=== PATIENT | male | born 1965 | race Caucasian/White ===

== ENCOUNTER 2017-12-22 11:40 | Inpatient (IN) | payer OTHER ==
[~2017-12-22] VITALS: Ht 167.6 cm; Wt 103.3 kg
[~2017-12-22 11:40] MED LIST: ASPI81TA28 PO; CALC500C70 PO; GABA-112 PO; INSDGI SC; LISI-729 PO; METO25TA56 PO; METO50TA16 PO; NVLGI SC; SIMV40TA2 PO; TRAM-10 PO; VITAMIN D3 PO
[2017-12-22] MEDS ORDERED: ACETAMINOPHEN 500 MG TAB PO STA (11:47)
--- NOTE | 2017-12-22 11:55 | EMERGENCY ROOM VISIT NOTE ---
History Report prepared by Travis: Joan Pratt Under the Supervision of: Reji MajanoO. First contact with patient: 11:43 Chief Complaint: SHORTNESS OF BREATH Stated Complaint: RESPIRATORY History of Present Illness The patient is a 52 year old male who presents to the Emergency Room with complaints of persistent shortness of breath. The patient states that he was feeling fine yesterday but began having shortness of breath this morning acutely. He states his symptoms are very significant. His shortness of breath is worsened with any exertion but also has difficulty lying flat. The patient has been noticing lower extremity edema recently which appears to be worsened. He states that he was shoveling snow a few days ago and had some exertional chest pain which resolved spontaneously. The patient states that he has had lower extremity edema for quite some time but is never had congestive heart failure or pulmonary edema to his knowledge. The patient states his blood sugars have been normal for him recently. He denies having any recent falls or injuries. He denies having any fever but does complain of a dry cough which is nonproductive. The patient presented to the emergency department by EMS. His initial pulse ox was 88% on room air. He was given nitroglycerin prior to arrival and was found to have a very elevated blood pressure. Source of History: patient Onset: this morning Position: other (global) Quality: other (shortness of breath ) Timing: other (persistent ) Modifying Factors (Worsening): exertion Associated Symptoms: + cough (dry cough and nonproductive), No fevers Note: Associated symptoms include: lower extremity edema Review of Systems See HPI for pertinent positives & negatives. A total of 10 systems reviewed and were otherwise negative. Past Medical & Surgical Medical Problems: (1) Acute CHF (2) Bronchitis (3) Diabetes (4) Hyperglycemia (5) Hypertension Family History Cancer Diabetes mellitus Gallbladder disease Heart disease Hypertension Kidney disease Lung disease Social History Smoking Status: Former Smoker Alcohol Use: none Drug Use: none Marital Status: single, in relationship Occupation Status: employed Current/Historical Medications Scheduled Aspirin (Aspirin Ec), 81 MG PO QPM Calcium/Vitamin D (Os-Felipe 500 Plus D), 2 TAB PO QPM Gabapentin (Neurontin), 200 MG PO BID Insulin Aspart (Novolog Flexpen), 35 UNITS SC TIDM Insulin Glargine (Lantus Solostar), 80 UNITS SC QPM Lisinopril (Prinivil), 10 MG PO DAILY Metoprolol Tartrate (Lopressor) (Lopressor), 50 MG PO QPM Simvastatin (Zocor), 20 MG PO QPM Scheduled PRN Tramadol (Ultram), 1 TAB PO TID PRN for Pain Allergies Coded Allergies: No Known Allergies (Verified , 09/07/16) Physical Exam Vital Signs Date Time Temp Pulse Resp B/P (MAP) Pulse Ox O2 Delivery O2 Flow Rate FiO2 12/22/17 14:45 72 17 12/22/17 14:31 180/93 12/22/17 14:15 71 20 96 12/22/17 14:01 161/93 12/22/17 13:45 71 12 95 12/22/17 13:42 71 177/101 95 Room Air 12/22/17 13:00 71 176/83 97 Room Air 12/22/17 12:30 72 16 168/91 97 Nasal Cannula 2.0 12/22/17 12:18 72 12/22/17 12:01 94 Nasal Cannula 2.0 12/22/17 11:58 94 Nasal Cannula 2.0 12/22/17 11:58 94 Nasal Cannula 2.0 12/22/17 11:55 36.8 86 20 90 Room Air Physical Exam GENERAL: Patient is awake alert in no acute distress patient is resting comfortably and showing no signs of anxiety EYES: The conjunctivae are clear. The pupils are round and reactive. EARS, NOSE, MOUTH AND THROAT: The nose is without any evidence of any deformity. Mucous membranes are moist tongue is midline NECK: The neck is nontender and supple. RESPIRATORY: Shallow respirations are noted. There are diminished breath sounds noted throughout. Rales are noted throughout both lung thomas. CARDIOVASCULAR: Regular rate and rhythm noted there no murmurs rubs or gallops normal S1 normal S2 GASTROINTESTINAL: The abdomen is soft. Bowel sounds are present in all quadrants. Abdomen is nontender MUSCULOSKELETAL/EXTREMITIES: There is no evidence of gross deformity full range of motion is noted in the hips and shoulders SKIN: There is no obvious evidence of any rash. Significant lower extremity edema was noted bilaterally. NEUROLOGIC: Patient is awake alert and oriented x3. Medical Decision & Procedures ER Provider Diagnostic Interpretation: Radiology results as stated below per my review and radiologist interpretation: CHEST ONE VIEW PORTABLE CLINICAL HISTORY: Shortness of breath COMPARISON STUDY: 06/23/2014 FINDINGS: The heart is borderline enlarged. There is mild diffuse elevation of the interstitium. There is no lobar consolidation. There are no pleural effusions.[ IMPRESSION: Mild diffuse elevation of the interstitium. This is likely secondary to either a bilateral interstitial inflammatory process, or mild cardiogenic pulmonary edema. Clinical and radiographic follow-up is recommended. Electronically signed by: Kayode Soto M.D. 12/22/2017 12:27 PM Dictated Date/Time: 12/22/2017 12:26 PM Laboratory Results 12/22/17 12:05 Red Blood Count 4.80, Mean Corpuscular Volume 84.4, Mean Corpuscular Hemoglobin 28.8, Mean Corpuscular Hemoglobin Concent 34.1, Mean Platelet Volume 10.4, Neutrophils (%) (Auto) 49.9, Lymphocytes (%) (Auto) 37.0, Monocytes (%) (Auto) 7.5, Eosinophils (%) (Auto) 4.5, Basophils (%) (Auto) 0.8, Neutrophils # (Auto) 3.55, Lymphocytes # (Auto) 2.63, Monocytes # (Auto) 0.53, Eosinophils # (Auto) 0.32, Basophils # (Auto) 0.06 12/22/17 12:05 12/22/17 14:55 Test 12/22/17 11:47 12/22/17 12:05 12/22/17 12:55 12/22/17 14:55 Creatine Kinase MB Ratio (0-3.0) White Blood Count 7.11 K/uL (4.8-10.8) Red Blood Count 4.80 M/uL (4.7-6.1) Hemoglobin 13.8 g/dL (14.0-18.0) Hematocrit 40.5 % (42-52) Mean Corpuscular Volume 84.4 fL (80-100) Mean Corpuscular Hemoglobin 28.8 pg (25-34) Mean Corpuscular Hemoglobin Concent 34.1 g/dl (32-36) Platelet Count 198 K/uL (130-400) Mean Platelet Volume 10.4 fL (7.4-10.4) Neutrophils (%) (Auto) 49.9 % Lymphocytes (%) (Auto) 37.0 % Monocytes (%) (Auto) 7.5 % Eosinophils (%) (Auto) 4.5 % Basophils (%) (Auto) 0.8 % Neutrophils # (Auto) 3.55 K/uL (1.4-6.5) Lymphocytes # (Auto) 2.63 K/uL (1.2-3.4) Monocytes # (Auto) 0.53 K/uL (0.11-0.59) Eosinophils # (Auto) 0.32 K/uL (0-0.5) Basophils # (Auto) 0.06 K/uL (0-0.2) RDW Standard Deviation 38.8 fL (36.4-46.3) RDW Coefficient of Variation 12.8 % (11.5-14.5) Immature Granulocyte % (Auto) 0.3 % Immature Granulocyte # (Auto) 0.02 K/uL (0.00-0.02) Venous Blood pH 7.36 (7.36-7.41) Venous Blood Partial Pressure CO2 50 mmHg (38.0-50.0) Venous Blood Partial Pressure O2 50 mmHg Venous Blood HCO3 28 mmol/L Venous Blood Oxygen Saturation 82.6 % Venous Blood Base Excess 1.5 mEq/L Anion Gap 3.0 mmol/L (3-11) Est Creatinine Clear Calc Drug Dose 109.9 ml/min Estimated GFR () 109.8 Estimated GFR (Non- 94.7 BUN/Creatinine Ratio 12.5 (10-20) Calcium Level 8.2 mg/dl (8.5-10.1) Total Bilirubin 0.6 mg/dl (0.2-1) Alanine Aminotransferase (ALT/SGPT) 30 U/L (12-78) Alkaline Phosphatase 102 U/L (45-117) Creatine Kinase MB 2.5 ng/ml (0.5-3.6) Troponin I < 0.015 ng/ml (0-0.045) Pro-B-Type Natriuretic Peptide 154 pg/ml (0-900) Total Protein 7.0 gm/dl (6.4-8.2) Albumin 3.4 gm/dl (3.4-5.0) Globulin 3.6 gm/dl (2.5-4.0) Albumin/Globulin Ratio 0.9 (0.9-2) Influenza Type A Antigen Neg for Influ A (NEG) Influenza Type B Antigen Neg for Influ B (NEG) Aspartate Amino Transf (AST/SGOT) 14 U/L (15-37) Total Creatine Kinase 69 U/L (39-308) Beta-Hydroxybutyric Acid 0.63 mg/dL (0.2-2.81) Laboratory results per my review. Medications Administered Medications (Trade) Dose Ordered Sig/Sky Route Start Time Stop Time Status Last Admin Dose Admin Acetaminophen (Tylenol Tab) 1,000 mg NOW STAT PO 12/22/17 11:47 12/22/17 11:48 DC 12/22/17 12:41 1,000 MG Nitroglycerin (Nitroglycerin 2% Oint) 0.5 inch NOW ONCE EXT 12/22/17 12:30 12/22/17 12:31 DC 12/22/17 12:41 0.5 INCH Furosemide (Lasix Inj) 40 mg NOW STAT IV 12/22/17 12:30 12/22/17 12:31 DC 12/22/17 12:42 40 MG ECG Indication: SOB/dyspnea Rate (beats per minute): 70 Rhythm: normal sinus Findings: no ectopy, other (no acute ST segments) Change: no significant change (06/06/16) Change: The patient's electrocardiogram was interpreted by me. ED Course 1140: The patient was evaluated in room C8. A complete history and physical examination were performed. 1147: Ordered Tylenol Tab 1000mg PO. 1230: Ordered Lasix Inj 40mg IV and Nitroglycerin 0.5inch. 1352: I discussed the patient's case with STEVIE Orellana. The patient will be evaluated for further management. Medical Decision Prior records/ancillary studies reviewed. Triage Nursing notes reviewed. Additional history obtained from the prehospital personnel. The patient's history was concerning for respiratory difficulties. Differential diagnosis: Etiologies such as infections, reactive airway disease, pneumonia, pneumothorax , COPD, CHF, cardiac ischemia, pulmonary embolism, musculoskeletal, gastrointestinal, as well as others were entertained. The patient is a 52-year-old male who presented to the emergency department for evaluation of difficulty breathing. The patient has a history of diabetes. He has been noticing lower extremity edema as well as orthopnea. The patient's history and physical exam appear to be consistent with pulmonary edema. He was treated with nitroglycerin as well as Lasix in the emergency department. Initially he was noted to have hypoxia by the prehospital personnel but after treatment and supplemental oxygen the patient's oxygen saturation was acceptable. I discussed patient's laboratory and radiographic studies with him. I also discussed his case with the on-call [facility] hospitalist group. They have agreed to evaluate the patient in the emergency department for further management and disposition. Medication Reconcilliation Current Medication List: was personally reviewed by me Blood Pressure Screening Patient's blood pressure: Elevated blood pressure Blood pressure disposition: Elevated BP felt to be situational Consults Time Called: 1352 Consulting Physician: STEVIE Orellana Returned Call: 1352 I discussed the patient's case with STEVIE Oerllana. The patient will be evaluated for further management. Impression Primary Impression: Pulmonary edema Additional Impressions: Hypoxia Hypertension Scribe Attestation The scribe's documentation has been prepared under my direction and personally reviewed by me in its entirety. I confirm that the note above accurately reflects all work, treatment, procedures, and medical decision making performed by me. Departure Information Dispostion Being Evaluated By Hospitalist Referrals Pita Azul C.R.N.P. (PCP) Forms HOME CARE DOCUMENTATION FORM, IMPORTANT VISIT INFORMATION Patient Instructions My [facility] Health Problem Qualifiers Primary Impression: Pulmonary edema Chronicity: acute Qualified Codes: J81.0 - Acute pulmonary edema Additional Impressions: Hypertension Hypertension type: unspecified Qualified Codes: I10 - Essential (primary) hypertension
[2017-12-22 12:22] LABS: BASO % 0.8 %; BASO ABS # 0.06 K/uL (0-0.2); EOS % 4.5 %; EOS ABS # 0.32 K/uL (0-0.5); HEMATOCRIT 40.5 % (42-52); HEMOGLOBIN 13.8 g/dL (14.0-18.0); IG# 0.02 K/uL (0.00-0.02); LYMPH ABS # 2.63 K/uL (1.2-3.4); MEAN CELL VOLUME 84.4 fL (80-100); MEAN CORPUSCULAR HEMOGLOBIN 28.8 pg (25-34); MEAN CORPUSCULAR HGB CONC 34.1 g/dl (32-36); MEAN PLATELET VOLUME 10.4 fL (7.4-10.4); MONO % 7.5 %; MONO ABS # 0.53 K/uL (0.11-0.59); NEUT % 49.9 %; NEUT ABS # 3.55 K/uL (1.4-6.5); PLATELET COUNT 198 K/uL (130-400); RED CELL DISTRIBUTION WIDTH CV 12.8 % (11.5-14.5); RED CELL DISTRIBUTION WIDTH SD 38.8 fL (36.4-46.3); WHITE BLOOD COUNT 7.11 K/uL (4.8-10.8)
--- NOTE | 2017-12-22 12:29 | DIAGNOSTIC IMAGING REPORT ---
CHEST ONE VIEW PORTABLE CLINICAL HISTORY: Shortness of breath COMPARISON STUDY: 06/23/2014 FINDINGS: The heart is borderline enlarged. There is mild diffuse elevation of the interstitium. There is no lobar consolidation. There are no pleural effusions.[ IMPRESSION: Mild diffuse elevation of the interstitium. This is likely secondary to either a bilateral interstitial inflammatory process, or mild cardiogenic pulmonary edema. Clinical and radiographic follow-up is recommended. Electronically signed by: Kayode Soto M.D. 12/22/2017 12:27 PM Dictated Date/Time: 12/22/2017 12:26 PM
[2017-12-22] MEDS ORDERED: FUROSEMIDE 40 MG/4 ML VIAL IV STA (12:30)
[2017-12-22] MEDS ORDERED: NITROGLYCERIN 2% OINTMENT 30GM TUBE EXT ONE ×2 (12:30→20:00)
[2017-12-22] MEDS ORDERED: SIMV20TA2 PO (12:33)
[2017-12-22] MEDS ORDERED: INSDGIPEN SC (12:33)
[2017-12-22] MEDS ORDERED: NVLGI/PEN SC (12:33)
[2017-12-22] MEDS ORDERED: LISI10TA PO (12:33)
[2017-12-22 13:08] LABS: ALBUMIN 3.4 gm/dl (3.4-5.0); ALKALINE PHOSPHATASE 102 U/L (45-117); ALT/SGPT 30 U/L (12-78); BLOOD UREA NITROGEN 12 mg/dl (7-18); CALCIUM 8.2 mg/dl (8.5-10.1); CARBON DIOXIDE 29 mmol/L (21-32); CKMB 2.5 ng/ml (0.5-3.6); CREATININE 0.93 mg/dl (0.60-1.40); GLUCOSE 267 mg/dl (70-99); SODIUM 135 mmol/L (136-145)
[2017-12-22 13:49] LABS: INFLUENZA B ANTIGEN Neg for Influ B (NEG)
[2017-12-22] MEDS ORDERED: ALUMINUM/MAGNESIUM/SIMETH (MAALOX MAX) 30 ML UDC PO PRN (15:00)
[2017-12-22] MEDS ORDERED: MAGNESIUM HYDROXIDE SUSP 30 ML UDC PO PRN (15:00)
[2017-12-22] MEDS ORDERED: ONDANSETRON INJ 2 MG/ML 2 ML VIAL IV PRN (15:00)
[2017-12-22 15:19] LABS: POTASSIUM 4.3 mmol/L (3.5-5.1)
[2017-12-22] MEDS ORDERED: GLUCOSE 10 TABS/TUBE PO PRN (15:30)
[2017-12-22] MEDS ORDERED: GLUCOSE 40% GEL 15 GM TUBE PO PRN (15:30)
[2017-12-22] MEDS ORDERED: GLUCAGON FOR INJ 1 MG VIAL SQ PRN (15:30)
[2017-12-22] MEDS ORDERED: DEXTROSE 50% 50 ML SYR IV PRN (15:30)
--- NOTE | 2017-12-22 15:42 | History and Physical ---
History & Physical Date & Time of Service: Dec 22, 2017 at 15:19 Chief Complaint: Respiratory Primary Care Physician: No Doctor, Assigned History of Present Illness Source: patient 52 y/o M Hx HTN, HPL, DM II. Pt states that he developed CP when shoveling snow a few days ago. This AM he woke up and felt very SOB. He denies CP, N/V, palpitations or diaphoresis. He has not had a cough or fevers. The pt's oxygen saturation on arrival to the ER was 88%. His SBP was > 180. Both improved with administration of Lasix. Initial CXR may be consistent with CHF. He states that he has been taking Lasix intermittently, although not recently , for LE edema which has developed over the last 2 months. We cannot assess his volume status clinically due to his habitus. Past Medical/Surgical History 1) HTN 2) HPL 3) DM II 4) Obese Family History Cancer Diabetes mellitus Gallbladder disease Heart disease Hypertension Kidney disease Lung disease Both parents due to pneumonia and sepsis - father had lung CA Social History Smoking Status: Former Smoker Drug Use: none Marital Status: single, in relationship Housing status: lives with family Occupational Status: employed Immunizations History of Influenza Vaccine: No History of Tetanus Vaccine?: Yes History of Pneumococcal: No History of Hepatitis B Vaccine: No Multi-Drug Resistant Organisms History of MDRO: No Allergies Coded Allergies: No Known Allergies (Verified , 09/07/16) Home Medications Scheduled Aspirin (Aspirin Ec), 81 MG PO QPM Calcium/Vitamin D (Os-Felipe 500 Plus D), 2 TAB PO QPM Gabapentin (Neurontin), 200 MG PO BID Insulin Aspart (Novolog Flexpen), 35 UNITS SC TIDM Insulin Glargine (Lantus Solostar), 80 UNITS SC QPM Lisinopril (Prinivil), 10 MG PO DAILY Metoprolol Tartrate (Lopressor) (Lopressor), 50 MG PO QPM Simvastatin (Zocor), 20 MG PO QPM Scheduled PRN Tramadol (Ultram), 1 TAB PO TID PRN for Pain Review of Systems Constitutional: No fever, No chills, No sweats Eyes: No worsening of vision ENT: No hearing loss, No nasal symptoms Respiratory: + shortness of breath, + dyspnea on exertion, No cough, No sputum , No wheezing Cardiovascular: No chest pain, No orthopnea, No PND Abdomen: No pain, No nausea, No vomiting Musculoskeletal: + problem reported (LE edema), No joint pain Genitourinary - Male: No hematuria, No dysuria Neurologic: No memory loss, No paralysis, No weakness Psychiatric: No depression symptoms Endocrine: No fatigue Hematologic / Lymphatic: No abnormal bleeding/bruising Integumentary: No rash Allergic / Immunologic: No environmental allergies Physical Exam Vital Signs Date Time Temp Pulse Resp B/P (MAP) Pulse Ox O2 Delivery O2 Flow Rate FiO2 12/22/17 13:42 71 177/101 95 Room Air 12/22/17 13:00 71 176/83 97 Room Air 12/22/17 12:30 72 16 168/91 97 Nasal Cannula 2.0 12/22/17 12:18 72 12/22/17 12:01 94 Nasal Cannula 2.0 12/22/17 11:58 94 Nasal Cannula 2.0 12/22/17 11:58 94 Nasal Cannula 2.0 12/22/17 11:55 36.8 86 20 90 Room Air General Appearance: WD/WN Head: normocephalic Eyes: normal inspection ENT: normal ENT inspection, pharynx normal Neck: supple, + pertinent finding (cannot evaluate JVD due to habitus) Respiratory/Chest: chest non-tender, lungs clear, normal breath sounds Cardiovascular: regular rate, rhythm, no edema, no gallop Abdomen/GI: normal bowel sounds, non tender, soft Back: normal inspection, no CVA tenderness Extremities/Musculoskelatal: normal inspection, no calf tenderness, normal capillary refill, normal range of motion, + pedal edema Neurologic/Psych: hand clerical verifier II-XII nml as tested, no motor/sensory deficits, alert, oriented x 3 Skin: normal color Diagnostics Laboratory Results Results Past 24 Hours Test 12/22/17 11:47 12/22/17 12:05 12/22/17 12:55 12/22/17 13:10 Range/Units Creatine Kinase MB Ratio 0-3.0 White Blood Count 7.11 4.8-10.8 K/uL Red Blood Count 4.80 4.7-6.1 M/uL Hemoglobin 13.8 14.0-18.0 g/dL Hematocrit 40.5 42-52 % Mean Corpuscular Volume 84.4 80-100 fL Mean Corpuscular Hemoglobin 28.8 25-34 pg Mean Corpuscular Hemoglobin Concent 34.1 32-36 g/dl Platelet Count 198 130-400 K/uL Mean Platelet Volume 10.4 7.4-10.4 fL Neutrophils (%) (Auto) 49.9 % Lymphocytes (%) (Auto) 37.0 % Monocytes (%) (Auto) 7.5 % Eosinophils (%) (Auto) 4.5 % Basophils (%) (Auto) 0.8 % Neutrophils # (Auto) 3.55 1.4-6.5 K/uL Lymphocytes # (Auto) 2.63 1.2-3.4 K/uL Monocytes # (Auto) 0.53 0.11-0.59 K/uL Eosinophils # (Auto) 0.32 0-0.5 K/uL Basophils # (Auto) 0.06 0-0.2 K/uL RDW Standard Deviation 38.8 36.4-46.3 fL RDW Coefficient of Variation 12.8 11.5-14.5 % Immature Granulocyte % (Auto) 0.3 % Immature Granulocyte # (Auto) 0.02 0.00-0.02 K/uL Venous Blood pH 7.36 7.36-7.41 Venous Blood Partial Pressure CO2 50 38.0-50.0 mmHg Venous Blood Partial Pressure O2 50 mmHg Venous Blood HCO3 28 mmol/L Venous Blood Oxygen Saturation 82.6 % Venous Blood Base Excess 1.5 mEq/L Sodium Level 135 136-145 mmol/L Potassium Level 3.5-5.1 mmol/L Chloride Level 103 98-107 mmol/L Carbon Dioxide Level 29 21-32 mmol/L Anion Gap 3.0 3-11 mmol/L Blood Urea Nitrogen 12 7-18 mg/dl Creatinine 0.93 0.60-1.40 mg/dl Est Creatinine Clear Calc Drug Dose 109.9 ml/min Estimated GFR () 109.8 Estimated GFR (Non- 94.7 BUN/Creatinine Ratio 12.5 10-20 Random Glucose 267 70-99 mg/dl Calcium Level 8.2 8.5-10.1 mg/dl Total Bilirubin 0.6 0.2-1 mg/dl Aspartate Amino Transf (AST/SGOT) 15-37 U/L Alanine Aminotransferase (ALT/SGPT) 30 12-78 U/L Alkaline Phosphatase 102 45-117 U/L Total Creatine Kinase 39-308 U/L Creatine Kinase MB 2.5 0.5-3.6 ng/ml Troponin I < 0.015 0-0.045 ng/ml Pro-B-Type Natriuretic Peptide 154 0-900 pg/ml Total Protein 7.0 6.4-8.2 gm/dl Albumin 3.4 3.4-5.0 gm/dl Globulin 3.6 2.5-4.0 gm/dl Albumin/Globulin Ratio 0.9 0.9-2 Beta-Hydroxybutyric Acid 0.2-2.81 mg/dL Influenza Type A Antigen Neg for Influ A NEG Influenza Type B Antigen Neg for Influ B NEG Test 12/22/17 14:55 Range/Units Potassium Level 4.3 3.5-5.1 mmol/L Diagnostic Radiology CXR: possible pulmonary edema EKG NSR, L axis Impression Assessment and Plan 52 y/o M Hx HTN, HPL, DM II. Pt states that he developed CP when shoveling snow a few days ago. This AM he woke up and felt very SOB. He denies CP, N/V, palpitations or diaphoresis. He has not had a cough or fevers. The pt's oxygen saturation on arrival to the ER was 88%. His SBP was > 180. Both improved with administration of Lasix. Initial CXR may be consistent with CHF. He states that he has been taking Lasix intermittently, although not recently , for LE edema which has developed over the last 2 months. We cannot assess his volume status clinically due to his habitus. 1) SOB - suspect new onset CHF - pt provided with 40mg Lasix in ER - will monitor I/O and daily weights. Echo and cardiology evaluation are pending. A CT chest should be considered if he does not markedly improve with diuresis as he does have an extensive smoking history. 2) DM II - placed on a SS 3) HTN - cont Lisinopril, Metoprolol 4) HPL - cont Statin 5) Pt should be advised on weight loss prior to DC Full code - Lovenox prophylaxis Total time for this admit including review of labs, meds, imaging, EKG - discussion with pt and ER attending - 35 min Level of Care Telemetry Resuscitation Status FULL RESUSCITATION VTE Prophylaxis VTE Risk Assessment Done? Y/N: Yes Risk Level: Low Given or contraindicated: Enoxaparin (Lovenox)SQ
[2017-12-22] MEDS: INSULIN ASPART 100 UNITS/ML 3 ML PEN SC SCH ×2 (16:00→21:26)
[2017-12-22 16:33] LABS: INR 0.9 (0.9-1.1)
[2017-12-22 18:59] VITALS: BP 199/97; PULSE 72; TEMP 36.5; O2SAT 94
[2017-12-22 20:15] VITALS: BP 199/97; PULSE 72; TEMP 36.5; BMI 39.5
[2017-12-22] MEDS ORDERED: INSULIN GLARGINE SOLOSTAR 100 UNITS/ML 3 ML PEN SC SCH (21:00)
[2017-12-22] MEDS: GABAPENTIN 100 MG CAP PO SCH (21:14)
[2017-12-22] MEDS: ACETAMINOPHEN 325 MG TAB PO PRN (21:14)
[2017-12-22] MEDS: ASPIRIN 81 MG ECTAB PO SCH (21:14)
[2017-12-22] MEDS: METOPROLOL TARTRATE 50 MG TAB PO SCH (21:15)
[2017-12-22] MEDS: SIMVASTATIN 20 MG TAB PO SCH (21:15)
[2017-12-22] MEDS: ENOXAPARIN 40 MG/0.4 ML SYR SC SCH (22:20)
[2017-12-22 23:45] VITALS: BP 182/94; PULSE 67; TEMP 36.8; O2SAT 96
[2017-12-22] MEDS: TRAMADOL HCL 50 MG TAB PO PRN (23:45)
[2017-12-23] VITALS (12 sets, daily range): BP systolic 154–196; BP diastolic 76–96; PULSE 65–88; TEMP 36.4–36.7; O2SAT 94–96
[2017-12-23] MEDS: HydrALAZINE HCL 20 MG/ML VIAL IV. PRN ×3 (02:32→17:29)
[2017-12-23] MEDS: ACETAMINOPHEN 325 MG TAB PO PRN ×2 (05:31→18:24)
[2017-12-23] MEDS ORDERED: OPTIRAY 320 IV PRN (08:30)
[2017-12-23 08:38] LABS: HEMATOCRIT 42.9 % (42-52); HEMOGLOBIN 14.8 g/dL (14.0-18.0); MEAN CELL VOLUME 82.8 fL (80-100); MEAN CORPUSCULAR HEMOGLOBIN 28.6 pg (25-34); MEAN CORPUSCULAR HGB CONC 34.5 g/dl (32-36); MEAN PLATELET VOLUME 10.5 fL (7.4-10.4); PLATELET COUNT 236 K/uL (130-400); RED CELL DISTRIBUTION WIDTH CV 12.7 % (11.5-14.5); WHITE BLOOD COUNT 9.05 K/uL (4.8-10.8)
[2017-12-23] MEDS: GABAPENTIN 100 MG CAP PO SCH ×2 (08:40→21:13)
[2017-12-23] MEDS: INSULIN ASPART 100 UNITS/ML 3 ML PEN SC SCH ×4 (08:45→21:18)
[2017-12-23] MEDS ORDERED: LISINOPRIL 10 MG TAB PO SCH (09:00)
[2017-12-23 09:02] LABS: CALCIUM 8.8 mg/dl (8.5-10.1); CREATININE 0.84 mg/dl (0.60-1.40); POTASSIUM 3.8 mmol/L (3.5-5.1)
--- NOTE | 2017-12-23 09:45 | DIAGNOSTIC IMAGING REPORT ---
(CHEST FOR PE) ANGIO WITH CLINICAL HISTORY: 52 years-old Male presenting with ^acute SOB, hypoxia, r/o PE. TECHNIQUE: Multidetector CT angiography of the chest was performed after administration of intravenous contrast. 3-D volumetric and/or maximum intensity projection (MIP) images were subsequently reconstructed for review. IV contrast: Optiray 320. A dose lowering technique was used consistent with the principles of ALARA (as low as reasonably achievable). COMPARISON: Chest x-ray performed the previous day. CT DOSE (mGy.cm): The estimated cumulative dose is 481.40 mGy.cm. FINDINGS: Teller Head topogram: Unremarkable. Pulmonary vasculature: The study is adequate for assessment of the pulmonary vascular tree. No filling defect within the pulmonary arteries to suggest embolus. Main pulmonary artery is not enlarged. Gas noted within the main pulmonary artery related to injection. No flattening of the interventricular septum. No intracardiac filling defect. No reflux of contrast into the hepatic veins. Remaining chest: On soft tissue windows, normal thyroid. Mild bilateral gynecomastia. No axillary, supraclavicular, hilar, or mediastinal lymphadenopathy. Normal aorta. Normal heart size. No pericardial or pleural effusion. Borderline hepatic steatosis. On lung windows, minimal dependent changes likely atelectasis. Trace emphysematous changes at the apices. No other focal nodule or infiltrate. Airways patent. On bone windows, degenerative changes of the spine. IMPRESSION: 1. No evidence of pulmonary embolus. No acute intrathoracic pathology. 2. Trace emphysema. 3. Bibasilar atelectasis. 4. Hepatic steatosis. Electronically signed by: Mehdi Quesada M.D. 12/23/2017 9:43 AM Dictated Date/Time: 12/23/2017 9:39 AM
[2017-12-23] MEDS ORDERED: FUROSEMIDE INJ 40 MG in SYRINGE 0 ML IV ONE ×2 (11:40→18:30)
--- NOTE | 2017-12-23 11:41 | Hospitalist Progress Note ---
Hospitalist Progress Note Date of Service Dec 23, 2017. Subjective Pt evaluation today including: conversation w/ patient, conversation w/ family ( at the bedside), physical exam, chart review, lab review, review of inpatient medication list Patient reports he is feeling less short of breath since admission although he is still not able to lie flat without having shortness of breath. Denies chest pain but did have what sounds like angina with shoveling snow a few days ago that lasted 10 minutes and went away with rest. He has never had that before. He has never had any cardiac evaluation. He was a [id number] smoker and quit 3 years ago. He does not carry a diagnosis of COPD but does note himself to wheeze at times. He is also fairly certain that he has WHIT-he reports snoring and apnea with his confirming at the bedside. He has never had a sleep study. He also reports 5 days a week, for lunch at work he will eat 2 sandwiches that consist of Bologna, deep fried turkey, and other lunch meats. All Other Systems: Reviewed and Negative Objective Vital Signs Date Time Temp Pulse Resp B/P (MAP) Pulse Ox O2 Delivery O2 Flow Rate FiO2 12/23/17 08:08 36.5 65 20 184/83 (116) 96 Room Air 12/23/17 08:00 95 Room Air 12/23/17 04:05 95 Room Air 12/23/17 01:10 66 177/86 (116) 12/23/17 00:05 95 Room Air 12/22/17 23:45 36.8 67 20 182/94 (123) 96 Room Air 12/22/17 20:16 Room Air 94 12/22/17 20:15 36.5 72 18 199/97 12/22/17 18:59 36.5 72 18 199/97 (131) 94 Room Air 12/22/17 18:48 75 199/92 95 12/22/17 17:45 66 171/74 96 Room Air 12/22/17 15:45 73 26 12/22/17 15:15 71 18 12/22/17 14:45 72 17 12/22/17 14:31 180/93 12/22/17 14:15 71 20 96 12/22/17 14:01 161/93 12/22/17 13:45 71 12 95 12/22/17 13:42 71 177/101 95 Room Air 12/22/17 13:00 71 176/83 97 Room Air 12/22/17 12:30 72 16 168/91 97 Nasal Cannula 2.0 12/22/17 12:18 72 12/22/17 12:01 94 Nasal Cannula 2.0 12/22/17 11:58 94 Nasal Cannula 2.0 12/22/17 11:58 94 Nasal Cannula 2.0 12/22/17 11:55 36.8 86 20 90 Room Air Physical Exam General Appearance: WD/WN, no apparent distress, + obese Eyes: normal inspection, sclerae normal ENT: hearing grossly normal Neck: thyroid normal, no carotid bruits, trachea midline, + JVD (At 7-8 cm with positive hepatojugular reflex) Respiratory/Chest: lungs clear, normal breath sounds, no respiratory distress, no accessory muscle use Cardiovascular: regular rate, rhythm, no murmur, + pertinent finding (2-3+ pitting edema to the thighs of the lower extremities bilaterally) Abdomen: normal bowel sounds, non tender, soft (And obese) Extremities: non-tender, no calf tenderness, + swelling (As above) Neurologic/Psychiatric: alert, normal mood/affect, oriented x 3 Skin: + rash (Diffuse macular lesions that are mildly erythematous with white plaque and scale consistent with psoriasis on the extremities and face) Laboratory Results Last 24 Hours Test 12/22/17 11:47 12/22/17 12:05 12/22/17 12:55 12/22/17 13:10 Creatine Kinase MB Ratio White Blood Count 7.11 K/uL Red Blood Count 4.80 M/uL Hemoglobin 13.8 g/dL Hematocrit 40.5 % Mean Corpuscular Volume 84.4 fL Mean Corpuscular Hemoglobin 28.8 pg Mean Corpuscular Hemoglobin Concent 34.1 g/dl Platelet Count 198 K/uL Mean Platelet Volume 10.4 fL Neutrophils (%) (Auto) 49.9 % Lymphocytes (%) (Auto) 37.0 % Monocytes (%) (Auto) 7.5 % Eosinophils (%) (Auto) 4.5 % Basophils (%) (Auto) 0.8 % Neutrophils # (Auto) 3.55 K/uL Lymphocytes # (Auto) 2.63 K/uL Monocytes # (Auto) 0.53 K/uL Eosinophils # (Auto) 0.32 K/uL Basophils # (Auto) 0.06 K/uL RDW Standard Deviation 38.8 fL RDW Coefficient of Variation 12.8 % Immature Granulocyte % (Auto) 0.3 % Immature Granulocyte # (Auto) 0.02 K/uL Venous Blood pH 7.36 Venous Blood Partial Pressure CO2 50 mmHg Venous Blood Partial Pressure O2 50 mmHg Venous Blood HCO3 28 mmol/L Venous Blood Oxygen Saturation 82.6 % Venous Blood Base Excess 1.5 mEq/L Sodium Level 135 mmol/L Potassium Level mmol/L mmol/L Chloride Level 103 mmol/L Carbon Dioxide Level 29 mmol/L Anion Gap 3.0 mmol/L Blood Urea Nitrogen 12 mg/dl Creatinine 0.93 mg/dl Est Creatinine Clear Calc Drug Dose 109.9 ml/min Estimated GFR () 109.8 Estimated GFR (Non- 94.7 BUN/Creatinine Ratio 12.5 Random Glucose 267 mg/dl Calcium Level 8.2 mg/dl Total Bilirubin 0.6 mg/dl Aspartate Amino Transf (AST/SGOT) U/L U/L Alanine Aminotransferase (ALT/SGPT) 30 U/L Alkaline Phosphatase 102 U/L Total Creatine Kinase U/L U/L Creatine Kinase MB 2.5 ng/ml Troponin I < 0.015 ng/ml Pro-B-Type Natriuretic Peptide 154 pg/ml Total Protein 7.0 gm/dl Albumin 3.4 gm/dl Globulin 3.6 gm/dl Albumin/Globulin Ratio 0.9 Beta-Hydroxybutyric Acid mg/dL mg/dL Influenza Type A Antigen Neg for Influ A Influenza Type B Antigen Neg for Influ B Test 12/22/17 14:55 12/22/17 15:55 12/22/17 20:30 12/23/17 07:46 Potassium Level 4.3 mmol/L Aspartate Amino Transf (AST/SGOT) 14 U/L Total Creatine Kinase 69 U/L Beta-Hydroxybutyric Acid 0.63 mg/dL Prothrombin Time 9.9 SECONDS Prothromb Time International Ratio 0.9 Activated Partial Thromboplast Time 24.0 SECONDS Partial Thromboplastin Ratio 0.9 Bedside Glucose 236 mg/dl 193 mg/dl Test 12/23/17 08:02 12/23/17 08:15 12/23/17 11:24 White Blood Count 9.05 K/uL Red Blood Count 5.18 M/uL Hemoglobin 14.8 g/dL Hematocrit 42.9 % Mean Corpuscular Volume 82.8 fL Mean Corpuscular Hemoglobin 28.6 pg Mean Corpuscular Hemoglobin Concent 34.5 g/dl RDW Standard Deviation 38.0 fL RDW Coefficient of Variation 12.7 % Platelet Count 236 K/uL Mean Platelet Volume 10.5 fL Sodium Level 135 mmol/L Potassium Level 3.8 mmol/L Chloride Level 99 mmol/L Carbon Dioxide Level 28 mmol/L Anion Gap 8.0 mmol/L Blood Urea Nitrogen 12 mg/dl Creatinine 0.84 mg/dl Est Creatinine Clear Calc Drug Dose 119.5 ml/min Estimated GFR () 117.5 Estimated GFR (Non- 101.4 BUN/Creatinine Ratio 14.6 Random Glucose 187 mg/dl Calcium Level 8.8 mg/dl D-Dimer 420 ug/L FEU Assessment and Plan This patient is a 52 y/o M with a history of HTN, HPL, suspected WHIT, previous [id number] smoker, and uncontrolled DM II. Pt states that he developed CP when shoveling snow a few days ago that was substernal, nonradiating, not associated with shortness of breath, that was relieved with rest. On the morning of admission, he woke up and felt very SOB while lying flat that improved with sitting up. He denies CP, N/V, palpitations or diaphoresis. He has not had a cough or fevers. The pt's oxygen saturation on arrival to the ER was 88%. His SBP was > 180. Both improved with administration of Lasix 1. Initial CXR may be consistent with CHF. He states that he has been taking Lasix intermittently in the last few months for worsening lower extremity edema. 1) Orthopnea/worsening lower extremity edema/acute hypoxemic respiratory failure -suspect new onset CHF -he also had what sounds like possible unstable angina several days ago when shoveling snow. He has had some relief with 40mg Lasix in ER 1, and is now off supplemental oxygen. CTA of the chest performed today was negative for PE and pneumonia, did show mild emphysematous changes at the apices and mild bibasilar atelectasis. Troponin was negative 1, ECG within normal limits. No events other than normal sinus rhythm on telemetry so far -Will monitor I/O and daily weights, changed to low-sodium diet -Follow-up on echo results -Cardiology consultation requested and appreciated a CT chest should be considered if he does not markedly improve with diuresis as he does have an extensive smoking history. -We will give Lasix 40 mg IV 1 now -Given the anginal symptoms a few days ago, he will need an ischemic eval for risk stratification given his multiple risk factors-this should be delayed until acute suspected CHF is improved 2) DM II uncontrolled, on long-term insulin-with hyperglycemia here--he reports his most recent hemoglobin A1c as an outpatient was 13% about 2 months ago. He has been more compliant with his insulin regimen since then. -Increase Lantus to 84 units for tonight once daily-I will not split it to twice daily as he has had great difficulty with compliance in the past and I feel this would be a harder regimen for him -Add carb coverage and lower the correction factor with sliding scale insulin with meals -Check hemoglobin A1c 3) HTN -BP's are elevated here -cont Lisinopril, Metoprolol -Lasix should help -IV hydralazine as needed -After echocardiogram result is back, will optimally manage medications based on whether he has heart failure or not 4) HPL - cont Statin 5) obesity, BMI 38.2 -Pt should be advised on weight loss prior to DC 6) suspected WHIT-seems likely given witnessed apneas and snoring, along with body habitus-awaiting echocardiogram to see about pulmonary hypertension -We will check overnight oximetry prior to discharge -Will need formal sleep study as an outpatient Full code - Lovenox prophylaxis Disposition-remain on telemetry
[2017-12-23] MEDS ORDERED: POTASSIUM CHLORIDE 10 MEQ TABCR PO STA (11:46)
[2017-12-23] MEDS: TRAMADOL HCL 50 MG TAB PO PRN (12:07)
[2017-12-23 12:22] LABS: HEMOGLOBIN A1C 9.7 % (4.5-5.6)
--- NOTE | 2017-12-23 14:52 | CARDIOLOGY CONSULTATION ---
DATE OF CONSULTATION: 12/23/2017 PERTINENT HISTORY: Mr. Swartz is a 52-year-old male admitted yesterday with hypervolemia. This consultation was ordered to assist in his cardiac management. The patient claims he was in his usual state of health until 2 days prior to presentation. After shoveling some snow and ice, he noticed substernal chest discomfort which lasted for approximately 15 minutes. He did not have other associated symptoms such as shortness of breath, nausea, vomiting, or diaphoresis. There is no radiation of his discomfort. Of the day of presentation, the patient awoke at approximately 10:30 a.m. He was significantly short of breath; therefore, presented to the Emergency Room for further care. On arrival here, he received an injection of Lasix and had a significant diuresis and improvement in his complaints of dyspnea. The patient has never known of a cardiac event. He has never experienced exertional angina pectoris. He further denies syncope, presyncope, PND, orthopnea, palpitations, lower extremity edema, and claudication. He does admit to non compliance with a low salt diet. Medications reviewed in detail. REVIEW OF SYSTEMS: A 10 point review of systems was negative except for that described above. PAST MEDICAL HISTORY: 1. Hypertension. 2. Mild left ventricular hypertrophy. 3. Diastolic dysfunction. 4. Hypercholesterolemia. 5. Diabetes mellitus. 6. Obesity. MEDICATIONS: 1. Lasix 40 mg IV x1. 2. Metoprolol tartrate 50 mg q.p.m. 3. Lisinopril 10 mg daily. 4. Zocor 20 mg at bedtime. 5. Neurontin 200 mg b.i.d. 6. Aspirin 81 mg per day. 7. Os-Felipe 2 tablets q.p.m. ALLERGIES: None. SOCIAL HISTORY: The patient is single, lives with a significant other. Has a [id number] history of tobacco use, but quit 3 years ago. Does not use alcohol. FAMILY HISTORY: Father from lung carcinoma. Mother from complications of pneumonia. No early coronary artery disease. REVIEW OF SYSTEMS: Ten point review of systems is negative except for that described above. PHYSICAL EXAMINATION: GENERAL: This is an obese white male seated in bed without complaints. VITAL SIGNS: Blood pressure is 196/96 with a regular pulse of 70. Respiratory rate is 20. The patient is afebrile at 36.4 degrees Celsius. Saturations 96% on room air. HEENT: Negative. NECK: Supple with full carotid upstrokes. There are no carotid bruits. Jugular venous pressure is flat at 90 degrees. There is no thyromegaly. CARDIOVASCULAR: Reveals a regular rhythm with normal S1 and S2. Heart sounds are distant. No obvious murmurs. LUNGS: Clear without rales, rhonchi, or wheezes. ABDOMEN: Soft, nontender without bruits. EXTREMITIES: Reveal intact radial artery pulses bilaterally. There is trace pretibial edema is noted. DATA: CBC notes hemoglobin 14.8, hematocrit 42.9, white count 9.05; glucose 236. Electrolytes note a sodium of 135, potassium 3.8, chloride 99, bicarbonate 28, BUN 12, creatinine 0.84, glucose 184. Troponin I level is undetectable at less than 0.015. BNP is normal at 154. EKG notes sinus rhythm with a leftward axis. Echocardiogram notes normal left ventricular systolic function without wall motion abnormality. Ejection fraction is 55-60%. There is mild LVH with evidence of diastolic dysfunction. No valvular heart disease. CT scan of the chest fails to show pulmonary embolism or dissection. Chest x-ray is underpenetrated, but shows no acute disease. IMPRESSION: Mr. Swartz was admitted with hypervolemia and shortness of breath. I do not feel this truly represents congestive heart failure as his BNP is completely normal. He does admit to noncompliance with a low salt diet. It would be reasonable to consider an outpatient stress test to rule out ischemic coronary disease as he develops chest discomfort after physical exertion. Besides following a low salt diet, it may be important to include a diuretic in his outpatient medical regimen. PLAN: 1. Agree with intravenous diuresis. 2. May need a daily diuretic as an outpatient. 3. Can decrease lisinopril if needed for blood pressure control. 4. Could consider outpatient stress test. 5. Further recommendation depending his clinical course. DELVIS
--- NOTE | 2017-12-23 16:06 | ECHOCARDIOGRAM REPORT ---
*NOTICE TO RECEIVING DEMOCRAT AGENCY This information is strictly Confidential and protected under [place] law. [place] law prohibits you from making any further disclosure of this information unless further disclosure is expressly permitted by the written consent of the person to whom it pertains or is authorized by law. A general authorization for the release of medical or other information is not sufficient for this purpose. Hospital accepts no responsibility if the information is made available to any other person, INCLUDING THE PATIENT. Interpretation Summary * Name: BING REYNOLDS Study Date: 12/23/2017 06:55 AM BP: 177/86 mmHg * Patient Location: [facility]\S\N280\S\1 HR: 69 * : 1965 (M/d/yyyy) Gender: Male Height: 66 in * Age: 52 yrs Ethnicity: [place] Weight: 244 lb * Ordering Physician: Wing Loera * Referring Physician: Self, Referred * Performed By: Demarcus Hernández RDCS * * Reason For Study: CHF * BSA: 2.2 m2 * -- Conclusions -- * Left ventricular systolic function is normal. * No regional wall motion abnormalities noted. * Ejection Fraction = 55-60%. * There is mild concentric left ventricular hypertrophy. * Diastolic dysfunction, Grade II (pseudonormalization pattern). * No significant valvular pathology. Procedure Details * A complete two-dimensional transthoracic echocardiogram was performed (2D, M-mode, Doppler and color flow Doppler). * The study was technically adequate. Left Ventricle * The left ventricle is normal in size. * There is mild concentric left ventricular hypertrophy. * Ejection Fraction = 55-60%. * Left ventricular systolic function is normal. * No regional wall motion abnormalities noted. Right Ventricle * The right ventricle is grossly normal size. * The right ventricular systolic function is normal. Atria * The left atrium is mildly dilated. * Right atrial size is normal. * No ASD detected; PFO is not assessed. Mitral Valve * The mitral valve anatomy is normal. * There is no mitral valve stenosis. * Significant mitral regurgitation is absent. Tricuspid Valve * The tricuspid valve anatomy is normal. * There is no tricuspid stenosis. * Significant tricuspid regurgitation is absent. Aortic Valve * The aortic valve is normal in structure and function. * No hemodynamically significant valvular aortic stenosis. * No aortic regurgitation is present. Pulmonic Valve * The pulmonary valve is not well seen, but the Doppler examination is normal without significant regurgitation or stenosis. Great Vessels * The aortic root is normal size. * The pulmonary is not well visualized. Pericardium/Pleural * There is no pericardial effusion. Great Vessels * Inferior vena cava not well visualized. Left Ventricular Diastolic Function * Diastolic dysfunction, Grade II (pseudonormalization pattern). MMode 2D Measurements and Calculations IVSd 1.3 cm IVSs 1.7 cm LVIDd 5.0 cm LVIDs 3.2 cm LVPWd 1.2 cm LVPWs 1.9 cm IVS/LVPW 1.1 FS 34.9 % EDV(Teich) 116.6 ml ESV(Teich) 42.1 ml EF(Teich) 63.9 % EDV(cubed) 122.8 ml ESV(cubed) 33.9 ml EF(cubed) 72.4 % % IVS thick 33.8 % % LVPW thick 65.1 % LV mass(C)d 235.8 grams LV mass(C)dI 108.4 grams/m\S\2 LV mass(C)s 240.3 grams LV mass(C)sI 110.4 grams/m\S\2 SV(Teich) 74.5 ml SI(Teich) 34.2 ml/m\S\2 SV(cubed) 88.9 ml SI(cubed) 40.8 ml/m\S\2 EPSS 0.81 cm Ao root diam 3.4 cm Ao root area 9.2 cm\S\2 ACS 2.0 cm LA dimension 4.1 cm asc Aorta Diam 3.3 cm LA/Ao 1.2 LVOT diam 2.0 cm LVOT area 3.2 cm\S\2 LVAd ap4 27.8 cm\S\2 LVLd ap4 9.7 cm EDV(MOD-sp4) 68.5 ml EDV(sp4-el) 68.1 ml LVAs ap4 15.0 cm\S\2 LVLs ap4 7.4 cm ESV(MOD-sp4) 26.6 ml ESV(sp4-el) 25.5 ml EF(MOD-sp4) 61.2 % EF(sp4-el) 62.5 % LVAd ap2 25.7 cm\S\2 LVLd ap2 9.3 cm EDV(MOD-sp2) 60.7 ml EDV(sp2-el) 60.4 ml LVAs ap2 14.3 cm\S\2 LVLs ap2 7.8 cm ESV(MOD-sp2) 23.7 ml ESV(sp2-el) 22.4 ml EF(MOD-sp2) 61.0 % EF(sp2-el) 62.9 % LVLd %diff -3.90 % EDV(MOD-bp) 65.1 ml LVLs %diff 4.5 % ESV(MOD-bp) 25.5 ml EF(MOD-bp) 60.9 % SV(MOD-sp4) 41.9 ml SI(MOD-sp4) 19.3 ml/m\S\2 SV(MOD-sp2) 37.0 ml SI(MOD-sp2) 17.0 ml/m\S\2 SV(MOD-bp) 39.6 ml SI(MOD-bp) 18.2 ml/m\S\2 SV(sp4-el) 42.6 ml SI(sp4-el) 19.6 ml/m\S\2 SV(sp2-el) 38.0 ml SI(sp2-el) 17.5 ml/m\S\2 Doppler Measurements and Calculations MV E max mau 91.3 cm/sec MV A max mau 81.0 cm/sec MV E/A 1.1 MV dec time 0.19 sec Ao V2 max 104.9 cm/sec Ao max PG 4.4 mmHg Ao max PG (full) 0.83 mmHg MARK(V,A) 2.8 cm\S\2 MARK(V,D) 2.8 cm\S\2 LV V1 max PG 3.6 mmHg LV V1 max 94.5 cm/sec PA V2 max 91.5 cm/sec PA max PG 3.3 mmHg PA acc slope 481.4 cm/sec\S\2 PA acc time 0.14 sec PA pr(Accel) 16.5 mmHg
[2017-12-23] MEDS: ENOXAPARIN 40 MG/0.4 ML SYR SC SCH (21:11)
[2017-12-23] MEDS: ASPIRIN 81 MG ECTAB PO SCH (21:12)
[2017-12-23] MEDS: SIMVASTATIN 20 MG TAB PO SCH (21:13)
[2017-12-23] MEDS: METOPROLOL TARTRATE 50 MG TAB PO SCH (21:13)
[2017-12-23] MEDS: INSULIN GLARGINE SOLOSTAR 100 UNITS/ML 3 ML PEN SC SCH (21:18)
[2017-12-24] VITALS (10 sets, daily range): BP systolic 111–152; BP diastolic 69–89; PULSE 52–90; TEMP 36.7–37; O2SAT 95–97
[2017-12-24] MEDS: LISINOPRIL 20 MG TAB PO SCH (08:49)
[2017-12-24] MEDS: GABAPENTIN 100 MG CAP PO SCH ×2 (08:49→20:43)
[2017-12-24] MEDS: INSULIN ASPART 100 UNITS/ML 3 ML PEN SC SCH ×4 (08:52→20:40)
[2017-12-24 09:02] LABS: BASO % 0.9 %; BASO ABS # 0.07 K/uL (0-0.2); EOS % 5.4 %; EOS ABS # 0.44 K/uL (0-0.5); HEMATOCRIT 40.8 % (42-52); IG# 0.02 K/uL (0.00-0.02); LYMPH % 41.6 %; LYMPH ABS # 3.38 K/uL (1.2-3.4); MEAN CELL VOLUME 83.6 fL (80-100); MEAN CORPUSCULAR HEMOGLOBIN 28.7 pg (25-34); MEAN CORPUSCULAR HGB CONC 34.3 g/dl (32-36); MEAN PLATELET VOLUME 10.2 fL (7.4-10.4); MONO % 7.4 %; NEUT % 44.5 %; NEUT ABS # 3.61 K/uL (1.4-6.5); PLATELET COUNT 226 K/uL (130-400); RED CELL DISTRIBUTION WIDTH CV 12.8 % (11.5-14.5); RED CELL DISTRIBUTION WIDTH SD 38.7 fL (36.4-46.3); WHITE BLOOD COUNT 8.12 K/uL (4.8-10.8)
[2017-12-24 09:46] LABS: CALCIUM 8.6 mg/dl (8.5-10.1); CREATININE 0.95 mg/dl (0.60-1.40); POTASSIUM 3.5 mmol/L (3.5-5.1)
--- NOTE | 2017-12-24 12:26 | CARDIOLOGY PROGRESS NOTE ---
DATE: 12/24/2017 SUBJECTIVE: Mr. Swartz is resting comfortably in bed without complaints of chest pain or dyspnea. He was able to sleep nearly supine last evening. He is anxious for hospital discharge. OBJECTIVE: VITAL SIGNS: Blood pressure 150/80 with a regular pulse of 70. Respiratory is 18 and the patient is afebrile at 36.7 degrees Celsius. Saturations 96% on room air. NECK: Supple with full carotid upstrokes. No carotid bruits. Jugular venous pressure is flat at 90 degrees. There is no thyromegaly. CARDIOVASCULAR: Reveals a regular rhythm with normal S1 and S2. Heart sounds are distant. No obvious murmurs. No S3 or S4. LUNGS: Clear without rales, rhonchi, or wheezes. ABDOMEN: Soft and nontender without bruits. EXTREMITIES: Reveal intact radial artery pulses bilaterally. There is no peripheral edema. DATA: CBC notes hemoglobin 14.0, hematocrit 40.8, white count 8.1, and platelet count 226,000. Electrolytes note a sodium of 137, potassium 3.5, chloride 99, bicarb 29, BUN 18, creatinine 0.95, and glucose 152. IMPRESSION AND PLAN: 1. Hypervolemia -- likely secondary to dietary indiscretion with salt. I do not feel that this truly represents congestive failure, especially realizing normal BNP. He may need a low dose diuretic as an outpatient to control his volume. 2. Hypertension -- controlled. 3. Mild left ventricular hypertrophy -- with diastolic dysfunction. 4. Chest pain syndrome -- could consider outpatient stress test to rule out myocardial ischemia. 5. Hypercholesterolemia -- continue statin. 6. Diabetes mellitus. 7. Disposition -- stable for hospital discharge.
[2017-12-24] MEDS ORDERED: POTASSIUM CHLORIDE 10 MEQ TABCR PO STA (13:22)
[2017-12-24] MEDS ORDERED: FUROSEMIDE INJ 40 MG in SYRINGE 0 ML IV STA (13:22)
[2017-12-24] MEDS: ENOXAPARIN 40 MG/0.4 ML SYR SC SCH (20:21)
[2017-12-24] MEDS: INSULIN GLARGINE SOLOSTAR 100 UNITS/ML 3 ML PEN SC SCH (20:41)
[2017-12-24] MEDS: SIMVASTATIN 20 MG TAB PO SCH (20:42)
[2017-12-24] MEDS: ASPIRIN 81 MG ECTAB PO SCH (20:42)
[2017-12-24] MEDS: MAGNESIUM OXIDE 400 MG TAB PO SCH (20:43)
[2017-12-24] MEDS: METOPROLOL TARTRATE 50 MG TAB PO SCH (20:43)
[2017-12-25 03:53] VITALS: BP 113/69; PULSE 68; TEMP 36.9; O2SAT 96
[2017-12-25] MEDS: ACETAMINOPHEN 325 MG TAB PO PRN ×2 (05:04→12:06)
[2017-12-25 05:52] LABS: HEMATOCRIT 43.1 % (42-52); HEMOGLOBIN 15.1 g/dL (14.0-18.0); MEAN CELL VOLUME 84.2 fL (80-100); MEAN CORPUSCULAR HEMOGLOBIN 29.5 pg (25-34); MEAN PLATELET VOLUME 10.5 fL (7.4-10.4); PLATELET COUNT 232 K/uL (130-400); RED CELL DISTRIBUTION WIDTH CV 12.8 % (11.5-14.5); RED CELL DISTRIBUTION WIDTH SD 38.8 fL (36.4-46.3); WHITE BLOOD COUNT 8.88 K/uL (4.8-10.8)
[2017-12-25 06:30] LABS: CREATININE 1.14 mg/dl (0.60-1.40)
[2017-12-25] MEDS: INSULIN ASPART 100 UNITS/ML 3 ML PEN SC SCH ×2 (08:07→12:19)
[2017-12-25] MEDS: GABAPENTIN 100 MG CAP PO SCH (08:07)
[2017-12-25] MEDS: MAGNESIUM OXIDE 400 MG TAB PO SCH (08:07)
[2017-12-25] MEDS: LISINOPRIL 20 MG TAB PO SCH (08:07)
[2017-12-25 08:09] VITALS: BP 132/84; PULSE 88; TEMP 37.2; O2SAT 93
[2017-12-25 08:23] LABS: CALCIUM 8.6 mg/dl (8.5-10.1); CREATININE 1.08 mg/dl (0.60-1.40)
--- NOTE | 2017-12-25 08:36 | Progress Note ---
Subjective Date of Service: Dec 24, 2017. Subjective Pt evaluation today including: conversation w/ patient, conversation w/ family ( at bedside), physical exam, chart review, lab review, review of inpatient medication list Pain: none PO Intake: normal Voiding: no voiding problems patient feels much better less orthopnea, less LYMAN, and less edema no chest pain or tightness confirms he snores loudly and has audible apneas Problem List Medical Problems: (1) Hypoxia Status: Acute (2) Pulmonary edema Status: Acute Review of Systems Constitutional: No fever Respiratory: No cough Cardiac: No chest pain Abdomen: No pain Objective Vital Signs Date Time Temp Pulse Resp B/P (MAP) Pulse Ox O2 Delivery O2 Flow Rate FiO2 12/24/17 20:17 36.9 83 18 152/89 (110) 97 Room Air 12/24/17 16:00 Room Air 12/24/17 15:24 36.7 52 18 116/79 (91) 97 12/24/17 12:00 95 Room Air 12/24/17 11:10 36.7 70 18 151/84 (106) 96 12/24/17 08:00 95 Room Air 12/24/17 07:50 36.8 63 18 111/71 (84) 95 Room Air 12/24/17 04:18 36.8 67 18 120/76 (91) 95 Room Air 12/24/17 04:05 Room Air 12/24/17 00:31 37.0 83 18 142/69 (93) 95 Room Air 12/24/17 00:09 36.7 90 18 135/77 (96) 96 Room Air 12/24/17 00:02 Room Air Physical Exam General Appearance: no apparent distress, + obese ENT: pharynx normal Neck: no JVD Respiratory/Chest: no respiratory distress, no accessory muscle use, + rales ( scant - bases) Cardiovascular: regular rate, rhythm, no gallop, no murmur Abdomen: normal bowel sounds, non tender, soft, no organomegaly Extremities: + pedal edema (1+ b/l ) Neurologic/Psychiatric: alert, oriented x 3 Laboratory Results Last 24 Hours Test 12/24/17 07:26 12/24/17 08:05 12/24/17 11:29 12/24/17 16:49 Bedside Glucose 164 mg/dl 316 mg/dl 96 mg/dl White Blood Count 8.12 K/uL Red Blood Count 4.88 M/uL Hemoglobin 14.0 g/dL Hematocrit 40.8 % Mean Corpuscular Volume 83.6 fL Mean Corpuscular Hemoglobin 28.7 pg Mean Corpuscular Hemoglobin Concent 34.3 g/dl Platelet Count 226 K/uL Mean Platelet Volume 10.2 fL Neutrophils (%) (Auto) 44.5 % Lymphocytes (%) (Auto) 41.6 % Monocytes (%) (Auto) 7.4 % Eosinophils (%) (Auto) 5.4 % Basophils (%) (Auto) 0.9 % Neutrophils # (Auto) 3.61 K/uL Lymphocytes # (Auto) 3.38 K/uL Monocytes # (Auto) 0.60 K/uL Eosinophils # (Auto) 0.44 K/uL Basophils # (Auto) 0.07 K/uL RDW Standard Deviation 38.7 fL RDW Coefficient of Variation 12.8 % Immature Granulocyte % (Auto) 0.2 % Immature Granulocyte # (Auto) 0.02 K/uL Sodium Level 137 mmol/L Potassium Level 3.5 mmol/L Chloride Level 99 mmol/L Carbon Dioxide Level 29 mmol/L Anion Gap 9.0 mmol/L Blood Urea Nitrogen 18 mg/dl Creatinine 0.95 mg/dl Est Creatinine Clear Calc Drug Dose 103.8 ml/min Estimated GFR () 107.0 Estimated GFR (Non- 92.3 BUN/Creatinine Ratio 18.8 Random Glucose 152 mg/dl Calcium Level 8.6 mg/dl Magnesium Level 1.9 mg/dl Assessment and Plan 52yo male with: 1. acute/chronic diastolic CHF - improving nicely. Still w/ edema - will give additional dose of lasix today and repeat labs/exam/ weight in AM. Appreciate cardiology consult. I counseled pt/ on diastolic dysfunction and importance of BP control, dx/ Rx of WHIT if he has such, etc. 2. acute hypoxic resp failure 2nd to #1 above - resolved. 3. chest tightness/pain prior to admission - outpatient stress test recommended by cardiology. 4. T2DM - uncontrolled - increase novolog correction & carb ratio. Leave lantus as is. 5. HTN - BPs slowly improving. Cont ROSCOE, BB. 6. hyperlipidemia - continue statin. 7. morbid obesity with BMI 38 8. suspected WHIT - sleep study referral after discharge. 9. DVT proph - lovenox. d/c home tomorrow hopefully Continued [facility] stay due to: multiple IV medications needed Discharge planning: home
[2017-12-25] MEDS ORDERED: FUROSEMIDE 40 MG TAB PO ONE (10:45)
[2017-12-25] MEDS ORDERED: POTASSIUM CHLORIDE 20 MEQ TABCR PO ONE (10:45)
--- NOTE | 2017-12-25 11:53 | DIAGNOSTIC IMAGING REPORT ---
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 COMPARISON STUDY: Bilateral lower extremity venous Doppler October 14, 2011. TECHNIQUE: Sonography of the deep venous system of the bilateral lower extremities was performed. Compression and augmentation were evaluated. FINDINGS: The bilateral common femoral, superficial femoral and popliteal veins were compressible. Augmentation was normal. Flow was shown within the deep calf vessels. IMPRESSION: No evidence of deep venous thrombus within the bilateral lower extremities. Electronically signed by: Rafat Powell M.D. 12/25/2017 11:52 AM Dictated Date/Time: 12/25/2017 11:51 AM
[2017-12-25] MEDS ORDERED: FURO-85 PO (12:00)
[2017-12-25] MEDS ORDERED: MCRK20 PO (12:00)
[2017-12-25] MEDS ORDERED: LISI20TA3 PO (12:00)
[2017-12-25] MEDS ORDERED: MGNO400 PO (12:00)
[2017-12-25] MEDS ORDERED: METO-452 PO (12:00)
[2017-12-25 12:09] VITALS: BP 145/83; PULSE 74; TEMP 36.8; O2SAT 95
--- NOTE | 2017-12-25 12:10 | Discharge Instructions ---
Discharge Instructions Date of Service Dec 25, 2017. Admission Reason for Admission: Congestive Heart Failure Discharge Discharge Diagnosis / Problem: Diastolic Congestive Heart Failure - much improved Discharge Goals Goal(s): Learn about illness, Diagnostic testing, Therapeutic intervention Activity Recommendations Activity Limitations: per Instructions/Follow-up section Until you see the trade show coordinator please avoid the following - 1. lifting objects over 25 pounds 2. heavy exertional activity including indoor or outdoor chores 3. going to the gym (exercise bike, treadmill, etc) Light walks are fine Light activities are fine . Instructions / Follow-Up Instructions / Follow-Up From Dr. Bliss - 1. Congestive Heart Failure instructions - Call your Primary Care doctor if any of the following symptoms or problems start or get worse: * Shortness of breath or difficulty breathing * Wake up at night short of breath * Chest pain * Cough * Swelling of your hands, feet, or legs * More fatigued or tired with your normal activity * Palpitations - sudden fast heart beats WEIGHT * Weigh yourself every morning after using the bathroom. * Use the same scale. * Wear the same amount of clothing. * Write your weight down on a chart. * Call your Primary Care doctor or trade show coordinator if you gain more than 2-3 pounds in 1-2 days. This is a sign you may be taking on fluid weight from your heart. MEDICATIONS * Use this discharge instruction sheet for medication instructions. * Take your medications at the time your doctor ordered. * Do not skip a dose of your medicines. * If you miss a dose of medicine, take it as soon as possible, but DO NOT DOUBLE A DOSE. * Read your medicine information when you get home. * Know all of the side effects of your medicine. If in doubt, ask your pharmacist * Call your Primary Care doctor's office if you have any side effects. * Be sure all of your doctors know what medicine and herbs you take (including cold, flu, and herbal medicine). Take the following with you to your follow-up doctor appointments: * Weight Chart * Medication List * List of questions Do not drink excessive alcohol, beer or wine. 2. Medications - * lasix (furosemide) - this is a diuretic (AKA "water pill") to prevent and treat fluid retention. * take as follows - * on 12/26/17 take 40mg total in the morning * on 12/27/17 and thereafter take 20mg every morning * your doctors will adjust this medication as necessary over time * metoprolol - * please note that your metoprolol has been changed to metoprolol XL * the dose is the same at 50mg once a day * lisinopril - * the dose has been INCREASED to 20mg once a day * take a potassium and magnesium supplement daily due to the lasix use * start the potassium/magnesium on 12/26/2017 The lasix, potassium, magnesium, metoprolol xl, and lisinopril have [facility]. 3. Due to your snoring we highly recommend you speak to your family doctor about getting a sleep study to diagnose sleep apnea which can contribute to congestive heart failure and blood pressure problems. 4. Your CAT scan showed that the liver looks fatty. The treatment of this is weight loss. Speak to your family doctor about this at your convenience. 5. Your ultrasounds of the legs were NEGATIVE for blood clots. 6. Speak to the cardiology team about an outpatient stress test in the near future. Return to [facility] if - * you are experiencing worsening shortness of breath, chest pain, or fluid retention not responding to lasix * fever over 100.5 degrees * any other concerns Follow-up appointments - * see separate section for details Current Hospital Diet Patient's current hospital diet: Diabetes Type 2 Diet, Low Sodium Diet (2gm Na) Discharge Diet Recommended Diet: Low Sodium Diet (2gm Na), Diabetes Type 2 Diet Fluid Restriction: 1800 ml (7 cups) Procedures Procedures Performed: 1. CAT scan of the lungs - fatty liver seen; no blood clots. 2. Echocardiogram showing "diastolic dysfunction" (a form of congestive heart failure). 3. Dopplers of both legs showing NO blood clots. Pending Studies Studies pending at discharge: no Laboratory Results Hemoglobin A1c Test 12/23/17 08:02 Range/Units Estimated Average Glucose 232 mg/dl Hemoglobin A1c 9.7 H 4.5-5.6 % Medical Emergencies . Who to Call and When: Call 911 or go to the Emergency Room if: * If at any time you feel your situation is an emergency * You have tightness or pain in your chest that does not go away with rest or Nitroglycerin * You are very short of breath even with rest . Non-Emergent Contact Non-Emergency issues call your: Primary Care Provider, Bean Dumper Call Non-Emergent contact if: temperature is above 100.5, you have any medication questions . . "Provider Documentation" section prepared by Tej Bliss. . VTE Core Measure Inpt VTE Proph given/why not?: Enoxaparin (Lovenox)SQ
[2017-12-25 12:49] VITALS: BP 145/83; PULSE 74; TEMP 36.8; O2SAT 95
[2017-12-25 14:40] VITALS: Ht 167.6 cm; Wt 103.3 kg
--- NOTE | 2017-12-25 18:17 | Discharge Summary ---
Discharge Summary Date of Service Dec 25, 2017. Discharge Summary Admission Date: Dec 22, 2017 at 14:58 Discharge Date: Dec 25, 2017 Discharge Disposition: Home Principal Diagnosis: acute/chronic diastolic CHF Problems/Secondary Diagnoses: 1. obesity with BMI 36 2. HTN 3. T2DM 4. suspected WHIT 5. acute hypoxic respiratory failure 2nd to CHF - resolved 6. hyperlipidemia 7. chest pain/tightness - negative work-up - will need outpatient stress test Immunizations: Have You Had Influenza Vaccine: No History of Tetanus Vaccine?: Yes History of Pneumococcal: No History of Hepatitis B Vaccine: No Procedures: 1. echocardiogram: * -- Conclusions -- * Left ventricular systolic function is normal. * No regional wall motion abnormalities noted. * Ejection Fraction = 55-60%. * There is mild concentric left ventricular hypertrophy. * Diastolic dysfunction, Grade II (pseudonormalization pattern). * No significant valvular pathology. 2. CTA chest - negative for PE. Fatty liver. 3. b/l LE venous dopplers - negative for DVT. Consultations: cardiology - Bernardino Paulino MD Medication Reconciliation New Medications: Furosemide (Lasix) 20 Mg Tab 20 MG PO DIRECTED, #30 TAB 5 Refills Potassium Chloride (Klor-Con M20) 20 Meq Tabcr 20 MEQ PO DAILY, #30 TAB 5 Refills Magnesium Oxide (Magnesium-Oxide) 400 Mg Tab 400 MG PO DAILY, #30 TAB 5 Refills Changed Medications: Lisinopril (Prinivil) 20 Mg Tab 1 TAB PO DAILY for 30 Days, #30 TAB 5 Refills (Changed from: Lisinopril ( Prinivil) 10 Mg Tab 10 Mg PO DAILY) Metoprolol Succinate (Toprol Xl) 50 Mg Tab 1 TAB PO DAILY for 30 Days, #30 TAB 5 Refills (Changed from: Metoprolol Tartrate (Lopressor) (Lopressor) 50 Mg Tab 50 Mg PO QPM) Continued Medications: Aspirin (Aspirin Ec) 81 Mg Tab 81 MG PO QPM Calcium/Vitamin D (Os-Felipe 500 Plus D) Tab 2 TAB PO QPM, TAB Gabapentin (Neurontin) 100 Mg Cap 200 MG PO BID, CAP Insulin Aspart (Novolog Flexpen) 100 Units/Ml Inj 35 UNITS SC TIDM Insulin Glargine (Lantus Solostar) 100 Unit/Ml Inj 80 UNITS SC QPM, PEN Simvastatin (Zocor) 20 Mg Tab 20 MG PO QPM, TAB Tramadol (Ultram) 50 Mg Tab 1 TAB PO TID PRN for Pain for 30 Days, #90 TAB Discharge Exam Physical Exam: General Appearance: no apparent distress, + obese ENT: pharynx normal Neck: no JVD Respiratory/Chest: lungs clear, no respiratory distress, no accessory muscle use Cardiovascular: regular rate, rhythm, no gallop, no murmur, normal peripheral pulses Abdomen / GI: normal bowel sounds, non tender, soft, no organomegaly Extremities: + pedal edema (1+ b/l) Neurologic/Psychiatric: alert, oriented x 3 Skin: + rash (erythematous patches, macules, and papules on legs - some have scale - uncertain etiology; seborrhea of face) Hospital Course HISTORY OF PRESENT ILLNESS: 52 y/o male with history of HTN, Hyperlipidemia, DM II, and obesity who presented with a complaint of chest pain while shoveling snow a few days prior to admission. Then, on the am of admission, he woke up and felt very SOB. He denied CP, N/V, palpitations or diaphoresis at the time of the shortness of breath. He had not had a cough or fevers. The pt's oxygen saturation on arrival to the ER was 88%. His SBP was > 180. Both improved with administration of Lasix. Initial CXR was consistent with CHF. He stated that he had been taking Lasix intermittently, although not recently, for LE edema which had developed over the previous 2 months. HOSPITAL COURSE: 1. acute/chronic diastolic CHF - The patient's echocardiogram showed grade 2 diastolic dysfunction with preserved ejection fraction. Valves were normal. He diuresed approximately 8kg of weight while hospitalized with resolution of presenting symptoms. Dr. Bernardino Paulino from cardiology consulted and provided recommendations for his cardiac care. His metoprolol was changed to metoprolol xl, lisinopril was titrated for improved BP control, and he will discharge home on 20mg of lasix daily along with K/mag supplementation. He was instructed on the importance of good blood pressure control, salt/fluid restriction, daily weights, and diagnosis/treatment of WHIT if in fact he has such condition. He will follow-up in the cardiology clinic after discharge with ALLI Rodriguez. 2. acute hypoxic respiratory failure 2nd to #1 above - felt to be due to diastolic CHF and resolved with diuresis. No PE, pneumonia, or other etiology was found on imaging. 3. chest tightness/pain prior to admission - despite such troponins were negative, echo showed normal LV wall motion, and he had no further episodes while here. Outpatient stress test will be arranged by cardiology after discharge given his multiple CAD risk factors. 4. T2DM - he was seen by the art educator and given counseling on his DM. He will continue on his basal-bolus regimen at home. Glycemic control was generally satisfactory while hospitalized. 5. HTN - improved with titration of lisinopril. He will continue on his metoprolol. 6. suspected WHIT - outpatient sleep study was highly recommended. Total Time Spent: Greater than 30 minutes This includes examination of the patient, discharge planning, medication reconciliation, and communication with other providers. Discharge Instructions Please refer to the electronic Patient Visit Report (Discharge Instructions) for additional information. Follow-Up 1. Rozina Singletary PA-C at the [facility] on Friday, December 292017 at 1:45pm. 2. Wagner Contreras PA-C - [facility] - Tuesday, January 09, 2018 at 2: 00pm. Additional Copies To Wagner Contreras,P.A.; Macho Johnson D.O.
== END 2017-12-25 13:03 | disposition home or self-care (01) | DRG 291 ==
LOC: EDBD 11:40 → C.EDC 11:41 → C.MED 14:58 → ENRESERV 16:50
PROVIDERS: ADMIT Internal Medicine; ATTEND Internal Medicine
DX: I50.33 Acute on chronic diastolic (congestive) heart failure (principal); J96.01 Acute respiratory failure with hypoxia; Z83.3 Family history of diabetes mellitus; Z82.49 Family history of ischemic heart disease and other diseases of the circulatory system; Z87.891 Personal history of nicotine dependence; Z79.82 Long term (current) use of aspirin; Z79.4 Long term (current) use of insulin; I10 Essential (primary) hypertension; E78.5 Hyperlipidemia, unspecified; R06.01 Orthopnea; R60.9 Edema, unspecified; E11.65 Type 2 diabetes mellitus with hyperglycemia; I11.0 Hypertensive heart disease with heart failure; E66.9 Obesity, unspecified; Z68.38 Body mass index [BMI] 38.0-38.9, adult

== ENCOUNTER 2018-01-16 23:04 | Emergency (ER) | payer OTHER ==
[~2018-01-16] VITALS: Ht 167.6 cm; Wt 109.4 kg
[~2018-01-16 23:04] MED LIST changes: +FURO-85 PO; -INSDGI SC; +INSDGIPEN SC; -LISI-729 PO; +LISI20TA3 PO; +MCRK20 PO; +METO-452 PO; -METO25TA56 PO; -METO50TA16 PO; +MGNO400 PO; -NVLGI SC; +NVLGI/PEN SC; +SIMV20TA2 PO; -SIMV40TA2 PO; -VITAMIN D3 PO
[2018-01-16 23:07] VITALS: TEMP 37; Ht 167.6 cm; Wt 109.4 kg
[2018-01-16 23:24] VITALS: O2SAT 100
[2018-01-16] MEDS ORDERED: ALBUT/IPRATROP 3MG/0.5MG NEB 3 ML VIAL INH STA (23:34)
[2018-01-16 23:43] LABS: BASO % 0.4 %; BASO ABS # 0.04 K/uL (0-0.2); EOS % 4.8 %; EOS ABS # 0.43 K/uL (0-0.5); HEMATOCRIT 36.8 % (42-52); HEMOGLOBIN 12.8 g/dL (14.0-18.0); IG# 0.02 K/uL (0.00-0.02); LYMPH % 39.2 %; LYMPH ABS # 3.54 K/uL (1.2-3.4); MEAN CELL VOLUME 82.7 fL (80-100); MEAN CORPUSCULAR HEMOGLOBIN 28.8 pg (25-34); MEAN CORPUSCULAR HGB CONC 34.8 g/dl (32-36); MEAN PLATELET VOLUME 10.5 fL (7.4-10.4); MONO % 6.2 %; MONO ABS # 0.56 K/uL (0.11-0.59); NEUT % 49.2 %; NEUT ABS # 4.43 K/uL (1.4-6.5); PLATELET COUNT 259 K/uL (130-400); RED CELL DISTRIBUTION WIDTH CV 12.5 % (11.5-14.5); RED CELL DISTRIBUTION WIDTH SD 37.6 fL (36.4-46.3); WHITE BLOOD COUNT 9.02 K/uL (4.8-10.8)
[2018-01-17 00:04] LABS: ALBUMIN 3.4 gm/dl (3.4-5.0); ALT/SGPT 21 U/L (12-78); AST/SGOT 17 U/L (15-37); BLOOD UREA NITROGEN 14 mg/dl (7-18); CALCIUM 8.4 mg/dl (8.5-10.1); CARBON DIOXIDE 27 mmol/L (21-32); CREATININE 1.14 mg/dl (0.60-1.40); GLUCOSE 375 mg/dl (70-99); LIPASE 60 U/L (73-393); SODIUM 135 mmol/L (136-145)
[2018-01-17] MEDS ORDERED: SODIUM CHLORIDE 0.9% 500ML 500 ML IV STA (00:04)
[2018-01-17 00:10] LABS: ALKALINE PHOSPHATASE 129 U/L (45-117); TOTAL PROTEIN 6.9 gm/dl (6.4-8.2)
[2018-01-17] MEDS ORDERED: OPTIRAY 320 IV PRN (00:15)
[2018-01-17] MEDS ORDERED: NovoLIN-R INSULIN PER UNIT CHARGE IV STA (01:26)
[2018-01-17 03:00] VITALS: BP 183/79; O2SAT 97
--- NOTE | 2018-01-17 03:04 | EMERGENCY ROOM VISIT NOTE ---
History First contact with patient: 23:09 Chief Complaint: RESPIRATORY PROBLEMS Stated Complaint: COUGHING,TROUBLE BREATHING Nursing Triage Summary: Pt complains of cough for 2 -3 days. Denies any chest pain. SOB at times. Pt denies any fevers or body aches. History of Present Illness The patient is a 52 year old male who presents to the Emergency Room with complaints of cough, shortness of breath for the past few days that is steadily getting worse. Patient drives a lot. No history of DVT or PE. No chest pain. Patient denies productive cough, flulike illness, fever, chills, abdominal pain, back pain, increasing leg pain or swelling. Patient states his weight feels about the same. He does not feel fluid overloaded. He has an appointment this week with cardiology for outpatient stress test. Review of Systems An 10 system review of systems was completed with positives and pertinent negatives listed in the HPI. Past Medical/Surgical History Medical Problems: (1) Acute CHF (2) Bronchitis (3) Diabetes (4) Hyperglycemia (5) Hypertension Family History Cancer Diabetes mellitus Gallbladder disease Heart disease Hypertension Kidney disease Lung disease Social History Smoking Status: Former Smoker Alcohol Use: none Drug Use: none Marital Status: in relationship Occupation Status: employed Current/Historical Medications Scheduled Aspirin (Aspirin Ec), 81 MG PO QPM Calcium/Vitamin D (Os-Felipe 500 Plus D), 2 TAB PO QPM Furosemide (Lasix), 20 MG PO DIRECTED Gabapentin (Neurontin), 200 MG PO BID Insulin Aspart (Novolog Flexpen), 35 UNITS SC TIDM Insulin Glargine (Lantus Solostar), 80 UNITS SC QPM Lisinopril (Prinivil), 1 TAB PO DAILY Magnesium Oxide (Magnesium-Oxide), 400 MG PO DAILY Metoprolol Succinate (Toprol Xl), 1 TAB PO DAILY Potassium Chloride (Klor-Con M20), 20 MEQ PO DAILY Simvastatin (Zocor), 20 MG PO QPM Scheduled PRN Tramadol (Ultram), 1 TAB PO TID PRN for Pain Physical Exam Vital Signs Date Time Temp Pulse Resp B/P (MAP) Pulse Ox O2 Delivery O2 Flow Rate FiO2 01/17/18 03:00 79 16 183/79 97 Room Air 01/17/18 00:39 86 20 181/90 96 Room Air 01/16/18 23:26 Room Air 100 01/16/18 23:24 100 Room Air 01/16/18 23:24 100 Room Air 01/16/18 23:23 80 01/16/18 23:07 37.0 84 18 186/92 97 Room Air Physical Exam VITALS: Vitals are noted on the nurse's note and reviewed by myself. Vital signs hypertensive. GENERAL: Pleasant male speaking in full sentences, in no acute distress, nondiaphoretic, well-developed well-nourished. SKIN: The skin was without rashes, erythema, edema, or bruising. There is no tenting of the skin. Capillary reflex less than 2 seconds. HEAD: Normocephalic atraumatic. EARS: External auditory canals clear, tympanic membranes pearly waller without erythema or effusion bilaterally. EYES: Pupils equal round and reactive to light and accommodation. Conjunctivae without injection, sclerae without icterus. Extraocular movements intact. NOSE: Patent, turbinates without inflammation or discharge. No sinus tenderness. MOUTH: Mucous membranes moist. Pharynx without erythema or exudate. Uvula midline. Airway patent. Tongue does not deviate. NECK: Supple without nuchal rigidity. No lymphadenopathy. No thyromegaly. Cervical spine is nontender. No JVD. HEART: Regular rate and rhythm LUNGS: Clear to auscultation bilaterally without wheezes, rales or rhonchi. No retractions or accessory muscle use. ABDOMEN: Positive bowel sounds x 4. Normal tympanic percussion. Soft, nontender, without masses or organomegaly. Rowell sign negative. No guarding or rebound tenderness. No CVA tenderness MUSCULOSKELETAL: No muscle atrophy, erythema, noted. +1 pitting edema up to the mid tib-fib bilaterally. NEURO: Patient was alert and oriented to person place and time. Normal sensation to light and sharp touch. No focal neurological deficits. Medical Decision & Procedures Laboratory Results 01/16/18 23:28 Red Blood Count 4.45, Mean Corpuscular Volume 82.7, Mean Corpuscular Hemoglobin 28.8, Mean Corpuscular Hemoglobin Concent 34.8, Mean Platelet Volume 10.5, Neutrophils (%) (Auto) 49.2, Lymphocytes (%) (Auto) 39.2, Monocytes (%) (Auto) 6.2, Eosinophils (%) (Auto) 4.8, Basophils (%) (Auto) 0.4, Neutrophils # (Auto) 4.43, Lymphocytes # (Auto) 3.54, Monocytes # (Auto) 0.56, Eosinophils # (Auto) 0.43, Basophils # (Auto) 0.04 01/16/18 23:28 Test 01/16/18 23:28 01/16/18 23:37 01/17/18 02:22 01/17/18 02:36 White Blood Count 9.02 K/uL (4.8-10.8) Red Blood Count 4.45 M/uL (4.7-6.1) Hemoglobin 12.8 g/dL (14.0-18.0) Hematocrit 36.8 % (42-52) Mean Corpuscular Volume 82.7 fL (80-100) Mean Corpuscular Hemoglobin 28.8 pg (25-34) Mean Corpuscular Hemoglobin Concent 34.8 g/dl (32-36) Platelet Count 259 K/uL (130-400) Mean Platelet Volume 10.5 fL (7.4-10.4) Neutrophils (%) (Auto) 49.2 % Lymphocytes (%) (Auto) 39.2 % Monocytes (%) (Auto) 6.2 % Eosinophils (%) (Auto) 4.8 % Basophils (%) (Auto) 0.4 % Neutrophils # (Auto) 4.43 K/uL (1.4-6.5) Lymphocytes # (Auto) 3.54 K/uL (1.2-3.4) Monocytes # (Auto) 0.56 K/uL (0.11-0.59) Eosinophils # (Auto) 0.43 K/uL (0-0.5) Basophils # (Auto) 0.04 K/uL (0-0.2) RDW Standard Deviation 37.6 fL (36.4-46.3) RDW Coefficient of Variation 12.5 % (11.5-14.5) Immature Granulocyte % (Auto) 0.2 % Immature Granulocyte # (Auto) 0.02 K/uL (0.00-0.02) Anion Gap 8.0 mmol/L (3-11) Est Creatinine Clear Calc Drug Dose 88.9 ml/min Estimated GFR () 85.8 Estimated GFR (Non- 74.1 BUN/Creatinine Ratio 12.6 (10-20) Calcium Level 8.4 mg/dl (8.5-10.1) Magnesium Level 1.9 mg/dl (1.8-2.4) Total Bilirubin 0.4 mg/dl (0.2-1) Direct Bilirubin 0.1 mg/dl (0-0.2) Aspartate Amino Transf (AST/SGOT) 17 U/L (15-37) Alanine Aminotransferase (ALT/SGPT) 21 U/L (12-78) Alkaline Phosphatase 129 U/L (45-117) Troponin I < 0.015 ng/ml (0-0.045) Total Protein 6.9 gm/dl (6.4-8.2) Albumin 3.4 gm/dl (3.4-5.0) Lipase 60 U/L (73-393) Beta-Hydroxybutyric Acid 0.59 mg/dL (0.2-2.81) Bedside D-Dimer > 450 ng/mlFEU (0-450) Bedside Glucose 132 mg/dl (70-99) Bedside Troponin I < 0.030 ng/ml (0-0.045) Medications Administered Medications (Trade) Dose Ordered Sig/Sky Route Start Time Stop Time Status Last Admin Dose Admin Albuterol/ Ipratropium (Duoneb) 3 ml NOW STAT INH 01/16/18 23:34 01/16/18 23:35 DC 01/16/18 23:40 3 ML Sodium Chloride 500 ml @ 999 mls/hr Q31M STAT IV 01/17/18 00:04 01/17/18 00:34 DC 01/17/18 00:38 999 MLS/HR Insulin Human Regular (novoLIN-R U-100 PER UNIT) 10 units NOW STAT IV 01/17/18 01:26 01/17/18 01:27 DC 01/17/18 01:36 10 UNITS ED Course Prior records/ancillary studies reviewed. Triage Nursing notes reviewed. Additional history obtained from the family. The patient's history was concerning for respiratory difficulties. Differential diagnosis: Etiologies such as infections, reactive airway disease, pneumonia, pneumothorax , COPD, CHF, cardiac ischemia, pulmonary embolism, musculoskeletal, gastrointestinal, as well as others were entertained. Physical examination: As above. ER treatment provided: Nebulizer, insulin, normal saline On reassessment the patient felt better. Diagnostic interpretation by me: The electrocardiogram was negative for acute ischemic or pathologic change. Normal sinus, left axis deviation, no acute ST-T wave changes, rate of 79. EKG compared to prior EKG from last month with no acute changes noted. Impression normal sinus rhythm with a left axis deviation interpreted by myself The labs revealed hyperglycemia without DKA. Repeat blood sugar is improved after insulin. Patient did not take his insulin today Negative troponin 2 . Elevated d-dimer Imaging studies: Chest x-ray with no acute consolidation, pneumothorax or free air per my interpretation CTA negative for PE per radiology This appears to be consistent with shortness of breath and chest pain most likely related to bronchitis. Patient had no PE or pneumonia on imaging. He felt better after the nebulizer. He was not taking his insulin today. He has an appointment this week with cardiology for follow-up. He was advised to keep this. Patient was neurovascularly and neurologically intact. Stable vital signs. He was not hypoxic. I do not believe this is cardiac in etiology. Patient was advised to use the inhaler for cough and follow-up as scheduled with cardiology and family care this week or here in the ER sooner for chest pain, difficulty breathing, fevers, worsening signs or symptoms or as needed. By the evaluation outlined above emergent etiologies such as CHF, cardiac ischemia, pulmonary embolism, reactive airway disease, pneumonia, pneumothorax, musculoskeletal, serious bacterial infections, as well as others were deemed relatively unlikely. The pt informed about the findings as listed above. All questions were answered and pleased with the treatment. Return instructions were outlined and the patient was discharged in stable condition. Referral: The patient was referred back to their primary care physician for follow-up in 2 to 3 days for a recheck of the current condition. Case reviewed with my attending The chart was completed utilizing [employer] Speech voice recognition software. Grammatical errors, random word insertions, pronoun errors, and incomplete sentences are an occassional consequence of this system due to software limitations, ambient noise, and hardware issues. Any formal questions or concerns about the content, text, or information contained within the body of this dictation should be directly addressed to the physician social research assistant for clarification. Medical Decision as above Medication Reconcilliation Current Medication List: was personally reviewed by me Blood Pressure Screening Patient's blood pressure: Elevated blood pressure Blood pressure disposition: Elevated BP felt to be situational Impression Primary Impression: Bronchitis Additional Impressions: Chest pain Dyspnea Hyperglycemia due to type 2 diabetes mellitus Departure Information Dispostion Home / Self-Care Condition GOOD Referrals No Doctor, Assigned (PCP) Patient Instructions [facility] Additional Instructions Albuterol Inhaler: Take 2 puffs four times daily for five days, then as needed. Monitor your blood sugars. It was high today. Follow-up this week as scheduled with cardiology. Rest and drink plenty of fluids. Avoid smoke/smoking, fumes, dust, or any triggers in the past that may have affected your breathing. Continue current medications. Return to the ER for chest pain, difficulty breathing, fevers, vomiting, worsening of your condition, or as needed. Follow up with your primary physician this week for a recheck of your current condition. Problem Qualifiers
[2018-01-17] MEDS ORDERED: ALBUTEROL HFA 8 GM INHALER INH STA (03:05)
[2018-01-17 03:13] VITALS: PULSE 76
--- NOTE | 2018-01-17 06:32 | DIAGNOSTIC IMAGING REPORT ---
CHEST ONE VIEW PORTABLE CLINICAL HISTORY: Atypical chest pain. Cough. COMPARISON STUDY: December 22, 2017 FINDINGS: The cardiac and mediastinal contours are normal. There is no evidence of focal pulmonary consolidation. There is no evidence of failure. No pleural effusions are visualized.[Slight interstitial prominence is likely accentuated due to the patient's body habitus. IMPRESSION: No active disease in the chest. Electronically signed by: Kayode Soto M.D. 01/17/2018 6:30 AM Dictated Date/Time: 01/17/2018 6:30 AM
--- NOTE | 2018-01-17 06:42 | DIAGNOSTIC IMAGING REPORT ---
(CHEST FOR PE) ANGIO WITH CT DOSE: 659.50 mGy.cm HISTORY: 52 years-old Male presents with acute atypical chest pain and shortness of breath. TECHNIQUE: Multiple CTA images of the chest were obtained after the intravenous administration of 93 ml Optiray 320. Coronal and sagittal MIPS were obtained from the axial data set and were submitted for review. A dose lowering technique was utilized adhering to the principles of ALARA. COMPARISON: Chest radiograph 01/16/2018, CTA chest 12/23/2017. FINDINGS: CTA: There is mild multichamber cardiac enlargement. No pericardial effusion. The thoracic aorta demonstrates a bovine morphology of the arch. Imaged great vessels are patent. No dissection or aneurysm. There is suboptimal evaluation of the pulmonary arterial tree secondary to contrast bolus timing and cardiac pulsation artifact. No central pulmonary embolus identified. No evidence of right heart strain. CT CHEST: No dominant thyroid nodule or pathologic appearing adenopathy of the chest. Mild centrilobular and paraseptal emphysematous changes within an upper lung zone predominant distribution. There is no pneumothorax or pleural effusion. There is mild dependent subsegmental bibasilar atelectasis. There are no suspicious pulmonary nodules or masses identified. Subcentimeter calcified granuloma of the left lower lobe. There is mild bilateral bronchial wall thickening suggesting bronchitis. No acute abnormality of the imaged upper abdomen. Mild bilateral symmetric gynecomastia. Soft tissues are unremarkable. The bones appear to be intact. IMPRESSION: 1. No acute aortic pathology or evidence of pulmonary thromboembolic disease. Evaluation of the pulmonary arterial tree however is limited secondary to contrast bolus timing. No central pulmonary embolus identified. 2. Mild emphysema with bronchitis. 3. No lobar airspace consolidation or adenopathy identified. The above report was generated using voice recognition software. It may contain grammatical, syntax or spelling errors. Electronically signed by: Wyatt Bautista M.D. 01/17/2018 6:40 AM Dictated Date/Time: 01/17/2018 6:28 AM
== END 2018-01-17 03:15 | disposition home or self-care (01) ==
LOC: C.EDB 23:05 → C.EDA 01-17 03:15
DX: J40 Bronchitis, not specified as acute or chronic (principal); R07.89 Other chest pain; R06.00 Dyspnea, unspecified; E11.65 Type 2 diabetes mellitus with hyperglycemia; I10 Essential (primary) hypertension; Z87.891 Personal history of nicotine dependence; Z79.82 Long term (current) use of aspirin; Z79.4 Long term (current) use of insulin; Z83.3 Family history of diabetes mellitus; Z83.79 Family history of other diseases of the digestive system; Z82.49 Family history of ischemic heart disease and other diseases of the circulatory system; Z84.1 Family history of disorders of kidney and ureter; Z83.6 Family history of other diseases of the respiratory system

== ENCOUNTER → 2018-03-12 | Outpatient (CLI) | payer OTHER ==
[2018-03-12 10:04] LABS: BLOOD UREA NITROGEN 19 mg/dl (7-18); CALCIUM 9.2 mg/dl (8.5-10.1); CARBON DIOXIDE 30 mmol/L (21-32); CREATININE 1.31 mg/dl (0.60-1.40); GLUCOSE 643 mg/dl (70-99); POTASSIUM 4.8 mmol/L (3.5-5.1); SODIUM 130 mmol/L (136-145)
== END | disposition home or self-care (01) ==
LOC: C.LAB1850 08:07
PROVIDERS: ATTEND Physician Assistant Medical
DX: E87.70 Fluid overload, unspecified (principal)

== ENCOUNTER → 2018-06-20 | Outpatient (CLI) | payer OTHER ==
--- NOTE | 2018-06-21 06:05 | PAP/PSG TECHNICIAN REPORT ---
[facility] Security Police Polysomnogram Report Study name: None Report date: 06/21/2018 Study date: 06/20/2018 Referring Physician: DR. LILLIAN DANIELS Name: BING REYNOLDS Interpreting Physician: Demarcus Conn D.O. Date of : 1965 Security Police: REDDY Whalen. Sex: Male Age: 53 StudyType: PSG Weight: 235 lbs Height: 53 years, Height 5' 6" Neck Circum:19in. BMI: 37.93 Medications: Accu-Chek Savita Plus, ASA 81mg, Atorvastatin Calcium 80mg, Bumetanide 2mg, Fish Oil, Gabapentin 300mg, Insulin Aspart 1000unit/ml, Insulin glargine 100unit/ml, Lisinopril 20mg, Metoprolol Succinate 50mg, Potassium Chloride 20MEQ Patient History Study started on room air with no ETCO2 monitoring in room #8. 53 yr old male here tonight for a diagnostic psg. He complains of EDS and snoring. He gets very fatigued after walking or doing any physical activity. He was diagnosed with diastolic CHF in December when he was admitted to the hospital ([facility]). He sometimes has restless legs. His ESS=13/24. Neck circ=19inches. Parameters Monitored NPSG: E1-M2, E2-M1, Fp1-M2, Fp2-M1, F3-M2, F4-M2, F4-M1, C3-M2, C4-M2, C4-M1, O1-M2, O2-M2, O2-M1, T3-M2, T4-M1, P3-M2, P4-M1, CHIN1, CHIN2, HR, EKG, Legs, PFLOW, SNOR, FLOW, CFLOW, Tidal Volume, THOR, ABDO, SpO2, PLTH, CPRESS, ETCO2 Wave, ETCO2, pH Sleep Architecture Sleep Stages Time at Lights Off 10:00:27 PM STAGES Time (min.) TST (%) Time at Lights On 5:21:27 AM Wake 19.0 -- Total Recording Time (TRT) 441.00 min. N1 9.5 2 Total Sleep Period (TSP) 432.5 min. N2 270.5 64 Total Sleep Time (TST) 422.0min. N3 60.5 14 Awake Time 19.0 min. REM 81.5 19 Wake after Sleep Onset 10.5 min. Sleep Efficiency (SE) 96 % Sleep Onset Latency (JESÚS) 8.5 min. Number of Stage 1 Shifts None Awakenings 11 Stage Changes 57 Number of REM periods 3 REM 81.5 19 REM Latency 80.0 min. NREM 340.5 81 Body Position Analysis Supine Right Left Side Prone Vertical Total Sleep Time (min.) 30.1 130.5 267.5 398.03 0.0 0.0 Total Sleep Time (%) 6% 31% 63% 94 0% N/A% Total Sleep Time REM (min.) 0.0 0.0 81.5 None 0.0 0.0 Total Sleep Time NREM (min.) 24.0 130.5 186.0 None 0.0 0.0 Intermittent Wake (min.) 6.1 9.7 3.1 None 0.0 0.0 Total Sleep Period (%) 6% None None None None None Arousals Myoclonus (PLM) * Events Count Index Events Count Index Spontaneous 5 1 Events Awake (PLMW) 27 85.3 Respiratory 13 2.0 Events Asleep w/ Arousal (PLMA) 14 2.0 PLM 14 2 Events Asleep w/o Arousal (PLMS) 371 52.7 Snoring 8 1 Total Asleep 385 54.7 Total 40 6 Total 412 56 Respiratory Analysis * CA OA MA CH H RERA Total Count 0 3 0 0 76 0 79 Index 0.0 0.4 0.0 0 10.8 0 11.2 Mean Duration 0.0 21.2 0.0 0.00 21.1 0.0 21.1 Longest Duration 0.0 30.1 0.0 0.00 0.0 0.0 47.3 Respiratory Event Summary Total Supine ~Supine Right Left Prone REM NREM Apneas Count 3 1 2 1 1 N/A 1 2 Index 0.4 3 0 0.5 0.2 N/A 1 0 Hypopneas (4% Desat) Count 76 34 42 16 26 N/A 10 66 Index 10.8 85.1 6 7.4 5.8 N/A 7.4 11.6 Apneas & All Hypopneas Count 79 35 44 17 27 N/A 11 68 Index 11.2 88 7 8 6 N/A 8.1 12.0 Respiratory Events (Ekg Manager+All Hyp+RERA) Count 79 35 44 17 27 N/A 11 68 Index 11.2 88 7 7.8 6.1 N/A 8.1 12.0 Respiratory Related Arousal Count 13 35 4 3 1 N/A 1 13 Index 2.0 25 1 1 0 N/A 1 2 Snoring Analysis Supine Right Left Prone REM NREM Total Snore duration 65.4 min Snores count 161 576 1,607 N/A 526 1,818 2,344 Snore mean duration 1.7 Sec Snores index 403 265 360 N/A 387.2 320.4 333.3 TST with snoring (%) 15.5% Desaturation Event Summary: Minimum %SpO2 Event Count Mean/Min/Max Duration(sec.) Desaturation Index % Time In Bed > 90 125 23.7 / 7.0 / 60.0 20.5 83.7 86 - 90 26 18.2 / 6.8 / 58.0 23.1 15.4 81 - 85 0 N/A 0.0 0.8 76 - 80 0 N/A 0.0 0.1 71 - 75 0 N/A 0.0 0.0 66 - 70 0 N/A 0.0 0.0 61 - 65 0 N/A 0.0 0.0 56 - 60 0 N/A 0.0 0.0 51 - 55 0 N/A 0.0 0.0 < 50 0 N/A 0.0 0.0 Total REM NREM Awake <50% 0.0 min. 0.0 min. 0.0 min. 0.0 min. 51 - 60% 0.0 min. 0.0 min. 0.0 min. 0.0 min. 61 - 70% 0.0 min. 0.0 min. 0.0 min. 0.0 min. 71 - 80% 0.6 min. 0.0 min. 0.5 min. 0.0 min. 81 - 90% 71.0 min. 19.0 min. 47.7 min. 4.3 min. 91 - 100% 366.7 min. 62.5 min. 290.3 min. 14.0 min. Average 92 92 93 92 Minimum SpO2 76 84 76 79 Desaturation Event Index 17.7 14.7 17.4 37.9 # Desat. Events below 89% 75 11 59 5 Time(%) with Saturation below 89% 4.8 1.0 3.5 0.3 Time(min.) with Saturation below 89% 21.2 4.4 15.3 1.5 Heart Rate Analysis Min (bpm) Max (bpm) Average (bpm) Awake 59 127 70 NREM 58 78 64 REM 57 67 62 Overall 57 78 63 Supplemental O2 Values Minimum O2 level: None Value Start Time End Time Security Police Comments Mr. Reynolds slept in the right, left and supine positions. No cardiac arrhythmia noted. PLM's were noted. No bruxism noted. Snoring was noted and scored as a 5 on a scale of 1 through 5. (0=no snoring, 5=snoring loud enough to be heard through a closed door or down the crystal way). He did not use the restroom during the night. He stated that he slept well. The final report will be interpreted and signed by a sleep physician. The completed physician report will then be placed in the patient medical record. Therapy (cm H2O) 0 TIB (min.) 441.0 TST (min.) 422.0 Sleep Onset (min.) 8.5 REM Onset From Sleep (min.) 80.0 Sleep Efficiency % 96 Wakefulness (%) 4 Wakefulness (min.) 19.0 NREM 1 (%) 2 NREM 1 (min.) 9.5 NREM 2 (%) 64 NREM 2 (min.) 270.5 NREM 3 (%) 14 NREM 3 (min.) 60.5 REM (%) 19 REM (min.) 81.5 # Arousals 40 Arousal Index 6 # Snore 2,344 Snore Index 333.3 AHI 11.2 AHI Supine 88 AHI Non-Supine 7 NREM AHI 12.0 REM AHI 8.1 RDI 11.2 # Obstructive Apnea 3 # Central Apnea 0 # Mixed Apnea 0 # Hypopneas 76 RERAs 0 Total Respiratory Events 81 Time Below SpO2 89% (min.) 19.7 Mean NREM SpO2 (%) 93 Mean REM SpO2 (%) 92 Mean Sleep SpO2 (%) 92 Min NREM SpO2 (%) 76 Min REM SpO2 (%) 84 Position Supine (min.) 30.1 Position Non-supine (min.) 398.0 LM Index Sleep 54.7 LM Index NREM 65.6 LM Index REM 9.6 Mean Heart Rate (bpm) 63 Min Heart Rate (bpm) 57
--- NOTE | 2018-06-24 14:53 | POLYSOMNOGRAPH REPORT ---
CLINICAL DATA: The patient is a 53-year-old male with a history of snoring, excessive daytime somnolence, and restless legs. He had a diagnosis of diastolic CHF made in December 2017. His BMI is elevated at 37.93. His [place] sleepiness scale score is 13. This was an in-lab overnight polysomnography. SLEEP ARCHITECTURE: The total sleep period was 432.5 minutes. The total sleep time was 422 minutes. Sleep efficiency was normal at 96%. Sleep latency was normal at 8.5 minutes. Wake after sleep onset was normal at 10.5 minutes. The REM latency was normal at 80 minutes. There were 3 REM periods during the night. Sleep consisted of stage N1 2%, stage N2 64%, stage N3 14%, stage REM 19%. AROUSAL DATA: The patient had a total of 40 arousals including 5 spontaneous, 13 respiratory, 14 PLM, and 8 snoring arousals. The arousal index was 6. PLM DATA: The patient had a total of 385 periodic limb movements of sleep for a PLM index severely elevated at 54.7. However, there were only 14 arousals associated with limb movements for a PLM arousal index of only 2.0. EKG: The underlying cardiac rhythm was normal sinus. The cardiac rates ranged from 57-78 beats per minute with an average of 63 beats per minute. No arrhythmia noted. RESPIRATORY DATA: The patient had a total of 79 respiratory events including 3 obstructive apneas and 76 hypopneas. The longest apnea was 30.1 seconds. The mean duration of hypopneas was 21.1 seconds. The apnea hypopnea index was 11.2. This reflects mild sleep apnea. OXIMETRY DATA: The average saturation for the night was 92%. The minimum saturation was 76%. There was a total of 21.2 minutes with saturations less than 89%. COVERAGE SPECIALIST COMMENTS: Mr. Swartz slept in the right, left, and supine positions. No cardiac arrhythmia noted. PLMs were noted. No bruxism noted. Snoring was noted and scored as a 5 on a scale of 1 through 5. He did not use the restroom during the night. He stated that he slept well. IMPRESSION: 1. Obstructive sleep apnea. 2. Periodic limb movement disorder. COMMENTS: The patient has mild sleep apnea. However, he has significant symptoms and he has a comorbidity in the form of congestive heart failure. Thus, treatment would be advised. He did have frequent periodic limb movements, but with few arousals. It is suggested that the sleep apnea be treated first and then evaluation of the leg movement disorder afterwards. RECOMMENDATIONS: 1. It is advised that the patient be treated with nasal CPAP. This could be done either by referral to the sleep lab for a CPAP titration or alternatively, treatment with auto CPAP. If auto CPAP is chosen, it would be advised that the pressures be set at minimum 6 and maximum 18. 2. Weight loss is advised in light of the significant elevation of body mass index at 37.93. 3. The patient should be advised to avoid sleeping in the supine position. Although he did not turn supine for very much of this night, his apnea hypopnea index while supine was severely elevated at 88. 4. Consideration is given to checking a serum ferritin level to determine if he has some iron deficiency which might contribute to the limb movement disorder. Generally, treatment is advised with iron supplementation if the ferritin is less than 50.
== END | disposition home or self-care (01) ==
LOC: C.NEUR 20:00
PROVIDERS: ATTEND Family Medicine
DX: G47.33 Obstructive sleep apnea (adult) (pediatric) (principal); G47.61 Periodic limb movement disorder

== ENCOUNTER 2019-02-20 12:17 | Inpatient (IN) ==
[2019-02-20] MEDS ORDERED: ASPIRIN CHEW 324 MG PO STA (12:36)
[2019-02-20] MEDS ORDERED: ASPIRIN 81 MG CHEW ONE (12:56)
[2019-02-20 13:05] LABS: Basophils # (auto) 0.05 K/uL (0-0.2); Basophils % (auto) 0.6 %; Eosinophils # (auto) 0.18 K/uL (0-0.5); Eosinophils % (auto) 2.3 %; Hemoglobin 12.1 g/dL (14.0-18.0); Immature Granulocytes # (auto) 0.04 K/uL (0.00-0.02); Immature Granulocytes % (auto) 0.5 %; Lymphocytes # (auto) 2.87 K/uL (1.2-3.4); Mean Corpuscular Hgb Conc 34.6 g/dL (32-36); Mean Corpuscular Volume 83.5 fL (80-100); Mean Platelet Volume 10.8 fL (7.4-10.4); Monocytes # (auto) 0.49 K/uL (0.11-0.59); Monocytes % (auto) 6.1 %; Neutrophils # (auto) 4.35 K/uL (1.4-6.5); Neutrophils % (auto) 54.5 %; Platelet Count 209 K/uL (130-400); RDW Coefficient of Variation 12.9 % (11.5-14.5); Red Blood Count 4.19 M/uL (4.7-6.1); White Blood Count 7.98 K/uL (4.8-10.8)
[2019-02-20 13:24] LABS: Blood Urea Nitrogen 49 mg/dl (7-18); Calcium 8.6 mg/dl (8.5-10.1); Carbon Dioxide 21 mmol/L (21-32); Chloride 97 mmol/L (98-107); Creatinine Clr Calc Pharmacy 38.6 ml/min; Est GFR (African American) 31.6; Est GFR (Non-African American) 27.3; Glucose 400 mg/dl (70-99); Magnesium 1.8 mg/dl (1.8-2.4); NT Pro B Type Natriuretic Pept 65 pg/ml (0-900); Potassium 5.7 mmol/L (3.5-5.1); Sodium 129 mmol/L (136-145); Troponin I < 0.015 ng/ml (0-0.045)
--- NOTE | 2019-02-20 13:37 | XRay Report ---
TWO VIEW CHEST CLINICAL HISTORY: Dyspnea. Rales on physical examination. FINDINGS: PA and lateral chest radiographs are compared to study dated 08/02/2018. The cardiomediastin al silhouette is unremarkable. The lungs and pleural spaces are clear. There is no pneumothorax. The bony thorax appears intact. IMPRESSION: No active disease in the chest. Electronically signed by: Fernando Carver M.D. 02/20/2019 1:35 PM
--- NOTE | 2019-02-20 14:14 | History & Physical Report ---
Date of Service February 20, 2019 Assessment & Plan (1) Diastolic CHF, acute on chronic: - Admit to tele - Initial troponin negative, will trend - EKG reviewed and is bradycardic, no ST wave changes or signs of ischemia. - Check 2 D echo - last showed grade 2 diastolic dysfunction in Dec 2017 - If negative enzymes can consider a stress test tomorrow morning. - PT/OT consulted - Pt follows with [facility] as an outpatient, was recently seen for routine followup within the last month. - Continue current dose of Bumex 4 mg po daily, will give extra 2 mg IV now and assess I/Os, daily weight, HH/low sodium diet/DM diet, fluid restriction - Dry weight 217, currently pt reports weight of 240 lbs. - Low sodium diet will need to be discussed - it technician consult ordered - pt eats processed meats (hot dogs), fried chicken, chicken noodle soup, etc at baseline. - Exercise regimen should be encouraged along with weight loss - Supported pt on not smoking for 4 years. - Check A1C and lipid panel with am labs (2) Dyspnea: - Secondary to acute on chronic diastolic heart failure exacerbation - Check d-dimer, coags and dopplers of BLE now to lower suspicion for PE. 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 Otherwise works a standing job at [employer]. - CTA was considered but not obtained due to elevated Cr. level. Can further consider pending am PRP (3) Hypertension: - Bp has been well controlled - Hold lisinopril 20 mg daily with elevated Cr. Resume once able or if BP trends upward - Cont metoprolol succinate 100 mg daily (4) Diabetes: - Glucose elevated at 400 upon admission - Will continue on Lantus 120 U QPM and 35 U TID with and ISS with accuchecks achs - Glycemic pharmacy consult - Last A1C = 9.7 but this was from years ago in our system. Pt reports his last A1C was around 13 and was drawn between 1-2 months ago. - [facility] [place], clinical pharmacist is Radha Castro and can be reached at [phone]. (5) Hyponatremia: - Na = 129, follow with PRP - Additional bumex being given now so will watch closely. Hold off on fluids due to diastolic HF and volume overload (6) Hyperkalemia: - K = 5.9, follow am labs - Pt is taking supplementation - will cut this in half now to help reduce level but pt will be receiving extra bumex. (7) HLD (hyperlipidemia): - Cont statin therapy (8) WHIT (obstructive sleep apnea): - continue Cpap HS (9) Obesity (BMI 30-39.9): - BMI =38.8, diet and exercise will need to be encouraged prior to discharge (10) COSMO (acute kidney injury): - Cr. elevated at 2.59, pt baseline seems to be around 1.1 - Hold nephrotoxins and renally dose medications - Hold lisinopril since BP is acceptable - Will continue to diuresis with Bumex at this time as appears edematous in BLE - follow prp with am labs - CTA was considered however not done due to elevated Cr. Will order dopplers of BLE due to edema to r/o dvt. May discuss with radiology, also may be able to do the study tomorrow pending am labs. (11) DVT prophylaxis: - heparin subq History of Present Illness Chief Complaint: Shortness of breath Primary Care Provider: Marbella Gomez This is 53 yo M with PMHx of diastolic CHF, HTN, HLD, DM II with significant insulin resistance, obesity with BMI of 38.8, GERD, and WHIT on cpap HS, who presents with worsening shortness of breath while at rest. 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 He stopped at a [employer] due to worsening leg cramping, which commonly occurs for him since he's been taking magnesium and when his potassium is low, and drank a gatorade. He took his morning medications while at home prior to coming to the ER. Of note, his glucose was around 300 after drinking the gatorade. Pt notes his weight currently is around 240, where his dry weight is ~217 lbs. He has been taking his prescribed bumex 4 mg daily and metolazone 5 mg daily as directed, despite not feeling like swelling in legs has improved. He denies any chest pain, palpitations, flutter, lightheadedness, or dizziness. 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 Then as another job he works behind the [employer] at [employer]. He denies routinely exercising. Pt quite smoking about 4 yrs ago, previously had smoked 2 ppd x 30 years. Allergies Allergy/AdvReac Type Severity Reaction Status Date / Time amitriptyline AdvReac Unknown Verified 02/20/19 13:44 Home Medications Home Medications Medication Instructions Recorded Confirmed Type aspirin [Aspir-81] 81 mg PO DAILY 08/02/18 02/20/19 History atorvastatin 80 mg PO DAILY 08/02/18 02/20/19 History bumetanide 4 mg PO DAILY 08/02/18 02/20/19 History insulin aspart U-100 [Novolog 35 unit SUBCUT TIDM 08/02/18 02/20/19 History U-100 Insulin aspart] insulin glargine [Lantus U-100 120 units SUBCUT QPM 08/02/18 02/20/19 History Insulin] lisinopril 20 mg PO DAILY 08/02/18 02/20/19 History magnesium oxide 400 mg PO DAILY 08/02/18 02/20/19 History metolazone 5 mg PO DAILY 08/02/18 02/20/19 History metoprolol succinate 100 mg PO DAILY 08/02/18 02/20/19 History omeprazole 20 mg PO QAM 08/02/18 02/20/19 History potassium chloride 20 meq PO BID 08/02/18 02/20/19 History tramadol 50 mg PO TID PRN 08/02/18 02/20/19 History diltiazem HCl 180 mg PO DAILY 02/20/19 02/20/19 History omega 6-[id number]-gxu-fish oil [Fish Oil] 1 cap PO DAILY 02/20/19 02/20/19 History Past Med/Surg History Medical History Diastolic CHF, acute on chronic COSMO (acute kidney injury) Obesity (BMI 30-39.9) HLD (hyperlipidemia) Hyperkalemia Hyponatremia Dyspnea Diabetes Hypertension Acute CHF Hyperglycemia Rib pain on left side (Acute) Family History Other Coronary heart disease Diabetes Hypertension Social History marital status: Current Living Situation: Spouse current occupational status: employed Feels Safe at Home: Yes Smoking Status: Former smoker Review of Systems Constitutional: No fever, sweats or chills Eyes: No diplopia, no worsening or blurred vision ENT: normal hearing, no trouble swallowing Respiratory: No cough, sputum. + dyspnea at rest and on exertion Cardiovascular: No chest pain, tightness or palpitations Abdomen: No pain, nausea, vomiting, diarrhea or constipation Musculoskeletal: + bilateral hip joint pain after a long work day, no calf pain, + lower extremity swelling Neurologic: No weakness, numbness/tingling, or balance problems Psychiatric: No anxiety or depression Skin: No rash or itch Physical Exam Vital Signs (Past 24 Hours): Last Vital Signs Temp 36.9 C 02/20/19 12:20 Pulse 59 L 02/20/19 14:11 Resp 16 02/20/19 14:11 BP 102/58 L 02/20/19 14:11 Pulse Ox 97 02/20/19 14:11 Physical Exam: Exam as done by Modesta Duval DO: Constitutional: WD/WN, vitals as above Eyes: normal visual thomas by confrontation and + anicteric sclerae Neck: normal visual inspection and trachea midline Respiratory: normal respiratory effort, lungs clear to auscultation Cardiovascular: Rate/Rhythm: regular rate and regular rhythm Gastrointestinal (Abdomen): Inspection/Auscultation: + abdomen distended Percussion/Palpation: abdomen soft; abdomen nontender Musculoskeletal: Head/Neck/Chest: normocephalic and head atraumatic 2+ pitting LE edema, + pedal pulses Skin: no rashes, warm and dry Neurologic: awake; not confused Speech / Cognition: normal speech Psychiatric: A+Ox3, euthymic affect Lymphatic: Exam as done by Modesta Duval DO Results & Data Diagnostic Findings TWO VIEW CHEST CLINICAL HISTORY: Dyspnea. Rales on physical examination. FINDINGS: PA and lateral chest radiographs are compared to study dated 08/02/2018. The cardiomediastinal silhouette is unremarkable. The lungs and pleural spaces are clear. There is no pneumothorax. The bony thorax appears intact. IMPRESSION: No active disease in the chest. ECG Additional Comments: 20-FEB-2019 12:30:02 [facility] Sinus bradycardia Otherwise normal ECG When compared with ECG of 02-AUG-2018 03:27, Vent. rate has decreased BY 32 BPM 25mm/s 10mm/mV 150Hz 8.0 SP2 12SL 241 [place]: 15 Referred by: REFERRED SELF Unconfirmed Vent. rate 58 BPM [place] interval 198 ms QRS duration 90 ms QT/QTc 388/380 ms P-R-T axes 26 -17 35 Code Status & VTE Plan Code Status Full - discussed at bedside, pt would not want heroic measures. Supervising Physician Co-Signing Physician Notes Pt seen and examined by me. States he is no longer SOB at rest. Has not been OOB to assess this. Still with some chest pressure but better and no javier pain. States he weighs himself 2-3 x day and has noted increase of 22 lbs in the last month or so. He states he feels like his UOP is less than usual. He weighs himself pre and post urination if he as at home and notes there is not much difference in his weight after urination. He feels like all of the weight gain is in his LE. He does note that he has had to loosen his belt. Tolerating PO without issue. 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 He eats 2 [employer] hotdogs for lunch on those days. 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. He states he might eat a piece of deli meat on occasion, but he tries to avoid it due to sodium content. When he works there he generally eats a BLT sandwich with chips or fried chicken. He often eats chicken noodle soup as well, but not much in the last 1.5 months. He checks his BS daily and it runs 160-180 generally. This AM it was 300. He had a gatorade just prior to coming to the ED. He does not drink much water in general. Pt states he is compliant with his bumex dosing and insulin. Does not miss. 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
--- NOTE | 2019-02-20 17:11 | Emergency Department Note ---
Entered by Viky Pierre acting as a scribe for History of Present Illness General Chief complaint: Cardiac Assessment Stated complaint: TROUBLE BREATHING-DYSTOLIC CONGESTIVE HEART FAILUR Time Seen by Provider: 02/20/19 12:27 Source: patient History of Present Illness Onset (ago): week(s) 1 Location: chest Pain Consistency: + intermittent Maximum Pain Intensity: 0 Quality: + other (shortness of breath) Relieved By: + other (Gatorade); not by medication (Bumex) Associated symptoms: + denies other symptoms (hemoptysis) and + other (weight gain, leg cramping, twinges in chest); no chest pain and no cough The patient is a 53 year old male who presents to the Emergency Room with complaints of intermittent shortness of breath starting a week ago. The patient states that he believes he is retaining fluid and that is why he is having a hard time breathing. He states that he has noticed a 15lb gain over the past week in his weight. He notes that he has been taking his 50 mg of a Bumex a day and maybe missed one dose in the last week. The patient complains of his legs cramping and intermittent twinges in his chest. He states that it got better somewhat after drinking Gatorade. The patient denies wearing oxygen at home, chest pain, cough, hemoptysis, recent travel, and use of hormone pills or creams. Home Medications Home Medications Medication Instructions Recorded Confirmed Type aspirin [Aspir-81] 81 mg PO DAILY 08/02/18 02/20/19 History atorvastatin 80 mg PO DAILY 08/02/18 02/20/19 History bumetanide 4 mg PO DAILY 08/02/18 02/20/19 History insulin aspart U-100 [Novolog 35 unit SUBCUT TIDM 08/02/18 02/20/19 History U-100 Insulin aspart] insulin glargine [Lantus U-100 120 units SUBCUT QPM 08/02/18 02/20/19 History Insulin] lisinopril 20 mg PO DAILY 08/02/18 02/20/19 History magnesium oxide 400 mg PO DAILY 08/02/18 02/20/19 History metolazone 5 mg PO DAILY 08/02/18 02/20/19 History metoprolol succinate 100 mg PO DAILY 08/02/18 02/20/19 History omeprazole 20 mg PO QAM 08/02/18 02/20/19 History potassium chloride 20 meq PO BID 08/02/18 02/20/19 History tramadol 50 mg PO TID PRN 08/02/18 02/20/19 History diltiazem HCl 180 mg PO DAILY 02/20/19 02/20/19 History omega 9-eyf-qtv-fish oil [Fish Oil] 1 cap PO DAILY 02/20/19 02/20/19 History Allergies Allergy/AdvReac Type Severity Reaction Status Date / Time amitriptyline AdvReac Unknown Verified 02/20/19 13:44 Past Med/Surg History Medical History Diastolic CHF, acute on chronic COSMO (acute kidney injury) Obesity (BMI 30-39.9) HLD (hyperlipidemia) Hyperkalemia Hyponatremia Dyspnea Diabetes Hypertension Acute CHF Hyperglycemia Rib pain on left side (Acute) Family History Other Coronary heart disease Diabetes Hypertension Social History marital status: Current Living Situation: Spouse current occupational status: employed Feels Safe at Home: Yes Smoking Status: Former smoker Review of Systems See HPI for pertinent positives & negatives. and A total of 10 systems reviewed and were otherwise negative Physical Exam Vital Signs Vital Signs - 24 hr 02/20/19 12:20 02/20/19 13:00 02/20/19 13:01 Temperature 36.9 C Temperature Source Oral Sepsis Recent Fever Within 48 Hours No Sepsis Action Taken by Nursing No Action Required Pulse Rate 57 L Pulse Rate [Apical] 60 Pulse Rate from SpO2 Sensor Pulse Rhythm Regular Pulse Strength Normal Respiratory Rate 24 16 Respiratory Effort / Characteristics Non-Labored Spontaneous Respiratory Depth Normal Blood Pressure 108/54 L Blood Pressure [Right Arm] 126/58 L Blood Pressure Mean 72 Blood Pressure Mean [Right Arm] 80 Blood Pressure Position Sitting Pulse Oximetry 99 98 Oxygen Delivery Method Room Air Room Air 02/20/19 13:55 02/20/19 14:11 02/20/19 15:17 Temperature Temperature Source Sepsis Recent Fever Within 48 Hours Sepsis Action Taken by Nursing Pulse Rate Pulse Rate [Apical] 58 L 59 L 57 L Pulse Rate from SpO2 Sensor Pulse Rhythm Pulse Strength Respiratory Rate 16 16 15 Respiratory Effort / Characteristics Respiratory Depth Blood Pressure Blood Pressure [Right Arm] 83/47 L 102/58 L 118/62 Blood Pressure Mean Blood Pressure Mean [Right Arm] 59 72 80 Blood Pressure Position Pulse Oximetry 96 97 97 Oxygen Delivery Method Room Air Room Air Room Air 02/20/19 15:30 02/20/19 16:00 02/20/19 16:30 Temperature Temperature Source Sepsis Recent Fever Within 48 Hours Sepsis Action Taken by Nursing Pulse Rate 56 L 55 L 57 L Pulse Rate [Apical] Pulse Rate from SpO2 Sensor 57 L 55 L 56 L Pulse Rhythm Pulse Strength Respiratory Rate 13 12 14 Respiratory Effort / Characteristics Respiratory Depth Blood Pressure 104/65 112/65 108/66 Blood Pressure [Right Arm] Blood Pressure Mean 78 80 80 Blood Pressure Mean [Right Arm] Blood Pressure Position Pulse Oximetry 95 96 97 Oxygen Delivery Method Room Air Room Air Room Air 02/20/19 17:00 Temperature Temperature Source Sepsis Recent Fever Within 48 Hours Sepsis Action Taken by Nursing Pulse Rate 55 L Pulse Rate [Apical] Pulse Rate from SpO2 Sensor 55 L Pulse Rhythm Pulse Strength Respiratory Rate 14 Respiratory Effort / Characteristics Respiratory Depth Blood Pressure 115/66 Blood Pressure [Right Arm] Blood Pressure Mean 82 Blood Pressure Mean [Right Arm] Blood Pressure Position Pulse Oximetry 96 Oxygen Delivery Method Room Air Physical Exam GENERAL: He is oriented to person, place, and time. He appears well-developed and well-nourished. He does not appear distressed. HENT: Exam performed. - Head: Normocephalic and atraumatic. - Right Ear: External ear normal. No mastoid tenderness. - Left Ear: External ear normal. No mastoid tenderness. - Mouth/Throat: The oropharynx is clear and moist. No trismus in the jaw. No dental abscesses or uvula swelling. No oropharyngeal exudate or tonsillar abscesses. EYES: Conjunctivae and EOM are normal. Pupils are equal, round, and reactive to light. Right eye exhibits no discharge. Left eye exhibits no discharge. No scleral icterus. NECK: Normal range of motion. Neck supple. No JVD present. No spinous process tenderness present. No carotid bruit present. No rigidity. No tracheal deviation and normal range of motion present. No Brudzinski's sign and no Kernig's sign noted. CV: Normal rate, regular rhythm, normal heart sounds and intact distal pulses. There is no peripheral edema. Palpable radial pulses bue. PULM/CHEST: Effort normal and breath sounds normal. No respiratory distress. No stridor. He has no wheezes. He has rales at bases on his lungs. - Chest Wall: He exhibits no tenderness. ABD: The abdomen is soft. Bowel sounds are normal. He has no distension. No mass is present. There is no tenderness. There is no rebound, no guarding, no Rowell's sign and no tenderness at McBurney's point. Rovsig negative. MUSC/SKEL: Normal range of motion. There is no peripheral edema, tenderness or deformity. LYMPH: No cervical adenopathy. NEURO: He is alert and oriented to person, place, and time. He has normal strength. No cranial nerve deficit or sensory deficit. Coordination and gait no rmal. GCS eye subscore is 4. GCS verbal subscore is 5. GCS motor subscore is 6. Cerebellar tests wnl. SKIN: Folliculitis over the anterior chest wall. Skin is warm and dry. He is not diaphoretic. PSYCH: He has a normal mood and affect. Behavior is normal. Judgment and thought content normal. Course 1231: The patient was evaluated in room A3, and a complete history and physical examination were performed. 1406: I reevaluated the patient and his vital signs are stable. His labs show a sodium of 129, which is at baseline. His potassium is at 5.7, which is at baseline. His creatinine is 2.59 which is up from his baseline of 1.5. His chest x-ray was negative for pulmonary edema and cardiomegaly. His Pro BNP is negative. His troponin is negative. The patient will be bought in for rule out ACS given his chest pain and dyspnea. This was discussed with Dr. Wagner Hospitalist who is in agreement. Consultations Consultation #1: I reviewed the patient's case with Dr. Rosy HUBBARD Hospitalist. She will evaluate the patient for further management. Time: 14:03 Administered Medications Discontinued Medications Aspirin (Aspirin) 324 mg PO NOW STA Stop: 02/20/19 12:37 Last Admin: 02/20/19 12:58 Dose: Not Given Documented by: [id number] Aspirin (Aspirin Chew) Confirm Administered Dose 324 mg .ROUTE .STK-MED ONE Stop: 02/20/19 12:57 Last Admin: 02/20/19 12:58 Dose: 324 mg Documented by: [id number] Medical Decision Making Medical Records Attestation: I reviewed the patient's medical records. Home Medications Current Medication List: was personally reviewed by me Laboratory Data Attestation: I reviewed the patient's lab results. Result diagrams: 02/20/19 12:44 02/20/19 12:44 Lab Results 02/20/19 02/20/19 Range/Units 12:44 12:44 WBC 7.98 (4.8-10.8) K/uL RBC 4.19 L (4.7-6.1) M/uL Hgb 12.1 L (14.0-18.0) g/dL Hct 35.0 L (42-52) % MCV 83.5 (80-100) fL MCH 28.9 (25-34) pg MCHC 34.6 (32-36) g/dL RDW Std Deviation 39.0 (36.4-46.3) fL RDW Coeff of Diane 12.9 (11.5-14.5) % Plt Count 209 (130-400) K/uL MPV 10.8 H (7.4-10.4) fL Immature Gran % (Auto) 0.5 % Neut % (Auto) 54.5 % Lymph % (Auto) 36.0 % [place] % (Auto) 6.1 % Eos % (Auto) 2.3 % Baso % (Auto) 0.6 % Immature Gran # (Auto) 0.04 H (0.00-0.02) K/uL Neut # (Auto) 4.35 (1.4-6.5) K/uL Lymph # (Auto) 2.87 (1.2-3.4) K/uL [place] # (Auto) 0.49 (0.11-0.59) K/uL Eos # (Auto) 0.18 (0-0.5) K/uL Baso # (Auto) 0.05 (0-0.2) K/uL Sodium 129 L (136-145) mmol/L Potassium 5.7 H (3.5-5.1) mmol/L Chloride 97 L (98-107) mmol/L Carbon Dioxide 21 (21-32) mmol/L Anion Gap 11.0 (3-11) BUN 49 H (7-18) mg/dl Creatinine 2.59 H (0.6-1.4) mg/dl Est Cr Clr Drug Dosing 38.6 ml/min Est GFR ( Amer) 31.6 Est GFR (Non-Af Amer) 27.3 BUN/Creatinine Ratio 19.0 (10-20) Glucose 400 H* (70-99) mg/dl Calcium 8.6 (8.5-10.1) mg/dl Magnesium 1.8 (1.8-2.4) mg/dl Troponin I < 0.015 (0-0.045) ng/ml NT-Pro-B Natriuret Pep 65 (0-900) pg/ml Beta-Hydroxybutyric Acd (0.2-2.81) mg/dl Imaging Data Radiologist's Impression: Radiology results as stated below per my review and the radiologist's interpretation: TWO VIEW CHEST CLINICAL HISTORY: Dyspnea. Rales on physical examination. FINDINGS: PA and lateral chest radiographs are compared to study dated 08/02/2018. The cardiomediastinal silhouette is unremarkable. The lungs and pleural spaces are clear. There is no pneumothorax. The bony thorax appears intact. IMPRESSION: No active disease in the chest. Electronically signed by: Fernando Carver M.D. 02/20/2019 1:35 PM ECG Data Attestation: I personally reviewed and interpreted this ECG as follows: Indication: SOB/dyspnea Rate (beats per minute): 58 Rhythm: sinus rhythm Findings: + other (CA, QRS and QT-c intervals are within normal limits); no ST depression and no ST elevation Blood Pressure Blood Pressure Findings: Low blood pressure Blood Pressure Disposition: further management by hospitalist MDM Narrative vital signs are stable. His labs show a sodium of 129, which is at baseline. His potassium is at 5.7, which is at baseline. His creatinine is 2.59 which is up from his baseline of 1.5. His chest x-ray was negative for pulmonary edema and cardiomegaly. His Pro BNP is negative. His troponin is negative. The patient will be bought in for rule out ACS given his chest pain and dyspnea. This was discussed with Dr. Wagner Hospitalist who is in agreement. Impression & Plan Dyspnea, Chest pain Discharge Plan Visit Data Chief Complaint: Cardiac Assessment Stated Complaint: TROUBLE BREATHING-DYSTOLIC CONGESTIVE HEART FAILUR ED Provider: Samy Rodriguez Discharge Problem: Dyspnea, Chest pain Patient Disposition: Being Evaluated by Hospitalist Forms Stand Alone Forms: My [facility] Prescriptions Prescriptions: No Action Lantus U-100 Insulin 100 unit/mL Solution 120 units subcut QPM RF: 0 Novolog U-100 Insulin aspart 100 unit/mL Solution 35 unit SUBCUT TIDM RF: 0 omeprazole 20 mg Capsule,Delayed Release(Dr/Ec) 20 mg PO QAM RF: 0 bumetanide 2 mg Tablet 4 mg PO DAILY RF: 0 magnesium oxide 400 mg Capsule 400 mg PO DAILY RF: 0 lisinopril 20 mg Tablet 20 mg PO DAILY RF: 0 aspirin [Aspir-81] 81 mg Tablet,Delayed Release (Dr/Ec) 81 mg PO DAILY RF: 0 atorvastatin 80 mg Tablet 80 mg PO DAILY RF: 0 metoprolol succinate 50 mg Tablet Extended Release 24 Hr 100 mg PO DAILY RF: 0 potassium chloride 20 mEq Tablet Extended Release 20 meq PO BID RF: 0 metolazone 5 mg Tablet 5 mg PO DAILY RF: 0 tramadol 50 mg Tablet 50 mg PO TID PRN (Reason: Pain) RF: 0 omega 7-rdg-ddf-fish oil [Fish Oil] 1,000 mg (120 mg-180 mg) Capsule 1 cap PO DAILY RF: 0 diltiazem HCl 180 mg Capsule,Extended Release 24 Hr 180 mg PO DAILY RF: 0 Referrals Referrals: Marbella Gomez PA-C [Primary Care Provider] - Discharge Problem: Dyspnea Qualifiers: Dyspnea type: unspecified Qualified Code(s): R06.00 - Dyspnea, unspecified Chest pain Qualifiers: Chest pain type: unspecified Qualified Code(s): R07.9 - Chest pain, unspecified The scribe's documentation has been prepared under my direction and personally reviewed by me in its entirety. I confirm that the note above accurately reflects all work, treatment, procedures, and medical decision making performed by me.
[2019-02-20] MEDS ORDERED: CARBOHYDRATES FOR HYPOGLYCEMIA PO PRN (18:03)
[2019-02-20] MEDS ORDERED: ONDANSETRON INJ 2 MG/ML 2 ML VIAL IV PRN (18:03)
[2019-02-20] MEDS ORDERED: GLUCOSE 10 TABS/TUBE PO PRN (18:03)
[2019-02-20] MEDS ORDERED: INSULIN ASPART SQ SCH (18:03)
[2019-02-20] MEDS ORDERED: GLUCOSE 40% GEL 15 GM TUBE PO PRN (18:03)
[2019-02-20] MEDS ORDERED: TRAMADOL HCL 50 MG TABLET PO PRN (18:03)
[2019-02-20] MEDS ORDERED: DEXTROSE 50% 50 ML SYRINGE IV PRN (18:03)
[2019-02-20] MEDS ORDERED: GLUCAGON FOR INJ 1 MG VIAL SQ PRN (18:03)
[2019-02-20] MEDS ORDERED: BUMETANIDE 2 MG in SYRINGE 0 ML IV STA (18:47)
[2019-02-20] MEDS ORDERED: PHARMACY GLYCEMIC MGMT CONSULT PRN (18:47)
[2019-02-20 18:49] LABS: D Dimer 220 ug/L FEU (0-500)
--- NOTE | 2019-02-20 19:19 | Ultrasound Report ---
US venous doppler LE BI CLINICAL HISTORY: Shortness of breath, leg edema. Possible DVT. COMPARISON STUDY: December 25, 2017 FINDINGS: Real-time and color flow Doppler imaging were performed. Flow was seen within the femoral, popliteal and calf veins with no intraluminal thrombus demonstrated. The saphenous vein is patent. IMPRESSION: No evidence of lower extremity DVT. Electronically signed by: Kayode Soto M.D. 02/20/2019 7:17 PM
[2019-02-20] MEDS: ATORVASTATIN 40 MG TAB PO SCH (19:39)
[2019-02-20] MEDS: metOLazone 5 MG TABLET PO SCH (19:40)
[2019-02-20] MEDS: INSULIN ASPART 100 UNITS/ML 3 ML PEN SC SCH ×2 (19:52→21:39)
[2019-02-20] MEDS ORDERED: POTASSIUM CHLORIDE 20 MEQ TABCR PO SCH (21:00)
[2019-02-20] MEDS ORDERED: INSULIN GLARGINE 100 UNIT/ML VIAL SQ ONE (21:30)
[2019-02-20] MEDS: HEPARIN SOD 5,000 UNIT/0.5 ML VIAL SQ SCH (21:34)
[2019-02-20] MEDS: POTASSIUM CHLORIDE 10 MEQ TABCR PO SCH (22:07)
[2019-02-21] MEDS: INSULIN ASPART 100 UNITS/ML 3 ML PEN SC SCH ×6 (00:03→21:08)
[2019-02-21 04:20] LABS: Hematocrit (blood only) 34.1 % (42-52); Hemoglobin 11.8 g/dL (14.0-18.0); Mean Corpuscular Hgb Conc 34.6 g/dL (32-36); Mean Corpuscular Volume 82.2 fL (80-100); Mean Platelet Volume 10.6 fL (7.4-10.4); Platelet Count 195 K/uL (130-400); RDW Coefficient of Variation 12.8 % (11.5-14.5); RDW Standard Deviation 38.3 fL (36.4-46.3); Red Blood Count 4.15 M/uL (4.7-6.1); White Blood Count 7.86 K/uL (4.8-10.8)
[2019-02-21 04:35] LABS: Alanine Aminotransferase 40 U/L (12-78); Albumin Level 3.2 gm/dl (3.4-5.0); Aspartate Aminotransferase 26 U/L (15-37); BUN Creatinine Ratio 26.1 (10-20); Blood Urea Nitrogen 50 mg/dl (7-18); Calcium 8.3 mg/dl (8.5-10.1); Carbon Dioxide 28 mmol/L (21-32); Chloride 99 mmol/L (98-107); Est GFR (African American) 45.4; Est GFR (Non-African American) 39.2; Glucose 181 mg/dl (70-99); Magnesium 1.8 mg/dl (1.8-2.4); Potassium 4.6 mmol/L (3.5-5.1); Sodium 134 mmol/L (136-145)
[2019-02-21 04:39] LABS: Albumin Globulin Ratio 0.9 (0.9-2); Alkaline Phosphatase 106 U/L (45-117); Bilirubin,Total 0.3 mg/dl (0.2-1); Chol HDL Ratio 6; Cholesterol 163 mg/dl (0-200); Globulin 3.7 gm/dl (2.5-4.0); HDL Cholesterol 27 mg/dl; Phosphorus 4.5 mg/dl (2.5-4.9); Total Protein 6.9 gm/dl (6.4-8.2); Triglycerides 770 mg/dl (0-150); Troponin I < 0.015 ng/ml (0-0.045)
[2019-02-21] MEDS: HEPARIN SOD 5,000 UNIT/0.5 ML VIAL SQ SCH ×3 (05:33→21:11)
[2019-02-21 06:52] LABS: Estimated Average Glucose 295 mg/dl; Hemoglobin A1C 11.9 % (4.5-5.6)
[2019-02-21] MEDS ORDERED: PERFLUTREN LIPID MICROSPHERE (DEFINITY) IV ONE (07:16)
[2019-02-21] MEDS ORDERED: PNEUMOCOCCAL POLYSACCHARIDES 25 MCG/0.5 ML VIAL/SYR IM ONE (08:00)
[2019-02-21] MEDS ORDERED: PNEUMOCOCCAL ADMINISTRATION CHARGE ONE (08:00)
[2019-02-21] MEDS: metOLazone 5 MG TABLET PO SCH (08:52)
[2019-02-21] MEDS: PANTOprazole 40 MG TAB PO SCH (08:52)
[2019-02-21] MEDS: ASPIRIN 81 MG ECTAB PO SCH (08:52)
[2019-02-21] MEDS: MAGNESIUM OXIDE 400 MG TAB PO SCH (08:52)
[2019-02-21] MEDS: dilTIAZem ER 180 MG CAPCR PO SCH (08:52)
[2019-02-21] MEDS: POTASSIUM CHLORIDE 10 MEQ TABCR PO SCH ×2 (08:53→16:50)
[2019-02-21] MEDS: OMEGA-3 (PURIFIED FISH OIL) 1 GM CAP PO SCH (08:53)
[2019-02-21] MEDS: ATORVASTATIN 40 MG TAB PO SCH (08:53)
[2019-02-21] MEDS: METOPROLOL SUCC 50MG EXT REL TAB PO SCH (08:53)
[2019-02-21] MEDS ORDERED: BUMETANIDE 2 MG in SYRINGE 0 ML IV ONE (10:00)
--- NOTE | 2019-02-21 10:59 | Cardiology Consultation ---
Date of Consultation February 21, 2019 Assessment & Plan (1) Diastolic CHF, acute on chronic: Patient is admitted with acute on chronic diastolic CHF. He presented with worsening shortness of breath, weight gain, and abdominal distension. His acute exacerbation of CHF is likely secondary to dietary indiscretion as he has been eating large quantities of salt in the outpatient setting. He has been given one dose IV Bumex 2 mg thus far, but he continues to appear hypervolemic with a significant amount of lower extremity edema on exam. His creatinine did improve overnight with some diuresis. Will continue to diurese with IV Bumex 2 mg BID. Metolazone will be placed on hold for the time being. Continue to monitor renal function closely. Daily weights recommended. Monitor I's&O's closely. Low sodium diet, <2,000 mg daily, recommended. (2) HLD (hyperlipidemia): Continue statin therapy. (3) Hypertension: BP has been well controlled. IV Bumex 2 mg BID initiated for further diuresis, as noted above. Otherwise, continue current antihypertensive therapy with diltiazem and metoprolol. History of Present Illness Reason for Consultation: Diastolic CHF Requesting Physician: Jaida Lazo PA-C History of Present Illness Mr. Swartz is a 53-year-old male with a past medical history significant for diastolic CHF, hypertension, type 2 diabetes mellitus, dyslipidemia, probable WHIT, and obesity who presented to the ED yesterday with complaints of worsening shortness of breath. The patient states that his breathing has been worsening over the last week or so. He initially noted increased shortness of breath with exertion, but yesterday, he progressed to the point where he was short of breath, even while sitting at rest. Although, patient denies shortness of breath when lying down. His usual weight at home appears to be around 225-230 lbs according to his home scales, and his weight gradually increased up to 242 lbs. He notes chronic lower extremity edema over the last several months, which he believes has been stable in nature. He has noted abdominal distension, and his pants are now much tighter around his waist. He chronically takes Bumex 4 mg daily, and he also takes metolazone 5 mg at the same time that he takes his Bumex dose. He admits to not following a low sodium diet. He states that he cannot afford low sodium food options, and it is cheaper for him to eat high sodium foods. He admits to eating Ramen noodles and lunch meat regularly. He reports occasional "flash" of chest pain about once a week, which lasts a second in duration. He denies any other form of chest pain or prolonged episodes of chest discomfort. He denies palpitations, lightheadedness, syncope, or presyncope. He denies abnormal bleeding such as melena, hematochezia, or hematuria. Review of Systems: As noted in HPI. All other 10 point ROS are reviewed and otherwise negative at this time. Family history: Father from lung cancer. Mother from complications of pneumonia. No early coronary artery disease. Social history: He lives with his and son. 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 He has a 30 pack year of tobacco use, bu the quit smoking 4 years ago. He notes rare alcohol use. Allergies Allergy/AdvReac Type Severity Reaction Status Date / Time amitriptyline AdvReac Unknown Verified 03/01/19 14:27 Home Medications Home Medications Medication Instructions Recorded Confirmed Type Lantus U-100 Insulin 120 units SUBCUT QPM 08/02/18 03/01/19 History Novolog U-100 Insulin aspart 35 unit SUBCUT TIDM 08/02/18 03/01/19 History aspirin [Aspir-81] 81 mg PO QPM 08/02/18 03/01/19 History atorvastatin 80 mg PO QPM 08/02/18 03/01/19 History lisinopril 20 mg PO QPM 08/02/18 03/01/19 History magnesium oxide 400 mg PO QPM 08/02/18 03/01/19 History metolazone 5 mg PO QPM 08/02/18 03/01/19 History metoprolol succinate 100 mg PO QPM 08/02/18 03/01/19 History omeprazole 20 mg PO QPM 08/02/18 03/01/19 History tramadol 50 mg PO TID PRN 08/02/18 03/01/19 History diltiazem HCl 180 mg PO QPM 02/20/19 03/01/19 History omega 2-jbm-suq-fish oil [Fish Oil] 1 cap PO QPM 02/20/19 03/01/19 History bumetanide 2 mg PO BID #60 tab 02/24/19 03/01/19 Rx gabapentin 600 mg PO BID 30 Days #60 tab 02/24/19 03/01/19 Rx potassium chloride [Klor-Con M10] 10 meq PO QPM 02/27/19 03/01/19 History Patient History Medical History Obesity (BMI 30-39.9) HLD (hyperlipidemia) Hyperkalemia Diabetes Hypertension Acute CHF Hyperglycemia Rib pain on left side (Acute) COSMO (acute kidney injury) Diastolic CHF, acute on chronic Dyspnea Hyponatremia Surgical History No pertinent past surgical history Family History Other Coronary heart disease Diabetes Hypertension Social History Preferred Language: Malagasy Communication Ability: Effective Beliefs That Will Affect Care: None marital status: Current Living Situation: Spouse current occupational status: employed Feels Safe at Home: Yes Smoking Status: Former smoker Hx Alcohol Use: Yes Hx Substance Use: No Physical Exam Vital Signs (Past 24 Hours): Last Vital Signs Temp 36.6 C 02/21/19 07:39 Pulse 65 02/21/19 08:00 Resp 24 02/21/19 07:39 BP 129/76 02/21/19 07:39 Pulse Ox 96 02/21/19 07:39 Constitutional: Alert, oriented, in no acute distress HEENT: Head is atraumatic and normocephalic. EOMs intact. Sclera anicteric. Face is symmetric. No perioral cyanosis. Mucous membranes moist. Neck: Supple, no appreciable JVD but difficult exam, no carotid bruits Pulmonary: Normal respiratory effort, clear to auscultation bilaterally Cardiac: Regular rate and rhythm, normal S1 and S2, no gallops, no rubs, no murmurs Extremities: 2+ lower extremity edema bilaterally. No clubbing or cyanosis. Pulses intact Abdomen: Obese. Normal bowel sounds, soft, non-tender, no abdominal mass palpated Skin: Normal skin color, turgor, and pigmentation, no rash, no skin lesions Neurological: Oriented to person, place, and time Results & Data Laboratory Results Laboratory Results WBC 7.86 K/uL (4.8-10.8) 02/21/19 04:08 RBC 4.15 M/uL (4.7-6.1) L 02/21/19 04:08 Hgb 11.8 g/dL (14.0-18.0) L 02/21/19 04:08 Hct 34.1 % (42-52) L 02/21/19 04:08 MCV 82.2 fL (80-100) 02/21/19 04:08 MCH 28.4 pg (25-34) 02/21/19 04:08 MCHC 34.6 g/dL (32-36) 02/21/19 04:08 RDW Std Deviation 38.3 fL (36.4-46.3) 02/21/19 04:08 RDW Coeff of Diane 12.8 % (11.5-14.5) 02/21/19 04:08 Plt Count 195 K/uL (130-400) 02/21/19 04:08 MPV 10.6 fL (7.4-10.4) H 02/21/19 04:08 Immature Gran % (Auto) 0.5 % 02/20/19 12:44 Neut % (Auto) 54.5 % 02/20/19 12:44 Lymph % (Auto) 36.0 % 02/20/19 12:44 [place] % (Auto) 6.1 % 02/20/19 12:44 Eos % (Auto) 2.3 % 02/20/19 12:44 Baso % (Auto) 0.6 % 02/20/19 12:44 Immature Gran # (Auto) 0.04 K/uL (0.00-0.02) H 02/20/19 12:44 Neut # (Auto) 4.35 K/uL (1.4-6.5) 02/20/19 12:44 Lymph # (Auto) 2.87 K/uL (1.2-3.4) 02/20/19 12:44 [place] # (Auto) 0.49 K/uL (0.11-0.59) 02/20/19 12:44 Eos # (Auto) 0.18 K/uL (0-0.5) 02/20/19 12:44 Baso # (Auto) 0.05 K/uL (0-0.2) 02/20/19 12:44 PT 10.0 Seconds (9.0-12.0) 02/21/19 04:08 INR 1.0 (0.9-1.1) 02/21/19 04:08 D-Dimer 220 ug/L FEU (0-500) 02/20/19 18:22 Sodium 134 mmol/L (136-145) L 02/21/19 04:08 Potassium 4.6 mmol/L (3.5-5.1) D 02/21/19 04:08 Chloride 99 mmol/L (98-107) 02/21/19 04:08 Carbon Dioxide 28 mmol/L (21-32) 02/21/19 04:08 Anion Gap 7.0 (3-11) 02/21/19 04:08 BUN 50 mg/dl (7-18) H 02/21/19 04:08 Creatinine 1.92 mg/dl (0.6-1.4) H D 02/21/19 04:08 Est Cr Clr Drug Dosing 49.0 ml/min 02/21/19 04:08 Est GFR ( Amer) 45.4 02/21/19 04:08 Est GFR (Non-Af Amer) 39.2 02/21/19 04:08 BUN/Creatinine Ratio 26.1 (10-20) H 02/21/19 04:08 Glucose 181 mg/dl (70-99) H 02/21/19 04:08 POC Glucose 192 (70-99) H 02/21/19 07:22 Estimat Average Glucose 295 mg/dl 02/21/19 04:08 Hemoglobin A1c 11.9 % (4.5-5.6) H 02/21/19 04:08 Calcium 8.3 mg/dl (8.5-10.1) L 02/21/19 04:08 Phosphorus 4.5 mg/dl (2.5-4.9) 02/21/19 04:08 Magnesium 1.8 mg/dl (1.8-2.4) 02/21/19 04:08 Total Bilirubin 0.3 mg/dl (0.2-1) 02/21/19 04:08 AST 26 U/L (15-37) 02/21/19 04:08 ALT 40 U/L (12-78) 02/21/19 04:08 Alkaline Phosphatase 106 U/L (45-117) 02/21/19 04:08 Troponin I < 0.015 ng/ml (0-0.045) 02/21/19 04:08 NT-Pro-B Natriuret Pep 65 pg/ml (0-900) 02/20/19 12:44 Total Protein 6.9 gm/dl (6.4-8.2) 02/21/19 04:08 Albumin 3.2 gm/dl (3.4-5.0) L 02/21/19 04:08 Globulin 3.7 gm/dl (2.5-4.0) 02/21/19 04:08 Albumin/Globulin Ratio 0.9 (0.9-2) 02/21/19 04:08 Triglycerides 770 mg/dl (0-150) H 02/21/19 04:08 Cholesterol 163 mg/dl (0-200) 02/21/19 04:08 LDL Cholesterol, Calc mg/dl 02/21/19 04:08 VLDL Cholesterol, Calc mg/dl 02/21/19 04:08 HDL Cholesterol 27 mg/dl 02/21/19 04:08 Cholesterol/HDL Ratio 6 02/21/19 04:08 Beta-Hydroxybutyric Acd mg/dl (0.2-2.81) 02/20/19 12:44 Diagnostic Findings CXR: No active disease in chest. Venous doppler: No evidence of lower extremity DVT. EKG: Sinus bradycardia at 58 bpm. Possible inferior infarct. Telemetry monitoring: Sinus rhythm in the 50-70s.
--- NOTE | 2019-02-21 12:40 | Pharmacy Report ---
Pharmacy Glycemic Short Note 2 - Date of Service February 21, 2019 - Glycemic Short BSG Results (Last 24 hours): 02/20/19 02/20/19 02/20/19 12:44 17:57 18:15 Glucose 400 H* POC Glucose 99 100 H 02/20/19 02/20/19 02/21/19 20:52 23:59 04:08 Glucose 181 H POC Glucose 230 H 218 H 02/21/19 02/21/19 02/21/19 04:16 07:22 11:39 Glucose POC Glucose 200 H 192 H 269 H OUTPATIENT ANTIDIABETIC REGIMEN: * Lantus 120 units qpm * Novolog 35 units TIDM ASSESSMENT: * Poorly controlled T2DM, A1C 11.9% and estimated average glucose 295 mg/dL admitted with worsening SOB (likely due to diastolic CHF) * BSGs improved, but still elevated. Will cautiously increase basal and bolus insulin,in order to slowly decrease BSG given patients estimated average glucose * If post prandials continue to be elevated, can tighten carb coverage more aggressively * Patient is ordered a diet and eating Currently receiving: * Basal insulin * Lantus 100 units SQ qpm * Bolus insulin * NovoLog per scale ACHS or Q6hrs while NPO * Goal Range: Low 120 mg/dL - High 160 mg/dL * Correction Factor: 15 mg/dL/unit * Nutritional / Prandial insulin per carb ratio of 1 unit per 5 grams CHO consumed PLAN FOR INPATIENT GLYCEMIC CONTROL: * Hold outpatient oral diabetes medications * Basal insulin * Lantus per scale * 100 units if BSG < 200 * 110 units if BSG 200 or greater * Bolus insulin * NovoLog per scale ACHS or Q6hrs while NPO * Goal Range: Low 120 mg/dL - High 150 mg/dL * Correction Factor: 12 mg/dL/unit * Nutritional / Prandial insulin per carb ratio of 1 unit per 4 grams CHO consumed PLAN FOR DISCHARGE: * N/A
[2019-02-21] MEDS: BUMETANIDE 2 MG in SYRINGE 0 ML IV SCH (16:50)
[2019-02-21] MEDS ORDERED: INSULIN GLARGINE 100 UNIT/ML VIAL SQ SCH (21:00)
[2019-02-21] MEDS ORDERED: GABAPENTIN 300 MG CAP PO ONE (22:32)
--- NOTE | 2019-02-21 22:32 | Hospitalist Progress Note ---
Date of Service February 21, 2019 Assessment & Plan (1) Diastolic CHF, acute on chronic: - Admit to tele - Initial troponin negative, will trend - EKG reviewed and is bradycardic, no ST wave changes or signs of ischemia. - Check 2 D echo - last showed grade 2 diastolic dysfunction in Dec 2017 - PT/OT consulted - Pt follows with [facility] as an outpatient, was recently seen for routine followup within the last month. - IV Bumex 2 mg BID. assess I/Os, daily weight, HH/low sodium diet/DM diet, fluid restriction - Dry weight 217, currently pt reports weight of 240 lbs. - Low sodium diet will need to be discussed - exploration driller consult ordered - pt eats processed meats (hot dogs), fried chicken, chicken noodle soup, etc at baseline. - Exercise regimen should be encouraged along with weight loss - Supported pt on not smoking for 4 years. - A1C is 11.9 (2) Dyspnea: - Secondary to acute on chronic diastolic heart failure exacerbation - Check d-dimer, coags and dopplers of BLE now to lower suspicion for PE. 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 Otherwise works a standing job at [employer]. - CTA was considered but not obtained due to elevated Cr. level. -ON 02/22, this diagnosis seems unlikely. (3) Hypertension: - Bp has been well controlled - Hold lisinopril 20 mg daily with elevated Cr. Resume once able or if BP trends upward - Cont metoprolol succinate 100 mg daily (4) Diabetes: - Glucose elevated at 400 upon admission - Will continue on Lantus 120 U QPM and 35 U TID with and ISS with accuchecks achs - Glycemic pharmacy consult - Last A1C = 9.7 but this was from years ago in our system. Pt reports his last A1C was around 13 and was drawn between 1-2 months ago. - [facility] [place], clinical [facility]ist is Radha Castro and can be reached at [phone]. (5) Hyponatremia: - Na = 129, follow with PRP - Additional bumex being given now so will watch closely. Hold off on fluids due to diastolic HF and volume overload (6) Hyperkalemia: - K = 5.9, Potassium improved today. - Pt is taking supplementation - will cut this in half now to help reduce level but pt will be receiving extra bumex. (7) HLD (hyperlipidemia): - Cont statin therapy (8) WHIT (obstructive sleep apnea): - continue Cpap HS (9) Obesity (BMI 30-39.9): - BMI =38.8, diet and exercise will need to be encouraged prior to discharge (10) COSMO (acute kidney injury): - Cr. elevated at 2.59, 0n 02/21: 1.9 pt baseline seems to be around 1.1 - Hold nephrotoxins and renally dose medications - Hold lisinopril since BP is acceptable - Will continue to diuresis with Bumex at this time as appears edematous in BLE - follow prp with am labs - CTA was considered however not done due to elevated Cr. (11) DVT prophylaxis: - heparin subq Spent 35 minutes in mangement of patient. This included chart review and discussion of with patient and also discussion with consultants. Subjective Patient reports breathing better, patient has no new complaints today. He still feels short of breath when he ambulates. He has not tried to lie flat. But he fels comfortable sitting up. Review of Systems Constitutional: No fever, sweats or chills Eyes: No diplopia, no worsening or blurred vision ENT: normal hearing, no trouble swallowing Respiratory: No cough, sputum. + dyspnea at rest and on exertion Cardiovascular: No chest pain, tightness or palpitations Abdomen: No pain, nausea, vomiting, diarrhea or constipation Musculoskeletal: + bilateral hip joint pain after a long work day, no calf pain, + lower extremity swelling Neurologic: No weakness, numbness/tingling, or balance problems Psychiatric: No anxiety or depression Skin: No rash or itch Physical Exam Vital Signs (Past 24 Hours): Last Vital Signs Temp 36.7 C 02/21/19 19:34 Pulse 65 02/21/19 22:01 Resp 19 02/21/19 19:34 BP 126/71 02/21/19 19:34 Pulse Ox 98 02/21/19 22:01 Physical Exam: Constitutional: WD/WN, vitals as above Eyes: normal visual thomas by confrontation and + anicteric sclerae Neck: normal visual inspection and trachea midline Respiratory: normal respiratory effort, lungs show bibasilar rales Cardiovascular: Rate/Rhythm: regular rate and regular rhythm Gastrointestinal (Abdomen): Inspection/Auscultation: + abdomen distended Percussion/Palpation: abdomen soft; abdomen nontender Musculoskeletal: Head/Neck/Chest: normocephalic and head atraumatic 2+ pitting LE edema, + pedal pulses Skin: no rashes, warm and dry Neurologic: awake; not confused Speech / Cognition: normal speech Psychiatric: A+Ox3, euthymic affect
[2019-02-21] MEDS: ACETAMINOPHEN 325 MG TAB PO PRN (23:51)
[2019-02-22] MEDS: HEPARIN SOD 5,000 UNIT/0.5 ML VIAL SQ SCH ×3 (05:57→21:20)
[2019-02-22 06:44] LABS: Hematocrit (blood only) 36.1 % (42-52); Hemoglobin 12.6 g/dL (14.0-18.0); Mean Corpuscular Hgb Conc 34.9 g/dL (32-36); Mean Corpuscular Volume 82.6 fL (80-100); Mean Platelet Volume 10.8 fL (7.4-10.4); Platelet Count 198 K/uL (130-400); RDW Coefficient of Variation 12.6 % (11.5-14.5); RDW Standard Deviation 38.1 fL (36.4-46.3); Red Blood Count 4.37 M/uL (4.7-6.1); White Blood Count 7.34 K/uL (4.8-10.8)
[2019-02-22 07:17] LABS: Albumin Level 3.5 gm/dl (3.4-5.0); BUN Creatinine Ratio 29.3 (10-20); Calcium 9.2 mg/dl (8.5-10.1); Creatinine Clr Calc Pharmacy 52.3 ml/min; Est GFR (African American) 49.1; Est GFR (Non-African American) 42.3; Potassium 4.8 mmol/L (3.5-5.1)
[2019-02-22 07:20] LABS: Albumin Globulin Ratio 0.9 (0.9-2); Bilirubin,Total 0.5 mg/dl (0.2-1); Globulin 3.7 gm/dl (2.5-4.0); Total Protein 7.2 gm/dl (6.4-8.2)
[2019-02-22] MEDS: METOPROLOL SUCC 50MG EXT REL TAB PO SCH (07:46)
[2019-02-22] MEDS: ATORVASTATIN 40 MG TAB PO SCH (07:46)
[2019-02-22] MEDS: BUMETANIDE 2 MG in SYRINGE 0 ML IV SCH ×2 (07:46→16:51)
[2019-02-22] MEDS: dilTIAZem ER 180 MG CAPCR PO SCH (07:46)
[2019-02-22] MEDS: ASPIRIN 81 MG ECTAB PO SCH (07:47)
[2019-02-22] MEDS: POTASSIUM CHLORIDE 10 MEQ TABCR PO SCH ×2 (07:47→16:52)
[2019-02-22] MEDS: MAGNESIUM OXIDE 400 MG TAB PO SCH (07:47)
[2019-02-22] MEDS: OMEGA-3 (PURIFIED FISH OIL) 1 GM CAP PO SCH (07:47)
[2019-02-22] MEDS: PANTOprazole 40 MG TAB PO SCH (07:47)
[2019-02-22] MEDS: INSULIN ASPART 100 UNITS/ML 3 ML PEN SC SCH ×4 (07:49→20:12)
--- NOTE | 2019-02-22 13:27 | Pharmacy Report ---
Pharmacy Glycemic Short Note 2 - Date of Service February 22, 2019 - Glycemic Short BSG Results (Last 24 hours): 02/21/19 02/21/19 02/22/19 16:21 20:42 06:10 Glucose 171 H POC Glucose 230 H 151 H 02/22/19 02/22/19 07:21 11:05 Glucose POC Glucose 199 H 285 H OUTPATIENT ANTIDIABETIC REGIMEN: * Lantus 120 units qpm * Novolog 35 units TIDM ASSESSMENT: 02/22 * BSG trended down yesterday, still elevated * Fasting this morning 199, will tighten scale for patient to receive higher lantus dose this evening * Patient received 174 units of insulin yesterday ~75% of patient's home total daily dose; will tighten carb ratio slightly, post-prandial continues to be elvated 02/21 * Poorly controlled T2DM, A1C 11.9% and estimated average glucose 295 mg/dL admitted with worsening SOB (likely due to diastolic CHF) * BSGs improved, but still elevated. Will cautiously increase basal and bolus insulin,in order to slowly decrease BSG given patients estimated average glucose * If post prandials continue to be elevated, can tighten carb coverage more aggressively * Patient is ordered a diet and eating Currently receiving: * Basal insulin * Lantus 100/110 units SQ qpm * Bolus insulin * NovoLog per scale ACHS or Q6hrs while NPO * Goal Range: Low 120 mg/dL - High 160 mg/dL * Correction Factor: 12 mg/dL/unit * Nutritional / Prandial insulin per carb ratio of 1 unit per 4 grams CHO consumed PLAN FOR INPATIENT GLYCEMIC CONTROL: * Hold outpatient oral diabetes medications * Basal insulin * Lantus per scale * 100 units if BSG < 140 * 110 units if BSG 140 or greater * Bolus insulin * NovoLog per scale ACHS or Q6hrs while NPO * Goal Range: Low 120 mg/dL - High 150 mg/dL * Correction Factor: 12 mg/dL/unit * Nutritional / Prandial insulin per carb ratio of 1 unit per 3.5 grams CHO consumed PLAN FOR DISCHARGE: * N/A
--- NOTE | 2019-02-22 14:42 | Cardiology Progress Note ---
Date of Service February 22, 2019 Assessment & Plan (1) Diastolic CHF, acute on chronic: Patient is admitted with acute on chronic diastolic CHF, NYHA class III. He presented with worsening shortness of breath, weight gain, and abdominal distension. His acute exacerbation of CHF is likely secondary to dietary indiscretion as he has been eating large quantities of salt in the outpatient setting. Although his volume status is improving, he remains hypervolemic. His creatinine continues to trend down. Would recommend continued diuresis with IV Bumex 2 mg BID. Metolazone will be placed on hold for the time being. Continue to monitor renal function closely. I would encourage him to ambulate in the halls to assess his shortness of breath. Daily standing weights recommended. Monitor I's&O's closely. Low sodium diet, <2,000 mg daily, recommended. Encourage fluid restriction of 1500 mL per day. He is historically non-compliant with BID diuretic dosing due to the nature of his job. He typically takes Bumex 4 mg and Metolazone 5 mg every morning at the same time. I would encourage him to make an effort to get the metolazone in 30 minutes prior to his Bumex for maximum effect. If he does well with his outpatient diet and fluid intake his current diuretic dose should be sufficient. I would definitely recommend close follow up with the heart failure program as he is high risk for readmission due to non-compliance. He has been scheduled for outpatient heart failure follow up on 03/01/19 at 12:00 pm. (2) HLD (hyperlipidemia): Continue statin therapy. (3) Hypertension: BP has been well controlled. IV Bumex 2 mg BID initiated for further diuresis, as noted above. Otherwise, continue current antihypertensive therapy with diltiazem and metoprolol. Subjective Mr. Swartz is a 53 year old obese male with a history of Hypertension, Insulin Requiring Type 2 DM, Probable WHIT, and dyslipidemia who presented acutely to [facility] on 02/20/2019 with acute hypoxic respiratory Failure secondary to Hypervolemia secondary to dietary indiscretion. Mr. Swartz is feeling better today. He was ambulating around the room and denied shortness of breath. He denies shortness of breath at rest. He was able to lay mostly flat last night to sleep. His is here in the room today. He is responding well to diuretics and is net negative 4.8 L. Echocardiogram performed yesterday was unremarkable. He has normal LV systolic function with EF of 55-60%. There was no noted diastolic dysfunction and no valvar abnormalities. 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 He often eats 2 [employer] hotdogs or a bag of chips for lunch on those days. His main job is at the [employer] at [employer]. When he works there he generally eats a BLT sandwich with soup. He checks his BS daily and it runs 160-180 generally. Physical Exam Vital Signs (Past 24 Hours): Last Vital Signs Temp 36.4 C L 02/22/19 11:05 Pulse 66 02/22/19 11:05 Resp 20 02/22/19 11:05 BP 132/79 02/22/19 11:05 Pulse Ox 96 02/22/19 11:05 Constitutional: Alert, oriented, in no acute distress HEENT: Head is atraumatic and normocephalic. EOMs intact. Sclera anicteric. Face is symmetric. No perioral cyanosis. Mucous membranes moist. Neck: Supple, no appreciable JVD but difficult exam, no carotid bruits Pulmonary: Normal respiratory effort, bibasilar crackles noted Cardiac: Regular rate and rhythm, normal S1 and S2, no gallops, no rubs, no murmurs Extremities: 1-2+ lower extremity edema bilaterally. No clubbing or cyanosis. Pulses intact Abdomen: Obese. Normal bowel sounds, soft, non-tender, no abdominal mass palpated Skin: Normal skin color, turgor, and pigmentation, no rash, no skin lesions Neurological: Oriented to person, place, and time
[2019-02-22] MEDS ORDERED: INSULIN GLARGINE 100 UNIT/ML VIAL SQ SCH (21:00)
--- NOTE | 2019-02-22 22:43 | Hospitalist Progress Note ---
Date of Service February 22, 2019 Assessment & Plan (1) Diastolic CHF, acute on chronic: - Admit to tele - trop x3 is negative. - EKG reviewed and is bradycardic, no ST wave changes or signs of ischemia. - Echo: last showed grade 2 diastolic dysfunction in Dec 2017 -Currentlly shows normal EF, mild LVH, no regional wall motion abnormalities. - PT/OT consulted - Pt follows with [facility] as an outpatient, was recently seen for routine followup within the last month. - IV Bumex 2 mg BID. assess I/Os, daily weight, HH/low sodium diet/DM diet, fluid restriction - Patient has lost about 5 liters of fluid - Dry weight 217, came in with 240 lbs. Not sure if patient will be able to return to 217. - Low sodium diet will need to be discussed - industrial real estate agent consult ordered - pt eats processed meats (hot dogs), fried chicken, chicken noodle soup, etc at baseline. - Exercise regimen should be encouraged along with weight loss - Supported pt on not smoking for 4 years. - A1C is 11.9 (2) Dyspnea: - Secondary to acute on chronic diastolic heart failure exacerbation - Check d-dimer, coags and dopplers of BLE now to lower suspicion for PE. 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 Otherwise works a standing job at [employer]. - CTA was considered but not obtained due to elevated Cr. level. -ON 02/22, this diagnosis seems unlikely. (3) Hypertension: - Bp has been well controlled - Hold lisinopril 20 mg daily with elevated Cr. Resume once able or if BP trends upward - Cont metoprolol succinate 100 mg daily (4) Diabetes: - Glucose elevated at 400 upon admission - Will continue on Lantus 120 U QPM and 35 U TID with and ISS with accuchecks achs - Glycemic pharmacy consult - Last A1C = 9.7 but this was from years ago in our system. Pt reports his last A1C was around 13 and was drawn between 1-2 months ago. - [facility] [place], clinical pharmacist is Radha Castro and can be reached at [phone]. (5) Hyponatremia: - Na = 129, follow with PRP; 132 - Additional bumex being given now so will watch closely. Hold off on fluids due to diastolic HF and volume overload (6) Hyperkalemia: - K = 5.9, Potassium improved today. - Pt is taking supplementation - will cut this in half now to help reduce level but pt will be receiving extra bumex. (7) HLD (hyperlipidemia): - Cont statin therapy (8) WHIT (obstructive sleep apnea): - continue Cpap HS (9) Obesity (BMI 30-39.9): - BMI =38.8, diet and exercise will need to be encouraged prior to discharge (10) COSMO (acute kidney injury): - Cr. elevated at 2.59, 0n 11: 1.9 On 4:12: 1.8 pt baseline seems to be around 1.1 - Hold nephrotoxins and renally dose medications - Hold lisinopril since BP is acceptable - Will continue to diuresis with Bumex at this time as appears edematous in BLE - follow prp with am labs - CTA was considered however not done due to elevated Cr. (11) DVT prophylaxis: - heparin subq Spent 35 minutes in mangement of patient. This included discussion of with patient and also discussion with consultants. Subjective , .. This is a pleasant 53-year-old male who is in the hospital for acute on chronic diastolic heart failure. Patient reports feeling significantly better today, he reports been able to ambulate around the halls without feeling short of breath. Patient understands though that he needs to return to his dry weight before being discharged. Patient reports having discussed the case with his kiln car repairer and is willing to stay in the hospital until his dry weight is reached. Patient denies any SOB at rest, nausea, vomiting. Review of Systems All systems reviewed & are unremarkable except as noted in HPI & below Physical Exam Vital Signs (Past 24 Hours): Last Vital Signs Temp 36.6 C 02/22/19 19:16 Pulse 63 02/22/19 19:16 Resp 18 02/22/19 19:16 BP 106/66 02/22/19 19:16 Pulse Ox 94 02/22/19 19:16 Physical Exam: Constitutional: WD/WN, vitals as above Eyes: normal visual thomas by confrontation and + anicteric sclerae Neck: normal visual inspection and trachea midline Respiratory: normal respiratory effort, lungs show bibasilar rales (decreased) Cardiovascular: Rate/Rhythm: regular rate and regular rhythm Gastrointestinal (Abdomen): Inspection/Auscultation: + abdomen distended Percussion/Palpation: abdomen soft; abdomen nontender Musculoskeletal: Head/Neck/Chest: normocephalic and head atraumatic 2+ pitting LE edema (decreased), + pedal pulses Skin: no rashes, warm and dry Neurologic: awake; not confused Speech / Cognition: normal speech Psychiatric: A+Ox3, euthymic affect
[2019-02-23] MEDS: HEPARIN SOD 5,000 UNIT/0.5 ML VIAL SQ SCH ×3 (06:35→20:56)
[2019-02-23] MEDS: BUMETANIDE 2 MG in SYRINGE 0 ML IV SCH ×2 (07:39→17:09)
[2019-02-23] MEDS: POTASSIUM CHLORIDE 10 MEQ TABCR PO SCH ×2 (07:39→17:09)
[2019-02-23] MEDS: PANTOprazole 40 MG TAB PO SCH (07:40)
[2019-02-23] MEDS: OMEGA-3 (PURIFIED FISH OIL) 1 GM CAP PO SCH (07:40)
[2019-02-23] MEDS: MAGNESIUM OXIDE 400 MG TAB PO SCH (07:40)
[2019-02-23] MEDS: dilTIAZem ER 180 MG CAPCR PO SCH (07:40)
[2019-02-23] MEDS: ATORVASTATIN 40 MG TAB PO SCH (07:40)
[2019-02-23] MEDS: METOPROLOL SUCC 50MG EXT REL TAB PO SCH (07:40)
[2019-02-23] MEDS: ASPIRIN 81 MG ECTAB PO SCH (07:40)
[2019-02-23] MEDS: INSULIN ASPART 100 UNITS/ML 3 ML PEN SC SCH ×4 (07:44→20:54)
[2019-02-23 07:50] LABS: Hematocrit (blood only) 37.7 % (42-52); Hemoglobin 13.2 g/dL (14.0-18.0); Mean Corpuscular Volume 82.1 fL (80-100); Platelet Count 223 K/uL (130-400); RDW Coefficient of Variation 12.7 % (11.5-14.5); RDW Standard Deviation 38.2 fL (36.4-46.3); Red Blood Count 4.59 M/uL (4.7-6.1); White Blood Count 7.99 K/uL (4.8-10.8)
[2019-02-23 08:07] LABS: Albumin Level 3.7 gm/dl (3.4-5.0); BUN Creatinine Ratio 26.9 (10-20); Calcium 9.7 mg/dl (8.5-10.1); Creatinine Clr Calc Pharmacy 46.6 ml/min; Est GFR (African American) 42.7; Est GFR (Non-African American) 36.8; Potassium 4.4 mmol/L (3.5-5.1)
[2019-02-23 08:10] LABS: Albumin Globulin Ratio 0.9 (0.9-2); Bilirubin,Total 0.7 mg/dl (0.2-1); Total Protein 7.7 gm/dl (6.4-8.2)
[2019-02-23] MEDS ORDERED: INSULIN GLARGINE SOLOSTAR 100 UNITS/ML 3 ML PEN SC ONE (08:30)
[2019-02-23] MEDS ORDERED: INSULIN GLARGINE 100 UNIT/ML VIAL SC STA (10:01)
[2019-02-23] MEDS: ACETAMINOPHEN 325 MG TAB PO PRN ×2 (10:16→23:00)
--- NOTE | 2019-02-23 10:52 | Hospitalist Progress Note ---
Date of Service February 23, 2019 Assessment & Plan (1) Diastolic CHF, acute on chronic: - Admit to tele - trop x3 is negative. - EKG reviewed and is bradycardic, no ST wave changes or signs of ischemia. - Echo: last showed grade 2 diastolic dysfunction in Dec 2017 -Currentlly shows normal EF, mild LVH, no regional wall motion abnormalities. - PT/OT consulted - Pt follows with [facility] as an outpatient, was recently seen for routine followup within the last month. - IV Bumex 2 mg BID. Creatinine bumped up to 2; will hold evening dose for tonight; assess I/Os, daily weight, HH/low sodium diet/DM diet, fluid restriction - Patient has lost about 5.8 liters of fluid - Dry weight 217, came in with 240 lbs. I weighted patient at 10:35 with nurse: weight is down to 227; Not sure if patient will be able to return to 217. - Low sodium diet will need to be discussed - director medical surgical consult ordered - pt eats processed meats (hot dogs), fried chicken, chicken noodle soup, etc at baseline. - Exercise regimen should be encouraged along with weight loss - Supported pt on not smoking for 4 years. - A1C is 11.9 (2) Dyspnea: - Secondary to acute on chronic diastolic heart failure exacerbation - Check d-dimer, coags and dopplers of BLE now to lower suspicion for PE. 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 Otherwise works a standing job at [employer]. - CTA was considered but not obtained due to elevated Cr. level. -ON 02/22, this diagnosis seems unlikely. (3) Hypertension: - Bp has been well controlled - Hold lisinopril 20 mg daily with elevated Cr. Resume once able or if BP trends upward - Cont metoprolol succinate 100 mg daily (4) Diabetes: - Glucose elevated at 400 upon admission - Will continue on Lantus 120 U QPM and 35 U TID with and ISS with accuchecks achs - Glycemic pharmacy consult - Last A1C = 9.7 but this was from years ago in our system. Pt reports his last A1C was around 13 and was drawn between 1-2 months ago. - [facility] [place], clinical pharmacist is Radha Castro and can be reached at [phone]. (5) Hyponatremia: - Na = 129, follow with PRP; 132 - Additional bumex being given now so will watch closely. Hold off on fluids due to diastolic HF and volume overload (6) Hyperkalemia: - K = 5.9, Potassium improved today. - Pt is taking supplementation - will cut this in half now to help reduce level but pt will be receiving extra bumex. (7) HLD (hyperlipidemia): - Cont statin therapy (8) WHIT (obstructive sleep apnea): - continue Cpap HS (9) Obesity (BMI 30-39.9): - BMI =38.8, diet and exercise will need to be encouraged prior to discharge (10) COSMO (acute kidney injury): - Cr. elevated at 2.59, 0n 02/21: 1.9 On 4:12: 1.8 413: 2 pt baseline seems to be around 1.1 - Hold nephrotoxins and renally dose medications - Hold lisinopril since BP is acceptable - Will continue to diuresis with Bumex at this time as appears edematous in BLE - follow prp with am labs - CTA was considered however not done due to elevated Cr. (11) DVT prophylaxis: - heparin subq Spent 25 minutes in mangement of patient. This included discussion of with patient. Subjective 53-year-old male is here for congestive heart failure. Patient reports feeling significantly better today, he states that his swelling has decreased. Patient denies any shortness of breath nausea vomiting. Patient reports that he he was not weighed. Review of Systems All systems reviewed & are unremarkable except as noted in HPI & below Physical Exam Vital Signs (Past 24 Hours): Last Vital Signs Temp 36.7 C 02/23/19 07:24 Pulse 61 02/23/19 08:00 Resp 17 02/23/19 07:24 BP 140/75 02/23/19 07:24 Pulse Ox 98 02/23/19 07:24 Physical Exam: Constitutional: WD/WN, vitals as above Eyes: normal visual thomas by confrontation and + anicteric sclerae Neck: normal visual inspection and trachea midline Respiratory: normal respiratory effort, lungs are clear (decreased) Cardiovascular: Rate/Rhythm: regular rate and regular rhythm Gastrointestinal (Abdomen): Inspection/Auscultation: + abdomen distended Percussion/Palpation: abdomen soft; abdomen nontender Musculoskeletal: Head/Neck/Chest: normocephalic and head atraumatic 2+ pitting LE edema (decreased), + pedal pulses Skin: no rashes, warm and dry Neurologic: awake; not confused Speech / Cognition: normal speech Psychiatric: A+Ox3, euthymic affect
--- NOTE | 2019-02-23 12:37 | Pharmacy Report ---
Pharmacy Glycemic Short Note 2 - Date of Service February 23, 2019 - Glycemic Short BSG Results (Last 24 hours): 02/22/19 02/22/19 02/23/19 16:21 20:09 07:22 Glucose POC Glucose 186 H 245 H 207 H 02/23/19 02/23/19 07:28 11:23 Glucose 205 H POC Glucose 234 H OUTPATIENT ANTIDIABETIC REGIMEN: * Lantus 120 units QPM * Novolog 35 units TIDM ASSESSMENT: * Pt has been mostly hyperglycemic this admission. Likely due to basal deficiency (I surmise he is ~40 units deficient) and high carb meals. In an effort to help make up for this basal deficiency I ordered 20 units of lantus this AM. I also tightened up his correctional insulin to help yield doses closer to his 35units at each meal. PLAN FOR INPATIENT GLYCEMIC CONTROL: * Hold outpatient oral diabetes medications * Basal insulin - increasing * Lantus per scale * 120 units if BSG < 120 * 130 units if BSG 120 or greater * Bolus insulin - tightening * NovoLog per scale ACHS or Q6hrs while NPO * Goal Range: Low 120 mg/dL - High 150 mg/dL * Correction Factor: 10 mg/dL/unit * Nutritional / Prandial insulin per carb ratio of 1 unit per 2 grams CHO consumed
[2019-02-23] MEDS: GABAPENTIN 600 MG TAB PO SCH (20:52)
[2019-02-23] MEDS ORDERED: INSULIN GLARGINE 100 UNIT/ML VIAL SQ SCH (21:00)
[2019-02-24] MEDS: HEPARIN SOD 5,000 UNIT/0.5 ML VIAL SQ SCH (06:19)
[2019-02-24] MEDS: BUMETANIDE 2 MG in SYRINGE 0 ML IV SCH (08:33)
[2019-02-24] MEDS: METOPROLOL SUCC 50MG EXT REL TAB PO SCH (08:35)
[2019-02-24] MEDS: POTASSIUM CHLORIDE 10 MEQ TABCR PO SCH (08:35)
[2019-02-24] MEDS: ATORVASTATIN 40 MG TAB PO SCH (08:35)
[2019-02-24] MEDS: OMEGA-3 (PURIFIED FISH OIL) 1 GM CAP PO SCH (08:35)
[2019-02-24] MEDS: ASPIRIN 81 MG ECTAB PO SCH (08:35)
[2019-02-24] MEDS: PANTOprazole 40 MG TAB PO SCH (08:35)
[2019-02-24] MEDS: MAGNESIUM OXIDE 400 MG TAB PO SCH (08:35)
[2019-02-24] MEDS: GABAPENTIN 600 MG TAB PO SCH (08:35)
[2019-02-24] MEDS: dilTIAZem ER 180 MG CAPCR PO SCH (08:35)
[2019-02-24] MEDS: INSULIN ASPART 100 UNITS/ML 3 ML PEN SC SCH ×2 (08:38→12:50)
[2019-02-24 09:12] LABS: BUN Creatinine Ratio 30.3 (10-20); Calcium 9.4 mg/dl (8.5-10.1); Creatinine Clr Calc Pharmacy 42.7 ml/min; Est GFR (African American) 39.4
[2019-02-24] MEDS: metOLazone 5 MG TABLET PO SCH (09:13)
--- NOTE | 2019-02-24 11:39 | Pharmacy Report ---
Pharmacy Glycemic Short Note 2 - Date of Service February 24, 2019 - Glycemic Short BSG Results (Last 24 hours): 02/23/19 02/23/19 02/23/19 11:23 16:09 20:03 Glucose POC Glucose 234 H 206 H 227 H 02/24/19 02/24/19 07:38 08:39 Glucose 260 H POC Glucose 175 H OUTPATIENT ANTIDIABETIC REGIMEN: * Lantus 120 units QPM * Novolog 35 units TIDM * A1c =11.9% on 02/21/19 ASSESSMENT: * Pt has been receiving ~ 262 units/day with sub-optimal control. Outpatient Rx is 225 units/day but A1c is high * Pt with CHF exacerbation and volume overload --> this can lead to erratic insulin absorption d/t significant edema. IV insulin infusions are typically preferred but patient with such significant insulin needs this may be problematic giving IV * Will continue to titrate SQ insulin as BSGs not severe hyperglycemia. * AM fasting BSG elevated at 175/260 mg/dl --> will increase basal insulin dosing * Post-prandial BSGs elevated but this is most likely d/t basal deficiency. Will tighten CF only PLAN FOR INPATIENT GLYCEMIC CONTROL: * Hold outpatient oral diabetes medications * Basal insulin - increasing * Lantus per scale * 150 units if BSG < 120 * 160 units if BSG 120 or greater * Bolus insulin - tightening CF * NovoLog per scale ACHS or Q6hrs while NPO * Goal Range: Low 120 mg/dL - High 150 mg/dL * Correction Factor: 5 mg/dL/unit * Nutritional / Prandial insulin per carb ratio of 1 unit per 2 grams CHO consumed
--- NOTE | 2019-02-24 15:24 | Discharge Summary ---
Date of Service February 24, 2019 Admission HPI Per Admitting Provider This is 53 yo M with PMHx of diastolic CHF, HTN, HLD, DM II with significant insulin resistance, obesity with BMI of 38.8, GERD, and WHIT on cpap HS, who presents with worsening shortness of breath while at rest. 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 He stopped at a [employer] due to worsening leg cramping, which commonly occurs for him since he's been taking magnesium and when his potassium is low, and drank a gatorade. He took his morning medications while at home prior to coming to the ER. Of note, his glucose was around 300 after drinking the gatorade. Pt notes his weight currently is around 240, where his dry weight is ~217 lbs. He has been taking his prescribed bumex 4 mg daily and metolazone 5 mg daily as directed, despite not feeling like swelling in legs has improved. He denies any chest pain, palpitations, flutter, lightheadedness, or dizziness. 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 Then as another job he works behind the [email or web address] at [employer]. He denies routinely exercising. Pt quite smoking about 4 yrs ago, previously had smoked 2 ppd x 30 years. Admission Exam Per Admitting Provider Physical Exam: Exam as done by Modesta Duval, DO: Constitutional: WD/WN, vitals as above Eyes: normal visual thomas by confrontation and + anicteric sclerae Neck: normal visual inspection and trachea midline Respiratory: normal respiratory effort, lungs clear to auscultation Cardiovascular: Rate/Rhythm: regular rate and regular rhythm Gastrointestinal (Abdomen): Inspection/Auscultation: + abdomen distended Percussion/Palpation: abdomen soft; abdomen nontender Musculoskeletal: Head/Neck/Chest: normocephalic and head atraumatic 2+ parminder ing LE edema, + pedal pulses Skin: no rashes, warm and dry Neurologic: awake; not confused Speech / Cognition: normal speech Psychiatric: A+Ox3, euthymic affect Principal Diagnosis Acute on chronic diastolic heart failure Discharge Exam Constitutional WD/WN, vitals as above + obese Eyes PERRL, conjunctivae normal, anicteric sclerae ENMT external ear and nose normal, oropharynx normal Neck trachea midline, no thyromegaly Respiratory normal respiratory effort, lungs clear to auscultation Cardiovascular RRR, no murmur, no edema Gastrointestinal (Abdomen) normal bowel sounds, soft, nontender, no hepatosplenomegaly Musculoskeletal no cyanosis or clubbing, extremities motor strength 5/5 Skin no rashes, warm and dry Neurologic patellar DTR's 2+ bilat, sensation intact and PERRL, EOMI, accommodation nl, no face palsy, no dysarthria Psychiatric A+Ox3, euthymic affect Lymphatic no cervical or axillary lymphadenopathy Discharge Data Allergies Allergy/AdvReac Type Severity Reaction Status Date / Time amitriptyline AdvReac Unknown Verified 02/20/19 13:44 Consultations 02/20/19 14:04 ED Decision to Admit Stat 02/20/19 18:03 Consult Cardiology Routine Consult Case Management - Discharge Planning Routine Ordered Studies 02/20/19 18:03 US venous doppler LE BI Stat Hospital Course (1) Diastolic CHF, acute on chronic: likely due to non-compliance with salt and fluid restriction long discussion regarding how he takes his medications, says he take the Bumex and Metalozone at night encouraged him to split up the Bumex 2mg AM and PM and to take the Metalozone 30 minutes prior to taking Bumex in the hospital he diuresed over 6 liters and weight down 13 lbs his Cr is holding, at his baseline CHF instructions provided stressed importance of follow up with heart failure clinic knows to follow 2 liter fluid restriction and 2gm salt restriction has a scale at home, knows to record his dry weight when he goes home and to call cardiology if weight up by 2-3 lbs (2) Dyspnea: - Secondary to acute on chronic diastolic heart failure exacerbation no dyspnea at time of discharge, resolved with diuresis (3) Hypertension: - Bp has been well controlled - continue Lisinopril 20mg - Cont metoprolol succinate 100 mg daily continue Bumex (4) Diabetes: - Glucose elevated at 400 upon admission - Will continue on Lantus 120 U QPM and 35 U TID with and ISS with accuchecks achs - Glycemic pharmacy consult - Last A1C = 9.7 but this was from years ago in our system. Pt reports his last A1C was around 13 and was drawn between 1-2 months ago. - [facility] [place], clinical pharmacist is Radha Castro and can be reached at [phone]. [facility] (5) Hyponatremia: resolved, likely due to hypervolemia (6) Hyperkalemia: K is stable in the 4-5 range for several days of note, his KCl supplement was reduced to 20mEq total daily (7) HLD (hyperlipidemia): - Cont statin therapy (8) WHIT (obstructive sleep apnea): - continue Cpap HS (9) Obesity (BMI 30-39.9): - BMI =38.8, diet and exercise will need to be encouraged prior to discharge (10) COSMO (acute kidney injury): - Cr. elevated at 2.59, 0n 4/11: 1.9 On 4:12: 1.8 4/13: 2 pt baseline seems to be around 1.8-2.0 making adequate urine with Bumex COSMO resolved (11) DVT prophylaxis: - heparin subq Total Time Total Time Spent Total Time Spent (In Minutes): 40 minutes Total Time Includes: Examination of the Patient, Discharge Planning and Medication Reconciliation Discharge Plan Discharge Items Patient Disposition: Home - Self-Care Reason For Visit: SHORTNESS OF BREATH,HYPONATREMIA Discharge Diagnosis: Acute on chronic diastolic heart failure Condition: Good Discharge Goals: Improve disease control and Improve function Activity: Resume your previous activity Driving/Machine Use: No limitations Non-emergency contact: Primary Care Provider and [facility] Consultant Call non-emergency contact if: you have any medication questions and your symptoms worsen Follow-up/Referrals: Radha Artis PA-C [Physician Client Insights Consultant] - 03/01/19 12:00 pm (Please bring a copy of your current medications and your home weight sheet. You will need lab work done 1-2 days prior to your appointment. ) Marbella Gomez PA-C [Primary Care Provider] - Diet: Carb Consistent or DM2 and Heart Healthy Fluids: 2000ml (8 cups) Addtl Provider Instructions: Medications: - BUMEX: recommend that you take twice a day instead of once a day in the evening, should take once in the morning and once in the evening - POTASSIUM: dose decreased to 10mEq twice a day, however, you can take 20mEq once a day if this is easier - GABAPENTIN: 600mg twice a day, listed as new because it was not on original list Acute on chronic diastolic heart failure weight is down 6kg which is 13.2 lbs, you are negative at least 6000mL since admission as we discussed, you need to follow a low salt diet, less than 2gm a day, you need to look at labels to see how much sodium food contains follow fluid restriction of no more than 40 oz a day which is 2000mL take medications as prescribed, EVERY day step on scale once a day, same time, typically suggest in the morning after you urinate and prior to eating breakfast recommend that you step on scale as soon as you get home today, write down weight, this is your "dry weight" use this as baseline, if weight is up by 2-3 lbs from this weight then call cardiology office for further instruction metalozone: this works best if you take it 30 minutes prior to Bumex, this is how you get it here in the hospital Call your Primary Care doctor if any of the following symptoms or problems start or get worse: * Shortness of breath or difficulty breathing * Wake up at night short of breath * Chest pain * Cough * Swelling of your hands, feet, or legs * More fatigued or tired with your normal activity * Palpitations - sudden fast heart beats WEIGHT * Weigh yourself every morning after using the bathroom. * Use the same scale. * Wear the same amount of clothing. * Write your weight down on a chart. * Call your Primary Care doctor if you gain more than 2-3 pounds in 1-2 days. MEDICATIONS * Use this discharge instruction sheet for medication instructions. * Take your medications at the time your doctor ordered. * Do not skip a dose of your medicines. * If you miss a dose of medicine, take it as soon as possible, but DO NOT DOUBLE A DOSE. * Read your medicine information when you get home. * Know all of the side effects of your medicine. If in doubt, ask your pharmacist * Call your Primary Care doctor's office if you have any side effects. * Be sure all of your doctors know what medicine and herbs you take (including cold, flu, and herbal medicine). Take the following with you to your follow-up doctor appointments: * Weight Chart * Medication List * List of questions Do not drink excessive alcohol, beer or wine. Prescriptions: New potassium chloride [Klor-Con M10] 10 mEq Tablet,Er Particles/Crystals 10 meq PO BID17 30 Days Qty: 30 RF: 0 gabapentin 600 mg Tablet 600 mg PO BID 30 Days Qty: 60 RF: 0 bumetanide 2 mg tablet 2 mg PO BID Qty: 60 RF: 2 Continued Lantus U-100 Insulin 100 unit/mL Solution 120 units subcut QPM RF: 0 Novolog U-100 Insulin aspart 100 unit/mL Solution 35 unit SUBCUT TIDM RF: 0 omeprazole 20 mg Capsule,Delayed Release(Dr/Ec) 20 mg PO QAM RF: 0 magnesium oxide 400 mg Capsule 400 mg PO DAILY RF: 0 lisinopril 20 mg Tablet 20 mg PO DAILY RF: 0 aspirin [Aspir-81] 81 mg Tablet,Delayed Release (Dr/Ec) 81 mg PO DAILY RF: 0 atorvastatin 80 mg Tablet 80 mg PO DAILY RF: 0 metoprolol succinate 50 mg Tablet Extended Release 24 Hr 100 mg PO DAILY RF: 0 metolazone 5 mg Tablet 5 mg PO DAILY RF: 0 tramadol 50 mg Tablet 50 mg PO TID PRN (Reason: Pain) RF: 0 omega [id number]-fish oil [Fish Oil] 1,000 mg (120 mg-180 mg) Capsule 1 cap PO DAILY RF: 0 diltiazem HCl 180 mg Capsule,Extended Release 24 Hr 180 mg PO DAILY RF: 0 Discontinued bumetanide 2 mg Tablet 4 mg PO DAILY RF: 0 potassium chloride 20 mEq Tablet Extended Release 20 meq PO BID RF: 0 Stand-Alone Forms: [facility]/Other Patient Handouts: Tips Using Less Salt, Choices Low Salt, Foods Heart Healthy Discharge Orders: Discharge Order (Routine); Ordered 02/24/19 Ordered By: Luis Eduardo Watson Admission Data Admit Date/Time: 02/20/19 15:17 Attending Provider: Luis Eduardo Watson Admit Provider: Modesta Duval Primary Care Provider: Marbella Gomez Other Providers: Modesta Duval ; Andre Almanzar Service: Telemetry Medical Other Interventions: Discharge Summary Assessment (RN) Last Done: 02/24/19 13:07 DC Date/Time DO NOT enter until pt leaves facility: 02/24/19 13:37
== END 2019-02-24 13:37 | disposition home or self-care (01) | DRG 292 ==
LOC: ED 12:17 → SUATTDRO 15:17 → 2E 15:17 → 2W 02-23 23:19
DX: E87.5 Hyperkalemia; Z79.899 Other long term (current) drug therapy; Z79.4 Long term (current) use of insulin; N17.9 Acute kidney failure, unspecified; E66.9 Obesity, unspecified; E78.5 Hyperlipidemia, unspecified; Z68.41 Body mass index [BMI] 40.0-44.9, adult; E11.9 Type 2 diabetes mellitus without complications; E87.1 Hypo-osmolality and hyponatremia; I50.33 Acute on chronic diastolic (congestive) heart failure; I11.0 Hypertensive heart disease with heart failure; Z79.82 Long term (current) use of aspirin; G47.33 Obstructive sleep apnea (adult) (pediatric)

== ENCOUNTER 2019-08-11 13:06 | Inpatient (IN) ==
[2019-08-11] MEDS ORDERED: ONDANSETRON 8MG OD TAB PO ONE (13:37)
[2019-08-11] MEDS ORDERED: MoRPHine SULFATE 2 MG/ML CARP IV STA (13:37)
[2019-08-11 13:39] LABS: Basophils # (auto) 0.07 K/uL (0-0.2); Basophils % (auto) 0.5 %; Eosinophils # (auto) 0.05 K/uL (0-0.5); Eosinophils % (auto) 0.4 %; Hematocrit (blood only) 34.2 % (42-52); Immature Granulocytes # (auto) 0.05 K/uL (0.00-0.02); Immature Granulocytes % (auto) 0.4 %; Lymphocytes # (auto) 2.79 K/uL (1.2-3.4); Lymphocytes % (auto) 21.3 %; Mean Corpuscular Hemoglobin 27.9 pg (25-34); Mean Corpuscular Hgb Conc 32.2 g/dL (32-36); Mean Corpuscular Volume 86.8 fL (80-100); Mean Platelet Volume 11.6 fL (7.4-10.4); Monocytes # (auto) 0.72 K/uL (0.11-0.59); Monocytes % (auto) 5.5 %; Neutrophils % (auto) 71.9 %; Platelet Count 217 K/uL (130-400); RDW Coefficient of Variation 12.7 % (11.5-14.5); RDW Standard Deviation 40.5 fL (36.4-46.3); Red Blood Count 3.94 M/uL (4.7-6.1); White Blood Count 13.08 K/uL (4.8-10.8)
[2019-08-11] MEDS ORDERED: ONDANSETRON INJ 2 MG/ML 2 ML VIAL IV STA (13:39)
[2019-08-11] MEDS ORDERED: ONDANSETRON INJ 2 MG/ML 2 ML VIAL ONE (13:40)
[2019-08-11] MEDS ORDERED: ATROPINE SULFATE 0.1 MG/ML 10ML SYR IV STA (13:50)
[2019-08-11] MEDS ORDERED: SODIUM CHLORIDE 0.9% 1000ML 250 ML IV ONE ×2 (13:50→14:43)
[2019-08-11] MEDS ORDERED: ATROPINE SO4 1 MG/ML 1ML VIAL ONE (13:51)
[2019-08-11] MEDS ORDERED: GLUCAGON 1 MG in SYRINGE 0 ML IV STA (13:51)
[2019-08-11 13:54] LABS: Partial Thromboplastin Ratio 0.9; Partial Thromboplastin Time 24.1 Seconds (21.0-31.0); Prothrombin Time 10.3 Seconds (9.0-12.0)
[2019-08-11] MEDS ORDERED: GLUCAGON FOR INJ 1 MG VIAL ONE (13:55)
[2019-08-11 13:59] LABS: Alanine Aminotransferase 127 U/L (12-78); Albumin Level 3.3 gm/dl (3.4-5.0); Aspartate Aminotransferase 122 U/L (15-37); BUN Creatinine Ratio 14.4 (10-20); Blood Urea Nitrogen 46 mg/dl (7-18); Carbon Dioxide 24 mmol/L (21-32); Chloride 94 mmol/L (98-107); Creatinine Clr Calc Pharmacy 31.2 ml/min; Est GFR (African American) 24.3; Glucose 452 mg/dl (70-99); Lipase 48 U/L (73-393); Potassium 7.3 mmol/L (3.5-5.1); Sodium 131 mmol/L (136-145)
[2019-08-11] MEDS ORDERED: NovoLIN-R INSULIN PER UNIT CHARGE IV STA (13:59)
[2019-08-11] MEDS ORDERED: CALCIUM GLUCONATE 10% 10 ML VIAL IV STA (14:01)
[2019-08-11] MEDS ORDERED: CALCIUM GLUCONATE 10% 10 ML VIAL IV ONE (14:01)
[2019-08-11 14:17] LABS: Albumin Globulin Ratio 0.9 (0.9-2); Alkaline Phosphatase 113 U/L (45-117); Beta-Hydroxybutyrate 2.47 mg/dl (0.2-2.81); Bilirubin,Total 0.6 mg/dl (0.2-1); Globulin 3.8 gm/dl (2.5-4.0); NT Pro B Type Natriuretic Pept 307 pg/ml (0-900); Total Protein 7.1 gm/dl (6.4-8.2); Troponin I < 0.015 ng/ml (0-0.045)
--- NOTE | 2019-08-11 14:27 | Emergency Department Note ---
ED Visit Note This patient was seen in concert with Dr. Presley. We discussed and agreed upon the history, physical, assessment and plan for this patient. . Resident Activity Tracking Resident Involvement: Resident Care Provided Care Provided: [facility]
[2019-08-11] MEDS ORDERED: DKA GOAL RANGE 150-250 mg/dl ONE (14:30)
[2019-08-11] MEDS ORDERED: INSULIN REGULAR 250 UNITS in SODIUM CHLORIDE 0.9% 247.5 ML IV SCH ×2 (14:30→14:45)
[2019-08-11] MEDS ORDERED: SODIUM POLYSTYRENE SULFONATE 30 GM/120 ML UDP PO STA (14:36)
[2019-08-11] MEDS ORDERED: FUROSEMIDE 160 MG in SYRINGE 0 ML IV ONE (14:37)
--- NOTE | 2019-08-11 14:42 | XRay Report ---
SINGLE VIEW CHEST CLINICAL HISTORY: Atypical chest pain. FINDINGS: An AP, portable, upright chest radiograph is compared to study dated 02/20/2019 and correlat ed with chest CT dated 01/17/2018. The examination is degraded by portable technique and patient rotati on. The heart is mildly enlarged. The pulmonary vasculature is noncongested. There is mild bibasilar atelectasis. The lungs and pleural spaces are otherwise clear. No pneumothorax is seen. The bony thor ax is grossly intact. IMPRESSION: Mild cardiac enlargement with no acute cardiopulmonary abnormality. Electronically signed by: Fernando Carver M.D. 08/11/2019 2:41 PM
[2019-08-11] MEDS ORDERED: INSULIN REGULAR IV ONE (14:45)
[2019-08-11] MEDS ORDERED: SODIUM BICARB 8.4% INJ 50 MEQ/50 ML SYR IV STA (15:01)
[2019-08-11] MEDS ORDERED: ALBUTEROL 0.083% NEBU SOLN 3 ML VIAL NEB STA (15:01)
[2019-08-11 15:12] LABS: iSTAT Creatinine 3.2 mg/dl (0.6-1.3); iSTAT Hemoglobin 10.2 g/dl (14.0-18.0); iSTAT Ionized Calcium 1.09 mmol/l (1.12-1.32); iSTAT Potassium 7.5 mEq/L (3.3-5.0)
[2019-08-11] MEDS ORDERED: CALCIUM GLUCONATE 10% 1,000 MG in SODIUM CHLORIDE 0.9% 50 ML IV STA (15:13)
[2019-08-11] MEDS ORDERED: SODIUM CHLORIDE 0.9% 1000ML 1,000 ML IV SCH (15:15)
[2019-08-11] MEDS: SODIUM CHLORIDE 0.9% 500 ML IV SCH ×2 (15:25→17:50)
[2019-08-11] MEDS ORDERED: ICU PROTOCOL FOR HYPERGLYCEMIA PRN (15:30)
--- NOTE | 2019-08-11 15:44 | Emergency Department Note ---
Entered by Zoey Vallejo acting as a scribe for Irma Presley MD History of Present Illness General Chief complaint: Chest Pain Stated complaint: chest tightness/sob Time Seen by Provider: 08/11/19 13:16 Source: patient and family () History of Present Illness Onset (ago): hour(s) (this morning) Location: chest Pain Consistency: + other (persistent) Quality: + other (difficulty breathing, chest tightness) Relieved By: not by medication (aspirin) Exacerbated By: + movement (exertion) Associated symptoms: + denies other symptoms (black or bloody stools) and + other (nausea, vomiting (x3), diarrhea, dizziness with standing, recent weight gain) The patient is a 54 year old male that is presenting to the Emergency Room with complaints of persistent difficulty breathing that started this morning around 0830. The patient reports that he has some associated chest tightness but denies any true chest pain. He notes that his symptoms worsen with exertion. He states that he has some nausea and has vomited 3 times since 1130 with the last episode occurring 10 minutes ago. He reports that he is dizzy with standing. He notes that he had diarrhea last night but denies any blood in his stool. The patient denies any black or tarry stools. He notes that he has gained 20-25 lbs in the past two weeks. He states that he has been taking metoprolol since 12/2018 when he was diagnosed with diastolic CHF. He reports that he has been taking diltiazem for the past 6 months. He notes that he was started on diltiazem by Wagner Contreras PA-C cardiology, to bring his heart rate down to 60 bpm. The patient denies using O2 at home. He notes that he uses a CPAP machine at night. He states that he takes a baby aspirin at night. He reports that he had 4 baby asp irin in the ambulance on route to the ED. He notes that he took gabapentin this morning but states that he takes all his other medications at night. His notes that his blood glucose level has been elevated intermittently. His reports that the patient eats ramen noodles regularly. Home Medications Home Medications Medication Instructions Recorded Confirmed Type aspirin [Aspir-81] 81 mg PO QPM 08/02/18 08/11/19 History atorvastatin 80 mg PO QPM 08/02/18 08/11/19 History magnesium oxide 400 mg PO QPM 08/02/18 08/11/19 History metoprolol succinate 100 mg PO QPM 08/02/18 08/11/19 History tramadol 50 mg PO TID PRN 08/02/18 08/11/19 History omega 5-[id number]-ewx-fish oil [Fish Oil] 1 cap PO QPM 02/20/19 08/11/19 History insulin glargine (U- 100) 100 60 units SUBCUT QPM ml 06/27/19 08/11/19 History unit/mL subcutaneous solution insulin regular hum U-500 conc See Rx Instructions .ROUTE 08/14/19 Rx .COMPLEX #3 ml omeprazole 20 mg PO QPM #0 cap 08/14/19 08/11/19 Rx torsemide 20 mg PO DAILY PRN #0 tab 08/14/19 08/11/19 Rx Allergies Allergy/AdvReac Type Severity Reaction Status Date / Time amitriptyline AdvReac Unknown Verified 07/22/19 10:21 Past Med/Surg History Medical History Diastolic CHF (Chronic) Proteinuria Chronic kidney disease (Chronic) Obesity (BMI 30-39.9) HLD (hyperlipidemia) Hyperkalemia Diabetes (Chronic) Hypertension (Chronic) Acute CHF Hyperglycemia Rib pain on left side (Acute) COSMO (acute kidney injury) Diastolic CHF, acute on chronic Dyspnea Hyponatremia Surgical History No pertinent past surgical history Cataract (Resolved) Family History Other Coronary heart disease Diabetes Hypertension Social History Preferred Language: German Communication Ability: Effective Collections Specialist Required: No Beliefs That Will Affect Care: None marital status: Current Living Situation: Spouse Current Living Situation Comment: Four children, grown & in good health current occupational status: employed 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 Former Feels Safe at Home: Yes Smoking Status: Former smoker Hx Alcohol Use: No Hx Substance Use: No Review of Systems See HPI for pertinent positives & negatives. and A total of 10 systems reviewed and were otherwise negative Physical Exam Vital Signs Vital Signs - 24 hr 08/11/19 13:05 08/11/19 13:06 08/11/19 13:24 Temperature 36.8 C Temperature Source Oral Sepsis Recent Fever Within 48 Hours No Sepsis New/Unexplained Change in Mental Status No Sepsis Action Taken by Nursing No Action Required Oxygen Flow Rate - Titration Pulse Rate 30 L 36 L Pulse Rate [Left Finger] Pulse Rate from SpO2 Sensor 33 L Pulse Rhythm Regular Respiratory Rate 24 26 H Respiratory Effort / Characteristics Short of Breath SOB on Exertion Blood Pressure 103/40 L Blood Pressure [Right Arm] 103/40 L Blood Pressure Mean 61 Blood Pressure Mean [Right Arm] 61 Blood Pressure Position Lying Blood Pressure Position [Right Arm] Sitting Pulse Oximetry 91 94 93 Oxygen Delivery Method Room Air Room Air Oxygen Flow Rate 08/11/19 13:29 08/11/19 13:31 08/11/19 13:32 Temperature Temperature Source Sepsis Recent Fever Within 48 Hours Sepsis New/Unexplained Change in Mental Status Sepsis Action Taken by Nursing Oxygen Flow Rate - Titration Pulse Rate 45 L Pulse Rate [Left Finger] Pulse Rate from SpO2 Sensor 33 L 33 L Pulse Rhythm Respiratory Rate Respiratory Effort / Characteristics Blood Pressure 93/49 L 101/50 L Blood Pressure [Right Arm] Blood Pressure Mean 63 67 Blood Pressure Mean [Right Arm] Blood Pressure Position Blood Pressure Position [Right Arm] Pulse Oximetry 90 87 L Oxygen Delivery Method Oxygen Flow Rate 08/11/19 13:45 08/11/19 13:49 08/11/19 13:51 Temperature Temperature Source Sepsis Recent Fever Within 48 Hours Sepsis New/Unexplained Change in Mental Status Sepsis Action Taken by Nursing Oxygen Flow Rate - Titration Pulse Rate 30 L 34 L 32 L Pulse Rate [Left Finger] Pulse Rate from SpO2 Sensor 35 L 33 L 32 L Pulse Rhythm Respiratory Rate 18 16 14 Respiratory Effort / Characteristics Blood Pressure 85/39 L 99/42 L Blood Pressure [Right Arm] Blood Pressure Mean 54 61 Blood Pressure Mean [Right Arm] Blood Pressure Position Blood Pressure Position [Right Arm] Pulse Oximetry 96 95 96 Oxygen Delivery Method Oxygen Flow Rate 08/11/19 13:58 08/11/19 14:00 08/11/19 14:14 Temperature Temperature Source Sepsis Recent Fever Within 48 Hours Sepsis New/Unexplained Change in Mental Status Sepsis Action Taken by Nursing Oxygen Flow Rate - Titration 3 Pulse Rate 37 L 33 L 37 L Pulse Rate [Left Finger] Pulse Rate from SpO2 Sensor 31 L 37 L Pulse Rhythm Regular Respiratory Rate 18 17 19 Respiratory Effort / Characteristics Blood Pressure 111/60 Blood Pressure [Right Arm] Blood Pressure Mean 77 Blood Pressure Mean [Right Arm] Blood Pressure Position Blood Pressure Position [Right Arm] Pulse Oximetry 91 89 L 92 Oxygen Delivery Method Room Air Oxygen Flow Rate 08/11/19 14:15 08/11/19 14:16 08/11/19 14:25 Temperature Temperature Source Sepsis Recent Fever Within 48 Hours Sepsis New/Unexplained Change in Mental Status Sepsis Action Taken by Nursing Oxygen Flow Rate - Titration Pulse Rate 38 L 37 L 44 L Pulse Rate [Left Finger] Pulse Rate from SpO2 Sensor 37 L 37 L 39 L Pulse Rhythm Respiratory Rate 16 18 Respiratory Effort / Characteristics Blood Pressure 98/60 L 98/47 L Blood Pressure [Right Arm] Blood Pressure Mean 72 64 Blood Pressure Mean [Right Arm] Blood Pressure Position Blood Pressure Position [Right Arm] Pulse Oximetry 89 L 91 90 Oxygen Delivery Method Oxygen Flow Rate 08/11/19 14:30 08/11/19 14:31 08/11/19 14:45 Temperature Temperature Source Sepsis Recent Fever Within 48 Hours Sepsis New/Unexplained Change in Mental Status Sepsis Action Taken by Nursing Oxygen Flow Rate - Titration Pulse Rate 38 L 38 L 38 L Pulse Rate [Left Finger] Pulse Rate from SpO2 Sensor 37 L 38 L 38 L Pulse Rhythm Respiratory Rate 13 13 14 Respiratory Effort / Characteristics Blood Pressure 93/50 L 98/45 L Blood Pressure [Right Arm] Blood Pressure Mean 64 62 Blood Pressure Mean [Right Arm] Blood Pressure Position Blood Pressure Position [Right Arm] Pulse Oximetry 86 L 88 L 91 Oxygen Delivery Method Oxygen Flow Rate 08/11/19 15:00 08/11/19 15:13 08/11/19 15:15 Temperature Temperature Source Sepsis Recent Fever Within 48 Hours Sepsis New/Unexplained Change in Mental Status Sepsis Action Taken by Nursing Oxygen Flow Rate - Titration Pulse Rate 37 L 37 L Pulse Rate [Left Finger] 37 L Pulse Rate from SpO2 Sensor 37 L 37 L Pulse Rhythm Respiratory Rate 17 12 14 Respiratory Effort / Characteristics Non-Labored Spontaneous Blood Pressure 109/54 L 101/47 L Blood Pressure [Right Arm] Blood Pressure Mean 72 65 Blood Pressure Mean [Right Arm] Blood Pressure Position Blood Pressure Position [Right Arm] Pulse Oximetry 94 97 98 Oxygen Delivery Method Nasal Cannula Nebulizer Oxygen Flow Rate 5 08/11/19 15:30 Temperature Temperature Source Sepsis Recent Fever Within 48 Hours Sepsis New/Unexplained Change in Mental Status Sepsis Action Taken by Nursing Oxygen Flow Rate - Titration Pulse Rate 63 Pulse Rate [Left Finger] Pulse Rate from SpO2 Sensor 63 Pulse Rhythm Respiratory Rate 23 Respiratory Effort / Characteristics Blood Pressure 134/55 L Blood Pressure [Right Arm] Blood Pressure Mean 81 Blood Pressure Mean [Right Arm] Blood Pressure Position Blood Pressure Position [Right Arm] Pulse Oximetry 97 Oxygen Delivery Method Oxygen Flow Rate Vital signs reviewed. General: Criticalyl ill-appearing, pale, slightly diaphoretic. HEENT: No scleral icterus, PERRLA, neck supple. Atraumatic. Cardiovascular: Bradycardic rate and regular rhythm, distant heart sounds Pulmonary: Coarse breath sounds at the bases bilaterally. Abdomen: Soft, nontender, nondistended, positive bowel sounds. Musculoskeletal: Atraumatic, minimal peripheral edema bilaterally. Neurologic: Patient awake alert and oriented x 3 Skin: Warm, dry, no rash Course 1318: The patient was seen and evaluated by the Resident Physician at this time. History and physical were discussed with me. 1345:The patient was evaluated in room B06. A complete history and physical examination was performed. The patient's heart rate was 36bpm and the patient was given Atropine. His heart rate started to improve. 1359: The patient's blood glucose level is 486mg/dL and his potassium level is 7.3. 1420: I discussed the patients case with Dr. Taveras, ICU, who will come to the ED to evaluate the patient. 1428: The [facility] has no beds and agreed that the patient can receive treatment at [facility]. 1429: I discussed the patient's case with Dr. Bliss, [facility] [facility], who will evaluate the patient for further management and care. 1435: 100ccs of urine were noted on a bladder scan. A Shell catheter has been p laced. The patient stated that he last urinated at 0900 this morning. 1436: I discussed the patients case with Dr. Rodriguez, Nephrology, who will evaluate the patient in the hospital. She states that if his potassium level does not decrease, she will place a Shell catheter and take the patient to d ialysis. 1445: Upon evaluation of the case, Dr. Bliss stated that Dr. Taveras is hesitant to take the patient to the ICU if he requires dialysis. Dr. Rodriguez is working to find a dialysis nurse at this time. 1500: Upon reevaluation, the patient is resting comfortably. I discussed laboratory and radiographic results with the patient. He verbalized agreement of the treatment plan. The patient will be evaluated for further management and care. Consultations Consultation #1: I discussed the patients case with Dr. Taveras, ICU, who will come to the ED to evaluate the patient. Time: 14:20 Consultation #2: I discussed the patient's case with Dr. Bliss, [facility] [place], who will evaluate the patient for further management and care. Time: 14:29 Consultation #3: I discussed the patients case with Dr. Rodriguez, Nephrology, who will evaluate the patient in the hospital. She states that if his potassium level does not decrease, she will place a Shell catheter and take the patient to dialysis. Time: 14:36 Administered Medications Discontinued Medications Acetaminophen (Tylenol) 650 mg PO Q4H PRN PRN Reason: Pain or Fever Stop: 09/11/19 12:03 Last Admin: 08/14/19 16:52 Dose: 650 mg Documented by: [id number] Admin: 08/14/19 06:14 Dose: 650 mg Documented by: [id number] Admin: 08/14/19 02:10 Dose: 650 mg Documented by: [id number] Admin: 08/13/19 10:12 Dose: 650 mg Documented by: [id number] Admin: 08/13/19 01:49 Dose: 650 mg Documented by: [id number] Admin: 08/12/19 18:02 Dose: 650 mg Documented by: [id number] Admin: 08/12/19 12:15 Dose: 650 mg Documented by: [id number] Albuterol (Ventolin 0.083% 2.5mg/3ml) 10 mg NEB NOW STA Stop: 08/11/19 15:02 Last Admin: 08/11/19 15:13 Dose: 10 mg Documented by: [id number] Atorvastatin Calcium (Lipitor) 80 mg PO QPM LELIA Stop: 09/10/19 20:59 Last Admin: 08/13/19 20:39 Dose: 80 mg Documented by: [id number] Admin: 08/12/19 21:32 Dose: 80 mg Documented by: [id number] Admin: 08/11/19 22:09 Dose: 80 mg Documented by: [id number] Atropine Sulfate (Atropine Sulfate) 0.5 mg IV NOW STA Stop: 08/11/19 13:51 Last Admin: 08/11/19 13:54 Dose: 0.5 mg Documented by: [id number] Atropine Sulfate (Atropine Sulfate 1mg/Ml) Confirm Administered Dose 1 mg .ROUTE .STK-MED ONE Stop: 08/11/19 13:52 Last Admin: 08/11/19 13:57 Dose: Not Given Documented by: [id number] Calcium Gluconate (Calcium Gluconate 10%) Confirm Administered Dose 1,000 mg IV .[facility] ONE Stop: 08/11/19 14:02 Last Admin: 08/11/19 14:11 Dose: Not Given Documented by: [id number] Calcium Gluconate (Calcium Gluconate 10%) 1,000 mg IV NOW STA Stop: 08/11/19 14:02 Last Admin: 08/11/19 14:10 Dose: 1,000 mg Documented by: [id number] Glucagon (Glucagen) Confirm Administered Dose 1 mg .ROUTE .[facility] ONE Stop: 08/11/19 13:56 Last Admin: 08/11/19 14:12 Dose: Not Given Documented by: [id number] Heparin Sodium (Porcine) (Heparin Sodium (Porcine)) 5,000 units SQ Q8 LELIA Stop: 09/10/19 21:59 Last Admin: 08/14/19 13:51 Dose: 5,000 units Documented by: [id number] Cosigned by: [id number] Admin: 08/14/19 06:05 Dose: 5,000 units Documented by: [id number] Cosigned by: [id number] Admin: 08/13/19 20:41 Dose: 5,000 units Documented by: [id number] Cosigned by: [id number] Admin: 08/13/19 13:47 Dose: 5,000 units Documented by: [id number] Cosigned by: [id number] Admin: 08/13/19 05:49 Dose: 5,000 units Documented by: [id number] Cosigned by: [id number] Admin: 08/12/19 21:32 Dose: 5,000 units Documented by: [id number] Cosigned by: [id number] Admin: 08/12/19 15:03 Dose: 5,000 units Documented by: [id number] Cosigned by: [id number] Admin: 08/12/19 05:39 Dose: 5,000 units Documented by: [id number] Cosigned by: [id number] Admin: 08/11/19 22:09 Dose: 5,000 units Documented by: [id number] Cosigned by: [id number] Sodium Chloride (Nss 1000ml) 250 mls @ 999 mls/hr IV .Q16M ONE Stop: 08/11/19 14:05 Last Infusion: 08/11/19 15:07 Dose: 0 mls/hr Documented by: [id number] Admin: 08/11/19 14:40 Dose: 999 mls/hr Documented by: [id number] Glucagon 1 mg/ Syringe 1 mls @ 1 mls/min IV NOW STA Stop: 08/11/19 13:52 Last Admin: 08/11/19 14:01 Dose: 1 mls/min Documented by: [id number] Sodium Chloride (Nss) 500 mls @ 100 mls/hr IV .Q5H LELIA Stop: 09/10/19 14:14 Last Admin: 08/11/19 17:50 Dose: Not Given Documented by: [id number] Admin: 08/11/19 15:25 Dose: Not Given Documented by: [id number] Insulin Human Regular 250 (units/ Sodium Chloride) 250 mls @ 0 mls/hr IV .Q0M LELIA; Protocol Stop: 08/12/19 11:00 Last Titration: 08/12/19 08:42 Dose: 0 units/hr, 0 mls/hr Documented by: [id number] Cosigned by: [id number] Titration: 08/12/19 07:30 Dose: 2.2 units/hr, 2.2 mls/hr Documented by: [id number] Cosigned by: [id number] Titration: 08/12/19 06:24 Dose: 1.8 units/hr, 1.8 mls/hr Documented by: [id number] Cosigned by: [id number] Titration: 08/12/19 05:22 Dose: 2.2 units/hr, 2.2 mls/hr Documented by: [id number] Cosigned by: [id number] Titration: 08/12/19 05:21 Dose: 3.3 units/hr, 3.3 mls/hr Documented by: [id number] Cosigned by: [id number] Titration: 08/12/19 00:15 Dose: 4.1 units/hr, 4.1 mls/hr Documented by: [id number] Cosigned by: [id number] Titration: 08/11/19 23:14 Dose: 5.1 units/hr, 5.1 mls/hr Documented by: [id number] Cosigned by: [id number] Titration: 08/11/19 21:02 Dose: 0 units/hr, 0 mls/hr Documented by: [id number] Cosigned by: [id number] Titration: 08/11/19 19:44 Dose: 8.5 units/hr, 8.5 mls/hr Documented by: [id number] Cosigned by: [id number] Titration: 08/11/19 17:36 Dose: 10.6 units/hr, 10.6 mls/hr Documented by: [id number] Cosigned by: [id number] Titration: 08/11/19 16:30 Dose: 13.2 units/hr, 13.2 mls/hr Documented by: [id number] Cosigned by: [id number] Admin: 08/11/19 14:57 Dose: 11 units/hr, 11 mls/hr Documented by: [id number] Cosigned by: [id number] Furosemide 160 mg/ Syringe 16 mls @ 4 mls/min IV ONE ONE Stop: 08/11/19 14:39 Last Admin: 08/11/19 15:07 Dose: 4 mls/min Documented by: [id number] Sodium Chloride (Nss 1000ml) 250 mls @ 999 mls/hr IV .Q16M ONE Stop: 08/11/19 14:58 Last Infusion: 08/11/19 15:41 Dose: 0 mls/hr Documented by: [id number] Admin: 08/11/19 15:07 Dose: 999 mls/hr Documented by: [id number] Insulin Human Regular (Novolin R Bolus From Bag) 11 mls @ 11 mls/min IV ONE ONE Stop: 08/11/19 14:46 Last Admin: 08/11/19 15:04 Dose: 11 mls/min Documented by: [id number] Cosigned by: [id number] Sodium Chloride (Nss 1000ml) 1,000 mls @ 150 mls/hr IV .Q6H40M LELIA Stop: 09/10/19 15:14 Last Infusion: 08/11/19 17:57 Dose: 0 mls/hr Documented by: [id number] Admin: 08/11/19 15:25 Dose: 150 mls/hr Documented by: [id number] Calcium Gluconate 1,000 mg/ (Sodium Chloride) 60 mls @ 240 mls/hr IV NOW STA Stop: 08/11/19 15:27 Last Infusion: 08/11/19 15:41 Dose: 0 mls/hr Documented by: [id number] Admin: 08/11/19 15:23 Dose: 240 mls/hr Documented by: [id number] Insulin Aspart (Novolog Flexpen) 0 units SC ACHS LELIA Stop: 09/10/19 16:29 Last Admin: 08/12/19 08:41 Dose: 5 units Documented by: [id number] Cosigned by: [id number] Admin: 08/11/19 22:10 Dose: Not Given Documented by: [id number] Cosigned by: [id number] Admin: 08/11/19 17:35 Dose: Not Given Documented by: [id number] Cosigned by: [id number] Insulin Aspart (Novolog Flexpen) 0 units SC ACHS LELIA Stop: 09/11/19 11:29 Last Admin: 08/14/19 16:54 Dose: 21 units Documented by: [id number] Cosigned by: [id number] Admin: 08/14/19 12:14 Dose: 25 units Documented by: [id number] Cosigned by: [id number] Admin: 08/14/19 07:45 Dose: 19 units Documented by: [id number] Cosigned by: [id number] Admin: 08/13/19 20:40 Dose: 8 units Documented by: [id number] Cosigned by: [id number] Admin: 08/13/19 16:53 Dose: 13 units Documented by: [id number] Cosigned by: [id number] Admin: 08/13/19 11:49 Dose: 42 units Documented by: [id number] Cosigned by: [id number] Admin: 08/13/19 08:22 Dose: 32 units Documented by: [id number] Cosigned by: [id number] Admin: 08/13/19 01:51 Dose: Not Given Documented by: [id number] Cosigned by: [id number] Admin: 08/12/19 21:31 Dose: Not Given Documented by: [id number] Admin: 08/12/19 17:58 Dose: 29 units Documented by: [id number] Cosigned by: [id number] Admin: 08/12/19 12:44 Dose: 46 units Documented by: [id number] Cosigned by: [id number] Insulin Aspart (Novolog Flexpen) 0 units SC 0200 LELIA Stop: 08/13/19 02:01 Last Admin: 08/13/19 02:16 Dose: Not Given Documented by: [id number] Cosigned by: [id number] Insulin Aspart (Novolog Flexpen) 0 units SC TODAY@0200 [facility]; Protocol Stop: 08/14/19 02:01 Last Admin: 08/14/19 02:10 Dose: 2 units Documented by: [id number] Cosigned by: [id number] Insulin Glargine (Lantus Solostar Pen) 60 units SC ONE ONE Stop: 08/12/19 05:16 Last Admin: 08/12/19 05:33 Dose: Not Given Documented by: [id number] Insulin Glargine (Lantus Solostar Pen) 50 units SC ONCE ONE Stop: 08/12/19 05:46 Last Admin: 08/12/19 05:47 Dose: 50 units Documented by: [id number] Cosigned by: [id number] Insulin Glargine (Lantus Solostar Pen) 25 units SC ONCE ONE Stop: 08/12/19 10:01 Last Admin: 08/12/19 10:07 Dose: 25 units Documented by: [id number] Cosigned by: [id number] Insulin Glargine (Lantus Solostar Pen) 0 units SC [facility]; Protocol Stop: 08/12/19 21:01 Last Admin: 08/12/19 21:30 Dose: Not Given Documented by: [id number] Cosigned by: [id number] Insulin Glargine (Lantus) 100 units SC ONE ONE; Protocol Stop: 08/13/19 08:31 Last Admin: 08/13/19 08:43 Dose: 100 units Documented by: [id number] Cosigned by: [id number] Insulin Glargine (Lantus Solostar Pen) 0 units SC HS ONE; Protocol Stop: 08/13/19 21:01 Last Admin: 08/13/19 20:38 Dose: 20 units Documented by: [id number] Cosigned by: [id number] Insulin Glargine (Lantus Solostar Pen) 90 units SC [facility] Stop: 09/13/19 08:59 Last Admin: 08/14/19 08:49 Dose: 90 units Documented by: [id number] Cosigned by: [id number] Insulin Human Regular (Novolin R U-100 Per Unit) 10 units IV NOW STA Stop: 08/11/19 14:00 Last Admin: 08/11/19 14:11 Dose: 10 units Documented by: [id number] Cosigned by: [id number] Metoprolol Succinate (Toprol Xl) 100 mg PO QPM LELIA Stop: 09/11/19 20:59 Last Admin: 08/13/19 20:39 Dose: 100 mg Documented by: [id number] Admin: 08/12/19 21:32 Dose: 100 mg Documented by: [id number] Miscellaneous (Insulin Protocol Dka Goal Range) 1 ea N/A ONE ONE Stop: 08/11/19 14:31 Last Admin: 08/11/19 15:04 Dose: 1 ea Documented by: [id number] Miscellaneous (Carbohydrates For Hypoglycemia) 15 - 30 gm PO UD PRN PRN Reason: Hypoglycemia Treatment Stop: 09/10/19 23:44 Last Admin: 08/13/19 15:42 Dose: 15 gm Documented by: [id number] Miscellaneous Information (Dc Iv Insulin Infusion) 1 ea N/A 1100 ONE Stop: 08/12/19 11:01 Last Admin: 08/12/19 11:17 Dose: 1 ea Documented by: [id number] Morphine Sulfate (Morphine Sulfate) 2 mg IV NOW STA Stop: 08/11/19 13:38 Last Admin: 08/11/19 13:43 Dose: 2 mg Documented by: [id number] Ondansetron HCl (Zofran Odt) 8 mg PO ONE ONE Stop: 08/11/19 13:38 Last Admin: 08/11/19 13:44 Dose: Not Given Documented by: [id number] Ondansetron HCl (Zofran) 4 mg IV NOW STA Stop: 08/11/19 13:40 Last Admin: 08/11/19 13:42 Dose: 4 mg Documented by: [id number] Ondansetron HCl (Zofran) Confirm Administered Dose 4 mg .ROUTE .STK-MED ONE Stop: 08/11/19 13:41 Last Admin: 08/11/19 13:44 Dose: Not Given Documented by: [id number] Pantoprazole Sodium (Protonix) 40 mg PO QAM LELIA Stop: 09/11/19 17:14 Last Admin: 08/14/19 08:48 Dose: 40 mg Documented by: [id number] Admin: 08/13/19 08:21 Dose: 40 mg Documented by: [id number] Admin: 08/12/19 18:08 Dose: 40 mg Documented by: [id number] Sodium Bicarbonate (Sodium Bicarbonate 8.4%) 100 meq IV NOW STA Stop: 08/11/19 15:02 Last Admin: 08/11/19 15:22 Dose: 100 meq Documented by: [id number] Sodium Polystyrene Sulfonate (Kayexalate) 30 gm PO NOW STA Stop: 08/11/19 14:37 Last Admin: 08/11/19 15:24 Dose: 30 gm Documented by: [id number] Medical Decision Making Differential Diagnosis Differential Diagnosis includes but is not limited to dehydration, stroke, anemia, hypoglycemia, hyponatremia, hypernatremia, urinary tract infection, pneumonia, bronchitis, sepsis, gastroenteritis, additional abdominal pathology, metabolic abnormalities and infections. Medical Records Attestation: I reviewed the patient's medical records. Home Medications Current Medication List: was personally reviewed by me Laboratory Data Attestation: I reviewed the patient's lab results. Result diagrams: 08/14/19 05:59 08/14/19 05:59 Lab Results 08/11/19 08/11/19 08/11/19 Range/Units 13:20 13:20 13:20 WBC 13.08 H (4.8-10.8) K/uL RBC 3.94 L (4.7-6.1) M/uL Hgb 11.0 L (14.0-18.0) g/dL POC Hgb (14.0-18.0) g/dl Hct 34.2 L (42-52) % POC Hct (42-52) % MCV 86.8 (80-100) fL MCH 27.9 (25-34) pg MCHC 32.2 (32-36) g/dL RDW Std Deviation 40.5 (36.4-46.3) fL RDW Coeff of Diane 12.7 (11.5-14.5) % Plt Count 217 (130-400) K/uL MPV 11.6 H (7.4-10.4) fL Immature Gran % (Auto) 0.4 % Neut % (Auto) 71.9 % Lymph % (Auto) 21.3 % [place] % (Auto) 5.5 % Eos % (Auto) 0.4 % Baso % (Auto) 0.5 % Immature Gran # (Auto) 0.05 H (0.00-0.02) K/uL Neut # (Auto) 9.40 H (1.4-6.5) K/uL Lymph # (Auto) 2.79 (1.2-3.4) K/uL [place] # (Auto) 0.72 H (0.11-0.59) K/uL Eos # (Auto) 0.05 (0-0.5) K/uL Baso # (Auto) 0.07 (0-0.2) K/uL PT 10.3 (9.0-12.0) Seconds INR 1.0 (0.9-1.1) APTT 24.1 (21.0-31.0) Seconds PTT Ratio 0.9 POC D-Dimer (0-450) ng/mlFEU VBG pH (7.36-7.41) POC Sodium (135-144) mEq/L Sodium 131 L (136-145) mmol/L POC Potassium (3.3-5.0) mEq/L Potassium 7.3 H* (3.5-5.1) mmol/L POC Chloride (101-112) mEq/L Chloride 94 L (98-107) mmol/L Carbon Dioxide 24 (21-32) mmol/L POC Total CO2 (24-31) mEq/l Anion Gap 11.0 (3-11) POC Anion Gap (16-25) mmol/L POC BUN (7-18) mg/dl BUN 46 H (7-18) mg/dl Creatinine 3.20 H (0.6-1.4) mg/dl POC Creatinine (0.6-1.3) mg/dl Est Cr Clr Drug Dosing 31.2 ml/min Est GFR ( Amer) 24.3 Est GFR (Non-Af Amer) 21.0 BUN/Creatinine Ratio 14.4 (10-20) Glucose 452 H* (70-99) mg/dl POC Glucose (70-99) POC Glucose (other) (70-99) mg/dl Calcium 8.0 L (8.5-10.1) mg/dl POC Ioniz Calcium Siri (1.12-1.32) mmol/l Phosphorus (2.5-4.9) mg/dl Magnesium (1.8-2.4) mg/dl Total Bilirubin 0.6 (0.2-1) mg/dl AST 122 H (15-37) U/L ALT 127 H (12-78) U/L Alkaline Phosphatase 113 (45-117) U/L POC Troponin I (0-0.045) ng/ml Troponin I < 0.015 (0-0.045) ng/ml NT-Pro-B Natriuret Pep 307 (0-900) pg/ml Total Protein 7.1 (6.4-8.2) gm/dl Albumin 3.3 L (3.4-5.0) gm/dl Globulin 3.8 (2.5-4.0) gm/dl Albumin/Globulin Ratio 0.9 (0.9-2) Lipase 48 L (73-393) U/L Beta-Hydroxybutyric Acd 2.47 (0.2-2.81) mg/dl 08/11/19 08/11/19 08/11/19 Range/Units 13:20 13:28 13:58 WBC (4.8-10.8) K/uL RBC (4.7-6.1) M/uL Hgb (14.0-18.0) g/dL POC Hgb (14.0-18.0) g/dl Hct (42-52) % POC Hct (42-52) % MCV (80-100) fL MCH (25-34) pg MCHC (32-36) g/dL RDW Std Deviation (36.4-46.3) fL RDW Coeff of Diane (11.5-14.5) % Plt Count (130-400) K/uL MPV (7.4-10.4) fL Immature Gran % (Auto) % Neut % (Auto) % Lymph % (Auto) % [place] % (Auto) % Eos % (Auto) % Baso % (Auto) % Immature Gran # (Auto) (0.00-0.02) K/uL Neut # (Auto) (1.4-6.5) K/uL Lymph # (Auto) (1.2-3.4) K/uL [place] # (Auto) (0.11-0.59) K/uL Eos # (Auto) (0-0.5) K/uL Baso # (Auto) (0-0.2) K/uL PT (9.0-12.0) Seconds INR (0.9-1.1) APTT (21.0-31.0) Seconds PTT Ratio POC D-Dimer 143 (0-450) ng/mlFEU VBG pH (7.36-7.41) POC Sodium (135-144) mEq/L Sodium (136-145) mmol/L POC Potassium (3.3-5.0) mEq/L Potassium (3.5-5.1) mmol/L POC Chloride (101-112) mEq/L Chloride (98-107) mmol/L Carbon Dioxide (21-32) mmol/L POC Total CO2 (24-31) mEq/l Anion Gap (3-11) POC Anion Gap (16-25) mmol/L POC BUN (7-18) mg/dl BUN (7-18) mg/dl Creatinine (0.6-1.4) mg/dl POC Creatinine (0.6-1.3) mg/dl Est Cr Clr Drug Dosing ml/min Est GFR ( Amer) Est GFR (Non-Af Amer) BUN/Creatinine Ratio (10-20) Glucose (70-99) mg/dl POC Glucose 486 H* (70-99) POC Glucose (other) (70-99) mg/dl Calcium (8.5-10.1) mg/dl POC Ioniz Calcium Siri (1.12-1.32) mmol/l Phosphorus (2.5-4.9) mg/dl Magnesium (1.8-2.4) mg/dl Total Bilirubin (0.2-1) mg/dl AST (15-37) U/L ALT (12-78) U/L Alkaline Phosphatase (45-117) U/L POC Troponin I < 0.03 (0-0.045) ng/ml Troponin I (0-0.045) ng/ml NT-Pro-B Natriuret Pep Cancelled (0-900) pg/ml Total Protein (6.4-8.2) gm/dl Albumin (3.4-5.0) gm/dl Globulin (2.5-4.0) gm/dl Albumin/Globulin Ratio (0.9-2) Lipase (73-393) U/L Beta-Hydroxybutyric Acd (0.2-2.81) mg/dl 08/11/19 08/11/19 08/11/19 Range/Units 14:48 14:50 14:52 WBC (4.8-10.8) K/uL RBC (4.7-6.1) M/uL Hgb (14.0-18.0) g/dL POC Hgb (14.0-18.0) g/dl Hct (42-52) % POC Hct (42-52) % MCV (80-100) fL MCH (25-34) pg MCHC (32-36) g/dL RDW Std Deviation (36.4-46.3) fL RDW Coeff of Diane (11.5-14.5) % Plt Count (130-400) K/uL MPV (7.4-10.4) fL Immature Gran % (Auto) % Neut % (Auto) % Lymph % (Auto) % [place] % (Auto) % Eos % (Auto) % Baso % (Auto) % Immature Gran # (Auto) (0.00-0.02) K/uL Neut # (Auto) (1.4-6.5) K/uL Lymph # (Auto) (1.2-3.4) K/uL [place] # (Auto) (0.11-0.59) K/uL Eos # (Auto) (0-0.5) K/uL Baso # (Auto) (0-0.2) K/uL PT (9.0-12.0) Seconds INR (0.9-1.1) APTT (21.0-31.0) Seconds PTT Ratio POC D-Dimer (0-450) ng/mlFEU VBG pH (7.36-7.41) POC Sodium (135-144) mEq/L Sodium 129 L (136-145) mmol/L POC Potassium (3.3-5.0) mEq/L Potassium 7.3 H* (3.5-5.1) mmol/L POC Chloride (101-112) mEq/L Chloride 96 L (98-107) mmol/L Carbon Dioxide 26 (21-32) mmol/L POC Total CO2 (24-31) mEq/l Anion Gap 8.0 (3-11) POC Anion Gap (16-25) mmol/L POC BUN (7-18) mg/dl BUN 49 H (7-18) mg/dl Creatinine 3.16 H (0.6-1.4) mg/dl POC Creatinine (0.6-1.3) mg/dl Est Cr Clr Drug Dosing 31.6 ml/min Est GFR ( Amer) 24.7 Est GFR (Non-Af Amer) 21.3 BUN/Creatinine Ratio 15.5 (10-20) Glucose 466 H* (70-99) mg/dl POC Glucose 500 H* 509 H* (70-99) POC Glucose (other) (70-99) mg/dl Calcium 8.2 L (8.5-10.1) mg/dl POC Ioniz Calcium Siri (1.12-1.32) mmol/l Phosphorus 4.3 (2.5-4.9) mg/dl Magnesium 2.1 (1.8-2.4) mg/dl Total Bilirubin (0.2-1) mg/dl AST (15-37) U/L ALT (12-78) U/L Alkaline Phosphatase (45-117) U/L POC Troponin I (0-0.045) ng/ml Troponin I (0-0.045) ng/ml NT-Pro-B Natriuret Pep (0-900) pg/ml Total Protein (6.4-8.2) gm/dl Albumin (3.4-5.0) gm/dl Globulin (2.5-4.0) gm/dl Albumin/Globulin Ratio (0.9-2) Lipase (73-393) U/L Beta-Hydroxybutyric Acd 2.22 (0.2-2.81) mg/dl 08/11/19 08/11/19 Range/Units 14:52 14:57 WBC (4.8-10.8) K/uL RBC (4.7-6.1) M/uL Hgb (14.0-18.0) g/dL POC Hgb 10.2 L (14.0-18.0) g/dl Hct (42-52) % POC Hct 30 L (42-52) % MCV (80-100) fL MCH (25-34) pg MCHC (32-36) g/dL RDW Std Deviation (36.4-46.3) fL RDW Coeff of Diane (11.5-14.5) % Plt Count (130-400) K/uL MPV (7.4-10.4) fL Immature Gran % (Auto) % Neut % (Auto) % Lymph % (Auto) % [place] % (Auto) % Eos % (Auto) % Baso % (Auto) % Immature Gran # (Auto) (0.00-0.02) K/uL Neut # (Auto) (1.4-6.5) K/uL Lymph # (Auto) (1.2-3.4) K/uL [place] # (Auto) (0.11-0.59) K/uL Eos # (Auto) (0-0.5) K/uL Baso # (Auto) (0-0.2) K/uL PT (9.0-12.0) Seconds INR (0.9-1.1) APTT (21.0-31.0) Seconds PTT Ratio POC D-Dimer (0-450) ng/mlFEU VBG pH 7.30 L (7.36-7.41) POC Sodium 129 L (135-144) mEq/L Sodium (136-145) mmol/L POC Potassium 7.5 H* (3.3-5.0) mEq/L Potassium (3.5-5.1) mmol/L POC Chloride 96 L (101-112) mEq/L Chloride (98-107) mmol/L Carbon Dioxide (21-32) mmol/L POC Total CO2 26 (24-31) mEq/l Anion Gap (3-11) POC Anion Gap 15.0 L (16-25) mmol/L POC BUN 45 H (7-18) mg/dl BUN (7-18) mg/dl Creatinine (0.6-1.4) mg/dl POC Creatinine 3.2 H (0.6-1.3) mg/dl Est Cr Clr Drug Dosing ml/min Est GFR ( Amer) Est GFR (Non-Af Amer) BUN/Creatinine Ratio (10-20) Glucose (70-99) mg/dl POC Glucose (70-99) POC Glucose (other) 475 H* (70-99) mg/dl Calcium (8.5-10.1) mg/dl POC Ioniz Calcium Siri 1.09 L (1.12-1.32) mmol/l Phosphorus (2.5-4.9) mg/dl Magnesium (1.8-2.4) mg/dl Total Bilirubin (0.2-1) mg/dl AST (15-37) U/L ALT (12-78) U/L Alkaline Phosphatase (45-117) U/L POC Troponin I (0-0.045) ng/ml Troponin I (0-0.045) ng/ml NT-Pro-B Natriuret Pep (0-900) pg/ml Total Protein (6.4-8.2) gm/dl Albumin (3.4-5.0) gm/dl Globulin (2.5-4.0) gm/dl Albumin/Globulin Ratio (0.9-2) Lipase (73-393) U/L Beta-Hydroxybutyric Acd (0.2-2.81) mg/dl Imaging Data Radiologist's Impression: Radiology results as stated below per my review and the radiologist's interpretation: SINGLE VIEW CHEST CLINICAL HISTORY: Atypical chest pain. FINDINGS: An AP, portable, upright chest radiograph is compared to study dated 02/20/2019 and correlated with chest CT dated 01/17/2018. The examination is degraded by portable technique and patient rotation. The heart is mildly enlarged. The pulmonary vasculature is noncongested. There is mild bibasilar atelectasis. The lungs and pleural spaces are otherwise clear. No pneumothorax is seen. The bony thorax is grossly intact. IMPRESSION: Mild cardiac enlargement with no acute cardiopulmonary abnormality. Electronically signed by: Fernando Carver M.D. 08/11/2019 2:41 PM ECG Data Attestation: I personally reviewed and interpreted this ECG as follows: Indication: chest pain Rate (beats per minute): 35 Rhythm: sinus bradycardia Findings: + other (peaked T-waves, QTC 425); no ST depression, no ST elevation and no acute ischemic change Additional Comments: REPEAT EKG: Sinus rhythm at a rate of 47 bpm with PACs and peaked T-waves present, no acute ischemic changes; rate has increase since previous EKG Blood Pressure Blood Pressure Findings: Low blood pressure MDM Narrative This patient was evaluated and appeared to be in no significant distress however he was noted to be bradycardic and ill appearing. IV access was obtained and laboratory work was drawn. Chest x-ray reveals cardiomegaly without any evidence of CHF. EKG reveals a profound bradycardia with peaked T waves. Laboratory work is concerning for a potassium of 7.3. Patient's glucose is noted to be in the 400s and creatinine of 3.2. Patient was immediately given IV calcium gluconate and 10 units of IV regular insulin. IV fluids were initiated. Patient was given 0.5 mg of IV atropine without significant improvement. He was given additional IV calcium gluconate, IV bicarb, a large dose of IV Lasix of 160 mg per nephrology. An albuterol nebulizer treatment over 1 hour was administered. I did speak with Dr. Rodriguez who will evaluate the patient TERESA to help arrange dialysis. Patient was then placed on an insulin drip. Repeat potassium is just below 7. Patient had significant improvement in his heart rate. He was then given p.o. Kayexalate. Case was discussed with the tire recapper as well as the hospitalist service. A Shell catheter was placed and the patient is making urine. Impression & Plan Hyperkalemia, Bradycardia, Hypotension, Acute on chronic renal failure Critical Care Time Critical Care Time: Yes Total Critical Care Time: 60 I have personally spent greater than 60 minutes of critical care time in the direct management of this patient. This includes bedside care, interpretation of diagnostic studies, and testing, discussion with consultants, patient, and family members, and other required patient management activities. This 60 minutes is in excess of all separately billable procedures. Discharge Plan Visit Data *Final* Discharge Date/Time: 08/11/19 16:32 Chief Complaint: Chest Pain Stated Complaint: chest tightness/sob ED Provider: Irma Presley ED Midlevel Provider: Parvin López Discharge Problem: Hyperkalemia, Bradycardia, Hypotension, Acute on chronic renal failure Patient Disposition: Admitted As Inpatient Condition: Good Discharge Instructions Interventions: ED Discharge Assessment Last Done: 08/11/19 16:32 Discharge Problem: Hypotension Qualifiers: Hypotension type: unspecified hypotension type Qualified Code(s): I95.9 - Hy potension, unspecified Acute on chronic renal failure Qualifiers: Acute renal failure type: unspecified Chronic kidney disease stage: unspecified stage Qualified Code(s): N17.9 - Acute kidney failure, unspecified The scribe's documentation has been prepared under my direction and personally reviewed by me in its entirety. I confirm that the note above accurately reflects all work, treatment, procedures, and medical decision making performed by me.
[2019-08-11 15:46] LABS: BUN Creatinine Ratio 15.5 (10-20); Calcium 8.2 mg/dl (8.5-10.1); Creatinine Clr Calc Pharmacy 31.6 ml/min; Est GFR (African American) 24.7; Est GFR (Non-African American) 21.3; Magnesium 2.1 mg/dl (1.8-2.4); Phosphorus 4.3 mg/dl (2.5-4.9); Potassium 7.3 mmol/L (3.5-5.1)
[2019-08-11 15:58] LABS: Beta-Hydroxybutyrate 2.22 mg/dl (0.2-2.81)
--- NOTE | 2019-08-11 16:06 | Critical Care Consultation ---
Date of Consultation August 11, 2019 Assessment & Plan (1) Hyperkalemia: Reason Critically Ill: Symptomatic hyperkalemia with bradycardia and hypotension PLAN: Resp: At risk for hypoventilation BMI 40, snoring and room CV: Bradycardia Hypotension: Resolved -Likely secondary to acute kidney injury and hyperkalemia Fluids/Renal: Acute kidney injury in the setting of chronic kidney disease ID: Urine culture pending GI/Nutrition: N.p.o. until through emergent dialysis Heme: DVT prophylaxis: Heparin 5000 3 times daily Endocrine: ICU hyperglycemia protocol Checking A1c -Insulin infusion Vascular access: Peripheral IVs, right internal jugular temporary HD catheter Code Status: Full (2) Acute kidney injury: (3) Stage 4 chronic kidney disease due to diabetes mellitus: (4) Bradycardia: (5) Acute on chronic renal failure: (6) Obesity (BMI 30-39.9): (7) WHIT (obstructive sleep apnea): (8) Poorly controlled diabetes mellitus: History of Present Illness Reason for Consultation: Hyperkalemia Requesting Physician: Fernandez Attending Physician: Malcolm History of Present Illness Patient is a 54-year-old male with a history of diastolic congestive heart failure who presented to [facility] in emergency department. He was found to have a serum potassium level greater than 7 and had significant symptomatology including bradycardia it is noted that he takes beta-blockers and calcium channel blockers as well. A Shell catheter was placed he was started on insulin, albuterol, Lasix, given calcium chloride as well as bicarb. It is felt that the patient would benefit from urgent hemodialysis given symptomatic hyperkalemia. I have been asked to admit the patient to the ICU and place a temporary hemodialysis catheter. Allergies Allergy/AdvReac Type Severity Reaction Status Date / Time amitriptyline AdvReac Unknown Verified 07/22/19 10:21 Home Medications Home Medications Medication Instructions Recorded Confirmed Type aspirin [Aspir-81] 81 mg PO QPM 08/02/18 08/11/19 History atorvastatin 80 mg PO QPM 08/02/18 08/11/19 History magnesium oxide 400 mg PO QPM 08/02/18 08/11/19 History metoprolol succinate 100 mg PO QPM 08/02/18 08/11/19 History omeprazole 20 mg PO QPM 08/02/18 08/11/19 History tramadol 50 mg PO TID PRN 08/02/18 08/11/19 History diltiazem HCl 180 mg PO QPM 02/20/19 08/11/19 History omega 3-aja-mxn-fish oil [Fish Oil] 1 cap PO QPM 02/20/19 08/11/19 History insulin glargine (U- 100) 100 60 units SUBCUT QPM ml 06/27/19 08/11/19 History unit/mL subcutaneous solution lisinopril 20 mg tablet 10 mg PO QPM tab 06/27/19 08/11/19 History torsemide 20 mg tablet 80 mg PO DAILY tab 06/27/19 08/11/19 History insulin regular hum U-500 conc 90 units SUBCUT QPM 07/22/19 08/11/19 History Patient History Medical History Diastolic CHF (Chronic) Proteinuria Chronic kidney disease (Chronic) Obesity (BMI 30-39.9) HLD (hyperlipidemia) Hyperkalemia Diabetes (Chronic) Hypertension (Chronic) Acute CHF Hyperglycemia Rib pain on left side (Acute) COSMO (acute kidney injury) Diastolic CHF, acute on chronic Dyspnea Hyponatremia Surgical History No pertinent past surgical history Cataract (Resolved) Family History Other Coronary heart disease Diabetes Hypertension Social History Preferred Language: Russian Communication Ability: Effective Division Head Required: No Beliefs That Will Affect Care: None marital status: Current Living Situation: Spouse Current Living Situation Comment: Four children, grown & in good health current occupational status: employed 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 Former Feels Safe at Home: Yes Smoking Status: Former smoker Hx Alcohol Use: No Hx Substance Use: No Review of Systems Review of Systems: During my evaluation no chest pain, no shortness of breath, nausea is improved. Physical Exam Physical Exam: General: Obese male appears stated age I have reviewed the recorded vital signs Neurological: RASS score: 0, Moves all 4 extremities, Psychological: GCS 15 following complex commands Eyes: Pupils are equal, round and reactive to light, anicteric sclera. Symmetrical lids. HENT: Oropharynx Clear, moist Mucous Membranes. Neck: Supple. Symmetric. trachea midline. No thyromegaly. Cardiovascular: Normal peripheral perfusion. Distal pulses and capillary refill intact. No JVD. Respiratory: Respirations are non-labored, no accessory muscle use. Breath sounds are equal. Gastrointestinal: Soft. Non-distended. Lymphatic: No cervical lymphadenopathy. Musculoskeletal: No deformity. No clubbing nor cyanosis. Results & Data Vital Signs (Past 12 Hours) Vital Signs Temp Pulse Pulse Resp BP BP Pulse Ox 08/11/19 15:30 63 23 134/55 L 97 08/11/19 15:15 37 L 14 101/47 L 98 08/11/19 15:13 37 L 12 97 08/11/19 15:00 37 L 17 109/54 L 94 08/11/19 14:45 38 L 14 98/45 L 91 08/11/19 14:31 38 L 13 93/50 L 88 L 08/11/19 14:30 38 L 13 86 L 08/11/19 14:25 44 L 98/47 L 90 08/11/19 14:16 37 L 18 91 08/11/19 14:15 38 L 16 98/60 L 89 L 08/11/19 14:14 37 L 19 111/60 92 08/11/19 14:00 33 L 17 89 L 08/11/19 13:58 37 L 18 91 08/11/19 13:51 32 L 14 99/42 L 96 08/11/19 13:49 34 L 16 85/39 L 95 08/11/19 13:45 30 L 18 96 08/11/19 13:32 87 L 08/11/19 13:31 45 L 101/50 L 90 08/11/19 13:29 93/49 L 08/11/19 13:24 93 08/11/19 13:06 36.8 C 36 L 26 H 103/40 L 103/40 L 94 08/11/19 13:05 30 L 24 91 Laboratory Results 08/11/19 08/11/19 08/11/19 Range/Units 17:31 16:55 16:17 WBC (4.8-10.8) K/uL RBC (4.7-6.1) M/uL Hgb (14.0-18.0) g/dL POC Hgb 10.5 L (14.0-18.0) g/dl Hct (42-52) % POC Hct 31 L (42-52) % MCV (80-100) fL MCH (25-34) pg MCHC (32-36) g/dL RDW Std Deviation (36.4-46.3) fL RDW Coeff of Diane (11.5-14.5) % Plt Count (130-400) K/uL MPV (7.4-10.4) fL Immature Gran % (Auto) % Neut % (Auto) % Lymph % (Auto) % Jewell % (Auto) % Eos % (Auto) % Baso % (Auto) % Immature Gran # (Auto) (0.00-0.02) K/uL Neut # (Auto) (1.4-6.5) K/uL Lymph # (Auto) (1.2-3.4) K/uL Jewell # (Auto) (0.11-0.59) K/uL Eos # (Auto) (0-0.5) K/uL Baso # (Auto) (0-0.2) K/uL PT (9.0-12.0) Seconds INR (0.9-1.1) APTT (21.0-31.0) Seconds PTT Ratio POC D-Dimer (0-450) ng/mlFEU VBG pH (7.36-7.41) POC Sodium 133 L (135-144) mEq/L Sodium (136-145) mmol/L POC Potassium 6.4 H* (3.3-5.0) mEq/L Potassium (3.5-5.1) mmol/L POC Chloride 97 L (101-112) mEq/L Chloride (98-107) mmol/L Carbon Dioxide (21-32) mmol/L POC Total CO2 29 (24-31) mEq/l Anion Gap (3-11) POC Anion Gap 15.0 L (16-25) mmol/L POC BUN 44 H (7-18) mg/dl BUN (7-18) mg/dl Creatinine (0.6-1.4) mg/dl POC Creatinine 3.1 H (0.6-1.3) mg/dl Est Cr Clr Drug Dosing ml/min Est GFR ( Amer) Est GFR (Non-Af Amer) BUN/Creatinine Ratio (10-20) Glucose (70-99) mg/dl POC Glucose 278 H (70-99) POC Glucose (other) 356 H* (70-99) mg/dl Calcium (8.5-10.1) mg/dl POC Ioniz Calcium Siri 1.10 L (1.12-1.32) mmol/l Phosphorus (2.5-4.9) mg/dl Magnesium (1.8-2.4) mg/dl Total Bilirubin (0.2-1) mg/dl AST (15-37) U/L ALT (12-78) U/L Alkaline Phosphatase (45-117) U/L POC Troponin I (0-0.045) ng/ml Troponin I (0-0.045) ng/ml NT-Pro-B Natriuret Pep (0-900) pg/ml Total Protein (6.4-8.2) gm/dl Albumin (3.4-5.0) gm/dl Globulin (2.5-4.0) gm/dl Albumin/Globulin Ratio (0.9-2) Lipase (73-393) U/L Beta-Hydroxybutyric Acd (0.2-2.81) mg/dl Nasal Screen MRSA (PCR) Pending 08/11/19 08/11/19 08/11/19 Range/Units 15:58 14:57 14:52 WBC (4.8-10.8) K/uL RBC (4.7-6.1) M/uL Hgb (14.0-18.0) g/dL POC Hgb 10.2 L (14.0-18.0) g/dl Hct (42-52) % POC Hct 30 L (42-52) % MCV (80-100) fL MCH (25-34) pg MCHC (32-36) g/dL RDW Std Deviation (36.4-46.3) fL RDW Coeff of Diane (11.5-14.5) % Plt Count (130-400) K/uL MPV (7.4-10.4) fL Immature Gran % (Auto) % Neut % (Auto) % Lymph % (Auto) % Jewell % (Auto) % Eos % (Auto) % Baso % (Auto) % Immature Gran # (Auto) (0.00-0.02) K/uL Neut # (Auto) (1.4-6.5) K/uL Lymph # (Auto) (1.2-3.4) K/uL Jewell # (Auto) (0.11-0.59) K/uL Eos # (Auto) (0-0.5) K/uL Baso # (Auto) (0-0.2) K/uL PT (9.0-12.0) Seconds INR (0.9-1.1) APTT (21.0-31.0) Seconds PTT Ratio POC D-Dimer (0-450) ng/mlFEU VBG pH 7.30 L (7.36-7.41) POC Sodium 129 L (135-144) mEq/L Sodium (136-145) mmol/L POC Potassium 7.5 H* (3.3-5.0) mEq/L Potassium (3.5-5.1) mmol/L POC Chloride 96 L (101-112) mEq/L Chloride (98-107) mmol/L Carbon Dioxide (21-32) mmol/L POC Total CO2 26 (24-31) mEq/l Anion Gap (3-11) POC Anion Gap 15.0 L (16-25) mmol/L POC BUN 45 H (7-18) mg/dl BUN (7-18) mg/dl Creatinine (0.6-1.4) mg/dl POC Creatinine 3.2 H (0.6-1.3) mg/dl Est Cr Clr Drug Dosing ml/min Est GFR ( Amer) Est GFR (Non-Af Amer) BUN/Creatinine Ratio (10-20) Glucose (70-99) mg/dl POC Glucose 386 H* (70-99) POC Glucose (other) 475 H* (70-99) mg/dl Calcium (8.5-10.1) mg/dl POC Ioniz Calcium Siri 1.09 L (1.12-1.32) mmol/l Phosphorus (2.5-4.9) mg/dl Magnesium (1.8-2.4) mg/dl Total Bilirubin (0.2-1) mg/dl AST (15-37) U/L ALT (12-78) U/L Alkaline Phosphatase (45-117) U/L POC Troponin I (0-0.045) ng/ml Troponin I (0-0.045) ng/ml NT-Pro-B Natriuret Pep (0-900) pg/ml Total Protein (6.4-8.2) gm/dl Albumin (3.4-5.0) gm/dl Globulin (2.5-4.0) gm/dl Albumin/Globulin Ratio (0.9-2) Lipase (73-393) U/L Beta-Hydroxybutyric Acd (0.2-2.81) mg/dl Nasal Screen MRSA (PCR) 08/11/19 08/11/19 08/11/19 Range/Units 14:52 14:50 14:48 WBC (4.8-10.8) K/uL RBC (4.7-6.1) M/uL Hgb (14.0-18.0) g/dL POC Hgb (14.0-18.0) g/dl Hct (42-52) % POC Hct (42-52) % MCV (80-100) fL MCH (25-34) pg MCHC (32-36) g/dL RDW Std Deviation (36.4-46.3) fL RDW Coeff of Diane (11.5-14.5) % Plt Count (130-400) K/uL MPV (7.4-10.4) fL Immature Gran % (Auto) % Neut % (Auto) % Lymph % (Auto) % Jewell % (Auto) % Eos % (Auto) % Baso % (Auto) % Immature Gran # (Auto) (0.00-0.02) K/uL Neut # (Auto) (1.4-6.5) K/uL Lymph # (Auto) (1.2-3.4) K/uL Jewell # (Auto) (0.11-0.59) K/uL Eos # (Auto) (0-0.5) K/uL Baso # (Auto) (0-0.2) K/uL PT (9.0-12.0) Seconds INR (0.9-1.1) APTT (21.0-31.0) Seconds PTT Ratio POC D-Dimer (0-450) ng/mlFEU VBG pH (7.36-7.41) POC Sodium (135-144) mEq/L Sodium 129 L (136-145) mmol/L POC Potassium (3.3-5.0) mEq/L Potassium 7.3 H* (3.5-5.1) mmol/L POC Chloride (101-112) mEq/L Chloride 96 L (98-107) mmol/L Carbon Dioxide 26 (21-32) mmol/L POC Total CO2 (24-31) mEq/l Anion Gap 8.0 (3-11) POC Anion Gap (16-25) mmol/L POC BUN (7-18) mg/dl BUN 49 H (7-18) mg/dl Creatinine 3.16 H (0.6-1.4) mg/dl POC Creatinine (0.6-1.3) mg/dl Est Cr Clr Drug Dosing 31.6 ml/min Est GFR ( Amer) 24.7 Est GFR (Non-Af Amer) 21.3 BUN/Creatinine Ratio 15.5 (10-20) Glucose 466 H* (70-99) mg/dl POC Glucose 509 H* 500 H* (70-99) POC Glucose (other) (70-99) mg/dl Calcium 8.2 L (8.5-10.1) mg/dl POC Ioniz Calcium Siri (1.12-1.32) mmol/l Phosphorus 4.3 (2.5-4.9) mg/dl Magnesium 2.1 (1.8-2.4) mg/dl Total Bilirubin (0.2-1) mg/dl AST (15-37) U/L ALT (12-78) U/L Alkaline Phosphatase (45-117) U/L POC Troponin I (0-0.045) ng/ml Troponin I (0-0.045) ng/ml NT-Pro-B Natriuret Pep (0-900) pg/ml Total Protein (6.4-8.2) gm/dl Albumin (3.4-5.0) gm/dl Globulin (2.5-4.0) gm/dl Albumin/Globulin Ratio (0.9-2) Lipase (73-393) U/L Beta-Hydroxybutyric Acd 2.22 (0.2-2.81) mg/dl Nasal Screen MRSA (PCR) 08/11/19 08/11/19 08/11/19 Range/Units 13:58 13:28 13:20 WBC (4.8-10.8) K/uL RBC (4.7-6.1) M/uL Hgb (14.0-18.0) g/dL POC Hgb (14.0-18.0) g/dl Hct (42-52) % POC Hct (42-52) % MCV (80-100) fL MCH (25-34) pg MCHC (32-36) g/dL RDW Std Deviation (36.4-46.3) fL RDW Coeff of Diane (11.5-14.5) % Plt Count (130-400) K/uL MPV (7.4-10.4) fL Immature Gran % (Auto) % Neut % (Auto) % Lymph % (Auto) % Jewell % (Auto) % Eos % (Auto) % Baso % (Auto) % Immature Gran # (Auto) (0.00-0.02) K/uL Neut # (Auto) (1.4-6.5) K/uL Lymph # (Auto) (1.2-3.4) K/uL Jewell # (Auto) (0.11-0.59) K/uL Eos # (Auto) (0-0.5) K/uL Baso # (Auto) (0-0.2) K/uL PT (9.0-12.0) Seconds INR (0.9-1.1) APTT (21.0-31.0) Seconds PTT Ratio POC D-Dimer 143 (0-450) ng/mlFEU VBG pH (7.36-7.41) POC Sodium (135-144) mEq/L Sodium (136-145) mmol/L POC Potassium (3.3-5.0) mEq/L Potassium (3.5-5.1) mmol/L POC Chloride (101-112) mEq/L Chloride (98-107) mmol/L Carbon Dioxide (21-32) mmol/L POC Total CO2 (24-31) mEq/l Anion Gap (3-11) POC Anion Gap (16-25) mmol/L POC BUN (7-18) mg/dl BUN (7-18) mg/dl Creatinine (0.6-1.4) mg/dl POC Creatinine (0.6-1.3) mg/dl Est Cr Clr Drug Dosing ml/min Est GFR ( Amer) Est GFR (Non-Af Amer) BUN/Creatinine Ratio (10-20) Glucose (70-99) mg/dl POC Glucose 486 H* (70-99) POC Glucose (other) (70-99) mg/dl Calcium (8.5-10.1) mg/dl POC Ioniz Calcium Siri (1.12-1.32) mmol/l Phosphorus (2.5-4.9) mg/dl Magnesium (1.8-2.4) mg/dl Total Bilirubin (0.2-1) mg/dl AST (15-37) U/L ALT (12-78) U/L Alkaline Phosphatase (45-117) U/L POC Troponin I < 0.03 (0-0.045) ng/ml Troponin I (0-0.045) ng/ml NT-Pro-B Natriuret Pep Cancelled (0-900) pg/ml Total Protein (6.4-8.2) gm/dl Albumin (3.4-5.0) gm/dl Globulin (2.5-4.0) gm/dl Albumin/Globulin Ratio (0.9-2) Lipase (73-393) U/L Beta-Hydroxybutyric Acd (0.2-2.81) mg/dl Nasal Screen MRSA (PCR) 08/11/19 08/11/19 08/11/19 Range/Units 13:20 13:20 13:20 WBC 13.08 H (4.8-10.8) K/uL RBC 3.94 L (4.7-6.1) M/uL Hgb 11.0 L (14.0-18.0) g/dL POC Hgb (14.0-18.0) g/dl Hct 34.2 L (42-52) % POC Hct (42-52) % MCV 86.8 (80-100) fL MCH 27.9 (25-34) pg MCHC 32.2 (32-36) g/dL RDW Std Deviation 40.5 (36.4-46.3) fL RDW Coeff of Diane 12.7 (11.5-14.5) % Plt Count 217 (130-400) K/uL MPV 11.6 H (7.4-10.4) fL Immature Gran % (Auto) 0.4 % Neut % (Auto) 71.9 % Lymph % (Auto) 21.3 % Jewell % (Auto) 5.5 % Eos % (Auto) 0.4 % Baso % (Auto) 0.5 % Immature Gran # (Auto) 0.05 H (0.00-0.02) K/uL Neut # (Auto) 9.40 H (1.4-6.5) K/uL Lymph # (Auto) 2.79 (1.2-3.4) K/uL Jewell # (Auto) 0.72 H (0.11-0.59) K/uL Eos # (Auto) 0.05 (0-0.5) K/uL Baso # (Auto) 0.07 (0-0.2) K/uL PT 10.3 (9.0-12.0) Seconds INR 1.0 (0.9-1.1) APTT 24.1 (21.0-31.0) Seconds PTT Ratio 0.9 POC D-Dimer (0-450) ng/mlFEU VBG pH (7.36-7.41) POC Sodium (135-144) mEq/L Sodium 131 L (136-145) mmol/L POC Potassium (3.3-5.0) mEq/L Potassium 7.3 H* (3.5-5.1) mmol/L POC Chloride (101-112) mEq/L Chloride 94 L (98-107) mmol/L Carbon Dioxide 24 (21-32) mmol/L POC Total CO2 (24-31) mEq/l Anion Gap 11.0 (3-11) POC Anion Gap (16-25) mmol/L POC BUN (7-18) mg/dl BUN 46 H (7-18) mg/dl Creatinine 3.20 H (0.6-1.4) mg/dl POC Creatinine (0.6-1.3) mg/dl Est Cr Clr Drug Dosing 31.2 ml/min Est GFR ( Amer) 24.3 Est GFR (Non-Af Amer) 21.0 BUN/Creatinine Ratio 14.4 (10-20) Glucose 452 H* (70-99) mg/dl POC Glucose (70-99) POC Glucose (other) (70-99) mg/dl Calcium 8.0 L (8.5-10.1) mg/dl POC Ioniz Calcium Siri (1.12-1.32) mmol/l Phosphorus (2.5-4.9) mg/dl Magnesium (1.8-2.4) mg/dl Total Bilirubin 0.6 (0.2-1) mg/dl AST 122 H (15-37) U/L ALT 127 H (12-78) U/L Alkaline Phosphatase 113 (45-117) U/L POC Troponin I (0-0.045) ng/ml Troponin I < 0.015 (0-0.045) ng/ml NT-Pro-B Natriuret Pep 307 (0-900) pg/ml Total Protein 7.1 (6.4-8.2) gm/dl Albumin 3.3 L (3.4-5.0) gm/dl Globulin 3.8 (2.5-4.0) gm/dl Albumin/Globulin Ratio 0.9 (0.9-2) Lipase 48 L (73-393) U/L Beta-Hydroxybutyric Acd 2.47 (0.2-2.81) mg/dl Nasal Screen MRSA (PCR) PG Care Time/CCT Total # of Minutes Spent Total Time Spent with Patient: Total time spent is greater than 50% in coordination of care (as documented) at patient's floor/unit and/or counseling patient: Critical Care Time: Yes Total Critical Care Time: 40 I have personally spent 40 minutes of critical care time in the direct management of this patient. This is a life/limb threatening event. This includes time spent evaluating patient, direct bedside care, chart review, placing orders, interpretation of diagnostic studies, discussion with consultants, patient, and/or family members regarding treatment decisions, as well as other required patient management activities. This time is exclusive of all separately billable procedures, and teaching time and separate from and in addition to any other critical care service time. (1) Acute on chronic renal failure Acute renal failure type: unspecified Chronic kidney disease stage: unspecified stage Qualified Code(s): N17.9 - Acute kidney failure, unspecified; N18.9 - Chronic kidney disease, unspecified
--- NOTE | 2019-08-11 16:07 | Procedure Note ---
Procedure Note Date of Service August 11, 2019 Procedure date: Noted above Procedure: Temporary hemodialysis catheter Pre-procedure indication: Symptomatic hyperkalemia, need for urgent dialysis Post-procedure Diagnosis: same as above Prior to Procedure: Informed Consent: The risks, benefits, indications, potential complications, and alternatives were explained to the patient and informed consent obtained. Attending Staff: Nader Taveras DO Resident/APC: Not applicable Skin Prep: Chlorhexidine Anesthesia: 4 mL 1% lidocaine without epinephrine The identity of the patient was confirmed and a bedside time out was performed. Description of Procedure: After sterile prep and sterile drape utilizing standard sterile technique the superficial skin of the right internal jugular area was anesthetized. The target vessel was identified and entered with an 18- gauge needle. Dark venous blood return was noted. A guidewire was inserted through the needle and into the vessel. The needle was withdrawn and a skin chavez was made. A tissue dilator was advanced via Seldinger technique and removed. A double lumen catheter was inserted via Seldinger technique and the guidewire removed. All ports quinton and flushed easily. A Biopatch was placed, and the catheter was secured via nylon suture. A sterile dressing was then applied. Complications: None Estimated blood loss: Trace Patient tolerated the procedure well. Procedure Date: Noted Above Procedure: Procedural Ultrasound Indication: Central venous access Attending: Nader Taveras DO Resident/Physician Mortgage Assistant: Not applicable Artery visualized: Yes Vein visualized: Yes Compressible Vein: Yes Vein patent: Yes Guidewire or Short Catheter seen in vein prior to dilation: Yes Line confirmed in Vein with ultrasound: Yes Lung Sliding on side of attempt (if applicable): NA If no lung sliding or not obtained has CXR been ordered: Yes Impression: Successful central venous access placement Images obtained are saved for permanent record Coding
--- NOTE | 2019-08-11 16:13 | History & Physical Report ---
Date of Service August 11, 2019 Assessment & Plan (1) Acute kidney injury: Patient is here for acute kidney failure likely secondary to acute heart failure and cardio renal syndrome; Patient will require emergent dialysis will admit to ICU. Creatinine is 3.2 will hold off IV fluids and place patient on diuretics. will hold quin inhibitor Patient received calcium gluconate, insulin, Kayexalate, Lasix 160 mg IV and potassium improved to 6.4.; consulted Sustainable Design Coordinator and anthropology and archeology instructor (2) Stage 4 chronic kidney disease due to diabetes mellitus: GFR has been mainly in the 20 range. will continue to monitor (3) Diastolic CHF: Patient has acute diastolic heart failure. Patient is currently volume overloaded. Will place patient on dialysis (4) Hyperkalemia: Initially at 7, Paient had peaked t WAVES AND bradycardia. Received calcium gluconate, insulin, Kayexalate, Lasix 160 mg IV and potassium improved to 6.4. (5) Diabetes: Patient is placed on insulin drip initially. will monitor blood sugar (6) Obesity (BMI 30-39.9): Recommend life style changes, will return to this once patient is no longer critically ill (7) Bradycardia: Caused by hyperkalemia Received and calcium gluconate, insulin, Kayexalate, Lasix 160 mg IV.. HR improved from 30s to 60s range. will monitor DVT proph: heparin code status: full code History of Present Illness Chief Complaint: I can not pee Primary Care Provider: Marbella Gomez 54 yo male with PMHx of diastolic CHF, HTN, HLD, DM II with significant insulin resistance, obesity with BMI of 38.8, GERD, and WHIT on cpap HS. Patient reports that he was his usal state of health up until today. Though his spouse states that he has been mroe fatigued over the past week. He noticed to be very sluggish this morning, and SOb on exertion. This was accompanine by abdominal cramps, nausea. Patient went to work, but was only able to handle 2 hours there. He reports being compliant with his medicine. He does not weight himself on a regular basis but prior to coming to the hospital, he had a weight of 240, which is 20 pounds over his dry weight of 220. Patient will be admitted to the ICU for emergent hemodialysis as he has an elevated potassium of 7. Allergies Allergy/AdvReac Type Severity Reaction Status Date / Time amitriptyline AdvReac Unknown Verified 07/22/19 10:21 Home Medications Home Medications Medication Instructions Recorded Confirmed Type aspirin [Aspir-81] 81 mg PO QPM 08/02/18 08/11/19 History atorvastatin 80 mg PO QPM 08/02/18 08/11/19 History magnesium oxide 400 mg PO QPM 08/02/18 08/11/19 History metoprolol succinate 100 mg PO QPM 08/02/18 08/11/19 History omeprazole 20 mg PO QPM 08/02/18 08/11/19 History tramadol 50 mg PO TID PRN 08/02/18 08/11/19 History diltiazem HCl 180 mg PO QPM 02/20/19 08/11/19 History omega 4-bsx-xmf-fish oil [Fish Oil] 1 cap PO QPM 02/20/19 08/11/19 History insulin glargine (U- 100) 100 60 units SUBCUT QPM ml 06/27/19 08/11/19 History unit/mL subcutaneous solution lisinopril 20 mg tablet 10 mg PO QPM tab 06/27/19 08/11/19 History torsemide 20 mg tablet 80 mg PO DAILY tab 06/27/19 08/11/19 History insulin regular hum U-500 conc 90 units SUBCUT QPM 07/22/19 08/11/19 History Past Med/Surg History Medical History Diastolic CHF (Chronic) Proteinuria Chronic kidney disease (Chronic) Obesity (BMI 30-39.9) HLD (hyperlipidemia) Hyperkalemia Diabetes (Chronic) Hypertension (Chronic) Acute CHF Hyperglycemia Rib pain on left side (Acute) COSMO (acute kidney injury) Diastolic CHF, acute on chronic Dyspnea Hyponatremia Surgical History No pertinent past surgical history Cataract (Resolved) Family History Other Coronary heart disease Diabetes Hypertension Social History Preferred Language: Indonesian Communication Ability: Effective Telephone Advice Nurse Required: No Beliefs That Will Affect Care: None marital status: Current Living Situation: Spouse Current Living Situation Comment: Four children, grown & in good health current occupational status: employed 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 Former Feels Safe at Home: Yes Smoking Status: Former smoker Hx Alcohol Use: No Hx Substance Use: No Review of Systems Constitutional: + fatigue, + malaise and + weakness; no fever, no chills and no sweats Eyes: no blind spots, no discharge and no eye pain Ear, Nose, Mouth, Throat: no ear pain, no ear trauma and no tinnitus Respiratory: + chest congestion, + dyspnea and + dyspnea on exertion Cardiovascular: no chest pain Gastrointestinal: + bloating, + nausea and + cramping; no hematemesis Musculoskeletal: + swelling; no deformity Integumentary: no acne and no rash Physical Exam Physical Exam: Constitutional: + acute distress, + ill appearing and + overweight Eyes: PERRL, conjunctivae normal, anicteric sclerae ENMT: external ear and nose normal, oropharynx normal Ears: no hearing impairment Neck: trachea midline Respiratory: Auscultation: + crackles and + rales; no wheezes Cardiovascular: Rate/Rhythm: regular rate and regular rhythm Heart Sounds: normal S1 and normal S2 Extremities: + edema (trace b/l LE edema) Gastrointestinal (Abdomen): normal bowel sounds, soft, nontender, no hepatosplenomegaly Percussion/Palpation: abdomen nontender, no guarding and abdomen not rigid Musculoskeletal: Extremities: extremities normal to inspection , lower extremity edema noted Skin: no rashes, warm and dry Neurologic: moves all extremities and awake Psychiatric: A+Ox3, euthymic affect Results & Data Vital Signs (Past 12 Hours) Vital Signs Temp Pulse Pulse Resp BP BP Pulse Ox 08/11/19 15:30 63 23 134/55 L 97 08/11/19 15:15 37 L 14 101/47 L 98 08/11/19 15:13 37 L 12 97 08/11/19 15:00 37 L 17 109/54 L 94 08/11/19 14:45 38 L 14 98/45 L 91 08/11/19 14:31 38 L 13 93/50 L 88 L 08/11/19 14:30 38 L 13 86 L 08/11/19 14:25 44 L 98/47 L 90 08/11/19 14:16 37 L 18 91 08/11/19 14:15 38 L 16 98/60 L 89 L 08/11/19 14:14 37 L 19 111/60 92 08/11/19 14:00 33 L 17 89 L 08/11/19 13:58 37 L 18 91 08/11/19 13:51 32 L 14 99/42 L 96 08/11/19 13:49 34 L 16 85/39 L 95 08/11/19 13:45 30 L 18 96 08/11/19 13:32 87 L 08/11/19 13:31 45 L 101/50 L 90 08/11/19 13:29 93/49 L 08/11/19 13:24 93 08/11/19 13:06 36.8 C 36 L 26 H 103/40 L 103/40 L 94 08/11/19 13:05 30 L 24 91 Critical Care Time Critical Care Time: Yes Total Critical Care Time: 35 65 PG Care Time/CCT Total # of Minutes Spent Total Time Spent with Patient: Total time spent is greater than 50% in coordination of care (as documented) at patient's floor/unit and/or counseling patient: Critical Care Time: Yes Total Critical Care Time: 35 (1) Diastolic CHF Heart failure chronicity: acute on chronic Qualified Code(s): I50.33 - Acute on chronic diastolic (congestive) heart failure
--- NOTE | 2019-08-11 16:22 | Nephrology Consultation ---
Date of Consultation August 11, 2019 Assessment & Plan (1) Hyperkalemia: 54-year-old gentlemen with stage IIIB/4 chronic kidney disease, baseline creatinine variable from 1.8-3.5., hypertension, diabetes, chronic congestive heart failure with diastolic dysfunction, has been on high dose of diuretics admitted with atypical chest pain. Initial troponin and EKG was unremarkable. Chest x-ray was unremarkable. Found to have acute kidney injury and hyperkalemia, initial potassium was 7.5, was bradycardic with heart rate in 30s. Received atropine and heart rate improved. Received and calcium gluconate, insulin, Kayexalate, Lasix 160 mg IV and potassium improved to 6.4. Heart rate currently improved 60s to 65. --as Potassium still staying well above 6, will schedule for emergency hemodialysis for 2 hours with 2 K bath with minimum UF. --urinalysis stat --hold ROSCOE-inhibitor/ARB, NSAIDs --continue on insulin drip --if renal function stays stable and Potassium stay within normal range, may not need any more dialysis however will monitor renal function and electrolytes closely and check tomorrow for any further need for dialysis Will follow Thank you for allowing me to participate in your patient's care. It was a pleasure to see Reid (2) Acute kidney injury: (3) Stage 4 chronic kidney disease due to diabetes mellitus: (4) Hypertension: (5) Diabetes: History of Present Illness Reason for Consultation: COSMO, Hyperkalemia, volume, overload History of Present Illness Reid Swartz is a 54 year and manage his history is for hypertension, diabetes diastolic CHF and stage 3/4 chronic kidney disease. Admitted to the hospital with atypical chest pain, acute kidney injury, hyperkalemia and bradycardia. Nephrology consult was requested for further management and evaluation for emergency need for dialysis for hyperkalemia. Electronic medical records and labs and imaging are reviewed in detail during patient's visit. Inder was otherwise well until this morning when he went to work and suddenly experienced burning sensation in his chest and upper admit abdomen, shortness of Breath and chest pain presented to the ER for further evaluation. When he presented to mom and due to adhesive for baby aspirin but continued to have chest pain and shortness of breath. He was started on O2 via NC. EKG showed sinus rhythm with bradycardia heart rate was 30-35, received atropine and heart rate improved. Initial troponin was negative, chest x-ray showed cardiomegaly with no pulmonary vascular congestion. Lab showed acute kidney injury creatinine 3.2, hyperkalemia, initial potassium was 7.5. Was found to have blood sugar above 400, started on insulin drip and received calcium gluconate, albumin, Kayexalate and Lasix 160 mg IV stat. Repeat stat potassium showed potassium slowly started to improve initially to 6.9 down to 6.4. Creatinine staying around 3.1, BUN 44. Heart rate improved to 60s. Has baseline stage IIIB/4 chronic kidney disease most likely secondary to diabetic nephropathy, creatinine has been widely variable over last 1 year from 1.8-3.5. No recent UA available prior urinalysis in early 2017 was unremarkable. Reports taking NSAIDs occasionally 2 to 3 times a week. Has been on torsemide 80 mg daily for diastolic CHF. Has not been on any potassium supplement over last 2-3 months. Was on lisinopril 20 mg daily at home. He has been making urine. Family history significant for hypertension diabetes and coronary artery disease. Ex-smoker, quit smoking 5 years ago. Chest pain resolved and shortness of breath improved in feeling much better currently. Allergies Allergy/AdvReac Type Severity Reaction Status Date / Time amitriptyline AdvReac Unknown Verified 07/22/19 10:21 Home Medications Home Medications Medication Instructions Recorded Confirmed Type aspirin [Aspir-81] 81 mg PO QPM 08/02/18 08/11/19 History atorvastatin 80 mg PO QPM 08/02/18 08/11/19 History magnesium oxide 400 mg PO QPM 08/02/18 08/11/19 History metoprolol succinate 100 mg PO QPM 08/02/18 08/11/19 History omeprazole 20 mg PO QPM 08/02/18 08/11/19 History tramadol 50 mg PO TID PRN 08/02/18 08/11/19 History diltiazem HCl 180 mg PO QPM 02/20/19 08/11/19 History omega 0-ept-fnc-fish oil [Fish Oil] 1 cap PO QPM 02/20/19 08/11/19 History insulin glargine (U- 100) 100 60 units SUBCUT QPM ml 06/27/19 08/11/19 History unit/mL subcutaneous solution lisinopril 20 mg tablet 10 mg PO QPM tab 06/27/19 08/11/19 History torsemide 20 mg tablet 80 mg PO DAILY tab 06/27/19 08/11/19 History insulin regular hum U-500 conc 90 units SUBCUT QPM 07/22/19 08/11/19 History Patient History Medical History Diastolic CHF (Chronic) Proteinuria Chronic kidney disease (Chronic) Obesity (BMI 30-39.9) HLD (hyperlipidemia) Hyperkalemia Diabetes (Chronic) Hypertension (Chronic) Acute CHF Hyperglycemia Rib pain on left side (Acute) COSMO (acute kidney injury) Diastolic CHF, acute on chronic Dyspnea Hyponatremia Surgical History No pertinent past surgical history Cataract (Resolved) Family History Other Coronary heart disease Diabetes Hypertension Social History Preferred Language: Slovenian Communication Ability: Effective Grades 1 Through 5 Teacher Required: Yes Beliefs That Will Affect Care: None marital status: Current Living Situation: Spouse Current Living Situation Comment: Four children, grown & in good health current occupational status: employed 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 Feels Safe at Home: Yes Smoking Status: Former smoker Hx Alcohol Use: Yes (social use) Hx Substance Use: No Review of Systems Review of Systems: All systems reviewed & are unremarkable except as noted in HPI & below Physical Exam Constitutional: + acute distress, + ill appearing and + overweight Eyes: PERRL, conjunctivae normal, anicteric sclerae ENMT: external ear and nose normal, oropharynx normal Ears: no hearing impairment Neck: trachea midline Respiratory: Auscultation: + crackles and + rales; no wheezes Cardiovascular: Rate/Rhythm: regular rate and regular rhythm Heart Sounds: normal S1 and normal S2 Extremities: + edema (trace b/l LE edema) Gastrointestinal (Abdomen): normal bowel sounds, soft, nontender, no hepatosplenomegaly Percussion/Palpation: abdomen nontender, no guarding and abdomen not rigid Musculoskeletal: Extremities: extremities normal to inspection Gait: normal gait Skin: no rashes, warm and dry Neurologic: moves all extremities and awake Psychiatric: A+Ox3, euthymic affect Results & Data Vital Signs (Past 12 Hours) Vital Signs Temp Pulse Pulse Resp BP BP Pulse Ox 08/11/19 15:30 63 23 134/55 L 97 08/11/19 15:15 37 L 14 101/47 L 98 08/11/19 15:13 37 L 12 97 08/11/19 15:00 37 L 17 109/54 L 94 08/11/19 14:45 38 L 14 98/45 L 91 08/11/19 14:31 38 L 13 93/50 L 88 L 08/11/19 14:30 38 L 13 86 L 08/11/19 14:25 44 L 98/47 L 90 08/11/19 14:16 37 L 18 91 08/11/19 14:15 38 L 16 98/60 L 89 L 08/11/19 14:14 37 L 19 111/60 92 08/11/19 14:00 33 L 17 89 L 08/11/19 13:58 37 L 18 91 08/11/19 13:51 32 L 14 99/42 L 96 08/11/19 13:49 34 L 16 85/39 L 95 08/11/19 13:45 30 L 18 96 08/11/19 13:32 87 L 08/11/19 13:31 45 L 101/50 L 90 08/11/19 13:29 93/49 L 08/11/19 13:24 93 08/11/19 13:06 36.8 C 36 L 26 H 103/40 L 103/40 L 94 08/11/19 13:05 30 L 24 91
[2019-08-11] MEDS ORDERED: SODIUM CHLORIDE 0.9% 1000ML 1,000 ML IV PRN (16:27)
[2019-08-11 16:32] LABS: iSTAT Creatinine 3.1 mg/dl (0.6-1.3); iSTAT Hemoglobin 10.5 g/dl (14.0-18.0); iSTAT Ionized Calcium 1.1 mmol/l (1.12-1.32); iSTAT Potassium 6.4 mEq/L (3.3-5.0)
[2019-08-11] MEDS: INSULIN ASPART 100 UNITS/ML 3 ML PEN SC SCH ×2 (17:35→22:10)
[2019-08-11 17:47] LABS: Appearance Urine Clear (Clear); Bacteria Urine Automated Negative (Negative); Bilirubin Urine Negative (Negative); Blood Urine 1+ (Negative); Color Urine Yellow; Epithelial Cell Urine Auto 0-5 /lpf (0-5); Glucose Urine UA 1+ (Negative); Ketones Urine Negative (Negative); Leukocyte Esterase Urine Negative (Negative); Nitrite Urine Negative (Negative); Protein Urine Negative (Negative); RBC Urine Automated 0-4 /hpf (0-4); Specific Gravity Urine 1.012 (1.000-1.030); Urobilinogen Urine Negative (Negative); WBC Urine Automated 0 /hpf (0-5); pH Urine 6.5 (4.5-7.5)
--- NOTE | 2019-08-11 18:41 | XRay Report ---
SINGLE VIEW CHEST CLINICAL HISTORY: Central venous catheter placement. FINDINGS: An AP, portable, upright chest radiograph is compared to study performed earlier the same d ay 08/11/2019 [address] correlated with chest CT dated 01/17/2018. The examination is degraded by portable reid hnique and patient rotation. A right internal jugular central venous catheter has been placed. The ti p projects over the SVC. The heart is mildly enlarged. The pulmonary vasculature is noncongested. The re is mild bibasilar atelectasis. The lungs and pleural spaces are otherwise clear. No pneumothorax i s seen. The bony thorax is grossly intact. IMPRESSION: 1. Mild cardiac enlargement with no acute cardiopulmonary abnormality. 2. A right internal jugular central venous catheter has been placed. No pneumothorax is seen post pro cedure. Electronically signed by: Fernando Carver M.D. 08/11/2019 6:40 PM
[2019-08-11 19:20] LABS: BUN Creatinine Ratio 17.1 (10-20); Calcium 8.8 mg/dl (8.5-10.1); Creatinine Clr Calc Pharmacy 35.4 ml/min; Est GFR (African American) 28.1; Est GFR (Non-African American) 24.2; Magnesium 2.2 mg/dl (1.8-2.4); Phosphorus 3.7 mg/dl (2.5-4.9); Potassium 5.3 mmol/L (3.5-5.1)
[2019-08-11 21:10] LABS: Hepatitis B Surface Ab Quant < 3.10 mIU/mL (>or=10mIU/mL Immune); Hepatitis B Surface Antibody Non-Immune
[2019-08-11 21:21] LABS: Hepatitis B Surface Antigen Neg (Neg)
[2019-08-11] MEDS: ATORVASTATIN 40 MG TAB PO SCH (22:09)
[2019-08-11] MEDS: HEPARIN SOD 5,000 UNIT/0.5 ML VIAL SQ SCH (22:09)
[2019-08-11 23:24] LABS: Hematocrit (blood only) 31.4 % (42-52); Hemoglobin 10.3 g/dL (14.0-18.0)
[2019-08-11 23:42] LABS: BUN Creatinine Ratio 15.2 (10-20); Calcium 8.1 mg/dl (8.5-10.1); Creatinine Clr Calc Pharmacy 45.4 ml/min; Est GFR (African American) 38.4; Est GFR (Non-African American) 33.2; Magnesium 1.9 mg/dl (1.8-2.4); Phosphorus 3.3 mg/dl (2.5-4.9); Potassium 4.2 mmol/L (3.5-5.1)
[2019-08-11] MEDS ORDERED: CARBOHYDRATES FOR HYPOGLYCEMIA PO PRN (23:45)
[2019-08-11] MEDS ORDERED: DEXTROSE 50% 50 ML SYRINGE IV PRN (23:45)
[2019-08-11] MEDS ORDERED: GLUCOSE 10 TABS/TUBE PO PRN (23:45)
[2019-08-11] MEDS ORDERED: GLUCOSE 40% GEL 15 GM TUBE PO PRN (23:45)
[2019-08-11] MEDS ORDERED: GLUCAGON FOR INJ 1 MG VIAL IM PRN (23:45)
[2019-08-12 02:12] LABS: Appearance Urine Cloudy (Clear); Bacteria Urine Automated Negative (Negative); Bilirubin Urine Negative (Negative); Blood Urine 3+ (Negative); Color Urine Yellow; Epithelial Cell Urine Auto 0-5 /lpf (0-5); Glucose Urine UA Negative (Negative); Ketones Urine Negative (Negative); Leukocyte Esterase Urine 1+ (Negative); Nitrite Urine Negative (Negative); Protein Urine Trace (Negative); RBC Urine Automated >30 /hpf (0-4); Specific Gravity Urine 1.019 (1.000-1.030); Urobilinogen Urine Negative (Negative)
[2019-08-12 02:57] LABS: Hematocrit (blood only) 29.8 % (42-52); Hemoglobin 9.8 g/dL (14.0-18.0); Mean Corpuscular Hgb Conc 32.9 g/dL (32-36); Mean Corpuscular Volume 85.1 fL (80-100); Mean Platelet Volume 10.7 fL (7.4-10.4); Platelet Count 160 K/uL (130-400); RDW Coefficient of Variation 12.7 % (11.5-14.5); RDW Standard Deviation 38.8 fL (36.4-46.3); White Blood Count 9.93 K/uL (4.8-10.8)
[2019-08-12 03:16] LABS: BUN Creatinine Ratio 14.7 (10-20); Calcium 7.7 mg/dl (8.5-10.1); Creatinine Clr Calc Pharmacy 45.4 ml/min; Est GFR (African American) 38.4; Est GFR (Non-African American) 33.2; Magnesium 1.8 mg/dl (1.8-2.4); Phosphorus 3.6 mg/dl (2.5-4.9); Potassium 3.9 mmol/L (3.5-5.1)
[2019-08-12] MEDS ORDERED: PHARMACY GLYCEMIC MGMT CONSULT PRN (05:08)
[2019-08-12] MEDS: INSULIN GLARGINE SOLOSTAR 100 UNITS/ML 3 ML PEN SC ONE ×2 (05:29→05:33)
[2019-08-12] MEDS: HEPARIN SOD 5,000 UNIT/0.5 ML VIAL SQ SCH ×3 (05:39→21:32)
[2019-08-12] MEDS ORDERED: INSULIN GLARGINE SOLOSTAR 100 UNITS/ML 3 ML PEN SC ONE ×2 (05:45→10:00)
[2019-08-12 06:31] LABS: Estimated Average Glucose 295 mg/dl; Hemoglobin A1C 11.9 % (4.5-5.6)
[2019-08-12] MEDS: INSULIN ASPART 100 UNITS/ML 3 ML PEN SC SCH ×4 (08:41→21:31)
--- NOTE | 2019-08-12 09:54 | Critical Care Progress Note ---
Date of Service August 12, 2019 Assessment & Plan (1) Hyperkalemia: Reason Critically Ill: Symptomatic hyperkalemia with bradycardia and hypotension PLAN: Resp: Will continue with CPAP which patient has at home with support of 11. Continue with BiPAP as needed shortness of breath CV: Bradycardia, Hypotension: Resolved -Likely secondary to acute kidney injury and hyperkalemia Fluids/Renal: Acute kidney injury in the setting of chronic kidney diseasStatus post hemodialysis 08/11/2019 ID: Urine Showed RBCs but no bacteria and no nitrates. GI/Nutrition: Low-sodium diabetic diet Heme: DVT prophylaxis: Heparin 5000 3 times daily Endocrine: ICU hyperglycemia protocol Checking A1c: 11.9 - s/p insulin infusion - c/w home dose Lantus Vascular access: Peripheral IVs, right internal jugular temporary HD catheter Code Status: Full Plan to DG to medical floor. Plan as per Nephrology regarding HD. MIGUEL conrad (2) Acute kidney injury: (3) Stage 4 chronic kidney disease due to diabetes mellitus: (4) Bradycardia: (5) Acute on chronic renal failure: (6) Obesity (BMI 30-39.9): (7) WHIT (obstructive sleep apnea): (8) Poorly controlled diabetes mellitus: Subjective Patient seen and examined at bedside. No acute distress, no adverse events overnight. Patient had hemodialysis session yesterday. Patient denies any shortness of breath, no headache, no nausea, no vomiting, no chest pain. Eating appropriately. Review of Systems Review of Systems: All systems reviewed & are unremarkable except as noted in HPI & below Physical Exam Physical Exam: Constitutional: No acute distress HEENT: EOMI, PERRLA Respiratory system: Good air entry bilaterally, no wheeze, no rhonchi, no crackles CVS: S1-S2 positive, no murmurs or gallops Abdomen: Soft, nontender, nondistended, positive bowel sounds x4 Extremities: +2 pulses bilaterally radialis/ dorsalis pedis, +2 edema, no cyanos is Neuro: Awake alert oriented x3 Psych: Normal mood and affect G/U: Yes Conrad catheter Positive right Shiley catheter IJ Results & Data Vital Signs (Past 12 Hours) Vital Signs Temp Pulse Resp BP Pulse Ox 08/12/19 06:15 79 10 L 128/65 98 08/12/19 06:00 37.3 C 77 10 L 111/67 97 08/12/19 05:45 77 9 L 110/61 98 08/12/19 05:30 77 10 L 116/63 98 08/12/19 05:15 78 8 L 114/63 98 08/12/19 05:00 77 0 L 125/63 98 08/12/19 04:45 78 10 L 116/61 92 08/12/19 04:30 76 10 L 123/65 98 08/12/19 04:15 76 8 L 109/67 98 08/12/19 04:00 37 C 75 8 L 103/71 98 08/12/19 03:45 76 9 L 123/71 97 08/12/19 03:30 75 7 L 111/66 97 08/12/19 03:15 77 8 L 110/65 97 08/12/19 03:00 79 8 L 116/61 98 08/12/19 02:45 79 15 121/68 98 08/12/19 02:30 76 7 L 127/70 98 08/12/19 02:15 77 8 L 125/66 97 08/12/19 02:00 78 7 L 116/69 98 08/12/19 01:45 78 9 L 116/63 97 08/12/19 01:15 78 9 L 124/62 97 08/12/19 01:00 80 7 L 120/67 96 08/12/19 00:45 80 11 L 111/65 97 08/12/19 00:30 80 11 L 120/66 97 08/12/19 00:15 83 13 127/70 97 08/12/19 00:00 36.8 C 80 10 L 108/75 98 08/11/19 23:45 83 23 88/70 L 99 08/11/19 23:31 85 23 123/74 98 08/11/19 23:15 85 17 131/73 98 08/11/19 23:00 77 10 L 119/68 98 08/11/19 22:45 79 14 132/83 98 08/11/19 22:30 76 13 125/79 98 08/11/19 22:15 80 17 134/82 98 08/11/19 21:45 75 27 H 110/77 99 Laboratory Results 08/12/19 02:47 08/12/19 02:47 Diagnostic Findings Chest x-ray from yesterday reviewed. PG Care Time/CCT Total # of Minutes Spent Total Time Spent with Patient: Total time spent is greater than 50% in coordination of care (as documented) at patient's floor/unit and/or counseling patient: Critical Care Time: Yes Total Critical Care Time: 35 (1) Acute on chronic renal failure Acute renal failure type: unspecified Chronic kidney disease stage: unspecified stage Qualified Code(s): N17.9 - Acute kidney failure, unspecified; N18.9 - Chronic kidney disease, unspecified
[2019-08-12] MEDS ORDERED: DC IV INSULIN INFUSION 1 EA DEVI ONE (11:00)
--- NOTE | 2019-08-12 11:06 | Nephrology Progress Note ---
Date of Service August 12, 2019 Assessment & Plan (1) Hyperkalemia: -- Corrected following emergency HD last evening -- Electrolyte balance is acceptable this morning -- Recommend keeping temporary dialysis catheter in place today, monitor UO and kidney function. If stable tomorrow then catheter can be removed -- Keep Shell catheter in today to monitor UO (2) Stage 4 chronic kidney disease due to diabetes mellitus: -- Baseline creatinine 1.8 - 2.1 depending upon volume status -- CKD due to diabetic nephropathy and impaired renal perfusion related to dCHF (3) Hypertension: -- Managed w/ Lisinopril as outpatient due to diabetic nephropathy (4) Diabetes: -- Poor glycemic control in the past. -- Managed by [facility] (5) Diastolic CHF: -- Managed in the [facility] -- "Dry weight" has been ~ 230 lbs -- Has been on Torsemide 20 mg + Metolazone 5 mg daily as outpatient diuretic regimen Subjective Mr. Swartz was seen & examined in the ICU this morning. Plan of care was discussed w/ ICU staff. Mr. Swartz underwent emergency HD yesterday for correction of severe hyperkalemia and metabolic acidosis. He has a R IJ temporary dialysis catheter in place. He currently denies fever, angina or dyspnea. Review of Systems Constitutional: no fever Eyes: no problem reported Ear, Nose, Mouth, Throat: no problem reported Respiratory: no cough and no dyspnea Cardiovascular: + edema; no chest pain and no palpitations Gastrointestinal: no abdominal pain, no nausea, no vomiting and no diarrhea/loose stools Genitourinary: no dysuria, no urinary hesitancy and no hematuria Musculoskeletal: no back pain Integumentary: no rash Neurologic: no falls, no dizziness and no confusion Physical Exam Constitutional: + overweight; not in distress Eyes: PERRL, conjunctivae normal, anicteric sclerae ENMT: external ear and nose normal, oropharynx normal Neck: trachea midline, no thyromegaly R IJ temporary dialysis catheter w/ clean, dry dressing in place Respiratory: normal respiratory effort, lungs clear to auscultation Cardiovascular: Rate/Rhythm: regular rate and regular rhythm trace LE edema Gastrointestinal (Abdomen): normal bowel sounds, soft, nontender, no hepatosplenomegaly Musculoskeletal: Extremities: no cyanosis Skin: no rashes, warm and dry Neurologic: awake; not confused Results & Data Vital Signs (Past 12 Hours) Vital Signs Temp Pulse Resp BP Pulse Ox 08/12/19 06:15 79 10 L 128/65 98 08/12/19 06:00 37.3 C 77 10 L 111/67 97 08/12/19 05:45 77 9 L 110/61 98 08/12/19 05:30 77 10 L 116/63 98 08/12/19 05:15 78 8 L 114/63 98 08/12/19 05:00 77 0 L 125/63 98 08/12/19 04:45 78 10 L 116/61 92 08/12/19 04:30 76 10 L 123/65 98 08/12/19 04:15 76 8 L 109/67 98 08/12/19 04:00 37 C 75 8 L 103/71 98 08/12/19 03:45 76 9 L 123/71 97 08/12/19 03:30 75 7 L 111/66 97 08/12/19 03:15 77 8 L 110/65 97 08/12/19 03:00 79 8 L 116/61 98 08/12/19 02:45 79 15 121/68 98 08/12/19 02:30 76 7 L 127/70 98 08/12/19 02:15 77 8 L 125/66 97 08/12/19 02:00 78 7 L 116/69 98 08/12/19 01:45 78 9 L 116/63 97 08/12/19 01:15 78 9 L 124/62 97 08/12/19 01:00 80 7 L 120/67 96 08/12/19 00:45 80 11 L 111/65 97 08/12/19 00:30 80 11 L 120/66 97 08/12/19 00:15 83 13 127/70 97 08/12/19 00:00 36.8 C 80 10 L 108/75 98 08/11/19 23:45 83 23 88/70 L 99 08/11/19 23:31 85 23 123/74 98 08/11/19 23:15 85 17 131/73 98 08/11/19 23:00 77 10 L 119/68 98 Laboratory Results Laboratory Tests 08/12/19 08/12/19 08/12/19 01:47 02:47 02:47 WBC 9.93 Hgb 9.8 L Hct 29.8 L Plt Count 160 Sodium 137 Potassium 3.9 Chloride 97 L Carbon Dioxide 32 BUN 32 H Creatinine 2.19 H Urine Color Yellow Urine Appearance Cloudy A Urine pH 5.0 Ur Specific [place] 1.019 Urine Protein Trace H Urine Glucose (UA) Negative Urine Blood 3+ H Urine WBC (Auto) 5-10 H Urine RBC (Auto) >30 H U Hyaline Cast (Auto) 5-10 H U Epithel Cells (Auto) 0-5 PG Care Time/CCT Total # of Minutes Spent Total Time Spent with Patient: Total time spent is greater than 50% in coordination of care (as documented) at patient's floor/unit and/or counseling patient: Critical Care Time: Yes Total Critical Care Time: 40 (1) Diastolic CHF Heart failure chronicity: acute on chronic Qualified Code(s): I50.33 - Acute on chronic diastolic (congestive) heart failure
[2019-08-12 11:39] LABS: Albumin Level 3.1 gm/dl (3.4-5.0); BUN Creatinine Ratio 16.7 (10-20); Calcium 8.4 mg/dl (8.5-10.1); Creatinine Clr Calc Pharmacy 52.2 ml/min; Est GFR (African American) 45.3; Est GFR (Non-African American) 39.1; Phosphorus 3.3 mg/dl (2.5-4.9); Potassium 4.7 mmol/L (3.5-5.1)
[2019-08-12] MEDS: ACETAMINOPHEN 325 MG TAB PO PRN ×2 (12:15→18:02)
[2019-08-12 13:38] LABS: iSTAT Potassium 6.9 mEq/L (3.3-5.0)
[2019-08-12 13:39] LABS: iSTAT Hemoglobin 10.2 g/dl (14.0-18.0); iSTAT Ionized Calcium 1.12 mmol/l (1.12-1.32)
--- NOTE | 2019-08-12 14:49 | Pharmacy Report ---
Glycemic Control Consultation - Date of Service August 12, 2019 - Scope Scope: Glycemic Pharmacist consulted by Tony PURVIS on 08/12/19 for glycemic control and to write orders per [facility] inpatient glycemic control protocol - Objective Weight: 110.4 kg Accuchecks BSG (last 24hrs): 08/11/19 08/11/19 08/11/19 14:48 14:50 14:52 Glucose 466 H* POC Glucose 500 H* 509 H* POC Glucose (other) 08/11/19 08/11/19 08/11/19 14:57 15:34 15:58 Glucose POC Glucose 386 H* POC Glucose (other) 475 H* 395 H* 08/11/19 08/11/19 08/11/19 16:17 17:31 18:26 Glucose POC Glucose 278 H 319 H* POC Glucose (other) 356 H* 08/11/19 08/11/19 08/11/19 18:28 18:46 19:42 Glucose 226 H POC Glucose 249 H 178 H POC Glucose (other) 08/11/19 08/11/19 08/11/19 20:47 21:03 21:20 Glucose POC Glucose 131 H 107 H 118 H POC Glucose (other) 08/11/19 08/11/19 08/11/19 21:38 21:57 22:15 Glucose POC Glucose 130 H 132 H 140 H POC Glucose (other) 08/11/19 08/11/19 08/11/19 22:34 22:53 23:10 Glucose 149 H POC Glucose 147 H 138 H POC Glucose (other) 08/11/19 08/12/19 08/12/19 23:13 00:16 01:23 Glucose POC Glucose 162 H 146 H 156 H POC Glucose (other) 08/12/19 08/12/19 08/12/19 02:20 02:47 03:22 Glucose 160 H POC Glucose 163 H 165 H POC Glucose (other) 08/12/19 08/12/19 08/12/19 05:18 06:22 07:19 Glucose POC Glucose 138 H 138 H 181 H POC Glucose (other) 08/12/19 08/12/19 08/12/19 08:39 09:07 10:10 Glucose POC Glucose 137 H 155 H 174 H POC Glucose (other) 08/12/19 08/12/19 08/12/19 10:45 10:48 11:39 Glucose 174 H POC Glucose 181 H 181 H POC Glucose (other) Laboratory Data (last 24hrs): 08/11/19 08/11/19 08/11/19 14:52 18:46 23:10 Potassium 7.3 H* 5.3 H D 4.2 D Carbon Dioxide 26 29 30 Anion Gap 8.0 8.0 8.0 Creatinine 3.16 H 2.84 H D 2.19 H D Est Cr Clr Drug Dosing 31.6 35.4 45.4 Beta-Hydroxybutyric Acd 2.22 08/12/19 08/12/19 02:47 10:48 Potassium 3.9 4.7 D Carbon Dioxide 32 31 Anion Gap 8.0 6.0 Creatinine 2.19 H 1.91 H Est Cr Clr Drug Dosing 45.4 52.2 Beta-Hydroxybutyric Acd HbA1c: Hemoglobin A1c 11.9 % (4.5-5.6) H 08/12/19 02:47 - Recent Pertinent Medications Outpatient Anti-diabetic Regimen: * U-500 (uses pen) 90 units QDL and 50 units QDD * Lantus 60 units HS * Questionable compliance with above regimen based on patient interview and A1c * A1c = 11.9 % 08/12/19 - Assessment & Plan Assessment & Plan: ASSESSMENT: * Patient presented to the [facility] ED on 08/11 with chest tightness and shortness of breath * He was found to have COSMO with corresponding hyperkalemia (potassium now normalized) * Some concern for changing insulin requirements with resolution of COSMO and emergent HD yesterday. Will utilize Lantus scale this evening to provide additional basal insulin if needed. * PMH includes CHF, type 2 DM, obesity, CKD, hypertension, and hyperlipidemia * Patient started on insulin drip yesterday starting around 1500 and titrated off this morning with 75 units of Lantus * Per previous admission data, patient required large doses of insulin (daily doses > 200 units) in order to achieve glycemic control * Per interview with patient, compliance is certainly questionable. He stated the above regimen was correct, but that he doesn't take his insulin to work, so his lunch-time dose is usually given when he gets home from work (between 3-6 pm based on shift). He then takes the 50 units of U-500 a couple hours aft er that and sometimes with his bedtime Lantus. Patient also admits to drinking several bottles of iced tea per day, which he is not willing to eliminate at this time. 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 Will utilize SC basal/bolus dosing strategy with Lantus and Novolog. * Basal insulin * Lantus 75 units given this AM * Will utilize Lantus scale this evening: (BSG less than 120 mg/dL - 0 units, 120 mg/dl-180 mg/dL - 25 units, and greater than 180 mg/dL - 50 units) * Dose of 50 units would yield a total daily basal dose of 125 units (comparable to previous admission data from February 2019) * Bolus insulin - utilize aggressive CF/CR parameters (based on previous admission data) * NovoLog per scale ACHS or Q6hrs while NPO + 0200 check tonight * Goal Range: Low 120 mg/dL - High 160 mg/dL * Correction Factor: 5 mg/dL/unit * Nutritional / Prandial insulin per carb ratio of 1 unit per 2 grams CHO consumed * Please note that the plan above was derived based on current level of insulin resistance and hospital stress. These recommendations are appropriate for inpatient admission only. Plan of care upon discharge will need to be reassessed to avoid potential outpatient hypo/hyperglycemia. Thank you.
--- NOTE | 2019-08-12 17:45 | Hospitalist Progress Note ---
Date of Service August 12, 2019 Assessment & Plan (1) Hyperkalemia: Initially 7. Secondary to COSMO on CKD exacerbated due to lisinopril, hyperglycemia and metoprolol. No potassium supplementation. EKG changes with peaked T waves and bradycardia in setting of metoprolol and diltiazem. Received calcium gluconate, insulin, Kayexalate, Lasix 160 mg IV and potassium improved to 6.4. Continued improvement s/p emergent HD - continue to trend to determine continued need for dialysis. (2) Acute kidney injury: Cr increased > 50% from baseline in April although it has been trending up with labs in June. Since admission UO appears to be good (although I am unclear to this accuracy as no HD output appears to have been recorded). Unclear cause of COSMO as lack of pulmonary edema, recent BNPs and cardio O/P note suggests against dCHF and underperfusion as primary cause (weight increase noted to the contrary but would also be present with worsening CKD). No imaging for post-obstructive cause but only 100ml on bladder scan in ER. Monitor I&Os, daily weights and Cr but suspect if only cause is progression of diabetic nephropathy he will be left with dialysis. Appreciate nephrology recommendations. (3) Bradycardia: Resolved secondary to hyperkalemia in setting of metoprolol and diltiazem. Given improvement in HR and potassium ok to restart metoprolol to avoid rebound tachycardia but will defer restarting diltiazem at this time. Continue on telemetry (4) Stage 4 chronic kidney disease due to diabetes mellitus: No ACEi now or on d/c given severity of hyperkalemia Will defer restarting torsemide to nephrology (5) Anemia: Low normal MCV. Acute on chronic, no melena, suspect secondary to CKD. Iron studies in AM. (6) Diabetes: Appreciate pharmacy management now off insulin drip with glucose much better controlled. HbA1C 11.9. Pt reports poor compliance with diet and occasionally misses insulin doses as problem with storing insulin at work. Follows with [facility] in [place]. Discussed continuous glucose monitoring but he is unsure whether it is [facility]. (7) Elevated LFTs: Suspect liver hypoperfusion due to bradycardia Continue to trend (8) WHIT (obstructive sleep apnea): Pt can use own CPAP. (9) Obesity (BMI 30-39.9): Recommend life style changes, will return to this once patient is no longer critically ill (10) Diastolic CHF: No pulmonary edema therefore suspect hypervolemic status due to renal rather than diastolic heart failure. Last heart failure clinic note in June appears to agree with this therefore will defer future diuretic use to nephrology management. (11) DVT prophylaxis: heparin 5000IU Q8H Code - full Dispo - back to baseline. continued inpatient stay as unclear etiology for cosmo and unknown whether he will continue to need dialysis. Subjective Patient seen in the afternoon in room 212. He reports feeling back to his baseline. He denies any current chest pain, shortness of breath, vomiting, nausea, change in bowels, abdominal pain. Re-discussed HPI with the patient who reports quite a rapid deterioration over the course of a day with chest tightness, nausea and vomiting. In hindsight he has had decreasing urine output despite torsemide for the past 2-3 days and weight gain over the 2 weeks. On admission his WBC 13.08, UA on admission 1+ blood, 1+ glucose but otherwise clean. No urine/blood cultures appear to pending at this time. No PNA or pulmonary edema on CXR. Physical Exam Constitutional: + obese and + disheveled; no acute distress and no altered mental status Eyes: PERRL, conjunctivae normal, anicteric sclerae ENMT: external ear and nose normal, oropharynx normal Neck: right IJ line in place Respiratory: normal respiratory effort, lungs clear to auscultation Auscultation: no crackles, no rales, no rhonchi and no wheezes Cardiovascular: Rate/Rhythm: regular rate and regular rhythm Heart Sounds: no murmur Extremities: + edema (3+ to knees b/l) Gastrointestinal (Abdomen): normal bowel sounds, soft, nontender, no hepatosplenomegaly Musculoskeletal: no cyanosis or clubbing, extremities motor strength 5/5 Skin: seborrheic dermatitis present on eyebrows and face Neurologic: moves all extremities and awake Speech / Cognition: normal speech Motor/Sensory: no pronator drift and no sensory deficit Psychiatric: A+Ox3, euthymic affect Results & Data Vital Signs (Past 12 Hours) Vital Signs Temp Pulse Pulse Resp BP BP Pulse Ox 08/12/19 16:08 98.4 F 89 19 133/67 91 08/12/19 14:55 93 H 08/12/19 11:26 93 H 08/12/19 11:00 92 H 13 131/68 97 08/12/19 10:45 90 17 133/70 97 08/12/19 10:30 92 H 14 123/56 L 97 08/12/19 10:15 92 H 8 L 126/60 95 08/12/19 10:00 92 H 32 H 154/75 H 96 08/12/19 09:45 92 H 11 L 133/51 L 95 08/12/19 09:30 94 H 16 138/66 97 08/12/19 09:15 96 H 23 139/63 95 08/12/19 09:00 94 H 38 H 125/64 96 08/12/19 08:45 90 19 124/69 97 08/12/19 08:30 91 H 116/80 97 08/12/19 08:16 23 113/53 L 96 08/12/19 08:00 90 130/66 95 08/12/19 07:45 95 H 119/73 96 08/12/19 07:30 91 H 17 117/74 96 08/12/19 07:15 84 15 125/61 98 08/12/19 07:00 84 13 129/67 98 08/12/19 06:45 85 22 134/65 96 08/12/19 06:30 81 18 126/68 97 08/12/19 06:15 79 10 L 128/65 98 08/12/19 06:00 99.1 F 77 10 L 111/67 97 08/12/19 05:45 77 9 L 110/61 98 PG Care Time/CCT Total # of Minutes Spent Total Time Spent with Patient: Total time spent is greater than 50% in coordination of care (as documented) at patient's floor/unit and/or counseling patient: (1) Diastolic CHF Heart failure chronicity: acute on chronic Qualified Code(s): I50.33 - Acute on chronic diastolic (congestive) heart failure (2) Diabetes Diabetes mellitus complication status: with hyperglycemia Diabetes mellitus prison insulin use: with long term care pharmacist use Diabetes mellitus type: type 2 Qualified Code(s): E11.65 - Type 2 diabetes mellitus with hyperglycemia; 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
[2019-08-12] MEDS: PANTOprazole 40 MG TAB PO SCH (18:08)
[2019-08-12] MEDS ORDERED: INSULIN GLARGINE SOLOSTAR 100 UNITS/ML 3 ML PEN SC SCH (21:00)
[2019-08-12] MEDS: METOPROLOL SUCC 50MG EXT REL TAB PO SCH (21:32)
[2019-08-12] MEDS: ATORVASTATIN 40 MG TAB PO SCH (21:32)
[2019-08-13] MEDS: ACETAMINOPHEN 325 MG TAB PO PRN ×2 (01:49→10:12)
[2019-08-13] MEDS: INSULIN ASPART 100 UNITS/ML 3 ML PEN SC SCH ×5 (01:51→20:40)
[2019-08-13] MEDS ORDERED: INSULIN ASPART 100 UNITS/ML 3 ML PEN SC SCH (02:00)
[2019-08-13] MEDS: HEPARIN SOD 5,000 UNIT/0.5 ML VIAL SQ SCH ×3 (05:49→20:41)
[2019-08-13 05:53] LABS: Hematocrit (blood only) 31.9 % (42-52); Hemoglobin 10.5 g/dL (14.0-18.0); Mean Corpuscular Hgb Conc 32.9 g/dL (32-36); Mean Corpuscular Volume 85.1 fL (80-100); Mean Platelet Volume 10.7 fL (7.4-10.4); Platelet Count 161 K/uL (130-400); RDW Coefficient of Variation 12.4 % (11.5-14.5); RDW Standard Deviation 38.3 fL (36.4-46.3); Red Blood Count 3.75 M/uL (4.7-6.1); White Blood Count 6.79 K/uL (4.8-10.8)
[2019-08-13 06:26] LABS: Albumin Level 2.9 gm/dl (3.4-5.0); BUN Creatinine Ratio 18.8 (10-20); Calcium 8.7 mg/dl (8.5-10.1); Creatinine Clr Calc Pharmacy 76.1 ml/min; Est GFR (African American) 71.5; Est GFR (Non-African American) 61.7; Potassium 4.1 mmol/L (3.5-5.1)
[2019-08-13 06:33] LABS: Albumin Globulin Ratio 0.9 (0.9-2); Bilirubin,Total 0.6 mg/dl (0.2-1); Ferritin 233.6 ng/ml (8-388); Globulin 3.3 gm/dl (2.5-4.0); Total Protein 6.2 gm/dl (6.4-8.2)
[2019-08-13] MEDS: PANTOprazole 40 MG TAB PO SCH (08:21)
[2019-08-13] MEDS ORDERED: INSULIN GLARGINE 100 UNIT/ML VIAL SC ONE (08:30)
[2019-08-13] MEDS ORDERED: INSULIN GLARGINE SOLOSTAR 100 UNITS/ML 3 ML PEN SC ONE ×2 (08:30→21:00)
--- NOTE | 2019-08-13 09:59 | Nephrology Progress Note ---
Date of Service August 13, 2019 Assessment & Plan (1) Hyperkalemia: -- Corrected following emergency HD (2) Stage 4 chronic kidney disease due to diabetes mellitus: -- Baseline creatinine 1.8 - 2.1 depending upon volume status. CKD due to diabetic nephropathy and impaired renal perfusion related to dCHF -- COSMO resolved. Kidney function is now back to baseline. Volume status and electrolyte balance are acceptable -- Will remove both dialysis and urinary catheters today and monitor PRP and UO (3) Hypertension: -- Managed w/ Lisinopril as outpatient due to diabetic nephropathy (4) Diabetes: -- Poor glycemic control in the past. -- Managed by [facility] (5) Diastolic CHF: -- Managed in the [facility] -- "Dry weight" has been ~ 230 lbs -- Has been on Torsemide 20 mg + Metolazone 5 mg daily as outpatient diuretic regimen -- Currently diuresing on his own. Hold diuretic and monitor UO Subjective Mr. Swartz was seen & examined in the PCU this morning. He is breathing comfortably flat in bed on RA. He reports brisk UO and would like to have his urinary and dialysis catheters removed. Review of Systems Constitutional: no fever, no chills and no weakness Eyes: no worsening vision and no problem reported Ear, Nose, Mouth, Throat: no problem reported Respiratory: no cough and no dyspnea Cardiovascular: + edema; no chest pain and no palpitations Gastrointestinal: no abdominal pain, no nausea, no vomiting and no diarrhea/loose stools Genitourinary: no dysuria, no urinary hesitancy and no hematuria Musculoskeletal: no back pain Integumentary: no rash Neurologic: no falls, no dizziness and no confusion Physical Exam Constitutional: + overweight; not in distress Eyes: PERRL, conjunctivae normal, anicteric sclerae ENMT: external ear and nose normal, oropharynx normal Neck: trachea midline, no thyromegaly Respiratory: normal respiratory effort, lungs clear to auscultation Cardiovascular: Rate/Rhythm: regular rate and regular rhythm Gastrointestinal (Abdomen): normal bowel sounds, soft, nontender, no hepatosplenomegaly Musculoskeletal: Extremities: no cyanosis Skin: no rashes, warm and dry Neurologic: awake; not confused Results & Data Vital Signs (Past 12 Hours) Vital Signs Temp Pulse Pulse Resp BP Pulse Ox 08/13/19 07:44 60 08/13/19 03:17 36.6 C 80 20 134/87 94 08/13/19 00:17 37.0 C 78 18 155/55 H 92 Laboratory Results Laboratory Tests 08/13/19 08/13/19 05:39 05:39 WBC 6.79 Hgb 10.5 L Hct 31.9 L Plt Count 161 Sodium 137 Potassium 4.1 Chloride 102 Carbon Dioxide 30 BUN 25 H Creatinine 1.31 D Glucose 191 H Calcium 8.7 PG Care Time/CCT Total # of Minutes Spent Total Time Spent with Patient: Total time spent is greater than 50% in coordination of care (as documented) at patient's floor/unit and/or counseling patient: (1) Diabetes Diabetes mellitus type: type 2 Diabetes mellitus halfway insulin use: with halfway use Diabetes mellitus complication status: with hyperglycemia Qualified Code(s): E11.65 - Type 2 diabetes mellitus with hyperglycemia; Z79.4 - alf (current) use of insulin (2) Diastolic CHF Heart failure chronicity: acute on chronic Qualified Code(s): I50.33 - Acute on chronic diastolic (congestive) heart failure
[2019-08-13 10:25] LABS: Appearance Urine Clear (Clear); Bacteria Urine Automated Negative (Negative); Bilirubin Urine Negative (Negative); Blood Urine 3+ (Negative); Color Urine Yellow; Epithelial Cell Urine Auto >30 /lpf (0-5); Glucose Urine UA 3+ (Negative); Ketones Urine Negative (Negative); Leukocyte Esterase Urine 1+ (Negative); Nitrite Urine Negative (Negative); Protein Urine Negative (Negative); RBC Urine Automated >30 /hpf (0-4); Specific Gravity Urine 1.016 (1.000-1.030); Urobilinogen Urine Negative (Negative); WBC Urine Automated >30 /hpf (0-5)
[2019-08-13 10:51] LABS: Creatinine Urine Random 57.9 mg/dl; Protein Creatinine Ratio Urine 0.3 (0-0.2)
--- NOTE | 2019-08-13 11:59 | Procedure Note ---
Procedure Note Date of Service August 13, 2019 Note Procedure: Removal of right IJ dialysis catheter Narrative: Temporary right IJ dialysis catheter placed by Dr. Taveras in the ICU 08/11/[address] Alvarez this morning stating that dialysis was n longer needed and requesting removal of the right IJ catheter. Coags and platelets reviewed and with in normal range. Using clean technique, dressing was taken down and catheter found to be secure. There was no significant erythema or drainage at the catheter insertion site. The dressing was easily removed and the surrounding skin was cleansed with a sterile saline pad. There were two sutures easily visualized and they were easily removed in their entirety. The catheter was easily removed and inspected and found to have no apparent defects. Pressure was then placed over the right IJ for a total of five minutes. At the completion of this time frame, the area was examined and was free of evidence of hematoma or active bleeding. A sterile 4X4 placed placed over the site and secured with Tegaderm. Patient tolerated the procedure well There were no apparent complications with removal. Coding
--- NOTE | 2019-08-13 14:00 | Pharmacy Report ---
Pharmacy Glycemic Short Note 2 - Date of Service August 13, 2019 - Glycemic Short BSG Results (Last 24 hours): 08/12/19 08/12/19 08/13/19 16:38 20:50 01:47 Glucose POC Glucose 97 108 H 134 H 08/13/19 08/13/19 08/13/19 05:39 07:31 11:23 Glucose 191 H POC Glucose 198 H 209 H Outpatient Anti-diabetic Regimen: * U-500 (uses pen) 90 units QDL and 50 units QDD * Lantus 60 units HS * Questionable compliance with above regimen based on patient interview and A1c * A1c = 11.9 % 08/12/19 ASSESSMENT: * Insulin drip transitioned to basal/bolus effectively yesterday with BSG's of 97 and 108 mg/dL immediately after transition * BSG's increased gradually overnight last night 108 - 134 - 198 mg/dL. Lantus needs to be increased for AM fasting >180 mg/dL. * Previous admission data suggests ~125 units basal is appropriate but will not increase to that today 2nd a few BSG's below goal range yesterday * Per previous admission data, patient required large doses of insulin (daily doses > 200 units) in order to achieve glycemic control * Per previous pharmacist's interview with patient on 08/12 , compliance is certainly questionable. He stated the above regimen was correct, but that he doesn't take his insulin to work, so his lunch-time dose is usually given when he gets home from work (between 3-6 pm based on shift). He then takes the 50 units of U-500 a couple hours after that and sometimes with his bedtime Lantus. Patient also admits to drinking several bottles of iced tea per day, which he is not willing to eliminate at this time. PLAN FOR INPATIENT GLYCEMIC CONTROL: * Holding outpatient U-500 due to lack of confidence in the correctness of home doses in the interest of safety. Will utilize SC basal/bolus dosing strategy with Lantus and Novolog. * Basal insulin * Lantus 100 units given this AM * Will utilize Lantus scale this evening: (BSG less than 140 mg/dL - 0 units, 140 mg/dl-180 mg/dL - 10 units, and greater than 180 mg/dL - 20 units) * Bolus insulin - utilize aggressive CF/CR parameters (based on previous admission data) * NovoLog per scale ACHS or Q6hrs while NPO + 0200 check tonight * Goal Range: Low 110 mg/dL - High 140 mg/dL * Correction Factor: 5 mg/dL/unit * Nutritional / Prandial insulin per carb ratio of 1 unit per 2 grams CHO consumed
[2019-08-13] MEDS: METOPROLOL SUCC 50MG EXT REL TAB PO SCH (20:39)
[2019-08-13] MEDS: ATORVASTATIN 40 MG TAB PO SCH (20:39)
--- NOTE | 2019-08-13 21:27 | Hospitalist Progress Note ---
Date of Service August 13, 2019 Assessment & Plan (1) Hyperkalemia: Initially 7. Secondary to COSMO on CKD exacerbated due to lisinopril, hyperglycemia and metoprolol. No potassium supplementation. EKG changes with peaked T waves and bradycardia in setting of metoprolol and diltiazem. Received calcium gluconate, insulin, Kayexalate, Lasix 160 mg IV and potassium improved to 6.4. S/P x1 emergent HD for hyperkalemia. Urine output yesterday 1.38 ml/kg/hr (2) Acute kidney injury: Cr increased > 50% from baseline in April although it has been trending up with labs in June. Concern for Unclear cause of COSMO as lack of pulmonary edema, recent BNPs and cardio O/P note suggests against dCHF and underperfusion as primary cause (weight increase noted and patient has a chronic issue with hypervolemia related to poor diet and diabetes control). Will continue to hold torsemide to assess for continued UO. Monitor I&Os, daily weights and Cr. Appreciate nephrology recommendations. (3) Bradycardia: Resolved secondary to hyperkalemia in setting of metoprolol and diltiazem. Given improvement in HR and potassium ok to restart metoprolol to avoid rebound tachycardia but will defer restarting diltiazem at this time. Continue on telemetry. Does not appear to need diltiazem and can likely be d/c as a home med (4) Stage 4 chronic kidney disease due to diabetes mellitus: No ACEi now or on d/c given severity of hyperkalemia Will defer restarting torsemide to nephrology (5) Anemia: Low normal MCV. Acute on chronic, no melena, suspect secondary to CKD. Iron sats 23.5% (6) Diabetes: Appreciate glycemic pharmacy management with basal bolus insulin. HbA1C 11.9. Pt reports poor compliance with diet and occasionally misses insulin doses as problem with storing insulin at work. Follows with [facility] in [place]. Discussed continuous glucose monitoring but he is unsure whether it is [facility]. (7) Elevated LFTs: Suspect liver hypoperfusion due to bradycardia trending down as expected (8) WHIT (obstructive sleep apnea): Pt can use own CPAP. (9) Obesity (BMI 30-39.9): Discussed diabetic dietary changes (10) Diastolic CHF: No pulmonary edema therefore suspect hypervolemic status due to renal rather than diastolic heart failure. Last heart failure clinic note in June appears to agree with this therefore will defer future diuretic use to nephrology management. (11) DVT prophylaxis: heparin 5000IU Q8H Code - full Dispo - back to baseline. continued inpatient stay to assess renal stability and fluid status off diuretics. Subjective Patient reports he continues to be back at his baseline. No chest pain, shortness of breath, Review of Systems Review of Systems: All systems reviewed & are unremarkable except as noted in HPI & below Physical Exam Constitutional: + obese and + disheveled; no acute distress and no altered mental status Eyes: PERRL, conjunctivae normal, anicteric sclerae ENMT: external ear and nose normal, oropharynx normal Neck: trachea midline Respiratory: normal respiratory effort, lungs clear to auscultation Auscultation: no crackles, no rales, no rhonchi and no wheezes Cardiovascular: Rate/Rhythm: regular rate and regular rhythm Heart Sounds: no murmur Extremities: + edema (3+ to knees b/l) Gastrointestinal (Abdomen): normal bowel sounds, soft, nontender, no hepatosplenomegaly Musculoskeletal: no cyanosis or clubbing, extremities motor strength 5/5 Neurologic: moves all extremities and awake Speech / Cognition: normal speech Motor/Sensory: no pronator drift and no sensory deficit Psychiatric: A+Ox3, euthymic affect Results & Data Vital Signs (Past 12 Hours) Vital Signs Temp Pulse Pulse Resp BP BP Pulse Ox 08/13/19 18:54 98.2 F 67 19 160/77 H 95 08/13/19 16:00 66 08/13/19 15:34 98.2 F 67 20 155/80 H 96 08/13/19 12:08 98.2 F 62 18 152/80 H 91 PG Care Time/CCT Total # of Minutes Spent Total Time Spent with Patient: Total time spent is greater than 50% in coordination of care (as documented) at patient's floor/unit and/or counseling patient: (1) Diabetes Diabetes mellitus type: type 2 Diabetes mellitus [place] insulin use: with [facility] use Diabetes mellitus complication status: with hyperglycemia Qualified Code(s): E11.65 - Type 2 diabetes mellitus with hyperglycemia; Z79.4 - snf (current) use of insulin (2) Diastolic CHF Heart failure chronicity: acute on chronic Qualified Code(s): I50.33 - Acute on chronic diastolic (congestive) heart failure
[2019-08-14] MEDS ORDERED: INSULIN ASPART 100 UNITS/ML 3 ML PEN SC SCH (02:00)
[2019-08-14] MEDS: ACETAMINOPHEN 325 MG TAB PO PRN ×3 (02:10→16:52)
[2019-08-14] MEDS: HEPARIN SOD 5,000 UNIT/0.5 ML VIAL SQ SCH ×2 (06:05→13:51)
[2019-08-14 06:14] LABS: Hematocrit (blood only) 31.3 % (42-52); Hemoglobin 10.6 g/dL (14.0-18.0); Mean Corpuscular Hemoglobin 28.4 pg (25-34); Mean Corpuscular Hgb Conc 33.9 g/dL (32-36); Mean Corpuscular Volume 83.9 fL (80-100); Mean Platelet Volume 9.8 fL (7.4-10.4); Platelet Count 168 K/uL (130-400); RDW Coefficient of Variation 12.4 % (11.5-14.5); RDW Standard Deviation 37.7 fL (36.4-46.3); Red Blood Count 3.73 M/uL (4.7-6.1); White Blood Count 7.25 K/uL (4.8-10.8)
[2019-08-14 06:49] LABS: BUN Creatinine Ratio 14.5 (10-20); Creatinine Clr Calc Pharmacy 84.3 ml/min; Est GFR (Non-African American) 70.8; Magnesium 2.1 mg/dl (1.8-2.4); Phosphorus 3.3 mg/dl (2.5-4.9); Potassium 3.7 mmol/L (3.5-5.1)
[2019-08-14] MEDS: INSULIN ASPART 100 UNITS/ML 3 ML PEN SC SCH ×3 (07:45→16:54)
[2019-08-14] MEDS: PANTOprazole 40 MG TAB PO SCH (08:48)
[2019-08-14] MEDS ORDERED: INSULIN GLARGINE SOLOSTAR 100 UNITS/ML 3 ML PEN SC SCH (09:00)
--- NOTE | 2019-08-14 10:22 | Nephrology Progress Note ---
Date of Service August 14, 2019 Assessment & Plan (1) Hyperkalemia: -- Corrected following emergency HD (2) Stage 4 chronic kidney disease due to diabetes mellitus: -- Baseline creatinine 1.8 - 2.1 depending upon volume status. CKD due to diabetic nephropathy and impaired renal perfusion related to dCHF -- COSMO resolved. Kidney function is now back to baseline. Volume status and electrolyte balance are acceptable -- If discharge is anticipated please have Mr. Swartz follow up in the Nephrology office. He has a scheduled appointment for 08/30/19. Nonfasting blood and urine studies have been entered into EMR and should be completed at least 48 hours prior to OV (3) Hypertension: -- BP is currently acceptable. Continue to hold Lisinopril (4) Diabetes: -- Poor glycemic control in the past. -- Managed by [facility] (5) Diastolic CHF: -- Managed in the [facility] CHF clinic -- Current hospital dry weight is 238 lbs -- Discussed 1500 mg/day NaCl limited diet today -- Patient advised to weigh himself each morning and resume Torsemide 20 mg daily if > 5 lb weight gain or progressive LE swelling Subjective Mr. Swartz was seen & examined in the PCU this morning. His temporary dialysis catheter and conrad catheter were removed yesterday. He reports brisk UO. He is anxious to return home. Review of Systems Constitutional: no fever, no chills and no weakness Eyes: no worsening vision and no problem reported Ear, Nose, Mouth, Throat: no problem reported Respiratory: no cough and no dyspnea Cardiovascular: no chest pain, no palpitations and no edema Gastrointestinal: no abdominal pain, no nausea, no vomiting and no diarrhea/loose stools Genitourinary: no dysuria, no urinary hesitancy and no hematuria Musculoskeletal: no back pain Integumentary: no rash Neurologic: no falls, no dizziness and no confusion Physical Exam Constitutional: + overweight; not in distress Eyes: PERRL, conjunctivae normal, anicteric sclerae ENMT: external ear and nose normal, oropharynx normal Neck: trachea midline, no thyromegaly Respiratory: normal respiratory effort, lungs clear to auscultation Cardiovascular: Rate/Rhythm: regular rate and regular rhythm Gastrointestinal (Abdomen): normal bowel sounds, soft, nontender, no hepatosplenomegaly Musculoskeletal: Extremities: no cyanosis Skin: no rashes, warm and dry Neurologic: awake; not confused Results & Data Vital Signs (Past 12 Hours) Vital Signs Temp Pulse Pulse Resp BP BP Pulse Ox 08/14/19 07:42 64 08/14/19 06:56 36.8 C 60 22 149/65 H 93 08/14/19 03:15 36.9 C 62 20 137/40 L 94 08/13/19 23:55 36.8 C 60 18 146/58 H 94 Laboratory Results Laboratory Tests 08/14/19 08/14/19 05:59 05:59 WBC 7.25 Hgb 10.6 L Hct 31.3 L Plt Count 168 Sodium 139 Potassium 3.7 Chloride 105 Carbon Dioxide 28 BUN 17 Creatinine 1.17 Glucose 140 H PG Care Time/CCT Total # of Minutes Spent Total Time Spent with Patient: Total time spent is greater than 50% in coordination of care (as documented) at patient's floor/unit and/or counseling patient: (1) Diabetes Diabetes mellitus type: type 2 Diabetes mellitus supervisor intermediates insulin use: with intermediate use Diabetes mellitus complication status: with hyperglycemia Qualified Code(s): E11.65 - Type 2 diabetes mellitus with hyperglycemia; 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
[2019-08-14 12:25] LABS: iSTAT Potassium 6.9 mEq/L (3.3-5.0)
[2019-08-14 12:26] LABS: iSTAT Hemoglobin 10.2 g/dl (14.0-18.0); iSTAT Ionized Calcium 1.12 mmol/l (1.12-1.32)
--- NOTE | 2019-08-14 14:10 | Pharmacy Report ---
Pharmacy Glycemic Short Note 2 - Date of Service August 14, 2019 - Glycemic Short BSG Results (Last 24 hours): 08/11/19 08/13/19 08/13/19 15:49 15:37 15:39 Glucose POC Glucose 66 L* 58 L* POC Glucose (other) 395 H* 08/13/19 08/13/19 08/14/19 15:56 20:34 02:04 Glucose POC Glucose 71 220 H 152 H POC Glucose (other) 08/14/19 08/14/19 08/14/19 05:59 07:20 11:30 Glucose 140 H POC Glucose 165 H 170 H POC Glucose (other) Outpatient Anti-diabetic Regimen: * U-500 (uses pen) 90 units QDL and 50 units QDD * Lantus 60 units HS * Questionable compliance with above regimen based on patient interview and A1c * A1c = 11.9 % 08/12/19 ASSESSMENT: 08/14 * Patient received 215 units of insulin yesterday (120 units basal + 95 units bolus) * Fasting this morning 165, attempted to balance doses as majority of lantus in AM, will slightly reduce AM dose and increase scale for PM * Patient with hypoglycemic event prior to dinner yesterday, carb ratio and correction factor loosened at that time, will continue with this current carb ratio and correction factor, lunch BSG 170 acceptable may need to tighten slightly if continues to be above goal but continue for now given hypoglycemic event yesterday 08/13 * Insulin drip transitioned to basal/bolus effectively yesterday with BSG's of 97 and 108 mg/dL immediately after transition * BSG's increased gradually overnight last night 108 - 134 - 198 mg/dL. Lantus needs to be increased for AM fasting >180 mg/dL. * Previous admission data suggests ~125 units basal is appropriate but will not increase to that today 2nd a few BSG's below goal range yesterday * Per previous admission data, patient required large doses of insulin (daily doses > 200 units) in order to achieve glycemic control * Per previous pharmacist's interview with patient on 08/12 , compliance is certainly questionable. He stated the above regimen was correct, but that he doesn't take his insulin to work, so his lunch-time dose is usually given when he gets home from work (between 3-6 pm based on shift). He then takes the 50 units of U-500 a couple hours after that and sometimes with his bedtime Lantus. Patient also admits to drinking several bottles of iced tea per day, which he is not willing to eliminate at this time. PLAN FOR INPATIENT GLYCEMIC CONTROL: * Holding outpatient U-500 due to lack of confidence in the correctness of home doses in the interest of safety. Will utilize SC basal/bolus dosing strategy with Lantus and Novolog. * Basal insulin * Lantus 90 units given this AM * Will utilize Lantus scale this evening: (BSG less than 140 mg/dL - 30 units, 140 mg/dl and greater- 40 units) * Bolus insulin - * NovoLog per scale ACHS or Q6hrs while NPO + 0200 check tonight * Goal Range: Low 110 mg/dL - High 140 mg/dL * Correction Factor: 10 mg/dL/unit * Nutritional / Prandial insulin per carb ratio of 1 unit per 3 grams CHO consumed
[2019-08-14] MEDS ORDERED: INSULIN GLARGINE SOLOSTAR 100 UNITS/ML 3 ML PEN SC ONE (21:00)
--- NOTE | 2019-08-20 13:47 | Discharge Summary ---
Date of Service August 14, 2019 Admission HPI Per Admitting Provider 54 yo male with PMHx of diastolic CHF, HTN, HLD, DM II with significant insulin resistance, obesity with BMI of 38.8, GERD, and WHIT on cpap HS. Patient reports that he was his usal state of health up until today. Though his spouse states that he has been mroe fatigued over the past week. He noticed to be very sluggish this morning, and SOb on exertion. This was accompanine by abdominal cramps, nausea. Patient went to work, but was only able to handle 2 hours there. He reports being compliant with his medicine. He does not weight himself on a regular basis but prior to coming to the hospital, he had a weight of 240, which is 20 pounds over his dry weight of 220. Patient will be admitted to the ICU for emergent hemodialysis as he has an elevated potassium of 7. Admission Exam Per Admitting Provider Constitutional: + acute distress, + ill appearing and + overweight Eyes: PERRL, conjunctivae normal, anicteric sclerae ENMT: external ear and nose normal, oropharynx normal Ears: no hearing impairment Neck: trachea midline Respiratory: Auscultation: + crackles and + rales; no wheezes Cardiovascular: Rate/Rhythm: regular rate and regular rhythm Heart Sounds: normal S1 and normal S2 Extremities: + edema (trace b/l LE edema) Gastrointestinal (Abdomen): normal bowel sounds, soft, nontender, no hepatosplenomegaly Percussion/Palpation: abdomen nontender, no guarding and abdomen not rigid Musculoskeletal: Extremities: extremities normal to inspection , lower extremity edema noted Skin: no rashes, warm and dry Neurologic: moves all extremities and awake Psychiatric: A+Ox3, euthymic affect Principal Diagnosis Hyperkalemia Acute kidney injury Hyperglycemia Sinus bradycardia Hypotension Discharge Exam Constitutional + obese and + disheveled; no acute distress and no altered mental status Eyes PERRL, conjunctivae normal, anicteric sclerae ENMT external ear and nose normal, oropharynx normal Neck trachea midline Respiratory normal respiratory effort, lungs clear to auscultation Auscultation: no crackles, no rales, no rhonchi and no wheezes Cardiovascular Rate/Rhythm: regular rate and regular rhythm Heart Sounds: no murmur Extremities: + edema (2+ to knees b/l) Gastrointestinal (Abdomen) normal bowel sounds, soft, nontender, no hepatosplenomegaly Musculoskeletal no cyanosis or clubbing, extremities motor strength 5/5 Neurologic moves all extremities and awake Speech / Cognition: normal speech Motor/Sensory: no pronator drift and no sensory deficit Psychiatric A+Ox3, euthymic affect Discharge Data Allergies Allergy/AdvReac Type Severity Reaction Status Date / Time amitriptyline AdvReac Unknown Verified 07/22/19 10:21 Consultations 08/11/19 14:44 Consult Cyberathlete Stat Consult Nephrology Stat ED Decision to Admit Stat 08/11/19 15:30 Consult Case Management - Discharge Planning Routine Consult Cyberathlete Routine Ordered Studies 08/12/19 16:03 US point of care ultrasound Routine 08/12/19 17:05 US point of care ultrasound Routine Hospital Course (1) Hyperkalemia: Initially 7. Secondary to COSMO on CKD exacerbated due to lisinopril, hyperglycemia and metoprolol. Not on potassium supplementation. EKG changes with peaked T waves and bradycardia in setting of metoprolol and diltiazem. Received calcium gluconate, insulin, Kayexalate, Lasix 160 mg IV and potassium improved to 6.4. S/P x1 emergent HD for hyperkalemia. No re-occurence since emergent hemodialysis (2) Acute kidney injury: Cr increased > 50% from baseline in April although it has been trending up with labs in June. Unclear cause of COSMO as lack of pulmonary edema, recent BNPs and cardio O/P note suggests against dCHF and underperfusion as primary cause (weight increase noted and patient has a chronic issue with hypervolemia related to poor diet and diabetes control). Concern for intravascular depletion as cause as creatinine current much better than baseline now off torsemide with no pulmonary edema on exam. Continue to hold torsemide but will discharge with advice to restart 20mg if weight increases 3lb. His leg edema appear much improved. Appreciate nephrology recommendations. (3) Bradycardia: Resolved secondary to hyperkalemia in setting of metoprolol and diltiazem. Metoprolol only was re-introduced and appears more than adequately rate controlled without diltiazem. (4) Stage 4 chronic kidney disease due to diabetes mellitus: Prior diagnosis of this but now off torsemide and lisinopril his creatinine if better than baseline and eGFR > 60. Recommend close outpatient follow up with nephrology. (5) Anemia: Low normal MCV. Acute on chronic, no melena, suspect secondary to CKD/anemia of chronic disease Iron sats 23.5% (6) Diabetes: [facility] as outpatient regimen now working for him. Discussed dietary changes however lack of dentures and finances are a large barrier to this. Follows with [facility] in [place]. Recommend continuous glucose monitoring if this is paid for by his insurance. (7) Elevated LFTs: secondary to hypoperfusion in the setting of shock and bradycardia (8) WHIT (obstructive sleep apnea): CPAP at night (9) Obesity (BMI 30-39.9): Discussed diabetic dietary changes (10) Diastolic CHF: No pulmonary edema therefore suspect hypervolemic status due to renal rather than diastolic heart failure. And leg edema due to venous insufficiency much more than F Last heart failure clinic note in June appears to agree with this therefore will defer future diuretic use to nephrology management. Total Time Total Time Spent Total Time Spent (In Minutes): 55 Total Time Includes: Examination of the Patient, Discharge Planning, Medication Reconciliation and Communication With Other Providers Discharge Plan Discharge Items Patient Disposition: Home - Self-Care Reason For Visit: CRITICALLY ILL, SEVERE ACUTE KIDNEY FAILURE Discharge Diagnosis: Hyperkalemia Acute kidney injury Hyperglycemia Sinus bradycardia Hypotension Condition on Discharge: Good Goals: Reduction in salt and carbohydrate intake D[facility] to improve [facility] choices Activity: Resume your previous activity Non-emergency contact: Primary Care Provider Call non-emergency contact if: you have any medication questions and your symptoms worsen Follow-up/Referrals: Marbella Gomez PA-C [Primary Care Provider] - 08/23/19 10:00 am (Please, follow up at [facility] with Marbella Gomez PA-C on MondayAugust 23 at 10:00 am. *If you need to change this appointment, call the office at [phone].) Diet: Carb Consistent or DM2 and Low Sodium (2gm) Addtl Attending Provider Instructions: You were diagnosed with acute kidney injury suspect from over diuresis due to high glucose values and torsemide use. This lead to high potassium levels (in setting of lisinopril use) causing a build up of your metoprolol and diltiazem which lead to low heart rate and hypotension. You were treated with emergent hemodialysis and stopping torsemide, lisinopril and diltiazem. No adjustments to your insulin regimen have been made but recommend following up with your primary care provider and university administrative assistant regarding ongoing control for this. Pending Studies at Discharge: No Stand-Alone Forms: Call Back Authorization, [facility] Medications and DC Order Prescriptions: New insulin regular hum U-500 conc 500 unit/mL (3 mL) insulin pen See Rx Instructions .ROUTE .COMPLEX Qty: 3 RF: 0 Continued magnesium oxide 400 mg Capsule 400 mg PO QPM RF: 0 aspirin [Aspir-81] 81 mg Tablet,Delayed Release (Dr/Ec) 81 mg PO QPM RF: 0 atorvastatin 80 mg Tablet 80 mg PO QPM RF: 0 metoprolol succinate 50 mg Tablet Extended Release 24 Hr 100 mg PO QPM RF: 0 tramadol 50 mg Tablet 50 mg PO TID PRN (Reason: Pain) RF: 0 Lantus U-100 Insulin 100 unit/mL solution 60 units subcut QPM RF: 0 omeprazole 20 mg Capsule,Delayed Release(Dr/Ec) 20 mg PO QPM Qty: 0 RF: 0 omega 8-atr-wbs-fish oil [Fish Oil] 1,000 mg (120 mg-180 mg) Capsule 1 cap PO QPM RF: 0 Changed torsemide 20 mg tablet 20 mg PO DAILY PRN (Reason: Weight gain 5lb) Qty: 0 RF: 0 Discontinued insulin regular hum U-500 conc 90 units subcut QPM RF: 0 lisinopril 20 mg tablet 10 mg PO QPM RF: 0 diltiazem HCl 180 mg Capsule,Extended Release 24 Hr 180 mg PO QPM RF: 0 Discharge Orders: Discharge Order (Routine); Ordered 08/14/19 Ordered By: Tej Maria/Other Patient Handouts: Diabetes Mcc Complications, Diabetes Resources, Diabetes Type 2 Coping, Diabetes Healthy Meals, Diabetes Carbs, Diabetes Exercise Benefits, Diabetes Exercise Get Started, Diabetes Activity Tips, Diabetes Living Life, Diabetes Manage A1C Test Admission Data Admit Date/Time: 08/11/19 15:30 Attending Provider: Tej White Admit Provider: Naveen Fowler Primary Care Provider: Marbella Gomez Other Providers: Macho Taveras ; Crystal Rodriguez ; Tej Bliss Other Interventions: Discharge Summary Assessment (RN) Last Done: 08/14/19 18:04 DC Date/Time DO NOT enter until pt leaves facility: 08/14/19 18:55
== END 2019-08-14 18:55 | disposition home or self-care (01) | DRG 682 ==
LOC: ED 13:06 → SUATTDRO 15:30 → 1E 15:30 → 2E 08-12 11:21

== ENCOUNTER 2019-12-13 05:35 | Inpatient (IN) ==
--- NOTE | 2019-12-06 09:09 | PAT Medication Instructions ---
Medication Instructions Date of Service December 06, 2019 Home Medications Medication Instructions Recorded omeprazole 20 mg PO QPM #0 cap 08/14/19 torsemide 20 mg PO DAILY PRN #0 tab 08/14/19 oxycodone 5 mg PO Q4H PRN #15 tab 11/16/19 aspirin [Aspir-81] 81 mg PO QPM atorvastatin 80 mg PO QPM magnesium oxide 400 mg PO QPM metoprolol succinate 100 mg PO QPM tramadol 50 mg PO TID PRN omega 2-qnb-fln-fish oil [Fish Oil] 1 cap PO QPM omeprazole 20 mg PO QPM torsemide 20 mg PO DAILY PRN insulin glargine 100 unit/mL subcutaneous solution 50 units SUBCUT QPM insulin regular hum U-500 conc 1 unit SUBCUT UD lisinopril 10 mg tablet 10 mg PO QAM oxycodone 5 mg PO Q4H PRN cholecalciferol (vitamin D3) 25 mcg (1,000 unit) chewable tablet 2,000 units PO DAILY cyanocobalamin (vitamin B-12) 1,000 mcg tablet 1,000 mcg PO DAILY ASK your surgeon for instructions aspirin [Aspir-81] 81 mg PO QPM STOP taking 2 weeks before surgery If surgery is within 2 weeks, stop taking as soon as possible. omega 1-lka-ott-fish oil [Fish Oil] 1 cap PO QPM Take morning of surgery With a small sip of water, OTHERWISE NOTHING TO EAT OR DRINK AFTER MIDNIGHT: gabapentin 600mg PO BID Take evening before surgery atorvastatin 80 mg PO QPM gabapentin 600mg PO BID magnesium oxide 400 mg PO QPM metoprolol succinate 100 mg PO QPM tramadol 50 mg PO TID PRN (if needed) omeprazole 20 mg PO QPM torsemide 20 mg PO DAILY PRN (if needed) insulin glargine 100 unit/mL subcutaneous solution 50 units SUBCUT QPM insulin regular hum U-500 conc 1 unit SUBCUT UD lisinopril 10 mg tablet 10 mg PO QPM oxycodone 5 mg PO Q4H PRN (if needed) cholecalciferol (vitamin D3) 25 mcg (1,000 unit) chewable tablet 2,000 units PO DAILY cyanocobalamin (vitamin B-12) 1,000 mcg tablet 1,000 mcg PO DAILY Other Notes If you have any questions please call us at [phone] or [phone] or [phone] or [phone]
--- NOTE | 2019-12-06 09:20 | Anesthesiology Consultation ---
Date of Service December 06, 2019 Assessment & Plan (1) Encounter for pre-operative examination: Cardiology clearance 11/19/2019 (Dr. Paulino): "Patient presents for preoperative cardiac evaluation prior to undergoing left ankle surgery on 11/22/19 for repair of a fracture. Prior to his injury was active without limiting cardiac symptoms. No history of coronary artery disease. On exam appears compensated from a heart failure standpoint. Patient is an acceptable risk to proceed with surgery without additional cardiac testing/intervention." Nephrology clearance 12/06/2019 (Dr. Rodriguez): Reviewed patient's chronic conditions as noted in HPI. Reviewed patient's social and surgical history. Reviewed most recent labs. Discussed the importance of reducing simple carbohydrate and sodium intake. For patient's diabetes type 2, uncontrolled- patient states that he has been monitoring his blood sugars better over the last few months, so will check an A1c today. [id number] 10.1 12/07/2019. Blood pressure is stable today of 109/64, pulse 67, O2 sats 97%. Discussed the importance of close follow up post surgery, with chronic condit ions. Patient is at acceptable risk to have left ankle repair. PCP Clearance 12/09/19: Overall chronic conditions better controlled more recently than about 4 to 6 months ago. The is moderate to high risk patient for low to moderate risk procedure. CHECK BSG AM DOS Chart Review Chart Review: Acceptable Risk for Surgery and Patient seen in Pre Admission Testing Teaching & Discussion Instructed NPO after midnight before surgery, except medications with 15 cc of water. Medication instructions provided according to the PAT guidelines. History Surgery Operation Date: 12/13/19 13:10 Proposed Procedures p Left Ankle Bimalleolar Fracture Open Reduction Intenal Fixation - Iván Bernardo DO Height/Weight Height: 5 ft 6 in Weight: 113 kg Allergies Allergy/AdvReac Type Severity Reaction Status Date / Time amitriptyline AdvReac Mild shakey Verified 12/06/19 10:25 Medications Home Medications Medication Instructions Recorded Confirmed Last Taken aspirin [Aspir-81] 81 mg PO QPM 08/02/18 12/06/19 02/28/19 atorvastatin 80 mg PO QPM 08/02/18 12/06/19 02/28/19 magnesium oxide 400 mg PO QPM 08/02/18 12/06/19 02/28/19 metoprolol succinate 100 mg PO QPM 08/02/18 12/06/19 02/28/19 tramadol 50 mg PO TID PRN 08/02/18 12/06/19 02/19/19 omega 2-zcz-gre-fish oil [Fish Oil] 1 cap PO QPM 02/20/19 12/06/19 02/28/19 omeprazole 20 mg PO QPM #0 cap 08/14/19 12/06/19 02/28/19 torsemide 20 mg PO DAILY PRN #0 tab 08/14/19 12/06/19 Unknown insulin glargine 100 unit/mL 50 units SUBCUT QPM ml 08/30/19 12/06/19 Unknown subcutaneous solution insulin regular hum U-500 conc 1 unit SUBCUT UD ml 08/30/19 12/06/19 Unknown lisinopril 10 mg tablet 10 mg PO QAM 11/01/19 12/06/19 Unknown oxycodone 5 mg PO Q4H PRN #15 tab 11/16/19 12/06/19 Unknown cholecalciferol (vitamin D3) 25 2,000 units PO DAILY tab 11/19/19 12/06/19 Unknown mcg (1,000 unit) chewable tablet cyanocobalamin (vitamin B-12) 1,000 mcg PO DAILY tab 11/19/19 12/06/19 Unknown 1,000 mcg tablet gabapentin 12/06/19 12/06/19 Unknown Past Medical History Medical History COSMO (acute kidney injury) (Resolved) Hospitalized 07/2019 at [facility] for this and hyperkalemia (K+ >7)with bradycardi a. Required emergent dialysis. Chronic kidney disease (Chronic) Stage IIIB/4 chronic kidney disease, baseline creatinine variable from 1.8- 3.5 Wide fluctuation based upon volume status and diuretic use. Following closely with nephrology. Diabetes (Chronic) Diastolic CHF (Resolved) Previously noted in history, but heart failure clinic note from 06/2019 states volume overload not cardiac related. Displaced bimalleolar fracture of left ankle Dyslipidemia (Chronic) Dyspnea GERD (gastroesophageal reflux disease) HLD (hyperlipidemia) Hyperkalemia Patient has been seen in ED twice last year for issues r/t this; some noncompliance issues with medications per record review; patient is following closely with nephrology. Hypertension (Chronic) Hypertension (Chronic) Osteoarthritis Sleep apnea cpap Exercise / Class Metabolic Activity III < 4 Walking/Shop/Light housework (Limited by sciatica and does not have stairs at home or work; ambulates on one level with no SOB or chest pain but gets "tired") Past Family History Family History Other Coronary heart disease Diabetes Hypertension Past Surgical History Surgical History History of tonsillectomy and adenoidectomy Hx of cataract surgery right and left Hx of colonoscopy [place] teeth extracted Past Anesthesia History No Hx of Anesthesia Complications and No Family Hx of Anesthesia Complications History of PONV No Hx of PONV and No Hx of Motion Sickness Social History Smoking Status: Former smoker Do You Dip or Chew Tobacco: No Smoking End Date: QUIT 5 YRS AGO Hx Alcohol Use: No (very very rare) Hx Substance Use: No substance use type: does not use Review of Systems Pt denies any recent chest pain, shortness of breath, palpitations, fever or URI. +dry cough currently Physical Exam Vital Signs BP: 115/51 P: 65bpm SPO2: 98% RA T: 98.2 F R: 16 ENMT Mouth: + edentulous Thyromental Distance: < 3.5 Finger Breadths (3) Mallampati Class: II Neck + short neck, + thick neck and + facial hair (patient amenable to shaving, will keep short mustache) Respiratory normal respiratory effort Auscultation: lungs clear to auscultation bilaterally Cardiovascular Rate/Rhythm: regular rate and regular rhythm Heart Sounds: no murmur Extremities: + edema (minimal R ankle, L ankle in boot) Testing Laboratory Results 12/06/19 09:42 12/06/19 09:42 Hemoglobin A1c 10.1 % (4.5-5.6) H 12/06/19 09:42 Urine Color Yellow 12/06/19 09:42 Urine Appearance Clear (Clear) 12/06/19 09:42 Urine pH 5.0 (4.5-7.5) 12/06/19 09:42 Ur Specific [place] 1.011 (1.000-1.030) 12/06/19 09:42 Urine Protein Negative (Negative) 12/06/19 09:42 Urine Glucose (UA) Negative (Negative) 12/06/19 09:42 Urine Ketones Negative (Negative) 12/06/19 09:42 Urine Nitrite Negative (Negative) 12/06/19 09:42 Ur Leukocyte Esterase Negative (Negative) 12/06/19 09:42 12/06/19 09:42 Urine Culture - Final Urine,Clean Catch No growth - less than 1,000 colonies/mL. Surgeons office flagged regarding very elevated A1c. Anemia is around baseline. Cr 1.88 -- nephrology reviewed at clearance. Electrocardiogram Date: 12/06/19 Findings: + NSR @ (64) Left axis deviation. Chest X-Ray Date: 12/06/19 Findings: + NAD Echocardiogram Date: 02/21/19 EF: 55-60% Normal left ventricular size and systolic function. No regional wall motion abnormalities. Mild concentric LVH. No significant diastolic dysfunction. No significant valvular abnormalities visualized. Technically difficult study, enhanced with IV Definity.
--- NOTE | 2019-12-06 10:10 | XRay Report ---
XR chest Pre-admission PA/Lat CLINICAL HISTORY: PAT preoperative evaluation COMPARISON STUDY: 08/11/2019 FINDINGS: The bones soft tissues and hemidiaphragms are normal. The cardiomediastinal silhouette is n ormal. The lungs are clear. The pulmonary vasculature is normal. IMPRESSION: Negative chest. ACT 112: Negative or not required by law. The above report was generated using voice recognition software. It may contain grammatical, syntax or spelling errors. Electronically signed by: Palomo Linares M.D. 12/06/2019 10:08 AM
[2019-12-06 11:12] LABS: Appearance Urine Clear (Clear); Basophils # (auto) 0.03 K/uL (0-0.2); Basophils % (auto) 0.5 %; Bilirubin Urine Negative (Negative); Blood Urine Negative (Negative); Color Urine Yellow; Eosinophils # (auto) 0.33 K/uL (0-0.5); Eosinophils % (auto) 5.7 %; Glucose Urine UA Negative (Negative); Hematocrit (blood only) 33.7 % (42-52); Hemoglobin 11.2 g/dL (14.0-18.0); Immature Granulocytes # (auto) 0.01 K/uL (0.00-0.02); Immature Granulocytes % (auto) 0.2 %; Ketones Urine Negative (Negative); Leukocyte Esterase Urine Negative (Negative); Lymphocytes # (auto) 2.85 K/uL (1.2-3.4); Lymphocytes % (auto) 49.2 %; Mean Corpuscular Hemoglobin 28.1 pg (25-34); Mean Corpuscular Hgb Conc 33.2 g/dL (32-36); Mean Corpuscular Volume 84.7 fL (80-100); Mean Platelet Volume 10.4 fL (7.4-10.4); Monocytes # (auto) 0.54 K/uL (0.11-0.59); Monocytes % (auto) 9.3 %; Neutrophils # (auto) 2.03 K/uL (1.4-6.5); Neutrophils % (auto) 35.1 %; Nitrite Urine Negative (Negative); Platelet Count 230 K/uL (130-400); Protein Urine Negative (Negative); RDW Coefficient of Variation 13.5 % (11.5-14.5); RDW Standard Deviation 41.5 fL (36.4-46.3); Red Blood Count 3.98 M/uL (4.7-6.1); Specific Gravity Urine 1.011 (1.000-1.030); Urobilinogen Urine Negative (Negative); White Blood Count 5.79 K/uL (4.8-10.8)
[2019-12-06 11:42] LABS: Calcium 8.4 mg/dl (8.5-10.1); Creatinine Clr Calc Pharmacy 53.7 ml/min; Est GFR (African American) 46.2; Est GFR (Non-African American) 39.9; Potassium 4.3 mmol/L (3.5-5.1)
--- NOTE | 2019-12-07 06:16 | Electrocardiogram Report ---
Test Reason : Blood Pressure : / mmHG Vent. Rate : 064 BPM Atrial Rate : 064 BPM P-R Int : 176 ms QRS Dur : 092 ms QT Int : 406 ms P-R-T Axes : 052 -41 048 degrees QTc Int : 418 ms Normal sinus rhythm Left axis deviation Abnormal ECG When compared with ECG of 11-AUG-2019 14:15, Premature supraventricular complexes are no longer Present ME interval has decreased QRS axis Shifted left Confirmed by Andre Almanzar ([id number]) on 12/07/2019 6:15:56 AM Referred By: Iván Bernardo Confirmed By:Andre Almanzar
[2019-12-07 14:14] LABS: Estimated Average Glucose 243 mg/dl; Hemoglobin A1C 10.1 % (4.5-5.6)
--- NOTE | 2019-12-11 14:29 | History & Physical Report ---
Date of Service December 11, 2019 Assessment & Plan (1) Displaced bimalleolar fracture of left ankle: Schedule Left Ankle Bimalleolar Fracture Open Reduction Internal Fixation for 12.13.2019. All potential risks, benefits, complications, alternatives, and rehab have been discussed with the patient and he wishes to proceed. Will restart ASA 81 mg daily for DVT prophylaxis post op. History of Present Illness Chief Complaint: left ankle pain Primary Care Provider: Marbella Gomez This is a patient who sustained a left ankle fracture ~3-4 weeks ago. He was initially treated conservatively for a bimalleolar ankle fx. However, after 2-3 weeks, it was noted that the medial malleolus had shifted and the lateral malleolus was mildly displaced. He is now being set up for surgical management. Allergies Allergy/AdvReac Type Severity Reaction Status Date / Time amitriptyline AdvReac Mild shakey Verified 12/06/19 10:25 Home Medications Home Medications Medication Instructions Recorded Confirmed Type aspirin [Aspir-81] 81 mg PO QPM 08/02/18 12/06/19 History atorvastatin 80 mg PO QPM 08/02/18 12/06/19 History magnesium oxide 400 mg PO QPM 08/02/18 12/06/19 History metoprolol succinate 100 mg PO QPM 08/02/18 12/06/19 History tramadol 50 mg PO TID PRN 08/02/18 12/06/19 History omega 9-jyp-eaw-fish oil [Fish Oil] 1 cap PO QPM 02/20/19 12/06/19 History omeprazole 20 mg PO QPM #0 cap 08/14/19 12/06/19 Rx torsemide 20 mg PO DAILY PRN #0 tab 08/14/19 12/06/19 Rx insulin glargine 100 unit/mL 50 units SUBCUT QPM ml 08/30/19 12/06/19 History subcutaneous solution insulin regular hum U-500 conc 1 unit SUBCUT UD ml 08/30/19 12/06/19 History lisinopril 10 mg tablet 10 mg PO QAM 11/01/19 12/06/19 History oxycodone 5 mg PO Q4H PRN #15 tab 11/16/19 12/06/19 Rx cholecalciferol (vitamin D3) 25 2,000 units PO DAILY tab 11/19/19 12/06/19 History mcg (1,000 unit) chewable tablet cyanocobalamin (vitamin B-12) 1,000 mcg PO DAILY tab 11/19/19 12/06/19 History 1,000 mcg tablet gabapentin 12/06/19 12/06/19 History Past Med/Surg History Medical History COSMO (acute kidney injury) (Resolved) Hospitalized 07/2019 at [facility] for this and hyperkalemia (K+ >7)with bradycardia. Required emergent dialysis. Chronic kidney disease (Chronic) Stage IIIB/4 chronic kidney disease, baseline creatinine variable from 1.8- 3.5 Wide fluctuation based upon volume status and diuretic use. Following closely with nephrology. Diabetes (Chronic) Diastolic CHF (Resolved) Previously noted in history, but heart failure clinic note from 06/2019 states volume overload not cardiac related. Displaced bimalleolar fracture of left ankle Dyslipidemia (Chronic) Dyspnea GERD (gastroesophageal reflux disease) HLD (hyperlipidemia) Hyperkalemia Patient has been seen in ED twice last year for issues r/t this; some noncompliance issues with medications per record review; patient is following closely with nephrology. 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 Former Feels Safe at Home: Yes Smoking Status: Former smoker Second Hand Exposure: No ; Hx Alcohol Use: No (very very rare) Hx Substance Use: No Physical Exam Constitutional: well developed and well nourished; no acute distress ENMT: external ear and nose normal, oropharynx normal Neck: trachea midline, no thyromegaly Respiratory: normal respiratory effort, lungs clear to auscultation Cardiovascular: Rate/Rhythm: regular rate and regular rhythm Gastrointestinal (Abdomen): normal bowel sounds, soft, nontender, no hepatosplenomegaly Musculoskeletal: Ankle: + limited ROM of ankle (left ankle secondary to fx and pain) and + joint line tenderness (ankle) (left medial and lateral malleoli); no deformity, no skin erythema and no ecchymosis Skin: no rashes, warm and dry Neurologic: normal touch/pain/proprioception Psychiatric: A+Ox3, euthymic affect Lymphatic: no cervical or axillary lymphadenopathy
[2019-12-13] MEDS ORDERED: CEFAZOLIN 2000MG 2,000 MG/15 ML SYR IV SCH (06:00)
[2019-12-13] MEDS ORDERED: LR 15ML/HR IV SCH (06:00)
[2019-12-13] MEDS ORDERED: ROPIVACAINE 0.5% 5 MG/ML 30 ML VIAL ONE (06:36)
[2019-12-13] MEDS ORDERED: ONDANSETRON INJ 2 MG/ML 2 ML VIAL IV PRN ×2 (06:52→11:04)
[2019-12-13] MEDS ORDERED: fentaNYL citrate 100 MCG/2 ML VIAL IV PRN (06:52)
[2019-12-13] MEDS ORDERED: ATROPINE SULFATE 0.1 MG/ML 10ML SYR IV PRN (06:52)
[2019-12-13] MEDS ORDERED: ePHEDrine sulfate 50 MG/ML AMP IV PRN (06:52)
[2019-12-13] MEDS ORDERED: MIDAZOLAM HCL 1 MG/ML 2ML VIAL ONE (07:00)
[2019-12-13] MEDS ORDERED: PROPOFOL IV EMULSION 10 MG/ML 20 ML VIAL IV ONE (07:00)
[2019-12-13] MEDS ORDERED: LIDOCAINE HCL 2% 2 ML VIAL/AMP(20MG/ML) INFIL ONE (07:00)
[2019-12-13] MEDS ORDERED: ONDANSETRON INJ 2 MG/ML 2 ML VIAL ONE (07:00)
[2019-12-13] MEDS ORDERED: fentaNYL citrate 100 MCG/2 ML VIAL ONE (07:01)
--- NOTE | 2019-12-13 07:29 | History & Physical Bridge Note ---
Date of Service December 13, 2019 History & Physical Bridge Note I have examined the patient, reviewed the History & Physical and in the interval since the performance of the History & Physical I have noted the following changes of clinical significance: no changes noted
[2019-12-13] MEDS ORDERED: BACITRACIN INJ 50,000 UNIT VIAL ONE (07:34)
--- NOTE | 2019-12-13 09:29 | Post Operative Brief Note ---
Immediate Post Op Note v1 Date of Surgery December 13, 2019 Pre & Post Diagnosis Operation Date: 12/13/19 07:30 Pre-Op Diagnosis: Displaced Bimalleolar Fracture Left Ankle Lower Leg Post-Op Diagnosis: Displaced Bimalleolar Fracture Left Ankle Lower Leg I identified the patient and participated in the time-out.: Yes Procedure Operation Date: 12/13/19 07:30 Actual Procedures p Left Ankle Displaced Bimalleolar Fracture Open Reduction Internal Fixation(Left) - Iván Bernardo DO Surgeon Iván Bernardo DO Jig Bore Operator Jaden Garcia PA-C Estimated Blood Loss 3 Findings Consistent with Post-Op Diagnosis Specimens None Anesthesia Type General Regional Complications none Disposition Accompanied Patient To Recovery: No Disposition: Recovery Room
--- NOTE | 2019-12-13 10:36 | Fluoroscopy Report ---
FL ankle LT min 3V RTN CLINICAL HISTORY: LEFT ANKLE BIMALLEOLAR ORIF COMPARISON STUDY: Left ankle 11/16/2019. FLUOROSCOPY TIME: 1 minute and 9 seconds. FINDINGS: 2 fluoroscopic spot images of the left ankle. Status post internal fixation of a bimalleola r fracture with a cortical plate and screws. The hardware appears intact. Alignment is near-anatomic. IMPRESSION: Fluoroscopy provided for internal fixation of a bimalleolar left ankle fracture. ACT 112: Negative or not required by law. Electronically signed by: Dhiraj Bui M.D. 12/13/2019 10:35 AM
[2019-12-13] MEDS ORDERED: NEOSTIGMINE METHYLSULFATE 5 MG/5 ML SYR ONE (10:41)
[2019-12-13] MEDS ORDERED: GLYCOPYRROLATE 0.2 MG/ML VIAL ONE (10:41)
--- NOTE | 2019-12-13 10:48 | Anesthesiology Progress Note ---
Date of Service December 13, 2019 Anesthesia Post Procedure Vital Signs Vital Signs: Temp Pulse Pulse Resp BP BP Pulse Ox 12/13/19 10:41 97.9 F 67 16 148/70 H 96 12/13/19 10:30 69 16 117/52 L 94 12/13/19 10:20 67 16 145/64 H 100 12/13/19 10:10 70 16 138/62 100 12/13/19 10:04 97.0 F L 72 17 126/52 L 99 12/13/19 06:09 98.4 F 67 16 143/69 H 98 Transfer of Care Handoff Completed per policy Notes Mental Status: alert / awake / arousable and participated in evaluation Patient Amnestic to Procedure: Yes Nausea / Vomiting: adequately controlled Pain: adequately controlled Airway Patency, RR, SpO2: stable & adequate BP & HR: stable & adequate Hydration State: stable & adequate Anesthetic Complications: no major complications apparent and Pt Satisfied with anesthetic care
[2019-12-13] MEDS ORDERED: MAGNESIUM HYDROXIDE SUSP 30 ML UDC PO PRN (11:04)
[2019-12-13] MEDS ORDERED: TORSEMIDE 20 MG TAB PO PRN (11:04)
[2019-12-13] MEDS ORDERED: bisacodyL 10 MG SUPP PR PRN (11:04)
[2019-12-13] MEDS ORDERED: METOCLOPRAMIDE HCL INJ 5 MG/ML 2 ML VIAL IV PRN (11:04)
[2019-12-13] MEDS ORDERED: HYDROmorphone INJ 0.5 MG/0.5 ML SYR IV PRN (11:04)
[2019-12-13] MEDS ORDERED: TRAMADOL HCL 50 MG TABLET PO PRN (11:04)
[2019-12-13] MEDS ORDERED: TAMSULOSIN HCL 0.4 MG CAP PO PRN (11:04)
[2019-12-13] MEDS ORDERED: INSULIN REGULAR subcut SCH (11:04)
[2019-12-13] MEDS ORDERED: ALUMINUM/MAGNESIUM SUSP 30 ML UDC PO PRN (11:04)
[2019-12-13] MEDS ORDERED: NALOXONE HCL 0.4 MG/1 ML VIAL/CARP IV PRN (11:04)
[2019-12-13] MEDS ORDERED: PHARMACY GLYCEMIC MGMT CONSULT PRN (11:07)
[2019-12-13] MEDS ORDERED: GLUCAGON FOR INJ 1 MG VIAL IM PRN (11:15)
[2019-12-13] MEDS ORDERED: GLUCOSE 10 TABS/TUBE PO PRN (11:15)
[2019-12-13] MEDS ORDERED: GLUCOSE 40% GEL 15 GM TUBE PO PRN (11:15)
[2019-12-13] MEDS ORDERED: DEXTROSE 50% 50 ML SYRINGE IV PRN (11:15)
[2019-12-13] MEDS ORDERED: CARBOHYDRATES FOR HYPOGLYCEMIA PO PRN (11:15)
--- NOTE | 2019-12-13 11:17 | Operative Report ---
DATE OF OPERATION: 12/13/2019 PREOPERATIVE DIAGNOSES: Left displaced bimalleolar ankle fracture. POSTOPERATIVE DIAGNOSES: Same. PROCEDURE: Open reduction and internal fixation of left displaced bimalleolar ankle fracture. SURGEON: Iván Bernardo DO COVERED BUCKLE ASSEMBLER: Jaden Garcia PA-C who was present for patient positioning, sterile prep and drape, management of retractors and instruments. He was present through the critical portions of the case including wound closure, application of sterile dressing and transport of the patient to recovery. ANESTHESIA: General regional. SPECIMENS: None. DRAINS: None. COMPLICATIONS: None. BLOOD LOSS: 3 mL PERTINENT HISTORY: This is a 54-year-old gentleman who sustained a twisting fall of the left ankle. He was noted to have a displaced ankle fracture, initially with minimal displacement and then with serial radiographs noted worsening displacement. Also patient is noted to have diabetes mellitus, poor control. Therefore, patient was then scheduled for surgery as indicated. All potential risks, benefits, complications, alternatives, rehab, potential for incomplete relief of symptoms, need for further surgery, DVT, PE, , persistent pain, swelling, scarring, weakness, neurovascular injury, wound complications, hardware failure, nonunion, malunion, and bone fracture were discussed with the patient. The patient decided to proceed with procedure as indicated. The patient was administered a popliteal block in the preop holding area, then taken to the operative suite, placed supine on the operating room table. I reviewed consent and identification of proper operative site, the patient was anesthetized, LMA was placed. Tourniquet was placed high on left thigh over cast padding. Left lower extremity was then sterilely prepped in usual fashion, elevated and exsanguinated with an Esmarch bandage, tourniquet inflated to 350 mmHg. Next, a 15 blade scalpel was used to make an incision on the lateral malleolus extending proximally. The incision was deepened through subcutaneous tissue. Meticulous hemostasis was achieved with electrocautery. Full thickness skin flaps were developed. The sensory cutaneous nerves and the branch of the deep peroneal nerve were then retracted and protected. Next, the periosteum overlying the fracture was then incised with 15 blade scalpel. The periosteum was carefully elevated at the site of the fracture and then slightly proximal and distal to get exposure. The rest of the periosteum was then left in place for an enhanced biology. Next, the incision was copiously irrigated with sterile normal saline. The fracture was then opened with a dental pick and immature clot and fibrous tissue was then removed from the fracture site. The fracture was then reduced using gentle traction and use of a Lions jaw forcep and a second bone reduction forcep. Live fluoroscopic assistance was required and then a single 3.5 mm lag screw was placed from anterior to posterior resulting in a near anatomic reduction and fixation. Next, an 8-hole one-third tubular locking Synthes plate was then contoured and then firmly affixed to the lateral aspect of the lateral malleolus maintaining and stabilizing the fracture in anatomic reduction and fixation. Next, the medial malleolar fragment was then closed using percutaneous technique through a small stab incision with 15 blade scalpel centered over the medial malleolus and a 1.25 mm threaded guide pin was placed into the fracture and stabilized in the medial malleolus. A second small stab incision was made just posterior to the first over the medial malleolus and a second threaded guide pin was placed through the medial malleolar fragment stabilizing the medial malleolus. This was performed under live fluoroscopic assistance. Two 44 mm long thread Synthes cannulated screws were placed in the medial malleolar fragment placed under live fluoroscopic assistance and confirmed in AP and lateral projections. The guide pins were removed from the medial malleolus. All incisions were copiously irrigated with sterile normal saline. Of note, the patient was noted to have significantly softened bone. The screws did gain purchase; however, the nature and consistency of the bone was noted to be soft compared to age-matched controls of 53 year olds. Next, the incisions were all once again irrigated with copious amounts of sterile normal saline until clear. Deep soft tissue was closed over the lateral malleolar plate and the dermis was closed using buried interrupted 3-0 Vicryl, skin was closed with 4-0 nylon. The medial incisions were closed with interrupted 4-0 nylon sutures. A sterile compressive dressing and bulky Ken Owens plaster splint was applied overwrapped with an Balaji wrap. The foot was held in neutral dorsiflexion until the splint hardened, the tourniquet was released. Toes noted to be pink and warm. The patient was awakened and taken to recovery in stable condition. I attest to the content of the Intraoperative Record and any orders documented therein. Any exception s are noted below.
[2019-12-13] MEDS: INSULIN ASPART 100 UNITS/ML 3 ML PEN SC SCH ×3 (12:53→21:24)
--- NOTE | 2019-12-13 12:59 | Pharmacy Report ---
Glycemic Control Consultation - Date of Service December 13, 2019 - Scope Scope: Glycemic Pharmacist consulted by Jaden CARSON on 12/13 for glycemic control and to write orders per formerly [facility] inpatient glycemic control protocol - Objective Weight: 114 kg Accuchecks BSG (last 24hrs): 12/13/19 12/13/19 12/13/19 06:04 10:07 11:53 POC Glucose 135 H 147 H 193 H HbA1c: Hemoglobin A1c 10.1 % (4.5-5.6) H 12/06/19 09:42 - Recent Pertinent Medications Outpatient Anti-diabetic Regimen: * U-500 - 105 units at lunch, 55 units at dinner; Lantus 50 units qpm * A1c = 10.1 % 12/06/19 Risk Factors for Insulin Resistance: * Recent Surgery: POD 0 * Diet: yes - Assessment & Plan Assessment & Plan: ASSESSMENT: * 54 year old s/p repair of left ankle fracture. PMHx significant for type 2 diabetes, CHF, htn, hld * Patient managed on U-500 insulin at home in addition to Lantus. Confirmed doses with patient during interview. [facility] [place] [facility] * Patient known to our glycemic service from prior admissions. Typically we utilize Lantus/novolog during admissions for easier adjustments in dosing. Patient generally requiring around ~120 units of basal each admission * Patient confirmed he received all doses of his insulin yesterday - will start novolog with lunch BSG check and put in Lantus scale for dinner (since basal insulin tug captain still on board) PLAN FOR INPATIENT GLYCEMIC CONTROL: * Basal insulin * Lantus with dinner per scale - for BSG less than 180 - give 100 units - for BSG 180 or greater - give 120 units * Bolus insulin - added overnight checks * NovoLog per scale ACHS or Q6hrs while NPO * Goal Range: Low 110 mg/dL - High 140 mg/dL * Correction Factor: 10 mg/dL/unit * Nutritional / Prandial insulin per carb ratio of 1 unit per 3 grams CHO consumed * Please note that the plan above was derived based on current level of insulin resistance and hospital stress. These recommendations are appropriate for inpatient admission only. Plan of care upon discharge will need to be reassessed to avoid potential outpatient hypo/hyperglycemia. Thank you.
[2019-12-13] MEDS: CEFAZOLIN 2000MG 2,000 MG/15 ML SYR IV SCH ×2 (16:00→23:28)
[2019-12-13] MEDS ORDERED: INSULIN GLARGINE 100 UNIT/ML VIAL SC SCH (16:30)
[2019-12-13] MEDS: SODIUM CHLORIDE 0.9% 1000ML 1,000 ML IV SCH ×2 (17:23→23:33)
--- NOTE | 2019-12-13 18:25 | Hospitalist Consultation ---
Date of Consultation December 13, 2019 Assessment & Plan (1) Displaced bimalleolar fracture of left ankle: - S/P ORIF on 12/13 - DVT prophylaxis - ASA BID - Surgical management per primary Recent removal of skin tag on L buttock region - patient reports that the remaining area was removed and that the skin was folded over and sutured in place. When he had the sutures removed they were [facility]? He states he was also using peroxide which did advise to avoid this -- Wound care recommending to clean with saline, cover with aquacel and optifoam and changed QOD - can F/U in wound care clinic at [phone] (2) Diastolic CHF: - Per CHF clinic it appears the diastolic dysfunction is resolved on recent echo - so likely fluid accumulation could be venous stasis issues or other causes - Edema seems to be limited to lower extremities - no respiratory compromise - Continue Torsemide PRN - monitor given renal function (3) Stage 4 chronic kidney disease due to diabetes mellitus: - Baseline around 1.4-2 - but has been higher - AM labs to monitor - did require ICU admission due to hyperkalemia in the past (4) Dyslipidemia: - Continue Atorvastatin 80 mg daily (5) Hypertension: - Continue Metoprolol 100 mg daily -- Was previously on Diltiazem as well but resulted in symptomatic bradycardia - no issues since D/C of this additional medication (6) WHIT (obstructive sleep apnea): - CPAP HS (7) Poorly controlled diabetes mellitus: - A1c 10 - On large insulin dosing - high level of insulin resistance - Appreciate glycemic management input on glucose control - recommend continuing home dosing on D/C as any changes would need to go through [facility] History of Present Illness Attending Physician: Iván Bernardo DO History of Present Illness Mr. Swartz is a 54 y/o male with PMHx of Diastolic CHF, T2DM with significant insulin resistance, HTN, HLD, Stage IV CKD, GERD, and WHIT on CPAP who is S/P ORIF L ankle. Patient sustained a L ankle fracture due to a mechanical fall that did not resolve with conservative measures. He is doing well post-operatively. No pain currently with nerve block in place. He is tolerated a diet during my visit. He reports that he also tore a skin tag on his back side and states the [facility] remaining additional skin then possibly folded the skin over and sutured it in place and on re-inspection was concerned for infection. He said since he has been using peroxide and neosporin on this area. Wound care has been consulted and instructions given. He reports he has noticed increasing lower extremity edema but breathing is stable. He does have advanced renal disease with Cr ranging from 1.4-2 on average. Last check was 1.88. Will monitor with AM labs. Glycemic management managing glucose. He takes extremely high doses of insulin and A1c still at 10. He denies H/O GA or DVT/PE. Allergies Allergy/AdvReac Type Severity Reaction Status Date / Time amitriptyline AdvReac Mild shakey Verified 12/13/19 06:04 Home Medications Home Medications Medication Instructions Recorded Confirmed Type aspirin [Aspir-81] 81 mg PO QPM 08/02/18 12/13/19 History atorvastatin 80 mg PO QPM 08/02/18 12/13/19 History magnesium oxide 400 mg PO QPM 08/02/18 12/13/19 History metoprolol succinate 100 mg PO QPM 08/02/18 12/13/19 History tramadol 50 mg PO TID PRN 08/02/18 12/13/19 History omega 8-htz-pml-fish oil [Fish Oil] 1 cap PO QPM 02/20/19 12/13/19 History omeprazole 20 mg PO QPM #0 cap 08/14/19 12/13/19 Rx torsemide 20 mg PO DAILY PRN #0 tab 08/14/19 12/13/19 Rx insulin glargine 100 unit/mL 50 units SUBCUT QPM ml 08/30/19 12/13/19 History subcutaneous solution insulin regular hum U-500 conc 1 unit SUBCUT UD ml 08/30/19 12/13/19 History lisinopril 10 mg tablet 10 mg PO QAM 11/01/19 12/13/19 History oxycodone 5 mg PO Q4H PRN #15 tab 11/16/19 12/13/19 Rx cholecalciferol (vitamin D3) 25 2,000 units PO DAILY tab 11/19/19 12/13/19 History mcg (1,000 unit) chewable tablet cyanocobalamin (vitamin B-12) 1,000 mcg PO DAILY tab 11/19/19 12/13/19 History 1,000 mcg tablet gabapentin 600 mg PO DAILY 12/06/19 12/13/19 History Patient History Medical History COSMO (acute kidney injury) (Resolved) Hospitalized 07/2019 at [facility] for this and hyperkalemia (K+ >7)with bradycardia. Required emergent dialysis. Chronic kidney disease (Chronic) Stage IIIB/4 chronic kidney disease, baseline creatinine variable from 1.8- 3.5 Wide fluctuation based upon volume status and diuretic use. Following closely with nephrology. Diabetes (Chronic) Diastolic CHF (Resolved) Previously noted in history, but heart failure clinic note from 06/2019 states volume overload not cardiac related. Displaced bimalleolar fracture of left ankle Dyslipidemia (Chronic) Dyspnea GERD (gastroesophageal reflux disease) HLD (hyperlipidemia) Hyperkalemia Patient has been seen in ED twice last year for issues r/t this; some noncompliance issues with medications per record review; patient is following closely with nephrology. 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 Other Information That Helps Us Care for You: No Feels Safe at Home: Yes Safety Concerns: Feels Safe At This Time Smoking Status: Never smoker Do You Dip or Chew Tobacco: No ; Smoking End Date: QUIT 5 YRS AGO ; Second Hand Exposure: No ; Tobacco Cessation Education Requested by Patient: No Hx Alcohol Use: Yes (social use) Hx Substance Use: No Review of Systems Constitutional: no fever and no chills Eyes: no worsening vision Ear, Nose, Mouth, Throat: no sore throat and no dysphagia Respiratory: no cough and no dyspnea Cardiovascular: + edema (b/l lower extremities); no chest pain and no lightheadedness Gastrointestinal: no abdominal pain, no nausea, no vomiting, no constipation and no diarrhea/loose stools Genitourinary: no dysuria Integumentary: L buttock lesion (skin tag that was removed) Physical Exam Constitutional: WD/WN, vitals as above Eyes: + anicteric sclerae ENMT: Ears: no hearing impairment Neck: trachea midline Respiratory: normal respiratory effort, lungs clear to auscultation Cardiovascular: RRR, no murmur, no edema LLE with HELDER hose so hard to appreciate much edema at this time; LLE wrapped post-operatively Gastrointestinal (Abdomen): Inspection/Auscultation: normal bowel sounds Percussion/Palpation: abdomen soft; abdomen nontender Musculoskeletal: Head/Neck/Chest: normocephalic and head atraumatic LLE with ROSCOE/surgical wrap in place Skin: reviewed image of wound on L backside (picture in chart) Neurologic: moves all extremities Psychiatric: A+Ox3, euthymic affect Results & Data ([facility]) Vital Signs (Past 12 Hours) Vital Signs Temp Pulse Pulse Resp BP Pulse Ox 12/13/19 15:46 18 98 12/13/19 14:05 67 16 148/73 H 99 12/13/19 13:05 72 16 134/76 98 12/13/19 12:03 65 18 146/73 H 99 12/13/19 11:38 67 16 133/73 98 12/13/19 11:15 36.9 C 66 16 147/76 H 98 12/13/19 10:41 36.6 C 67 16 148/70 H 96 12/13/19 10:30 69 16 117/52 L 94 12/13/19 10:20 67 16 145/64 H 100 12/13/19 10:10 70 16 138/62 100 12/13/19 10:04 36.1 C L 72 17 126/52 L 99 PG Care Time/CCT Total # of Minutes Spent Total Time Spent with Patient: Total time spent is greater than 50% in coordination of care (as documented) at patient's floor/unit and/or counseling patient: Coding Level of Care Code 84552 Inpt Consult Level 2 Diagnoses Displaced bimalleolar fracture of left ankle S82.842A Diastolic CHF I50.33 Heart failure chronicity: acute on chronic Stage 4 chronic kidney disease due to diabetes mellitus E11.22; N18.4 Dyslipidemia E78.5 Hypertension I10 WHIT (obstructive sleep apnea) G47.33 Poorly controlled diabetes mellitus E11.65 (1) Diastolic CHF Heart failure chronicity: acute on chronic Qualified Code(s): I50.33 - Acute on chronic diastolic (congestive) heart failure
[2019-12-13] MEDS: DOCUSATE SODIUM 100 MG CAP PO SCH (20:06)
[2019-12-13] MEDS: ASPIRIN 81 MG ECTAB PO SCH (20:06)
[2019-12-13] MEDS: ACETAMINOPHEN 325 MG TAB PO PRN (20:07)
[2019-12-13] MEDS ORDERED: SENNA 8.6 MG TAB PO SCH (21:00)
[2019-12-13] MEDS ORDERED: ATORVASTATIN 40 MG TAB PO SCH (21:00)
[2019-12-13] MEDS ORDERED: METOPROLOL SUCC 50MG EXT REL TAB PO SCH (21:00)
[2019-12-13] MEDS ORDERED: PANTOprazole 40 MG TAB PO SCH (21:00)
[2019-12-13] MEDS ORDERED: MAGNESIUM OXIDE 400 MG TAB PO SCH (21:00)
[2019-12-13] MEDS ORDERED: OMEGA-3 (PURIFIED FISH OIL) 1 GM CAP PO SCH (21:00)
[2019-12-13] MEDS ORDERED: LANTUS PER UNIT CHARGE SQ SCH (21:00)
[2019-12-13] MEDS: OXYCODONE HCL IR 5 MG TAB (IMMEDIATE RELEASE) PO PRN (21:37)
[2019-12-14] MEDS: INSULIN ASPART 100 UNITS/ML 3 ML PEN SC SCH ×4 (00:44→13:05)
[2019-12-14] MEDS: ACETAMINOPHEN 325 MG TAB PO PRN (00:54)
[2019-12-14] MEDS: OXYCODONE HCL IR 5 MG TAB (IMMEDIATE RELEASE) PO PRN (03:21)
[2019-12-14 05:40] LABS: Hematocrit (blood only) 30.7 % (42-52); Hemoglobin 10.1 g/dL (14.0-18.0); Mean Corpuscular Hemoglobin 28.1 pg (25-34); Mean Corpuscular Hgb Conc 32.9 g/dL (32-36); Mean Corpuscular Volume 85.3 fL (80-100); Mean Platelet Volume 9.5 fL (7.4-10.4); Platelet Count 202 K/uL (130-400); RDW Coefficient of Variation 13.4 % (11.5-14.5); RDW Standard Deviation 41.3 fL (36.4-46.3); White Blood Count 8.89 K/uL (4.8-10.8)
[2019-12-14 06:06] LABS: Calcium 8.3 mg/dl (8.5-10.1); Creatinine Clr Calc Pharmacy 69.9 ml/min; Est GFR (African American) 63.3; Est GFR (Non-African American) 54.6; Potassium 4.1 mmol/L (3.5-5.1)
[2019-12-14] MEDS: ASPIRIN 81 MG ECTAB PO SCH (08:49)
[2019-12-14] MEDS: DOCUSATE SODIUM 100 MG CAP PO SCH (08:49)
[2019-12-14] MEDS ORDERED: CYANOCOBALAMIN 500 MCG TABLET (VITAMIN B-12) PO SCH (09:00)
[2019-12-14] MEDS ORDERED: CHOLECALCIFEROL 1,000 UNITS 25 MCG TAB PO SCH (09:00)
[2019-12-14] MEDS ORDERED: lisinopriL 10 MG TAB PO SCH (09:00)
[2019-12-14] MEDS ORDERED: GABAPENTIN 600 MG TAB PO SCH (09:00)
[2019-12-14] MEDS ORDERED: MULTIVITAMIN TAB PO SCH (09:00)
--- NOTE | 2019-12-14 09:28 | Orthopedic Progress Note ---
Date of Service December 14, 2019 Assessment & Plan (1) Displaced bimalleolar fracture of left ankle: plan for discharge today to home Continue SCD and ASA Continue NWB Subjective post op day #1. he notes he is feeling good today and would like to go home. He notes pain is controlled. No CP, SOB, dizziness Physical Exam Physical Exam: splint intact. toes mobile. NVI. no calf pain Results & Data ([facility]) Vital Signs (Past 12 Hours) Vital Signs Temp Pulse Resp BP BP Pulse Ox 12/14/19 07:39 36.4 C L 66 16 110/62 95 12/14/19 03:26 37.4 C 78 16 109/68 94 12/13/19 23:35 37.6 C H 84 16 134/64 93
== END 2019-12-14 14:16 | disposition home or self-care (01) | DRG 493 ==
LOC: PAT 05:35 → 3E 10:17 → INTOOBSV 10:17 → OBSVTOIN 10:17

== ENCOUNTER 2020-03-01 23:56 | Observation (INO) ==
--- NOTE | 2020-03-02 00:26 | Emergency Department Note ---
Impression & Plan Acute CHF, SOB (shortness of breath), Acute hyperglycemia ED Provider Note Name: BING REYNOLDS Age: 54 Sex: M Arrives Via: Walk-In Informant: Patient ED Provider: Jus Kurtz MD Chief Complaint: Shortness of breath Impression: Acute CHF Shortness of breath Acute Hyperglycemia Medical Decision Makin yr old male with long history of CHF along with kidney disease, dmii, htn, dlp, amonst others arrives for progressively worsening shortness of breath and weight gain. Dyspnea on arrival and exam consistent with failure. CXR with some congestion though no pulmonary edema. No evidence ACS, dissection and symptoms not consistent with PE nor COVID. He is stable, non-septic and seems comfortable sitting in bed after resting for a bit. Given Insulin and IV lasix. We discussed home vs observation and he notes he is too shob to go home. Given severe dyspnea with just attempts at ambulation I consulted hospitalist for further evaluation and management. Prior Medical Record and Triage/Nursing Notes reviewed by Me Differentials:Reactive airway disease, pneumonia, pneumothorax, COPD, CHF, infections, cardiac ischemia, pulmonary embolism, musculoskeletal, gastrointestinal, as well as other pathologies. amongst other pathologies. Vital Signs: reviewed and remarkable for HTN Interventions: Saline lock, insulin 6U IV, Lasix 40mg IV Labs:Reviewed and remarkable for no significant abnormalities Imaging:X ray results are stated below per my interpretation: Chest: 1 view: Moderate congestive failure EKG:Per My Interpretation: Indication Shortness of breath: NSR 83 bpm, qtc 413, poor baseline, no ectop, no ischemia, no recent for comparison. Cardiac/Tele Monitoring: Cardiac Monitoring: An Order was placed for continuous cardiac monitoring. The monitor shows a rate of 65 with a normal sinus rhythm. Consults:Dr Ram Hospitalist Plan: Disposition:Hospitalization. Condition: Good Blood pressure:Elevated - Referred to Hospitalist Prescriptions:None History of Present Illness:54 / M arrives for evaluation of shortness of breath. Patient with chf, ckd, dmii, htn, amongst others. Notes worsening breathing over the last few days. Now to the point that any exertion or laying flat makes him severely dyspeic. He denies lower leg swelling but notes that his abdomen and thighs have been swelling. He furthermore believes he has been gaining weight. Sitting up and not talking makes symptoms better. He is chronically on torsemide though has not changed nor increased any medications. Denies cp, syncope, fevers, significant cough, rashes, nausea, vomiting, abdominal pain, back pain, headache, nor other symptoms. No covid contacts nor recent testing. ROS: See above HPI for pertinent positives & negatives. A total of 10 systems reviewed and were otherwise negative. Past Medical History:See Below Past Surgical History:See Below Family History:See Below Social History:See Below Home Medications:See Below Allergies:See Below Vitals:Blood Pressure: 162/79, Pulse 68, RR 26, T 36.8C, O2 98% on RA Physical Exam: GENERAL: Patient is uncomfortable appearing and in moderate distress. EYES: No scleral icterus, unremarkable pupils. ENT: Mucous membranes moist, no nasal congestion. NECK: No masses appreciated, nomeningismus, trachea is midline. RESPIRATORY: Moderate dyspnea with talking, crackles throughout, no wheezing CARDIOVASCULAR: Regular rate and rhythm.No murmurs, rubs, gallops appreciated. GASTROINTESTINAL: Abdomen soft, non-tender, no peritonitis.Bowel sounds positive.No masses appreciated. BACK: No midline tenderness, no CVA tenderness EXTREMITIES: Bilateral lower legs wrapped mild edema bilateral thighs. Normal motion all extremities, no cyanosis. NEUROLOGIC: Alert and oriented, no acute motor or sensory deficits, no focal weakness, cranial nerves grossly intact. SKIN: No rash, no jaundice, no diaphoresis. PSYCH: Appropriate GCS: 15 ED Course: Times/Reassessments: Multiple, stable, no hypoxia, requesting hospitalization Jus Kurtz MD Past Med/Surg History Family History (Updated 12/23/19 @ 09:27 by Maureen Pereira) Other Coronary heart disease Diabetes Hypertension Denies family history of Crohn's disease Kidney disease Colorectal cancer Ulcerative colitis Social History Preferred Language: Guatemalan Communication Ability: Effective Medical Records Coordinator Required: Yes Beliefs That Will Affect Care: None marital status: Current Living Situation: Spouse Current Living Situation Comment: Four children, grown & in good health current occupational status: employed 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 Other Information That Helps Us Care for You: No Feels Safe at Home: Yes Safety Concerns: Feels Safe At This Time Smoking Status: Former smoker Do You Dip or Chew Tobacco: No ; Second Hand Exposure: No ; Tobacco Cessation Education Requested by Patient: No Hx Alcohol Use: No Hx Substance Use: No Allergies Allergies Allergy/AdvReac Type Severity Reaction Status Date / Time amitriptyline AdvReac Mild shakey Verified 03/02/20 01:29 Home Meds Home Medications Medication Instructions Recorded Confirmed atorvastatin 80 mg PO QPM 08/02/18 03/02/20 magnesium oxide 400 mg PO QPM 08/02/18 03/02/20 metoprolol succinate 100 mg PO QPM 08/02/18 03/02/20 omega 5-olk-jqe-fish oil [Fish Oil] 1 cap PO QPM 02/20/19 03/02/20 insulin glargine 100 unit/mL 50 units SUBCUT QPM ml 08/30/19 03/02/20 subcutaneous solution insulin regular hum U-500 conc 0 unit SUBCUT UD ml 08/30/19 03/02/20 lisinopril 10 mg tablet 10 mg PO QAM 11/01/19 03/02/20 cholecalciferol (vitamin D3) 25 2,000 units PO DAILY tab 11/19/19 03/02/20 mcg (1,000 unit) chewable tablet cyanocobalamin (vitamin B-12) 1,000 mcg PO DAILY tab 11/19/19 03/02/20 1,000 mcg tablet gabapentin 600 mg PO DAILY 12/06/19 03/02/20 aspirin 81 mg tablet,delayed 81 mg PO BID tab 01/16/20 03/02/20 release tramadol 50 mg PO Q6H PRN 02/21/20 03/02/20 Previous Rx's Medication Instructions Recorded omeprazole 20 mg PO QPM #0 cap 08/14/19 torsemide 20 mg PO DAILY PRN #0 tab 08/14/19 polyethylene glycol 3350 17 17 gm PO BID PRN #510 gm 12/23/19 gram/dose oral powder Results & Data (ED) Vital Signs Vital Signs - 24 hr 03/02/20 00:01 03/02/20 02:05 Temperature 36.8 C Temperature Source Oral Pulse Rate 84 Pulse Rate [Right Finger] 71 Pulse Rhythm [Right Finger] Regular Pulse Strength [Right Finger] Normal Respiratory Rate 22 16 Respiratory Depth Normal Blood Pressure 168/68 H Blood Pressure [Right Arm] 163/73 H Blood Pressure Mean 101 Blood Pressure Mean [Right Arm] 103 Blood Pressure Position Sitting Blood Pressure Position [Right Arm] Lying Pulse Oximetry 96 100 Oxygen Delivery Method Room Air Room Air Sepsis Recent Fever Within 48 Hours No Sepsis Action Taken by Nursing No Action Required Laboratory Data Result diagrams: 03/02/20 00:19 03/02/20 00:19 Lab Results 03/02/20 03/02/20 03/02/20 Range/Units 00: 00:19 01:32 WBC 8.97 (4.8-10.8) K/uL RBC 3.65 L (4.7-6.1) M/uL Hgb 10.3 L (14.0-18.0) g/dL Hct 31.3 L (42-52) % MCV 85.8 (80-100) fL MCH 28.2 (25-34) pg MCHC 32.9 (32-36) g/dL RDW Std Deviation 40.4 (36.4-46.3) fL RDW Coeff of Diane 12.9 (11.5-14.5) % Plt Count 251 (130-400) K/uL MPV 10.0 (7.4-10.4) fL Immature Gran % (Auto) 0.6 % Neut % (Auto) 60.2 % Lymph % (Auto) 29.1 % [place] % (Auto) 6.9 % Eos % (Auto) 2.9 % Baso % (Auto) 0.3 % Immature Gran # (Auto) 0.05 H (0.00-0.02) K/uL Neut # (Auto) 5.40 (1.4-6.5) K/uL Lymph # (Auto) 2.61 (1.2-3.4) K/uL [place] # (Auto) 0.62 H (0.11-0.59) K/uL Eos # (Auto) 0.26 (0-0.5) K/uL Baso # (Auto) 0.03 (0-0.2) K/uL Sodium 136 (136-145) mmol/L Potassium 4.5 (3.5-5.1) mmol/L Chloride 105 (98-107) mmol/L Carbon Dioxide 25 (21-32) mmol/L Anion Gap 6.0 (3-11) BUN 29 H (7-18) mg/dl Creatinine 1.74 H (0.6-1.4) mg/dl Est Cr Clr Drug Dosing 58.5 ml/min Est GFR ( Amer) 50.8 Est GFR (Non-Af Amer) 43.8 BUN/Creatinine Ratio 16.7 (10-20) Glucose 351 H* (70-99) mg/dl POC Glucose 268 H (70-99) mg/dl Calcium 8.6 (8.5-10.1) mg/dl Magnesium 2.3 (1.8-2.4) mg/dl Total Bilirubin 0.3 (0.2-1) mg/dl Direct Bilirubin < 0.1 (0-0.2) mg/dl AST 31 (15-37) U/L ALT 30 (12-78) U/L Alkaline Phosphatase 122 H (45-117) U/L Troponin I < 0.015 (0-0.045) ng/ml NT-Pro-B Natriuret Pep 716 (0-900) pg/ml Total Protein 7.8 (6.4-8.2) gm/dl Albumin 3.2 L (3.4-5.0) gm/dl Lipase 115 (73-393) U/L Beta-Hydroxybutyric Acd 0.64 (0.2-2.81) mg/dl Administered Medications Heparin Sodium (Porcine) (Heparin Sodium (Porcine)) 5,000 units SQ Q8 LELIA Stop: 04/01/20 05:59 Last Admin: 03/02/20 06:25 Dose: 5,000 units Documented by: [id number] Cosigned by: [id number] Discontinued Medications Furosemide (Lasix) 40 mg IV NOW STA Stop: 03/02/20 01:05 Last Admin: 03/02/20 01:34 Dose: 40 mg Documented by: [id number] Insulin Human Regular 8 units/ (Syringe) 8 mls @ 4 mls/min IV ONE ONE Stop: 03/02/20 01:31 Last Admin: 03/02/20 02:06 Dose: Not Given Documented by: [id number] Discharge Plan Visit Data *Final* Discharge Date/Time: 03/02/20 03:26 Chief Complaint: Shortness of Breath/Dyspnea Stated Complaint: sob ED Provider: Jus Kurtz Discharge Problem: Acute CHF, SOB (shortness of breath), Acute hyperglycemia Patient Disposition: Admitted As Inpatient Discharge Instructions Interventions: ED Discharge Assessment Last Done: 03/02/20 03:26 Discharge Problem: Acute CHF Qualifiers: Heart failure type: systolic Qualified Code(s): I50.21 - Acute systolic (congestive) heart failure
[2020-03-02 00:30] LABS: Basophils # (auto) 0.03 K/uL (0-0.2); Basophils % (auto) 0.3 %; Eosinophils # (auto) 0.26 K/uL (0-0.5); Eosinophils % (auto) 2.9 %; Hematocrit (blood only) 31.3 % (42-52); Hemoglobin 10.3 g/dL (14.0-18.0); Immature Granulocytes # (auto) 0.05 K/uL (0.00-0.02); Immature Granulocytes % (auto) 0.6 %; Lymphocytes # (auto) 2.61 K/uL (1.2-3.4); Lymphocytes % (auto) 29.1 %; Mean Corpuscular Hemoglobin 28.2 pg (25-34); Mean Corpuscular Hgb Conc 32.9 g/dL (32-36); Mean Corpuscular Volume 85.8 fL (80-100); Monocytes # (auto) 0.62 K/uL (0.11-0.59); Monocytes % (auto) 6.9 %; Neutrophils % (auto) 60.2 %; Platelet Count 251 K/uL (130-400); RDW Coefficient of Variation 12.9 % (11.5-14.5); RDW Standard Deviation 40.4 fL (36.4-46.3); Red Blood Count 3.65 M/uL (4.7-6.1); White Blood Count 8.97 K/uL (4.8-10.8)
[2020-03-02 00:56] LABS: Alanine Aminotransferase 30 U/L (12-78); Albumin Level 3.2 gm/dl (3.4-5.0); Alkaline Phosphatase 122 U/L (45-117); Aspartate Aminotransferase 31 U/L (15-37); BUN Creatinine Ratio 16.7 (10-20); Bilirubin Direct < 0.1 mg/dl (0-0.2); Bilirubin,Total 0.3 mg/dl (0.2-1); Blood Urea Nitrogen 29 mg/dl (7-18); Calcium 8.6 mg/dl (8.5-10.1); Carbon Dioxide 25 mmol/L (21-32); Chloride 105 mmol/L (98-107); Creatinine Clr Calc Pharmacy 58.5 ml/min; Est GFR (African American) 50.8; Est GFR (Non-African American) 43.8; Glucose 351 mg/dl (70-99); Lipase 115 U/L (73-393); Magnesium 2.3 mg/dl (1.8-2.4); NT Pro B Type Natriuretic Pept 716 pg/ml (0-900); Potassium 4.5 mmol/L (3.5-5.1); Sodium 136 mmol/L (136-145); Total Protein 7.8 gm/dl (6.4-8.2); Troponin I < 0.015 ng/ml (0-0.045)
[2020-03-02] MEDS ORDERED: FUROSEMIDE 40 MG/4 ML VIAL IV STA (01:04)
[2020-03-02] MEDS ORDERED: INSULIN HUMAN REGULAR IV STA (01:04)
[2020-03-02 01:06] LABS: Beta-Hydroxybutyrate 0.64 mg/dl (0.2-2.81)
[2020-03-02] MEDS ORDERED: INSULIN HUMAN REGULAR PER UNIT 8 UNITS in SYRINGE 7.92 ML IV ONE (01:30)
[2020-03-02] MEDS ORDERED: POLYETHYLENE (MIRALAX) 17 GM PACK PO PRN (03:43)
[2020-03-02] MEDS ORDERED: CARBOHYDRATES FOR HYPOGLYCEMIA PO PRN (03:43)
[2020-03-02] MEDS ORDERED: TRAMADOL HCL 50 MG TABLET PO PRN (03:43)
[2020-03-02] MEDS ORDERED: ACETAMINOPHEN 325 MG TAB PO PRN (03:43)
[2020-03-02] MEDS ORDERED: DEXTROSE 50% 50 ML SYRINGE IV PRN (03:43)
[2020-03-02] MEDS ORDERED: GLUCOSE 10 TABS/TUBE PO PRN (03:43)
[2020-03-02] MEDS ORDERED: GLUCAGON FOR INJ 1 MG VIAL SQ PRN (03:43)
[2020-03-02] MEDS ORDERED: GLUCOSE 40% GEL 15 GM TUBE PO PRN (03:43)
--- NOTE | 2020-03-02 04:46 | History & Physical Report ---
Date of Service March 02, 2020 Assessment & Plan (1) Shortness of breath: Patient with progressive dyspnea over the last day. Adequate oxygenation on room air. Suspect volume overload in setting of medication non-adherence - he states that he did not take his torsemide for the last few days. Records report dry weight to be appx 231#. Patient does not weigh himself at home (weight in ER = 253#) -Admit to medical floor -Lasix 40mg IV BID -BMP BID to monitor renal function and electrolytes with diuresis -Daily weights -Strict intake/output monitoring -Low Na diet, fluid restriction 1500mL/day Present on Admission?: Yes (2) CHF (congestive heart failure): Patietn with chronic diastolic CHF, was previously being followed by CHF clinic. Most recent echocardiogram in February 2019 with EF of 55-60%, no valvular abnormalities, normal RV function. Diastolic CHF seemed to have resolved. -Diuresis as above -Check 2D echo -Continue Lisinopril, Metoprolol Present on Admission?: Yes (3) Dyslipidemia: Chronic. -Continue Atorvastatin Present on Admission?: Yes (4) Hypertension: Blood pressure mildly elevated, 162/79 -Continue Lisinopril -Continue Metoprolol -Continue to monitor Present on Admission?: Yes (5) Chronic anemia: Stable. No active bleeding -Continue to monitor Present on Admission?: Yes (6) Stage 4 chronic kidney disease due to diabetes mellitus: BUN=29, Cr=1.74 which is near baseline -Cautious diuresis as above -BID BMP to monitor electrolytes and renal function -Avoid nephrotoxic agents -Renal dosing to all meds Present on Admission?: Yes (7) Diabetes: Chronic. Poorly controlled. Last A1C on 12/06/19 = 10.1 -Continue Lantus 50u qHS -ISS -Continue Gabapentin for neuropathy Present on Admission?: Yes (8) WHIT (obstructive sleep apnea): Chronic. -CPAP qHS F/E/N - Lasix 40mg IV BID, BID BMP, electrolyte repletion as needed, CC/Low Na diet with fluid restriction 1500mL/day Ppx - Heparin Code - Full Dispo - Observation to medical floor Admission and Anticipated Discharge Date Admission Date: March 02, 2020 Anticipated date of discharge: 03/03/20 History of Present Illness Chief Complaint: SOB Primary Care Provider: Marbella Gomez Reid Swartz is a 54yo C male with history of HTN/HLP/poorly controlled DM, CKD presenting with progressive SOB since this AM. Patient typically takes torsemide daily up to 120mg/day. He states that he "took a few days off" and did not take his torsemide for the last two days. This AM around 08:00 he became short of breath while visiting some friends at work. He took torsemide 40mg with no improvement in symptoms. He reports shortness of breath at rest and with exertion and conversation. He denies CP/palpitations/abdominal pain/nausea/vomiting/diarrhea/constipation. He says that he feels his heart pounding and can hear it in his ears when he becomes severely short of breath. No additional complaints at this time. ER Course: Lasix 40 mg IV x 1, Regular insulin 8u Allergies Allergy/AdvReac Type Severity Reaction Status Date / Time amitriptyline AdvReac Mild shakey Verified 03/02/20 01:29 Home Medications Home Medications Medication Instructions Recorded Confirmed Type atorvastatin 80 mg PO QPM 08/02/18 03/02/20 History magnesium oxide 400 mg PO QPM 08/02/18 03/02/20 History metoprolol succinate 100 mg PO QPM 08/02/18 03/02/20 History omega 6-dng-xun-fish oil [Fish Oil] 1 cap PO QPM 02/20/19 03/02/20 History omeprazole 20 mg PO QPM #0 cap 08/14/19 03/02/20 Rx torsemide 20 mg PO DAILY PRN #0 tab 08/14/19 03/02/20 Rx insulin glargine 100 unit/mL 50 units SUBCUT QPM ml 08/30/19 03/02/20 History subcutaneous solution insulin regular hum U-500 conc 0 unit SUBCUT UD ml 08/30/19 03/02/20 History lisinopril 10 mg tablet 10 mg PO QAM 11/01/19 03/02/20 History cholecalciferol (vitamin D3) 25 2,000 units PO DAILY tab 11/19/19 03/02/20 History mcg (1,000 unit) chewable tablet cyanocobalamin (vitamin B-12) 1,000 mcg PO DAILY tab 11/19/19 03/02/20 History 1,000 mcg tablet gabapentin 600 mg PO DAILY 12/06/19 03/02/20 History polyethylene glycol 3350 17 17 gm PO BID PRN #510 gm 12/23/19 03/02/20 Rx gram/dose oral powder aspirin 81 mg tablet,delayed 81 mg PO BID tab 01/16/20 03/02/20 History release tramadol 50 mg PO Q6H PRN 02/21/20 03/02/20 History Past Med/Surg History Family History (Updated 12/23/19 @ 09:27 by Maureen Pereira) Other Coronary heart disease Diabetes Hypertension Denies family history of Crohn's disease Kidney disease Colorectal cancer Ulcerative colitis Social History Preferred Language: Malawian Communication Ability: Effective Business Unit Controller Required: Yes Beliefs That Will Affect Care: None marital status: Current Living Situation: Spouse Current Living Situation Comment: Four children, grown & in good health current occupational status: employed 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 Other Information That Helps Us Care for You: No Feels Safe at Home: Yes Safety Concerns: Feels Safe At This Time Smoking Status: Former smoker Do You Dip or Chew Tobacco: No ; Second Hand Exposure: No ; Tobacco Cessation Education Requested by Patient: No Hx Alcohol Use: No Hx Substance Use: No Review of Systems Review of Systems: All systems reviewed & are unremarkable except as noted in HPI & below +SOB, LYMAN +Decreased UOP +Orthopnea Physical Exam Physical Exam: General: patient resting in bed, mildly dyspneic with conversation and movement, NAD, non-toxic in appearance, AA&O x 4 Skin: warm, dry, intact, no rashes or lesions HEENT: NC/AT, PERRL, EOMI, anicteric sclera, conjunctiva without injection, external ear normal to inspection and nontender, nares patent, moist mucus membranes, dentition intact, no oropharyngeal lesions, neck supple, trachea midline, no LAD, no thyromegaly, no JVD Heart: +S1/S2, regular, no m/r/g Lungs: equal air entry bilaterally, +crackles in bilateral bases Abd: +BS, soft, NT/ND, no masses/organomegaly/ascites Ext: warm, 2+ pulses in UE/LE bilaterally, no clubbing/cyanosis, trace pitting edema bilateral LE Neuro: nonfocal, patient AA&O x 4, speech intact, no facial droop, moving all extremities on command with equal strength 5/5 Results & Data Results & Data ([facility]) Vital Signs (Past 12 Hours) Vital Signs Temp Pulse Pulse Resp BP BP BP 03/02/20 03:44 36.8 C 68 18 162/79 H 03/02/20 03:26 69 18 183/65 H 03/02/20 02:05 71 16 163/73 H 03/02/20 00:01 36.8 C 84 22 168/68 H Pulse Ox 03/02/20 03:44 98 03/02/20 03:26 97 03/02/20 02:05 100 03/02/20 00:01 96 Laboratory Results Lab Results 03/02/20 03/02/20 03/02/20 Range/Units 00:19 00:19 01:32 WBC 8.97 (4.8-10.8) K/uL RBC 3.65 L (4.7-6.1) M/uL Hgb 10.3 L (14.0-18.0) g/dL Hct 31.3 L (42-52) % MCV 85.8 (80-100) fL MCH 28.2 (25-34) pg MCHC 32.9 (32-36) g/dL RDW Std Deviation 40.4 (36.4-46.3) fL RDW Coeff of Diane 12.9 (11.5-14.5) % Plt Count 251 (130-400) K/uL MPV 10.0 (7.4-10.4) fL Immature Gran % (Auto) 0.6 % Neut % (Auto) 60.2 % Lymph % (Auto) 29.1 % [place] % (Auto) 6.9 % Eos % (Auto) 2.9 % Baso % (Auto) 0.3 % Immature Gran # (Auto) 0.05 H (0.00-0.02) K/uL Neut # (Auto) 5.40 (1.4-6.5) K/uL Lymph # (Auto) 2.61 (1.2-3.4) K/uL [place] # (Auto) 0.62 H (0.11-0.59) K/uL Eos # (Auto) 0.26 (0-0.5) K/uL Baso # (Auto) 0.03 (0-0.2) K/uL Sodium 136 (136-145) mmol/L Potassium 4.5 (3.5-5.1) mmol/L Chloride 105 (98-107) mmol/L Carbon Dioxide 25 (21-32) mmol/L Anion Gap 6.0 (3-11) BUN 29 H (7-18) mg/dl Creatinine 1.74 H (0.6-1.4) mg/dl Est Cr Clr Drug Dosing 58.5 ml/min Est GFR ( Amer) 50.8 Est GFR (Non-Af Amer) 43.8 BUN/Creatinine Ratio 16.7 (10-20) Glucose 351 H* (70-99) mg/dl POC Glucose 268 H (70-99) mg/dl Calcium 8.6 (8.5-10.1) mg/dl Magnesium 2.3 (1.8-2.4) mg/dl Total Bilirubin 0.3 (0.2-1) mg/dl Direct Bilirubin < 0.1 (0-0.2) mg/dl AST 31 (15-37) U/L ALT 30 (12-78) U/L Alkaline Phosphatase 122 H (45-117) U/L Troponin I < 0.015 (0-0.045) ng/ml NT-Pro-B Natriuret Pep 716 (0-900) pg/ml Total Protein 7.8 (6.4-8.2) gm/dl Albumin 3.2 L (3.4-5.0) gm/dl Lipase 115 (73-393) U/L Beta-Hydroxybutyric Acd 0.64 (0.2-2.81) mg/dl 03/02/20 Range/Units 03:43 WBC (4.8-10.8) K/uL RBC (4.7-6.1) M/uL Hgb (14.0-18.0) g/dL Hct (42-52) % MCV (80-100) fL MCH (25-34) pg MCHC (32-36) g/dL RDW Std Deviation (36.4-46.3) fL RDW Coeff of Diane (11.5-14.5) % Plt Count (130-400) K/uL MPV (7.4-10.4) fL Immature Gran % (Auto) % Neut % (Auto) % Lymph % (Auto) % [place] % (Auto) % Eos % (Auto) % Baso % (Auto) % Immature Gran # (Auto) (0.00-0.02) K/uL Neut # (Auto) (1.4-6.5) K/uL Lymph # (Auto) (1.2-3.4) K/uL [place] # (Auto) (0.11-0.59) K/uL Eos # (Auto) (0-0.5) K/uL Baso # (Auto) (0-0.2) K/uL Sodium (136-145) mmol/L Potassium (3.5-5.1) mmol/L Chloride (98-107) mmol/L Carbon Dioxide (21-32) mmol/L Anion Gap (3-11) BUN (7-18) mg/dl Creatinine (0.6-1.4) mg/dl Est Cr Clr Drug Dosing ml/min Est GFR ( Amer) Est GFR (Non-Af Amer) BUN/Creatinine Ratio (10-20) Glucose (70-99) mg/dl POC Glucose 159 H (70-99) mg/dl Calcium (8.5-10.1) mg/dl Magnesium (1.8-2.4) mg/dl Total Bilirubin (0.2-1) mg/dl Direct Bilirubin (0-0.2) mg/dl AST (15-37) U/L ALT (12-78) U/L Alkaline Phosphatase (45-117) U/L Troponin I (0-0.045) ng/ml NT-Pro-B Natriuret Pep (0-900) pg/ml Total Protein (6.4-8.2) gm/dl Albumin (3.4-5.0) gm/dl Lipase (73-393) U/L Beta-Hydroxybutyric Acd (0.2-2.81) mg/dl ECG Additional Comments: NSR at 83, PE=088, QRS=82, XXr=107, no acute ischemic changes Code Status & VTE Plan Code Status FULL VTE Prophylaxis Plan VTE Prophylaxis will be ordered: Yes PG Care Time/CCT Total # of Minutes Spent Total Time Spent with Patient: Total time spent is greater than 50% in coordination of care (as documented) at patient's floor/unit and/or counseling patient: Coding Level of Care Code 73333 OBS Care - Level 3 Diagnoses Shortness of breath R06.02 CHF (congestive heart failure) I50.33 Heart failure type: diastolic Heart failure chronicity: acute on chronic Dyslipidemia E78.5 Hypertension I10 Hypertension type: essential hypertension Chronic anemia D64.9 Stage 4 chronic kidney disease due to diabetes mellitus E11.22; N18.4 Diabetes E11.621; L97.509; Z79.4 Diabetes mellitus type: type 2 Diabetes mellitus care home insulin use: with care home use Diabetes mellitus complication status: with skin complications Diabetes mellitus complication detail: with foot ulcer WHIT (obstructive sleep apnea) G47.33 (1) Hypertension Hypertension type: essential hypertension Qualified Code(s): I10 - Essential (primary) hypertension (2) CHF (congestive heart failure) Heart failure type: diastolic Heart failure chronicity: acute on chronic Qualified Code(s): I50.33 - Acute on chronic diastolic (congestive) heart failure (3) Diabetes Diabetes mellitus type: type 2 Diabetes mellitus care home insulin use: with care home use Diabetes mellitus complication status: with skin complications Diabetes mellitus complication detail: with foot ulcer Qualified Code(s): E11.621 - Type 2 diabetes mellitus with foot ulcer; L97.509 - Non-pressure chronic ulcer of other part of unspecified foot with unspecified severity; Z79.4 - jail (current) use of insulin
--- NOTE | 2020-03-02 06:01 | XRay Report ---
XR chest 1V portable CLINICAL HISTORY: Shortness of breath dyspnea COMPARISON STUDY: 10/06/2020 FINDINGS: The bones soft tissues and hemidiaphragms are normal. The cardiomediastinal silhouette is n ormal. The lungs are clear. The pulmonary vasculature is normal. IMPRESSION: Negative chest. ACT 112: Negative or not required by law. The above report was generated using voice recognition software. It may contain grammatical, syntax or spelling errors. Electronically signed by: Palomo Linares M.D. 03/02/2020 5:59 AM
[2020-03-02] MEDS: HEPARIN SOD 5,000 UNIT/0.5 ML VIAL SQ SCH ×3 (06:25→21:12)
[2020-03-02 06:56] LABS: BUN Creatinine Ratio 18.3 (10-20); Est GFR (African American) 59.8; Est GFR (Non-African American) 51.6
[2020-03-02] MEDS: FUROSEMIDE 40 MG in SYRINGE 0 ML IV SCH ×2 (08:57→16:59)
--- NOTE | 2020-03-02 08:57 | XCELERA ---
[id number] \\[email or web address]\[id number]
[2020-03-02] MEDS: ASPIRIN 81 MG ECTAB PO SCH ×2 (08:58→21:03)
[2020-03-02] MEDS: CYANOCOBALAMIN 500 MCG TABLET (VITAMIN B-12) PO SCH (08:58)
[2020-03-02] MEDS: lisinopriL 10 MG TAB PO SCH (08:58)
[2020-03-02] MEDS: GABAPENTIN 600 MG TAB PO SCH (08:58)
[2020-03-02] MEDS: CHOLECALCIFEROL 1,000 UNITS 25 MCG TAB PO SCH (08:59)
[2020-03-02] MEDS: INSULIN ASPART 100 UNITS/ML 3 ML PEN SC SCH ×4 (09:04→21:00)
--- NOTE | 2020-03-02 09:07 | Hospitalist Progress Note ---
Date of Service March 02, 2020 Assessment & Plan (1) Shortness of breath: Patient with progressive dyspnea, Adequate oxygenation on room air. Suspect volume overload in setting of medication non-adherence - he states that he did not take his torsemide for the last few days. Records report dry weight to be appx 231#. Patient does not weigh himself at home (weight in ER = 253#) -Lasix 40mg IV BID continues -Daily weights -Strict intake/output monitoring -Low Na diet, fluid restriction 1500mL/day ordering Bipap and continue home settings (2) CHF (congestive heart failure): acute on Chronic HFpEF, was previously being followed by CHF clinic. Most recent echocardiogram in February 2019 with EF of 55-60%, no valvular abnormalities, normal RV function. . -Diuresis as above -Check 2D echo -Continue Lisinopril, Metoprolol (3) Dyslipidemia: remains on Atorvastatin (4) Hypertension: Blood pressure mildly elevated, 162/79 -Continue Lisinopril, Metoprolol (5) Chronic anemia: Stable. in 10 gm range No active bleeding (6) Stage 4 chronic kidney disease due to diabetes mellitus: BUN=29, Cr=1.74 which is near baseline -Cautious diuresis as above -BID BMP to monitor electrolytes and renal function -Avoid nephrotoxic agents -Renal dosing to all meds (7) Diabetes: Chronic. Poorly controlled. Last A1C on 12/06/19 = 10.1 -did have some lower gluicose in the AM of 03/02, typically takes Lantus 50u qHS -remains on ISS -Continue Gabapentin for neuropathy (8) WHIT (obstructive sleep apnea): Chronic. -CPAP qHs Code - Full Admission and Anticipated Discharge Date Admission Date: March 02, 2020 Subjective Patient states he feels much better he can breathe with much less effort, he does not know significant amount of urine output that he can ascribe to. He did not have his BiPAP machine last evening the hospital. He said no further back pain or back discomfort Review of Systems Review of Systems: Mild distress and fatigue no headache, blurry or double vision no speech or swallowing issues no chest pain, pressure or palpitations Much less shortness of breath, no cough or wheezes no abdominal pain, nausea or vomiting, diarrhea or constipation no dysuria, hematuria does have urine frequency blamed upon the diuretic use no focal joint pain has significant body wall extremity swelling no back pain, CVA tenderness or radicular pain no bruising, bleeding or rashes no focal signs of weakness or numbness or altered sensation no complaints or anxiety or depression Results & Data Results & Data ([facility]) Vital Signs (Past 12 Hours) Vital Signs Temp Pulse Pulse Resp BP BP BP 03/02/20 07:15 98.2 F 62 18 119/62 03/02/20 03:44 98.2 F 68 18 162/79 H 03/02/20 03:26 69 18 183/65 H 03/02/20 02:05 71 16 163/73 H 03/02/20 00:01 98.2 F 84 22 168/68 H Pulse Ox 03/02/20 07:15 96 03/02/20 03:44 98 03/02/20 03:26 97 03/02/20 02:05 100 03/02/20 00:01 96 PG Care Time/CCT Total # of Minutes Spent Total Time Spent with Patient: Total time spent is greater than 50% in coordination of care (as documented) at patient's floor/unit and/or counseling p atient: Coding Level of Care Code 14591 Subseq Hosp Care Lvl 3 Diagnoses Shortness of breath R06.02 CHF (congestive heart failure) I50.33 Heart failure chronicity: acute on chronic Heart failure type: diastolic Dyslipidemia E78.5 Hypertension I10 Hypertension type: essential hypertension Chronic anemia D64.9 Stage 4 chronic kidney disease due to diabetes mellitus E11.22; N18.4 Diabetes E11.621; L97.509; Z79.4 Diabetes mellitus complication detail: with foot ulcer Diabetes mellitus complication status: with skin complications Diabetes mellitus lobsterman insulin use: with lobsterman use Diabetes mellitus type: type 2 WHIT (obstructive sleep apnea) G47.33 (1) Diabetes Diabetes mellitus complication detail: with foot ulcer Diabetes mellitus complication status: with skin complications Diabetes mellitus lobsterman insulin use: with lobsterman use Diabetes mellitus type: type 2 Qualified Code(s): E11.621 - Type 2 diabetes mellitus with foot ulcer; L97.509 - Non- pressure chronic ulcer of other part of unspecified foot with unspecified severity; Z79.4 - salvage determiner (current) use of insulin (2) CHF (congestive heart failure) Heart failure chronicity: acute on chronic Heart failure type: diastolic Qualified Code(s): I50.33 - Acute on chronic diastolic (congestive) heart failure (3) Hypertension Hypertension type: essential hypertension Qualified Code(s): I10 - Essential (primary) hypertension
--- NOTE | 2020-03-02 11:19 | Electrocardiogram Report ---
Test Reason : Blood Pressure : / mmHG Vent. Rate : 083 BPM Atrial Rate : 083 BPM P-R Int : 184 ms QRS Dur : 082 ms QT Int : 352 ms P-R-T Axes : 048 -28 070 degrees QTc Int : 413 ms Normal sinus rhythm Nonspecific ST abnormality Abnormal ECG When compared with ECG of 06-DEC-2019 09:37, Non-specific change in ST segment in Lateral leads Confirmed by Gurjit Davila ([id number]) on 03/02/2020 11:19:21 AM Referred By: REFERRED SELF Confirmed By:Nikita Davila
[2020-03-02] MEDS ORDERED: METOPROLOL SUCC 50MG EXT REL TAB PO SCH (21:00)
[2020-03-02] MEDS ORDERED: INSULIN GLARGINE SOLOSTAR 100 UNITS/ML 3 ML PEN SC SCH (21:00)
[2020-03-02] MEDS ORDERED: ATORVASTATIN 40 MG TAB PO SCH (21:00)
[2020-03-02] MEDS ORDERED: PANTOprazole 40 MG TAB PO SCH (21:00)
[2020-03-02] MEDS ORDERED: MAGNESIUM OXIDE 400 MG TAB PO SCH (21:00)
[2020-03-03] MEDS: HEPARIN SOD 5,000 UNIT/0.5 ML VIAL SQ SCH ×2 (05:06→12:22)
[2020-03-03 05:53] LABS: BUN Creatinine Ratio 17.3 (10-20); Calcium 8.8 mg/dl (8.5-10.1); Creatinine Clr Calc Pharmacy 55.5 ml/min; Est GFR (African American) 48.4; Est GFR (Non-African American) 41.8; Potassium 4.8 mmol/L (3.5-5.1)
[2020-03-03] MEDS: lisinopriL 10 MG TAB PO SCH (08:16)
[2020-03-03] MEDS: ASPIRIN 81 MG ECTAB PO SCH (08:17)
[2020-03-03] MEDS: GABAPENTIN 600 MG TAB PO SCH (08:17)
[2020-03-03] MEDS: CYANOCOBALAMIN 500 MCG TABLET (VITAMIN B-12) PO SCH (08:17)
[2020-03-03] MEDS: CHOLECALCIFEROL 1,000 UNITS 25 MCG TAB PO SCH (08:17)
[2020-03-03] MEDS: INSULIN ASPART 100 UNITS/ML 3 ML PEN SC SCH ×2 (08:49→12:22)
[2020-03-03] MEDS ORDERED: TORSEMIDE 100 MG TAB PO SCH (09:00)
--- NOTE | 2020-03-03 12:58 | Discharge Summary ---
Date of Service March 03, 2020 Admission HPI Per Admitting Provider Reid Swartz is a 54yo C male with history of HTN/HLP/poorly controlled DM, CKD presenting with progressive SOB since this AM. Patient typically takes torsemide daily up to 120mg/day. He states that he "took a few days off" and did not take his torsemide for the last two days. This AM around 08:00 he became short of breath while visiting some friends at work. He took torsemide 40mg with no improvement in symptoms. He reports shortness of breath at rest and with exertion and conversation. He denies CP/palpitations/abdominal pain/nausea/vomiting/diarrhea/constipation. He says that he feels his heart pounding and can hear it in his ears when he becomes severely short of breath. No additional complaints at this time. ER Course: Lasix 40 mg IV x 1, Regular insulin 8u Principal Diagnosis Fluid overload perhaps from pulmonary hypertension secondary to obstructive sleep apnea Chronic kidney disease stage III Difficult to control diabetes Discharge Exam The patient appeared well nourished and normally developed. Vital signs as documented. Head exam is unremarkable. No scleral icterus Neck is without JVD, thyromegaly, or carotid bruits. Lungs are clear to auscultation and percussion. Cardiac exam, Rhythm is regular.. Systolic murmurs are heard Abdominal exam reveals normal bowel sounds, no masses, no organomegaly and no aortic enlargement Extremities are with mild bilateral edema, both pedal pulses are normal. Neurologic exam is alert and oriented, no focal loss of strength or sensation Skin is without bruises or rashes Psychologically is without concerns for anxiety or depression Discharge Data Allergies Allergy/AdvReac Type Severity Reaction Status Date / Time amitriptyline AdvReac Mild shakey Verified 03/02/20 01:29 Consultations 03/02/20 01:04 ED Decision to Admit Stat Hospital Course (1) Shortness of breath: Patient with progressive dyspnea, Adequate oxygenation on room air. Suspect volume overload in setting of medication non-adherence - he states that he did not take his torsemide for the last few days prior to admission. Records report dry weight to be appx 231#. Patient does not weigh himself at home patient had a weight reduction of 6 pounds while in the hospital and felt dramatically better I personally give the patient instructions on daily weights and the importance of taking these weights to his outpatient provider. We will have the patient on daily furosemide. He is to be on a salt and fluid restricted diet -Patient is continue his home BiPAP (2) CHF (congestive heart failure): acute on Chronic HFpEF, was previously being followed by CHF clinic. Most recent echocardiogram does not mention diastolic dysfunction however the patient has preserved systolic function. This may be transient from his possible pulmonary hypertension associate with sleep apnea. Patient will continue torsemide at 100 and also continue Lisinopril, Metoprolol (3) Dyslipidemia: remains on Atorvastatin (4) Hypertension: -Continue Lisinopril, Metoprolol (5) Chronic anemia: Stable. in 10 gm range No active bleeding this may be anemia of chronic disease associated with his renal dysfunction (6) Diabetes: Chronic. Poorly controlled. Last A1C on 12/06/19 = 10.1 -did have some lower gluicose in the AM of 03/02, typically takes Lantus 50u qHS Patient feels he does better job managing his insulin at home he will return to his home insulin regiment with outpatient follow-up through an grit blaster from [facility] and [facility] -Continue Gabapentin for neuropathy (7) WHIT (obstructive sleep apnea): Patient typically wears BiPAP with inspiration pressure of 11 expiration pressure of 4 no oxygen bleeding Code - Full (8) CKD stage 3 due to type 2 diabetes mellitus: Total Time Total Time Spent Total Time Spent (In Minutes): It required greater than 30 minutes to prepare this patient for discharge Discharge Plan Discharge Items Patient Disposition: Home - Self-Care Reason For Visit: SOB Discharge Diagnosis: Acute on chronic heart failure preserved ejection fraction exacerbation of pulmonary hypertension with fluid overload Chronic kidney disease stage III Activity: Resume your previous activity Non-emergency contact: Primary Care Provider Call non-emergency contact if: you have any medication questions Follow-up/Referrals: Marbella Gomez PA-C [Primary Care Provider] - 03/11/20 9:45 am (IF YOU NEED TO CHANGE APPT PLEASE CALL [phone].) Diet: Carb Consistent or DM2 and Low Sodium (2gm) Addtl Attending Provider Instructions: Call 911 and go to the Emergency Room if: * You have tightness or pain in your chest that does not go away with rest or Nitroglycerin * You are very short of breath even with rest Call your doctor if any of the following symptoms or problems start or get worse: * Shortness of breath or difficulty breathing * Wake up at night short of breath * Chest pain * Cough * Swelling of your hands, fee, or legs * More fatigued or tired with your normal activity * Palpitations - sudden fast heart beats WEIGHT * Weigh yourself every morning after using the bathroom. * Use the same scale. * Wear the same amount of clothing. * Write your weight down on your chart. * Call your doctor if you gain more than 2-3 pounds in 1-2 days. MEDICATIONS * Use this discharge instruction sheet for instructions. * Take your medications at the time your doctor ordered. * Do not skip a dose of your medicines. * If you miss a dose of medicine, take as soon as possible, but DO NOT DOUBLE A DOSE. * Read your medicine information when you get home. * Know all of the side effects of your medicine. * Call your doctor's office if you have any side effects. * Be sure all of your doctors know what medicine and herbs you take (including cold, flu, and herbal medicine). * Pain Medicine: If you do not get relief from your pain, please call your doctor for help. Take the following with you to your follow-up doctor appointments: * Weight Chart * Medication List * List of questions Do not drink excessive alcohol, beer or wine. Pending Studies at Discharge: Yes Stand-Alone Forms: My [facility] [employer], Smoking Cessation Medications and DC Order Prescriptions: Continued lisinopril 10 mg tablet 10 mg PO QAM RF: 0 aspirin 81 mg tablet,delayed release (DR/EC) 81 mg PO BID RF: 0 insulin regular hum U-500 conc 500 unit/mL (3 mL) insulin pen 0 unit subcut UD RF: 0 polyethylene glycol 3350 17 gram/dose powder 17 gm PO BID PRN (Reason: constipation) Qty: 510 RF: 5 magnesium oxide 400 mg Capsule 400 mg PO QPM RF: 0 atorvastatin 80 mg Tablet 80 mg PO QPM RF: 0 metoprolol succinate 50 mg Tablet Extended Release 24 Hr 100 mg PO QPM RF: 0 Lantus U-100 Insulin 100 unit/mL solution 50 units subcut QPM RF: 0 omeprazole 20 mg Capsule,Delayed Release(Dr/Ec) 20 mg PO QPM Qty: 0 RF: 0 gabapentin 600 mg tablet 600 mg PO DAILY RF: 0 omega [id number] oil [Fish Oil] 1,000 mg (120 mg-180 mg) Capsule 1 cap PO QPM RF: 0 cholecalciferol (vitamin D3) [Vitamin D3] 25 mcg (1,000 unit) tablet,chewable 2,000 units PO DAILY RF: 0 cyanocobalamin (vitamin B-12) [Vitamin B-12] 1,000 mcg tablet 1,000 mcg PO DAILY RF: 0 tramadol 50 mg Tablet 50 mg PO Q6H PRN (Reason: Pain) RF: 0 Changed torsemide 20 mg tablet 100 mg PO DAILY Qty: 150 RF: 2 Discharge Orders: Discharge Order (Routine); Ordered 03/03/20 Ordered By: Walter Maria/Other Patient Handouts: Tips Using Less Salt, Diabetes Long-Term Complications, Diabetes Healthy Meals, Diabetes Exercise Benefits, Heart Failure Making Changes to Your Diet, Watching Sodium When You Have Diabetes Admission Data Admit Date/Time: 03/02/20 02:23 Attending Provider: Walter Jimenez Admit Provider: Trinidad aRm Primary Care Provider: Marbella Gomez Other Providers: Trinidad Ram Coding Level of Care Code D/C Day Management >30 mins Diagnoses Shortness of breath R06.02 CHF (congestive heart failure) I50.33 Heart failure type: diastolic Heart failure chronicity: acute on chronic Dyslipidemia E78.5 Hypertension I10 Hypertension type: essential hypertension Chronic anemia D64.9 Diabetes E11.621; L97.509; Z79.4 Diabetes mellitus type: type 2 Diabetes mellitus director long term care insulin use: with fpc use Diabetes mellitus complication status: with skin complications Diabetes mellitus complication detail: with foot ulcer WHIT (obstructive sleep apnea) G47.33 CKD stage 3 due to type 2 diabetes mellitus E11.22; N18.3
== END 2020-03-03 13:39 | disposition home or self-care (01) ==
LOC: 3E 23:56 → ED 23:56 → SUATTDRO 03-02 02:23 → 3E 03-02 03:26

== ENCOUNTER 2020-08-04 22:12 | Inpatient (IN) ==
--- NOTE | 2020-08-04 23:20 | Emergency Department Note ---
History of Present Illness General Chief complaint: Shortness of Breath/Dyspnea Stated complaint: SOB Time Seen by Provider: 08/04/20 23:00 Source: patient Mode of arrival: EMS Limitations: no limitations History of Present Illness Provider complaint: shortness of breath Onset (ago): unknown Associated symptoms: + chest pain, + cough and + shortness of breath; no fever/chills, no headaches, no nausea/vomiting, no syncope and no weakness Treatments prior to arrival: none This is a 55-year-old male who presents the emergency department complaining of increased shortness of breath. Patient states for "a long time" he has been short of breath with exertion, however today he noticed that he was short of breath even at rest. Patient states he has a history of chronic lower extremity edema, and does take a diuretic daily. Patient states in recent weeks that he had increased his diuretic dosing to twice a day, and then to 20 mg in the morning and 80 mg in the evening. He then states that tonight he was supposed to start at a slightly lower dose of 60 mg in the evening. Patient states he has not noticed any change in his chronic leg swelling. Patient states he does have diabetic neuropathy as well as blistering and ulcerations of his feet also. Patient denies any fevers or chills, rhinorrhea, nasal congestion, but does admit to a mild dry cough. Patient denies any known sick contact or exposure to coronavirus. Patient states he does see Dr. Paulino for cardiology, and does have a prior diagnosis of diastolic congestive heart failure. Patient states he believes his last echo was several years ago. Patient denies any other change in medications. Patient states yesterday he did notice pain along the left lateral chest that was intermittent and otherwise nonradiating. Patient states that pain was improved today and is now just "uncomfortable". Patient denies any change in this discomfort with position or exertion. Patient denies noting any rash or sores. Patient denies any accompanying abdominal pain, dizziness, headache, or change in bowel or bladder function. Pt seen during a time of high acuity and national emergency pandemic while wearing PPE. Home Medications Home Medications Medication Instructions Recorded Confirmed Type atorvastatin 80 mg PO QPM 08/02/18 08/05/20 History magnesium oxide 400 mg PO QPM 08/02/18 08/05/20 History metoprolol succinate 150 mg PO QPM 08/02/18 08/05/20 History omega 8-nnc-dkf-fish oil [Fish Oil] 1 cap PO QPM 02/20/19 08/05/20 History omeprazole 20 mg PO QPM #0 cap 08/14/19 08/05/20 Rx insulin glargine 100 unit/mL 25 units SUBCUT QPM ml 08/30/19 08/05/20 History subcutaneous solution cholecalciferol (vitamin D3) 25 2,000 units PO QPM tab 11/19/19 08/05/20 History mcg (1,000 unit) chewable tablet cyanocobalamin (vitamin B-12) 1,000 mcg PO QPM tab 11/19/19 08/05/20 History 1,000 mcg tablet gabapentin 600 mg PO TID 12/06/19 08/05/20 History polyethylene glycol 3350 17 17 gm PO BID PRN #510 gm 12/23/19 08/05/20 Rx gram/dose oral powder aspirin 81 mg tablet,delayed 81 mg PO BID tab 01/16/20 08/05/20 History release tramadol 50 mg PO Q6H PRN 02/21/20 08/05/20 History Probiotic 3,000 mmu cells PO QAM 03/26/20 08/05/20 History Humulin R U-500 (Conc) Kwikpen 40 unit SUBCUT AMPM 05/05/20 08/05/20 History Humulin R U-500 (Conc) Kwikpen 55 unit SUBCUT QPM 05/05/20 08/05/20 History fluticasone propionate [Flonase 1 spray INTRANASAL BID 05/05/20 08/05/20 History Allergy Relief] furosemide 60 mg PO HS 06/12/20 08/05/20 History metolazone 2.5 mg PO 2XWK 06/12/20 08/05/20 History Allergies Allergy/AdvReac Type Severity Reaction Status Date / Time amitriptyline AdvReac Mild muscle Verified 08/05/20 00:32 twitching hydralazine AdvReac Mild Rash Verified 08/05/20 00:32 Past Med/Surg History Medical History COSMO (acute kidney injury) Hospitalized 07/2019 at [facility] for this and hyperkalemia (K+ >7)with bradycardia. Required emergent sojluekg-FEUXQLGC-AS DIALYSIS SINCE-F/U DR CASTRO Arthritis Chronic back pain Chronic kidney disease Stage IIIB/4 chronic kidney disease, baseline creatinine variable from 1.8- 3.5 Wide fluctuation based upon volume status and diuretic use. Following closely with nephrology. Diabetes Diastolic CHF Previously noted in history, but heart failure clinic note from 06/2019 states volume overload not cardiac related. Displaced bimalleolar fracture of left ankle Diverticular disease Dyslipidemia Dyspnea ANY EXERTION GERD (gastroesophageal reflux disease) HLD (hyperlipidemia) Hyperkalemia Patient has been seen in ED twice last year for issues r/t this; some noncompliance issues with medications per record review; patient is following closely with nephrology. Hypertension Osteoarthritis Sleep apnea cpap Temporomandibular joint disorder CLICKS ON OCC NO LOCKING Surgical History History of open reduction and internal fixation (ORIF) procedure Left ankle Bimalleolar Fracture (11/2019) History of tonsillectomy and adenoidectomy Hx of cataract surgery right and left Hx of colonoscopy Roxie teeth extracted Family History Father Diabetes Mother Diabetes Other Coronary heart disease Hypertension Denies family history of Crohn's disease Kidney disease Colorectal cancer Ulcerative colitis Social History Smoking Status: Former smoker Tobacco Type: Cigarettes Second Hand Exposure: No; Hx Alcohol Use: No Hx Substance Use: No Preferred Language: Kittitian Communication Ability: Effective 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 and A total of 10 systems reviewed and were otherwise negative Physical Exam Vital Signs Vital Signs - 24 hr 08/04/20 22:19 08/04/20 22:30 08/04/20 23:00 Temperature 37.3 C Temperature Source Oral Pulse Rate 85 Pulse Rate [Right Finger] Pulse Rhythm [Right Finger] Pulse Strength [Right Finger] Respiratory Rate 22 Respiratory Effort / Characteristics Non-Labored Spontaneous Short of Breath Non-Labored Respiratory Depth Normal Normal Respiratory Pattern Regular Regular Blood Pressure 170/77 H Blood Pressure [Right Arm] Blood Pressure Mean 108 Blood Pressure Mean [Right Arm] Blood Pressure Position [Right Arm] Pulse Oximetry 92 87 L Oxygen Delivery Method Room Air Room Air Nasal Cannula Oxygen Flow Rate 2 Sepsis Recent Fever Within 48 Hours No Sepsis New/Unexplained Change in Mental Status No Sepsis Action Taken by Nursing No Action Required Oxygen Flow Rate - Titration 2 Pulse Oximetry Post Tiitration 97 08/04/20 23:55 08/05/20 01:24 Temperature Temperature Source Pulse Rate Pulse Rate [Right Finger] 80 78 Pulse Rhythm [Right Finger] Regular Pulse Strength [Right Finger] Normal Respiratory Rate 18 20 Respiratory Effort / Characteristics Respiratory Depth Normal Normal Respiratory Pattern Blood Pressure Blood Pressure [Right Arm] 174/69 H 144/83 H Blood Pressure Mean Blood Pressure Mean [Right Arm] 104 103 Blood Pressure Position [Right Arm] Lying Lying Pulse Oximetry 98 96 Oxygen Delivery Method Nasal Cannula Nasal Cannula Oxygen Flow Rate 2 2 Sepsis Recent Fever Within 48 Hours Sepsis New/Unexplained Change in Mental Status Sepsis Action Taken by Nursing Oxygen Flow Rate - Titration Pulse Oximetry Post Tiitration GENERAL: alert, well appearing, well nourished, no distress, non-toxic, obese EYE EXAM: normal conjunctiva, PERRL and EOM's grossly intact OROPHARYNX: no exudate, no erythema, lips, buccal mucosa, and tongue normal and mucous membranes are moist NECK: supple, no nuchal rigidity, no adenopathy, non-tender LUNGS: Clear to auscultation. Normal chest wall mechanics, no w/r/r, patient was placed on 2 L/min via nasal cannula by nursing staff after he was found to be hypoxic in the upper 80s, currently well-appearing without any increased work of breathing or tachypnea HEART: no murmurs, S1 normal and S2 normal ABDOMEN: abdomen soft, non-tender, normo-active bowel sounds, no masses, no rebound or guarding. BACK: Back is symmetrical on inspection and there is no deformity, no midline tenderness, no CVA tenderness. SKIN: no rashes and no bruising UPPER EXTREMITIES: upper extremities are grossly normal. FROM, nml pulses b/l. LOWER EXTREMITIES: 3+ pitting edema bilaterally, chronic in appearance. Legs have dressings with overlying Balaji wrap's for compression bilaterally. FROM, nml pulses b/l. Wraps were taken down with the assistance of nursing staff, and patient was noted to have an ulcerated lesion along the lateral aspect of the plantar foot in the area of the fifth MTP on the right, as well as a larger area to the mid plantar aspect on the left which are intact. No acute surrounding erythema or significant drainage. Legs otherwise with chronic appearing changes related to ongoing edema. No evidence of acute cellulitis. Compartments soft. NEURO EXAM: Normal sensorium, cranial nerves II-XII grossly intact, normal speech, no gross weakness of arms, no gross weakness of legs. Gross sensation intact. Course Course 2314: On review of EMR, patient had an echo on March 022019. At that time the read from this showed a left ventricle normal in size, normal LV wall thic kness and ejection fraction 60 to 65%. Normal diastolic function. Normal right ventricle, normal aortic valve, normal mitral valve, no pericardial effusion. 0020: Patient updated on results. 0037: Case discussed with Dr. Ram. Administered Medications Discontinued Medications Furosemide (Furosemide 10 Mg/Ml 10 Ml Vial) Confirm Administered Dose 10 mg IV .[employer]-MED ONE Stop: 08/05/20 01:12 Last Admin: 08/05/20 01:23 Dose: Not Given Documented by: [id number] Furosemide 60 mg/ Syringe 6 mls @ 4 mls/min IV NOW STA Stop: 08/05/20 00:24 Last Admin: 08/05/20 01:23 Dose: 4 mls/min Documented by: [id number] Insulin Human Regular (Novolin-R Insulin Per Unit Charge) 6 units SC NOW STA Stop: 08/05/20 00:16 Last Admin: 08/05/20 00:55 Dose: 6 units Documented by: [id number] Cosigned by: [id number] Medical Decision Making Differential Diagnosis Differential diagnoses includes but is not limited to pneumonia, bronchitis, COPD/Asthma exacerbation, pneumothorax, pulmonary embolism, congestive heart failure, acute coronary syndrome Medical Records Attestation: I reviewed the patient's medical records. Home Medications Current Medication List: was personally reviewed by me Laboratory Data Attestation: I reviewed the patient's lab results. Result diagrams: 08/04/20 23:31 08/04/20 23:31 Lab Results 08/04/20 08/04/20 08/04/20 Range/Units 23:31 23:31 23:31 WBC 9.13 (4.8-10.8) K/uL RBC 3.25 L (4.7-6.1) M/uL Hgb 8.3 L (14.0-18.0) g/dL Hct 27.2 L (42-52) % MCV 83.7 (80-100) fL MCH 25.5 (25-34) pg MCHC 30.5 L (32-36) g/dL RDW Std Deviation 45.8 (36.4-46.3) fL RDW Coeff of Diane 15.0 H (11.5-14.5) % Plt Count 364 (130-400) K/uL MPV 9.4 (7.4-10.4) fL Immature Gran % (Auto) 0.3 % Neut % (Auto) 62.5 % Lymph % (Auto) 24.3 % Lander % (Auto) 7.2 % Eos % (Auto) 5.4 % Baso % (Auto) 0.3 % Neut # (Auto) 5.70 (1.4-6.5) K/uL Lymph # (Auto) 2.22 (1.2-3.4) K/uL Lander # (Auto) 0.66 H (0.11-0.59) K/uL Eos # (Auto) 0.49 (0-0.5) K/uL Baso # (Auto) 0.03 (0-0.2) K/uL Immature Gran # (Auto) 0.03 H (0.00-0.02) K/uL PT 10.9 (9.0-12.0) Seconds INR 1.0 (0.9-1.1) Sodium 135 L (136-145) mmol/L Potassium 4.9 (3.5-5.1) mmol/L Chloride 99 (98-107) mmol/L Carbon Dioxide 27 (21-32) mmol/L Anion Gap 8.0 (3-11) BUN 24 H (7-18) mg/dl Creatinine 1.82 H (0.6-1.4) mg/dl Est Cr Clr Drug Dosing 53.1 ml/min Est GFR ( Amer) 47.7 Est GFR (Non-Af Amer) 41.2 BUN/Creatinine Ratio 13.2 (10-20) Glucose 339 H* (70-99) mg/dl Calcium 7.9 L (8.5-10.1) mg/dl Magnesium 2.2 (1.8-2.4) mg/dl Total Bilirubin 0.5 (0.2-1) mg/dl AST 10 L (15-37) U/L ALT 13 (12-78) U/L Alkaline Phosphatase 84 (45-117) U/L Troponin I < 0.015 (0-0.045) ng/ml NT-Pro-B Natriuret Pep 1022 H (0-900) pg/ml Total Protein 7.3 (6.4-8.2) gm/dl Albumin 2.7 L (3.4-5.0) gm/dl Globulin 4.6 H (2.5-4.0) gm/dl Albumin/Globulin Ratio 0.6 L (0.9-2) Lipase 49 L (73-393) U/L Beta-Hydroxybutyric Acd 0.76 (0.2-2.81) mg/dl Imaging Data My Impression: X-ray: I interpreted the following studies. Chest: A single view study of the chest was reviewed and was negative for cardiomegaly, effusion, pulmonary edema, or wide mediastinum. Slightly increased interstitial markings noted along the right heart border and right base, does not appear to be consolidated, and upon additional review does appear similar to a prior chest x- ray. ECG Data Attestation: I personally reviewed and interpreted this ECG as follows: Indication: + SOB/dyspnea Rate (beats per minute): 89 Rhythm: + normal sinus ECG Intervals/blocks: + Normal QRS and + Normal QT ECG Mullins: + Left axis deviation ECG ST segments: + Normal ST segments Blood Pressure Blood Pressure Findings: Elevated blood pressure Blood Pressure Disposition: further management by hospitalist IRVIN Bowen Patient presenting here with concern for worsening shortness of breath. Patient with a history of shortness of breath with exertion, now experiencing it at rest. Patient with a history of lower extremity edema and does take diuretics daily. Patient also has history of chronic kidney disease as well as diastolic congestive heart failure. No recent URI symptoms or fevers. Labs are drawn and sent and chest x-ray performed. No obvious consolidation, pulmonary edema, or effusion noted on chest x-ray. No leukocytosis seen on labs. Patient's H&H does appear lower than prior, patient is on aspirin however no other anticoagulation. Patient denies any blood loss from any GI, , or other source. Patient's creatinine appears stable compared to prior given his history of chronic kidney disease. Patient was noted to be hypoxic on room air here and does not typically wear home oxygen. Patient was placed on 2 to 3 L via nasal cannula and was improved. Patient's troponin negative and EKG otherwise unremarkable. I do not suspect ACS. I do not suspect PE given his history. Case was discussed with hospitalist for additional evaluation and management. Patient was given his dose of Lasix IV 60 mg here. Patient was made aware of all results and we did discuss the plan and he was in agreement. Patient was hyperglycemic, no evidence of DKA, was given a dose of additional subcu insulin. An order was placed for continuous cardiac monitoring. The monitor shows a rate of _82_ with _normal sinus_ rhythm. Impression & Plan Dyspnea, Hyperglycemia, CKD (chronic kidney disease), Anemia, Hypoxia, Leg edema Discharge Plan Visit Data Chief Complaint: Shortness of Breath/Dyspnea Stated Complaint: SOB ED Provider: Lilibeth Gonzalez Discharge Problem: Dyspnea, Hyperglycemia, CKD (chronic kidney disease), Anemia, Hypoxia, Leg edema Forms Stand Alone Forms: My [facility] [employer] Prescriptions Prescriptions: No Action aspirin 81 mg tablet,delayed release (DR/EC) 81 mg PO BID RF: 0 polyethylene glycol 3350 17 gram/dose powder 17 gm PO BID PRN (Reason: constipation) Qty: 510 RF: 5 magnesium oxide 400 mg Capsule 400 mg PO QPM RF: 0 atorvastatin 80 mg Tablet 80 mg PO QPM RF: 0 metoprolol succinate 50 mg Tablet Extended Release 24 Hr 150 mg PO QPM RF: 0 Lantus U-100 Insulin 100 unit/mL solution 25 units subcut QPM RF: 0 omeprazole 20 mg Capsule,Delayed Release(Dr/Ec) 20 mg PO QPM Qty: 0 RF: 0 gabapentin 600 mg tablet 600 mg PO TID RF: 0 Probiotic 3 billion cell Capsule 3,000 mmu cells PO QAM RF: 0 omega 8-kbz-iav-fish oil [Fish Oil] 1,000 mg (120 mg-180 mg) Capsule 1 cap PO QPM RF: 0 cholecalciferol (vitamin D3) [Vitamin D3] 25 mcg (1,000 unit) tablet,chewable 2,000 units PO QPM RF: 0 cyanocobalamin (vitamin B-12) [Vitamin B-12] 1,000 mcg tablet 1,000 mcg PO QPM RF: 0 Humulin R U-500 (Conc) Kwikpen 500 unit/mL (3 mL) Insulin Pen 40 unit SUBCUT AMPM RF: 0 Humulin R U-500 (Conc) Kwikpen 500 unit/mL (3 mL) Insulin Pen 55 unit SUBCUT QPM RF: 0 fluticasone propionate [Flonase Allergy Relief] 50 mcg/actuation Rhame,Suspension 1 spray INTRANASAL BID RF: 0 furosemide 40 mg Tablet 60 mg PO HS RF: 0 metolazone 2.5 mg Tablet 2.5 mg PO 2XWK RF: 0 tramadol 50 mg Tablet 50 mg PO Q6H PRN (Reason: Pain) RF: 0 Discharge Problem: Dyspnea Qualifiers: Dyspnea type: shortness of breath Qualified Code(s): R06.02 - Shortness of breath CKD (chronic kidney disease) Qualifiers: Chronic kidney disease stage: unspecified stage Qualified Code(s): N18.9 - Chronic kidney disease, unspecified Anemia Qualifiers: Anemia type: unspecified type Qualified Code(s): D64.9 - Anemia, unspecified
[2020-08-04 23:42] LABS: Basophils # (auto) 0.03 K/uL (0-0.2); Basophils % (auto) 0.3 %; Eosinophils # (auto) 0.49 K/uL (0-0.5); Eosinophils % (auto) 5.4 %; Hematocrit (blood only) 27.2 % (42-52); Hemoglobin 8.3 g/dL (14.0-18.0); Immature Granulocytes # (auto) 0.03 K/uL (0.00-0.02); Immature Granulocytes % (auto) 0.3 %; Lymphocytes # (auto) 2.22 K/uL (1.2-3.4); Lymphocytes % (auto) 24.3 %; Mean Corpuscular Hemoglobin 25.5 pg (25-34); Mean Corpuscular Hgb Conc 30.5 g/dL (32-36); Mean Corpuscular Volume 83.7 fL (80-100); Mean Platelet Volume 9.4 fL (7.4-10.4); Monocytes # (auto) 0.66 K/uL (0.11-0.59); Monocytes % (auto) 7.2 %; Neutrophils % (auto) 62.5 %; Platelet Count 364 K/uL (130-400); RDW Standard Deviation 45.8 fL (36.4-46.3); Red Blood Count 3.25 M/uL (4.7-6.1); White Blood Count 9.13 K/uL (4.8-10.8)
[2020-08-04 23:51] LABS: Prothrombin Time 10.9 Seconds (9.0-12.0)
[2020-08-05 00:07] LABS: Alanine Aminotransferase 13 U/L (12-78); Albumin Level 2.7 gm/dl (3.4-5.0); Aspartate Aminotransferase 10 U/L (15-37); BUN Creatinine Ratio 13.2 (10-20); Blood Urea Nitrogen 24 mg/dl (7-18); Calcium 7.9 mg/dl (8.5-10.1); Carbon Dioxide 27 mmol/L (21-32); Chloride 99 mmol/L (98-107); Creatinine Clr Calc Pharmacy 53.1 ml/min; Est GFR (African American) 47.7; Est GFR (Non-African American) 41.2; Glucose 339 mg/dl (70-99); Lipase 49 U/L (73-393); Magnesium 2.2 mg/dl (1.8-2.4); Potassium 4.9 mmol/L (3.5-5.1); Sodium 135 mmol/L (136-145)
[2020-08-05 00:12] LABS: Albumin Globulin Ratio 0.6 (0.9-2); Alkaline Phosphatase 84 U/L (45-117); Bilirubin,Total 0.5 mg/dl (0.2-1); Globulin 4.6 gm/dl (2.5-4.0); NT Pro B Type Natriuretic Pept 1022 pg/ml (0-900); Total Protein 7.3 gm/dl (6.4-8.2); Troponin I < 0.015 ng/ml (0-0.045)
[2020-08-05] MEDS ORDERED: NovoLIN-R INSULIN PER UNIT CHARGE SC STA (00:15)
[2020-08-05 00:17] LABS: Beta-Hydroxybutyrate 0.76 mg/dl (0.2-2.81)
[2020-08-05] MEDS ORDERED: FUROSEMIDE 60 MG in SYRINGE 0 ML IV STA (00:23)
[2020-08-05] MEDS ORDERED: FUROSEMIDE 10 MG/ML 10 ML VIAL IV ONE (01:11)
--- NOTE | 2020-08-05 02:01 | History & Physical Report ---
Date of Service August 05, 2020 Assessment & Plan (1) Dyspnea: Patient with hypoxia, 87% on room air, improved with supplemental O2. Dyspnea ?secondary to volume overload - multifactorial, CHF, renal dysfunction, lymphedema. Patient reports his last known dry weight appx 6 months ago was 247# -Admit to medical floor -Lasix 60mg IV BID -Monitor BID BMP and daily Mag, electrolyte repletion as needed, careful attention to renal function -Daily weights, strict I/O monitoring Present on Admission?: Yes (2) Hyperglycemia: Elevated blood sugar, poorly controlled DM -Continue insulin - Lantus 25u qHS, ISS -Glycemic management consultation appreciated Present on Admission?: Yes (3) CKD (chronic kidney disease): Near baseline renal function. Electrolytes stable -Monitor BID BMP -Renal dosing -Avoid nephrotoxic agents Present on Admission?: Yes (4) Anemia: Slow decline in H/H. Normochromic/normocytic. No obvious source of bleed. ?if anemia is contributing to overall symptoms of dyspnea. ?utility of IV iron infusions in anemic patient with CHF -Continue to monitor Present on Admission?: Yes (5) Leg edema: Chronic. Stable -Diuresis as above -Encourage elevation Present on Admission?: Yes (6) WHIT (obstructive sleep apnea): Chronic -CPAP [id number] qHS Present on Admission?: Yes (7) Hypertension: Blood pressure elevated -Continue home medications, Metoprolol -Continue to monitor Present on Admission?: Yes (8) Dyslipidemia: Chronic -Continue Atorvastatin Present on Admission?: Yes (9) Diabetes: As above -Lantus, ISS -Goal blood sugar 100 - 140 -Glycemic management consultation appreciated F/E/N - diuresis as above, closely monitor electrolytes, CC/Low Na diet as tolerated Ppx - Heparin. Code - Full Dispo - Admit to medical with telemetry Present on Admission?: Yes History of Present Illness Chief Complaint: SOB Primary Care Provider: Marbella Gomez Reid Swartz is a 55yo male presenting with progressive SOB. He reports a 20# weight gain over the last few months due to fluid. He follows with Nephrology, Cardiology and Lymphedema clinic and has been on multiple diuretics in the past to include Lasix, Bumex, Torsemide and now Lasix and Metolazone with limited success in mobilizing the fluid. Also with some stabbing chest discomfort today, non-pleuritic, non-exertional. Reproducible with palpation. Reports poor urine output at baseline which has been stable. No fevers/chills/nausea/vomiting/diarrhea or constipation. No additional complaints Allergies Allergy/AdvReac Type Severity Reaction Status Date / Time amitriptyline AdvReac Mild muscle Verified 08/05/20 00:32 twitching hydralazine AdvReac Mild Rash Verified 08/05/20 00:32 Home Medications Home Medications Medication Instructions Recorded Confirmed Type atorvastatin 80 mg PO QPM 08/02/18 08/05/20 History magnesium oxide 400 mg PO QPM 08/02/18 08/05/20 History metoprolol succinate 150 mg PO QPM 08/02/18 08/05/20 History omega 7-iaf-muo-fish oil [Fish Oil] 1 cap PO QPM 02/20/19 08/05/20 History omeprazole 20 mg PO QPM #0 cap 08/14/19 08/05/20 Rx insulin glargine 100 unit/mL 25 units SUBCUT QPM ml 08/30/19 08/05/20 History subcutaneous solution cholecalciferol (vitamin D3) 25 2,000 units PO QPM tab 11/19/19 08/05/20 History mcg (1,000 unit) chewable tablet cyanocobalamin (vitamin B-12) 1,000 mcg PO QPM tab 11/19/19 08/05/20 History 1,000 mcg tablet gabapentin 600 mg PO TID 12/06/19 08/05/20 History polyethylene glycol 3350 17 17 gm PO BID PRN #510 gm 12/23/19 08/05/20 Rx gram/dose oral powder aspirin 81 mg tablet,delayed 81 mg PO BID tab 01/16/20 08/05/20 History release tramadol 50 mg PO Q6H PRN 02/21/20 08/05/20 History Probiotic 3,000 mmu cells PO QAM 03/26/20 08/05/20 History Humulin R U-500 (Conc) Kwikpen 40 unit SUBCUT AMPM 05/05/20 08/05/20 History Humulin R U-500 (Conc) Kwikpen 55 unit SUBCUT QPM 05/05/20 08/05/20 History fluticasone propionate [Flonase 1 spray INTRANASAL BID 05/05/20 08/05/20 History Allergy Relief] furosemide 60 mg PO HS 06/12/20 08/05/20 History metolazone 2.5 mg PO 2XWK 06/12/20 08/05/20 History Past Med/Surg History Medical History COSMO (acute kidney injury) Hospitalized 07/[address] [facility] for this and hyperkalemia (K+ >7)with bradycardia. Required emergent pzheqfiy-[id number]-YP DIALYSIS SINCE-F/U DR CASTRO Arthritis Chronic back pain Chronic kidney disease Stage IIIB/4 chronic kidney disease, baseline creatinine variable from 1.8- 3.5 Wide fluctuation based upon volume status and diuretic use. Following c losely with nephrology. Diabetes Diastolic CHF Previously noted in history, but heart failure clinic note from 06/2019 states volume overload not cardiac related. Displaced bimalleolar fracture of left ankle Diverticular disease Dyslipidemia Dyspnea ANY EXERTION GERD (gastroesophageal reflux disease) HLD (hyperlipidemia) Hyperkalemia Patient has been seen in ED twice last year for issues r/t this; some noncompliance issues with medications per record review; patient is following closely with nephrology. Hypertension Osteoarthritis Sleep apnea cpap Temporomandibular joint disorder CLICKS ON OCC NO LOCKING Surgical History History of open reduction and internal fixation (ORIF) procedure Left ankle Bimalleolar Fracture (11/2019) History of tonsillectomy and adenoidectomy Hx of cataract surgery right and left Hx of colonoscopy [place] teeth extracted Family History Father Diabetes Mother Diabetes Other Coronary heart disease Hypertension Denies family history of Crohn's disease Kidney disease Colorectal cancer Ulcerative colitis Social History Smoking Status: Former smoker Tobacco Type: Cigarettes Second Hand Exposure: No; Hx Alcohol Use: No Hx Substance Use: No Preferred Language: Lao Communication Ability: Effective 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 Former Feels Safe at Home: Yes Assistive Devices: Cane Review of Systems Review of Systems: All systems reviewed & are unremarkable except as noted in HPI & below Physical Exam Physical Exam: General: patient resting comfortably, NAD, non-toxic in appearance, AA&O x 4 Skin: warm, dry, intact, thickening of skin on bilateral LE HEENT: NC/AT, PERRL, EOMI, anicteric sclera, conjunctiva without injection, external ear normal to inspection and nontender, nares patent, moist mucus membranes, dentition intact, no oropharyngeal lesions, neck supple, trachea midline, no LAD, no thyromegaly, +JVD to earlobe noted on right Heart: +S1/S2, regular, no m/r/g Lungs: equal air entry bilaterally, +crackles in bilateral bases Abd: obese, +BS, soft, NT/ND, no masses/organomegaly/ascites Ext: warm, 2+ pulses in UE/LE bilaterally, no clubbing/cyanosis, 3+ edema bilaterally Neuro: nonfocal, patient AA&O x 4, speech intact, no facial droop, moving all extremities on command with equal strength 5/5 Results & Data Results & Data ([facility]) Vital Signs (Past 12 Hours) Vital Signs Temp Pulse Pulse Resp BP BP Pulse Ox 08/05/20 01:24 78 20 144/83 H 96 08/04/20 23:55 80 18 174/69 H 98 08/04/20 22:30 87 L 08/04/20 22:19 37.3 C 85 22 170/77 H 92 Laboratory Results Lab Results 08/04/20 08/04/20 08/04/20 Range/Units 23:31 23:31 23:31 WBC 9.13 (4.8-10.8) K/uL RBC 3.25 L (4.7-6.1) M/uL Hgb 8.3 L (14.0-18.0) g/dL Hct 27.2 L (42-52) % MCV 83.7 (80-100) fL MCH 25.5 (25-34) pg MCHC 30.5 L (32-36) g/dL RDW Std Deviation 45.8 (36.4-46.3) fL RDW Coeff of Diane 15.0 H (11.5-14.5) % Plt Count 364 (130-400) K/uL MPV 9.4 (7.4-10.4) fL Immature Gran % (Auto) 0.3 % Neut % (Auto) 62.5 % Lymph % (Auto) 24.3 % [place] % (Auto) 7.2 % Eos % (Auto) 5.4 % Baso % (Auto) 0.3 % Neut # (Auto) 5.70 (1.4-6.5) K/uL Lymph # (Auto) 2.22 (1.2-3.4) K/uL [place] # (Auto) 0.66 H (0.11-0.59) K/uL Eos # (Auto) 0.49 (0-0.5) K/uL Baso # (Auto) 0.03 (0-0.2) K/uL Immature Gran # (Auto) 0.03 H (0.00-0.02) K/uL PT 10.9 (9.0-12.0) Seconds INR 1.0 (0.9-1.1) Sodium 135 L (136-145) mmol/L Potassium 4.9 (3.5-5.1) mmol/L Chloride 99 (98-107) mmol/L Carbon Dioxide 27 (21-32) mmol/L Anion Gap 8.0 (3-11) BUN 24 H (7-18) mg/dl Creatinine 1.82 H (0.6-1.4) mg/dl Est Cr Clr Drug Dosing 53.1 ml/min Est GFR ( Amer) 47.7 Est GFR (Non-Af Amer) 41.2 BUN/Creatinine Ratio 13.2 (10-20) Glucose 339 H* (70-99) mg/dl POC Glucose (70-99) mg/dl Calcium 7.9 L (8.5-10.1) mg/dl Magnesium 2.2 (1.8-2.4) mg/dl Total Bilirubin 0.5 (0.2-1) mg/dl AST 10 L (15-37) U/L ALT 13 (12-78) U/L Alkaline Phosphatase 84 (45-117) U/L Troponin I < 0.015 (0-0.045) ng/ml NT-Pro-B Natriuret Pep 1022 H (0-900) pg/ml Total Protein 7.3 (6.4-8.2) gm/dl Albumin 2.7 L (3.4-5.0) gm/dl Globulin 4.6 H (2.5-4.0) gm/dl Albumin/Globulin Ratio 0.6 L (0.9-2) Lipase 49 L (73-393) U/L Beta-Hydroxybutyric Acd 0.76 (0.2-2.81) mg/dl 08/05/20 Range/Units 02:25 WBC (4.8-10.8) K/uL RBC (4.7-6.1) M/uL Hgb (14.0-18.0) g/dL Hct (42-52) % MCV (80-100) fL MCH (25-34) pg MCHC (32-36) g/dL RDW Std Deviation (36.4-46.3) fL RDW Coeff of Diane (11.5-14.5) % Plt Count (130-400) K/uL MPV (7.4-10.4) fL Immature Gran % (Auto) % Neut % (Auto) % Lymph % (Auto) % [place] % (Auto) % Eos % (Auto) % Baso % (Auto) % Neut # (Auto) (1.4-6.5) K/uL Lymph # (Auto) (1.2-3.4) K/uL [place] # (Auto) (0.11-0.59) K/uL Eos # (Auto) (0-0.5) K/uL Baso # (Auto) (0-0.2) K/uL Immature Gran # (Auto) (0.00-0.02) K/uL PT (9.0-12.0) Seconds INR (0.9-1.1) Sodium (136-145) mmol/L Potassium (3.5-5.1) mmol/L Chloride (98-107) mmol/L Carbon Dioxide (21-32) mmol/L Anion Gap (3-11) BUN (7-18) mg/dl Creatinine (0.6-1.4) mg/dl Est Cr Clr Drug Dosing ml/min Est GFR ( Amer) Est GFR (Non-Af Amer) BUN/Creatinine Ratio (10-20) Glucose (70-99) mg/dl POC Glucose 397 H* (70-99) mg/dl Calcium (8.5-10.1) mg/dl Magnesium (1.8-2.4) mg/dl Total Bilirubin (0.2-1) mg/dl AST (15-37) U/L ALT (12-78) U/L Alkaline Phosphatase (45-117) U/L Troponin I (0-0.045) ng/ml NT-Pro-B Natriuret Pep (0-900) pg/ml Total Protein (6.4-8.2) gm/dl Albumin (3.4-5.0) gm/dl Globulin (2.5-4.0) gm/dl Albumin/Globulin Ratio (0.9-2) Lipase (73-393) U/L Beta-Hydroxybutyric Acd (0.2-2.81) mg/dl PG Care Time/CCT Total # of Minutes Spent Total Time Spent with Patient: Total time spent is greater than 50% in coordination of care (as documented) at patient's floor/unit and/or counseling patient: Coding Level of Care Code 96629 Initial Inpt Care Lvl 3 Diagnoses Dyspnea R06.02 Dyspnea type: shortness of breath Hyperglycemia R73.9 CKD (chronic kidney disease) N18.9 Chronic kidney disease stage: unspecified stage Anemia D64.9 Anemia type: unspecified type Leg edema R60.0 WHIT (obstructive sleep apnea) G47.33 Hypertension I10 Hypertension type: essential hypertension Dyslipidemia E78.5 Diabetes E11.621; L97.509; Z79.4 Diabetes mellitus type: type 2 Diabetes mellitus half-way insulin use: with half-way use Diabetes mellitus complication status: with skin complications Diabetes mellitus complication detail: with foot ulcer (1) Dyspnea Dyspnea type: shortness of breath Qualified Code(s): R06.02 - Shortness of breath (2) CKD (chronic kidney disease) Chronic kidney disease stage: unspecified stage Qualified Code(s): N18.9 - Chronic kidney disease, unspecified (3) Anemia Anemia type: unspecified type Qualified Code(s): D64.9 - Anemia, unspecified (4) Hypertension Hypertension type: essential hypertension Qualified Code(s): I10 - Essential (primary) hypertension (5) Diabetes Diabetes mellitus type: type 2 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
[2020-08-05] MEDS ORDERED: GLUCOSE 40% GEL 15 GM TUBE PO PRN (03:04)
[2020-08-05] MEDS ORDERED: GLUCAGON FOR INJ 1 MG VIAL SQ PRN (03:04)
[2020-08-05] MEDS ORDERED: DEXTROSE 50% 50 ML SYRINGE IV PRN (03:04)
[2020-08-05] MEDS ORDERED: POLYETHYLENE (MIRALAX) 17 GM PACK PO PRN (03:04)
[2020-08-05] MEDS ORDERED: TRAMADOL HCL 50 MG TABLET PO PRN (03:04)
[2020-08-05] MEDS ORDERED: GLUCOSE 10 TABS/TUBE PO PRN (03:04)
[2020-08-05] MEDS ORDERED: ONDANSETRON INJ 2 MG/ML 2 ML VIAL IV PRN (03:04)
[2020-08-05] MEDS ORDERED: CARBOHYDRATES FOR HYPOGLYCEMIA PO PRN (03:04)
[2020-08-05] MEDS ORDERED: PHARMACY GLYCEMIC MGMT CONSULT PRN (03:21)
[2020-08-05] MEDS ORDERED: INSULIN HUMAN REGULAR PER UNIT 10 UNITS in SYRINGE 9.9 ML IV ONE (03:45)
[2020-08-05 03:46] LABS: Phosphorus 3.6 mg/dl (2.5-4.9)
[2020-08-05] MEDS: INSULIN ASPART 100 UNITS/ML 3 ML PEN SC SCH ×5 (04:54→20:59)
[2020-08-05] MEDS: HEPARIN SOD 5,000 UNIT/0.5 ML VIAL SQ SCH ×3 (06:26→21:01)
--- NOTE | 2020-08-05 06:43 | XRay Report ---
XR chest 1V portable HISTORY: 55 years-old Male sob, hypoxia acute shortness of breath with congestive heart failure and hypoxia COMPARISON: Chest radiograph 03/26/2020 TECHNIQUE: Portable AP view of the chest FINDINGS: Cardiac silhouette is enlarged. Pulmonary vascular congestion with interstitial coarsening. Mild biba silar densities suggestive of atelectasis. No pneumothorax, large pleural effusion or lobar airspace consolidation. Degenerative changes of the shoulders and spine. IMPRESSION: Cardiomegaly and pulmonary vascular congestion with interstitial coarsening suggestive of pulmonary edema. ACT 112: Negative or not required by law. The above report was generated using voice recognition software. It may contain grammatical, syntax o r spelling errors. Electronically signed by: Wyatt Bautista M.D. 08/05/2020 6:42 AM
[2020-08-05 07:06] LABS: BUN Creatinine Ratio 13.8 (10-20); Calcium 8.5 mg/dl (8.5-10.1); Creatinine Clr Calc Pharmacy 59.8 ml/min; Est GFR (African American) 51.8; Est GFR (Non-African American) 44.7; Magnesium 2.4 mg/dl (1.8-2.4); Potassium 4.2 mmol/L (3.5-5.1)
[2020-08-05 08:04] LABS: Estimated Average Glucose 177 mg/dl; Hemoglobin A1C 7.8 % (4.5-5.6)
[2020-08-05] MEDS: FLUTICASONE PROPIONATE NA SPR 16 GM BTL SCH ×2 (08:09→21:02)
[2020-08-05] MEDS: ASPIRIN 81 MG ECTAB PO SCH ×2 (08:09→21:00)
[2020-08-05] MEDS: FUROSEMIDE 60 MG in SYRINGE 0 ML IV SCH ×2 (08:09→21:00)
[2020-08-05] MEDS: GABAPENTIN 600 MG TAB PO SCH ×3 (08:09→21:00)
[2020-08-05] MEDS: ACETAMINOPHEN 325 MG TAB PO PRN (08:16)
--- NOTE | 2020-08-05 14:13 | Pharmacy Report ---
Pharmacy Glycemic Short Note 2 - Date of Service August 05, 2020 - Glycemic Short BSG Results (Last 24 hours): 08/04/20 08/05/20 08/05/20 23:31 02:25 04:49 Glucose 339 H* POC Glucose 397 H* 395 H* 08/05/20 08/05/20 08/05/20 04:51 06:21 07:37 Glucose 175 H POC Glucose 394 H* 149 H 08/05/20 11:52 Glucose POC Glucose 192 H OUTPATIENT ANTIDIABETIC REGIMEN: * Lantus 25 units QPM * U500 40 units with breakfast and lunch, 55 units with dinner * TDD: 160 units/day * A1c 7.8% 08/05/20 ASSESSMENT: * Mr. Swartz's A1c greatly improved from last visit, total daily insulin req uirement is less than previous as well. Patient maintained on U500 insulin + lantus outpatient. * Will use lantus/novolog basal bolus, as known to glycemic service. Will begin with stress of two novolog dosing based on current outpatient total daily dose and lantus dose that is slightly reduced from this PLAN FOR INPATIENT GLYCEMIC CONTROL: * Hold outpatient oral diabetes medications * Basal insulin * Lantus 25-75 units scale for PM * Bolus insulin * NovoLog per scale ACHS or Q6hrs while NPO * Goal Range: Low 110 mg/dL - High 140 mg/dL * Correction Factor: 10 mg/dL/unit * Nutritional / Prandial insulin per carb ratio of 1 unit per 3 grams CHO consumed
[2020-08-05 16:53] LABS: BUN Creatinine Ratio 14.6 (10-20); Calcium 9.1 mg/dl (8.5-10.1); Creatinine Clr Calc Pharmacy 63.2 ml/min; Est GFR (African American) 55.4; Est GFR (Non-African American) 47.8; Potassium 4.9 mmol/L (3.5-5.1)
[2020-08-05] MEDS: INSULIN GLARGINE SOLOSTAR 100 UNITS/ML 3 ML PEN SQ SCH ×2 (20:58→21:20)
[2020-08-05] MEDS ORDERED: INSULIN GLARGINE SOLOSTAR 100 UNITS/ML 3 ML PEN SQ SCH (21:00)
[2020-08-05] MEDS: ATORVASTATIN 40 MG TAB PO SCH (21:00)
[2020-08-05] MEDS: CYANOCOBALAMIN 500 MCG TABLET (VITAMIN B-12) PO SCH (21:00)
[2020-08-05] MEDS: PANTOprazole 40 MG TAB PO SCH (21:00)
[2020-08-05] MEDS: METOPROLOL SUCC 50MG EXT REL TAB PO SCH (21:00)
[2020-08-05] MEDS: MAGNESIUM OXIDE 400 MG TAB PO SCH (21:00)
[2020-08-06] MEDS: INSULIN ASPART 100 UNITS/ML 3 ML PEN SC SCH ×8 (00:02→23:40)
[2020-08-06] MEDS: HEPARIN SOD 5,000 UNIT/0.5 ML VIAL SQ SCH ×3 (05:57→20:51)
[2020-08-06 07:42] LABS: Basophils # (auto) 0.05 K/uL (0-0.2); Basophils % (auto) 0.6 %; Eosinophils # (auto) 0.58 K/uL (0-0.5); Eosinophils % (auto) 6.9 %; Hematocrit (blood only) 28.3 % (42-52); Hemoglobin 8.9 g/dL (14.0-18.0); Immature Granulocytes # (auto) 0.02 K/uL (0.00-0.02); Immature Granulocytes % (auto) 0.2 %; Lymphocytes # (auto) 2.61 K/uL (1.2-3.4); Lymphocytes % (auto) 30.9 %; Mean Corpuscular Hemoglobin 25.9 pg (25-34); Mean Corpuscular Hgb Conc 31.4 g/dL (32-36); Mean Corpuscular Volume 82.5 fL (80-100); Mean Platelet Volume 9.1 fL (7.4-10.4); Monocytes % (auto) 7.1 %; Neutrophils # (auto) 4.59 K/uL (1.4-6.5); Neutrophils % (auto) 54.3 %; Platelet Count 373 K/uL (130-400); RDW Coefficient of Variation 14.7 % (11.5-14.5); Red Blood Count 3.43 M/uL (4.7-6.1); White Blood Count 8.45 K/uL (4.8-10.8)
[2020-08-06] MEDS: GABAPENTIN 600 MG TAB PO SCH ×3 (07:46→20:54)
[2020-08-06] MEDS: ASPIRIN 81 MG ECTAB PO SCH ×2 (07:46→20:50)
[2020-08-06] MEDS: FLUTICASONE PROPIONATE NA SPR 16 GM BTL SCH ×2 (07:47→20:47)
[2020-08-06] MEDS: FUROSEMIDE 60 MG in SYRINGE 0 ML IV SCH ×2 (07:55→20:50)
[2020-08-06 08:59] LABS: BUN Creatinine Ratio 14.1 (10-20); Calcium 9.3 mg/dl (8.5-10.1); Creatinine Clr Calc Pharmacy 67.1 ml/min; Est GFR (African American) 59.3; Est GFR (Non-African American) 51.2; Magnesium 2.5 mg/dl (1.8-2.4); Potassium 4.3 mmol/L (3.5-5.1)
[2020-08-06] MEDS ORDERED: INSULIN GLARGINE SOLOSTAR 100 UNITS/ML 3 ML PEN SC ONE (09:00)
[2020-08-06 09:03] LABS: Ferritin 136.7 ng/ml (8-388)
[2020-08-06 10:42] LABS: Folate (Folic Acid) 8.49 ng/ml (>5.38)
--- NOTE | 2020-08-06 12:17 | Surgery Consultation ---
Date of Consultation August 06, 2020 Assessment & Plan (1) Foot ulcer: Will discuss bedside debridement with Dr. Patel. Supervising Physician Co-Signing Physician Notes -Patient seen and examined -He has long standing history of left foot ulcer, likely diabetic given his history -Has been following with [facility] in [place] for his wound care -Necrotic tissue was debrided at bedside -States he had vascular workup at [facility], but will repeat arterial studies here -Will order MRI of left foot to look for osteomyelitis -Will start Santyl daily to wound base, offload ulcer as much as possible -Would recommend Ortho consult as wound will likely need operative debridement at some point History of Present Illness Attending Physician: Modesta Duval DO History of Present Illness 55 y/o diabetic male admitted overnight for dyspnea. Has LLE edema, also left foot wound that has been present for several months. Has seen wound care at the [facility]. Wound care recommended surgical consult. Allergies Allergy/AdvReac Type Severity Reaction Status Date / Time amitriptyline AdvReac Mild muscle Verified 08/05/20 00:32 twitching hydralazine AdvReac Mild Rash Verified 08/05/20 00:32 Home Medications Home Medications Medication Instructions Recorded Confirmed Type atorvastatin 80 mg PO QPM 08/02/18 08/05/20 History magnesium oxide 400 mg PO QPM 08/02/18 08/05/20 History metoprolol succinate 150 mg PO QPM 08/02/18 08/05/20 History omega 8-cnu-vgp-fish oil [Fish Oil] 1 cap PO QPM 02/20/19 08/05/20 History omeprazole 20 mg PO QPM #0 cap 08/14/19 08/05/20 Rx insulin glargine 100 unit/mL 25 units SUBCUT QPM ml 08/30/19 08/05/20 History subcutaneous solution cholecalciferol (vitamin D3) 25 2,000 units PO QPM tab 11/19/19 08/05/20 History mcg (1,000 unit) chewable tablet cyanocobalamin (vitamin B-12) 1,000 mcg PO QPM tab 11/19/19 08/05/20 History 1,000 mcg tablet gabapentin 600 mg PO TID 12/06/19 08/05/20 History polyethylene glycol 3350 17 17 gm PO BID PRN #510 gm 12/23/19 08/05/20 Rx gram/dose oral powder aspirin 81 mg tablet,delayed 81 mg PO BID tab 01/16/20 08/05/20 History release tramadol 50 mg PO Q6H PRN 02/21/20 08/05/20 History Probiotic 3,000 mmu cells PO QAM 03/26/20 08/05/20 History Humulin R U-500 (Conc) Kwikpen 40 unit SUBCUT AMPM 05/05/20 08/05/20 History Humulin R U-500 (Conc) Kwikpen 55 unit SUBCUT QPM 05/05/20 08/05/20 History fluticasone propionate [Flonase 1 spray INTRANASAL BID 05/05/20 08/05/20 History Allergy Relief] furosemide 60 mg PO HS 06/12/20 08/05/20 History metolazone 2.5 mg PO 2XWK 06/12/20 08/05/20 History Patient History Medical History COSMO (acute kidney injury) Hospitalized 07/2019 at [facility] for this and hyperkalemia (K+ >7)with bradycardia. Required emergent acbzyumn-[id number] DIALYSIS SINCE-F/U DR CASTRO Arthritis Chronic back pain Chronic kidney disease Stage IIIB/4 chronic kidney disease, baseline creatinine variable from 1.8- 3.5 Wide fluctuation based upon volume status and diuretic use. Following c losely with nephrology. Diabetes Diastolic CHF Previously noted in history, but heart failure clinic note from 06/2019 states volume overload not cardiac related. Displaced bimalleolar fracture of left ankle Diverticular disease Dyslipidemia Dyspnea ANY EXERTION GERD (gastroesophageal reflux disease) HLD (hyperlipidemia) Hyperkalemia Patient has been seen in ED twice last year for issues r/t this; some noncompliance issues with medications per record review; patient is following closely with nephrology. Hypertension Osteoarthritis Sleep apnea cpap Temporomandibular joint disorder CLICKS ON OCC NO LOCKING Surgical History History of open reduction and internal fixation (ORIF) procedure Left ankle Bimalleolar Fracture (11/2019) History of tonsillectomy and adenoidectomy Hx of cataract surgery right and left Hx of colonoscopy [place] teeth extracted Family History Father Diabetes Mother Diabetes Other Coronary heart disease Hypertension Denies family history of Crohn's disease Kidney disease Colorectal cancer Ulcerative colitis Social History Smoking Status: Former smoker Tobacco Type: Cigarettes Second Hand Exposure: No; Do You Dip or Chew Tobacco: No; Hx Alcohol Use: No Hx Substance Use: No Preferred Language: Botswanan Communication Ability: Effective Blacksmith Assistant Required: No Beliefs That Will Affect Care: None marital status: Current Living Situation: Spouse Current Living Situation Comment: Four children, grown & in good health current occupational status: employed 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 Feels Safe at Home: Yes Assistive Devices: CPAP and Oxygen - Continuous Review of Systems Constitutional: no fever and no chills Physical Exam Constitutional: + obese Cardiovascular: Extremities: + edema (3+ LLE, quarter sized necrotic ulcer plantar surface) Results & Data ([facility]) Vital Signs (Past 12 Hours) Vital Signs Temp Pulse Resp BP BP Pulse Ox 08/06/20 11:40 36.7 C 61 16 155/74 H 98 08/06/20 07:49 36.6 C 65 18 145/66 H 93 08/06/20 03:00 36.6 C 64 18 152/75 H 94 PG Care Time/CCT Total # of Minutes Spent Total Time Spent with Patient: Total time spent is greater than 50% in coordination of care (as documented) at patient's floor/unit and/or counseling patient: Coding Level of Care Code 93060 Inpt Consult Level 2 Diagnoses Foot ulcer L97.509
--- NOTE | 2020-08-06 14:39 | Pharmacy Report ---
Pharmacy Glycemic Short Note 2 - Date of Service August 06, 2020 - Glycemic Short BSG Results (Last 24 hours): 08/05/20 08/05/20 08/05/20 16:14 16:48 20:29 Glucose 185 H POC Glucose 213 H 235 H 08/05/20 08/06/20 08/06/20 23:48 04:26 07:11 Glucose 196 H POC Glucose 213 H 270 H 08/06/20 08/06/20 07:24 11:38 Glucose POC Glucose 224 H 186 H OUTPATIENT ANTIDIABETIC REGIMEN: * Lantus 25 units QPM * U500 40 units with breakfast and lunch, 55 units with dinner * TDD: 160 units/day * A1c 7.8% 08/05/20 ASSESSMENT: 08/06: * Patient received ~116 units of insulin yesterday, hyperglycemic overnight with high fasting in AM. Patient not comfortable with taking more than 25 units of lantus at night d/t concern for hypoglycemia, therefore will split lantus into BID dosing. He received an additional 25 units this morning. * Will continue current novolog parameters as lunch BSG improved today. Will continue overnight checks. * After discussion with clinical document improvement educator patient reports he was taking U500 as one dose at bedtime (80 units) and not earlier in the day d/t concern with hypoglycemic at work. 08/05: * Mr. Swartz's A1c greatly improved from last visit, total daily insulin requirement is less than previous as well. Patient maintained on U500 insulin + lantus outpatient. * Will use lantus/novolog basal bolus, as known to glycemic service. Will begin with stress of two novolog dosing based on current outpatient total daily dose and lantus dose that is slightly reduced from this PLAN FOR INPATIENT GLYCEMIC CONTROL: * Hold outpatient oral diabetes medications * Basal insulin * Lantus 15-25 units BID * Bolus insulin * NovoLog per scale ACHS or Q6hrs while NPO * Goal Range: Low 110 mg/dL - High 140 mg/dL * Correction Factor: 10 mg/dL/unit * Nutritional / Prandial insulin per carb ratio of 1 unit per 3 grams CHO consumed
--- NOTE | 2020-08-06 15:27 | Ultrasound Report ---
BILATERAL LOWER EXTREMITY ARTERIAL DOPPLER ULTRASOUND CLINICAL HISTORY: Foot ulcers. COMPARISON STUDY: No previous studies for comparison. TECHNIQUE: Bilateral ankle to brachial indices were obtained. Grayscale, color and duplex Doppler son ography of the lower extremities was then performed. FINDINGS: The right ankle to brachial index measured 1.12 when using posterior tibial artery and 1.17 when using the dorsalis pedis. The left ankle to brachial index measured 1.05 when using posterior t ibial artery and 1.18 when using the dorsalis pedis. No elevated velocities were identified within th e lower extremities. The vessels were patent. There is mild atherosclerotic plaque within the lower e xtremities. Note was made of triphasic flow within the right common femoral, superficial femoral, pop liteal, anterior tibial, posterior tibial and dorsalis pedis vessels. There is triphasic flow within the left common femoral, superficial femoral, popliteal, anterior tibial and posterior tibial arterie s. There was biphasic flow within the left peroneal artery and monophasic flow within the left dorsal is pedis. IMPRESSION: 1. Normal bilateral ankle to brachial indices. 2. Mild atherosclerotic plaque within the lower extremities. 3. Triphasic flow throughout the right lower extremity. Biphasic flow within the left peroneal artery and monophasic flow within the left dorsalis pedis. Otherwise, triphasic flow within the left lower extremity. ACT 112: Negative or not required by law. Electronically signed by: Rafat Powell M.D. 08/06/2020 3:25 PM
[2020-08-06] MEDS: METOPROLOL SUCC 50MG EXT REL TAB PO SCH (16:18)
[2020-08-06 17:18] LABS: Calcium 9.5 mg/dl (8.5-10.1); Creatinine Clr Calc Pharmacy 65.8 ml/min; Potassium 4.3 mmol/L (3.5-5.1)
--- NOTE | 2020-08-06 17:58 | Hospitalist Progress Note ---
Date of Service August 06, 2020 Assessment & Plan (1) Dyspnea: Patient with hypoxia, 87% on room air, improved with supplemental O2. Dyspnea ?secondary to volume overload - multifactorial, CHF, renal dysfunction, lymphedema. Patient reports his last known dry weight appx 6 months ago was 247# -Admit to medical floor -Lasix 60mg IV BID -Monitor BID BMP and daily Mag, electrolyte repletion as needed, careful attention to renal function -Daily weights, strict I/O monitoring (2) Hyperglycemia: Elevated blood sugar, poorly controlled DM -Continue insulin - Lantus 25u qHS, ISS -Glycemic management consultation appreciated A1c 7.8 (3) CKD (chronic kidney disease): Near baseline renal function. Electrolytes stable -Monitor BID BMP -Renal dosing -Avoid nephrotoxic agents (4) Anemia: Slow decline in H/H. Normochromic/normocytic. No obvious source of bleed. ?if anemia is contributing to overall symptoms of dyspnea. ?utility of IV iron infusions in anemic patient with CHF -Continue to monitor Iron low normal despite low normal MCV B12 is low normal at 332 with folate WNL Listed on home meds Start B12 injections (5) Leg edema: Chronic. Stable -Diuresis as above -Encourage elevation (6) WHIT (obstructive sleep apnea): Chronic -CPAP [id number] qHS (7) Hypertension: Blood pressure elevated -Continue home medications, Metoprolol -Continue to monitor (8) Dyslipidemia: Chronic -Continue Atorvastatin (9) Diabetes: As above -Lantus, ISS -Goal blood sugar 100 - 140 -Glycemic management consultation appreciated Ppx - Heparin. Code - Full Dispo - Admit to medical with telemetry (10) Foot ulcer: Seen by wound care nursing and felt more advanced than wound care issues, recs for gen surg c/s Gen surg also feels more advanced than their scope LE US noted as triphasic in most regions other than biphasic in L peroneal and monophasic in L dorsalis pedis MRI pending Ortho c/s pending, pt has been seen by Dr. Bernardo in November for L ankle fx repair Admission and Anticipated Discharge Date Admission Date: August 05, 2020 Subjective Pt feels overall improved. He has SOB with ambulation, but no longer while at rest. His LE swelling around his knees is better, but feels ongoing around his feet. Pt denies fever, chest pain, abd pain, n/v/c/d, LE pain. Review of Systems Review of Systems: Pertinent positives and negatives reviewed in HPI--all others negative Physical Exam Constitutional: WD/WN, vitals as above Eyes: normal visual thomas by confrontation and + anicteric sclerae Neck: normal visual inspection and trachea midline Respiratory: normal respiratory effort, lungs clear to auscultation Cardiovascular: Rate/Rhythm: regular rate and regular rhythm Extremities: + edema (2+ in lower legs) Gastrointestinal (Abdomen): Inspection/Auscultation: abdomen not distended Percussion/Palpation: abdomen soft; abdomen nontender Musculoskeletal: Head/Neck/Chest: normocephalic and head atraumatic Skin: no rashes, warm and dry Neurologic: awake; not confused Speech / Cognition: normal speech Psychiatric: A+Ox3, euthymic affect Results & Data Results & Data ([facility]) Vital Signs (Past 12 Hours) Vital Signs Temp Pulse Resp BP Pulse Ox 08/06/20 16:16 64 08/06/20 16:09 181/82 H 08/06/20 15:38 36.7 C 64 20 183/89 H 99 08/06/20 11:40 36.7 C 61 16 155/74 H 98 08/06/20 07:49 36.6 C 65 18 145/66 H 93 PG Care Time/CCT Total # of Minutes Spent Total Time Spent with Patient: Total time spent is greater than 50% in coordination of care (as documented) at patient's floor/unit and/or counseling patient: Coding Level of Care Code 84702 Subseq Hosp Care Lvl 3 Diagnoses Dyspnea R06.02 Dyspnea type: shortness of breath Hyperglycemia R73.9 CKD (chronic kidney disease) N18.9 Chronic kidney disease stage: unspecified stage Anemia D64.9 Anemia type: unspecified type Leg edema R60.0 WHIT (obstructive sleep apnea) G47.33 Hypertension I10 Hypertension type: essential hypertension Dyslipidemia E78.5 Diabetes E11.621; L97.509; Z79.4 Diabetes mellitus type: type 2 Diabetes mellitus roasterman insulin use: with roasterman use Diabetes mellitus complication status: with skin complications Diabetes mellitus complication detail: with foot ulcer Foot ulcer L97.509 (1) Dyspnea Dyspnea type: shortness of breath Qualified Code(s): R06.02 - Shortness of breath (2) CKD (chronic kidney disease) Chronic kidney disease stage: unspecified stage Qualified Code(s): N18.9 - Chronic kidney disease, unspecified (3) Anemia Anemia type: unspecified type Qualified Code(s): D64.9 - Anemia, unspecified (4) Hypertension Hypertension type: essential hypertension Qualified Code(s): I10 - Essential (primary) hypertension (5) Diabetes Diabetes mellitus type: type 2 Diabetes mellitus roasterman insulin use: with roasterman use Diabetes mellitus complication status: with skin complications Diabetes mellitus complication detail: with foot ulcer Qualified Code(s): E11.621 - Type 2 diabetes mellitus with foot ulcer; L97.509 - Non-pressure chronic ulcer of other part of unspecified foot with unspecified severity; Z79.4 - residential (current) use of insulin
[2020-08-06] MEDS: CYANOCOBALAMIN 1000 MCG/ML VIAL IM SCH (19:01)
[2020-08-06] MEDS: INSULIN GLARGINE SOLOSTAR 100 UNITS/ML 3 ML PEN SQ SCH (20:48)
[2020-08-06] MEDS: ATORVASTATIN 40 MG TAB PO SCH (20:50)
[2020-08-06] MEDS: PANTOprazole 40 MG TAB PO SCH (20:51)
[2020-08-06] MEDS: CYANOCOBALAMIN 500 MCG TABLET (VITAMIN B-12) PO SCH (20:51)
[2020-08-06] MEDS: MAGNESIUM OXIDE 400 MG TAB PO SCH (20:51)
[2020-08-06] MEDS ORDERED: GADOBUTROL 65ML VIAL IV ONE (22:48)
[2020-08-07] MEDS: INSULIN ASPART 100 UNITS/ML 3 ML PEN SC SCH ×5 (04:27→22:18)
[2020-08-07] MEDS: HEPARIN SOD 5,000 UNIT/0.5 ML VIAL SQ SCH ×3 (04:28→22:19)
--- NOTE | 2020-08-07 08:03 | Magnetic Resonance Report ---
MR forefoot LT wo/w con CLINICAL HISTORY: Soft tissue ulcer. Possible osteomyelitis. COMPARISON STUDY: No previous studies for comparison. FINDINGS: Images were acquired in the axial, sagittal, and coronal planes, before and after the administration of 11 cc intravenous Gadavist There is pronounced dorsal soft tissue edema. There is susceptibility artifact secondary to hardware within the ankle. There is a prominent lateral soft tissue ulceration adjacent the base of the fifth metatarsal. There is very subtle T1 and T2 marrow edema subjacent to the soft tissue ulcer. The findings are sugg estive of very early osteomyelitis There is T2 marrow edema involving the lateral cuneiform, navicular, base of second metatarsal, base of the third metatarsal, and fourth metatarsal shaft. These areas are remote from the ulceration and likely are on a stress related/arthritic basis. Arthritic changes are present within the midfoot. IMPRESSION: 1. Large soft tissue ulceration adjacent to the base of the fifth metatarsal 2. Tiny focus of T1 and T2 marrow edema within the base the fifth metatarsal subjacent soft tissue ul ceration. The findings are suggestive of very early osteomyelitis 3. No evidence of abscess 4. Additional areas of marrow edema involving the lateral cuneiform, navicular, base the second metat arsal, base of the third metatarsal, and fourth metatarsal shaft are remote from the ulceration and a re likely stress related/arthritic basis. 5. Pronounced dorsal soft tissue edema ACT 112: Negative or not required by law. Electronically signed by: Kayode Soto M.D. 08/07/2020 8:01 AM
[2020-08-07] MEDS: GABAPENTIN 600 MG TAB PO SCH ×3 (08:39→22:27)
[2020-08-07] MEDS: CYANOCOBALAMIN 1000 MCG/ML VIAL IM SCH (08:39)
[2020-08-07] MEDS: ASPIRIN 81 MG ECTAB PO SCH ×2 (08:40→22:28)
[2020-08-07] MEDS: FUROSEMIDE 60 MG in SYRINGE 0 ML IV SCH ×2 (08:40→22:24)
[2020-08-07] MEDS: FLUTICASONE PROPIONATE NA SPR 16 GM BTL SCH ×2 (08:40→22:25)
[2020-08-07] MEDS: INSULIN GLARGINE SOLOSTAR 100 UNITS/ML 3 ML PEN SQ SCH ×2 (08:41→22:19)
[2020-08-07] MEDS: COLLAGENASE OINT 30 GM TUBE EXT SCH (08:41)
--- NOTE | 2020-08-07 11:57 | Electrocardiogram Report ---
Test Reason : Blood Pressure : / mmHG Vent. Rate : 089 BPM Atrial Rate : 089 BPM P-R Int : 176 ms QRS Dur : 088 ms QT Int : 350 ms P-R-T Axes : 062 -54 066 degrees QTc Int : 425 ms Normal sinus rhythm Left axis deviation Abnormal ECG When compared with ECG of 25-MAR-2020 23:18, Criteria for Inferior infarct are no longer Present Confirmed by Immanuel Atkins ([id number]) on 08/07/2020 11:57:01 AM Referred By: REFERRED SELF Confirmed By:Immanuel Atkins
--- NOTE | 2020-08-07 13:31 | Hospitalist Progress Note ---
Date of Service August 07, 2020 Assessment & Plan (1) Dyspnea: Patient with hypoxia, 87% on room air, improved with supplemental O2. Dyspnea ?secondary to volume overload - multifactorial, CHF, renal dysfunction, lymphedema. Patient reports his last known dry weight appx 6 months ago was 247# -Admit to medical floor -Lasix 60mg IV BID -Monitor BID BMP and daily Mag, electrolyte repletion as needed, careful attention to renal function -Daily weights, strict I/O monitoring (2) Hyperglycemia: Elevated blood sugar, poorly controlled DM -Continue insulin - Lantus 25u qHS, ISS -Glycemic management consultation appreciated A1c 7.8 (3) CKD (chronic kidney disease): Near baseline renal function. Electrolytes stable -Monitor BID BMP -Renal dosing -Avoid nephrotoxic agents (4) Anemia: Slow decline in H/H. Normochromic/normocytic. No obvious source of bleed. ?if anemia is contributing to overall symptoms of dyspnea. ?utility of IV iron infusions in anemic patient with CHF -Continue to monitor Iron low normal despite low normal MCV B12 is low normal at 332 with folate WNL Listed on home meds Start B12 injections 08/06 (5) Leg edema: Chronic. Stable -Diuresis as above -Encourage elevation (6) WHIT (obstructive sleep apnea): Chronic -CPAP [id number] qHS (7) Hypertension: Blood pressure elevated -Continue home medications, Metoprolol -Continue to monitor (8) Dyslipidemia: Chronic -Continue Atorvastatin (9) Diabetes: As above -Lantus, ISS -Goal blood sugar 100 - 140 -Glycemic management consultation appreciated Ppx - Heparin. Code - Full Dispo - Admit to medical with telemetry (10) Foot ulcer: Seen by wound care nursing and felt more advanced than wound care issues, recs for gen surg c/s Gen surg also feels more advanced than their scope LE US noted as triphasic in most regions other than biphasic in L peroneal and monophasic in L dorsalis pedis MRI noted for "very early" osteo in 5th metatarsal Ortho c/s pending, pt has been seen by Dr. Bernardo in November for L ankle fx repair Admission and Anticipated Discharge Date Admission Date: August 05, 2020 Subjective Pt still with SOB with ambulation, but no longer while at rest and his LYMAN is improving. His LE swelling around his knees is better, but feels ongoing around his feet. Ongoing foot pain when standing or walking. Pt denies fever, chest pain, abd pain, n/v/c/d. Review of Systems Review of Systems: Pertinent positives and negatives reviewed in HPI--all others negative Physical Exam Constitutional: WD/WN, vitals as above Eyes: normal visual thomas by confrontation and + anicteric sclerae Neck: normal visual inspection and trachea midline Respiratory: normal respiratory effort, lungs clear to auscultation Cardiovascular: Rate/Rhythm: regular rate and regular rhythm Extremities: + edema (2+ in lower legs) Gastrointestinal (Abdomen): Inspection/Auscultation: abdomen not distended Percussion/Palpation: abdomen soft; abdomen nontender Musculoskeletal: Head/Neck/Chest: normocephalic and head atraumatic Skin: no rashes, warm and dry Neurologic: awake; not confused Speech / Cognition: normal speech Psychiatric: A+Ox3, euthymic affect Results & Data Results & Data ([facility]) Vital Signs (Past 12 Hours) Vital Signs Temp Pulse Pulse Resp BP BP Pulse Ox 08/07/20 11:27 68 20 158/74 H 94 08/07/20 07:24 36.6 C 66 20 158/80 H 91 08/07/20 07:22 62 08/07/20 04:23 37.2 C 60 18 145/67 H 91 PG Care Time/CCT Total # of Minutes Spent Total Time Spent with Patient: Total time spent is greater than 50% in c oordination of care (as documented) at patient's floor/unit and/or counseling patient: Coding Level of Care Code 27238 Subseq Hosp Care Lvl 3 Diagnoses Dyspnea R06.02 Dyspnea type: shortness of breath Hyperglycemia R73.9 CKD (chronic kidney disease) N18.9 Chronic kidney disease stage: unspecified stage Anemia D64.9 Anemia type: unspecified type Leg edema R60.0 WHIT (obstructive sleep apnea) G47.33 Hypertension I10 Hypertension type: essential hypertension Dyslipidemia E78.5 Diabetes E11.621; L97.509; Z79.4 Diabetes mellitus type: type 2 Diabetes mellitus termination clerk insulin use: with termination clerk use Diabetes mellitus complication status: with skin complications Diabetes mellitus complication detail: with foot ulcer Foot ulcer L97.509 (1) Dyspnea Dyspnea type: shortness of breath Qualified Code(s): R06.02 - Shortness of breath (2) CKD (chronic kidney disease) Chronic kidney disease stage: unspecified stage Qualified Code(s): N18.9 - Chronic kidney disease, unspecified (3) Anemia Anemia type: unspecified type Qualified Code(s): D64.9 - Anemia, unspecified (4) Hypertension Hypertension type: essential hypertension Qualified Code(s): I10 - Essential (primary) hypertension (5) Diabetes Diabetes mellitus type: type 2 Diabetes mellitus half-way insulin use: with half-way use Diabetes mellitus complication status: with skin complications Diabetes mellitus complication detail: with foot ulcer Qualified Code(s): E11.621 - Type 2 diabetes mellitus with foot ulcer; L97.509 - Non-pressure chronic ulcer of other part of unspecified foot with unspecified severity; Z79.4 - 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
--- NOTE | 2020-08-07 14:12 | Pharmacy Report ---
Pharmacy Glycemic Short Note 2 - Date of Service August 07, 2020 - Glycemic Short BSG Results (Last 24 hours): 08/06/20 08/06/20 08/06/20 16:34 16:34 20:18 Glucose 137 H POC Glucose 171 H 134 H 08/06/20 08/06/20 08/07/20 23:36 23:58 04:20 Glucose POC Glucose 169 H 191 H 232 H 08/07/20 08/07/20 07:56 11:41 Glucose POC Glucose 212 H 218 H OUTPATIENT ANTIDIABETIC REGIMEN: * Lantus 25 units QPM * U500 40 units with breakfast and lunch, 55 units with dinner * TDD: 160 units/day * A1c 7.8% 08/05/20 ASSESSMENT: 08/07: * Pt received 125 units of insulin yesterday: * 40 of basal * 85 of correctional/prandial * BSGs [phone] mg/dl * Regimen more heavily weight to prandial/correctional- will continue to titrate lantus up- patient was only comfortable with taking 25 units at night, will set scale up to 30 units tonight if patient agreeable, otherwise continue to titrate up morning dose * Prandial BSGs acceptable yesterday, elevated at lunch today however, insulin administration later in morning (late breakfast). Will continue current parameters, overnight BSGS 08/06: * Patient received ~116 units of insulin yesterday, hyperglycemic overnight with high fasting in AM. Patient not comfortable with taking more than 25 units of lantus at night d/t concern for hypoglycemia, therefore will split lantus into BID dosing. He received an additional 25 units this morning. * Will continue current novolog parameters as lunch BSG improved today. Will continue overnight checks. * After discussion with clinical document improvement educator patient reports he was taking U500 as one dose at bedtime (80 units) and not earlier in the day d/t concern with hypoglycemic at work. 08/05: * Mr. Swartz's A1c greatly improved from last visit, total daily insulin requirement is less than previous as well. Patient maintained on U500 insulin + lantus outpatient. * Will use lantus/novolog basal bolus, as known to glycemic service. Will begin with stress of two novolog dosing based on current outpatient total daily dose and lantus dose that is slightly reduced from this PLAN FOR INPATIENT GLYCEMIC CONTROL: * Hold outpatient oral diabetes medications * Basal insulin * Lantus 35 units this morning, 25-30 units this evening * Bolus insulin * NovoLog per scale ACHS or Q6hrs while NPO * Goal Range: Low 110 mg/dL - High 140 mg/dL * Correction Factor: 10 mg/dL/unit * Nutritional / Prandial insulin per carb ratio of 1 unit per 3 grams CHO consumed
--- NOTE | 2020-08-07 20:05 | Anesthesiology Consultation ---
Date of Service August 07, 2020 Assessment & Plan Chart Review Chart Review: Acceptable Risk for Surgery Will need COVID-19 test preoperatively. Ordered. Consults Requested none History Surgery Operation Date: 08/08/20 07:30 Proposed Procedures p Incision and Drainage Left Foot(Left) - Iván Bernardo DO Height/Weight Height: 5 ft 6 in Weight: 111.6 kg Allergies Allergy/AdvReac Type Severity Reaction Status Date / Time amitriptyline AdvReac Mild muscle Verified 08/05/20 00:32 twitching hydralazine AdvReac Mild Rash Verified 08/05/20 00:32 Medications Home Medications Medication Instructions Recorded Confirmed Last Taken atorvastatin 80 mg PO QPM 08/02/18 08/05/20 07/22/20 20:00 magnesium oxide 400 mg PO QPM 08/02/18 08/05/20 07/22/20 20:00 metoprolol succinate 150 mg PO QPM 08/02/18 08/05/20 07/22/20 20:00 omega 2-rap-cfd-fish oil [Fish Oil] 1 cap PO QPM 02/20/19 08/05/20 07/22/20 20:00 omeprazole 20 mg PO QPM #0 cap 08/14/19 08/05/20 07/22/20 20:00 insulin glargine 100 unit/mL 25 units SUBCUT QPM ml 08/30/19 08/05/20 07/22/20 20:00 subcutaneous solution 40 units cholecalciferol (vitamin D3) 25 2,000 units PO QPM tab 11/19/19 08/05/20 07/22/20 20:00 mcg (1,000 unit) chewable tablet cyanocobalamin (vitamin B-12) 1,000 mcg PO QPM tab 11/19/19 08/05/20 07/22/20 20:00 1,000 mcg tablet gabapentin 600 mg PO TID 12/06/19 08/05/20 07/22/20 20:00 polyethylene glycol 3350 17 17 gm PO BID PRN #510 gm 12/23/19 08/05/20 Unknown gram/dose oral powder aspirin 81 mg tablet,delayed 81 mg PO BID tab 01/16/20 08/05/20 07/22/20 08:00 release tramadol 50 mg PO Q6H PRN 0408/05/20 07/20/20 Probiotic 3,000 mmu cells PO QAM 03/26/20 08/05/20 07/19/20 Humulin R U-500 (Conc) Kwikpen 40 unit SUBCUT AMPM 05/05/20 08/05/20 07/21/20 Humulin R U-500 (Conc) Kwikpen 55 unit SUBCUT QPM 05/05/20 08/05/20 07/21/20 fluticasone propionate [Flonase 1 spray INTRANASAL BID 05/05/20 08/05/20 07/22/20 20:00 Allergy Relief] furosemide 60 mg PO HS 06/12/20 08/05/20 07/22/20 20:00 metolazone 2.5 mg PO 2XWK 06/12/20 08/05/20 07/21/20 Active Medications Generic Name Dose Route Start Last Admin Trade Name Freq PRN Reason Stop Dose Admin Acetaminophen 650 mg 08/05/20 03:04 08/05/20 08:16 Acetaminophen 325 Mg Tab PO 09/04/20 03:03 650 mg Q4H PRN Administration pain/fever Aspirin 81 mg 08/05/20 09:00 08/07/20 08:40 Aspirin 81 Mg Ectab PO 09/04/20 08:59 81 mg BID LELIA Administration Atorvastatin Calcium 80 mg 08/05/20 21:00 08/06/20 20:50 Atorvastatin 40 Mg Tab PO 09/04/20 20:59 80 mg QPM LELIA Administration Collagenase 1 appln 08/07/20 09:00 08/07/20 08:41 Collagenase Oint 30 Gm Tube EXT 09/06/20 08:59 1 appln DAILY LELIA Administration Cyanocobalamin 1,000 mcg 08/05/20 21:00 08/06/20 20:51 Cyanocobalamin 500 Mcg Tablet (Vitamin B-12) PO 09/04/20 20:59 1,000 mcg QPM LELIA Administration Cyanocobalamin 1,000 mcg 08/06/20 18:15 08/07/20 08:39 Cyanocobalamin 1000 Mcg/Ml Vial IM 09/05/20 18:14 1,000 mcg DAILY LELIA Administration Fluticasone Propionate 1 sprays 08/05/20 09:00 08/07/20 08:40 Fluticasone Propionate Na Spr 16 Gm Btl NA 09/04/20 08:59 1 sprays BID LELIA Administration Gabapentin 600 mg 08/05/20 09:00 08/07/20 14:47 Gabapentin 600 Mg Tab PO 09/04/20 08:59 600 mg TID LELIA Administration Heparin Sodium (Porcine) 5,000 units 08/05/20 06:00 08/07/20 14:47 Heparin Sod 5,000 Unit/0.5 Ml Vial SQ 09/04/20 05:59 Not Given Q8 LELIA Furosemide 60 mg/ Syringe 6 mls @ 4 mls/min 08/05/20 09:00 08/07/20 08:40 IV 09/04/20 08:59 4 mls/min BID LELIA Administration Insulin Aspart 0 units 08/05/20 03:45 08/07/20 17:29 Insulin Aspart 100 Units/Ml 3 Ml Pen SC 09/04/20 03:44 23 units ACHS LELIA Administration Insulin Glargine 0 units 08/06/20 21:00 08/07/20 08:41 Insulin Glargine Solostar 100 Units/Ml 3 Ml Pen SQ 09/04/20 20:59 35 units BID LELIA Administration Protocol Magnesium Oxide 400 mg 08/05/20 21:00 08/06/20 20:51 Magnesium Oxide 400 Mg Tab PO 09/04/20 20:59 400 mg QPM LELIA Administration Metoprolol Succinate 150 mg 08/05/20 21:00 08/06/20 16:18 Metoprolol Succ 50mg Ext Rel Tab PO 09/04/20 20:59 150 mg QPM LELIA Administration Pantoprazole Sodium 40 mg 08/05/20 21:00 08/06/20 20:51 Pantoprazole 40 Mg Tab PO 09/04/20 20:59 40 mg QPM LELIA Administration Past Medical History Medical History COSMO (acute kidney injury) Hospitalized 07/2019 at [facility] for this and hyperkalemia (K+ >7)with bradycardia. Required emergent [id number] DIALYSIS SINCE-F/U DR CASTRO Arthritis Chronic back pain Chronic kidney disease Stage IIIB/4 chronic kidney disease, baseline creatinine variable from 1.8- 3.5 Wide fluctuation based upon volume status and diuretic use. Following closely with nephrology. Diabetes Diastolic CHF Previously noted in history, but heart failure clinic note from 06/2019 states volume overload not cardiac related. Displaced bimalleolar fracture of left ankle Diverticular disease Dyslipidemia Dyspnea ANY EXERTION GERD (gastroesophageal reflux disease) HLD (hyperlipidemia) Hyperkalemia Patient has been seen in ED twice last year for issues r/t this; some noncompliance issues with medications per record review; patient is following closely with nephrology. Hypertension Osteoarthritis Sleep apnea cpap Temporomandibular joint disorder CLICKS ON OCC NO LOCKING Past Family History Family History Father Diabetes Mother Diabetes Other Coronary heart disease Hypertension Denies family history of Crohn's disease Kidney disease Colorectal cancer Ulcerative colitis Past Surgical History Surgical History History of open reduction and internal fixation (ORIF) procedure Left ankle Bimalleolar Fracture (11/2019) History of tonsillectomy and adenoidectomy Hx of cataract surgery right and left Hx of colonoscopy [place] teeth extracted Social History Smoking Status: Former smoker tobacco type: cigarettes Do You Dip or Chew Tobacco: No Hx Alcohol Use: No Alcohol type: hard liquor alcohol intake frequency: holidays/special occasions only Hx Substance Use: No substance use type: does not use Physical Exam Vital Signs Last Vital Signs Temp 36.9 C 08/07/20 19:53 Pulse 77 08/07/20 19:53 Resp 18 08/07/20 19:53 BP 153/79 H 08/07/20 19:53 Pulse Ox 97 08/07/20 19:53 Testing Laboratory Results 08/06/20 07:11 08/06/20 16:34 PT 10.9 Seconds (9.0-12.0) 08/04/20 23:31 INR 1.0 (0.9-1.1) 08/04/20 23:31 Hemoglobin A1c 7.8 % (4.5-5.6) H 08/05/20 06:21 08/07/20 08/07/20 16:49 11:41 POC Glucose 148 H 218 H
--- NOTE | 2020-08-07 20:25 | Consultation Report ---
DATE OF CONSULTATION: 08/07/2020 HISTORY OF PRESENT ILLNESS: This is a 55-year-old gentleman seen at the request of Dr. Trinidad Ram regarding ulceration of his left plantar foot, which she has been treating for several months at the [facility]. Apparently, he has had multiple debridements by Dr. Green. The patient presented to [facility] on 08/05/2020 with dyspnea and hypoxia. He was admitted to the hospital with multiple other mitigating comorbidities. Orthopedics was requested to see regarding this ongoing chronic issue. The patient subsequently had an MRI while in the hospital during this stay noted osteomyelitis, early at the base of fifth metatarsal. PAST MEDICAL HISTORY: Acute kidney injury, arthritis, chronic back pain, chronic kidney disease, diabetes mellitus, diastolic CHF, diverticular disease, dyslipidemia, dyspnea on exertion, GERD, HLD, hyperkalemia, hypertension, osteoarthritis, sleep apnea -- using CPAP, temporomandibular joint disorder. PAST SURGICAL HISTORY: History of ORIF of left bimalleolar ankle fracture in 11/2019, T and A, cataracts bilaterally, colonoscopy, wisdom tooth extraction. ALLERGIES: AMITRIPTYLINE AND HYDRALAZINE. MEDICATIONS: Please note the significant list in the medical record. SOCIAL HISTORY: Former smoker. Denies alcohol or drug use. He is and lives with his spouse. 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 PHYSICAL EXAMINATION: This is a 55-year-old gentleman who is lying supine in his hospital room bed. He is known to me from prior care that I had given him. Focused exam of the left lower extremity demonstrates significant lymphedema in the left lower extremity with a large ulceration in the plantar base of the left fifth metatarsal with foul odor, obvious necrotic features. Slight serous discharge is noted. There is a bandage, which was removed. Pedal pulses are weak, but palpable. Feet are moderately warm. Scant hair growth in bilateral lower extremities. Laboratories and MRI are reviewed, noting an early osteomyelitis at the base of fifth metatarsal with large full thickness ulceration at the plantar base of the left foot, base of the fifth metatarsal. IMPRESSION: Left necrotic infected ulcer, plantar base of the left fifth metatarsal measuring 4.5 cm in diameter x 1.5 cm deep, osteomyelitis, left fifth metatarsal base, cellulitis and chronic lymphedema. RECOMMENDATIONS: The patient will be scheduled for irrigation and debridement of his necrotic ulceration with likely implantation of Stimulan antibiotic beads and debridement of osteomyelitic fifth metatarsal bone, which will occur tomorrow. Discussed this with the patient and we will schedule this for surgery tomorrow, n.p.o. after midnight. Continue IV antibiotics. Thank you for the opportunity to consult in the care of this patient. DELVIS
[2020-08-07] MEDS: ATORVASTATIN 40 MG TAB PO SCH (22:26)
[2020-08-07] MEDS: MAGNESIUM OXIDE 400 MG TAB PO SCH (22:26)
[2020-08-07] MEDS: METOPROLOL SUCC 50MG EXT REL TAB PO SCH (22:27)
[2020-08-07] MEDS: PANTOprazole 40 MG TAB PO SCH (22:28)
[2020-08-08] MEDS: INSULIN ASPART 100 UNITS/ML 3 ML PEN SC SCH ×6 (00:43→22:36)
[2020-08-08] MEDS: HEPARIN SOD 5,000 UNIT/0.5 ML VIAL SQ SCH ×3 (05:58→22:37)
[2020-08-08 07:35] LABS: Basophils # (auto) 0.07 K/uL (0-0.2); Basophils % (auto) 0.8 %; Eosinophils # (auto) 0.69 K/uL (0-0.5); Eosinophils % (auto) 8.3 %; Hemoglobin 10.6 g/dL (14.0-18.0); Immature Granulocytes # (auto) 0.03 K/uL (0.00-0.02); Immature Granulocytes % (auto) 0.4 %; Lymphocytes # (auto) 2.47 K/uL (1.2-3.4); Lymphocytes % (auto) 29.9 %; Mean Corpuscular Hemoglobin 25.7 pg (25-34); Mean Corpuscular Hgb Conc 31.2 g/dL (32-36); Mean Corpuscular Volume 82.3 fL (80-100); Mean Platelet Volume 9.1 fL (7.4-10.4); Monocytes # (auto) 0.55 K/uL (0.11-0.59); Monocytes % (auto) 6.7 %; Neutrophils # (auto) 4.46 K/uL (1.4-6.5); Neutrophils % (auto) 53.9 %; Platelet Count 407 K/uL (130-400); RDW Coefficient of Variation 14.9 % (11.5-14.5); RDW Standard Deviation 44.4 fL (36.4-46.3); Red Blood Count 4.13 M/uL (4.7-6.1); White Blood Count 8.27 K/uL (4.8-10.8)
[2020-08-08 08:14] LABS: BUN Creatinine Ratio 15.5 (10-20); Creatinine Clr Calc Pharmacy 50.2 ml/min; Est GFR (African American) 43.6; Est GFR (Non-African American) 37.7; Magnesium 2.4 mg/dl (1.8-2.4); Potassium 4.7 mmol/L (3.5-5.1)
[2020-08-08] MEDS: FUROSEMIDE 60 MG in SYRINGE 0 ML IV SCH (08:56)
[2020-08-08] MEDS: INSULIN GLARGINE SOLOSTAR 100 UNITS/ML 3 ML PEN SQ SCH ×2 (08:59→22:35)
[2020-08-08] MEDS ORDERED: ONDANSETRON INJ 2 MG/ML 2 ML VIAL IV PRN ×2 (09:27→12:02)
[2020-08-08] MEDS ORDERED: ATROPINE SULFATE 0.1 MG/ML 10ML SYR IV PRN (09:27)
[2020-08-08] MEDS ORDERED: ePHEDrine sulfate 50 MG/ML AMP IV PRN (09:27)
[2020-08-08] MEDS ORDERED: fentaNYL citrate 100 MCG/2 ML VIAL IV PRN (09:27)
[2020-08-08] MEDS ORDERED: ONDANSETRON INJ 2 MG/ML 2 ML VIAL ONE (09:43)
[2020-08-08] MEDS ORDERED: PROPOFOL IV EMULSION 10 MG/ML 20 ML VIAL IV ONE (09:43)
[2020-08-08] MEDS ORDERED: LIDOCAINE HCL 2% 2 ML VIAL/AMP(20MG/ML) INFIL ONE (09:43)
[2020-08-08] MEDS ORDERED: fentaNYL citrate 100 MCG/2 ML VIAL ONE (09:43)
[2020-08-08] MEDS ORDERED: DEXAMETHASONE SOD INJ 4 MG/ML VIAL ONE (09:43)
[2020-08-08] MEDS ORDERED: BUPIVACAINE 0.5 % 5 MG/1 ML MPF 30ML VIAL ONE (09:50)
[2020-08-08] MEDS ORDERED: VANCOMYCIN HCL 1000MG/20ML VIAL ONE (09:50)
[2020-08-08] MEDS ORDERED: GENTAMICIN SULFATE 40 MG/ML 2 ML VIAL ONE (09:50)
[2020-08-08] MEDS ORDERED: BACITRACIN INJ 50,000 UNIT VIAL ONE (09:50)
--- NOTE | 2020-08-08 09:54 | History & Physical Bridge Note ---
Date of Service August 08, 2020 History & Physical Bridge Note I have examined the patient, reviewed the History & Physical and in the interval since the performance of the History & Physical I have noted the following changes of clinical significance: no changes noted
[2020-08-08] MEDS ORDERED: CEFAZOLIN 250 MG/ML 1 GM VIAL ONE (10:21)
--- NOTE | 2020-08-08 11:21 | Post Operative Brief Note ---
Immediate Post Op Note v1 Date of Surgery August 08, 2020 Pre & Post Diagnosis Operation Date: 08/08/20 07:30 Pre-Op Diagnosis: Left necrotic infected diabetic neuropathic ulcer plantar base of the left fifth metatarsal measuring 4.5 cm in diameter x 1.5 cm deep, osteomyelitis, left fifth metatarsal base, cellulitis and chronic lymphedema. Post-Op Diagnosis: Left necrotic infected diabetic neuropathic ulcer, plantar base of the left fifth metatarsal measuring 4.0 cm in diameter x 1.4 cm deep, osteomyelitis, left fifth metatarsal base, cellulitis and chronic lymphedema. I identified the patient and participated in the time-out.: Yes Procedure Operation Date: 08/08/20 07:30 Actual Procedures p Irrigation and debridement left Foot plantar neuropathic ulcer including skin, subcutaneous fat, Fascia, tendon, periosteum and fifth metatarsal bone, Ulcer Measuring 4cm in diameter x 3.75 cm with a depth of 1.4 cm; application 5 cc Stimulan antibiotic beads (vancomycin and gentamicin) (Left) - Iván Bernardo DO Surgeon Iván Bernardo DO Sizer Hand None Estimated Blood Loss 4 Findings Consistent with Post-Op Diagnosis Specimens Aerobic anaerobic Gram stain deep left plantar lateral foot ulcer Anesthesia Type General Complications none Disposition Accompanied Patient To Recovery: No Disposition: Recovery Room
--- NOTE | 2020-08-08 11:40 | Anesthesiology Progress Note ---
Date of Service August 08, 2020 Anesthesia Post Procedure Vital Signs Vital Signs: Temp Pulse Pulse Pulse Resp BP BP 08/08/20 11:30 61 17 160/72 H 08/08/20 11:20 61 12 165/76 H 08/08/20 11:10 96.8 F L 62 12 158/76 H 08/08/20 07:00 98.4 F 64 20 131/80 08/08/20 04:00 97.9 F 60 18 158/72 H 08/08/20 00:00 98.4 F 72 18 135/69 08/07/20 19:53 98.4 F 77 18 153/79 H 08/07/20 15:27 73 08/07/20 15:11 98.2 F 70 18 149/72 H Pulse Ox 08/08/20 11:30 96 08/08/20 11:20 98 08/08/20 11:10 98 08/08/20 07:00 92 08/08/20 04:00 97 08/08/20 00:00 94 08/07/20 19:53 97 08/07/20 15:27 08/07/20 15:11 93 Pain Intensity Left Arm: Pain Intensity: 0 Head: Pain Intensity: 3 Transfer of Care Handoff Completed per policy Notes Mental Status: alert / awake / arousable and participated in evaluation Patient Amnestic to Procedure: Yes Nausea / Vomiting: adequately controlled Pain: adequately controlled Airway Patency, RR, SpO2: stable & adequate BP & HR: stable & adequate Hydration State: stable & adequate Anesthetic Complications: no major complications apparent and Pt Satisfied with anesthetic care
[2020-08-08] MEDS ORDERED: bisacodyL 10 MG SUPP PR PRN (12:02)
[2020-08-08] MEDS ORDERED: NALOXONE HCL 0.4 MG/1 ML VIAL/CARP IV PRN (12:02)
[2020-08-08] MEDS ORDERED: MAGNESIUM HYDROXIDE SUSP 30 ML UDC PO PRN (12:02)
[2020-08-08] MEDS ORDERED: METOCLOPRAMIDE HCL INJ 5 MG/ML 2 ML VIAL IV PRN (12:02)
[2020-08-08] MEDS: COLLAGENASE OINT 30 GM TUBE EXT SCH (12:09)
[2020-08-08] MEDS: GABAPENTIN 600 MG TAB PO SCH ×3 (12:09→19:48)
[2020-08-08] MEDS: FLUTICASONE PROPIONATE NA SPR 16 GM BTL SCH ×2 (12:11→19:50)
[2020-08-08] MEDS: ASPIRIN 81 MG ECTAB PO SCH ×2 (12:11→19:47)
[2020-08-08] MEDS: CYANOCOBALAMIN 1000 MCG/ML VIAL IM SCH (12:12)
--- NOTE | 2020-08-08 12:26 | Pharmacy Report ---
Glycemic Control Progress Note - Date of Service August 08, 2020 - Scope Glycemic Pharmacist consulted for glycemic control to write orders per [facility] inpatient glycemic control protocol. - Objective Accuchecks BSG(last 24 hours):: 08/07/20 08/07/20 08/08/20 16:49 20:35 00:08 Glucose POC Glucose 148 H 188 H 232 H 08/08/20 08/08/20 08/08/20 05:09 07:08 07:52 Glucose 173 H POC Glucose 163 H 217 H 08/08/20 11:14 Glucose POC Glucose 206 H HbA1c:: Hemoglobin A1c 7.8 % (4.5-5.6) H 08/05/20 06:21 - Recent Pertinent Medications The patient is currently receiving: * Basal insulin: Lantus 30-35 units every 12 hours * Correctional Insulin: Novolog Correction per scale ACHS Goal Range: Low 110 mg/dL - High 140 mg/dL Correction Factor: 10 mg/dL/unit * Prandial insulin: Per carb ratio of 1 unit per 3 grams CHO consumed - Outpatient Anti-Diabetic Meds U-500 40 units in the morning and 55 units in the PM Lantus 25 units HS - Assessment & Plan ASSESSMENT: * See progress note from 08/05/20 for more background info, in short: * Pt receiving SQ basal bolus insulin regimen for hyperglycemia secondary to baseline DM (outpatient regimen on hold). Patient had debridement surgery today. Received dexamethasone 4 mg IV intraoperatively. * Patient is currently receiving an average of 164 units of insulin per day * 65 units of basal insulin * 99 units of prandial/correctional insulin * BSGs ranging 148 - 232 mg/dl over the past 24hrs * Changes needed to insulin regimen: * AM Fasting BSG = 173 mg/dl. This is slightly goal range for patient based on inpatient targets and co-morbidities. Therefore Basal insulin will be increased by 15% to 75 units daily. Will give additional 20 units this afternoon due to steroids. * Post-prandial BSGs were elevated plus steroids were given today. Tighten both CF/CR. * Total daily dose = ~170-190 units. Increased insulin. PLAN FOR INPATIENT GLYCEMIC CONTROL: * Increasing Lantus to 35 units SQ BID plus give 20 units at lunch * Changing correction factor to 8 mg/dl/unit * Changing carb ratio to 1 unit per 2 grams CHO consumed * Continuing goal range of Low 110 mg/dL - High 140 mg/dL * Please note that the plan above was derived based on current level of insulin resistance and hospital stress. These recommendations are appropriate for inpatient admission only. Plan of care upon discharge will need to be reassessed to avoid potential outpatient hypo/hyperglycemia. Thank you.
[2020-08-08] MEDS ORDERED: INSULIN GLARGINE SOLOSTAR 100 UNITS/ML 3 ML PEN SC ONE ×3 (12:30→12:45)
[2020-08-08] MEDS: SODIUM CHLORIDE 0.9% 1000ML 1,000 ML IV SCH ×2 (12:32→23:31)
[2020-08-08] MEDS: ACETAMINOPHEN 325 MG TAB PO PRN (14:59)
--- NOTE | 2020-08-08 15:01 | Hospitalist Progress Note ---
Date of Service August 08, 2020 Assessment & Plan (1) Dyspnea: Patient with hypoxia, 87% on room air, improved with supplemental O2. Dyspnea ?secondary to volume overload - multifactorial, CHF, renal dysfunction, lymphedema. Patient reports his last known dry weight appx 6 months ago was 247# -Admit to medical floor -Lasix 60mg IV BID, will decrease to 40mg on 08/08 PM dose given increased cr overnight -Monitor BID BMP and daily Mag, electrolyte repletion as needed, careful attention to renal function -Daily weights, strict I/O monitoring (2) Hyperglycemia: Elevated blood sugar, poorly controlled DM -Continue insulin - Lantus 25u qHS, ISS -Glycemic management consultation appreciated A1c 7.8 (3) CKD (chronic kidney disease): Near baseline renal function. Electrolytes stable -Monitor BID BMP -Renal dosing -Avoid nephrotoxic agents (4) Anemia: Slow decline in H/H. Normochromic/normocytic. No obvious source of bleed. ?if anemia is contributing to overall symptoms of dyspnea. ?utility of IV iron infusions in anemic patient with CHF -Continue to monitor Iron low normal despite low normal MCV B12 is low normal at 332 with folate WNL Listed on home meds Start B12 injections 08/06 (5) Leg edema: Chronic. Stable -Diuresis as above -Encourage elevation (6) WHIT (obstructive sleep apnea): Chronic -CPAP [id number] qHS (7) Hypertension: Blood pressure elevated -Continue home medications, Metoprolol -Continue to monitor (8) Dyslipidemia: Chronic -Continue Atorvastatin (9) Diabetes: As above -Lantus, ISS -Goal blood sugar 100 - 140 -Glycemic management consultation appreciated Ppx - Heparin. Code - Full Dispo - Admit to medical with telemetry (10) Foot ulcer: Seen by wound care nursing and felt more advanced than wound care issues, recs for gen surg c/s Gen surg also feels more advanced than their scope LE US noted as triphasic in most regions other than biphasic in L peroneal and monophasic in L dorsalis pedis MRI noted for "very early" osteo in 5th metatarsal OR on 08/08 for debridement and abx bead placement COVID testing done routinely pre-op and is neg Admission and Anticipated Discharge Date Admission Date: August 05, 2020 Subjective Pt is doing well post-op. No L foot pain yet. Tolerating PO post-op. Has not been OOB much due to surgery, but no SOB at rest. R LE swelling is much improved today even into his lower leg and foot. L does have increased swelling since the OR. Pt denies fever, chest pain, abd pain, n/v/c/d. Review of Systems Review of Systems: Pertinent positives and negatives reviewed in HPI--all others negative Physical Exam Constitutional: WD/WN, vitals as above Eyes: normal visual thomas by confrontation and + anicteric sclerae Neck: normal visual inspection and trachea midline Respiratory: normal respiratory effort, lungs clear to auscultation Cardiovascular: Rate/Rhythm: regular rate and regular rhythm Extremities: + edema (2+ in L LE, 1+ in R LE) Gastrointestinal (Abdomen): Inspection/Auscultation: abdomen not distended Percussion/Palpation: abdomen soft; abdomen nontender Musculoskeletal: Head/Neck/Chest: normocephalic and head atraumatic Skin: no rashes, warm and dry Neurologic: awake; not confused Speech / Cognition: normal speech Psychiatric: A+Ox3, euthymic affect Results & Data Results & Data ([facility]) Vital Signs (Past 12 Hours) Vital Signs Temp Pulse Pulse Resp BP Pulse Ox 08/08/20 11:50 36.2 C L 60 12 163/78 H 97 08/08/20 11:40 62 19 160/79 H 97 08/08/20 11:30 61 17 160/72 H 96 08/08/20 11:20 61 12 165/76 H 98 08/08/20 11:10 36.0 C L 62 12 158/76 H 98 08/08/20 07:00 36.9 C 64 20 131/80 92 08/08/20 04:00 36.6 C 60 18 158/72 H 97 PG Care Time/CCT Total # of Minutes Spent Total Time Spent with Patient: Total time spent is greater than 50% in coordination of care (as documented) at patient's floor/unit and/or counseling patient: Coding Level of Care Code 05552 Subseq Hosp Care Lvl 3 Diagnoses Dyspnea R06.02 Dyspnea type: shortness of breath Hyperglycemia R73.9 CKD (chronic kidney disease) N18.9 Chronic kidney disease stage: unspecified stage Anemia D64.9 Anemia type: unspecified type Leg edema R60.0 WHIT (obstructive sleep apnea) G47.33 Hypertension I10 Hypertension type: essential hypertension Dyslipidemia E78.5 Diabetes E11.621; L97.509; Z79.4 Diabetes mellitus type: type 2 Diabetes mellitus alf insulin use: with news photographer use Diabetes mellitus complication status: with skin complications Diabetes mellitus complication detail: with foot ulcer Foot ulcer L97.509 (1) Dyspnea Dyspnea type: shortness of breath Qualified Code(s): R06.02 - Shortness of breath (2) CKD (chronic kidney disease) Chronic kidney disease stage: unspecified stage Qualified Code(s): N18.9 - Chronic kidney disease, unspecified (3) Anemia Anemia type: unspecified type Qualified Code(s): D64.9 - Anemia, unspecified (4) Hypertension Hypertension type: essential hypertension Qualified Code(s): I10 - Essential (primary) hypertension (5) Diabetes Diabetes mellitus type: type 2 Diabetes mellitus alf insulin use: with alf use Diabetes mellitus complication status: with skin complications Diabetes mellitus complication detail: with foot ulcer Qualified Code(s): E11.621 - Type 2 diabetes mellitus with foot ulcer; L97.509 - Non-pressure chronic ulcer of other part of unspecified foot with unspecified severity; Z79.4 - sole tacker (current) use of insulin
[2020-08-08] MEDS: PANTOprazole 40 MG TAB PO SCH (19:48)
[2020-08-08] MEDS: METOPROLOL SUCC 50MG EXT REL TAB PO SCH (19:48)
[2020-08-08] MEDS: DOCUSATE SODIUM 100 MG CAP PO SCH (19:50)
[2020-08-08] MEDS: MAGNESIUM OXIDE 400 MG TAB PO SCH (19:51)
[2020-08-08] MEDS: ATORVASTATIN 40 MG TAB PO SCH (19:51)
[2020-08-08] MEDS: SENNA 8.6 MG TAB PO SCH (19:51)
[2020-08-08] MEDS: CYANOCOBALAMIN 500 MCG TABLET (VITAMIN B-12) PO SCH (19:52)
[2020-08-08] MEDS: FUROSEMIDE 40 MG in SYRINGE 0 ML IV SCH (19:53)
--- NOTE | 2020-08-08 21:04 | Operative Report (OR) ---
DATE OF OPERATION: 08/08/2020 PREOPERATIVE DIAGNOSES: 1. Left foot necrotic infected diabetic neuropathic ulcer, plantar lateral foot measuring 4.0 cm in diameter x 1.4 cm deep. 2. Periostitis/osteomyelitis base of the fifth metatarsal, left foot. 3. Cellulitis, left lower extremity. 4. Chronic lymphedema. POSTOPERATIVE DIAGNOSES: 1. Left foot necrotic infected diabetic neuropathic ulcer, plantar lateral foot measuring 4.0 cm in diameter x 1.4 cm deep. 2. Periostitis/osteomyelitis base of the fifth metatarsal, left foot. 3. Cellulitis, left lower extremity. 4. Chronic lymphedema. PROCEDURES PERFORMED: 1. Left foot irrigation and debridement of a 4.0 cm x 3.75 cm x 1.4 cm diabetic neuropathic ulceration. 2. Irrigation and debridement, left foot including skin/fascia/subcutaneous tissue/tendon/periosteum and fifth metatarsal bone. 3. Application of Stimulan beads 5 mL containing gentamicin and vancomycin. SURGEON: Iván Bernardo DO. CHANNEL MANAGER: None. ANESTHESIA: General with local. SPECIMENS: Aerobic, anaerobic, Gram stain -- deep soft tissue left plantar lateral foot. DRAINS: None. COMPLICATIONS: None. BLOOD LOSS: 4 mL. PERTINENT HISTORY: This is a 55-year-old gentleman who has chronic diabetic neuropathy, who developed a plantar ulceration on his left foot several months ago. [facility] [place] with [facility] of the foot; however, worsened. He presented to [facility] with hypoxemia and shortness of breath. He was admitted to the hospitalist service and stabilized, and orthopedics was consulted regarding his foot and he was seen and examined and then scheduled for surgery as indicated as his MRI demonstrated early osteomyelitis of the plantar lateral aspect of the left foot with a large plantar lateral ulcer overlying the periostitis and osteomyelitis. The patient was then scheduled for surgery as indicated. All potential risks, benefits, complications, alternatives, rehab potential for incomplete relief of symptoms, DVT, PE, , persistent pain, swelling, scarring, weakness, neurovascular injury, wound complications, need for further surgery or amputation were discussed with the patient. The patient decided to proceed with the procedure as indicated. DESCRIPTION OF PROCEDURE: The patient was taken to the operative suite and placed supine on the operating table. After review of the consent and identification of proper operative site, the patient was anesthetized, LMA was placed. Left lower extremity was then sterilely prepped and draped in usual fashion, elevated and partially exsanguinated with an Esmarch bandage and Esmarch bandage was applied over a sterile surgical towel at the level of the ankle. The planned surgical site was then infiltrated with approximately 10 mL of 0.5% Marcaine plain after surgical timeout had been performed and then a sharp debridement of the 4 cm diameter x 1.4 cm deep ulceration was then performed sharply with a 15 blade scalpel. The necrotic foul-smelling tissue including skin, subcutaneous fat, fascia, tendon and periosteum were excised sharply. Next, cultures were obtained in the deep soft tissue adjacent to the periosteum for aerobic, anaerobic, Gram stain analysis, and further debridement was then performed with a rongeur. Any tissue that appeared to be friable or compromised was then excised. The remaining tissue appeared to be viable and then a pulsatile lavage with 3 liters saline with bacitracin was then used to lavage the foot until clear. Next, top gloves and top sheet were changed and further careful debridement was performed down to the level of the bone. The bone was then probed with a 15 blade scalpel, noted to be small features of softening. These areas were then rongeured clear and then irrigated with pulsatile lavage with bacitracin. Next, the Stimulan calcium sulfate beads were created with vancomycin and gentamicin solution. Once the beads cured, a small bead pouch was created with Acticoat Flex stapled in place with skin naina around the periphery of the lesion, filled the beads and the circular shaped ulcer was then revised with release cuts proximal and distal to transition the ulcer into an ellipsoid pattern and then the space was then closed using interrupted 2-0 nylon sutures, which reduced the size and exposure of the soft tissue immensely. Next, after the bead pouch was completed and sealed with skin naina, a sterile compressive dressing was applied overwrapped with a Xeroform gauze, sterile 4 x 4's, cast padding, ABD pads x2 and Balaji wrap. The tourniquet was released. The patient was awakened and then taken to recovery in stable condition. I attest to the content of the Intraoperative Record and any orders documented therein. Any exception s are noted below.
[2020-08-09] MEDS: HEPARIN SOD 5,000 UNIT/0.5 ML VIAL SQ SCH ×3 (06:20→21:54)
[2020-08-09] MEDS: MULTIVITAMIN TAB PO SCH (08:58)
[2020-08-09] MEDS: DOCUSATE SODIUM 100 MG CAP PO SCH ×2 (08:58→21:44)
[2020-08-09] MEDS: ASPIRIN 81 MG ECTAB PO SCH ×2 (08:59→21:48)
[2020-08-09] MEDS: FLUTICASONE PROPIONATE NA SPR 16 GM BTL SCH ×2 (09:00→21:48)
[2020-08-09] MEDS: FUROSEMIDE 40 MG in SYRINGE 0 ML IV SCH (09:00)
[2020-08-09] MEDS ORDERED: INSULIN GLARGINE SOLOSTAR 100 UNITS/ML 3 ML PEN SC SCH (09:00)
[2020-08-09] MEDS: INSULIN ASPART 100 UNITS/ML 3 ML PEN SC SCH ×4 (09:03→21:51)
[2020-08-09] MEDS: GABAPENTIN 600 MG TAB PO SCH ×3 (09:04→21:50)
[2020-08-09] MEDS: CYANOCOBALAMIN 1000 MCG/ML VIAL IM SCH (09:05)
[2020-08-09] MEDS: COLLAGENASE OINT 30 GM TUBE EXT SCH (09:05)
[2020-08-09] MEDS ORDERED: VANCOMYCIN CONSULT ACTIVE PRN (09:15)
--- NOTE | 2020-08-09 09:27 | Orthopedic Progress Note ---
Date of Service August 09, 2020 Assessment & Plan (1) Foot ulcer: POD #1, Left Foot ulcer I&D w placement of antibiotic beads. PT/ OT NWB Left LE Vanco ordered, Intra-op gram stain w gram pos cocci, cultures pending. Disposition per primary team. Dressing change Monday. Admission and Anticipated Discharge Date Admission Date: August 05, 2020 Subjective POD #1, Feeling well. Reports minimal pain. Denies SOB, CP, N/V. Physical Exam Physical Exam: Patient in bed comfortably. Left foot dressings c/d/i. Toes mobile. Sensation at toes diminished slightly. Good cap refill. Afebrile. A&Ox3. Results & Data ([facility]) Vital Signs (Past 12 Hours) Vital Signs Temp Pulse Pulse Resp BP Pulse Ox 08/09/20 07:33 58 L 08/09/20 07:00 36.7 C 56 L 18 145/74 H 96 08/09/20 03:25 36.5 C 56 L 20 151/57 H 97 08/08/20 22:00 37.0 C 64 20 164/84 H 96
[2020-08-09] MEDS ORDERED: VANCOMYCIN HCL 2,250 MG in SODIUM CHLORIDE 0.9% 500 ML IV ONE (09:45)
[2020-08-09 10:15] LABS: Basophils # (auto) 0.03 K/uL (0-0.2); Basophils % (auto) 0.3 %; Eosinophils # (auto) 0.07 K/uL (0-0.5); Eosinophils % (auto) 0.7 %; Hematocrit (blood only) 29.3 % (42-52); Hemoglobin 9.3 g/dL (14.0-18.0); Immature Granulocytes # (auto) 0.05 K/uL (0.00-0.02); Immature Granulocytes % (auto) 0.5 %; Lymphocytes # (auto) 2.25 K/uL (1.2-3.4); Lymphocytes % (auto) 22.3 %; Mean Corpuscular Hgb Conc 31.7 g/dL (32-36); Mean Corpuscular Volume 81.8 fL (80-100); Monocytes # (auto) 0.58 K/uL (0.11-0.59); Monocytes % (auto) 5.8 %; Neutrophils % (auto) 70.4 %; Platelet Count 334 K/uL (130-400); RDW Coefficient of Variation 14.7 % (11.5-14.5); RDW Standard Deviation 43.2 fL (36.4-46.3); Red Blood Count 3.58 M/uL (4.7-6.1); White Blood Count 10.08 K/uL (4.8-10.8)
[2020-08-09 10:52] LABS: BUN Creatinine Ratio 22.3 (10-20); Calcium 8.6 mg/dl (8.5-10.1); Creatinine Clr Calc Pharmacy 54.2 ml/min; Est GFR (African American) 47.7; Est GFR (Non-African American) 41.2; Potassium 4.4 mmol/L (3.5-5.1)
--- NOTE | 2020-08-09 11:01 | Pharmacy Report ---
Glycemic Control Progress Note - Date of Service August 09, 2020 - Scope Glycemic Pharmacist consulted for glycemic control to write orders per [facility] inpatient glycemic control protocol. - Objective Accuchecks BSG(last 24 hours):: 08/08/20 08/08/20 08/08/20 11:14 16:44 20:16 Glucose POC Glucose 206 H 199 H 205 H 08/09/20 08/09/20 07:35 10:04 Glucose 220 H POC Glucose 225 H HbA1c:: Hemoglobin A1c 7.8 % (4.5-5.6) H 08/05/20 06:21 - Recent Pertinent Medications The patient is currently receiving: * Basal insulin: Lantus 30-35 units every 12 hours (received an extra 20 units at lunchtime) * Correctional Insulin: Novolog Correction per scale ACHS Goal Range: Low 110 mg/dL - High 140 mg/dL Correction Factor: 8 mg/dL/unit * Prandial insulin: Per carb ratio of 1 unit per 2 grams CHO consumed - Outpatient Anti-Diabetic Meds U-500 40 units in the morning and 55 units in the evening Lantus 25 units HS - Assessment & Plan ASSESSMENT: * See progress note from 08/05/20 for more background info, in short: * Pt receiving SQ basal bolus insulin regimen for hyperglycemia secondary to baseline DM (outpatient regimen on hold). Patient on vancomycin for foot wound. He is POD 1 for debridement and received dexamethasone 4 mg IV intraoperatively. * Patient is currently receiving an average of 169 units of insulin per day * 85 units of basal insulin * 84 units of prandial/correctional insulin * BSGs ranging 173 - 206 mg/dl over the past 24hrs * Changes needed to insulin regimen: * AM Fasting BSG = 225 mg/dl. This is above goal range for patient based on inpatient targets and co-morbidities. This is due to dexamethasone from yesterday. Will give an extra 10 units this morning (total of 45 units) then resume 35 units BID. * Post-prandial BSGs were stable yesterday. Tightened CF/CR for breakfast. This will most likely require loosening later today. * Total daily dose = ~170 units. PLAN FOR INPATIENT GLYCEMIC CONTROL: * Continuing Lantus 35 units SQ BID * TIGHTENING correction factor to 7 mg/dl/unit * TIGHTENING carb ratio to 1 unit per 1.5 grams CHO consumed * Continuing goal range of Low 110 mg/dL - High 140 mg/dL * Please note that the plan above was derived based on current level of insulin resistance and hospital stress. These recommendations are appropriate for inpatient admission only. Plan of care upon discharge will need to be reassessed to avoid potential outpatient hypo/hyperglycemia. Thank you.
--- NOTE | 2020-08-09 11:08 | Pharmacy Report ---
Pharmacy Abx Initial Consult - Date of Service August 09, 2020 - Pharmacy Dosing Scope Date of Consult: 08/09/2020 Consultation requested by: Palomo Ferrell PA-C Pharmacy is consulted to initiate Vancomycin IV dosing therapy, order appropriate labs and adjust drug dose/frequency. - Subjective The patient is a 55 year old M admitted on 08/05/20 01:53. - Objective Height: 5 ft 6 in Weight: 110.6 kg Vital Signs (Past 12hrs): Vital Signs Temp Pulse Pulse Resp BP Pulse Ox 08/09/20 07:33 58 L 08/09/20 07:00 36.7 C 56 L 18 145/74 H 96 08/09/20 03:25 36.5 C 56 L 20 151/57 H 97 Lab Results (24hrs): Laboratory Tests (24 Hours) 08/09/20 08/09/20 10:04 10:04 WBC 10.08 Neut # (Auto) 7.10 H Creatinine 1.82 H Est Cr Clr Drug Dosing 54.2 Micro Results: 08/08/20 Unknown Gram Stain - Final Foot,Left - Risk Factors for Resistance * None - Assessment & Plan Assessment 55 year old M admitted on 08/04/2020 secondary to SOB * PMHx significant for IDDM and CKD Stage IIIb (baseline SCr ~ 1.7) * Long standing history of L foot ulcer which he follows with [place] [facility] for. * L foot MRI showed early signs of osteomyelitis of the fifth metatarsal. No abscess identified. * He is now POD #1 from I&D of L foot with Stimulan antibiotic bead placement (Vancomycin and Gentamicin). * Intra-operative foot gram stain shows moderate GPCs so he was placed on IV Vancomycin. * Today, he is afebrile and has a mild leukocytosis of 10.1k. Renal function improved slightly today (1.96 --> 1.82). UO has improved today as well (patient has been on IV Lasix BID since admission). Plan IV Vancomycin for treatment of L fifth metatarsal osteomyelitis Vancomycin IV * Estimated PK Parameters: Vd 0.6 L/kg, Luther 0.049 hr-1, t1/2 14.0 hrs * Loading dose: 2250 mg (20.3 mg/kg) * Maintenance dose: 1500 mg IV (13.6 mg/kg) every 16 hours * Goal trough level: 15 to 20 mcg/mL * Trough level ordered for 08/11/2020 at 0930 to reflect steady state levels * A less than traditional dose has been selected due to likelihood of drug accumulation in patient with elevated BMI. Pharmacy will continue to follow and will adjust dose/frequency as necessary. Thank you.
--- NOTE | 2020-08-09 11:36 | Hospitalist Progress Note ---
Date of Service August 09, 2020 Assessment & Plan (1) Dyspnea: Patient with hypoxia, 87% on room air, improved with supplemental O2. Dyspnea ?secondary to volume overload - multifactorial, CHF, renal dysfunction, lymphedema. 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 Electrolytes stable -Monitor BID BMP -Renal dosing -Avoid nephrotoxic agents (4) Anemia: Slow decline in H/H. Normochromic/normocytic. No obvious source of bleed. ?if anemia is contributing to overall symptoms of dyspnea. ?utility of IV iron infusions in anemic patient with CHF -Continue to monitor Iron low normal despite low normal MCV B12 is low normal at 332 with folate WNL Listed on home meds Start B12 injections 08/06, last 08/10 (5) Leg edema: Chronic. Stable -Diuresis as above -Encourage elevation (6) WHIT (obstructive sleep apnea): Chronic -CPAP [id number] qHS (7) Hypertension: Blood pressure elevated -Continue home medications, Metoprolol -Continue to monitor (8) Dyslipidemia: Chronic -Continue Atorvastatin (9) Diabetes: As above -Lantus, ISS -Goal blood sugar 100 - 140 -Glycemic management consultation appreciated Ppx - Heparin. Code - Full Dispo - Admit to medical with telemetry (10) Foot ulcer: Seen by wound care nursing and felt more advanced than wound care issues, recs for gen surg c/s Gen surg also feels more advanced than their scope LE US noted as triphasic in most regions other than biphasic in L peroneal and monophasic in L dorsalis pedis MRI noted for "very early" osteo in 5th metatarsal OR on 08/08 for debridement and abx bead placement Started on vanco 08/09 COVID testing done routinely pre-op and is neg Admission and Anticipated Discharge Date Admission Date: August 05, 2020 Subjective Pt feels his R LE swelling continues to improve. L is better than post-op yesterday, but still a bit more swelling on that side. He has not been OOB due to restrictions related to his recent surgical procedure. Tolerating PO without issue. Pt denies fever, SOB, chest pain, abd pain, n/v/c/d, LE pain. Review of Systems Review of Systems: Pertinent positives and negatives reviewed in HPI--all others negative Physical Exam Constitutional: WD/WN, vitals as above Eyes: normal visual thomas by confrontation and + anicteric sclerae Neck: normal visual inspection and trachea midline Respiratory: normal respiratory effort, lungs clear to auscultation Cardiovascular: Rate/Rhythm: regular rate and regular rhythm Extremities: + edema (1+ in L LE, trace in R LE with ankle clearly visible) Gastrointestinal (Abdomen): Inspection/Auscultation: abdomen not distended Percussion/Palpation: abdomen soft; abdomen nontender Musculoskeletal: Head/Neck/Chest: normocephalic and head atraumatic Skin: no rashes, warm and dry Neurologic: awake; not confused Speech / Cognition: normal speech Psychiatric: A+Ox3, euthymic affect Results & Data Results & Data ([facility]) Vital Signs (Past 12 Hours) Vital Signs Temp Pulse Pulse Resp BP Pulse Ox 08/09/20 11:00 36.8 C 55 L 18 122/65 94 08/09/20 07:33 58 L 08/09/20 07:00 36.7 C 56 L 18 145/74 H 96 08/09/20 03:25 36.5 C 56 L 20 151/57 H 97 PG Care Time/CCT Total # of Minutes Spent Total Time Spent with Patient: Total time spent is greater than 50% in coordination of care (as documented) at patient's floor/unit and/or counseling patient: Coding Level of Care Code 24344 Subseq Hosp Care Lvl 3 Diagnoses Dyspnea R06.02 Dyspnea type: shortness of breath Hyperglycemia R73.9 CKD (chronic kidney disease) N18.9 Chronic kidney disease stage: unspecified stage Anemia D64.9 Anemia type: unspecified type Leg edema R60.0 WHIT (obstructive sleep apnea) G47.33 Hypertension I10 Hypertension type: essential hypertension Dyslipidemia E78.5 Diabetes E11.621; L97.509; Z79.4 Diabetes mellitus type: type 2 Diabetes mellitus care home insulin use: with termite technician use Diabetes mellitus complication status: with skin complications Diabetes mellitus complication detail: with foot ulcer Foot ulcer L97.509 (1) Dyspnea Dyspnea type: shortness of breath Qualified Code(s): R06.02 - Shortness of breath (2) CKD (chronic kidney disease) Chronic kidney disease stage: unspecified stage Qualified Code(s): N18.9 - Chronic kidney disease, unspecified (3) Anemia Anemia type: unspecified type Qualified Code(s): D64.9 - Anemia, unspecified (4) Hypertension Hypertension type: essential hypertension Qualified Code(s): I10 - Essential (primary) hypertension (5) Diabetes Diabetes mellitus type: type 2 Diabetes mellitus termite technician insulin use: with termite technician use Diabetes mellitus complication status: with skin complications Diabetes mellitus complication detail: with foot ulcer Qualified Code(s): E11.621 - Type 2 diabetes mellitus with foot ulcer; L97.509 - Non-pressure chronic ulcer of other part of unspecified foot with unspecified severity; 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
[2020-08-09] MEDS: SENNA 8.6 MG TAB PO SCH (21:44)
[2020-08-09] MEDS: FUROSEMIDE 20 MG in SYRINGE 0 ML IV SCH (21:47)
[2020-08-09] MEDS: ATORVASTATIN 40 MG TAB PO SCH (21:49)
[2020-08-09] MEDS: MAGNESIUM OXIDE 400 MG TAB PO SCH (21:50)
[2020-08-09] MEDS: METOPROLOL SUCC 50MG EXT REL TAB PO SCH (21:51)
[2020-08-09] MEDS: CYANOCOBALAMIN 500 MCG TABLET (VITAMIN B-12) PO SCH (21:53)
[2020-08-09] MEDS: PANTOprazole 40 MG TAB PO SCH (21:54)
[2020-08-09] MEDS: INSULIN GLARGINE SOLOSTAR 100 UNITS/ML 3 ML PEN SQ SCH (21:56)
[2020-08-09] MEDS ORDERED: INSULIN GLARGINE SOLOSTAR 100 UNITS/ML 3 ML PEN SQ ONE (22:00)
[2020-08-10] MEDS: VANCOMYCIN HCL 1,500 MG in SODIUM CHLORIDE 0.9% 500 ML IV SCH ×2 (03:12→18:22)
[2020-08-10 06:19] LABS: Basophils # (auto) 0.05 K/uL (0-0.2); Basophils % (auto) 0.6 %; Eosinophils # (auto) 0.37 K/uL (0-0.5); Eosinophils % (auto) 4.3 %; Hematocrit (blood only) 29.2 % (42-52); Hemoglobin 8.8 g/dL (14.0-18.0); Immature Granulocytes # (auto) 0.03 K/uL (0.00-0.02); Immature Granulocytes % (auto) 0.3 %; Lymphocytes # (auto) 3.04 K/uL (1.2-3.4); Lymphocytes % (auto) 35.3 %; Mean Corpuscular Hemoglobin 25.3 pg (25-34); Mean Corpuscular Hgb Conc 30.1 g/dL (32-36); Mean Corpuscular Volume 83.9 fL (80-100); Mean Platelet Volume 9.2 fL (7.4-10.4); Monocytes # (auto) 0.59 K/uL (0.11-0.59); Monocytes % (auto) 6.9 %; Neutrophils # (auto) 4.53 K/uL (1.4-6.5); Neutrophils % (auto) 52.6 %; Platelet Count 332 K/uL (130-400); RDW Coefficient of Variation 15.2 % (11.5-14.5); Red Blood Count 3.48 M/uL (4.7-6.1); White Blood Count 8.61 K/uL (4.8-10.8)
[2020-08-10] MEDS: HEPARIN SOD 5,000 UNIT/0.5 ML VIAL SQ SCH ×3 (06:35→22:09)
[2020-08-10 06:45] LABS: BUN Creatinine Ratio 21.8 (10-20); Calcium 8.5 mg/dl (8.5-10.1); Creatinine Clr Calc Pharmacy 52.2 ml/min; Est GFR (African American) 45.6; Est GFR (Non-African American) 39.3; Potassium 4.9 mmol/L (3.5-5.1)
--- NOTE | 2020-08-10 09:30 | Pharmacy Report ---
Pharmacy Glycemic Short Note 2 - Date of Service August 10, 2020 - Glycemic Short BSG Results (Last 24 hours): 08/09/20 08/09/20 08/09/20 10:04 11:45 16:56 Glucose 220 H POC Glucose 172 H 69 L* 08/09/20 08/09/20 08/09/20 16:58 21:08 21:39 Glucose POC Glucose 77 68 L* 101 H 08/10/20 08/10/20 06:03 07:49 Glucose 217 H POC Glucose 244 H OUTPATIENT ANTIDIABETIC REGIMEN: * Lantus 25 units QPM * U500 40 units with breakfast and lunch, 55 units with dinner * TDD: 160 units/day * A1c 7.8% 08/05/20 ASSESSMENT: 08/10: * Effect of dexamethasone 4 mg IV intraop administered on 08/08 likely wearing off * Mild hypoglycemia noted with dinner and at HS yesterday, likely 2nd too tight of CHO ratio with steroid effects wearing off. Will loosen back to previous Novolog parameters prior to steroids * AM fasting hyperglycemia noted this AM - possibly the result of reduced Lantus dose last night (total of 65 units administered yesterday), but suspect that correction of hypoglycemic event at HS yesterday contributing. Will increase Lantus dose only slightly 08/07: * Pt received 125 units of insulin yesterday: * 40 of basal * 85 of correctional/prandial * BSGs [phone] mg/dl * Regimen more heavily weight to prandial/correctional- will continue to titrate lantus up- patient was only comfortable with taking 25 units at night, will set scale up to 30 units tonight if patient agreeable, otherwise continue to titrate up morning dose * Prandial BSGs acceptable yesterday, elevated at lunch today however, insulin administration later in morning (late breakfast). Will continue current parameters, overnight BSGS 08/06: * Patient received ~116 units of insulin yesterday, hyperglycemic overnight with high fasting in AM. Patient not comfortable with taking more than 25 units of lantus at night d/t concern for hypoglycemia, therefore will split lantus into BID dosing. He received an additional 25 units this morning. * Will continue current novolog parameters as lunch BSG improved today. Will continue overnight checks. * After discussion with visual educator patient reports he was taking U500 as one dose at bedtime (80 units) and not earlier in the day d/t concern with hypoglycemic at work. 08/05: * Mr. Swartz's A1c greatly improved from last visit, total daily insulin requir ement is less than previous as well. Patient maintained on U500 insulin + lantus outpatient. * Will use lantus/novolog basal bolus, as known to glycemic service. Will begin with stress of two novolog dosing based on current outpatient total daily dose and lantus dose that is slightly reduced from this PLAN FOR INPATIENT GLYCEMIC CONTROL: * Hold outpatient oral diabetes medications * Basal insulin * Lantus 35 units SC BID * Bolus insulin * NovoLog per scale ACHS or Q6hrs while NPO * Goal Range: Low 110 mg/dL - High 140 mg/dL * Correction Factor: 10 mg/dL/unit * Nutritional / Prandial insulin per carb ratio of 1 unit per 3 grams CHO consumed
[2020-08-10] MEDS: MULTIVITAMIN TAB PO SCH (09:44)
[2020-08-10] MEDS: DOCUSATE SODIUM 100 MG CAP PO SCH ×2 (09:44→20:37)
[2020-08-10] MEDS: GABAPENTIN 600 MG TAB PO SCH ×3 (09:44→20:40)
[2020-08-10] MEDS: INSULIN GLARGINE SOLOSTAR 100 UNITS/ML 3 ML PEN SQ SCH ×2 (09:45→20:38)
[2020-08-10] MEDS: FLUTICASONE PROPIONATE NA SPR 16 GM BTL SCH ×2 (09:45→20:38)
[2020-08-10] MEDS: COLLAGENASE OINT 30 GM TUBE EXT SCH (09:46)
[2020-08-10] MEDS: CYANOCOBALAMIN 1000 MCG/ML VIAL IM SCH (09:46)
[2020-08-10] MEDS: ASPIRIN 81 MG ECTAB PO SCH ×2 (09:46→20:37)
[2020-08-10] MEDS: FUROSEMIDE 20 MG in SYRINGE 0 ML IV SCH ×2 (09:47→20:39)
[2020-08-10] MEDS: INSULIN ASPART 100 UNITS/ML 3 ML PEN SC SCH ×4 (09:49→20:41)
--- NOTE | 2020-08-10 10:24 | Orthopedic Progress Note ---
Date of Service August 10, 2020 Assessment & Plan (1) Foot ulcer: POD #2, 1. Left foot irrigation and debridement of a 4.0 cm x 3.75 cm x 1.4 cm diabetic neuropathic ulceration. 2. Irrigation and debridement, left foot including skin/fascia/subcutaneous tissue/tendon/periosteum and fifth metatarsal bone. 3. Application of Stimulan beads 5 mL containing gentamicin and vancomycin PT/ OT--NWB Left LE Vanco ordered, Intra-op gram stain w gram pos cocci, cultures pending. Disposition per primary team. Dressing changed today. Discussed NWB status to encourage healing. If wound continues to improve, may be able to stay away from a repeat I & D. Will monitor throughout the week. Admission and Anticipated Discharge Date Admission Date: August 05, 2020 Subjective Left foot is doing well. No complaints of pain. States he mostly stays off of it unless he's going to the bathroom. Also states he was not told to be NWB on the LLE. Physical Exam Constitutional: WD/WN, vitals as above no acute distress Musculoskeletal: Left foot: Stable lateral midfoot ulceration with Acticoat flex stapled in place. No drainage noted during dressing change. Moderate amounts of blood on the ROSCOE bandage prior to changing. Minimal erythema. No streaking. BLE edema. Psychiatric: A+Ox3, euthymic affect Speech: normal rate/rhythm/volume of speech Results & Data ([facility]) Vital Signs (Past 12 Hours) Vital Signs Temp Pulse Pulse Resp BP Pulse Ox 08/10/20 09:45 73 158/77 H 08/10/20 08:02 36.8 C 59 L 16 94/56 L 95 08/10/20 07:00 59 L 08/10/20 03:30 36.9 C 67 20 131/77 93 08/09/20 23:00 36.5 C 67 20 167/81 H 100
[2020-08-10] MEDS ORDERED: INSULIN HUMAN REGULAR PER UNIT 10 UNITS in SYRINGE 9.9 ML IV ONE (13:45)
--- NOTE | 2020-08-10 15:35 | Hospitalist Progress Note ---
Date of Service August 10, 2020 Assessment & Plan (1) Dyspnea: Patient with hypoxia, 87% on room air, improved with supplemental O2. Dyspnea ?secondary to volume overload - multifactorial, CHF, renal dysfunction, lymphedema. 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 Electrolytes stable -Renal dosing -Avoid nephrotoxic agents Cr is 1.89 today, electrolytes stable (4) Anemia: Slow decline in H/H. Normochromic/normocytic. No obvious source of bleed. ?if anemia is contributing to overall symptoms of dyspnea. ?utility of IV iron infusions in anemic patient with CHF -Continue to monitor Iron low normal despite low normal MCV B12 is low normal at 332 with folate WNL Listed on home meds Start B12 injections 08/06, last 08/10 Hb is 8.8 today (5) Leg edema: Chronic. Stable -Diuresis as above -Encourage elevation (6) WHIT (obstructive sleep apnea): Chronic -CPAP [id number] qHS (7) Hypertension: Blood pressure elevated -Continue home medications, Metoprolol -Continue to monitor (8) Dyslipidemia: Chronic -Continue Atorvastatin (9) Diabetes: As above -Lantus, ISS -Goal blood sugar 100 - 140 -Glycemic management consultation appreciated Ppx - Heparin. Code - Full Dispo - Admit to medical with telemetry (10) Foot ulcer: Seen by wound care nursing and felt more advanced than wound care issues, recs for gen surg c/s Gen surg also feels more advanced than their scope LE US noted as triphasic in most regions other than biphasic in L peroneal and monophasic in L dorsalis pedis MRI noted for "very early" osteo in 5th metatarsal OR on 08/08 for debridement and abx bead placement Started on vanco 08/09 now with gram negative bacilli in culture, start Cefepime BID COVID testing done routinely pre-op and is neg Admission and Anticipated Discharge Date Admission Date: August 05, 2020 Subjective patient remains in bed all day, will use the restroom, per patient, he is not supposed to sit with his leg dangling cultures reviewed, gram positive cocci but also gram negative bacilli discussed with pharmacy, will continue Vancomycin and add Cefepime mild pain in foot, relieved with Ultram no fever/chills, no cough, no dyspnea, no chest pain eating well, had a loose BM today, making urine with Lasix, less than initially he feels he is back to baseline weight Review of Systems Review of Systems: All systems reviewed & are unremarkable except as noted in Subjective Physical Exam Constitutional: WD/WN, vitals as above Eyes: PERRL, conjunctivae normal, anicteric sclerae ENMT: external ear and nose normal, oropharynx normal Neck: trachea midline, no thyromegaly Respiratory: normal respiratory effort, lungs clear to auscultation Cardiovascular: Rate/Rhythm: regular rate and regular rhythm Heart Sounds: normal S1 and normal S2; no murmur Vessels: no JVD Extremities: normal capillary refill and + edema (mild, left leg more than right); no calf tenderness Gastrointestinal (Abdomen): normal bowel sounds, soft, nontender, no hepatosplenomegaly Musculoskeletal: no cyanosis or clubbing, extremities motor strength 5/5 Skin: no rashes, warm and dry + wound (left foot, dressed) Neurologic: patellar DTR's 2+ bilat, sensation intact and PERRL, EOMI, acc ommodation nl, no face palsy, no dysarthria Psychiatric: A+Ox3, euthymic affect Lymphatic: no cervical or axillary lymphadenopathy Results & Data Results & Data ([facility]) Vital Signs (Past 12 Hours) Vital Signs Temp Pulse Pulse Resp BP Pulse Ox 08/10/20 14:56 36.5 C 60 16 144/79 H 94 08/10/20 14:20 60 08/10/20 11:00 36.6 C 61 16 143/83 H 93 08/10/20 09:45 73 158/77 H 08/10/20 08:02 36.8 C 59 L 16 94/56 L 95 08/10/20 07:00 59 L Laboratory Results Laboratory Results - last 24 hr 08/09/20 08/09/20 08/09/20 16:56 16:58 21:08 WBC RBC Hgb Hct MCV MCH MCHC RDW Std Deviation RDW Coeff of Diane Plt Count MPV Immature Gran % (Auto) Neut % (Auto) Lymph % (Auto) Tucker % (Auto) Eos % (Auto) Baso % (Auto) Neut # (Auto) Lymph # (Auto) Tucker # (Auto) Eos # (Auto) Baso # (Auto) Immature Gran # (Auto) Sodium Potassium Chloride Carbon Dioxide Anion Gap BUN Creatinine Est Cr Clr Drug Dosing Est GFR ( Amer) Est GFR (Non-Af Amer) BUN/Creatinine Ratio Glucose POC Glucose 69 L* 77 68 L* Calcium 08/09/20 08/10/20 08/10/20 21:39 06:03 06:03 WBC 8.61 RBC 3.48 L Hgb 8.8 L Hct 29.2 L MCV 83.9 MCH 25.3 MCHC 30.1 L RDW Std Deviation 46.0 RDW Coeff of Diane 15.2 H Plt Count 332 MPV 9.2 Immature Gran % (Auto) 0.3 Neut % (Auto) 52.6 Lymph % (Auto) 35.3 Tucker % (Auto) 6.9 Eos % (Auto) 4.3 Baso % (Auto) 0.6 Neut # (Auto) 4.53 Lymph # (Auto) 3.04 Tucker # (Auto) 0.59 Eos # (Auto) 0.37 Baso # (Auto) 0.05 Immature Gran # (Auto) 0.03 H Sodium 136 Potassium 4.9 Chloride 101 Carbon Dioxide 29 Anion Gap 6.0 BUN 41 H Creatinine 1.89 H Est Cr Clr Drug Dosing 52.2 Est GFR ( Amer) 45.6 Est GFR (Non-Af Amer) 39.3 BUN/Creatinine Ratio 21.8 H Glucose 217 H POC Glucose 101 H Calcium 8.5 08/10/20 08/10/20 07:49 11:12 WBC RBC Hgb Hct MCV MCH MCHC RDW Std Deviation RDW Coeff of Diane Plt Count MPV Immature Gran % (Auto) Neut % (Auto) Lymph % (Auto) Tucker % (Auto) Eos % (Auto) Baso % (Auto) Neut # (Auto) Lymph # (Auto) Tucker # (Auto) Eos # (Auto) Baso # (Auto) Immature Gran # (Auto) Sodium Potassium Chloride Carbon Dioxide Anion Gap BUN Creatinine Est Cr Clr Drug Dosing Est GFR ( Amer) Est GFR (Non-Af Amer) BUN/Creatinine Ratio Glucose POC Glucose 244 H 286 H Calcium Medications Administered Current Inpatient Medications Acetaminophen (Acetaminophen 325 Mg Tab) 650 mg PO Q4H PRN PRN Reason: pain/fever Stop: 09/04/20 03:03 Last Admin: 08/08/20 14:59 Dose: 650 mg Documented by: Aspirin (Aspirin 81 Mg Ectab) 81 mg PO BID LELIA Stop: 09/04/20 08:59 Last Admin: 08/10/20 09:46 Dose: 81 mg Documented by: Atorvastatin Calcium (Atorvastatin 40 Mg Tab) 80 mg PO QPM LELIA Stop: 09/04/20 20:59 Last Admin: 08/09/20 21:49 Dose: 80 mg Documented by: Bisacodyl (Bisacodyl 10 Mg Supp) 10 mg AL DAILY PRN PRN Reason: Constipation Stop: 09/07/20 12:01 Collagenase (Collagenase Oint 30 Gm Tube) 1 appln EXT DAILY LELIA Stop: 09/06/20 08:59 Last Admin: 08/10/20 09:46 Dose: Not Given Documented by: Cyanocobalamin (Cyanocobalamin 500 Mcg Tablet (Vitamin B-12)) 1,000 mcg PO QPM LELIA Stop: 09/04/20 20:59 Last Admin: 08/09/20 21:53 Dose: 1,000 mcg Documented by: Cyanocobalamin (Cyanocobalamin 1000 Mcg/Ml Vial) 1,000 mcg IM DAILY LELIA Stop: 08/10/20 18:14 Last Admin: 08/10/20 09:46 Dose: 1,000 mcg Documented by: Dextrose (Dextrose 50% 50 Ml Syringe) 25 - 50 ml IV UD PRN; Protocol PRN Reason: Hypoglycemia Protocol Stop: 09/04/20 03:03 Docusate Sodium (Docusate Sodium 100 Mg Cap) 100 mg PO BID LELIA Stop: 09/07/20 20:59 Last Admin: 08/10/20 09:44 Dose: Not Given Documented by: Fluticasone Propionate (Fluticasone Propionate Na Spr 16 Gm Btl) 1 sprays NA BID [facility] Stop: 09/04/20 08:59 Last Admin: 08/10/20 09:45 Dose: 1 sprays Documented by: Gabapentin (Gabapentin 600 Mg Tab) 600 mg PO TID LELIA Stop: 09/04/20 08:59 Last Admin: 08/10/20 14:43 Dose: 600 mg Documented by: Glucagon (Glucagon For Inj 1 Mg Vial) 1 mg SQ UD PRN; Protocol PRN Reason: Hypoglycemia Protocol Stop: 09/04/20 03:03 Glucose (Glucose 10 Tabs/Tube) 4 - 8 tabs PO UD PRN; Protocol PRN Reason: Hypoglycemia Protocol Stop: 09/04/20 03:03 Glucose (Glucose 40% Gel 15 Gm Tube) 15 - 30 gm PO UD PRN; Protocol PRN Reason: Hypoglycemia Protocol Stop: 09/04/20 03:03 Heparin Sodium (Porcine) (Heparin Sod 5,000 Unit/0.5 Ml Vial) 5,000 units SQ Q8 LELIA Stop: 09/04/20 05:59 Last Admin: 08/10/20 14:18 Dose: 5,000 units Documented by: Furosemide 20 mg/ Syringe 2 mls @ 4 mls/min IV BID [facility] Stop: 09/08/20 20:59 Last Admin: 08/10/20 09:47 Dose: 4 mls/min Documented by: Vancomycin HCl 1,500 mg/ (Sodium Chloride) 530 mls @ 200 mls/hr IV Q16H [facility] Stop: 09/21/20 01:59 Last Infusion: 08/10/20 06:54 Dose: Infused Documented by: Cefepime HCl 2,000 mg/ Syringe 20 mls @ 5 mls/min IV Q12 [facility]; Protocol Stop: 08/17/20 20:59 Insulin Aspart (Insulin Aspart 100 Units/Ml 3 Ml Pen) 0 units SC ACHS [facility] Stop: 09/04/20 03:44 Last Admin: 08/10/20 12:18 Dose: 21 units Documented by: Insulin Glargine (Insulin Glargine Solostar 100 Units/Ml 3 Ml Pen) 35 units SQ BID [facility] Stop: 09/09/20 08:59 Last Admin: 08/10/20 09:45 Dose: 35 units Documented by: Magnesium Hydroxide (Magnesium Hydroxide Susp 30 Ml Udc) 30 ml PO Q6H PRN PRN Reason: Constipation Stop: 09/07/20 12:01 Magnesium Oxide (Magnesium Oxide 400 Mg Tab) 400 mg PO QPM LELIA Stop: 09/04/20 20:59 Last Admin: 08/09/20 21:50 Dose: 400 mg Documented by: Metoclopramide HCl (Metoclopramide Hcl Inj 5 Mg/Ml 2 Ml Vial) 10 mg IV Q6H PRN PRN Reason: Nausea And Vomiting Stop: 09/07/20 12:01 Metoprolol Succinate (Metoprolol Succ 50mg Ext Rel Tab) 150 mg PO QPM LELIA Stop: 09/04/20 20:59 Last Admin: 08/09/20 21:51 Dose: 150 mg Documented by: Miscellaneous (Carbohydrates For Hypoglycemia ) 15 - 30 gm PO UD PRN PRN Reason: Hypoglycemia Protocol Stop: 09/04/20 03:03 Miscellaneous Information (Pharmacy Glycemic Mgmt Consult) 1 ea N/A UD PRN; Protocol PRN Reason: Consult Stop: 09/04/20 03:20 Miscellaneous Information (Vancomycin Consult Active) 1 ea N/A UD PRN PRN Reason: Consult Stop: 09/08/20 09:14 Multivitamins (Multivitamin Tab) 1 tab PO QAM LELIA Stop: 09/08/20 08:59 Last Admin: 08/10/20 09:44 Dose: 1 tab Documented by: Naloxone HCl (Naloxone Hcl 0.4 Mg/1 Ml Vial/Carp) 0.1 mg IV Q5M PRN PRN Reason: Oversedation/Resp Depression Stop: 09/07/20 12:01 Ondansetron HCl (Ondansetron Inj 2 Mg/Ml 2 Ml Vial) 4 mg IV Q6H PRN PRN Reason: Nausea And Vomiting Stop: 09/07/20 12:01 Pantoprazole Sodium (Pantoprazole 40 Mg Tab) 40 mg PO QPM LELIA Stop: 09/04/20 20:59 Last Admin: 08/09/20 21:54 Dose: 40 mg Documented by: Polyethylene Glycol (Polyethylene (Miralax) 17 Gm Pack) 17 gm PO BID PRN PRN Reason: constipation Stop: 09/04/20 03:03 Sennosides (Senna 8.6 Mg Tab) 17.2 mg PO HS LELIA Stop: 09/07/20 20:59 Last Admin: 08/09/20 21:44 Dose: Not Given Documented by: Tramadol HCl (Tramadol Hcl 50 Mg Tablet) 50 mg PO Q6H PRN PRN Reason: Pain Stop: 09/04/20 03:03 Last Admin: 08/10/20 00:01 Dose: 50 mg Documented by: PG Care Time/CCT Total # of Minutes Spent Total Time Spent with Patient: Total time spent is greater than 50% in coordination of care (as documented) at patient's floor/unit and/or counseling patient: Coding Level of Care Code 01591 Subseq Hosp Care Lvl 3 Diagnoses Dyspnea R06.02 Dyspnea type: shortness of breath Hyperglycemia R73.9 CKD (chronic kidney disease) N18.9 Chronic kidney disease stage: unspecified stage Anemia D64.9 Anemia type: unspecified type Leg edema R60.0 WHIT (obstructive sleep apnea) G47.33 Hypertension I10 Hypertension type: essential hypertension Dyslipidemia E78.5 Diabetes E11.621; L97.509; Z79.4 Diabetes mellitus complication detail: with foot ulcer Diabetes mellitus complication status: with skin complications Diabetes mellitus longterm insulin use: with longterm use Diabetes mellitus type: type 2 Foot ulcer L97.509 (1) Diabetes Diabetes mellitus complication detail: with foot ulcer Diabetes mellitus complication status: with skin complications Diabetes mellitus 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 goods drier 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: with longterm use Diabetes mellitus type: type 2 Qualified Code(s): E11.621 - Type 2 diabetes mellitus with foot ulcer; L97.509 - Non- pressure chronic ulcer of other part of unspecified foot with unspecified severity; 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
[2020-08-10] MEDS: ATORVASTATIN 40 MG TAB PO SCH (20:39)
[2020-08-10] MEDS: MAGNESIUM OXIDE 400 MG TAB PO SCH (20:39)
[2020-08-10] MEDS: PANTOprazole 40 MG TAB PO SCH (20:41)
[2020-08-10] MEDS: METOPROLOL SUCC 50MG EXT REL TAB PO SCH (20:41)
[2020-08-10] MEDS: SENNA 8.6 MG TAB PO SCH (20:41)
[2020-08-10] MEDS: ACETAMINOPHEN 325 MG TAB PO PRN (20:42)
[2020-08-10] MEDS: CYANOCOBALAMIN 500 MCG TABLET (VITAMIN B-12) PO SCH (20:42)
[2020-08-10] MEDS ORDERED: CEFEPIME 2,000 MG in SYRINGE 0 ML IV SCH (21:00)
[2020-08-11] MEDS: HEPARIN SOD 5,000 UNIT/0.5 ML VIAL SQ SCH ×3 (06:29→22:11)
[2020-08-11] MEDS: DOCUSATE SODIUM 100 MG CAP PO SCH ×2 (08:10→20:58)
[2020-08-11] MEDS: FUROSEMIDE 20 MG in SYRINGE 0 ML IV SCH (08:10)
[2020-08-11] MEDS: FLUTICASONE PROPIONATE NA SPR 16 GM BTL SCH ×2 (08:10→21:03)
[2020-08-11] MEDS: MULTIVITAMIN TAB PO SCH (08:10)
[2020-08-11] MEDS: GABAPENTIN 600 MG TAB PO SCH ×3 (08:10→20:58)
[2020-08-11] MEDS: INSULIN GLARGINE SOLOSTAR 100 UNITS/ML 3 ML PEN SQ SCH ×2 (08:11→21:01)
[2020-08-11] MEDS: ASPIRIN 81 MG ECTAB PO SCH ×2 (08:11→20:58)
[2020-08-11] MEDS: INSULIN ASPART 100 UNITS/ML 3 ML PEN SC SCH ×4 (08:12→21:02)
[2020-08-11] MEDS ORDERED: VANCOMYCIN TROUGH ONE (09:30)
[2020-08-11 09:55] LABS: Basophils # (auto) 0.03 K/uL (0-0.2); Basophils % (auto) 0.4 %; Eosinophils % (auto) 7.7 %; Hematocrit (blood only) 30.8 % (42-52); Hemoglobin 9.4 g/dL (14.0-18.0); Immature Granulocytes # (auto) 0.04 K/uL (0.00-0.02); Immature Granulocytes % (auto) 0.5 %; Lymphocytes # (auto) 2.23 K/uL (1.2-3.4); Lymphocytes % (auto) 28.6 %; Mean Corpuscular Hemoglobin 25.4 pg (25-34); Mean Corpuscular Hgb Conc 30.5 g/dL (32-36); Mean Corpuscular Volume 83.2 fL (80-100); Monocytes # (auto) 0.67 K/uL (0.11-0.59); Monocytes % (auto) 8.6 %; Neutrophils # (auto) 4.22 K/uL (1.4-6.5); Neutrophils % (auto) 54.2 %; Platelet Count 305 K/uL (130-400); RDW Standard Deviation 45.3 fL (36.4-46.3); White Blood Count 7.79 K/uL (4.8-10.8)
[2020-08-11] MEDS: VANCOMYCIN HCL 1,500 MG in SODIUM CHLORIDE 0.9% 500 ML IV SCH (10:12)
[2020-08-11] MEDS: COLLAGENASE OINT 30 GM TUBE EXT SCH (10:12)
--- NOTE | 2020-08-11 10:14 | Hospitalist Progress Note ---
Date of Service August 11, 2020 Assessment & Plan (1) Dyspnea: Patient with hypoxia, 87% on room air, improved with supplemental O2. Dyspnea ?secondary to volume overload - multifactorial, CHF, renal dysfunction, lymphedema. 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) patient admits that increasing doses of Lasix PO do not work for him, he never noticed a change in output his Cr is 1.79 today will try Bumex 1mg PO daily tomorrow morning, see if it has more of an effect he appears slightly volume overloaded still today with left leg edema (2) Foot ulcer: Seen by wound care nursing and felt more advanced than wound care issues, recs for gen surg c/s Gen surg also feels more advanced than their scope LE US noted as triphasic in most regions other than biphasic in L peroneal and monophasic in L dorsalis pedis MRI noted for "very early" osteo in 5th metatarsal OR on 08/08 for debridement and abx bead placement wound culture with MSSA, Proteus, Pasteurella and anaerobe change antibiotics to Rocephin and Flagyl orthopedic surgery likely to take back to OR on Monday, but that will depend on how he is healing (3) Hyperglycemia: Elevated blood sugar, poorly controlled DM -Continue insulin - Lantus BID 35 units if < 180, 45 units if > 180 Novolog SS -Glycemic management consultation appreciated A1c 7.8 sugars labile, had hyperglycemia this afternoon (4) CKD (chronic kidney disease): Near baseline renal function. Electrolytes stable -Renal dosing -Avoid nephrotoxic agents Cr is 1.7 today, electrolytes stable start on Bumex 1mg PO daily (5) Anemia: Slow decline in H/H. Normochromic/normocytic. No obvious source of bleed. ?if anemia is contributing to overall symptoms of dyspnea. ?utility of IV iron infusions in anemic patient with CHF -Continue to monitor Iron low normal despite low normal MCV B12 is low normal at 332 with folate WNL Listed on home meds Start B12 injections 08/06, last 08/10 Hb is 9.4 today (6) Leg edema: Chronic. Stable -Diuresis as above -Encourage elevation (7) WHIT (obstructive sleep apnea): Chronic -CPAP [id number] qHS (8) Hypertension: Blood pressure elevated -Continue home medications, Metoprolol -Continue to monitor (9) Dyslipidemia: Chronic -Continue Atorvastatin (10) Diabetes: As above -Lantus, ISS -Goal blood sugar 100 - 140 -Glycemic management consultation appreciated Ppx - Heparin. Code - Full Dispo - Admit to medical with telemetry Admission and Anticipated Discharge Date Admission Date: August 05, 2020 Subjective patient feels the same as yesterday, no specific complaints still with swelling in left leg more than right leg, left foot wrapped I discussed with orthopedics, plan to watch wound, daily dressing changes, will decide later this week if he needs repeat debridement on Monday reviewed cultures, growing S aureus, Proteus, Pasteurella as well as anaerobe spoke with pharmacy, will use Rocephin and Flagyl, stop Vanco and Cefepime CBC with WBC 7.7 and Hb 9.4 Review of Systems Review of Systems: All systems reviewed & are unremarkable except as noted in Subjective Cardiovascular: + edema (left leg/foot) Musculoskeletal: + joint pain (left foot pain) Physical Exam Constitutional: WD/WN, vitals as above Eyes: PERRL, conjunctivae normal, anicteric sclerae ENMT: external ear and nose normal, oropharynx normal Neck: trachea midline, no thyromegaly Respiratory: normal respiratory effort, lungs clear to auscultation Cardiovascular: Rate/Rhythm: regular rate and regular rhythm Heart Sounds: normal S1 and normal S2; no murmur Vessels: no JVD Extremities: normal capillary refill and + edema (mild, left leg more than right); no calf tenderness Gastrointestinal (Abdomen): normal bowel sounds, soft, nontender, no hepatosplenomegaly Musculoskeletal: no cyanosis or clubbing, extremities motor strength 5/5 Skin: no rashes, warm and dry + wound (left foot, dressed) Neurologic: patellar DTR's 2+ bilat, sensation intact and PERRL, EOMI, accommodation nl, no face palsy, no dysarthria Psychiatric: A+Ox3, euthymic affect Lymphatic: no cervical or axillary lymphadenopathy Results & Data Results & Data ([facility]) Vital Signs (Past 12 Hours) Vital Signs Temp Pulse Pulse Resp BP Pulse Ox 08/11/20 09:52 52 L 08/11/20 07:00 36.5 C 54 L 20 157/79 H 97 08/11/20 03:00 36.6 C 51 L 18 148/67 H 97 08/11/20 00:08 60 08/10/20 23:34 36.6 C 55 L 20 129/71 95 Laboratory Results Laboratory Results - last 24 hr 08/10/20 08/11/20 08/11/20 20:06 07:27 09:40 WBC RBC Hgb Hct MCV MCH MCHC RDW Std Deviation RDW Coeff of Diane Plt Count MPV Immature Gran % (Auto) Neut % (Auto) Lymph % (Auto) [place] % (Auto) Eos % (Auto) Baso % (Auto) Neut # (Auto) Lymph # (Auto) [place] # (Auto) Eos # (Auto) Baso # (Auto) Immature Gran # (Auto) Sodium Potassium Chloride Carbon Dioxide Anion Gap BUN Creatinine Est Cr Clr Drug Dosing Est GFR ( Amer) Est GFR (Non-Af Amer) BUN/Creatinine Ratio Glucose POC Glucose 152 H 221 H Calcium Beta-Hydroxybutyric Acd Vancomycin Trough 23.2 08/11/20 08/11/20 08/11/20 09:40 09:40 11:33 WBC 7.79 RBC 3.70 L Hgb 9.4 L Hct 30.8 L MCV 83.2 MCH 25.4 MCHC 30.5 L RDW Std Deviation 45.3 RDW Coeff of Diane 15.0 H Plt Count 305 MPV 9.0 Immature Gran % (Auto) 0.5 Neut % (Auto) 54.2 Lymph % (Auto) 28.6 [place] % (Auto) 8.6 Eos % (Auto) 7.7 Baso % (Auto) 0.4 Neut # (Auto) 4.22 Lymph # (Auto) 2.23 [place] # (Auto) 0.67 H Eos # (Auto) 0.60 H Baso # (Auto) 0.03 Immature Gran # (Auto) 0.04 H Sodium 134 L Potassium 4.6 Chloride 101 Carbon Dioxide 28 Anion Gap 5.0 BUN 39 H Creatinine 1.79 H Est Cr Clr Drug Dosing 55.7 Est GFR ( Amer) 48.7 Est GFR (Non-Af Amer) 42.0 BUN/Creatinine Ratio 21.9 H Glucose 317 H* POC Glucose 306 H* Calcium 8.7 Beta-Hydroxybutyric Acd 0.73 Vancomycin Trough 08/11/20 08/11/20 11:35 16:31 WBC RBC Hgb Hct MCV MCH MCHC RDW Std Deviation RDW Coeff of Diane Plt Count MPV Immature Gran % (Auto) Neut % (Auto) Lymph % (Auto) [place] % (Auto) Eos % (Auto) Baso % (Auto) Neut # (Auto) Lymph # (Auto) [place] # (Auto) Eos # (Auto) Baso # (Auto) Immature Gran # (Auto) Sodium Potassium Chloride Carbon Dioxide Anion Gap BUN Creatinine Est Cr Clr Drug Dosing Est GFR ( Amer) Est GFR (Non-Af Amer) BUN/Creatinine Ratio Glucose POC Glucose 320 H* 147 H Calcium Beta-Hydroxybutyric Acd Vancomycin Trough Medications Administered Current Inpatient Medications Acetaminophen (Acetaminophen 325 Mg Tab) 650 mg PO Q4H PRN PRN Reason: pain/fever Stop: 09/04/20 03:03 Last Admin: 08/10/20 20:42 Dose: 650 mg Documented by: Aspirin (Aspirin 81 Mg Ectab) 81 mg PO BID LELIA Stop: 09/04/20 08:59 Last Admin: 08/11/20 08:11 Dose: 81 mg Documented by: Atorvastatin Calcium (Atorvastatin 40 Mg Tab) 80 mg PO QPM LELIA Stop: 09/04/20 20:59 Last Admin: 08/10/20 20:39 Dose: 80 mg Documented by: Bisacodyl (Bisacodyl 10 Mg Supp) 10 mg WA DAILY PRN PRN Reason: Constipation Stop: 09/07/20 12:01 Bumetanide (Bumetanide 1 Mg Tab) 1 mg PO QAM LELIA Stop: 09/11/20 08:59 Collagenase (Collagenase Oint 30 Gm Tube) 1 appln EXT DAILY LELIA Stop: 09/06/20 08:59 Last Admin: 08/11/20 10:12 Dose: 1 appln Documented by: Cyanocobalamin (Cyanocobalamin 500 Mcg Tablet (Vitamin B-12)) 1,000 mcg PO QPM LELIA Stop: 09/04/20 20:59 Last Admin: 08/10/20 20:42 Dose: 1,000 mcg Documented by: Dextrose (Dextrose 50% 50 Ml Syringe) 25 - 50 ml IV UD PRN; Protocol PRN Reason: Hypoglycemia Protocol Stop: 09/04/20 03:03 Docusate Sodium (Docusate Sodium 100 Mg Cap) 100 mg PO BID LELIA Stop: 09/07/20 20:59 Last Admin: 08/11/20 08:10 Dose: 100 mg Documented by: Fluticasone Propionate (Fluticasone Propionate Na Spr 16 Gm Btl) 1 sprays NA BID LELIA Stop: 09/04/20 08:59 Last Admin: 08/11/20 08:10 Dose: 1 sprays Documented by: Gabapentin (Gabapentin 600 Mg Tab) 600 mg PO TID LELIA Stop: 09/04/20 08:59 Last Admin: 08/11/20 08:10 Dose: 600 mg Documented by: Glucagon (Glucagon For Inj 1 Mg Vial) 1 mg SQ UD PRN; Protocol PRN Reason: Hypoglycemia Protocol Stop: 09/04/20 03:03 Glucose (Glucose 10 Tabs/Tube) 4 - 8 tabs PO UD PRN; Protocol PRN Reason: Hypoglycemia Protocol Stop: 09/04/20 03:03 Glucose (Glucose 40% Gel 15 Gm Tube) 15 - 30 gm PO UD PRN; Protocol PRN Reason: Hypoglycemia Protocol Stop: 09/04/20 03:03 Heparin Sodium (Porcine) (Heparin Sod 5,000 Unit/0.5 Ml Vial) 5,000 units SQ Q8 LELIA Stop: 09/04/20 05:59 Last Admin: 08/11/20 06:29 Dose: Not Given Documented by: Vancomycin HCl 1,500 mg/ (Sodium Chloride) 530 mls @ 200 mls/hr IV Q16H [facility] Stop: 09/21/20 01:59 Last Admin: 08/11/20 10:12 Dose: 200 mls/hr Documented by: Cefepime HCl 2,000 mg/ Syringe 20 mls @ 5 mls/min IV Q24H [facility]; Protocol Stop: 08/17/20 20:59 Last Admin: 08/10/20 20:39 Dose: 5 mls/min Documented by: Insulin Aspart (Insulin Aspart 100 Units/Ml 3 Ml Pen) 0 units SC ACHS [facility] Stop: 09/04/20 03:44 Last Admin: 08/11/20 08:12 Dose: 17 units Documented by: Insulin Glargine (Insulin Glargine Solostar 100 Units/Ml 3 Ml Pen) 0 units SQ BID LELIA; Protocol Stop: 09/10/20 20:59 Insulin Glargine (Insulin Glargine Solostar 100 Units/Ml 3 Ml Pen) 10 units SQ QDL ONE; Protocol Stop: 08/11/20 11:31 Magnesium Hydroxide (Magnesium Hydroxide Susp 30 Ml Udc) 30 ml PO Q6H PRN PRN Reason: Constipation Stop: 09/07/20 12:01 Magnesium Oxide (Magnesium Oxide 400 Mg Tab) 400 mg PO QPM LELIA Stop: 09/04/20 20:59 Last Admin: 08/10/20 20:39 Dose: 400 mg Documented by: Metoclopramide HCl (Metoclopramide Hcl Inj 5 Mg/Ml 2 Ml Vial) 10 mg IV Q6H PRN PRN Reason: Nausea And Vomiting Stop: 09/07/20 12:01 Metoprolol Succinate (Metoprolol Succ 50mg Ext Rel Tab) 150 mg PO QPM [facility] Stop: 09/04/20 20:59 Last Admin: 08/10/20 20:41 Dose: 150 mg Documented by: Miscellaneous (Carbohydrates For Hypoglycemia ) 15 - 30 gm PO UD PRN PRN Reason: Hypoglycemia Protocol Stop: 09/04/20 03:03 Miscellaneous Information (Pharmacy Glycemic Mgmt Consult) 1 ea N/A UD PRN; Protocol PRN Reason: Consult Stop: 09/04/20 03:20 Miscellaneous Information (Vancomycin Consult Active) 1 ea N/A UD PRN PRN Reason: Consult Stop: 09/08/20 09:14 Multivitamins (Multivitamin Tab) 1 tab PO QAM [facility] Stop: 09/08/20 08:59 Last Admin: 08/11/20 08:10 Dose: 1 tab Documented by: Naloxone HCl (Naloxone Hcl 0.4 Mg/1 Ml Vial/Carp) 0.1 mg IV Q5M PRN PRN Reason: Oversedation/Resp Depression Stop: 09/07/20 12:01 Ondansetron HCl (Ondansetron Inj 2 Mg/Ml 2 Ml Vial) 4 mg IV Q6H PRN PRN Reason: Nausea And Vomiting Stop: 09/07/20 12:01 Pantoprazole Sodium (Pantoprazole 40 Mg Tab) 40 mg PO QPM [facility] Stop: 09/04/20 20:59 Last Admin: 08/10/20 20:41 Dose: 40 mg Documented by: Polyethylene Glycol (Polyethylene (Miralax) 17 Gm Pack) 17 gm PO BID PRN PRN Reason: constipation Stop: 09/04/20 03:03 Sennosides (Senna 8.6 Mg Tab) 17.2 mg PO HS LELIA Stop: 09/07/20 20:59 Last Admin: 08/10/20 20:41 Dose: 17.2 mg Documented by: Tramadol HCl (Tramadol Hcl 50 Mg Tablet) 50 mg PO Q6H PRN PRN Reason: Pain Stop: 09/04/20 03:03 Last Admin: 08/10/20 00:01 Dose: 50 mg Documented by: PG Care Time/CCT Total # of Minutes Spent Total Time Spent with Patient: Total time spent is greater than 50% in coordination of care (as documented) at patient's floor/unit and/or counseling patient: Coding Level of Care Code 29412 Subseq Hosp Care Lvl 3 Diagnoses Dyspnea R06.02 Dyspnea type: shortness of breath Foot ulcer L97.509 Hyperglycemia R73.9 CKD (chronic kidney disease) N18.9 Chronic kidney disease stage: unspecified stage Anemia D64.9 Anemia type: unspecified type Leg edema R60.0 WHIT (obstructive sleep apnea) G47.33 Hypertension I10 Hypertension type: essential hypertension Dyslipidemia E78.5 Diabetes E11.621; L97.509; Z79.4 Diabetes mellitus complication detail: with foot ulcer Diabetes mellitus complication status: with skin complications 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 Diabetes mellitus type: type 2 (1) Diabetes Diabetes mellitus complication detail: with foot ulcer Diabetes mellitus complication status: with skin complications 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: with residential 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 Diabetes mellitus type: type 2 Qualified Code(s): E11.621 - Type 2 diabetes mellitus with foot ulcer; L97.509 - Non- pressure chronic ulcer of other part of unspecified foot with unspecified severity; 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
[2020-08-11 10:46] LABS: BUN Creatinine Ratio 21.9 (10-20); Calcium 8.7 mg/dl (8.5-10.1); Creatinine Clr Calc Pharmacy 55.7 ml/min; Est GFR (African American) 48.7; Potassium 4.6 mmol/L (3.5-5.1)
[2020-08-11 11:03] LABS: Beta-Hydroxybutyrate 0.73 mg/dl (0.2-2.81)
[2020-08-11] MEDS ORDERED: INSULIN GLARGINE SOLOSTAR 100 UNITS/ML 3 ML PEN SQ ONE (11:30)
--- NOTE | 2020-08-11 11:46 | Pharmacy Report ---
Pharmacy Glycemic Short Note 2 - Date of Service August 11, 2020 - Glycemic Short BSG Results (Last 24 hours): 08/10/20 08/10/20 08/11/20 16:46 20:06 07:27 Glucose POC Glucose 145 H 152 H 221 H 08/11/20 08/11/20 08/11/20 09:40 11:33 11:35 Glucose 317 H* POC Glucose 306 H* 320 H* OUTPATIENT ANTIDIABETIC REGIMEN: * Lantus 25 units QPM * U500 40 units with breakfast and lunch, 55 units with dinner * TDD: 160 units/day * A1c 7.8% 08/05/20 ASSESSMENT: 08/11: * AM fasting BSG again elevated today. Will increase Lantus * BSG >300 mg/dL at lunch today - will tighten CHO ratio, but not quite as tight as previous which precipitated hypoglycemia 08/10: * Effect of dexamethasone 4 mg IV intraop administered on 08/08 likely wearing off * Mild hypoglycemia noted with dinner and at HS yesterday, likely 2nd too tight of CHO ratio with steroid effects wearing off. Will loosen back to previous Novolog parameters prior to steroids * AM fasting hyperglycemia noted this AM - possibly the result of reduced Lantus dose last night (total of 65 units administered yesterday), but suspect that correction of hypoglycemic event at HS yesterday contributing. Will increase Lantus dose only slightly 08/07: * Pt received 125 units of insulin yesterday: * 40 of basal * 85 of correctional/prandial * BSGs [phone] mg/dl * Regimen more heavily weight to prandial/correctional- will continue to titrate lantus up- patient was only comfortable with taking 25 units at night, will set scale up to 30 units tonight if patient agreeable, otherwise continue to titrate up morning dose * Prandial BSGs acceptable yesterday, elevated at lunch today however, insulin administration later in morning (late breakfast). Will continue current p arameters, overnight BSGS 08/06: * Patient received ~116 units of insulin yesterday, hyperglycemic overnight with high fasting in AM. Patient not comfortable with taking more than 25 units of lantus at night d/t concern for hypoglycemia, therefore will split lantus into BID dosing. He received an additional 25 units this morning. * Will continue current novolog parameters as lunch BSG improved today. Will continue overnight checks. * After discussion with outreach educator patient reports he was taking U500 as one dose at bedtime (80 units) and not earlier in the day d/t concern with hypoglycemic at work. 08/05: * Mr. Swartz's A1c greatly improved from last visit, total daily insulin requirement is less than previous as well. Patient maintained on U500 insulin + lantus outpatient. * Will use lantus/novolog basal bolus, as known to glycemic service. Will begin with stress of two novolog dosing based on current outpatient total daily dose and lantus dose that is slightly reduced from this PLAN FOR INPATIENT GLYCEMIC CONTROL: * Hold outpatient oral diabetes medications * Basal insulin * Lantus 10 units SC x1 now, then 35-45 units BID based on BSG (see MAR for details) * Bolus insulin * NovoLog per scale ACHS or Q6hrs while NPO * Goal Range: Low 110 mg/dL - High 140 mg/dL * Correction Factor: 10 mg/dL/unit * Nutritional / Prandial insulin per carb ratio of 1 unit per 2.5 grams CHO consumed
[2020-08-11] MEDS: metroNIDAZOLE 500 MG/100 ML BAG IV SCH ×2 (17:12→23:54)
--- NOTE | 2020-08-11 17:16 | Orthopedic Progress Note ---
Date of Service August 11, 2020 Assessment & Plan (1) Foot ulcer: POD #3, 1. Left foot irrigation and debridement of a 4.0 cm x 3.75 cm x 1.4 cm diabetic neuropathic ulceration. 2. Irrigation and debridement, left foot including skin/fascia/subcutaneous tissue/tendon/periosteum and fifth metatarsal bone. 3. Application of Stimulan beads 5 mL containing gentamicin and vancomycin PT/ OT--NWB Left LE Currently on Vanco. Culture as noted below. Disposition per primary team. Dressing changed today. Discussed NWB status to encourage healing. Wound continues to look ok. Will discuss with Dr Bernardo. Admission and Anticipated Discharge Date Admission Date: August 05, 2020 Subjective Pt lying in bed awake, alert. No complaints currently. Physical Exam Physical Exam: Dressing removed on the left foot. Mild drainage noted on dressing. No foul odor. Surgical debridement site appears benign. No purulent drainage. Aiden intact. No minimal erythema at the lateral portion of the wound. Wound redressed. Results & Data ([facility]) Vital Signs (Past 12 Hours) Vital Signs Temp Pulse Pulse Resp BP Pulse Ox 08/11/20 15:37 70 08/11/20 15:11 36.6 C 55 L 18 145/74 H 94 08/11/20 11:00 36.6 C 54 L 20 157/77 H 96 08/11/20 09:52 52 L 08/11/20 07:00 36.5 C 54 L 20 157/79 H 97 Laboratory Results christel: BING REYNOLDS Shantanu Acct: [id number] Status: ADM IN : 1965 [facility] [place] Date: 08/05/20 Age: 55 Sex: M Dis Date: Loc: [address]/Bed: N277-1 Spec: [id number] Collected: 08/08/20-UNK Received: 08/08/20-[address]: Iván Bernardo D.O. Copy To: Trinidad Ram D.O. Source: Foot,Left OV Order: Ordered: Aer/Bhavna Cult/Sm Comments: Comment 1. Deep Plantar Lateral Foot Procedure Result Verified Site Gram Stain Final 08/08/20-1459 Gram Stain Result No Epithelial Cells No WBCs Seen Moderate Gram Positive Cocci Aero/Bhavna Cult Preliminary 08/11/20-1422 Organism 1 Proteus mirabilis Quantity Moderate Sens Sensitivities to Follow Organism 2 Staphylococcus aureus Quantity Few Sens Sensitivities to Follow Organism 3 Pasteurella multocida Quantity Moderate Sens No Sensitivities to Follow Organism 4 Parabacteroides (B) distasonis Quantity Rare Sens No Sensitivities to Follow P mirabili S aureus RX M.I.C. RX M.I.C. --- --------- --- --------- Amikacin S <=16 Ampicillin S <=8 Amp/Sul S <=8/4 Cefazolin S <=8 Cefepime S <=4 Cefotaxime S <=2 Cefoxitin S <=8 Ceftriaxone S <=1 Cefuroxime S <=4 Ciprofloxacin S <=1 Clindamycin S <=0.5 Daptomycin S <=0.5 Ertapenem S <=1 Erythromycin R >4 Gentamicin S <=4 Levofloxacin S <=2 Oxacillin S 1 Tetracycline S <=4 Tobramycin S <=4 Trimeth/Sulfa S <=2/38 S <=0.5/9.5 Pip/Tazo S <=16 Vancomycin S 2 S = SENSITIVE I = INTERMEDIATE R = RESISTANT
[2020-08-11] MEDS: PANTOprazole 40 MG TAB PO SCH (20:58)
[2020-08-11] MEDS: ATORVASTATIN 40 MG TAB PO SCH (20:59)
[2020-08-11] MEDS: MAGNESIUM OXIDE 400 MG TAB PO SCH (20:59)
[2020-08-11] MEDS: METOPROLOL SUCC 50MG EXT REL TAB PO SCH (21:00)
[2020-08-11] MEDS: CYANOCOBALAMIN 500 MCG TABLET (VITAMIN B-12) PO SCH (21:00)
[2020-08-11] MEDS: SENNA 8.6 MG TAB PO SCH (21:00)
[2020-08-11] MEDS: cefTRIAXone SODIUM 2,000 MG in DEXTROSE 5% 50 ML IV SCH (21:09)
[2020-08-12] MEDS: HEPARIN SOD 5,000 UNIT/0.5 ML VIAL SQ SCH ×3 (05:27→21:26)
[2020-08-12 06:16] LABS: Basophils # (auto) 0.02 K/uL (0-0.2); Basophils % (auto) 0.2 %; Eosinophils # (auto) 0.56 K/uL (0-0.5); Eosinophils % (auto) 6.1 %; Hematocrit (blood only) 28.9 % (42-52); Immature Granulocytes # (auto) 0.04 K/uL (0.00-0.02); Immature Granulocytes % (auto) 0.4 %; Lymphocytes # (auto) 3.21 K/uL (1.2-3.4); Lymphocytes % (auto) 34.7 %; Mean Corpuscular Hemoglobin 25.6 pg (25-34); Mean Corpuscular Hgb Conc 31.1 g/dL (32-36); Mean Corpuscular Volume 82.3 fL (80-100); Mean Platelet Volume 9.2 fL (7.4-10.4); Monocytes # (auto) 0.54 K/uL (0.11-0.59); Monocytes % (auto) 5.8 %; Neutrophils # (auto) 4.88 K/uL (1.4-6.5); Neutrophils % (auto) 52.8 %; Platelet Count 293 K/uL (130-400); RDW Coefficient of Variation 15.1 % (11.5-14.5); RDW Standard Deviation 44.4 fL (36.4-46.3); Red Blood Count 3.51 M/uL (4.7-6.1); White Blood Count 9.25 K/uL (4.8-10.8)
[2020-08-12 06:44] LABS: Calcium 9.3 mg/dl (8.5-10.1); Creatinine Clr Calc Pharmacy 61.3 ml/min; Est GFR (African American) 55.4; Est GFR (Non-African American) 47.8; Potassium 4.3 mmol/L (3.5-5.1)
[2020-08-12] MEDS ORDERED: FUROSEMIDE 20 MG TAB PO SCH (09:00)
[2020-08-12] MEDS ORDERED: BUMETANIDE 1 MG TAB PO SCH (09:00)
[2020-08-12] MEDS: DOCUSATE SODIUM 100 MG CAP PO SCH ×3 (09:14→21:29)
[2020-08-12] MEDS: MULTIVITAMIN TAB PO SCH (09:14)
[2020-08-12] MEDS: ASPIRIN 81 MG ECTAB PO SCH ×2 (09:14→21:26)
[2020-08-12] MEDS: GABAPENTIN 600 MG TAB PO SCH ×3 (09:14→21:25)
[2020-08-12] MEDS: FLUTICASONE PROPIONATE NA SPR 16 GM BTL SCH ×2 (09:15→21:25)
[2020-08-12] MEDS: COLLAGENASE OINT 30 GM TUBE EXT SCH (09:16)
[2020-08-12] MEDS: INSULIN ASPART 100 UNITS/ML 3 ML PEN SC SCH ×4 (09:17→21:24)
[2020-08-12] MEDS: INSULIN GLARGINE SOLOSTAR 100 UNITS/ML 3 ML PEN SQ SCH ×2 (09:17→21:25)
[2020-08-12] MEDS: metroNIDAZOLE 500 MG/100 ML BAG IV SCH ×3 (09:21→23:22)
--- NOTE | 2020-08-12 16:27 | Hospitalist Progress Note ---
Date of Service August 12, 2020 Assessment & Plan (1) Dyspnea: Patient with hypoxia, 87% on room air, improved with supplemental O2. Dyspnea ?secondary to volume overload - multifactorial, CHF, renal dysfunction, lymphedema. Patient reports his last known dry weight appx 6 months ago was 247# -Admit to medical floor -Lasix 60mg IV BID, decreased to 40mg BID on 08/08 PM dose given increased cr overnight, further decrease to 20mg IV BID on 08/09 PM dose Home dosing is 20mg PO BID (he had been working with PCP with a higher dose for swelling for a few days [employer]) patient admits that increasing doses of Lasix PO do not work for him, he never noticed a change in output his Cr is 1.6 today continue Bumex 1mg PO daily, responding well, might consider BID dosing he appears slightly volume overloaded still today with left leg edema but it is improved (2) Foot ulcer: LE US noted as triphasic in most regions other than biphasic in L peroneal and monophasic in L dorsalis pedis MRI noted for "very early" osteo in 5th metatarsal OR on 08/08 for debridement and abx bead placement wound culture with MSSA, Proteus, Pasteurella and anaerobe change antibiotics to Rocephin and Flagyl orthopedic surgery hoping to not need to take back to OR will need to determine if he needs IV antibiotics roasterman consult ID to see tomorrow (3) Hyperglycemia: Elevated blood sugar, poorly controlled DM -Continue insulin - Lantus BID 35 units if < 180, 45 units if > 180 Novolog SS -Glycemic management consultation appreciated A1c 7.8 sugars labile, better controlled today, no hypoglycemic episodes (4) CKD (chronic kidney disease): Near baseline renal function. Electrolytes stable -Renal dosing -Avoid nephrotoxic agents Cr is 1.6 today, electrolytes stable start on Bumex 1mg PO daily, tolerating well, will try BID dosing tomorrow (5) Anemia: Slow decline in H/H. Normochromic/normocytic. No obvious source of blee d. ?if anemia is contributing to overall symptoms of dyspnea. ?utility of IV iron infusions in anemic patient with CHF -Continue to monitor Iron low normal despite low normal MCV B12 is low normal at 332 with folate WNL Listed on home meds Start B12 injections 08/06, last 08/10 Hb is 9.0 today (6) Leg edema: Chronic. Stable -Diuresis as above -Encourage elevation (7) WHIT (obstructive sleep apnea): Chronic -CPAP [id number] qHS (8) Hypertension: Blood pressure stable -Continue home medications, Metoprolol -Continue to monitor (9) Dyslipidemia: Chronic -Continue Atorvastatin (10) Diabetes: As above -Lantus, ISS -Goal blood sugar 100 - 140 -Glycemic management consultation appreciated Ppx - Heparin. Code - Full Dispo - Admit to medical with telemetry Admission and Anticipated Discharge Date Admission Date: August 05, 2020 Subjective patient doing well, appetite is intact, no dyspnea he feels like he responded well to the Bumex 1mg PO this morning, making a little more urine Cr is 1.6 today, electrolytes stable discussed with orthopedics, he will likely be able to avoid repeat surgery, wound is healing well patient asking about timing of discharge, he has financial concerns, he cannot work if he is non-weight bearing Review of Systems Review of Systems: All systems reviewed & are unremarkable except as noted in Subjective Cardiovascular: + edema (left leg) Musculoskeletal: + joint pain (foot) Physical Exam Constitutional: WD/WN, vitals as above Eyes: PERRL, conjunctivae normal, anicteric sclerae ENMT: external ear and nose normal, oropharynx normal Neck: trachea midline, no thyromegaly Respiratory: normal respiratory effort, lungs clear to auscultation Cardiovascular: Rate/Rhythm: regular rate and regular rhythm Heart Sounds: normal S1 and normal S2; no murmur Vessels: no JVD Extremities: normal capillary refill and + edema (mild, left leg more than right); no calf tenderness Gastrointestinal (Abdomen): normal bowel sounds, soft, nontender, no hepatosplenomegaly Musculoskeletal: no cyanosis or clubbing, extremities motor strength 5/5 Skin: no rashes, warm and dry + wound (left foot, dressed) Neurologic: patellar DTR's 2+ bilat, sensation intact and PERRL, EOMI, accommodation nl, no face palsy, no dysarthria Psychiatric: A+Ox3, euthymic affect Lymphatic: no cervical or axillary lymphadenopathy Results & Data Results & Data ([facility]) Vital Signs (Past 12 Hours) Vital Signs Temp Pulse Pulse Resp BP Pulse Ox 08/12/20 16:00 57 L 08/12/20 12:08 36.6 C 60 20 158/70 H 96 08/12/20 08:00 56 L 08/12/20 07:11 37.0 C 56 L 18 139/75 96 Laboratory Results Laboratory Results - last 24 hr 08/12/20 08/12/20 08/12/20 05:25 05:55 05:55 WBC 9.25 RBC 3.51 L Hgb 9.0 L Hct 28.9 L MCV 82.3 MCH 25.6 MCHC 31.1 L RDW Std Deviation 44.4 RDW Coeff of Diane 15.1 H Plt Count 293 MPV 9.2 Immature Gran % (Auto) 0.4 Neut % (Auto) 52.8 Lymph % (Auto) 34.7 [place] % (Auto) 5.8 Eos % (Auto) 6.1 Baso % (Auto) 0.2 Neut # (Auto) 4.88 Lymph # (Auto) 3.21 [place] # (Auto) 0.54 Eos # (Auto) 0.56 H Baso # (Auto) 0.02 Immature Gran # (Auto) 0.04 H Sodium 137 Potassium 4.3 Chloride 103 Carbon Dioxide 27 Anion Gap 6.0 BUN 39 H Creatinine 1.61 H Est Cr Clr Drug Dosing 61.3 Est GFR ( Amer) 55.4 Est GFR (Non-Af Amer) 47.8 BUN/Creatinine Ratio 24.0 H Glucose 158 H POC Glucose 158 H Calcium 9.3 08/12/20 08/12/20 08/12/20 07:28 11:36 16:46 WBC RBC Hgb Hct MCV MCH MCHC RDW Std Deviation RDW Coeff of Diane Plt Count MPV Immature Gran % (Auto) Neut % (Auto) Lymph % (Auto) [place] % (Auto) Eos % (Auto) Baso % (Auto) Neut # (Auto) Lymph # (Auto) [place] # (Auto) Eos # (Auto) Baso # (Auto) Immature Gran # (Auto) Sodium Potassium Chloride Carbon Dioxide Anion Gap BUN Creatinine Est Cr Clr Drug Dosing Est GFR ( Amer) Est GFR (Non-Af Amer) BUN/Creatinine Ratio Glucose POC Glucose 185 H 224 H 104 H Calcium 08/12/20 20:31 WBC RBC Hgb Hct MCV MCH MCHC RDW Std Deviation RDW Coeff of Diane Plt Count MPV Immature Gran % (Auto) Neut % (Auto) Lymph % (Auto) [place] % (Auto) Eos % (Auto) Baso % (Auto) Neut # (Auto) Lymph # (Auto) [place] # (Auto) Eos # (Auto) Baso # (Auto) Immature Gran # (Auto) Sodium Potassium Chloride Carbon Dioxide Anion Gap BUN Creatinine Est Cr Clr Drug Dosing Est GFR ( Amer) Est GFR (Non-Af Amer) BUN/Creatinine Ratio Glucose POC Glucose 130 H Calcium Medications Administered Current Inpatient Medications Acetaminophen (Acetaminophen 325 Mg Tab) 650 mg PO Q4H PRN PRN Reason: pain/fever Stop: 09/04/20 03:03 Last Admin: 08/10/20 20:42 Dose: 650 mg Documented by: Aspirin (Aspirin 81 Mg Ectab) 81 mg PO BID LELIA Stop: 09/04/20 08:59 Last Admin: 08/12/20 21:26 Dose: 81 mg Documented by: Atorvastatin Calcium (Atorvastatin 40 Mg Tab) 80 mg PO QPM LELIA Stop: 09/04/20 20:59 Last Admin: 08/12/20 21:28 Dose: 80 mg Documented by: Bisacodyl (Bisacodyl 10 Mg Supp) 10 mg OH DAILY PRN PRN Reason: Constipation Stop: 09/07/20 12:01 Bumetanide (Bumetanide 1 Mg Tab) 1 mg PO QAM LELIA Stop: 09/11/20 08:59 Last Admin: 08/12/20 09:14 Dose: 1 mg Documented by: Collagenase (Collagenase Oint 30 Gm Tube) 1 appln EXT DAILY LELIA Stop: 09/06/20 08:59 Last Admin: 08/12/20 09:16 Dose: Not Given Documented by: Cyanocobalamin (Cyanocobalamin 500 Mcg Tablet (Vitamin B-12)) 1,000 mcg PO QPM LELIA Stop: 09/04/20 20:59 Last Admin: 08/12/20 21:27 Dose: 1,000 mcg Documented by: Dextrose (Dextrose 50% 50 Ml Syringe) 25 - 50 ml IV UD PRN; Protocol PRN Reason: Hypoglycemia Protocol Stop: 09/04/20 03:03 Docusate Sodium (Docusate Sodium 100 Mg Cap) 100 mg PO BID LELIA Stop: 09/07/20 20:59 Last Admin: 08/12/20 21:29 Dose: Not Given Documented by: Fluticasone Propionate (Fluticasone Propionate Na Spr 16 Gm Btl) 1 sprays NA BID [facility] Stop: 09/04/20 08:59 Last Admin: 08/12/20 21:25 Dose: 1 sprays Documented by: Gabapentin (Gabapentin 600 Mg Tab) 600 mg PO TID [facility] Stop: 09/04/20 08:59 Last Admin: 08/12/20 21:25 Dose: 600 mg Documented by: Glucagon (Glucagon For Inj 1 Mg Vial) 1 mg SQ UD PRN; Protocol PRN Reason: Hypoglycemia Protocol Stop: 09/04/20 03:03 Glucose (Glucose 10 Tabs/Tube) 4 - 8 tabs PO UD PRN; Protocol PRN Reason: Hypoglycemia Protocol Stop: 09/04/20 03:03 Glucose (Glucose 40% Gel 15 Gm Tube) 15 - 30 gm PO UD PRN; Protocol PRN Reason: Hypoglycemia Protocol Stop: 09/04/20 03:03 Heparin Sodium (Porcine) (Heparin Sod 5,000 Unit/0.5 Ml Vial) 5,000 units SQ Q8 LELIA Stop: 09/04/20 05:59 Last Admin: 08/12/20 21:26 Dose: 5,000 units Documented by: Ceftriaxone Sodium 2,000 mg/ (Dextrose) 70 mls @ 140 mls/hr IV DAILY@2100 LELIA; Protocol Stop: 09/22/20 20:59 Last Infusion: 08/12/20 22:14 Dose: Infused Documented by: Metronidazole (Flagyl) 500 mg in 100 mls @ 100 mls/hr IV Q8H [facility] Stop: 09/22/20 15:59 Last Infusion: 08/12/20 17:05 Dose: Infused Documented by: Insulin Aspart (Insulin Aspart 100 Units/Ml 3 Ml Pen) 0 units SC ACHS [facility] Stop: 09/04/20 03:44 Last Admin: 08/12/20 21:24 Dose: Not Given Documented by: Insulin Glargine (Insulin Glargine Solostar 100 Units/Ml 3 Ml Pen) 0 units SQ BID [facility]; Protocol Stop: 09/10/20 20:59 Last Admin: 08/12/20 21:25 Dose: 35 units Documented by: Magnesium Hydroxide (Magnesium Hydroxide Susp 30 Ml Udc) 30 ml PO Q6H PRN PRN Reason: Constipation Stop: 09/07/20 12:01 Magnesium Oxide (Magnesium Oxide 400 Mg Tab) 400 mg PO QPM LELIA Stop: 09/04/20 20:59 Last Admin: 08/12/20 21:26 Dose: 400 mg Documented by: Metoclopramide HCl (Metoclopramide Hcl Inj 5 Mg/Ml 2 Ml Vial) 10 mg IV Q6H PRN PRN Reason: Nausea And Vomiting Stop: 09/07/20 12:01 Metoprolol Succinate (Metoprolol Succ 50mg Ext Rel Tab) 150 mg PO QPM LELIA Stop: 09/04/20 20:59 Last Admin: 08/12/20 21:27 Dose: 150 mg Documented by: Miscellaneous (Carbohydrates For Hypoglycemia ) 15 - 30 gm PO UD PRN PRN Reason: Hypoglycemia Protocol Stop: 09/04/20 03:03 Miscellaneous Information (Pharmacy Glycemic Mgmt Consult) 1 ea N/A UD PRN; Protocol PRN Reason: Consult Stop: 09/04/20 03:20 Multivitamins (Multivitamin Tab) 1 tab PO QAM LELIA Stop: 09/08/20 08:59 Last Admin: 08/12/20 09:14 Dose: 1 tab Documented by: Naloxone HCl (Naloxone Hcl 0.4 Mg/1 Ml Vial/Carp) 0.1 mg IV Q5M PRN PRN Reason: Oversedation/Resp Depression Stop: 09/07/20 12:01 Ondansetron HCl (Ondansetron Inj 2 Mg/Ml 2 Ml Vial) 4 mg IV Q6H PRN PRN Reason: Nausea And Vomiting Stop: 09/07/20 12:01 Pantoprazole Sodium (Pantoprazole 40 Mg Tab) 40 mg PO QPM LELIA Stop: 09/04/20 20:59 Last Admin: 08/12/20 21:26 Dose: 40 mg Documented by: Polyethylene Glycol (Polyethylene (Miralax) 17 Gm Pack) 17 gm PO BID PRN PRN Reason: constipation Stop: 09/04/20 03:03 Sennosides (Senna 8.6 Mg Tab) 17.2 mg PO HS [facility] Stop: 09/07/20 20:59 Last Admin: 08/12/20 21:29 Dose: Not Given Documented by: Tramadol HCl (Tramadol Hcl 50 Mg Tablet) 50 mg PO Q6H PRN PRN Reason: Pain Stop: 09/04/20 03:03 Last Admin: 08/10/20 00:01 Dose: 50 mg Documented by: PG Care Time/CCT Total # of Minutes Spent Total Time Spent with Patient: Total time spent is greater than 50% in coordination of care (as documented) at patient's floor/unit and/or counseling patient: Coding Level of Care Code 14561 Subseq Hosp Care Lvl 2 Diagnoses Dyspnea R06.02 Dyspnea type: shortness of breath Foot ulcer L97.509 Hyperglycemia R73.9 CKD (chronic kidney disease) N18.9 Chronic kidney disease stage: unspecified stage Anemia D64.9 Anemia type: unspecified type Leg edema R60.0 WHIT (obstructive sleep apnea) G47.33 Hypertension I10 Hypertension type: essential hypertension Dyslipidemia E78.5 Diabetes E11.621; L97.509; Z79.4 Diabetes mellitus complication detail: with foot ulcer Diabetes mellitus complication status: with skin complications Diabetes mellitus roasterman insulin use: with roasterman use Diabetes mellitus type: type 2 (1) Diabetes Diabetes mellitus complication detail: with foot ulcer Diabetes mellitus complication status: with skin complications Diabetes mellitus skilled nursing insulin use: with roasterman use Diabetes mellitus type: type 2 Qualified Code(s): E11.621 - Type 2 diabetes mellitus with foot ulcer; L97.509 - Non- pressure chronic ulcer of other part of unspecified foot with unspecified severity; Z79.4 - halfway (current) use of insulin (2) Anemia Anemia type: unspecified type Qualified Code(s): D64.9 - Anemia, unspecified (3) Dyspnea Dyspnea type: shortness of breath Qualified Code(s): R06.02 - Shortness of breath (4) CKD (chronic kidney disease) Chronic kidney disease stage: unspecified stage Qualified Code(s): N18.9 - Chronic kidney disease, unspecified (5) Hypertension Hypertension type: essential hypertension Qualified Code(s): I10 - Essential (primary) hypertension
--- NOTE | 2020-08-12 16:36 | Orthopedic Progress Note ---
Date of Service August 12, 2020 Assessment & Plan (1) Foot ulcer: POD #4, 1. Left foot irrigation and debridement of a 4.0 cm x 3.75 cm x 1.4 cm diabetic neuropathic ulceration. 2. Irrigation and debridement, left foot including skin/fascia/subcutaneous tissue/tendon/periosteum and fifth metatarsal bone. 3. Application of Stimulan beads 5 mL containing gentamicin and vancomycin PT/ OT--NWB Left LE Currently on Vanco. Culture as noted below. Disposition per primary team. Dressing changed today. Discussed NWB status to encourage healing. Waiting on Dr. Bernardo's input. Admission and Anticipated Discharge Date Admission Date: August 05, 2020 Subjective Patient sleeping upon entering the room. Patient was using his CPAP and was slightly difficult to awaken however once woken up he was very conversant and oriented. No complaints today. Physical Exam Physical Exam: Dressings removed. Mild drainage on the dressing. TheraSkin applied over the wound. No overt erythema. No purulence noted. Wound redressed. Results & Data ([facility]) Vital Signs (Past 12 Hours) Vital Signs Temp Pulse Pulse Resp BP Pulse Ox 08/12/20 16:00 57 L 08/12/20 12:08 36.6 C 60 20 158/70 H 96 08/12/20 08:00 56 L 08/12/20 07:11 37.0 C 56 L 18 139/75 96
[2020-08-12] MEDS: cefTRIAXone SODIUM 2,000 MG in DEXTROSE 5% 50 ML IV SCH (21:23)
[2020-08-12] MEDS: MAGNESIUM OXIDE 400 MG TAB PO SCH (21:26)
[2020-08-12] MEDS: PANTOprazole 40 MG TAB PO SCH (21:26)
[2020-08-12] MEDS: CYANOCOBALAMIN 500 MCG TABLET (VITAMIN B-12) PO SCH (21:27)
[2020-08-12] MEDS: METOPROLOL SUCC 50MG EXT REL TAB PO SCH (21:27)
[2020-08-12] MEDS: ATORVASTATIN 40 MG TAB PO SCH (21:28)
[2020-08-12] MEDS: SENNA 8.6 MG TAB PO SCH (21:29)
[2020-08-13] MEDS: HEPARIN SOD 5,000 UNIT/0.5 ML VIAL SQ SCH ×3 (05:44→20:23)
[2020-08-13 06:53] LABS: Calcium 9.3 mg/dl (8.5-10.1); Creatinine Clr Calc Pharmacy 72.4 ml/min; Est GFR (African American) 67.9; Est GFR (Non-African American) 58.6; Potassium 4.1 mmol/L (3.5-5.1)
[2020-08-13] MEDS: BUMETANIDE 1 MG TAB PO SCH ×2 (08:37→20:23)
[2020-08-13] MEDS: metroNIDAZOLE 500 MG/100 ML BAG IV SCH ×3 (08:37→23:39)
[2020-08-13] MEDS: ACETAMINOPHEN 325 MG TAB PO PRN (08:37)
[2020-08-13] MEDS: GABAPENTIN 600 MG TAB PO SCH ×3 (08:38→20:22)
[2020-08-13] MEDS: FLUTICASONE PROPIONATE NA SPR 16 GM BTL SCH ×2 (08:38→20:24)
[2020-08-13] MEDS: MULTIVITAMIN TAB PO SCH (08:38)
[2020-08-13] MEDS: DOCUSATE SODIUM 100 MG CAP PO SCH ×2 (08:38→20:23)
[2020-08-13] MEDS: ASPIRIN 81 MG ECTAB PO SCH ×2 (08:38→20:22)
[2020-08-13] MEDS: INSULIN GLARGINE SOLOSTAR 100 UNITS/ML 3 ML PEN SQ SCH ×2 (08:38→20:27)
[2020-08-13] MEDS: INSULIN ASPART 100 UNITS/ML 3 ML PEN SC SCH ×4 (08:39→20:24)
[2020-08-13] MEDS: COLLAGENASE OINT 30 GM TUBE EXT SCH (08:54)
--- NOTE | 2020-08-13 13:56 | Pharmacy Report ---
Pharmacy Glycemic Short Note 2 - Date of Service August 13, 2020 - Glycemic Short BSG Results (Last 24 hours): 08/12/20 08/12/20 08/13/20 16:46 20:31 06:11 Glucose 163 H POC Glucose 104 H 130 H 08/13/20 08/13/20 07:53 11:52 Glucose POC Glucose 187 H 298 H OUTPATIENT ANTIDIABETIC REGIMEN: * Lantus 25 units QPM * U500 40 units with breakfast and lunch, 55 units with dinner * TDD: 160 units/day * A1c 7.8% 08/05/20 ASSESSMENT: 08/13: * Patient received total of 145 units of insulin, of which 80 were basal insulin * Fasting BSG 163 mg/dL - will titrate basal slightly * Continue with tighter coverage at breakfast, looser rest of day as BSGs tend to decline PLAN FOR INPATIENT GLYCEMIC CONTROL: * Hold outpatient oral diabetes medications * Basal insulin * Lantus 45-50 units BID based on BSG (see MAR for details) * Bolus insulin * NovoLog per scale ACHS or Q6hrs while NPO * Goal Range: Low 110 mg/dL - High 140 mg/dL * Correction Factor: 10 mg/dL/unit * Nutritional / Prandial insulin per carb ratio of 1 unit per 3.5 grams CHO consumed (2.5 with breakfast only)
--- NOTE | 2020-08-13 16:39 | Hospitalist Progress Note ---
Date of Service August 13, 2020 Assessment & Plan (1) Dyspnea: Patient with hypoxia, 87% on room air, improved with supplemental O2. Dyspnea ?secondary to volume overload - multifactorial, CHF, renal dysfunction, lymphedema. Patient reports his last known dry weight appx 6 months ago was 2 47# -Admit to medical floor -Lasix 60mg IV BID, decreased to 40mg BID on 08/08 PM dose given increased cr overnight, further decrease to 20mg IV BID on 08/09 PM dose Home dosing is 20mg PO BID (he had been working with PCP with a higher dose for swelling for a few days [facility]) patient admits that increasing doses of Lasix PO do not work for him, he never noticed a change in output his Cr is 1.3 today continue Bumex 1mg PO BID, responding well he appears slightly volume overloaded still today with left leg edema but it is improved check BMP in the morning (2) Foot ulcer: LE US noted as triphasic in most regions other than biphasic in L peroneal and monophasic in L dorsalis pedis MRI noted for "very early" osteo in 5th metatarsal OR on 08/08 for debridement and abx bead placement wound culture with MSSA, Proteus, Pasteurella and anaerobe continue [facility] and [facility] orthopedic surgery hoping to not need to take back to OR will need to determine if he needs IV antibiotics buttermaker continuous churn consult ID, they recommend IV antibiotics, will await official report to see what antibiotics and how long will ask CM to look into home IV antibiotics vs MTU, however, with his NWB status on foot and his is disabled with back issues he may need SNF (3) Hyperglycemia: Elevated blood sugar, poorly controlled DM -Continue insulin - Lantus BID 35 units if < 180, 45 units if > 180 Novolog SS -Glycemic management consultation appreciated A1c 7.8 monitor for hypoglycemia (4) CKD (chronic kidney disease): Renal function at baseline -Renal dosing -Avoid nephrotoxic agents Cr is 1.3 today, electrolytes stable continue Bumex 1mg PO BID as he is responding better (5) Anemia: Slow decline in H/H. Normochromic/normocytic. No obvious source of bleed. ?if anemia is contributing to overall symptoms of dyspnea. ?utility of IV iron infusions in anemic patient with CHF -Continue to monitor Iron low normal despite low normal MCV B12 is low normal at 332 with folate WNL Listed on home meds Start B12 injections 08/06, last 08/10 Hb is 9.0 on 08/12, has been stable for days (6) Leg edema: Chronic. Stable -Diuresis as above with Bumex BID -Encourage elevation (7) WHIT (obstructive sleep apnea): Chronic -CPAP 21neV4C qHS (8) Hypertension: Blood pressure stable -Continue home medications, Metoprolol -Continue to monitor (9) Dyslipidemia: Chronic -Continue Atorvastatin (10) Diabetes: As above -Jil, ISS -Goal blood sugar 100 - 140 -Glycemic management consultation appreciated Ppx - Heparin. Code - Full Dispo - will need IV antibiotics on discharge will need to determine if he can do this at home, he is NWB on left foot which could prove difficult he will need dressing changes Admission and Anticipated Discharge Date Admission Date: August 05, 2020 Subjective patient doing well, no pain in foot, eating well responding well to Bumex BID, Cr is stable at 1.3 appreciate ID consult, they are recommending IV antibiotics, will wait for the official consult will speak with CM to determine if he can do IV antibiotics at home or MTU or SNF Review of Systems Review of Systems: All systems reviewed & are unremarkable except as noted in Subjective Physical Exam Constitutional: WD/WN, vitals as above Eyes: PERRL, conjunctivae normal, anicteric sclerae ENMT: external ear and nose normal, oropharynx normal Neck: trachea midline, no thyromegaly Respiratory: normal respiratory effort, lungs clear to auscultation Cardiovascular: Rate/Rhythm: regular rate and regular rhythm Heart Sounds: normal S1 and normal S2; no murmur Vessels: no JVD Extremities: normal capillary refill and + edema (mild, left leg more than right); no calf tenderness Gastrointestinal (Abdomen): normal bowel sounds, soft, nontender, no hepatosplenomegaly Musculoskeletal: no cyanosis or clubbing, extremities motor strength 5/5 Skin: no rashes, warm and dry + wound (left foot, dressed) Neurologic: patellar DTR's 2+ bilat, sensation intact and PERRL, EOMI, accommodation nl, no face palsy, no dysarthria Psychiatric: A+Ox3, euthymic affect Lymphatic: no cervical or axillary lymphadenopathy Results & Data Results & Data ([facility]) Vital Signs (Past 12 Hours) Vital Signs Temp Pulse Pulse Resp BP Pulse Ox 08/13/20 15:22 36.9 C 60 20 179/76 H 98 08/13/20 12:20 36.9 C 62 20 119/56 L 98 08/13/20 08:09 36.8 C 58 L 18 147/70 H 97 08/13/20 07:08 57 L Laboratory Results Laboratory Results - last 24 hr 08/12/20 08/12/20 08/13/20 16:46 20:31 06:11 Sodium 137 Potassium 4.1 Chloride 105 Carbon Dioxide 27 Anion Gap 5.0 BUN 35 H Creatinine 1.36 Est Cr Clr Drug Dosing 72.4 Est GFR ( Amer) 67.9 Est GFR (Non-Af Amer) 58.6 BUN/Creatinine Ratio 26.0 H Glucose 163 H POC Glucose 104 H 130 H Calcium 9.3 08/13/20 08/13/20 07:53 11:52 Sodium Potassium Chloride Carbon Dioxide Anion Gap BUN Creatinine Est Cr Clr Drug Dosing Est GFR ( Amer) Est GFR (Non-Af Amer) BUN/Creatinine Ratio Glucose POC Glucose 187 H 298 H Calcium Medications Administered Current Inpatient Medications Acetaminophen (Acetaminophen 325 Mg Tab) 650 mg PO Q4H PRN PRN Reason: pain/fever Stop: 09/04/20 03:03 Last Admin: 08/13/20 08:37 Dose: 650 mg Documented by: Aspirin (Aspirin 81 Mg Ectab) 81 mg PO BID [facility] Stop: 09/04/20 08:59 Last Admin: 08/13/20 08:38 Dose: 81 mg Documented by: Atorvastatin Calcium (Atorvastatin 40 Mg Tab) 80 mg PO QPM [facility] Stop: 09/04/20 20:59 Last Admin: 08/12/20 21:28 Dose: 80 mg Documented by: Bisacodyl (Bisacodyl 10 Mg Supp) 10 mg OH DAILY PRN PRN Reason: Constipation Stop: 09/07/20 12:01 Bumetanide (Bumetanide 1 Mg Tab) 1 mg PO BID [facility] Stop: 09/12/20 08:59 Last Admin: 08/13/20 08:37 Dose: 1 mg Documented by: Collagenase (Collagenase Oint 30 Gm Tube) 1 appln EXT DAILY [facility] Stop: 09/06/20 08:59 Last Admin: 08/13/20 08:54 Dose: Not Given Documented by: Cyanocobalamin (Cyanocobalamin 500 Mcg Tablet (Vitamin B-12)) 1,000 mcg PO QPM LELIA Stop: 09/04/20 20:59 Last Admin: 08/12/20 21:27 Dose: 1,000 mcg Documented by: Dextrose (Dextrose 50% 50 Ml Syringe) 25 - 50 ml IV UD PRN; Protocol PRN Reason: Hypoglycemia Protocol Stop: 09/04/20 03:03 Docusate Sodium (Docusate Sodium 100 Mg Cap) 100 mg PO BID LELIA Stop: 09/07/20 20:59 Last Admin: 08/13/20 08:38 Dose: 100 mg Documented by: Fluticasone Propionate (Fluticasone Propionate Na Spr 16 Gm Btl) 1 sprays NA BID LELIA Stop: 09/04/20 08:59 Last Admin: 08/13/20 08:38 Dose: 1 sprays Documented by: Gabapentin (Gabapentin 600 Mg Tab) 600 mg PO TID LELIA Stop: 09/04/20 08:59 Last Admin: 08/13/20 15:00 Dose: 600 mg Documented by: Glucagon (Glucagon For Inj 1 Mg Vial) 1 mg SQ UD PRN; Protocol PRN Reason: Hypoglycemia Protocol Stop: 09/04/20 03:03 Glucose (Glucose 10 Tabs/Tube) 4 - 8 tabs PO UD PRN; Protocol PRN Reason: Hypoglycemia Protocol Stop: 09/04/20 03:03 Glucose (Glucose 40% Gel 15 Gm Tube) 15 - 30 gm PO UD PRN; Protocol PRN Reason: Hypoglycemia Protocol Stop: 09/04/20 03:03 Heparin Sodium (Porcine) (Heparin Sod 5,000 Unit/0.5 Ml Vial) 5,000 units SQ Q8 LELIA Stop: 09/04/20 05:59 Last Admin: 08/13/20 14:11 Dose: 5,000 units Documented by: Ceftriaxone Sodium 2,000 mg/ (Dextrose) 70 mls @ 140 mls/hr IV DAILY@2100 LELIA; Protocol Stop: 09/22/20 20:59 Last Infusion: 08/12/20 22:14 Dose: Infused Documented by: Metronidazole (Flagyl) 500 mg in 100 mls @ 100 mls/hr IV Q8H [facility] Stop: 09/22/20 15:59 Last Infusion: 08/13/20 10:04 Dose: Infused Documented by: Insulin Aspart (Insulin Aspart 100 Units/Ml 3 Ml Pen) 0 units SC ACHS [facility] Stop: 09/04/20 03:44 Last Admin: 08/13/20 12:18 Dose: 40 units Documented by: Insulin Glargine (Insulin Glargine Solostar 100 Units/Ml 3 Ml Pen) 0 units SQ BID [facility]; Protocol Stop: 09/10/20 20:59 Last Admin: 08/13/20 08:38 Dose: 45 units Documented by: Magnesium Hydroxide (Magnesium Hydroxide Susp 30 Ml Udc) 30 ml PO Q6H PRN PRN Reason: Constipation Stop: 09/07/20 12:01 Magnesium Oxide (Magnesium Oxide 400 Mg Tab) 400 mg PO QPM [facility] Stop: 09/04/20 20:59 Last Admin: 08/12/20 21:26 Dose: 400 mg Documented by: Metoclopramide HCl (Metoclopramide Hcl Inj 5 Mg/Ml 2 Ml Vial) 10 mg IV Q6H PRN PRN Reason: Nausea And Vomiting Stop: 09/07/20 12:01 Metoprolol Succinate (Metoprolol Succ 50mg Ext Rel Tab) 150 mg PO QPM [facility] Stop: 09/04/20 20:59 Last Admin: 08/12/20 21:27 Dose: 150 mg Documented by: Miscellaneous (Carbohydrates For Hypoglycemia ) 15 - 30 gm PO UD PRN PRN Reason: Hypoglycemia Protocol Stop: 09/04/20 03:03 Miscellaneous Information (Pharmacy Glycemic Mgmt Consult) 1 ea N/A UD PRN; Protocol PRN Reason: Consult Stop: 09/04/20 03:20 Multivitamins (Multivitamin Tab) 1 tab PO QAM [facility] Stop: 09/08/20 08:59 Last Admin: 08/13/20 08:38 Dose: 1 tab Documented by: Naloxone HCl (Naloxone Hcl 0.4 Mg/1 Ml Vial/Carp) 0.1 mg IV Q5M PRN PRN Reason: Oversedation/Resp Depression Stop: 09/07/20 12:01 Ondansetron HCl (Ondansetron Inj 2 Mg/Ml 2 Ml Vial) 4 mg IV Q6H PRN PRN Reason: Nausea And Vomiting Stop: 09/07/20 12:01 Pantoprazole Sodium (Pantoprazole 40 Mg Tab) 40 mg PO QPM [facility] Stop: 09/04/20 20:59 Last Admin: 08/12/20 21:26 Dose: 40 mg Documented by: Polyethylene Glycol (Polyethylene (Miralax) 17 Gm Pack) 17 gm PO BID PRN PRN Reason: constipation Stop: 09/04/20 03:03 Sennosides (Senna 8.6 Mg Tab) 17.2 mg PO HS LELIA Stop: 09/07/20 20:59 Last Admin: 08/12/20 21:29 Dose: Not Given Documented by: Tramadol HCl (Tramadol Hcl 50 Mg Tablet) 50 mg PO Q6H PRN PRN Reason: Pain Stop: 09/04/20 03:03 Last Admin: 08/10/20 00:01 Dose: 50 mg Documented by: PG Care Time/CCT Total # of Minutes Spent Total Time Spent with Patient: Total time spent is greater than 50% in coordination of care (as documented) at patient's floor/unit and/or counseling patient: Coding Level of Care Code 29439 Subseq Hosp Care Lvl 3 Diagnoses Dyspnea R06.02 Dyspnea type: shortness of breath Foot ulcer L97.509 Hyperglycemia R73.9 CKD (chronic kidney disease) N18.9 Chronic kidney disease stage: unspecified stage Anemia D64.9 Anemia type: unspecified type Leg edema R60.0 WHIT (obstructive sleep apnea) G47.33 Hypertension I10 Hypertension type: essential hypertension Dyslipidemia E78.5 Diabetes E11.621; L97.509; Z79.4 Diabetes mellitus type: type 2 Diabetes mellitus fci insulin use: with buttermaker continuous churn use Diabetes mellitus complication status: with skin complications Diabetes mellitus complication detail: with foot ulcer (1) Dyspnea Dyspnea type: shortness of breath Qualified Code(s): R06.02 - Shortness of breath (2) CKD (chronic kidney disease) Chronic kidney disease stage: unspecified stage Qualified Code(s): N18.9 - Chronic kidney disease, unspecified (3) Anemia Anemia type: unspecified type Qualified Code(s): D64.9 - Anemia, unspecified (4) Hypertension Hypertension type: essential hypertension Qualified Code(s): I10 - Essential (primary) hypertension (5) Diabetes Diabetes mellitus type: type 2 Diabetes mellitus fci insulin use: with buttermaker continuous churn use Diabetes mellitus complication status: with skin complications Diabetes mellitus complication detail: with foot ulcer Qualified Code(s): E11.621 - Type 2 diabetes mellitus with foot ulcer; L97.509 - Non-pressure chronic ulcer of other part of unspecified foot with unspecified severity; Z79.4 - terminal gauger (current) use of insulin
--- NOTE | 2020-08-13 19:16 | Orthopedic Progress Note ---
Date of Service August 13, 2020 Assessment & Plan (1) Foot ulcer: POD #4, 1. Left foot irrigation and debridement of a 4.0 cm x 3.75 cm x 1.4 cm diabetic neuropathic ulceration. 2. Irrigation and debridement, left foot including skin/fascia/subcutaneous tissue/tendon/periosteum and fifth metatarsal bone. 3. Application of Stimulan beads 5 mL containing gentamicin and vancomycin PT/ OT--NWB Left LE Currently on Vanco. Culture as noted below. Disposition per primary team. Dressing changed today. Discussed NWB status to encourage healing. Currently no plans for further debridement at this time. Will discuss today's findings with Dr. Bernardo. Admission and Anticipated Discharge Date Admission Date: August 05, 2020 Subjective Patient awake and alert watching TV. No complaints. Pain controlled. Physical Exam Physical Exam: Resting removed. Similar amount of drainage noted. Slight grayish color to the drainage on one section of the dressing but no odor. Minimal to no erythema. [place] intact. Wound redressed. Results & Data ([facility]) Vital Signs (Past 12 Hours) Vital Signs Temp Pulse Resp BP Pulse Ox 08/13/20 15:22 36.9 C 60 20 179/76 H 98 08/13/20 12:20 36.9 C 62 20 119/56 L 98 08/13/20 08:09 36.8 C 58 L 18 147/70 H 97
[2020-08-13] MEDS: ATORVASTATIN 40 MG TAB PO SCH (20:22)
[2020-08-13] MEDS: SENNA 8.6 MG TAB PO SCH (20:22)
[2020-08-13] MEDS: MAGNESIUM OXIDE 400 MG TAB PO SCH (20:22)
[2020-08-13] MEDS: METOPROLOL SUCC 50MG EXT REL TAB PO SCH (20:23)
[2020-08-13] MEDS: CYANOCOBALAMIN 500 MCG TABLET (VITAMIN B-12) PO SCH (20:23)
[2020-08-13] MEDS: PANTOprazole 40 MG TAB PO SCH (20:23)
[2020-08-13] MEDS: cefTRIAXone SODIUM 2,000 MG in DEXTROSE 5% 50 ML IV SCH (20:53)
[2020-08-14] MEDS: HEPARIN SOD 5,000 UNIT/0.5 ML VIAL SQ SCH ×3 (05:37→21:14)
[2020-08-14] MEDS: FLUTICASONE PROPIONATE NA SPR 16 GM BTL SCH ×2 (08:32→21:15)
[2020-08-14] MEDS: MULTIVITAMIN TAB PO SCH (08:33)
[2020-08-14] MEDS: GABAPENTIN 600 MG TAB PO SCH ×3 (08:33→21:13)
[2020-08-14] MEDS: ASPIRIN 81 MG ECTAB PO SCH ×2 (08:33→21:13)
[2020-08-14] MEDS: BUMETANIDE 1 MG TAB PO SCH ×2 (08:33→21:12)
[2020-08-14] MEDS: metroNIDAZOLE 500 MG/100 ML BAG IV SCH ×3 (08:33→23:51)
[2020-08-14] MEDS: DOCUSATE SODIUM 100 MG CAP PO SCH ×2 (08:33→21:14)
[2020-08-14] MEDS: COLLAGENASE OINT 30 GM TUBE EXT SCH (08:34)
[2020-08-14] MEDS: INSULIN GLARGINE SOLOSTAR 100 UNITS/ML 3 ML PEN SQ SCH ×2 (08:34→21:15)
[2020-08-14] MEDS: INSULIN ASPART 100 UNITS/ML 3 ML PEN SC SCH ×4 (08:35→21:10)
[2020-08-14] MEDS ORDERED: cefTRIAXone SODIUM 2,000 MG in DEXTROSE 5% 50 ML IV STA (15:29)
--- NOTE | 2020-08-14 15:30 | Discharge Summary ---
Date of Service August 15, 2020 Admission HPI Per Admitting Provider Reid Swartz is a 55yo male presenting with progressive SOB. He reports a 20# weight gain over the last few months due to fluid. He follows with Nephrology, Cardiology and Lymphedema clinic and has been on multiple diuretics in the past to include Lasix, Bumex, Torsemide and now Lasix and Metolazone with limited success in mobilizing the fluid. Also with some stabbing chest discomfort today, non-pleuritic, non-exertional. Reproducible with palpation. Reports poor urine output at baseline which has been stable. No fevers/chills/nausea/vomiting/diarrhea or constipation. No additional complaints Principal Diagnosis Diabetic foot ulcer, early osteomyelitis Discharge Exam Constitutional WD/WN, vitals as above Eyes PERRL, conjunctivae normal, anicteric sclerae ENMT external ear and nose normal, oropharynx normal Neck trachea midline, no thyromegaly Respiratory normal respiratory effort, lungs clear to auscultation Cardiovascular Rate/Rhythm: regular rate and regular rhythm Heart Sounds: normal S1 and normal S2; no murmur Vessels: no JVD Extremities: normal capillary refill and + edema (mild, left leg more than right); no calf tenderness Gastrointestinal (Abdomen) normal bowel sounds, soft, nontender, no hepatosplenomegaly Musculoskeletal no cyanosis or clubbing, extremities motor strength 5/5 Skin no rashes, warm and dry + wound (left foot, dressed) Neurologic patellar DTR's 2+ bilat, sensation intact and PERRL, EOMI, accommodation nl, no face palsy, no dysarthria Psychiatric A+Ox3, euthymic affect Lymphatic no cervical or axillary lymphadenopathy Discharge Data Allergies Allergy/AdvReac Type Severity Reaction Status Date / Time amitriptyline AdvReac Mild muscle Verified 08/05/20 00:32 twitching hydralazine AdvReac Mild Rash Verified 08/05/20 00:32 Consultations 08/05/20 00:38 ED Decision to Admit Stat 08/06/20 11:34 Consult General Surgery Routine 08/06/20 17:53 Consult Orthopedic Surgery Routine 08/08/20 12:02 Consult Case Management - Discharge Planning Routine 08/12/20 22:37 Consult Infectious Diseases Routine Procedures Performed Operation Date: 08/08/20 07:30 Actual Procedures p Incision and Debridiment Left Foot Ulcer, Skin, subq fat, Fascia Tendon and Bone, Ulcer Measuring 3cm x 3.75cm with a depth of 1cm(Left) - Iván Bernardo DO Ordered Studies 08/06/20 13:05 MR foot LT wo/w con Routine 08/06/20 14:00 US arterial duplex LE BI Routine Hospital Course (1) Dyspnea: Patient with hypoxia, 87% on room air, improved with supplemental O2. Dyspnea ?secondary to volume overload - multifactorial, CHF, renal dysfunction, lymphedema. 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) patient admits that increasing doses of Lasix PO do not work for him, he never noticed a change in output his Cr is 1.5 on days of discharge, at baseline continue Bumex 1mg PO BID, responding well appears like he is at his baseline volume (2) Foot ulcer: LE US noted as triphasic in most regions other than biphasic in L peroneal and monophasic in L dorsalis pedis MRI noted for "very early" osteo in 5th metatarsal OR on 08/08 for debridement and abx bead placement wound culture with MSSA, Proteus, Pasteurella and anaerobe continue Rocephin and Flagyl orthopedic surgery hoping to not need to take back to OR will need to determine if he needs IV antibiotics longterm consult ID, they recommend Rocephin 2gm IV daily x 4 weeks and Flagyl 500mg PO TID x 4 weeks arrangements made for home Rocephin 2gm IV daily to start on 08/16 with home health will follow up with wound clinic, Dr. Bernardo and PCP no fever, normal WBC, vitals stable and wound appears to be healing at time of discharge (3) Hyperglycemia: Elevated blood sugar, poorly controlled DM -Continue insulin - Lantus BID 35 units if < 180, 45 units if > 180 Novolog SS -Glycemic management consultation appreciated A1c 7.8 monitor for hypoglycemia, no episodes resume home regimen on discharge (4) CKD (chronic kidney disease): Renal function at baseline -Renal dosing -Avoid nephrotoxic agents Cr is 1.5 today, electrolytes stable continue Bumex 1mg PO BID as he is responding better (5) Anemia: Slow decline in H/H. Normochromic/normocytic. No obvious source of bleed. ?if anemia is contributing to overall symptoms of dyspnea. ?utility of IV iron infusions in anemic patient with CHF -Continue to monitor Iron low normal despite low normal MCV B12 is low normal at 332 with folate WNL Listed on home meds Start B12 injections 08/06, last 08/10 Hb is 9.0 on 08/12, has been stable for days (6) Leg edema: Chronic. Stable -Diuresis as above with Bumex BID -Encourage elevation (7) WHIT (obstructive sleep apnea): Chronic -CPAP [id number] qHS (8) Hypertension: Blood pressure stable -Continue home medications, Metoprolol -Continue to monitor (9) Dyslipidemia: Chronic -Continue Atorvastatin (10) Diabetes: As above -Lantus, ISS -Goal blood sugar 100 - 140 -Glycemic management consultation appreciated Ppx - Heparin. Code - Full Total Time Total Time Spent Total Time Spent (In Minutes): 35 minutes Total Time Includes: Examination of the Patient, Discharge Planning, Medication Reconciliation, Communication With Other Providers (discussed with ortho and infectious disease) and Other (discussed with case management, set up home health) Discharge Plan Discharge Items Patient Disposition: Home - Home Health Services Reason For Visit: SOB Discharge Diagnosis: Acute kidney injury Acute on chronic heart failure with preserved EF Diabetic foot ulcer with early osteomyelitis Condition on Discharge: Good Activity: Per Instructions section Bathing: Keep incision dry Exercise/Sports: Gradually increase as tolerated Weightbearing: Left non-weightbearing Non-emergency contact: Primary Care Provider and Surgeon Call non-emergency contact if: you have any medication questions, your symptoms worsen, your pain is not controlled and you have a fever Follow-up/Referrals: Iván Bernardo DO [Surgeon] - (two weeks) Marbella Gomez PA-C [Primary Care Provider] - (one week) Diet: Carb Consistent or DM2, Heart Healthy and Low Sodium (2gm) Fluids: 1800ml (7 cups) Addtl Attending Provider Instructions: Medications: - ROCEPHIN: 2gm IV daily for 4 weeks to treat foot infection - FLAGYL: 500mg three times a day for 4 weeks to treat foot infection - BUMEX: 1mg twice a day, new diuretic that replaces Lasix and Metalozone - SANTYL: apply once a day to wound, digital operations analyst at home can provide instruction on this Diabetic food ulcer with early osteomyelitis orthopedics performed debridement cultures with several bacteria growing but Rocephin and Flagyl will cover them all Infectious disease from [place] recommends 4 weeks of Rocephin and Flagyl follow up with wound care and follow up with Dr. Bernardo in the office you can follow up with infectious disease at [facility] office in 3-4 weeks, call [facility] to make appt Acute on chronic heart failure, acute kidney injury your Cr has returned to baseline, removes fluids and back to baseline continue to use bumex 1mg twice a day, new diuretic that replaces Lasix since you did not responde well to that continue to follow a fluid restriction of 1800mL a day, low sodium diet of less than 2gm a day and weigh yourself daily contact Radha Artis with heart failure clinic if you have any issues with volume Addtl Owner Operator Provider Instructions: ACTIVITY RECOMMENDATIONS: Limitations: Non weightbearing on the left foot.. SPECIAL CARE INSTRUCTIONS: * Some drainage onto the dressing is normal and is no cause for alarm. * Some swelling is natural especially after walking. * When resting, keep your foot elevated above the level of your heart. * Call [facility] if you notice: -Increased drainage -Fever over 101 degrees F -Severe constant pain BANDAGE: * Change your dressing daily. * Keep bandage/cast dry at all times.. FOLLOW UP VISIT WITH DR. BERNARDO If appointment is not already scheduled: Please call [facility] after you get home today to schedule a follow-up appointment for [address] Bernardo at . Pending Studies at Discharge: No Stand-Alone Forms: My [employer], Smoking Cessation Medications and DC Order Prescriptions: New bumetanide 1 mg Tablet 1 mg PO BID 30 Days Qty: 60 RF: 4 Santyl 250 unit/gram Ointment 1 applic EXT DAILY 28 Days Qty: 30 RF: 3 metronidazole [Flagyl] 500 mg tablet 500 mg PO TID 28 Days Qty: 84 RF: 0 ceftriaxone 2 gram recon soln 2 g IV DAILY 28 Days Qty: 1 RF: 0 Continued aspirin 81 mg tablet,delayed release (DR/EC) 81 mg PO BID RF: 0 polyethylene glycol 3350 17 gram/dose powder 17 gm PO BID PRN (Reason: constipation) Qty: 510 RF: 5 magnesium oxide 400 mg Capsule 400 mg PO QPM RF: 0 atorvastatin 80 mg Tablet 80 mg PO QPM RF: 0 metoprolol succinate 50 mg Tablet Extended Release 24 Hr 150 mg PO QPM RF: 0 Lantus U-100 Insulin 100 unit/mL solution 25 units subcut QPM RF: 0 omeprazole 20 mg Capsule,Delayed Release(Dr/Ec) 20 mg PO QPM Qty: 0 RF: 0 gabapentin 600 mg tablet 600 mg PO TID RF: 0 Probiotic 3 billion cell Capsule 3,000 mmu cells PO QAM RF: 0 omega 5-flx-ziw-fish oil [Fish Oil] 1,000 mg (120 mg-180 mg) Capsule 1 cap PO QPM RF: 0 cholecalciferol (vitamin D3) [Vitamin D3] 25 mcg (1,000 unit) tablet,chewable 2,000 units PO QPM RF: 0 cyanocobalamin (vitamin B-12) [Vitamin B-12] 1,000 mcg tablet 1,000 mcg PO QPM RF: 0 Humulin R U-500 (Conc) Kwikpen 500 unit/mL (3 mL) Insulin Pen 40 unit SUBCUT AMPM RF: 0 Humulin R U-500 (Conc) Kwikpen 500 unit/mL (3 mL) Insulin Pen 55 unit SUBCUT QPM RF: 0 fluticasone propionate [Flonase Allergy Relief] 50 mcg/actuation [place],Suspension 1 spray INTRANASAL BID RF: 0 tramadol 50 mg Tablet 50 mg PO Q6H PRN (Reason: Pain) RF: 0 Discontinued furosemide 40 mg Tablet 60 mg PO HS RF: 0 metolazone 2.5 mg Tablet 2.5 mg PO 2XWK RF: 0 Discharge Orders: Discharge Order (Routine); Ordered 08/15/20 Ordered By: Luis Eduardo Maria/Other Patient Handouts: Managing Type 2 Diabetes, Managing Diabetes: The A1C Test Admission Data Admit Date/Time: 08/05/20 01:53 Attending Provider: Luis Eduardo Watson Admit Provider: Trinidad Ram Primary Care Provider: Marbella Gomez Other Providers: Trinidad Ram ; Len Heck ; Iván Bernardo ; Oscar Slaughter ; Rossy Bernard ; Shady Ram I. ; Clark Shetty II ; Tsering Tomlinson ; Palomo Ortiz ; [facility],Home Healthcare Other Interventions: Discharge Summary Assessment (RN) Last Done: 08/15/20 12:14 Coding Level of Care Code D/C Day Management >30 mins Diagnoses Dyspnea R06.02 Dyspnea type: shortness of breath Foot ulcer L97.509 Hyperglycemia R73.9 CKD (chronic kidney disease) N18.9 Chronic kidney disease stage: unspecified stage Anemia D64.9 Anemia type: unspecified type Leg edema R60.0 WHIT (obstructive sleep apnea) G47.33 Hypertension I10 Hypertension type: essential hypertension Dyslipidemia E78.5 Diabetes E11.621; L97.509; Z79.4 Diabetes mellitus complication detail: with foot ulcer Diabetes mellitus complication status: with skin complications Diabetes mellitus extermination inspector insulin use: with longterm use Diabetes mellitus type: type 2
--- NOTE | 2020-08-14 18:04 | Hospitalist Progress Note ---
Date of Service August 14, 2020 Assessment & Plan (1) Dyspnea: Patient with hypoxia, 87% on room air, improved with supplemental O2. Dyspnea ?secondary to volume overload - multifactorial, CHF, renal dysfunction, lymphedema. 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) patient admits that increasing doses of Lasix PO do not work for him, he never noticed a change in output when at home his Cr is 1.3 on 08/13 continue Bumex 1mg PO BID, responding well he appears slightly volume overloaded still today with left leg edema but it is improved check BMP in the morning (2) Foot ulcer: LE US noted as triphasic in most regions other than biphasic in L peroneal and monophasic in L dorsalis pedis MRI noted for "very early" osteo in 5th metatarsal OR on 08/08 for debridement and abx bead placement wound culture with MSSA, Proteus, Pasteurella and anaerobe continue Rocephin and Flagyl orthopedic surgery hoping to not need to take back to OR will need to determine if he needs IV antibiotics correction consult ID -- recommend Rocephin 2gm IV daily x 4 weeks, Flagyl 500mg PO TID x 4 weeks plan to discharge tomorrow, home health can start Rocephin IV on Monday (3) Hyperglycemia: Elevated blood sugar, poorly controlled DM -Continue insulin - Lantus BID 35 units if < 180, 45 units if > 180 Novolog SS -Glycemic management consultation appreciated A1c 7.8 monitor for hypoglycemia, no episodes today (4) CKD (chronic kidney disease): Renal function at baseline -Renal dosing -Avoid nephrotoxic agents Cr is 1.3 on 08/13, electrolytes stable continue Bumex 1mg PO BID as he is responding better (5) Anemia: Slow decline in H/H. Normochromic/normocytic. No obvious source of bleed. ?if anemia is contributing to overall symptoms of dyspnea. ?utility of IV iron infusions in anemic patient with CHF -Continue to monitor Iron low normal despite low normal MCV B12 is low normal at 332 with folate WNL Listed on home meds Start B12 injections 08/06, last 08/10 Hb is 9.0 on 08/12, has been stable for days (6) Leg edema: Chronic. Stable -Diuresis as above with Bumex BID -Encourage elevation (7) WHIT (obstructive sleep apnea): Chronic -CPAP [id number] qHS (8) Hypertension: Blood pressure stable -Continue home medications, Metoprolol -Continue to monitor (9) Dyslipidemia: Chronic -Continue Atorvastatin (10) Diabetes: As above -Jil, ISS -Goal blood sugar 100 - 140 -Glycemic management consultation appreciated Ppx - Heparin. Code - Full Dispo - will need IV antibiotics on discharge plan to d/c to home tomorrow Admission and Anticipated Discharge Date Admission Date: August 05, 2020 Subjective patient doing well, no complaints eating well, making urine, moving bowels, breathing comfortably reviewed ID recommendations, will need 4 weeks of Rocephin 2gm IV daily and Flagyl 500mg PO TID for 4 weeks he can follow up with ID in clinic started making arrangements for discharge with CM, but home health cannot get started until Monday will keep patient here, plan for discharge tomorrow check labs tomorrow Review of Systems Review of Systems: All systems reviewed & are unremarkable except as noted in Subjective Physical Exam Constitutional: WD/WN, vitals as above Eyes: PERRL, conjunctivae normal, anicteric sclerae ENMT: external ear and nose normal, oropharynx normal Neck: trachea midline, no thyromegaly Respiratory: normal respiratory effort, lungs clear to auscultation Cardiovascular: Rate/Rhythm: regular rate and regular rhythm Heart Sounds: normal S1 and normal S2; no murmur Vessels: no JVD Extremities: normal capillary refill and + edema (mild, left leg more than right); no calf tend erness Gastrointestinal (Abdomen): normal bowel sounds, soft, nontender, no hepatosplenomegaly Musculoskeletal: no cyanosis or clubbing, extremities motor strength 5/5 Skin: no rashes, warm and dry + wound (left foot, dressed) Neurologic: patellar DTR's 2+ bilat, sensation intact and PERRL, EOMI, accommodation nl, no face palsy, no dysarthria Psychiatric: A+Ox3, euthymic affect Lymphatic: no cervical or axillary lymphadenopathy Results & Data Results & Data ([facility]) Vital Signs (Past 12 Hours) Vital Signs Temp Pulse Resp BP BP Pulse Ox 08/14/20 16:34 36.5 C 65 20 169/81 H 98 08/14/20 13:30 159/72 H 08/14/20 11:18 36.6 C 58 L 16 182/90 H 100 08/14/20 07:59 37.2 C 59 L 16 145/67 H 93 Laboratory Results Laboratory Results - last 24 hr 08/13/20 08/14/20 08/14/20 20:14 08:07 11:33 POC Glucose 192 H 201 H 138 H 08/14/20 16:48 POC Glucose 159 H Medications Administered Current Inpatient Medications Acetaminophen (Acetaminophen 325 Mg Tab) 650 mg PO Q4H PRN PRN Reason: pain/fever Stop: 09/04/20 03:03 Last Admin: 08/13/20 08:37 Dose: 650 mg Documented by: Aspirin (Aspirin 81 Mg Ectab) 81 mg PO BID LELIA Stop: 09/04/20 08:59 Last Admin: 08/14/20 08:33 Dose: 81 mg Documented by: Atorvastatin Calcium (Atorvastatin 40 Mg Tab) 80 mg PO QPM LELIA Stop: 09/04/20 20:59 Last Admin: 08/13/20 20:22 Dose: 80 mg Documented by: Bisacodyl (Bisacodyl 10 Mg Supp) 10 mg MA DAILY PRN PRN Reason: Constipation Stop: 09/07/20 12:01 Bumetanide (Bumetanide 1 Mg Tab) 1 mg PO BID LELIA Stop: 09/12/20 08:59 Last Admin: 08/14/20 08:33 Dose: 1 mg Documented by: Collagenase (Collagenase Oint 30 Gm Tube) 1 appln EXT DAILY LLEIA Stop: 09/06/20 08:59 Last Admin: 08/14/20 08:34 Dose: Not Given Documented by: Cyanocobalamin (Cyanocobalamin 500 Mcg Tablet (Vitamin B-12)) 1,000 mcg PO QPM LELIA Stop: 09/04/20 20:59 Last Admin: 08/13/20 20:23 Dose: 1,000 mcg Documented by: Dextrose (Dextrose 50% 50 Ml Syringe) 25 - 50 ml IV UD PRN; Protocol PRN Reason: Hypoglycemia Protocol Stop: 09/04/20 03:03 Docusate Sodium (Docusate Sodium 100 Mg Cap) 100 mg PO BID LELIA Stop: 09/07/20 20:59 Last Admin: 08/14/20 08:33 Dose: 100 mg Documented by: Fluticasone Propionate (Fluticasone Propionate Na Spr 16 Gm Btl) 1 sprays NA BID LELIA Stop: 09/04/20 08:59 Last Admin: 08/14/20 08:32 Dose: 1 sprays Documented by: Gabapentin (Gabapentin 600 Mg Tab) 600 mg PO TID LELIA Stop: 09/04/20 08:59 Last Admin: 08/14/20 14:18 Dose: 600 mg Documented by: Glucagon (Glucagon For Inj 1 Mg Vial) 1 mg SQ UD PRN; Protocol PRN Reason: Hypoglycemia Protocol Stop: 09/04/20 03:03 Glucose (Glucose 10 Tabs/Tube) 4 - 8 tabs PO UD PRN; Protocol PRN Reason: Hypoglycemia Protocol Stop: 09/04/20 03:03 Glucose (Glucose 40% Gel 15 Gm Tube) 15 - 30 gm PO UD PRN; Protocol PRN Reason: Hypoglycemia Protocol Stop: 09/04/20 03:03 Heparin Sodium (Porcine) (Heparin Sod 5,000 Unit/0.5 Ml Vial) 5,000 units SQ Q8 LELIA Stop: 09/04/20 05:59 Last Admin: 08/14/20 14:18 Dose: 5,000 units Documented by: Metronidazole (Flagyl) 500 mg in 100 mls @ 100 mls/hr IV Q8H [facility] Stop: 09/22/20 15:59 Last Admin: 08/14/20 15:51 Dose: 100 mls/hr Documented by: Insulin Aspart (Insulin Aspart 100 Units/Ml 3 Ml Pen) 0 units SC ACHS [facility] Stop: 09/04/20 03:44 Last Admin: 08/14/20 17:30 Dose: 24 units Documented by: Insulin Glargine (Insulin Glargine Solostar 100 Units/Ml 3 Ml Pen) 0 units SQ BID [facility]; Protocol Stop: 09/10/20 20:59 Last Admin: 08/14/20 08:34 Dose: 50 units Documented by: Magnesium Hydroxide (Magnesium Hydroxide Susp 30 Ml Udc) 30 ml PO Q6H PRN PRN Reason: Constipation Stop: 09/07/20 12:01 Magnesium Oxide (Magnesium Oxide 400 Mg Tab) 400 mg PO QPM LELIA Stop: 09/04/20 20:59 Last Admin: 08/13/20 20:22 Dose: 400 mg Documented by: Metoclopramide HCl (Metoclopramide Hcl Inj 5 Mg/Ml 2 Ml Vial) 10 mg IV Q6H PRN PRN Reason: Nausea And Vomiting Stop: 09/07/20 12:01 Metoprolol Succinate (Metoprolol Succ 50mg Ext Rel Tab) 150 mg PO QPM LELIA Stop: 09/04/20 20:59 Last Admin: 08/13/20 20:23 Dose: 150 mg Documented by: Miscellaneous (Carbohydrates For Hypoglycemia ) 15 - 30 gm PO UD PRN PRN Reason: Hypoglycemia Protocol Stop: 09/04/20 03:03 Miscellaneous Information (Pharmacy Glycemic Mgmt Consult) 1 ea N/A UD PRN; Protocol PRN Reason: Consult Stop: 09/04/20 03:20 Multivitamins (Multivitamin Tab) 1 tab PO QAM LELIA Stop: 09/08/20 08:59 Last Admin: 08/14/20 08:33 Dose: 1 tab Documented by: Naloxone HCl (Naloxone Hcl 0.4 Mg/1 Ml Vial/Carp) 0.1 mg IV Q5M PRN PRN Reason: Oversedation/Resp Depression Stop: 09/07/20 12:01 Ondansetron HCl (Ondansetron Inj 2 Mg/Ml 2 Ml Vial) 4 mg IV Q6H PRN PRN Reason: Nausea And Vomiting Stop: 09/07/20 12:01 Pantoprazole Sodium (Pantoprazole 40 Mg Tab) 40 mg PO QPM LELIA Stop: 09/04/20 20:59 Last Admin: 08/13/20 20:23 Dose: 40 mg Documented by: Polyethylene Glycol (Polyethylene (Miralax) 17 Gm Pack) 17 gm PO BID PRN PRN Reason: constipation Stop: 09/04/20 03:03 Sennosides (Senna 8.6 Mg Tab) 17.2 mg PO HS [facility] Stop: 09/07/20 20:59 Last Admin: 08/13/20 20:22 Dose: 17.2 mg Documented by: Tramadol HCl (Tramadol Hcl 50 Mg Tablet) 50 mg PO Q6H PRN PRN Reason: Pain Stop: 09/04/20 03:03 Last Admin: 08/10/20 00:01 Dose: 50 mg Documented by: PG Care Time/CCT Total # of Minutes Spent Total Time Spent with Patient: Total time spent is greater than 50% in co ordination of care (as documented) at patient's floor/unit and/or counseling patient: Coding Level of Care Code 11974 Subseq Hosp Care Lvl 2 Diagnoses Dyspnea R06.02 Dyspnea type: shortness of breath Foot ulcer L97.509 Hyperglycemia R73.9 CKD (chronic kidney disease) N18.9 Chronic kidney disease stage: unspecified stage Anemia D64.9 Anemia type: unspecified type Leg edema R60.0 WHIT (obstructive sleep apnea) G47.33 Hypertension I10 Hypertension type: essential hypertension Dyslipidemia E78.5 Diabetes E11.621; L97.509; Z79.4 Diabetes mellitus type: type 2 Diabetes mellitus correction insulin use: with manager long term care use Diabetes mellitus complication status: with skin complications Diabetes mellitus complication detail: with foot ulcer (1) Dyspnea Dyspnea type: shortness of breath Qualified Code(s): R06.02 - Shortness of breath (2) CKD (chronic kidney disease) Chronic kidney disease stage: unspecified stage Qualified Code(s): N18.9 - Chronic kidney disease, unspecified (3) Anemia Anemia type: unspecified type Qualified Code(s): D64.9 - Anemia, unspecified (4) Hypertension Hypertension type: essential hypertension Qualified Code(s): I10 - Essential (primary) hypertension (5) Diabetes Diabetes mellitus type: type 2 Diabetes mellitus manager long term care insulin use: with manager long term care use Diabetes mellitus complication status: with skin complications Diabetes mellitus complication detail: with foot ulcer Qualified Code(s): E11.621 - Type 2 diabetes mellitus with foot ulcer; L97.509 - Non-pressure chronic ulcer of other part of unspecified foot with unspecified severity; Z79.4 - USP (current) use of insulin
[2020-08-14] MEDS: SENNA 8.6 MG TAB PO SCH (21:12)
[2020-08-14] MEDS: ATORVASTATIN 40 MG TAB PO SCH (21:13)
[2020-08-14] MEDS: PANTOprazole 40 MG TAB PO SCH (21:13)
[2020-08-14] MEDS: METOPROLOL SUCC 50MG EXT REL TAB PO SCH (21:13)
[2020-08-14] MEDS: MAGNESIUM OXIDE 400 MG TAB PO SCH (21:14)
[2020-08-14] MEDS: CYANOCOBALAMIN 500 MCG TABLET (VITAMIN B-12) PO SCH (21:14)
[2020-08-15] MEDS: ACETAMINOPHEN 325 MG TAB PO PRN (05:12)
[2020-08-15] MEDS: HEPARIN SOD 5,000 UNIT/0.5 ML VIAL SQ SCH (05:13)
[2020-08-15 06:38] LABS: Hematocrit (blood only) 29.6 % (42-52); Hemoglobin 9.3 g/dL (14.0-18.0); Mean Corpuscular Hemoglobin 25.8 pg (25-34); Mean Corpuscular Hgb Conc 31.4 g/dL (32-36); Mean Platelet Volume 9.6 fL (7.4-10.4); Platelet Count 270 K/uL (130-400); RDW Coefficient of Variation 15.4 % (11.5-14.5); RDW Standard Deviation 45.8 fL (36.4-46.3); Red Blood Count 3.61 M/uL (4.7-6.1); White Blood Count 8.25 K/uL (4.8-10.8)
[2020-08-15 07:12] LABS: BUN Creatinine Ratio 24.6 (10-20); Calcium 9.1 mg/dl (8.5-10.1); Creatinine Clr Calc Pharmacy 64.5 ml/min; Est GFR (African American) 58.9; Est GFR (Non-African American) 50.8; Potassium 4.4 mmol/L (3.5-5.1)
[2020-08-15] MEDS: BUMETANIDE 1 MG TAB PO SCH (08:15)
[2020-08-15] MEDS: MULTIVITAMIN TAB PO SCH (08:15)
[2020-08-15] MEDS: DOCUSATE SODIUM 100 MG CAP PO SCH (08:15)
[2020-08-15] MEDS: ASPIRIN 81 MG ECTAB PO SCH (08:16)
[2020-08-15] MEDS: FLUTICASONE PROPIONATE NA SPR 16 GM BTL SCH (08:16)
[2020-08-15] MEDS: GABAPENTIN 600 MG TAB PO SCH (08:16)
[2020-08-15] MEDS: metroNIDAZOLE 500 MG/100 ML BAG IV SCH (08:17)
[2020-08-15] MEDS: COLLAGENASE OINT 30 GM TUBE EXT SCH (08:20)
[2020-08-15] MEDS: INSULIN ASPART 100 UNITS/ML 3 ML PEN SC SCH (08:22)
[2020-08-15] MEDS: INSULIN GLARGINE SOLOSTAR 100 UNITS/ML 3 ML PEN SQ SCH (08:23)
[2020-08-15] MEDS ORDERED: INSULIN ASPART 100 UNITS/ML 3 ML PEN SC ONE (08:45)
[2020-08-15] MEDS ORDERED: INSULIN ASPART 100 UNITS/ML 3 ML PEN SC SCH (11:30)
[2020-08-15] MEDS ORDERED: cefTRIAXone SODIUM 2,000 MG in DEXTROSE 5% 50 ML IV ONE (12:00)
[2020-08-16] MEDS ORDERED: INSULIN ASPART 100 UNITS/ML 3 ML PEN SC SCH (07:30)
--- NOTE | 2020-08-25 09:16 | Coding Query ---
PRESENT ON ADMISSION QUERY To promote full compliance with coding requirements relating to pateint care, physician participation is requested in all cases of commodity specialist uncertainty. Please assist us with the question(s) below: Please place an X within the parenthesis (x). The following diagnosis(es) listed in this patient's medical record require physician assistance to determine if they were present on admission (POA) or not. Please advise for each diagnosis whether it was present on admission, not present on admission, or if it was clinically undetermined. 1. Acute Kidney Injury (documented on Discharge Summary) ( x) Present On Admission ( ) Not Present On Admission ( ) Clinically Undetermined 2. Acute on Chronic Heart Failure with preserved EF ( x) Present On Admission ( ) Not Present On Admission ( ) Clinically Undetermined Thank you Kyung Stout *Definition of the present on admission (POA)-Present on admission is defined as present at the time the order for inpatient admission occurs. Conditions that develop during an outpatient encounter prior to a written order for inpatient admission (including emergency department, observation, or outpatient surgery) are considered present on admission. DELVIS
== END 2020-08-15 13:45 | disposition home health service (06) | DRG 628 ==
LOC: ED 22:12 → SUATTDRO 08-05 01:53 → 2N 08-05 01:53
DX: B96.89 Other specified bacterial agents as the cause of diseases classified elsewhere; Z88.8 Allergy status to other drugs, medicaments and biological substances; E11.65 Type 2 diabetes mellitus with hyperglycemia; N18.4 Chronic kidney disease, stage 4 (severe); D63.1 Anemia in chronic kidney disease; Z79.899 Other long term (current) drug therapy; K21.9 Gastro-esophageal reflux disease without esophagitis; B96.4 Proteus (mirabilis) (morganii) as the cause of diseases classified elsewhere; I50.33 Acute on chronic diastolic (congestive) heart failure; Z82.49 Family history of ischemic heart disease and other diseases of the circulatory system; L97.529 Non-pressure chronic ulcer of other part of left foot with unspecified severity; E11.621 Type 2 diabetes mellitus with foot ulcer; E78.5 Hyperlipidemia, unspecified; B95.61 Methicillin susceptible Staphylococcus aureus infection as the cause of diseases classified elsewhere; E11.22 Type 2 diabetes mellitus with diabetic chronic kidney disease; I89.0 Lymphedema, not elsewhere classified; E53.8 Deficiency of other specified B group vitamins; Z83.3 Family history of diabetes mellitus; E11.649 Type 2 diabetes mellitus with hypoglycemia without coma; E11.40 Type 2 diabetes mellitus with diabetic neuropathy, unspecified; Z51.81 Encounter for therapeutic drug level monitoring; L03.116 Cellulitis of left lower limb; Z79.4 Long term (current) use of insulin; Z20.828 Contact with and (suspected) exposure to other viral communicable diseases; E11.52 Type 2 diabetes mellitus with diabetic peripheral angiopathy with gangrene; G47.33 Obstructive sleep apnea (adult) (pediatric); Z87.891 Personal history of nicotine dependence; Z79.82 Long term (current) use of aspirin; E87.79 Other fluid overload; R09.02 Hypoxemia; E11.69 Type 2 diabetes mellitus with other specified complication; I13.0 Hypertensive heart and chronic kidney disease with heart failure and stage 1 through stage 4 chronic kidney disease, or unspecified chronic kidney disease; M86.9 Osteomyelitis, unspecified; N17.9 Acute kidney failure, unspecified

== ENCOUNTER 2020-10-06 15:51 | Inpatient (IN) ==
--- NOTE | 2020-10-06 16:06 | Emergency Department Note ---
Impression & Plan COSMO (acute kidney injury), Osteomyelitis, Leukocytosis, Breath shortness ED Provider Note NAME: BING REYNOLDS AGE: 55 SEX: M : 1965 ARRIVES VIA: Ambulance INFORMANT: Patient ED PROVIDER(S): Favian Spangler DO CHIEF COMPLAINT: shortness of breath HPI: Patient is a 55-year-old male who presents to the ER for shortness of breath. He has a history of CHF and obstructive sleep apnea. Patient presents the ER for shortness of breath which has been present for the past 3 days. He denies any cough or runny nose. No loss of taste or smell. No chest pain. He notes that shortness of breath is only present with exertion. Denies any belly pain vomiting or diarrhea. He admits to some nausea. No dysuria, urgency, or frequency. He notes that he has lost some weight and has not gained any weight. He did have a recent surgery on his foot. ROS: See above HPI for pertinent positives & negatives. A total of 10 systems reviewed and were otherwise negative. PAST MEDICAL HISTORY:See Below PAST SURGICAL HISTORY:See Below FAMILY HISTORY:See Below SOCIAL HISTORY:See Below HOME MEDICATIONS:See Below ALLERGIES:See Below VITALS:See Below PHYSICAL EXAMINATION: GENERAL: Sitting up in bed, alert, chronically ill-appearing, disheveled, talking in full sentences EYE EXAM: normal conjunctiva. PERRL and EOM's grossly intact. OROPHARYNX: Mask in place NECK: supple, no nuchal rigidity, no adenopathy, non-tender LUNGS: Clear to auscultation. Normal chest wall mechanics HEART: no murmurs, S1 normal and S2 normal ABDOMEN: abdomen soft, non-tender, normo-active bowel sounds, no masses, no rebound or guarding. BACK: Back is symmetrical on inspection and there is no deformity, no midline tenderness, no CVA tenderness. SKIN: 3 x 4 cm area of ulceration at the base of the fifth left metatarsal with easily palpable bone. Foul-smelling. Small amount of green drainage. UPPER EXTREMITIES: upper extremities are grossly normal. LOWER EXTREMITIES: Pitting edema in the bilateral lower extremities with ulceration on tracking down to the bone at the base of the fifth metatarsal. Foul-smelling. Green discharge. NEURO EXAM: Normal sensorium, cranial nerves II-XII grossly intact, normal speech, no gross weakness of arms, no gross weakness of legs. MEDICAL DECISION MAKING: Patient is a 55-year-old gentleman who presents the ER for shortness of breath which has been present for the past 3 days. He notes the ulcer on his left lower leg has been getting worse. Is extremely foul-smelling. IV was established blood work was obtained. On palpation you can appreciate the base of the fifth metatarsal. Labs show a mild leukocytosis of 12,000. Mild anemia at 9.8. INR was unremarkable at 1.3. BMP with hyponatremia 129 and a creatinine of 2.2 up from baseline of 1.5. LFTs bilirubin and troponin was negative. Covid was negative. X-ray of the foot shows a clear osteo-. He was given IV antibiotics. He was updated bedside. Discussed with the hospitalist. Venous Doppler shows no DVTs. Chest x-ray was unremarkable. Patient was updated and discussed with the hospitalist for further evaluation Triage Nursing notes reviewed. Prior medical records reviewed Vital Signs: reviewed and remarkable for htn Differential diagnosis: Differential diagnoses includes but is not limited to pneumonia, bronchitis, COPD/Asthma exacerbation, pneumothorax, pulmonary embolism, congestive heart failure, acute coronary syndrome ER treatment provided: See below Diagnostics interpreted by me: ECG: Sinus rhythm rate of 63 Poor baseline QTC 433 Left axis Cardiac Monitoring: An order was placed for continuous cardiac monitoring. The monitor shows a rate of 60 with sinus rhythm. Laboratory studies: As stated above and show below. Imaging studies: Venous Doppler extremities were negative X-ray of the foot shows osteo- Chest x-ray was unremarkable Consultation(s): discussed the hospitalist for further evaluation ED COURSE: Procedures: none Critical Care: None Past Med/Surg History Medical History (Updated 10/06/20 @ 19:48 by Jus Sterling MD) Chronic anemia Chronic back pain Chronic kidney disease Stage IIIB/4 CKD, baseline creatinine variable from 1.8-3.5 Wide fluctuation based upon volume status and diuretic use. Following closely with nephrology. Diabetes Diastolic CHF Recently hypervolemic - seen by [facility] 09/15/20. Dyslipidemia Dyspnea WITH EXERTION GERD (gastroesophageal reflux disease) Hyperkalemia Patient has been seen in ED twice last year for issues r/t this; some noncompliance issues with medications per record review; patient is following closely with nephrology. Hypertension Hypertension Hypoxia Morbid obesity Sleep apnea cpap Temporomandibular joint disorder CLICKS ON OCC NO LOCKING Surgical History History of incision and drainage Left foot (08/08/20) History of open reduction and internal fixation (ORIF) procedure Left ankle Bimalleolar Fracture (11/2019) History of placement of ear tubes right ear History of tonsillectomy and adenoidectomy Hx of cataract surgery right and left Hx of colonoscopy [place] teeth extracted Family History Father Diabetes Mother Diabetes Other Coronary heart disease Hypertension Denies family history of Crohn's disease Kidney disease Colorectal cancer Ulcerative colitis Social History Smoking Status: Former smoker Tobacco Type: Cigarettes Second Hand Exposure: No; Hx Alcohol Use: No Hx Substance Use: No Preferred Language: Frisian Communication Ability: Effective Salad Maker Required: No Beliefs That Will Affect Care: None marital status: Current Living Situation: Spouse Current Living Situation Comment: Four children, grown & in good health current occupational status: employed 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 Former Feels Safe at Home: Yes Assistive Devices: Walker Allergies Allergies Allergy/AdvReac Type Severity Reaction Status Date / Time amitriptyline AdvReac Mild muscle Verified 10/06/20 19:06 twitching hydralazine AdvReac Mild Rash Verified 10/06/20 19:06 Home Meds Home Medications Medication Instructions Recorded Confirmed atorvastatin 80 mg PO QPM 08/02/18 10/06/20 magnesium oxide 400 mg PO QPM 08/02/18 10/06/20 metoprolol succinate 150 mg PO QPM 08/02/18 10/06/20 omega 4-tud-bwa-fish oil [Fish Oil] 1 cap PO QPM 02/20/19 10/06/20 cholecalciferol (vitamin D3) 25 2,000 units PO QPM tab 11/19/19 10/06/20 mcg (1,000 unit) chewable tablet cyanocobalamin (vitamin B-12) 1,000 mcg PO QPM tab 11/19/19 10/06/20 1,000 mcg tablet gabapentin 600 mg PO TID 12/06/19 10/06/20 aspirin 81 mg tablet,delayed 81 mg PO BID tab 01/16/20 10/06/20 release tramadol 50 mg PO Q6H PRN 02/21/20 10/06/20 Probiotic 3,000 mmu cells PO QAM 03/26/20 10/06/20 fluticasone propionate [Flonase 1 spray INTRANASAL BID 05/05/20 10/06/20 Allergy Relief] Humulin R U-500 (Conc) Insulin 25 unit SUBCUT TIDWMEAL 09/18/20 10/06/20 insulin glargine 50 unit SUBCUT ONCE PM 09/18/20 10/06/20 doxazosin 4 mg tablet 4 mg PO QPM 10/01/20 10/06/20 empagliflozin [Jardiance] 10 mg PO DAILY 10/06/20 10/06/20 metformin 500 mg PO BID 10/06/20 10/06/20 Previous Rx's Medication Instructions Recorded omeprazole 20 mg PO QPM #0 cap 08/14/19 polyethylene glycol 3350 17 17 gm PO BID PRN #510 gm 12/23/19 gram/dose oral powder Santyl 1 applic EXT DAILY 28 Days #30 g 08/14/20 bumetanide 1 mg tablet 3 mg PO BID 30 Days #180 tab 09/07/20 oxycodone-acetaminophen [Percocet] 1 tab PO Q4H PRN #20 tab 09/18/20 Results & Data (ED) Vital Signs Vital Signs - 24 hr 10/06/20 15:56 10/06/20 16:03 10/06/20 16:09 Temperature 37 C Temperature Source Oral Pulse Rate 64 65 65 Pulse Rate [Apical] Pulse Rate from SpO2 Sensor 64 64 Pulse Rhythm Respiratory Rate 14 18 15 Respiratory Effort / Characteristics Respiratory Depth Normal Blood Pressure 162/70 H 162/70 H Blood Pressure [Left Arm] Blood Pressure Mean 115 100 Blood Pressure Mean [Left Arm] Pulse Oximetry 97 98 98 Oxygen Delivery Method Room Air Sepsis Recent Fever Within 48 Hours No Sepsis New/Unexplained Change in Mental Status No Sepsis Action Taken by Nursing No Action Required 10/06/20 16:30 10/06/20 16:43 10/06/20 17:00 Temperature Temperature Source Pulse Rate 62 62 67 Pulse Rate [Apical] Pulse Rate from SpO2 Sensor 60 Pulse Rhythm Regular Respiratory Rate 16 16 15 Respiratory Effort / Characteristics Respiratory Depth Blood Pressure Blood Pressure [Left Arm] Blood Pressure Mean Blood Pressure Mean [Left Arm] Pulse Oximetry 98 94 Oxygen Delivery Method Room Air Sepsis Recent Fever Within 48 Hours Sepsis New/Unexplained Change in Mental Status Sepsis Action Taken by Nursing 10/06/20 17:30 10/06/20 17:38 10/06/20 19:51 Temperature Temperature Source Pulse Rate 63 63 Pulse Rate [Apical] 63 Pulse Rate from SpO2 Sensor 63 Pulse Rhythm Respiratory Rate 12 Respiratory Effort / Characteristics Non-Labored Spontaneous Respiratory Depth Normal Blood Pressure 134/64 134/64 Blood Pressure [Left Arm] 163/71 H Blood Pressure Mean 87 78 Blood Pressure Mean [Left Arm] 101 Pulse Oximetry 98 94 Oxygen Delivery Method Room Air Room Air Sepsis Recent Fever Within 48 Hours Sepsis New/Unexplained Change in Mental Status Sepsis Action Taken by Nursing Laboratory Data Result diagrams: 10/06/20 16:36 10/06/20 16:36 Lab Results 10/06/20 10/06/20 10/06/20 Range/Units 16:36 16:36 16:36 WBC 12.07 H (4.8-10.8) K/uL RBC 3.60 L (4.7-6.1) M/uL Hgb 9.8 L (14.0-18.0) g/dL Hct 29.8 L (42-52) % MCV 82.8 (80-100) fL MCH 27.2 (25-34) pg MCHC 32.9 (32-36) g/dL RDW Std Deviation 40.7 (36.4-46.3) fL RDW Coeff of Diane 13.4 (11.5-14.5) % Plt Count 432 H (130-400) K/uL MPV 9.2 (7.4-10.4) fL Immature Gran % (Auto) 0.2 % Neut % (Auto) 72.4 % Lymph % (Auto) 16.2 % Ward % (Auto) 10.2 % Eos % (Auto) 0.8 % Baso % (Auto) 0.2 % Neut # (Auto) 8.73 H (1.4-6.5) K/uL Lymph # (Auto) 1.96 (1.2-3.4) K/uL Ward # (Auto) 1.23 H (0.11-0.59) K/uL Eos # (Auto) 0.10 (0-0.5) K/uL Baso # (Auto) 0.02 (0-0.2) K/uL Immature Gran # (Auto) 0.03 H (0.00-0.02) K/uL PT 13.4 H (9.0-12.0) Seconds INR 1.3 H (0.9-1.1) APTT 36.2 H (21.0-31.0) Seconds PTT Ratio 1.3 Sodium 129 L (136-145) mmol/L Potassium 3.7 (3.5-5.1) mmol/L Chloride 86 L (98-107) mmol/L Carbon Dioxide 33 H (21-32) mmol/L Anion Gap 10.0 (3-11) BUN 64 H (7-18) mg/dl Creatinine 2.25 H (0.6-1.4) mg/dl Est Cr Clr Drug Dosing 43.0 ml/min Est GFR ( Amer) 36.9 Est GFR (Non-Af Amer) 31.9 BUN/Creatinine Ratio 28.6 H (10-20) Glucose 150 H (70-99) mg/dl Calcium 9.8 (8.5-10.1) mg/dl Total Bilirubin 0.6 (0.2-1) mg/dl AST 29 (15-37) U/L ALT 28 (12-78) U/L Alkaline Phosphatase 90 (45-117) U/L Troponin I < 0.015 (0-0.045) ng/ml NT-Pro-B Natriuret Pep 305 (0-900) pg/ml Total Protein 8.9 H (6.4-8.2) gm/dl Albumin 2.7 L (3.4-5.0) gm/dl Globulin 6.1 H (2.5-4.0) gm/dl Albumin/Globulin Ratio 0.4 L (0.9-2) Lipase 49 L (73-393) U/L COVID-19 Eval Order SARS-CoV-2, RNA, NAAT (NEGATIVE) 10/06/20 10/06/20 Range/Units 16:36 16:36 WBC (4.8-10.8) K/uL RBC (4.7-6.1) M/uL Hgb (14.0-18.0) g/dL Hct (42-52) % MCV (80-100) fL MCH (25-34) pg MCHC (32-36) g/dL RDW Std Deviation (36.4-46.3) fL RDW Coeff of Diane (11.5-14.5) % Plt Count (130-400) K/uL MPV (7.4-10.4) fL Immature Gran % (Auto) % Neut % (Auto) % Lymph % (Auto) % Ward % (Auto) % Eos % (Auto) % Baso % (Auto) % Neut # (Auto) (1.4-6.5) K/uL Lymph # (Auto) (1.2-3.4) K/uL Ward # (Auto) (0.11-0.59) K/uL Eos # (Auto) (0-0.5) K/uL Baso # (Auto) (0-0.2) K/uL Immature Gran # (Auto) (0.00-0.02) K/uL PT (9.0-12.0) Seconds INR (0.9-1.1) APTT (21.0-31.0) Seconds PTT Ratio Sodium (136-145) mmol/L Potassium (3.5-5.1) mmol/L Chloride (98-107) mmol/L Carbon Dioxide (21-32) mmol/L Anion Gap (3-11) BUN (7-18) mg/dl Creatinine (0.6-1.4) mg/dl Est Cr Clr Drug Dosing ml/min Est GFR ( Amer) Est GFR (Non-Af Amer) BUN/Creatinine Ratio (10-20) Glucose (70-99) mg/dl Calcium (8.5-10.1) mg/dl Total Bilirubin (0.2-1) mg/dl AST (15-37) U/L ALT (12-78) U/L Alkaline Phosphatase (45-117) U/L Troponin I (0-0.045) ng/ml NT-Pro-B Natriuret Pep (0-900) pg/ml Total Protein (6.4-8.2) gm/dl Albumin (3.4-5.0) gm/dl Globulin (2.5-4.0) gm/dl Albumin/Globulin Ratio (0.9-2) Lipase (73-393) U/L COVID-19 Eval [facility] SARS-CoV-2, RNA, NAAT NEGATIVE (NEGATIVE) Administered Medications Discontinued Medications Ceftriaxone Sodium (Rocephin) 2,000 mg in 70 mls @ 140 mls/hr IV NOW STA Stop: 10/06/20 16:45 Last Infusion: 10/06/20 17:33 Dose: 0 mls/hr Documented by: [id number] Admin: 10/06/20 17:00 Dose: 140 mls/hr Documented by: [id number] Piperacillin Sod/Tazobactam Sod (Zosyn) 4.5 gm in 120 mls @ 240 mls/hr IV NOW ONE Stop: 10/06/20 18:36 Last Infusion: 10/06/20 19:52 Dose: 240 mls/hr Documented by: [id number] Infusion: 10/06/20 18:46 Dose: 0 mls/hr Documented by: [id number] Admin: 10/06/20 18:43 Dose: 240 mls/hr Documented by: [id number] Discharge Plan Visit Data Chief Complaint: Shortness of Breath/Dyspnea ED Provider: Favian Spangler Discharge Problem: COSMO (acute kidney injury), Osteomyelitis, Leukocytosis, Breath shortness Forms Stand Alone Forms: My [facility] Prescriptions Prescriptions: No Action aspirin 81 mg tablet,delayed release (DR/EC) 81 mg PO BID RF: 0 bumetanide 1 mg tablet 3 mg PO BID 30 Days Qty: 180 RF: 4 doxazosin 4 mg tablet 4 mg PO QPM RF: 0 polyethylene glycol 3350 17 gram/dose powder 17 gm PO BID PRN (Reason: constipation) Qty: 510 RF: 5 magnesium oxide 400 mg Capsule 400 mg PO QPM RF: 0 atorvastatin 80 mg Tablet 80 mg PO QPM RF: 0 metoprolol succinate 50 mg Tablet Extended Release 24 Hr 150 mg PO QPM RF: 0 omeprazole 20 mg Capsule,Delayed Release(Dr/Ec) 20 mg PO QPM Qty: 0 RF: 0 gabapentin 600 mg tablet 600 mg PO TID RF: 0 Probiotic 3 billion cell Capsule 3,000 mmu cells PO QAM RF: 0 Humulin R U-500 (Conc) Insulin 500 unit/mL Solution 25 unit subcut TIDWMEAL RF: 0 insulin glargine 100 unit/mL Cartridge 50 unit SUBCUT ONCE PM RF: 0 oxycodone-acetaminophen [Percocet] 5-325 mg tablet 1 tab PO Q4H PRN (Reason: pain) Qty: 20 RF: 0 omega 5-umk-beg-fish oil [Fish Oil] 1,000 mg (120 mg-180 mg) Capsule 1 cap PO QPM RF: 0 cholecalciferol (vitamin D3) [Vitamin D3] 25 mcg (1,000 unit) tablet,chewable 2,000 units PO QPM RF: 0 cyanocobalamin (vitamin B-12) [Vitamin B-12] 1,000 mcg tablet 1,000 mcg PO QPM RF: 0 fluticasone propionate [Flonase Allergy Relief] 50 mcg/actuation [place],Suspension 1 spray INTRANASAL BID RF: 0 tramadol 50 mg Tablet 50 mg PO Q6H PRN (Reason: Pain) RF: 0 Santyl 250 unit/gram Ointment 1 applic EXT DAILY 28 Days Qty: 30 RF: 3 metformin 500 mg Tablet 500 mg PO BID RF: 0 Jardiance 10 mg Tablet 10 mg PO DAILY RF: 0
[2020-10-06] MEDS ORDERED: cefTRIAXone SODIUM 2,000 MG/70 ML BAG IV STA (16:16)
[2020-10-06 16:50] LABS: Basophils # (auto) 0.02 K/uL (0-0.2); Basophils % (auto) 0.2 %; Eosinophils % (auto) 0.8 %; Hematocrit (blood only) 29.8 % (42-52); Hemoglobin 9.8 g/dL (14.0-18.0); Immature Granulocytes # (auto) 0.03 K/uL (0.00-0.02); Immature Granulocytes % (auto) 0.2 %; Lymphocytes # (auto) 1.96 K/uL (1.2-3.4); Lymphocytes % (auto) 16.2 %; Mean Corpuscular Hemoglobin 27.2 pg (25-34); Mean Corpuscular Hgb Conc 32.9 g/dL (32-36); Mean Corpuscular Volume 82.8 fL (80-100); Mean Platelet Volume 9.2 fL (7.4-10.4); Monocytes # (auto) 1.23 K/uL (0.11-0.59); Monocytes % (auto) 10.2 %; Neutrophils # (auto) 8.73 K/uL (1.4-6.5); Neutrophils % (auto) 72.4 %; Platelet Count 432 K/uL (130-400); RDW Coefficient of Variation 13.4 % (11.5-14.5); RDW Standard Deviation 40.7 fL (36.4-46.3); White Blood Count 12.07 K/uL (4.8-10.8)
--- NOTE | 2020-10-06 16:51 | XRay Report ---
XR chest 1V portable HISTORY: Atypical Chest Pain COMPARISON: Chest 09/18/2020. FINDINGS: The lungs are clear. The cardiac silhouette remains top normal in size. No pleural effusion s. No pneumothorax. IMPRESSION: No acute process. ACT 112: Negative or not required by law. Electronically signed by: Dhiraj Bui M.D. 10/06/2020 4:50 PM
--- NOTE | 2020-10-06 16:54 | XRay Report ---
LEFT FOOT 3 VIEWS CLINICAL HISTORY: Left foot ulceration. Clinical concern for osteomyelitis. FINDINGS: 3 views of the left foot are obtained. Correlation is made with MRI of the left foot dated 08/06/2020. The skeletal structures are osteopenic. There is chronic posttraumatic deformity of the an kle with postoperative change. There are cortical lag screws in the distal tibia and a buttress plate along the distal fibula. There is pes planus. An ulceration is seen along the plantar aspect of the foot at the level of the fifth metatarsal base. There is destructive change/fragmentation at the base of the fifth metatarsal. No additional findings are concerning for fracture. Mild osteoarthritic han nge is noted at the first metatarsophalangeal joint. Degenerative spurring is seen along the dorsal a spect of the tarsal bones. An os trigonum is incidentally noted. There are dorsal and plantar calcane al enthesophytes. Diffuse soft tissue edema is seen in the foot. IMPRESSION: 1. There is bony destruction/fragmentation at the base of the fifth metatarsal, which is new from the 08/06/2020 MRI. In the absence of trauma this likely represents osteomyelitis given the presence of a n overlying wound/ulceration. 2. No additional foci of acute bony abnormality are identified. 3. Diffuse soft tissue edema suggests cellulitis. Clinical correlation will be required. Electronically signed by: Fernando Carver M.D. 10/06/2020 4:53 PM
[2020-10-06 17:02] LABS: INR 1.3 (0.9-1.1); Partial Thromboplastin Ratio 1.3; Partial Thromboplastin Time 36.2 Seconds (21.0-31.0); Prothrombin Time 13.4 Seconds (9.0-12.0)
[2020-10-06 17:09] LABS: Alanine Aminotransferase 28 U/L (12-78); Albumin Level 2.7 gm/dl (3.4-5.0); Aspartate Aminotransferase 29 U/L (15-37); BUN Creatinine Ratio 28.6 (10-20); Blood Urea Nitrogen 64 mg/dl (7-18); Calcium 9.8 mg/dl (8.5-10.1); Carbon Dioxide 33 mmol/L (21-32); Chloride 86 mmol/L (98-107); Est GFR (African American) 36.9; Est GFR (Non-African American) 31.9; Glucose 150 mg/dl (70-99); Lipase 49 U/L (73-393); Potassium 3.7 mmol/L (3.5-5.1); Sodium 129 mmol/L (136-145)
[2020-10-06 17:14] LABS: Albumin Globulin Ratio 0.4 (0.9-2); Alkaline Phosphatase 90 U/L (45-117); Bilirubin,Total 0.6 mg/dl (0.2-1); Globulin 6.1 gm/dl (2.5-4.0); NT Pro B Type Natriuretic Pept 305 pg/ml (0-900); Total Protein 8.9 gm/dl (6.4-8.2); Troponin I < 0.015 ng/ml (0-0.045)
[2020-10-06] MEDS ORDERED: PIPERACILL/TAZOBAC CONSULT ACTIVE PRN ×2 (18:07→21:13)
[2020-10-06] MEDS ORDERED: PIPERACILLIN/TAZOBACTAM 4.5 GM/120 ML BAG IV ONE (18:07)
--- NOTE | 2020-10-06 18:15 | Ultrasound Report ---
BILATERAL LOWER EXTREMITY VENOUS DOPPLER HISTORY: Leg swelling. COMPARISON STUDY: None. FINDINGS: There is normal compressibility, flow, and augmentation within the bilateral lower extremit y deep venous systems. IMPRESSION: No DVT within the right or left lower extremity. ACT 112: Negative or not required by law. Electronically signed by: Dhiraj Bui M.D. 10/06/2020 6:13 PM
--- NOTE | 2020-10-06 19:05 | History & Physical Report ---
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 Bernardo) who presented to [facility] ED on 10/06/2020 for dyspnea on exertion for 3 days. Left Foot Ulcer - recent left 5th metatarsal osteomyelitis s/p abx x30 days and I&D on 09/18 - in the ED, left ulceration with overlying green film and malodorous green discharge with surrounding erythema - XR left foot shows bony destruction/fragmentation at base of 5th metatarsal suspicious for osteomyelitis - received Rocephin 2g IV in ED - blood/wound cx ordered - will start Zosyn IV for Pseudomonas coverage - orthopedic surgery consulted (Dr. Bernardo - performed I&D on 09/18) - NPO at midnight pending Ortho consult and decision on procedure - follow CBC daily as well as cx's Shortness of Breath - reports h/o recent YLMAN x3 days - hemodynamically stable in the ED - satting well on RA, not hypervolemic on exam - WBC mildly elevated at 12.07, CXR without signs of fluid overload or PNA, LLE venous doppler without sign of DVT - unlikely to be 2/2 CHF exacerbation or PE, given no hypervolemia and no DVT - suspect 2/2 worsening foot cellulitis/osteomyelitis, cannot r/o bacteremia at this time - follow blood/wound cx as above - monitor clinically for signs of deterioration COSMO on CKD - Cr 2.25, Ratio 28.6 - Cr down from 2.68 on 10/02 (stopped Metolazone on 10/01) - baseline Cr 1.5-1.8 - suspect pre-renal injury 2/2 excessive diuresis, improving since off of Metolazone - hold home Bumex and continue to hold Metolazone - follow BMP daily - would consider light IVFs if lack of improvement tomorrow, but cautious use 2/2 fluid overload/CHF Contraction Alkalosis - Cl 86, HCO3 33, COSMO as above - 2/2 excessive diuresis - hold diuretics as mentioned above, follow BMP for improvement CHF - intermittent LE edema x several weeks that recently improved - last TTE 03/02/2020: EF 60-65%, normal LV systolic function and normal diastolic function, significant MR - continue home Toprol 150mg PO QHS, hold Bumex/Metolazone as above - continue Aspirin 81 mg PO BID - daily weights, strict I/Os, heart-healthy/low-sodium diet T2DM - last A1c 6.9 on 09/15/2020 - basal insulin + SSI WHIT - CPAP QHS HTN - continue home Doxazosin 4 mg PO QHS and Toprol as mentioned above HLD - continue Lipitor 80 mg PO QHS GERD - Protonix 20 mg PO QHS per hospital formulary FEN/GI: DM2, heart-healthy/salt-restricted DVT Prophylaxis: Heparin 5000 units SQ Q8H Code Status: Full code Disposition: Med/surg with tele (2) Shortness of breath: (3) Acute kidney injury: (4) Acute on chronic renal failure: (5) CHF (congestive heart failure): (6) Diabetes: (7) Chronic anemia: (8) Hypertension: (9) WHIT (obstructive sleep apnea): (10) HLD (hyperlipidemia): (11) Venous stasis dermatitis: Admission and Anticipated Discharge Date Admission Date: 10/06/2020 History of Present Illness Chief Complaint: shortness of breath Primary Care Provider: Marbella Gomez Reid Swartz is a 55 yo male with h/o 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 Bernardo) who presented to [facility] ED on 10/06/2020 for dyspnea on exertion for 3 days. Patient reports that he had intermittent LE edema (left foot worse than right foot) after the I&D on 09/18, although the edema was largely resolved as of 10/02. He followed up with Dr. Bernardo on 10/02 and reportedly had no signs of infection at that time - left foot was healing well. Started to have dyspnea on exertion starting on 10/03 - no associated orthopnea, PND, worsening LE edema. No fever/chills, chest pain/palpitations, cough, N/V, diarrhea. Patient sees Dina Artis for h/o hypervolemia/CHF - Metolazone was stopped on 10/01 due to COSMO but continued to take Bumex 3mg PO BID as prescribed. Reports impaired foot sensation for "years" but issues with foot ulcers for several months. Was started on Metformin and Jardiance 2 weeks ago by Secondary Education Professor - continues to take daily insulin + SSI. Last A1c 6.9 on 09/15/2020. No other medication changes. Lives with . Proficient in ADLs and most iADLs - uses a cane. 60 pack year tobacco smoking history - quit 6 years ago. Denies alcohol/drug use. In the ED was found to have persistent osteomyelitis of left 5th metatarsal as well as COSMO - BNP WNL and no signs of pulmonary edema/effusions on CXR. Hemodynamically stable/afebrile. Allergies Allergy/AdvReac Type Severity Reaction Status Date / Time amitriptyline AdvReac Mild muscle Verified 10/06/20 19:06 twitching hydralazine AdvReac Mild Rash Verified 10/06/20 19:06 Home Medications Medication Instructions Recorded Confirmed Type atorvastatin 80 mg PO QPM 08/02/18 10/06/20 History magnesium oxide 400 mg PO QPM 08/02/18 10/06/20 History metoprolol succinate 150 mg PO QPM 08/02/18 10/06/20 History omega 9-ssx-bbx-fish oil [Fish Oil] 1 cap PO QPM 02/20/19 10/06/20 History omeprazole 20 mg PO QPM #0 cap 08/14/19 10/06/20 Rx cholecalciferol (vitamin D3) 25 2,000 units PO QPM tab 11/19/19 10/06/20 History mcg (1,000 unit) chewable tablet cyanocobalamin (vitamin B-12) 1,000 mcg PO QPM tab 11/19/19 10/06/20 History 1,000 mcg tablet gabapentin 600 mg PO TID 12/06/19 10/06/20 History polyethylene glycol 3350 17 17 gm PO BID PRN #510 gm 12/23/19 10/06/20 Rx gram/dose oral powder aspirin 81 mg tablet,delayed 81 mg PO BID tab 01/16/20 10/06/20 History release tramadol 50 mg PO Q6H PRN 02/21/20 10/06/20 History Probiotic 3,000 mmu cells PO QAM 03/26/20 10/06/20 History fluticasone propionate [Flonase 1 spray INTRANASAL BID 05/05/20 10/06/20 History Allergy Relief] Santyl 1 applic EXT DAILY 28 Days #30 g 08/14/20 10/06/20 Rx Humulin R U-500 (Conc) Insulin 25 unit SUBCUT TIDWMEAL 09/18/20 10/06/20 History insulin glargine 50 unit SUBCUT ONCE PM 09/18/20 10/06/20 History oxycodone-acetaminophen [Percocet] 1 tab PO Q4H PRN #20 tab 09/18/20 10/06/20 Rx doxazosin 4 mg tablet 4 mg PO QPM 10/01/20 10/06/20 History Jardiance 10 mg PO DAILY 10/06/20 10/06/20 History metformin 500 mg PO BID 10/06/20 10/06/20 History sulfamethoxazole-trimethoprim 1 tab PO BID 5 Days #10 tab 10/10/20 Rx sulfamethoxazole-trimethoprim 1 tab PO Q12 #60 tab 10/10/20 Rx Past Med/Surg History Medical History Chronic anemia Chronic back pain Chronic kidney disease Stage IIIB/4 CKD, baseline creatinine variable from 1.8-3.5 Wide fluctuation based upon volume status and diuretic use. Following closely with nephrology. Diabetes Diastolic CHF Recently hypervolemic - seen by [facility] 09/15/20. Dyslipidemia Dyspnea WITH EXERTION GERD (gastroesophageal reflux disease) Hyperkalemia Patient has been seen in ED twice last year for issues r/t this; some noncompliance issues with medications per record review; patient is following closely with nephrology. Hypertension Hypertension Hypoxia Morbid obesity Sleep apnea cpap Temporomandibular joint disorder CLICKS ON OCC NO LOCKING Surgical History History of incision and drainage Left foot (08/08/20) History of open reduction and internal fixation (ORIF) procedure Left ankle Bimalleolar Fracture (11/2019) History of placement of ear tubes right ear History of tonsillectomy and adenoidectomy Hx of cataract surgery right and left Hx of colonoscopy [place] teeth extracted Family History Father Diabetes Mother Diabetes Other Coronary heart disease Hypertension Denies family history of Crohn's disease Kidney disease Colorectal cancer Ulcerative colitis Social History Smoking Status: Former smoker Tobacco Type: Cigarettes Second Hand Exposure: No; Hx Alcohol Use: No Hx Substance Use: No Preferred Language: Jamaican Communication Ability: Effective Wooden Tank Erector Required: No Beliefs That Will Affect Care: None marital status: Current Living Situation: Spouse Current Living Situation Comment: Four children, grown & in good health current occupational status: employed 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 Feels Safe at Home: Yes Assistive Devices: Cane Review of Systems Constitutional: no fever, no chills and no fatigue Eyes: no worsening vision Ear, Nose, Mouth, Throat: no hearing loss Respiratory: + dyspnea; no cough and no wheezing Cardiovascular: + edema (minimal, improved over last several weeks); no chest pain and no palpitations Gastrointestinal: no abdominal pain, no nausea, no vomiting and no diarrhea/loose stools Genitourinary: no dysuria, no difficulty urinating and no urinary frequency Integumentary: no rash Neurologic: no syncope and no headache(s) Hematologic / Lymphatic: no easy bleeding and no easy bruising Physical Exam Constitutional: WD/WN, vitals as above Eyes: PERRL, conjunctivae normal, anicteric sclerae Respiratory: normal respiratory effort, lungs clear to auscultation Auscultation: no crackles and no wheezes Cardiovascular: Rate/Rhythm: regular rate and regular rhythm Heart Sounds: normal S1 and normal S2; no murmur Vessels: no JVD Extremities: + edema (trace pitting edema bilaterally up to shins, worse on the left) Gastrointestinal (Abdomen): normal bowel sounds, soft, nontender, no hepatosplenomegaly Skin: - venous status dermatitis bilaterally, dry/calloused/excoriated skin on both plantar feet, no ulcers on right foot - ulceration on lateral aspect of plantar surface of left midfoot with overlying green film, yellow drainage and surrounding erythema, moderately tender to palpation of area surrounding ulceration; no red streaking or crepitus Neurologic: + plantar reflexes not intact Motor/Sensory: + sensory deficit (bilateral feet) Psychiatric: A+Ox3, euthymic affect Lymphatic: no cervical lymphadenopathy Results & Data Results & Data ([facility]) Vital Signs (Past 12 Hours) Vital Signs Temp Pulse Resp BP Pulse Ox 10/06/20 17:38 63 134/64 10/06/20 17:30 63 134/64 98 10/06/20 17:00 67 15 94 10/06/20 16:43 62 16 98 10/06/20 16:30 62 16 10/06/20 16:09 65 15 98 10/06/20 16:03 37 C 65 18 162/70 H 98 10/06/20 15:56 64 14 162/70 H 97 Code Status & VTE Plan Code Status Full Code VTE Prophylaxis Plan VTE Prophylaxis will be ordered: Yes Supervising Physician Co-Signing Physician Notes I personally saw and examined the patient. I verified all lester points and agree with Resident physician Dr Sterling with the following exceptions and/or additions: 55yo male with T2DM presents to ER with 3 days SOB. He does note his weight has been decreasing. O/E HS RRR 1+2, no murmurs, Chest CTAB, wrinkles on bilateral lower extremities. 1+ edema to knees equal bilaterally. A/P Shortness of breath - etiology suspected to be combination of deconditioning and infection. No acute pathology identified. Low suspicion of PE given negative b/l LE venous dopplers, no tachycardia or hypoxia. Osteomyelitis - Start Zosyn. Wound and blood cultures. CKD - agree with fluid balance assessment above - currently intravascularly deplete therefore will hold Bumex pending improvement with Cr and Na. Resident Activity Tracking Resident Involvement: Resident Care Provided Care Provided: Adult Hospital Medicine (1) Diabetes Diabetes mellitus complication detail: with foot ulcer Diabetes mellitus complication status: with skin complications Diabetes mellitus halfway insulin use: with superintendent marine oil terminal use Diabetes mellitus type: type 2 Qualified Code(s): E11.621 - Type 2 diabetes mellitus with foot ulcer; L97.509 - Non- pressure chronic ulcer of other part of unspecified foot with unspecified severity; Z79.4 - ad terminal makeup operator (current) use of insulin (2) CHF (congestive heart failure) Heart failure chronicity: acute on chronic Heart failure type: diastolic Qualified Code(s): I50.33 - Acute on chronic diastolic (congestive) heart failure (3) Acute on chronic renal failure Acute renal failure type: unspecified Chronic kidney disease stage: unspecified stage Qualified Code(s): N17.9 - Acute kidney failure, unspecified; N18.9 - Chronic kidney disease, unspecified (4) Hypertension Hypertension type: essential hypertension Qualified Code(s): I10 - Essential (primary) hypertension
[2020-10-06] MEDS ORDERED: GLUCOSE 10 TABS/TUBE PO PRN (21:13)
[2020-10-06] MEDS ORDERED: DEXTROSE 50% 50 ML SYRINGE IV PRN (21:13)
[2020-10-06] MEDS ORDERED: GLUCAGON FOR INJ 1 MG VIAL SQ PRN (21:13)
[2020-10-06] MEDS ORDERED: oxyCODONE/ACETAMINOPHEN 5mg/325mg TAB PO PRN (21:13)
[2020-10-06] MEDS ORDERED: CARBOHYDRATES FOR HYPOGLYCEMIA PO PRN (21:13)
[2020-10-06] MEDS ORDERED: GLUCOSE 40% GEL 15 GM TUBE PO PRN (21:13)
[2020-10-06] MEDS ORDERED: traMADol HCL 50 MG TABLET PO PRN (21:13)
[2020-10-06] MEDS ORDERED: POLYETHYLENE (MIRALAX) 17 GM PACK PO PRN (21:13)
[2020-10-06] MEDS ORDERED: PHARMACY GLYCEMIC MGMT CONSULT PRN (21:21)
--- NOTE | 2020-10-06 21:42 | Pharmacy Report ---
Pharmacy Glycemic Short Note 2 - Date of Service October 06, 2020 - Glycemic Short BSG Results (Last 24 hours): 10/06/20 10/06/20 16:36 21:11 Glucose 150 H POC Glucose 247 H OUTPATIENT ANTIDIABETIC REGIMEN: * Empagliflozin (Jardiance) 10mg PO daily * Glargine 50 units SQ HS * U500- Regular insulin 25 units SQ with meals (this needs to be confirmed with patient) * A1c = 6.9% on 09/15/20 ASSESSMENT: * 55yo T2DM male known to pharmacy from previous admissions/glycemic consults; most recently last month. * Pt typically uses ~ 200 units of insulin while admitted split 50%:50% between basal and prandial insulin * Pt will be NPO after midnight. * Will continue similar orders as August admission but will reduce AM Lantus dose while NPO * Typically, basal insulin dosing is reduced by 20-50% while NPO * Will continue to titrate dosing based on BSG trends * Tight glycemic control crucial for wound healing PLAN FOR INPATIENT GLYCEMIC CONTROL: * Hold outpatient oral diabetes medications * Basal insulin * Lantus 50 units SQ HS + 40 units SQ AM (this is a dose reduction of 20% for AM dose while NPO) * Bolus insulin * NovoLog per scale ACHS or Q6hrs while NPO * Goal Range: Low 110 mg/dL - High 140 mg/dL * Correction Factor: 10 mg/dL/unit * Nutritional / Prandial insulin per carb ratio of 1 unit per 3 grams CHO consumed
[2020-10-06] MEDS ORDERED: INSULIN GLARGINE SOLOSTAR 100 UNITS/ML 3 ML PEN SC SCH (21:45)
[2020-10-06] MEDS: FLUTICASONE PROPIONATE NA SPR 16 GM BTL SCH (21:53)
[2020-10-06] MEDS: ASPIRIN 81 MG ECTAB PO SCH (21:53)
[2020-10-06] MEDS: CYANOCOBALAMIN 500 MCG TABLET (VITAMIN B-12) PO SCH (21:54)
[2020-10-06] MEDS: DOXAZosin MESYLATE 4 MG TAB PO SCH (21:54)
[2020-10-06] MEDS: CHOLECALCIFEROL 1,000 UNITS 25 MCG TAB PO SCH (21:54)
[2020-10-06] MEDS: GABAPENTIN 600 MG TAB PO SCH (21:55)
[2020-10-06] MEDS: MAGNESIUM OXIDE 400 MG TAB PO SCH (21:55)
[2020-10-06] MEDS: ATORVASTATIN 40 MG TAB PO SCH (21:55)
[2020-10-06] MEDS: METOPROLOL SUCC 50MG EXT REL TAB PO SCH (21:55)
[2020-10-06] MEDS: PANTOprazole 40 MG TAB PO SCH (21:55)
[2020-10-06] MEDS: HEPARIN SOD 5,000 UNIT/0.5 ML VIAL SQ SCH (21:58)
[2020-10-06] MEDS: INSULIN ASPART 100 UNITS/ML 3 ML PEN SC SCH (21:58)
[2020-10-07] MEDS: PIPERACILLIN/TAZOBACTAM 3.375 GM in DEXTROSE 5% 100 ML IV SCH ×2 (00:05→08:40)
[2020-10-07] MEDS: ACETAMINOPHEN 325 MG TAB PO PRN (03:24)
--- NOTE | 2020-10-07 05:13 | Electrocardiogram Report ---
Test Reason : Blood Pressure : / mmHG Vent. Rate : 063 BPM Atrial Rate : 063 BPM P-R Int : 180 ms QRS Dur : 096 ms QT Int : 424 ms P-R-T Axes : 035 -24 021 degrees QTc Int : 433 ms Normal sinus rhythm Incomplete right bundle branch block Borderline ECG When compared with ECG of 04-AUG-2020 22:28, QRS axis Shifted right Nonspecific T wave abnormality now evident in Inferior leads Confirmed by Andre Almanzar ([id number]) on 10/07/2020 5:13:04 AM Referred By: REFERRED SELF Confirmed By:Andre Almanzar
[2020-10-07] MEDS: HEPARIN SOD 5,000 UNIT/0.5 ML VIAL SQ SCH ×3 (05:27→20:18)
--- NOTE | 2020-10-07 08:25 | Orthopedic Consultation ---
Date of Consultation October 07, 2020 Assessment & Plan (1) Foot ulcer, left: Chronic infection left foot neuropathic ulcer with new bony changes at the base of the left fifth metatarsal. I discussed the case with Dr. Bernardo. Continue to follow cultures for now. Continue IV antibiotics. Plan for irrigation and debridement tomorrow on 10/08/[address] Bernardo. History of Present Illness Reason for Consultation: Infection Chronic Ulcer Left Foot Attending Physician: Modesta Duval DO History of Present Illness 55-year-old white male known to our practice with previous repeat I&D of the left foot neuropathic ulcer over the fifth metatarsal region. Initial I&D occurred on 08/06/2020. Patient returned to the OR on 09/18/2020 for repeat I&D and application of TheraSkin. The patient states that his foot was healing fine. He had seen Dr. Bernardo in the office a little less than a week ago. There was apparently no problem with the graft and the wound was doing well. Over the course of the week the patient began noticed increased swelling in his lower extremities and difficulty breathing. He came into the emergency room last night due to his breathing issues. At that time they took the dressing off of his left foot and noticed purulent drainage from the wound and a foul odor. The wound was swabbed for culture and was noted to be showing few gram-positive cocci on Gram stain. Patient denies any fevers, chills, nausea or vomiting prior to coming to the hospital. He states that his only issue at the time was difficulty breathing. We have been asked to see him for his neuropathic ulcer. Allergies Allergy/AdvReac Type Severity Reaction Status Date / Time amitriptyline AdvReac Mild muscle Verified 10/06/20 19:06 twitching hydralazine AdvReac Mild Rash Verified 10/06/20 19:06 Home Medications Medication Instructions Recorded Confirmed Type atorvastatin 80 mg PO QPM 08/02/18 10/06/20 History magnesium oxide 400 mg PO QPM 08/02/18 10/06/20 History metoprolol succinate 150 mg PO QPM 08/02/18 10/06/20 History omega 1-liq-oev-fish oil [Fish Oil] 1 cap PO QPM 02/20/19 10/06/20 History omeprazole 20 mg PO QPM #0 cap 08/14/19 10/06/20 Rx cholecalciferol (vitamin D3) 25 2,000 units PO QPM tab 11/19/19 10/06/20 History mcg (1,000 unit) chewable tablet cyanocobalamin (vitamin B-12) 1,000 mcg PO QPM tab 11/19/19 10/06/20 History 1,000 mcg tablet gabapentin 600 mg PO TID 12/06/19 10/06/20 History polyethylene glycol 3350 17 17 gm PO BID PRN #510 gm 12/23/19 10/06/20 Rx gram/dose oral powder aspirin 81 mg tablet,delayed 81 mg PO BID tab 01/16/20 10/06/20 History release tramadol 50 mg PO Q6H PRN 02/21/20 10/06/20 History Probiotic 3,000 mmu cells PO QAM 03/26/20 10/06/20 History fluticasone propionate [Flonase 1 spray INTRANASAL BID 05/05/20 10/06/20 History Allergy Relief] Santyl 1 applic EXT DAILY 28 Days #30 g 08/14/20 10/06/20 Rx bumetanide 1 mg tablet 3 mg PO BID 30 Days #180 tab 09/07/20 10/06/20 Rx Humulin R U-500 (Conc) Insulin 25 unit SUBCUT TIDWMEAL 09/18/20 10/06/20 History insulin glargine 50 unit SUBCUT ONCE PM 09/18/20 10/06/20 History oxycodone-acetaminophen [Percocet] 1 tab PO Q4H PRN #20 tab 09/18/20 10/06/20 Rx doxazosin 4 mg tablet 4 mg PO QPM 10/01/20 10/06/20 History empagliflozin [Jardiance] 10 mg PO DAILY 10/06/20 10/06/20 History metformin 500 mg PO BID 10/06/20 10/06/20 History Patient History Medical History Chronic anemia Chronic back pain Chronic kidney disease Stage IIIB/4 CKD, baseline creatinine variable from 1.8-3.5 Wide fluctuation based upon volume status and diuretic use. Following closely with nephrology. Diabetes Diastolic CHF Recently hypervolemic - seen by [facility] 09/15/20. Dyslipidemia Dyspnea WITH EXERTION GERD (gastroesophageal reflux disease) Hyperkalemia Patient has been seen in ED twice last year for issues r/t this; some noncompliance issues with medications per record review; patient is following closely with nephrology. Hypertension Hypertension Hypoxia Morbid obesity Sleep apnea cpap Temporomandibular joint disorder CLICKS ON OCC NO LOCKING Surgical History History of incision and drainage Left foot (08/08/20) History of open reduction and internal fixation (ORIF) procedure Left ankle Bimalleolar Fracture (11/2019) History of placement of ear tubes right ear History of tonsillectomy and adenoidectomy Hx of cataract surgery right and left Hx of colonoscopy [place] teeth extracted Family History Father Diabetes Mother Diabetes Other Coronary heart disease Hypertension Denies family history of Crohn's disease Kidney disease Colorectal cancer Ulcerative colitis Social History Smoking Status: Former smoker Tobacco Type: Cigarettes Second Hand Exposure: No; Do You Dip or Chew Tobacco: No; Tobacco Cessation Education Requested by Patient: No Hx Alcohol Use: No Hx Substance Use: No Preferred Language: Spanish Communication Ability: Effective Practice Professional Required: No Beliefs That Will Affect Care: None marital status: Current Living Situation: Spouse Current Living Situation Comment: Four children, grown & in good health current occupational status: employed 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 Currently he is sleeping upon arrival and was easily awoken. No complaints at this time. History of neuropathy of his foot and he is not having any pain. On examination of the left foot, the dressing is removed. Most of the foot is dry skinned and callused. He has a neuropathic ulcer that is approximately 2- 1/2 cm in width. He has a yellow purulent drainage noted on the dressing that has a foul odor. There is a slight yellow crusting around the edge of the wound itself with mild erythema. The base of the ulcer is pale and has some scant purulent drainage on it. Neuropathy is noted. Venous stasis changes noted on the lower extremity. Results & Data ([facility]) Vital Signs (Past 12 Hours) Vital Signs Temp Pulse Pulse Resp BP Pulse Ox 10/07/20 07:35 36.8 C 57 L 18 110/69 96 10/07/20 07:14 60 10/07/20 05:30 37.3 C 10/07/20 04:10 37.7 C H 10/07/20 03:12 37.9 C H 71 18 119/57 L 96 10/07/20 02:29 63 18 95 10/07/20 01:03 67 10/07/20 00:18 68 18 98 10/06/20 23:22 37.1 C 64 18 141/69 H 95 10/06/20 22:36 70 10/06/20 22:10 36.9 C 70 18 134/75 94 Laboratory Results Present wound culture from 10/06/2020 showing rare gram-positive cocci Diagnostic Findings Patient: BING REYNOLDS Date: 10/06/20MR#: [id number]: 2022 [place] RDAcct ID:[id number]: Date: 1965[facility] Zip: [place], [place] [address]Stt: 55Location: EDSex: MRoom/Bed:Att Phy:Diagnosis: SOBPri Phy: Marbella Gomez PA-CService Date: 10/06/20Fa Phy: Marbella Gomez PA-CInterpreting Phy: Fernando Carver [facility] Phy: Ordering Phy: Favian Spangler DO cc: ~ LEFT FOOT 3 VIEWS CLINICAL HISTORY: Left foot ulceration. Clinical concern for osteomyelitis. FINDINGS: 3 views of the left foot are obtained. Correlation is made with MRI of the left foot dated 08/06/2020. The skeletal structures are osteopenic. There is chronic posttraumatic deformity of the ankle with postoperative change. There are cortical lag screws in the distal tibia and a buttress plate along the distal fibula. There is pes planus. An ulceration is seen along the plantar aspect of the foot at the level of the fifth metatarsal base. There is destructive change/fragmentation at the base of the fifth metatarsal. No additional findings are concerning for fracture. Mild osteoarthritic change is noted at the first metatarsophalangeal joint. Degenerative spurring is seen along the dorsal aspect of the tarsal bones. An os trigonum is incidentally noted. There are dorsal and plantar calcaneal enthesophytes. Diffuse soft tissue edema is seen in the foot. IMPRESSION: 1. There is bony destruction/fragmentation at the base of the fifth metatarsal, which is new from the 08/06/2020 MRI. In the absence of trauma this likely represents osteomyelitis given the presence of an overlying wound/ulceration. 2. No additional foci of acute bony abnormality are identified. 3. Diffuse soft tissue edema suggests cellulitis. Clinical correlation will be required.
[2020-10-07] MEDS: FLUTICASONE PROPIONATE NA SPR 16 GM BTL SCH ×2 (08:42→20:17)
[2020-10-07] MEDS: GABAPENTIN 600 MG TAB PO SCH ×3 (08:42→20:17)
[2020-10-07] MEDS: ASPIRIN 81 MG ECTAB PO SCH ×2 (08:42→20:18)
[2020-10-07] MEDS ORDERED: INSULIN GLARGINE SOLOSTAR 100 UNITS/ML 3 ML PEN SC SCH ×2 (09:00→21:00)
[2020-10-07] MEDS: INSULIN ASPART 100 UNITS/ML 3 ML PEN SC SCH ×4 (09:16→20:16)
--- NOTE | 2020-10-07 10:43 | Pharmacy Report ---
Pharmacy Glycemic Short Note 2 - Date of Service October 07, 2020 - Glycemic Short BSG Results (Last 24 hours): 10/06/20 10/06/20 10/07/20 16:36 21:11 00:20 Glucose 150 H POC Glucose 247 H 219 H 10/07/20 10/07/20 05:12 08:32 Glucose POC Glucose 155 H 115 H OUTPATIENT ANTIDIABETIC REGIMEN: * Empagliflozin (Jardiance) 10mg PO daily * Glargine 50 units SQ HS * U500- Regular insulin 25 units SQ with meals (this needs to be confirmed with patient) * A1c = 6.9% on 09/15/20 ASSESSMENT: * 55yo T2DM male known to pharmacy from previous admissions/glycemic consults; most recently last month. * Pt typically uses ~ 200 units of insulin while admitted split 50%:50% between basal and prandial insulin * Tight glycemic control crucial for wound healing * Will utilize SC basal/bolus with Lantus and Novolog * Patient received 71 units of insulin overnight (50 units of Lantus and 21 units of Novolog) * Patient was originally NPO after midnight for possible procedure today, but moved to tomorrow (left foot I&D) * Lantus 40 units (20% dose reduction) given this morning, will utilize Lantus scale this evening * Will use previous admission data to guide initial insulin dosing PLAN FOR INPATIENT GLYCEMIC CONTROL: * Hold outpatient oral diabetes medications * Basal insulin * Lantus 40 units SC x 1 this morning * Lantus scale this evening to provide 45-50 units (see EHR for details) * Reassess in AM given NPO status * Bolus insulin * NovoLog per scale ACHS or Q6hrs while NPO * Goal Range: Low 110 mg/dL - High 140 mg/dL * Correction Factor: 10 mg/dL/unit * Nutritional / Prandial insulin per carb ratio of 1 unit per 3 grams CHO consumed
[2020-10-07 12:38] LABS: Basophils # (auto) 0.02 K/uL (0-0.2); Basophils % (auto) 0.2 %; Eosinophils # (auto) 0.16 K/uL (0-0.5); Eosinophils % (auto) 1.4 %; Hematocrit (blood only) 29.4 % (42-52); Hemoglobin 9.4 g/dL (14.0-18.0); Immature Granulocytes # (auto) 0.03 K/uL (0.00-0.02); Immature Granulocytes % (auto) 0.3 %; Lymphocytes # (auto) 1.87 K/uL (1.2-3.4); Lymphocytes % (auto) 16.8 %; Mean Corpuscular Hemoglobin 26.5 pg (25-34); Mean Corpuscular Volume 82.8 fL (80-100); Mean Platelet Volume 9.2 fL (7.4-10.4); Monocytes # (auto) 1.11 K/uL (0.11-0.59); Neutrophils # (auto) 7.95 K/uL (1.4-6.5); Neutrophils % (auto) 71.3 %; Platelet Count 412 K/uL (130-400); RDW Coefficient of Variation 13.3 % (11.5-14.5); RDW Standard Deviation 40.9 fL (36.4-46.3); Red Blood Count 3.55 M/uL (4.7-6.1); White Blood Count 11.14 K/uL (4.8-10.8)
--- NOTE | 2020-10-07 12:43 | Hospitalist Progress Note ---
Date of Service October 07, 2020 Assessment & Plan (1) Foot ulcer, left: Reid Swartz is a 55 yo male with h/o 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 Bernardo) who presented to [facility] ED on 10/06/2020 for dyspnea on exertion for 3 days. Left Foot Ulcer - recent left 5th metatarsal osteomyelitis s/p abx x30 days and I&D on 09/18 - in the ED, left ulceration with overlying green film and malodorous green discharge with surrounding erythema - XR left foot shows bony destruction/fragmentation at base of 5th metatarsal suspicious for osteomyelitis - received Rocephin 2g IV in ED - blood/wound cx ordered - will start Zosyn IV for Pseudomonas coverage - orthopedic surgery consulted (Dr. Bernardo - performed I&D on 09/18) Dr. Bernardo planning for OR on 10/08 for I&D Shortness of Breath - reports h/o recent LYMAN x3 days - hemodynamically stable in the ED - satting well on RA, not hypervolemic on exam - WBC mildly elevated at 12.07, CXR without signs of fluid overload or PNA, LLE venous doppler without sign of DVT - unlikely to be 2/2 CHF exacerbation or PE, given no hypervolemia and no DVT - suspect 2/2 worsening foot cellulitis/osteomyelitis, cannot r/o bacteremia at this time - follow blood/wound cx as above D/W ALLI Elizalde at CHF clinic, who is familiar with pt. She does not feel pt has CHF given BNP is always WNL and had suggested pt be seen in lymphedema clinic COSMO on CKD - Cr 2.25, Ratio 28.6 - Cr down from 2.68 on 10/02 (stopped Metolazone on 10/01) - baseline Cr 1.5-1.8 - suspect pre-renal injury 2/2 excessive diuresis, improving since off of Metolazone - hold home Bumex and continue to hold Metolazone - follow BMP daily - would consider light IVFs if lack of improvement tomorrow, but cautious use 2/2 fluid overload/CHF Contraction Alkalosis - Cl 86, HCO3 33, COSMO as above - 2/2 excessive diuresis - hold diuretics as mentioned above, follow BMP for improvement CHF - intermittent LE edema x several weeks that recently improved - last TTE 03/02/2020: EF 60-65%, normal LV systolic function and normal diastolic function, significant MR - continue home Toprol 150mg PO QHS, hold Bumex/Metolazone as above - continue Aspirin 81 mg PO BID - daily weights, strict I/Os, heart-healthy/low-sodium diet T2DM - last A1c 6.9 on 09/15/2020 - basal insulin + SSI WHIT - CPAP QHS HTN - continue home Doxazosin 4 mg PO QHS and Toprol as mentioned above HLD - continue Lipitor 80 mg PO QHS GERD - Protonix 20 mg PO QHS per hospital formulary FEN/GI: DM2, heart-healthy/salt-restricted DVT Prophylaxis: Heparin 5000 units SQ Q8H Code Status: Full code Disposition: Med/surg with tele (2) Shortness of breath: (3) Acute kidney injury: (4) Acute on chronic renal failure: (5) CHF (congestive heart failure): (6) Diabetes: (7) Chronic anemia: (8) Hypertension: (9) WHIT (obstructive sleep apnea): (10) HLD (hyperlipidemia): (11) Venous stasis dermatitis: Admission and Anticipated Discharge Date Admission Date: October 06, 2020 Subjective Pt states he is feeling better. No SOB. Feels his LE swelling is improving. Ongoing pain to L foot, but not worse. Tolerating PO. Pt denies fever, chest pain, abd pain, n/v/c/d. Review of Systems Review of Systems: Pertinent positives and negatives reviewed in HPI--all others negative Physical Exam Constitutional: WD/WN, vitals as above Eyes: normal visual thomas by confrontation and + anicteric sclerae Neck: normal visual inspection and trachea midline Respiratory: normal respiratory effort, lungs clear to auscultation Cardiovascular: Rate/Rhythm: regular rate and regular rhythm Extremities: + edema (b/l, appearance of skin suggests it has improved) Gastrointestinal (Abdomen): Inspection/Auscultation: abdomen not distended Percussion/Palpation: abdomen soft; abdomen nontender Musculoskeletal: Head/Neck/Chest: normocephalic and head atraumatic peripheral pulses intact Skin: no rashes, warm and dry Neurologic: awake; not confused Speech / Cognition: normal speech Psychiatric: A+Ox3, euthymic affect Results & Data Results & Data ([facility]) Vital Signs (Past 12 Hours) Vital Signs Temp Pulse Pulse Resp BP Pulse Ox 10/07/20 11:02 36.9 C 64 18 145/74 H 96 10/07/20 07:35 36.8 C 57 L 18 110/69 96 10/07/20 07:14 60 10/07/20 05:30 37.3 C 10/07/20 04:10 37.7 C H 10/07/20 03:12 37.9 C H 71 18 119/57 L 96 10/07/20 02:29 63 18 95 10/07/20 01:03 67 PG Care Time/CCT Total # of Minutes Spent Total Time Spent with Patient: Total time spent is greater than 50% in coordination of care (as documented) at patient's floor/unit and/or counseling patient: Coding Level of Care Code 25945 Subseq Hosp Care Lvl 3 Diagnoses Foot ulcer, left L97.529 Shortness of breath R06.02 Acute kidney injury N17.9 Acute on chronic renal failure N17.9; N18.9 Acute renal failure type: unspecified Chronic kidney disease stage: unspecified stage CHF (congestive heart failure) I50.33 Heart failure chronicity: acute on chronic Heart failure type: diastolic Diabetes E11.621; L97.509; Z79.4 Diabetes mellitus complication detail: with foot ulcer Diabetes mellitus complication status: with skin complications 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: with petroleum terminal plant operator use Diabetes mellitus type: type 2 Chronic anemia D64.9 Hypertension I10 Hypertension type: essential hypertension WHIT (obstructive sleep apnea) G47.33 HLD (hyperlipidemia) E78.5 Venous stasis dermatitis I87.2 (1) Diabetes Diabetes mellitus complication detail: with foot ulcer Diabetes mellitus complication status: with skin complications 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: with fdc use Diabetes mellitus type: type 2 Qualified Code(s): E11.621 - Type 2 diabetes mellitus with foot ulcer; L97.509 - Non- pressure chronic ulcer of other part of unspecified foot with unspecified severity; 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 (2) CHF (congestive heart failure) Heart failure chronicity: acute on chronic Heart failure type: diastolic Qualified Code(s): I50.33 - Acute on chronic diastolic (congestive) heart failure (3) Acute on chronic renal failure Acute renal failure type: unspecified Chronic kidney disease stage: unspecified stage Qualified Code(s): N17.9 - Acute kidney failure, unspecified; N18.9 - Chronic kidney disease, unspecified (4) Hypertension Hypertension type: essential hypertension Qualified Code(s): I10 - Essential (primary) hypertension
[2020-10-07 12:51] LABS: INR 1.3 (0.9-1.1); Prothrombin Time 13.5 Seconds (9.0-12.0)
[2020-10-07 13:05] LABS: BUN Creatinine Ratio 27.1 (10-20); Calcium 9.3 mg/dl (8.5-10.1); Creatinine Clr Calc Pharmacy 41.5 ml/min; Magnesium 2.9 mg/dl (1.8-2.4); Potassium 3.2 mmol/L (3.5-5.1)
[2020-10-07 13:06] LABS: Phosphorus 4.1 mg/dl (2.5-4.9)
[2020-10-07] MEDS ORDERED: POTASSIUM PHOS 3 MMOL/1 ML INFUSION IV STA (14:57)
[2020-10-07] MEDS ORDERED: POTASSIUM PHOSPHATE 15 MMOL in SODIUM CHLORIDE 0.9% 250 ML IV ONE (15:30)
[2020-10-07] MEDS: PIPERACILLIN/TAZOBACTAM 4.5 GM in DEXTROSE 5% 100 ML IV SCH ×2 (15:40→23:54)
--- NOTE | 2020-10-07 17:41 | Anesthesiology Consultation ---
Date of Service October 07, 2020 Assessment & Plan (1) Encounter for pre-operative examination: Chart Review Chart Review: Acceptable Risk for Surgery and Patient NOT seen in Pre Admission Testing COVID SCREEN 10/06/2020 WAS NEGATIVE. Per [place] cardiology note 08/21/2020 = patient with chronic lower extremity edema for past few years. Patient poor historian. Has been on multiple diuretics without success per patient patient with questionable heart failure. Had admission at [facility] in July for worsening anemia. Patient following with heart failure specialist. Cardio defers to heart failure specialist. Follow-up in 3 months I&D Left Foot 08/08/20= Done under GA with LMA #5 i-Gel Consults Requested none History Surgery Operation Date: 10/08/20 07:30 Proposed Procedures p Incision and Drainage Left Foot - Iván Bernardo DO Height/Weight Height: 5 ft 6 in Weight: 103.9 kg Allergies Allergy/AdvReac Type Severity Reaction Status Date / Time amitriptyline AdvReac Mild muscle Verified 10/06/20 19:06 twitching hydralazine AdvReac Mild Rash Verified 10/06/20 19:06 Medications Home Medications Medication Instructions Recorded Confirmed Last Taken atorvastatin 80 mg PO QPM 08/02/18 10/06/20 10/06/20 10:00 magnesium oxide 400 mg PO QPM 08/02/18 10/06/20 09/17/20 23:55 metoprolol succinate 150 mg PO QPM 08/02/18 10/06/20 10/05/20 omega 2-bry-qzs-fish oil [Fish Oil] 1 cap PO QPM 02/20/19 10/06/20 09/17/20 23:55 omeprazole 20 mg PO QPM #0 cap 08/14/19 10/06/20 09/17/20 23:55 cholecalciferol (vitamin D3) 25 2,000 units PO QPM tab 11/19/19 10/06/2010/05 mcg (1,000 unit) chewable tablet cyanocobalamin (vitamin B-12) 1,000 mcg PO QPM tab 11/19/19 10/06/20 09/17/20 23:55 1,000 mcg tablet gabapentin 600 mg PO TID 12/06/19 10/06/20 10/06/20 10:00 polyethylene glycol 3350 17 17 gm PO BID PRN #510 gm 12/23/19 10/06/20 Unknown gram/dose oral powder aspirin 81 mg tablet,delayed 81 mg PO BID tab 01/16/20 10/06/20 10/06/20 10:00 release tramadol 50 mg PO Q6H PRN 02/21/20 10/06/20 09/16/20 00:00 Probiotic 3,000 mmu cells PO QAM 03/26/20 10/06/20 09/17/20 09:00 fluticasone propionate [Flonase 1 spray INTRANASAL BID 05/05/20 10/06/20 10/06/20 10:00 Allergy Relief] Santyl 1 applic EXT DAILY 28 Days #30 g 08/14/20 10/06/20 09/16/20 23:00 bumetanide 1 mg tablet 3 mg PO BID 30 Days #180 tab 09/07/20 10/06/20 10/06/20 10:00 Humulin R U-500 (Conc) Insulin 25 unit SUBCUT TIDWMEAL 09/18/20 10/06/20 09/17/20 19:00 insulin glargine 50 unit SUBCUT ONCE PM 09/18/20 10/06/20 09/17/20 23:55 oxycodone-acetaminophen [Percocet] 1 tab PO Q4H PRN #20 tab 09/18/20 10/06/20 Unknown doxazosin 4 mg tablet 4 mg PO QPM 10/01/20 10/06/20 10/05/20 empagliflozin [Jardiance] 10 mg PO DAILY 10/06/20 10/06/20 Unknown metformin 500 mg PO BID 10/06/20 10/06/20 10/06/20 10:00 Active Medications Generic Name Dose Route Start Last Admin Trade Name Freq PRN Reason Stop Dose Admin Acetaminophen 650 mg 10/06/20 19:35 10/07/20 03:24 Acetaminophen 325 Mg Tab PO 11/05/20 19:34 650 mg Q4H PRN Administration pain/fever Aspirin 81 mg 10/06/20 21:13 10/07/20 08:42 Aspirin 81 Mg Ectab PO 11/05/20 21:12 81 mg BID LELIA Administration Atorvastatin Calcium 80 mg 10/06/20 21:13 10/06/20 21:55 Atorvastatin 40 Mg Tab PO 11/05/20 21:12 80 mg QPM LELIA Administration Cyanocobalamin 1,000 mcg 10/06/20 21:15 10/06/20 21:54 Cyanocobalamin 500 Mcg Tablet (Vitamin B-12) PO 11/05/20 21:14 1,000 mcg QPM LELIA Administration Doxazosin Mesylate 4 mg 10/06/20 21:13 10/06/20 21:54 Doxazosin Mesylate 4 Mg Tab PO 11/05/20 21:12 4 mg QPM LELIA Administration Fluticasone Propionate 1 sprays 10/06/20 21:13 10/07/20 08:42 Fluticasone Propionate Na Spr 16 Gm Btl NA 11/05/20 21:12 1 sprays BID LELIA Administration Gabapentin 600 mg 10/06/20 21:13 10/07/20 14:05 Gabapentin 600 Mg Tab PO 11/05/20 21:12 600 mg TID LELIA Administration Heparin Sodium (Porcine) 5,000 units 10/06/20 22:00 10/07/20 14:05 Heparin Sod 5,000 Unit/0.5 Ml Vial SQ 11/05/20 21:59 5,000 units Q8 LELIA Administration Piperacillin Sod/Tazobactam 120 mls @ 30 mls/hr 10/07/20 16:00 10/07/20 15:40 Sod 4.5 gm/ Dextrose IV 10/14/20 15:59 30 mls/hr Q8H LELIA Administration Protocol Potassium Phosphate 15 mmol/ 255 mls @ 102 mls/hr 10/07/20 15:30 10/07/20 15:40 Sodium Chloride IV 10/07/20 17:59 102 mls/hr ONE ONE Administration Insulin Aspart 0 units 10/06/20 21:13 10/07/20 16:55 Insulin Aspart 100 Units/Ml 3 Ml Pen SC 11/05/20 21:12 24 units ACHS LELIA Administration Magnesium Oxide 400 mg 10/06/20 21:15 10/06/20 21:55 Magnesium Oxide 400 Mg Tab PO 11/05/20 21:14 400 mg QPM LELIA Administration Metoprolol Succinate 150 mg 10/06/20 21:13 10/06/20 21:55 Metoprolol Succ 50mg Ext Rel Tab PO 11/05/20 21:12 150 mg QPM LELIA Administration Pantoprazole Sodium 40 mg 10/06/20 21:13 10/06/20 21:55 Pantoprazole 40 Mg Tab PO 11/05/20 21:12 40 mg HS LELIA Administration Vitamin D 2,000 units 10/06/20 21:15 10/06/20 21:54 Cholecalciferol 1,000 Units 25 Mcg Tab PO 11/05/20 21:14 2,000 units QPM LELIA Administration Past Medical History Medical History Chronic anemia Chronic back pain Chronic kidney disease Stage IIIB/4 CKD, baseline creatinine variable from 1.8-3.5 Wide fluctuation based upon volume status and diuretic use. Following closely with nephrology. Diabetes Diastolic CHF Recently hypervolemic - seen by Heart Failure Clinic 09/15/20. Dyslipidemia Dyspnea WITH EXERTION GERD (gastroesophageal reflux disease) Hyperkalemia Patient has been seen in ED twice last year for issues r/t this; some noncompliance issues with medications per record review; patient is following closely with nephrology. Hypertension Hypertension Hypoxia Morbid obesity Sleep apnea cpap Temporomandibular joint disorder CLICKS ON OCC NO LOCKING Patient received potassium replacement 10/07/2020 as he was found to be hypokalemic. Left Foot Ulcer - recent left 5th metatarsal osteomyelitis s/p abx x30 days and I&D on 09/18 - in the ED, left ulceration with overlying green film and malodorous green discharge with surrounding erythema - XR left foot shows bony destruction/fragmentation at base of 5th metatarsal suspicious for osteomyelitis - received Rocephin 2g IV in ED - blood/wound cx ordered - will start Zosyn IV for Pseudomonas coverage - orthopedic surgery consulted (Dr. Bernardo - performed I&D on 09/18) Dr. Bernardo planning for OR on 10/08 for I&D Shortness of Breath - reports h/o recent LYMAN x3 days - hemodynamically stable in the ED - satting well on RA, not hypervolemic on exam - WBC mildly elevated at 12.07, CXR without signs of fluid overload or PNA, LLE venous doppler without sign of DVT - unlikely to be 2/2 CHF exacerbation or PE, given no hypervolemia and no DVT - suspect 2/2 worsening foot cellulitis/osteomyelitis, cannot r/o bacteremia at this time Past Family History Family History Father Diabetes Mother Diabetes Other Coronary heart disease Hypertension Denies family history of Crohn's disease Kidney disease Colorectal cancer Ulcerative colitis Past Surgical History Surgical History History of incision and drainage Left foot (08/08/20) History of open reduction and internal fixation (ORIF) procedure Left ankle Bimalleolar Fracture (11/2019) History of placement of ear tubes right ear History of tonsillectomy and adenoidectomy Hx of cataract surgery right and left Hx of colonoscopy [place] teeth extracted Social History Smoking Status: Former smoker tobacco type: cigarettes Do You Dip or Chew Tobacco: No Hx Alcohol Use: No Alcohol type: hard liquor alcohol intake frequency: holidays/special occasions only Hx Substance Use: No substance use type: does not use Physical Exam Vital Signs Last Vital Signs Temp 37.3 C 10/07/20 14:50 Pulse 62 10/07/20 16:00 Resp 20 10/07/20 14:50 BP 145/74 H 10/07/20 14:50 Pulse Ox 94 10/07/20 14:50 Testing Laboratory Results 10/07/20 12:19 10/07/20 12:19 PT 13.5 Seconds (9.0-12.0) H 10/07/20 12:19 INR 1.3 (0.9-1.1) H 10/07/20 12:19 APTT 36.2 Seconds (21.0-31.0) H 10/06/20 16:36 10/06/20 18:58 Aerobic Blood Culture - Preliminary Blood Gram positive cocci clusters 10/06/20 21:40 Gram Stain - Final Foot Wound Culture - Preliminary Gram negative bacilli 10/07/20 10/07/20 10/07/20 16:19 11: 08:32 POC Glucose 117 H 142 H 115 H Electrocardiogram Date: 10/06/20 Test Reason : Blood Pressure : / mmHG Vent. Rate : 063 BPM Atrial Rate : 063 BPM P-R Int : 180 ms QRS Dur : 096 ms QT Int : 424 ms P-R-T Axes : 035 -24 021 degrees QTc Int : 433 ms Normal sinus rhythm Incomplete right bundle branch block Borderline ECG When compared with ECG of 22-SEP-2020 22:28, QRS axis Shifted right Nonspecific T wave abnormality now evident in Inferior leads Confirmed by Andre Almanzar ([id number]) on 10/07/2020 5:13:04 AM Chest X-Ray Date: 10/06/20 XR chest 1V portable HISTORY: Atypical Chest Pain COMPARISON: Chest 09/18/2020. FINDINGS: The lungs are clear. The cardiac silhouette remains top normal in size. No pleural effusions. No pneumothorax. IMPRESSION: No acute process. Other Testing Electrocardiogram Date: 08/04/20 Findings: + NSR @ (89) Left axis deviation. Chest X-Ray Date: 08/04/20 Cardiomegaly and pulmonary vascular congestion with interstitial coarsening suggestive of pulmonary edema. Echocardiogram Date: 05/22/20 EF: 55-60% LV Function: normal Valvular Disease: + no significant valvular disease Diastolic filling pattern is within normal limits. (Echo report not availablefindings from cardio note scanned under family practice tab dated 08/28/2020 in [facility])
[2020-10-07] MEDS: DOXAZosin MESYLATE 4 MG TAB PO SCH (20:17)
[2020-10-07] MEDS: ATORVASTATIN 40 MG TAB PO SCH (20:17)
[2020-10-07] MEDS: MAGNESIUM OXIDE 400 MG TAB PO SCH (20:17)
[2020-10-07] MEDS: CYANOCOBALAMIN 500 MCG TABLET (VITAMIN B-12) PO SCH (20:17)
[2020-10-07] MEDS: METOPROLOL SUCC 50MG EXT REL TAB PO SCH (20:17)
[2020-10-07] MEDS: PANTOprazole 40 MG TAB PO SCH (20:17)
[2020-10-07] MEDS: CHOLECALCIFEROL 1,000 UNITS 25 MCG TAB PO SCH (20:18)
[2020-10-08] MEDS: HEPARIN SOD 5,000 UNIT/0.5 ML VIAL SQ SCH ×4 (05:12→20:40)
[2020-10-08 06:30] LABS: BUN Creatinine Ratio 25.8 (10-20); Creatinine Clr Calc Pharmacy 39.5 ml/min; Est GFR (Non-African American) 29.3; Magnesium 2.9 mg/dl (1.8-2.4); Phosphorus 4.2 mg/dl (2.5-4.9); Potassium 3.6 mmol/L (3.5-5.1)
[2020-10-08] MEDS ORDERED: BUPIVACAINE 0.5 % 5 MG/1 ML MPF 30ML VIAL ONE (07:21)
[2020-10-08] MEDS ORDERED: BACITRACIN INJ 50,000 UNIT VIAL ONE (07:21)
--- NOTE | 2020-10-08 07:39 | History & Physical Bridge Note ---
Date of Service October 08, 2020 History & Physical Bridge Note I have examined the patient, reviewed the History & Physical and in the interval since the performance of the History & Physical I have noted the following changes of clinical significance: no changes noted
[2020-10-08] MEDS ORDERED: LIDOCAINE HCL 2% 2 ML VIAL/AMP(20MG/ML) INFIL ONE (07:57)
[2020-10-08] MEDS ORDERED: PROPOFOL IV EMULSION 10 MG/ML 20 ML VIAL IV ONE (07:57)
[2020-10-08] MEDS ORDERED: fentaNYL citrate 100 MCG/2 ML VIAL ONE (07:58)
[2020-10-08] MEDS ORDERED: MIDAZOLAM HCL 1 MG/ML 2ML VIAL ONE (07:58)
[2020-10-08] MEDS ORDERED: GENTAMICIN SULFATE 40 MG/ML 2 ML VIAL ONE (08:47)
[2020-10-08] MEDS ORDERED: VANCOMYCIN HCL 1000MG/20ML VIAL ONE (08:47)
[2020-10-08] MEDS ORDERED: ONDANSETRON INJ 2 MG/ML 2 ML VIAL ONE (08:57)
[2020-10-08] MEDS ORDERED: INSULIN GLARGINE SOLOSTAR 100 UNITS/ML 3 ML PEN SC SCH ×2 (09:15→16:30)
[2020-10-08] MEDS ORDERED: ePHEDrine sulfate 50 MG/ML AMP IV PRN (10:06)
[2020-10-08] MEDS ORDERED: ONDANSETRON INJ 2 MG/ML 2 ML VIAL IV PRN ×2 (10:06→10:51)
[2020-10-08] MEDS ORDERED: fentaNYL citrate 100 MCG/2 ML VIAL IV PRN (10:06)
[2020-10-08] MEDS ORDERED: ATROPINE SULFATE 0.1 MG/ML 10ML SYR IV PRN (10:06)
--- NOTE | 2020-10-08 10:17 | Post Operative Brief Note ---
Immediate Post Op Note v1 Date of Surgery October 08, 2020 Pre & Post Diagnosis Operation Date: 10/08/20 07:30 Pre-Op Diagnosis: Acute necrotic foot Ulcer plantar lateral base fifth metatarsal left foot 4cm x 3.5cm x 1.7cm, osteomyelitis base fifth metatarsal, avulsion fracture base of fifth metatarsal, diabetic neuropathy, peripheral vascular disease Post-Op Diagnosis: Acute necrotic foot Ulcer plantar lateral base fifth metatarsal left foot 4cm x 3.5cm x 1.7cm, osteomyelitis base fifth metatarsal, avulsion fracture base of fifth metatarsal, diabetic neuropathy, peripheral vascular disease I identified the patient and participated in the time-out.: Yes Procedure Operation Date: 10/08/20 07:30 Actual Procedures p Irrigation and Debridement Left Necrotic Foot Ulcer 4cm x 3.5cm x 1.7cm, irrigation and debridement Skin, Subcutaneous tissue, Fascia, Tendon, and Bone, Resection of Osteomyelitis base fifth metatarsal, resection avulsion fracture base fifth metatarsal and Implantation of 5 cc Stimulan antibiotic beads(Left) - Ivná Bernardo DO Surgeon Iván Bernardo DO Coke Handling Supervisor None Estimated Blood Loss 15 Findings Consistent with Post-Op Diagnosis Specimens Base fifth metatarsal bone fragment, aerobic anaerobic Gram stain for micro Anesthesia Type General Regional Complications none Disposition Accompanied Patient To Recovery: Yes Disposition: Recovery Room
[2020-10-08] MEDS ORDERED: MEROPENEM CONSULT ACITVE PRN (10:49)
[2020-10-08] MEDS ORDERED: NALOXONE HCL 0.4 MG/1 ML VIAL/CARP IV PRN (10:51)
[2020-10-08] MEDS ORDERED: MAGNESIUM HYDROXIDE SUSP 30 ML UDC PO PRN (10:51)
[2020-10-08] MEDS ORDERED: bisacodyL 10 MG SUPP PR PRN (10:51)
[2020-10-08] MEDS ORDERED: METOCLOPRAMIDE HCL INJ 5 MG/ML 2 ML VIAL IV PRN (10:51)
[2020-10-08] MEDS ORDERED: SODIUM CHLORIDE 0.9% 1000ML 1,000 ML IV SCH (10:51)
[2020-10-08] MEDS: INSULIN ASPART 100 UNITS/ML 3 ML PEN SC SCH ×4 (11:27→20:18)
--- NOTE | 2020-10-08 11:34 | Operative Report (OR) ---
DATE OF OPERATION: 10/08/2020 PREOPERATIVE DIAGNOSES: Acute necrotic foot ulcer, plantar lateral base of fifth metatarsal, left foot measuring 4 x 3.5 x 1.7 cm deep, osteomyelitis base of the fifth metatarsal, avulsion fracture base of fifth metatarsal, diabetic neuropathy, peripheral vascular disease. POSTOPERATIVE DIAGNOSES: Acute necrotic foot ulcer, plantar lateral base of fifth metatarsal, left foot measuring 4 x 3.5 x 1.7 cm deep, osteomyelitis base of the fifth metatarsal, avulsion fracture base of fifth metatarsal, diabetic neuropathy, peripheral vascular disease. PROCEDURES: 1. Irrigation and debridement, left foot necrotic foot ulcer 4 x 3.5 x 1.7 cm deep. 2. Irrigation and debridement including skin, subcutaneous tissue, fascia, peroneus brevis tendon and base of fifth metatarsal bone. 3. Resection of osteomyelitis base of fifth metatarsal. 4. Resection avulsion fracture base of fifth metatarsal. 5. Implantation of a 5 mL Stimulan antibiotic beads. SURGEON: Iván Bernardo DO. DISK OPERATOR: None. ANESTHESIA: General, regional. SPECIMENS: 1. Aerobic, anaerobic, Gram stain ulcer and bone base of fifth metatarsal, left foot. 2. Bone for pathological specimen and avulsion fracture base of fifth metatarsal. DRAINS: None. COMPLICATIONS: None. BLOOD LOSS: 15 mL PERTINENT HISTORY: This is a 55-year-old gentleman well known to the orthopedic service who had previous irrigation and debridement of ulcer, plantar lateral aspect of his left foot. He was healing and he had a previous grafting procedure performed. The patient was then ambulating on the foot and then developed an acute ulceration, was seen in clinic and he was then admitted to the hospitalist service due to sepsis, further studies were performed noting likely osteomyelitis with avulsion fracture base of fifth metatarsal. The patient was then scheduled for surgery as indicated. All potential risks, benefits, complications, alternatives, rehab potential for incomplete relief of symptoms, need for further surgery, DVT, PE, , persistent pain, swelling, scarring, weakness, neurovascular injury, wound complications, need for further surgery or amputation was discussed with the patient. The patient decided to proceed with the procedure as indicated. DESCRIPTION OF PROCEDURE: The patient was taken to the operative suite, placed supine on the operating room table. After review of consent and identification of proper operative site, the patient was anesthetized, LMA was placed. There was no pneumatic tourniquet used during the case. Left lower extremity was then sterilely prepped and draped in usual fashion, elevated and partially exsanguinated from the heel extending proximally and then an Esmarch tourniquet was applied over sterile surgical towel at the level of the ankle. Next, a partial ankle block was then performed with 30 mL of 0.5% Marcaine plain and then, after surgical timeout was performed the 15 blade scalpel was then used to debride the necrotic ulcer measuring 4 x 3.5 x 1.7 cm deep. All devitalized tissue surrounding the ulcer was then sharply excised and then further debrided with a blade scalpel including skin, subcutaneous tissue, fascia, tendon including the peroneus brevis tendon and fifth metatarsal bone was then sharply debrided with a 15 blade scalpel. This was excisional including all necrotic tissue, which was devitalized. Next, the aerobic, anaerobic, Gram stain specimen was then sampled from the fifth metatarsal bone, was also noted to be an avulsion fracture at the base of fifth metatarsal, which was sharply excised. There is another local osteomyelitic bone with gross softening, was then rongeured free from the base of fifth metatarsal leaving a more viable bleeding bone present. Next, after all debris and necrotic tissue and bone was then sharply excised under direct visualization, the pulsatile lavage with 3 liters of sterile saline with bacitracin was then used to lavage the ulceration of the bone and all surrounding tissue until clear. Once this was completed, top gloves and top sheet were changed and then a new scalpel was then used to make a small elliptical resection of tissue proximally and distal aspect of the rounded ulcer to make it more ellipsoid. A 2 mL of Stimulan beads were then mixed with gentamicin and vancomycin. This was then implanted in the small bead size 5 mL total, into the site of the ulceration and deep infection. This was then covered with a Acticoat Flex which was then stapled in place and the ulcer size was then diminished using a 3-0 nylon suture to diminish the space and encourage gentle approximation of the ulceration to reduce his volume by approximately 40-50%. Next, a sterile compressive dressing was applied consisting of sterile 4 x 4s, ABD pads x2, cast padding and Balaji wrap. The tourniquet was released. The patient was awakened and taken to recovery in stable condition. I attest to the content of the Intraoperative Record and any orders documented therein. Any exception s are noted below.
--- NOTE | 2020-10-08 11:43 | Hospitalist Progress Note ---
Date of Service October 08, 2020 Assessment & Plan (1) Foot ulcer, left: Reid Swartz is a 55 yo male with h/o 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 Bernardo) who presented to [facility] ED on 10/06/2020 for dyspnea on exertion for 3 days. Left Foot Ulcer - recent left 5th metatarsal osteomyelitis s/p abx x30 days and I&D on 09/18 - in the ED, left ulceration with overlying green film and malodorous green discharge with surrounding erythema - XR left foot shows bony destruction/fragmentation at base of 5th metatarsal suspicious for osteomyelitis - will start Zosyn IV for Pseudomonas coverage - orthopedic surgery consulted (Dr. Bernardo - performed I&D on 09/18) s/p OR on 10/08 for I&D - blood cx neg on prelim wound cx prelim noted for atypical bacteria - received Rocephin 2g IV in ED, this was continued during admission, however pharmacy recs changed to meropenem given wound cx--changed on 10/08 Shortness of Breath - reports h/o recent LYMAN x3 days - hemodynamically stable in the ED - satting well on RA, not hypervolemic on exam - WBC mildly elevated at 12.07, CXR without signs of fluid overload or PNA, LLE venous doppler without sign of DVT - unlikely to be 2/2 CHF exacerbation or PE, given no hypervolemia and no DVT - suspect 2/2 worsening foot cellulitis/osteomyelitis, cannot r/o bacteremia at this time - follow blood/wound cx as above D/W ALLI Elizalde at CHF clinic, who is familiar with pt. She does not feel pt has CHF given BNP is always WNL and had suggested pt be seen in lymphedema clinic COSMO on CKD - Cr 2.25, Ratio 28.6 - Cr down from 2.68 on 10/02 (stopped Metolazone on 10/01) - baseline Cr 1.5-1.8 - suspect pre-renal injury 2/2 excessive diuresis, improving since off of Metolazone - hold home Bumex and continue to hold Metolazone - follow BMP daily - would consider light IVFs if lack of improvement tomorrow, but cautious use 2/2 fluid overload/CHF Contraction Alkalosis - Cl 86, HCO3 33, COSMO as above - 2/2 excessive diuresis - hold diuretics as mentioned above CHF - intermittent LE edema x several weeks that recently improved - last TTE 03/02/2020: EF 60-65%, normal LV systolic function and normal diastolic function, significant MR - continue home Toprol 150mg PO QHS, hold Bumex/Metolazone as above - continue Aspirin 81 mg PO BID - daily weights, strict I/Os, heart-healthy/low-sodium diet T2DM - last A1c 6.9 on 09/15/2020 - basal insulin + SSI WHIT - CPAP QHS HTN - continue home Doxazosin 4 mg PO QHS and Toprol as mentioned above HLD - continue Lipitor 80 mg PO QHS GERD - Protonix 20 mg PO QHS per hospital formulary FEN/GI: DM2, heart-healthy/salt-restricted DVT Prophylaxis: Heparin 5000 units SQ Q8H Code Status: Full code Disposition: Med/surg with tele (2) Shortness of breath: (3) Acute kidney injury: (4) Acute on chronic renal failure: (5) CHF (congestive heart failure): (6) Diabetes: (7) Chronic anemia: (8) Hypertension: (9) WHIT (obstructive sleep apnea): (10) HLD (hyperlipidemia): (11) Venous stasis dermatitis: Admission and Anticipated Discharge Date Admission Date: October 06, 2020 Subjective Pt states he is doing fine post-op. No LE pain. Has not eaten yet, but no GI issues. Pt denies fever, SOB, chest pain, abd pain, n/v/c/d, LE swelling. Review of Systems Review of Systems: Pertinent positives and negatives reviewed in HPI--all others negative Physical Exam Constitutional: WD/WN, vitals as above Eyes: normal visual thomas by confrontation and + anicteric sclerae Neck: normal visual inspection and trachea midline Respiratory: normal respiratory effort, lungs clear to auscultation Cardiovascular: Rate/Rhythm: regular rate and regular rhythm Extremities: + edema (trace, appearance of skin suggests it has improved) Gastrointestinal (Abdomen): Inspection/Auscultation: abdomen not distended Percussion/Palpation: abdomen soft; abdomen nontender Musculoskeletal: Head/Neck/Chest: normocephalic and head atraumatic Skin: no rashes, warm and dry Neurologic: awake; not confused Speech / Cognition: normal speech Psychiatric: Orientation: oriented x 3 and cooperative Affect: + depressed affect Results & Data Results & Data ([facility]) Vital Signs (Past 12 Hours) Vital Signs Temp Pulse Pulse Resp BP Pulse Ox 10/08/20 11:01 37.0 C 55 L 20 144/79 H 94 10/08/20 10:40 54 L 16 143/69 H 94 10/08/20 10:30 37.2 C 54 L 17 139/66 94 10/08/20 10:20 54 L 14 138/62 97 10/08/20 10:10 54 L 15 167/74 H 100 10/08/20 10:01 37 C 55 L 16 154/75 H 100 10/08/20 07:34 62 10/08/20 07:16 37.0 C 61 18 137/73 96 10/08/20 03:19 37.0 C 64 18 135/65 95 10/08/20 00:43 69 10/07/20 23:43 36.8 C 71 20 144/68 H 100 PG Care Time/CCT Total # of Minutes Spent Total Time Spent with Patient: Total time spent is greater than 50% in coordination of care (as documented) at patient's floor/unit and/or counseling patient: Coding Level of Care Code 22883 Subseq Hosp Care Lvl 3 Diagnoses Foot ulcer, left L97.529 Shortness of breath R06.02 Acute kidney injury N17.9 Acute on chronic renal failure N17.9; N18.9 Acute renal failure type: unspecified Chronic kidney disease stage: unspecified stage CHF (congestive heart failure) I50.33 Heart failure type: diastolic Heart failure chronicity: acute on chronic Diabetes E11.621; L97.509; Z79.4 Diabetes mellitus type: type 2 Diabetes mellitus usp insulin use: with intermediate manager use Diabetes mellitus complication status: with skin complications Diabetes mellitus complication detail: with foot ulcer Chronic anemia D64.9 Hypertension I10 Hypertension type: essential hypertension WHIT (obstructive sleep apnea) G47.33 HLD (hyperlipidemia) E78.5 Venous stasis dermatitis I87.2 (1) Acute on chronic renal failure Acute renal failure type: unspecified Chronic kidney disease stage: unspecified stage Qualified Code(s): N17.9 - Acute kidney failure, unspecified; N18.9 - Chronic kidney disease, unspecified (2) CHF (congestive heart failure) Heart failure type: diastolic Heart failure chronicity: acute on chronic Qualified Code(s): I50.33 - Acute on chronic diastolic (congestive) heart failure (3) Diabetes Diabetes mellitus type: type 2 Diabetes mellitus usp insulin use: with intermediate manager use Diabetes mellitus complication status: with skin complications Diabetes mellitus complication detail: with foot ulcer Qualified Code(s): E11.621 - Type 2 diabetes mellitus with foot ulcer; L97.509 - Non-pressure chronic ulcer of other part of unspecified foot with unspecified severity; Z79.4 - half-way (current) use of insulin (4) Hypertension Hypertension type: essential hypertension Qualified Code(s): I10 - Essential (primary) hypertension
[2020-10-08] MEDS: DOCUSATE SODIUM 100 MG CAP PO SCH ×2 (13:43→20:23)
[2020-10-08] MEDS: ASPIRIN 81 MG ECTAB PO SCH ×2 (13:43→20:22)
[2020-10-08] MEDS: MULTIVITAMIN TAB PO SCH (13:44)
[2020-10-08] MEDS: FLUTICASONE PROPIONATE NA SPR 16 GM BTL SCH ×2 (13:44→20:17)
[2020-10-08] MEDS: MEROPENEM 500 MG in SYRINGE 0 ML IV SCH ×2 (13:45→20:16)
[2020-10-08] MEDS: GABAPENTIN 600 MG TAB PO SCH ×3 (13:45→20:22)
--- NOTE | 2020-10-08 13:59 | Pharmacy Report ---
Pharmacy Glycemic Short Note 2 - Date of Service October 08, 2020 - Glycemic Short BSG Results (Last 24 hours): 10/07/20 10/07/20 10/08/20 16:19 20:11 05:42 Glucose 162 H POC Glucose 117 H 77 10/08/20 10/08/20 10/08/20 07:18 10:08 11:47 Glucose POC Glucose 173 H 178 H 190 H OUTPATIENT ANTIDIABETIC REGIMEN: * Empagliflozin (Jardiance) 10mg PO daily * Glargine 50 units SQ HS * U500- Regular insulin 25 units SQ with meals (this needs to be confirmed with patient) * A1c = 6.9% on 09/15/20 ASSESSMENT: 10/08: * Pt NPO this AM for I&D * Lantus not given prior to procedure. Pt typically takes glargine once daily but we have been dosing BID in-house. Will change to once daily dosing in the evening to ease transition to outpatient dosing since Lantus not given this AM. * Pt has received 144 units of insulin over the past 24hrs with good control. * Regimen is split ~50:50% basal:prandial which is the preferred distribution to prevent hypo when PO intake changes * No changes needed to regimen dosing 10/07: * 55yo T2DM male known to pharmacy from previous admissions/glycemic consults; most recently last month. * Pt typically uses ~ 200 units of insulin while admitted split 50%:50% between basal and prandial insulin * Tight glycemic control crucial for wound healing * Will utilize SC basal/bolus with Lantus and Novolog * Patient received 71 units of insulin overnight (50 units of Lantus and 21 units of Novolog) * Patient was originally NPO after midnight for possible procedure today, but moved to tomorrow (left foot I&D) * Lantus 40 units (20% dose reduction) given this morning, will utilize Lantus scale this evening * Will use previous admission data to guide initial insulin dosing PLAN FOR INPATIENT GLYCEMIC CONTROL: * Hold outpatient oral diabetes medications * Basal insulin * Change Lantus to once daily dosing in the evening. Give Lantus 80 units SQ HS. First dose with dinner today to prevent lapse in basal insulin coverage * Bolus insulin * NovoLog per scale ACHS or Q6hrs while NPO * Goal Range: Low 110 mg/dL - High 140 mg/dL * Correction Factor: 10 mg/dL/unit * Nutritional / Prandial insulin per carb ratio of 1 unit per 3 grams CHO consumed
--- NOTE | 2020-10-08 15:23 | Anesthesiology Progress Note ---
Date of Service October 08, 2020 Anesthesia Post Procedure Vital Signs Vital Signs: Temp Pulse Pulse Pulse Resp BP BP 10/08/20 15:19 38 C H 71 20 145/69 H 10/08/20 12:30 36.8 C 58 L 20 126/76 10/08/20 11:54 55 L 10/08/20 11:30 36.8 C 60 18 138/78 10/08/20 11:01 37.0 C 55 L 20 144/79 H 10/08/20 10:40 54 L 16 143/69 H 10/08/20 10:30 37.2 C 54 L 17 139/66 10/08/20 10:20 54 L 14 138/62 10/08/20 10:10 54 L 15 167/74 H 10/08/20 10:01 37 C 55 L 16 154/75 H 10/08/20 07:34 62 10/08/20 07:16 37.0 C 61 18 137/73 10/08/20 03:19 37.0 C 64 18 135/65 10/08/20 00:43 69 10/07/20 23:43 36.8 C 71 20 144/68 H 10/07/20 23:16 63 16 10/07/20 19:37 36.9 C 70 18 134/67 10/07/20 16:00 62 Pulse Ox 10/08/20 15:19 93 10/08/20 12:30 94 10/08/20 11:54 10/08/20 11:30 94 10/08/20 11:01 94 10/08/20 10:40 94 10/08/20 10:30 94 10/08/20 10:20 97 10/08/20 10:10 100 10/08/20 10:01 100 10/08/20 07:34 10/08/20 07:16 96 10/08/20 03:19 95 10/08/20 00:43 10/07/20 23:43 100 10/07/20 23:16 96 10/07/20 19:37 96 10/07/20 16:00 Transfer of Care Handoff Completed per policy Notes Mental Status: alert / awake / arousable and participated in evaluation Patient Amnestic to Procedure: Yes Nausea / Vomiting: adequately controlled Pain: adequately controlled Airway Patency, RR, SpO2: stable & adequate BP & HR: stable & adequate Hydration State: stable & adequate Anesthetic Complications: no major complications apparent and Pt Satisfied with anesthetic care
[2020-10-08] MEDS: PIPERACILLIN/TAZOBACTAM 4.5 GM in DEXTROSE 5% 100 ML IV SCH (19:04)
[2020-10-08] MEDS: ACETAMINOPHEN 325 MG TAB PO PRN (20:16)
[2020-10-08] MEDS: METOPROLOL SUCC 50MG EXT REL TAB PO SCH (20:20)
[2020-10-08] MEDS: PANTOprazole 40 MG TAB PO SCH (20:21)
[2020-10-08] MEDS: MAGNESIUM OXIDE 400 MG TAB PO SCH (20:21)
[2020-10-08] MEDS: CYANOCOBALAMIN 500 MCG TABLET (VITAMIN B-12) PO SCH (20:21)
[2020-10-08] MEDS: CHOLECALCIFEROL 1,000 UNITS 25 MCG TAB PO SCH (20:22)
[2020-10-08] MEDS: DOXAZosin MESYLATE 4 MG TAB PO SCH (20:22)
[2020-10-08] MEDS: ATORVASTATIN 40 MG TAB PO SCH (20:22)
[2020-10-08] MEDS: SENNA 8.6 MG TAB PO SCH (20:23)
[2020-10-09] MEDS: MEROPENEM 500 MG in SYRINGE 0 ML IV SCH (04:31)
[2020-10-09] MEDS: HEPARIN SOD 5,000 UNIT/0.5 ML VIAL SQ SCH ×3 (06:08→21:12)
--- NOTE | 2020-10-09 07:11 | Orthopedic Progress Note ---
Date of Service October 09, 2020 Assessment & Plan (1) Foot ulcer, left: POD#1 1. Irrigation and debridement, left foot necrotic foot ulcer 4 x 3.5 x 1.7 cm deep. 2. Irrigation and debridement including skin, subcutaneous tissue, fascia, peroneus brevis tendon and base of fifth metatarsal bone. 3. Resection of osteomyelitis base of fifth metatarsal. 4. Resection avulsion fracture base of fifth metatarsal. 5. Implantation of a 5 mL Stimulan antibiotic beads. -Will plan on dressing change tomorrow to left foot. Continue IV antibiotics per primary team, patient currently on Meropenem. OR cultures are pending, gram stain with gram positive cocci. Wound cultures from 10/06 growing staph species and Enterobacter cloacae. DVT prophylaxis per primary team. Admission and Anticipated Discharge Date Admission Date: October 06, 2020 Subjective Patient is POD#1 left foot I&D. Sleeping on arrival, is arousable. No complaints of pain. Denies any other complaints. No chest pain, sob, dizziness, fever or chills Review of Systems Review of Systems: All systems reviewed & are unremarkable except as noted in HPI & below Physical Exam Physical Exam: Left foot dressing is c/d/i. Toes are mobile. No calf tenderness. distal n/v status intact, decreased sensation at baseline. Constitutional: well developed and well nourished; no acute distress Results & Data ([facility]) Vital Signs (Past 12 Hours) Vital Signs Temp Pulse Pulse Resp BP BP Pulse Ox 10/09/20 03:14 37.2 C 54 L 18 111/68 99 10/09/20 02:30 64 18 93 10/09/20 01:19 65 10/09/20 00:18 58 L 18 95 10/08/20 23:51 37.3 C 58 L 18 126/70 91 10/08/20 19:30 38 C H 72 20 161/70 H 94 Laboratory Results Name: BING REYNOLDS Acct: [id number] Status: ADM IN : 1965 [facility] Date: 10/06/20 Age: 55 Sex: M Dis Date: Loc: [address] Spec: [id number] Collected: 10/08/20 Received: 10/08/[address]: Iván BernardoDJatinderO. Copy To: Marbella Gomez PA-C Abelev, Daniel N., MD Source: Foot,Left OV Order: Ordered: Aer/Bhavna Cult/Sm Comments: Comment Bone Left Base of 5th Metatarsal Procedure Result Verified Site Gram Stain Final 10/08/20 Gram Stain Result Moderate Gram Positive Cocci Few WBCs Seen Aero/Bhavna Cult PENDING Spec: [id number] Collected: 10/06/20 Received: 10/06/[address]: Jus Sterling MD Copy To: Marbella Gomez PA-C Source: Foot OV Order: Ordered: Surf Wnd Cul/Sm Procedure Result Verified Site Gram Stain Final 10/07/20 Gram Stain Result Rare WBCs Seen Few Gram Positive Cocci Surface Wound Culture Preliminary 10/08/20 Organism 1 Enterobacter cloacae Quantity Moderate Sens Sensitivities to Follow Organism 2 Staphylococcus species Quantity Few Sens Sensitivities to Follow Organism 3 Staphylococcus species#2 Quantity Moderate Sens Sensitivities to Follow E cloacae RX M.I.C. --- --------- Amikacin S <=16 Cefepime S 8 Cefotaxime R >32 Ceftriaxone R >32 Ciprofloxacin S <=1 Ertapenem S 2 Gentamicin S <=4 Levofloxacin S <=2 Meropenem S <=1 Tobramycin S <=4 Trimeth/Sulfa S <=2/38 Pip/Tazo R >64 S = SENSITIVE I = INTERMEDIATE R = RESISTANT
[2020-10-09 08:01] LABS: Hematocrit (blood only) 26.8 % (42-52); Hemoglobin 8.3 g/dL (14.0-18.0); Mean Corpuscular Hemoglobin 25.9 pg (25-34); Mean Corpuscular Volume 83.5 fL (80-100); Mean Platelet Volume 9.1 fL (7.4-10.4); Platelet Count 347 K/uL (130-400); RDW Coefficient of Variation 13.4 % (11.5-14.5); RDW Standard Deviation 41.1 fL (36.4-46.3); Red Blood Count 3.21 M/uL (4.7-6.1); White Blood Count 10.85 K/uL (4.8-10.8)
[2020-10-09] MEDS: GABAPENTIN 600 MG TAB PO SCH ×3 (08:47→21:12)
[2020-10-09] MEDS: ASPIRIN 81 MG ECTAB PO SCH ×2 (08:47→21:12)
[2020-10-09] MEDS: DOCUSATE SODIUM 100 MG CAP PO SCH ×2 (08:48→21:14)
[2020-10-09] MEDS: MULTIVITAMIN TAB PO SCH (08:48)
[2020-10-09] MEDS: FLUTICASONE PROPIONATE NA SPR 16 GM BTL SCH ×2 (08:49→21:13)
--- NOTE | 2020-10-09 08:49 | Pharmacy Report ---
Pharmacy Glycemic Short Note 2 - Date of Service October 09, 2020 - Glycemic Short BSG Results (Last 24 hours): 10/08/20 10/08/20 10/08/20 10:08 11:47 16:29 POC Glucose 178 H 190 H 227 H 10/08/20 10/09/20 10/09/20 20:13 07:34 07:35 POC Glucose 279 H 62 L* 58 L* 10/09/20 08:00 POC Glucose 75 OUTPATIENT ANTIDIABETIC REGIMEN: * Empagliflozin (Jardiance) 10mg PO daily * Glargine 50 units SQ HS * U500- Regular insulin 25 units SQ with meals (this needs to be confirmed with patient) * A1c = 6.9% on 09/15/20 ASSESSMENT: 10/09: * Pt has received 113 units of SQ insulin over the past 24hrs * 80 units of basal insulin with Lantus * 33 units of bolus insulin with NovoLog * Pt with LOW BSG this AM. Hypoglycemia at 62-58 mg/dl. May have been cause by too much basal insulin; however, total dose of basal insulin yesterday was slightly less than the previous day. May have been some insulin stacking with transitioning basal from BID to once Daily in PM. Will reduce PM dose of Lantus this evening to prevent subsequent LOW tomorrow. * No changes needed to bolus insulin coverage. 10/08: * Pt NPO this AM for I&D * Lantus not given prior to procedure. Pt typically takes glargine once daily but we have been dosing BID in-house. Will change to once daily dosing in the evening to ease transition to outpatient dosing since Lantus not given this AM. * Pt has received 144 units of insulin over the past 24hrs with good control. * Regimen is split ~50:50% basal:prandial which is the preferred distribution to prevent hypo when PO intake changes * No changes needed to regimen dosing 10/07: * 55yo T2DM male known to pharmacy from previous admissions/glycemic consults; most recently last month. * Pt typically uses ~ 200 units of insulin while admitted split 50%:50% between basal and prandial insulin * Tight glycemic control crucial for wound healing * Will utilize SC basal/bolus with Lantus and Novolog * Patient received 71 units of insulin overnight (50 units of Lantus and 21 units of Novolog) * Patient was originally NPO after midnight for possible procedure today, but moved to tomorrow (left foot I&D) * Lantus 40 units (20% dose reduction) given this morning, will utilize Lant us scale this evening * Will use previous admission data to guide initial insulin dosing PLAN FOR INPATIENT GLYCEMIC CONTROL: * Hold outpatient oral diabetes medications * Basal insulin * Decrease Lantus to 75 units SQ HS * Bolus insulin: no change * NovoLog per scale ACHS or Q6hrs while NPO * Goal Range: Low 110 mg/dL - High 140 mg/dL * Correction Factor: 10 mg/dL/unit * Nutritional / Prandial insulin per carb ratio of 1 unit per 3 grams CHO consumed
[2020-10-09] MEDS: INSULIN ASPART 100 UNITS/ML 3 ML PEN SC SCH ×4 (08:51→21:07)
[2020-10-09 09:59] LABS: BUN Creatinine Ratio 25.4 (10-20); Est GFR (African American) 42.6; Est GFR (Non-African American) 36.7; Potassium 3.5 mmol/L (3.5-5.1)
--- NOTE | 2020-10-09 13:38 | Hospitalist Progress Note ---
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 Bernardo) who presented to [facility] ED on 10/06/2020 for dyspnea on exertion for 3 days. Left Foot Ulcer - recent left 5th metatarsal osteomyelitis s/p abx x30 days and I&D on 09/18 - in the ED, left ulceration with overlying green film and malodorous green discharge with surrounding erythema - XR left foot shows bony destruction/fragmentation at base of 5th metatarsal suspicious for osteomyelitis - will start Zosyn IV for Pseudomonas coverage - orthopedic surgery consulted (Dr. Bernardo - performed I&D on 09/18) s/p OR on 10/08 for I&D - blood cx neg on prelim wound cx prelim noted for atypical bacteria - received Rocephin 2g IV in ED, this was continued during admission, however pharmacy recs changed to meropenem given wound cx--changed on 10/08 and should be regarded as day 1 of abx Sensi returned today and only abx tested against both organisms is Bactrim, d/w pharmacy and agrees that this will be a good choice Started 10/09, will need prolonged tx Pt unable to afford medications--rx faxed to [place] to have abx mailed to pt as he cannot afford gas to get [place] to [place] his medications Pt will need d/c'd with a week of abx from our pharmacy to cover [facility] Shortness of Breath - 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 She does not feel pt has CHF given BNP is always WNL and had suggested pt be seen in lymphedema clinic COSMO on CKD - Cr 2.25, Ratio 28.6 - Cr down from 2.68 on 10/02 (stopped Metolazone on 10/01) - baseline Cr 1.5-1.8 - suspect pre-renal injury 2/2 excessive diuresis, improving since off of Metolazone - hold home Bumex and continue to hold Metolazone - follow BMP daily LE swelling has improved without diuretic use during admission, will continue to hold Hesitant to add IVF for improving COMSO due to risk of fluid overload Uncertain how much diuretic pt will need moving forward as he has done quite well off of them during admission Contraction Alkalosis - Cl 86, HCO3 33, COSMO as above - 2/2 excessive diuresis - hold diuretics as mentioned above CHF - intermittent LE edema x several weeks that recently improved - last TTE 03/02/2020: EF 60-65%, normal LV systolic function and normal diastolic function, significant MR - continue home Toprol 150mg PO QHS, hold Bumex/Metolazone as above - continue Aspirin 81 mg PO BID - daily weights, strict I/Os, heart-healthy/low-sodium diet T2DM - last A1c 6.9 on 09/15/2020 - basal insulin + SSI WHIT - CPAP QHS HTN - continue home Doxazosin 4 mg PO QHS and Toprol as mentioned above HLD - continue Lipitor 80 mg PO QHS GERD - Protonix 20 mg PO QHS per hospital formulary FEN/GI: DM2, heart-healthy/salt-restricted DVT Prophylaxis: Heparin 5000 units SQ Q8H Code Status: Full code Disposition: Med/surg with tele Pt states extreme financial hardship at this time. He was recently determined to have made too much money last year to qualify for ongoing [facility] for [facility] appts, but he states that he has not been able to work since July, so he has no income. I d/w CM, who d[facility]w [facility]. MD will have their CM contact pt to discuss options. Our CM is also going to give pt info about [facility] to see what options they can offer him. (2) Shortness of breath: (3) Acute kidney injury: (4) Acute on chronic renal failure: (5) CHF (congestive heart failure): (6) Diabetes: (7) Chronic anemia: (8) Hypertension: (9) WHIT (obstructive sleep apnea): (10) HLD (hyperlipidemia): (11) Venous stasis dermatitis: Admission and Anticipated Discharge Date Admission Date: October 06, 2020 Subjective Pt has no pain to his foot. Tolerating PO. Pt denies fever, SOB, chest pain, abd pain, n/v/c/d, LE swelling. Review of Systems Review of Systems: Pertinent positives and negatives reviewed in HPI--all others negative Physical Exam Constitutional: WD/WN, vitals as above Eyes: normal visual thomas by confrontation and + anicteric sclerae Neck: normal visual inspection and trachea midline Respiratory: normal respiratory effort, lungs clear to auscultation Cardiovascular: Rate/Rhythm: regular rate and regular rhythm Extremities: no edema Gastrointestinal (Abdomen): Inspection/Auscultation: abdomen not distended Percussion/Palpation: abdomen soft; abdomen nontender Musculoskeletal: Head/Neck/Chest: normocephalic and head atraumatic Skin: no rashes, warm and dry Neurologic: awake; not confused Speech / Cognition: normal speech Psychiatric: Orientation: oriented x 3 and cooperative Affect: + depressed affect Results & Data Results & Data ([facility]) Vital Signs (Past 12 Hours) Vital Signs Temp Pulse Pulse Resp BP BP Pulse Ox 10/09/20 11:00 37.7 C H 56 L 20 129/67 93 10/09/20 07:33 55 L 10/09/20 07:18 37.5 C 56 L 20 113/66 93 10/09/20 03:14 37.2 C 54 L 18 111/68 99 10/09/20 02:30 64 18 93 PG Care Time/CCT Total # of Minutes Spent Total Time Spent with Patient: Total time spent is greater than 50% in coordination of care (as documented) at patient's floor/unit and/or counseling patient: Coding Level of Care Code 82498 Subseq Hosp Care Lvl 3 Diagnoses Foot ulcer, left L97.529 Shortness of breath R06.02 Acute kidney injury N17.9 Acute on chronic renal failure N17.9; N18.9 Acute renal failure type: unspecified Chronic kidney disease stage: unspecified stage CHF (congestive heart failure) I50.33 Heart failure type: diastolic Heart failure chronicity: acute on chronic Diabetes E11.621; L97.509; Z79.4 Diabetes mellitus type: type 2 Diabetes mellitus longterm insulin use: with intermediate manager use Diabetes mellitus complication status: with skin complications Diabetes mellitus complication detail: with foot ulcer Chronic anemia D64.9 Hypertension I10 Hypertension type: essential hypertension WHIT (obstructive sleep apnea) G47.33 HLD (hyperlipidemia) E78.5 Venous stasis dermatitis I87.2 (1) Acute on chronic renal failure Acute renal failure type: unspecified Chronic kidney disease stage: unspecified stage Qualified Code(s): N17.9 - Acute kidney failure, unspecified; N18.9 - Chronic kidney disease, unspecified (2) CHF (congestive heart failure) Heart failure type: diastolic Heart failure chronicity: acute on chronic Qualified Code(s): I50.33 - Acute on chronic diastolic (congestive) heart failure (3) Diabetes Diabetes mellitus type: type 2 Diabetes mellitus intermediate manager insulin use: with intermediate manager use Diabetes mellitus complication status: with skin complications Diabetes mellitus complication detail: with foot ulcer Qualified Code(s): E11.621 - Type 2 diabetes mellitus with foot ulcer; L97.509 - Non-pressure chronic ulcer of other part of unspecified foot with unspecified severity; Z79.4 - retirement (current) use of insulin (4) Hypertension Hypertension type: essential hypertension Qualified Code(s): I10 - Essential (primary) hypertension
[2020-10-09] MEDS ORDERED: INSULIN GLARGINE SOLOSTAR 100 UNITS/ML 3 ML PEN SC SCH (21:00)
[2020-10-09] MEDS: SULFAMETHOXAZOLE/TRIMETHOPRIM DS 800/160MG TAB PO SCH (21:11)
[2020-10-09] MEDS: CYANOCOBALAMIN 500 MCG TABLET (VITAMIN B-12) PO SCH (21:12)
[2020-10-09] MEDS: CHOLECALCIFEROL 1,000 UNITS 25 MCG TAB PO SCH (21:12)
[2020-10-09] MEDS: PANTOprazole 40 MG TAB PO SCH (21:12)
[2020-10-09] MEDS: MAGNESIUM OXIDE 400 MG TAB PO SCH (21:12)
[2020-10-09] MEDS: DOXAZosin MESYLATE 4 MG TAB PO SCH (21:12)
[2020-10-09] MEDS: ATORVASTATIN 40 MG TAB PO SCH (21:12)
[2020-10-09] MEDS: METOPROLOL SUCC 50MG EXT REL TAB PO SCH (21:12)
[2020-10-09] MEDS: SENNA 8.6 MG TAB PO SCH (21:14)
[2020-10-10] MEDS ORDERED: SULFAMETHOXAZOLE/TRIMETHOPRIM DS 800/160MG TAB PO SCH
[2020-10-10] MEDS: HEPARIN SOD 5,000 UNIT/0.5 ML VIAL SQ SCH (06:05)
[2020-10-10 08:34] LABS: BUN Creatinine Ratio 23.9 (10-20); Calcium 9.2 mg/dl (8.5-10.1); Creatinine Clr Calc Pharmacy 51.8 ml/min; Est GFR (African American) 46.5; Est GFR (Non-African American) 40.1
[2020-10-10] MEDS: GABAPENTIN 600 MG TAB PO SCH ×2 (09:06→13:13)
[2020-10-10] MEDS: SULFAMETHOXAZOLE/TRIMETHOPRIM DS 800/160MG TAB PO SCH (09:07)
[2020-10-10] MEDS: MULTIVITAMIN TAB PO SCH (09:07)
[2020-10-10] MEDS: DOCUSATE SODIUM 100 MG CAP PO SCH (09:08)
[2020-10-10] MEDS: ASPIRIN 81 MG ECTAB PO SCH (09:08)
[2020-10-10] MEDS: FLUTICASONE PROPIONATE NA SPR 16 GM BTL SCH (09:09)
[2020-10-10] MEDS: INSULIN ASPART 100 UNITS/ML 3 ML PEN SC SCH ×2 (09:11→13:00)
--- NOTE | 2020-10-10 09:16 | Orthopedic Progress Note ---
Date of Service October 10, 2020 Assessment & Plan (1) Foot ulcer, left: POD#2 1. Irrigation and debridement, left foot necrotic foot ulcer 4 x 3.5 x 1.7 cm deep with Acticoat Flex patch. 2. Irrigation and debridement including skin, subcutaneous tissue, fascia, peroneus brevis tendon and base of fifth metatarsal bone. 3. Resection of osteomyelitis base of fifth metatarsal. 4. Resection avulsion fracture base of fifth metatarsal. 5. Implantation of a 5 mL Stimulan antibiotic beads. Dressings changed this AM. Activity- NWB Left LE. DVT proph- Heparin/ ASA. Hyponatremia- Na+- 132. Acute on chronic renal failure. Cultures- Staph Aureus, Enterobacter Cloacae On Bactrim. Co morbidities per medicine. Disposition per primary team. Admission and Anticipated Discharge Date Admission Date: October 06, 2020 Subjective POD #2, Feeling well. No pain in Left foot, has neuropathy. Denies SOB, Cp, N/V, dizziness. Physical Exam Physical Exam: Left foot incision c/d/i. No drainage, naina in tact, Acticoat Flex patch in tact. Mild erythema, mild swelling. Toes and ankle mobile. Cap refill in tact. Minimal feeling due to neuropathy. A&Ox3. Results & Data ([facility]) Vital Signs (Past 12 Hours) Vital Signs Temp Pulse Pulse Resp BP Pulse Ox 10/10/20 08:18 36.6 C 55 L 20 134/58 L 94 10/10/20 03:46 37.6 C H 57 L 20 135/70 93 10/10/20 01:00 57 L 10/09/20 22:59 37.0 C 53 L 18 147/74 H 94
[2020-10-10] MEDS ORDERED: SEPTRA DS HOME PACK 1 EA VIAL PO ONE (11:48)
--- NOTE | 2020-10-12 12:33 | Billing Data ---
Date of Service October 06, 2020 Coding Level of Care Code 23283 Initial Inpt Care Lvl 3
--- NOTE | 2020-10-12 21:43 | Discharge Summary ---
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 Bernardo) who presented to [facility] ED on 10/06/2020 for dyspnea on exertion for 3 days. Patient reports that he had intermittent LE edema (left foot worse than right foot) after the I&D on 09/18, although the edema was largely resolved as of 10/02. He followed up with Dr. Bernardo on 10/02 and reportedly had no signs of infection at that time - left foot was healing well. Started to have dyspnea on exertion starting on 10/03 - no associated orthopnea, PND, worsening LE edema. No fever/chills, chest pain/palpitations, cough, N/V, diarrhea. Patient sees Dina Artis for h/o hypervolemia/CHF - Metolazone was stopped on 10/01 due to COSMO but continued to take Bumex 3mg PO BID as prescribed. Reports impaired foot sensation for "years" but issues with foot ulcers for several months. Was started on Metformin and Jardiance 2 weeks ago by Account Manager Sales Representative - continues to take daily insulin + SSI. Last A1c 6.9 on 09/15/2020. No other medication changes. Lives with . Proficient in ADLs and most iADLs - uses a cane. 60 pack year tobacco smoking history - quit 6 years ago. Denies alcohol/drug use. In the ED was found to have persistent osteomyelitis of left 5th metatarsal as well as COSMO - BNP WNL and no signs of pulmonary edema/effusions on CXR. Hemodynamically stable/afebrile. Principal Diagnosis left foot ulcer Discharge Exam Constitutional: WD/WN, vitals as above Eyes: normal visual thomas by confrontation and + anicteric sclerae Neck: normal visual inspection and trachea midline Respiratory: normal respiratory effort, lungs clear to auscultation Cardiovascular: Rate/Rhythm: regular rate and regular rhythm Extremities: no edema Gastrointestinal (Abdomen): Inspection/Auscultation: abdomen not distended Percussion/Palpation: abdomen soft; abdomen nontender Musculoskeletal: Head/Neck/Chest: normocephalic and head atraumatic Skin: no rashes, warm and dry Neurologic: awake; not confused Speech / Cognition: normal speech Psychiatric: Orientation: oriented x 3 and cooperative Affect: + depressed affect Discharge Data Allergies Allergy/AdvReac Type Severity Reaction Status Date / Time amitriptyline AdvReac Mild muscle Verified 10/06/20 19:06 twitching hydralazine AdvReac Mild Rash Verified 10/06/20 19:06 Consultations 10/06/20 17:58 ED Decision to Admit Stat 10/06/20 19:35 Consult Orthopedic Surgery Routine 10/08/20 10:51 Consult Case Management - Discharge Planning Routine 10/10/20 12:30 Consult [employer] chain maker machine Routine Procedures Performed Operation Date: 10/08/20 07:30 Actual Procedures p Irrigation and Debridement Left Necrotic Foot Ulcer 4cm x 35.cm x 1.7cm, Debridement Skin, Suncutaneous, Fascia, Tendon, and Bone, Resection of Osteomyelitis, and Implantation of Stimulan Beads(Left) - Iván Bernardo DO Ordered Studies 10/06/20 16:16 US venous doppler [facility] Stat Hospital Course (1) Foot ulcer, left: Reid Swartz is a 55 yo male with h/o 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 Bernardo) who presented to [facility] ED on 10/06/2020 for dyspnea on exertion for 3 days. Left Foot Ulcer - recent left 5th metatarsal osteomyelitis s/p abx x30 days and I&D on 09/18 - in the ED, left ulceration with overlying green film and malodorous green discharge with surrounding erythema - XR left foot shows bony destruction/fragmentation at base of 5th metatarsal suspicious for osteomyelitis - will start Zosyn IV for Pseudomonas coverage - orthopedic surgery consulted (Dr. Bernardo - performed I&D on 09/18) s/p OR on 10/08 for I&D - blood cx neg on prelim wound cx prelim noted for atypical bacteria - received Rocephin 2g IV in ED, this was continued during admission, however pharmacy recs changed to meropenem given wound cx--changed on 10/08 and should be regarded as day 1 of abx Sensi returned today and only abx tested against both organisms is Bactrim, d/w pharmacy and agrees that this will be a good choice Started 10/09, will need prolonged tx Pt unable to afford medications--rx faxed to [place] to have abx mailed to pt as he cannot afford gas to get to [place] to black pickler his medications Pt will d/c with a week of abx from our pharmacy to cover until medication arrives from [place] Shortness of Breath - 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 She does not feel pt has CHF given BNP is always WNL and had suggested pt be seen in lymphedema clinic COSMO on CKD - Cr 2.25, Ratio 28.6 - Cr down from 2.68 on 10/02 (stopped Metolazone on 10/01) - baseline Cr 1.5-1.8 - suspect pre-renal injury 2/2 excessive diuresis, improving since off of Metolazone - hold home Bumex and continue to hold Metolazone - follow BMP daily LE swelling has improved without diuretic use during admission, will continue to hold Hesitant to add IVF for improving COSMO due to risk of fluid overload Uncertain how much diuretic pt will need moving forward as he has done quite well off of them during admission. will hold diuretic at discharge Contraction Alkalosis - Cl 86, HCO3 33, COSMO as above - 2/2 excessive diuresis - hold diuretics as mentioned above CHF - intermittent LE edema x several weeks that recently improved - last TTE 03/02/2020: EF 60-65%, normal LV systolic function and normal diastolic function, significant MR - continue home Toprol 150mg PO QHS, hold Bumex/Metolazone as above - continue Aspirin 81 mg PO BID - daily weights, strict I/Os, heart-healthy/low-sodium diet T2DM - last A1c 6.9 on 09/15/2020 - basal insulin + SSI WHIT - CPAP QHS HTN - continue home Doxazosin 4 mg PO QHS and Toprol as mentioned above HLD - continue Lipitor 80 mg PO QHS GERD - Protonix 20 mg PO QHS per hospital formulary (2) Shortness of breath: (3) Acute kidney injury: (4) Acute on chronic renal failure: (5) CHF (congestive heart failure): (6) Diabetes: (7) Chronic anemia: (8) Hypertension: (9) WHIT (obstructive sleep apnea): (10) HLD (hyperlipidemia): (11) Venous stasis dermatitis: Total Time Total Time Spent Total Time Spent (In Minutes): 32 Total Time Includes: Examination of the Patient, Discharge Planning and Medication Reconciliation Discharge Plan Discharge Items Patient Disposition: Home - Home Health Services Reason For Visit: DYSPNEA ON EXERTION, OSTEOMYELITIS Discharge Diagnosis: osteomyelitis Activity: Resume your previous activity Non-emergency contact: Primary Care Provider Call non-emergency contact if: you have any medication questions Follow-up/Referrals: Marbella Gomez PA-C [Primary Care Provider] - (Please call the [place] to see your pcp ) Diet: Carb Consistent or DM2, Heart Healthy and Low Sodium (2gm) Addtl Attending Provider Instructions: You will be discharged with 1 week worth of antibiotics. The [place] will mail the rest of your antibiotics. I sent a 5 day supply of the antibiotic to [facility] pharmacy if the [place] mail in script takes a while. You will be followed by home health for dressing changes and wound care. Activity- Non Weight Bear Left LE. Pending Studies at Discharge: No Stand-Alone Forms: [facility], Smoking Cessation Medications and DC Order Prescriptions: New sulfamethoxazole-trimethoprim 800-160 mg Tablet 1 tab PO Q12 Qty: 60 RF: 0 sulfamethoxazole-trimethoprim 800-160 mg tablet 1 tab PO BID 5 Days Qty: 10 RF: 0 Continued aspirin 81 mg tablet,delayed release (DR/EC) 81 mg PO BID RF: 0 doxazosin 4 mg tablet 4 mg PO QPM RF: 0 polyethylene glycol 3350 17 gram/dose powder 17 gm PO BID PRN (Reason: constipation) Qty: 510 RF: 5 magnesium oxide 400 mg Capsule 400 mg PO QPM RF: 0 atorvastatin 80 mg Tablet 80 mg PO QPM RF: 0 metoprolol succinate 50 mg Tablet Extended Release 24 Hr 150 mg PO QPM RF: 0 omeprazole 20 mg Capsule,Delayed Release(Dr/Ec) 20 mg PO QPM Qty: 0 RF: 0 gabapentin 600 mg tablet 600 mg PO TID RF: 0 Probiotic 3 billion cell Capsule 3,000 mmu cells PO QAM RF: 0 Humulin R U-500 (Conc) Insulin 500 unit/mL Solution 25 unit subcut TIDWMEAL RF: 0 insulin glargine 100 unit/mL Cartridge 50 unit SUBCUT ONCE PM RF: 0 oxycodone-acetaminophen [Percocet] 5-325 mg tablet 1 tab PO Q4H PRN (Reason: pain) Qty: 20 RF: 0 omega 1-ekj-ins-fish oil [Fish Oil] 1,000 mg (120 mg-180 mg) Capsule 1 cap PO QPM RF: 0 cholecalciferol (vitamin D3) [Vitamin D3] 25 mcg (1,000 unit) tablet,chewable 2,000 units PO QPM RF: 0 cyanocobalamin (vitamin B-12) [Vitamin B-12] 1,000 mcg tablet 1,000 mcg PO QPM RF: 0 fluticasone propionate [Flonase Allergy Relief] 50 mcg/actuation [place],Suspension 1 spray INTRANASAL BID RF: 0 tramadol 50 mg Tablet 50 mg PO Q6H PRN (Reason: Pain) RF: 0 Santyl 250 unit/gram Ointment 1 applic EXT DAILY 28 Days Qty: 30 RF: 3 metformin 500 mg Tablet 500 mg PO BID RF: 0 Jardiance 10 mg Tablet 10 mg PO DAILY RF: 0 Discontinued bumetanide 1 mg tablet 3 mg PO BID 30 Days Qty: 180 RF: 4 Discharge Orders: Discharge Order (Routine); Ordered 10/10/20 Ordered By: Naveen Fowler Admission Data Admit Date/Time: 10/06/20 19:35 Attending Provider: Naveen Fowler Admit Provider: Jus Sterling Primary Care Provider: Marbella Gomez Other Providers: Iván Bernardo ; [facility],Home Healthcare ; Naveen Fowler Other Interventions: Discharge Summary Assessment (RN) Last Done: 10/10/20 12:39 Coding Level of Care Code D/C Day Management >30 mins Diagnoses Foot ulcer, left L97.529 Shortness of breath R06.02 Acute kidney injury N17.9 Acute on chronic renal failure N17.9; N18.9 Acute renal failure type: unspecified Chronic kidney disease stage: unspecified stage CHF (congestive heart failure) I50.33 Heart failure type: diastolic Heart failure chronicity: acute on chronic Diabetes E11.621; L97.509; Z79.4 Diabetes mellitus type: type 2 Diabetes mellitus superintendent marine oil terminal insulin use: with superintendent marine oil terminal use Diabetes mellitus complication status: with skin complications Diabetes mellitus complication detail: with foot ulcer Chronic anemia D64.9 Hypertension I10 Hypertension type: essential hypertension WHIT (obstructive sleep apnea) G47.33 HLD (hyperlipidemia) E78.5 Venous stasis dermatitis I87.2
== END 2020-10-10 14:28 | disposition home health service (06) | DRG 629 ==
LOC: ED 15:51 → 2N 19:35 → SUATTDRO 19:35 → 2N 20:32

== ENCOUNTER 2021-05-25 13:50 | Inpatient (IN) ==
--- NOTE | 2021-05-25 16:05 | Emergency Department Note ---
History of Present Illness General Chief complaint: Swelling/Edema to Extremity Stated complaint: EDEMA Time Seen by Provider: 05/25/21 15:47 Source: patient Mode of arrival: ambulatory Limitations: no limitations History of Present Illness This patient is a 55-year-old male who presents to the emergency department for evaluation of swelling. He states that he has a history of CHF and a history of lower extremity swelling. He states he believes he is carrying 20 to 30 pounds of water weight. He states his dry weight is 230 to 240 pounds and today, he was 270 pounds. He has been on several diuretics in the past but states they did not do much for him. He is currently on Bumex and states that last week, his dosage was increased from 2 mg twice daily to 3 mg twice daily. He has not noticed much improvement with that. He states he has had issues with lower extremity swelling off and on for the past 2 years, but it has worsened over the past few months. He reports he has had some shortness of breath with exertion for "a while." He spoke with a nurse at the [facility] today, who recommended that he come here to possibly be admitted. Patient currently denies any chest pain, shortness of breath or fevers. Patient does have a chronic ulceration to the left foot which he has been seeing [facility] for. Home Medications Medication Instructions Recorded Confirmed Type atorvastatin 80 mg tablet 80 mg PO QPM 08/02/18 05/25/21 History magnesium oxide 400 mg PO HS 08/02/18 05/25/21 History metoprolol succinate 50 mg 150 mg PO QPM 08/02/18 05/25/21 History tablet,extended release 24 hr omega 5-jdb-hpd-fish oil 1,000 mg 1 cap PO QPM 02/20/19 05/25/21 History (120 mg-180 mg) capsule (Fish Oil) omeprazole 20 mg capsule,delayed 20 mg PO QPM #0 cap 08/14/19 05/25/21 Rx release cholecalciferol (vitamin D3) 25 2,000 units PO QPM tab 11/19/19 05/25/21 History mcg (1,000 unit) chewable tablet (Vitamin D3) cyanocobalamin (vitamin B-12) 1,000 mcg PO HS tab 11/19/19 05/25/21 History 1,000 mcg tablet (Vitamin B-12) gabapentin 600 mg tablet 600 mg PO TID 12/06/19 05/25/21 History polyethylene glycol 3350 17 17 gm PO BID PRN #510 gm 12/23/19 05/25/21 Rx gram/dose oral powder aspirin 81 mg tablet,delayed 81 mg PO BID tab 01/16/20 05/25/21 History release tramadol 50 mg tablet 50 mg PO Q6H PRN 02/21/20 05/25/21 History fluticasone propionate 50 1 spray INTRANASAL BID 05/05/20 05/25/21 History mcg/actuation nasal spray,suspension (Flonase Allergy Relief) insulin regular hum U-500 conc 500 50 unit SUBCUT TID 09/18/20 05/25/21 History unit/mL subcutaneous soln (Humulin R U-500 (Concentrated) Insulin) doxazosin 4 mg tablet 4 mg PO QPM 10/01/20 05/25/21 History empagliflozin 10 mg tablet 10 mg PO QPM 10/06/20 05/25/21 History (Jardiance) metformin 500 mg tablet 500 mg PO BID 10/06/20 05/25/21 History sulfamethoxazole 800 1 tab PO Q12 #60 tab 10/10/20 05/25/21 Rx mg-trimethoprim 160 mg tablet insulin glargine 100 unit/mL (3 50 unit SUBCUT PM 10/16/20 05/25/21 History mL) subcutaneous pen ferrous sulfate 325 mg (65 mg 325 mg PO QAM 02/03/21 05/25/21 History iron) tablet acetaminophen 500 mg tablet 1,000 mg PO Q6H PRN 02/12/21 05/25/21 History (Acetaminophen Extra Strength) bumetanide 1 mg tablet 1 mg PO .COMPLEX #60 tab 05/17/21 05/25/21 Rx bumetanide 2 mg tablet 3 mg PO BID tab 05/17/21 05/25/21 History melatonin 10 mg capsule 10 mg PO HS 05/17/21 05/25/21 History Allergies Allergy/AdvReac Type Severity Reaction Status Date / Time amitriptyline AdvReac Mild muscle Verified 05/25/21 17:31 twitching hydralazine AdvReac Mild Rash Verified 05/25/21 17:31 Past Med/Surg History Medical History Chronic back pain Chronic kidney disease Baseline creatine stabilized at 1.4 Following closely with nephrology. Depression Diabetes Diastolic CHF Hypervolemia secondary to high sodium intake- per 12/01/20 Heart Failure [facility] visit- pt stable by phone- close to dry weight of 240 lb Volume overload seems to fluctuate- [facility] - fluid retention may be more multifactorial rather than cardiac Dyslipidemia Dyspnea WITH EXERTION GERD (gastroesophageal reflux disease) Hypertension Migraine Morbid obesity Osteoarthritis Sleep apnea cpap Temporomandibular joint disorder CLICKS ON OCC NO LOCKING Surgical History History of incision and drainage Left foot multiple with skin graft, last 09/2020 History of open reduction and internal fixation (ORIF) procedure Left ankle Bimalleolar Fracture (11/2019) History of placement of ear tubes right ear History of tonsillectomy and adenoidectomy Hx of cataract surgery right and left Hx of colonoscopy [place] teeth extracted Family History Father Diabetes Mother Diabetes Other Coronary heart disease Hypertension Denies family history of Crohn's disease Kidney disease Colorectal cancer Ulcerative colitis Social History Smoking Status: Former smoker Tobacco Type: Cigarettes Second Hand Exposure: No; Hx Alcohol Use: Yes Alcohol type: beer Hx Substance Use: No Preferred Language: [place] Communication Ability: [employer] Required: No Beliefs That Will Affect Care: None marital status: Current Living Situation: Spouse Current Living Situation Comment: Four children, grown & in good health current occupational status: employed 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 Other Information That Helps Us Care for You: No Feels Safe at Home: Yes Safety Concerns: Feels Safe At This Time Assistive Devices: CPAP Review of Systems A total of 10 systems reviewed and were otherwise negative Physical Exam Vital Signs Vital Signs - 24 hr 05/25/21 14:01 Temperature 36.9 C Temperature Source Temporal Artery Scan Pulse Rate 73 Respiratory Rate 14 Blood Pressure 121/55 L Blood Pressure Mean 77 Pulse Oximetry 96 Oxygen Delivery Method Room Air Sepsis Recent Fever Within 48 Hours No Sepsis New/Unexplained Change in Mental Status No Sepsis Action Taken by Nursing No Action Required VITALS: Vitals are noted on the nurse's note and reviewed by myself. GENERAL: This is a 55-year-old male, in no acute distress, well-developed well- nourished. SKIN: There is an ulcerated appearing wound to the plantar aspect of the left f oot. EARS: External auditory canals clear, tympanic membranes pearly waller without erythema or effusion bilaterally. EYES: Pupils equal round and reactive to light and accommodation. MOUTH: Mucous membranes moist. NECK: Supple without nuchal rigidity. No lymphadenopathy. HEART: Regular rate and rhythm without murmurs gallops or rubs. LUNGS: Clear to auscultation bilaterally without wheezes, rales or rhonchi. No retractions or accessory muscle use. ABDOMEN: Protuberant abdomen. Soft, nontender. EXTREMITIES: 3+ pitting edema noted to bilateral lower extremities. No erythema or warmth. Some venous stasis changes noted. NEURO: Patient was alert and oriented to person place and time. Distal sensation intact. Course Consultations Consultation #1: Dr. Wing - nephrology Administered Medications Acetaminophen (Acetaminophen 500 Mg Tab) 1,000 mg PO Q6H PRN PRN Reason: Headache Stop: 06/24/21 22:39 Last Admin: 05/28/21 04:14 Dose: 1,000 mg Documented by: [id number] Aspirin (Aspirin 81 Mg Ectab) 81 mg PO BID LELIA Stop: 06/24/21 22:39 Last Admin: 05/27/21 19:29 Dose: 81 mg Documented by: [id number] Admin: 05/27/21 08:52 Dose: 81 mg Documented by: [id number] Admin: 05/26/21 20:39 Dose: 81 mg Documented by: [id number] Admin: 05/26/21 08:12 Dose: 81 mg Documented by: [id number] Admin: 05/25/21 23:42 Dose: 81 mg Documented by: [id number] Atorvastatin Calcium (Atorvastatin 40 Mg Tab) 80 mg PO QPM LELIA Stop: 06/24/21 22:39 Last Admin: 05/27/21 19:28 Dose: 80 mg Documented by: [id number] Admin: 05/26/21 20:39 Dose: 80 mg Documented by: [id number] Admin: 05/25/21 23:42 Dose: 80 mg Documented by: [id number] Ferrous Sulfate (Ferrous Sulfate 325 Mg Tab) 325 mg PO QAM LELIA Stop: 06/25/21 08:59 Last Admin: 05/27/21 08:53 Dose: 325 mg Documented by: [id number] Admin: 05/26/21 08:13 Dose: 325 mg Documented by: [id number] Fluticasone Propionate (Fluticasone Propionate Na Spr 16 Gm Btl) 1 sprays EFE BID [facility] Stop: 06/24/21 22:39 Last Admin: 05/27/21 19:29 Dose: 1 sprays Documented by: [id number] Admin: 05/27/21 10:03 Dose: Not Given Documented by: [id number] Admin: 05/26/21 20:39 Dose: 1 sprays Documented by: [id number] Admin: 05/26/21 08:12 Dose: 1 sprays Documented by: [id number] Admin: 05/25/21 23:41 Dose: 1 sprays Documented by: [id number] Gabapentin (Gabapentin 600 Mg Tab) 600 mg PO TID [facility] Stop: 06/24/21 22:39 Last Admin: 05/27/21 19:28 Dose: 600 mg Documented by: [id number] Admin: 05/27/21 14:14 Dose: 600 mg Documented by: [id number] Admin: 05/27/21 08:53 Dose: 600 mg Documented by: [id number] Admin: 05/26/21 20:39 Dose: 600 mg Documented by: [id number] Admin: 05/26/21 13:38 Dose: 600 mg Documented by: [id number] Admin: 05/26/21 08:12 Dose: 600 mg Documented by: [id number] Admin: 05/25/21 23:41 Dose: 600 mg Documented by: [id number] Heparin Sodium (Porcine) (Heparin Sod 5,000 Unit/0.5 Ml Vial) 5,000 units SQ Q8 [facility] Stop: 06/24/21 22:39 Last Admin: 05/28/21 05:33 Dose: 5,000 units Documented by: [id number] Admin: 05/27/21 21:03 Dose: 5,000 units Documented by: [id number] Admin: 05/27/21 14:14 Dose: 5,000 units Documented by: [id number] Admin: 05/27/21 06:29 Dose: 5,000 units Documented by: [id number] Admin: 05/26/21 20:45 Dose: 5,000 units Documented by: [id number] Admin: 05/26/21 14:15 Dose: 5,000 units Documented by: [id number] Admin: 05/26/21 05:45 Dose: 5,000 units Documented by: [id number] Admin: 05/25/21 23:41 Dose: 5,000 units Documented by: [id number] Insulin Aspart (Insulin Aspart 100 Units/Ml 3 Ml Pen) 0 units SC ACHS LELIA Stop: 06/24/21 22:39 Last Admin: 05/27/21 21:03 Dose: 3 units Documented by: [id number] Cosigned by: [id number] Admin: 05/27/21 17:44 Dose: 8 units Documented by: [id number] Cosigned by: [id number] Admin: 05/27/21 14:14 Dose: 7 units Documented by: [id number] Cosigned by: [id number] Admin: 05/27/21 08:55 Dose: 7 units Documented by: [id number] Cosigned by: [id number] Admin: 05/26/21 20:42 Dose: 3 units Documented by: [id number] Cosigned by: [id number] Admin: 05/26/21 18:03 Dose: 6 units Documented by: [id number] Cosigned by: [id number] Admin: 05/26/21 13:36 Dose: 7 units Documented by: [id number] Cosigned by: [id number] Admin: 05/26/21 09:35 Dose: 7 units Documented by: [id number] Cosigned by: [id number] Admin: 05/25/21 23:37 Dose: 3 units Documented by: [id number] Cosigned by: [id number] Insulin Glargine (Insulin Glargine Solostar 100 Units/Ml 3 Ml Pen) 50 units SQ PM LELIA Stop: 06/24/21 22:39 Last Admin: 05/27/21 21:03 Dose: 50 units Documented by: [id number] Cosigned by: [id number] Admin: 05/26/21 20:44 Dose: 50 units Documented by: [id number] Cosigned by: [id number] Admin: 05/25/21 23:37 Dose: 50 units Documented by: [id number] Cosigned by: [id number] Melatonin (Melatonin 3 Mg Tab) 9 mg PO HS LELIA Stop: 06/24/21 22:39 Last Admin: 05/27/21 21:03 Dose: 9 mg Documented by: [id number] Admin: 05/26/21 20:40 Dose: 9 mg Documented by: [id number] Admin: 05/25/21 23:43 Dose: 9 mg Documented by: [id number] Metoprolol Succinate (Metoprolol Succ 50mg Ext Rel Tab) 150 mg PO QPM LELIA Stop: 06/24/21 22:39 Last Admin: 05/27/21 19:32 Dose: 150 mg Documented by: [id number] Admin: 05/26/21 20:36 Dose: 150 mg Documented by: [id number] Admin: 05/25/21 23:41 Dose: 150 mg Documented by: [id number] Pantoprazole Sodium (Pantoprazole 40 Mg Tab) 40 mg PO QPM LELIA Stop: 06/24/21 22:39 Last Admin: 05/27/21 19:28 Dose: 40 mg Documented by: [id number] Admin: 05/26/21 20:36 Dose: 40 mg Documented by: [id number] Admin: 05/25/21 23:41 Dose: 40 mg Documented by: [id number] Torsemide (Torsemide 20 Mg Tab) 40 mg PO QAM LELIA Stop: 06/26/21 08:59 Last Admin: 05/27/21 08:54 Dose: 40 mg Documented by: [id number] Trimethoprim/Sulfamethoxazole (Sulfamethoxazole/Trimethoprim Ds 800/160mg Tab) 1 tab PO Q12 LELIA Stop: 07/07/21 08:59 Last Admin: 05/27/21 19:27 Dose: 1 tab Documented by: [id number] Admin: 05/27/21 08:53 Dose: 1 tab Documented by: [id number] Admin: 05/26/21 20:36 Dose: 1 tab Documented by: [id number] Admin: 05/26/21 08:13 Dose: 1 tab Documented by: [id number] Vitamin D (Cholecalciferol 1,000 Units 25 Mcg Tab) 2,000 units PO QPM LELIA Stop: 06/24/21 22:39 Last Admin: 05/27/21 19:27 Dose: 2,000 units Documented by: [id number] Admin: 05/26/21 20:39 Dose: 2,000 units Documented by: [id number] Admin: 05/25/21 23:42 Dose: 2,000 units Documented by: [id number] Discontinued Medications Bumetanide 1 mg/ Syringe 4 mls @ 4 mls/min IV ONE STA Stop: 05/25/21 21:02 Last Admin: 05/25/21 21:44 Dose: 4 mls/min Documented by: [id number] Bumetanide 0.5 mg/ Syringe 2 mls @ 4 mls/min IV ONE ONE Stop: 05/27/21 19:01 Last Admin: 05/27/21 19:26 Dose: 4 mls/min Documented by: [id number] Torsemide (Torsemide 20 Mg Tab) 40 mg PO 1930 ONE Stop: 05/26/21 19:31 Last Admin: 05/26/21 20:34 Dose: 40 mg Documented by: [id number] Medical Decision Making Differential Diagnosis Differential diagnosis includes CHF, fluid overload, kidney failure, electrolyte imbalance, among others. Home Medications Current Medication List: was personally reviewed by me Laboratory Data Attestation: I reviewed the patient's lab results. Result diagrams: 05/28/21 05:43 05/27/21 05:51 Lab Results 05/25/21 05/25/21 05/25/21 Range/Units 16:20 16:20 18:16 WBC 6.89 (4.8-10.8) K/uL RBC 3.79 L (4.7-6.1) M/uL Hgb 11.4 L (14.0-18.0) g/dL Hct 34.3 L (42-52) % MCV 90.5 (80-100) fL MCH 30.1 (25-34) pg MCHC 33.2 (32-36) g/dL RDW Std Deviation 47.3 H (36.4-46.3) fL RDW Coeff of Diane 14.8 H (11.5-14.5) % Plt Count 207 (130-400) K/uL MPV 10.6 H (7.4-10.4) fL Immature Gran % (Auto) 0.7 % Neut % (Auto) 50.9 % Lymph % (Auto) 36.1 % [place] % (Auto) 8.4 % Eos % (Auto) 3.3 % Baso % (Auto) 0.6 % Neut # (Auto) 3.50 (1.4-6.5) K/uL Lymph # (Auto) 2.49 (1.2-3.4) K/uL [place] # (Auto) 0.58 (0.11-0.59) K/uL Eos # (Auto) 0.23 (0-0.5) K/uL Baso # (Auto) 0.04 (0-0.2) K/uL Immature Gran # (Auto) 0.05 H (0.00-0.02) K/uL Sodium 134 L (136-145) mmol/L Potassium 4.0 (3.5-5.1) mmol/L Chloride 96 L (98-107) mmol/L Carbon Dioxide 35 H (21-32) mmol/L Anion Gap 3.0 (3-11) BUN 32 H (7-18) mg/dl Creatinine 2.46 H (0.6-1.4) mg/dl Est Cr Clr Drug Dosing 42.8 ml/min Est GFR ( Amer) 33.2 ml/min Est GFR (Non-Af Amer) 28.6 ml/min BUN/Creatinine Ratio 13.2 (10-20) Glucose 257 H (70-99) mg/dl Calcium 8.9 (8.5-10.1) mg/dl Total Bilirubin 0.5 (0.2-1) mg/dl AST 21 (15-37) U/L ALT 43 (12-78) U/L Alkaline Phosphatase 107 (45-117) U/L Troponin I < 0.015 (0-0.045) ng/ml NT-Pro-B Natriuret Pep 188 (0-900) pg/ml Total Protein 7.7 (6.4-8.2) gm/dl Albumin 3.6 (3.4-5.0) gm/dl Globulin 4.1 H (2.5-4.0) gm/dl Albumin/Globulin Ratio 0.9 (0.9-2) Urine Color Urine Appearance (Clear) Urine pH (4.5-7.5) Ur Specific [place] (1.000-1.030) Urine Protein (Negative) Urine Glucose (UA) (Negative) Urine Ketones (Negative) Urine Blood (Negative) Urine Nitrite (Negative) Urine Bilirubin (Negative) Urine Urobilinogen (Negative) Ur Leukocyte Esterase (Negative) COVID-19 Eval Order SARS-CoV-2 (PCR) (Negative) 05/25/21 05/25/21 05/25/21 Range/Units 19:55 19:55 19:55 WBC (4.8-10.8) K/uL RBC (4.7-6.1) M/uL Hgb (14.0-18.0) g/dL Hct (42-52) % MCV (80-100) fL MCH (25-34) pg MCHC (32-36) g/dL RDW Std Deviation (36.4-46.3) fL RDW Coeff of Diane (11.5-14.5) % Plt Count (130-400) K/uL MPV (7.4-10.4) fL Immature Gran % (Auto) % Neut % (Auto) % Lymph % (Auto) % [place] % (Auto) % Eos % (Auto) % Baso % (Auto) % Neut # (Auto) (1.4-6.5) K/uL Lymph # (Auto) (1.2-3.4) K/uL [place] # (Auto) (0.11-0.59) K/uL Eos # (Auto) (0-0.5) K/uL Baso # (Auto) (0-0.2) K/uL Immature Gran # (Auto) (0.00-0.02) K/uL Sodium (136-145) mmol/L Potassium (3.5-5.1) mmol/L Chloride (98-107) mmol/L Carbon Dioxide (21-32) mmol/L Anion Gap (3-11) BUN (7-18) mg/dl Creatinine (0.6-1.4) mg/dl Est Cr Clr Drug Dosing ml/min Est GFR ( Amer) ml/min Est GFR (Non-Af Amer) ml/min BUN/Creatinine Ratio (10-20) Glucose (70-99) mg/dl Calcium (8.5-10.1) mg/dl Total Bilirubin (0.2-1) mg/dl AST (15-37) U/L ALT (12-78) U/L Alkaline Phosphatase (45-117) U/L Troponin I (0-0.045) ng/ml NT-Pro-B Natriuret Pep (0-900) pg/ml Total Protein (6.4-8.2) gm/dl Albumin (3.4-5.0) gm/dl Globulin (2.5-4.0) gm/dl Albumin/Globulin Ratio (0.9-2) Urine Color Yellow Urine Appearance Clear (Clear) Urine pH 6.5 (4.5-7.5) Ur Specific [place] 1.012 (1.000-1.030) Urine Protein Negative (Negative) Urine Glucose (UA) 3+ H (Negative) Urine Ketones Negative (Negative) Urine Blood Negative (Negative) Urine Nitrite Negative (Negative) Urine Bilirubin Negative (Negative) Urine Urobilinogen Negative (Negative) Ur Leukocyte Esterase Negative (Negative) COVID-19 Eval Order Covid19 at [facility] SARS-CoV-2 (PCR) NEGATIVE (Negative) Imaging Data Attestation: I personally reviewed and interpreted this imaging study as follows: Radiologist's Impression: XR chest 1V portable CLINICAL HISTORY: sob, chf COMPARISON STUDY: Chest radiograph October 16, 2020. FINDINGS: Lung volumes are normal. Lungs are clear. There is no pneumothorax or pleural effusion. Cardiac size is normal. Mediastinal contours are normal. There is no evidence for pulmonary edema. IMPRESSION: No acute cardiopulmonary findings. MDM Narrative Continuous radiation monitor: Order was placed for continuous radiation monitor. Patient was placed on the radiation monitor. Patient was noted to be in normal sinus rhythm at an initial rate of 70 bpm. The patient is a 55-year-old male who presents today complaining of lower extremity swelling. Patient does have significant swelling of bilateral legs. He has been seen by Dr. Alvarez recently as an outpatient and had his diuretic dosage increased. Unfortunately, this has not helped the patient swelling and he now has an acute kidney injury. No evidence of CHF on chest x-ray. I did speak with nephrology, who did not make any recommendations regarding the patient's care. I do feel patient would benefit from an admission. The case was discussed with the [facility] service, who agreed to evaluate the patient for further care. Impression & Plan Acute kidney injury, Leg edema Discharge Plan Visit Data Chief Complaint: Swelling/Edema to Extremity Stated Complaint: EDEMA ED Provider: Fernando Quarles ED Midlevel Provider: Vivian Gudino Discharge Problem: Acute kidney injury, Leg edema Patient Disposition: Admitted As Inpatient Discharge Instructions Interventions: ED Discharge Assessment Last Done: 05/25/21 22:02
--- NOTE | 2021-05-25 16:20 | XRay Report ---
XR chest 1V portable CLINICAL HISTORY: sob, chf COMPARISON STUDY: Chest radiograph October 16, 2020. FINDINGS: Lung volumes are normal. Lungs are clear. There is no pneumothorax or pleural effusion. Car diac size is normal. Mediastinal contours are normal. There is no evidence for pulmonary edema. IMPRESSION: No acute cardiopulmonary findings. ACT 112: Negative or not required by law. Electronically signed by: Rafat Powell M.D. 05/25/2021 4:18 PM
[2021-05-25 16:38] LABS: Basophils # (auto) 0.04 K/uL (0-0.2); Basophils % (auto) 0.6 %; Eosinophils # (auto) 0.23 K/uL (0-0.5); Eosinophils % (auto) 3.3 %; Hematocrit (blood only) 34.3 % (42-52); Hemoglobin 11.4 g/dL (14.0-18.0); Immature Granulocytes # (auto) 0.05 K/uL (0.00-0.02); Immature Granulocytes % (auto) 0.7 %; Lymphocytes # (auto) 2.49 K/uL (1.2-3.4); Lymphocytes % (auto) 36.1 %; Mean Corpuscular Hemoglobin 30.1 pg (25-34); Mean Corpuscular Hgb Conc 33.2 g/dL (32-36); Mean Corpuscular Volume 90.5 fL (80-100); Mean Platelet Volume 10.6 fL (7.4-10.4); Monocytes # (auto) 0.58 K/uL (0.11-0.59); Monocytes % (auto) 8.4 %; Neutrophils % (auto) 50.9 %; Platelet Count 207 K/uL (130-400); RDW Coefficient of Variation 14.8 % (11.5-14.5); RDW Standard Deviation 47.3 fL (36.4-46.3); Red Blood Count 3.79 M/uL (4.7-6.1); White Blood Count 6.89 K/uL (4.8-10.8)
[2021-05-25 17:24] LABS: Alanine Aminotransferase 43 U/L (12-78); Albumin Globulin Ratio 0.9 (0.9-2); Albumin Level 3.6 gm/dl (3.4-5.0); Alkaline Phosphatase 107 U/L (45-117); BUN Creatinine Ratio 13.2 (10-20); Bilirubin,Total 0.5 mg/dl (0.2-1); Blood Urea Nitrogen 32 mg/dl (7-18); Calcium 8.9 mg/dl (8.5-10.1); Carbon Dioxide 35 mmol/L (21-32); Chloride 96 mmol/L (98-107); Creatinine Clr Calc Pharmacy 42.8 ml/min; Est GFR (African American) 33.2 ml/min; Est GFR (Non-African American) 28.6 ml/min; Globulin 4.1 gm/dl (2.5-4.0); Glucose 257 mg/dl (70-99); NT Pro B Type Natriuretic Pept 188 pg/ml (0-900); Sodium 134 mmol/L (136-145); Total Protein 7.7 gm/dl (6.4-8.2); Troponin I < 0.015 ng/ml (0-0.045)
--- NOTE | 2021-05-25 18:35 | Electrocardiogram Report ---
Test Reason : Blood Pressure : / mmHG Vent. Rate : 064 BPM Atrial Rate : 064 BPM P-R Int : 172 ms QRS Dur : 094 ms QT Int : 424 ms P-R-T Axes : 021 -35 025 degrees QTc Int : 437 ms Normal sinus rhythm Left axis deviation Incomplete right bundle branch block Abnormal ECG When compared with ECG of 16-OCT-2020 10:56, No significant change was found Confirmed by Gurjit Davila ([id number]) on 05/25/2021 6:35:20 PM Referred By: Confirmed By:Nikita Davila
[2021-05-25 20:46] LABS: Appearance Urine Clear (Clear); Bilirubin Urine Negative (Negative); Blood Urine Negative (Negative); Color Urine Yellow; Glucose Urine UA 3+ (Negative); Ketones Urine Negative (Negative); Leukocyte Esterase Urine Negative (Negative); Nitrite Urine Negative (Negative); Protein Urine Negative (Negative); Specific Gravity Urine 1.012 (1.000-1.030); Urobilinogen Urine Negative (Negative); pH Urine 6.5 (4.5-7.5)
--- NOTE | 2021-05-25 20:50 | History & Physical Report ---
Date of Service May 25, 2021 Assessment & Plan (1) Diastolic CHF: Predominant symptoms lower extremity edema- agree with recent HF notes, this is likely not just from his heart failure, however patient continues to not follow through with evaluation with vascular and lymph specialists - edema is soft and leading to vascular insufficiency and likely benefit from compression stockings - BNP not elevated but normally is not - Will give trial of 1mg IV Bumex tonight in light of COSMO and appears intravascularly euvolemic on CXR and exam - Continue with BB - Continue with statin - Possibility with gastroparesis agents are ineffective - Daily weights - HELDER hose and SCDs while in house - May benefit from compression wraps - Last ECHO 2018 EF 55-60% normal RV function- repeat this admission - evaluate RVSP (2) Stage 4 chronic kidney disease due to diabetes mellitus: As above multifactorial with diabetes, dietary indiscretion, HTN - Baseline appears to be 1.6-2.2- Urine protein and blood negative - Follow above response to IV diuresis- if improves continue diuresing - Avoid further nephrotoxic mediations if able - May need to renally dose gabapentin - Continue with his 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 (3) Acute kidney injury: As above COSMO type II chronically hyponatremic l (4) Dyslipidemia: Continue statin (5) Foot ulcer, left: Healing with good granulation to surrounding tissues - Continue bactrim - Aquacell AG daily and cover with gauze - no drainage or erythema (6) Morbid obesity: Continue with education consider referral to bariatric medicine (7) WHIT (obstructive sleep apnea): CPAP 8-14 autopap at home per patient - Reports compliance with this at home (8) Poorly controlled diabetes mellitus: Continue 50 units lantus nightly - Hold oral agents - Aspart sliding scale CF 30, with Ratio 1:15- likely need 20 to 10 - follow History of Present Illness Primary Care Provider: Marbella Gomez 55 YOM with past medical history of: CHF(HFpEF) , HLD , HTN , CKD, Obesity, DMII on insulin, CKD III, osteomyelitis of the right lower extremity. Patient is followed in the heart failure clinic and was seen there last week for this issue. The patient reports increase in lower extremity edema and reports 20-30 pound weight gain over the past month and unable to shed it. He has recently had his BUMEX dose increased up 2 mg BID which was increased to 3mg BID. He continues to report no change and that he has poor response to oral diuresing. He reports compliance with his CPAP and medications, but endorses dietary indiscretion frequently. [facility] and continued swelling of his lower extremities and was referred to the EMD. In the EMD he had routine labs drawn, ECG, and CXR performed and medicine team was notified for admission. Patient will be admitted with trial of IV diuresis and monitoring of his renal function and hemodynamics and weights. Allergies Allergy/AdvReac Type Severity Reaction Status Date / Time amitriptyline AdvReac Mild muscle Verified 05/25/21 17:31 twitching hydralazine AdvReac Mild Rash Verified 05/25/21 17:31 Home Medications Medication Instructions Recorded Confirmed Type atorvastatin 80 mg tablet 80 mg PO QPM 08/02/18 05/25/21 History magnesium oxide 400 mg PO HS 08/02/18 05/25/21 History metoprolol succinate 50 mg 150 mg PO QPM 08/02/18 05/25/21 History tablet,extended release 24 hr omega 5-yzk-cyn-fish oil 1,000 mg 1 cap PO QPM 02/20/19 05/25/21 History (120 mg-180 mg) capsule (Fish Oil) omeprazole 20 mg capsule,delayed 20 mg PO QPM #0 cap 08/14/19 05/25/21 Rx release cholecalciferol (vitamin D3) 25 2,000 units PO QPM tab 11/19/19 05/25/21 History mcg (1,000 unit) chewable tablet (Vitamin D3) cyanocobalamin (vitamin B-12) 1,000 mcg PO HS tab 11/19/19 05/25/21 History 1,000 mcg tablet (Vitamin B-12) gabapentin 600 mg tablet 600 mg PO TID 12/06/19 05/25/21 History polyethylene glycol 3350 17 17 gm PO BID PRN #510 gm 12/23/19 05/25/21 Rx gram/dose oral powder aspirin 81 mg tablet,delayed 81 mg PO BID tab 01/16/20 05/25/21 History release tramadol 50 mg tablet 50 mg PO Q6H PRN 02/21/20 05/25/21 History fluticasone propionate 50 1 spray INTRANASAL BID 05/05/20 05/25/21 History mcg/actuation nasal spray,suspension (Flonase Allergy Relief) insulin regular hum U-500 conc 500 50 unit SUBCUT TID 09/18/20 05/25/21 History unit/mL subcutaneous soln (Humulin R U-500 (Concentrated) Insulin) doxazosin 4 mg tablet 4 mg PO QPM 10/01/20 05/25/21 History empagliflozin 10 mg tablet 10 mg PO QPM 10/06/20 05/25/21 History (Jardiance) metformin 500 mg tablet 500 mg PO BID 10/06/20 05/25/21 History sulfamethoxazole 800 1 tab PO Q12 #60 tab 10/10/20 05/25/21 Rx mg-trimethoprim 160 mg tablet insulin glargine 100 unit/mL (3 50 unit SUBCUT PM 10/16/20 05/25/21 History mL) subcutaneous pen ferrous sulfate 325 mg (65 mg 325 mg PO QAM 02/03/21 05/25/21 History iron) tablet acetaminophen 500 mg tablet 1,000 mg PO Q6H PRN 02/12/21 05/25/21 History (Acetaminophen Extra Strength) bumetanide 1 mg tablet 1 mg PO .COMPLEX #60 tab 05/17/21 05/25/21 Rx bumetanide 2 mg tablet 3 mg PO BID tab 05/17/21 05/25/21 History melatonin 10 mg capsule 10 mg PO HS 05/17/21 05/25/21 History Past Med/Surg History Medical History Chronic back pain Chronic kidney disease Baseline creatine stabilized at 1.4 Following closely with nephrology. Depression Diabetes Diastolic CHF Hypervolemia secondary to high sodium intake- per 12/01/20 Heart Failure Cl[facility] visit- pt stable by phone- close to dry weight of 240 lb Volume overload seems to fluctuate- [facility] - fluid retention may be more multifactorial rather than cardiac Dyslipidemia Dyspnea WITH EXERTION GERD (gastroesophageal reflux disease) Hypertension Migraine Morbid obesity Osteoarthritis Sleep apnea cpap Temporomandibular joint disorder CLICKS ON OCC NO LOCKING Surgical History History of incision and drainage Left foot multiple with skin graft, last 09/2020 History of open reduction and internal fixation (ORIF) procedure Left ankle Bimalleolar Fracture (11/2019) History of placement of ear tubes right ear History of tonsillectomy and adenoidectomy Hx of cataract surgery right and left Hx of colonoscopy [place] teeth extracted Family History Father Diabetes Mother Diabetes Other Coronary heart disease Hypertension Denies family history of Crohn's disease Kidney disease Colorectal cancer Ulcerative colitis Social History Smoking Status: Former smoker Tobacco Type: Cigarettes Second Hand Exposure: No; Hx Alcohol Use: Yes Alcohol type: beer Hx Substance Use: No Preferred Language: Danish Communication Ability: Effective Ground [employer] Lines Person Required: No Beliefs That Will Affect Care: None marital status: Current Living Situation: Spouse Current Living Situation Comment: Four children, grown & in good health current occupational status: employed 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 Other Information That Helps Us Care for You: No Feels Safe at Home: Yes Safety Concerns: Feels Safe At This Time Assistive Devices: Cane and Glasses Review of Systems Review of Systems: REVIEW OF SYSTEMS: Constitutional: No fever, sweats or chills Eyes: No diplopia, no worsening or blurred vision ENT: normal hearing, no trouble swallowing Respiratory: (+) orthopnea, No cough, sputum, dyspnea at rest or on exertion, Cardiovascular: (+) leg swelling and weight gain, No chest pain, tightness or palpitations Abdomen: No pain, nausea, vomiting, diarrhea or constipation Musculoskeletal: (+) chronic back pain, calf pain, swelling Neurologic: No weakness, numbness/tingling, or balance problems Psychiatric: No anxiety or depression Skin: (+) chronic ulceration to left lateral foot, No rash or itch Physical Exam Physical Exam: PHYSICAL EXAM: General: awake, alert, no apparent distress Head: Normocephalic, atraumatic ENT: PERRL, EOMI, no pharyngeal exudate, mucous membranes moist Neuro: AAO x 3, speech clear and appropriate, strength intact bilaterally 5/5, sensation intact and equal all extremities and dermatomes, no pronator drift Chest: equal rise and fall of the chest, no accessory muscle use, no heaves or thrills, scattered crackles, on room air, Cardiac: Regular rate and rhythm, telemetry reviewed-NSR , skin warm dry, cap refill <3 seconds, peripheral pulses +2 no JVD, no murmur, Pitting edema to the just below the knees bilaterally GI: NABS x 4 quadrants, soft, nontender to palpation, no rebound, guarding or tenderness : obese, no body wall edema, spontaneously voiding, no pain, no CVA tenderness, Extremities: venous stasis ulcerations to bilateral lower extremities, calfs nontender to palpation Psych: Normal mood and affect Skin:well healing ulceration to left lateral foot, covered with aquacell. Results & Data Results & Data ([facility]) Vital Signs (Past 12 Hours) Vital Signs Temp Pulse Pulse Resp BP BP Pulse Ox 05/25/21 20:02 61 18 131/67 98 05/25/21 19:11 63 16 122/72 96 05/25/21 18:40 60 18 132/60 98 05/25/21 18:04 97 05/25/21 14:01 36.9 C 73 14 121/55 L 96 Laboratory Results Abnormal lab results 05/25/21 05/25/21 05/25/21 Range/Units 16:20 16:20 19:55 RBC 3.79 L (4.7-6.1) M/uL Hgb 11.4 L (14.0-18.0) g/dL Hct 34.3 L (42-52) % RDW Std Deviation 47.3 H (36.4-46.3) fL RDW Coeff of Diane 14.8 H (11.5-14.5) % MPV 10.6 H (7.4-10.4) fL Immature Gran # (Auto) 0.05 H (0.00-0.02) K/uL Sodium 134 L (136-145) mmol/L Chloride 96 L (98-107) mmol/L Carbon Dioxide 35 H (21-32) mmol/L BUN 32 H (7-18) mg/dl Creatinine 2.46 H (0.6-1.4) mg/dl Glucose 257 H (70-99) mg/dl Globulin 4.1 H (2.5-4.0) gm/dl Urine Glucose (UA) 3+ H (Negative) Diagnostic Findings Chest X-Ray 05/25/21 15:59 XR chest 1V portable CLINICAL HISTORY: sob, chf COMPARISON STUDY: Chest radiograph October 16, 2020. FINDINGS: Lung volumes are normal. Lungs are clear. There is no pneumothorax or pleural effusion. Cardiac size is normal. Mediastinal contours are normal. There is no evidence for pulmonary edema. IMPRESSION: No acute cardiopulmonary findings. ACT 112: Negative or not required by law. Electronically signed by: Rafat Powell M.D. 05/25/2021 4:18 PM Medications Administered none- Ordered 1mg BUMEX- pending administration ECG Additional Comments: Normal sinus rhythm Left axis deviation Incomplete right bundle branch block Abnormal ECG When compared with ECG of 16-OCT-2020 10:56, No significant change was found Code Status & VTE Plan Code Status CODE: FULL VTE: SCD's, Heparin 5000 subq TID VTE Prophylaxis Plan VTE Prophylaxis will be ordered: Yes Supervising Physician Co-Signing Physician Notes Attending addendum: I have physically seen this patient, have supervised the medical residents activities, and agree with the H&P unless as otherwise noted. Assessment and Plan: HFpEF/hypertension- Bumex 1 mg IV x1 tonight, and reassess further dosing in a.m. after response assessed Continue aspirin 81 mg twice daily, doxazosin 4 mg p.o. every evening, metoprolol succinate 150 mg p.o. every evening. Daily BMP and magnesium levels Diabetes mellitus- Continue insulin glargine 50 units subcu every evening Hold Jardiance and Metformin. Placed on Accu-Cheks before meals and at bedtime with NovoLog coverage per scale Check hemoglobin A1c COSMO on CKD stage IV- Creatinine 2.46 upon admission, with range 1.6-2.2 Present creatinine clearance around 44, need to be careful regarding reinstitution of Metformin Follow BMP daily, monitoring increase or decrease in creatinine associated with IV diuresis Left foot ulcer- Continue current dressing of Aquacel AG daily and cover with gauze Continue Bactrim Remaining orders and notations as noted PG Care Time/CCT Total # of Minutes Spent Total Time Spent with Patient: Total time spent is greater than 50% in coordination of care (as documented) at patient's floor/unit and/or counseling patient: Coding Level of Care Code 17220 Initial Inpt Care Lvl 3 Diagnoses Diastolic CHF I50.33 Heart failure chronicity: acute on chronic Stage 4 chronic kidney disease due to diabetes mellitus E11.22; N18.4 Acute kidney injury N17.9 Dyslipidemia E78.5 Foot ulcer, left L97.529 Morbid obesity E66.01 WHIT (obstructive sleep apnea) G47.33 Poorly controlled diabetes mellitus E11.65 (1) Diastolic CHF Heart failure chronicity: acute on chronic Qualified Code(s): I50.33 - Acute on chronic diastolic (congestive) heart failure
[2021-05-25] MEDS ORDERED: BUMETANIDE 1 MG in SYRINGE 0 ML IV STA (21:01)
[2021-05-25] MEDS ORDERED: DEXTROSE 50% 50 ML SYRINGE IV PRN (22:40)
[2021-05-25] MEDS ORDERED: GLUCOSE 40% GEL 15 GM TUBE PO PRN (22:40)
[2021-05-25] MEDS ORDERED: GLUCOSE 10 TABS/TUBE PO PRN (22:40)
[2021-05-25] MEDS ORDERED: CARBOHYDRATES FOR HYPOGLYCEMIA PO PRN (22:40)
[2021-05-25] MEDS ORDERED: GLUCAGON FOR INJ 1 MG VIAL SQ PRN (22:40)
[2021-05-25] MEDS: INSULIN ASPART 100 UNITS/ML 3 ML PEN SC SCH (23:37)
[2021-05-25] MEDS: INSULIN GLARGINE SOLOSTAR 100 UNITS/ML 3 ML PEN SQ SCH (23:37)
[2021-05-25] MEDS: PANTOprazole 40 MG TAB PO SCH (23:41)
[2021-05-25] MEDS: GABAPENTIN 600 MG TAB PO SCH (23:41)
[2021-05-25] MEDS: METOPROLOL SUCC 50MG EXT REL TAB PO SCH (23:41)
[2021-05-25] MEDS: HEPARIN SOD 5,000 UNIT/0.5 ML VIAL SQ SCH (23:41)
[2021-05-25] MEDS: FLUTICASONE PROPIONATE NA SPR 16 GM BTL NAE SCH (23:41)
[2021-05-25] MEDS: ASPIRIN 81 MG ECTAB PO SCH (23:42)
[2021-05-25] MEDS: ATORVASTATIN 40 MG TAB PO SCH (23:42)
[2021-05-25] MEDS: CHOLECALCIFEROL 1,000 UNITS 25 MCG TAB PO SCH (23:42)
[2021-05-25] MEDS: MELATONIN 3 MG TAB PO SCH (23:43)
[2021-05-26 04:09] LABS: Basophils # (auto) 0.03 K/uL (0-0.2); Basophils % (auto) 0.4 %; Eosinophils # (auto) 0.22 K/uL (0-0.5); Eosinophils % (auto) 3.2 %; Hematocrit (blood only) 32.4 % (42-52); Hemoglobin 10.6 g/dL (14.0-18.0); Immature Granulocytes # (auto) 0.05 K/uL (0.00-0.02); Immature Granulocytes % (auto) 0.7 %; Lymphocytes % (auto) 33.5 %; Mean Corpuscular Hemoglobin 29.6 pg (25-34); Mean Corpuscular Hgb Conc 32.7 g/dL (32-36); Mean Corpuscular Volume 90.5 fL (80-100); Mean Platelet Volume 10.4 fL (7.4-10.4); Monocytes # (auto) 0.66 K/uL (0.11-0.59); Monocytes % (auto) 9.6 %; Neutrophils % (auto) 52.6 %; Platelet Count 197 K/uL (130-400); RDW Coefficient of Variation 14.8 % (11.5-14.5); Red Blood Count 3.58 M/uL (4.7-6.1); White Blood Count 6.86 K/uL (4.8-10.8)
[2021-05-26 04:37] LABS: BUN Creatinine Ratio 15.5 (10-20); Calcium 8.8 mg/dl (8.5-10.1); Est GFR (African American) 34.7 ml/min; Est GFR (Non-African American) 29.9 ml/min; Magnesium 2.7 mg/dl (1.8-2.4); Potassium 4.3 mmol/L (3.5-5.1)
[2021-05-26] MEDS: HEPARIN SOD 5,000 UNIT/0.5 ML VIAL SQ SCH ×3 (05:45→20:45)
--- NOTE | 2021-05-26 07:46 | Hospitalist Progress Note ---
Date of Service May 26, 2021 Assessment & Plan (1) Diastolic CHF: Predominant symptoms lower extremity edema- agree with recent HF notes, this is likely not just from his heart failure, however patient continues to not follow through with evaluation with vascular and lymph specialists - edema is soft and leading to vascular insufficiency and likely benefit from compression stockings - BNP not elevated but normally is not - Continue with BB - Continue with statin - Daily weights - HELDER hose and SCDs while in house - May benefit from compression wraps - Last ECHO 2018 EF 55-60% normal RV function- pending repeat We will attempt to transition to torsemide watching his renal function (2) Stage 4 chronic kidney disease due to diabetes mellitus: As above multifactorial with diabetes, dietary indiscretion, HTN - Baseline appears to be 1.6-2.2- Urine protein and blood negative - Follow above response to IV diuresis- if improves continue diuresing -Try torsemide to help his fluid issues from heart failure preserved ejection fraction and lower extremity edema with discomfort and difficulty ambulating - Continue with his 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 (3) Acute kidney injury: As above COSMO type II chronically hyponatremic l (4) Dyslipidemia: Continue statin (5) Foot ulcer, left: Healing with good granulation to surrounding tissues - Continue bactrim - Aquacell AG daily and cover with gauze - no drainage or erythema (6) Morbid obesity: Continue with education consider referral to bariatric medicine (7) WHIT (obstructive sleep apnea): CPAP 8-14 autopap at home per patient - Reports compliance with this at home (8) Poorly controlled diabetes mellitus: Continue 50 units lantus nightly - Hold oral agents - Aspart sliding scale CF 30, with Ratio 1:15- likely need 20 to 10 - follow Admission and Anticipated Discharge Date Admission Date: May 25, 2021 Subjective pt is not making direct eye contact he does feel somewhat improved Review of Systems Review of Systems: Mild distress and fatigue no headache, no visual changes no speech or swallowing issues no chest pain, pressure or palpitations Dyspnea on exertion, cough or wheezes no abdominal pain, nausea or vomiting, diarrhea or constipation no dysuria, hematuria or frequency no focal joint pain difficult lower extremity swelling no back pain, CVA tenderness or radicular pain no bruising, bleeding or rashes no focal signs of weakness or numbness or altered sensation no complaints of anxiety or depression.. Physical Exam Physical Exam: The patient appeared well nourished and normally developed. Vital signs as documented. Head exam is normocephalic atraumatic Neck is without JVD, thyromegaly, or carotid bruits. Lungs are clear to auscultation, no focal loss of breath sounds Cardiac exam, Rhythm is regular.. No murmurs, rubs or gallops. Abdominal exam reveals normal bowel sounds, soft non tender, no masses Extremities are nonedematous and both pedal pulses are present Neurologic exam is alert and oriented, no focal loss of strength or sensation Skin is without bruises or rashes Psychologically is without concerns for anxiety or depression Results & Data Results & Data ([facility]) Vital Signs (Past 12 Hours) Vital Signs Temp Pulse Pulse Resp BP BP Pulse Ox 05/26/21 06:11 97.9 F 18 134/73 96 05/25/21 22:25 97.9 F 71 18 118/71 96 05/25/21 22:02 71 18 124/68 96 05/25/21 21:00 66 18 137/78 96 05/25/21 20:02 61 18 131/67 98 PG Care Time/CCT Total # of Minutes Spent Total Time Spent with Patient: Total time spent is greater than 50% in coordination of care (as documented) at patient's floor/unit and/or counseling patient: Coding Level of Care Code 43059 Subseq Hosp Care Lvl 2 Diagnoses Diastolic CHF I50.33 Heart failure chronicity: acute on chronic Stage 4 chronic kidney disease due to diabetes mellitus E11.22; N18.4 Acute kidney injury N17.9 Dyslipidemia E78.5 Foot ulcer, left L97.529 Morbid obesity E66.01 WHIT (obstructive sleep apnea) G47.33 Poorly controlled diabetes mellitus E11.65 (1) Diastolic CHF Heart failure chronicity: acute on chronic Qualified Code(s): I50.33 - Acute on chronic diastolic (congestive) heart failure
[2021-05-26] MEDS: FLUTICASONE PROPIONATE NA SPR 16 GM BTL NAE SCH ×2 (08:12→20:39)
[2021-05-26] MEDS: ASPIRIN 81 MG ECTAB PO SCH ×2 (08:12→20:39)
[2021-05-26] MEDS: GABAPENTIN 600 MG TAB PO SCH ×3 (08:12→20:39)
[2021-05-26] MEDS: FERROUS SULFATE 325 MG TAB PO SCH (08:13)
[2021-05-26] MEDS: SULFAMETHOXAZOLE/TRIMETHOPRIM DS 800/160MG TAB PO SCH ×2 (08:13→20:36)
[2021-05-26] MEDS: INSULIN ASPART 100 UNITS/ML 3 ML PEN SC SCH ×4 (09:35→20:42)
--- NOTE | 2021-05-26 16:38 | XCELERA ---
[id number]
[2021-05-26] MEDS ORDERED: TORSEMIDE 20 MG TAB PO ONE (19:30)
[2021-05-26] MEDS: PANTOprazole 40 MG TAB PO SCH (20:36)
[2021-05-26] MEDS: METOPROLOL SUCC 50MG EXT REL TAB PO SCH (20:36)
[2021-05-26] MEDS: CHOLECALCIFEROL 1,000 UNITS 25 MCG TAB PO SCH (20:39)
[2021-05-26] MEDS: ATORVASTATIN 40 MG TAB PO SCH (20:39)
[2021-05-26] MEDS: MELATONIN 3 MG TAB PO SCH (20:40)
[2021-05-26] MEDS: INSULIN GLARGINE SOLOSTAR 100 UNITS/ML 3 ML PEN SQ SCH (20:44)
[2021-05-27 06:14] LABS: Basophils # (auto) 0.06 K/uL (0-0.2); Basophils % (auto) 0.9 %; Eosinophils # (auto) 0.32 K/uL (0-0.5); Eosinophils % (auto) 4.7 %; Hematocrit (blood only) 31.3 % (42-52); Hemoglobin 10.5 g/dL (14.0-18.0); Immature Granulocytes # (auto) 0.03 K/uL (0.00-0.02); Immature Granulocytes % (auto) 0.4 %; Lymphocytes # (auto) 2.55 K/uL (1.2-3.4); Lymphocytes % (auto) 37.7 %; Mean Corpuscular Hemoglobin 30.4 pg (25-34); Mean Corpuscular Hgb Conc 33.5 g/dL (32-36); Mean Corpuscular Volume 90.7 fL (80-100); Mean Platelet Volume 10.3 fL (7.4-10.4); Monocytes # (auto) 0.58 K/uL (0.11-0.59); Monocytes % (auto) 8.6 %; Neutrophils # (auto) 3.22 K/uL (1.4-6.5); Neutrophils % (auto) 47.7 %; Platelet Count 206 K/uL (130-400); RDW Standard Deviation 48.1 fL (36.4-46.3); Red Blood Count 3.45 M/uL (4.7-6.1); White Blood Count 6.76 K/uL (4.8-10.8)
[2021-05-27] MEDS: HEPARIN SOD 5,000 UNIT/0.5 ML VIAL SQ SCH ×3 (06:29→21:03)
[2021-05-27 06:44] LABS: BUN Creatinine Ratio 15.1 (10-20); Calcium 9.1 mg/dl (8.5-10.1); Creatinine Clr Calc Pharmacy 45.7 ml/min; Est GFR (African American) 36.7 ml/min; Est GFR (Non-African American) 31.7 ml/min; Magnesium 2.8 mg/dl (1.8-2.4); Potassium 4.4 mmol/L (3.5-5.1)
[2021-05-27] MEDS: ASPIRIN 81 MG ECTAB PO SCH ×2 (08:52→19:29)
[2021-05-27] MEDS: SULFAMETHOXAZOLE/TRIMETHOPRIM DS 800/160MG TAB PO SCH ×2 (08:53→19:27)
[2021-05-27] MEDS: FERROUS SULFATE 325 MG TAB PO SCH (08:53)
[2021-05-27] MEDS: GABAPENTIN 600 MG TAB PO SCH ×3 (08:53→19:28)
[2021-05-27] MEDS: TORSEMIDE 20 MG TAB PO SCH (08:54)
[2021-05-27] MEDS: INSULIN ASPART 100 UNITS/ML 3 ML PEN SC SCH ×4 (08:55→21:03)
[2021-05-27] MEDS: FLUTICASONE PROPIONATE NA SPR 16 GM BTL NAE SCH ×2 (10:03→19:29)
--- NOTE | 2021-05-27 18:42 | Hospitalist Progress Note ---
Date of Service May 27, 2021 Assessment & Plan (1) Diastolic CHF: Plan: Repeat echocardiogram supports diastolic dysfunction. Patient's been educated in the past has been on multiple different diuretics without success. Continuing torsemide with boluses of Bumex in between to try to continue to promote urine output. Good daily weight loss and it negative urine outputs have been persistent. Lower extremity compression wraps brought from home and applied (2) Stage 4 chronic kidney disease due to diabetes mellitus: Plan: Renal function appears to be stable secondary to long-term diabetes continue to watch as diuresis continues (3) Acute kidney injury: Plan: Patient's renal function may be a new set point (4) Dyslipidemia: Plan: Atorvastatin 80 mg (5) Foot ulcer, left: Plan: Is on Bactrim for foot ulcer. (6) Morbid obesity: Plan: Certainly impacts could lower venous stasis and persistent lower extremity edema (7) WHIT (obstructive sleep apnea): Plan: 8-14 AutoPap home per patient (8) Poorly controlled diabetes mellitus: Plan: Basal bolus insulin taking over for home regiment Admission and Anticipated Discharge Date Admission Date: May 25, 2021 Subjective pt is not making direct eye contact he does feel somewhat improved, he wants to have more urine output, his family has brought in leg wraps and nursing did apply them Review of Systems Review of Systems: Mild distress and fatigue no headache, no visual changes no speech or swallowing issues no chest pain, pressure or palpitations Dyspnea on exertion, cough or wheezes no abdominal pain, nausea or vomiting, diarrhea or constipation no dysuria, hematuria or frequency no focal joint pain difficult lower extremity swelling no back pain, CVA tenderness or radicular pain no bruising, bleeding or rashes no focal signs of weakness or numbness or altered sensation no complaints of anxiety or depression.. Physical Exam Physical Exam: The patient appeared well nourished and normally developed. Vital signs as documented. Head exam is normocephalic atraumatic Neck is without JVD, thyromegaly, or carotid bruits. Lungs are clear to auscultation, no focal loss of breath sounds Cardiac exam, Rhythm is regular.. No murmurs, rubs or gallops. Abdominal exam reveals normal bowel sounds, soft non tender, no masses Extremities are nonedematous and both pedal pulses are present Neurologic exam is alert and oriented, no focal loss of strength or sensation Skin is without bruises or rashes Psychologically is without concerns for anxiety or depression Results & Data Results & Data ([facility]) Vital Signs (Past 12 Hours) Vital Signs Temp Pulse Resp BP Pulse Ox 05/27/21 15:44 97.9 F 56 L 18 146/73 H 97 05/27/21 07:50 98.1 F 56 L 20 152/79 H 95 PG Care Time/CCT Total # of Minutes Spent Total Time Spent with Patient: Total time spent is greater than 50% in coordination of care (as documented) at patient's floor/unit and/or counseling patient: Coding Level of Care Code 00805 Subseq Hosp Care Lvl 2 Diagnoses Diastolic CHF I50.33 Heart failure chronicity: acute on chronic Stage 4 chronic kidney disease due to diabetes mellitus E11.22; N18.4 Acute kidney injury N17.9 Dyslipidemia E78.5 Foot ulcer, left L97.529 Morbid obesity E66.01 WHIT (obstructive sleep apnea) G47.33 Poorly controlled diabetes mellitus E11.65 (1) Diastolic CHF Heart failure chronicity: acute on chronic Qualified Code(s): I50.33 - Acute on chronic diastolic (congestive) heart failure
[2021-05-27] MEDS ORDERED: BUMETANIDE 0.5 MG in SYRINGE 0 ML IV ONE (19:00)
[2021-05-27] MEDS: CHOLECALCIFEROL 1,000 UNITS 25 MCG TAB PO SCH (19:27)
[2021-05-27] MEDS: ATORVASTATIN 40 MG TAB PO SCH (19:28)
[2021-05-27] MEDS: PANTOprazole 40 MG TAB PO SCH (19:28)
[2021-05-27] MEDS: METOPROLOL SUCC 50MG EXT REL TAB PO SCH (19:32)
[2021-05-27] MEDS: MELATONIN 3 MG TAB PO SCH (21:03)
[2021-05-27] MEDS: INSULIN GLARGINE SOLOSTAR 100 UNITS/ML 3 ML PEN SQ SCH (21:03)
[2021-05-28] MEDS: ACETAMINOPHEN 500 MG TAB PO PRN ×2 (04:14→21:50)
[2021-05-28] MEDS: HEPARIN SOD 5,000 UNIT/0.5 ML VIAL SQ SCH ×3 (05:33→21:51)
[2021-05-28 06:36] LABS: Basophils # (auto) 0.04 K/uL (0-0.2); Basophils % (auto) 0.6 %; Eosinophils # (auto) 0.32 K/uL (0-0.5); Eosinophils % (auto) 4.5 %; Hematocrit (blood only) 32.4 % (42-52); Hemoglobin 10.8 g/dL (14.0-18.0); Immature Granulocytes # (auto) 0.03 K/uL (0.00-0.02); Immature Granulocytes % (auto) 0.4 %; Lymphocytes # (auto) 2.45 K/uL (1.2-3.4); Lymphocytes % (auto) 34.4 %; Mean Corpuscular Hemoglobin 30.1 pg (25-34); Mean Corpuscular Hgb Conc 33.3 g/dL (32-36); Mean Corpuscular Volume 90.3 fL (80-100); Mean Platelet Volume 10.4 fL (7.4-10.4); Monocytes # (auto) 0.63 K/uL (0.11-0.59); Monocytes % (auto) 8.8 %; Neutrophils # (auto) 3.65 K/uL (1.4-6.5); Neutrophils % (auto) 51.3 %; Platelet Count 206 K/uL (130-400); RDW Coefficient of Variation 15.1 % (11.5-14.5); RDW Standard Deviation 48.2 fL (36.4-46.3); Red Blood Count 3.59 M/uL (4.7-6.1); White Blood Count 7.12 K/uL (4.8-10.8)
[2021-05-28 06:58] LABS: BUN Creatinine Ratio 15.4 (10-20); Calcium 9.3 mg/dl (8.5-10.1); Creatinine Clr Calc Pharmacy 42.8 ml/min; Est GFR (African American) 34.3 ml/min; Est GFR (Non-African American) 29.6 ml/min; Magnesium 2.7 mg/dl (1.8-2.4); Potassium 4.5 mmol/L (3.5-5.1)
--- NOTE | 2021-05-28 08:46 | Hospitalist Progress Note ---
Date of Service May 28, 2021 Assessment & Plan (1) Diastolic CHF: Plan: Repeat echocardiogram supports diastolic dysfunction. Patient's been educated in the past has been on multiple different diuretics without success. Continuing torsemide with boluses of Bumex in between to try to continue to promote urine output --> Scheduled torsemide 40mg daily. Got 0.5mg bumex last evening. --> Net negative 3.2L. Will give additional 1mg PO bumex today -- likely can uti lize prn at discharge Weight currently 118.2kg (dry weight ~230lb) May need increased dose of torsemide prn vs bumex at discharge but will need close monitoring given kidney function (will also need to alter DM medications as below) Cr 2.39 but suspect higher baseline currently Continue to monitor. Will need f/u CHF clinic at discharge Continue metoprolol succinate 150mg daily, Lower extremity compression wraps brought from home and applied -- continued (2) Stage 4 chronic kidney disease due to diabetes mellitus: Plan: Renal function appears to be stable secondary to long-term diabetes continue to watch as diuresis continues Cr 2.26 --2.39 but continued to remain volume overloaded Bumex/torsemide as above BMP in AM (3) Acute kidney injury: Plan: Patient's renal function may be a new set point Recs for f/u with Nephrology at discharge (4) Dyslipidemia: Plan: Atorvastatin 80 mg (5) Foot ulcer, left: Plan: Is on Bactrim for foot ulcer -- cx hx with finegoldia magna, staph aureus, Enterobacter cloacae Wound RN consulted No evidence of infection currently (6) Morbid obesity: Plan: Certainly impacts could lower venous stasis and persistent lower extremity edema (7) WHIT (obstructive sleep apnea): Plan: 8-14 AutoPap home per patient -- has been faithful with use while inpatient and with napping (8) Poorly controlled diabetes mellitus: Plan: Holding home metformin and Jardiance --> will need to be cautious about restarting the metformin given kidney function Basal bolus insulin taking over for home regimen --> tightened ISS as sugars persistently in the upper 200s continue to monitor Lantus 50u SQ PM continued Will check A1c with Am labs, development educator if needed (prior A1c was 10.0 in January 2021) Continue to monitor Vit D Deficiency --> Continue supplementation DVT Prophylaxis --Heparin SQ while inpatient Dispo: continued inpatient stay Admission and Anticipated Discharge Date Admission Date: May 25, 2021 Subjective Patient evaluated late this morning. Doing well. Making good urine. Weight down, but he is disappointed not by much more. No cough, sputum production. He states he would be more comfortable at discharge at weight 235-238lb, dry weight closer to 230lb. Discussed may not be at goal but as long as continues diuresis and weight decreasing that we may be able to get out in next 1-2 days. Will give extra dose of bumex this afternoon. Melatonin for sleep but will give dose of trazodone tonight to see if additional help. Has been utilizing CPAP nightly with good compliance. No fever, chills, chest pain, shortness of breath (was with exertion with extra weight), abdominal pain, nausea, vomiting or dysuria at this time. Questions/concerns addressed. Review of Systems Review of Systems: All systems reviewed & are unremarkable except as noted in HPI & below Physical Exam Physical Exam: The patient appeared well nourished and normally developed, resting comfortably on his side with CPAP on. WD/WN, NAD HEENT: Atraumatic, normocephalic. moist mm, uremic florez, dry skin to face Resp: CTAB, no wheezes, bibasilar crackles (improved with deep cough), no accessory muscle use CV: RRR, no m/r/g, 2+ edema b/l LE Abd: +BS throughout, distended, non-tender, no guarding or rigidity Ext: b/l LE edema, pulses present bilaterally, ulcer to L lateral foot covered with aquacell, non-tender Psych: AOx3 Results & Data Results & Data ([facility]) Vital Signs (Past 12 Hours) Vital Signs Temp Pulse Resp BP Pulse Ox 05/28/21 07:25 36.7 C 60 16 146/78 H 94 05/27/21 22:14 36.6 C 59 L 18 134/81 97 Laboratory Results 05/28/21 05/28/21 05/28/21 Range/Units 08:22 05:43 05:43 WBC 7.12 (4.8-10.8) K/uL RBC 3.59 L (4.7-6.1) M/uL Hgb 10.8 L (14.0-18.0) g/dL Hct 32.4 L (42-52) % MCV 90.3 (80-100) fL MCH 30.1 (25-34) pg MCHC 33.3 (32-36) g/dL RDW Std Deviation 48.2 H (36.4-46.3) fL RDW Coeff of Diane 15.1 H (11.5-14.5) % Plt Count 206 (130-400) K/uL MPV 10.4 (7.4-10.4) fL Immature Gran % (Auto) 0.4 % Neut % (Auto) 51.3 % Lymph % (Auto) 34.4 % Dewey % (Auto) 8.8 % Eos % (Auto) 4.5 % Baso % (Auto) 0.6 % Neut # (Auto) 3.65 (1.4-6.5) K/uL Lymph # (Auto) 2.45 (1.2-3.4) K/uL Dewey # (Auto) 0.63 H (0.11-0.59) K/uL Eos # (Auto) 0.32 (0-0.5) K/uL Baso # (Auto) 0.04 (0-0.2) K/uL Immature Gran # (Auto) 0.03 H (0.00-0.02) K/uL Sodium 132 L (136-145) mmol/L Potassium 4.5 (3.5-5.1) mmol/L Chloride 97 L (98-107) mmol/L Carbon Dioxide 30 (21-32) mmol/L Anion Gap 5.0 (3-11) BUN 37 H (7-18) mg/dl Creatinine 2.39 H (0.6-1.4) mg/dl Est Cr Clr Drug Dosing 42.8 ml/min Est GFR ( Amer) 34.3 ml/min Est GFR (Non-Af Amer) 29.6 ml/min BUN/Creatinine Ratio 15.4 (10-20) Glucose 243 H (70-99) mg/dl POC Glucose 287 H (70-99) mg/dl Calcium 9.3 (8.5-10.1) mg/dl Magnesium 2.7 H (1.8-2.4) mg/dl 07/05/27/21 05/27/21 Range/Units 20:39 16:51 12:23 WBC (4.8-10.8) K/uL RBC (4.7-6.1) M/uL Hgb (14.0-18.0) g/dL Hct (42-52) % MCV (80-100) fL MCH (25-34) pg MCHC (32-36) g/dL RDW Std Deviation (36.4-46.3) fL RDW Coeff of Diane (11.5-14.5) % Plt Count (130-400) K/uL MPV (7.4-10.4) fL Immature Gran % (Auto) % Neut % (Auto) % Lymph % (Auto) % Dewey % (Auto) % Eos % (Auto) % Baso % (Auto) % Neut # (Auto) (1.4-6.5) K/uL Lymph # (Auto) (1.2-3.4) K/uL Dewey # (Auto) (0.11-0.59) K/uL Eos # (Auto) (0-0.5) K/uL Baso # (Auto) (0-0.2) K/uL Immature Gran # (Auto) (0.00-0.02) K/uL Sodium (136-145) mmol/L Potassium (3.5-5.1) mmol/L Chloride (98-107) mmol/L Carbon Dioxide (21-32) mmol/L Anion Gap (3-11) BUN (7-18) mg/dl Creatinine (0.6-1.4) mg/dl Est Cr Clr Drug Dosing ml/min Est GFR ( Amer) ml/min Est GFR (Non-Af Amer) ml/min BUN/Creatinine Ratio (10-20) Glucose (70-99) mg/dl POC Glucose 266 H 296 H 282 H (70-99) mg/dl Calcium (8.5-10.1) mg/dl Magnesium (1.8-2.4) mg/dl PG Care Time/CCT Total # of Minutes Spent Total Time Spent with Patient: Total time spent is greater than 50% in coordination of care (as documented) at patient's floor/unit and/or counseling patient: Coding Level of Care Code 77065 Subseq Hosp Care Lvl 2 Diagnoses Diastolic CHF I50.33 Heart failure chronicity: acute on chronic Stage 4 chronic kidney disease due to diabetes mellitus E11.22; N18.4 Acute kidney injury N17.9 Dyslipidemia E78.5 Foot ulcer, left L97.529 Morbid obesity E66.01 WHIT (obstructive sleep apnea) G47.33 Poorly controlled diabetes mellitus E11.65 (1) Diastolic CHF Heart failure chronicity: acute on chronic Qualified Code(s): I50.33 - Acute on chronic diastolic (congestive) heart failure
[2021-05-28] MEDS: FLUTICASONE PROPIONATE NA SPR 16 GM BTL NAE SCH ×2 (08:57→21:50)
[2021-05-28] MEDS: ASPIRIN 81 MG ECTAB PO SCH ×2 (08:57→21:46)
[2021-05-28] MEDS: SULFAMETHOXAZOLE/TRIMETHOPRIM DS 800/160MG TAB PO SCH ×2 (08:58→21:49)
[2021-05-28] MEDS: FERROUS SULFATE 325 MG TAB PO SCH (08:58)
[2021-05-28] MEDS: GABAPENTIN 600 MG TAB PO SCH ×3 (08:58→21:47)
[2021-05-28] MEDS: TORSEMIDE 20 MG TAB PO SCH ×2 (08:58→21:50)
[2021-05-28] MEDS: INSULIN ASPART 100 UNITS/ML 3 ML PEN SC SCH ×4 (09:01→21:54)
[2021-05-28] MEDS ORDERED: BUMETANIDE 1 MG TAB PO ONE (11:39)
[2021-05-28] MEDS ORDERED: LANTUS PER UNIT CHARGE SQ STA (19:07)
[2021-05-28] MEDS ORDERED: PHARMACY GLYCEMIC MGMT CONSULT PRN (19:20)
[2021-05-28] MEDS: CHOLECALCIFEROL 1,000 UNITS 25 MCG TAB PO SCH (21:47)
[2021-05-28] MEDS: METOPROLOL SUCC 50MG EXT REL TAB PO SCH (21:47)
[2021-05-28] MEDS: PANTOprazole 40 MG TAB PO SCH (21:48)
[2021-05-28] MEDS: ATORVASTATIN 40 MG TAB PO SCH (21:48)
[2021-05-28] MEDS: traZODone HCL 50 MG TAB PO SCH (21:49)
[2021-05-28] MEDS: INSULIN GLARGINE SOLOSTAR 100 UNITS/ML 3 ML PEN SQ SCH (21:53)
[2021-05-28] MEDS: MELATONIN 3 MG TAB PO SCH (21:55)
[2021-05-29] MEDS: HEPARIN SOD 5,000 UNIT/0.5 ML VIAL SQ SCH ×3 (05:57→21:20)
[2021-05-29 07:07] LABS: Hematocrit (blood only) 32.6 % (42-52); Hemoglobin 10.9 g/dL (14.0-18.0); Mean Corpuscular Hemoglobin 30.5 pg (25-34); Mean Corpuscular Hgb Conc 33.4 g/dL (32-36); Mean Corpuscular Volume 91.3 fL (80-100); Mean Platelet Volume 10.6 fL (7.4-10.4); Platelet Count 208 K/uL (130-400); RDW Coefficient of Variation 15.1 % (11.5-14.5); RDW Standard Deviation 48.7 fL (36.4-46.3); Red Blood Count 3.57 M/uL (4.7-6.1); White Blood Count 7.19 K/uL (4.8-10.8)
[2021-05-29 07:33] LABS: Albumin Level 3.4 gm/dl (3.4-5.0); BUN Creatinine Ratio 15.4 (10-20); Calcium 8.8 mg/dl (8.5-10.1); Creatinine Clr Calc Pharmacy 36.6 ml/min; Est GFR (African American) 28.6 ml/min; Est GFR (Non-African American) 24.7 ml/min; Potassium 4.4 mmol/L (3.5-5.1)
[2021-05-29 07:36] LABS: Albumin Globulin Ratio 0.9 (0.9-2); Bilirubin,Total 0.5 mg/dl (0.2-1); Globulin 3.8 gm/dl (2.5-4.0); Total Protein 7.2 gm/dl (6.4-8.2)
[2021-05-29 07:42] LABS: Estimated Average Glucose 217 mg/dl; Hemoglobin A1C 9.2 % (4.5-5.6)
--- NOTE | 2021-05-29 09:08 | Hospitalist Progress Note ---
Date of Service May 29, 2021 Assessment & Plan (1) Diastolic CHF: Plan: 05/26/21 Repeat echocardiogram supports diastolic dysfunction: Echocardiogram: LVEF 55-60%, mild concentric LVH, grade II diastolic dysfunction, normal RVSP Wt 124.6kg on admission with dry weight closer to 105kg) Patient's been educated in the past has been on multiple different diuretics without success and does have frequent dietary indiscretions at home due to financial strain/processed foods Nephrology consulted -- needs IV diuresis and recs for dose of metolazone 2.5mg today and switch diuretic to Bumex 2mg IV BID Net -1.8L last 24 hours. Net cumulative -11L Continue to monitor I&O, daily weight (currently 117kg/257lb, dry weight closer to 230lb reported) Educated on low salt diet Cr 2.78 -- will need to monitor closely but suspect will have to accept some worsening renal failure at least temporarily and will possible have higher baseline moving forward Continued on his metoprolol succinate 150mg daily Will need f/u CHF clinic at discharge Lower extremity compression wraps brought from home and applied -- continued (2) Stage 4 chronic kidney disease due to diabetes mellitus: Plan: Renal function appears to be stable secondary to long-term diabetes continue to watch as diuresis continues Nephrology on consult as above -- also ordered iron studies BMP in AM (3) Acute kidney injury: Plan: Patient's renal function may be a new set point Nephrology as above (4) Dyslipidemia: Plan: Atorvastatin 80 mg (5) Foot ulcer, left: Plan: Is on Bactrim for foot ulcer -- cx hx with finegoldia magna, staph aureus, Enterobacter cloacae Wound RN consulted No evidence of infection currently (6) Morbid obesity: Plan: Certainly impacts could lower venous stasis and persistent lower extremity edema (7) WHIT (obstructive sleep apnea): Plan: 8-14 AutoPap home per patient -- has been faithful with use while inpatient and with napping (8) Poorly controlled diabetes mellitus: Plan: A1c 9.2 from prior value 10.0 Holding home metformin and Jardiance Basal bolus insulin taking over for home regimen --> tightened ISS as sugars persistently elevated. Was managed on basal/bolus last admission Pharmacy consulted for glycemic management BSgs improving *Need to be cautious about metformin at d/c given his worsening CKD Continue to monitor Vit D Deficiency --> Continue supplementation. Prior level May 17 14.8 with elevated PTH 150. Nephrology on consult as above DVT Prophylaxis --Heparin SQ while inpatient Dispo: continued inpatient stay Admission and Anticipated Discharge Date Admission Date: May 25, 2021 Subjective Patient evaluated this morning. Doing well. Had some knee pain yesterday and inquiring about his tramadol and discussed will check and order if not on MAR. Discussed nephrology consultation. He notes he has been on metolazone at times in the past. Will use with bumex 2mg IV BID while inpatient. Continue to monitor diuresis. May need to accept worsening Cr at least temporarily and he is aware of this as well and agreeable to current plan. BSGs improving today with adjustments to his sliding scale. No fever, chills, chest pain, shortness of breath, abdominal pain, nausea or vomiting. To have stockings changed today. Had small BM but notes straining to have one. Questions/concerns addressed. Review of Systems Review of Systems: All systems reviewed & are unremarkable except as noted in HPI & below Physical Exam Physical Exam: The patient appeared well nourished and normally developed, resting comfortably on his side with CPAP on. WD/WN, NAD HEENT: Atraumatic, normocephalic. moist mm, uremic florez, dry skin to face Resp: CTAB, no wheezes, bibasilar crackles (improved with deep cough), no accessory muscle use CV: RRR, no m/r/g, 2+ edema b/l LE with compression stockings in place Abd: +BS throughout, distended, non-tender, no guarding or rigidity Ext: b/l LE edema, pulses present bilaterally, ulcer to L lateral foot covered with aquacell, non-tender Psych: AOx3 Results & Data Results & Data ([facility]) Vital Signs (Past 12 Hours) Vital Signs Temp Pulse Resp BP Pulse Ox 05/29/21 07:10 36.7 C 56 L 16 107/69 93 05/28/21 21:49 36.7 C 59 L 16 116/73 95 Laboratory Results 05/29/21 05/29/21 05/29/21 Range/Units 08:12 06:25 06:24 WBC 7.19 (4.8-10.8) K/uL RBC 3.57 L (4.7-6.1) M/uL Hgb 10.9 L (14.0-18.0) g/dL Hct 32.6 L (42-52) % MCV 91.3 (80-100) fL MCH 30.5 (25-34) pg MCHC 33.4 (32-36) g/dL RDW Std Deviation 48.7 H (36.4-46.3) fL RDW Coeff of Diane 15.1 H (11.5-14.5) % Plt Count 208 (130-400) K/uL MPV 10.6 H (7.4-10.4) fL Sodium 132 L (136-145) mmol/L Potassium 4.4 (3.5-5.1) mmol/L Chloride 96 L (98-107) mmol/L Carbon Dioxide 29 (21-32) mmol/L Anion Gap 7.0 (3-11) BUN 43 H (7-18) mg/dl Creatinine 2.78 H D (0.6-1.4) mg/dl Est Cr Clr Drug Dosing 36.6 ml/min Est GFR ( Amer) 28.6 ml/min Est GFR (Non-Af Amer) 24.7 ml/min BUN/Creatinine Ratio 15.4 (10-20) Glucose 220 H (70-99) mg/dl POC Glucose 267 H (70-99) mg/dl Estimat Average Glucose mg/dl Hemoglobin A1c (4.5-5.6) % Calcium 8.8 (8.5-10.1) mg/dl Total Bilirubin 0.5 (0.2-1) mg/dl AST 52 H (15-37) U/L ALT 61 (12-78) U/L Alkaline Phosphatase 91 (45-117) U/L Total Protein 7.2 (6.4-8.2) gm/dl Albumin 3.4 (3.4-5.0) gm/dl Globulin 3.8 (2.5-4.0) gm/dl Albumin/Globulin Ratio 0.9 (0.9-2) TSH (0.300-4.500) uIu/ml 05/29/21 05/28/21 05/28/21 Range/Units 06:24 20:39 17:21 WBC (4.8-10.8) K/uL RBC (4.7-6.1) M/uL Hgb (14.0-18.0) g/dL Hct (42-52) % MCV (80-100) fL MCH (25-34) pg MCHC (32-36) g/dL RDW Std Deviation (36.4-46.3) fL RDW Coeff of Diane (11.5-14.5) % Plt Count (130-400) K/uL MPV (7.4-10.4) fL Sodium (136-145) mmol/L Potassium (3.5-5.1) mmol/L Chloride (98-107) mmol/L Carbon Dioxide (21-32) mmol/L Anion Gap (3-11) BUN (7-18) mg/dl Creatinine (0.6-1.4) mg/dl Est Cr Clr Drug Dosing ml/min Est GFR ( Amer) ml/min Est GFR (Non-Af Amer) ml/min BUN/Creatinine Ratio (10-20) Glucose (70-99) mg/dl POC Glucose 347 H* 289 H (70-99) mg/dl Estimat Average Glucose 217 mg/dl Hemoglobin A1c 9.2 H (4.5-5.6) % Calcium (8.5-10.1) mg/dl Total Bilirubin (0.2-1) mg/dl AST (15-37) U/L ALT (12-78) U/L Alkaline Phosphatase (45-117) U/L Total Protein (6.4-8.2) gm/dl Albumin (3.4-5.0) gm/dl Globulin (2.5-4.0) gm/dl Albumin/Globulin Ratio (0.9-2) TSH (0.300-4.500) uIu/ml 05/28/21 05/28/21 05/28/21 Range/Units 17:19 12:16 05:43 WBC (4.8-10.8) K/uL RBC (4.7-6.1) M/uL Hgb (14.0-18.0) g/dL Hct (42-52) % MCV (80-100) fL MCH (25-34) pg MCHC (32-36) g/dL RDW Std Deviation (36.4-46.3) fL RDW Coeff of Diane (11.5-14.5) % Plt Count (130-400) K/uL MPV (7.4-10.4) fL Sodium (136-145) mmol/L Potassium (3.5-5.1) mmol/L Chloride (98-107) mmol/L Carbon Dioxide (21-32) mmol/L Anion Gap (3-11) BUN (7-18) mg/dl Creatinine (0.6-1.4) mg/dl Est Cr Clr Drug Dosing ml/min Est GFR ( Amer) ml/min Est GFR (Non-Af Amer) ml/min BUN/Creatinine Ratio (10-20) Glucose (70-99) mg/dl POC Glucose 302 H* 294 H (70-99) mg/dl Estimat Average Glucose mg/dl Hemoglobin A1c (4.5-5.6) % Calcium (8.5-10.1) mg/dl Total Bilirubin (0.2-1) mg/dl AST (15-37) U/L ALT (12-78) U/L Alkaline Phosphatase (45-117) U/L Total Protein (6.4-8.2) gm/dl Albumin (3.4-5.0) gm/dl Globulin (2.5-4.0) gm/dl Albumin/Globulin Ratio (0.9-2) TSH 3.190 (0.300-4.500) uIu/ml PG Care Time/CCT Total # of Minutes Spent Total Time Spent with Patient: Total time spent is greater than 50% in coordination of care (as documented) at patient's floor/unit and/or counseling patient: Coding Level of Care Code 75107 Subseq Hosp Care Lvl 3 Diagnoses Diastolic CHF I50.33 Heart failure chronicity: acute on chronic Stage 4 chronic kidney disease due to diabetes mellitus E11.22; N18.4 Acute kidney injury N17.9 Dyslipidemia E78.5 Foot ulcer, left L97.529 Morbid obesity E66.01 WHIT (obstructive sleep apnea) G47.33 Poorly controlled diabetes mellitus E11.65 (1) Diastolic CHF Heart failure chronicity: acute on chronic Qualified Code(s): I50.33 - Acute on chronic diastolic (congestive) heart failure
[2021-05-29] MEDS: INSULIN ASPART 100 UNITS/ML 3 ML PEN SC SCH ×4 (09:24→21:23)
[2021-05-29] MEDS: GABAPENTIN 600 MG TAB PO SCH ×3 (09:26→21:16)
[2021-05-29] MEDS: FLUTICASONE PROPIONATE NA SPR 16 GM BTL NAE SCH ×2 (09:26→21:17)
[2021-05-29] MEDS: SULFAMETHOXAZOLE/TRIMETHOPRIM DS 800/160MG TAB PO SCH ×2 (09:27→21:14)
[2021-05-29] MEDS: ASPIRIN 81 MG ECTAB PO SCH ×2 (09:27→21:15)
[2021-05-29] MEDS: TORSEMIDE 20 MG TAB PO SCH (09:27)
--- NOTE | 2021-05-29 10:22 | Pharmacy Report ---
Pharmacy Glycemic Short Note 2 - Date of Service May 29, 2021 - Glycemic Short BSG Results (Last 24 hours): 05/28/21 05/28/21 05/28/21 12:16 17:19 17:21 Glucose POC Glucose 294 H 302 H* 289 H 05/28/21 05/29/21 05/29/21 20:39 06:24 08:12 Glucose 220 H POC Glucose 347 H* 267 H OUTPATIENT ANTIDIABETIC REGIMEN: * Metformin 500mg PO BID * Humulin R U-500 - 50 units TID * Lantus 50 units HS * A1c 9.2% 05/29/21 ASSESSMENT: * 55 year old male admitted with lower extremity edema, CHF, stage 4 CKD, uncontrolled type 2 diabetic on multiple insulins (200 units/day). Patient did not use U-500 on last admission, and was managed with basal bolus, will continue with this plan at this time * Hyperglycemic since admission on 05/25, pharmacy consulted last night, requires more basal and tighter CF/CR * ADA & AACE recommend a goal blood sugar range 140-180 mg/dl for the majority of critically ill & non-critically ill patients. However, more stringent targets may be selected in individual cases. Will utilize more stringent goal of 110-140mg/dl based on patient age & comorbidities. Additionally, tighter glycemic control is warranted to facilitate wound/infection healing. PLAN FOR INPATIENT GLYCEMIC CONTROL: * Hold outpatient oral diabetes medications * Basal insulin -increase * Lantus 70 units SQ HS * Bolus insulin -tighten CF/CR * NovoLog per scale ACHS or Q6hrs while NPO * Goal Range: Low 110 mg/dL - High 140 mg/dL * Correction Factor: 8 mg/dL/unit * Nutritional / Prandial insulin per carb ratio of 1 unit per 2.5 grams CHO consumed PLAN FOR DISCHARGE: * unsure at this time * Evaluate metformin use in CKD stage 4
[2021-05-29] MEDS ORDERED: metOLazone 2.5 MG TABLET PO ONE (11:35)
--- NOTE | 2021-05-29 12:56 | Nephrology Consultation ---
Date of Consultation May 29, 2021 Assessment & Plan (1) Leg edema: * 05/26/21 Echocardiogram: LVEF 55-60%, mild concentric LVH, grade II diastolic dysfunction, normal RVSP * Change diuretic regimen to Bumex 2 mg IV BID * Provide one dose Metolazone 2.5 mg po today * Monitor I&O's. Target net 1 - 1.5 L volume negative each day * Ask dietitian to provide education on low Na diet (2) CKD (chronic kidney disease): * Baseline function fluctuates based upon volume status. Cr ranges 2.0 - 2.6 * Urinalysis is negative for protein or blood, UPCR 0.2 * 08/31 renal US: R 11.2cm, L 10.5cm. No hydronephrosis, stones or mass (3) Anemia: * Mild, asymptomatic anemia. Hgb 10.9 * Will order iron studies History of Present Illness Reason for Consultation: COSMO/CKD, volume overload Attending Physician: Walter Jimenez MD History of Present Illness Mr. Swartz is a 55 year old white male who is seen at the request of Danii Blackburn PA-c for evaluation of COSMO/CKD and volume overload. 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 He has received most of his medical care through the [facility]. He suffers from diastolic CHF and is followed regularly at [place] [facility] [place] [facility]. His kidney function has been variable depending upon his volume status. Baseline creatinine has ranged 2.0 - 2.6. Mr. Swartz reports a diet mainly of processed foods that are high in salt. Over the last several weeks, he has gained 30 lbs fluid weight. Mr. Swartz's diuretic was adjusted to Bumex 3 mg po BID but his symptoms failed to improve. His [facility] physician was contacted and advised hospitalization. Since admission, Mr. Swartz has been managed w/ loop diuretics. He has diuresed ~ 11L. Weight today is 257 lbs. His recorded EDW at the CHF clinic is 230 lbs. greenhouse staff are now wrapping his legs. Cr has risen mildly from 2.5 to 2.8. 05/26/21 Echocardiogram: LVEF 55-60%, mild concentric LVH, grade II diastolic dysfunction, normal RVSP. PMH: CKD w/ baseline Cr 2.5 - 2.8 depending upon volume status, diastolic CHF, anemia, HTN, DM, obesity, WHIT, gastroparesis, hyperlipidemia Allergies Allergy/AdvReac Type Severity Reaction Status Date / Time amitriptyline AdvReac Mild muscle Verified 05/25/21 17:31 twitching hydralazine AdvReac Mild Rash Verified 05/25/21 17:31 Home Medications Medication Instructions Recorded Confirmed Type atorvastatin 80 mg tablet 80 mg PO QPM 08/02/18 05/25/21 History magnesium oxide 400 mg PO HS 08/02/18 05/25/21 History metoprolol succinate 50 mg 150 mg PO QPM 08/02/18 05/25/21 History tablet,extended release 24 hr omega 0-hnc-kxi-fish oil 1,000 mg 1 cap PO QPM 02/20/19 05/25/21 History (120 mg-180 mg) capsule (Fish Oil) omeprazole 20 mg capsule,delayed 20 mg PO QPM #0 cap 08/14/19 05/25/21 Rx release cholecalciferol (vitamin D3) 25 2,000 units PO QPM tab 11/19/19 05/25/21 History mcg (1,000 unit) chewable tablet (Vitamin D3) cyanocobalamin (vitamin B-12) 1,000 mcg PO HS tab 11/19/19 05/25/21 History 1,000 mcg tablet (Vitamin B-12) gabapentin 600 mg tablet 600 mg PO TID 12/06/19 05/25/21 History polyethylene glycol 3350 17 17 gm PO BID PRN #510 gm 12/23/19 05/25/21 Rx gram/dose oral powder aspirin 81 mg tablet,delayed 81 mg PO BID tab 01/16/20 05/25/21 History release tramadol 50 mg tablet 50 mg PO Q6H PRN 02/21/20 05/25/21 History fluticasone propionate 50 1 spray INTRANASAL BID 05/05/20 05/25/21 History mcg/actuation nasal spray,suspension (Flonase Allergy Relief) insulin regular hum U-500 conc 500 50 unit SUBCUT TID 09/18/20 05/25/21 History unit/mL subcutaneous soln (Humulin R U-500 (Concentrated) Insulin) doxazosin 4 mg tablet 4 mg PO QPM 10/01/20 05/25/21 History empagliflozin 10 mg tablet 10 mg PO QPM 10/06/20 05/25/21 History (Jardiance) metformin 500 mg tablet 500 mg PO BID 10/06/20 05/25/21 History sulfamethoxazole 800 1 tab PO Q12 #60 tab 10/10/20 05/25/21 Rx mg-trimethoprim 160 mg tablet insulin glargine 100 unit/mL (3 50 unit SUBCUT PM 10/16/20 05/25/21 History mL) subcutaneous pen ferrous sulfate 325 mg (65 mg 325 mg PO QAM 02/03/21 05/25/21 History iron) tablet acetaminophen 500 mg tablet 1,000 mg PO Q6H PRN 02/12/21 05/25/21 History (Acetaminophen Extra Strength) bumetanide 1 mg tablet 1 mg PO .COMPLEX #60 tab 05/17/21 05/25/21 Rx bumetanide 2 mg tablet 3 mg PO BID tab 05/17/21 05/25/21 History melatonin 10 mg capsule 10 mg PO HS 05/17/21 05/25/21 History Patient History Medical History (Updated 05/29/21 @ 12:50 by Jostin Alvarez MD) Chronic back pain Chronic kidney disease Depression Diabetes Diastolic CHF Hypervolemia secondary to high sodium intake- per 12/01/20 Heart Failure [facility] visit- pt stable by phone- close to dry weight of 240 lb Volume overload seems to fluctuate- [facility] - fluid retention may be more multifactorial rather than cardiac Dyslipidemia Dyspnea WITH EXERTION GERD (gastroesophageal reflux disease) Hypertension Migraine Morbid obesity Osteoarthritis Sleep apnea cpap Temporomandibular joint disorder CLICKS ON OCC NO LOCKING Surgical History History of incision and drainage Left foot multiple with skin graft, last 09/2020 History of open reduction and internal fixation (ORIF) procedure Left ankle Bimalleolar Fracture (11/2019) History of placement of ear tubes right ear History of tonsillectomy and adenoidectomy Hx of cataract surgery right and left Hx of colonoscopy Tarpley teeth extracted Family History Father Diabetes Mother Diabetes Other Coronary heart disease Hypertension Denies family history of Crohn's disease Kidney disease Colorectal cancer Ulcerative colitis Social History Smoking Status: Former smoker Tobacco Type: Cigarettes Second Hand Exposure: No; Hx Alcohol Use: Yes Alcohol type: beer Hx Substance Use: No Preferred Language: Estonian Communication Ability: Effective Driver Supervisor Required: No Beliefs That Will Affect Care: None marital status: Current Living Situation: Spouse Current Living Situation Comment: Four children, grown & in good health current occupational status: employed 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 Other Information That Helps Us Care for You: No Feels Safe at Home: Yes Safety Concerns: Feels Safe At This Time Assistive Devices: None Review of Systems Constitutional: no fever Eyes: no problem reported Ear, Nose, Mouth, Throat: no problem reported Respiratory: no cough and no dyspnea Cardiovascular: no chest pain, no palpitations and no edema Gastrointestinal: no abdominal pain, no nausea, no vomiting and no diarrhea/loose stools Genitourinary: no dysuria, no urinary hesitancy or no hematuria Musculoskeletal: no back pain Integumentary: no rash Neurologic: no falls, no dizziness and no confusion Physical Exam Constitutional: not in distress Eyes: PERRL Neck: + thick neck; neck nontender Respiratory: normal respiratory effort, lungs clear to auscultation Cardiovascular: Rate/Rhythm: regular rate and regular rhythm Extremities: + edema (2+ LE edema, legs wrapped) Gastrointestinal (Abdomen): Inspection/Auscultation: + abdomen distended Percussion/Palpation: abdomen nontender and no guarding Musculoskeletal: Extremities: no cyanosis Results & Data ([facility]) Vital Signs (Past 12 Hours) Vital Signs Temp Pulse Resp BP Pulse Ox 05/29/21 07:10 36.7 C 56 L 16 107/69 93 Laboratory Results Laboratory Tests 05/29/21 05/29/21 05/29/21 06:24 06:24 06:25 WBC 7.19 Hgb 10.9 L Hct 32.6 L Plt Count 208 Sodium 132 L Potassium 4.4 Chloride 96 L Carbon Dioxide 29 BUN 43 H Creatinine 2.78 H D Glucose 220 H Hemoglobin A1c 9.2 H Calcium 8.8 AST 52 H ALT 61 Alkaline Phosphatase 91 Albumin 3.4 PG Care Time/CCT Total # of Minutes Spent Total Time Spent with Patient: Total time spent is greater than 50% in coordination of care (as documented) at patient's floor/unit and/or counseling patient: Coding Level of Care Code 67488 Inpt Consult Level 5 Diagnoses Leg edema R60.0 CKD (chronic kidney disease) N18.9 Chronic kidney disease stage: unspecified stage Anemia D64.9 (1) CKD (chronic kidney disease) Chronic kidney disease stage: unspecified stage Qualified Code(s): N18.9 - Chronic kidney disease, unspecified
[2021-05-29] MEDS ORDERED: traMADol HCL 50 MG TABLET PO PRN (14:08)
[2021-05-29 14:42] LABS: Iron 55 mcg/dl (35-175); Transferrin 260 mg/dl (200-360); Transferrin Percent Saturation 15 % (20-50)
[2021-05-29] MEDS: BUMETANIDE 2 MG in SYRINGE 0 ML IV SCH (16:33)
[2021-05-29] MEDS: MELATONIN 3 MG TAB PO SCH (21:13)
[2021-05-29] MEDS: traZODone HCL 50 MG TAB PO SCH (21:14)
[2021-05-29] MEDS: ATORVASTATIN 40 MG TAB PO SCH (21:14)
[2021-05-29] MEDS: CHOLECALCIFEROL 1,000 UNITS 25 MCG TAB PO SCH (21:15)
[2021-05-29] MEDS: METOPROLOL SUCC 50MG EXT REL TAB PO SCH (21:15)
[2021-05-29] MEDS: PANTOprazole 40 MG TAB PO SCH (21:16)
[2021-05-29] MEDS: INSULIN GLARGINE SOLOSTAR 100 UNITS/ML 3 ML PEN SQ SCH (21:22)
[2021-05-30] MEDS: HEPARIN SOD 5,000 UNIT/0.5 ML VIAL SQ SCH ×3 (05:43→21:30)
[2021-05-30 06:14] LABS: Hematocrit (blood only) 32.7 % (42-52); Mean Corpuscular Hgb Conc 33.6 g/dL (32-36); Mean Corpuscular Volume 92.1 fL (80-100); Mean Platelet Volume 10.1 fL (7.4-10.4); Platelet Count 215 K/uL (130-400); RDW Coefficient of Variation 15.5 % (11.5-14.5); RDW Standard Deviation 50.2 fL (36.4-46.3); Red Blood Count 3.55 M/uL (4.7-6.1); White Blood Count 8.14 K/uL (4.8-10.8)
[2021-05-30 06:53] LABS: Albumin Level 3.4 gm/dl (3.4-5.0); BUN Creatinine Ratio 16.8 (10-20); Calcium 8.4 mg/dl (8.5-10.1); Creatinine Clr Calc Pharmacy 36.7 ml/min; Est GFR (African American) 28.9 ml/min; Est GFR (Non-African American) 24.9 ml/min; Magnesium 2.5 mg/dl (1.8-2.4); Potassium 4.4 mmol/L (3.5-5.1)
[2021-05-30 06:58] LABS: Albumin Globulin Ratio 0.9 (0.9-2); Bilirubin,Total 0.4 mg/dl (0.2-1); Ferritin 108.3 ng/ml (8-388); Globulin 3.9 gm/dl (2.5-4.0); Total Protein 7.3 gm/dl (6.4-8.2)
[2021-05-30] MEDS ORDERED: metOLazone 2.5 MG TABLET PO ONE (08:53)
--- NOTE | 2021-05-30 09:18 | Nephrology Progress Note ---
Date of Service May 30, 2021 Assessment & Plan (1) Leg edema: Plan: * Diuresed 1500 cc yesterday using combination loop + thiazide. Weight has dropped from 273lbs on admission to 255lbs (EDW 230lbs). Na is slightly improved to 131, CO2 is improved to 27, Cr remains stable at 2.76. * 05/26/21 Echocardiogram: LVEF 55-60%, mild concentric LVH, grade II diastolic dysfunction, normal RVSP * Continue Bumex 2 mg IV BID * Provide Metolazone 2.5 mg po x1 today * K and Mg remain acceptable * Monitor I&O's. Target net 1 - 1.5 L volume negative each day (2) CKD (chronic kidney disease): Plan: * Baseline function fluctuates based upon volume status. Cr ranges 2.0 - 2.6 * Urinalysis is negative for protein or blood, UPCR 0.2 * 08/31 renal US: R 11.2cm, L 10.5cm. No hydronephrosis, stones or mass (3) Anemia: Plan: * Mild, asymptomatic anemia. Hgb 10.9 * Will order iron studies Admission and Anticipated Discharge Date Admission Date: May 25, 2021 Subjective Mr. Swartz was seen & examined in his hospital room this morning. He reports brisk UO yesterday and notes that his leg edema is mildly improved. He has had no cramping or orthostasis and was able to ambulate in the hallway with assistance. Review of Systems Constitutional: no fever Eyes: no problem reported Ear, Nose, Mouth, Throat: no problem reported Respiratory: no cough and no dyspnea Cardiovascular: no chest pain, no palpitations and no edema Gastrointestinal: no abdominal pain, no nausea, no vomiting and no diarrhea/loose stools Genitourinary: no dysuria, no urinary hesitancy or no hematuria Musculoskeletal: no back pain Integumentary: no rash Neurologic: no falls, no dizziness and no confusion Physical Exam Constitutional: not in distress Eyes: PERRL Neck: + thick neck; neck nontender Respiratory: normal respiratory effort, lungs clear to auscultation Cardiovascular: Rate/Rhythm: regular rate and regular rhythm Extremities: + edema (2+ LE edema, legs wrapped) Gastrointestinal (Abdomen): Inspection/Auscultation: + abdomen distended Percussion/Palpation: abdomen nontender and no guarding Musculoskeletal: Extremities: no cyanosis Results & Data ([facility]) Vital Signs (Past 12 Hours) Vital Signs Temp Pulse Pulse Resp BP BP Pulse Ox 05/30/21 07:10 36.7 C 56 L 20 136/73 97 05/29/21 22:12 36.8 C 61 18 132/81 97 05/29/21 21:26 66 154/84 H Laboratory Results Laboratory Tests 05/30/21 05/30/21 05:58 05:58 WBC 8.14 Hgb 11.0 L Hct 32.7 L Plt Count 215 Sodium 131 L Potassium 4.4 Chloride 95 L Carbon Dioxide 27 BUN 46 H Creatinine 2.76 H PG Care Time/CCT Total # of Minutes Spent Total Time Spent with Patient: Total time spent is greater than 50% in coordination of care (as documented) at patient's floor/unit and/or counseling patient: Coding Level of Care Code 17320 Subseq Hosp Care Lvl 3 Diagnoses Leg edema R60.0 CKD (chronic kidney disease) N18.9 Chronic kidney disease stage: unspecified stage Anemia D64.9 (1) CKD (chronic kidney disease) Chronic kidney disease stage: unspecified stage Qualified Code(s): N18.9 - Chronic kidney disease, unspecified
[2021-05-30] MEDS: INSULIN ASPART 100 UNITS/ML 3 ML PEN SC SCH ×4 (09:24→21:29)
[2021-05-30] MEDS: INSULIN GLARGINE SOLOSTAR 100 UNITS/ML 3 ML PEN SC SCH (09:26)
--- NOTE | 2021-05-30 09:26 | Hospitalist Progress Note ---
Date of Service May 30, 2021 Assessment & Plan (1) Diastolic CHF: Plan: 05/26/21 Repeat echocardiogram supports diastolic dysfunction: Echocardiogram: LVEF 55-60%, mild concentric LVH, grade II diastolic dysfunction, normal RVSP Wt 124.6kg on admission with dry weight closer to 105kg) Patient's been educated in the past has been on multiple different diuretics without success and does have frequent dietary indiscretions at home due to financial strain/processed foods Nephrology consulted -- recs needs IV diuresis + prn metolazone --> changed to Bumex 2mg IV BID on 05/29 and this is continued --> Got dose 2.5mg metolazone on 05/29 and Cr essentially unchanged but weight down to 116.2kg (124.6kg on admission with dry weight closer to 230lb) May need to accept higher baseline Cr, at least temporarily to allow for diuresis Educated on low salt diet --> financial strain at home/dietary options as issue Continue to measure I&O, daily weights Continued on his metoprolol succinate 150mg daily Will need f/u CHF clinic at discharge Lower extremity compression wraps brought from home and applied -- giving him a break for now as they were cutting into his skin . no active drainage/opening but will need to continue to monitor Iron sat low --> discussed with nephrology and will order IV Venofer while inpatient 200mg IV x 5 days or however long he remains inpatient (2) Stage 4 chronic kidney disease due to diabetes mellitus: Plan: Renal function appears to be stable secondary to long-term diabetes continue to watch as diuresis continues Nephrology on consult as above -- also ordered iron studies. Venofer as above BMP in AM (3) Acute kidney injury: Plan: Patient's renal function may be a new set point Nephrology as above (4) Dyslipidemia: Plan: Atorvastatin 80 mg (5) Foot ulcer, left: Plan: Is on Bactrim for foot ulcer -- cx hx with finegoldia magna, staph aureus, Enterobacter cloacae Wound RN consulted No evidence worsening infection currently (6) Morbid obesity: Plan: Certainly impacts could lower venous stasis and persistent lower extremity edema (7) WHIT (obstructive sleep apnea): Plan: 8-14 AutoPap home per patient -- has been faithful with use while inpatient and with napping (8) Poorly controlled diabetes mellitus: Plan: A1c 9.2 from prior value 10.0 Holding home metformin and Jardiance Basal bolus insulin taking over for home regimen --> tightened ISS as sugars persistently elevated. Was managed on basal/bolus last admission Pharmacy consulted for glycemic management BSgs improving *Need to be cautious about metformin at d/c given his worsening CKD Continue to monitor Vit D Deficiency --> Continue supplementation. Prior level May 17 14.8 with elevated PTH 150. Nephrology on consult as above DVT Prophylaxis --Heparin SQ while inpatient Dispo: continued inpatient stay Admission and Anticipated Discharge Date Admission Date: May 25, 2021 Subjective Patient evaluated this morning. Doing well. No hypotension, dizziness, lightheadedness. Legs with less swelling. Taking a break from his compression wraps but did use the fortino stockings for a bit as well. Elevating legs as much as possible. Tolerating diet. BM yesterday but passing gas, no belly pain. Cr essentially unchanged and discussion about nephrology recs for additional dose of metolazone this morning to continue diuresis. Weight decreasing. No fever, chills, chest pain, shortness of breath, abd pain, n/v/dysuria at this time. Review of Systems Review of Systems: All systems reviewed & are unremarkable except as noted in HPI & below Physical Exam Physical Exam: The patient appeared well nourished and normally developed, sitting up in bed upon arrival. WD/WN, chronically ill appearing, NAD HEENT: Atraumatic, normocephalic. moist mm, uremic florez, dry skin to face Resp: CTAB, no wheezes, crackles, no accessory muscle use CV: RRR, no m/r/g, 2+ edema b/l LE (decreased today) Abd: +BS throughout, distended, non-tender, no guarding or rigidity Ext: b/l LE edema, pulses present bilaterally, ulcer to L lateral foot covered with Aquacell, non-tender. several lesions to legs from compression stockings, no drainage/opening Psych: AOx3 Results & Data Results & Data ([facility]) Vital Signs (Past 12 Hours) Vital Signs Temp Pulse Pulse Resp BP BP Pulse Ox 05/30/21 07:10 36.7 C 56 L 20 136/73 97 05/29/21 22:12 36.8 C 61 18 132/81 97 05/29/21 21:26 66 154/84 H Laboratory Results 05/30/21 05/30/21 05/30/21 Range/Units 08:32 05:58 05:58 WBC 8.14 (4.8-10.8) K/uL RBC 3.55 L (4.7-6.1) M/uL Hgb 11.0 L (14.0-18.0) g/dL Hct 32.7 L (42-52) % MCV 92.1 (80-100) fL MCH 31.0 (25-34) pg MCHC 33.6 (32-36) g/dL RDW Std Deviation 50.2 H (36.4-46.3) fL RDW Coeff of Diane 15.5 H (11.5-14.5) % Plt Count 215 (130-400) K/uL MPV 10.1 (7.4-10.4) fL Sodium 131 L (136-145) mmol/L Potassium 4.4 (3.5-5.1) mmol/L Chloride 95 L (98-107) mmol/L Carbon Dioxide 27 (21-32) mmol/L Anion Gap 8.0 (3-11) BUN 46 H (7-18) mg/dl Creatinine 2.76 H (0.6-1.4) mg/dl Est Cr Clr Drug Dosing 36.7 ml/min Est GFR ( Amer) 28.9 ml/min Est GFR (Non-Af Amer) 24.9 ml/min BUN/Creatinine Ratio 16.8 (10-20) Glucose 245 H (70-99) mg/dl POC Glucose 296 H (70-99) mg/dl Calcium 8.4 L (8.5-10.1) mg/dl Magnesium 2.5 H (1.8-2.4) mg/dl Iron (35-175) mcg/dl Transferrin (200-360) mg/dl Transferrin % Sat (20-50) % Ferritin 108.3 (8-388) ng/ml Total Bilirubin 0.4 (0.2-1) mg/dl AST 45 H (15-37) U/L ALT 65 (12-78) U/L Alkaline Phosphatase 97 (45-117) U/L Total Protein 7.3 (6.4-8.2) gm/dl Albumin 3.4 (3.4-5.0) gm/dl Globulin 3.9 (2.5-4.0) gm/dl Albumin/Globulin Ratio 0.9 (0.9-2) 05/29/21 05/29/21 05/29/21 Range/Units 20:32 17:12 12:04 WBC (4.8-10.8) K/uL RBC (4.7-6.1) M/uL Hgb (14.0-18.0) g/dL Hct (42-52) % MCV (80-100) fL MCH (25-34) pg MCHC (32-36) g/dL RDW Std Deviation (36.4-46.3) fL RDW Coeff of Diane (11.5-14.5) % Plt Count (130-400) K/uL MPV (7.4-10.4) fL Sodium (136-145) mmol/L Potassium (3.5-5.1) mmol/L Chloride (98-107) mmol/L Carbon Dioxide (21-32) mmol/L Anion Gap (3-11) BUN (7-18) mg/dl Creatinine (0.6-1.4) mg/dl Est Cr Clr Drug Dosing ml/min Est GFR ( Amer) ml/min Est GFR (Non-Af Amer) ml/min BUN/Creatinine Ratio (10-20) Glucose (70-99) mg/dl POC Glucose 176 H 105 H 192 H (70-99) mg/dl Calcium (8.5-10.1) mg/dl Magnesium (1.8-2.4) mg/dl Iron (35-175) mcg/dl Transferrin (200-360) mg/dl Transferrin % Sat (20-50) % Ferritin (8-388) ng/ml Total Bilirubin (0.2-1) mg/dl AST (15-37) U/L ALT (12-78) U/L Alkaline Phosphatase (45-117) U/L Total Protein (6.4-8.2) gm/dl Albumin (3.4-5.0) gm/dl Globulin (2.5-4.0) gm/dl Albumin/Globulin Ratio (0.9-2) 05/29/21 Range/Units 06:24 WBC (4.8-10.8) K/uL RBC (4.7-6.1) M/uL Hgb (14.0-18.0) g/dL Hct (42-52) % MCV (80-100) fL MCH (25-34) pg MCHC (32-36) g/dL RDW Std Deviation (36.4-46.3) fL RDW Coeff of Diane (11.5-14.5) % Plt Count (130-400) K/uL MPV (7.4-10.4) fL Sodium (136-145) mmol/L Potassium (3.5-5.1) mmol/L Chloride (98-107) mmol/L Carbon Dioxide (21-32) mmol/L Anion Gap (3-11) BUN (7-18) mg/dl Creatinine (0.6-1.4) mg/dl Est Cr Clr Drug Dosing ml/min Est GFR ( Amer) ml/min Est GFR (Non-Af Amer) ml/min BUN/Creatinine Ratio (10-20) Glucose (70-99) mg/dl POC Glucose (70-99) mg/dl Calcium (8.5-10.1) mg/dl Magnesium (1.8-2.4) mg/dl Iron 55 (35-175) mcg/dl Transferrin 260 (200-360) mg/dl Transferrin % Sat 15 L (20-50) % Ferritin (8-388) ng/ml Total Bilirubin (0.2-1) mg/dl AST (15-37) U/L ALT (12-78) U/L Alkaline Phosphatase (45-117) U/L Total Protein (6.4-8.2) gm/dl Albumin (3.4-5.0) gm/dl Globulin (2.5-4.0) gm/dl Albumin/Globulin Ratio (0.9-2) PG Care Time/CCT Total # of Minutes Spent Total Time Spent with Patient: Total time spent is greater than 50% in coordination of care (as documented) at patient's floor/unit and/or counseling patient: Coding Level of Care Code 77594 Subseq Hosp Care Lvl 3 Diagnoses Diastolic CHF I50.33 Heart failure chronicity: acute on chronic Stage 4 chronic kidney disease due to diabetes mellitus E11.22; N18.4 Acute kidney injury N17.9 Dyslipidemia E78.5 Foot ulcer, left L97.529 Morbid obesity E66.01 WHIT (obstructive sleep apnea) G47.33 Poorly controlled diabetes mellitus E11.65 (1) Diastolic CHF Heart failure chronicity: acute on chronic Qualified Code(s): I50.33 - Acute on chronic diastolic (congestive) heart failure
[2021-05-30] MEDS: FLUTICASONE PROPIONATE NA SPR 16 GM BTL NAE SCH ×2 (09:30→21:27)
[2021-05-30] MEDS: ASPIRIN 81 MG ECTAB PO SCH ×2 (09:32→21:26)
[2021-05-30] MEDS: SULFAMETHOXAZOLE/TRIMETHOPRIM DS 800/160MG TAB PO SCH ×2 (09:32→21:28)
[2021-05-30] MEDS: GABAPENTIN 600 MG TAB PO SCH ×3 (09:33→21:25)
[2021-05-30] MEDS: BUMETANIDE 2 MG in SYRINGE 0 ML IV SCH ×2 (09:34→18:00)
[2021-05-30] MEDS: IRON SUCROSE 200 MG in 0.9 % SODIUM CHLORIDE 100 ML IV SCH (10:36)
--- NOTE | 2021-05-30 12:14 | Pharmacy Report ---
Pharmacy Glycemic Short Note 2 - Date of Service May 30, 2021 - Glycemic Short BSG Results (Last 24 hours): 05/29/21 05/29/21 05/30/21 17:12 20:32 05:58 Glucose 245 H POC Glucose 105 H 176 H 05/30/21 05/30/21 08:32 12:07 Glucose POC Glucose 296 H 234 H OUTPATIENT ANTIDIABETIC REGIMEN: * Metformin 500mg PO BID * Humulin R U-500 - 50 units TID * Lantus 50 units HS * A1c 9.2% 05/29/21 ASSESSMENT: 05/30/21 * Pt has received 163 units of insulin over the past 24hrs * 70 units of basal with Lantus * 93 units of bolus with NovoLog * BSGs 105-296 mg/dl * Fasting 245mg/dl - increase Lantus * Tighten CR * May consider changing to U500 insulin if unable to control with Lantus and NovoLog 05/29/21 * 55 year old male admitted with lower extremity edema, CHF, stage 4 CKD, uncontrolled type 2 diabetic on multiple insulins (200 units/day). Patient did not use U-500 on last admission, and was managed with basal bolus, will continue with this plan at this time * Hyperglycemic since admission on 05/25, pharmacy consulted last night, requires more basal and tighter CF/CR * ADA & AACE recommend a goal blood sugar range 140-180 mg/dl for the majority of critically ill & non-critically ill patients. However, more stringent targets may be selected in individual cases. Will utilize more stringent goal of 110-140mg/dl based on patient age & comorbidities. Additionally, tighter glycemic control is warranted to facilitate wound/infection healing. PLAN FOR INPATIENT GLYCEMIC CONTROL: * Hold outpatient oral diabetes medications * Basal insulin -increase * Lantus 20 units SQ AM * 80 units SQ HS * Bolus insulin -tighten CR * NovoLog per scale ACHS or Q6hrs while NPO * Goal Range: Low 110 mg/dL - High 140 mg/dL * Correction Factor: 8 mg/dL/unit * Nutritional / Prandial insulin per carb ratio of 1 unit per 2 grams CHO consumed PLAN FOR DISCHARGE: * unsure at this time * Evaluate metformin use in CKD stage 4
[2021-05-30] MEDS ORDERED: INSULIN GLARGINE SOLOSTAR 100 UNITS/ML 3 ML PEN SQ SCH (21:00)
[2021-05-30] MEDS: traZODone HCL 50 MG TAB PO SCH (21:25)
[2021-05-30] MEDS: METOPROLOL SUCC 50MG EXT REL TAB PO SCH (21:25)
[2021-05-30] MEDS: CHOLECALCIFEROL 1,000 UNITS 25 MCG TAB PO SCH (21:26)
[2021-05-30] MEDS: ATORVASTATIN 40 MG TAB PO SCH (21:26)
[2021-05-30] MEDS: PANTOprazole 40 MG TAB PO SCH (21:28)
[2021-05-30] MEDS: MELATONIN 3 MG TAB PO SCH (21:33)
[2021-05-31] MEDS: HEPARIN SOD 5,000 UNIT/0.5 ML VIAL SQ SCH ×3 (06:28→21:02)
--- NOTE | 2021-05-31 07:57 | Hospitalist Progress Note ---
Date of Service May 31, 2021 Assessment & Plan (1) Diastolic CHF: Plan: 05/26/21 Repeat echocardiogram supports diastolic dysfunction: Echocardiogram: LVEF 55-60%, mild concentric LVH, grade II diastolic dysfunction, normal RVSP Wt 124.6kg on admission with dry weight closer to 105kg) Patient's been educated in the past has been on multiple different diuretics without success and does have frequent dietary indiscretions at home due to financial strain/processed foods Nephrology consulted -- recs needs IV diuresis + prn metolazone --> changed to Bumex 3mg po BID on 05/31 ater bump to arnold with metolazone, but metalozone stopped anticipate home soon Educated on low salt diet --> financial strain at home/dietary options as issue Continue to measure I&O, daily weights Continued on his metoprolol succinate 150mg daily Will need f/u CHF clinic at discharge Lower extremity compression wraps brought from home and applied -- giving him a break for now as they were cutting into his skin . no active drainage/opening but will need to continue to monitor Iron sat low --> discussed with nephrology and will order IV Venofer while inpatient 200mg IV x 5 days or however long he remains inpatient (2) Stage 4 chronic kidney disease due to diabetes mellitus: Plan: arnold with ckd, nephrology adjuting meds (3) Acute kidney injury: Plan: Patient's renal function may be a new set point Nephrology as above (4) Dyslipidemia: Plan: Atorvastatin 80 mg (5) Foot ulcer, left: Plan: Is on Bactrim for foot ulcer -- cx hx with finegoldia magna, staph aureus, Enterobacter cloacae , bactrim may negatively affect renal function Wound RN consulted No evidence worsening infection currently (6) Morbid obesity: Plan: Certainly impacts could lower venous stasis and persistent lower extremity edema (7) WHIT (obstructive sleep apnea): Plan: 8-14 AutoPap home per patient -- has been faithful with use while inpatient and with napping (8) Poorly controlled diabetes mellitus: Plan: A1c 9.2 from prior value 10.0 Holding home metformin and Jardiance Basal bolus insulin taking over for home regimen --> tightened ISS as sugars persistently elevated. Was managed on basal/bolus last admission Pharmacy consulted for glycemic management BSgs improving *Need to be cautious about metformin at d/c given his worsening CKD Continue to monitor Vit D Deficiency --> Continue supplementation. Prior level May 17 14.8 with elevated PTH 150. Nephrology on consult as above DVT Prophylaxis --Heparin SQ while inpatient Dispo: continued inpatient stay Admission and Anticipated Discharge Date Admission Date: May 25, 2021 Subjective pt feels much better has not reached his goal of 2230 Lbs!!..some seborrheic dermatitis to face, otherwise we are targeting home in next one or two days, did have arnold from diuresis 05/31 Review of Systems Review of Systems: Mild distress and fatigue no headache, no visual changes no speech or swallowing issues no chest pain, pressure or palpitations Dyspnea on exertion, cough or wheezes no abdominal pain, nausea or vomiting, diarrhea or constipation no dysuria, hematuria or frequency no focal joint pain difficult lower extremity swelling no back pain, CVA tenderness or radicular pain no bruising, bleeding or rashes no focal signs of weakness or numbness or altered sensation no complaints of anxiety or depression.. Physical Exam Physical Exam: The patient appeared well nourished and normally developed. Vital signs as documented. Head exam is normocephalic atraumatic Neck is without JVD, thyromegaly, or carotid bruits. Lungs are clear to auscultation, no focal loss of breath sounds Cardiac exam, Rhythm is regular.. No murmurs, rubs or gallops. Abdominal exam reveals normal bowel sounds, soft non tender, no masses Extremities are nonedematous and both pedal pulses are present Neurologic exam is alert and oriented, no focal loss of strength or sensation Skin is without bruises or rashes Psychologically is without concerns for anxiety or depression Results & Data Results & Data ([facility]) Vital Signs (Past 12 Hours) Vital Signs Temp Pulse Pulse Pulse Resp BP BP 05/31/21 06:31 98.2 F 62 16 145/82 H 05/30/21 23:06 98.6 F 69 16 137/84 05/30/21 21:20 75 133/71 Pulse Ox 05/31/21 06:31 97 05/30/21 23:06 90 05/30/21 21:20 PG Care Time/CCT Total # of Minutes Spent Total Time Spent with Patient: Total time spent is greater than 50% in coordination of care (as documented) at patient's floor/unit and/or counseling patient: Coding Level of Care Code 84482 Subseq Hosp Care Lvl 3 Diagnoses Diastolic CHF I50.33 Heart failure chronicity: acute on chronic Stage 4 chronic kidney disease due to diabetes mellitus E11.22; N18.4 Acute kidney injury N17.9 Dyslipidemia E78.5 Foot ulcer, left L97.529 Morbid obesity E66.01 WHIT (obstructive sleep apnea) G47.33 Poorly controlled diabetes mellitus E11.65 (1) Diastolic CHF Heart failure chronicity: acute on chronic Qualified Code(s): I50.33 - Acute on chronic diastolic (congestive) heart failure
[2021-05-31 08:15] LABS: BUN Creatinine Ratio 16.2 (10-20); Calcium 8.6 mg/dl (8.5-10.1); Creatinine Clr Calc Pharmacy 33.3 ml/min; Est GFR (African American) 25.8 ml/min; Est GFR (Non-African American) 22.2 ml/min; Potassium 4.4 mmol/L (3.5-5.1)
[2021-05-31] MEDS: INSULIN ASPART 100 UNITS/ML 3 ML PEN SC SCH ×4 (09:02→21:00)
[2021-05-31] MEDS: INSULIN GLARGINE SOLOSTAR 100 UNITS/ML 3 ML PEN SC SCH (09:03)
[2021-05-31] MEDS: GABAPENTIN 600 MG TAB PO SCH ×3 (09:04→20:52)
[2021-05-31] MEDS: ASPIRIN 81 MG ECTAB PO SCH ×2 (09:04→20:54)
[2021-05-31] MEDS: BUMETANIDE 2 MG in SYRINGE 0 ML IV SCH (09:04)
[2021-05-31] MEDS: FLUTICASONE PROPIONATE NA SPR 16 GM BTL NAE SCH ×2 (09:04→20:55)
[2021-05-31] MEDS: SULFAMETHOXAZOLE/TRIMETHOPRIM DS 800/160MG TAB PO SCH ×2 (09:04→20:52)
[2021-05-31] MEDS: IRON SUCROSE 200 MG in 0.9 % SODIUM CHLORIDE 100 ML IV SCH (09:08)
--- NOTE | 2021-05-31 09:49 | Nephrology Progress Note ---
Date of Service May 31, 2021 Assessment & Plan (1) Leg edema: Plan: * Diuresed 1500 cc yesterday using combination loop + thiazide. Weight has dropped from 273lbs on admission to 255lbs (EDW 230lbs). LE swelling is moderately improved. Cr has risen to 3.0. * 05/26/21 Echocardiogram: LVEF 55-60%, mild concentric LVH, grade II diastolic dysfunction, normal RVSP * Change Bumex back to outpatient dose of 3mg po BID * Stop Metolazone * K and Mg remain acceptable * Monitor I&O's. Target net 1 - 1.5 L volume negative each day * Case discussed w/ Radha Artis PA-c this morning. She has outpatient CHF clinic follow up scheduled for ~ 1 week (2) CKD (chronic kidney disease): Plan: * Baseline function fluctuates based upon volume status. Cr ranges 2.0 - 2.6 * Urinalysis is negative for protein or blood, UPCR 0.2 * 08/31 renal US: R 11.2cm, L 10.5cm. No hydronephrosis, stones or mass (3) Anemia: Plan: * Mild, asymptomatic anemia. Hgb 10.9 * 05/30/21 iron studies: Iron sat 15%, ferritin * Day #2 of 5 IV Venofer Admission and Anticipated Discharge Date Admission Date: May 25, 2021 Subjective Mr. Swartz was seen & examined in his hospital room this morning. He reports brisk UO yesterday and notes that his leg edema is moderately improved. He has had no cramping or orthostasis and was able to ambulate in the hallway with assistance. He did receive education regarding low sodium diet from the dietitian yesterday. Review of Systems Constitutional: no fever Eyes: no problem reported Ear, Nose, Mouth, Throat: no problem reported Respiratory: no cough and no dyspnea Cardiovascular: no chest pain, no palpitations and no edema Gastrointestinal: no abdominal pain, no nausea, no vomiting and no diarrhea/loose stools Genitourinary: no dysuria, no urinary hesitancy or no hematuria Musculoskeletal: no back pain Integumentary: no rash Neurologic: no falls, no dizziness and no confusion Physical Exam Constitutional: not in distress Eyes: PERRL Neck: + thick neck; neck nontender Respiratory: normal respiratory effort, lungs clear to auscultation Cardiovascular: Rate/Rhythm: regular rate and regular rhythm Extremities: + edema (1+ LE edema, legs wrapped) Gastrointestinal (Abdomen): Inspection/Auscultation: + abdomen distended Percussion/Palpation: abdomen nontender and no guarding Musculoskeletal: Extremities: no cyanosis Results & Data ([facility]) Vital Signs (Past 12 Hours) Vital Signs Temp Pulse Pulse Resp BP BP Pulse Ox 05/31/21 09:17 37.0 C 62 16 120/78 92 05/31/21 06:31 36.8 C 62 16 145/82 H 97 05/30/21 23:06 37.0 C 69 16 137/84 90 Laboratory Results Laboratory Tests 05/31/21 07:24 Sodium 130 L Potassium 4.4 Chloride 94 L Carbon Dioxide 26 BUN 49 H Creatinine 3.03 H Glucose 258 H PG Care Time/CCT Total # of Minutes Spent Total Time Spent with Patient: Total time spent is greater than 50% in coordination of care (as documented) at patient's floor/unit and/or counseling patient: Coding Level of Care Code 52847 Subseq Hosp Care Lvl 3 Diagnoses Leg edema R60.0 CKD (chronic kidney disease) N18.9 Chronic kidney disease stage: unspecified stage Anemia D64.9 (1) CKD (chronic kidney disease) Chronic kidney disease stage: unspecified stage Qualified Code(s): N18.9 - Chronic kidney disease, unspecified
--- NOTE | 2021-05-31 12:23 | Pharmacy Report ---
Pharmacy Glycemic Short Note 2 - Date of Service May 31, 2021 - Glycemic Short BSG Results (Last 24 hours): 05/30/21 05/30/21 05/31/21 17:30 20:37 07:24 Glucose 258 H POC Glucose 125 H 164 H 05/31/21 05/31/21 05/31/21 08:05 08:06 11:59 Glucose POC Glucose 304 H* 297 H 206 H OUTPATIENT ANTIDIABETIC REGIMEN: * Metformin 500mg PO BID * Humulin R U-500 - 50 units TID * Lantus 50 units HS * A1c 9.2% 05/29/21 ASSESSMENT: 05/31/21 * Patient received total of 193 units of insulin yesterday, of which 100 units were basal insulin * Fasting BSG 297 mg/dL - per discussion with RN she states patient had ice cream/peanut butter overnight that was not covered. * Continued same Lantus dose as yesterday AM, for this AM - (supplemental dose to evening dose). Will provide scale for Lantus at HS time. Hard to assess appropriateness of dosing due to overnight snacking * Lunch BSG trending down to 206 mg/dL - concerned with BSGs trending down with more basal insulin on board - plan to loosen CF/CR with lunch 05/30/21 * Pt has received 163 units of insulin over the past 24hrs * 70 units of basal with Lantus * 93 units of bolus with NovoLog * BSGs 105-296 mg/dl * Fasting 245mg/dl - increase Lantus * Tighten CR * May consider changing to U500 insulin if unable to control with Lantus and NovoLog 05/29/21 * 55 year old male admitted with lower extremity edema, CHF, stage 4 CKD, uncontrolled type 2 diabetic on multiple insulins (200 units/day). Patient did not use U-500 on last admission, and was managed with basal bolus, will continue with this plan at this time * Hyperglycemic since admission on 05/25, pharmacy consulted last night, requires more basal and tighter CF/CR * ADA & AACE recommend a goal blood sugar range 140-180 mg/dl for the majority of critically ill & non-critically ill patients. However, more stringent targets may be selected in individual cases. Will utilize more stringent goal of 110-140mg/dl based on patient age & comorbidities. Additionally, tighter glycemic control is warranted to facilitate wound/infection healing. PLAN FOR INPATIENT GLYCEMIC CONTROL: * Hold outpatient oral diabetes medications * Basal insulin * Lantus 20 units SQ AM * 70-80 units SQ HS based upon BSG value * Bolus insulin - loosen * NovoLog per scale ACHS or Q6hrs while NPO * Goal Range: Low 110 mg/dL - High 140 mg/dL * Correction Factor: 12 mg/dL/unit * Nutritional / Prandial insulin per carb ratio of 1 unit per 3 grams CHO consumed PLAN FOR DISCHARGE: * A1c 9.2 % 05/29/21 - goal for patient <7% * Patient currently COSMO during hospitalization, will continue to follow to determine if insulin adjustments appropriate on discharge
[2021-05-31] MEDS: NYSTATIN CR 15 GM TUBE EXT SCH (18:33)
[2021-05-31] MEDS: BUMETANIDE 1 MG TAB PO SCH (18:33)
[2021-05-31] MEDS: CHOLECALCIFEROL 1,000 UNITS 25 MCG TAB PO SCH (20:51)
[2021-05-31] MEDS: PANTOprazole 40 MG TAB PO SCH (20:52)
[2021-05-31] MEDS: traZODone HCL 50 MG TAB PO SCH (20:52)
[2021-05-31] MEDS: ATORVASTATIN 40 MG TAB PO SCH (20:53)
[2021-05-31] MEDS: METOPROLOL SUCC 50MG EXT REL TAB PO SCH (20:53)
[2021-05-31] MEDS ORDERED: INSULIN GLARGINE SOLOSTAR 100 UNITS/ML 3 ML PEN SQ SCH (21:00)
[2021-05-31] MEDS: MELATONIN 3 MG TAB PO SCH (21:05)
[2021-06-01] MEDS: HEPARIN SOD 5,000 UNIT/0.5 ML VIAL SQ SCH (06:03)
[2021-06-01 07:58] LABS: Hematocrit (blood only) 31.7 % (42-52); Hemoglobin 10.9 g/dL (14.0-18.0); Mean Corpuscular Hgb Conc 34.4 g/dL (32-36); Mean Corpuscular Volume 90.1 fL (80-100); Mean Platelet Volume 10.3 fL (7.4-10.4); Platelet Count 216 K/uL (130-400); RDW Coefficient of Variation 15.7 % (11.5-14.5); RDW Standard Deviation 50.7 fL (36.4-46.3); Red Blood Count 3.52 M/uL (4.7-6.1)
[2021-06-01] MEDS: BUMETANIDE 1 MG TAB PO SCH (08:21)
[2021-06-01] MEDS: ASPIRIN 81 MG ECTAB PO SCH (08:21)
[2021-06-01] MEDS: GABAPENTIN 600 MG TAB PO SCH (08:22)
[2021-06-01] MEDS: FLUTICASONE PROPIONATE NA SPR 16 GM BTL NAE SCH (08:22)
[2021-06-01] MEDS: SULFAMETHOXAZOLE/TRIMETHOPRIM DS 800/160MG TAB PO SCH (08:22)
[2021-06-01] MEDS: INSULIN GLARGINE SOLOSTAR 100 UNITS/ML 3 ML PEN SC SCH (08:25)
[2021-06-01 08:34] LABS: BUN Creatinine Ratio 20.1 (10-20); Calcium 8.7 mg/dl (8.5-10.1); Creatinine Clr Calc Pharmacy 33.6 ml/min; Est GFR (African American) 26.1 ml/min; Est GFR (Non-African American) 22.5 ml/min; Potassium 4.5 mmol/L (3.5-5.1)
[2021-06-01] MEDS ORDERED: INSULIN GLARGINE SOLOSTAR 100 UNITS/ML 3 ML PEN SC SCH (09:00)
--- NOTE | 2021-06-01 09:42 | Nephrology Progress Note ---
Date of Service June 01, 2021 Assessment & Plan (1) Leg edema: Plan: * Diuresed 2700 cc yesterday. Weight has dropped from 273lbs on admission to 253lbs (EDW 230lbs). LE swelling is moderately improved. Cr has risen to 3.0 and remains stable (EGFR 22 cc/min) * 05/26/21 Echocardiogram: LVEF 55-60%, mild concentric LVH, grade II diastolic dysfunction, normal RVSP * Continue Bumex at outpatient dose of 3mg po BID * Continue 1500 mg/day NaCl restricted diet * Patient has follow up scheduled next week at CHF clinic. He is also scheduled to be seen in the Nephrology office 06/08 * Discussed plan of care w/ patient today. Advised outpatient vascular surgery evaluation for AVF creation due to worsening kidney function and recurrent hospitalization for IV diuretic therapy (2) CKD (chronic kidney disease): Plan: * Baseline function fluctuates based upon volume status. Cr ranges 2.0 - 2.6 * Urinalysis is negative for protein or blood, UPCR 0.2 * 08/31 renal US: R 11.2cm, L 10.5cm. No hydronephrosis, stones or mass (3) Anemia: Plan: * Mild, asymptomatic anemia. Hgb 10.9 * 05/30/21 iron studies: Iron sat 15%, ferritin * Day #3 of 5 IV Venofer Admission and Anticipated Discharge Date Admission Date: May 25, 2021 Subjective Mr. Swartz was seen & examined in his hospital room this morning. He reports brisk UO yesterday and notes that his leg edema continues to improve. He denies cramping or orthostasis. He was able to ambulate in the hallway yesterday and is now anxious to return home. He did receive education regarding low sodium diet from the dietitian. Review of Systems Constitutional: no fever Eyes: no problem reported Ear, Nose, Mouth, Throat: no problem reported Respiratory: no cough and no dyspnea Cardiovascular: no chest pain, no palpitations and no edema Gastrointestinal: no abdominal pain, no nausea, no vomiting and no diarrhea/loose stools Genitourinary: no dysuria, no urinary hesitancy or no hematuria Musculoskeletal: no back pain Integumentary: no rash Neurologic: no falls, no dizziness and no confusion Physical Exam Constitutional: not in distress Eyes: PERRL Neck: + thick neck; neck nontender Respiratory: normal respiratory effort, lungs clear to auscultation Cardiovascular: Rate/Rhythm: regular rate and regular rhythm Extremities: + edema (1+ LE edema, legs wrapped) Gastrointestinal (Abdomen): Inspection/Auscultation: + abdomen distended Percussion/Palpation: abdomen nontender and no guarding Musculoskeletal: Extremities: no cyanosis Results & Data ([facility]) Vital Signs (Past 12 Hours) Vital Signs Temp Pulse Resp BP Pulse Ox 05/31/21 23:38 36.9 C 63 16 141/78 H 94 Laboratory Results Laboratory Tests 06/01/21 06/01/21 07:28 07:28 WBC 8.40 Hgb 10.9 L Hct 31.7 L Plt Count 216 Sodium 129 L Potassium 4.5 Chloride 95 L Carbon Dioxide 27 BUN 60 H Creatinine 3.00 H Glucose 283 H PG Care Time/CCT Total # of Minutes Spent Total Time Spent with Patient: Total time spent is greater than 50% in coordination of care (as documented) at patient's floor/unit and/or counseling patient: Coding Level of Care Code 88175 Subseq Hosp Care Lvl 3 Diagnoses Leg edema R60.0 CKD (chronic kidney disease) N18.9 Chronic kidney disease stage: unspecified stage Anemia D64.9 (1) CKD (chronic kidney disease) Chronic kidney disease stage: unspecified stage Qualified Code(s): N18.9 - Chronic kidney disease, unspecified
[2021-06-01] MEDS ORDERED: INSULIN GLARGINE SOLOSTAR 100 UNITS/ML 3 ML PEN SC ONE (10:00)
[2021-06-01] MEDS: INSULIN ASPART 100 UNITS/ML 3 ML PEN SC SCH (10:01)
[2021-06-01] MEDS: IRON SUCROSE 200 MG in 0.9 % SODIUM CHLORIDE 100 ML IV SCH (10:09)
[2021-06-01] MEDS: NYSTATIN CR 15 GM TUBE EXT SCH (10:10)
--- NOTE | 2021-06-01 10:45 | Discharge Summary ---
Date of Service June 01, 2021 Admission HPI Per Admitting Provider 55 YOM with past medical history of: CHF(HFpEF) , HLD , HTN , CKD, Obesity, DMII on insulin, CKD III, osteomyelitis of the right lower extremity. Patient is followed in the heart failure clinic and was seen there last week for this issue. The patient reports increase in lower extremity edema and reports 20-30 pound weight gain over the past month and unable to shed it. He has recently had his BUMEX dose increased up 2 mg BID which was increased to 3mg BID. He continues to report no change and that he has poor response to oral diuresing. He reports compliance with his CPAP and medications, but endorses dietary indiscretion frequently. [facility] and continued swelling of his lower extremities and was referred to the EMD. In the EMD he had routine labs drawn, ECG, and CXR performed and medicine team was notified for admission. Patient will be admitted with trial of IV diuresis and monitoring of his renal function and hemodynamics and weights. Admission Exam Per Admitting Provider PHYSICAL EXAM: General: awake, alert, no apparent distress Head: Normocephalic, atraumatic ENT: PERRL, EOMI, no pharyngeal exudate, mucous membranes moist Neuro: AAO x 3, speech clear and appropriate, strength intact bilaterally 5/5, sensation intact and equal all extremities and dermatomes, no pronator drift Chest: equal rise and fall of the chest, no accessory muscle use, no heaves or thrills, scattered crackles, on room air, Cardiac: Regular rate and rhythm, telemetry reviewed-NSR , skin warm dry, cap refill <3 seconds, peripheral pulses +2 no JVD, no murmur, Pitting edema to the just below the knees bilaterally GI: NABS x 4 quadrants, soft, nontender to palpation, no rebound, guarding or tenderness : obese, no body wall edema, spontaneously voiding, no pain, no CVA tenderness, Extremities: venous stasis ulcerations to bilateral lower extremities, calfs nontender to palpation Psych: Normal mood and affect Skin:well healing ulceration to left lateral foot, covered with aquacell. Principal Diagnosis 1. Acute on chronic diastolic CHF 2. Poorly controlled diabetes mellitus, insulin-dependent 3. Stage IV chronic renal failure, baseline creatinine around 3 4. dyslipidemia Discharge Exam Awake and alert, sitting up in bed Respiratory normal respiratory effort Auscultation: lungs clear to auscultation bilaterally Cardiovascular RRR, no murmur, no edema Gastrointestinal (Abdomen) normal bowel sounds, soft, nontender, no hepatosplenomegaly obese Discharge Data Allergies Allergy/AdvReac Type Severity Reaction Status Date / Time amitriptyline AdvReac Mild muscle Verified 05/25/21 17:31 twitching hydralazine AdvReac Mild Rash Verified 05/25/21 17:31 Consultations 05/29/21 09:01 Consult Nephrology Routine Diabetes Follow up Diabetes Follow-up Needed for HgbA1c >9% Hospital Course (1) Diastolic CHF: 05/26/21 Repeat echocardiogram supports diastolic dysfunction: Echocardiogram: LVEF 55-60%, mild concentric LVH, grade II diastolic dysfunction, normal RVSP Wt 124.6kg on admission with dry weight closer to 105kg) Patient's been educated in the past has been on multiple different diuretics without success and does have frequent dietary indiscretions at home due to financial strain/processed foods Nephrology consulted -- recs needs IV diuresis + prn metolazone --> changed to Bumex 3mg po BID on 05/31 ater bump to arnold with metolazone, but metalozone stopped anticipate home soon Educated on low salt diet --> financial strain at home/dietary options as issue Continue to measure I&O, daily weights Continued on his metoprolol succinate 150mg daily Will need f/u CHF clinic at discharge Lower extremity compression wraps brought from home and applied -- giving him a break for now as they were cutting into his skin . no active drainage/opening but will need to continue to monitor Iron sat low --> discussed with nephrology and will order IV Venofer while inpatient 200mg IV x 5 days or however long he remains inpatient --- Patient was initially admitted with significant edema, felt to be diastolic CHF. Patient has worsening renal function as well. Patient was diuresed with IV Bumex. This is being changed over to Bumex 3 mg twice daily. Patient is followed by nephrology as noted below. (2) Stage 4 chronic kidney disease due to diabetes mellitus: arnold with ckd, nephrology adjuting meds Renal function slowly worsening her course of admission. Creatinine appears to be 3. Followed by nephrology, they feel the patient will eventually require dialysis, recommending outpatient vascular consultation for placement of graft/fistula. He has a follow-up appointment on 06/08 which is told to keep. (3) Acute kidney injury: Patient's renal function may be a new set point Nephrology as above (4) Dyslipidemia: Atorvastatin 80 mg (5) Foot ulcer, left: Is on Bactrim for foot ulcer -- cx hx with finegoldia magna, staph aureus, Enterobacter cloacae , bactrim may negatively affect renal function Wound RN consulted No evidence worsening infection currently (6) Morbid obesity: Certainly impacts could lower venous stasis and persistent lower extremity edema (7) WHIT (obstructive sleep apnea): 8-14 AutoPap home per patient -- has been faithful with use while inpat ient and with napping (8) Poorly controlled diabetes mellitus: A1c 9.2 from prior value 10.0 Holding home metformin and Jardiance Basal bolus insulin taking over for home regimen --> tightened ISS as sugars persistently elevated. Was managed on basal/bolus last admission Pharmacy consulted for glycemic management BSgs improving *Need to be cautious about metformin at d/c given his worsening CKD Continue to monitor Jardiance and Metformin are being held secondary to worsening renal function. Patient is on insulin including Lantus 50 mg nightly along with mealtime insulin lispro. He is to continue these. He is to monitor his carbohydrate intake closely. Vit D Deficiency --> Continue supplementation. Prior level May 17 14.8 with elevated PTH 150. Nephrology on consult as above DVT Prophylaxis --Heparin SQ while inpatient Dispo: continued inpatient stay Total Time Total Time Spent Total Time Spent (In Minutes): 38 Discharge Plan Discharge Items Patient Disposition: Home - Self-Care Reason For Visit: EDEMA TO LOWER EXTREMITIES Discharge Diagnosis: 1. Acute on chronic diastolic CHF 2. Insulin-dependent diabetes mellitus, uncontrolled 3. Stage IV chronic kidney disease 5. Hyperlipidemia 6. Morbid obesity Condition on Discharge: Fair Activity: As commented below Lifting: Gradually increase as tolerated Non-emergency contact: Primary Care Provider and Game Farm Supervisor Call non-emergency contact if: you have any medication questions, your symptoms worsen and you have a fever Follow-up/Referrals: Jostin Alvarez MD [Physician] - 06/08/21 (Discussion of vascular referral for AV graft/fistula) Radha Artis PA-C [Physician [employer] Court Judge] - 06/03/21 2:00 pm Marbella Gomez PA-C [Primary Care Provider] - Diet: Carb Consistent or DM2 Fluids: 1500ml (6 cups) Addtl Attending Provider Instructions: Keep follow-up appointments as instructed Pending Studies at Discharge: No Stand-Alone Forms: My [facility] [employer], Smoking Cessation Medications and DC Order Prescriptions: Continued aspirin 81 mg tablet,delayed release (DR/EC) 81 mg PO BID RF: 0 doxazosin 4 mg tablet 4 mg PO QPM RF: 0 melatonin 10 mg capsule 10 mg PO HS RF: 0 bumetanide 2 mg tablet 3 mg PO BID RF: 0 polyethylene glycol 3350 17 gram/dose powder 17 gm PO BID PRN (Reason: constipation) Qty: 510 RF: 5 magnesium oxide 400 mg Capsule 400 mg PO HS RF: 0 atorvastatin 80 mg Tablet 80 mg PO QPM RF: 0 metoprolol succinate 50 mg Tablet Extended Release 24 Hr 150 mg PO QPM RF: 0 omeprazole 20 mg Capsule,Delayed Release(Dr/Ec) 20 mg PO QPM Qty: 0 RF: 0 gabapentin 600 mg tablet 600 mg PO TID RF: 0 Humulin R U-500 (Conc) Insulin 500 unit/mL Solution 50 unit subcut TID RF: 0 insulin glargine 100 unit/mL (3 mL) Insulin Pen 50 unit SUBCUT PM RF: 0 omega 5-cro-odc-fish oil [Fish Oil] 1,000 mg (120 mg-180 mg) Capsule 1 cap PO QPM RF: 0 cholecalciferol (vitamin D3) [Vitamin D3] 25 mcg (1,000 unit) tablet,chewable 2,000 units PO QPM RF: 0 cyanocobalamin (vitamin B-12) [Vitamin B-12] 1,000 mcg tablet 1,000 mcg PO HS RF: 0 fluticasone propionate [Flonase Allergy Relief] 50 mcg/actuation [place],Suspension 1 spray INTRANASAL BID RF: 0 tramadol 50 mg Tablet 50 mg PO Q6H PRN (Reason: Pain) RF: 0 ferrous sulfate 325 mg (65 mg iron) tablet 325 mg PO QAM RF: 0 acetaminophen [Acetaminophen Extra Strength] 500 mg Tablet 1,000 mg PO Q6H PRN (Reason: Headache) RF: 0 Discontinued bumetanide 1 mg tablet 1 mg PO .COMPLEX Qty: 60 RF: 2 metformin 500 mg Tablet 500 mg PO BID RF: 0 Jardiance 10 mg Tablet 10 mg PO QPM RF: 0 sulfamethoxazole-trimethoprim 800-160 mg Tablet 1 tab PO Q12 Qty: 60 RF: 0 Discharge Orders: Discharge Order (Routine); Ordered 06/01/21 Ordered By: Filippo Maria/Other Patient Handouts: High Blood Sugar (Hyperglycemia), Managing Type 2 Diabetes, Special Foot Care for Diabetes Admission Data Admit Date/Time: 05/25/21 21:37 Attending Provider: Filippo Hernandez Admit Provider: Ty Chowdhury Primary Care Provider: Marbella Gomez Other Providers: [facility] ; Jostin Alvarez Coding Level of Care Code 15170 OBS Care - Discharge Diagnoses Diastolic CHF I50.33 Heart failure chronicity: acute on chronic Stage 4 chronic kidney disease due to diabetes mellitus E11.22; N18.4 Acute kidney injury N17.9 Dyslipidemia E78.5 Foot ulcer, left L97.529 Morbid obesity E66.01 WHIT (obstructive sleep apnea) G47.33 Poorly controlled diabetes mellitus E11.65
== END 2021-06-01 12:22 | disposition home or self-care (01) | DRG 291 ==
LOC: ED 13:50 → 3N 21:37 → SUATTDRO 21:37 → 3N 22:02 → 3W 06-01 07:52

== ENCOUNTER 2021-07-16 12:19 | Observation (INO) ==
--- NOTE | 2021-07-09 11:42 | PAT Medication Instructions ---
Medication Instructions Date of Service July 09, 2021 Home Medications Medication Instructions Recorded omeprazole 20 mg capsule,delayed 20 mg PO QPM #0 cap 08/14/19 release polyethylene glycol 3350 17 17 gm PO BID PRN #510 gm 12/23/19 gram/dose oral powder atorvastatin 80 mg tablet 80 mg PO QPM magnesium oxide 400 mg PO HS metoprolol succinate 50 mg tablet,extended release 24 hr 150 mg PO QPM omega 4-pvz-jgy-fish oil 1,000 mg (120 mg-180 mg) capsule (Fish Oil) 1 cap PO QPM omeprazole 20 mg capsule,delayed release 20 mg PO QPM cholecalciferol (vitamin D3) 25 mcg (1,000 unit) chewable tablet (Vitamin D3) 2,000 units PO QPM cyanocobalamin (vitamin B-12) 1,000 mcg tablet (Vitamin B-12) 1,000 mcg PO HS gabapentin 600 mg tablet 600 mg PO TID polyethylene glycol 3350 17 gram/dose oral powder 17 gm PO BID PRN aspirin 81 mg tablet,delayed release 81 mg PO BID tramadol 50 mg tablet 50 mg PO Q6H PRN fluticasone propionate 50 mcg/actuation nasal spray,suspension (Flonase Allergy Relief) 1 spray INTRANASAL BID insulin regular hum U-500 conc 500 unit/mL subcutaneous soln (Humulin R U-500 (Concentrated) Insulin) 50 unit SUBCUT TIDM doxazosin 4 mg tablet 4 mg PO QPM insulin glargine 100 unit/mL (3 mL) subcutaneous pen (Lantus Solostar U-100 Insulin) 50 unit SUBCUT PM ferrous sulfate 325 mg (65 mg iron) tablet 325 mg PO QAM acetaminophen 500 mg tablet (Acetaminophen Extra Strength) 1,000 mg PO Q6H PRN bumetanide 2 mg tablet 3 mg PO BID melatonin 10 mg capsule 10 mg PO HS ASK your prescriber and surgeon aspirin 81 mg tablet,delayed release 81 mg PO BID STOP taking 2 weeks before surgery (or as soon as possible if surgery is within 2 weeks) omega 5-rtc-jey-fish oil 1,000 mg (120 mg-180 mg) capsule (Fish Oil) 1 cap PO QPM DO NOT take the morning of surgery polyethylene glycol 3350 17 gram/dose oral powder 17 gm PO BID PRN ferrous sulfate 325 mg (65 mg iron) tablet 325 mg PO QAM bumetanide 2 mg tablet 3 mg PO BID Take morning of surgery With a small sip of water, OTHERWISE NOTHING TO EAT OR DRINK AFTER MIDNIGHT: acetaminophen 500 mg tablet (Acetaminophen Extra Strength) 1,000 mg PO Q6H PRN (okay to take up to 4 hours prior to surgery if needed) gabapentin 600 mg tablet 600 mg PO TID tramadol 50 mg tablet 50 mg PO Q6H PRN (okay to take up to 4 hours prior to surgery if needed) fluticasone propionate 50 mcg/actuation nasal spray,suspension (Flonase Allergy Relief) 1 spray INTRANASAL BID Take evening before surgery polyethylene glycol 3350 17 gram/dose oral powder 17 gm PO BID PRN (if needed) insulin regular hum U-500 conc 500 unit/mL subcutaneous soln (Humulin R U-500 (Concentrated) Insulin) 50 unit SUBCUT TIDM doxazosin 4 mg tablet 4 mg PO QPM insulin glargine 100 unit/mL (3 mL) subcutaneous pen (Lantus Solostar U-100 Insulin) 50 unit SUBCUT PM acetaminophen 500 mg tablet (Acetaminophen Extra Strength) 1,000 mg PO Q6H PRN (if needed) bumetanide 2 mg tablet 3 mg PO BID melatonin 10 mg capsule 10 mg PO HS Insulin Dependent Diabetic Patients * Test your blood sugar the morning of surgery * If Blood Sugar is GREATER THAN 150, take HALF of your regular dose of: insulin regular hum U-500 conc 500 unit/mL subcutaneous soln (Humulin R U-500 (Concentrated) Insulin) take 25 units * If Blood Sugar is LESS THAN 150, DO NOT TAKE ANY: insulin regular hum U-500 c onc 500 unit/mL subcutaneous soln (Humulin R U-500 (Concentrated) Insulin) Other Notes If you have any questions please call us at [phone] or [phone] or [phone] or [phone]
--- NOTE | 2021-07-12 08:23 | Anesthesiology Consultation ---
Date of Service July 12, 2021 Assessment & Plan (1) Encounter for pre-operative examination: - COVID screening: Per assessment on 07/12: Travel screen negative, no known COVID-19 positive contacts or current COVID-19 related symptoms. Patient vaccinated. Surgeon arranging preop COVID testing (scheduled 07/14; [place]). Awaiting results. - S/P Left foot I&D (10/08/20): LMA#[address] [facility], S/P Left foot I&D, Stimulan beads (02/12/21): MAC at [facility] - Heart failure clinic (07/09/21): "Lower extremity edema: Patient continues to struggle with edema and has been difficult to manage in the past due to his dietary non-compliance. His Pro-BNP in the past and again on most recent labs has been below 300 despite continued symptoms indicating that his fluid retention is not cardiac related and likely multifactorial. Could also be from dietary non-compliance, high-sodium intake and CKD. His weight is stable since discharge. He has minimal pulmonary symptoms today.. Venous studies completed last week. R GSV and L SSV are amenable to ablation. Given that he has mroe acute issues right now with his Achilles and AVF he wishes to hold off on further evaluation or intervention at this time.. He has a history of hyperkalemia and is no longer taking potassium supplement. He's now slightly hypokalemic on his labs. He's scheduled with Dr. Alvarez next week. He has had Lasix in the past but did not have a good effect. Daily standing weights recommended. His previous dry weight was 230-235 lb in 2019. Low sodium diet, <2,000 mg daily, strongly recommended- advised him to be very strict about this with his current symptoms. Encourage fluid restriction of 1500 mL per day.. Hypertension: BP is adequate today. Lisinopril has been discontinued in the past by the PCP due to CKD. Diltiazem also discontinued due to adverse effects (bradycardia). He has a prescription for Hydralazine but was having a possible reaction so it was discontinued. He has since started Doxazosin 4 mg per PCP. Otherwise, continue current antihypertensive therapy with metoprolol.. Hyperkalemia: Not currently taking potassium supplementation.. CKD: Manged by Dr. Alvarez. Referral placed with Dr. Leon for AVF creation." F/U 6 months recommended. - Nephrology office visit (07/11/21): "CHRONIC KIDNEY DISEASE: Cr has risen to 3.0 w/ EGFR 22 cc/min.. Refer to Dr. Leon for AVF creation.. HYPERTENSION: Blood pressure is currently acceptable. No change to medical regimen at this time.. DIABETES: Patient is working / [facility] to improve glycemic control" - Check BSG AM DOS - LUE limb restriction: plan for upcoming fistula placement/possible dialysis Chart Review Chart Review: Acceptable Risk for Surgery (pending surgeon-ordered PCP clearance) and Patient seen in Pre Admission Testing Teaching & Discussion Pre-Anesthesia Teaching/Discussion Notes: Instructed NPO after midnight before surgery,except medications with 15 cc of water. Medication instructions provided according to the PAT guidelines. History Surgery Operation Date: 07/16/21 14:55 Proposed Procedures p Repair Ruptured Achilles Tendon - Iván Bernardo DO Height/Weight Height: 5 ft 6 in Weight: 123.2 kg Allergies Allergy/AdvReac Type Severity Reaction Status Date / Time amitriptyline AdvReac Mild Muscle Verified 07/09/21 11:07 twitching hydralazine AdvReac Mild Rash Verified 07/09/21 11:07 Medications Home Medications Medication Instructions Recorded Confirmed Last Taken atorvastatin 80 mg tablet 80 mg PO QPM 08/02/18 07/09/21 05/25/21 magnesium oxide 400 mg PO HS 08/02/18 07/09/21 05/24/21 metoprolol succinate 50 mg 150 mg PO QPM 08/02/18 07/09/21 05/25/21 tablet,extended release 24 hr omega 4-mcl-nry-fish oil 1,000 mg 1 cap PO QPM 02/20/19 07/09/21 05/25/21 (120 mg-180 mg) capsule (Fish Oil) omeprazole 20 mg capsule,delayed 20 mg PO QPM #0 cap 08/14/19 07/09/21 05/25/21 release cholecalciferol (vitamin D3) 25 2,000 units PO QPM tab 11/19/19 07/09/21 05/25/21 mcg (1,000 unit) chewable tablet (Vitamin D3) cyanocobalamin (vitamin B-12) 1,000 mcg PO HS tab 11/19/19 07/09/21 05/24/21 1,000 mcg tablet (Vitamin B-12) gabapentin 600 mg tablet 600 mg PO TID 12/06/19 07/09/21 05/25/21 14:00 polyethylene glycol 3350 17 17 gm PO BID PRN #510 gm 12/23/19 07/09/21 Unknown gram/dose oral powder aspirin 81 mg tablet,delayed 81 mg PO BID tab 01/16/20 07/09/21 05/25/21 release tramadol 50 mg tablet 50 mg PO Q6H PRN 02/21/20 07/09/21 02/10/21 fluticasone propionate 50 1 spray INTRANASAL BID 05/05/20 07/09/21 05/25/21 mcg/actuation nasal spray,suspension (Flonase Allergy Relief) insulin regular hum U-500 conc 500 50 unit SUBCUT TIDM 09/18/20 07/09/21 05/25/21 12:00 unit/mL subcutaneous soln (Humulin R U-500 (Concentrated) Insulin) doxazosin 4 mg tablet 4 mg PO QPM 10/01/20 07/09/21 05/25/21 insulin glargine 100 unit/mL (3 50 unit SUBCUT PM 10/16/20 07/09/21 05/25/21 mL) subcutaneous pen (Lantus Solostar U-100 Insulin) ferrous sulfate 325 mg (65 mg 325 mg PO QAM 02/03/21 07/09/21 05/25/21 iron) tablet acetaminophen 500 mg tablet 1,000 mg PO Q6H PRN 02/12/21 07/09/21 02/11/21 09:00 (Acetaminophen Extra Strength) bumetanide 2 mg tablet 3 mg PO BID tab 05/17/21 07/09/21 05/25/21 melatonin 10 mg capsule 10 mg PO HS 05/17/21 07/09/21 05/24/21 Past Medical History Medical History Chronic back pain Chronic kidney disease Plan for possible dialysis in the future (under surveillance), will be plac ing fistula in near future preventatively Depression Diabetes IDDM Diastolic CHF Dyslipidemia GERD (gastroesophageal reflux disease) Hypertension Migraine Morbid obesity Osteoarthritis Sleep apnea CPAP Temporomandibular joint disorder Occasional clicking, no locking Exercise / Class Metabolic Activity III < 4 Walking/Shop/Light housework (Uses a knee scooter for aid with ambulation) Past Family History Family History Father Diabetes Mother Diabetes Other Coronary heart disease Hypertension No family history of adverse response to anesthesia Denies family history of Crohn's disease Kidney disease Colorectal cancer Ulcerative colitis Past Surgical History Surgical History History of incision and drainage Left foot multiple with skin graft (total of 5) Left foot I&D (10/08/20): LMA#[address] [facility] Left foot I&D, Stimulan beads (02/12/21): MAC at [facility] History of open reduction and internal fixation (ORIF) procedure Left ankle Bimalleolar Fracture (11/2019) History of placement of ear tubes Right ear History of tonsillectomy and adenoidectomy Hx of cataract surgery R/L Hx of colonoscopy [place] teeth extracted Past Anesthesia History No Hx of Anesthesia Complications and No Family Hx of Anesthesia Complications History of PONV No Hx of PONV and No Hx of Motion Sickness Social History Smoking Status: Former smoker tobacco type: cigarettes Do You Dip or Chew Tobacco: No Smoking End Date: Quit several years ago Hx Alcohol Use: Yes Alcohol type: beer alcohol intake frequency: holidays/special occasions only (Very rare) Hx Substance Use: No substance use type: does not use Review of Systems Patient denies chest pain, shortness of breath, fever, chills, cough, wheezing, palpitations. Physical Exam Vital Signs VITALS BP 127/69 P 57 TEMP 98.4 SP02 97%RA RESP 18 PHYSICAL Full cervical extension range of motion. Full TMJ range of motion. TMD 3.5 finger breaths Mallampati Score 3 Dentition: edentulous Lungs: clear throughout to auscultation Cardiac: regular rate and rhythm, no murmurs noted Spine: normal Carotid arteries: negative bruit Extremities: + edema Very thick neck Lab Results Anesthesia Preop Results Results Anesthesia Widget: WBC 8.95 K/uL (4.8-10.8) 07/07/21 Hgb 12.4 g/dL (14.0-18.0) L 07/07/21 Hct 37.0 % (42-52) L 07/07/21 Plt 249 K/uL (130-400) 07/07/21 Na 137 mmol/L (136-145) 07/12/21 K 3.8 mmol/L (3.5-5.1) 07/12/21 Cl 97 mmol/L (98-107) L 07/12/21 CO2 34 mmol/L (21-32) H 07/12/21 BUN 46 mg/dl (7-18) H 07/12/21 Creat 2.31 mg/dl (0.6-1.4) H 07/12/21 Glucose Level 163 mg/dl (70-99) H 07/12/21 POC Glucose 318 mg/dl (70-99) H* 06/01/21 TSH 3.190 uIu/ml (0.300-4.500) 05/28/21 HA1c 9.2 % (4.5-5.6) H 05/29/21 Urine Color Yellow 05/25/21 Urine Appearance Clear (Clear) 05/25/21 Urine pH 6.5 (4.5-7.5) 05/25/21 Urine Specific [place] 1.012 (1.000-1.030) 05/25/21 Urine Protein Negative (Negative) 05/25/21 Urine Glucose (UA) 3+ (Negative) H 05/25/21 Urine Ketones Negative (Negative) 05/25/21 Urine Blood Negative (Negative) 05/25/21 Urine Nitrite Negative (Negative) 05/25/21 Urine Bilirubin Negative (Negative) 05/25/21 Urine Urobilinogen Negative (Negative) 05/25/21 Urine Leukocyte Esterase Negative (Negative) 05/25/21 Lab Comments: Surgeon's office made aware of elevated glucose/a1c. Surgeon's office aware/obtaining PCP clearance. Testing Electrocardiogram Date: 05/25/21 Normal sinus rhythm at 64 bpm. LAD. Incomplete right bundle branch block. No significant change compared to 10/16/2020 per scoreboard operator review. Chest X-Ray Date: 05/25/21 Findings: + NAD Echocardiogram Date: 05/26/21 EF 55 to 60%. Grade 2 diastolic dysfunction. No regional motion abnormality. Mild concentric LVH. RVSP normal. No significant valvular disease.
--- NOTE | 2021-07-15 16:30 | History & Physical Report ---
Date of Service July 15, 2021 Assessment & Plan (1) Rupture of right Achilles tendon: Plan: Schedule a Right Repair Achilles Tendon for 07.16.21. All potential risks, benefits, complications, alternatives, and rehab have been discussed with the patient and he wishes to proceed. ASA 81 mg BID x 4 wks for post op DVT prophylaxis. History of Present Illness Chief Complaint: right ankle dysfunction Primary Care Provider: Marbella Gomez This is a patient that has been being treated for a chronic left foot ulcerat ion. He is making improvements with the ulcer. However, in a recent office visit, he complained of a giving out feeling of the right ankle and some difficulty with ambulating. He was set up for an MRI and noted a rupture of the achilles. He is being set up for surgical management. Allergies Allergy/AdvReac Type Severity Reaction Status Date / Time amitriptyline AdvReac Mild Muscle Verified 07/15/21 14:41 twitching hydralazine AdvReac Mild Rash Verified 07/15/21 14:41 Calcium Channel Blockers Allergy Rash, Uncoded 07/15/21 14:57 swelling Home Medications Medication Instructions Recorded Confirmed Type atorvastatin 80 mg tablet 80 mg PO QPM 08/02/18 07/15/21 History magnesium oxide 400 mg PO HS 08/02/18 07/15/21 History metoprolol succinate 50 mg 150 mg PO QPM 08/02/18 07/15/21 History tablet,extended release 24 hr omega 5-hyn-ubm-fish oil 1,000 mg 1 cap PO QPM 02/20/19 07/15/21 History (120 mg-180 mg) capsule (Fish Oil) omeprazole 20 mg capsule,delayed 20 mg PO QPM #0 cap 08/14/19 07/15/21 Rx release cholecalciferol (vitamin D3) 25 2,000 units PO QPM tab 11/19/19 07/15/21 History mcg (1,000 unit) chewable tablet (Vitamin D3) cyanocobalamin (vitamin B-12) 1,000 mcg PO HS tab 11/19/19 07/15/21 History 1,000 mcg tablet (Vitamin B-12) gabapentin 600 mg tablet 600 mg PO TID 12/06/19 07/15/21 History polyethylene glycol 3350 17 17 gm PO BID PRN #510 gm 12/23/19 07/15/21 Rx gram/dose oral powder aspirin 81 mg tablet,delayed 81 mg PO BID tab 01/16/20 07/15/21 History release tramadol 50 mg tablet 50 mg PO Q6H PRN 02/21/20 07/15/21 History fluticasone propionate 50 1 spray INTRANASAL BID 05/05/20 07/15/21 History mcg/actuation nasal spray,suspension (Flonase Allergy Relief) insulin regular hum U-500 conc 500 50 unit SUBCUT TIDM 09/18/20 07/15/21 History unit/mL subcutaneous soln (Humulin R U-500 (Concentrated) Insulin) doxazosin 4 mg tablet 4 mg PO QPM 10/01/20 07/15/21 History insulin glargine 100 unit/mL (3 50 unit SUBCUT PM 10/16/20 07/15/21 History mL) subcutaneous pen (Lantus Solostar U-100 Insulin) ferrous sulfate 325 mg (65 mg 325 mg PO QAM 02/03/21 07/15/21 History iron) tablet acetaminophen 500 mg tablet 1,000 mg PO Q6H PRN 02/12/21 07/15/21 History (Acetaminophen Extra Strength) bumetanide 2 mg tablet 3 mg PO BID tab 05/17/21 07/15/21 History melatonin 10 mg capsule 10 mg PO HS 05/17/21 07/15/21 History Past Med/Surg History Medical History Chronic back pain Chronic kidney disease Depression Diabetes Diastolic CHF Dyslipidemia GERD (gastroesophageal reflux disease) Hypertension Migraine Morbid obesity Osteoarthritis Sleep apnea Temporomandibular joint disorder Surgical History History of incision and drainage Left foot multiple with skin graft (total of 5) Left foot I&D (10/08/20): LMA#5 at [facility] Left foot I&D, Stimulan beads (02/12/21): MAC at [facility] History of open reduction and internal fixation (ORIF) procedure Left ankle Bimalleolar Fracture (11/2019) History of placement of ear tubes Right ear History of tonsillectomy and adenoidectomy Hx of cataract surgery R/L Hx of colonoscopy [place] teeth extracted Family History Father Diabetes Mother Diabetes Other Coronary heart disease Hypertension No family history of adverse response to anesthesia Denies family history of Crohn's disease Kidney disease Colorectal cancer Ulcerative colitis Social History Smoking Status: Former smoker Tobacco Type: Cigarettes Second Hand Exposure: Yes; Hx Alcohol Use: Yes Alcohol type: beer Hx Substance Use: No Preferred Language: Pakistani Communication Ability: Effective Endbander Required: No Beliefs That Will Affect Care: None marital status: Current Living Situation: Spouse Current Living Situation Comment: Four children, grown & in good health current occupational status: employed 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 Feels Safe at Home: Yes Assistive Devices: Cane, Glasses and Special Shoe Physical Exam Constitutional: well developed and well nourished; no acute distress ENMT: external ear and nose normal, oropharynx normal Neck: trachea midline Respiratory: normal respiratory effort, lungs clear to auscultation Cardiovascular: Rate/Rhythm: regular rate and regular rhythm Gastrointestinal (Abdomen): normal bowel sounds, soft, nontender, no hepatosplenomegaly Musculoskeletal: Ankle: + deformity (right achilles deformity) and + Garcia test positive (right); no skin erythema and no ecchymosis Skin: no rashes, warm and dry Neurologic: normal touch/pain/proprioception Psychiatric: Orientation: alert and oriented x 3 Speech: normal rate/rhythm/volume of speech Lymphatic: no cervical or axillary lymphadenopathy
[~2021-07-16 12:19] MED LIST changes: -ASPI81TA28 PO; -CALC500C70 PO; +EPINEPHrine INJ 1 MG/ML AMP ONE; -FURO-85 PO; -GABA-112 PO; -INSDGIPEN SC; -LISI20TA3 PO; -MCRK20 PO; -METO-452 PO; -MGNO400 PO; -NVLGI/PEN SC; +ROPIVACAINE 0.5% 5 MG/ML 30 ML VIAL ONE; -SIMV20TA2 PO; +SODIUM CHLORIDE 0.9% 1000ML IV SCH; -TRAM-10 PO
--- NOTE | 2021-07-16 12:37 | History & Physical Bridge Note ---
Date of Service July 16, 2021 History & Physical Bridge Note I have examined the patient, reviewed the History & Physical and in the interval since the performance of the History & Physical I have noted the following changes of clinical significance: no changes noted
[2021-07-16] MEDS ORDERED: BUPIVACAINE 0.5 % 5 MG/1 ML PF 10ML VIAL ONE (14:28)
[2021-07-16] MEDS ORDERED: PROPOFOL IV EMULSION 10 MG/ML 20 ML VIAL IV ONE (15:36)
[2021-07-16] MEDS ORDERED: ONDANSETRON INJ 2 MG/ML 2 ML VIAL ONE (15:36)
[2021-07-16] MEDS ORDERED: MIDAZOLAM HCL 1 MG/ML 2ML VIAL ONE (15:36)
[2021-07-16] MEDS ORDERED: DEXAMETHASONE SOD INJ 4 MG/ML VIAL ONE (15:36)
[2021-07-16] MEDS ORDERED: ROCURONIUM BROMIDE 10 MG/ML 5 ML VIAL IV ONE (15:36)
[2021-07-16] MEDS ORDERED: LIDOCAINE 2% 2 ML VIAL/AMP(20MG/ML) INFIL ONE (15:36)
[2021-07-16] MEDS ORDERED: fentaNYL citrate 100 MCG/2 ML VIAL ONE (15:36)
[2021-07-16] MEDS ORDERED: SUCCINYLCHOLINE 100MG/5ML SYR IV ONE (16:31)
[2021-07-16] MEDS ORDERED: KETAMINE 50 MG/5 ML SYRINGE ONE (16:40)
--- NOTE | 2021-07-16 17:49 | Post Operative Brief Note ---
Immediate Post Op Note v1 Date of Surgery July 16, 2021 Pre & Post Diagnosis Operation Date: 07/16/21 15:30 Pre-Op Diagnosis: Right Ankle distal Achilles tendon rupture, avulsion fracture posterior calcaneus, Bahman's deformity calcaneus Post-Op Diagnosis: Right Ankle distal Achilles tendon rupture, avulsion fracture posterior calcaneus, Bahman's deformity calcaneus I identified the patient and participated in the time-out.: Yes Procedure Operation Date: 07/16/21 15:30 Actual Procedures p Right Repair Achilles Tendon rupture; resection of Bahman's deformity, resection avulsion fracture posterior calcaneus (Right) - Iván Bernardo DO Surgeon Iván Bernardo DO Family Medicine Physician Assistant Jaden Garcia PA-C Estimated Blood Loss 5 Findings Consistent with Post-Op Diagnosis Anesthesia Type General Regional Complications none Disposition Accompanied Patient To Recovery: No
--- NOTE | 2021-07-16 18:43 | Anesthesiology Progress Note ---
Date of Service July 16, 2021 Anesthesia Post Procedure Vital Signs Vital Signs: Temp Pulse Pulse Resp BP Pulse Ox 07/16/21 18:35 62 12 177/69 H 100 07/16/21 18:25 63 14 179/67 H 100 07/16/21 18:15 63 12 180/73 H 100 07/16/21 18:07 36.1 C L 63 61 14 163/60 H 100 07/16/21 12:59 36.9 C 61 18 141/68 H 97 Transfer of Care Handoff Completed per policy Notes Mental Status: alert / awake / arousable Patient Amnestic to Procedure: Yes Nausea / Vomiting: adequately controlled Pain: adequately controlled Airway Patency, RR, SpO2: stable & adequate BP & HR: stable & adequate Hydration State: stable & adequate Anesthetic Complications: no major complications apparent
[2021-07-16] MEDS ORDERED: ACETAMINOPHEN 500 MG TAB PO STA (18:59)
[2021-07-16] MEDS ORDERED: ACETAMINOPHEN 500 MG TAB ONE (19:01)
--- NOTE | 2021-07-16 19:37 | Operative Report (OR) ---
DATE OF PROCEDURE: 07/16/2021 PREOPERATIVE DIAGNOSES: 1. Right ankle distal Achilles tendon rupture. 2. Bahman deformity. 3. Avulsion fracture of the posterior calcaneus. POSTOPERATIVE DIAGNOSES: 1. Right ankle distal Achilles tendon rupture. 2. Bahman deformity. 3. Avulsion fracture of the posterior calcaneus. PROCEDURE: 1. Right Achilles tendon repair with Arthrex SpeedBridge anchors. 2. 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 3. Resection of avulsion fracture, posterior calcaneus. SURGEON: Iván Bernardo DO. BUYER BROKER: Jaden Garcia PA-C who was present for patient positioning, sterile prep and drape, management of retractors and instruments. He was present through the critical portions of the case i ncluding wound closure, application of sterile dressing and transport of the patient to recovery. ANESTHESIA: General, regional. SPECIMENS: None. DRAINS: None. COMPLICATIONS: None. BLOOD LOSS: 5 mL. PERTINENT HISTORY: This is a 56-year-old gentleman who is a chronic poorly controlled diabetic, who after a lengthy period of time for limitation in weightbearing and walking due to ulceration on his l eft foot, the patient went to push off on his right foot, felt a painful pop in the posterior aspect of his ankle. He then felt severe profound weakness with plantar flexion of the right foot. He was then seen eventually in the orthopedic clinic and had an MRI ordered, placed in a boot, noted to have a rupture of the distal Achilles with a Bahman deformity and avulsion fracture of the posterior ariel caneus. The patient was then scheduled for surgery as indicated. All potential risks, benefits, complications, alternatives, rehab potential for incomplete relief of symptoms, need for further surgery, DVT, PE, , persistent pain, swelling, scarring, weakness, ne urovascular injury, wound complications, hardware failure, nonunion, malunion and bone fracture with high risk of need for revision surgery and/or amputation in his case were discussed. The patient dec ided to proceed with the procedure as indicated. DESCRIPTION OF PROCEDURE: After a regional anesthetic was administered by the anesthesiologist, the patient was taken to the operative suite and placed supine on the operating room table. After review of consent and identification of proper site, the patient was anesthetized, endotracheal tube was pl aced. He was then rolled prone over bolsters. All bony prominences were properly padded and protect ed. Tourniquet was applied high on the right thigh over cast padding. Right lower extremity was carlo rilely prepped and draped in the usual sterile fashion, elevated and exsanguinated with an Esmarch ba ndage and tourniquet inflated to 350 mmHg. Next, a #15 blade scalpel was used to make an incision in the posterior medial aspect of the heel jus t medial to the border of the Achilles tendon. The incision was deepened through skin and subcutaneo us tissue. Meticulous hemostasis was achieved with electrocautery. Full thickness skin flaps develo ped. The paratenon was then entered with a 15-blade scalpel and elevated carefully from the tendon. Significant scarring was noted distally at the interface between the ruptured tendon and the calcane al bone. Noted to be significant avulsion fracture partially attached to the distal Achilles, some at tached to the calcaneus, some floating in the interspace. Next, scar tissue was sharply debrided free. A #15 blade was then used to resect the avulsion fractu re of the posterior calcaneus and some of the Sharpey's fibers were left intact in the distal aspect of the Achilles tendon. Next, the tendon was then irrigated with sterile saline until clear and then immature clot and fibrous tissue was then sharply excised from the distal Achilles followed by use o f #2 FiberWire Krackow locking loop whipstitch approximately 3.5 cm at the distal aspect of the tendo n, both up and down. Next, the tendon was then placed on stretch to mobilize it and then soft tissue contractures were then released using a large Metzenbaum scissor. Next, the site was copiously irri gated with sterile saline until clear. Next, the attention was then directed toward the superior calcaneus, there was noted to be a Bahman' s deformity, which was then resected using a rongeur. This is then gently rasped smooth and then irr igated with sterile saline. Next, the debris and fragmentation of the calcaneus was then also lavage d clear. Next, a SpeedBridge drill x2 for two 4.75 mm SwiveLock anchors were placed in the superior medial and lateral aspects of the posterior calcaneus approximately 1-1.2 cm spaced. Next, the Fiber Tapes were then passed into the distal 1.5-2 cm of the distal Achilles drawing it closer to the calca neus. Foot was held in plantar flexion. This allowed direct contact of the tendon and the bone. Next, the suture swages were then cut using a 15 blade scalpel, releasing the 2 limbs, which were the n crisscrossed and then passed through the eyelet of the distal 4.75 mm SwiveLock anchors. Sutures w ere shuttled respectively into the 5.5 mm distal anchors, which were then drilled and then placed int o the distal calcaneus making approximately 1.25 mm box of 4 anchors at the posterior aspect of the c alcaneus, stabilizing into the calcaneal bone. Next, the tendon was approximated to the superior pos terior calcaneus. Appropriate tension was then placed across the construct and then the distal Swive Lock anchors were then buried into the bone, stabilizing the Achilles to the posterior aspect of the calcaneus. Once this construct was stabilized, the three #2 FiberWire sutures were then used with a free needle to suture into the posterior Achilles to further reinforce the repair. The Krackow locking loop sutu res were also sutured into the construct. All excess suture was then cut with a 15 blade scalpel, le aving a near-anatomic well-fixed Achilles in the posterior aspect of the calcaneus. The site was copi ously irrigated with sterile saline until clear. The paratenon was then closed using 2-0 Vicryl, the dermis was closed using buried interrupted 3-0 Vi cryl and the skin was closed using nylon sutures. A sterile compressive dressing and bulky [facility] plaster splint was applied to the right lower extremity in gravity equinus overwrapped with an Ac e wrap. The tourniquet was released. Normal hyperemic response returned to the toes. The patient w as awakened, rolled supine on the transfer cart and then taken to recovery in stable condition. Job ID: [id number]
[2021-07-16] MEDS: SODIUM CHLORIDE 0.9% 1000ML 1,000 ML IV SCH (19:40)
[2021-07-16] MEDS ORDERED: HYDROmorphone INJ 0.5 MG/0.5 ML SYR IV PRN (19:42)
[2021-07-16] MEDS ORDERED: PHARMACY GLYCEMIC MGMT CONSULT PRN (19:42)
[2021-07-16] MEDS ORDERED: NO NSAIDS SCH (19:42)
[2021-07-16] MEDS ORDERED: POLYETHYLENE (MIRALAX) 17 GM PACK PO PRN (19:42)
[2021-07-16] MEDS ORDERED: bisacodyL 10 MG SUPP PR PRN (19:42)
[2021-07-16] MEDS ORDERED: NALOXONE HCL 0.4 MG/1 ML VIAL/CARP IV PRN (19:42)
[2021-07-16] MEDS ORDERED: METOCLOPRAMIDE HCL INJ 5 MG/ML 2 ML VIAL IV PRN (19:42)
[2021-07-16] MEDS ORDERED: MAGNESIUM HYDROXIDE SUSP 30 ML UDC PO PRN (19:42)
[2021-07-16] MEDS ORDERED: ONDANSETRON INJ 2 MG/ML 2 ML VIAL IV PRN (19:42)
[2021-07-16] MEDS ORDERED: ALUMINUM/MAGNESIUM SUSP 30 ML UDC PO PRN (19:42)
[2021-07-16] MEDS ORDERED: diphenhydrAMINE Capsule 25 MG CAP PO PRN (19:42)
[2021-07-16] MEDS ORDERED: CARBOHYDRATES FOR HYPOGLYCEMIA PO PRN (20:30)
[2021-07-16] MEDS ORDERED: DEXTROSE 50% 50 ML SYRINGE IV PRN (20:30)
[2021-07-16] MEDS ORDERED: GLUCAGON FOR INJ 1 MG VIAL IM PRN (20:30)
[2021-07-16] MEDS ORDERED: GLUCOSE 10 TABS/TUBE PO PRN (20:30)
[2021-07-16] MEDS ORDERED: GLUCOSE 40% GEL 15 GM TUBE PO PRN (20:30)
[2021-07-16] MEDS ORDERED: ASPIRIN 81 MG ECTAB PO SCH (21:00)
[2021-07-16] MEDS ORDERED: INSULIN GLARGINE SOLOSTAR 100 UNITS/ML 3 ML PEN SQ ONE (21:00)
[2021-07-16] MEDS: FLUTICASONE PROPIONATE NA SPR 16 GM BTL NAE SCH (21:12)
[2021-07-16] MEDS: ATORVASTATIN 40 MG TAB PO SCH (21:12)
[2021-07-16] MEDS: MELATONIN 3 MG TAB PO SCH (21:13)
[2021-07-16] MEDS: OMEGA-3 (PURIFIED FISH OIL) 1 GM CAP PO SCH (21:13)
[2021-07-16] MEDS: METOPROLOL SUCC 50MG EXT REL TAB PO SCH (21:14)
[2021-07-16] MEDS: SENNA 8.6 MG TAB PO SCH (21:14)
[2021-07-16] MEDS: DOCUSATE SODIUM 100 MG CAP PO SCH (21:15)
[2021-07-16] MEDS: GABAPENTIN 600 MG TAB PO SCH (21:15)
[2021-07-16] MEDS: PANTOprazole 40 MG TAB PO SCH (21:15)
[2021-07-16] MEDS: MAGNESIUM OXIDE 400 MG TAB PO SCH (21:15)
[2021-07-16] MEDS: CHOLECALCIFEROL 1,000 UNITS 25 MCG TAB PO SCH (21:16)
[2021-07-16] MEDS: CYANOCOBALAMIN 500 MCG TABLET (VITAMIN B-12) PO SCH (21:16)
[2021-07-16] MEDS: ASPIRIN 81 MG ECTAB PO SCH (21:17)
[2021-07-16] MEDS: DOXAZosin MESYLATE 4 MG TAB PO SCH (21:17)
[2021-07-16] MEDS: INSULIN ASPART 100 UNITS/ML 3 ML PEN SC SCH (21:26)
[2021-07-17] MEDS: ceFAZolin 2000MG 2,000 MG/15 ML SYR IV SCH ×2 (00:30→09:16)
[2021-07-17] MEDS: INSULIN ASPART 100 UNITS/ML 3 ML PEN SC SCH ×6 (00:31→21:02)
[2021-07-17] MEDS: SODIUM CHLORIDE 0.9% 1000ML 1,000 ML IV SCH (05:28)
[2021-07-17 06:05] LABS: Hematocrit (blood only) 33.5 % (42-52); Hemoglobin 11.1 g/dL (14.0-18.0); Mean Corpuscular Hemoglobin 31.4 pg (25-34); Mean Corpuscular Hgb Conc 33.1 g/dL (32-36); Mean Corpuscular Volume 94.9 fL (80-100); Mean Platelet Volume 9.8 fL (7.4-10.4); Platelet Count 209 K/uL (130-400); RDW Standard Deviation 48.3 fL (36.4-46.3); Red Blood Count 3.53 M/uL (4.7-6.1); White Blood Count 9.71 K/uL (4.8-10.8)
[2021-07-17 06:35] LABS: BUN Creatinine Ratio 18.5 (10-20); Calcium 8.2 mg/dl (8.5-10.1); Creatinine Clr Calc Pharmacy 45.3 ml/min; Est GFR (African American) 35.9 ml/min; Potassium 3.2 mmol/L (3.5-5.1)
[2021-07-17] MEDS: GABAPENTIN 600 MG TAB PO SCH ×3 (08:56→20:55)
[2021-07-17] MEDS: FLUTICASONE PROPIONATE NA SPR 16 GM BTL NAE SCH ×2 (08:56→20:56)
[2021-07-17] MEDS: ASPIRIN 81 MG ECTAB PO SCH ×2 (08:57→20:53)
[2021-07-17] MEDS: FERROUS SULFATE 325 MG TAB PO SCH (08:57)
[2021-07-17] MEDS: DOCUSATE SODIUM 100 MG CAP PO SCH ×2 (08:57→20:54)
[2021-07-17] MEDS: MULTIVITAMIN TAB PO SCH (08:58)
[2021-07-17] MEDS: BUMETANIDE 1 MG TAB PO SCH ×2 (10:25→17:18)
--- NOTE | 2021-07-17 10:52 | Orthopedic Progress Note ---
Date of Service July 17, 2021 Assessment & Plan (1) Rupture of right Achilles tendon: Plan: Right Achilles tendon repair with Arthrex SpeedBridge anchors. 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 Resection of avulsion fracture, posterior calcaneus POD#1 PT/OT- NWB B/L LE, DVT prophylaxis- ASA 81 mg BID Plan for discharge at this time : awaiting for SNF approval. Admission and Anticipated Discharge Date Admission Date: July 16, 2021 Subjective POD#1 Patient sitting at side of bed eating breakfast. Denies CP, SOB, calf pain, dizziness. Physical Exam Physical Exam: Toes mobile, NVI. Splint/ Dressing in place. Results & Data ([facility]) Vital Signs (Past 12 Hours) Vital Signs Temp Pulse Pulse Resp BP Pulse Ox 07/17/21 10:24 122/75 07/17/21 07:53 37.0 C 59 L 18 110/50 L 95 07/17/21 04:02 37.5 C 65 18 131/67 95
--- NOTE | 2021-07-17 12:51 | Hospitalist Consultation ---
Date of Consultation July 17, 2021 Assessment & Plan (1) Rupture of right Achilles tendon: -S/p tendon repairPOD #1 -Recommend postoperative pain management, PT/OT, incentive spirometry, continued perioperative antibiotic prophylaxis, and DVT prophylaxisdrug, dose, duration are at the discretion of primary team -Patient resides with a but does have weightbearing restrictions on the lower extremity. Disposition will be guided and based upon his ability to follow through with weightbearing restrictions and independently perform ADLs. Appreciate recommendations from therapy (2) Hypokalemia: -We will replace. -Follow-up labs in a.m. -Likely due to diuretic therapy - (3) Hypertension: -Agree with resumption of Cardura and metoprolol as prior to hospitalization. BP currently 120/71 (4) HLD (hyperlipidemia): -Agree with resumption of Lipitor and fish oil (5) WHIT (obstructive sleep apnea): -Continue CPAP as prior to hospitalization (6) Diastolic CHF: -Currently, clinically compensated. -Bumex has been resumed (7) Chronic kidney disease: -Patient did receive Decadron preoperatively but his renal function has remained stable and at baseline -Would avoid nephrotoxic agents such as NSAIDs -Renally adjust medications where appropriate -Follow-up labs in a.m. to trend (8) Diabetes: -Despite Decadron given yesterday, his blood sugar this morning was acceptable at 124 -Pharmacy consulted by Ortho for glycemic management. Will let this at their discretion -We will follow along and see patient tomorrow. History of Present Illness Reason for Consultation: Medical Mgmt Attending Physician: Iván Bernardo DO History of Present Illness Mr. Swartz is a 56 y/o y/o WM with underlying past medical history of diastolic dysfunction/CHFfollows Radha Artis PA-C in the heart failure clinic, CKD, HTN, HLD, WHIT requiring CPAP, and IDDM. Medicine was consulted to provide medical management. He is POD #1 right Achilles tendon repair with resection of the Bahman's deformity, excision of avulsion fracture of the calcaneus. He had a relatively uneventful perioperative course. He did receive Decadron preoperatively. His renal function today has remained stable (2.29: baseline appears to be 2.3-3.6). His blood sugar was adequately controlled this morning at 124. Pharmacy was consulted for glycemic management. Patient does have a nonweightbearing restriction. He lives with his in a one-story home with no steps leading into the home. Currently, his pain is adequately controlled. Denies fevers, chills, chest pain, shortness of breath, abdominal pain, nausea or vomiting. He has not yet had a BM but does report flatus. Allergies Allergy/AdvReac Type Severity Reaction Status Date / Time amitriptyline AdvReac Mild Muscle Verified 07/16/21 12:53 twitching hydralazine AdvReac Mild Rash Verified 07/16/21 12:53 Calcium Channel Blockers Allergy Rash, Uncoded 07/16/21 12:53 swelling Home Medications Medication Instructions Recorded Confirmed Type atorvastatin 80 mg tablet 80 mg PO QPM 08/02/18 07/15/21 History magnesium oxide 400 mg PO HS 08/02/18 07/16/21 History metoprolol succinate 50 mg 150 mg PO QPM 08/02/18 07/16/21 History tablet,extended release 24 hr omega 0-mca-bkd-fish oil 1,000 mg 1 cap PO QPM 02/20/19 07/16/21 History (120 mg-180 mg) capsule (Fish Oil) omeprazole 20 mg capsule,delayed 20 mg PO QPM #0 cap 08/14/19 07/16/21 Rx release cholecalciferol (vitamin D3) 25 2,000 units PO QPM tab 11/19/19 07/16/21 History mcg (1,000 unit) chewable tablet (Vitamin D3) cyanocobalamin (vitamin B-12) 1,000 mcg PO HS tab 11/19/19 07/16/21 History 1,000 mcg tablet (Vitamin B-12) gabapentin 600 mg tablet 600 mg PO TID 12/06/19 07/16/21 History polyethylene glycol 3350 17 17 gm PO BID PRN #510 gm 12/23/19 07/16/21 Rx gram/dose oral powder aspirin 81 mg tablet,delayed 81 mg PO BID tab 01/16/20 07/15/21 History release tramadol 50 mg tablet 50 mg PO Q6H PRN 02/21/20 07/16/21 History fluticasone propionate 50 1 spray INTRANASAL BID 05/05/20 07/16/21 History mcg/actuation nasal spray,suspension (Flonase Allergy Relief) insulin regular hum U-500 conc 500 50 unit SUBCUT TIDM 09/18/20 07/16/21 History unit/mL subcutaneous soln (Humulin R U-500 (Concentrated) Insulin) doxazosin 4 mg tablet 4 mg PO QPM 10/01/20 07/16/21 History insulin glargine 100 unit/mL (3 50 unit SUBCUT PM 10/16/20 07/16/21 History mL) subcutaneous pen (Lantus Solostar U-100 Insulin) ferrous sulfate 325 mg (65 mg 325 mg PO QAM 02/03/21 07/16/21 History iron) tablet acetaminophen 500 mg tablet 1,000 mg PO Q6H PRN 02/12/21 07/16/21 History (Acetaminophen Extra Strength) bumetanide 2 mg tablet 3 mg PO BID tab 05/17/21 07/15/21 History melatonin 10 mg capsule 10 mg PO HS 05/17/21 07/16/21 History Patient History Medical History (Updated 07/17/21 @ 13:08 by Radha Morrison PA-C) Chronic back pain Chronic diastolic congestive heart failure Chronic kidney disease Plan for possible dialysis in the future (under surveillance), will be placing fistula in near future preventatively Depression Diabetes IDDM Diastolic CHF Dyslipidemia GERD (gastroesophageal reflux disease) Hypertension Migraine Morbid obesity Osteoarthritis Sleep apnea CPAP Temporomandibular joint disorder Occasional clicking, no locking Tobacco use Type 2 diabetes mellitus Surgical History History of incision and drainage Left foot multiple with skin graft (total of 5) Left foot I&D (10/08/20): LMA#5 at [facility] Left foot I&D, Stimulan beads (02/12/21): MAC at [facility] History of open reduction and internal fixation (ORIF) procedure Left ankle Bimalleolar Fracture (11/2019) History of placement of ear tubes Right ear History of tonsillectomy and adenoidectomy Hx of cataract surgery R/L Hx of colonoscopy [place] teeth extracted Family History Father Diabetes Mother Diabetes Other Coronary heart disease Hypertension No family history of adverse response to anesthesia Denies family history of Crohn's disease Kidney disease Colorectal cancer Ulcerative colitis Social History Smoking Status: Former smoker Tobacco Type: Cigarettes Smoking End Date: Quit several years ago; Second Hand Exposure: Yes; Do You Dip or Chew Tobacco: No; Tobacco Cessation Education Requested by Patient: No Hx Alcohol Use: Yes Alcohol type: beer Hx Substance Use: No Preferred Language: Malawian Communication Ability: Effective Breakfast Hostess Required: No Beliefs That Will Affect Care: None marital status: Current Living Situation: Spouse Current Living Situation Comment: Four children, grown & in good health current occupational status: employed 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 Physical Exam Constitutional: General: Resting comfortably in his bedside chair. NAD. HEENT: Head is atraumatic, normocephalic. Buccal mucosa is moist and pink Neck: No JVD. Negative hepatojugular reflex Cardiac: RRR but distant Lungs: Diminished breath sounds without wheezes, rales or rhonchi Abdomen: Normoactive X4. Soft and nontender in all quadrants. Extremities: No peripheral clubbing cyanosis or edema Neuro: A&O X4 cranial nerves II through XII are grossly intact no focal neuro deficits Skin: Right lower extremity with postsurgical splint. Capillary refill to bilateral toes intact and symmetrical. Feeling intact. Results & Data Results & Data ([facility]) Vital Signs (Past 12 Hours) Vital Signs Temp Pulse Pulse Resp BP Pulse Ox 07/17/21 11:34 36.9 C 54 L 18 120/71 96 07/17/21 10:24 122/75 07/17/21 07:53 37.0 C 59 L 18 110/50 L 95 07/17/21 04:02 37.5 C 65 18 131/67 95 Laboratory Results 07/17/21 05:50 07/17/21 05:50 PG Care Time/CCT Total # of Minutes Spent Total Time Spent with Patient: Total time spent is greater than 50% in coordination of care (as documented) at patient's floor/unit and/or counseling patient: [place] [address] Inpt Consult Level 4 Patient Type New Diagnoses Rupture of right Achilles tendon S86.011A Hypokalemia E87.6 Hypertension I10 HLD (hyperlipidemia) E78.5 WHIT (obstructive sleep apnea) G47.33 Diastolic CHF I50.33 Heart failure chronicity: acute on chronic Chronic kidney disease N18.9 Diabetes E11.621; L97.509; Z79.4 Diabetes mellitus complication detail: with foot ulcer Diabetes mellitus complication status: with skin complications Diabetes mellitus care home insulin use: with care home use Diabetes mellitus type: type 2 (1) Diastolic CHF Heart failure chronicity: acute on chronic Qualified Code(s): I50.33 - Acute on chronic diastolic (congestive) heart failure (2) Diabetes Diabetes mellitus complication detail: with foot ulcer Diabetes mellitus complication status: with skin complications Diabetes mellitus care home insulin use: with 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
--- NOTE | 2021-07-17 13:39 | Pharmacy Report ---
Pharmacy Glycemic Short Note 2 - Date of Service July 17, 2021 - Glycemic Short BSG Results (Last 24 hours): 07/16/21 07/16/21 07/17/21 18:13 19:50 00:12 Glucose POC Glucose 197 H 281 H 327 H* 07/17/21 07/17/21 07/17/21 00:13 04:03 05:50 Glucose 124 H POC Glucose 336 H* 181 H 07/17/21 07/17/21 08:04 12:07 Glucose POC Glucose 106 H 135 H OUTPATIENT ANTIDIABETIC REGIMEN: * Lantus 50 units HS * U-500 insulin 50 units TIDM ASSESSMENT: * Mr Swartz is a 56 y/o M with a PMH of T2DM who presents for R ankle achilles rupture. * He received dexamethasone 4 mg IV in the operative room. * BSGs yesterday were 161-197 (pharmacy consulted)- 281 and overnight were 327- 181. Fasting today was 106 mg/dL. * Patient received 168 units of insulin (80 units of basal and 88 units of Novolog) with just HS and midnight dosing. Received additional 6 units at 0400. * Scale for Lantus with doses of 80-100 units/day based upon previous stay data. * For Novolog, will tighten CR. A CR of 2 was used during previous hospitalizations without steroids. Foresee patient requiring more prandial coverage as this is what steroids typically influence. PLAN FOR INPATIENT GLYCEMIC CONTROL: * Basal insulin * Lantus 80 units SQ HS (90 units if BSG > 140 and 100 units if BSG > 180) * Bolus insulin * NovoLog per scale ACHS or Q6hrs while NPO * Goal Range: Low 110 mg/dL - High 140 mg/dL * Correction Factor: 8 mg/dL/unit * Nutritional / Prandial insulin per carb ratio of 1 unit per 1.5 grams CHO consumed PLAN FOR DISCHARGE: * TBD
[2021-07-17] MEDS: POTASSIUM CHLORIDE CRTAB 20 MEQ TABCR PO SCH ×2 (14:22→18:24)
[2021-07-17] MEDS: METOPROLOL SUCC 50MG EXT REL TAB PO SCH (20:53)
[2021-07-17] MEDS: SENNA 8.6 MG TAB PO SCH (20:54)
[2021-07-17] MEDS: PANTOprazole 40 MG TAB PO SCH (20:54)
[2021-07-17] MEDS: CYANOCOBALAMIN 500 MCG TABLET (VITAMIN B-12) PO SCH (20:55)
[2021-07-17] MEDS: MELATONIN 3 MG TAB PO SCH (20:55)
[2021-07-17] MEDS: ATORVASTATIN 40 MG TAB PO SCH (20:55)
[2021-07-17] MEDS: CHOLECALCIFEROL 1,000 UNITS 25 MCG TAB PO SCH (20:56)
[2021-07-17] MEDS: OMEGA-3 (PURIFIED FISH OIL) 1 GM CAP PO SCH (20:56)
[2021-07-17] MEDS: MAGNESIUM OXIDE 400 MG TAB PO SCH (20:57)
[2021-07-17] MEDS: DOXAZosin MESYLATE 4 MG TAB PO SCH (20:57)
[2021-07-17] MEDS ORDERED: INSULIN GLARGINE SOLOSTAR 100 UNITS/ML 3 ML PEN SC SCH (21:00)
[2021-07-18 05:26] LABS: Basophils # (auto) 0.03 K/uL (0-0.2); Basophils % (auto) 0.4 %; Eosinophils # (auto) 0.25 K/uL (0-0.5); Eosinophils % (auto) 3.1 %; Hematocrit (blood only) 33.5 % (42-52); Hemoglobin 10.8 g/dL (14.0-18.0); Immature Granulocytes # (auto) 0.02 K/uL (0.00-0.02); Immature Granulocytes % (auto) 0.2 %; Lymphocytes % (auto) 25.9 %; Mean Corpuscular Hemoglobin 30.6 pg (25-34); Mean Corpuscular Hgb Conc 32.2 g/dL (32-36); Mean Corpuscular Volume 94.9 fL (80-100); Monocytes # (auto) 0.87 K/uL (0.11-0.59); Monocytes % (auto) 10.7 %; Neutrophils # (auto) 4.85 K/uL (1.4-6.5); Neutrophils % (auto) 59.7 %; Platelet Count 201 K/uL (130-400); Red Blood Count 3.53 M/uL (4.7-6.1); White Blood Count 8.12 K/uL (4.8-10.8)
[2021-07-18] MEDS: ACETAMINOPHEN 500 MG TAB PO PRN (05:36)
[2021-07-18 05:53] LABS: BUN Creatinine Ratio 16.4 (10-20); Calcium 8.4 mg/dl (8.5-10.1); Creatinine Clr Calc Pharmacy 48.1 ml/min; Est GFR (African American) 38.5 ml/min; Est GFR (Non-African American) 33.2 ml/min; Magnesium 2.6 mg/dl (1.8-2.4); Potassium 3.8 mmol/L (3.5-5.1)
[2021-07-18] MEDS: FERROUS SULFATE 325 MG TAB PO SCH (08:29)
[2021-07-18] MEDS: FLUTICASONE PROPIONATE NA SPR 16 GM BTL NAE SCH ×2 (08:30→21:15)
[2021-07-18] MEDS: DOCUSATE SODIUM 100 MG CAP PO SCH ×2 (08:30→21:14)
[2021-07-18] MEDS: GABAPENTIN 600 MG TAB PO SCH ×3 (08:30→21:14)
[2021-07-18] MEDS: MULTIVITAMIN TAB PO SCH (08:31)
[2021-07-18] MEDS: ASPIRIN 81 MG ECTAB PO SCH ×2 (08:31→21:14)
[2021-07-18] MEDS: BUMETANIDE 1 MG TAB PO SCH ×2 (08:31→17:56)
[2021-07-18] MEDS: INSULIN ASPART 100 UNITS/ML 3 ML PEN SC SCH ×4 (08:33→21:12)
--- NOTE | 2021-07-18 09:17 | Pharmacy Report ---
Pharmacy Glycemic Short Note 2 - Date of Service July 18, 2021 - Glycemic Short BSG Results (Last 24 hours): 07/17/21 07/17/21 07/17/21 12:07 17:04 20:34 Glucose POC Glucose 135 H 96 132 H 07/18/21 07/18/21 05:06 08:10 Glucose 121 H POC Glucose 216 H OUTPATIENT ANTIDIABETIC REGIMEN: * Lantus 50 units HS * U-500 insulin 50 units TIDM ASSESSMENT: * BSGs yesterday were 734-966-32-132 mg/dL. Patient received 207 units of insulin (80 units of basal and 127 units of bolus). * Fasting in PRP was 121 mg/dL BUT POC was 216 mg/dL. * Will increase Lantus by 10% as patient does have some wiggle room. Previous hospitalization used 100 units of Lantus daily. * CR loosened last night. Agree and continue. Background * Mr Swartz is a 56 y/o M with a PMH of T2DM who presents for R ankle achilles rupture. * He received dexamethasone 4 mg IV in the operative room. * BSGs yesterday were 161-197 (pharmacy consulted)- 281 and overnight were 327- 181. Fasting today was 106 mg/dL. * Patient received 168 units of insulin (80 units of basal and 88 units of Novolog) with just HS and midnight dosing. Received additional 6 units at 0400. * Scale for Lantus with doses of 80-100 units/day based upon previous stay data. * For Novolog, will tighten CR. A CR of 2 was used during previous hospitalizations without steroids. Foresee patient requiring more prandial coverage as this is what steroids typically influence. PLAN FOR INPATIENT GLYCEMIC CONTROL: * Basal insulin * Lantus 90 units SQ HS * Bolus insulin * NovoLog per scale ACHS or Q6hrs while NPO * Goal Range: Low 110 mg/dL - High 140 mg/dL * Correction Factor: 8 mg/dL/unit * Nutritional / Prandial insulin per carb ratio of 1 unit per 2.5 grams CHO consumed PLAN FOR DISCHARGE: * TBD
--- NOTE | 2021-07-18 09:29 | Orthopedic Progress Note ---
Date of Service July 18, 2021 Assessment & Plan (1) Rupture of right Achilles tendon: Plan: Right Achilles tendon repair with Arthrex SpeedBridge anchors. 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 Resection of avulsion fracture, posterior calcaneus POD#2 PT/OT- NWB B/L LE, he may use left toes to balance and transfer DVT prophylaxis- ASA 81 mg BID Plan for discharge at this time : awaiting for SNF approval most likely monday as insurances are closed. Admission and Anticipated Discharge Date Admission Date: July 16, 2021 Subjective POD#2 Patient sitting at side of bed. Denies CP, SOB, calf pain, dizziness. Physical Exam Physical Exam: Toes mobile, NVI. Splint/ Dressing in place. Results & Data ([facility]) Vital Signs (Past 12 Hours) Vital Signs Temp Pulse Resp BP Pulse Ox 07/18/21 07:44 141/82 H 07/18/21 07:19 37.5 C 71 22 96/58 L 91 07/17/21 22:02 36.7 C 57 L 18 132/62 97
--- NOTE | 2021-07-18 10:36 | Hospitalist Progress Note ---
Date of Service July 18, 2021 Assessment & Plan (1) Rupture of right Achilles tendon: Plan: S/p right tendon repair on 07/[address] Bernardo. - Recommend postoperative pain management, PT/OT, incentive spirometry, continued perioperative antibiotic prophylaxis, and DVT prophylaxisdrug, dose, duration are at the discretion of primary team - Patient resides with a but does have weightbearing restrictions on the lower extremity. - Expected acute blood loss anemia after surgery. Will give 1 round of IV iron. -> Disposition to SNF due to weight-bearing limitations. (2) Hypokalemia: Plan: - Replaced. - Now stable. (3) Hypertension: Plan: - Agree with resumption of Cardura and metoprolol as prior to hospitalization. BP currently 140/80. (4) HLD (hyperlipidemia): Plan: - Agree with resumption of Lipitor and fish oil. (5) WHIT (obstructive sleep apnea): Plan: - Continue CPAP as prior to hospitalization (6) Diastolic CHF: Plan: -Currently, clinically compensated. -Bumex has been resumed (7) Chronic kidney disease: Plan: -Patient did receive Decadron preoperatively but his renal function has remained stable and at baseline. - Would avoid nephrotoxic agents such as NSAIDs - Renally adjust medications where appropriate (8) Diabetes: Plan: -Despite Decadron given yesterday, his blood sugar this morning was acceptable at 124 -Pharmacy consulted by Ortho for glycemic management. Will let this at their discretion. Given medical stability, Hospital Medicine team will sign off. Please re-consult with any questions or concerns. Thank you for letting us assist in the care of this patient! Admission and Anticipated Discharge Date Admission Date: July 16, 2021 Subjective Doing well today. Reports no fevers/chills, chest pain, shortness of breath, abdominal pain, nausea, or vomiting. Physical Exam Constitutional: WD/WN, vitals as above Eyes: EOM intact bilaterally; no conjunctival abnormality ENMT: external ear and nose normal, oropharynx normal Neck: trachea midline, no thyromegaly normal visual inspection Respiratory: normal respiratory effort, lungs clear to auscultation no respiratory distress Cardiovascular: RRR, no murmur, no edema Gastrointestinal (Abdomen): Inspection/Auscultation: abdomen normal to inspection; abdomen not distended Musculoskeletal: no cyanosis or clubbing, extremities motor strength 5/5 Extremities: extremities normal to inspection (Both legs bandaged) Skin: no rashes, warm and dry Neurologic: moves all extremities and awake Psychiatric: Orientation: alert, oriented to person and cooperative Results & Data Results & Data ([facility]) Vital Signs (Past 12 Hours) Vital Signs Temp Pulse Resp BP Pulse Ox 07/18/21 07:44 141/82 H 07/18/21 07:19 37.5 C 71 22 96/58 L 91 PG Care Time/CCT Total # of Minutes Spent Total Time Spent with Patient: Total time spent is greater than 50% in coordination of care (as documented) at patient's floor/unit and/or counseling patient: Coding Level of Care Code 81760 Subseq Hosp Care Lvl 3 Diagnoses Rupture of right Achilles tendon S86.011A Hypokalemia E87.6 Hypertension I10 HLD (hyperlipidemia) E78.5 WHIT (obstructive sleep apnea) G47.33 Diastolic CHF I50.33 Heart failure chronicity: acute on chronic Chronic kidney disease N18.9 Diabetes E11.621; L97.509; Z79.4 Diabetes mellitus type: type 2 Diabetes mellitus fpc insulin use: with fpc use Diabetes mellitus complication status: with skin complications Diabetes mellitus complication detail: with foot ulcer (1) Diastolic CHF Heart failure chronicity: acute on chronic Qualified Code(s): I50.33 - Acute on chronic diastolic (congestive) heart failure (2) Diabetes Diabetes mellitus type: type 2 Diabetes mellitus fpc insulin use: 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
[2021-07-18] MEDS ORDERED: IRON SUCROSE 400 MG in SODIUM CHLORIDE 0.9% 250 ML IV SCH (11:00)
[2021-07-18] MEDS ORDERED: INSULIN GLARGINE SOLOSTAR 100 UNITS/ML 3 ML PEN SC ONE (12:45)
[2021-07-18] MEDS ORDERED: INSULIN GLARGINE SOLOSTAR 100 UNITS/ML 3 ML PEN SC SCH ×2 (21:00)
[2021-07-18] MEDS: INSULIN GLARGINE SOLOSTAR 100 UNITS/ML 3 ML PEN SC SCH (21:12)
[2021-07-18] MEDS: OMEGA-3 (PURIFIED FISH OIL) 1 GM CAP PO SCH (21:14)
[2021-07-18] MEDS: CHOLECALCIFEROL 1,000 UNITS 25 MCG TAB PO SCH (21:14)
[2021-07-18] MEDS: MELATONIN 3 MG TAB PO SCH (21:14)
[2021-07-18] MEDS: CYANOCOBALAMIN 500 MCG TABLET (VITAMIN B-12) PO SCH (21:14)
[2021-07-18] MEDS: DOXAZosin MESYLATE 4 MG TAB PO SCH (21:14)
[2021-07-18] MEDS: SENNA 8.6 MG TAB PO SCH (21:14)
[2021-07-18] MEDS: ATORVASTATIN 40 MG TAB PO SCH (21:14)
[2021-07-18] MEDS: MAGNESIUM OXIDE 400 MG TAB PO SCH (21:15)
[2021-07-18] MEDS: METOPROLOL SUCC 50MG EXT REL TAB PO SCH (21:15)
[2021-07-18] MEDS: PANTOprazole 40 MG TAB PO SCH (21:15)
[2021-07-19] MEDS: INSULIN ASPART 100 UNITS/ML 3 ML PEN SC SCH ×4 (08:54→20:46)
[2021-07-19] MEDS: INSULIN GLARGINE SOLOSTAR 100 UNITS/ML 3 ML PEN SC SCH ×2 (08:55→20:44)
[2021-07-19] MEDS: FLUTICASONE PROPIONATE NA SPR 16 GM BTL NAE SCH ×2 (08:58→21:20)
[2021-07-19] MEDS: BUMETANIDE 1 MG TAB PO SCH ×2 (08:59→17:45)
[2021-07-19] MEDS: ASPIRIN 81 MG ECTAB PO SCH ×2 (08:59→21:26)
[2021-07-19] MEDS: DOCUSATE SODIUM 100 MG CAP PO SCH ×2 (09:00→21:26)
[2021-07-19] MEDS: FERROUS SULFATE 325 MG TAB PO SCH (09:00)
[2021-07-19] MEDS: GABAPENTIN 600 MG TAB PO SCH ×3 (09:00→21:24)
[2021-07-19] MEDS: MULTIVITAMIN TAB PO SCH (09:00)
--- NOTE | 2021-07-19 09:52 | Orthopedic Progress Note ---
Date of Service July 19, 2021 Assessment & Plan (1) Rupture of right Achilles tendon: Plan: Right Achilles tendon repair with Arthrex SpeedBridge anchors. 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 Resection of avulsion fracture, posterior calcaneus POD#3 PT/OT- NWB B/L LE, he may use left toes to balance and transfer DVT prophylaxis- ASA 81 mg BID Plan for discharge at this time : awaiting for SNF approval most likely monday as insurances are closed. Admission and Anticipated Discharge Date Admission Date: July 18, 2021 Supervising Physician Co-Signing Physician Notes Postoperative day #3 status post right Achilles tendon repair. Also with left heel ulcer. Nonweightbearing on bilateral lower extremities, but may use left toes for transfer. Patient notes significant neuropathy with decreased sensation, but dressings and splint are clean, dry, and intact with good mobility of his toes. Currently awaiting [facility] to [facility], hopefully tomorrow when transfer can be arranged after the holiday. Subjective patient sitting in chair resting. Denies chest pain, SOB, dizziness, lightheadedness. Physical Exam Physical Exam: Toes mobile, NVI. Splint/ Dressing in place. Results & Data ([facility]) Vital Signs (Past 12 Hours) Vital Signs Temp Pulse Resp BP Pulse Ox 07/19/21 07:57 37.1 C 60 18 126/74 94 07/18/21 21:55 37.0 C 84 18 160/74 H 93
[2021-07-19] MEDS: DOXAZosin MESYLATE 4 MG TAB PO SCH (21:20)
[2021-07-19] MEDS: CYANOCOBALAMIN 500 MCG TABLET (VITAMIN B-12) PO SCH (21:21)
[2021-07-19] MEDS: METOPROLOL SUCC 50MG EXT REL TAB PO SCH (21:21)
[2021-07-19] MEDS: MAGNESIUM OXIDE 400 MG TAB PO SCH (21:24)
[2021-07-19] MEDS: MELATONIN 3 MG TAB PO SCH (21:25)
[2021-07-19] MEDS: CHOLECALCIFEROL 1,000 UNITS 25 MCG TAB PO SCH (21:25)
[2021-07-19] MEDS: ATORVASTATIN 40 MG TAB PO SCH (21:25)
[2021-07-19] MEDS: PANTOprazole 40 MG TAB PO SCH (21:26)
[2021-07-19] MEDS: OMEGA-3 (PURIFIED FISH OIL) 1 GM CAP PO SCH (21:26)
[2021-07-19] MEDS: SENNA 8.6 MG TAB PO SCH (21:27)
[2021-07-20] MEDS: ACETAMINOPHEN 500 MG TAB PO PRN (04:20)
[2021-07-20] MEDS: oxyCODONE HCL IR 5 MG TAB (IMMEDIATE RELEASE) PO PRN ×2 (08:26→22:57)
[2021-07-20] MEDS: ASPIRIN 81 MG ECTAB PO SCH ×2 (08:26→21:15)
[2021-07-20] MEDS: DOCUSATE SODIUM 100 MG CAP PO SCH ×2 (08:27→21:16)
[2021-07-20] MEDS: MULTIVITAMIN TAB PO SCH (08:27)
[2021-07-20] MEDS: GABAPENTIN 600 MG TAB PO SCH ×3 (08:27→21:16)
[2021-07-20] MEDS: FERROUS SULFATE 325 MG TAB PO SCH (08:27)
[2021-07-20] MEDS: BUMETANIDE 1 MG TAB PO SCH ×2 (08:28→17:01)
[2021-07-20] MEDS: FLUTICASONE PROPIONATE NA SPR 16 GM BTL NAE SCH ×2 (08:28→21:16)
[2021-07-20] MEDS: INSULIN GLARGINE SOLOSTAR 100 UNITS/ML 3 ML PEN SC SCH ×2 (08:29→21:17)
[2021-07-20] MEDS: INSULIN ASPART 100 UNITS/ML 3 ML PEN SC SCH ×4 (08:30→21:17)
--- NOTE | 2021-07-20 09:05 | Orthopedic Progress Note ---
Date of Service July 20, 2021 Assessment & Plan (1) Rupture of right Achilles tendon: Plan: Right Achilles tendon repair with Arthrex SpeedBridge anchors. 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 Resection of avulsion fracture, posterior calcaneus POD#4 PT/OT- NWB B/L LE, he may use left toes to balance and transfer DVT prophylaxis- ASA 81 mg BID Plan for discharge at this time : awaiting for SNF approval Admission and Anticipated Discharge Date Admission Date: July 18, 2021 Subjective Postop day 4 Patient currently sitting up at the bedside finishing his breakfast. No complaints this morning. States that he is waiting to hear from case management about possible facilities he will be eligible to go to 4 rehabilitation. No new complaints this morning. Physical Exam Physical Exam: Splint is clean, dry, and intact. Toes are mobile. Neuropathy noted. Cap refill is less than 2 seconds. Results & Data ([facility]) Vital Signs (Past 12 Hours) Vital Signs Temp Pulse Resp BP Pulse Ox 07/20/21 07:08 37.1 C 64 18 155/65 H 98 07/19/21 23:33 37.0 C 65 18 132/73 94
[2021-07-20] MEDS: ATORVASTATIN 40 MG TAB PO SCH (21:15)
[2021-07-20] MEDS: CYANOCOBALAMIN 500 MCG TABLET (VITAMIN B-12) PO SCH (21:15)
[2021-07-20] MEDS: CHOLECALCIFEROL 1,000 UNITS 25 MCG TAB PO SCH (21:15)
[2021-07-20] MEDS: DOXAZosin MESYLATE 4 MG TAB PO SCH (21:16)
[2021-07-20] MEDS: OMEGA-3 (PURIFIED FISH OIL) 1 GM CAP PO SCH (21:16)
[2021-07-20] MEDS: METOPROLOL SUCC 50MG EXT REL TAB PO SCH (21:18)
[2021-07-20] MEDS: MELATONIN 3 MG TAB PO SCH (21:18)
[2021-07-20] MEDS: MAGNESIUM OXIDE 400 MG TAB PO SCH (21:18)
[2021-07-20] MEDS: PANTOprazole 40 MG TAB PO SCH (21:19)
[2021-07-20] MEDS: SENNA 8.6 MG TAB PO SCH (21:19)
[2021-07-21 08:07] VITALS: O2SAT 93
[2021-07-21] MEDS: FLUTICASONE PROPIONATE NA SPR 16 GM BTL NAE SCH (08:37)
[2021-07-21] MEDS: ASPIRIN 81 MG ECTAB PO SCH (08:38)
[2021-07-21] MEDS: BUMETANIDE 1 MG TAB PO SCH (08:38)
[2021-07-21] MEDS: DOCUSATE SODIUM 100 MG CAP PO SCH (08:38)
[2021-07-21] MEDS: GABAPENTIN 600 MG TAB PO SCH ×2 (08:38→14:38)
[2021-07-21] MEDS: FERROUS SULFATE 325 MG TAB PO SCH (08:39)
[2021-07-21] MEDS: MULTIVITAMIN TAB PO SCH (08:39)
[2021-07-21] MEDS: INSULIN GLARGINE SOLOSTAR 100 UNITS/ML 3 ML PEN SC SCH (08:40)
[2021-07-21] MEDS: INSULIN ASPART 100 UNITS/ML 3 ML PEN SC SCH ×2 (08:41→13:07)
[2021-07-21] MEDS ORDERED: COLLAGENASE OINT 30 GM TUBE EXT SCH (09:00)
--- NOTE | 2021-07-21 09:14 | Orthopedic Progress Note ---
Date of Service July 21, 2021 Assessment & Plan (1) Rupture of right Achilles tendon: Plan: Right Achilles tendon repair with Arthrex SpeedBridge anchors. 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 Resection of avulsion fracture, posterior calcaneus POD#5 Mild irritation to the skin above the right wrist where his IV site resided. Small amount of erythema noted. Plan for warm moist compresses and warm K pad for now. Continue to observe. Continue daily dressing changes with the use of Santyl on his left lower extremity ulcer. PT/OT- NWB B/L LE, he may use left toes to balance and transfer DVT prophylaxis- ASA 81 mg BID Plan for discharge at this time : Patient approved for [facility]. Currently waiting on authorization from insurance. Admission and Anticipated Discharge Date Admission Date: July 18, 2021 Subjective Postop day 5 Patient sitting at bedside finishing his breakfast. No complaints of the right lower extremity at this time. He does have a little bit of pain and redness at his previous IV site which apparently developed yesterday. He states he did take some pain medication for it and has helped and is about a 5/10 for pain. No other complaints at this time. Physical Exam Physical Exam: Right lower extremity splint is clean, dry, and intact. Toes are mobile. Cap refills less than 2 seconds. Neuropathy present. Left heel dressing changed by wound care yesterday. Results & Data ([facility]) Vital Signs (Past 12 Hours) Vital Signs Temp Pulse Pulse Resp BP Pulse Ox 07/21/21 07:00 37.3 C 61 20 146/82 H 93 07/20/21 22:44 37.6 C H 69 16 132/66 94 07/20/21 21:13 65 123/72
--- NOTE | 2021-07-21 12:56 | Pharmacy Report ---
Pharmacy Glycemic Short Note 2 - Date of Service July 21, 2021 - Glycemic Short BSG Results (Last 24 hours): 07/20/21 07/20/21 07/21/21 17:03 20:35 08:02 POC Glucose 129 H 130 H 187 H 07/21/21 12:15 POC Glucose 166 H OUTPATIENT ANTIDIABETIC REGIMEN: * Lantus 50 units HS * U-500 insulin 50 units TIDM * HbA1c: 9.2% (05/29/21) ASSESSMENT: 07/21 * POD #5, BSGs well-controlled - ranging 129-169 mg/dL yesterday * Received 221 units of insulin (110 units of basal and 111 units of bolus) * Fasting BSG of 187 mg/dL this morning - will slightly increase Lantus today * Likely discharge soon once approved for SNF Background * Mr Swartz is a 56 y/o M with a PMH of T2DM who presents for R ankle achilles rupture. * He received dexamethasone 4 mg IV in the operative room. * BSGs yesterday were 161-197 (pharmacy consulted)- 281 and overnight were 327- 181. Fasting today was 106 mg/dL. * Patient received 168 units of insulin (80 units of basal and 88 units of Novolog) with just HS and midnight dosing. Received additional 6 units at 0400. * Scale for Lantus with doses of 80-100 units/day based upon previous stay data. * For Novolog, will tighten CR. A CR of 2 was used during previous hospitalizations without steroids. Foresee patient requiring more prandial coverage as this is what steroids typically influence. PLAN FOR INPATIENT GLYCEMIC CONTROL: * Basal insulin * Lantus 35 units SC qAM * Lantus 80 units SQ HS * Bolus insulin * NovoLog per scale ACHS or Q6hrs while NPO * Goal Range: Low 110 mg/dL - High 140 mg/dL * Correction Factor: 10 mg/dL/unit * Nutritional / Prandial insulin per carb ratio of 1 unit per 1.5 grams CHO consumed PLAN FOR DISCHARGE: * HbA1c of 9.2% is above goal for patient * Reasonable goal for this patient would be less than 7% * Could consider increase in Lantus to 65 units SC HS * Patient should check BSGs four times daily ACHS and report out of range values to outpatient managing provider
[2021-07-21 15:17] VITALS: BP 158/79; PULSE 70; TEMP 99
--- NOTE | 2021-07-28 12:38 | Discharge Summary ---
Date of Service July 28, 2021 Admission HPI Per Admitting Provider This is a patient that has been being treated for a chronic left foot ulceration. He is making improvements with the ulcer. However, in a recent office visit, he complained of a giving out feeling of the right ankle and some difficulty with ambulating. He was set up for an MRI and noted a rupture of the achilles. He is being set up for surgical management. Principal Diagnosis Right Achilles tendon rupture Discharge Exam Constitutional well developed and well nourished; no acute distress ENMT external ear and nose normal, oropharynx normal Neck trachea midline Respiratory normal respiratory effort, lungs clear to auscultation Cardiovascular Rate/Rhythm: regular rate and regular rhythm Gastrointestinal (Abdomen) normal bowel sounds, soft, nontender, no hepatosplenomegaly Musculoskeletal Ankle: + surgical incision (Right ankle in a posterior/stirrup splint. C/D/I.); no deformity (right achilles deformity), no skin erythema and no ecchymosis Skin no rashes, warm and dry Neurologic normal touch/pain/proprioception Psychiatric Orientation: alert and oriented x 3 Speech: normal rate/rhythm/volume of speech Lymphatic no cervical or axillary lymphadenopathy Discharge Data Allergies Allergy/AdvReac Type Severity Reaction Status Date / Time amitriptyline AdvReac Mild Muscle Verified 07/28/21 08:44 twitching hydralazine AdvReac Mild Rash Verified 07/28/21 08:44 Calcium Channel Blockers Allergy Rash, Uncoded 07/28/21 08:44 swelling Consultations 07/16/21 19:42 Consult Hospitalist Routine Consult Wound Care Provider Routine Procedures Performed Operation Date: 07/16/21 15:30 Actual Procedures p Right Repair Achilles Tendon; (Right) - Iván Bernardo DO s resection of bahman's deformity; excision of avulsion fracture of calcaneous(Right) - Iván Bernardo DO Ordered Studies 07/16/21 05:00 US - OR guided needle placemen Routine 07/16/21 14:41 US - OR guided needle placemen Stat Hospital Course (1) Rupture of right Achilles tendon: Right Achilles tendon repair with [employer] anchors. 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 Resection of avulsion fracture, posterior calcaneus POD#5 Mild irritation to the skin above the right wrist where his IV site resided. Small amount of erythema noted. Plan for warm moist compresses and warm K pad for now. Continue to observe. Continue daily dressing changes with the use of Santyl on his left lower extremity ulcer. PT/OT- NWB B/L LE, he may use left toes to balance and transfer DVT prophylaxis- ASA 81 mg BID Plan for discharge at this time : Patient approved for [facility]. Currently waiting on authorization from insurance. Total Time Total Time Spent Total Time Spent (In Minutes): 90 Discharge Plan Discharge Items Patient Disposition: Transfer [facility] Fac Reason For Visit: Right Ankle Achilles Rupture Discharge Diagnosis: Right Achilles tendon rupture Activity: Per Instructions section Weightbearing: Left non-weightbearing and Right toe touch Non-emergency contact: Surgeon Call non-emergency contact if: your pain is not controlled, your temperature is above 101.5, your wound has increased redness and your wound has increased drainage Follow-up/Referrals: Iván Bernardo DO [Surgeon] - (Follow up in in 10-14 days from the day of surgery.) Marbella Gomez PA-C [Primary Care Provider] - Diet: Carb Count or DM1 Addtl Attending Provider Instructions: Warm moist compresses to right wrist IV site regularly. Daily dressing change to left foot ulcer. Use of Santyl on ulcer area. ACTIVITY RECOMMENDATIONS: * YOU CAN PUT YOUR TOES DOWN FOR BALANCE ON THE RIGHT FOOT FOR TRANSFERING. NON WEIGHTBEARING ON BILATERAL LOWER EXTREMITIES SPECIAL CARE INSTRUCTIONS: * Some drainage onto the dressing is normal and is no cause for alarm. * Some swelling is natural especially after walking. When resting, keep your foot elevated above the level of your heart. * Call the doctor's office at if you notice increased drainage, fever over 101 degrees F. or severe constant pain. BANDAGE: * Leave bandage/cast in place unless otherwise directed. * Keep bandage/cast dry at all times. FOLLOW UP VISIT: If appointment is not already scheduled: Please call [facility] to make a follow-up appointment 10-14 days from the day of your surgery at . Pending Studies at Discharge: No Stand-Alone Forms: My [facility] Skilled Items Patient informed of condition?: Yes DNR: No Discharge Level of Care: Skilled Communicable Disease: No Discharge Prognosis: Stable Lines: None Urinary Catheter: No Medications and DC Order Prescriptions: New aspirin 81 mg Tablet,Delayed Release (Dr/Ec) 81 mg PO BID 30 Days Qty: 60 RF: 0 acetaminophen 500 mg capsule 1,000 mg PO Q8H 14 Days Qty: 84 RF: 0 oxycodone 5 mg Tablet 5 mg PO Q4H MDD 6 PRN (Reason: pain) Qty: 18 RF: 0 Continued doxazosin 4 mg tablet 4 mg PO QPM RF: 0 melatonin 10 mg capsule 10 mg PO HS RF: 0 bumetanide 2 mg tablet 3 mg PO BID RF: 0 polyethylene glycol 3350 17 gram/dose powder 17 gm PO BID PRN (Reason: constipation) Qty: 510 RF: 5 magnesium oxide 400 mg Capsule 400 mg PO HS RF: 0 atorvastatin 80 mg Tablet 80 mg PO QPM RF: 0 metoprolol succinate 50 mg Tablet Extended Release 24 Hr 150 mg PO QPM RF: 0 omeprazole 20 mg Capsule,Delayed Release(Dr/Ec) 20 mg PO QPM Qty: 0 RF: 0 gabapentin 600 mg tablet 600 mg PO TID RF: 0 Humulin R U-500 (Conc) Insulin 500 unit/mL Solution 50 unit subcut TIDM RF: 0 Lantus Solostar U-100 Insulin 100 unit/mL (3 mL) Insulin Pen 50 unit SUBCUT PM RF: 0 omega 9-lgx-lcl-fish oil [Fish Oil] 1,000 mg (120 mg-180 mg) Capsule 1 cap PO QPM RF: 0 cholecalciferol (vitamin D3) [Vitamin D3] 25 mcg (1,000 unit) tablet,chewable 2,000 units PO QPM RF: 0 cyanocobalamin (vitamin B-12) [Vitamin B-12] 1,000 mcg tablet 1,000 mcg PO HS RF: 0 fluticasone propionate [Flonase Allergy Relief] 50 mcg/actuation Pound,Suspension 1 spray INTRANASAL BID RF: 0 ferrous sulfate 325 mg (65 mg iron) tablet 325 mg PO QAM RF: 0 Discontinued aspirin 81 mg tablet,delayed release (DR/EC) 81 mg PO BID RF: 0 tramadol 50 mg Tablet 50 mg PO Q6H PRN (Reason: Pain) RF: 0 acetaminophen [Acetaminophen Extra Strength] 500 mg Tablet 1,000 mg PO Q6H PRN (Reason: Headache) RF: 0 No Action magnesium hydroxide [Milk of Magnesia] 400 mg/5 mL Suspension 15 ml PO DAILY PRN (Reason: Constipation) RF: 0 bisacodyl [Dulcolax (bisacodyl)] 10 mg Suppository 10 mg [place] DAILY PRN (Reason: Constipation) RF: 0 insulin lispro [Humalog U-100 Insulin] 100 unit/mL Solution 6 - 18 sliding scale dose SUBCUT USEASDIRECTD RF: 0 Discharge Orders: Discharge Order (Routine); Ordered 07/21/21 Ordered By: Carlyle Riddle Admission Data Admit Date/Time: 07/16/21 16:41 Attending Provider: Iván Bernardo Admit Provider: Jaden Garcia Primary Care Provider: Marbella Gomez Other Providers: Tej Bliss ; Ken Esqueda ; Walter Jimenez ; Favian Au ; Luis Eduardo Watson ; Fernando Lopes ; Dona Gregory ; Cindy Adam ; Wing Loera ; Radha Aldana ; Trinidad Ram ; Sherman Rose ; Ty Chowdhury ; Steve Maddox ; Danii Rosas ; Glenn Ching ; Óscar Escobar ; Sal Stanley ; Tej White ; Macho Johnson ; Sarai Grijalva ; Naveen Fowler ; Radha Morrison ; Mehdi Claros ; Filippo Hernandez ; Everardo Richards ; Sheree Weber ; Sal Owens ; Lorin Mcmanus ; Torin Patel. ; [facility], ; [place] Other Interventions: Discharge Summary Assessment (RN) Last Done: 07/21/21 14:51
== END 2021-07-21 16:10 ==
LOC: 3E 12:19 → ASU 12:19

== ENCOUNTER 2021-08-12 16:21 | Inpatient (IN) ==
[2021-08-12 22:53] LABS: Basophils # (auto) 0.04 K/uL (0-0.2); Basophils % (auto) 0.5 %; Hemoglobin 10.1 g/dL (14.0-18.0); Immature Granulocytes # (auto) 0.03 K/uL (0.00-0.02); Immature Granulocytes % (auto) 0.4 %; Lymphocytes # (auto) 1.88 K/uL (1.2-3.4); Lymphocytes % (auto) 24.9 %; Mean Corpuscular Hemoglobin 29.9 pg (25-34); Mean Corpuscular Hgb Conc 32.6 g/dL (32-36); Mean Corpuscular Volume 91.7 fL (80-100); Mean Platelet Volume 9.8 fL (7.4-10.4); Monocytes # (auto) 0.72 K/uL (0.11-0.59); Monocytes % (auto) 9.5 %; Neutrophils # (auto) 4.58 K/uL (1.4-6.5); Neutrophils % (auto) 60.7 %; Platelet Count 240 K/uL (130-400); RDW Coefficient of Variation 13.5 % (11.5-14.5); RDW Standard Deviation 44.4 fL (36.4-46.3); Red Blood Count 3.38 M/uL (4.7-6.1); White Blood Count 7.55 K/uL (4.8-10.8)
[2021-08-12 23:03] LABS: Prothrombin Time 10.2 Seconds (9.0-12.0)
[2021-08-12 23:21] LABS: Albumin Globulin Ratio 0.7 (0.9-2); Albumin Level 3.2 gm/dl (3.4-5.0); BUN Creatinine Ratio 30.5 (10-20); Bilirubin,Total 0.6 mg/dl (0.2-1); Calcium 8.8 mg/dl (8.5-10.1); Creatinine Clr Calc Pharmacy 62.7 ml/min; Est GFR (African American) 49.7 ml/min; Est GFR (Non-African American) 42.9 ml/min; Globulin 4.6 gm/dl (2.5-4.0); Phosphorus 3.9 mg/dl (2.5-4.9); Total Protein 7.8 gm/dl (6.4-8.2)
[2021-08-12] MEDS ORDERED: HEPARIN SOD 5,000 UNIT/0.5 ML VIAL SQ STA (23:40)
--- NOTE | 2021-08-12 23:41 | History & Physical Report ---
Date of Service August 12, 2021 Assessment & Plan (1) Need for acute hemodialysis: Plan: Patient referred to the emergency department for admission due to need for acute hemodialysis. Reports a 50 pound weight gain over relatively short interval time He does have a fistula in the left arm which is not ready for use Dr. Holloway requested Dr. Leon place a tunneled catheter this morning, for the patient to undergo dialysis. Hold oral bumetanide, oral furosemide. Continue metolazone 5 mg p.o. twice daily Give a dose of furosemide 80 mg IV this evening. (2) Abnormal weight gain: Plan: See above (3) Stage 4 chronic kidney disease due to diabetes mellitus: Plan: See above Follow serial CBC with differential, chemistry profile and magnesium level (4) Cellulitis of left lower extremity: Plan: Placed on daptomycin IV and Zosyn IV. Follow clinical exam (5) Hypertension: Plan: See above (6) HLD (hyperlipidemia): Plan: Continue atorvastatin 80 mg in the evening (7) Poorly controlled diabetes mellitus: Plan: Continue Lantus insulin 50 units subcu at bedtime. Placed on Accu-Cheks before meals and at bedtime with NovoLog coverage per scale Check hemoglobin A1c (8) History of Achilles tendon repair: Plan: Balaji wrap to be changed as per outpatient. 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 Alvarez for planned tunneled catheter placement tomorrow morning with Dr. Leon for hemodialysis, due to 50 pound weight gain Primary Care Provider: [facility] The patient is a 56-year-old male with a past medical history including superficial venous thrombosis of arm, rupture of right Achilles tendon status post surgery on 07/16/2021, left heel ulcer, hypertension, hyperlipidemia, WHIT, obesity, proteinuria, stage IV CKD due to diabetes mellitus, elevated LFTs, chronic anemia, diabetic gastroparesis, right foot ulcer, osteomyelitis of left foot, morbid obesity, hypertension, dyslipidemia, diastolic CHF and diabetes mellitus. Patient presents to the emergency department as noted above. Allergies Allergy/AdvReac Type Severity Reaction Status Date / Time hydralazine Allergy Mild Rash Verified 08/12/21 20:28 Calcium Channel Blocking Allergy Rash, Verified 08/12/21 20:28 Agent Dilt swelling semaglutide [From Ozempic] Allergy Unknown Verified 08/12/21 20:28 amitriptyline AdvReac Mild Muscle Verified 08/12/21 20:28 twitching Home Medications Medication Instructions Recorded Confirmed Type atorvastatin 80 mg tablet 80 mg PO QPM 08/02/18 08/12/21 History magnesium oxide 400 mg PO HS 08/02/18 08/12/21 History metoprolol succinate 50 mg 150 mg PO QPM 08/02/18 08/12/21 History tablet,extended release 24 hr omega 4-eqq-bnk-fish oil 1,000 mg 1 cap PO QPM 02/20/19 08/12/21 History (120 mg-180 mg) capsule (Fish Oil) omeprazole 20 mg capsule,delayed 20 mg PO QPM #0 cap 08/14/19 08/12/21 Rx release cholecalciferol (vitamin D3) 25 2,000 units PO QPM tab 11/19/19 08/12/21 History mcg (1,000 unit) chewable tablet (Vitamin D3) gabapentin 600 mg tablet 600 mg PO TID 12/06/19 08/12/21 History polyethylene glycol 3350 17 17 gm PO BID PRN #510 gm 12/23/19 08/12/21 Rx gram/dose oral powder fluticasone propionate 50 1 spray INTRANASAL BID 05/05/20 08/12/21 History mcg/actuation nasal spray,suspension (Flonase Allergy Relief) insulin regular hum U-500 conc 500 50 unit SUBCUT TIDM 09/18/20 08/12/21 History unit/mL subcutaneous soln (Humulin R U-500 (Concentrated) Insulin) doxazosin 4 mg tablet 4 mg PO HS 10/01/20 08/12/21 History insulin glargine 100 unit/mL (3 50 unit SUBCUT HS 10/16/20 08/12/21 History mL) subcutaneous pen (Lantus Solostar U-100 Insulin) ferrous sulfate 325 mg (65 mg 325 mg PO QAM 02/03/21 08/12/21 History iron) tablet melatonin 10 mg capsule 10 mg PO HS 05/17/21 08/12/21 History aspirin 81 mg tablet,delayed 81 mg PO BID 30 Days #60 tab 07/20/21 08/12/21 Rx release oxycodone 5 mg tablet 5 mg PO Q4H PRN #18 tab MDD 6 07/20/21 08/12/21 Rx insulin lispro 100 unit/mL 8 - 18 sliding scale dose SUBCUT 07/28/21 08/12/21 History subcutaneous solution (Humalog USEASDIRECTD U-100 Insulin) magnesium hydroxide 400 mg/5 mL 15 ml PO DAILY PRN 07/28/21 08/12/21 History oral suspension (Milk of Magnesia) oxycodone-acetaminophen 5 mg-325 1 tab PO Q6H PRN #10 tab 08/04/21 08/12/21 Rx mg tablet (Percocet) acetaminophen 500 mg tablet 1,000 mg PO TID PRN 08/08/21 08/12/21 History (Tylenol Extra Strength) ascorbic acid (vitamin C) 500 mg 500 mg PO BID 08/08/21 08/12/21 History tablet bumetanide 0.25 mg/mL injection 3 mg IM BID 08/08/21 08/12/21 History solution metolazone 5 mg tablet 5 mg PO BID 08/08/21 08/12/21 History rbfjhtsnqwwc-qhjaxjaw-secyhp 1 tab PO QAM 08/08/21 08/12/21 History tablet (Multivitamin 50 Plus) bisacodyl 10 mg rectal suppository 10 mg DC DAILY PRN 08/11/21 08/12/21 History cyanocobalamin (vitamin B-12) 1,000 mcg PO HS 08/11/21 08/12/21 History 1,000 mcg tablet hydroxyzine HCl 25 mg tablet 25 mg PO Q6 PRN 08/11/21 08/12/21 History bumetanide 2 mg tablet 2 mg PO BID 08/12/21 08/12/21 History doxycycline hyclate 100 mg tablet 100 mg PO BID tab 08/12/21 08/12/21 History furosemide 10 mg/mL oral solution 60 mg PO BID ml 08/12/21 08/12/21 History mupirocin 2 % topical ointment 1 applic TOPICAL TID 08/12/21 08/12/21 History Past Med/Surg History Medical History (Updated 08/13/21 @ 06:08 by Davis Atkins MD) Chronic back pain Chronic diastolic congestive heart failure Chronic kidney disease Plan for possible dialysis in the future (under surveillance), will be placing fistula in near future preventatively Depression Diabetes IDDM Diastolic CHF Dyslipidemia GERD (gastroesophageal reflux disease) Hypertension Migraine Morbid obesity Osteoarthritis Sleep apnea CPAP Temporomandibular joint disorder Occasional clicking, no locking Surgical History (Updated 08/13/21 @ 06:07 by Davis Atkins MD) History of Achilles tendon repair Right Achilles repair (07/16/21): Grade 2 view, MAC#3, ETT 7.5 + PNB at [facility] History of incision and drainage Left foot multiple with skin graft (total of 5) Left foot I&D (10/08/20): LMA#5 at [facility] Left foot I&D, Stimulan beads (02/12/21): MAC at [facility] History of open reduction and internal fixation (ORIF) procedure Left ankle Bimalleolar Fracture (11/2019) History of placement of ear tubes Right ear History of tonsillectomy and adenoidectomy Hx of cataract surgery R/L Hx of colonoscopy [place] teeth extracted Family History Father Diabetes Mother Diabetes Other Coronary heart disease Hypertension No family history of adverse response to anesthesia Denies family history of Crohn's disease Kidney disease Colorectal cancer Ulcerative colitis Social History Smoking Status: Unknown if ever smoked Tobacco Type: Cigarettes Second Hand Exposure: Yes; Hx Alcohol Use: Yes Alcohol type: beer Hx Substance Use: No Preferred Language: Mosotho Communication Ability: Effective Labor Relations Officer Required: No Beliefs That Will Affect Care: None marital status: Current Living Situation: Spouse Current Living Situation Comment: [facility] current occupational status: employed 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 The review of systems is otherwise negative other than for that already noted above, and at least 10 systems have been reviewed. Physical Exam Physical Exam: The patient is awake, alert and oriented 3, well developed and well nourished, normocephalic and atraumatic, sitting upright on the edge of the bed and in no acute distress. HEENT--PERRL, EOMI, mucous membranes and oropharynx normal. Neck--supple. No JVD. No bruits. Thyroid normal, trachea midline, no adenopathy. Heart--normal S1 and S2. No murmurs, rubs or gallops. Lungs--few crackles at the bases bilaterally, overall diminished. No respiratory distress, no accessory muscle use. Abdomen--normal bowel sounds and soft. Nontender. Nondistended. Morbidly obese Extremities--right foot and calf up to knee in Balaji wrap. Left lower extremity foot to usp up [place] and around calf show moderate erythema and warmth Dermatologic--as noted above Neurologic--cranial nerves II through XII grossly intact. Rheumatologic--limited exam due to body habitus Psychiatric--normal affect. Results & Data Results & Data ([facility]) Vital Signs (Past 12 Hours) Vital Signs Temp Pulse Pulse Resp BP BP Pulse Ox 08/12/21 22:41 69 18 145/105 H 95 08/12/21 16:45 96.8 F L 66 20 164/72 H 96 Laboratory Results Laboratory Results WBC 7.55 K/uL (4.8-10.8) 08/12/21 22:32 RBC 3.38 M/uL (4.7-6.1) L 08/12/21 22:32 Hgb 10.1 g/dL (14.0-18.0) L 08/12/21 22:32 Hct 31.0 % (42-52) L 08/12/21 22:32 MCV 91.7 fL (80-100) 08/12/21 22:32 MCH 29.9 pg (25-34) 08/12/21 22:32 MCHC 32.6 g/dL (32-36) 08/12/21 22:32 RDW Std Deviation 44.4 fL (36.4-46.3) 08/12/21 22:32 RDW Coeff of Diane 13.5 % (11.5-14.5) 08/12/21 22:32 Plt Count 240 K/uL (130-400) 08/12/21 22:32 MPV 9.8 fL (7.4-10.4) 08/12/21 22:32 Immature Gran % (Auto) 0.4 % 08/12/21 22:32 Neut % (Auto) 60.7 % 08/12/21 22:32 Lymph % (Auto) 24.9 % 08/12/21 22:32 [place] % (Auto) 9.5 % 08/12/21 22:32 Eos % (Auto) 4.0 % 08/12/21 22:32 Baso % (Auto) 0.5 % 08/12/21 22: Neut # (Auto) 4.58 K/uL (1.4-6.5) 08/12/21 22:32 Lymph # (Auto) 1.88 K/uL (1.2-3.4) 08/12/21 22:32 [place] # (Auto) 0.72 K/uL (0.11-0.59) H 08/12/21 22:32 Eos # (Auto) 0.30 K/uL (0-0.5) 08/12/21 22:32 Baso # (Auto) 0.04 K/uL (0-0.2) 08/12/21 22:32 Immature Gran # (Auto) 0.03 K/uL (0.00-0.02) H 08/12/21 22:32 PT 10.2 Seconds (9.0-12.0) 08/12/21 22:32 INR 1.0 (0.9-1.1) 08/12/21 22:32 Sodium 132 mmol/L (136-145) L 08/12/21 22:32 Potassium 4.7 mmol/L (3.5-5.1) 08/12/21 23:51 Chloride 97 mmol/L (98-107) L 08/12/21 22:32 Carbon Dioxide 30 mmol/L (21-32) 08/12/21 22:32 Anion Gap 5.0 (3-11) 08/12/21 22:32 BUN 53 mg/dl (7-18) H 08/12/21 22:32 Creatinine 1.75 mg/dl (0.6-1.4) H 08/12/21 22:32 Est Cr Clr Drug Dosing 62.7 ml/min 08/12/21 22:32 Est GFR ( Amer) 49.7 ml/min 08/12/21 22:32 Est GFR (Non-Af Amer) 42.9 ml/min 08/12/21 22:32 BUN/Creatinine Ratio 30.5 (10-20) H 08/12/21 22:32 Glucose 197 mg/dl (70-99) H 08/12/21 22:32 Calcium 8.8 mg/dl (8.5-10.1) 08/12/21 22:32 Phosphorus 3.9 mg/dl (2.5-4.9) 08/12/21 22:32 Magnesium 2.2 mg/dl (1.8-2.4) 08/12/21 23:51 Total Bilirubin 0.6 mg/dl (0.2-1) 08/12/21 22:32 AST 34 U/L (15-37) 08/12/21 23:51 ALT 24 U/L (12-78) 08/12/21 22:32 Alkaline Phosphatase 95 U/L (45-117) 08/12/21 22:32 Total Protein 7.8 gm/dl (6.4-8.2) 08/12/21 22:32 Albumin 3.2 gm/dl (3.4-5.0) L 08/12/21 22:32 Globulin 4.6 gm/dl (2.5-4.0) H 08/12/21 22:32 Albumin/Globulin Ratio 0.7 (0.9-2) L 08/12/21 22:32 Specimen Hemolysis 08/12/21 23:51 COVID-19 Eval Order Covid19 at [facility] 08/12/21 22:32 SARS-CoV-2 (PCR) NEGATIVE (Negative) 08/12/21 22:32 Code Status & VTE Plan Code Status Full code VTE Prophylaxis Plan VTE Prophylaxis will be ordered: Yes PG Care Time/CCT Total # of Minutes Spent Total Time Spent with Patient: Total time spent is greater than 50% in coordination of care (as documented) at patient's floor/unit and/or counseling patient: Coding Level of Care Code 29724 Initial Inpt Care Lvl 3 Diagnoses Abnormal weight gain R63.5 Hypertension I10 HLD (hyperlipidemia) E78.5 WHIT (obstructive sleep apnea) G47.33 Stage 4 chronic kidney disease due to diabetes mellitus E11.22; N18.4 Poorly controlled diabetes mellitus E11.65 Cellulitis of left lower extremity L03.116 History of Achilles tendon repair Z98.890 Need for acute hemodialysis Z99.2
--- NOTE | 2021-08-13 00:26 | Emergency Department Note ---
Impression & Plan Hypervolemia, Stage 4 chronic kidney disease due to diabetes mellitus, Bilateral edema of lower extremity ED Provider Note NAME: BING REYNOLDS AGE: 56 SEX: M ARRIVES VIA: Walk-In INFORMANT: Patient, ED PROVIDER(S): Adonis Nuñez MD CHIEF COMPLAINT: Referred for HD tunneled catheter placement. PLAN: Disposition: Admit MEDICAL DECISION MAKING: The patient is a pleasant 56-year-old gentleman with a medical history of CHF after WHIT, stage IV CKD, obesity, gastroparesis, osteomyelitis of the left foot, hypertension hyperlipidemia, diabetes who presents to the emergency department from [facility] referred by his head wood grinder for admission with plan for hemodialysis tunneled catheter placement tomorrow morning with Dr. Leon who is aware. Plan for dialysis catheter is due to the patient's refractory hypervolemia which has not responded well to diuretics. Patient denies any increased fluid retention since his last ED visit several days ago once the emergency department to exclude right upper extremity DVT after his right upper extremity midline had infiltrated and was pulled and was diagnosed with superficial thrombosis of the cephalic vein. Also was treated for folliculitis. He denies any fevers, chills, cough, congestion, GI or symptoms. On arrival the patient is no acute distress, afebrile with stable vital signs. His O2 saturation is 95% on room air. He appears hypervolemic as he did several days ago but stable. His right upper extremity SVT area appears improved as well and he reports the pain has significantly improved. WBC and platelets within normal limits. H/H similar to prior. Chemistry without metabolic acidosis. Creatinine 1.75 similar to prior range of values in the setting of CKD. Electrolytes without significant abnormality. COVID-19 PCR was negative. Case was discussed with Dr. Atkins [facility] hospitalist, who will evaluate the patient for admission. Triage Nursing notes reviewed and agree them. Prior medical records reviewed Vital Signs: reviewed and remarkable for no significant abnormalities Differential diagnosis: Infection, dehydration, metabolic abnormality, hypo/hyperglycemia, electrolyte disturbance, anemia, hypoxia, cardiac sources, intracerebral event, toxicologic, neurologic, as well as other pathologies. ER treatment provided: See below. Laboratory studies: See below Consultation(s): Case was discussed with Dr. Atkins [facility] hospitalist, who will evaluate the patient for admission. HPI: The patient is a pleasant 56-year-old gentleman with a medical history of CHF after WHIT, stage IV CKD, obesity, gastroparesis, osteomyelitis of the left foot, hypertension hyperlipidemia, diabetes who presents to the emergency department from [facility] referred by his head wood grinder for admission with plan for hemodialysis tunneled catheter placement tomorrow morning with Dr. Leon who is aware. Plan for dialysis catheter due to the patient's refractory hypervolemia which has not responded well to diuretics. Patient denies any increased fluid retention since his last ED visit several days ago once the emergency department to exclude right upper extremity DVT after his right upper extremity midline had infiltrated and was pulled and was diagnosed with s uperficial thrombosis of the cephalic vein. Also was treated for folliculitis. He denies any fevers, chills, cough, congestion, GI or symptoms. ROS: See above HPI for pertinent positives & negatives. A total of 10 systems reviewed and were otherwise negative. PAST MEDICAL HISTORY:See Below PAST SURGICAL HISTORY:See Below FAMILY HISTORY:See Below SOCIAL HISTORY:See Below HOME MEDICATIONS:See Below ALLERGIES:See Below VITALS:See Below PHYSICAL EXAMINATION: GENERAL: Awake, alert, chronically ill-appearing, in no distress HENT: Normocephalic, atraumatic. Oropharynx unremarkable. EYES: Normal conjunctiva. Sclera non-icteric. NECK: Supple. No nuchal rigidity. FROM. No JVD. RESPIRATORY: Clear to auscultation. CARDIAC: Regular rate, normal rhythm. Extremities warm and well perfused. Pulses equal. ABDOMEN: Soft, non-distended. No tenderness to palpation. No rebound or guarding. No masses. RECTAL: Deferred. MUSCULOSKELETAL: Chest examination reveals no tenderness. The back is symmetrical on inspection without obvious abnormality. There is no CVA tende rness to palpation. No joint edema. EXTREMITIES: Right mid upper arm improved from prior. Residual SVT. There is no induration or significant warmth. Prior folliculitis has significantly improved. RLE with lower leg splint s/p surgery. 4+ LLE pitting edema. NEURO: Normal sensorium. No sensory or motor deficits noted. SKIN: No rash or jaundice noted. Adonis Nuñez MD Past Med/Surg History Medical History Chronic back pain Chronic diastolic congestive heart failure Chronic kidney disease Plan for possible dialysis in the future (under surveillance), will be placing fistula in near future preventatively Depression Diabetes IDDM Diastolic CHF Dyslipidemia GERD (gastroesophageal reflux disease) Hypertension Migraine Morbid obesity Osteoarthritis Sleep apnea CPAP Temporomandibular joint disorder Occasional clicking, no locking Surgical History History of Achilles tendon repair Right Achilles repair (07/16/21): Grade 2 view, MAC#3, ETT 7.5 + PNB at [facility] History of incision and drainage Left foot multiple with skin graft (total of 5) Left foot I&D (10/08/20): LMA#5 at [facility] Left foot I&D, Stimulan beads (02/12/21): MAC at [facility] History of open reduction and internal fixation (ORIF) procedure Left ankle Bimalleolar Fracture (11/2019) History of placement of ear tubes Right ear History of tonsillectomy and adenoidectomy Hx of cataract surgery R/L Hx of colonoscopy [place] teeth extracted Family History Father Diabetes Mother Diabetes Other Coronary heart disease Hypertension No family history of adverse response to anesthesia Denies family history of Crohn's disease Kidney disease Colorectal cancer Ulcerative colitis Social History Smoking Status: Unknown if ever smoked Tobacco Type: Cigarettes Second Hand Exposure: Yes; Hx Alcohol Use: Yes Alcohol type: beer Hx Substance Use: No Preferred Language: Guinean Communication Ability: Effective Commercial Print Salesman Required: No Beliefs That Will Affect Care: None marital status: Current Living Situation: Spouse Current Living Situation Comment: [facility] current occupational status: employed 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 Feels Safe at Home: Yes Assistive Devices: CPAP Allergies Allergies Allergy/AdvReac Type Severity Reaction Status Date / Time hydralazine Allergy Mild Rash Verified 08/12/21 20:28 Calcium Channel Blocking Allergy Rash, Verified 08/12/21 20:28 Agent Dilt swelling semaglutide [From Ozempic] Allergy Unknown Verified 08/12/21 20:28 amitriptyline AdvReac Mild Muscle Verified 08/12/21 20:28 twitching Home Meds Home Medications Medication Instructions Recorded Confirmed atorvastatin 80 mg tablet 80 mg PO QPM 08/02/18 08/12/21 magnesium oxide 400 mg PO HS 08/02/18 08/12/21 metoprolol succinate 50 mg 150 mg PO QPM 08/02/18 08/12/21 tablet,extended release 24 hr omega 3-sip-pig-fish oil 1,000 mg 1 cap PO QPM 02/20/19 08/12/21 (120 mg-180 mg) capsule (Fish Oil) cholecalciferol (vitamin D3) 25 2,000 units PO QPM tab 11/19/19 08/12/21 mcg (1,000 unit) chewable tablet (Vitamin D3) gabapentin 600 mg tablet 600 mg PO TID 12/06/19 08/12/21 fluticasone propionate 50 1 spray INTRANASAL BID 05/05/20 08/12/21 mcg/actuation nasal spray,suspension (Flonase Allergy Relief) insulin regular hum U-500 conc 500 50 unit SUBCUT TIDM 09/18/20 08/12/21 unit/mL subcutaneous soln (Humulin R U-500 (Concentrated) Insulin) doxazosin 4 mg tablet 4 mg PO HS 10/01/20 08/12/21 insulin glargine 100 unit/mL (3 50 unit SUBCUT HS 10/16/20 08/12/21 mL) subcutaneous pen (Lantus Solostar U-100 Insulin) ferrous sulfate 325 mg (65 mg 325 mg PO QAM 02/03/21 08/12/21 iron) tablet melatonin 10 mg capsule 10 mg PO HS 05/17/21 08/12/21 insulin lispro 100 unit/mL 8 - 18 sliding scale dose SUBCUT 07/28/21 08/12/21 subcutaneous solution (Humalog USEASDIRECTD U-100 Insulin) magnesium hydroxide 400 mg/5 mL 15 ml PO DAILY PRN 07/28/21 08/12/21 oral suspension (Milk of Magnesia) acetaminophen 500 mg tablet 1,000 mg PO TID PRN 08/08/21 08/12/21 (Tylenol Extra Strength) ascorbic acid (vitamin C) 500 mg 500 mg PO BID 08/08/21 08/12/21 tablet bumetanide 0.25 mg/mL injection 3 mg IM BID 08/08/21 08/12/21 solution metolazone 5 mg tablet 5 mg PO BID 08/08/21 08/12/21 cinfqwcqntti-osprmydk-[id number] 1 tab PO QAM 08/08/21 08/12/21 tablet (Multivitamin 50 Plus) bisacodyl 10 mg rectal suppository 10 mg [place] DAILY PRN 08/11/21 08/12/21 cyanocobalamin (vitamin B-12) 1,000 mcg PO HS 08/11/21 08/12/21 1,000 mcg tablet hydroxyzine HCl 25 mg tablet 25 mg PO Q6 PRN 08/11/21 08/12/21 bumetanide 2 mg tablet 2 mg PO BID 08/12/21 08/12/21 doxycycline hyclate 100 mg tablet 100 mg PO BID tab 08/12/21 08/12/21 furosemide 10 mg/mL oral solution 60 mg PO BID ml 08/12/21 08/12/21 mupirocin 2 % topical ointment 1 applic TOPICAL TID 08/12/21 08/12/21 Previous Rx's Medication Instructions Recorded omeprazole 20 mg capsule,delayed 20 mg PO QPM #0 cap 08/14/19 release polyethylene glycol 3350 17 17 gm PO BID PRN #510 gm 12/23/19 gram/dose oral powder aspirin 81 mg tablet,delayed 81 mg PO BID 30 Days #60 tab 07/20/21 release oxycodone 5 mg tablet 5 mg PO Q4H PRN #18 tab MDD 6 07/20/21 oxycodone-acetaminophen 5 mg-325 1 tab PO Q6H PRN #10 tab 08/04/21 mg tablet (Percocet) Results & Data (ED) Vital Signs Vital Signs - 24 hr 08/12/21 16:45 08/12/21 22:41 Temperature 36.0 C L Temperature Source Temporal Artery Scan Pulse Rate 66 Pulse Rate [Finger] 69 Pulse Rhythm [Finger] Regular Pulse Strength [Finger] Normal Respiratory Rate 20 18 Respiratory Effort / Characteristics Non-Labored Non-Labored Respiratory Depth Normal Normal Blood Pressure 164/72 H Blood Pressure [Right Arm] 145/105 H Blood Pressure Mean 102 Blood Pressure Mean [Right Arm] 118 Blood Pressure Position [Right Arm] Lying Pulse Oximetry 96 95 Oxygen Delivery Method Room Air Room Air Sepsis Recent Fever Within 48 Hours No Sepsis New/Unexplained Change in Mental Status N/A Sepsis Action Taken by Nursing No Action Required Laboratory Data Attestation: I reviewed the patient's lab results. Result diagrams: 08/12/21 22:32 08/12/21 23:51 Lab Results 08/12/21 08/12/21 08/12/21 Range/Units 22:32 22:32 22:32 WBC 7.55 (4.8-10.8) K/uL RBC 3.38 L (4.7-6.1) M/uL Hgb 10.1 L (14.0-18.0) g/dL Hct 31.0 L (42-52) % MCV 91.7 (80-100) fL MCH 29.9 (25-34) pg MCHC 32.6 (32-36) g/dL RDW Std Deviation 44.4 (36.4-46.3) fL RDW Coeff of Diane 13.5 (11.5-14.5) % Plt Count 240 (130-400) K/uL MPV 9.8 (7.4-10.4) fL Immature Gran % (Auto) 0.4 % Neut % (Auto) 60.7 % Lymph % (Auto) 24.9 % Lamb % (Auto) 9.5 % Eos % (Auto) 4.0 % Baso % (Auto) 0.5 % Neut # (Auto) 4.58 (1.4-6.5) K/uL Lymph # (Auto) 1.88 (1.2-3.4) K/uL Lamb # (Auto) 0.72 H (0.11-0.59) K/uL Eos # (Auto) 0.30 (0-0.5) K/uL Baso # (Auto) 0.04 (0-0.2) K/uL Immature Gran # (Auto) 0.03 H (0.00-0.02) K/uL PT 10.2 (9.0-12.0) Seconds INR 1.0 (0.9-1.1) Sodium 132 L (136-145) mmol/L Potassium (3.5-5.1) mmol/L Chloride 97 L (98-107) mmol/L Carbon Dioxide 30 (21-32) mmol/L Anion Gap 5.0 (3-11) BUN 53 H (7-18) mg/dl Creatinine 1.75 H (0.6-1.4) mg/dl Est Cr Clr Drug Dosing 62.7 ml/min Est GFR ( Amer) 49.7 ml/min Est GFR (Non-Af Amer) 42.9 ml/min BUN/Creatinine Ratio 30.5 H (10-20) Glucose 197 H (70-99) mg/dl Calcium 8.8 (8.5-10.1) mg/dl Phosphorus 3.9 (2.5-4.9) mg/dl Magnesium (1.8-2.4) mg/dl Total Bilirubin 0.6 (0.2-1) mg/dl AST (15-37) U/L ALT 24 (12-78) U/L Alkaline Phosphatase 95 (45-117) U/L Total Protein 7.8 (6.4-8.2) gm/dl Albumin 3.2 L (3.4-5.0) gm/dl Globulin 4.6 H (2.5-4.0) gm/dl Albumin/Globulin Ratio 0.7 L (0.9-2) COVID-19 Eval Order SARS-CoV-2 (PCR) (Negative) 08/12/21 08/12/21 Range/Units 22:32 22:32 WBC (4.8-10.8) K/uL RBC (4.7-6.1) M/uL Hgb (14.0-18.0) g/dL Hct (42-52) % MCV (80-100) fL MCH (25-34) pg MCHC (32-36) g/dL RDW Std Deviation (36.4-46.3) fL RDW Coeff of Diane (11.5-14.5) % Plt Count (130-400) K/uL MPV (7.4-10.4) fL Immature Gran % (Auto) % Neut % (Auto) % Lymph % (Auto) % Lamb % (Auto) % Eos % (Auto) % Baso % (Auto) % Neut # (Auto) (1.4-6.5) K/uL Lymph # (Auto) (1.2-3.4) K/uL Lamb # (Auto) (0.11-0.59) K/uL Eos # (Auto) (0-0.5) K/uL Baso # (Auto) (0-0.2) K/uL Immature Gran # (Auto) (0.00-0.02) K/uL PT (9.0-12.0) Seconds INR (0.9-1.1) Sodium (136-145) mmol/L Potassium (3.5-5.1) mmol/L Chloride (98-107) mmol/L Carbon Dioxide (21-32) mmol/L Anion Gap (3-11) BUN (7-18) mg/dl Creatinine (0.6-1.4) mg/dl Est Cr Clr Drug Dosing ml/min Est GFR ( Amer) ml/min Est GFR (Non-Af Amer) ml/min BUN/Creatinine Ratio (10-20) Glucose (70-99) mg/dl Calcium (8.5-10.1) mg/dl Phosphorus (2.5-4.9) mg/dl Magnesium (1.8-2.4) mg/dl Total Bilirubin (0.2-1) mg/dl AST (15-37) U/L ALT (12-78) U/L Alkaline Phosphatase (45-117) U/L Total Protein (6.4-8.2) gm/dl Albumin (3.4-5.0) gm/dl Globulin (2.5-4.0) gm/dl Albumin/Globulin Ratio (0.9-2) COVID-19 Eval Order Covid19 at [facility] SARS-CoV-2 (PCR) NEGATIVE (Negative) Administered Medications Daptomycin 375 mg/ Syringe 7.5 mls @ 3.75 mls/min IV Q24H LELIA; Protocol Stop: 08/20/21 02:29 Last Admin: 08/13/21 04:20 Dose: 3.75 mls/min Documented by: [id number] Discontinued Medications Heparin Sodium (Porcine) (Heparin Sod 5,000 Unit/0.5 Ml Vial) 7,500 units SQ NOW STA Stop: 08/12/21 23:41 Last Admin: 08/13/21 00:05 Dose: 7,500 units Documented by: [id number] Piperacillin Sod/Tazobactam (Sod 4.5 gm/ Dextrose) 120 mls @ 200 mls/hr IV ONE ONE; Protocol Stop: 08/13/21 02:35 Last Infusion: 08/13/21 05:01 Dose: 0 mls/hr Documented by: [id number] Admin: 08/13/21 04:20 Dose: 200 mls/hr Documented by: [id number] Discharge Plan Visit Data Chief Complaint: Abnormal Labs/Diagnostic Testing Stated Complaint: WANTS DOCTOR TO PUT CATH IN FOR DIALYSIS Discharge Problem: Hypervolemia, Stage 4 chronic kidney disease due to diabetes mellitus, Bilateral edema of lower extremity Discharge Instructions Interventions: ED Discharge Assessment Last Done: 08/13/21 01:29
[2021-08-13 00:28] LABS: Magnesium 2.2 mg/dl (1.8-2.4); Potassium 4.7 mmol/L (3.5-5.1)
[2021-08-13] MEDS ORDERED: PIPERACILLIN/TAZOBACTAM 3.375 GM in DEXTROSE 5% 100 ML IV SCH (01:30)
[2021-08-13] MEDS ORDERED: GLUCOSE 40% GEL 15 GM TUBE PO PRN (01:30)
[2021-08-13] MEDS ORDERED: MAGNESIUM HYDROXIDE SUSP 30 ML UDC PO PRN (01:30)
[2021-08-13] MEDS ORDERED: hydrOXYzine HCl 25 MG TAB PO PRN (01:30)
[2021-08-13] MEDS ORDERED: GLUCAGON FOR INJ 1 MG VIAL SQ PRN (01:30)
[2021-08-13] MEDS ORDERED: GLUCOSE 10 TABS/TUBE PO PRN (01:30)
[2021-08-13] MEDS ORDERED: ONDANSETRON INJ 2 MG/ML 2 ML VIAL IV PRN (01:30)
[2021-08-13] MEDS ORDERED: POLYETHYLENE (MIRALAX) 17 GM PACK PO PRN (01:30)
[2021-08-13] MEDS ORDERED: bisacodyL 10 MG SUPP PR PRN (01:30)
[2021-08-13] MEDS ORDERED: PIPERACILL/TAZOBAC CONSULT ACTIVE PRN (01:30)
[2021-08-13] MEDS ORDERED: DEXTROSE 50% 50 ML SYRINGE IV PRN (01:30)
[2021-08-13] MEDS ORDERED: CARBOHYDRATES FOR HYPOGLYCEMIA PO PRN (01:30)
[2021-08-13] MEDS ORDERED: ACETAMINOPHEN 500 MG TAB PO PRN (01:47)
[2021-08-13] MEDS ORDERED: PIPERACILLIN/TAZOBACTAM 4.5 GM in DEXTROSE 5% 100 ML IV ONE (02:00)
[2021-08-13] MEDS: DAPTOmycin 375 MG in SYRINGE 0 ML IV SCH (04:20)
[2021-08-13] MEDS ORDERED: FAMOTIDINE 20MG/5ML IV PUSH IV ONE (05:26)
[2021-08-13] MEDS ORDERED: FUROSEMIDE 80 MG in SYRINGE 0 ML IV ONE (06:15)
[2021-08-13 06:23] LABS: Basophils # (auto) 0.04 K/uL (0-0.2); Basophils % (auto) 0.5 %; Eosinophils # (auto) 0.26 K/uL (0-0.5); Eosinophils % (auto) 3.5 %; Hematocrit (blood only) 28.8 % (42-52); Hemoglobin 9.5 g/dL (14.0-18.0); Immature Granulocytes # (auto) 0.03 K/uL (0.00-0.02); Immature Granulocytes % (auto) 0.4 %; Lymphocytes # (auto) 2.27 K/uL (1.2-3.4); Lymphocytes % (auto) 30.8 %; Mean Corpuscular Volume 90.9 fL (80-100); Mean Platelet Volume 9.6 fL (7.4-10.4); Monocytes # (auto) 0.55 K/uL (0.11-0.59); Monocytes % (auto) 7.5 %; Neutrophils # (auto) 4.22 K/uL (1.4-6.5); Neutrophils % (auto) 57.3 %; Platelet Count 229 K/uL (130-400); RDW Coefficient of Variation 13.5 % (11.5-14.5); RDW Standard Deviation 44.5 fL (36.4-46.3); Red Blood Count 3.17 M/uL (4.7-6.1); White Blood Count 7.37 K/uL (4.8-10.8)
[2021-08-13 07:03] LABS: Albumin Globulin Ratio 0.7 (0.9-2); Albumin Level 2.9 gm/dl (3.4-5.0); BUN Creatinine Ratio 30.1 (10-20); Bilirubin,Total 0.5 mg/dl (0.2-1); Calcium 8.7 mg/dl (8.5-10.1); Creatinine Clr Calc Pharmacy 64.6 ml/min; Est GFR (African American) 51.5 ml/min; Est GFR (Non-African American) 44.4 ml/min; Globulin 4.2 gm/dl (2.5-4.0); Magnesium 2.3 mg/dl (1.8-2.4); Potassium 4.2 mmol/L (3.5-5.1); Total Protein 7.1 gm/dl (6.4-8.2)
[2021-08-13 07:19] LABS: Beta-Hydroxybutyrate 1.7 mg/dl (0.2-2.81)
[2021-08-13 07:58] LABS: Estimated Average Glucose 174 mg/dl; Hemoglobin A1C 7.7 % (4.5-5.6)
--- NOTE | 2021-08-13 08:57 | Consultation ---
Date of Consultation August 13, 2021 Assessment & Plan (1) Acute on chronic renal failure: Pt on schedule for permcath insertion by Dr Leon later this AM. Procedure, risks, benefits and alternatives discussed with pt, he expresses understanding and agreement. Patient was seen, examined, and chart reviewed. Agree with exam and treatment plan of the Vascular PA. I have discussed the risks options and benefits of the procedure with the patient. The patient understands the risks options and benefits and agrees to the procedure. Acute renal failure type: unspecified Chronic kidney disease stage: unspecified stage Qualified Code(s): N17.9 - Acute kidney failure, unspecified; N18.9 - Chronic kidney disease, unspecified History of Present Illness Reason for Consultation: ESRD, need permcath for HD Attending Physician: Davis Atkins MD History of Present Illness 56 yo m with hx of CKD, hyperlipidemia, HTN, CHF, WHIT, DMII, chronic anemia, morbid obesity, admitted with worsening renal fxn and need for HD. Pt known to Dr Leon for undergoing L forearm radiocephalic AVF creation on 08/04, but it is not yet matured. Pt admits fatigue/malaise, edema, weight gain,and chronic wound to R foot/leg. Pt denies JEFFERY, fever, chest pain, SOB, abd pain N/V, rest pain, claudication, other complaints. Currently using wheelchair d/t cast/dressing to R foot. Allergies Allergy/AdvReac Type Severity Reaction Status Date / Time hydralazine Allergy Mild Rash Verified 08/12/21 20:28 Calcium Channel Blocking Allergy Rash, Verified 08/12/21 20:28 Agent Dilt swelling semaglutide [From Ozempic] Allergy Unknown Verified 08/12/21 20:28 amitriptyline AdvReac Mild Muscle Verified 08/12/21 20:28 twitching Home Medications Medication Instructions Recorded Confirmed Type atorvastatin 80 mg tablet 80 mg PO QPM 08/02/18 08/12/21 History magnesium oxide 400 mg PO HS 08/02/18 08/12/21 History metoprolol succinate 50 mg 150 mg PO QPM 08/02/18 08/12/21 History tablet,extended release 24 hr omega 1-tph-yqg-fish oil 1,000 mg 1 cap PO QPM 02/20/19 08/12/21 History (120 mg-180 mg) capsule (Fish Oil) omeprazole 20 mg capsule,delayed 20 mg PO QPM #0 cap 08/14/19 08/12/21 Rx release cholecalciferol (vitamin D3) 25 2,000 units PO QPM tab 11/19/19 08/12/21 History mcg (1,000 unit) chewable tablet (Vitamin D3) gabapentin 600 mg tablet 600 mg PO TID 12/06/19 08/12/21 History polyethylene glycol 3350 17 17 gm PO BID PRN #510 gm 12/23/19 08/12/21 Rx gram/dose oral powder fluticasone propionate 50 1 spray INTRANASAL BID 05/05/20 08/12/21 History mcg/actuation nasal spray,suspension (Flonase Allergy Relief) insulin regular hum U-500 conc 500 50 unit SUBCUT TIDM 09/18/20 08/12/21 History unit/mL subcutaneous soln (Humulin R U-500 (Concentrated) Insulin) doxazosin 4 mg tablet 4 mg PO HS 10/01/20 08/12/21 History insulin glargine 100 unit/mL (3 50 unit SUBCUT HS 10/16/20 08/12/21 History mL) subcutaneous pen (Lantus Solostar U-100 Insulin) ferrous sulfate 325 mg (65 mg 325 mg PO QAM 02/03/21 08/12/21 History iron) tablet melatonin 10 mg capsule 10 mg PO HS 05/17/21 08/12/21 History aspirin 81 mg tablet,delayed 81 mg PO BID 30 Days #60 tab 07/20/21 08/12/21 Rx release oxycodone 5 mg tablet 5 mg PO Q4H PRN #18 tab MDD 6 07/20/21 08/12/21 Rx insulin lispro 100 unit/mL 8 - 18 sliding scale dose SUBCUT 07/28/21 08/12/21 History subcutaneous solution (Humalog USEASDIRECTD U-100 Insulin) magnesium hydroxide 400 mg/5 mL 15 ml PO DAILY PRN 07/28/21 08/12/21 History oral suspension (Milk of Magnesia) oxycodone-acetaminophen 5 mg-325 1 tab PO Q6H PRN #10 tab 08/04/21 08/12/21 Rx mg tablet (Percocet) acetaminophen 500 mg tablet 1,000 mg PO TID PRN 08/08/21 08/12/21 History (Tylenol Extra Strength) ascorbic acid (vitamin C) 500 mg 500 mg PO BID 08/08/21 08/12/21 History tablet bumetanide 0.25 mg/mL injection 3 mg IM BID 08/08/21 08/12/21 History solution metolazone 5 mg tablet 5 mg PO BID 08/08/21 08/12/21 History jphmdgvyraqz-dxhkxarm-lryeaa 1 tab PO QAM 08/08/21 08/12/21 History tablet (Multivitamin 50 Plus) bisacodyl 10 mg rectal suppository 10 mg [place] DAILY PRN 08/11/21 08/12/21 History cyanocobalamin (vitamin B-12) 1,000 mcg PO HS 08/11/21 08/12/21 History 1,000 mcg tablet hydroxyzine HCl 25 mg tablet 25 mg PO Q6 PRN 08/11/21 08/12/21 History bumetanide 2 mg tablet 2 mg PO BID 08/12/21 08/12/21 History doxycycline hyclate 100 mg tablet 100 mg PO BID tab 08/12/21 08/12/21 History furosemide 10 mg/mL oral solution 60 mg PO BID ml 08/12/21 08/12/21 History mupirocin 2 % topical ointment 1 applic TOPICAL TID 08/12/21 08/12/21 History Patient History Medical History Chronic back pain Chronic diastolic congestive heart failure Chronic kidney disease Plan for possible dialysis in the future (under surveillance), will be placi ng fistula in near future preventatively Depression Diabetes IDDM Diastolic CHF Dyslipidemia GERD (gastroesophageal reflux disease) Hypertension Migraine Morbid obesity Osteoarthritis Sleep apnea CPAP Temporomandibular joint disorder Occasional clicking, no locking Surgical History History of Achilles tendon repair Right Achilles repair (07/16/21): Grade 2 view, MAC#3, ETT 7.5 + PNB at [facility] History of incision and drainage Left foot multiple with skin graft (total of 5) Left foot I&D (10/08/20): LMA#5 at [facility] Left foot I&D, Stimulan beads (02/12/21): MAC at [facility] History of open reduction and internal fixation (ORIF) procedure Left ankle Bimalleolar Fracture (11/2019) History of placement of ear tubes Right ear History of tonsillectomy and adenoidectomy Hx of cataract surgery R/L Hx of colonoscopy [place] teeth extracted Family History Father Diabetes Mother Diabetes Other Coronary heart disease Hypertension No family history of adverse response to anesthesia Denies family history of Crohn's disease Kidney disease Colorectal cancer Ulcerative colitis Social History Smoking Status: Unknown if ever smoked Tobacco Type: Cigarettes Second Hand Exposure: Yes; Hx Alcohol Use: Yes Alcohol type: beer Hx Substance Use: No Preferred Language: Tunisian Communication Ability: Effective Binding End Stitcher Required: No Beliefs That Will Affect Care: None marital status: Current Living Situation: Spouse Current Living Situation Comment: [facility] current occupational status: employed 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 RLE with dressing) and radial pulses present; + abnormal peripheral pulses Extremities: normal capillary refill, + edema (generalized) and + AV fistula (L forearm +thrill/bruit) Gastrointestinal (Abdomen): Inspection/Auscultation: abdomen normal to inspection and normal bowel sounds Percussion/Palpation: abdomen nontender Musculoskeletal: no cyanosis or clubbing, extremities motor strength 5/5 Skin: normal turgor, + wound (R foot), + dry skin and + incision (L wrist without erythema/fluctuance/drainage, scab noted) Neurologic: moves all extremities and awake; no focal motor deficits and not confused Psychiatric: A+Ox3, euthymic affect Results & Data ([facility]) Vital Signs (Past 12 Hours) Vital Signs Temp Pulse Resp BP Pulse Ox 08/13/21 04:00 37 C 78 20 160/48 H 94 08/13/21 00:00 70 138/60 94 08/12/21 22:41 69 18 145/105 H 95
[2021-08-13] MEDS ORDERED: ceFAZolin 1000MG 1,000 MG/7.5 ML SYR IV ONE (08:58)
[2021-08-13] MEDS ORDERED: PIPERACILLIN/TAZOBACTAM 4.5 GM/120ML D5W IV ONE (09:10)
[2021-08-13] MEDS: PIPERACILLIN/TAZOBACTAM 4.5 GM in DEXTROSE 5% 100 ML IV SCH ×3 (09:32→23:22)
[2021-08-13] MEDS: INSULIN ASPART 100 UNITS/ML 3 ML PEN SC SCH ×5 (09:32→21:20)
[2021-08-13 09:55] LABS: Hepatitis B Surface Ab Quant < 3.10 mIU/mL (>or=10mIU/mL Immune); Hepatitis B Surface Antibody Non-Immune
[2021-08-13 10:06] LABS: Hepatitis B Surf Ag Rflx Conf Neg (Neg)
--- NOTE | 2021-08-13 10:44 | Nephrology Consultation ---
Date of Consultation August 13, 2021 Assessment & Plan (1) Need for acute hemodialysis: (2) Cellulitis of left lower extremity: (3) Hypervolemia: (4) Hypertension: 56-year-old gentlemen with stage IIIB/4 CKD and chronic diuretic resistant volume overload with right-sided heart failure. Had right radiocephalic AV fistula on 08/03/2021 with plan for starting on dialysis in future. However, over last few weeks he gained more than 40 lb despite getting high dose of diuretics. Admitted overnight for tunneled dialysis catheter to start on hemodialysis. -- Will plan for 2 hours dialysis this afternoon and try 1 L of UF or more as tolerated. Will get 3 hour dialysis tomorrow -- Epogen 31901 units during dialysis and start on IV Venofer -- discussed with keycase assembler in ED for referral for outpatient dialysis will follow Thank you for allowing me to participate in your patient's care. It was a pleasure to see Mr. Swartz. History of Present Illness Reason for Consultation: To initiate hemodialysis for diuretic resistant volume overload. Attending Physician: Davis Atkins MD History of Present Illness Reid Swartz is a 56-year-old gentleman with past medical history significant for stage III B/4 CKD, hypertension, diabetes, CHF, chronic lower extremity edema admitted to the hospital for tunneled dialysis catheter to initiate on hemodialysis for ultrafiltration. Nephrology consult was requested to manage dialysis. [facility] records are reviewed in detail during patient's visit. Inder has stage IIIB/4 CKD baseline creatinine 1.7-1.8 Possibly secondary to cardiorenal syndrome. He has history of chronic lower extremity edema secondary to right-sided heart failure. Has been on Bumex 3 mg twice a day and metolazone 5 mg 3 times a week. Has been following with heart failure clinic and nephrology clinic with Dr. Alvarez. As he remained resistant to high dose of diuretic with persistent significant lower extremity edema, decision was made to eventually start him on hemodialysis for ultrafiltration. He had right radiocephalic AV fistula placed on 07/14/2021. However, when he was seen by Dr. Alvarez 3 days ago and he was noted to have gained more than 40 lb over 3 weeks Despite getting his regular diuretic dose. He was referred to ER to start on dialysis via tunneled dialysis catheter. He was admitted overnight and plan to have tunnel catheter now. Past medical history also significant for hypertension, diabetes and CHF with right-sided heart failure. he also has gastroparesis. Has chronic venous stasis dermatitis. Prior history of COSMO and hyperkalemia in 2019 requiring dialysis x1, eventually kidney function improved and has been relatively stable. He reports voiding normally, denies shortness of breath or chest pain. Renal function at baseline. Electrolyte has been acceptable. has anemia with iron deficiency, hemoglobin relatively stable. Allergies Allergy/AdvReac Type Severity Reaction Status Date / Time hydralazine Allergy Mild Rash Verified 08/12/21 20:28 Calcium Channel Blocking Allergy Rash, Verified 08/12/21 20:28 Agent Dilt swelling semaglutide [From Ozempic] Allergy Unknown Verified 08/12/21 20:28 amitriptyline AdvReac Mild Muscle Verified 08/12/21 20:28 twitching Home Medications Medication Instructions Recorded Confirmed Type atorvastatin 80 mg tablet 80 mg PO QPM 08/02/18 08/12/21 History magnesium oxide 400 mg PO HS 08/02/18 08/12/21 History metoprolol succinate 50 mg 150 mg PO QPM 08/02/18 08/12/21 History tablet,extended release 24 hr omega 8-ieu-wms-fish oil 1,000 mg 1 cap PO QPM 02/20/19 08/12/21 History (120 mg-180 mg) capsule (Fish Oil) omeprazole 20 mg capsule,delayed 20 mg PO QPM #0 cap 08/14/19 08/12/21 Rx release cholecalciferol (vitamin D3) 25 2,000 units PO QPM tab 11/19/19 08/12/21 History mcg (1,000 unit) chewable tablet (Vitamin D3) gabapentin 600 mg tablet 600 mg PO TID 12/06/19 08/12/21 History polyethylene glycol 3350 17 17 gm PO BID PRN #510 gm 12/23/19 08/12/21 Rx gram/dose oral powder fluticasone propionate 50 1 spray INTRANASAL BID 05/05/20 08/12/21 History mcg/actuation nasal spray,suspension (Flonase Allergy Relief) insulin regular hum U-500 conc 500 50 unit SUBCUT TIDM 09/18/20 08/12/21 History unit/mL subcutaneous soln (Humulin R U-500 (Concentrated) Insulin) doxazosin 4 mg tablet 4 mg PO HS 10/01/20 08/12/21 History insulin glargine 100 unit/mL (3 50 unit SUBCUT HS 10/16/20 08/12/21 History mL) subcutaneous pen (Lantus Solostar U-100 Insulin) ferrous sulfate 325 mg (65 mg 325 mg PO QAM 02/03/21 08/12/21 History iron) tablet melatonin 10 mg capsule 10 mg PO HS 05/17/21 08/12/21 History aspirin 81 mg tablet,delayed 81 mg PO BID 30 Days #60 tab 07/20/21 08/12/21 Rx release oxycodone 5 mg tablet 5 mg PO Q4H PRN #18 tab MDD 6 07/20/21 08/12/21 Rx insulin lispro 100 unit/mL 8 - 18 sliding scale dose SUBCUT 07/28/21 08/12/21 History subcutaneous solution (Humalog USEASDIRECTD U-100 Insulin) magnesium hydroxide 400 mg/5 mL 15 ml PO DAILY PRN 07/28/21 08/12/21 History oral suspension (Milk of Magnesia) oxycodone-acetaminophen 5 mg-325 1 tab PO Q6H PRN #10 tab 08/04/21 08/12/21 Rx mg tablet (Percocet) acetaminophen 500 mg tablet 1,000 mg PO TID PRN 08/08/21 08/12/21 History (Tylenol Extra Strength) ascorbic acid (vitamin C) 500 mg 500 mg PO BID 08/08/21 08/12/21 History tablet bumetanide 0.25 mg/mL injection 3 mg IM BID 08/08/21 08/12/21 History solution metolazone 5 mg tablet 5 mg PO BID 08/08/21 08/12/21 History jfpqjkscuoet-jkbpmnlk-cqwbst 1 tab PO QAM 08/08/21 08/12/21 History tablet (Multivitamin 50 Plus) bisacodyl 10 mg rectal suppository 10 mg AL DAILY PRN 08/11/21 08/12/21 History cyanocobalamin (vitamin B-12) 1,000 mcg PO HS 08/11/21 08/12/21 History 1,000 mcg tablet hydroxyzine HCl 25 mg tablet 25 mg PO Q6 PRN 08/11/21 08/12/21 History bumetanide 2 mg tablet 2 mg PO BID 08/12/21 08/12/21 History doxycycline hyclate 100 mg tablet 100 mg PO BID tab 08/12/21 08/12/21 History furosemide 10 mg/mL oral solution 60 mg PO BID ml 08/12/21 08/12/21 History mupirocin 2 % topical ointment 1 applic TOPICAL TID 08/12/21 08/12/21 History Patient History Medical History Chronic back pain Chronic diastolic congestive heart failure Chronic kidney disease Plan for possible dialysis in the future (under surveillance), will be placing fistula in near future preventatively Depression Diabetes IDDM Diastolic CHF Dyslipidemia GERD (gastroesophageal reflux disease) Hypertension Migraine Morbid obesity Osteoarthritis Sleep apnea CPAP Temporomandibular joint disorder Occasional clicking, no locking Surgical History History of Achilles tendon repair Right Achilles repair (07/16/21): Grade 2 view, MAC#3, ETT 7.5 + PNB at [facility] History of incision and drainage Left foot multiple with skin graft (total of 5) Left foot I&D (10/08/20): LMA#5 at [facility] Left foot I&D, Stimulan beads (02/12/21): MAC at [facility] History of open reduction and internal fixation (ORIF) procedure Left ankle Bimalleolar Fracture (11/2019) History of placement of ear tubes Right ear History of tonsillectomy and adenoidectomy Hx of cataract surgery R/L Hx of colonoscopy [place] teeth extracted Family History Father Diabetes Mother Diabetes Other Coronary heart disease Hypertension No family history of adverse response to anesthesia Denies family history of Crohn's disease Kidney disease Colorectal cancer Ulcerative colitis Social History Smoking Status: Unknown if ever smoked Tobacco Type: Cigarettes Second Hand Exposure: Yes; Hx Alcohol Use: Yes Alcohol type: beer Hx Substance Use: No Preferred Language: German Communication Ability: Effective Peoplesoft Hr Developer Required: No Beliefs That Will Affect Care: None marital status: Current Living Situation: Spouse Current Living Situation Comment: [facility] current occupational status: employed 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 Former Feels Safe at Home: Yes Assistive Devices: CPAP Review of Systems Review of Systems: Detailed review of system was unremarkable except mentioned in HPI. Physical Exam Constitutional: WD/WN, vitals as above well developed and well nourished; no acute distress Eyes: PERRL, conjunctivae normal, anicteric sclerae ENMT: external ear and nose normal, oropharynx normal Ears: no hearing impairment Neck: trachea midline Respiratory: normal respiratory effort, lungs clear to auscultation no cough Auscultation: no crackles, no rales and no wheezes Cardiovascular: RRR, no murmur, no edema Gastrointestinal (Abdomen): normal bowel sounds, soft, nontender, no hepatosplenomegaly Percussion/Palpation: abdomen nontender, no guarding and abdomen not rigid Musculoskeletal: Extremities: extremities normal to inspection Gait: normal gait Skin: no rashes, warm and dry Neurologic: moves all extremities and awake Psychiatric: A+Ox3, euthymic affect Results & Data ([facility]) Vital Signs (Past 12 Hours) Vital Signs Temp Pulse Resp BP Pulse Ox 08/13/21 04:00 37 C 78 20 160/48 H 94 08/13/21 00:00 70 138/60 94 08/12/21 22:41 69 18 145/105 H 95 PG Care Time/CCT Total # of Minutes Spent Total Time Spent with Patient: Total time spent is greater than 50% in coordination of care (as documented) at patient's floor/unit and/or counseling patient: Coding Level of Care Code 71541 Initial Inpt Care Lvl 3 Diagnoses Need for acute hemodialysis Z99.2 Cellulitis of left lower extremity L03.116 Hypervolemia E87.70 Hypervolemia type: unspecified Hypertension I10 (1) Hypervolemia Hypervolemia type: unspecified Qualified Code(s): E87.70 - Fluid overload, unspecified
[2021-08-13] MEDS ORDERED: fentaNYL citrate 100 MCG/2 ML VIAL ONE ×2 (10:51→11:23)
[2021-08-13] MEDS ORDERED: MIDAZOLAM HCL 1 MG/ML 2ML VIAL ONE ×2 (10:51→11:22)
[2021-08-13] MEDS ORDERED: HEPARIN SOD (PORCINE) 5,000 UNITS/ML VIAL IV ONE (10:51)
[2021-08-13] MEDS ORDERED: HEPARIN SOD (PORCINE) 5,000 UNITS/ML VIAL ONE (10:51)
--- NOTE | 2021-08-13 10:53 | Pre Anesthesia Assessment ---
Date of Service August 13, 2021 Pre Sedation Assessment Vital Signs Temp Pulse Pulse Resp BP BP Pulse Ox 08/13/21 04:00 37 C 78 20 160/48 H 94 08/13/21 00:00 70 138/60 94 08/12/21 22:41 69 18 145/105 H 95 08/12/21 16:45 36.0 C L 66 20 164/72 H 96 Cardiovascular RRR, no murmur, no edema Respiratory normal respiratory effort, lungs clear to auscultation Pre-Sedation Airway Assessment Smoking Status: Unknown if ever smoked Hx Sleep Apnea: Yes (wears cpap at night) Short, Thick Neck: No Thyromental Distance: > or= 3.5 Finger Breadths Oral Cavity: + Dental Abnormalities Mallampati Class: I ASA: ASA4 NPO Status Date of Last Intake of Fluids: 08/13/21 Time of Last Intake of Fluids: 00:00 Date of Last Intake of Solid Food: 08/13/21 Time of Last Intake of Solid Foods: 00:00 Procedure Planning Contraindications for Sedation: none Current Medications Reviewed: Yes Notes The planned sedation has been discussed with the patient. Informed Consent was obtained. I have identified the patient, determined the appropriateness of sedation and have assessed the patient immediately prior to the procedure. All medicine(s) and interventions are by my order.
[2021-08-13] MEDS ORDERED: ceFAZolin 3000MG/72.5 ML BAG IV ONE (10:56)
[2021-08-13] MEDS ORDERED: EPOETIN ALFA 20,000 UNITS/ML VIAL IV ONE (11:00)
[2021-08-13] MEDS ORDERED: ARISTA ABSORBABLE HEMOSTAT 3GM TOP ONE (11:30)
[2021-08-13] MEDS ORDERED: LIDOCAINE 1% LOCAL 20 ML VIAL INJ ONE (11:32)
--- NOTE | 2021-08-13 11:38 | Operative Report ---
Post Operative Report Pre & Post Diagnosis Operation Date: 08/13/21 09:10 Pre-Op Diagnosis: End Stage Renal Disease Post-Op Diagnosis: End Stage Renal Disease I identified the patient and participated in the time-out.: Yes Procedure Operation Date: 08/13/21 09:10 Actual Procedures p Insertion of Perm Catheter, Right Internal Jugular Approach, Ultrasound L ocalization of Right Internal Jugular Vein, Fluroscopy for Positioning, Moderate Sedation [id number](Right) - Dimitry Leon MD Surgeon Dimitry Leon MD Micro Paleontologist none Estimated Blood Loss 5 Findings Consistent with Post-Op Diagnosis Specimens none Anesthesia Type RN Sedation Complications none Disposition Accompanied Patient To Recovery: No Disposition: Recovery Room Indications This is a 56-year-old male with worsening kidney function in need of urgent dialysis. PermCath was recommended for her access. I have discussed the risks options and benefits of the procedure with the patient. The patient understands the risks options and benefits and agrees to the procedure. Description of Procedure Patient was taken to the angio suite and placed in the supine position. The right side of the neck and chest wall were prepped and draped in a sterile manner. The patient was identified and a timeout performed. Local anesthesia was then administered to the appropriate areas of the neck and chest wall. Ultrasound was then used to locate the right internal jugular vein. The vein compressed easily, had no filing defects, and was patent. The vein was then punctured under direct ultrasound imaging. A guidewire was then passed centrally under fluoroscopic imaging. A stab wound was then made in the anterior chest wall and a 19 cm permcath was passed from the stab wound on the chest wall to the puncture site on the neck. The puncture site was then dilated till the 14Fr peel away sheath was inserted. The permcath was then inserted through the sheath to a central position in the distal superior vena cava. The peel away sheath was then removed. The catheter was then sutured in place using nylon sutures. The puncture was then closed using a 4-0 Vicryl subcuticular suture. Dermabond was used for a dressing on the puncture site. Both ports aspirated and flushed easily and were then packed with heparin. A sterile dressing was applied to the catheter. The patient left the operation room in satisfactory condition and tolerated the procedure well. All needle and sponge counts were correct at the end of the procedure. I attest to the content of the Intraoperative Record and any orders documented therein. Any exceptions are noted below.
--- NOTE | 2021-08-13 11:46 | Post Anesthesia Assessment ---
Date of Service August 13, 2021 Post Sedation Assessment Vital Signs Temp Pulse Pulse Resp BP BP Pulse Ox 08/13/21 11:40 74 20 145/61 H 94 08/13/21 11:38 72 20 154/62 H 98 08/13/21 11:33 72 20 126/56 L 99 08/13/21 11:28 65 20 148/63 H 100 08/13/21 11:23 71 22 162/75 H 100 08/13/21 11:18 76 22 166/70 H 100 08/13/21 11:12 71 22 175/67 H 100 08/13/21 10:49 36.8 C 72 20 132/57 L 94 08/13/21 04:00 37 C 78 20 160/48 H 94 08/13/21 00:00 70 138/60 94 08/12/21 22:41 69 18 145/105 H 95 08/12/21 16:45 36.0 C L 66 20 164/72 H 96 Recovery Score Activity: Moves 4 extremities Respiration: Deep Breath/Cough Circulation: +/-20% PreAnes Value Consciousness: Fully Awake Oxygen Saturation: > 92% On Room Air Post Anesthesia Score: 10 Discharge Sedation Level of Care: Fast Track Phase II Post Sedation Plan On clinical assessment, the patient appears to have tolerated the sedation without complications. Patient is recovering as anticipated. Patient will continue to be monitored by nursing and may be discharged when sedation discharge criteria are met per below protocol. Upon Completions of procedure up to 15 minutes continue every 5 minute vital signs and the P.A.R. score; then discharge to a Phase I or Fast Track to Phase II per the following guidelines: * Discharge Patient to appropriate Phase II area if PAR is 8 or greater or return to pre- procedure baseline. The post - procedure orders will be as directed. * If PAR score is less than 8 or not return to pre-procedure baseline then patient will follow Phase I monitoring till PAR is reached for Phase II. The Phase I may be done in procedure room or may call to secure a Phase I area. * If naloxone or flumazenil are used for reversal, hold in Phase I for continued monitoring from when last reversal dose was given for a minimum of 60 minutes or longer pending the nurse and/or physician discretion of patient condition before discharge to Phase II. Please call the Sedation Physician to re-evaluate and complete post-note for discharge to Phase II area. Do NOT discharge from procedure sedation or Phase 1 until post- sedation evaluation note is complete by procedure /sedation MD Sedation Discharge Instructions to be given to the patient at discharge to home.
[2021-08-13] MEDS: GABAPENTIN 600 MG TAB PO SCH ×3 (13:34→21:17)
[2021-08-13] MEDS: FERROUS SULFATE 325 MG TAB PO SCH (13:35)
[2021-08-13] MEDS: ASPIRIN 81 MG ECTAB PO SCH ×2 (13:35→21:16)
[2021-08-13] MEDS: MUPIROCIN 2% OINT 22 GM TUBE EXT SCH ×3 (13:35→21:19)
[2021-08-13] MEDS: CEROVITE ADV FORMULA TAB PO SCH (13:35)
[2021-08-13] MEDS: ASCORBIC ACID 500 MG TAB PO SCH ×2 (13:35→21:16)
[2021-08-13] MEDS: metOLazone 5 MG TABLET PO SCH ×2 (13:39→17:51)
--- NOTE | 2021-08-13 13:57 | XRay Report ---
TWO VIEW CHEST CLINICAL HISTORY: Congestive heart failure. FINDINGS: AP upright and lateral chest radiographs are compared to study dated 05/25/2021. A right int ernal jugular central venous catheter is new from previous. The heart is enlarged. There is pulmonary vascular congestion. Scarring/atelectasis is seen at the lung bases. No airspace consolidation or pl eural effusion is identified. There is no pneumothorax. The skeletal structures are osteopenic. The b ai thorax appears intact. IMPRESSION: Cardiomegaly with pulmonary vascular congestion. ACT 112: Negative or not required by law. Electronically signed by: Fernando Carver M.D. 08/13/2021 1:55 PM
[2021-08-13] MEDS: IRON SUCROSE 200 MG in 0.9 % SODIUM CHLORIDE 100 ML IV SCH (14:52)
--- NOTE | 2021-08-13 17:01 | Hospitalist Progress Note ---
Date of Service August 13, 2021 Assessment & Plan (1) CHF (congestive heart failure): Plan: - Refractory and resistant to diuretic management - Nephrology on board and has already planned to initiate ultrafiltration/dialysis. - AV fistula placed on 08/03 but not ready for use - Vascular surgery planning on tunneled permacath to start hemodialysis. - Given 1 dose of IV Lasix and Zaroxolyn in the ED - Symptoms primarily right-sided with edema in his legs, abdomen, sacrum, and even in the face) (2) Stage 4 chronic kidney disease due to diabetes mellitus: Plan: - Although creatinine not terrible, patient with stage IV CKD and volume overload resistant to diuretic therapy - Creatinine actually better than baseline (which is 2.0-2.5) and likely due to current volume overload - Nephrology on board. asset manager has been consulted to help with referral for outpatient dialysis (3) Venous stasis dermatitis: Plan: - Patient currently on IV antibiotic therapy (daptomycin/Zosyn) for cellulitis of the lower extremities. I am not convinced. Suspect more consistent with stasis dermatitis - Patient does not have a fever or an elevated white blood cell count. I have ordered a procalcitonin. Likely will DC antibiotics as does not seem infectious to me (4) Superficial venous thrombosis of arm: Plan: - Right arm and likely from recent IV (placed at the [place] [facility]) - No treatment needed. Staff may utilize K pad if needed (5) Hypertension: Plan: -Continue Cardura, metoprolol as prior to hospitalization (6) WHIT (obstructive sleep apnea): Plan: -Continue CPAP (7) HLD (hyperlipidemia): Plan: -Continue statin therapy and fish oil (8) Diabetes: Plan: -Continue Lantus/log -Follow blood sugars closely and correct with sliding scale Plan: -Plan of care discussed with Dr. Rose. Admission and Anticipated Discharge Date Admission Date: August 12, 2021 Subjective Patient seen on daily rounds today. Still in the ED awaiting a bed. Admitted late last night for uncompensated CHF (more right-sided) refractory to attempts at IV diuresis prior to this hospitalization. Patient is a limited historian but record. Apparently has been residing at [facility] since 07/16 after Achilles tendon rupture with repair. Since that time, he has been having fluid retention and vocalizes a 50 pound weight gain. He has been following at the heart failure clinic and his established tent finisher. Has been receiving IV Lasix along with IM Lasix. It is also reported that he was getting Zaroxolyn. Despite that, he was having increased fluid retention of the legs, abdomen, and face. Patient has been having ongoing fluid retention. Does have underlying renal impairment (baseline creatinine 2-2.5). Had an AV fistula on 08/03 anticipating that he may need dialysis in the future. Seen by tent finisher 08/09 and given right-sided failure despite diuretic therapyhe was sent to the hospital for tunneled permacath to be placed in dialysis/ultrafiltration. Currently, patient denies fevers, chills, chest pain, shortness of breath, orthopnea, PND, cough, abdominal pain, nausea, vomiting, GI/ symptomatology. Biggest complaint is the edema involving his legs, abdomen, sacrum, arms, and face. Patient is currently on daptomycin/Zosyn for cellulitis of the lower extremities. He does not have a fever. His white count is normal. Review of Systems Review of Systems: All systems reviewed and are unremarkable except as noted in HPI and below Denies fevers, chills, headache, nasal congestion, sore throat, cough, chest pain, shortness of breath, palpitations, orthopnea, PND, abdominal pain, nausea, vomiting, diarrhea, constipation, dysuria, hematuria, frequency, back pain, joint pain, easy bruising or bleeding, skin lesions or rashes. Physical Exam Physical Exam: General: Resting comfortably in his hospital bed. [NAD.] HEENT: [Head is AT/NC][buccal mucosa is moist and pink]. Periorbital edema that is impressive Neck: + JVD Cardiac:[RRR] but very distant Lungs: Speaking full sentences on room air. Diminished no wheezes, rales or rhonchi Abdomen: Distended/edematous Extremities: 3+ pitting edema the bilateral lower extremities. Vascular changes of the bilateral lower extremities noted Neuro:[A&O X4][cranial nerves II through XII are grossly intact][no focal neuro deficits] Skin:[No obvious skin lesions or rashes] Psych:[appropriate affect][pleasant and cooperative] Results & Data Results & Data ([facility]) Vital Signs (Past 12 Hours) Vital Signs Temp Pulse Pulse Pulse Resp BP BP 08/13/21 15:20 67 144/54 H 08/13/21 15:15 36.6 C 74 08/13/21 15:00 72 168/70 H 08/13/21 14:40 68 168/67 H 08/13/21 14:20 70 146/68 H 08/13/21 13:17 37 C 69 18 159/75 H 08/13/21 12:47 36.8 C 72 18 173/70 H 08/13/21 12:32 36.9 C 77 18 141/69 H 08/13/21 12:17 36.8 C 66 18 154/69 H 08/13/21 12:07 154/69 H 08/13/21 11:45 74 20 148/71 H 08/13/21 11:40 74 20 145/61 H 08/13/21 11:38 72 20 154/62 H 08/13/21 11:33 72 20 126/56 L 08/13/21 11:28 65 20 148/63 H 08/13/21 11:23 71 22 162/75 H 08/13/21 11:18 76 22 166/70 H 08/13/21 11:12 71 22 175/67 H 08/13/21 10:49 36.8 C 72 20 132/57 L Pulse Ox 08/13/21 15:20 08/13/21 15:15 08/13/21 15:00 08/13/21 14:40 08/13/21 14:20 08/13/21 13:17 94 08/13/21 12:47 96 08/13/21 12:32 94 08/13/21 12:17 92 08/13/21 12:07 92 08/13/21 11:45 96 08/13/21 11:40 94 08/13/21 11:38 98 08/13/21 11:33 99 08/13/21 11:28 100 08/13/21 11:23 100 08/13/21 11:18 100 08/13/21 11:12 100 08/13/21 10:49 94 Laboratory Results 08/13/21 06:03 08/13/21 06:03 BNP 346 Diagnostic Findings CXR does show mild pulmonary vascular congestion PG Care Time/CCT Total # of Minutes Spent Total Time Spent with Patient: Total time spent is greater than 50% in coordination of care (as documented) at patient's floor/unit and/or counseling patient: Coding [place] [address] Subseq Hosp Care Lvl 2 Patient Type Established History Expanded Problem Focused Exam Expanded Problem Focused Medical Decision Making Moderate Complexity Diagnoses CHF (congestive heart failure) I50.33 Heart failure chronicity: acute on chronic Heart failure type: diastolic Stage 4 chronic kidney disease due to diabetes mellitus E11.22; N18.4 Venous stasis dermatitis I87.2 Superficial venous thrombosis of arm I82.611 Laterality: right Hypertension I10 WHIT (obstructive sleep apnea) G47.33 HLD (hyperlipidemia) E78.5 Diabetes E11.621; L97.509; Z79.4 Diabetes mellitus type: type 2 Diabetes mellitus usp insulin use: with skull grinder use Diabetes mellitus complication status: with skin complications Diabetes mellitus complication detail: with foot ulcer (1) CHF (congestive heart failure) Heart failure chronicity: acute on chronic Heart failure type: diastolic Qualified Code(s): I50.33 - Acute on chronic diastolic (congestive) heart failure (2) Superficial venous thrombosis of arm Laterality: right Qualified Code(s): I82.611 - Acute embolism and thrombosis of superficial veins of right upper extremity (3) Diabetes Diabetes mellitus type: type 2 Diabetes mellitus skull grinder insulin use: with usp use Diabetes mellitus complication status: with skin complications Diabetes mellitus complication detail: with foot ulcer Qualified Code(s): E11.621 - Type 2 diabetes mellitus with foot ulcer; L97.509 - Non-pressure chronic ulcer of other part of unspecified foot with unspecified severity; Z79.4 - penitentiary (current) use of insulin
[2021-08-13] MEDS: oxyCODONE HCL IR 5 MG TAB (IMMEDIATE RELEASE) PO PRN ×2 (17:05→23:14)
[2021-08-13] MEDS ORDERED: INSULIN GLARGINE SOLOSTAR 100 UNITS/ML 3 ML PEN SQ SCH (21:00)
[2021-08-13] MEDS: CHOLECALCIFEROL 1,000 UNITS 25 MCG TAB PO SCH (21:16)
[2021-08-13] MEDS: DOXAZosin MESYLATE 4 MG TAB PO SCH (21:16)
[2021-08-13] MEDS: ATORVASTATIN 40 MG TAB PO SCH (21:16)
[2021-08-13] MEDS: CYANOCOBALAMIN 500 MCG TABLET (VITAMIN B-12) PO SCH (21:16)
[2021-08-13] MEDS: OMEGA-3 (PURIFIED FISH OIL) 1 GM CAP PO SCH (21:17)
[2021-08-13] MEDS: MAGNESIUM OXIDE 400 MG TAB PO SCH (21:17)
[2021-08-13] MEDS: METOPROLOL SUCC 50MG EXT REL TAB PO SCH (21:17)
[2021-08-13] MEDS: PANTOprazole 40 MG TAB PO SCH (21:19)
[2021-08-13] MEDS: MELATONIN 3 MG TAB PO SCH (21:19)
[2021-08-13] MEDS ORDERED: PHARMACY GLYCEMIC MGMT CONSULT PRN (21:43)
[2021-08-13] MEDS ORDERED: INSULIN ASPART 100 UNITS/ML 3 ML PEN SC ONE (22:30)
[2021-08-13] MEDS ORDERED: INSULIN GLARGINE SOLOSTAR 100 UNITS/ML 3 ML PEN SQ ONE (22:30)
[2021-08-13] MEDS ORDERED: INSULIN HUMAN REGULAR PER UNIT 10 UNITS in SYRINGE 9.9 ML IV ONE (22:30)
[2021-08-14] MEDS ORDERED: INSULIN ASPART 100 UNITS/ML 3 ML PEN SC SCH ×2 (02:00)
[2021-08-14] MEDS: DAPTOmycin 375 MG in SYRINGE 0 ML IV SCH (02:19)
[2021-08-14] MEDS: oxyCODONE HCL IR 5 MG TAB (IMMEDIATE RELEASE) PO PRN ×2 (08:03→19:19)
[2021-08-14] MEDS: IRON SUCROSE 200 MG in 0.9 % SODIUM CHLORIDE 100 ML IV SCH (08:03)
[2021-08-14] MEDS: INSULIN ASPART 100 UNITS/ML 3 ML PEN SC SCH ×4 (08:07→20:35)
[2021-08-14] MEDS: INSULIN GLARGINE 100 UNIT/ML VIAL SC SCH ×2 (08:08→20:46)
[2021-08-14] MEDS: CEROVITE ADV FORMULA TAB PO SCH (08:09)
[2021-08-14] MEDS: metOLazone 5 MG TABLET PO SCH ×2 (08:09→17:15)
[2021-08-14] MEDS: FERROUS SULFATE 325 MG TAB PO SCH (08:10)
[2021-08-14] MEDS: GABAPENTIN 600 MG TAB PO SCH ×3 (08:10→20:31)
[2021-08-14] MEDS: ASCORBIC ACID 500 MG TAB PO SCH ×2 (08:10→20:30)
[2021-08-14] MEDS: MUPIROCIN 2% OINT 22 GM TUBE EXT SCH ×3 (08:10→20:52)
[2021-08-14] MEDS: ASPIRIN 81 MG ECTAB PO SCH ×2 (08:10→20:30)
[2021-08-14] MEDS: FLUTICASONE PROPIONATE NA SPR 16 GM BTL SCH (08:10)
[2021-08-14 10:00] LABS: Basophils # (auto) 0.03 K/uL (0-0.2); Basophils % (auto) 0.4 %; Eosinophils # (auto) 0.28 K/uL (0-0.5); Eosinophils % (auto) 3.8 %; Hematocrit (blood only) 31.6 % (42-52); Hemoglobin 10.4 g/dL (14.0-18.0); Immature Granulocytes # (auto) 0.06 K/uL (0.00-0.02); Immature Granulocytes % (auto) 0.8 %; Lymphocytes # (auto) 2.32 K/uL (1.2-3.4); Lymphocytes % (auto) 31.8 %; Mean Corpuscular Hemoglobin 30.4 pg (25-34); Mean Corpuscular Hgb Conc 32.9 g/dL (32-36); Mean Corpuscular Volume 92.4 fL (80-100); Mean Platelet Volume 9.5 fL (7.4-10.4); Monocytes # (auto) 0.55 K/uL (0.11-0.59); Monocytes % (auto) 7.5 %; Neutrophils # (auto) 4.05 K/uL (1.4-6.5); Neutrophils % (auto) 55.7 %; Platelet Count 211 K/uL (130-400); RDW Coefficient of Variation 13.6 % (11.5-14.5); RDW Standard Deviation 45.1 fL (36.4-46.3); Red Blood Count 3.42 M/uL (4.7-6.1); White Blood Count 7.29 K/uL (4.8-10.8)
[2021-08-14 10:21] LABS: Albumin Level 3.2 gm/dl (3.4-5.0); BUN Creatinine Ratio 20.7 (10-20); Creatinine Clr Calc Pharmacy 56.6 ml/min; Est GFR (African American) 45.3 ml/min; Est GFR (Non-African American) 39.1 ml/min; Magnesium 2.3 mg/dl (1.8-2.4); Potassium 4.1 mmol/L (3.5-5.1)
[2021-08-14 10:24] LABS: Albumin Globulin Ratio 0.7 (0.9-2); Bilirubin,Total 0.5 mg/dl (0.2-1); Globulin 4.6 gm/dl (2.5-4.0); Total Protein 7.8 gm/dl (6.4-8.2)
--- NOTE | 2021-08-14 11:51 | Pharmacy Report ---
Pharmacy Glycemic Short Note 2 - Date of Service August 14, 2021 - Glycemic Short BSG Results (Last 24 hours): 08/13/21 08/13/21 08/13/21 12:13 17:00 21:22 Glucose POC Glucose 365 H* 284 H 319 H* 08/13/21 08/13/21 08/14/21 23:17 23:19 02:11 Glucose POC Glucose 326 H* 322 H* 217 H 08/14/21 08/14/21 08/14/21 07:15 09:42 11:22 Glucose 163 H POC Glucose 131 H 115 H OUTPATIENT ANTIDIABETIC REGIMEN: * Lantus 50 units HS * Novolog Sliding Scale 8-18 units * u-500 insulin 50 units TID Meals ASSESSMENT: * 56 year old type 2 diabetic on very large doses of insulin at home, admitted for CHF, known to pharmacy glycemic service. * Will begin with basal bolus insulin similar to last admission and titrate to goal blood sugar. PLAN FOR INPATIENT GLYCEMIC CONTROL: * Hold outpatient U-500 insulin * Basal insulin * Lantus 30 units SQ AM, 80 units SQ HS * Bolus insulin * NovoLog per scale ACHS or Q6hrs while NPO * Goal Range: Low 110 mg/dL - High 140 mg/dL * Correction Factor: 10 mg/dL/unit * Nutritional / Prandial insulin per carb ratio of 1 unit per 1.5 grams CHO consumed PLAN FOR DISCHARGE: * to be determined
--- NOTE | 2021-08-14 13:11 | Nephrology Progress Note ---
Date of Service August 14, 2021 Assessment & Plan (1) Need for acute hemodialysis: Plan: Failed diuretic therapy for chronic CHF complicated by advance underlying CKD. Followed by Dr. Alvarez as outpatient. Admitted with diuretic resistant volume overload with right-sided heart failure. TDC placed by Dr. Leon 08/13. 1st HD treatment completed 08/13. Tolerated HD well. Orders for 2nd treatment today entered into the EMR and reviewed with dialysis nurse. Case management to assist in arranging outpatient dialysis at [facility] or [facility] post discharge. AVF not mature for use at this time. Medications appropriately dosed for IHD. (2) Anemia: Plan: Chronic, stable. Epogen 87189 units provided yesterday. Venofer added for ELINA. Will monitor. (3) Hypertension: Plan: BP acceptable. Remains notably hypervolemic. Tolerating current medications well. Admission and Anticipated Discharge Date Admission Date: August 12, 2021 Subjective No acute events overnight. Mr. Swartz tolerated his first outpatient HD treatment yesterday without complications. He feels well this morning and hopes to be discharged home soon. Breathing comfortable. Limited in ability to ambulate due to edema and right ankle injury. Review of Systems Review of Systems: All systems reviewed & are unremarkable except as noted in HPI & below Physical Exam Constitutional: well developed and + morbidly obese; no acute distress Eyes: no scleral abnormality and no corneal abnormality ENMT: Mouth: no oral mucosal abnormality and oral mucous membranes not dry Neck: normal visual inspection and trachea midline RIJ TDC Respiratory: normal respiratory effort Auscultation: + rales Cardiovascular: Rate/Rhythm: regular rate Heart Sounds: normal S1 and normal S2 Extremities: + edema and + AV fistula Musculoskeletal: Extremities: no cyanosis and no clubbing Skin: normal turgor; no lesions Neurologic: Motor/Sensory: no tremor and no asterixis Psychiatric: Orientation: alert and oriented x 3 Results & Data ([facility]) Vital Signs (Past 12 Hours) Vital Signs Temp Pulse Resp BP Pulse Ox Pulse Ox 08/14/21 07:41 36.9 C 61 18 122/47 L 96 08/14/21 04:24 37.3 C 58 L 18 137/65 95 08/14/21 01:30 94 Laboratory Results Laboratory Results - last 24 hr 08/13/21 08/13/21 08/13/21 08:55 17:00 17:00 WBC RBC Hgb Hct MCV MCH MCHC RDW Std Deviation RDW Coeff of Diane Plt Count MPV Immature Gran % (Auto) Neut % (Auto) Lymph % (Auto) Mower % (Auto) Eos % (Auto) Baso % (Auto) Neut # (Auto) Lymph # (Auto) Mower # (Auto) Eos # (Auto) Baso # (Auto) Immature Gran # (Auto) Sodium Potassium Chloride Carbon Dioxide Anion Gap BUN Creatinine Est Cr Clr Drug Dosing Est GFR ( Amer) Est GFR (Non-Af Amer) BUN/Creatinine Ratio Glucose POC Glucose 284 H Calcium Magnesium Total Bilirubin AST ALT Alkaline Phosphatase Total Protein Albumin Globulin Albumin/Globulin Ratio Procalcitonin 0.09 Hep B Core IgM Ab NON-REACTIVE 08/13/21 08/13/21 08/13/21 21:22 23:17 23:19 WBC RBC Hgb Hct MCV MCH MCHC RDW Std Deviation RDW Coeff of Diane Plt Count MPV Immature Gran % (Auto) Neut % (Auto) Lymph % (Auto) Mower % (Auto) Eos % (Auto) Baso % (Auto) Neut # (Auto) Lymph # (Auto) Mower # (Auto) Eos # (Auto) Baso # (Auto) Immature Gran # (Auto) Sodium Potassium Chloride Carbon Dioxide Anion Gap BUN Creatinine Est Cr Clr Drug Dosing Est GFR ( Amer) Est GFR (Non-Af Amer) BUN/Creatinine Ratio Glucose POC Glucose 319 H* 326 H* 322 H* Calcium Magnesium Total Bilirubin AST ALT Alkaline Phosphatase Total Protein Albumin Globulin Albumin/Globulin Ratio Procalcitonin Hep B Core IgM Ab 08/14/21 08/14/21 08/14/21 02:11 07:15 09:42 WBC 7.29 RBC 3.42 L Hgb 10.4 L Hct 31.6 L MCV 92.4 MCH 30.4 MCHC 32.9 RDW Std Deviation 45.1 RDW Coeff of Diane 13.6 Plt Count 211 MPV 9.5 Immature Gran % (Auto) 0.8 Neut % (Auto) 55.7 Lymph % (Auto) 31.8 Mower % (Auto) 7.5 Eos % (Auto) 3.8 Baso % (Auto) 0.4 Neut # (Auto) 4.05 Lymph # (Auto) 2.32 Mower # (Auto) 0.55 Eos # (Auto) 0.28 Baso # (Auto) 0.03 Immature Gran # (Auto) 0.06 H Sodium Potassium Chloride Carbon Dioxide Anion Gap BUN Creatinine Est Cr Clr Drug Dosing Est GFR ( Amer) Est GFR (Non-Af Amer) BUN/Creatinine Ratio Glucose POC Glucose 217 H 131 H Calcium Magnesium Total Bilirubin AST ALT Alkaline Phosphatase Total Protein Albumin Globulin Albumin/Globulin Ratio Procalcitonin Hep B Core IgM Ab 08/14/21 08/14/21 09:42 11:22 WBC RBC Hgb Hct MCV MCH MCHC RDW Std Deviation RDW Coeff of Diane Plt Count MPV Immature Gran % (Auto) Neut % (Auto) Lymph % (Auto) Mower % (Auto) Eos % (Auto) Baso % (Auto) Neut # (Auto) Lymph # (Auto) Mower # (Auto) Eos # (Auto) Baso # (Auto) Immature Gran # (Auto) Sodium 136 Potassium 4.1 Chloride 101 Carbon Dioxide 31 Anion Gap 4.0 BUN 39 H Creatinine 1.89 H Est Cr Clr Drug Dosing 56.6 Est GFR ( Amer) 45.3 Est GFR (Non-Af Amer) 39.1 BUN/Creatinine Ratio 20.7 H Glucose 163 H POC Glucose 115 H Calcium 9.0 Magnesium 2.3 Total Bilirubin 0.5 AST 16 ALT 18 Alkaline Phosphatase 93 Total Protein 7.8 Albumin 3.2 L Globulin 4.6 H Albumin/Globulin Ratio 0.7 L Procalcitonin Hep B Core IgM Ab PG Care Time/CCT Total # of Minutes Spent Total Time Spent with Patient: Total time spent is greater than 50% in coordination of care (as documented) at patient's floor/unit and/or counseling patient: Coding Level of Care Code 45928 Subseq Hosp Care Lvl 3 Diagnoses Need for acute hemodialysis Z99.2 Hypertension I10 Anemia D64.9
--- NOTE | 2021-08-14 14:13 | Hospitalist Progress Note ---
Date of Service August 14, 2021 Assessment & Plan (1) CHF (congestive heart failure): Plan: - Refractory and resistant to diuretic management - Symptoms mostly right right sided (with edema of the legs/scrotum/abd/and even the face) - AV fistula placed on 08/03 but not ready for use - Vascular surgery Placed tunneled permcath on 08/13 - Nephrology on board. Patient is s/p HD on 08/13/21 to have additional HD today - Was given Epogen 20,000 units along with IV Venofer with hemodialysis yesterday. - Seems to be responding favorably to treatment. I's and O's documented do not seem accurate. I do not believe it is accounting for the fluid achieved yesterday during hemodialysis. Patient's weight is down 11 pounds but still approximately 30+ pounds over her dry weight - Given 1 dose of IV Lasix in the ED. On zaroxolyn-- which will be held when approaching euvolemic state with HD - Appreciate recommendations as outlined by nephrology (2) Stage 4 chronic kidney disease due to diabetes mellitus: Plan: - Although creatinine not terrible, patient with stage IV CKD and volume overload resistant to diuretic therapy - Creatinine actually better than baseline (which is 2.0-2.5) and likely due to current volume overload - Nephrology on board -appreciate recommendations. - systems development manager has been consulted to help with referral for outpatient dialysis. Apparently patient from [facility] who may not have an agreement with [facility] dialysis. Patient may need transfer to a different facility. This is uncertain at this point but case management working on (3) Venous stasis dermatitis: Plan: - Patient initially placed on antibiotic therapy upfront prep possible cellulitis. He was afebrile with a normal white blood cell count. Procalcitonin negative. Appears more consistent with stasis dermatitis. Antibiotic therapy has been stopped. (4) Superficial venous thrombosis of arm: Plan: - Right arm and likely from recent IV (placed at the assisted) - No treatment needed. Staff may utilize K pad if needed (5) Hypertension: Plan: -Continue Cardura, metoprolol as prior to hospitalization -Tolerating hemodialysis. No hypotension. (6) WHIT (obstructive sleep apnea): Plan: -Continue CPAP (7) HLD (hyperlipidemia): Plan: -Continue statin therapy and fish oil (8) Diabetes: Plan: -Continue Lantus/log -Follow blood sugars closely and correct with sliding scale Plan: -Plan of care discussed with Dr. Rose. Admission and Anticipated Discharge Date Admission Date: August 12, 2021 Subjective Patient seen on daily rounds today. Vocalizes no significant complaints or concerns. Overall, reports fluid is significantly better. "Can actually see the bones in his hands". Did have a tunneled PermCath placed yesterday by vascular I&O's unlikely accurate. Dad his first dialysis session yesterday for 1.5L. Down 11 lbs. In addition, he received Epogen 20,000 units along with IV Venofer. Plan is for repeat session of dialysis today. Patient from [facility]. Case mgmt on board to help with facilitation of OP dialysis to transition back to SNF Review of Systems Review of Systems: All systems reviewed and are unremarkable except as noted in HPI and below Denies fevers, chills, headache, nasal congestion, sore throat, cough, chest pain, shortness of breath, palpitations, orthopnea, PND, abdominal pain, nausea, vomiting, diarrhea, constipation, dysuria, hematuria, frequency, back pain, joint pain or swelling, easy bruising or bleeding, skin lesions or rashes. Physical Exam Physical Exam: General: Resting comfortably in his hospital bed. NAD. HEENT: Head is AT/NC periorbital edema has nearly resolved Neck: Difficult to assess JVD due to dressing in place from recent procedure Cardiac: RRR but distant due to habitus Lungs: CTA without W/R/R Abdomen: Normoactive X4. Difficult to assess due to habitus. Still have some mild ascites Extremities: Overall improving edema but still 2+ pitting tracking proximally to the sacrum. Stasis dermatitis noted to the left leg. Right leg is in a postsurgical splint Neuro: A&O X4 cranial nerves II through XII are grossly intact no focal neuro deficits Skin: Left leg with vascular changes noted Psych: Appropriate affect pleasant and cooperative Results & Data Results & Data ([facility]) Vital Signs (Past 12 Hours) Vital Signs Temp Pulse Pulse Resp BP BP Pulse Ox 08/14/21 13:40 65 137/80 08/14/21 13:20 66 186/100 H 08/14/21 13:16 37.0 C 64 18 145/70 H 96 08/14/21 13:00 64 174/79 H 08/14/21 12:58 36.9 C 65 08/14/21 07:41 36.9 C 61 18 122/47 L 96 08/14/21 04:24 37.3 C 58 L 18 137/65 95 PG Care Time/CCT Total # of Minutes Spent Total Time Spent with Patient: Total time spent is greater than 50% in coordination of care (as documented) at patient's floor/unit and/or counseling patient: Coding [place] [address] Subseq Hosp Care Lvl 3 Patient Type Established History Detailed Exam Detailed Medical Decision Making High Complexity Diagnoses CHF (congestive heart failure) I50.33 Heart failure type: diastolic Heart failure chronicity: acute on chronic Stage 4 chronic kidney disease due to diabetes mellitus E11.22; N18.4 Venous stasis dermatitis I87.2 Superficial venous thrombosis of arm I82.611 Laterality: right Hypertension I10 WHIT (obstructive sleep apnea) G47.33 HLD (hyperlipidemia) E78.5 Diabetes E11.621; L97.509; Z79.4 Diabetes mellitus type: type 2 Diabetes mellitus ferry terminal agent insulin use: with retirement use Diabetes mellitus complication status: with skin complications Diabetes mellitus complication detail: with foot ulcer (1) CHF (congestive heart failure) Heart failure type: diastolic Heart failure chronicity: acute on chronic Q ualified Code(s): I50.33 - Acute on chronic diastolic (congestive) heart failure (2) Superficial venous thrombosis of arm Laterality: right Qualified Code(s): I82.611 - Acute embolism and thrombosis of superficial veins of right upper extremity (3) Diabetes Diabetes mellitus type: type 2 Diabetes mellitus ferry terminal agent insulin use: with ferry terminal agent use Diabetes mellitus complication status: with skin complications Diabetes mellitus complication detail: with foot ulcer Qualified Code(s): E11.621 - Type 2 diabetes mellitus with foot ulcer; L97.509 - Non-pressure chronic ulcer of other part of unspecified foot with unspecified severity; 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
[2021-08-14] MEDS: CHOLECALCIFEROL 1,000 UNITS 25 MCG TAB PO SCH (20:31)
[2021-08-14] MEDS: MAGNESIUM OXIDE 400 MG TAB PO SCH (20:32)
[2021-08-14] MEDS: ATORVASTATIN 40 MG TAB PO SCH (20:32)
[2021-08-14] MEDS: OMEGA-3 (PURIFIED FISH OIL) 1 GM CAP PO SCH (20:32)
[2021-08-14] MEDS: METOPROLOL SUCC 50MG EXT REL TAB PO SCH (20:33)
[2021-08-14] MEDS: CYANOCOBALAMIN 500 MCG TABLET (VITAMIN B-12) PO SCH (20:33)
[2021-08-14] MEDS: PANTOprazole 40 MG TAB PO SCH (20:34)
[2021-08-14] MEDS: DOXAZosin MESYLATE 4 MG TAB PO SCH (20:34)
[2021-08-14] MEDS: MELATONIN 3 MG TAB PO SCH (23:09)
[2021-08-15] MEDS: oxyCODONE HCL IR 5 MG TAB (IMMEDIATE RELEASE) PO PRN ×5 (00:32→22:51)
[2021-08-15] MEDS: IRON SUCROSE 200 MG in 0.9 % SODIUM CHLORIDE 100 ML IV SCH (07:58)
[2021-08-15] MEDS: ASPIRIN 81 MG ECTAB PO SCH (07:59)
[2021-08-15] MEDS: FERROUS SULFATE 325 MG TAB PO SCH (07:59)
[2021-08-15] MEDS: GABAPENTIN 600 MG TAB PO SCH ×3 (07:59→21:14)
[2021-08-15] MEDS: metOLazone 5 MG TABLET PO SCH ×2 (07:59→17:57)
[2021-08-15] MEDS: ASCORBIC ACID 500 MG TAB PO SCH ×2 (07:59→21:12)
[2021-08-15] MEDS: CEROVITE ADV FORMULA TAB PO SCH (08:00)
[2021-08-15] MEDS: FLUTICASONE PROPIONATE NA SPR 16 GM BTL SCH (08:01)
[2021-08-15] MEDS: INSULIN GLARGINE 100 UNIT/ML VIAL SC SCH ×2 (08:01→21:17)
[2021-08-15] MEDS: MUPIROCIN 2% OINT 22 GM TUBE EXT SCH ×3 (08:02→21:16)
[2021-08-15] MEDS: INSULIN ASPART 100 UNITS/ML 3 ML PEN SC SCH ×4 (08:03→21:16)
[2021-08-15 10:18] LABS: Albumin Level 2.8 gm/dl (3.4-5.0); BUN Creatinine Ratio 18.9 (10-20); Calcium 8.8 mg/dl (8.5-10.1); Creatinine Clr Calc Pharmacy 57.1 ml/min; Est GFR (African American) 45.9 ml/min; Est GFR (Non-African American) 39.6 ml/min; Magnesium 2.4 mg/dl (1.8-2.4); Potassium 3.9 mmol/L (3.5-5.1)
[2021-08-15 10:21] LABS: Albumin Globulin Ratio 0.7 (0.9-2); Bilirubin,Total 0.5 mg/dl (0.2-1); Globulin 4.2 gm/dl (2.5-4.0)
--- NOTE | 2021-08-15 11:05 | Nephrology Progress Note ---
Date of Service August 15, 2021 Assessment & Plan (1) Need for acute hemodialysis: Plan: Admitted with diuretic resistant volume overload with right-sided heart failure. Referred to the hospital by Dr. Alvarez re: failed diuretic therapy for chronic CHF complicated by advance underlying CKD. Reid has tolerated the initiation of HD well. TDC placed by Dr. Leon 08/13. 1st HD treatment completed 08/13. No dialysis planned for today. Continue combination diuretic therapy. Bumex 2 mg twice daily restarted via IV to encourage UOP while inpatient. Remains on metolazone twice daily. Furosemide may be adjusted as needed. Aldactone 50 mg PO provided today. Case management to assist in arranging outpatient dialysis at [facility] or [facility] post discharge. AVF not mature for use at this time. Medications appropriately dosed for IHD. Low sodium diet and 1.2 L daily fluid restriction. Document I/O's. (2) Anemia: Plan: Chronic, stable. Epogen 73166 units provided 08/13. Venofer being provided ELINA. (3) Hypertension: Plan: Fluctuating. Remains notably hypervolemic. Tolerating current medications well. Admission and Anticipated Discharge Date Admission Date: August 12, 2021 Subjective No acute events overnight. Tolerated HD yesterday without complications. Breathing comfortably. Reported some frustration that he hasn't seen a notable change in weight or edema since yesterday. Review of Systems Review of Systems: All systems reviewed & are unremarkable except as noted in HPI & below Cardiovascular: + edema Physical Exam Constitutional: well developed and + morbidly obese; no acute distress Eyes: no scleral abnormality and no corneal abnormality ENMT: Mouth: no oral mucosal abnormality and oral mucous membranes not dry Neck: normal visual inspection and trachea midline Respiratory: normal respiratory effort Auscultation: + rales Cardiovascular: Rate/Rhythm: regular rate Heart Sounds: normal S1 and normal S2 Extremities: + edema and + AV fistula Musculoskeletal: Extremities: no cyanosis and no clubbing Skin: normal turgor; no lesions Neurologic: Motor/Sensory: no tremor and no asterixis Psychiatric: Orientation: alert and oriented x 3 Results & Data ([facility]) Vital Signs (Past 12 Hours) Vital Signs Temp Pulse Pulse Resp BP Pulse Ox Pulse Ox 08/15/21 08:07 37.2 C 64 18 182/75 H 92 08/15/21 04:09 37.2 C 59 L 18 141/50 H 94 08/15/21 01:30 66 08/15/21 01:00 94 08/14/21 23:19 37.0 C 66 18 147/69 H 97 Laboratory Results Laboratory Results - last 24 hr 08/14/21 08/14/21 08/14/21 11:22 16:32 20:26 WBC RBC Hgb Hct MCV MCH MCHC Plt Count Sodium Potassium Chloride Carbon Dioxide Anion Gap BUN Creatinine Est Cr Clr Drug Dosing Est GFR ( Amer) Est GFR (Non-Af Amer) BUN/Creatinine Ratio Glucose POC Glucose 115 H 85 122 H Calcium Magnesium Total Bilirubin AST ALT Alkaline Phosphatase Total Protein Albumin Globulin Albumin/Globulin Ratio 08/15/21 08/15/21 08/15/21 07:26 09:44 09:44 WBC Pending RBC Pending Hgb Pending Hct Pending MCV Pending MCH Pending MCHC Pending Plt Count Pending Sodium 135 L Potassium 3.9 Chloride 99 Carbon Dioxide 27 Anion Gap 9.0 BUN 35 H Creatinine 1.87 H Est Cr Clr Drug Dosing 57.1 Est GFR ( Amer) 45.9 Est GFR (Non-Af Amer) 39.6 BUN/Creatinine Ratio 18.9 Glucose 180 H POC Glucose 213 H Calcium 8.8 Magnesium 2.4 Total Bilirubin 0.5 AST 19 ALT 19 Alkaline Phosphatase 88 Total Protein 7.0 Albumin 2.8 L Globulin 4.2 H Albumin/Globulin Ratio 0.7 L PG Care Time/CCT Total # of Minutes Spent Total Time Spent with Patient: Total time spent is greater than 50% in coordination of care (as documented) at patient's floor/unit and/or counseling patient: Coding Level of Care Code 02092 Subseq Hosp Care Lvl 3 Diagnoses Need for acute hemodialysis Z99.2 Anemia D64.9 Hypertension I10
[2021-08-15 11:12] LABS: Basophils # (auto) 0.05 K/uL (0-0.2); Basophils % (auto) 0.5 %; Eosinophils # (auto) 0.48 K/uL (0-0.5); Eosinophils % (auto) 4.9 %; Hematocrit (blood only) 27.6 % (42-52); Hemoglobin 8.9 g/dL (14.0-18.0); Lymphocytes # (auto) 2.65 K/uL (1.2-3.4); Mean Corpuscular Hemoglobin 29.8 pg (25-34); Mean Corpuscular Hgb Conc 32.2 g/dL (32-36); Mean Corpuscular Volume 92.3 fL (80-100); Mean Platelet Volume 9.8 fL (7.4-10.4); Monocytes # (auto) 0.72 K/uL (0.11-0.59); Monocytes % (auto) 7.3 %; Neutrophils # (auto) 5.83 K/uL (1.4-6.5); Neutrophils % (auto) 59.3 %; Platelet Count 206 K/uL (130-400); Platelet Estimate Normal (Normal); RDW Coefficient of Variation 13.9 % (11.5-14.5); RDW Standard Deviation 46.2 fL (36.4-46.3); Red Blood Count 2.99 M/uL (4.7-6.1); White Blood Count 9.83 K/uL (4.8-10.8)
[2021-08-15] MEDS: BUMETANIDE 2 MG in SYRINGE 0 ML IV SCH ×2 (11:33→17:56)
[2021-08-15] MEDS: SPIRONOLACTONE 25 MG TAB PO SCH (12:09)
--- NOTE | 2021-08-15 16:49 | Hospitalist Progress Note ---
Date of Service August 15, 2021 Assessment & Plan (1) CHF (congestive heart failure): Plan: - Refractory and resistant to diuretic management - Symptoms mostly right right sided (with edema of the legs/scrotum/abd/and even the face) - AV fistula placed on 08/03 but not mature (which I can not feel vibration today. Will obtain stat doppler to r/o thrombosis and if noted, consult Vascular tomorrow) - Vascular surgery Placed tunneled permcath on 08/13 - Nephrology on board. Patient is s/p HD on 08/13/21 and 08/14. Nepro managing hypervolumic state - Case was D/W Nephro: add Bumex back, keep zaroxolyn and add aldactone - Epogen 20,000 units and IV Venofer per nephrology - Seems to be responding favorably to treatment. I's and O's documented do not seem accurate--> weight down 18 lbs - dispo likely complicated-- see below (2) Stage 4 chronic kidney disease due to diabetes mellitus: Plan: - Although creatinine not terrible, patient with stage IV CKD and volume overload resistant to diuretic therapy - Creatinine actually better than baseline (which is 2.0-2.5) and likely due to current volume overload - Nephrology on board -appreciate recommendations. - senior manager mmcoe has been consulted to help with referral for outpatient dialysis. Apparently patient from [facility] who may not have an agreement with [facility] dialysis. Patient may need transfer to a different facility. This is uncertain at this point but case management working on (3) Anemia: Plan: - chronic and not far from baseline - suspect anemia of chronic disease from CKD - Epogen and Venofer given - noted to be on ASA BID (likely DVT prophylaxis given recent achilles tendon repair which was 30 days ago). Change to once a day and watch labs closely. (4) Venous stasis dermatitis: Plan: - Patient initially placed on antibiotic therapy upfront prep possible cellulitis. - He was afebrile with a normal white blood cell count. Procalcitonin negative. - Appears more consistent with stasis dermatitis. - Antibiotic therapy has been stopped. - still no fever or leukocytosis (5) Superficial venous thrombosis of arm: Plan: - Right arm and likely from recent IV (placed at the intermediate) - No treatment needed. Staff may utilize K pad if needed (6) Hypertension: Plan: -Continue Cardura, metoprolol as prior to hospitalization -Tolerating hemodialysis. No hypotension. (7) WHIT (obstructive sleep apnea): Plan: -Continue CPAP (8) HLD (hyperlipidemia): Plan: -Continue statin therapy and fish oil (9) Diabetes: Plan: -Continue Lantus/log -Follow blood sugars closely and correct with sliding scale Plan: -Plan of care discussed with Dr. Rose. Admission and Anticipated Discharge Date Admission Date: August 12, 2021 Subjective Patient seen on daily rounds today. Was complaining of right arm pain due to infiltrated IV but otherwise no significant complaints or concerns. Denies fevers, chills, chest pain, shortness of breath, orthopnea, abdominal pain, GI/ symptomatology. Review of Systems Review of Systems: All systems reviewed and are unremarkable except as noted in HPI and below Denies fevers, chills, headache, nasal congestion, sore throat, cough, chest pain, shortness of breath, palpitations, orthopnea, PND, abdominal pain, nausea, vomiting, diarrhea, constipation, dysuria, hematuria, frequency, back pain, joint pain or swelling, easy bruising or bleeding, skin lesions or rashes. Physical Exam Physical Exam: General: Resting comfortably in his hospital bed. NAD. HEENT: Again, periorbital edema has nearly resolved buccal mucosa is moist and pink Neck: No JVD. Negative hepatojugular reflex Cardiac: Very distant heart sounds without obvious murmur Lungs: Speaking full sentences on supplemental oxygen without W/R/R Abdomen: Normoactive X4. Abdomen difficult to examine due to habitus. Mild JVD extremities: Still with 2+ pitting edema of the left lower extremities but overall improved. Right leg with postsurgical splint. Was able to feel vibration of AV fistular yesterday. Unable to palpate this today. Still with edema in the hands b/l but improved Neuro: A&O X4 cranial nerves II through XII are grossly intact no focal neuro deficits Skin: No obvious skin lesions or rashes Psych: Appropriate affect pleasant and cooperative Results & Data Results & Data ([facility]) Vital Signs (Past 12 Hours) Vital Signs Temp Pulse Resp BP Pulse Ox 08/15/21 15:17 37.2 C 66 20 111/58 L 92 08/15/21 11:48 37.0 C 63 20 157/65 H 94 08/15/21 08:07 37.2 C 64 18 182/75 H 92 I's and O's seem inaccurate as patient is down 18 pounds since hospitalized PG Care Time/CCT Total # of Minutes Spent Total Time Spent with Patient: Total time spent is greater than 50% in coordination of care (as documented) at patient's floor/unit and/or counseling patient: C[place] [address] Subseq Hosp Care Lvl 3 Patient Type Established History Comprehensive Exam Comprehensive Medical Decision Making High Complexity Diagnoses CHF (congestive heart failure) I50.33 Heart failure type: diastolic Heart failure chronicity: acute on chronic Stage 4 chronic kidney disease due to diabetes mellitus E11.22; N18.4 Venous stasis dermatitis I87.2 Superficial venous thrombosis of arm I82.611 Laterality: right Hypertension I10 WHIT (obstructive sleep apnea) G47.33 HLD (hyperlipidemia) E78.5 Diabetes E11.621; L97.509; Z79.4 Diabetes mellitus type: type 2 Diabetes mellitus exterminator helper termite insulin use: with usp use Diabetes mellitus complication status: with skin complications Diabetes mellitus complication detail: with foot ulcer Anemia D64.9 (1) CHF (congestive heart failure) Heart failure type: diastolic Heart failure chronicity: acute on chronic Qualified Code(s): I50.33 - Acute on chronic diastolic (congestive) heart failure (2) Superficial venous thrombosis of arm Laterality: right Qualified Code(s): I82.611 - Acute embolism and thrombosis of superficial veins of right upper extremity (3) Diabetes Diabetes mellitus type: type 2 Diabetes mellitus exterminator helper termite insulin use: with exterminator helper termite use Diabetes mellitus complication status: with skin complications Diabetes mellitus complication detail: with foot ulcer Qualified Code(s): E11.621 - Type 2 diabetes mellitus with foot ulcer; L97.509 - Non-pressure chronic ulcer of other part of unspecified foot with unspecified severity; 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
--- NOTE | 2021-08-15 17:24 | Ultrasound Report ---
US hemodialysis access CLINICAL HISTORY: AV fistula- r/o thrombosis. Recent surgery. Left arm pain. COMPARISON STUDY: None. FINDINGS: Duplex imaging of the left upper extremity AV fistula was performed. No thrombus identified . Elevated peak velocities within the anastomosis of the cephalic vein/radial artery of 339 cm/s. Thi s could represent an area of stenosis. IMPRESSION: 1. No thrombus identified within the left upper extremity AV fistula. 2. Elevated peak systolic velocities within within the anastomosis of the cephalic vein/radial artery suggesting possible stenosis. ACT 112: Negative or not required by law. Electronically signed by: Dhiraj Bui M.D. 08/15/2021 5:22 PM
[2021-08-15] MEDS: CHOLECALCIFEROL 1,000 UNITS 25 MCG TAB PO SCH (21:12)
[2021-08-15] MEDS: OMEGA-3 (PURIFIED FISH OIL) 1 GM CAP PO SCH (21:12)
[2021-08-15] MEDS: CYANOCOBALAMIN 500 MCG TABLET (VITAMIN B-12) PO SCH (21:13)
[2021-08-15] MEDS: METOPROLOL SUCC 50MG EXT REL TAB PO SCH (21:13)
[2021-08-15] MEDS: DOXAZosin MESYLATE 4 MG TAB PO SCH (21:14)
[2021-08-15] MEDS: MAGNESIUM OXIDE 400 MG TAB PO SCH (21:14)
[2021-08-15] MEDS: PANTOprazole 40 MG TAB PO SCH (21:14)
[2021-08-15] MEDS: ATORVASTATIN 40 MG TAB PO SCH (21:15)
[2021-08-15] MEDS: MELATONIN 3 MG TAB PO SCH (22:51)
[2021-08-16] MEDS: oxyCODONE HCL IR 5 MG TAB (IMMEDIATE RELEASE) PO PRN ×4 (04:11→19:53)
[2021-08-16 05:58] LABS: Hematocrit (blood only) 27.6 % (42-52); Hemoglobin 8.8 g/dL (14.0-18.0); Mean Corpuscular Hemoglobin 29.7 pg (25-34); Mean Corpuscular Hgb Conc 31.9 g/dL (32-36); Mean Corpuscular Volume 93.2 fL (80-100); Mean Platelet Volume 9.3 fL (7.4-10.4); Platelet Count 211 K/uL (130-400); RDW Standard Deviation 46.9 fL (36.4-46.3); Red Blood Count 2.96 M/uL (4.7-6.1); White Blood Count 9.69 K/uL (4.8-10.8)
[2021-08-16 06:12] LABS: Potassium 3.9 mmol/L (3.5-5.1)
[2021-08-16 06:43] LABS: Albumin Level 2.8 gm/dl (3.4-5.0); Bilirubin,Total 0.6 mg/dl (0.2-1); Calcium 8.9 mg/dl (8.5-10.1); Creatinine Clr Calc Pharmacy 54.2 ml/min; Est GFR (African American) 43.1 ml/min; Est GFR (Non-African American) 37.2 ml/min; Magnesium 2.2 mg/dl (1.8-2.4)
[2021-08-16 06:49] LABS: Albumin Globulin Ratio 0.7 (0.9-2); Globulin 4.1 gm/dl (2.5-4.0); Total Protein 6.9 gm/dl (6.4-8.2)
[2021-08-16] MEDS: INSULIN ASPART 100 UNITS/ML 3 ML PEN SC SCH ×4 (08:15→20:43)
[2021-08-16] MEDS: INSULIN GLARGINE 100 UNIT/ML VIAL SC SCH ×2 (08:16→21:47)
[2021-08-16] MEDS: ASPIRIN 81 MG ECTAB PO SCH (08:17)
[2021-08-16] MEDS: FERROUS SULFATE 325 MG TAB PO SCH (08:17)
[2021-08-16] MEDS: metOLazone 5 MG TABLET PO SCH ×2 (08:18→17:09)
[2021-08-16] MEDS: SPIRONOLACTONE 25 MG TAB PO SCH (08:18)
[2021-08-16] MEDS: ASCORBIC ACID 500 MG TAB PO SCH ×2 (08:18→19:44)
[2021-08-16] MEDS: FLUTICASONE PROPIONATE NA SPR 16 GM BTL SCH (08:19)
[2021-08-16] MEDS: GABAPENTIN 600 MG TAB PO SCH ×3 (08:19→19:44)
[2021-08-16] MEDS: BUMETANIDE 2 MG in SYRINGE 0 ML IV SCH ×2 (08:19→17:28)
[2021-08-16] MEDS: CEROVITE ADV FORMULA TAB PO SCH (08:20)
[2021-08-16] MEDS: IRON SUCROSE 200 MG in 0.9 % SODIUM CHLORIDE 100 ML IV SCH (08:20)
[2021-08-16] MEDS: MUPIROCIN 2% OINT 22 GM TUBE EXT SCH ×3 (08:21→19:47)
--- NOTE | 2021-08-16 10:19 | Nephrology Progress Note ---
Date of Service August 16, 2021 Assessment & Plan (1) Need for acute hemodialysis: Plan: Admitted with diuretic resistant volume overload with right-sided heart failure. Referred to the hospital by Dr. Alvarez re: failed diuretic therapy for chronic CHF complicated by advance underlying CKD. Reid has tolerated the initiation of HD well. TDC placed by Dr. Leon 08/13. 1st HD treatment completed 08/13. 3rd treatment provided today (orders entered into EMR and reviewed with nurse). Treatment split between HD and IUF. Will attempt 4-6 L fluid removal today as tolerated. Continue combination diuretic therapy. Remains on metolazone twice daily. Aldactone added yesterday. Case management working on arrangements for outpatient dialysis. AVF not mature for use at this time. US reviewed this AM. Noted possible stenosis at anastomosis. No intervention. Follow up with vascular can be maintained as outpatient. Medications appropriately dosed for IHD. Low sodium diet and 1.2 L daily fluid restriction. Document I/O's. (2) Anemia: Plan: Chronic, stable. Epogen 03588 units provided 08/13. Venofer being provided ELINA. (3) Hypertension: Plan: Fluctuating. Remains notably hypervolemic. Tolerating current medications well. Admission and Anticipated Discharge Date Admission Date: August 12, 2021 Subjective No acute events overnight. Mr. Swartz was seen and evaluated prior to and during hemodialysis this morning. He is tolerating HD well. Review of Systems Review of Systems: All systems reviewed & are unremarkable except as noted in HPI & below Physical Exam Constitutional: well developed and + morbidly obese; no acute distress Eyes: no scleral abnormality and no corneal abnormality ENMT: Mouth: no oral mucosal abnormality and oral mucous membranes not dry Neck: normal visual inspection and trachea midline Respiratory: normal respiratory effort Auscultation: + rales Cardiovascular: Rate/Rhythm: regular rate Heart Sounds: normal S1 and normal S2 Extremities: + edema and + AV fistula Musculoskeletal: Extremities: no cyanosis and no clubbing Skin: normal turgor; no lesions Neurologic: Motor/Sensory: no tremor and no asterixis Psychiatric: Orientation: alert and oriented x 3 Results & Data ([facility]) Vital Signs (Past 12 Hours) Vital Signs Temp Pulse Pulse Resp BP Pulse Ox 08/16/21 07:34 36.7 C 65 18 153/77 H 94 08/16/21 04:00 37.7 C H 62 18 131/59 L 93 08/16/21 02:44 60 08/15/21 23:05 37.0 C 68 20 146/71 H 94 Laboratory Results Laboratory Results - last 24 hr 08/15/21 08/15/21 08/15/21 09:44 09:44 11:14 WBC 9.83 RBC 2.99 L Hgb 8.9 L Hct 27.6 L MCV 92.3 MCH 29.8 MCHC 32.2 RDW Std Deviation 46.2 RDW Coeff of Diane 13.9 Plt Count 206 MPV 9.8 Immature Gran % (Auto) 1.0 Neut % (Auto) 59.3 Lymph % (Auto) 27.0 [place] % (Auto) 7.3 Eos % (Auto) 4.9 Baso % (Auto) 0.5 Neut # (Auto) 5.83 Lymph # (Auto) 2.65 [place] # (Auto) 0.72 H Eos # (Auto) 0.48 Baso # (Auto) 0.05 Immature Gran # (Auto) 0.10 H Platelet Estimate Normal Sodium 135 L Potassium 3.9 Chloride 99 Carbon Dioxide 27 Anion Gap 9.0 BUN 35 H Creatinine 1.87 H Est Cr Clr Drug Dosing 57.1 Est GFR ( Amer) 45.9 Est GFR (Non-Af Amer) 39.6 BUN/Creatinine Ratio 18.9 Glucose 180 H POC Glucose 140 H Calcium 8.8 Magnesium 2.4 Total Bilirubin 0.5 AST 19 ALT 19 Alkaline Phosphatase 88 Total Protein 7.0 Albumin 2.8 L Globulin 4.2 H Albumin/Globulin Ratio 0.7 L 08/15/21 08/15/21 08/16/21 16:05 21:03 05:41 WBC 9.69 RBC 2.96 L Hgb 8.8 L Hct 27.6 L MCV 93.2 MCH 29.7 MCHC 31.9 L RDW Std Deviation 46.9 H RDW Coeff of Diane 14.0 Plt Count 211 MPV 9.3 Immature Gran % (Auto) Neut % (Auto) Lymph % (Auto) [place] % (Auto) Eos % (Auto) Baso % (Auto) Neut # (Auto) Lymph # (Auto) [place] # (Auto) Eos # (Auto) Baso # (Auto) Immature Gran # (Auto) Platelet Estimate Sodium Potassium Chloride Carbon Dioxide Anion Gap BUN Creatinine Est Cr Clr Drug Dosing Est GFR ( Amer) Est GFR (Non-Af Amer) BUN/Creatinine Ratio Glucose POC Glucose 108 H 165 H Calcium Magnesium Total Bilirubin AST ALT Alkaline Phosphatase Total Protein Albumin Globulin Albumin/Globulin Ratio 08/16/21 08/16/21 05:41 07:02 WBC RBC Hgb Hct MCV MCH MCHC RDW Std Deviation RDW Coeff of Diane Plt Count MPV Immature Gran % (Auto) Neut % (Auto) Lymph % (Auto) [place] % (Auto) Eos % (Auto) Baso % (Auto) Neut # (Auto) Lymph # (Auto) [place] # (Auto) Eos # (Auto) Baso # (Auto) Immature Gran # (Auto) Platelet Estimate Sodium 136 Potassium 3.9 Chloride 99 Carbon Dioxide 28 Anion Gap 9.0 BUN 41 H Creatinine 1.97 H Est Cr Clr Drug Dosing 54.2 Est GFR ( Amer) 43.1 Est GFR (Non-Af Amer) 37.2 BUN/Creatinine Ratio 21.0 H Glucose 110 H POC Glucose 121 H Calcium 8.9 Magnesium 2.2 Total Bilirubin 0.6 AST 17 ALT 15 Alkaline Phosphatase 81 Total Protein 6.9 Albumin 2.8 L Globulin 4.1 H Albumin/Globulin Ratio 0.7 L PG Care Time/CCT Total # of Minutes Spent Total Time Spent with Patient: Total time spent is greater than 50% in coordination of care (as documented) at patient's floor/unit and/or counseling patient: Coding Level of Care Code 28956 Subseq Hosp Care Lvl 3 Diagnoses Need for acute hemodialysis Z99.2 Anemia D64.9 Hypertension I10
[2021-08-16] MEDS: METOPROLOL SUCC 50MG EXT REL TAB PO SCH (19:44)
[2021-08-16] MEDS: OMEGA-3 (PURIFIED FISH OIL) 1 GM CAP PO SCH (19:45)
[2021-08-16] MEDS: DOXAZosin MESYLATE 4 MG TAB PO SCH (19:45)
[2021-08-16] MEDS: CHOLECALCIFEROL 1,000 UNITS 25 MCG TAB PO SCH (19:45)
[2021-08-16] MEDS: MAGNESIUM OXIDE 400 MG TAB PO SCH (19:46)
[2021-08-16] MEDS: CYANOCOBALAMIN 500 MCG TABLET (VITAMIN B-12) PO SCH (19:46)
[2021-08-16] MEDS: PANTOprazole 40 MG TAB PO SCH (19:47)
[2021-08-16] MEDS: MELATONIN 3 MG TAB PO SCH (19:53)
[2021-08-16] MEDS: ATORVASTATIN 40 MG TAB PO SCH (19:55)
--- NOTE | 2021-08-16 22:05 | Hospitalist Progress Note ---
Date of Service August 16, 2021 Assessment & Plan (1) CHF (congestive heart failure): Plan: - Refractory and resistant to diuretic management - Symptoms mostly right right sided (with edema of the legs/scrotum/abd/and even the face) - AV fistula placed on 08/03 but not mature (which I can not feel vibration today. Will obtain stat doppler to r/o thrombosis and if noted, consult Vascular tomorrow) - Vascular surgery Placed tunneled permcath on 08/13 - Nephrology on board. Patient is s/p HD on 08/13/21 and 08/14. Nepro managing hypervolumic state - Case was D/W Nephro: add Bumex back, keep zaroxolyn and add aldactone - Epogen 20,000 units and IV Venofer per nephrology - Seems to be responding favorably to treatment. I's and O's documented do not seem accurate--> weight down 20 lbs - dispo likely complicated-- see below (2) Stage 4 chronic kidney disease due to diabetes mellitus: Plan: - Although creatinine not terrible, patient with stage IV CKD and volume overload resistant to diuretic therapy - Creatinine actually better than baseline (which is 2.0-2.5) and likely due to current volume overload - Nephrology on board -appreciate recommendations. - loss prevention manager has been consulted to help with referral for outpatient dialysis. Apparently patient from [facility] who may not have an agreement with [facility] dialysis. Patient may need transfer to a different facility. This is uncertain at this point but case management working on (3) Anemia: Plan: - chronic and not far from baseline - suspect anemia of chronic disease from CKD - Epogen and Venofer given - noted to be on ASA BID (likely DVT prophylaxis given recent achilles tendon repair which was 30 days ago). Change to once a day and watch labs closely. (4) Venous stasis dermatitis: Plan: - Patient initially placed on antibiotic therapy upfront prep possible cellulitis. - He was afebrile with a normal white blood cell count. Procalcitonin negative. - Appears more consistent with stasis dermatitis. - Antibiotic therapy has been stopped. - still no fever or leukocytosis (5) Superficial venous thrombosis of arm: Plan: - Right arm and likely from recent IV (placed at the long-term) - No treatment needed. Staff may utilize K pad if needed (6) Hypertension: Plan: -Continue Cardura, metoprolol as prior to hospitalization -Tolerating hemodialysis. No hypotension. (7) WHIT (obstructive sleep apnea): Plan: -Continue CPAP (8) HLD (hyperlipidemia): Plan: -Continue statin therapy and fish oil (9) Diabetes: Plan: -Continue Lantus/log -Follow blood sugars closely and correct with sliding scale Plan: -Plan of care discussed with Dr. Rose. Admission and Anticipated Discharge Date Admission Date: August 12, 2021 Subjective Patient reports no new symptoms. Review of Systems Review of Systems: All systems reviewed & are unremarkable except as noted in HPI & below Physical Exam Physical Exam: General: Resting comfortably in his hospital bed. NAD. HEENT: Again, periorbital edema has nearly resolved buccal mucosa is moist and pink Neck: No JVD. Negative hepatojugular reflex Cardiac: Very distant heart sounds without obvious murmur Lungs: Speaking full sentences on supplemental oxygen without W/R/R Abdomen: Normoactive X4. Abdomen difficult to examine due to habitus. Mild JVD extremities: Still with 2+ pitting edema of the left lower extremities but overall improved. Right leg with postsurgical splint. Was able to feel vibration of AV fistular yesterday. Unable to palpate this today. Still with edema in the hands b/l but improved Neuro: A&O X4 cranial nerves II through XII are grossly intact no focal neuro deficits Skin: No obvious skin lesions or rashes Psych: Appropriate affect pleasant and cooperative Results & Data Results & Data ([facility]) Vital Signs (Past 12 Hours) Vital Signs Temp Pulse Pulse Resp BP BP Pulse Ox 08/16/21 19:39 37.6 C H 68 18 131/69 93 08/16/21 15:19 36.9 C 69 18 100/63 92 08/16/21 13:26 36.3 C L 72 14 131/72 08/16/21 13:10 37.3 C 141/71 H 08/16/21 12:40 68 110/60 08/16/21 12:20 66 135/69 08/16/21 12:00 65 122/65 08/16/21 11:40 65 120/60 08/16/21 11:20 64 116/49 L 08/16/21 11:00 64 126/67 08/16/21 10:40 67 110/57 L 08/16/21 10:20 68 112/76 PG Care Time/CCT Total # of Minutes Spent Total Time Spent with Patient: Total time spent is greater than 50% in coordination of care (as documented) at patient's floor/unit and/or counseling patient: Coding Level of Care Code 07647 Subseq Hosp Care Lvl 2 Diagnoses CHF (congestive heart failure) I50.33 Heart failure chronicity: acute on chronic Heart failure type: diastolic Stage 4 chronic kidney disease due to diabetes mellitus E11.22; N18.4 Anemia D64.9 Venous stasis dermatitis I87.2 Superficial venous thrombosis of arm I82.611 Laterality: right Hypertension I10 WHIT (obstructive sleep apnea) G47.33 HLD (hyperlipidemia) E78.5 Diabetes E11.621; L97.509; Z79.4 Diabetes mellitus complication detail: with foot ulcer Diabetes mellitus complication status: with skin complications Diabetes mellitus usp insulin use: with usp use Diabetes mellitus type: type 2 Time Spent (min) 25 (1) Superficial venous thrombosis of arm Laterality: right Qualified Code(s): I82.611 - Acute embolism and thrombosis of superficial veins of right upper extremity (2) Diabetes Diabetes mellitus complication detail: with foot ulcer Diabetes mellitus complication status: with skin complications Diabetes mellitus superintendent terminal insulin use: with superintendent terminal use Diabetes mellitus type: type 2 Qualified Code(s): E11.621 - Type 2 diabetes mellitus with foot ulcer; L97.509 - Non- pressure chronic ulcer of other part of unspecified foot with unspecified severity; Z79.4 - MCC (current) use of insulin (3) CHF (congestive heart failure) Heart failure chronicity: acute on chronic Heart failure type: diastolic Qualified Code(s): I50.33 - Acute on chronic diastolic (congestive) heart failure
[2021-08-17] MEDS: oxyCODONE HCL IR 5 MG TAB (IMMEDIATE RELEASE) PO PRN ×3 (04:30→19:24)
[2021-08-17] MEDS: metOLazone 5 MG TABLET PO SCH ×2 (08:21→17:21)
[2021-08-17] MEDS: ASPIRIN 81 MG ECTAB PO SCH (08:21)
[2021-08-17] MEDS: FERROUS SULFATE 325 MG TAB PO SCH (08:22)
[2021-08-17] MEDS: ASCORBIC ACID 500 MG TAB PO SCH ×2 (08:22→20:49)
[2021-08-17] MEDS: CEROVITE ADV FORMULA TAB PO SCH (08:22)
[2021-08-17] MEDS: SPIRONOLACTONE 25 MG TAB PO SCH (08:23)
[2021-08-17] MEDS: GABAPENTIN 600 MG TAB PO SCH ×3 (08:26→20:48)
[2021-08-17] MEDS: MUPIROCIN 2% OINT 22 GM TUBE EXT SCH ×3 (08:26→21:39)
[2021-08-17] MEDS: INSULIN ASPART 100 UNITS/ML 3 ML PEN SC SCH ×4 (08:27→20:55)
[2021-08-17] MEDS: FLUTICASONE PROPIONATE NA SPR 16 GM BTL SCH (08:27)
[2021-08-17] MEDS: INSULIN GLARGINE 100 UNIT/ML VIAL SC SCH ×2 (08:31→20:52)
[2021-08-17] MEDS: IRON SUCROSE 200 MG in 0.9 % SODIUM CHLORIDE 100 ML IV SCH (08:48)
[2021-08-17] MEDS: BUMETANIDE 2 MG in SYRINGE 0 ML IV SCH ×2 (08:48→17:23)
--- NOTE | 2021-08-17 10:21 | Nephrology Progress Note ---
Date of Service August 17, 2021 Assessment & Plan (1) Need for acute hemodialysis: Plan: TDC placed by Dr. Leon 08/13. 1st HD treatment completed 08/13. 3rd treatment provided today (orders entered into EMR and reviewed with nurse). Treatment split between HD and IUF. Will attempt 4-6 L fluid removal today as tolerated. Continue combination diuretic therapy. Case management working on arrangements for outpatient dialysis. AVF not mature for use at this time. US reviewed yesterday. Medications appropriately dosed for IHD. Low sodium diet and 1.2 L daily fluid restriction. Document I/O's. (2) Anemia: Plan: Chronic, stable. Epogen 10550 units provided 08/13. Venofer being provided ELINA. (3) Hypertension: Plan: Fluctuating. Remains notably hypervolemic. Tolerating current medications well. Admission and Anticipated Discharge Date Admission Date: August 12, 2021 Subjective No acute events overnight. No complaints this AM. Tolerated HD yesterday without complications. Frustrated that he is still in the hospital with unknown discharge date. Review of Systems Review of Systems: All systems reviewed & are unremarkable except as noted in HPI & below Physical Exam Constitutional: well developed and + morbidly obese; no acute distress Eyes: no scleral abnormality and no corneal abnormality ENMT: Mouth: no oral mucosal abnormality and oral mucous membranes not dry Neck: normal visual inspection and trachea midline Respiratory: normal respiratory effort Auscultation: + rales Cardiovascular: Rate/Rhythm: regular rate Heart Sounds: normal S1 and normal S2 Extremities: + edema and + AV fistula Musculoskeletal: Extremities: no cyanosis and no clubbing Skin: normal turgor and + induration (chronic stasis changes of the LE) Neurologic: Motor/Sensory: no tremor and no asterixis Psychiatric: Orientation: alert and oriented x 3 Results & Data ([facility]) Vital Signs (Past 12 Hours) Vital Signs Temp Pulse Pulse Resp BP Pulse Ox 08/17/21 07:45 58 L 08/17/21 07:42 37.1 C 59 L 19 105/50 L 91 08/17/21 03:52 37.0 C 63 20 132/66 96 08/16/21 23:35 37.4 C 64 24 120/67 93 Laboratory Results Laboratory Results - last 24 hr 08/16/21 08/16/21 08/16/21 13:23 16:06 20:37 POC Glucose 124 H 118 H 81 08/17/21 07:00 POC Glucose 141 H PG Care Time/CCT Total # of Minutes Spent Total Time Spent with Patient: Total time spent is greater than 50% in coordination of care (as documented) at patient's floor/unit and/or counseling patient: Coding Level of Care Code 89718 Subseq Hosp Care Lvl 3 Diagnoses Need for acute hemodialysis Z99.2 Anemia D64.9 Hypertension I10
--- NOTE | 2021-08-17 12:13 | Pharmacy Report ---
Pharmacy Glycemic Short Note 2 - Date of Service August 17, 2021 - Glycemic Short BSG Results (Last 24 hours): 08/16/21 08/16/21 08/16/21 13:23 16:06 20:37 POC Glucose 124 H 118 H 81 08/17/21 08/17/21 07:00 11:11 POC Glucose 141 H 120 H OUTPATIENT ANTIDIABETIC REGIMEN: * Lantus 50 units HS * Novolog Sliding Scale 8-18 units * u-500 insulin 50 units TID Meals ASSESSMENT: 08/17 * Patient received total of 198 units of insulin yesterday, of which 100 units were basal * BSGs trending down last evening therefore evening Lantus was reduced from 80 units to 70 units * Fasting BSG 141 mg/dL - reasonable to continue same basal insulin 08/14 * 56 year old type 2 diabetic on very large doses of insulin at home, admitted for CHF, known to pharmacy glycemic service. * Will begin with basal bolus insulin similar to last admission and titrate to goal blood sugar. PLAN FOR INPATIENT GLYCEMIC CONTROL: * Hold outpatient U-500 insulin * Basal insulin * Lantus 30 units SQ AM, 70 units SQ HS * Bolus insulin * NovoLog per scale ACHS or Q6hrs while NPO * Goal Range: Low 110 mg/dL - High 140 mg/dL * Correction Factor: 10 mg/dL/unit * Nutritional / Prandial insulin per carb ratio of 1 unit per 1.5 grams CHO consumed PLAN FOR DISCHARGE: * A1c ~7.7% - goal 7% / reasonable to continue home insulin regimen on discharge as long as no contraindications are present
--- NOTE | 2021-08-17 20:12 | Hospitalist Progress Note ---
Date of Service August 17, 2021 Assessment & Plan (1) CHF (congestive heart failure): Plan: - Refractory and resistant to diuretic management - Symptoms mostly right right sided (with edema of the legs/scrotum/abd/and even the face) - AV fistula placed on 08/03 but not mature (which I can not feel vibration today. Will obtain stat doppler to r/o thrombosis and if noted, consult Vascular tomorrow) - Vascular surgery Placed tunneled permcath on 08/13 - Nephrology on board. Patient is s/p HD on 08/13/21 and 08/14. Nepro managing hypervolumic state - Case was D/W Nephro: add Bumex back, keep zaroxolyn and add aldactone - Epogen 20,000 units and IV Venofer per nephrology - Seems to be responding favorably to treatment. I's and O's documented do not seem accurate--> weight down 20 lbs - dispo likely complicated-- see below (2) Stage 4 chronic kidney disease due to diabetes mellitus: Plan: - Although creatinine not terrible, patient with stage IV CKD and volume overload resistant to diuretic therapy - Creatinine actually better than baseline (which is 2.0-2.5) and likely due to current volume overload - Nephrology on board -appreciate recommendations. - transitional care manager has been consulted to help with referral for outpatient dialysis. [facility]. Patient may need transfer to a different facility. This is uncertain at this point but case management working on - Awaiting for placement. (3) Anemia: Plan: - chronic and not far from baseline - suspect anemia of chronic disease from CKD - Epogen and Venofer given - noted to be on ASA BID (likely DVT prophylaxis given recent achilles tendon repair which was 30 days ago). Change to once a day and watch labs closely. (4) Venous stasis dermatitis: Plan: - Patient initially placed on antibiotic therapy upfront prep possible cellulitis. - He was afebrile with a normal white blood cell count. Procalcitonin negative. - Appears more consistent with stasis dermatitis. - Antibiotic therapy has been stopped. - still no fever or leukocytosis (5) Superficial venous thrombosis of arm: Plan: - Right arm and likely from recent IV (placed at the skilled nursing) - No treatment needed. Staff may utilize K pad if needed (6) Hypertension: Plan: -Continue Cardura, metoprolol as prior to hospitalization -Tolerating hemodialysis. No hypotension. (7) WHIT (obstructive sleep apnea): Plan: -Continue CPAP (8) HLD (hyperlipidemia): Plan: -Continue statin therapy and fish oil (9) Diabetes: Plan: -Continue Lantus/log -Follow blood sugars closely and correct with sliding scale Plan: -Plan of care discussed with Dr. Rose. Admission and Anticipated Discharge Date Admission Date: August 12, 2021 Subjective Patient reports no new symptoms today. Review of Systems Review of Systems: All systems reviewed & are unremarkable except as noted in HPI & below Physical Exam Physical Exam: General: Resting comfortably in his hospital bed. NAD. HEENT: Again, periorbital edema has nearly resolved buccal mucosa is moist and pink Neck: No JVD. Negative hepatojugular reflex Cardiac: Very distant heart sounds without obvious murmur Lungs: Speaking full sentences on supplemental oxygen without W/R/R Abdomen: Normoactive X4. Abdomen difficult to examine due to habitus. Mild JVD extremities: Still with 2+ pitting edema of the left lower extremities but overall improved. Right leg with postsurgical splint. Was able to feel vibration of AV fistular yesterday. Neuro: A&O X4 cranial nerves II through XII are grossly intact no focal neuro deficits Skin: No obvious skin lesions or rashes Psych: Appropriate affect pleasant and cooperative Results & Data Results & Data ([facility]) Vital Signs (Past 12 Hours) Vital Signs Temp Pulse Pulse Pulse Resp BP Pulse Ox 08/17/21 19:49 37.1 C 68 18 134/51 L 92 08/17/21 15:39 60 08/17/21 15:20 37.3 C 65 17 138/75 94 08/17/21 11:13 36.9 C 65 17 132/70 93 PG Care Time/CCT Total # of Minutes Spent Total Time Spent with Patient: Total time spent is greater than 50% in coordination of care (as documented) at patient's floor/unit and/or counseling patient: Coding Level of Care Code 87167 Subseq Hosp Care Lvl 2 Diagnoses CHF (congestive heart failure) I50.33 Heart failure chronicity: acute on chronic Heart failure type: diastolic Stage 4 chronic kidney disease due to diabetes mellitus E11.22; N18.4 Anemia D64.9 Venous stasis dermatitis I87.2 Superficial venous thrombosis of arm I82.611 Laterality: right Hypertension I10 WHIT (obstructive sleep apnea) G47.33 HLD (hyperlipidemia) E78.5 Diabetes E11.621; L97.509; Z79.4 Diabetes mellitus complication detail: with foot ulcer Diabetes mellitus complication status: with skin complications Diabetes mellitus snf insulin use: with rodent exterminator use Diabetes mellitus type: type 2 (1) Superficial venous thrombosis of arm Laterality: right Qualified Code(s): I82.611 - Acute embolism and thrombosis of superficial veins of right upper extremity (2) Diabetes Diabetes mellitus complication detail: with foot ulcer Diabetes mellitus complication status: with skin complications Diabetes mellitus snf insulin use: with rodent exterminator use Diabetes mellitus type: type 2 Qualified Code(s): E11.621 - Type 2 diabetes mellitus with foot ulcer; L97.509 - Non- pressure chronic ulcer of other part of unspecified foot with unspecified severity; Z79.4 - 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 (3) CHF (congestive heart failure) Heart failure chronicity: acute on chronic Heart failure type: diastolic Qualified Code(s): I50.33 - Acute on chronic diastolic (congestive) heart failure
[2021-08-17] MEDS: PANTOprazole 40 MG TAB PO SCH (20:48)
[2021-08-17] MEDS: MAGNESIUM OXIDE 400 MG TAB PO SCH (20:48)
[2021-08-17] MEDS: METOPROLOL SUCC 50MG EXT REL TAB PO SCH (20:48)
[2021-08-17] MEDS: ATORVASTATIN 40 MG TAB PO SCH (20:49)
[2021-08-17] MEDS: CYANOCOBALAMIN 500 MCG TABLET (VITAMIN B-12) PO SCH (20:49)
[2021-08-17] MEDS: DOXAZosin MESYLATE 4 MG TAB PO SCH (20:49)
[2021-08-17] MEDS: OMEGA-3 (PURIFIED FISH OIL) 1 GM CAP PO SCH (20:49)
[2021-08-17] MEDS: CHOLECALCIFEROL 1,000 UNITS 25 MCG TAB PO SCH (20:49)
[2021-08-17] MEDS: MELATONIN 3 MG TAB PO SCH (20:57)
[2021-08-18 06:56] LABS: BUN Creatinine Ratio 15.4 (10-20); Calcium 9.1 mg/dl (8.5-10.1); Est GFR (African American) 21.3 ml/min; Est GFR (Non-African American) 18.4 ml/min; Phosphorus 5.8 mg/dl (2.5-4.9)
[2021-08-18] MEDS: metOLazone 5 MG TABLET PO SCH ×2 (08:03→17:58)
[2021-08-18] MEDS: INSULIN ASPART 100 UNITS/ML 3 ML PEN SC SCH ×4 (08:40→21:57)
[2021-08-18] MEDS: INSULIN GLARGINE 100 UNIT/ML VIAL SC SCH ×2 (08:47→21:56)
[2021-08-18] MEDS: BUMETANIDE 2 MG in SYRINGE 0 ML IV SCH ×2 (08:58→17:58)
[2021-08-18] MEDS: ASCORBIC ACID 500 MG TAB PO SCH ×2 (08:58→20:18)
[2021-08-18] MEDS: ASPIRIN 81 MG ECTAB PO SCH (08:58)
[2021-08-18] MEDS: FERROUS SULFATE 325 MG TAB PO SCH (08:59)
[2021-08-18] MEDS: FLUTICASONE PROPIONATE NA SPR 16 GM BTL SCH (08:59)
[2021-08-18] MEDS: CEROVITE ADV FORMULA TAB PO SCH (09:00)
[2021-08-18] MEDS: GABAPENTIN 600 MG TAB PO SCH ×3 (09:00→20:19)
[2021-08-18] MEDS: SPIRONOLACTONE 25 MG TAB PO SCH (09:02)
[2021-08-18] MEDS: MUPIROCIN 2% OINT 22 GM TUBE EXT SCH ×3 (09:20→20:25)
--- NOTE | 2021-08-18 09:48 | Nephrology Progress Note ---
Date of Service August 18, 2021 Assessment & Plan (1) Need for acute hemodialysis: Plan: TDC placed by Dr. Leon 08/13. 1st HD treatment completed 08/13. Orders for HD today entered into EMR and reviewed with HD nurse. Continue combination diuretic therapy. Case management working on arrangements for outpatient dialysis. AVF not mature for use at this time. US reviewed yesterday. Medications appropriately dosed for IHD. Low sodium diet and 1.2 L daily fluid restriction. Document I/O's. (2) Anemia: Plan: Chronic, stable. Epogen 23877 units provided 08/13. Venofer being provided ELINA. (3) Hypertension: Plan: Fluctuating. Remains notably hypervolemic. Tolerating current medications well. Admission and Anticipated Discharge Date Admission Date: August 12, 2021 Subjective No acute events overnight. Reid was seen and evaluated as dialysis was being started today. He is very upset about continued hospitalization. He is upset that he was not able to talk to the yesterday. He does not understand why he hasn't been discharged. Review of Systems Review of Systems: All systems reviewed & are unremarkable except as noted in HPI & below Physical Exam Constitutional: well developed and + morbidly obese; no acute distress Eyes: no scleral abnormality and no corneal abnormality ENMT: Mouth: no oral mucosal abnormality and oral mucous membranes not dry Neck: normal visual inspection and trachea midline Respiratory: normal respiratory effort Auscultation: + rales Cardiovascular: Rate/Rhythm: regular rate Heart Sounds: normal S1 and normal S2 Extremities: + edema and + AV fistula Musculoskeletal: Extremities: no cyanosis and no clubbing Skin: normal turgor and + induration (chronic stasis changes of the LE) Neurologic: Motor/Sensory: no tremor and no asterixis Psychiatric: Orientation: alert and oriented x 3 Results & Data ([facility]) Vital Signs (Past 12 Hours) Vital Signs Temp Pulse Pulse Resp BP Pulse Ox 08/18/21 07:46 37.1 C 61 18 126/67 94 08/18/21 07:45 61 08/18/21 04:48 37.4 C 62 16 126/58 L 94 08/17/21 23:04 37.4 C 66 18 129/63 93 Laboratory Results Laboratory Results - last 24 hr 08/17/21 08/17/21 08/17/21 11:11 16:41 19:46 Sodium Potassium Chloride Carbon Dioxide Anion Gap BUN Creatinine Est Cr Clr Drug Dosing Est GFR ( Amer) Est GFR (Non-Af Amer) BUN/Creatinine Ratio Glucose POC Glucose 120 H 116 H 111 H Calcium Phosphorus Albumin 08/18/21 08/18/21 05:35 07:23 Sodium 131 L Potassium 5.0 D Chloride 96 L Carbon Dioxide 25 Anion Gap 10.0 BUN 54 H Creatinine 3.53 H D Est Cr Clr Drug Dosing 30.0 Est GFR ( Amer) 21.3 Est GFR (Non-Af Amer) 18.4 BUN/Creatinine Ratio 15.4 Glucose 104 H POC Glucose 124 H Calcium 9.1 Phosphorus 5.8 H Albumin 3.0 L PG Care Time/CCT Total # of Minutes Spent Total Time Spent with Patient: Total time spent is greater than 50% in coordination of care (as documented) at patient's floor/unit and/or counseling patient: Coding Level of Care Code 35572 Subseq Hosp Care Lvl 3 Diagnoses Need for acute hemodialysis Z99.2 Anemia D64.9 Hypertension I10
[2021-08-18] MEDS: oxyCODONE HCL IR 5 MG TAB (IMMEDIATE RELEASE) PO PRN (18:44)
[2021-08-18] MEDS: OMEGA-3 (PURIFIED FISH OIL) 1 GM CAP PO SCH (20:19)
[2021-08-18] MEDS: MAGNESIUM OXIDE 400 MG TAB PO SCH (20:19)
[2021-08-18] MEDS: CYANOCOBALAMIN 500 MCG TABLET (VITAMIN B-12) PO SCH (20:20)
[2021-08-18] MEDS: DOXAZosin MESYLATE 4 MG TAB PO SCH (20:20)
[2021-08-18] MEDS: PANTOprazole 40 MG TAB PO SCH (20:21)
[2021-08-18] MEDS: METOPROLOL SUCC 50MG EXT REL TAB PO SCH (20:22)
[2021-08-18] MEDS: ATORVASTATIN 40 MG TAB PO SCH (20:22)
[2021-08-18] MEDS: CHOLECALCIFEROL 1,000 UNITS 25 MCG TAB PO SCH (20:23)
--- NOTE | 2021-08-18 21:02 | Hospitalist Progress Note ---
Date of Service August 18, 2021 Assessment & Plan (1) CHF (congestive heart failure): Plan: - Refractory and resistant to diuretic management - Symptoms mostly right right sided (with edema of the legs/scrotum/abd/and even the face) - AV fistula placed on 08/03 but not mature (which I can not feel vibration today. Will obtain stat doppler to r/o thrombosis and if noted, consult Vascular tomorrow) - Vascular surgery Placed tunneled permcath on 08/13 - Nephrology on board. Patient is s/p HD on 08/13/21 and 08/14. Nepro managing hypervolumic state - Case was D/W Nephro: add Bumex back, keep zaroxolyn and add aldactone - Epogen 20,000 units and IV Venofer per nephrology - Seems to be responding favorably to treatment. I's and O's documented do not seem accurate--> weight down 20 lbs - dispo likely complicated-- see below (2) Stage 4 chronic kidney disease due to diabetes mellitus: Plan: - Although creatinine not terrible, patient with stage IV CKD and volume overload resistant to diuretic therapy - Creatinine actually better than baseline (which is 2.0-2.5) and likely due to current volume overload - Nephrology on board -appreciate recommendations. - manager front office has been consulted to help with referral for outpatient dialysis. Apparently patient from [facility] who may not have an agreement with [facility] dialysis. Patient may need transfer to a different facility. This is uncertain at this point but case management working on - Awaiting for placement. (3) Anemia: Plan: - chronic and not far from baseline - suspect anemia of chronic disease from CKD - Epogen and Venofer given - noted to be on ASA BID (likely DVT prophylaxis given recent achilles tendon repair which was 30 days ago). Change to once a day and watch labs closely. (4) Venous stasis dermatitis: Plan: - Patient initially placed on antibiotic therapy upfront prep possible cellulitis. - He was afebrile with a normal white blood cell count. Procalcitonin negative. - Appears more consistent with stasis dermatitis. - Antibiotic therapy has been stopped. - still no fever or leukocytosis -will recheck levels in AM. will exchange splint tomorrow. (5) Superficial venous thrombosis of arm: Plan: - Right arm and likely from recent IV (placed at the alf) - No treatment needed. Staff may utilize K pad if needed (6) Hypertension: Plan: -Continue Cardura, metoprolol as prior to hospitalization -Tolerating hemodialysis. No hypotension. (7) WHIT (obstructive sleep apnea): Plan: -Continue CPAP (8) HLD (hyperlipidemia): Plan: -Continue statin therapy and fish oil (9) Diabetes: Plan: -Continue Lantus/log -Follow blood sugars closely and correct with sliding scale Plan: -Plan of care discussed with Dr. Rose. Admission and Anticipated Discharge Date Admission Date: August 12, 2021 Subjective 56 yo male reports no new symptoms today. Review of Systems Review of Systems: All systems reviewed & are unremarkable except as noted in HPI & below Physical Exam Physical Exam: General: Resting comfortably in his hospital bed. NAD. HEENT: Again, periorbital edema has nearly resolved buccal mucosa is moist and pink Neck: No JVD. Negative hepatojugular reflex Cardiac: Very distant heart sounds without obvious murmur Lungs: Speaking full sentences on supplemental oxygen without W/R/R Abdomen: Normoactive X4. Abdomen difficult to examine due to habitus. Mild JVD extremities: Still with 2+ pitting edema of the left lower extremities but overall improved. Right leg with postsurgical splint. Was able to feel vibration of AV fistular yesterday. Neuro: A&O X4 cranial nerves II through XII are grossly intact no focal neuro deficits Skin: No obvious skin lesions or rashes Psych: Appropriate affect pleasant and cooperative Results & Data Results & Data ([facility]) Vital Signs (Past 12 Hours) Vital Signs Temp Pulse Pulse Pulse Resp BP BP 08/18/21 20:15 73 145/62 H 08/18/21 18:37 37.6 C H 08/18/21 18:34 38.1 C H 73 20 150/77 H 08/18/21 15:58 77 08/18/21 14:56 36.8 C 83 22 108/42 L 08/18/21 13:32 70 128/67 08/18/21 13:10 37.2 C 155/69 H 08/18/21 13:05 68 121/63 08/18/21 12:40 69 122/57 L 08/18/21 12:20 67 139/69 08/18/21 12:00 67 134/62 08/18/21 11:40 68 83/66 L 08/18/21 11:20 65 134/61 08/18/21 11:00 67 116/63 08/18/21 10:40 68 134/69 08/18/21 10:20 68 132/69 08/18/21 10:00 65 140/64 08/18/21 09:40 65 137/60 08/18/21 09:35 65 156/65 H 08/18/21 09:15 37.0 C 65 Pulse Ox 08/18/21 20:15 08/18/21 18:37 08/18/21 18:34 95 08/18/21 15:58 08/18/21 14:56 94 08/18/21 13:32 94 08/18/21 13:10 08/18/21 13:05 08/18/21 12:40 08/18/21 12:20 08/18/21 12:00 08/18/21 11:40 08/18/21 11:20 08/18/21 11:00 08/18/21 10:40 08/18/21 10:20 08/18/21 10:00 08/18/21 09:40 08/18/21 09:35 08/18/21 09:15 PG Care Time/CCT Total # of Minutes Spent Total Time Spent with Patient: Total time spent is greater than 50% in coordination of care (as documented) at patient's floor/unit and/or counseling patient: Coding Level of Care Code 39857 Subseq Hosp Care Lvl 2 Diagnoses CHF (congestive heart failure) I50.33 Heart failure chronicity: acute on chronic Heart failure type: diastolic Stage 4 chronic kidney disease due to diabetes mellitus E11.22; N18.4 Anemia D64.9 Venous stasis dermatitis I87.2 Superficial venous thrombosis of arm I82.611 Laterality: right Hypertension I10 WHIT (obstructive sleep apnea) G47.33 HLD (hyperlipidemia) E78.5 Diabetes E11.621; L97.509; Z79.4 Diabetes mellitus complication detail: with foot ulcer Diabetes mellitus complication status: with skin complications Diabetes mellitus rn long term care insulin use: with rn long term care use Diabetes mellitus type: type 2 Time Spent (min) 25 (1) Superficial venous thrombosis of arm Laterality: right Qualified Code(s): I82.611 - Acute embolism and thrombosis of superficial veins of right upper extremity (2) Diabetes Diabetes mellitus complication detail: with foot ulcer Diabetes mellitus complication status: with skin complications Diabetes mellitus rn long term care insulin use: with rn long term care use Diabetes mellitus type: type 2 Qualified Code(s): E11.621 - Type 2 diabetes mellitus with foot ulcer; L97.509 - Non- pressure chronic ulcer of other part of unspecified foot with unspecified severity; Z79.4 - group home (current) use of insulin (3) CHF (congestive heart failure) Heart failure chronicity: acute on chronic Heart failure type: diastolic Qualified Code(s): I50.33 - Acute on chronic diastolic (congestive) heart failure
[2021-08-18] MEDS: MELATONIN 3 MG TAB PO SCH (21:57)
[2021-08-19 02:35] LABS: Creatine Kinase 76 U/L (39-308)
[2021-08-19 06:07] LABS: Hematocrit (blood only) 28.3 % (42-52); Hemoglobin 9.2 g/dL (14.0-18.0); Mean Corpuscular Hemoglobin 29.8 pg (25-34); Mean Corpuscular Hgb Conc 32.5 g/dL (32-36); Mean Corpuscular Volume 91.6 fL (80-100); Mean Platelet Volume 9.4 fL (7.4-10.4); Platelet Count 227 K/uL (130-400); RDW Coefficient of Variation 14.4 % (11.5-14.5); Red Blood Count 3.09 M/uL (4.7-6.1); White Blood Count 7.96 K/uL (4.8-10.8)
[2021-08-19] MEDS: oxyCODONE/ACETAMINOPHEN 5mg/325mg TAB PO PRN ×2 (06:08→19:48)
[2021-08-19 06:47] LABS: BUN Creatinine Ratio 13.9 (10-20); Creatinine Clr Calc Pharmacy 34.1 ml/min; Est GFR (African American) 25.3 ml/min; Est GFR (Non-African American) 21.8 ml/min; Potassium 4.7 mmol/L (3.5-5.1)
[2021-08-19] MEDS: metOLazone 5 MG TABLET PO SCH ×2 (08:51→17:46)
[2021-08-19] MEDS: SPIRONOLACTONE 25 MG TAB PO SCH (09:23)
[2021-08-19] MEDS: FLUTICASONE PROPIONATE NA SPR 16 GM BTL SCH (09:24)
[2021-08-19] MEDS: FERROUS SULFATE 325 MG TAB PO SCH (09:24)
[2021-08-19] MEDS: BUMETANIDE 2 MG in SYRINGE 0 ML IV SCH ×2 (09:24→18:26)
[2021-08-19] MEDS: GABAPENTIN 600 MG TAB PO SCH ×3 (09:24→19:49)
[2021-08-19] MEDS: ASCORBIC ACID 500 MG TAB PO SCH ×2 (09:24→19:50)
[2021-08-19] MEDS: CEROVITE ADV FORMULA TAB PO SCH (09:24)
[2021-08-19] MEDS: ASPIRIN 81 MG ECTAB PO SCH (09:24)
[2021-08-19] MEDS: INSULIN ASPART 100 UNITS/ML 3 ML PEN SC SCH ×4 (09:25→20:40)
[2021-08-19] MEDS: INSULIN GLARGINE 100 UNIT/ML VIAL SC SCH ×2 (09:25→20:42)
[2021-08-19] MEDS: MUPIROCIN 2% OINT 22 GM TUBE EXT SCH ×3 (09:28→19:52)
--- NOTE | 2021-08-19 10:29 | Nephrology Progress Note ---
Date of Service August 19, 2021 Assessment & Plan (1) Need for acute hemodialysis: Plan: TDC placed by Dr. Leon 08/13. 1st HD treatment completed 08/13. Next anticipated treatment tomorrow. Remains on MWF schedule. Continue combination diuretic therapy. Case management working on arrangements for outpatient dialysis. AVF not mature for use at this time. US reviewed yesterday. Medications appropriately dosed for IHD. Low sodium diet and daily fluid restriction. Document I/O's. (2) Anemia: Plan: Chronic, stable. Epogen 10876 units provided 08/13. Venofer being provided ELINA. (3) Hypertension: Plan: Fluctuating. Remains notably hypervolemic. Tolerating current medications well. Admission and Anticipated Discharge Date Admission Date: August 12, 2021 Subjective No acute events overnight. Remains very upset regarding dispo issues. Tolerated HD yesterday without complications. BP slightly low at end of treatment and UF goal adjusted accordingly. Review of Systems Review of Systems: All systems reviewed & are unremarkable except as noted in HPI & below Physical Exam Constitutional: well developed and + morbidly obese; no acute distress Eyes: no scleral abnormality and no corneal abnormality ENMT: Mouth: no oral mucosal abnormality and oral mucous membranes not dry Neck: normal visual inspection and trachea midline Respiratory: normal respiratory effort Auscultation: + rales Cardiovascular: Rate/Rhythm: regular rate Heart Sounds: normal S1 and normal S2 Extremities: + edema and + AV fistula Musculoskeletal: Extremities: no cyanosis and no clubbing Skin: normal turgor and + induration (chronic stasis changes of the LE) Neurologic: Motor/Sensory: no tremor and no asterixis Psychiatric: Orientation: alert and oriented x 3 Results & Data ([facility]) Vital Signs (Past 12 Hours) Vital Signs Temp Pulse Resp BP Pulse Ox 08/19/21 07:13 37.1 C 60 16 147/73 H 96 08/18/21 22:34 37.2 C 68 18 127/74 94 Laboratory Results Laboratory Results - last 24 hr 08/18/21 08/18/21 08/18/21 14:18 16:15 20:27 WBC RBC Hgb Hct MCV MCH MCHC RDW Std Deviation RDW Coeff of Diane Plt Count MPV Sodium Potassium Chloride Carbon Dioxide Anion Gap BUN Creatinine Est Cr Clr Drug Dosing Est GFR ( Amer) Est GFR (Non-Af Amer) BUN/Creatinine Ratio Glucose POC Glucose 125 H 138 H 137 H Calcium Total Creatine Kinase Procalcitonin Specimen Hemolysis 08/19/21 08/19/21 08/19/21 01:50 05:48 05:48 WBC 7.96 RBC 3.09 L Hgb 9.2 L Hct 28.3 L MCV 91.6 MCH 29.8 MCHC 32.5 RDW Std Deviation 47.0 H RDW Coeff of Diane 14.4 Plt Count 227 MPV 9.4 Sodium 133 L Potassium 4.7 Chloride 101 Carbon Dioxide 25 Anion Gap 7.0 BUN 43 H Creatinine 3.06 H D Est Cr Clr Drug Dosing 34.1 Est GFR ( Amer) 25.3 Est GFR (Non-Af Amer) 21.8 BUN/Creatinine Ratio 13.9 Glucose 105 H POC Glucose Calcium 9.0 Total Creatine Kinase 76 Procalcitonin Specimen Hemolysis 08/19/21 08/19/21 05:48 08:02 WBC RBC Hgb Hct MCV MCH MCHC RDW Std Deviation RDW Coeff of Diane Plt Count MPV Sodium Potassium Chloride Carbon Dioxide Anion Gap BUN Creatinine Est Cr Clr Drug Dosing Est GFR ( Amer) Est GFR (Non-Af Amer) BUN/Creatinine Ratio Glucose POC Glucose 119 H Calcium Total Creatine Kinase Procalcitonin 0.27 Specimen Hemolysis PG Care Time/CCT Total # of Minutes Spent Total Time Spent with Patient: Total time spent is greater than 50% in coordination of care (as documented) at patient's floor/unit and/or counseling patient: Coding Level of Care Code 82962 Subseq Hosp Care Lvl 3 Diagnoses Need for acute hemodialysis Z99.2 Anemia D64.9 Hypertension I10
--- NOTE | 2021-08-19 10:37 | Pharmacy Report ---
Pharmacy Glycemic Short Note 2 - Date of Service August 19, 2021 - Glycemic Short BSG Results (Last 24 hours): 08/18/21 08/18/21 08/18/21 14:18 16:15 20:27 Glucose POC Glucose 125 H 138 H 137 H 08/19/21 08/19/21 05:48 08:02 Glucose 105 H POC Glucose 119 H OUTPATIENT ANTIDIABETIC REGIMEN: * Lantus 50 units HS * Novolog Sliding Scale 8-18 units * u-500 insulin 50 units TID Meals ASSESSMENT: 08/19: * Patient received total of 159 units of insulin yesterday; 100 units basal and 59 units bolus. * Fasting BSG = 119 mg/dl today. Continued with same amount of basal. * Post prandial BSGs yesterday at goal. Continued with same Novolog parameters. 08/17 * Patient received total of 198 units of insulin yesterday, of which 100 units were basal * BSGs trending down last evening therefore evening Lantus was reduced from 80 units to 70 units * Fasting BSG 141 mg/dL - reasonable to continue same basal insulin 08/14 * 56 year old type 2 diabetic on very large doses of insulin at home, admitted for CHF, known to pharmacy glycemic service. * Will begin with basal bolus insulin similar to last admission and titrate to goal blood sugar. PLAN FOR INPATIENT GLYCEMIC CONTROL: * Hold outpatient U-500 insulin * Basal insulin * Lantus 30 units SQ AM, 70 units SQ HS * Bolus insulin * NovoLog per scale ACHS or Q6hrs while NPO * Goal Range: Low 110 mg/dL - High 140 mg/dL * Correction Factor: 10 mg/dL/unit * Nutritional / Prandial insulin per carb ratio of 1 unit per 2 grams CHO consumed PLAN FOR DISCHARGE: * A1c ~7.7% - goal 7% / reasonable to continue home insulin regimen on discharge as long as no contraindications are present
[2021-08-19] MEDS ORDERED: Influenza Vaccine (Fluarix) 0.5 ML SYR (Standard Dose) IM ONE (12:15)
[2021-08-19] MEDS: METOPROLOL SUCC 50MG EXT REL TAB PO SCH (19:48)
[2021-08-19] MEDS: CYANOCOBALAMIN 500 MCG TABLET (VITAMIN B-12) PO SCH (19:49)
[2021-08-19] MEDS: DOXAZosin MESYLATE 4 MG TAB PO SCH (19:50)
[2021-08-19] MEDS: MAGNESIUM OXIDE 400 MG TAB PO SCH (19:50)
[2021-08-19] MEDS: OMEGA-3 (PURIFIED FISH OIL) 1 GM CAP PO SCH (19:50)
[2021-08-19] MEDS: CHOLECALCIFEROL 1,000 UNITS 25 MCG TAB PO SCH (19:51)
[2021-08-19] MEDS: PANTOprazole 40 MG TAB PO SCH (19:51)
[2021-08-19] MEDS: ATORVASTATIN 40 MG TAB PO SCH (19:52)
--- NOTE | 2021-08-19 20:47 | Hospitalist Progress Note ---
Date of Service August 19, 2021 Assessment & Plan (1) CHF (congestive heart failure): Plan: - Refractory and resistant to diuretic management - Symptoms mostly right right sided (with edema of the legs/scrotum/abd/and even the face) - AV fistula placed on 08/03 but not mature (which I can not feel vibration today. Will obtain stat doppler to r/o thrombosis and if noted, consult Vascular tomorrow) - Vascular surgery Placed tunneled permcath on 08/13 - Nephrology on board. Patient is s/p HD on 08/13/21 and 08/14. Nepro managing hypervolumic state - Case was D/W Nephro: add Bumex back, keep zaroxolyn and add aldactone - Epogen 20,000 units and IV Venofer per nephrology - Seems to be responding favorably to treatment. I's and O's documented do not seem accurate--> weight down 20 lbs - dispo likely complicated-- see below (2) Stage 4 chronic kidney disease due to diabetes mellitus: Plan: - Although creatinine not terrible, patient with stage IV CKD and volume overload resistant to diuretic therapy - Creatinine actually better than baseline (which is 2.0-2.5) and likely due to current volume overload - Nephrology on board -appreciate recommendations. - manager surgery has been consulted to help with referral for outpatient dialysis. Apparently patient from [facility] who may not have an agreement with [facility] dialysis. Patient may need transfer to a different facility. This is uncertain at this point but case management working on - Awaiting for placement. (3) Anemia: Plan: - chronic and not far from baseline - suspect anemia of chronic disease from CKD - Epogen and Venofer given - noted to be on ASA BID (likely DVT prophylaxis given recent achilles tendon repair which was 30 days ago). Change to once a day and watch labs closely. (4) Venous stasis dermatitis: Plan: - Patient initially placed on antibiotic therapy upfront prep possible cellulitis. - He was afebrile with a normal white blood cell count. Procalcitonin negative. - Appears more consistent with stasis dermatitis. - Antibiotic therapy has been stopped. - still no fever or leukocytosis -will recheck levels in AM. will exchange splint tomorrow. (5) Superficial venous thrombosis of arm: Plan: - Right arm and likely from [facility]) - No treatment needed. Staff may utilize K pad if needed (6) Hypertension: Plan: -Continue Cardura, metoprolol as prior to hospitalization -Tolerating hemodialysis. No hypotension. (7) WHIT (obstructive sleep apnea): Plan: -Continue CPAP (8) HLD (hyperlipidemia): Plan: -Continue statin therapy and fish oil (9) Diabetes: Plan: -Continue Lantus/log -Follow blood sugars closely and correct with sliding scale Plan: -Plan of care discussed with Dr. Rose. Admission and Anticipated Discharge Date Admission Date: August 12, 2021 Subjective Patient reports no new symptoms. Review of Systems Review of Systems: All systems reviewed & are unremarkable except as noted in HPI & below Physical Exam Physical Exam: General: Resting comfortably in his hospital bed. NAD. HEENT: Again, periorbital edema has nearly resolved buccal mucosa is moist and pink Neck: No JVD. Negative hepatojugular reflex Cardiac: Very distant heart sounds without obvious murmur Lungs: Speaking full sentences on supplemental oxygen without W/R/R Abdomen: Normoactive X4. Abdomen difficult to examine due to habitus. Mild JVD extremities: Still with 2+ pitting edema of the left lower extremities but overall improved. Right leg with postsurgical splint. Was able to feel vibration of AV fistular yesterday. Neuro: A&O X4 cranial nerves II through XII are grossly intact no focal neuro deficits Skin: No obvious skin lesions or rashes Psych: Appropriate affect pleasant and cooperative Results & Data Results & Data ([facility]) Vital Signs (Past 12 Hours) Vital Signs Temp Pulse Resp BP Pulse Ox 08/19/21 19:47 66 152/73 H 93 08/19/21 15:41 37.1 C 60 18 144/63 H 98 PG Care Time/CCT Total # of Minutes Spent Total Time Spent with Patient: Total time spent is greater than 50% in coordination of care (as documented) at patient's floor/unit and/or counseling patient: Coding Level of Care Code 50102 Subseq Hosp Care Lvl 1 Diagnoses CHF (congestive heart failure) I50.33 Heart failure chronicity: acute on chronic Heart failure type: diastolic Stage 4 chronic kidney disease due to diabetes mellitus E11.22; N18.4 Anemia D64.9 Venous stasis dermatitis I87.2 Superficial venous thrombosis of arm I82.611 Laterality: right Hypertension I10 WHIT (obstructive sleep apnea) G47.33 HLD (hyperlipidemia) E78.5 Diabetes E11.621; L97.509; Z79.4 Diabetes mellitus complication detail: with foot ulcer Diabetes mellitus complication status: with skin complications Diabetes mellitus local intermodal truck driver insulin use: with snf use Diabetes mellitus type: type 2 (1) Superficial venous thrombosis of arm Laterality: right Qualified Code(s): I82.611 - Acute embolism and thrombosis of superficial veins of right upper extremity (2) Diabetes Diabetes mellitus complication detail: with foot ulcer Diabetes mellitus complication status: with skin complications Diabetes mellitus local intermodal truck driver insulin use: with snf use Diabetes mellitus type: type 2 Qualified Code(s): E11.621 - Type 2 diabetes mellitus with foot ulcer; L97.509 - Non- pressure chronic ulcer of other part of unspecified foot with unspecified severity; Z79.4 - jail (current) use of insulin (3) CHF (congestive heart failure) Heart failure chronicity: acute on chronic Heart failure type: diastolic Qualified Code(s): I50.33 - Acute on chronic diastolic (congestive) heart failure
[2021-08-19] MEDS: MELATONIN 3 MG TAB PO SCH (22:19)
[2021-08-20] MEDS: oxyCODONE/ACETAMINOPHEN 5mg/325mg TAB PO PRN (02:55)
[2021-08-20] MEDS ORDERED: HEPARIN SOD (PORCINE) 1000 UNIT/ML IV SCH (07:00)
[2021-08-20] MEDS ORDERED: SODIUM CHLORIDE 0.9% 1000ML 1,000 ML IV PRN (07:00)
[2021-08-20] MEDS: NEPHROCAPS PO SCH (08:24)
[2021-08-20] MEDS: ASPIRIN 81 MG ECTAB PO SCH (08:26)
[2021-08-20] MEDS: GABAPENTIN 600 MG TAB PO SCH ×3 (08:28→21:06)
[2021-08-20] MEDS: FERROUS SULFATE 325 MG TAB PO SCH (08:30)
[2021-08-20] MEDS: FLUTICASONE PROPIONATE NA SPR 16 GM BTL SCH (08:32)
[2021-08-20] MEDS: ASCORBIC ACID 500 MG TAB PO SCH ×2 (08:32→21:04)
[2021-08-20] MEDS: MUPIROCIN 2% OINT 22 GM TUBE EXT SCH ×4 (08:34→21:06)
[2021-08-20] MEDS: INSULIN GLARGINE 100 UNIT/ML VIAL SC SCH (08:37)
[2021-08-20] MEDS: metOLazone 5 MG TABLET PO SCH ×2 (08:38→17:10)
[2021-08-20] MEDS: SPIRONOLACTONE 25 MG TAB PO SCH (08:39)
[2021-08-20] MEDS: INSULIN ASPART 100 UNITS/ML 3 ML PEN SC SCH ×4 (08:42→21:12)
--- NOTE | 2021-08-20 11:04 | Nephrology Progress Note ---
Date of Service August 20, 2021 Assessment & Plan (1) Need for acute hemodialysis: Plan: TDC placed by Dr. Leon 08/13. 1st HD treatment completed 08/13. Orders for HD today entered into EMR and reviewed with HD nurse. Reid was seen and evaluated during HD. Continue combination diuretic therapy. Unclear benefit of Aldactone or metolazone at this time. I will stop Aldactone now. Case management working on arrangements for outpatient dialysis. AVF not mature for use at this time. US reviewed earlier during admission. Medications appropriately dosed for IHD. Low sodium diet and daily fluid restriction. Document I/O's. (2) Anemia: Plan: Chronic, stable. Epogen 24819 units provided 08/13. Venofer provided ELINA for ELINA. (3) Hypertension: Plan: Fluctuating. Remains notably hypervolemic. Tolerating current medications well. Admission and Anticipated Discharge Date Admission Date: August 12, 2021 Subjective No acute events overnight. Reid was seen and evaluated on HD this AM. He is tolerating HD well. He remains very frustrated and upset about his hospitalization and experience. Reid told me this AM that he would sign out AM if he had to spend 1 more day in the hospital with his current fluid restriction. He was agreeable to a 1.5 L daily fluid limit. Review of Systems Review of Systems: All systems reviewed & are unremarkable except as noted in HPI & below Physical Exam Constitutional: well developed and + morbidly obese; no acute distress Eyes: no scleral abnormality and no corneal abnormality ENMT: Mouth: no oral mucosal abnormality and oral mucous membranes not dry Neck: normal visual inspection and trachea midline Respiratory: normal respiratory effort Auscultation: + rales Cardiovascular: Rate/Rhythm: regular rate Heart Sounds: normal S1 and emiliano l S2 Extremities: + edema and + AV fistula Musculoskeletal: Extremities: no cyanosis and no clubbing Skin: normal turgor and + induration (chronic stasis changes of the LE) Neurologic: Motor/Sensory: no tremor and no asterixis Psychiatric: Orientation: alert and oriented x 3 Results & Data ([facility]) Vital Signs (Past 12 Hours) Vital Signs Temp Pulse Pulse Pulse Resp BP BP 08/20/21 10:00 55 L 120/58 L 08/20/21 09:40 58 L 150/70 H 08/20/21 09:35 37.4 C 58 L 08/20/21 06:45 36.9 C 56 L 18 150/82 H Pulse Ox 08/20/21 10:00 08/20/21 09:40 08/20/21 09:35 08/20/21 06:45 97 Laboratory Results Laboratory Results - last 24 hr 08/19/21 08/19/21 08/19/21 12:02 17:06 20:34 POC Glucose 114 H 96 101 H 08/20/21 08:14 POC Glucose 94 PG Care Time/CCT Total # of Minutes Spent Total Time Spent with Patient: Total time spent is greater than 50% in coordination of care (as documented) at patient's floor/unit and/or counseling patient: Coding Level of Care Code 30669 Subseq Hosp Care Lvl 3 Diagnoses Need for acute hemodialysis Z99.2 Anemia D64.9 Hypertension I10
[2021-08-20] MEDS: HEPARIN SOD (PORCINE) 1000 UNIT/ML IV SCH ×3 (14:14→14:18)
[2021-08-20] MEDS: BUMETANIDE 2 MG in SYRINGE 0 ML IV SCH ×2 (14:17→18:07)
[2021-08-20] MEDS: oxyCODONE HCL IR 5 MG TAB (IMMEDIATE RELEASE) PO PRN ×2 (14:37→22:13)
--- NOTE | 2021-08-20 14:59 | Pharmacy Report ---
Pharmacy Glycemic Short Note 2 - Date of Service August 20, 2021 - Glycemic Short BSG Results (Last 24 hours): 08/19/21 08/19/21 08/20/21 17:06 20:34 08:14 POC Glucose 96 101 H 94 08/20/21 14:08 POC Glucose 129 H OUTPATIENT ANTIDIABETIC REGIMEN: * Lantus 50 units HS * Novolog Sliding Scale 8-18 units * u-500 insulin 50 units TID Meals ASSESSMENT: 08/20: * Patient received total of 165 units of insulin yesterday, of which 100 units were basal * Fasting BSG 94 mg/dL - each day fasting BSG has been trending down, therefore will scale back on PM Lantus dose for tonight * BSGs yesterday evening/HS on softer side - may scale back on CR today 08/19: * Patient received total of 159 units of insulin yesterday; 100 units basal and 59 units bolus. * Fasting BSG = 119 mg/dl today. Continued with same amount of basal. * Post prandial BSGs yesterday at goal. Continued with same Novolog parameters. 08/17 * Patient received total of 198 units of insulin yesterday, of which 100 units were basal * BSGs trending down last evening therefore evening Lantus was reduced from 80 units to 70 units * Fasting BSG 141 mg/dL - reasonable to continue same basal insulin 08/14 * 56 year old type 2 diabetic on very large doses of insulin at home, admitted for CHF, known to pharmacy glycemic service. * Will begin with basal bolus insulin similar to last admission and titrate to goal blood sugar. PLAN FOR INPATIENT GLYCEMIC CONTROL: * Hold outpatient U-500 insulin * Basal insulin * Lantus 30 units SQ AM, 60 units SQ HS * Bolus insulin * NovoLog per scale ACHS or Q6hrs while NPO * Goal Range: Low 110 mg/dL - High 140 mg/dL * Correction Factor: 10 mg/dL/unit * Nutritional / Prandial insulin per carb ratio of 1 unit per 3 grams CHO consumed PLAN FOR DISCHARGE: * A1c ~7.7% - goal 7% / reasonable to continue home insulin regimen on discharge as long as no contraindications are present
[2021-08-20 16:44] LABS: BUN Creatinine Ratio 12.8 (10-20); Calcium 9.4 mg/dl (8.5-10.1); Creatinine Clr Calc Pharmacy 46.5 ml/min; Est GFR (African American) 39.9 ml/min; Est GFR (Non-African American) 34.4 ml/min; Potassium 4.7 mmol/L (3.5-5.1)
--- NOTE | 2021-08-20 20:34 | Hospitalist Progress Note ---
Date of Service August 20, 2021 Assessment & Plan (1) CHF (congestive heart failure): Plan: - Refractory and resistant to diuretic management - Symptoms mostly right right sided (with edema of the legs/scrotum/abd/and even the face) - AV fistula placed on 08/03 but not mature (which I can not feel vibration today. Will obtain stat doppler to r/o thrombosis and if noted, consult Vascular tomorrow) - Vascular surgery Placed tunneled permcath on 08/13 - Nephrology on board. Patient is s/p HD on 08/13/21 and 08/14. Nepro managing hypervolumic state - Case was D/W Nephro: add Bumex back, keep zaroxolyn and add aldactone - Epogen 20,000 units and IV Venofer per nephrology - Seems to be responding favorably to treatment. I's and O's documented do not seem accurate--> weight down 20 lbs - dispo likely complicated-- see below (2) Stage 4 chronic kidney disease due to diabetes mellitus: Plan: - Although creatinine not terrible, patient with stage IV CKD and volume overload resistant to diuretic therapy - Creatinine actually better than baseline (which is 2.0-2.5) and likely due to current volume overload - Nephrology on board -appreciate recommendations. - manager of case has been consulted to help with referral for outpatient dialysis. Apparently patient from [facility] who may not have an agreement with [facility] dialysis. Patient may need transfer to a different facility. This is uncertain at this point but case management working on - Awaiting for placement. (3) Anemia: Plan: - chronic and not far from baseline - suspect anemia of chronic disease from CKD - Epogen and Venofer given - noted to be on ASA BID (likely DVT prophylaxis given recent achilles tendon repair which was 30 days ago). Change to once a day and watch labs closely. (4) Venous stasis dermatitis: Plan: - Patient initially placed on antibiotic therapy upfront prep possible cellulitis. - He was afebrile with a normal white blood cell count. Procalcitonin negative. - Appears more consistent with stasis dermatitis. - Antibiotic therapy has been stopped. - still no fever or leukocytosis -will recheck levels in AM. will exchange splint tomorrow. (5) Superficial venous thrombosis of arm: Plan: - Right arm and likely from recent IV (placed at the care home) - No treatment needed. Staff may utilize K pad if needed (6) Hypertension: Plan: -Continue Cardura, metoprolol as prior to hospitalization -Tolerating hemodialysis. No hypotension. (7) WHIT (obstructive sleep apnea): Plan: -Continue CPAP (8) HLD (hyperlipidemia): Plan: -Continue statin therapy and fish oil (9) Diabetes: Plan: -Continue Lantus/log -Follow blood sugars closely and correct with sliding scale Plan: -Plan of care discussed with Dr. Rose. Admission and Anticipated Discharge Date Admission Date: August 12, 2021 Subjective Patient is resting comfortably. Physical Exam Physical Exam: General: Resting comfortably in his hospital bed. NAD. HEENT: Again, periorbital edema has nearly resolved buccal mucosa is moist and pink Neck: No JVD. Negative hepatojugular reflex Cardiac: Very distant heart sounds without obvious murmur Lungs: Speaking full sentences on supplemental oxygen without W/R/R Abdomen: Normoactive X4. Abdomen difficult to examine due to habitus. Mild JVD extremities: Still with 2+ pitting edema of the left lower extremities but overall improved. Right leg with postsurgical splint. Was able to feel vibration of AV fistular yesterday. Neuro: A&O X4 cranial nerves II through XII are grossly intact no focal neuro deficits Skin: No obvious skin lesions or rashes Psych: Appropriate affect pleasant and cooperative Results & Data Results & Data ([facility]) Vital Signs (Past 12 Hours) Vital Signs Temp Pulse Pulse Pulse Resp BP BP 08/20/21 17:21 37.6 C H 62 16 131/82 08/20/21 14:12 37.5 C 64 18 170/85 H 08/20/21 13:13 37.1 C 62 62 106/60 106/60 08/20/21 13:00 62 106/58 L 08/20/21 12:40 64 118/61 08/20/21 12:20 61 109/58 L 08/20/21 12:00 61 95/57 L 08/20/21 11:40 61 111/59 L 08/20/21 11:20 61 108/61 08/20/21 11:00 59 L 117/55 L 08/20/21 10:40 58 L 113/63 08/20/21 10:20 58 L 110/59 L 08/20/21 10:00 55 L 120/58 L 08/20/21 09:40 58 L 150/70 H 08/20/21 09:35 37.4 C 58 L Pulse Ox 08/20/21 17:21 94 08/20/21 14:12 96 08/20/21 13:13 08/20/21 13:00 08/20/21 12:40 08/20/21 12:20 08/20/21 12:00 08/20/21 11:40 08/20/21 11:20 08/20/21 11:00 08/20/21 10:40 08/20/21 10:20 08/20/21 10:00 08/20/21 09:40 08/20/21 09:35 PG Care Time/CCT Total # of Minutes Spent Total Time Spent with Patient: Total time spent is greater than 50% in coordination of care (as documented) at patient's floor/unit and/or counseling patient: Coding Level of Care Code 52644 Subseq Hosp Care Lvl 1 Diagnoses CHF (congestive heart failure) I50.33 Heart failure chronicity: acute on chronic Heart failure type: diastolic Stage 4 chronic kidney disease due to diabetes mellitus E11.22; N18.4 Anemia D64.9 Venous stasis dermatitis I87.2 Superficial venous thrombosis of arm I82.611 Laterality: right Hypertension I10 WHIT (obstructive sleep apnea) G47.33 HLD (hyperlipidemia) E78.5 Diabetes E11.621; L97.509; Z79.4 Diabetes mellitus complication detail: with foot ulcer Diabetes mellitus complication status: with skin complications Diabetes mellitus assisted insulin use: with assisted use Diabetes mellitus type: type 2 (1) Superficial venous thrombosis of arm Laterality: right Qualified Code(s): I82.611 - Acute embolism and thrombosis of superficial veins of right upper extremity (2) Diabetes Diabetes mellitus complication detail: with foot ulcer Diabetes mellitus complication status: with skin complications Diabetes mellitus termite control representative insulin use: with termite control representative use Diabetes mellitus type: type 2 Qualified Code(s): E11.621 - Type 2 diabetes mellitus with foot ulcer; L97.509 - Non- pressure chronic ulcer of other part of unspecified foot with unspecified severity; Z79.4 - termite control representative (current) use of insulin (3) CHF (congestive heart failure) Heart failure chronicity: acute on chronic Heart failure type: diastolic Qualified Code(s): I50.33 - Acute on chronic diastolic (congestive) heart failure
[2021-08-20] MEDS ORDERED: INSULIN GLARGINE 100 UNIT/ML VIAL SC SCH ×2 (21:00)
[2021-08-20] MEDS: MAGNESIUM OXIDE 400 MG TAB PO SCH (21:02)
[2021-08-20] MEDS: MELATONIN 3 MG TAB PO SCH (21:02)
[2021-08-20] MEDS: CYANOCOBALAMIN 500 MCG TABLET (VITAMIN B-12) PO SCH (21:02)
[2021-08-20] MEDS: DOXAZosin MESYLATE 4 MG TAB PO SCH (21:03)
[2021-08-20] MEDS: PANTOprazole 40 MG TAB PO SCH (21:03)
[2021-08-20] MEDS: ATORVASTATIN 40 MG TAB PO SCH (21:05)
[2021-08-20] MEDS: METOPROLOL SUCC 50MG EXT REL TAB PO SCH (21:05)
[2021-08-20] MEDS: OMEGA-3 (PURIFIED FISH OIL) 1 GM CAP PO SCH (21:05)
[2021-08-20] MEDS: CHOLECALCIFEROL 1,000 UNITS 25 MCG TAB PO SCH (21:05)
[2021-08-21] MEDS: GABAPENTIN 600 MG TAB PO SCH ×3 (08:27→20:30)
[2021-08-21] MEDS: BUMETANIDE 2 MG in SYRINGE 0 ML IV SCH (08:27)
[2021-08-21] MEDS: FLUTICASONE PROPIONATE NA SPR 16 GM BTL SCH (08:28)
[2021-08-21] MEDS: ASPIRIN 81 MG ECTAB PO SCH (08:28)
[2021-08-21] MEDS: ASCORBIC ACID 500 MG TAB PO SCH ×2 (08:28→20:30)
[2021-08-21] MEDS: NEPHROCAPS PO SCH (08:28)
[2021-08-21] MEDS: FERROUS SULFATE 325 MG TAB PO SCH (08:28)
[2021-08-21] MEDS: MUPIROCIN 2% OINT 22 GM TUBE EXT SCH ×3 (08:29→20:31)
[2021-08-21] MEDS: metOLazone 5 MG TABLET PO SCH (08:29)
[2021-08-21] MEDS: SPIRONOLACTONE 25 MG TAB PO SCH (08:29)
[2021-08-21] MEDS: oxyCODONE HCL IR 5 MG TAB (IMMEDIATE RELEASE) PO PRN ×2 (08:33→21:20)
[2021-08-21] MEDS: INSULIN GLARGINE 100 UNIT/ML VIAL SC SCH (09:18)
[2021-08-21] MEDS: INSULIN ASPART 100 UNITS/ML 3 ML PEN SC SCH ×4 (09:19→20:32)
--- NOTE | 2021-08-21 11:04 | Pharmacy Report ---
Pharmacy Glycemic Short Note 2 - Date of Service August 21, 2021 - Glycemic Short BSG Results (Last 24 hours): 08/20/21 08/20/21 08/20/21 14:08 15:27 16:57 Glucose 151 H POC Glucose 129 H 122 H 08/20/21 08/21/21 20:24 08:25 Glucose POC Glucose 126 H 155 H OUTPATIENT ANTIDIABETIC REGIMEN: * Lantus 50 units HS * Novolog Sliding Scale 8-18 units * u-500 insulin 50 units TID Meals ASSESSMENT: 08/21 * Pt has received 121 units of insulin over the past 24hrs * 90 units of basal with Lantus * 31 units of bolus with NovoLog * BSGs all in goal range with current orders * NovoLog on the low side d/t low CHO intake with HD yesterday. * No changes needed today 08/20: * Patient received total of 165 units of insulin yesterday, of which 100 units were basal * Fasting BSG 94 mg/dL - each day fasting BSG has been trending down, therefore will scale back on PM Lantus dose for tonight * BSGs yesterday evening/HS on softer side - may scale back on CR today 08/19: * Patient received total of 159 units of insulin yesterday; 100 units basal and 59 units bolus. * Fasting BSG = 119 mg/dl today. Continued with same amount of basal. * Post prandial BSGs yesterday at goal. Continued with same Novolog parameters. 08/17 * Patient received total of 198 units of insulin yesterday, of which 100 units were basal * BSGs trending down last evening therefore evening Lantus was reduced from 80 units to 70 units * Fasting BSG 141 mg/dL - reasonable to continue same basal insulin 08/14 * 56 year old type 2 diabetic on very large doses of insulin at home, admitted for CHF, known to pharmacy glycemic service. * Will begin with basal bolus insulin similar to last admission and titrate to goal blood sugar. PLAN FOR INPATIENT GLYCEMIC CONTROL: * Hold outpatient U-500 insulin * Basal insulin * Lantus 30 units SQ AM, 60 units SQ HS * Bolus insulin * NovoLog per scale ACHS or Q6hrs while NPO * Goal Range: Low 110 mg/dL - High 140 mg/dL * Correction Factor: 10 mg/dL/unit * Nutritional / Prandial insulin per carb ratio of 1 unit per 3 grams CHO consumed PLAN FOR DISCHARGE: * A1c ~7.7% - goal 7% / reasonable to continue home insulin regimen on discharge as long as no contraindications are present
--- NOTE | 2021-08-21 11:45 | Nephrology Progress Note ---
Date of Service August 21, 2021 Assessment & Plan (1) Need for acute hemodialysis: Plan: * HD initiated due to CRS and repeated hospitalization for volume overload requiring high dose IV diuretic therapy * Patient did not respond to IV diuretic therapy provided at longterm. He was 50 lbs above his EDW. His fluid retention limited his physical activities and ADL's * L wrist AVF created by Dr. Leon 08/04/21 - not yet mature for use * R IJ THC placed 08/[address] Leon. 1st HD 08/13/21 * Patient appears euvolemic and electrolyte balance is acceptable. No acute indication for HD today * Plan HD Monday followed by transfer back to [facility] * Case management working on arrangements for outpatient dialysis * Will change diuretic to Bumex 2 mg po BID to help encourage diuresis in between dialysis treatments (2) Anemia: Plan: * Epogen 08744 units provided 08/13 (3) Hypertension: Plan: * BP improved following UF Admission and Anticipated Discharge Date Admission Date: August 12, 2021 Subjective Mr. Swartz was evaluated in his hospital room this morning. He is frustrated about the need for ongoing hospitalization and limited dietary choices. His weight has dropped 30 kg (66 lbs) since admission. He reports that his LE swelling has resolved Review of Systems Constitutional: no fever Eyes: no problem reported Ear, Nose, Mouth, Throat: no problem reported Respiratory: no cough and no dyspnea Cardiovascular: no chest pain, no palpitations and no edema Gastrointestinal: no abdominal pain, no nausea, no vomiting and no diarrhea/loose stools Musculoskeletal: no back pain Integumentary: no rash Neurologic: no confusion Physical Exam Constitutional: + obese; not in distress Eyes: PERRL, conjunctivae normal, anicteric sclerae ENMT: external ear and nose normal, oropharynx normal Neck: trachea midline, no thyromegaly Respiratory: normal respiratory effort, lungs clear to auscultation Cardiovascular: RRR, no murmur, no edema Gastrointestinal (Abdomen): normal bowel sounds, soft, nontender, no hepatos plenomegaly Skin: no rashes, warm and dry Neurologic: awake; not confused Results & Data ([place]) Vital Signs (Past 12 Hours) Vital Signs Temp Pulse Resp BP Pulse Ox 08/21/21 07:29 36.7 C 60 18 142/84 H 97 Laboratory Results Laboratory Tests 08/19/21 08/20/21 05:48 15:27 WBC 7.96 Hgb 9.2 L Hct 28.3 L Plt Count 227 Sodium 133 L Potassium 4.7 Chloride 101 Carbon Dioxide 25 BUN 27 H Creatinine 2.10 H D Glucose 151 H PG Care Time/CCT Total # of Minutes Spent Total Time Spent with Patient: Total time spent is greater than 50% in coordination of care (as documented) at patient's floor/unit and/or counseling patient: Coding Level of Care Code 12379 Subseq Hosp Care Lvl 3 Diagnoses Need for acute hemodialysis Z99.2 Anemia D64.9 Hypertension I10
[2021-08-21] MEDS ORDERED: BUMETANIDE 1 MG TAB PO ONE (19:00)
[2021-08-21] MEDS: PANTOprazole 40 MG TAB PO SCH (20:28)
[2021-08-21] MEDS: CHOLECALCIFEROL 1,000 UNITS 25 MCG TAB PO SCH (20:28)
[2021-08-21] MEDS: METOPROLOL SUCC 50MG EXT REL TAB PO SCH (20:30)
[2021-08-21] MEDS: DOXAZosin MESYLATE 4 MG TAB PO SCH (20:30)
[2021-08-21] MEDS: OMEGA-3 (PURIFIED FISH OIL) 1 GM CAP PO SCH (20:30)
[2021-08-21] MEDS: MAGNESIUM OXIDE 400 MG TAB PO SCH (20:30)
[2021-08-21] MEDS: ATORVASTATIN 40 MG TAB PO SCH (20:30)
--- NOTE | 2021-08-21 20:32 | Hospitalist Progress Note ---
Date of Service August 21, 2021 Assessment & Plan (1) CHF (congestive heart failure): Plan: - Refractory and resistant to diuretic management - Symptoms mostly right right sided (with edema of the legs/scrotum/abd/and even the face) - AV fistula placed on 08/03 but not mature (which I can not feel vibration today. Will obtain stat doppler to r/o thrombosis and if noted, consult Vascular tomorrow) - Vascular surgery Placed tunneled permcath on 08/13 - Nephrology on board. Patient is s/p HD on 08/13/21 and 08/14. Nepro managing hypervolumic state - Case was D/W Nephro: add Bumex back, keep zaroxolyn and add aldactone - Epogen 20,000 units and IV Venofer per nephrology - Seems to be responding favorably to treatment. I's and O's documented do not seem accurate--> weight down 20 lbs - dispo likely complicated-- see below (2) Stage 4 chronic kidney disease due to diabetes mellitus: Plan: - Although creatinine not terrible, patient with stage IV CKD and volume overload resistant to diuretic therapy - Creatinine actually better than baseline (which is 2.0-2.5) and likely due to current volume overload - Nephrology on board -appreciate recommendations. - municipal services manager has been consulted to help with referral for outpatient dialysis. Apparently patient from [facility] who may not have an agreement with [facility] dialysis. Patient may need transfer to a different facility. This is uncertain at this point but case management working on - Awaiting for placement. (3) Anemia: Plan: - chronic and not far from baseline - suspect anemia of chronic disease from CKD - Epogen and Venofer given - noted to be on ASA BID (likely DVT prophylaxis given recent achilles tendon repair which was 30 days ago). Change to once a day and watch labs closely. (4) Venous stasis dermatitis: Plan: - Patient initially placed on antibiotic therapy upfront prep possible cellulitis. - He was afebrile with a normal white blood cell count. Procalcitonin negative. - Appears more consistent with stasis dermatitis. - Antibiotic therapy has been stopped. - still no fever or leukocytosis -will recheck levels in AM. will exchange splint tomorrow. (5) Superficial venous thrombosis of arm: Plan: - Right arm and likely [facility] - No treatment needed. Staff may utilize K pad if needed (6) Hypertension: Plan: -Continue Cardura, metoprolol as prior to hospitalization -Tolerating hemodialysis. No hypotension. (7) WHIT (obstructive sleep apnea): Plan: -Continue CPAP (8) HLD (hyperlipidemia): Plan: -Continue statin therapy and fish oil (9) Diabetes: Plan: -Continue Lantus/log -Follow blood sugars closely and correct with sliding scale Plan: -Plan of care discussed with Dr. Rose. Admission and Anticipated Discharge Date Admission Date: August 12, 2021 Subjective Patient reports no new symptoms. Review of Systems Review of Systems: All systems reviewed & are unremarkable except as noted in HPI & below Physical Exam Physical Exam: General: Resting comfortably in his hospital bed. NAD. HEENT: Again, periorbital edema has nearly resolved buccal mucosa is moist and pink Neck: No JVD. Negative hepatojugular reflex Cardiac: Very distant heart sounds without obvious murmur Lungs: Speaking full sentences on supplemental oxygen without W/R/R Abdomen: Normoactive X4. Abdomen difficult to examine due to habitus. Mild JVD extremities: Still with 2+ pitting edema of the left lower extremities but overall improved. Right leg with postsurgical splint. Was able to feel vibration of AV fistular yesterday. Neuro: A&O X4 cranial nerves II through XII are grossly intact no focal neuro deficits Skin: No obvious skin lesions or rashes Psych: Appropriate affect pleasant and cooperative Results & Data Results & Data ([facility]) Vital Signs (Past 12 Hours) Vital Signs Temp Pulse Resp BP Pulse Ox 08/21/21 14:32 36.7 C 75 16 142/75 H 93 PG Care Time/CCT Total # of Minutes Spent Total Time Spent with Patient: Total time spent is greater than 50% in coordination of care (as documented) at patient's floor/unit and/or counseling patient: Coding Level of Care Code 59858 Subseq Hosp Care Lvl 1 Diagnoses CHF (congestive heart failure) I50.33 Heart failure chronicity: acute on chronic Heart failure type: diastolic Stage 4 chronic kidney disease due to diabetes mellitus E11.22; N18.4 Anemia D64.9 Venous stasis dermatitis I87.2 Superficial venous thrombosis of arm I82.611 Laterality: right Hypertension I10 WHIT (obstructive sleep apnea) G47.33 HLD (hyperlipidemia) E78.5 Diabetes E11.621; L97.509; Z79.4 Diabetes mellitus complication detail: with foot ulcer Diabetes mellitus complication status: with skin complications Diabetes mellitus fci insulin use: with fci use Diabetes mellitus type: type 2 (1) Superficial venous thrombosis of arm Laterality: right Qualified Code(s): I82.611 - Acute embolism and thrombosis of superficial veins of right upper extremity (2) Diabetes Diabetes mellitus complication detail: with foot ulcer Diabetes mellitus complication status: with skin complications Diabetes mellitus fci insulin use: with fci use Diabetes mellitus type: type 2 Qualified Code(s): E11.621 - Type 2 diabetes mellitus with foot ulcer; L97.509 - Non- pressure chronic ulcer of other part of unspecified foot with unspecified severity; Z79.4 - professor of sport management (current) use of insulin (3) CHF (congestive heart failure) Heart failure chronicity: acute on chronic Heart failure type: diastolic Qualified Code(s): I50.33 - Acute on chronic diastolic (congestive) heart failure
[2021-08-21] MEDS: CYANOCOBALAMIN 500 MCG TABLET (VITAMIN B-12) PO SCH (20:38)
[2021-08-21] MEDS ORDERED: INSULIN GLARGINE 100 UNIT/ML VIAL SC SCH (21:00)
[2021-08-21] MEDS: MELATONIN 3 MG TAB PO SCH (21:21)
[2021-08-21] MEDS: oxyCODONE/ACETAMINOPHEN 5mg/325mg TAB PO PRN (23:34)
[2021-08-22] MEDS: oxyCODONE HCL IR 5 MG TAB (IMMEDIATE RELEASE) PO PRN ×3 (07:09→20:47)
[2021-08-22] MEDS: FERROUS SULFATE 325 MG TAB PO SCH (08:09)
[2021-08-22] MEDS: ASCORBIC ACID 500 MG TAB PO SCH ×2 (08:09→20:51)
[2021-08-22] MEDS: GABAPENTIN 600 MG TAB PO SCH ×3 (08:10→20:51)
[2021-08-22] MEDS: ASPIRIN 81 MG ECTAB PO SCH (08:10)
[2021-08-22] MEDS: FLUTICASONE PROPIONATE NA SPR 16 GM BTL SCH (08:10)
[2021-08-22] MEDS: MUPIROCIN 2% OINT 22 GM TUBE EXT SCH ×3 (08:11→20:54)
[2021-08-22] MEDS: NEPHROCAPS PO SCH (08:11)
[2021-08-22] MEDS: INSULIN ASPART 100 UNITS/ML 3 ML PEN SC SCH ×4 (09:06→20:55)
[2021-08-22] MEDS: INSULIN GLARGINE 100 UNIT/ML VIAL SC SCH (09:07)
[2021-08-22] MEDS: oxyCODONE/ACETAMINOPHEN 5mg/325mg TAB PO PRN (09:09)
--- NOTE | 2021-08-22 10:14 | Nephrology Progress Note ---
Date of Service August 22, 2021 Assessment & Plan (1) Need for acute hemodialysis: Plan: * HD initiated due to CRS and repeated hospitalization for volume overload requiring high dose IV diuretic therapy * Patient did not respond [facility]. He was 50 lbs above his EDW. His fluid retention limited his physical activities and ADL's * L wrist AVF created by Dr. Leon 08/04/21 - not yet mature for use * R IJ THC placed 08/[address] Leon. 1st HD 08/13/21 * Patient appears euvolemic and electrolyte balance is acceptable. No acute indication for HD today * Plan HD Monday followed by transfer back to [facility]. HD orders have been placed in EMR and HD RN notified * Case management working on arrangements for outpatient dialysis * Continue Bumex 2 mg po BID to help encourage diuresis in between dialysis treatments (2) Anemia: Plan: * Epogen 84833 units provided 08/13 * Will provide Epogen 83301 w/ HD tomorrow (3) Hypertension: Plan: * BP improved following UF Admission and Anticipated Discharge Date Admission Date: August 12, 2021 Subjective Mr. Swartz was evaluated in his hospital room this morning. He has been bed bound due to his Achilles tendon repair. He c/o back spasms. rn staffing has supplied a heating pad and administered analgesics this morning Review of Systems Constitutional: no fever Eyes: no problem reported Ear, Nose, Mouth, Throat: no problem reported Respiratory: no cough and no dyspnea Cardiovascular: no chest pain, no palpitations and no edema Gastrointestinal: no abdominal pain, no nausea, no vomiting and no diarrhea/loose stools Musculoskeletal: no back pain Integumentary: no rash Neurologic: no confusion Physical Exam Constitutional: + obese; not in distress Eyes: PERRL, conjunctivae normal, anicteric sclerae ENMT: external ear and nose normal, oropharynx normal Neck: trachea midline, no thyromegaly Respiratory: normal respiratory effort, lungs clear to auscultation Cardiovascular: RRR, no murmur, no edema Gastrointestinal (Abdomen): normal bowel sounds, soft, nontender, no hepatosplenomegaly Skin: no rashes, warm and dry Neurologic: awake; not confused Results & Data ([facility]) Vital Signs (Past 12 Hours) Vital Signs Temp Pulse Resp BP Pulse Ox 10/10/21 07:24 36.6 C 60 16 135/64 96 08/21/21 23:40 37.0 C 63 20 153/75 H 96 Laboratory Results CBC, PRP - PENDING PG Care Time/CCT Total # of Minutes Spent Total Time Spent with Patient: Total time spent is greater than 50% in coordination of care (as documented) at patient's floor/unit and/or counseling patient: Coding Level of Care Code 19495 Subseq Hosp Care Lvl 3 Diagnoses Need for acute hemodialysis Z99.2 Anemia D64.9 Hypertension I10
--- NOTE | 2021-08-22 20:13 | Hospitalist Progress Note ---
Date of Service August 22, 2021 Assessment & Plan (1) CHF (congestive heart failure): Plan: - Refractory and resistant to diuretic management - Symptoms mostly right right sided (with edema of the legs/scrotum/abd/and even the face) - AV fistula placed on 08/03 but not mature (which I can not feel vibration today. Will obtain stat doppler to r/o thrombosis and if noted, consult Vascular tomorrow) - Vascular surgery Placed tunneled permcath on 08/13 - Nephrology on board. Patient is s/p HD on 08/13/21 and 08/14. Nepro managing hypervolumic state - Case was D/W Nephro: add Bumex back, keep zaroxolyn and add aldactone - Epogen 20,000 units and IV Venofer per nephrology - Seems to be responding favorably to treatment. I's and O's documented do not seem accurate--> weight down 20 lbs - dispo likely complicated-- see below (2) Stage 4 chronic kidney disease due to diabetes mellitus: Plan: - Although creatinine not terrible, patient with stage IV CKD and volume overload resistant to diuretic therapy - Creatinine actually better than baseline (which is 2.0-2.5) and likely due to current volume overload - Nephrology on board -appreciate recommendations. - youth manager has been consulted to help with referral for outpatient dialysis. Apparently patient from [facility] who may not have an agreement with [facility] dialysis. Patient may need transfer to a different facility. This is uncertain at this point but case management working on - Awaiting for placement. (3) Anemia: Plan: - chronic and not far from baseline - suspect anemia of chronic disease from CKD - Epogen and Venofer given - noted to be on ASA BID (likely DVT prophylaxis given recent achilles tendon repair which was 30 days ago). Change to once a day and watch labs closely. (4) Venous stasis dermatitis: Plan: - Patient initially placed on antibiotic therapy upfront prep possible cellulitis. - He was afebrile with a normal white blood cell count. Procalcitonin negative. - Appears more consistent with stasis dermatitis. - Antibiotic therapy has been stopped. - still no fever or leukocytosis -now in walking boot. will need to ask ortho if he can bear weight (5) Superficial venous thrombosis of arm: Plan: - Right arm and likely from [facility] IV ([facility]) - No treatment needed. Staff may utilize K pad if needed (6) Hypertension: Plan: -Continue Cardura, metoprolol as prior to hospitalization -Tolerating hemodialysis. No hypotension. (7) WHIT (obstructive sleep apnea): Plan: -Continue CPAP (8) HLD (hyperlipidemia): Plan: -Continue statin therapy and fish oil (9) Diabetes: Plan: -Continue Lantus/log -Follow blood sugars closely and correct with sliding scale Plan: Disposition: Pending placement. Likely will be placed until Monday. Admission and Anticipated Discharge Date Admission Date: August 12, 2021 Subjective Patient reports no new symptoms. Review of Systems Review of Systems: All systems reviewed & are unremarkable except as noted in HPI & below Physical Exam Physical Exam: General: Resting comfortably in his hospital bed. NAD. HEENT:l mucosa is moist and pink Neck: No JVD. Negative hepatojugular reflex Cardiac: Very distant heart sounds without obvious murmur Lungs: Speaking full sentences on supplemental oxygen without W/R/R Abdomen: Normoactive X4. Abdomen difficult to examine due to habitus. (-) JVD extremities: 2+ pitting edema of the left lower extremities but overall improved. Right leg with walking boot. Neuro: A&O X4 cranial nerves II through XII are grossly intact no focal neuro deficits Skin: No obvious skin lesions or rashes Psych: Appropriate affect pleasant and cooperative Results & Data Results & Data ([facility]) Vital Signs (Past 12 Hours) Vital Signs Temp Pulse Resp BP Pulse Ox 08/22/21 15:27 36.9 C 62 18 116/62 94 PG Care Time/CCT Total # of Minutes Spent Total Time Spent with Patient: Total time spent is greater than 50% in coordination of care (as documented) at patient's floor/unit and/or counseling patient: Coding Level of Care Code 54644 Subseq Hosp Care Lvl 2 Diagnoses CHF (congestive heart failure) I50.33 Heart failure chronicity: acute on chronic Heart failure type: diastolic Stage 4 chronic kidney disease due to diabetes mellitus E11.22; N18.4 Anemia D64.9 Venous stasis dermatitis I87.2 Superficial venous thrombosis of arm I82.611 Laterality: right Hypertension I10 WHIT (obstructive sleep apnea) G47.33 HLD (hyperlipidemia) E78.5 Diabetes E11.621; L97.509; Z79.4 Diabetes mellitus complication detail: with foot ulcer Diabetes mellitus complication status: with skin complications 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: with intermodal owner operator truck driver use Diabetes mellitus type: type 2 (1) Superficial venous thrombosis of arm Laterality: right Qualified Code(s): I82.611 - Acute embolism and thrombosis of superficial veins of right upper extremity (2) Diabetes Diabetes mellitus complication detail: with foot ulcer Diabetes mellitus complication status: with skin complications Diabetes mellitus care home insulin use: with care home use Diabetes mellitus type: type 2 Qualified Code(s): E11.621 - Type 2 diabetes mellitus with foot ulcer; L97.509 - Non- pressure chronic ulcer of other part of unspecified foot with unspecified severity; Z79.4 - terminologist (current) use of insulin (3) CHF (congestive heart failure) Heart failure chronicity: acute on chronic Heart failure type: diastolic Qualified Code(s): I50.33 - Acute on chronic diastolic (congestive) heart failu re
[2021-08-22] MEDS: PANTOprazole 40 MG TAB PO SCH (20:49)
[2021-08-22] MEDS: METOPROLOL SUCC 50MG EXT REL TAB PO SCH (20:49)
[2021-08-22] MEDS: ATORVASTATIN 40 MG TAB PO SCH (20:50)
[2021-08-22] MEDS: CYANOCOBALAMIN 500 MCG TABLET (VITAMIN B-12) PO SCH (20:50)
[2021-08-22] MEDS: CHOLECALCIFEROL 1,000 UNITS 25 MCG TAB PO SCH (20:51)
[2021-08-22] MEDS: DOXAZosin MESYLATE 4 MG TAB PO SCH (20:52)
[2021-08-22] MEDS: OMEGA-3 (PURIFIED FISH OIL) 1 GM CAP PO SCH (20:53)
[2021-08-22] MEDS: MAGNESIUM OXIDE 400 MG TAB PO SCH (20:54)
[2021-08-22] MEDS: MELATONIN 3 MG TAB PO SCH (20:59)
[2021-08-22] MEDS ORDERED: INSULIN GLARGINE 100 UNIT/ML VIAL SC SCH (21:00)
[2021-08-23] MEDS ORDERED: HEPARIN SOD (PORCINE) 1000 UNIT/ML IV SCH (07:00)
[2021-08-23] MEDS ORDERED: HEPARIN SOD (PORCINE) 1000 UNIT/ML IV ONE (07:00)
[2021-08-23] MEDS ORDERED: SODIUM CHLORIDE 0.9% 1000ML 1,000 ML IV PRN (07:00)
[2021-08-23] MEDS ORDERED: EPOETIN ALFA 10,000 UNITS/ML VIAL IV SCH (07:00)
[2021-08-23] MEDS: FERROUS SULFATE 325 MG TAB PO SCH (07:41)
[2021-08-23] MEDS: GABAPENTIN 600 MG TAB PO SCH ×2 (07:42→13:06)
[2021-08-23] MEDS: ASCORBIC ACID 500 MG TAB PO SCH (07:42)
[2021-08-23] MEDS: ASPIRIN 81 MG ECTAB PO SCH (07:42)
[2021-08-23] MEDS: NEPHROCAPS PO SCH (07:42)
[2021-08-23] MEDS: FLUTICASONE PROPIONATE NA SPR 16 GM BTL SCH (07:43)
[2021-08-23] MEDS: oxyCODONE HCL IR 5 MG TAB (IMMEDIATE RELEASE) PO PRN ×2 (07:44→12:27)
[2021-08-23] MEDS: MUPIROCIN 2% OINT 22 GM TUBE EXT SCH ×2 (07:52→13:07)
[2021-08-23 08:08] LABS: Hematocrit (blood only) 30.2 % (42-52); Hemoglobin 9.9 g/dL (14.0-18.0); Mean Corpuscular Hemoglobin 29.7 pg (25-34); Mean Corpuscular Hgb Conc 32.8 g/dL (32-36); Mean Corpuscular Volume 90.7 fL (80-100); Mean Platelet Volume 9.3 fL (7.4-10.4); Platelet Count 280 K/uL (130-400); RDW Coefficient of Variation 13.8 % (11.5-14.5); RDW Standard Deviation 45.4 fL (36.4-46.3); Red Blood Count 3.33 M/uL (4.7-6.1)
[2021-08-23 08:27] LABS: BUN Creatinine Ratio 26.7 (10-20); Calcium 8.9 mg/dl (8.5-10.1); Creatinine Clr Calc Pharmacy 52.4 ml/min; Est GFR (African American) 42.8 ml/min; Est GFR (Non-African American) 36.9 ml/min; Potassium 4.4 mmol/L (3.5-5.1)
[2021-08-23] MEDS: INSULIN ASPART 100 UNITS/ML 3 ML PEN SC SCH ×2 (09:31→13:04)
[2021-08-23] MEDS: INSULIN GLARGINE 100 UNIT/ML VIAL SC SCH (09:33)
--- NOTE | 2021-08-23 10:17 | Nephrology Progress Note ---
Date of Service August 23, 2021 Assessment & Plan (1) Need for acute hemodialysis: Plan: * HD initiated due to CRS and repeated hospitalization for volume overload requiring high dose IV diuretic therapy * Patient did not respond to IV diuretic therapy provided at shelter. He was 50 lbs above his EDW. His fluid retention limited his physical activities and ADL's * Following volume unloading w/ HD, Mr. Swartz is now diuresing on his own and creatinine is trending down. He appears clinically euvolemic * Will stop HD and pursue medical management * Continue Bumex 2 mg po BID * Patient to be transferred to [facility] today. I have spoken w/ [facility] and hospitalist group. Recommend transfer back to shelter w/ heplock in place for next 72 hours. Monitor I&O, weight closely (hospital weights highly variable, will need weight upon arrival at [facility]). Continue oral Bumex and supplement w/ IV if patient fails oral therapy. Follow up Nephrology outpatient visit scheduled for 2 weeks * L wrist AVF created by Dr. Leon 08/04/21 - not yet mature for use * R IJ THC placed 08/[address] Leon. 1st HD 08/13/21 (2) Anemia: Plan: * Epogen 26045 units provided 08/13 * Will provide Epogen 44671 SQ x 1 this am (3) Hypertension: Plan: * BP improved following UF Admission and Anticipated Discharge Date Admission Date: August 12, 2021 Subjective Mr. Swartz was evaluated in his hospital room this morning. He was last dialyzed Monday. Over the weekend UO has been > 1L each day. Cr has improved from 3.0 to 1.98. Mr. Swartz reports that his LE swelling has resolved. He is breathing comfortably on RA. He denies uremic symptoms Review of Systems Constitutional: no fever Eyes: no problem reported Ear, Nose, Mouth, Throat: no problem reported Respiratory: no cough and no dyspnea Cardiovascular: no chest pain, no palpitations and no edema Gastrointestinal: no abdominal pain, no nausea, no vomiting and no diarrhea/loose stools Musculoskeletal: no back pain Integumentary: no rash Neurologic: no confusion Physical Exam Constitutional: + obese; not in distress Eyes: PERRL, conjunctivae normal, anicteric sclerae ENMT: external ear and nose normal, oropharynx normal Neck: trachea midline, no thyromegaly Respiratory: normal respiratory effort, lungs clear to auscultation Cardiovascular: RRR, no murmur, no edema Gastrointestinal (Abdomen): normal bowel sounds, soft, nontender, no hepatosplenomegaly Skin: no rashes, warm and dry Neurologic: awake; not confused Results & Data ([facility]) Vital Signs (Past 12 Hours) Vital Signs Temp Pulse Resp BP Pulse Ox 08/23/21 07:06 36.5 C 65 16 128/61 95 Laboratory Results Laboratory Tests 08/23/21 08/23/21 07:31 07:31 WBC 6.70 Hgb 9.9 L Hct 30.2 L Plt Count 280 Sodium 135 L Potassium 4.4 Chloride 101 Carbon Dioxide 27 BUN 53 H Creatinine 1.98 H Glucose 172 H PG Care Time/CCT Total # of Minutes Spent Total Time Spent with Patient: Total time spent is greater than 50% in coordination of care (as documented) at patient's floor/unit and/or counseling patient: Coding Level of Care Code 60848 Subseq Hosp Care Lvl 3 Diagnoses Need for acute hemodialysis Z99.2 Anemia D64.9 Hypertension I10
[2021-08-23] MEDS ORDERED: EPOETIN ALFA 10,000 UNITS/ML VIAL SQ SCH (10:30)
--- NOTE | 2021-08-23 19:16 | Discharge Summary ---
Date of Service August 23, 2021 Admission HPI Per Admitting Provider The patient is a 56-year-old male with a past medical history including superficial venous thrombosis of arm, rupture of right Achilles tendon status post surgery on 07/16/2021, left heel ulcer, hypertension, hyperlipidemia, WHIT, obesity, proteinuria, stage IV CKD due to diabetes mellitus, elevated LFTs, chronic anemia, diabetic gastroparesis, right foot ulcer, osteomyelitis of left foot, morbid obesity, hypertension, dyslipidemia, diastolic CHF and diabetes mellitus. Patient presents to the emergency department as noted above. Principal Diagnosis Fluid overload Discharge Data Allergies Allergy/AdvReac Type Severity Reaction Status Date / Time hydralazine Allergy Mild Rash Verified 08/12/21 20:28 Calcium Channel Blocking Allergy Rash, Verified 08/12/21 20:28 Agent Dilt swelling semaglutide [From Ozempic] Allergy Unknown Verified 08/12/21 20:28 amitriptyline AdvReac Mild Muscle Verified 08/12/21 20:28 twitching Consultations 08/12/21 22:36 ED Decision to Admit Stat 08/13/21 01:30 Consult Nephrology Routine Consult Vascular Surgery Routine Procedures Performed Operation Date: 08/13/21 09:10 Actual Procedures p Insertion of Perm Catheter, Right Internal Jugular Approach, Ultrasound Localization of Right Internal Jugular Vein, Fluroscopy for Positioning, Moderate Sedation [id number](Right) - Dimitry Leon MD Ordered Studies 08/13/21 08:58 EV cvc insrt tunnel wo 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 Stable for return to SNF with close vigilancepossibly need for ongoing IV diureticswe will try with p.o. for now. And can always resume dialysis treatment if needed. Greatly appreciate nephrology input. In discussion with nephrologysomething on the order of 60 po unds of fluid was taken off during this hospital stay. (2) Stage 4 chronic kidney disease due to diabetes mellitus: -See aboverequired dialysis as an inpatient, but now that he has been offloaded he may not require ongoing dialysis chronically just yet. (3) Anemia: - chronic and not far from baseline - suspect anemia of chronic disease from CKD - Epogen and Venofer given -Follow periodically (4) Venous stasis dermatitis: - Patient initially placed on antibiotic therapy upfront prep possible cellulitis. - He was afebrile with a normal white blood cell count. Procalcitonin negative. - Appears more consistent with stasis dermatitis. (5) Superficial venous thrombosis of arm: - Right arm and likely from recent IV (6) Hypertension: Discharge on current med list, follow blood pressure at [facility] (7) WHIT (obstructive sleep apnea): -Continue CPAP (8) HLD (hyperlipidemia): -Continue statin therapy and fish oil (9) Diabetes: -Continue insulin management at [facility] Disposition: For [place] care, ongoing PT/OT, ongoing Ortho follow-up for his Achilles tendon rupture from a month ago, ongoing vigilance as it relates to his fluid overload/fluid status and severe CKD Total Time Total Time Spent Total Time Spent (In Minutes): Less than 30 Discharge Plan Discharge Items Patient Disposition: Transfer Long Term Fac Reason For Visit: FLUID OVERLOAD, NEEDS DIALYSIS Discharge Diagnosis: fluid overload Activity: Resume your previous activity Activity Comment: ongoing PT/OT as before Non-emergency contact: Primary Care Provider, Surgeon and Auto Garage Mechanic Call non-emergency contact if: you have any medication questions and your symptoms worsen Follow-up/Referrals: [place] [Primary Care Provider] - Diet: Dialysis Renal and Low Sodium (2gm) Addtl Attending Provider Instructions: today's assessment and plan from nephrology: (1) Need for acute hemodialysis: Plan: HD initiated due to CRS and repeated hospitalization for volume overload requiring high dose IV diuretic therapy Patient did not respond to IV diuretic therapy provided at group home. He was 50 lbs above his EDW. His fluid retention limited his physical activities and ADL's Following volume unloading w/ HD, Mr. Swartz is now diuresing on his own and creatinine is trending down. He appears clinically euvolemic Will stop HD and pursue medical management Continue Bumex 2 mg po BID Patient to be transferred to [facility] today. I have spoken w/ [facility] MD and hospitalist group. Recommend transfer back to group home w/ heplock in place for next 72 hours. Monitor I&O, weight closely (hospital weights highly variable, will need weight upon arrival at [facility]). Continue oral Bumex and supplement w/ IV if patient fails oral therapy. Follow up Nephrology outpatient visit scheduled for 2 weeks L wrist AVF created by Dr. Leon 08/04/21 - not yet mature for use R IJ THC placed 08/[address] Leon. 1st HD 08/13/21 (2) Anemia: Plan: Epogen 74695 units provided 08/13 Will provide Epogen 20721 SQ x 1 this am (3) Hypertension: Plan: BP improved following UF please check BMP tomorrow (08/24) then periodically/as clinically warranted. may be able to decrease or d/c metolazone as well depending on volume status and progress Pending Studies at Discharge: No Stand-Alone Forms: My [facility] Skilled Items Patient informed of condition?: No DNR: No Discharge Level of Care: Skilled Communicable Disease: No Discharge Prognosis: Stable Lines: Peripheral IV Urinary Catheter: No Medications and DC Order Prescriptions: Continued mupirocin 2 % ointment 1 applic topical TID RF: 0 bumetanide 2 mg tablet 2 mg PO BID RF: 0 doxycycline hyclate 100 mg tablet 100 mg PO BID RF: 0 doxazosin 4 mg tablet 4 mg PO HS RF: 0 melatonin 10 mg capsule 10 mg PO HS RF: 0 polyethylene glycol 3350 17 gram/dose powder 17 gm PO BID PRN (Reason: constipation) Qty: 510 RF: 5 magnesium oxide 400 mg Capsule 400 mg PO HS RF: 0 atorvastatin 80 mg Tablet 80 mg PO QPM RF: 0 metoprolol succinate 50 mg Tablet Extended Release 24 Hr 150 mg PO QPM RF: 0 omeprazole 20 mg Capsule,Delayed Release(Dr/Ec) 20 mg PO QPM Qty: 0 RF: 0 gabapentin 600 mg tablet 600 mg PO TID RF: 0 Humulin R U-500 (Conc) Insulin 500 unit/mL Solution 50 unit subcut TIDM RF: 0 Lantus Solostar U-100 Insulin 100 unit/mL (3 mL) Insulin Pen 50 unit SUBCUT HS RF: 0 omega 4-dbf-kzk-fish oil [Fish Oil] 1,000 mg (120 mg-180 mg) Capsule 1 cap PO QPM RF: 0 cholecalciferol (vitamin D3) [Vitamin D3] 25 mcg (1,000 unit) tablet,chewable 2,000 units PO QPM RF: 0 fluticasone propionate [Flonase Allergy Relief] 50 mcg/actuation [place],Suspension 1 spray INTRANASAL BID RF: 0 ferrous sulfate 325 mg (65 mg iron) tablet 325 mg PO QAM RF: 0 magnesium hydroxide [Milk of Magnesia] 400 mg/5 mL Suspension 15 ml PO DAILY PRN (Reason: Constipation) RF: 0 insulin lispro [Humalog U-100 Insulin] 100 unit/mL Solution 8 - 18 sliding scale dose SUBCUT USEASDIRECTD RF: 0 oxycodone-acetaminophen [Percocet] 5-325 mg tablet 1 tab PO Q6H PRN (Reason: pain) Qty: 10 RF: 0 metolazone 5 mg Tablet 5 mg PO BID RF: 0 acetaminophen [Tylenol Extra Strength] 500 mg Tablet 1,000 mg PO TID PRN (Reason: Pain) RF: 0 ascorbic acid (vitamin C) 500 mg Tablet 500 mg PO BID RF: 0 Multivitamin 50 Plus Tablet 1 tab PO QAM RF: 0 cyanocobalamin (vitamin B-12) 1,000 mcg Tablet 1,000 mcg PO HS RF: 0 bisacodyl 10 mg Suppository 10 mg OR DAILY PRN (Reason: Constipation) RF: 0 hydroxyzine HCl 25 mg Tablet 25 mg PO Q6 PRN (Reason: Itching) RF: 0 aspirin 81 mg Tablet,Delayed Release (Dr/Ec) 81 mg PO BID 30 Days Qty: 60 RF: 0 oxycodone 5 mg Tablet 5 mg PO Q4H MDD 6 PRN (Reason: pain) Qty: 18 RF: 0 Discontinued bumetanide 0.25 mg/mL Solution 3 mg IM BID RF: 0 furosemide 10 mg/mL solution 60 mg PO BID RF: 0 Discharge Orders: Discharge Order (Routine); Ordered 08/23/21 Ordered By: Favian Maria/Other Patient Handouts: A1C, Managing Type 2 Diabetes Admission Data Admit Date/Time: 08/12/21 23:40 Attending Provider: Favian Au Admit Provider: Davis Atkins Primary Care Provider: [place] Other Providers: [facility] ; Sherman Rose ; [facility] ; Davis Atkins ; Jostin Alvarez ; Dimitry Leon ; Naveen Fowler Other Interventions: Discharge Summary Assessment (RN) Last Done: 08/23/21 11:54 Coding Level of Care Code D/C DAY MANAGEMENT <30 MINS Diagnoses CHF (congestive heart failure) I50.33 Heart failure type: diastolic Heart failure chronicity: acute on chronic Stage 4 chronic kidney disease due to diabetes mellitus E11.22; N18.4 Anemia D64.9 Venous stasis dermatitis I87.2 Superficial venous thrombosis of arm I82.611 Laterality: right Hypertension I10 WHIT (obstructive sleep apnea) G47.33 HLD (hyperlipidemia) E78.5 Diabetes E11.621; L97.509; Z79.4 Diabetes mellitus type: type 2 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
[2021-08-23] MEDS ORDERED: BUMETANIDE 1 MG TAB PO SCH (21:00)
--- NOTE | 2021-08-31 09:22 | Coding Query ---
CODING QUERY To promote full compliance with coding requirements relating to patient care, provider participation is requested in all cases of seamer operator uncertainty. Please assist us with the question(s) below: Coding Question(s): Patient admitted with CHF/CKD and AV fistula . Progress notes document Stage IV CKD; 's consult note documents CKD /End Stage. Pt had tunnelled catheter inserted during this admission Please document, if known or suspected, the stage of the Chronic Kidney failure for this IP admission. Thanks for your help! Jorge Macdonald [facility] Physician's Response(s): odd situation where it looked like he had progressed to esrd, but once his volume was offloaded, he improved to stage IV CKD Principal Diagnosis: "that condition established after study, to be chiefly responsible for occasioning the admission of the patient to the hospital for care." Co-Existing Principal Diagnosis: "when two or more diagnoses equally meet the criteria for principal diagnosis as determined by the circumstances of admission, diagnostic work up, and/or therapy provided, and the Alphabetic Index, Tabular List, or another coding guideline does not provide sequencing direction, any one of the diagnoses may be sequenced first." "When the physician has documented what appears to be a current diagnosis in the body of the record, but has not included the diagnosis in the final diagnostic statement, the physician should be asked whether the diagnosis should be added." (Source Coding Clinic 2 QTR90. p3-4) DELVIS
== END 2021-08-23 14:44 | DRG 291 ==
LOC: ED 16:21 → EDINP 23:40 → SUATTDRO 23:40 → 2S 08-13 01:29 → 3N 08-18 14:46

== ENCOUNTER 2022-05-10 17:52 | Observation (INO) ==
--- NOTE | 2022-05-10 18:50 | Emergency Department Note ---
History of Present Illness General Chief complaint: Swelling/Edema to Extremity Stated complaint: SENT BY SOPHIA AGUIRRE FLUID, SWOLLEN Time Seen by Provider: 05/10/22 18:19 History of Present Illness Provider complaint: Leg swelling abnormal labs Onset (ago): unknown (Chronic) Location: lower extremity, left and right Radiation: non-radiation Severity: mild Pain Consistency: + constant Maximum Pain Intensity: 2 Relieved By: + none Exacerbated By: + movement Associated symptoms: + shortness of breath; no chest pain, no cough, no fever/chills, no headaches or no nausea/vomiting 56-year-old male with history of CHF and CKD presents emergency department for bilateral lower extremity swelling and abnormal labs. Patient states that he has chronic bilateral lower extremity swelling and that this to be gone for chronic long time. He states he feels like he is fluid overloaded. Patient reports shortness of breath with exertion. No chest pain. Patient states he wa s sent by his [facility] physician who told him his kidney function was low. Home Medications Medication Instructions Recorded Confirmed Type atorvastatin 80 mg tablet 80 mg PO QPM 08/02/18 04/14/22 History magnesium oxide 400 mg PO HS 08/02/18 04/14/22 History metoprolol succinate 50 mg 150 mg PO QPM 08/02/18 04/14/22 History tablet,extended release 24 hr omeprazole 20 mg capsule,delayed 20 mg PO QPM #0 cap 08/14/19 04/14/22 Rx release cholecalciferol (vitamin D3) 25 2,000 units PO QPM tab 11/19/19 04/14/22 History mcg (1,000 unit) chewable tablet (Vitamin D3) gabapentin 600 mg tablet 600 mg PO TID 12/06/19 04/14/22 History polyethylene glycol 3350 17 17 gm PO BID PRN #510 gm 12/23/19 04/14/22 Rx gram/dose oral powder fluticasone propionate 50 1 spray INTRANASAL BID 05/05/20 04/14/22 History mcg/actuation nasal spray,suspension (Flonase Allergy Relief) doxazosin 4 mg tablet 4 mg PO HS 10/01/20 04/14/22 History melatonin 10 mg capsule 10 mg PO HS 05/17/21 04/14/22 History magnesium hydroxide 400 mg/5 mL 15 ml PO DAILY PRN 07/28/21 04/14/22 History oral suspension (Milk of Magnesia) acetaminophen 500 mg tablet 1,000 mg PO TID PRN 08/08/21 04/14/22 History (Tylenol Extra Strength) ascorbic acid (vitamin C) 500 mg 500 mg PO BID 08/08/21 04/14/22 History tablet uudodsqlwseb-fbhboayq-rjtzox 1 tab PO QAM 08/08/21 04/14/22 History tablet (Multivitamin 50 Plus) bisacodyl 10 mg rectal suppository 10 mg OR DAILY PRN 08/11/21 04/14/22 History cyanocobalamin (vitamin B-12) 1,000 mcg PO HS 08/11/21 04/14/22 History 1,000 mcg tablet hydroxyzine HCl 25 mg tablet 25 mg PO Q6 PRN 08/11/21 04/14/22 History mupirocin 2 % topical ointment 1 applic TOPICAL TID 08/12/21 02/07/22 History aspirin 81 mg capsule 81 mg PO Q12 cap 09/21/21 04/14/22 History metolazone 5 mg tablet 5 mg PO BID #180 tab 10/28/21 04/14/22 Rx insulin regular hum U-500 conc 500 See Rx Instructions .ROUTE .COMPLEX 11/17/21 04/14/22 History unit/mL subcutaneous soln (Humulin R U-500 (Concentrated) Insulin) insulin glargine 100 unit/mL (3 50 unit SUBCUT HS ml 12/20/21 04/14/22 History mL) subcutaneous pen (Lantus Solostar U-100 Insulin) prednisone 5 mg tablet 5 mg PO DAILY 12/20/21 04/14/22 History ferrous sulfate 325 mg (65 mg 325 mg PO Q OTHER DAY tab 02/04/22 04/14/22 History iron) tablet allopurinol 300 mg tablet 600 mg PO DAILY tab 04/14/22 04/14/22 History bumetanide 2 mg tablet 4 mg PO BID tab 04/14/22 History omega 3-zns-hgh-fish oil 1,000 mg 1 cap PO TID cap 04/14/22 04/14/22 History (120 mg-180 mg) capsule (Fish Oil) Allergies Allergy/AdvReac Type Severity Reaction Status Date / Time hydralazine Allergy Mild Rash Verified 05/10/22 21:34 Calcium Channel Blocking Allergy Rash, Verified 05/10/22 21:34 Agent Dilt swelling semaglutide [From Ozempic] Allergy Abdominal Verified 05/10/22 21:34 Pain amitriptyline AdvReac Mild Muscle Verified 05/10/22 21:34 twitching Past Med/Surg History Medical History Chronic back pain Chronic diastolic congestive heart failure Chronic kidney disease Plan for possible dialysis in the future (under surveillance), will be placing fistula in near future preventatively Depression Diabetes IDDM Diastolic CHF Dyslipidemia GERD (gastroesophageal reflux disease) Hypertension Migraine Morbid obesity Osteoarthritis Sleep apnea CPAP Temporomandibular joint disorder Occasional clicking, no locking Surgical History History of Achilles tendon repair Right Achilles repair (07/16/21): Grade 2 view, MAC#3, ETT 7.5 + PNB at [facility] History of incision and drainage Left foot multiple with skin graft (total of 5) Left foot I&D (10/08/20): LMA#5 at [facility] Left foot I&D, Stimulan beads (02/12/21): MAC at [facility] History of open reduction and internal fixation (ORIF) procedure Left ankle Bimalleolar Fracture (11/2019) History of placement of ear tubes Right ear History of tonsillectomy and adenoidectomy Hx of cataract surgery R/L Hx of colonoscopy [place] teeth extracted Family History Father Diabetes Mother Diabetes Other Coronary heart disease Hypertension No family history of adverse response to anesthesia Denies family history of Crohn's disease Kidney disease Colorectal cancer Ulcerative colitis Social History Smoking Status: Former smoker Tobacco Type: Cigarettes Second Hand Exposure: Yes; Hx Alcohol Use: Yes Alcohol type: beer Hx Substance Use: No Preferred Language: Tajik Communication Ability: Effective Parent Aide Required: No Beliefs That Will Affect Care: None marital status: Current Living Situation: Spouse Current Living Situation Comment: resides with huma current occupational status: employed 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 Former Feels Safe at Home: Yes Assistive Devices: Cane, Glasses, Special Shoe and Walker Review of Systems A total of 10 systems reviewed and were otherwise negative Physical Exam Vital Signs Vital Signs - 24 hr 05/10/22 18:07 05/10/22 18:48 05/10/22 19:15 Temperature 36.9 C Temperature Source Temporal Artery Scan Pulse Rate 73 Pulse Rate [Apical] 69 Respiratory Rate 20 18 Respiratory Effort / Characteristics Non-Labored Non-Labored Spontaneous Respiratory Depth Normal Normal Respiratory Pattern Regular Blood Pressure 132/56 L Blood Pressure [Right Arm] 105/76 Blood Pressure Mean 81 Blood Pressure Mean [Right Arm] 85 Blood Pressure Position Sitting Pulse Oximetry 95 93 Oxygen Delivery Method Room Air Room Air Room Air Sepsis Recent Fever Within 48 Hours No Sepsis New/Unexplained Change in Mental Status No Sepsis Action Taken by Nursing No Action Required Physical Exam GENERAL: He is oriented to person, place, and time. He appears well-developed and well-nourished. He does not appear distressed. HENT: Exam performed. - Head: Normocephalic and atraumatic. - Right Ear: External ear normal. No mastoid tenderness. - Left Ear: External ear normal. No mastoid tenderness. - Mouth/Throat: The oropharynx is clear and moist. No trismus in the jaw. No dental abscesses or uvula swelling. No oropharyngeal exudate or tonsillar abscesses. EYES: Conjunctivae and EOM are normal. Pupils are equal, round, and reactive to light. Right eye exhibits no discharge. Left eye exhibits no discharge. No scleral icterus. NECK: Normal range of motion. Neck supple. No JVD present. No spinous process tenderness present. No carotid bruit present. No rigidity. No tracheal deviation and normal range of motion present. No Brudzinski's sign and no Kernig's sign noted. CV: Normal rate, regular rhythm, normal heart sounds and intact distal pulses. Palpable radial pulses bue. PULM/CHEST: Rales inspiratory at the bases bilaterally ABD: The abdomen is soft. Bowel sounds are normal. He has no distension. No mass is present. There is no tenderness. There is no rebound, no guarding, no Mur phy's sign and no tenderness at McBurney's point. Rovsig negative. MUSC/SKEL: Normal range of motion. 4+ pitting edema of the bilateral lower extremities. NEURO: He is alert and oriented to person, place, and time. He has normal strength. No cranial nerve deficit or sensory deficit. Coordination and gait normal. GCS eye subscore is 4. GCS verbal subscore is 5. GCS motor subscore is 6. Cerebellar tests wnl. SKIN: Skin is warm and dry. He is not diaphoretic. PSYCH: He has a normal mood and affect. Behavior is normal. Judgment and thought content normal. Course Course 1818: The patient was evaluated in room A2. A complete history and physical exam was performed Cardiac monitoring: An order was placed for continuous cardiac monitoring. The monitor shows a rate of 70 with sinus rhythm 2004: Vital signs stable. 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 Earlier in the month the patient's BUN was 46 and 56 and his creatinine was 2.0 and 2.3 on April 30 and May 03 respectively. Today the patient's chest x-ray shows cardiomegaly but no overt pulmonary edema. Labs show a BUN of 88 and creatinine of 2.58. Troponin negative. proBNP elevated 205. Patient treated with Lasix 40 mg IV push [facility]. Administered Medications Discontinued Medications Furosemide (Furosemide 40 Mg/4 Ml Vial) 40 mg IV ONE ONE Stop: 05/10/22 20:02 Last Admin: 05/10/22 20:15 Dose: 40 mg Documented by: [id number] Medical Decision Making Laboratory Data Result diagrams: 05/10/22 19:02 05/10/22 19:02 Lab Results 05/10/22 05/10/22 05/10/22 Range/Units 18:58 19:02 19:02 WBC 9.09 (4.8-10.8) K/uL RBC 3.69 L (4.7-6.1) M/uL Hgb 12.0 L (14.0-18.0) g/dL Hct 35.7 L (42-52) % MCV 96.7 (80-100) fL MCH 32.5 (25-34) pg MCHC 33.6 (32-36) g/dL RDW Std Deviation 49.1 H (36.4-46.3) fL RDW Coeff of Diane 14.0 (11.5-14.5) % Plt Count 172 (130-400) K/uL MPV 10.5 H (7.4-10.4) fL Immature Gran % (Auto) 0.2 % Neut % (Auto) 69.5 % Lymph % (Auto) 17.5 % [place] % (Auto) 5.6 % Eos % (Auto) 6.8 % Baso % (Auto) 0.4 % Neut # (Auto) 6.31 (1.4-6.5) K/uL Lymph # (Auto) 1.59 (1.2-3.4) K/uL [place] # (Auto) 0.51 (0.11-0.59) K/uL Eos # (Auto) 0.62 H (0-0.5) K/uL Baso # (Auto) 0.04 (0-0.2) K/uL Immature Gran # (Auto) 0.02 (0.00-0.02) K/uL Sodium 134 L (136-145) mmol/L Potassium 3.2 L (3.5-5.1) mmol/L Chloride 84 L (98-107) mmol/L Carbon Dioxide 39 H (21-32) mmol/L Anion Gap 11 (3-11) BUN 88 H (6-23) mg/dl Creatinine 2.58 H (0.6-1.4) mg/dl Est Cr Clr Drug Dosing 42.2 ml/min Est GFR ( Amer) 31.1 ml/min Est GFR (Non-Af Amer) 26.8 ml/min BUN/Creatinine Ratio 34.1 H (10-20) Glucose 293 H (70-99(Fasting)) mg/dl Calcium 8.7 (8.5-10.1) mg/dl Magnesium (1.7-2.4) mg/dl Total Bilirubin 0.7 (0.2-1.0) mg/dl AST 16 (13-39) U/L ALT 17 (7-52) U/L Alkaline Phosphatase 75 (34-104) U/L Troponin I High Sens 13.6 (0-20) pg/ml B-Natriuretic Peptide (0-100) pg/ml Total Protein 7.4 (6.0-8.3) gm/dl Albumin 4.1 (3.4-5.0) gm/dl Globulin 3.3 (2.5-4.0) gm/dl Albumin/Globulin Ratio 1.2 (0.9-2) Lipase 33 (11-82) U/L SARS-CoV-2, RNA, NAAT NEGATIVE (NEGATIVE) 05/10/22 05/10/22 Range/Units 19:02 19:02 WBC (4.8-10.8) K/uL RBC (4.7-6.1) M/uL Hgb (14.0-18.0) g/dL Hct (42-52) % MCV (80-100) fL MCH (25-34) pg MCHC (32-36) g/dL RDW Std Deviation (36.4-46.3) fL RDW Coeff of Diane (11.5-14.5) % Plt Count (130-400) K/uL MPV (7.4-10.4) fL Immature Gran % (Auto) % Neut % (Auto) % Lymph % (Auto) % [place] % (Auto) % Eos % (Auto) % Baso % (Auto) % Neut # (Auto) (1.4-6.5) K/uL Lymph # (Auto) (1.2-3.4) K/uL [place] # (Auto) (0.11-0.59) K/uL Eos # (Auto) (0-0.5) K/uL Baso # (Auto) (0-0.2) K/uL Immature Gran # (Auto) (0.00-0.02) K/uL Sodium (136-145) mmol/L Potassium (3.5-5.1) mmol/L Chloride (98-107) mmol/L Carbon Dioxide (21-32) mmol/L Anion Gap (3-11) BUN (6-23) mg/dl Creatinine (0.6-1.4) mg/dl Est Cr Clr Drug Dosing ml/min Est GFR ( Amer) ml/min Est GFR (Non-Af Amer) ml/min BUN/Creatinine Ratio (10-20) Glucose (70-99(Fasting)) mg/dl Calcium (8.5-10.1) mg/dl Magnesium 1.8 (1.7-2.4) mg/dl Total Bilirubin (0.2-1.0) mg/dl AST (13-39) U/L ALT (7-52) U/L Alkaline Phosphatase (34-104) U/L Troponin I High Sens (0-20) pg/ml B-Natriuretic Peptide 205 H (0-100) pg/ml Total Protein (6.0-8.3) gm/dl Albumin (3.4-5.0) gm/dl Globulin (2.5-4.0) gm/dl Albumin/Globulin Ratio (0.9-2) Lipase (11-82) U/L SARS-CoV-2, RNA, NAAT (NEGATIVE) Imaging Data Radiologist's Impression: Chest X-Ray 05/10/22 18:20 SINGLE VIEW CHEST CLINICAL HISTORY: Atypical chest pain FINDINGS: An AP, portable, upright chest radiograph is compared to study dated 08/13/2021. Correlation is made with chest CT dated 01/17/2018. The heart is enlarged. The pulmonary vasculature is noncongested. The lungs and pleural spaces are clear. No pneumothorax is seen. The bony thorax is grossly intact. IMPRESSION: Cardiomegaly with no active disease in the chest. ACT 112: Negative or not required by law. Electronically signed by: Fernando Carver M.D. 05/10/2022 6:51 PM ECG Data Indication: + SOB/dyspnea Rate (beats per minute): 69 Rhythm: + normal sinus ECG Intervals/blocks: + Right Bundle branch block, + Normal QRS, + Normal OR and + Normal QT-c ECG ST segments: + Normal ST segments ECG Findings: + LVH MDM Narrative Vital signs stable. 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 Earlier in the month the patient's BUN was 46 and 56 and his creatinine was 2.0 and 2.3 on April 30 and May 03 respectively. Today the patient's chest x-ray shows cardiomegaly but no overt pulmonary edema. Labs show a BUN of 88 and creatinine of 2.58. Troponin negative. proBNP elevated 205. Patient treated with Lasix 40 mg IV push [facility]. Impression & Plan Acute CHF, Chronic kidney disease Discharge Plan Visit Data Chief Complaint: Swelling/Edema to Extremity Stated Complaint: SENT BY DR, RETAINING FLUID, SWOLLEN ED Provider: Samy Rodriguez Discharge Problem: Acute CHF, Chronic kidney disease Patient Disposition: Being Evaluated by Hospitalist Forms Stand Alone Forms: My [facility] Prescriptions Prescriptions: No Action mupirocin 2 % ointment 1 applic topical TID RF: 0 aspirin 81 mg capsule 81 mg PO Q12 RF: 0 doxazosin 4 mg tablet 4 mg PO HS RF: 0 melatonin 10 mg capsule 10 mg PO HS RF: 0 allopurinol 300 mg tablet 600 mg PO DAILY RF: 0 polyethylene glycol 3350 17 gram/dose powder 17 gm PO BID PRN (Reason: constipation) Qty: 510 RF: 5 metolazone 5 mg tablet 5 mg PO BID Qty: 180 RF: 3 Lantus Solostar U-100 Insulin 100 unit/mL (3 mL) insulin pen 50 unit subcut HS RF: 0 prednisone 5 mg tablet 5 mg PO DAILY RF: 0 bumetanide 2 mg tablet 4 mg PO BID RF: 0 magnesium oxide 400 mg Capsule 400 mg PO HS RF: 0 atorvastatin 80 mg Tablet 80 mg PO QPM RF: 0 metoprolol succinate 50 mg Tablet Extended Release 24 Hr 150 mg PO QPM RF: 0 omeprazole 20 mg Capsule,Delayed Release(Dr/Ec) 20 mg PO QPM Qty: 0 RF: 0 gabapentin 600 mg tablet 600 mg PO TID RF: 0 Humulin R U-500 (Conc) Insulin 500 unit/mL solution See Rx Instructions .ROUTE .COMPLEX RF: 0 omega 7-tny-avz-fish oil [Fish Oil] 1,000 mg (120 mg-180 mg) capsule 1 cap PO TID RF: 0 cholecalciferol (vitamin D3) [Vitamin D3] 25 mcg (1,000 unit) tablet,chewable 2,000 units PO QPM RF: 0 fluticasone propionate [Flonase Allergy Relief] 50 mcg/actuation [place],Suspension 1 spray INTRANASAL BID RF: 0 ferrous sulfate 325 mg (65 mg iron) tablet 325 mg PO Q OTHER DAY RF: 0 magnesium hydroxide [Milk of Magnesia] 400 mg/5 mL Suspension 15 ml PO DAILY PRN (Reason: Constipation) RF: 0 acetaminophen [Tylenol Extra Strength] 500 mg Tablet 1,000 mg PO TID PRN (Reason: Pain) RF: 0 ascorbic acid (vitamin C) 500 mg Tablet 500 mg PO BID RF: 0 Multivitamin 50 Plus Tablet 1 tab PO QAM RF: 0 cyanocobalamin (vitamin B-12) 1,000 mcg Tablet 1,000 mcg PO HS RF: 0 bisacodyl 10 mg Suppository 10 mg OR DAILY PRN (Reason: Constipation) RF: 0 hydroxyzine HCl 25 mg Tablet 25 mg PO Q6 PRN (Reason: Itching) RF: 0 Referrals Referrals: Marbella Membreno PA-C [Primary Care Provider] -
--- NOTE | 2022-05-10 18:52 | XRay Report ---
SINGLE VIEW CHEST CLINICAL HISTORY: Atypical chest pain FINDINGS: An AP, portable, upright chest radiograph is compared to study dated 08/13/2021. Correlation is made with chest CT dated 01/17/2018. The heart is enlarged. The pulmonary vasculature is noncongest ed. The lungs and pleural spaces are clear. No pneumothorax is seen. The bony thorax is grossly intac t. IMPRESSION: Cardiomegaly with no active disease in the chest. ACT 112: Negative or not required by law. Electronically signed by: Fernando Carver M.D. 05/10/2022 6:51 PM
[2022-05-10 19:27] LABS: Basophils # (auto) 0.04 K/uL (0-0.2); Basophils % (auto) 0.4 %; Eosinophils # (auto) 0.62 K/uL (0-0.5); Eosinophils % (auto) 6.8 %; Hematocrit (blood only) 35.7 % (42-52); Immature Granulocytes # (auto) 0.02 K/uL (0.00-0.02); Immature Granulocytes % (auto) 0.2 %; Lymphocytes # (auto) 1.59 K/uL (1.2-3.4); Lymphocytes % (auto) 17.5 %; Mean Corpuscular Hemoglobin 32.5 pg (25-34); Mean Corpuscular Hgb Conc 33.6 g/dL (32-36); Mean Corpuscular Volume 96.7 fL (80-100); Mean Platelet Volume 10.5 fL (7.4-10.4); Monocytes # (auto) 0.51 K/uL (0.11-0.59); Monocytes % (auto) 5.6 %; Neutrophils # (auto) 6.31 K/uL (1.4-6.5); Neutrophils % (auto) 69.5 %; Platelet Count 172 K/uL (130-400); RDW Standard Deviation 49.1 fL (36.4-46.3); Red Blood Count 3.69 M/uL (4.7-6.1); White Blood Count 9.09 K/uL (4.8-10.8)
[2022-05-10 19:52] LABS: Albumin Globulin Ratio 1.2 (0.9-2); Albumin Level 4.1 gm/dl (3.4-5.0); BUN Creatinine Ratio 34.1 (10-20); Bilirubin,Total 0.7 mg/dl (0.2-1.0); Calcium 8.7 mg/dl (8.5-10.1); Creatinine Clr Calc Pharmacy 42.2 ml/min; Est GFR (African American) 31.1 ml/min; Est GFR (Non-African American) 26.8 ml/min; Globulin 3.3 gm/dl (2.5-4.0); Potassium 3.2 mmol/L (3.5-5.1); Total Protein 7.4 gm/dl (6.0-8.3)
[2022-05-10 19:57] LABS: Troponin I High Sensitivity 13.6 pg/ml (0-20)
[2022-05-10] MEDS ORDERED: FUROSEMIDE 40 MG/4 ML VIAL IV ONE (20:01)
--- NOTE | 2022-05-10 20:38 | History & Physical Report ---
Date of Service May 10, 2022 Assessment & Plan (1) Acute kidney injury superimposed on chronic kidney disease: Plan: Reid Swartz is a 56yo male with PMHx that includes CKD4 (baseline Cr ~2), s/p AV fistula placement (in 01/2022, not on HD yet), T2DM (A1c 7.7 in 08/2021), chronic HFpEF (EF 55-60% with grade II diastolic dysfunction as of 05/2021), gout (on daily Prednisone), peripheral neuropathy, chronic venous stasis dermatitis, HTN, HLD and GERD who was sent to [facility] ED on 05/10 by [facility] health physician for COSMO. COSMO on CKD4 Cr 2.58, BUN 88. Baseline Cr ~2. Patient is hypovolemic on exam. In context of recent increased diuretic regimen - suspect that COSMO is 2/2 to this. - patient given Lasix 40mg IV x1 in the ED - hold further diuretics, including all home diuretics - hold home Allopurinol - start 1/2 maintenance IVFs with NSS + 20mEq KCl @90cc/hr (x1L) - hold nephrotoxic medications - trend BMP in AM Electrolyte Abnormalities Na 132, K 3.2, with hypochloremia and alkalosis --> contraction alkalosis due to diuretics. - hold further diuretics as stated above - gave KCl 60mEq PO now - continue with potassium-containing IVFs as stated above - trend BMP in AM Chronic LE Edema Previous diagnosed with HFpEF, with last EF 55-60% with grade II diastolic dysfunction as of 05/2021. Patient follows with HF clinic ([facility]) - last seen in 04/2022 and current thoughts are this represents hypervolemia (lower extremities) rather than true heart failure. - CXR with chronic cardiomegaly but no signs of vascular congestion - BNP ~200 - no diuretics as stated above - ordered TTE as last was one year ago and patient will be lightly rehydrated - continue home magnesium Venous stasis dermatitis: chronic, with non-healing cut on right LE. Wound care. Chronic Normocytic Anemia: Hgb 12 today (baseline 10-11). Suspect some degree of hemoconcentration in setting of above. Chronic anemia likely due to chronic disease (CKD). T2DM: insulin-dependent, last A1c 7.7 in 08/2021. Repeat A1c ordered for tomorrow AM. Basal bolus BID + SSI while hospitalized. HTN/HLD: continue home baby Aspirin BID, Doxazosin, and Metoprolol Gout: hold Allopurinol, continue Prednisone 5mg PO daily Peripheral Neuropathy: continue home Gabapentin Iron deficiency: continue ferrous sulfate QOD GERD: Protonix per hospital formulary FEN/GI: DM2/heart-healthy diet; NSS + 20mEq KCl @90cc/hr (x1L) DVT Prophylaxis: home Aspirin 81mg PO BID Code Status: full code Disposition: med/tele (2) Diabetes: (3) Hypertension: (4) Hyponatremia: (5) Hypokalemia: (6) Anemia: (7) Venous stasis dermatitis: (8) HLD (hyperlipidemia): (9) Gastroparesis: History of Present Illness Chief Complaint: LE edema Primary Care Provider: Marbella Membreno PA-C Reid Swartz is a 56yo male with PMHx that includes CKD4 (baseline Cr ~2), s /p AV fistula placement (in 01/2022, not on HD yet), T2DM (A1c 7.7 in 08/2021), chronic HFpEF (EF 55-60% with grade II diastolic dysfunction as of 05/2021), gout (on daily Prednisone), peripheral neuropathy, chronic venous stasis dermatitis, HTN, HLD and GERD who was sent to [facility] ED on 05/10 by [facility] home health physician for concerns of COSMO. Of note patient's PCP is with [place], chief transfer and pumphouse operator/engineering manager with [facility], vascular surgeon with [facility], and chronic home health services with [facility] (due to "back-up insurance). One week ago patient was told by home health aide that his legs look more swollen; of note patient has not had SOB, dyspnea on exertion, orthopnea or PND. However his home health [facility] physician started him on IV Lasix in addition to his daily regimen of Bumex and Metolazone. His prescribed doses on several days leading up to this ED presentation were as high as 200mg IV daily. Patient does report unhealthy dietary choices due to financial difficulties, but his PO intake has been stable. He tries to restrict his fluid intake as instructed by Bookkeeper Assistant and Tracing Lathe Set Up Operator. No recent illnesses. No fever/chills, chest pain, SOB, cough, N/V, abdominal kane n, or new rash. Does have chronic venous stasis dermatitis. No alcohol/smoking/drug use. Is able to ambulate with a cane. Proficient in ADLs and most iADLs. In the ED patient was hemodynamically stable on room air. Labs significant for Hgb 12.0 (baseline 10-11), Na 134, K 3.2, Cl 84, HCO3 39, BUN 88, Cr 2.58. BNP 205 (no previous). CXR with chronic cardiomegaly but no signs of vascular congestion. Patient was given Lasix 40mg IV x1 in ED. Allergies Allergy/AdvReac Type Severity Reaction Status Date / Time hydralazine Allergy Mild Rash Verified 05/10/22 21:34 Calcium Channel Blocking Allergy Rash, Verified 05/10/22 21:34 Agent Dilt swelling semaglutide [From Ozempic] Allergy Abdominal Verified 05/10/22 21:34 Pain amitriptyline AdvReac Mild Muscle Verified 05/10/22 21:34 twitching Home Medications Medication Instructions Recorded Confirmed Type atorvastatin 80 mg tablet 80 mg PO QPM 08/02/18 05/10/22 History magnesium oxide 400 mg PO HS 08/02/18 05/10/22 History metoprolol succinate 50 mg 150 mg PO QPM 08/02/18 05/10/22 History tablet,extended release 24 hr omeprazole 20 mg capsule,delayed 20 mg PO QPM #0 cap 08/14/19 05/10/22 Rx release cholecalciferol (vitamin D3) 25 2,000 units PO QPM tab 11/19/19 05/10/22 History mcg (1,000 unit) chewable tablet (Vitamin D3) gabapentin 600 mg tablet 600 mg PO TID 12/06/19 05/10/22 History polyethylene glycol 3350 17 17 gm PO BID PRN #510 gm 12/23/19 05/10/22 Rx gram/dose oral powder fluticasone propionate 50 1 spray INTRANASAL BID 05/05/20 05/10/22 History mcg/actuation nasal spray,suspension (Flonase Allergy Relief) doxazosin 4 mg tablet 4 mg PO HS 10/01/20 05/10/22 History melatonin 10 mg capsule 10 mg PO HS 05/17/21 05/10/22 History magnesium hydroxide 400 mg/5 mL 15 ml PO DAILY PRN 07/28/21 05/10/22 History oral suspension (Milk of Magnesia) acetaminophen 500 mg tablet 1,000 mg PO TID PRN 08/08/21 05/10/22 History (Tylenol Extra Strength) ascorbic acid (vitamin C) 500 mg 500 mg PO BID 08/08/21 05/10/22 History tablet xpqgtenjjlyd-mukeulwb-vovzoz 1 tab PO QAM 08/08/21 05/10/22 History tablet (Multivitamin 50 Plus) bisacodyl 10 mg rectal suppository 10 mg VT DAILY PRN 08/11/21 05/10/22 History cyanocobalamin (vitamin B-12) 1,000 mcg PO HS 08/11/21 05/10/22 History 1,000 mcg tablet hydroxyzine HCl 25 mg tablet 25 mg PO Q6 PRN 08/11/21 05/10/22 History mupirocin 2 % topical ointment 1 applic TOPICAL TID PRN 08/12/21 05/10/22 History aspirin 81 mg capsule 81 mg PO Q12 cap 09/21/21 05/10/22 History metolazone 5 mg tablet 5 mg PO BID #180 tab 10/28/21 05/10/22 Rx insulin regular hum U-500 conc 500 See Rx Instructions .ROUTE .COMPLEX 11/17/21 05/10/22 History unit/mL subcutaneous soln (Humulin R U-500 (Concentrated) Insulin) insulin glargine 100 unit/mL (3 50 unit SUBCUT HS ml 12/20/21 05/10/22 History mL) subcutaneous pen (Lantus Solostar U-100 Insulin) prednisone 5 mg tablet 5 mg PO DAILY 12/20/21 05/10/22 History ferrous sulfate 325 mg (65 mg 325 mg PO Q OTHER DAY tab 02/04/22 05/10/22 History iron) tablet allopurinol 300 mg tablet 750 mg PO DAILY tab 04/14/22 05/10/22 History bumetanide 2 mg tablet 4 mg PO BID tab 04/14/22 05/10/22 History omega 1-ekv-jcr-fish oil 1,000 mg 2 cap PO BID cap 04/14/22 05/10/22 History (120 mg-180 mg) capsule (Fish Oil) Past Med/Surg History Medical History Chronic back pain Chronic diastolic congestive heart failure Chronic kidney disease Plan for possible dialysis in the future (under surveillance), will be placing fistula in near future preventatively Depression Diabetes IDDM Diastolic CHF Dyslipidemia GERD (gastroesophageal reflux disease) Hypertension Migraine Morbid obesity Osteoarthritis Sleep apnea CPAP Temporomandibular joint disorder Occasional clicking, no locking Surgical History History of Achilles tendon repair Right Achilles repair (07/16/21): Grade 2 view, MAC#3, ETT 7.5 + PNB at [facility] History of incision and drainage Left foot multiple with skin graft (total of 5) Left foot I&D (10/08/20): LMA#5 at [facility] Left foot I&D, Stimulan beads (02/12/21): MAC at [facility] History of open reduction and internal fixation (ORIF) procedure Left ankle Bimalleolar Fracture (11/2019) History of placement of ear tubes Right ear History of tonsillectomy and adenoidectomy Hx of cataract surgery R/L Hx of colonoscopy [place] teeth extracted Family History Father Diabetes Mother Diabetes Other Coronary heart disease Hypertension No family history of adverse response to anesthesia Denies family history of Crohn's disease Kidney disease Colorectal cancer Ulcerative colitis Social History Smoking Status: Former smoker Tobacco Type: Cigarettes Smoking End Date: 2010; Second Hand Exposure: Yes; Tobacco Cessation Education Requested by Patient: No Hx Alcohol Use: Yes Alcohol type: beer Hx Substance Use: No Preferred Language: Colombian Communication Ability: Effective Human Resources Services Specialist Required: No Beliefs That Will Affect Care: None marital status: Current Living Situation: Spouse Current Living Situation Comment: resides with huma current occupational status: employed 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 [employer]. Former Other Information That Helps Us Care for You: No Feels Safe at Home: Yes Safety Concerns: Feels Safe At This Time Assistive Devices: Cane, CPAP and Glasses Review of Systems Review of Systems: All systems reviewed & are unremarkable except as noted in HPI & below Physical Exam Physical Exam: General: A&Ox3. NAD. Cooperative. HEENT: Atraumatic, normocephalic. Pulm: CTAB A&P. -wheezes, -rales, -rhonchi. Symmetrical chest rise. No increase work of breathing. No respiratory distress. Cardiac: RRR, -mrg. Radial pulses intact and symmetrical. Non-pitting LE edema to knees (chronic per patient) Abdominal: soft, protuberant (chronic) but non-tender, BS x 4 Skin: chronic LE venous stasis dermatitis with compression stockings in place Results & Data Results & Data ([facility]) Vital Signs (Past 12 Hours) Vital Signs Temp Pulse Pulse Resp BP BP Pulse Ox 05/10/22 19:15 69 18 105/76 93 05/10/22 18:07 36.9 C 73 20 132/56 L 95 Supervising Physician Co-Signing Physician Notes Attending addendum: I have physically seen this patient, have supervised the medical residents activities, and agree with the H&P unless as otherwise noted. Assessment and Plan: Acute kidney injury on CKD stage IV creatinine 2.58 upon admission, with baseline around 2 Hold any further Lasix, after being given Lasix 40 mg IV from the ED Placed on IV fluids as noted Follow serial BMP and magnesium levels Chronic lower extremity edema- Most recent EF 55-60% on 06/02 Order echocardiogram to reassess Chronic venous insufficiency with venous stasis dermatitis noted Wound care Remaining orders and notations as noted Resident Activity Tracking Resident Involvement: Resident Care Provided Care Provided: Adult Hospital Medicine (1) Diabetes Diabetes mellitus complication detail: with foot ulcer Diabetes mellitus complication status: with skin complications Diabetes mellitus tank terminal gauger insulin use: with chcf use Diabetes mellitus type: type 2 Qualified Code(s): E11.621 - Type 2 diabetes mellitus with foot ulcer; L97.509 - Non- pressure chronic ulcer of other part of unspecified foot with unspecified severity; Z79.4 - long-term (current) use of insulin
[2022-05-10] MEDS ORDERED: NSS + 20MEQ KCL 20 MEQ/1,000 ML BAG IV SCH (20:45)
[2022-05-10] MEDS ORDERED: POTASSIUM CHLORIDE CRTAB 20 MEQ TABCR PO STA (20:45)
[2022-05-10] MEDS ORDERED: GLUCOSE 10 TABS/TUBE PO PRN (21:59)
[2022-05-10] MEDS ORDERED: GLUCAGON FOR INJ 1 MG VIAL SQ PRN (21:59)
[2022-05-10] MEDS ORDERED: MAGNESIUM HYDROXIDE SUSP 30 ML UDC PO PRN (21:59)
[2022-05-10] MEDS ORDERED: ACETAMINOPHEN 500 MG TAB PO PRN (21:59)
[2022-05-10] MEDS ORDERED: GLUCOSE 40% GEL 15 GM TUBE PO PRN (21:59)
[2022-05-10] MEDS ORDERED: CARBOHYDRATES FOR HYPOGLYCEMIA PO PRN (21:59)
[2022-05-10] MEDS ORDERED: hydrOXYzine HCl 25 MG TAB PO PRN (21:59)
[2022-05-10] MEDS ORDERED: PANTOprazole 40 MG TAB PO SCH (21:59)
[2022-05-10] MEDS ORDERED: POLYETHYLENE (MIRALAX) 17 GM PACK PO PRN (21:59)
[2022-05-10] MEDS ORDERED: DEXTROSE 50% 50 ML SYRINGE IV PRN (21:59)
[2022-05-10] MEDS ORDERED: MELATONIN 3 MG TAB PO PRN (22:10)
[2022-05-10] MEDS: ATORVASTATIN 40 MG TAB PO SCH (22:34)
[2022-05-10] MEDS: CYANOCOBALAMIN (B-12) 500 MCG TABLET PO SCH (22:35)
[2022-05-10] MEDS: GABAPENTIN 600 MG TAB PO SCH (22:35)
[2022-05-10] MEDS: CHOLECALCIFEROL 1,000 UNITS 25 MCG TAB PO SCH (22:35)
[2022-05-10] MEDS: MAGNESIUM OXIDE 400 MG TAB PO SCH (22:36)
[2022-05-10] MEDS: PANTOprazole 40 MG TAB PO SCH (22:37)
[2022-05-10] MEDS: ASPIRIN 81 MG ECTAB PO SCH (22:37)
[2022-05-10] MEDS: METOPROLOL SUCC 50MG EXT REL TAB PO SCH (22:38)
[2022-05-10] MEDS: INSULIN GLARGINE SOLOSTAR 100 UNITS/ML 3 ML PEN SC SCH (22:49)
[2022-05-10] MEDS: INSULIN ASPART PER UNIT SC SCH (22:50)
[2022-05-10] MEDS: DOXAZosin MESYLATE 4 MG TAB PO SCH (23:03)
--- NOTE | 2022-05-11 04:25 | Billing Data ---
Date of Service May 11, 2022 Coding Level of Care Code INT OBSERVATION CARE 70M LVL 3
[2022-05-11] MEDS: FERROUS SULFATE 325 MG TAB PO SCH (08:26)
[2022-05-11] MEDS: ASPIRIN 81 MG ECTAB PO SCH ×2 (08:26→21:12)
[2022-05-11] MEDS: GABAPENTIN 600 MG TAB PO SCH ×3 (08:26→21:13)
[2022-05-11] MEDS: predniSONE 5 MG TAB PO SCH (08:26)
[2022-05-11] MEDS: INSULIN GLARGINE SOLOSTAR 100 UNITS/ML 3 ML PEN SC SCH ×2 (08:27→21:12)
[2022-05-11] MEDS: INSULIN ASPART PER UNIT SC SCH ×4 (08:27→21:11)
[2022-05-11] MEDS ORDERED: MAGNESIUM SULFATE / D5W 1 GM/100 ML BAG IV ONE (08:45)
[2022-05-11] MEDS ORDERED: POTASSIUM CHLORIDE CRTAB 20 MEQ TABCR PO STA (08:45)
--- NOTE | 2022-05-11 10:03 | Electrocardiogram Report ---
Test Reason : Blood Pressure : / mmHG Vent. Rate : 069 BPM Atrial Rate : 069 BPM P-R Int : 184 ms QRS Dur : 096 ms QT Int : 452 ms P-R-T Axes : 028 -47 031 degrees QTc Int : 484 ms Poor data quality, interpretation may be adversely affected Normal sinus rhythm Incomplete right bundle branch block Left anterior fascicular block Poor R wave progression, consider anterior IL vs. lead placement vs. LVH Abnormal ECG When compared with ECG of 25-MAY-2021 16:18, No significant change was found Confirmed by Chintan Castillo ([id number]) on 05/11/2022 10:02:52 AM Referred By: REFERRED SELF Confirmed By:Chintan Castillo
--- NOTE | 2022-05-11 10:14 | XCELERA ---
[id number]
[2022-05-11 10:24] LABS: Basophils # (auto) 0.03 K/uL (0-0.2); Basophils % (auto) 0.4 %; Eosinophils # (auto) 0.51 K/uL (0-0.5); Eosinophils % (auto) 6.2 %; Hemoglobin 11.4 g/dL (14.0-18.0); Immature Granulocytes # (auto) 0.01 K/uL (0.00-0.02); Immature Granulocytes % (auto) 0.1 %; Mean Corpuscular Hemoglobin 31.9 pg (25-34); Mean Corpuscular Hgb Conc 32.6 g/dL (32-36); Mean Platelet Volume 10.6 fL (7.4-10.4); Monocytes # (auto) 0.51 K/uL (0.11-0.59); Monocytes % (auto) 6.2 %; Neutrophils # (auto) 5.31 K/uL (1.4-6.5); Neutrophils % (auto) 64.1 %; Platelet Count 172 K/uL (130-400); RDW Coefficient of Variation 13.9 % (11.5-14.5); RDW Standard Deviation 49.2 fL (36.4-46.3); Red Blood Count 3.57 M/uL (4.7-6.1); White Blood Count 8.27 K/uL (4.8-10.8)
[2022-05-11 10:43] LABS: Anion Gap 12 (3-11); BUN Creatinine Ratio 36.4 (10-20); Blood Urea Nitrogen 83 mg/dl (6-23); Calcium 8.8 mg/dl (8.5-10.1); Carbon Dioxide 38 mmol/L (21-32); Chloride 87 mmol/L (98-107); Est GFR (African American) 36.1 ml/min; Est GFR (Non-African American) 31.1 ml/min; Glucose 206 mg/dl (70-99(Fasting)); Magnesium 1.8 mg/dl (1.7-2.4); Sodium 137 mmol/L (136-145)
[2022-05-11 12:24] LABS: Estimated Average Glucose 194 mg/dl; Hemoglobin A1C 8.4 % (4.5-5.6)
[2022-05-11] MEDS ORDERED: INSULIN HUMAN REGULAR PER UNIT 10 UNITS in SYRINGE 9.9 ML IV STA (15:37)
--- NOTE | 2022-05-11 15:42 | Hospitalist Progress Note ---
Date of Service May 11, 2022 Assessment & Plan (1) Acute kidney injury superimposed on chronic kidney disease: Plan: Reid Swartz is a 56yo male with PMHx that includes CKD4 (baseline Cr ~2), s/p AV fistula placement (in 01/2022, not on HD yet), T2DM (A1c 7.7 in 08/2021), chronic HFpEF (EF 55-60% with grade II diastolic dysfunction as of 05/2021), gout (on daily Prednisone), peripheral neuropathy, chronic venous stasis dermatitis, HTN, HLD and GERD who was sent to [facility] ED on 05/10 by [facility] health physician for COSMO. COSMO on CKD4 improving , slightly hypolalemic - hold nephrotoxic medications -stopped limited ivf - trend BMP Electrolyte Abnormalities contraction alkalosis due to diuretics. - hold further diuretics consider restart 05/12 if renal function is improving - replete potassium orally Chronic LE Edema Previous diagnosed with HFpEF, with last EF 55-60% with grade II diastolic dysfunction as of 05/2021. Patient follows with HF clinic ([facility]) - last seen in 04/2022 and current thoughts are this represents hypervolemia (lower extremities) rather than true heart failure. - CXR with chronic cardiomegaly but no signs of vascular congestion - BNP ~200 - no diuretics as stated above - continue home magnesium Echo 05/11/22 normal EF, Chronic Diastolic heart failure, chronic no sig valvular disease will have HF clinic follow while here Venous stasis dermatitis: chronic, with non-healing cut on right LE. Wound care. Chronic Normocytic Anemia: Hgb 12 today (baseline 10-11). Suspect some degree of hemoconcentration in setting of above. Chronic anemia likely due to chronic disease (CKD). T2DM: insulin-dependent, last A1c 7.7 in 08/2021. poor control in hospital, A1c 8.4 HTN/HLD: continue home baby Aspirin BID, Doxazosin, and Metoprolol Gout: hold Allopurinol, continue Prednisone 5mg PO daily Peripheral Neuropathy: continue home Gabapentin Iron deficiency: continue ferrous sulfate QOD GERD: Protonix per hospital formulary DVT Prophylaxis: home Aspirin 81mg PO BID Code Status: full code (2) Diabetes: (3) Hypertension: (4) Hyponatremia: (5) Hypokalemia: (6) Anemia: (7) Venous stasis dermatitis: (8) HLD (hyperlipidemia): (9) Gastroparesis: Admission and Anticipated Discharge Date Admission Date: May 10, 2022 Subjective pt is fatigued and tired, sleeping with nasal bipap on, comments on red legs likely is sunburn, cosmo likely from being outside in sun and increased outpt diu retics, having issues with elevated glucoses at this time Review of Systems Review of Systems: Mild distress and significant fatigue no headache, no visual changes no speech or swallowing issues no chest pain, pressure or palpitations no shortness of breath, cough or wheezes no abdominal pain, nausea or vomiting, diarrhea or constipation no dysuria, hematuria or frequency no focal joint pain or swelling no back pain, CVA tenderness or radicular pain no bruising, bleeding or rashes no focal signs of weakness or numbness or altered sensation no complaints of anxiety or depression.. Physical Exam Physical Exam: The patient appeared well nourished and normally developed. he is morbidly obese, has chronic lower extremity edema Vital signs as documented. Head exam is normocephalic atraumatic Neck is without JVD, thyromegaly, or carotid bruits. Lungs are clear to auscultation, no focal loss of breath sounds Cardiac exam, Rhythm is regular.. No murmurs, rubs or gallops. Abdominal exam reveals normal bowel sounds, soft non tender, no masses Extremities are nonedematous and both pedal pulses are present Neurologic exam is alert and oriented, no focal loss of strength or sensation Skin is without bruises or rashes Psychologically is without concerns frustration about readmission. Results & Data Results & Data ([facility]) Vital Signs (Past 12 Hours) Vital Signs Temp Pulse Pulse Resp BP Pulse Ox 05/11/22 14:27 68 05/11/22 12:00 97.9 F 64 20 112/55 L 92 05/11/22 06:13 64 05/11/22 04:30 98.2 F 70 18 122/45 L 90 PG Care Time/CCT Total # of Minutes Spent Total Time Spent with Patient: Total time spent is greater than 50% in coordination of care (as documented) at patient's floor/unit and/or counseling patient: Coding Level of Care Code 95876 Subseq Hosp Care Lvl 2 Diagnoses Acute kidney injury superimposed on chronic kidney disease N17.9; N18.9 Diabetes E11.621; L97.509; Z79.4 Diabetes mellitus type: type 2 Diabetes mellitus termite exterminator insulin use: with custodial use Diabetes mellitus complication status: with skin complications Diabetes mellitus complication detail: with foot ulcer Hypertension I10 Hyponatremia E87.1 Hypokalemia E87.6 Anemia D64.9 Venous stasis dermatitis I87.2 HLD (hyperlipidemia) E78.5 Gastroparesis K31.84 (1) Diabetes Diabetes mellitus type: type 2 Diabetes mellitus custodial insulin use: with custodial use Diabetes mellitus complication status: with skin complications Diabetes mellitus complication detail: with foot ulcer Qualified Code(s): E11.621 - Type 2 diabetes mellitus with foot ulcer; L97.509 - Non-pressure chronic ulcer of other part of unspecified foot with unspecified severity; Z79.4 - half-way (current) use of insulin
[2022-05-11] MEDS ORDERED: INSULIN GLARGINE SOLOSTAR 100 UNITS/ML 3 ML PEN SC SCH (21:00)
[2022-05-11] MEDS: ATORVASTATIN 40 MG TAB PO SCH (21:13)
[2022-05-11] MEDS: METOPROLOL SUCC 50MG EXT REL TAB PO SCH (21:13)
[2022-05-11] MEDS: DOXAZosin MESYLATE 4 MG TAB PO SCH (21:14)
[2022-05-11] MEDS: PANTOprazole 40 MG TAB PO SCH (21:14)
[2022-05-11] MEDS: CYANOCOBALAMIN (B-12) 500 MCG TABLET PO SCH (21:14)
[2022-05-11] MEDS: MAGNESIUM OXIDE 400 MG TAB PO SCH (21:14)
[2022-05-11] MEDS: CHOLECALCIFEROL 1,000 UNITS 25 MCG TAB PO SCH (21:15)
[2022-05-12] MEDS: INSULIN GLARGINE SOLOSTAR 100 UNITS/ML 3 ML PEN SC SCH (08:15)
[2022-05-12] MEDS: ASPIRIN 81 MG ECTAB PO SCH ×2 (08:15→21:20)
[2022-05-12] MEDS: GABAPENTIN 600 MG TAB PO SCH ×3 (08:15→21:19)
[2022-05-12] MEDS: predniSONE 5 MG TAB PO SCH (08:15)
[2022-05-12] MEDS: INSULIN ASPART PER UNIT SC SCH ×4 (08:16→21:16)
[2022-05-12 09:15] LABS: Anion Gap 11 (3-11); BUN Creatinine Ratio 34.1 (10-20); Blood Urea Nitrogen 74 mg/dl (6-23); Calcium 9.3 mg/dl (8.5-10.1); Carbon Dioxide 36 mmol/L (21-32); Chloride 88 mmol/L (98-107); Creatinine Clr Calc Pharmacy 50.5 ml/min; Est GFR (African American) 38.3 ml/min; Est GFR (Non-African American) 33.1 ml/min; Glucose 334 mg/dl (70-99(Fasting)); Sodium 135 mmol/L (136-145)
[2022-05-12] MEDS ORDERED: INSULIN HUMAN REGULAR PER UNIT 10 UNITS in SYRINGE 9.9 ML IV STA (11:21)
[2022-05-12 11:45] LABS: Urea Nitrogen, Random Urine 317 mg/dL
[2022-05-12] MEDS: POTASSIUM CHLORIDE CRTAB 20 MEQ TABCR PO SCH ×2 (12:18→21:18)
[2022-05-12] MEDS ORDERED: ALBUMIN 25% 100 mL 25 GM/100 ML VIAL IV ONE (12:26)
[2022-05-12] MEDS ORDERED: FUROSEMIDE 40 MG/4 ML VIAL IV ONE (12:27)
--- NOTE | 2022-05-12 16:12 | Hospitalist Progress Note ---
Date of Service May 12, 2022 Assessment & Plan (1) Acute kidney injury superimposed on chronic kidney disease: Plan: Reid Swartz is a 56yo male with PMHx that includes CKD4 (baseline Cr ~2), s/p AV fistula placement (in 01/2022, not on HD yet), T2DM (A1c 7.7 in 08/2021), chronic HFpEF (EF 55-60% with grade II diastolic dysfunction as of 05/2021), gout (on daily Prednisone), peripheral neuropathy, chronic venous stasis dermatitis, HTN, HLD and GERD who was sent to [facility] ED on 05/10 by [facility] health physician for COSMO. COSMO on CKD4 improving , slightly hypolalemic -since is stable will start some diuretics as is significantly over his dry weight will use albumin followed by lasix and follow weights Electrolyte Abnormalities contraction alkalosis due to diuretics. - replete potassium Chronic LE Edema Previous diagnosed with HFpEF, with last EF 55-60% with grade II diastolic dysfunction as of 05/2021. Patient follows with HF clinic ([facility]) - last seen in 04/2022 and current thoughts are this represents hypervolemia (lower extremities) rather than true heart failure. - CXR with chronic cardiomegaly but no signs of vascular congestion - BNP ~200 -resume diuretics if good result with albumin will repeat try one dose today - continue home magnesium Echo 05/11/22 normal EF, Chronic Diastolic heart failure, chronic no sig valvular disease will have HF clinic follow while here Venous stasis dermatitis: chronic, with non-healing cut on right LE. Wound care. Chronic Normocytic Anemia: Hgb stable (baseline 10-11). Suspect some degree of hemoconcentration in setting of above. Chronic anemia likely due to chronic disease (CKD). T2DM: insulin-dependent, last A1c 7.7 in 08/2021. poor control in hospital, A1c 8.4 HTN/HLD: continue home baby Aspirin BID, Doxazosin, and Metoprolol Gout: hold Allopurinol, continue Prednisone 5mg PO daily Peripheral Neuropathy: continue home Gabapentin Iron deficiency: continue ferrous sulfate QOD GERD: Protonix per hospital formulary DVT Prophylaxis: home Aspirin 81mg PO BID Code Status: full code (2) Diabetes: (3) Hypertension: (4) Hyponatremia: (5) Hypokalemia: (6) Anemia: (7) Venous stasis dermatitis: (8) HLD (hyperlipidemia): (9) Gastroparesis: Admission and Anticipated Discharge Date Admission Date: May 10, 2022 Subjective pt feels improved but still has significant le edema, has less shortness of breath with exertion Review of Systems Review of Systems: Mild distress and fatigue no headache, no visual changes no speech or swallowing issues no chest pain, pressure or palpitations dyspnea on exertion no cough or wheezes no abdominal pain, nausea or vomiting, diarrhea or constipation no dysuria, hematuria or frequency no focal joint pain Significant lower extremity erythema is likely from sunburn rather than an chronic venous stasis changes but not infection no back pain, CVA tenderness or radicular pain no bruising, bleeding or rashes no focal signs of weakness or numbness or altered sensation no complaints of anxiety or depression.. Physical Exam Physical Exam: The patient appeared well nourished and normally developed. Vital signs as documented. Head exam is normocephalic atraumatic Neck is without JVD, thyromegaly, or carotid bruits. Lungs are clear to auscultation, but diminished at the bases Cardiac exam, Rhythm is regular.. No murmurs, rubs or gallops. Abdominal exam reveals normal bowel sounds, soft non tender, no masses Extremities are 2-3+edematous and both pedal pulses are present Neurologic exam is alert and oriented, no focal loss of strength or sensation Skin is with sunburn to legs and chronic venous stasis changes Psychologically is without concerns for anxiety or depression.. Results & Data Results & Data ([facility]) Vital Signs (Past 12 Hours) Vital Signs Temp Pulse Pulse Resp BP Pulse Ox 05/12/22 15:56 98.2 F 68 20 147/69 H 93 05/12/22 14:19 73 05/12/22 11:03 98.2 F 67 18 174/80 H 90 05/12/22 06:33 97.9 F 71 20 147/64 H 94 05/12/22 06:09 73 PG Care Time/CCT Total # of Minutes Spent Total Time Spent with Patient: Total time spent is greater than 50% in coordination of care (as documented) at patient's floor/unit and/or counseling patient: Coding Level of Care Code 33761 Subseq Hosp Care Lvl 2 Diagnoses Acute kidney injury superimposed on chronic kidney disease N17.9; N18.9 Diabetes E11.621; L97.509; Z79.4 Diabetes mellitus type: type 2 Diabetes mellitus terminal block assembler insulin use: with terminal block assembler use Diabetes mellitus complication status: with skin complications Diabetes mellitus complication detail: with foot ulcer Hypertension I10 Hyponatremia E87.1 Hypokalemia E87.6 Anemia D64.9 Venous stasis dermatitis I87.2 HLD (hyperlipidemia) E78.5 Gastroparesis K31.84 (1) Diabetes Diabetes mellitus type: type 2 Diabetes mellitus terminal block assembler insulin use: with chcf use Diabetes mellitus complication status: with skin complications Diabetes mellitus complication detail: with foot ulcer Qualified Code(s): E11.621 - Type 2 diabetes mellitus with foot ulcer; L97.509 - Non-pressure chronic ulcer of other part of unspecified foot with unspecified severity; Z79.4 - long-term (current) use of insulin
[2022-05-12] MEDS ORDERED: INSULIN GLARGINE 100 UNIT/ML VIAL SC SCH (21:00)
[2022-05-12] MEDS: ATORVASTATIN 40 MG TAB PO SCH (21:18)
[2022-05-12] MEDS: CHOLECALCIFEROL 1,000 UNITS 25 MCG TAB PO SCH (21:18)
[2022-05-12] MEDS: CYANOCOBALAMIN (B-12) 500 MCG TABLET PO SCH (21:19)
[2022-05-12] MEDS: DOXAZosin MESYLATE 4 MG TAB PO SCH (21:19)
[2022-05-12] MEDS: MAGNESIUM OXIDE 400 MG TAB PO SCH (21:20)
[2022-05-12] MEDS: METOPROLOL SUCC 50MG EXT REL TAB PO SCH (21:20)
[2022-05-12] MEDS: PANTOprazole 40 MG TAB PO SCH (21:20)
[2022-05-12] MEDS ORDERED: rOPINIRole HCL 0.25 MG TABLET PO SCH (22:00)
[2022-05-13] MEDS: ASPIRIN 81 MG ECTAB PO SCH (08:27)
[2022-05-13] MEDS: POTASSIUM CHLORIDE CRTAB 20 MEQ TABCR PO SCH (08:27)
[2022-05-13] MEDS: GABAPENTIN 600 MG TAB PO SCH ×2 (08:27→15:08)
[2022-05-13] MEDS: predniSONE 5 MG TAB PO SCH (08:27)
[2022-05-13] MEDS: FERROUS SULFATE 325 MG TAB PO SCH (08:27)
[2022-05-13 08:45] LABS: BUN Creatinine Ratio 36.7 (10-20); Calcium 9.6 mg/dl (8.5-10.1); Creatinine Clr Calc Pharmacy 55.3 ml/min; Est GFR (African American) 43.3 ml/min; Est GFR (Non-African American) 37.4 ml/min; Magnesium 1.9 mg/dl (1.7-2.4); Potassium 3.9 mmol/L (3.5-5.1)
[2022-05-13] MEDS: INSULIN ASPART PER UNIT SC SCH ×2 (08:48→12:09)
[2022-05-13] MEDS ORDERED: FLUTICASONE PROPIONATE NA SPR 16 GM BTL SCH ×2 (09:00)
[2022-05-13] MEDS ORDERED: LANTUS PER UNIT CHARGE SQ SCH ×2 (09:00→09:05)
[2022-05-13] MEDS ORDERED: INSULIN HUMAN REGULAR PER UNIT 10 UNITS in SYRINGE 9.9 ML IV STA (09:13)
[2022-05-13] MEDS ORDERED: ALBUMIN 25% 100 mL 25 GM/100 ML VIAL IV ONE (11:21)
[2022-05-13] MEDS ORDERED: FUROSEMIDE 40 MG/4 ML VIAL IV ONE (11:21)
[2022-05-13] MEDS ORDERED: INSULIN HUMAN NPH SC ONE (12:18)
--- NOTE | 2022-05-13 16:21 | Discharge Summary ---
Date of Service May 13, 2022 Admission HPI Per Admitting Provider Reid Swartz is a 56yo male with PMHx that includes CKD4 (baseline Cr ~2), s/p AV fistula placement (in 01/2022, not on HD yet), T2DM (A1c 7.7 in 08/2021), chronic HFpEF (EF 55-60% with grade II diastolic dysfunction as of 05/2021), gout (on daily Prednisone), peripheral neuropathy, chronic venous stasis dermatitis, HTN, HLD and GERD who was sent to [facility] ED on 05/10 by [facility] home health physician for concerns of COSMO. Of note patient's PCP is with [place], print shop chief clerk/lead web developer with [facility], vascular surgeon with [facility], and chronic home health services with [facility] (due to "back-up insurance). One week ago patient was told by home health aide that his legs look more swollen; of note patient has not had SOB, dyspnea on exertion, orthopnea or PND. However his home health [facility] physician started him on IV Lasix in addition to his daily regimen of Bumex and Metolazone. His prescribed doses on several days leading up to this ED presentation were as high as 200mg IV daily. Patient does report unhealthy dietary choices due to financial difficulties, but his PO intake has been stable. He tries to restrict his fluid intake as instructed by Scientific Database Curator [employer] Programming [employer]. No recent illnesses. No fever/chills, chest pain, SOB, cough, N/V, abdominal pain, or new rash. Does have chronic venous stasis dermatitis. No alcohol/smoking/drug use. Is able to ambulate with a cane. Proficient in ADLs an d most iADLs. In the ED patient was hemodynamically stable on room air. Labs significant for Hgb 12.0 (baseline 10-11), Na 134, K 3.2, Cl 84, HCO3 39, BUN 88, Cr 2.58. BNP 205 (no previous). CXR with chronic cardiomegaly but no signs of vascular congestion. Patient was given Lasix 40mg IV x1 in ED. Principal Diagnosis acute kidney injury on chronic kidney disease stage 3 Discharge Exam The patient appeared chronically ill but stable Vital signs as documented. Lungs are clear to auscultation and appear unlabored Cardiac exam, Rhythm is regular.. No murmurs, rubs or gallops. Abdominal exam reveals normal bowel sounds, soft non tender, no masses Extremities are 2-3+ edematous and both legs are reddened Neurologic exam is alert and oriented, no focal loss of strength or sensation Skin is with chronic venenous stasis changes Psychologically is without concerns for anxiety or depression. Discharge Data Allergies Allergy/AdvReac Type Severity Reaction Status Date / Time hydralazine Allergy Mild Rash Verified 05/10/22 21:34 Calcium Channel Blocking Allergy Rash, Verified 05/10/22 21:34 Agent Dilt swelling semaglutide [From Ozempic] Allergy Abdominal Verified 05/10/22 21:34 Pain amitriptyline AdvReac Mild Muscle Verified 05/10/22 21:34 twitching Consultations 05/10/22 20:03 ED Decision to Admit Stat 05/11/22 08:47 [facility] CHF Program Referral Routine Hospital Course (1) Acute kidney injury superimposed on chronic kidney disease: Reid Swartz is a 56yo male with PMHx that includes CKD4 (baseline Cr ~2), s/p AV fistula placement (in 01/2022, not on HD yet), T2DM (A1c 7.7 in 08/2021), chronic HFpEF (EF 55-60% with grade II diastolic dysfunction as of 05/2021), gout (on daily Prednisone), peripheral neuropathy, chronic venous stasis dermatitis, HTN, HLD and GERD who was sent to [facility] ED on 05/10 by [facility] health physician for COSMO. COSMO on CKD4 COSMO resolved resume home diuretics Electrolyte Abnormalities contraction alkalosis due to pre hospital pre renal state, resolved, . - repleted potassium Chronic LE Edema Previous diagnosed with HFpEF, with last EF 55-60% with grade II diastolic dysfunction as of 05/2021. Patient follows with HF clinic (Dina Artis) - last seen in 04/2022 and current thoughts are this represents hypervolemia (lower extremities) rather than true heart failure. - CXR with chronic cardiomegaly but no signs of vascular congestion - BNP ~200 -resumed diuretics if good result with albumin - continue home magnesium Echo 05/11/22 normal EF, Chronic Diastolic heart failure, chronic no sig v alvular disease will have HF clinic follow Venous stasis dermatitis: chronic, with non-healing cut on right LE. Wound care. Chronic Normocytic Anemia: Hgb stable (baseline 10-11). Suspect some degree of hemoconcentration in setting of above. Chronic anemia likely due to chronic disease (CKD). T2DM: insulin-dependent, last A1c 7.7 in 08/2021. poor control in hospital, A1c 8.4 HTN/HLD: continue home baby Aspirin BID, Doxazosin, and Metoprolol Gout: hold Allopurinol, continue Prednisone 5mg PO daily Peripheral Neuropathy: continue home Gabapentin Iron deficiency: continue ferrous sulfate QOD GERD: Protonix per hospital formulary DVT Prophylaxis: home Aspirin 81mg PO BID Code Status: full code (2) Diabetes: (3) Hypertension: (4) Hyponatremia: (5) Hypokalemia: (6) Anemia: (7) Venous stasis dermatitis: (8) HLD (hyperlipidemia): (9) Gastroparesis: Total Time Total Time Spent Total Time Spent (In Minutes): It required greater than 30 minutes to prepare this patient for discharge Discharge Plan Discharge Items Patient Disposition: Home - Self-Care Reason For Visit: COSMO ON CKD Discharge Diagnosis: acute kidney injury chronic diastolic heart failure, chronic lower extremity edema venous stasis changes Activity: Resume your previous activity Non-emergency contact: Primary Care Provider and Scientific Database Curator Call non-emergency contact if: your symptoms worsen and you have a fever Follow-up/Referrals: Marbella Membreno PA-C [Primary Care Provider] - Diet: Carb Consistent or DM2 Addtl Attending Provider Instructions: please resume you home heart failure regimen when you get home we have been having some challenges with your blood glucoses here so please check them frequently at home please take your Insulin U starting tonight with your evening meal continue to have a diabetic friendly diet Pending Studies at Discharge: No Stand-Alone Forms: My [employer], Smoking Cessation Medications and DC Order Prescriptions: Continued mupirocin 2 % ointment 1 applic topical TID PRN (Reason: flare ups) RF: 0 aspirin 81 mg capsule 81 mg PO Q12 RF: 0 doxazosin 4 mg tablet 4 mg PO HS RF: 0 melatonin 10 mg capsule 10 mg PO HS RF: 0 allopurinol 300 mg tablet 750 mg PO DAILY RF: 0 polyethylene glycol 3350 17 gram/dose powder 17 gm PO BID PRN (Reason: constipation) Qty: 510 RF: 5 metolazone 5 mg tablet 5 mg PO BID Qty: 180 RF: 3 Lantus Solostar U-100 Insulin 100 unit/mL (3 mL) insulin pen 50 unit subcut HS RF: 0 prednisone 5 mg tablet 5 mg PO DAILY RF: 0 bumetanide 2 mg tablet 4 mg PO BID RF: 0 magnesium oxide 400 mg Capsule 400 mg PO HS RF: 0 atorvastatin 80 mg Tablet 80 mg PO QPM RF: 0 metoprolol succinate 50 mg Tablet Extended Release 24 Hr 150 mg PO QPM RF: 0 omeprazole 20 mg Capsule,Delayed Release(Dr/Ec) 20 mg PO QPM Qty: 0 RF: 0 gabapentin 600 mg tablet 600 mg PO TID RF: 0 Humulin R U-500 (Conc) Insulin 500 unit/mL solution See Rx Instructions .ROUTE .COMPLEX RF: 0 omega 9-wik-iaa-fish oil [Fish Oil] 1,000 mg (120 mg-180 mg) capsule 2 cap PO BID RF: 0 cholecalciferol (vitamin D3) [Vitamin D3] 25 mcg (1,000 unit) tablet,chewable 2,000 units PO QPM RF: 0 fluticasone propionate [Flonase Allergy Relief] 50 mcg/actuation [place],Suspension 1 spray INTRANASAL BID RF: 0 ferrous sulfate 325 mg (65 mg iron) tablet 325 mg PO Q OTHER DAY RF: 0 magnesium hydroxide [Milk of Magnesia] 400 mg/5 mL Suspension 15 ml PO DAILY PRN (Reason: Constipation) RF: 0 acetaminophen [Tylenol Extra Strength] 500 mg Tablet 1,000 mg PO TID PRN (Reason: Pain) RF: 0 ascorbic acid (vitamin C) 500 mg Tablet 500 mg PO BID RF: 0 Multivitamin 50 Plus Tablet 1 tab PO QAM RF: 0 cyanocobalamin (vitamin B-12) 1,000 mcg Tablet 1,000 mcg PO HS RF: 0 bisacodyl 10 mg Suppository 10 mg MI DAILY PRN (Reason: Constipation) RF: 0 hydroxyzine HCl 25 mg Tablet 25 mg PO Q6 PRN (Reason: Itching) RF: 0 Discharge Orders: Discharge Order (Routine); Ordered 05/13/22 Ordered By: Walter Maria/Other Patient Handouts: Managing Type 2 Diabetes, 5 Steps for Eating Healthier Admission Data Admit Date/Time: 05/10/22 20:52 Attending Provider: Walter Jimenez Admit Provider: Jus Sterling Primary Care Provider: Marbella Membreno Other Providers: Davis Atkins ; [facility] ; Radha Artis Other Interventions: Discharge Summary Assessment (RN) Last Done: 05/13/22 14:53 Coding Level of Care Code D/C DAY MANAGEMENT >30 MINS Diagnoses Acute kidney injury superimposed on chronic kidney disease N17.9; N18.9 Diabetes E11.621; L97.509; Z79.4 Diabetes mellitus type: type 2 Diabetes mellitus fdc insulin use: with remote computer terminal operator use Diabetes mellitus complication status: with skin complications Diabetes mellitus complication detail: with foot ulcer Hypertension I10 Hyponatremia E87.1 Hypokalemia E87.6 Anemia D64.9 Venous stasis dermatitis I87.2 HLD (hyperlipidemia) E78.5 Gastroparesis K31.84
== END 2022-05-13 15:34 | disposition home or self-care (01) ==
LOC: ED 17:52 → 2W 17:52 → SUATTDRO 20:52 → 2W 21:38

== ENCOUNTER 2023-04-02 22:27 | Inpatient (IN) ==
[2023-04-02 23:56] LABS: Basophils # (auto) 0.06 K/uL (0-0.2); Basophils % (auto) 0.3 %; Eosinophils # (auto) 0.03 K/uL (0-0.50); Eosinophils % (auto) 0.2 %; Hematocrit (blood only) 23.4 % (42.0-52.0); Hemoglobin 7.4 g/dl (14.0-18.0); Immature Granulocytes # (auto) 0.13 K/uL (0.01-0.20); Immature Granulocytes % (auto) 0.7 %; Lymphocytes # (auto) 1.23 K/uL (1.2-3.4); Mean Corpuscular Hemoglobin 26.8 pg (25.0-34.0); Mean Corpuscular Hgb Conc 31.6 g/dL (32.0-36.0); Mean Corpuscular Volume 84.8 fL (80.0-100.0); Mean Platelet Volume 10.4 fL (9.4-12.4); Monocytes # (auto) 1.05 K/uL (0.11-0.59); Neutrophils # (auto) 15.06 K/uL (1.40-6.50); Neutrophils % (auto) 85.8 %; Platelet Count 248 K/uL (130-400); RDW Coefficient of Variation 14.6 % (11.5-14.5); RDW Standard Deviation 45.1 fL (36.4-46.3); Red Blood Count 2.76 M/uL (4.70-6.10); White Blood Count 17.56 K/ul (4.8-10.8)
[2023-04-03 00:12] LABS: BUN Creatinine Ratio 22.7 (10-20); Calcium 8.6 mg/dl (8.6-10.3); Creatinine Clr Calc Pharmacy 60.3 ml/min; Est GFR (African American) 53.8 ml/min; Est GFR (Non-African American) 46.4 ml/min; Potassium 4.2 mmol/L (3.5-5.1)
[2023-04-03 00:18] LABS: Troponin I High Sensitivity 14.2 pg/ml (0-20)
[2023-04-03 00:22] LABS: Reticulocyte % 1.2 % (0.5-2.0); Reticulocytes # 0.03 10^6/uL (0.02-0.10)
[2023-04-03 00:25] LABS: INR 1.2 (0.9-1.1); Prothrombin Time 12.5 Seconds (9.0-12.0)
[2023-04-03 00:29] LABS: Ovalocytes 1+; Polychromasia 1+
[2023-04-03 00:42] LABS: Albumin Globulin Ratio 0.9 (0.9-2); Albumin Level 3.1 gm/dl (3.4-5.0); Bilirubin,Total 0.7 mg/dl (0.2-1.0); Globulin 3.6 gm/dl (2.5-4.0); Magnesium 1.4 mg/dl (1.7-2.4); Total Protein 6.7 gm/dl (6.0-8.3)
[2023-04-03 00:44] LABS: Phosphorus 1.4 mg/dl (2.5-4.9)
[2023-04-03] MEDS ORDERED: POTASSIUM PHOS 3 MMOL/1 ML INFUSION IV STA (01:02)
[2023-04-03] MEDS ORDERED: PIPERACILLIN/TAZOBACTAM 4.5 GM/120 ML BAG IV ONE (01:06)
[2023-04-03] MEDS ORDERED: DAPTOmycin 500 MG in SYRINGE 0 ML IV STA (01:06)
[2023-04-03] MEDS ORDERED: MEROPENEM 1,000 MG in SYRINGE 0 ML IV STA (01:09)
[2023-04-03 01:25] LABS: C Reactive Protein 15.98 mg/dl (0-0.5)
[2023-04-03] MEDS ORDERED: MEROPENEM 1,000 MG in SYRINGE 0 ML IV ONE (01:30)
[2023-04-03] MEDS ORDERED: POTASSIUM PHOSPHATE 6 MMOL in 0.9 % SODIUM CHLORIDE 100 ML IV ONE (01:30)
[2023-04-03] MEDS ORDERED: SODIUM CHLORIDE 0.9% 250 ML IV PRN ×2 (01:55→12:43)
--- NOTE | 2023-04-03 02:30 | CT Scan Report ---
Exam(s): CT ABDOMEN + PELVIS Without Contrast EXAM: CT Abdomen and Pelvis Without Intravenous Contrast CLINICAL HISTORY: Reason for exam: abd pain anemia. TECHNIQUE: Axial computed tomography images of the abdomen and pelvis without intravenous contrast. CTDI is 20.72 mGy and DLP is 1176.8 mGy-cm. Automated exposure control was utilized for the study. A dose lowering technique was utilized adhering to the principles of ALARA. COMPARISON: No relevant prior studies available. FINDINGS: Lung bases: Unremarkable. No mass. No consolidation. ABDOMEN: Liver: Unremarkable. Gallbladder and bile ducts: Unremarkable. No calcified stones. No ductal dilation. Pancreas: Unremarkable. No ductal dilation. Spleen: The spleen is enlarged measuring 16.6 cm craniocaudad. Adrenals: Unremarkable. No mass. Kidneys and ureters: The kidneys are unremarkable. No hydronephrosis or ureterolithiasis is seen. Stomach and bowel: Unremarkable. No obstruction. No mucosal thickening. PELVIS: Appendix: The appendix is normal. Bowel loops are nondilated. No acute inflammatory changes are seen involving the bowel. Bladder: Unremarkable. No stones. Reproductive: Unremarkable as visualized. ABDOMEN and PELVIS: Intraperitoneal space: The portal vein is upper normal in diameter measuring 16 mm. No ascites is seen. No free air. Bones/joints: Mild degenerative changes in the spine. No acute fracture or subluxation is seen. Soft tissues: Unremarkable. Vasculature: The abdominal aorta is mildly calcified but nondilated. Lymph nodes: Borderline mild inguinal lymphadenopathy with a 2 mm left side on the right. IMPRESSION: 1. The kidneys are unremarkable. No hydronephrosis or ureterolithiasis is seen. 2. The appendix is normal. Bowel loops are nondilated. No acute inflammatory changes are seen involving the bowel. 3. Splenomegaly. The portal vein is upper normal in diameter. No overt signs of cirrhosis or ascites. Electronically signed by: Elkin Ram MD 04/03/23 02:29 AM
--- NOTE | 2023-04-03 02:34 | CT Scan Report ---
Exam(s): CT RIGHT FOOT Without Contrast EXAM: CT Right Lower Extremity Without Intravenous Contrast, Foot CLINICAL HISTORY: Reason for exam: heel ulcer eval for osteo. TECHNIQUE: Axial computed tomography images of the right foot without intravenous contrast. CTDI is 10.38 mGy and DLP is 218.31 mGy-cm. Automated exposure control was utilized for the study. A dose lowering technique was utilized adhering to the principles of ALARA. COMPARISON: No relevant prior studies available. FINDINGS: Bones/joints: There is an oval, approximately 2.5 x 1 cm gas and fluid collection is soft tissue superior to the Achilles tendon insertion upon the calcaneus consistent with abscess. There are calcific fragments as well as 3 tubular 0.4 x 1.6 cm man-made structures within this area. Correlate with surgical history. No acute fracture. No dislocation. Soft tissues: There is subcutaneous emphysema extending over an approximately 4.5 cm transverse by 2.5 cm deep area along the surface of the calcaneus. There is erosion and fragmentation of the calcaneus with gas extending into the bone consistent with osteomyelitis. Severe diffuse subcutaneous edema throughout the foot and ankle. No radiopaque foreign body. IMPRESSION: 1. There is subcutaneous emphysema extending over an approximately 4.5 cm transverse by 2.5 cm deep area along the surface of the calcaneus. There is erosion and fragmentation of the adjacent calcaneus with gas extending into the bone consistent with osteomyelitis. 2. There is an oval, approximately 2.5 x 1 cm gas and fluid collection is soft tissue superior to the Achilles tendon insertion upon the calcaneus consistent with abscess. There are calcific fragments as well as 3 tubular 0.4 x 1.6 cm man-made structures within this area. Correlate with surgical history. Electronically signed by: Elkin Ram MD 04/03/23 02:33 AM
--- NOTE | 2023-04-03 03:38 | Emergency Department Note ---
Impression & Plan Diabetic ulcer of right heel, Osteomyelitis of right foot, Hypervolemia, CKD (chronic kidney disease), Hyponatremia, Leukocytosis, Hx of past noncompliance ED Provider Note NAME: BING REYNOLDS AGE: 57 SEX: M ARRIVES VIA: Walk-In INFORMANT: Patient ED PROVIDER(S): Adonis Nuñez MD CHIEF COMPLAINT: Leg swelling, weakness. PLAN: Disposition: Admit MEDICAL DECISION MAKING: The patient is a pleasant 57-year-old gentleman with a past medical history of CHF, WHIT, stage IV CKD, obesity, gastroparesis, osteomyelitis of the left foot, hypertension hyperlipidemia, diabetes, history of noncompliance who presents to emergency department via walk-in for evaluation of worsening fluid retention with bilateral lower extremity edema where he feels his leg to become so heavy it is difficult to walk. He reports he has had several minor falls where he lost his balance falling onto his buttocks. He denies any head strike or loss of consciousness. He is poor historian regarding his recent medical course. He denies any changes in medications. He reports he is now following his appropriate diet but admits that in the past he has not. The patient reports he lives by himself. He reports he does note that his legs weep at times. He is not unable to say if he has any wounds on his legs or feet. He denies fevers, chills, cough or congestion. He denies nausea, vomiting, diarrhea. On arrival the patient is unkept appearing, afebrile with stable vital signs. His pants appear to have not been changed in some time. Dried stool debris was noted to be contained within his pants and socks. Is right foot was notable for edema and erythema extending from a large right heel diabetic foot ulcer with approximate 10 cm overlying black eschar. There is no crepitus at this time on palpation. There is no purulent drainage at this time. Serous weeping is p resent. Capillary refill is less than 2 seconds. EKG without overt acute ischemia. CXR with congestive change per my preliminary review. WBC 17.5K with neutrophil predominance though no left shift. H/H 7.4/23.4 without recent values for comparison though decreased from in April 2022. Iron studies were obtained and there is iron deficiency with iron of 18. Platelets within normal limits. ESR and CRP elevated at 63 and 15 in the setting of concern for osteomyelitis. Sodium is 125 likely secondary to patient's hypervolemia with osmolality of 275. Phosphorus 1.4 and magnesium 1.4 with repletion initiated. LFTs unremarkable. High-sensitivity troponin 14.2, within normal limits. Lipase is not elevated. Procalcitonin 2 consistent with suspected osteomyelitis. TSH within normal limits. Blood cultures were drawn and the patient was treated with empiric meropenem as the patient has had prior cultures in his record demonstrating resistant Enterobacter and given severity of infection will include Pseudomonas coverage for now. Patient also has a history of MRSA and so daptomycin was ordered. CT of the abdomen for further characterization of the patient's anemia and CT of the foot ordered and pending to further evaluate the patient's suspected osteomyelitis which is suspected to have a chronic component given the patient's unkept appearance. Patient agrees with plan for admission for further management. Case was discussed with STEVIE Rich hospitalist, who will evaluate the patient for admission. CT abdomen pelvis subsequently negative for acute intra-abdominal findings. CT of the foot demonstrates evidence of osteomyelitis of the calcaneus with erosion and fragmentation as well as gas extending into the bone. Additional question of 2cm abscess superior to the insertion of the Achilles tendon is noted. Further management per admitting team and per surgical consultation. Triage Nursing notes reviewed and agree them. Prior/outside medical records reviewed Vital Signs: reviewed Differential diagnosis: Cellulitis, abscess, MRSA infection, DVT, necrotizing fasciitis, dermatitis, drug eruption, allergic reaction, as well as other pathologies. ER treatment provided: See below. Diagnostics interpreted by me: ECG: Sinus rhythm with PACs, 83 bpm, no overt ST elevation or depression, QTc 455, QRS 86. Cardiac Monitoring: An order for continuous cardiac monitoring was placed and demonstrated Sinus rhythm with PACs, 83 bpm. Laboratory studies: See below Imaging studies: See below Consultation(s): STEVIE Rich hospitalist HPI: The patient is a pleasant 57-year-old gentleman with a past medical history of CHF, WHIT, stage IV CKD, obesity, gastroparesis, osteomyelitis of the left foot, hypertension hyperlipidemia, diabetes, history of noncompliance who pr esents to emergency department via walk-in for evaluation of worsening fluid retention with bilateral lower extremity edema where he feels his leg to become so heavy it is difficult to walk. He reports he has had several minor falls where he lost his balance falling onto his buttocks. He denies any head strike or loss of consciousness. He is poor historian regarding his recent medical course. He denies any changes in medications. He reports he is now following his appropriate diet but admits that in the past he has not. The patient reports he lives by himself. He reports he does note that his legs weep at times. He is not unable to say if he has any wounds on his legs or feet. He de nies fevers, chills, cough or congestion. He denies nausea, vomiting, diarrhea. ROS: See above HPI for pertinent positives & negatives. A total of 10 systems reviewed and were otherwise negative. VITALS:See Below PHYSICAL EXAMINATION: GENERAL: Awake, alert, unkempt-appearing, in no distress HENT: Normocephalic, atraumatic. Oropharynx unremarkable. EYES: Normal conjunctiva. Sclera non-icteric. NECK: Supple. No nuchal rigidity. FROM. No JVD. RESPIRATORY: Clear to auscultation. CARDIAC: Regular rate, normal rhythm. Extremities warm and well perfused. Pulses equal. ABDOMEN: Soft, non-distended. No tenderness to palpation. No rebound or guarding. No masses. RECTAL: Deferred. MUSCULOSKELETAL: Chest examination reveals no tenderness. The back is symmetrical on inspection without obvious abnormality. There is no CVA tenderness to palpation. No joint edema. LOWER EXTREMITIES: Calves are equal size bilaterally and non-tender. 3+ BLE pitting edema. Pants appear to have not been changed in some time. Dried stool debris was noted to be contained within his pants and socks. Right foot demonstrates edema and erythema extending from a large right heel diabetic foot ulcer with approximate 10 cm overlying black eschar. There is no crepitus at this time on palpation. There is no purulent drainage at this time. Serous weeping is present. Capillary refill is less than 2 seconds. NEURO: Normal sensorium. No sensory or motor deficits noted. SKIN: No jaundice noted. ED COURSE: Critical Care: I have personally spent greater than 75 minutes of critical care time in the direct management of this patient. This includes bedside care, interpretation of diagnostic studies, and testing, discussion with consultants, patient, and family members, and other required patient management activities. This 75 minutes is in excess of all separately billable procedures. Adonis Nuñez MD Past Med/Surg History Medical History Chronic back pain Chronic diastolic congestive heart failure Chronic kidney disease Plan for possible dialysis in the future (under surveillance), will be placing fistula in near future preventatively Depression Diabetes IDDM Diastolic CHF Dyslipidemia Encounter for pre-operative examination GERD (gastroesophageal reflux disease) Hypertension Migraine Morbid obesity Osteoarthritis Sleep apnea CPAP Temporomandibular joint disorder Occasional clicking, no locking Surgical History History of Achilles tendon repair Right Achilles repair (07/16/21): Grade 2 view, MAC#3, ETT 7.5 + PNB at [facility] History of incision and drainage Left foot multiple with skin graft (total of 5) Left foot I&D (10/08/20): LMA#5 at [facility] Left foot I&D, Stimulan beads (02/12/21): MAC at [facility] History of open reduction and internal fixation (ORIF) procedure Left ankle Bimalleolar Fracture (11/2019) History of placement of ear tubes Right ear History of tonsillectomy and adenoidectomy Hx of cataract surgery R/L Hx of colonoscopy Flasher teeth extracted Family History Father Diabetes Mother Diabetes Other Coronary heart disease Hypertension No family history of adverse response to anesthesia Denies family history of Crohn's disease Kidney disease Colorectal cancer Ulcerative colitis Social History Smoking Status: Former smoker Tobacco Type: Cigarettes Second Hand Exposure: Yes; Do You Dip or Chew Tobacco: No; Hx Alcohol Use: No Hx Substance Use: No Preferred Language: Somali Communication Ability: Effective Optical Designer Required: No Beliefs That Will Affect Care: None marital status: Current Living Situation: Alone Current Living Situation Comment: resides with huma current occupational status: employed 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 Feels Safe at Home: Yes Safety Concerns: Feels Safe At This Time Assistive Devices: Cane, CPAP, Glasses and Walker Allergies Allergies Allergy/AdvReac Type Severity Reaction Status Date / Time hydralazine Allergy Mild Rash Verified 07/11/22 13:18 Calcium Channel Blocking Allergy Rash, Verified 07/11/22 13:18 Agent Dilt swelling semaglutide [From Ozempic] Allergy Abdominal Verified 07/11/22 13:18 Pain amitriptyline AdvReac Mild Muscle Verified 07/11/22 13:18 twitching Home Meds Home Medications Medication Instructions Recorded Confirmed atorvastatin 80 mg tablet 80 mg PO QPM 08/02/18 07/11/22 magnesium oxide 400 mg PO HS 08/02/18 07/11/22 metoprolol succinate 50 mg 150 mg PO QPM 08/02/18 07/11/22 tablet,extended release 24 hr cholecalciferol (vitamin D3) 25 2,000 units PO QPM 11/19/19 07/11/22 mcg (1,000 unit) chewable tablet (Vitamin D3) gabapentin 600 mg tablet 600 mg PO TID 12/06/19 07/11/22 fluticasone propionate 50 1 spray intranasal BID 05/05/20 07/11/22 mcg/actuation nasal spray,suspension (Flonase Allergy Relief) doxazosin 4 mg tablet 4 mg PO HS 10/01/20 07/11/22 melatonin 10 mg capsule 10 mg PO HS 05/17/21 07/11/22 magnesium hydroxide 400 mg/5 mL 15 ml PO DAILY PRN Constipation 07/28/21 07/11/22 oral suspension (Milk of Magnesia) acetaminophen 500 mg tablet 1,000 mg PO TID PRN Pain 08/08/21 07/11/22 (Tylenol Extra Strength) ascorbic acid (vitamin C) 500 mg 500 mg PO BID 08/08/21 07/11/22 tablet oncvstpgozol-iwurympn-vbrehi 1 tab PO QAM 08/08/21 07/11/22 tablet (Multivitamin 50 Plus tablet) cyanocobalamin (vitamin B-12) 1,000 mcg PO HS 08/11/21 07/11/22 1,000 mcg tablet hydroxyzine HCl 25 mg tablet 25 mg PO Q6 PRN Itching 08/11/21 07/11/22 mupirocin 2 % topical ointment 1 applic topical TID PRN flare ups 08/12/21 07/11/22 aspirin 81 mg capsule 81 mg PO Q12 09/21/21 07/11/22 insulin glargine 100 unit/mL (3 50 unit subcut HS 12/20/21 07/11/22 mL) subcutaneous pen (Lantus Solostar U-100 Insulin) prednisone 5 mg tablet 5 mg PO DAILY 12/20/21 07/11/22 ferrous sulfate 325 mg (65 mg 325 mg PO Q OTHER DAY 02/04/22 07/11/22 iron) tablet allopurinol 300 mg tablet 750 mg PO DAILY 04/14/22 07/11/22 bumetanide 2 mg tablet 4 mg PO BID 04/14/22 07/11/22 omega 4-yxu-yzl-fish oil 1,000 mg 2 cap PO BID 04/14/22 07/11/22 (120 mg-180 mg) capsule (Fish Oil) insulin regular hum U-500 conc 500 See Rx Instructions .Route .COMPLEX 06/17/22 07/11/22 unit/mL subcutaneous soln (Humulin R U-500 (Concentrated) Insulin) Previous Rx's Medication Instructions Recorded omeprazole 20 mg capsule,delayed 20 mg PO QPM #0 caps 08/14/19 release polyethylene glycol 3350 17 17 gm PO BID PRN constipation #510 12/23/19 gram/dose oral powder grams metolazone 5 mg tablet 5 mg PO BID #180 tabs 10/28/21 Results & Data (ED) Vital Signs Vital Signs - 24 hr 04/02/23 22:33 04/02/23 23:29 04/02/23 23:29 Temperature 36.8 C Temperature Source Temporal Artery Scan Pulse Rate 97 H Respiratory Rate 17 Respiratory Effort / Characteristics Non-Labored Respiratory Depth Normal Normal Respiratory Pattern Regular Blood Pressure 121/68 Blood Pressure Mean 85 Pulse Oximetry 97 Oxygen Delivery Method Room Air Room Air Sepsis Recent Fever Within 48 Hours No Sepsis New/Unexplained Change in Mental Status No Sepsis Action Taken by Nursing No Action Required 04/03/23 00:30 04/03/23 01:00 04/03/23 01:30 Temperature Temperature Source Pulse Rate 95 H 83 Respiratory Rate 19 17 21 Respiratory Effort / Characteristics Respiratory Depth Respiratory Pattern Blood Pressure 122/51 L 147/69 H 116/55 L Blood Pressure Mean 74 95 75 Pulse Oximetry 95 94 92 Oxygen Delivery Method Room Air Room Air Room Air Sepsis Recent Fever Within 48 Hours Sepsis New/Unexplained Change in Mental Status Sepsis Action Taken by Nursing Laboratory Data Attestation: I reviewed the patient's lab results. 04/02/23 23:27 04/02/23 23:27 Lab Results 04/02/23 04/02/23 04/02/23 Range/Units 23:27 23:27 23:27 WBC 17.56 H (4.8-10.8) K/ul RBC 2.76 L (4.70-6.10) M/uL Hgb 7.4 L (14.0-18.0) g/dl Hct 23.4 L (42.0-52.0) % MCV 84.8 (80.0-100.0) fL MCH 26.8 (25.0-34.0) pg MCHC 31.6 L (32.0-36.0) g/dL RDW Std Deviation 45.1 (36.4-46.3) fL RDW Coeff of Diane 14.6 H (11.5-14.5) % Plt Count 248 (130-400) K/uL MPV 10.4 (9.4-12.4) fL Immature Gran % (Auto) 0.7 % Neut % (Auto) 85.8 % Lymph % (Auto) 7.0 % [place] % (Auto) 6.0 % Eos % (Auto) 0.2 % Baso % (Auto) 0.3 % Reticulocyte % (Auto) 1.2 (0.5-2.0) % Neut # (Auto) 15.06 H (1.40-6.50) K/uL Lymph # (Auto) 1.23 (1.2-3.4) K/uL [place] # (Auto) 1.05 H (0.11-0.59) K/uL Eos # (Auto) 0.03 (0-0.50) K/uL Baso # (Auto) 0.06 (0-0.2) K/uL Reticulocyte # 0.03 (0.02-0.10) 10^6/uL Immature Gran # (Auto) 0.13 (0.01-0.20) K/uL Polychromasia 1+ Ovalocytes 1+ ESR (0-20) mm/hr PT (9.0-12.0) Seconds INR (0.9-1.1) Sodium 125 L (136-145) mmol/L Potassium 4.2 (3.5-5.1) mmol/L Chloride 91 L (98-107) mmol/L Carbon Dioxide 24 (21-32) mmol/L Anion Gap 10 (3-11) BUN 37 H (6-23) mg/dl Creatinine 1.63 H (0.6-1.4) mg/dl Est Cr Clr Drug Dosing 60.3 ml/min Est GFR ( Amer) 53.8 ml/min Est GFR (Non-Af Amer) 46.4 ml/min BUN/Creatinine Ratio 22.7 H (10-20) Glucose 152 H (70-99(Fasting)) mg/dl Osmolality (280-300) mOsm/kg Calcium 8.6 (8.6-10.3) mg/dl Phosphorus 1.4 L* (2.5-4.9) mg/dl Magnesium 1.4 L (1.7-2.4) mg/dl Iron 18 L (35-175) mcg/dl Unsaturated IBC 150 L (155-355) mcg/dl Transferrin 125 L (200-360) mg/dl Ferritin 2276.0 H (8-388) ng/ml Total Bilirubin 0.7 (0.2-1.0) mg/dl AST 36 (13-39) U/L ALT 30 (7-52) U/L Alkaline Phosphatase 88 (34-104) U/L Total Creatine Kinase 19 L (30-223) U/L Troponin I High Sens 14.2 (0-20) pg/ml C-Reactive Protein 15.98 H (0-0.5) mg/dl Total Protein 6.7 (6.0-8.3) gm/dl Albumin 3.1 L (3.4-5.0) gm/dl Globulin 3.6 (2.5-4.0) gm/dl Albumin/Globulin Ratio 0.9 (0.9-2) Lipase 5 L (11-82) U/L Procalcitonin (0-0.5) ng/ml TSH 3.201 (0.300-4.500) uIu/ml 04/02/23 04/02/23 04/02/23 Range/Units 23:27 23:27 23:27 WBC (4.8-10.8) K/ul RBC (4.70-6.10) M/uL Hgb (14.0-18.0) g/dl Hct (42.0-52.0) % MCV (80.0-100.0) fL MCH (25.0-34.0) pg MCHC (32.0-36.0) g/dL RDW Std Deviation (36.4-46.3) fL RDW Coeff of Diane (11.5-14.5) % Plt Count (130-400) K/uL MPV (9.4-12.4) fL Immature Gran % (Auto) % Neut % (Auto) % Lymph % (Auto) % [place] % (Auto) % Eos % (Auto) % Baso % (Auto) % Reticulocyte % (Auto) (0.5-2.0) % Neut # (Auto) (1.40-6.50) K/uL Lymph # (Auto) (1.2-3.4) K/uL [place] # (Auto) (0.11-0.59) K/uL Eos # (Auto) (0-0.50) K/uL Baso # (Auto) (0-0.2) K/uL Reticulocyte # (0.02-0.10) 10^6/uL Immature Gran # (Auto) (0.01-0.20) K/uL Polychromasia Ovalocytes ESR 63 H (0-20) mm/hr PT 12.5 H (9.0-12.0) Seconds INR 1.2 H (0.9-1.1) Sodium (136-145) mmol/L Potassium (3.5-5.1) mmol/L Chloride (98-107) mmol/L Carbon Dioxide (21-32) mmol/L Anion Gap (3-11) BUN (6-23) mg/dl Creatinine (0.6-1.4) mg/dl Est Cr Clr Drug Dosing ml/min Est GFR ( Amer) ml/min Est GFR (Non-Af Amer) ml/min BUN/Creatinine Ratio (10-20) Glucose (70-99(Fasting)) mg/dl Osmolality (280-300) mOsm/kg Calcium (8.6-10.3) mg/dl Phosphorus (2.5-4.9) mg/dl Magnesium (1.7-2.4) mg/dl Iron (35-175) mcg/dl Unsaturated IBC (155-355) mcg/dl Transferrin (200-360) mg/dl Ferritin (8-388) ng/ml Total Bilirubin (0.2-1.0) mg/dl AST (13-39) U/L ALT (7-52) U/L Alkaline Phosphatase (34-104) U/L Total Creatine Kinase (30-223) U/L Troponin I High Sens (0-20) pg/ml C-Reactive Protein (0-0.5) mg/dl Total Protein (6.0-8.3) gm/dl Albumin (3.4-5.0) gm/dl Globulin (2.5-4.0) gm/dl Albumin/Globulin Ratio (0.9-2) Lipase (11-82) U/L Procalcitonin 2.15 H (0-0.5) ng/ml TSH (0.300-4.500) uIu/ml 04/02/23 Range/Units 23:27 WBC (4.8-10.8) K/ul RBC (4.70-6.10) M/uL Hgb (14.0-18.0) g/dl Hct (42.0-52.0) % MCV (80.0-100.0) fL MCH (25.0-34.0) pg MCHC (32.0-36.0) g/dL RDW Std Deviation (36.4-46.3) fL RDW Coeff of Diane (11.5-14.5) % Plt Count (130-400) K/uL MPV (9.4-12.4) fL Immature Gran % (Auto) % Neut % (Auto) % Lymph % (Auto) % [place] % (Auto) % Eos % (Auto) % Baso % (Auto) % Reticulocyte % (Auto) (0.5-2.0) % Neut # (Auto) (1.40-6.50) K/uL Lymph # (Auto) (1.2-3.4) K/uL [place] # (Auto) (0.11-0.59) K/uL Eos # (Auto) (0-0.50) K/uL Baso # (Auto) (0-0.2) K/uL Reticulocyte # (0.02-0.10) 10^6/uL Immature Gran # (Auto) (0.01-0.20) K/uL Polychromasia Ovalocytes ESR (0-20) mm/hr PT (9.0-12.0) Seconds INR (0.9-1.1) Sodium (136-145) mmol/L Potassium (3.5-5.1) mmol/L Chloride (98-107) mmol/L Carbon Dioxide (21-32) mmol/L Anion Gap (3-11) BUN (6-23) mg/dl Creatinine (0.6-1.4) mg/dl Est Cr Clr Drug Dosing ml/min Est GFR ( Amer) ml/min Est GFR (Non-Af Amer) ml/min BUN/Creatinine Ratio (10-20) Glucose (70-99(Fasting)) mg/dl Osmolality 275 L (280-300) mOsm/kg Calcium (8.6-10.3) mg/dl Phosphorus (2.5-4.9) mg/dl Magnesium (1.7-2.4) mg/dl Iron (35-175) mcg/dl Unsaturated IBC (155-355) mcg/dl Transferrin (200-360) mg/dl Ferritin (8-388) ng/ml Total Bilirubin (0.2-1.0) mg/dl AST (13-39) U/L ALT (7-52) U/L Alkaline Phosphatase (34-104) U/L Total Creatine Kinase (30-223) U/L Troponin I High Sens (0-20) pg/ml C-Reactive Protein (0-0.5) mg/dl Total Protein (6.0-8.3) gm/dl Albumin (3.4-5.0) gm/dl Globulin (2.5-4.0) gm/dl Albumin/Globulin Ratio (0.9-2) Lipase (11-82) U/L Procalcitonin (0-0.5) ng/ml TSH (0.300-4.500) uIu/ml Administered Medications Discontinued Medications Magnesium Sulfate/Dextrose (Magnesium Sulfate / D5w) 1 gm in 100 mls @ 100 mls/hr IV Q1H LELIA Stop: 04/03/23 03:02 Last Admin: 04/03/23 05:00 Dose: 100 mls/hr Documented By: Infusion: 04/03/23 04:58 Dose: 100 mls/hr Documented By: Admin: 04/03/23 03:58 Dose: 100 mls/hr Documented By: ANDREI Daptomycin 500 mg/ Syringe 10 mls @ 5 mls/min IV NOW STA; Protocol Stop: 04/03/23 01:07 Last Admin: 04/03/23 02:51 Dose: 5 mls/min Documented By: OMAR Potassium Phosphate 6 mmol/ (Sodium Chloride) 102 mls @ 88 mls/hr IV ONE ONE Stop: 04/03/23 02:39 Last Infusion: 04/03/23 04:03 Dose: 0 mls/hr Documented By: Admin: 04/03/23 02:53 Dose: 88 mls/hr Documented By: OMAR Meropenem 1,000 mg/ Syringe 21 mls @ 4 mls/min IV NOW ONE; Protocol Stop: 04/03/23 01:35 Last Admin: 04/03/23 02:48 Dose: 4 mls/min Documented By: OMAR Insulin Aspart (Insulin Aspart Per Unit Charge) 10 units SC NOW STA Stop: 04/03/23 06:00 Last Admin: 04/03/23 06:05 Dose: 10 units Documented By: MENDOZA Co-signed By: ELIO Imaging Data Radiologist's Impression: Foot CT 04/03/23 01:02 Exam(s): CT RIGHT FOOT Without Contrast EXAM: CT Right Lower Extremity Without Intravenous Contrast, Foot CLINICAL HISTORY: Reason for exam: heel ulcer eval for osteo. TECHNIQUE: Axial computed tomography images of the right foot without intravenous contrast. CTDI is 10.38 mGy and DLP is 218.31 mGy-cm. Automated exposure control was utilized for the study. A dose lowering technique was utilized adhering to the principles of ALARA. COMPARISON: No relevant prior studies available. FINDINGS: Bones/joints: There is an oval, approximately 2.5 x 1 cm gas and fluid collection is soft tissue superior to the Achilles tendon insertion upon the calcaneus consistent with abscess. There are calcific fragments as well as 3 tubular 0.4 x 1.6 cm man-made structures within this area. Correlate with surgical history. No acute fracture. No dislocation. Soft tissues: There is subcutaneous emphysema extending over an approximately 4.5 cm transverse by 2.5 cm deep area along the surface of the calcaneus. There is erosion and fragmentation of the calcaneus with gas extending into the bone consistent with osteomyelitis. Severe diffuse subcutaneous edema throughout the foot and ankle. No radiopaque foreign body. IMPRESSION: 1. There is subcutaneous emphysema extending over an approximately 4.5 cm transverse by 2.5 cm deep area along the surface of the calcaneus. There is erosion and fragmentation of the adjacent calcaneus with gas extending into the bone consistent with osteomyelitis. 2. There is an oval, approximately 2.5 x 1 cm gas and fluid collection is soft tissue superior to the Achilles tendon insertion upon the calcaneus consistent with abscess. There are calcific fragments as well as 3 tubular 0.4 x 1.6 cm man-made structures within this area. Correlate with surgical history. Electronically signed by: Elkin Ram MD 04/03/23 02:33 AM Abdomen/Pelvis CT 04/03/23 01:04 Exam(s): CT ABDOMEN + PELVIS Without Contrast EXAM: CT Abdomen and Pelvis Without Intravenous Contrast CLINICAL HISTORY: Reason for exam: abd pain anemia. TECHNIQUE: Axial computed tomography images of the abdomen and pelvis without intravenous contrast. CTDI is 20.72 mGy and DLP is 1176.8 mGy-cm. Automated exposure control was utilized for the study. A dose lowering technique was utilized adhering to the principles of ALARA. COMPARISON: No relevant prior studies available. FINDINGS: Lung bases: Unremarkable. No mass. No consolidation. ABDOMEN: Liver: Unremarkable. Gallbladder and bile ducts: Unremarkable. No calcified stones. No ductal dilation. Pancreas: Unremarkable. No ductal dilation. Spleen: The spleen is enlarged measuring 16.6 cm craniocaudad. Adrenals: Unremarkable. No mass. Kidneys and ureters: The kidneys are unremarkable. No hydronephrosis or ureterolithiasis is seen. Stomach and bowel: Unremarkable. No obstruction. No mucosal thickening. PELVIS: Appendix: The appendix is normal. Bowel loops are nondilated. No acute inflammatory changes are seen involving the bowel. Bladder: Unremarkable. No stones. Reproductive: Unremarkable as visualized. ABDOMEN and PELVIS: Intraperitoneal space: The portal vein is upper normal in diameter measuring 16 mm. No ascites is seen. No free air. Bones/joints: Mild degenerative changes in the spine. No acute fracture or subluxation is seen. Soft tissues: Unremarkable. Vasculature: The abdominal aorta is mildly calcified but nondilated. Lymph nodes: Borderline mild inguinal lymphadenopathy with a 2 mm left side on the right. IMPRESSION: 1. The kidneys are unremarkable. No hydronephrosis or ureterolithiasis is seen. 2. The appendix is normal. Bowel loops are nondilated. No acute inflammatory changes are seen involving the bowel. 3. Splenomegaly. The portal vein is upper normal in diameter. No overt signs of cirrhosis or ascites. Electronically signed by: Elkin Ram MD 04/03/23 02:29 AM Discharge Plan Visit Data Chief Complaint: Shortness of Breath/Dyspnea Stated Complaint: UNABLE TO WALK, SOB ED Provider: Adonis Nuñez Discharge Problem: Diabetic ulcer of right heel, Osteomyelitis of right foot, Hypervolemia, CKD (chronic kidney disease), Hyponatremia, Leukocytosis, Hx of past noncompliance Patient Disposition: Admitted As Inpatient Discharge Instructions Interventions: ED Discharge Assessment Last Done: 04/03/23 03:49
[2023-04-03] MEDS ORDERED: GLUCOSE 40% GEL 15 GM TUBE PO PRN (03:49)
[2023-04-03] MEDS ORDERED: ALUMINUM/MAGNESIUM SUSP 30 ML UDC PO PRN (03:49)
[2023-04-03] MEDS ORDERED: PHARMACY GLYCEMIC MGMT CONSULT PRN (03:49)
[2023-04-03] MEDS ORDERED: DEXTROSE 50% 50 ML SYRINGE IV PRN (03:49)
[2023-04-03] MEDS ORDERED: GLUCOSE 10 TAB/TUBE PO PRN (03:49)
[2023-04-03] MEDS ORDERED: POLYETHYLENE (MIRALAX) 17 GM PACK PO PRN (03:49)
[2023-04-03] MEDS ORDERED: CARBOHYDRATES FOR HYPOGLYCEMIA PO PRN (03:49)
[2023-04-03] MEDS ORDERED: ACETAMINOPHEN 325 MG TAB PO PRN (03:49)
[2023-04-03] MEDS ORDERED: GLUCAGON FOR INJ 1 MG VIAL SQ PRN (03:49)
[2023-04-03] MEDS ORDERED: MAGNESIUM HYDROXIDE SUSP 30 ML UDC PO PRN (03:49)
[2023-04-03] MEDS: MAGNESIUM SULFATE / D5W 1 GM/100 ML BAG IV SCH ×2 (03:58→05:00)
[2023-04-03] MEDS ORDERED: INSULIN ASPART PER UNIT CHARGE SC STA (05:59)
--- NOTE | 2023-04-03 06:40 | History & Physical Report ---
Date of Service April 03, 2023 Assessment & Plan (1) Diabetic ulcer of right heel: Plan: Patient presents to ED with complaints of bilateral lower extremity swelling and diabetic ulcer of right heel. Patient found of elevated white count of 17.5 with neutrophil predominance. ESR and CRP elevated at [address] of the foot demonstrates evidence of osteomyelitis of the calcaneus with erosion and fragmentation as well as gas extending into the bone. Additional question of 2 cm abscess superior to the insertion of the Achilles tendon is noted on the preliminary report. Patient started on broad-spectrum IV antibiotic therapy with IV meropenem given his history of Enterobacter to include Pseudomonas coverage and started on IV daptomycin As patient has history of MRSA in the past defer surgical consultation and ID input to a.m. team (2) Osteomyelitis of right foot: Plan: Patient presents with nonhealing diabetic ulcer of right heel with eschar CT of the foot demonstrates evidence of osteomyelitis of the calcaneus with erosion and fragmentation as well as gas extending into the bone. Broad-spectrum IV antibiotic coverage with IV meropenem and IV daptomycin started Wound care consultation Surgical input (3) CKD (chronic kidney disease): Plan: Patient has a known history of chronic kidney disease secondary to diabetic nephropathy His serum creatinine is 1.6 consistent with CKD 3 Avoid nephrotoxins and NSAIDs Adjust antibiotics for creatinine clearance of 40 (4) Hypervolemia: Plan: Patient found to have evidence of volume overload with bilateral lower extreme edema likely likely secondary to nephrotic syndrome from diabetic nephropathy with accompanying CHF Monitor I's and O's closely Transthoracic echo to assess EF IV loop diuretics to promote diuresis (5) Hyponatremia: Plan: Patient found to have serum sodium level of 125 likely secondary to hypervolemia Check urine lites and osmolality Patient was given loop diuretics to promote diuresis Recheck sodium level in a.m. (6) Leukocytosis: Plan: Patient found to have elevated white count of 17,000 with atrial predominance likely secondary to osteomyelitis Continue broad-spectrum IV antibiotics (7) HLD (hyperlipidemia): Plan: Continue statin therapy with atorvastatin 80 mg daily (8) Hypertension: Plan: Continue home dose of metoprolol with hold parameters Monitor blood pressure trend titrate meds as tolerated (9) Diabetes: Plan: Patient will be placed on sliding scale coverage short acting insulin based on fingerstick monitoring Check hemoglobin A1c level Admission and Anticipated Discharge Date Admission Date: April 03, 2023 History of Present Illness Chief Complaint: Leg swelling and difficulty ambulating Primary Care Provider: Marbella Membreno PA-C This is a 57-year-old male with past medical history significant history of congestive heart failure, stage IV chronic renal disease, history of gastropares is, history of osteomyelitis of the left foot in the past, hypertension, hyperlipidemia, diabetes mellitus, history of prior noncompliance with medical regimen who presents to the emergency department with complaints of worsening lower extremity swelling and difficulty ambulating. Patient reports that he started experiencing increasing fluid retention in his lower extremities and is legs have become heavy so it is difficult for him to walk. Patient also reports having multiple falls secondary to loss of balance recently as well. Patient has history of noncompliance and has not followed up with his recent appointments but [facility] Upon initial arrival to the ED patient was found to be having poor hygiene with dried stool debris found on the clothes which was cleaned in the ED. Patient was also found to have large right heel diabetic foot ulcer with a black eschar noted along with bilateral lower extremity swelling. Patient was also found to have elevated white count of 17.5 with neutrophil predominance along with a hemoglobin of 7.4. Patient's ESR and C-reactive protein were elevated along with a low iron store indicators and low serum sodium level of 125. Patient had blood cultures drawn and patient was treated with empiric antibiotic coverage with meropenem and daptomycin for coverage for resistant Enterobacter and with prior history of MRSA. Allergies Allergy/AdvReac Type Severity Reaction Status Date / Time hydralazine Allergy Mild Rash Verified 07/11/22 13:18 Calcium Channel Blocking Allergy Rash, Verified 07/11/22 13:18 Agent Dilt swelling semaglutide [From Ozempic] Allergy Abdominal Verified 07/11/22 13:18 Pain amitriptyline AdvReac Mild Muscle Verified 07/11/22 13:18 twitching Home Medications Medication Instructions Recorded Confirmed Type atorvastatin 80 mg tablet 80 mg PO QPM 08/02/18 07/11/22 History magnesium oxide 400 mg PO HS 08/02/18 07/11/22 History metoprolol succinate 50 mg 150 mg PO QPM 08/02/18 07/11/22 History tablet,extended release 24 hr omeprazole 20 mg capsule,delayed 20 mg PO QPM #0 caps 08/14/19 07/11/22 Rx release cholecalciferol (vitamin D3) 25 2,000 units PO QPM 11/19/19 07/11/22 History mcg (1,000 unit) chewable tablet (Vitamin D3) gabapentin 600 mg tablet 600 mg PO TID 12/06/19 07/11/22 History polyethylene glycol 3350 17 17 gm PO BID PRN constipation #510 12/23/19 07/11/22 Rx gram/dose oral powder grams fluticasone propionate 50 1 spray intranasal BID 05/05/20 07/11/22 History mcg/actuation nasal spray,suspension (Flonase Allergy Relief) doxazosin 4 mg tablet 4 mg PO HS 10/01/20 07/11/22 History melatonin 10 mg capsule 10 mg PO HS 05/17/21 07/11/22 History magnesium hydroxide 400 mg/5 mL 15 ml PO DAILY PRN Constipation 07/28/21 07/11/22 History oral suspension (Milk of Magnesia) acetaminophen 500 mg tablet 1,000 mg PO TID PRN Pain 08/08/21 07/11/22 History (Tylenol Extra Strength) ascorbic acid (vitamin C) 500 mg 500 mg PO BID 08/08/21 07/11/22 History tablet ymkpjredddew-rcjnunyb-gkqllu 1 tab PO QAM 08/08/21 07/11/22 History tablet (Multivitamin 50 Plus tablet) cyanocobalamin (vitamin B-12) 1,000 mcg PO HS 08/11/21 07/11/22 History 1,000 mcg tablet hydroxyzine HCl 25 mg tablet 25 mg PO Q6 PRN Itching 08/11/21 07/11/22 History mupirocin 2 % topical ointment 1 applic topical TID PRN flare ups 08/12/21 07/11/22 History aspirin 81 mg capsule 81 mg PO Q12 09/21/21 07/11/22 History metolazone 5 mg tablet 5 mg PO BID #180 tabs 10/28/21 07/11/22 Rx insulin glargine 100 unit/mL (3 50 unit subcut HS 12/20/21 07/11/22 History mL) subcutaneous pen (Lantus Solostar U-100 Insulin) prednisone 5 mg tablet 5 mg PO DAILY 12/20/21 07/11/22 History ferrous sulfate 325 mg (65 mg 325 mg PO Q OTHER DAY 02/04/22 07/11/22 History iron) tablet allopurinol 300 mg tablet 750 mg PO DAILY 04/14/22 07/11/22 History bumetanide 2 mg tablet 4 mg PO BID 04/14/22 07/11/22 History omega 9-xai-btf-fish oil 1,000 mg 2 cap PO BID 04/14/22 07/11/22 History (120 mg-180 mg) capsule (Fish Oil) insulin regular hum U-500 conc 500 See Rx Instructions .Route .COMPLEX 06/17/22 07/11/22 History unit/mL subcutaneous soln (Humulin R U-500 (Concentrated) Insulin) Past Med/Surg History Medical History Chronic back pain Chronic diastolic congestive heart failure Chronic kidney disease Plan for possible dialysis in the future (under surveillance), will be placing fistula in near future preventatively Depression Diabetes IDDM Diastolic CHF Dyslipidemia Encounter for pre-operative examination GERD (gastroesophageal reflux disease) Hypertension Migraine Morbid obesity Osteoarthritis Sleep apnea CPAP Temporomandibular joint disorder Occasional clicking, no locking Surgical History History of Achilles tendon repair Right Achilles repair (07/16/21): Grade 2 view, MAC#3, ETT 7.5 + PNB at [facility] History of incision and drainage Left foot multiple with skin graft (total of 5) Left foot I&D (10/08/20): LMA#5 at [facility] Left foot I&D, Stimulan beads (02/12/21): MAC at [facility] History of open reduction and internal fixation (ORIF) procedure Left ankle Bimalleolar Fracture (11/2019) History of placement of ear tubes Right ear History of tonsillectomy and adenoidectomy Hx of cataract surgery R/L Hx of colonoscopy [place] teeth extracted Family History Father Diabetes Mother Diabetes Other Coronary heart disease Hypertension No family history of adverse response to anesthesia Denies family history of Crohn's disease Kidney disease Colorectal cancer Ulcerative colitis Social History Smoking Status: Former smoker Tobacco Type: Cigarettes Second Hand Exposure: Yes; Do You Dip or Chew Tobacco: No; Hx Alcohol Use: No Hx Substance Use: No Preferred Language: Tristanian Communication Ability: Effective Transfer Pumper Required: No Beliefs That Will Affect Care: None marital status: Current Living Situation: Alone Current Living Situation Comment: resides with huma current occupational status: employed 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 Former Feels Safe at Home: Yes Safety Concerns: Feels Safe At This Time Assistive Devices: Cane, CPAP, Glasses and Walker Review of Systems Review of Systems: Constitutional-reports generalized weakness ENT- no epistaxis, no sore throat Respiratory- no shortness of breath noted with exertion. Cardiac-no palpitations, no chest pain, no syncope GI-no nausea, vomiting, diarrhea, -no urinary retention, no urinary incontinence, Musculoskeletal-no joint pain, no muscle tenderness Skin-right lower extremity heel foot ulcer with eschar Neuro-no isolated weakness, Physical Exam Physical Exam: Patient unkempt and disheveled Head and ENT no thyroid enlargement trachea midline Cardiovascular S1-S2 are normal no S3 Lungs bilateral air entry fair no wheezing Abdomen soft nondistended p no rebound tenderness Extremity shows 2+ bilateral lower extremity edema with right heel ulcer with black eschar noted Neurologically no focal deficits Skin shows right heel ulcer with excoriation no cyanosis Results & Data Results & Data Vital Signs (Past 12 Hours) Vital Signs Temp Pulse Pulse Resp BP BP Pulse Ox 04/03/23 06:30 82 04/03/23 05:11 04/03/23 05:11 82 04/03/23 05:04 37.2 C 81 18 123/60 94 04/03/23 03:53 37.7 C H 85 20 127/61 94 04/03/23 03:53 04/03/23 03:15 93 04/03/23 03:10 17 94 04/03/23 03:00 24 92 04/03/23 03:00 131/41 L 04/03/23 02:50 18 92 04/03/23 02:40 82 19 93 04/03/23 02:30 82 24 04/03/23 02:30 143/50 H 04/03/23 02:20 83 21 95 04/03/23 02:00 86 21 113/53 L 94 04/03/23 01:30 83 21 116/55 L 92 04/03/23 01:00 17 147/69 H 94 04/03/23 00:30 95 H 19 122/51 L 95 04/02/23 23:29 04/02/23 22:33 36.8 C 97 H 17 121/68 97 Pulse Ox O2 Del Method O2 Del Method 04/03/23 06:30 04/03/23 05:11 Room Air 04/03/23 05:11 04/03/23 05:04 Room Air 04/03/23 03:53 Room Air 04/03/23 03:53 93 Room Air 04/03/23 03:15 Room Air 04/03/23 03:10 04/03/23 03:00 04/03/23 03:00 04/03/23 02:50 04/03/23 02:40 04/03/23 02:30 04/03/23 02:30 04/03/23 02:20 04/03/23 02:00 Room Air 04/03/23 01:30 Room Air 04/03/23 01:00 Room Air 04/03/23 00:30 Room Air 04/02/23 23:29 Room Air 04/02/23 22:33 Room Air Laboratory Results Short CBC 04/02/23 Range/Units 23:27 WBC 17.56 H (4.8-10.8) K/ul Hgb 7.4 L (14.0-18.0) g/dl Hct 23.4 L (42.0-52.0) % Plt Count 248 (130-400) K/uL BMP 04/02/23 23:27 Sodium 125 L Potassium 4.2 Chloride 91 L Carbon Dioxide 24 BUN 37 H Creatinine 1.63 H Glucose 152 H Calcium 8.6 Cardiac Enzymes 04/02/23 Range/Units 23:27 Total Creatine Kinase 19 L (30-223) U/L Liver Function 04/02/23 Range/Units 23:27 Total Bilirubin 0.7 (0.2-1.0) mg/dl AST 36 (13-39) U/L ALT 30 (7-52) U/L Alkaline Phosphatase 88 (34-104) U/L Albumin 3.1 L (3.4-5.0) gm/dl Diagnostic Findings Foot CT 04/03/23 01:02 Exam(s): CT RIGHT FOOT Without Contrast EXAM: CT Right Lower Extremity Without Intravenous Contrast, Foot CLINICAL HISTORY: Reason for exam: heel ulcer eval for osteo. TECHNIQUE: Axial computed tomography images of the right foot without intravenous contrast. CTDI is 10.38 mGy and DLP is 218.31 mGy-cm. Automated exposure control was utilized for the study. A dose lowering technique was utilized adhering to the principles of ALARA. COMPARISON: No relevant prior studies available. FINDINGS: Bones/joints: There is an oval, approximately 2.5 x 1 cm gas and fluid collection is soft tissue superior to the Achilles tendon insertion upon the calcaneus consistent with abscess. There are calcific fragments as well as 3 tubular 0.4 x 1.6 cm man-made structures within this area. Correlate with surgical history. No acute fracture. No dislocation. Soft tissues: There is subcutaneous emphysema extending over an approximately 4.5 cm transverse by 2.5 cm deep area along the surface of the calcaneus. There is erosion and fragmentation of the calcaneus with gas extending into the bone consistent with osteomyelitis. Severe diffuse subcutaneous edema throughout the foot and ankle. No radiopaque foreign body. IMPRESSION: 1. There is subcutaneous emphysema extending over an approximately 4.5 cm transverse by 2.5 cm deep area along the surface of the calcaneus. There is erosion and fragmentation of the adjacent calcaneus with gas extending into the bone consistent with osteomyelitis. 2. There is an oval, approximately 2.5 x 1 cm gas and fluid collection is soft tissue superior to the Achilles tendon insertion upon the calcaneus consistent with abscess. There are calcific fragments as well as 3 tubular 0.4 x 1.6 cm man-made structures within this area. Correlate with surgical history. Electronically signed by: Elkin Ram MD 04/03/23 02:33 AM Abdomen/Pelvis CT 04/03/23 01:04 Exam(s): CT ABDOMEN + PELVIS Without Contrast EXAM: CT Abdomen and Pelvis Without Intravenous Contrast CLINICAL HISTORY: Reason for exam: abd pain anemia. TECHNIQUE: Axial computed tomography images of the abdomen and pelvis without intravenous contrast. CTDI is 20.72 mGy and DLP is 1176.8 mGy-cm. Automated exposure control was utilized for the study. A dose lowering technique was utilized adhering to the principles of ALARA. COMPARISON: No relevant prior studies available. FINDINGS: Lung bases: Unremarkable. No mass. No consolidation. ABDOMEN: Liver: Unremarkable. Gallbladder and bile ducts: Unremarkable. No calcified stones. No ductal dilation. Pancreas: Unremarkable. No ductal dilation. Spleen: The spleen is enlarged measuring 16.6 cm craniocaudad. Adrenals: Unremarkable. No mass. Kidneys and ureters: The kidneys are unremarkable. No hydronephrosis or ureterolithiasis is seen. Stomach and bowel: Unremarkable. No obstruction. No mucosal thickening. PELVIS: Appendix: The appendix is normal. Bowel loops are nondilated. No acute inflammatory changes are seen involving the bowel. Bladder: Unremarkable. No stones. Reproductive: Unremarkable as visualized. ABDOMEN and PELVIS: Intraperitoneal space: The portal vein is upper normal in diameter measuring 16 mm. No ascites is seen. No free air. Bones/joints: Mild degenerative changes in the spine. No acute fracture or subluxation is seen. Soft tissues: Unremarkable. Vasculature: The abdominal aorta is mildly calcified but nondilated. Lymph nodes: Borderline mild inguinal lymphadenopathy with a 2 mm left side on the right. IMPRESSION: 1. The kidneys are unremarkable. No hydronephrosis or ureterolithiasis is seen. 2. The appendix is normal. Bowel loops are nondilated. No acute inflammatory changes are seen involving the bowel. 3. Splenomegaly. The portal vein is upper normal in diameter. No overt signs of cirrhosis or ascites. Electronically signed by: Elkin Ram MD 04/03/23 02:29 AM Code Status & VTE Plan VTE Prophylaxis Plan VTE Prophylaxis will be ordered: Yes PG Care Time/CCT Total # of Minutes Spent Total Time Spent with Patient: Total time spent is greater than 50% in coordination of care (as documented) at patient's floor/unit and/or counseling patient: Coding Level of Care Code 91231 INT INP/OBS CARE 2/55MIN Diagnoses Diabetic ulcer of right heel E11.621; L97.419 Osteomyelitis of right foot M86.9 CKD (chronic kidney disease) N18.9 Hypervolemia E87.70 Hyponatremia E87.1 Leukocytosis D72.829 HLD (hyperlipidemia) E78.5 Hypertension I10 Hypertension type: essential hypertension Diabetes E11.621; L97.509; Z79.4 Diabetes mellitus type: type 2 Diabetes mellitus prison insulin use: with termite control technician use Diabetes mellitus complication status: with skin complications Diabetes mellitus complication detail: with foot ulcer (8) Hypertension Hypertension type: essential hypertension Qualified Code(s): I10 - Essential (primary) hypertension (9) Diabetes Diabetes mellitus type: type 2 Diabetes mellitus termite control technician insulin use: with prison use Diabetes mellitus complication status: with skin complications Diabetes mellitus complication detail: with foot ulcer Qualified Code(s): E11.621 - Type 2 diabetes mellitus with foot ulcer; L97.509 - Non-pressure chronic ulcer of other part of unspecified foot with unspecified severity; Z79.4 - termite control technician (current) use of insulin
[2023-04-03 07:04] LABS: Appearance Urine Clear (Clear); Bacteria Urine Automated Negative (Negative); Bilirubin Urine Negative (Negative); Blood Urine Negative (Negative); Color Urine Dark Yellow; Glucose Urine UA Negative (Negative); Ketones Urine Trace (Negative); Leukocyte Esterase Urine Negative (Negative); Nitrite Urine Negative (Negative); Protein Urine 1+ (Negative); RBC Urine Automated 0-4 /hpf (0-4); Specific Gravity Urine 1.018 (1.000-1.030); Urobilinogen Urine Negative (Negative)
[2023-04-03] MEDS ORDERED: INSULIN ASPART PER UNIT CHARGE SC ONE (07:30)
[2023-04-03] MEDS ORDERED: INSULIN ASPART PER UNIT CHARGE SC SCH (07:30)
[2023-04-03 08:04] LABS: Estimated Average Glucose 235 mg/dl; Hemoglobin A1C 9.8 % (4.5-5.6)
--- NOTE | 2023-04-03 08:18 | XRay Report ---
XR chest 1V portable CLINICAL HISTORY: Chest pain, nonspecific COMPARISON STUDY: Chest radiograph May 10, 2022. FINDINGS: There is no pneumothorax or pleural effusion. Cardiomegaly is unchanged. There is pulmonary vascular congestion. No consolidation is identified to suggest pneumonia. IMPRESSION: Cardiomegaly with pulmonary vascular congestion. ACT 112: Negative or not required by law. Electronically signed by: Rafat Powell M.D. 04/03/2023 8:17 AM
[2023-04-03] MEDS ORDERED: LANTUS PER UNIT CHARGE SC SCH (09:00)
[2023-04-03] MEDS ORDERED: ASPIRIN 81 MG ECTAB PO SCH (09:00)
[2023-04-03] MEDS ORDERED: NON-FORMULARY MEDICATION (Aspirin 81 mg capsule) PO SCH (09:00)
[2023-04-03] MEDS ORDERED: FUROSEMIDE INJ 20 MG/2 ML VIAL IV SCH (09:00)
[2023-04-03] MEDS: HEPARIN SOD 5,000 UNIT/0.5 ML VIAL SQ SCH ×2 (09:03→22:45)
[2023-04-03] MEDS ORDERED: metroNIDAZOLE 500 MG/100 ML BAG IV SCH (10:00)
--- NOTE | 2023-04-03 10:27 | Nephrology Consultation ---
Date of Consultation April 03, 2023 Assessment & Plan (1) CKD (chronic kidney disease): * Kidney function is stable at this time * CKD stage G3b/A2 (moderate impairment). Baseline Cr has been 2.0 w/ EGFR 36 cc/min. Urine sediment has been acellular. UPCR 0.2. Renal US 08/31 revealed 11 cm kidneys, no obstruction/stone/mass. Kidney function has fluctuated w/ volume status. Renal impairment is due to DKD, diastolic heart failure (2) Hyponatremia: * Mild hyponatremia, likely chronic, asymptomatic * Volume status is difficult to assess * Thiazide diuretic may have been contributing * Hold Metolazone. Suspect patient will diurese using loop diuretic while on a low Na diet * Monitor PRP (3) Lymphedema: * Will provide Lasix 100 mg IV BID and monitor volume status, UO, kidney function and electrolyte balance * Hold Metolazone due to hyponatremia * Recommend low Na diet (4) Diabetic ulcer of right heel: * Agree w/ broad spectrum antibiotic therapy * Will need surgical evaluation History of Present Illness Reason for Consultation: Hyponatremia, CKD Attending Physician: Dona Gregory MD History of Present Illness Mr. Swartz is a 57 year old male who is seen at the request of Dr. Gregory for evaluation of hyponatremia, CKD. Mr. Swartz is known to [facility]. His last OV was 07/02/22. He was advised to return in 2 months for reevaluation but was lost to follow up. He receives the majority of his medical care through the [facility]. Mr. Swartz's medical history is summarized as follows: Mr. Swartz has CKD stage G3b/A2 (moderate impairment). Baseline Cr has been 2.0 w/ EGFR 36 cc/min. Urine sediment has been acellular. UPCR 0.2. Renal US 08/31 revealed 11 cm kidneys, no obstruction/stone/mass. Kidney function has fluctuated w/ volume status. Renal impairment is due to DKD, diastolic heart failure. L RC AVF was created 08/04/[address] Leon. Mr. Swartz's medical history is also significant for AODM, chronic LE lymphedema, hypercholesterolemia, obesity, WHIT, GERD. Mr. Swartz lives alone. His diet consists of processed food (El noodles). He has required several hospitalizations for IV diuretic therapy. 05/04 echocardiogram revealed LVEF 55-60%, grade II diastolic dysfunction. 06/03 [facility] Advance Care Planning indicated that Mr. Swartz desires full code status but understands that his medical noncompliance makes him a poor dialysis candidated if his kidney function should worsen. Mr. Swartz presented to [facility] EMD 04/02/23 with c/o progressive lymphedema limiting his ablility to ambulate. He reports that he has received diuretic therapy through the [facility] and remains on Bumex 4 mg po BID and Metolazone 5 mg po BID. Both feet were found to have tense edema. R foot had a necrotic heel ulcer draining foul smelling fluid. R foot CT reveals osteomyelitis of the calcaneous with gas extending into the bone and a 2 cm abscess near the achilles tendon Allergies Allergy/AdvReac Type Severity Reaction Status Date / Time hydralazine Allergy Mild Rash Verified 07/11/22 13:18 Calcium Channel Blocking Allergy Rash, Verified 07/11/22 13:18 Agent Dilt swelling semaglutide [From Ozempic] Allergy Abdominal Verified 07/11/22 13:18 Pain amitriptyline AdvReac Mild Muscle Verified 07/11/22 13:18 twitching Home Medications Medication Instructions Recorded Confirmed Type atorvastatin 80 mg tablet 80 mg PO QPM 08/02/18 07/11/22 History magnesium oxide 400 mg PO HS 08/02/18 07/11/22 History metoprolol succinate 50 mg 150 mg PO QPM 08/02/18 07/11/22 History tablet,extended release 24 hr omeprazole 20 mg capsule,delayed 20 mg PO QPM #0 caps 08/14/19 07/11/22 Rx release cholecalciferol (vitamin D3) 25 2,000 units PO QPM 11/19/19 07/11/22 History mcg (1,000 unit) chewable tablet (Vitamin D3) gabapentin 600 mg tablet 600 mg PO TID 12/06/19 07/11/22 History polyethylene glycol 3350 17 17 gm PO BID PRN constipation #510 12/23/19 07/11/22 Rx gram/dose oral powder grams fluticasone propionate 50 1 spray intranasal BID 05/05/20 07/11/22 History mcg/actuation nasal spray,suspension (Flonase Allergy Relief) doxazosin 4 mg tablet 4 mg PO HS 10/01/20 07/11/22 History melatonin 10 mg capsule 10 mg PO HS 05/17/21 07/11/22 History magnesium hydroxide 400 mg/5 mL 15 ml PO DAILY PRN Constipation 07/28/21 07/11/22 History oral suspension (Milk of Magnesia) acetaminophen 500 mg tablet 1,000 mg PO TID PRN Pain 08/08/21 07/11/22 History (Tylenol Extra Strength) ascorbic acid (vitamin C) 500 mg 500 mg PO BID 08/08/21 07/11/22 History tablet sphkuhzoeanl-matyqueg-ginnce 1 tab PO QAM 08/08/21 07/11/22 History tablet (Multivitamin 50 Plus tablet) cyanocobalamin (vitamin B-12) 1,000 mcg PO HS 08/11/21 07/11/22 History 1,000 mcg tablet hydroxyzine HCl 25 mg tablet 25 mg PO Q6 PRN Itching 08/11/21 07/11/22 History mupirocin 2 % topical ointment 1 applic topical TID PRN flare ups 08/12/21 07/11/22 History aspirin 81 mg capsule 81 mg PO Q12 09/21/21 07/11/22 History metolazone 5 mg tablet 5 mg PO BID #180 tabs 10/28/21 07/11/22 Rx insulin glargine 100 unit/mL (3 50 unit subcut HS 12/20/21 07/11/22 History mL) subcutaneous pen (Lantus Solostar U-100 Insulin) prednisone 5 mg tablet 5 mg PO DAILY 12/20/21 07/11/22 History ferrous sulfate 325 mg (65 mg 325 mg PO Q OTHER DAY 02/04/22 07/11/22 History iron) tablet allopurinol 300 mg tablet 750 mg PO DAILY 04/14/22 07/11/22 History bumetanide 2 mg tablet 4 mg PO BID 04/14/22 07/11/22 History omega 1-gbx-ehh-fish oil 1,000 mg 2 cap PO BID 04/14/22 07/11/22 History (120 mg-180 mg) capsule (Fish Oil) insulin regular hum U-500 conc 500 See Rx Instructions .Route .COMPLEX 06/17/22 07/11/22 History unit/mL subcutaneous soln (Humulin R U-500 (Concentrated) Insulin) Patient History Medical History Chronic back pain Chronic diastolic congestive heart failure Chronic kidney disease Plan for possible dialysis in the future (under surveillance), will be placing fistula in near future preventatively Depression Diabetes IDDM Diastolic CHF Dyslipidemia Encounter for pre-operative examination GERD (gastroesophageal reflux disease) Hypertension Migraine Morbid obesity Osteoarthritis Sleep apnea CPAP Temporomandibular joint disorder Occasional clicking, no locking Surgical History History of Achilles tendon repair Right Achilles repair (07/16/21): Grade 2 view, MAC#3, ETT 7.5 + PNB at [facility] History of incision and drainage Left foot multiple with skin graft (total of 5) Left foot I&D (10/08/20): LMA#5 at [facility] Left foot I&D, Stimulan beads (02/12/21): MAC at [facility] History of open reduction and internal fixation (ORIF) procedure Left ankle Bimalleolar Fracture (11/2019) History of placement of ear tubes Right ear History of tonsillectomy and adenoidectomy Hx of cataract surgery R/L Hx of colonoscopy [place] teeth extracted Family History Father Diabetes Mother Diabetes Other Coronary heart disease Hypertension No family history of adverse response to anesthesia Denies family history of Crohn's disease Kidney disease Colorectal cancer Ulcerative colitis Social History Smoking Status: Former smoker Tobacco Type: Cigarettes Second Hand Exposure: Yes; Do You Dip or Chew Tobacco: No; Hx Alcohol Use: No Hx Substance Use: No Preferred Language: Portuguese Communication Ability: Effective Boom Tender Required: No Beliefs That Will Affect Care: None marital status: Current Living Situation: Alone Current Living Situation Comment: resides with huma current occupational status: employed 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 Feels Safe at Home: Yes Safety Concerns: Feels Safe At This Time Assistive Devices: Cane, CPAP, Glasses and Walker Review of Systems Constitutional: no fever Eyes: no worsening vision Ear, Nose, Mouth, Throat: no problem reported Respiratory: no cough and no dyspnea Cardiovascular: no chest pain Gastrointestinal: no abdominal pain, no vomiting and no diarrhea/loose stools Genitourinary: no dysuria, no urinary hesitancy, no hematuria or no flank pain Physical Exam Constitutional: + disheveled; no acute distress Eyes: PERRL, conjunctivae normal, anicteric sclerae ENMT: external ear and nose normal, oropharynx normal Neck: trachea midline, no thyromegaly Respiratory: normal respiratory effort, lungs clear to auscultation Cardiovascular: Rate/Rhythm: regular rate and regular rhythm Extremities: + edema (3+ LE lymphedema) Gastrointestinal (Abdomen): normal bowel sounds, soft, nontender, no hepatosplenomegaly Musculoskeletal: Both feet appear clubbed, chronic LE lymphedema, necrotic ulcer w/ foul drainage R foot Neurologic: Speech / Cognition: normal speech and normal cognition Results & Data Vital Signs (Past 12 Hours) Vital Signs Temp Pulse Pulse Resp BP BP Pulse Ox 04/03/23 08:00 37.5 C 85 20 124/69 92 04/03/23 06:30 82 04/03/23 05:11 04/03/23 05:11 82 04/03/23 05:04 37.2 C 81 18 123/60 94 04/03/23 03:53 37.7 C H 85 20 127/61 94 04/03/23 03:53 04/03/23 03:15 93 04/03/23 03:10 17 94 04/03/23 03:00 24 92 04/03/23 03:00 131/41 L 04/03/23 02:50 18 92 04/03/23 02:40 82 19 93 04/03/23 02:30 82 24 04/03/23 02:30 143/50 H 04/03/23 02:20 83 21 95 04/03/23 02:00 86 21 113/53 L 94 04/03/23 01:30 83 21 116/55 L 92 04/03/23 01:00 17 147/69 H 94 04/03/23 00:30 95 H 19 122/51 L 95 04/02/23 23:29 04/02/23 22:33 36.8 C 97 H 17 121/68 97 Pulse Ox O2 Del Method O2 Del Method 04/03/23 08:00 Room Air 04/03/23 06:30 04/03/23 05:11 Room Air 04/03/23 05:11 04/03/23 05:04 Room Air 04/03/23 03:53 Room Air 04/03/23 03:53 93 Room Air 04/03/23 03:15 Room Air 04/03/23 03:10 04/03/23 03:00 04/03/23 03:00 04/03/23 02:50 04/03/23 02:40 04/03/23 02:30 04/03/23 02:30 04/03/23 02:20 04/03/23 02:00 Room Air 04/03/23 01:30 Room Air 04/03/23 01:00 Room Air 04/03/23 00:30 Room Air 04/02/23 23:29 Room Air 04/02/23 22:33 Room Air Laboratory Results Laboratory Tests 09/20/21 04/30/22 05/13/22 Unknown 00:00 14:21 WBC Hgb Hct Plt Count ESR Sodium Potassium Chloride Carbon Dioxide BUN Creatinine 1.68 H 2.0 H Glucose POC Glucose 338 H* Hemoglobin A1c Osmolality Phosphorus Magnesium Iron Ferritin C-Reactive Protein Albumin Urine Color Urine Appearance Ur Specific [place] Urine Protein Urine Glucose (UA) Urine Blood Ur Leukocyte Esterase Urine RBC (Auto) Urine Osmolality Ur Random Sodium SARS-CoV-2, RNA, NAAT 04/02/23 04/02/23 04/02/23 23:27 23:27 23:27 WBC 17.56 H Hgb 7.4 L Hct 23.4 L Plt Count 248 ESR 63 H Sodium 125 L Potassium 4.2 Chloride 91 L Carbon Dioxide 24 BUN 37 H Creatinine 1.63 H Glucose 152 H POC Glucose Hemoglobin A1c Osmolality Phosphorus 1.4 L* Magnesium 1.4 L Iron 18 L Ferritin 2276.0 H C-Reactive Protein 15.98 H Albumin 3.1 L Urine Color Urine Appearance Ur Specific [place] Urine Protein Urine Glucose (UA) Urine Blood Ur Leukocyte Esterase Urine RBC (Auto) Urine Osmolality Ur Random Sodium SARS-CoV-2, RNA, NAAT 04/02/23 04/02/23 04/03/23 23:27 23:27 02:06 WBC Hgb Hct Plt Count ESR Sodium Potassium Chloride Carbon Dioxide BUN Creatinine Glucose POC Glucose Hemoglobin A1c 9.8 H Osmolality 275 L Phosphorus Magnesium Iron Ferritin C-Reactive Protein Albumin Urine Color Urine Appearance Ur Specific [place] Urine Protein Urine Glucose (UA) Urine Blood Ur Leukocyte Esterase Urine RBC (Auto) Urine Osmolality Ur Random Sodium SARS-CoV-2, RNA, NAAT NEGATIVE 04/03/23 04/03/23 04/03/23 Unknown Unknown Unknown WBC Hgb Hct Plt Count ESR Sodium Potassium Chloride Carbon Dioxide BUN Creatinine Glucose POC Glucose Hemoglobin A1c Osmolality Phosphorus Magnesium Iron Ferritin C-Reactive Protein Albumin Urine Color Dark Yellow Urine Appearance Clear Ur Specific [place] 1.018 Urine Protein 1+ H Urine Glucose (UA) Negative Urine Blood Negative Ur Leukocyte Esterase Negative Urine RBC (Auto) 0-4 Urine Osmolality 312 L Ur Random Sodium < 10 SARS-CoV-2, RNA, NAAT Diagnostic Findings 04/03/[address]: 1. There is subcutaneous emphysema extending over an approximately 4.5 cm transverse by 2.5 cm deep area along the surface of the calcaneus. There is erosion and fragmentation of the adjacent calcaneus with gas extending into the bone consistent with osteomyelitis. 2. There is an oval, approximately 2.5 x 1 cm gas and fluid collection is soft tissue superior to the Achilles tendon insertion upon the calcaneus consistent with abscess. There are calcific fragments as well as 3 tubular 0.4 x 1.6 cm man-made structures within this area. Correlate with surgical history. PG Care Time/CCT Total # of Minutes Spent Total Time Spent with Patient: Total time spent is greater than 50% in coordination of care (as documented) at patient's floor/unit and/or counseling patient: Coding Level of Care Code 04285 IN/OBS CONSULT LVL 5,80M Diagnoses CKD (chronic kidney disease) N18.9 Hyponatremia E87.1 Lymphedema I89.0 Diabetic ulcer of right heel E11.621; L97.419
[2023-04-03] MEDS ORDERED: VANCOMYCIN CONSULT ACTIVE PRN (11:00)
[2023-04-03] MEDS ORDERED: VANCOMYCIN HCL 2,750 MG in SODIUM CHLORIDE 0.9% 500 ML IV ONE (11:00)
[2023-04-03] MEDS ORDERED: PERFLUTREN LIPID MICROSPHERE (DEFINITY) IV ONE (11:25)
[2023-04-03] MEDS: MEROPENEM 500 MG in SYRINGE 0 ML IV SCH ×3 (11:28→22:47)
[2023-04-03 11:42] LABS: Albumin Globulin Ratio 0.8 (0.9-2); Albumin Level 2.6 gm/dl (3.4-5.0); BUN Creatinine Ratio 26.8 (10-20); Bilirubin,Total 0.5 mg/dl (0.2-1.0); Calcium 8.2 mg/dl (8.6-10.3); Creatinine Clr Calc Pharmacy 73.2 ml/min; Est GFR (African American) 65.8 ml/min; Est GFR (Non-African American) 56.7 ml/min; Globulin 3.2 gm/dl (2.5-4.0); Magnesium 1.7 mg/dl (1.7-2.4); Potassium 3.9 mmol/L (3.5-5.1); Total Protein 5.8 gm/dl (6.0-8.3)
[2023-04-03] MEDS ORDERED: FUROSEMIDE 10 MG/ML 10 ML VIAL IV SCH (11:45)
--- NOTE | 2023-04-03 11:54 | Electrocardiogram Report ---
Test Reason : Blood Pressure : / mmHG Vent. Rate : 083 BPM Atrial Rate : 083 BPM P-R Int : 176 ms QRS Dur : 086 ms QT Int : 388 ms P-R-T Axes : 100 -44 040 degrees QTc Int : 455 ms Poor data quality, interpretation may be adversely affected Sinus rhythm with Premature atrial complexes Left axis deviation Low voltage QRS Cannot rule out Anterior infarct (cited on or before 03-APR-2023) Abnormal ECG When compared with ECG of 10-MAY-2022 18:37, Premature atrial complexes are now Present Confirmed by Malik Paulino ([id number]) on 04/03/2023 11:54:26 AM Referred By: REFERRED SELF Confirmed By:Malik Paulino
[2023-04-03] MEDS: INSULIN ASPART PER UNIT CHARGE SC SCH ×3 (12:01→21:14)
[2023-04-03 12:04] LABS: Hematocrit (blood only) 20.9 % (42.0-52.0); Hemoglobin 6.6 g/dl (14.0-18.0); Mean Corpuscular Hemoglobin 26.4 pg (25.0-34.0); Mean Corpuscular Hgb Conc 31.6 g/dL (32.0-36.0); Mean Corpuscular Volume 83.6 fL (80.0-100.0); Platelet Count 211 K/uL (130-400); RDW Coefficient of Variation 14.8 % (11.5-14.5); RDW Standard Deviation 45.2 fL (36.4-46.3); White Blood Count 14.57 K/ul (4.8-10.8)
[2023-04-03 12:05] LABS: Basophils # (auto) 0.04 K/uL (0-0.2); Basophils % (auto) 0.3 %; Eosinophils # (auto) 0.17 K/uL (0-0.50); Eosinophils % (auto) 1.2 %; Immature Granulocytes # (auto) 0.12 K/uL (0.01-0.20); Immature Granulocytes % (auto) 0.8 %; Lymphocytes # (auto) 2.21 K/uL (1.2-3.4); Lymphocytes % (auto) 15.2 %; Monocytes # (auto) 1.24 K/uL (0.11-0.59); Monocytes % (auto) 8.5 %; Neutrophils # (auto) 10.79 K/uL (1.40-6.50); RBC Morphology Unremarkable
--- NOTE | 2023-04-03 12:48 | Hospitalist Progress Note ---
Date of Service April 03, 2023 Assessment & Plan (1) Diabetic ulcer of right heel: Plan: Patient presents to ED with complaints of bilateral lower extremity swelling and diabetic ulcer of right heel with osteomyelitis, Achilles tendon abscess Patient found of elevated white count of 17.5 with neutrophil predominance. ESR and CRP elevated at [address] of the foot demonstrates evidence of osteomyelitis of the calcaneus with erosion and fragmentation as well as gas extending into the bone. Additional question of 2 cm abscess superior to the insertion of the Achilles tendon is noted on the preliminary report. Foot is severely infected. Blood cultures now positive for Streptococcus Ordered arterial Doppler right lower extremity-shows diffuse atherosclerotic disease but no focal stenosis He typically sees Dr. Bernardo, but he is out of town for 10 more days. Consult podiatry/Dr. Card for further evaluation for debridement versus BKA Continue broad-spectrum antibiotics-ordered meropenem and vancomycin which will provide coverage for previous resistant gram-negative bacteria as well as MRSA and anaerobes Check wound culture Follow blood cultures Wound care consult placed N.p.o. after midnight for surgical debridement of the foot tomorrow (2) Bacteremia: Plan: With Streptococcus in blood cultures Follow-up for final ID and sensitivity Continue meropenem and vancomycin Echocardiogram without valvular vegetation Follow for need for EDEN Likely source is the infected foot (3) Osteomyelitis of right foot: Plan: As above (4) Anemia: Plan: Hemoglobin low on admission at 7.4 and further drop to 6.6 today-baseline hemoglobin is 11 but last checked in 04/2022 No obvious bleeding that he has noticed except for some occasional bleeding from the foot He does have chronic kidney disease and some anemia could be from this Serum iron checked and is low, B12 and folate are normal, TSH normal Transfuse 1 unit PRBCs for now, further transfusion if needed in the morning- caution due to significant volume overload pre-existing Follow CBC (5) CKD (chronic kidney disease): Plan: Patient has a known history of chronic kidney disease secondary to diabetic nephropathy His serum creatinine is 1.6 consistent with CKD 3 Here with significant hypervolemia with severe peripheral edema Avoid nephrotoxins and NSAIDs Consult nephrology-appreciate recommendations With hyponatremia fairly significant at 125-likely from metolazone Hold home metolazone Giving Lasix 100 Mg IV twice daily as per nephrology Check echo-negative (6) Hyponatremia: Plan: Patient found to have serum sodium level of 125 likely secondary to hypervolemia As above Diuresing, follow BMP (7) HLD (hyperlipidemia): Plan: Continue statin therapy with atorvastatin 80 mg daily (8) Hypertension: Plan: Continue home dose of metoprolol with hold parameters Continue diuresis Monitor blood pressure (9) Diabetes: Plan: Patient will be placed on sliding scale coverage short acting insulin based on fingerstick monitoring hemoglobin A1c level quite elevated at 9.8% Pharmacy is managing insulin (10) WHIT (obstructive sleep apnea): Plan: Continue home CPAP (11) PAD (peripheral artery disease): Plan: Noted to have diffuse atherosclerotic disease on arterial Doppler of the right lower extremity Continue home aspirin and atorvastatin Consider vascular surgery consultation Plan DVT prophylaxis-hold SQ heparin Disposition-continued stay in PCU Admission and Anticipated Discharge Date Admission Date: April 03, 2023 Subjective Patient denies pain in the foot, some occasional shortness of breath is present. He is eating regular meals. He reports he has not moved his bowels in over 1 week. He notes that his foot has been infected for quite some time but finally felt bad enough to come into the hospital. I discussed with him that ultimately he may end up requiring an amputation I discussed his care with podiatry as well as vascular surgery Telemetry with normal sinus rhythm with rates in the 80s Physical Exam Constitutional: WD/WN, vitals as above + morbidly obese Neck: trachea midline, no thyromegaly Respiratory: normal respiratory effort, lungs clear to auscultation Cardiovascular: Rate/Rhythm: regular rate and regular rhythm Extremities: + edema (4+, woody pitting edema of the legs to the thighs bilaterally) Cannot palpate pedal pulses due to severe edema Gastrointestinal (Abdomen): normal bowel sounds, soft, nontender, no hepatosplenomegaly Skin: Right plantar surface of foot with large black eschar over heel, surrounding erythema, cracked heel with copious purulent drainage coming out Extremely foul odor emanating NECK: Supple, nontender, no lymphadenopathy. Thickened flaky dry skin throughout lower extremities bilaterally Neurologic: moves all extremities and awake; no focal motor deficits Psychiatric: A+Ox3, euthymic affect Results & Data Results & Data Vital Signs (Past 12 Hours) Vital Signs Temp Pulse Pulse Resp BP BP Pulse Ox 04/03/23 10:54 37.6 C H 86 20 134/74 93 04/03/23 08:30 04/03/23 08:00 37.5 C 85 20 124/69 92 04/03/23 06:30 82 04/03/23 05:11 04/03/23 05:11 82 04/03/23 05:04 37.2 C 81 18 123/60 94 04/03/23 03:53 37.7 C H 85 20 127/61 94 04/03/23 03:53 04/03/23 03:15 93 04/03/23 03:10 17 94 04/03/23 03:00 24 92 04/03/23 03:00 131/41 L 04/03/23 02:50 18 92 04/03/23 02:40 82 19 93 04/03/23 02:30 82 24 04/03/23 02:30 143/50 H 04/03/23 02:20 83 21 95 04/03/23 02:00 86 21 113/53 L 94 04/03/23 01:30 83 21 116/55 L 92 04/03/23 01:00 17 147/69 H 94 Pulse Ox O2 Del Method O2 Del Method 04/03/23 10:54 Room Air 04/03/23 08:30 CPAP 04/03/23 08:00 Room Air 04/03/23 06:30 04/03/23 05:11 Room Air 04/03/23 05:11 04/03/23 05:04 Room Air 04/03/23 03:53 Room Air 04/03/23 03:53 93 Room Air 04/03/23 03:15 Room Air 04/03/23 03:10 04/03/23 03:00 04/03/23 03:00 04/03/23 02:50 04/03/23 02:40 04/03/23 02:30 04/03/23 02:30 04/03/23 02:20 04/03/23 02:00 Room Air 04/03/23 01:30 Room Air 04/03/23 01:00 Room Air Laboratory Results CBC, BMP, B12, folate, troponin, hemoglobin A1c, magnesium, TSH, procalcitonin, CRP, ESR, iron studies reviewed Blood cultures reviewed Diagnostic Findings Chest X-Ray 04/02/23 22:49 XR chest 1V portable CLINICAL HISTORY: Chest pain, nonspecific COMPARISON STUDY: Chest radiograph May 10, 2022. FINDINGS: There is no pneumothorax or pleural effusion. Cardiomegaly is unchanged. There is pulmonary vascular congestion. No consolidation is identified to suggest pneumonia. IMPRESSION: Cardiomegaly with pulmonary vascular congestion. ACT 112: Negative or not required by law. Electronically signed by: Rafat Powell M.D. 04/03/2023 8:[address] 04/03/23 01:02 Exam(s): CT RIGHT FOOT Without Contrast EXAM: CT Right Lower Extremity Without Intravenous Contrast, Foot CLINICAL HISTORY: Reason for exam: heel ulcer eval for osteo. TECHNIQUE: Axial computed tomography images of the right foot without intravenous contrast. CTDI is 10.38 mGy and DLP is 218.31 mGy-cm. Automated exposure control was utilized for the study. A dose lowering technique was utilized adhering to the principles of ALARA. COMPARISON: No relevant prior studies available. FINDINGS: Bones/joints: There is an oval, approximately 2.5 x 1 cm gas and fluid collection is soft tissue superior to the Achilles tendon insertion upon the calcaneus consistent with abscess. There are calcific fragments as well as 3 tubular 0.4 x 1.6 cm man-made structures within this area. Correlate with surgical history. No acute fracture. No dislocation. Soft tissues: There is subcutaneous emphysema extending over an approximately 4.5 cm transverse by 2.5 cm deep area along the surface of the calcaneus. There is erosion and fragmentation of the calcaneus with gas extending into the bone consistent with osteomyelitis. Severe diffuse subcutaneous edema throughout the foot and ankle. No radiopaque foreign body. IMPRESSION: 1. There is subcutaneous emphysema extending over an approximately 4.5 cm transverse by 2.5 cm deep area along the surface of the calcaneus. There is erosion and fragmentation of the adjacent calcaneus with gas extending into the bone consistent with osteomyelitis. 2. There is an oval, approximately 2.5 x 1 cm gas and fluid collection is soft tissue superior to the Achilles tendon insertion upon the calcaneus consistent with abscess. There are calcific fragments as well as 3 tubular 0.4 x 1.6 cm man-made structures within this area. Correlate with surgical history. Electronically signed by: Elkin Ram MD 04/03/23 02:33 AM Abdomen/Pelvis CT 04/03/23 01:04 Exam(s): CT ABDOMEN + PELVIS Without Contrast EXAM: CT Abdomen and Pelvis Without Intravenous Contrast CLINICAL HISTORY: Reason for exam: abd pain anemia. TECHNIQUE: Axial computed tomography images of the abdomen and pelvis without intravenous contrast. CTDI is 20.72 mGy and DLP is 1176.8 mGy-cm. Automated exposure control was utilized for the study. A dose lowering technique was utilized adhering to the principles of ALARA. COMPARISON: No relevant prior studies available. FINDINGS: Lung bases: Unremarkable. No mass. No consolidation. ABDOMEN: Liver: Unremarkable. Gallbladder and bile ducts: Unremarkable. No calcified stones. No ductal dilation. Pancreas: Unremarkable. No ductal dilation. Spleen: The spleen is enlarged measuring 16.6 cm craniocaudad. Adrenals: Unremarkable. No mass. Kidneys and ureters: The kidneys are unremarkable. No hydronephrosis or ureterolithiasis is seen. Stomach and bowel: Unremarkable. No obstruction. No mucosal thickening. PELVIS: Appendix: The appendix is normal. Bowel loops are nondilated. No acute inflammatory changes are seen involving the bowel. Bladder: Unremarkable. No stones. Reproductive: Unremarkable as visualized. ABDOMEN and PELVIS: Intraperitoneal space: The portal vein is upper normal in diameter measuring 16 mm. No ascites is seen. No free air. Bones/joints: Mild degenerative changes in the spine. No acute fracture or subluxation is seen. Soft tissues: Unremarkable. Vasculature: The abdominal aorta is mildly calcified but nondilated. Lymph nodes: Borderline mild inguinal lymphadenopathy with a 2 mm left side on the right. IMPRESSION: 1. The kidneys are unremarkable. No hydronephrosis or ureterolithiasis is seen. 2. The appendix is normal. Bowel loops are nondilated. No acute inflammatory changes are seen involving the bowel. 3. Splenomegaly. The portal vein is upper normal in diameter. No overt signs of cirrhosis or ascites. Electronically signed by: Elkin Ram MD 04/03/23 02:29 AM Duplex Scan Lower Extremity Artery 04/03/23 15:32 US arterial duplex right lower extremity CLINICAL HISTORY: right foot wound COMPARISON STUDY: Right foot CT 04/03/2023. FINDINGS: Calcified plaque throughout the majority the right lower extremity arterial system. There are monophasic waveforms seen throughout the right lower extremity arterial system. Mildly elevated peak systolic velocities throughout the right lower extremity arterial system most pronounced within the common femoral proximal superficial femoral arteries measuring up to 240 cm/s. There is subcutaneous trace edema within the right lower leg. No areas of arterial occlusion. The distal calf arteries were not visualized due to the patient's skin abnormalities. IMPRESSION: 1. Monophasic and diffusely elevated waveforms seen throughout the right lower extremity arterial system. This suggests diffuse atherosclerotic disease. 2. No high-grade stenosis or occlusion identified within the right lower extremity. ACT 112: Negative or not required by law. Electronically signed by: Dhiraj Bui M.D. 04/03/2023 8:56 PM PG Care Time/CCT Total # of Minutes Spent Total Time Spent with Patient: Total time spent is greater than 50% in coordination of care (as documented) at patient's floor/unit and/or counseling patient: Coding Level of Care Code 33032 SUB INP/OBS CARE 3/50MIN Diagnoses Diabetic ulcer of right heel E11.621; L97.419 Bacteremia R78.81 Osteomyelitis of right foot M86.9 Anemia D64.9 CKD (chronic kidney disease) N18.9 Hyponatremia E87.1 HLD (hyperlipidemia) E78.5 Hypertension I10 Hypertension type: essential hypertension Diabetes E11.621; L97.509; Z79.4 Diabetes mellitus complication detail: with foot ulcer Diabetes mellitus complication status: with skin complications Diabetes mellitus skilled nursing insulin use: with skilled nursing use Diabetes mellitus type: type 2 WHIT (obstructive sleep apnea) G47.33 PAD (peripheral artery disease) I73.9 (8) Hypertension Hypertension type: essential hypertension Qualified Code(s): I10 - Essential (primary) hypertension (9) Diabetes Diabetes mellitus complication detail: with foot ulcer Diabetes mellitus complication status: with skin complications Diabetes mellitus intermission coordinator insulin use: with intermission coordinator use Diabetes mellitus type: type 2 Qualified Code(s): E11.621 - Type 2 diabetes mellitus with foot ulcer; L97.509 - Non- pressure chronic ulcer of other part of unspecified foot with unspecified severity; Z79.4 - [facility] (current) use of insulin
[2023-04-03] MEDS: FUROSEMIDE 10 MG/ML 10 ML VIAL IV SCH ×2 (13:24→22:47)
--- NOTE | 2023-04-03 14:20 | Pharmacy Report ---
Pharmacy PK ABX Note - Date of Service April 03, 2023 - Assessment and Plan Assessment 57 year old M receiving Vancomycin and Meropenem for treatment of osteomyelitis of the right foot secondary to diabetic foot infection. * Day #1 of antimicrobial therapy. * PMHx significant for T2DM, CKD, previous left foot infections requiring surgery (no amputation). * HPI: worsening lower extremity swelling making it difficult to ambulate and multiple recent falls. * Labs/Vitals: 24 hour Tmax 37.9oC. Leukocytosis of 17.6k upon presentation, down to 14.6k today. SCr 1.63 mg/dL last evening, now 1.38 mg/dL today. Lactate negative. Procalcitonin is 2.15. ESR/CRP both elevated. * Micro: Blood and R foot cultures are pending. * Imaging: R foot CT shows: "1. There is subcutaneous emphysema extending over an approximately 4.5 cm transverse by 2.5 cm deep area along the surface of the calcaneus. There is erosion and fragmentation of the adjacent calcaneus with gas extending into the bone consistent with osteomyelitis. 2. There is an oval, approximately 2.5 x 1 cm gas and fluid collection is soft tissue superior to the Achilles tendon insertion upon the calcaneus consistent with abscess. There are calcific fragments as well as 3 tubular 0.4 x 1.6 cm man- made structures within this area. Correlate with surgical history." * Recommendations: Continue with Vancomycin and Meropenem at this time. History of Enterobacter in L foot in 2019 that was resistant to both Cefepime and Zosyn. Plan Vancomycin * Loading dose: 2750 mg IV x 1 * Maintenance dose: 750 mg IV every 12 hours * Regimen is predicted to achieve target AUC/CLAUDIA of 400-600 mg/L.hr * Random level ordered for: 04/05/23 Pharmacy will continue to follow and will adjust dose/frequency as necessary. Thank you. Pharmacy has transitioned to AUC monitoring for vancomycin. AUC/CLAUDIA is the preferred PK/PD target and is associated with decreased risk of nephrotoxicity compared to traditional trough targets.
--- NOTE | 2023-04-03 14:33 | XCELERA ---
[id number] \\[id number]
--- NOTE | 2023-04-03 14:34 | Pharmacy Report ---
Pharmacy Glycemic Short Note 2 - Date of Service April 03, 2023 - Glycemic Short BSG Results (Last 24 hours): 04/02/23 04/03/23 04/03/23 23:27 05:33 07:15 Glucose 152 H POC Glucose 236 H 220 H 04/03/23 04/03/23 11:00 11:36 Glucose 131 H POC Glucose 149 H OUTPATIENT ANTIDIABETIC REGIMEN: * Lantus 50 units SC HS * Humulin-R U-500: 85 units SC breakfast, 75 units SC lunch, 60 units SC dinner * HbA1c: 9.8% (04/02/23) ASSESSMENT: * 57 yo M admitted on 04/03/23 secondary to osteomyelitis of right foot secondary to a diabetic foot infection. Pharmacy has been consulted to assist with inpatient glycemic management. Patient is a poorly controlled Type 2 diabetic as an outpatient. Please refer to outpatient regimen and most recent HbA1c above. History of non-compliance with this patient. * Ordered and tolerating diet. Stressors currently include infection requiring Vancomycin and Meropenem. Still awaiting surgical eval. * Will utilize previous admission data to design initial inpatient insulin regimen. * 50 units basal ordered BID by overnight pharmacist. Will scale PM dose in case patient is made NPO for surgery tomorrow. * Novolog ACHS per previous admission data. PLAN FOR INPATIENT GLYCEMIC CONTROL: * Hold outpatient U-500 for now * Basal insulin * Lantus 50 units SC x 1 this AM * Lantus 30-40 units SC this PM * Bolus insulin * NovoLog per scale ACHS or Q6hrs while NPO * Goal Range: Low 110 mg/dL - High 140 mg/dL * Correction Factor: 10 mg/dL/unit * Nutritional / Prandial insulin per carb ratio of 1 unit per 3 grams CHO consumed
[2023-04-03 14:45] LABS: Creatinine Urine Random 44.6 mg/dl
[2023-04-03] MEDS: GABAPENTIN 300 MG CAP PO SCH ×2 (16:00→22:47)
[2023-04-03] MEDS: SENNA 8.6 MG TAB PO SCH (16:00)
[2023-04-03] MEDS: POLYETHYLENE (MIRALAX) 17 GM PACK PO SCH (16:00)
--- NOTE | 2023-04-03 20:57 | Ultrasound Report ---
US arterial duplex right lower extremity CLINICAL HISTORY: right foot wound COMPARISON STUDY: Right foot CT 04/03/2023. FINDINGS: Calcified plaque throughout the majority the right lower extremity arterial system. There a re monophasic waveforms seen throughout the right lower extremity arterial system. Mildly elevated pe ak systolic velocities throughout the right lower extremity arterial system most pronounced within th e common femoral proximal superficial femoral arteries measuring up to 240 cm/s. There is subcutaneou s trace edema within the right lower leg. No areas of arterial occlusion. The distal calf arteries we re not visualized due to the patient's skin abnormalities. IMPRESSION: 1. Monophasic and diffusely elevated waveforms seen throughout the right lower extremity arterial sys tem. This suggests diffuse atherosclerotic disease. 2. No high-grade stenosis or occlusion identified within the right lower extremity. ACT 112: Negative or not required by law. Electronically signed by: Dhiraj Bui M.D. 04/03/2023 8:56 PM
[2023-04-03] MEDS: VANCOMYCIN HCL 750 MG in SODIUM CHLORIDE 0.9% 250 ML IV SCH (21:18)
[2023-04-03] MEDS: LANTUS PER UNIT CHARGE SC SCH (21:37)
[2023-04-03 21:58] LABS: A calco-baum cmplx NotReported Not Detected (NotDetected); Bact fragilis Not Reported Not Detected (NotDetected); C auris Not Reported Not Detected (NotDetected); Calbicans Not Reported Not Detected (NotDetected); Candida glabrata Not Reported Not Detected (NotDetected); Candida krusei Not Reported Not Detected (NotDetected); Cneoformans/gatti Not Reported Not Detected (NotDetected); Cparapsilosis Not Reported Not Detected (NotDetected); Ctropicalis Not Reported Not Detected (NotDetected); E cloacae compx Not Reported Not Detected (NotDetected); Efaecalis Not Reported Not Detected (NotDetected); Efaecium Not Reported Not Detected (NotDetected); Enterobacterales Not Reported Not Detected (NotDetected); Escherichia coli Not Reported Not Detected (NotDetected); H influenzae Not Reported Not Detected (NotDetected); K aerogenes Not Reported Not Detected (NotDetected); Koxytoca Not Reported Not Detected (NotDetected); Kpneumoniae grp Not Reported Not Detected (NotDetected); Lmonocyt Not Reported Not Detected (NotDetected); N meningitidis Not Reported Not Detected (NotDetected); P aeruginosa Not Reported Not Detected (NotDetected); Proteus spp Not Reported Not Detected (NotDetected); Salmonella spp Not Reported Not Detected (NotDetected); Smarcescens Not Reported Not Detected (NotDetected); Staph lugdunensis Not Reported Not Detected (NotDetected); Staph spp. Not Reported Not Detected (NotDetected); Staphaureus Not Reported Not Detected (NotDetected); Staphepi Not Reported Not Detected (NotDetected); Stenmaltophilia Not Reported Not Detected (NotDetected); Strep agal(GrpB) Not Reported Not Detected (NotDetected); Strep pneum Not Reported Not Detected (NotDetected); Strep pyog (GrpA) Not Reported Not Detected (NotDetected); Strep spp Not Reported DETECTED (NotDetected)
[2023-04-03 22:15] LABS: Streptococcus spp DETECTED (NotDetected)
[2023-04-03] MEDS: METOPROLOL SUCC 50MG EXT REL TAB PO SCH (22:45)
[2023-04-03] MEDS: ATORVASTATIN 40 MG TAB PO SCH (22:45)
[2023-04-03] MEDS: MELATONIN 3 MG TAB PO SCH (22:46)
[2023-04-03] MEDS: PANTOprazole 40 MG TAB PO SCH (22:47)
--- NOTE | 2023-04-03 23:55 | Orthopedic Consultation ---
Date of Consultation April 03, 2023 Assessment & Plan (1) Osteomyelitis of right foot: Patient seen, evaluated, and treated. Patient requires I&D and resection of calcaneus. Will place as add on to follow 04/04/23. Patient placed NPO (2) Diabetic ulcer of right heel: (3) Lymphedema: History of Present Illness Attending Physician: Tej Bliss MD History of Present Illness Patient is a 57-year-old male seen at bedside for right diabetic foot wound. Patient is non arousable due to time of night. Documentation was obtained from previous charting. Patient has a past medical history of congestive heart failure, stage IV chronic renal disease, history of gastroparesis, history of osteomyelitis of the left foot in the past, hypertension, hyperlipidemia, diabetes mellitus, history of prior noncompliance with medical regimen who presented to the [facility] emergency department earlier today with complaints of worsening lower extremity swelling and difficulty ambulating.Patient has history of noncompliance and has not followed up with his recent appointments but [facility] Upon initial arrival to the ED patient was found to be having poor hygiene with dried stool debris found on the clothes which was cleaned in the ED. Patient was also found to have large right heel diabetic foot ulcer with a black eschar noted along with bilateral lower extremity swelling. Patient was also found to have elevated white count of 17.5 with neutrophil predominance along with a hemoglobin of 7.4. Patient's ESR and C-reactive protein were elevated along with a low iron store indicators and low serum sodium level of 125. Patient had blood cultures drawn and patient was treated with empiric antibiotic coverage with meropenem and daptomycin for coverage for resistant Enterobacter and with prior history of MRSA. Allergies Allergy/AdvReac Type Severity Reaction Status Date / Time hydralazine Allergy Mild Rash Verified 07/11/22 13:18 Calcium Channel Blocking Allergy Rash, Verified 07/11/22 13:18 Agent Dilt swelling semaglutide [From Ozempic] Allergy Abdominal Verified 07/11/22 13:18 Pain amitriptyline AdvReac Mild Muscle Verified 07/11/22 13:18 twitching Home Medications Medication Instructions Recorded Confirmed Type atorvastatin 80 mg tablet 80 mg PO QPM 08/02/18 07/11/22 History magnesium oxide 400 mg PO HS 08/02/18 07/11/22 History metoprolol succinate 50 mg 150 mg PO QPM 08/02/18 07/11/22 History tablet,extended release 24 hr omeprazole 20 mg capsule,delayed 20 mg PO QPM #0 caps 08/14/19 07/11/22 Rx release cholecalciferol (vitamin D3) 25 2,000 units PO QPM 11/19/19 07/11/22 History mcg (1,000 unit) chewable tablet (Vitamin D3) gabapentin 600 mg tablet 600 mg PO TID 12/06/19 07/11/22 History polyethylene glycol 3350 17 17 gm PO BID PRN constipation #510 12/23/19 07/11/22 Rx gram/dose oral powder grams fluticasone propionate 50 1 spray intranasal BID 05/05/20 07/11/22 History mcg/actuation nasal spray,suspension (Flonase Allergy Relief) doxazosin 4 mg tablet 4 mg PO HS 10/01/20 07/11/22 History melatonin 10 mg capsule 10 mg PO HS 05/17/21 07/11/22 History magnesium hydroxide 400 mg/5 mL 15 ml PO DAILY PRN Constipation 07/28/21 07/11/22 History oral suspension (Milk of Magnesia) acetaminophen 500 mg tablet 1,000 mg PO TID PRN Pain 08/08/21 07/11/22 History (Tylenol Extra Strength) ascorbic acid (vitamin C) 500 mg 500 mg PO BID 08/08/21 07/11/22 History tablet cyorqgksvrtg-vxrewocw-znygbz 1 tab PO QAM 08/08/21 07/11/22 History tablet (Multivitamin 50 Plus tablet) cyanocobalamin (vitamin B-12) 1,000 mcg PO HS 08/11/21 07/11/22 History 1,000 mcg tablet hydroxyzine HCl 25 mg tablet 25 mg PO Q6 PRN Itching 08/11/21 07/11/22 History mupirocin 2 % topical ointment 1 applic topical TID PRN flare ups 08/12/21 07/11/22 History aspirin 81 mg capsule 81 mg PO Q12 09/21/21 07/11/22 History metolazone 5 mg tablet 5 mg PO BID #180 tabs 10/28/21 07/11/22 Rx insulin glargine 100 unit/mL (3 50 unit subcut HS 12/20/21 07/11/22 History mL) subcutaneous pen (Lantus Solostar U-100 Insulin) prednisone 5 mg tablet 5 mg PO DAILY 12/20/21 07/11/22 History ferrous sulfate 325 mg (65 mg 325 mg PO Q OTHER DAY 02/04/22 07/11/22 History iron) tablet allopurinol 300 mg tablet 750 mg PO DAILY 04/14/22 07/11/22 History bumetanide 2 mg tablet 4 mg PO BID 04/14/22 07/11/22 History omega 3-rfi-yyu-fish oil 1,000 mg 2 cap PO BID 04/14/22 07/11/22 History (120 mg-180 mg) capsule (Fish Oil) insulin regular hum U-500 conc 500 See Rx Instructions .Route .COMPLEX 06/17/22 07/11/22 History unit/mL subcutaneous soln (Humulin R U-500 (Concentrated) Insulin) Patient History Medical History (Updated 04/04/23 @ 15:09 by Bennett Hagen MD) Chronic back pain Chronic diastolic congestive heart failure Chronic kidney disease Plan for possible dialysis in the future (under surveillance), will be placing fistula in near future preventatively Depression Diabetes IDDM Diastolic CHF Dyslipidemia Encounter for pre-operative examination GERD (gastroesophageal reflux disease) Hypertension Migraine Morbid obesity Osteoarthritis PAD (peripheral artery disease) Sleep apnea CPAP Temporomandibular joint disorder Occasional clicking, no locking Surgical History History of Achilles tendon repair Right Achilles repair (07/16/21): Grade 2 view, MAC#3, ETT 7.5 + PNB at [facility] History of incision and drainage Left foot multiple with skin graft (total of 5) Left foot I&D (10/08/20): LMA#5 at [facility] Left foot I&D, Stimulan beads (02/12/21): MAC at [facility] History of open reduction and internal fixation (ORIF) procedure Left ankle Bimalleolar Fracture (11/2019) History of placement of ear tubes Right ear History of tonsillectomy and adenoidectomy Hx of cataract surgery R/L Hx of colonoscopy [place] teeth extracted Family History Father Diabetes Mother Diabetes Other Coronary heart disease Hypertension No family history of adverse response to anesthesia Denies family history of Crohn's disease Kidney disease Colorectal cancer Ulcerative colitis Social History Smoking Status: Former smoker Tobacco Type: Cigarettes Second Hand Exposure: Yes; Do You Dip or Chew Tobacco: No; Hx Alcohol Use: No Hx Substance Use: No Preferred Language: Cymraes Communication Ability: Effective Humanities Teacher Required: No Beliefs That Will Affect Care: None marital status: Current Living Situation: Alone Current Living Situation Comment: resides with huma current occupational status: employed 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 Feels Safe at Home: Yes Safety Concerns: Feels Safe At This Time Assistive Devices: Cane and Walker Review of Systems Review of Systems: All systems reviewed & are unremarkable except as noted in HPI & below Physical Exam Physical Exam: Patient unkempt and disheveled Head and ENT no thyroid enlargement trachea midline Cardiovascular S1-S2 are normal no S3 Lungs bilateral air entry fair no wheezing Abdomen soft nondistended p no rebound tenderness Extremity shows 2+ bilateral lower extremity edema with right heel ulcer with black eschar noted Neurologically no focal deficits Skin shows right heel ulcer with excoriation no cyanosis Results & Data Vital Signs (Past 12 Hours) Vital Signs Temp Pulse Pulse Resp BP BP Pulse Ox 04/03/23 23:31 04/03/23 23:30 36.6 C 84 18 149/64 H 92 04/03/23 20:05 37 C 72 20 139/61 96 04/03/23 18:15 84 04/03/23 15:50 37.7 C H 82 22 146/67 H 91 04/03/23 15:15 37.6 C H 78 24 152/66 H 93 04/03/23 15:00 37.5 C 80 24 152/66 H 92 04/03/23 14:41 87 22 98/57 L 94 04/03/23 14:10 37.7 C H 92 H 155/78 H 94 04/03/23 14:30 37.5 C 92 H 20 114/57 L 94 04/03/23 13:55 37.9 C H 85 24 144/62 H 94 04/03/23 13:37 37.9 C H 86 24 148/66 H 95 O2 Del Method 04/03/23 23:31 Room Air, CPAP 04/03/23 23:30 Room Air 04/03/23 20:05 Room Air 04/03/23 18:15 04/03/23 15:50 04/03/23 15:15 04/03/23 15:00 04/03/23 14:41 04/03/23 14:10 04/03/23 14:30 04/03/23 13:55 04/03/23 13:37 Diagnostic Findings EXAM: CT Right Lower Extremity Without Intravenous Contrast, Foot CLINICAL HISTORY: Reason for exam: heel ulcer eval for osteo. TECHNIQUE: Axial computed tomography images of the right foot without intravenous contrast. CTDI is 10.38 mGy and DLP is 218.31 mGy-cm. Automated exposure control was utilized for the study. A dose lowering technique was utilized adhering to the principles of ALARA. COMPARISON: No relevant prior studies available. FINDINGS: Bones/joints: There is an oval, approximately 2.5 x 1 cm gas and fluid collection is soft tissue superior to the Achilles tendon insertion upon the calcaneus consistent with abscess. There are calcific fragments as well as 3 tubular 0.4 x 1.6 cm man-made structures within this area. Correlate with surgical history. No acute fracture. No dislocation. Soft tissues: There is subcutaneous emphysema extending over an approximately 4.5 cm transverse by 2.5 cm deep area along the surface of the calcaneus. There is erosion and fragmentation of the calcaneus with gas extending into the bone consistent with osteomyelitis. Severe diffuse subcutaneous edema throughout the foot and ankle. No radiopaque foreign body. IMPRESSION: 1. There is subcutaneous emphysema extending over an approximately 4.5 cm transverse by 2.5 cm deep area along the surface of the calcaneus. There is erosion and fragmentation of the adjacent calcaneus with gas extending into the bone consistent with osteomyelitis. 2. There is an oval, approximately 2.5 x 1 cm gas and fluid collection is soft tissue superior to the Achilles tendon insertion upon the calcaneus consistent with abscess. There are calcific fragments as well as 3 tubular 0.4 x 1.6 cm man-made structures within this area. Correlate with surgical history. Electronically signed by: Elkin Ram MD 04/03/23 02:33 AM Dictated:04/03/23 0233 Transcribed: 04/03/23 0233
[2023-04-04] MEDS: MEROPENEM 500 MG in SYRINGE 0 ML IV SCH ×4 (05:40→22:36)
[2023-04-04 07:22] LABS: Hematocrit (blood only) 22.8 % (42.0-52.0); Hemoglobin 7.2 g/dl (14.0-18.0); Mean Corpuscular Hemoglobin 26.8 pg (25.0-34.0); Mean Corpuscular Hgb Conc 31.6 g/dL (32.0-36.0); Mean Corpuscular Volume 84.8 fL (80.0-100.0); Mean Platelet Volume 10.4 fL (9.4-12.4); Platelet Count 229 K/uL (130-400); RDW Coefficient of Variation 14.8 % (11.5-14.5); RDW Standard Deviation 45.4 fL (36.4-46.3); Red Blood Count 2.69 M/uL (4.70-6.10); White Blood Count 14.17 K/ul (4.8-10.8)
[2023-04-04 07:35] LABS: Calcium 8.3 mg/dl (8.6-10.3); Magnesium 1.7 mg/dl (1.7-2.4); Potassium 4.1 mmol/L (3.5-5.1)
[2023-04-04 07:40] LABS: BUN Creatinine Ratio 33.3 (10-20); Creatinine Clr Calc Pharmacy 87.2 ml/min; Est GFR (African American) 80.3 ml/min; Est GFR (Non-African American) 69.3 ml/min
[2023-04-04] MEDS: VANCOMYCIN HCL 750 MG in SODIUM CHLORIDE 0.9% 250 ML IV SCH ×2 (08:11→22:41)
[2023-04-04] MEDS: POLYETHYLENE (MIRALAX) 17 GM PACK PO SCH (08:11)
[2023-04-04] MEDS: SERTRALINE HCL 50 MG TABLET PO SCH (08:12)
[2023-04-04] MEDS: INSULIN ASPART PER UNIT CHARGE SC SCH ×4 (08:12→22:53)
[2023-04-04] MEDS: ASPIRIN 81 MG ECTAB PO SCH (08:13)
[2023-04-04] MEDS: allopurinoL 300 MG TAB PO SCH (08:13)
[2023-04-04] MEDS: predniSONE 5 MG TAB PO SCH (08:13)
[2023-04-04] MEDS: SENNA 8.6 MG TAB PO SCH (08:13)
[2023-04-04] MEDS: GABAPENTIN 300 MG CAP PO SCH ×4 (08:13→22:38)
--- NOTE | 2023-04-04 08:21 | Nephrology Progress Note ---
Date of Service April 04, 2023 Assessment & Plan (1) CKD (chronic kidney disease): Plan: * Kidney function is stable at this time * CKD stage G3b/A2 (moderate impairment). Baseline Cr has been 2.0 w/ EGFR 36 cc/min. Urine sediment has been acellular. UPCR 0.2. Renal US 08/31 revealed 11 cm kidneys, no obstruction/stone/mass. Kidney function has fluctuated w/ volume status. Renal impairment is due to DKD, diastolic heart failure (2) Hyponatremia: Plan: * Mild hyponatremia, likely chronic, asymptomatic. Serum sodium has improved from 125 to 128 mmol/L off thiazide diuretic while on furosemide therapy * Volume status is difficult to assess * Thiazide diuretic may have been contributing to hyponatremia * Continue to hold Metolazone * Patient is diuresing w/ loop diuretic while on a low Na diet * Net -1.3 L overnight * Continue Furosemide 100 mg IV BID * Monitor PRP (3) Anemia: Plan: * Hgb 7.2 this am * Patient likely will not respond to NAIN therapy due to inflammation * Recommend transfusion to maintain Hgb ~ 8.0 (4) Lymphedema: Plan: * Continue Lasix 100 mg IV BID and monitor volume status, UO, kidney function and electrolyte balance * Hold Metolazone due to hyponatremia * Recommend low Na diet (5) Diabetic ulcer of right heel: Plan: * Agree w/ broad spectrum antibiotic therapy * Awaiting surgical intervention Admission and Anticipated Discharge Date Admission Date: April 03, 2023 Subjective Mr. Swartz was evaluated in his hospital room this morning. He denied fever, angina, dyspnea or uremic symptoms. He is NPO for surgical intervention this morning. Review of Systems Constitutional: no fever Eyes: no worsening vision Ear, Nose, Mouth, Throat: no problem reported Respiratory: no cough and no dyspnea Cardiovascular: no chest pain Gastrointestinal: no abdominal pain, no vomiting and no diarrhea/loose stools Genitourinary: no dysuria, no urinary hesitancy, no hematuria or no flank pain Physical Exam Constitutional: + disheveled; no acute distress Eyes: PERRL, conjunctivae normal, anicteric sclerae ENMT: external ear and nose normal, oropharynx normal Neck: trachea midline, no thyromegaly Respiratory: normal respiratory effort, lungs clear to auscultation Cardiovascular: Rate/Rhythm: regular rate and regular rhythm Extremities: + edema (3+ LE lymphedema) Gastrointestinal (Abdomen): normal bowel sounds, soft, nontender, no hepatosplenomegaly Neurologic: Speech / Cognition: normal speech and normal cognition Results & Data Vital Signs (Past 12 Hours) Vital Signs Temp Pulse Resp BP Pulse Ox O2 Del Method 04/04/23 07:30 37.3 C 67 20 127/58 L 94 Room Air 04/04/23 03:57 36.4 C L 77 18 130/57 L 94 Room Air, CPAP 04/03/23 23:31 Room Air, CPAP 04/03/23 23:30 36.6 C 84 18 149/64 H 92 Room Air Laboratory Results Laboratory Tests 04/04/23 04/04/23 07:05 07:05 WBC 14.17 H Hgb 7.2 L Hct 22.8 L Plt Count 229 Sodium 128 L Potassium 4.1 Chloride 96 L Carbon Dioxide 24 BUN 39 H Creatinine 1.17 Glucose 174 H PG Care Time/CCT Total # of Minutes Spent Total Time Spent with Patient: Total time spent is greater than 50% in coordination of care (as documented) at patient's floor/unit and/or counseling patient: Coding Level of Care Code 26205 SUB INP/OBS CARE 3/50MIN Diagnoses CKD (chronic kidney disease) N18.9 Hyponatremia E87.1 Anemia D64.9 Lymphedema I89.0 Diabetic ulcer of right heel E11.621; L97.419
[2023-04-04] MEDS ORDERED: LANTUS PER UNIT CHARGE SC STA (09:27)
--- NOTE | 2023-04-04 09:44 | Hospitalist Progress Note ---
Date of Service April 04, 2023 Assessment & Plan (1) Diabetic ulcer of right heel: Plan: #osteomyelitis right foot #diabetic ulcer right heel -suspect polymicrobial etiology given poorly controlled DM2 (HgbA1C 9.8%) -continue broad spectrum coverage with vancomycin, meropenem -scheduled for debridement 04/04/23, will follow ortho recommendations #bacteremia -1 of 2 initial tubes grew streptococcus, repeat cultures were drawn after empiric coverage was started which were negative -will assess for new focal joint pain -continue vancomycin, meropenem -TTE did not show septic vegetations; if persistent bacteremia, can consider EDEN #diastolic heart failure -echo stable from April 2022, EF 60-65% -furosemide 100mg IV BID -I/Os: approximately negative 2200 mL #anemia -Hgb improved from 6.6 to 7.2 after 1 RBC transfusion -symptomatically feels better after transfusion #diabetes mellitus -HgbA1C 9.8% -discussed importance of glycemic control in wound healing, heart disease, cerebrovascular disease #CKD stage 4 -most recent Cr 1.17, will continue to monitor given his diuresis -appreciate nephrology recommendations #hyponatremia -Na 125 on admission (asymptomatic), likely a dilutional component, will monitor -Na up to 128 on 04/04/23 #HLD -atorvastatin 80 #HTN -most recent BP 139/83 -home dose metoprolol w/ parameters -continue diuresis #WHIT -continue at home CPAP #PAD -Diffuse atherosclerotic disease on arterial Doppler of the right lower extre mity, continue home aspirin and atorvastatin,consider vascular surgery consultation #gout -allopurinol, prednisone #constipation -Miralax, Senna #restless legs -given extra dose of pramipexole 0.25 -continue nightly #depression -sertraline FENGI: NPO in anticipation of debridement #DVT: heparin held in anticipation of debridement Admission and Anticipated Discharge Date Admission Date: April 03, 2023 Supervising Physician Co-Signing Physician Notes I personally examined the patient and verified all lester points of history and exam, discussed case, and agree with decision making with Rosio Rowell MS4 No pain. Main problem is restless legs and feeling hungry. For OR this afternoon. Case discussed with podiatry, input greatly appreciated. Vitals noted, in general he is asleep but easily awoken no distress. HEENT normocephalic atraumatic mucous membranes moist. Breathing unlabored no accessory muscle use good effort. Feet with chronic venous stasis changes large and shallower ulcerations diffusely noted with surrounding erythema nontender but has fairly dense neuropathy Diabetic foot ulcer with abscess and subsequent osteomyelitis, sepsis on admission (tachycardia and leukocytosis)continue meropenem and vancomycin. For OR today. We will need to educate on diabetes control. As it relates to his one positive blood culture for strepwhile I suspect it is a contaminant, obviously have to be deference to the fact that in his current context it could be of clinical significance. Await further cultures, echo negative is reassuring, continue current antibiotics for now. Follow closely. Uncontrolled diabeteseducation Otherwise as above Subjective Mr. Swartz is a 57 y/o M with PMHX of diastolic CHF, WHIT, CKD stage IV, gastroparesis, osteomyelitis of the L foot, HTN, HLD, and DM. He presented to the ED the morning of 04/03/23 concerned about increased swelling and heaviness in both lower extremities which made it hard to ambulate. He also had some minor falls with this but did not sustain any head trauma or LOC. In the ED he was noted to have significant edema, erythema on his right heel with a necrotic ulcer (~10cm). His vitals in the ED were: HR 97, BP 121/68, RR 17, T 36.8, and SpO2 97%. Initial labs were: WBC 17.5 with neutrophil predominance, Hgb 7.4, Hct 23.4, iron 18, ESR 63, CRP 15, procalcitonin 2, Cr 1.6, Na 125 (osm 275), phosphorus 1.4, magnesium 1.4, HgbA1C 9.8%. Cultures of the ulcer and blood cultures were obtained and he was started on meropenem and daptomycin. CT abd/pelvis did not reveal acute pathology. CT of his R foot showed osteomyelitis of the calcaneus with erosion, fragments and gas extending to the bone. There was also a ~2cm abscess proximal to the Achilles insertion. EKG showed NSR at 83 bpm with some PACs. Today: Mr. Swartz said he has been experiencing increased leg swelling chronically in both legs. He he likes to play poker with his friends, one of whom brought him to the ED after he couldn't tolerate the leg swelling/weakness any longer. He has had a hard time taking care of himself and struggles to follow up with his nephrology appointments with Dr. Alvarez, especially after he from his around May 2022. He also noted constantly being cold before coming to the ED which he believes is due to anemia. He did not note any subjective fevers prior to admissions. In terms of ambulation, he has been using a cane since ~2019 when he sustained an ankle fracture. He has diabetic neuropathy in both his feet. He currently lives alone and does not regularly check his feet. He has not experienced subjective fevers, light-headedness, or syncope. He regularly uses his home CPAP which he has in the hospital with him. He understands he is scheduled to undergo debridement of his ulcer with orthopedics. He is bothered by his restless leg syndrome. Review of Systems Review of Systems: All systems reviewed & are unremarkable except as noted in HPI & below Musculoskeletal: chronic, stable knee pain/hip pain Physical Exam Physical Exam: Appearance: lying supine in hospital bed with head of the bed raised, in NAD Respiratory: normal respiratory effort, no conversational dyspnea, lungs CTA BL Cardiovascular: RRR, no M/R/G. Extremities: 4+ pitting edema bilaterally up to the thighs, R worse than left Gastrointestinal (Abdomen): normal bowel sounds in all 4 quadrants, +abdominal distention, no tenderness to palpation/rebound/guarding Skin: Both LE demonstrate some weeping. R heel of the foot shows a ~10cm necrotic ul cer with surrounding erythema and edema. The R lower extremity from ankle to mid-prado is relatively warm to the touch. Neurologic: Decreased sensation to both feet bilaterally Results & Data Results & Data Vital Signs (Past 12 Hours) Vital Signs Temp Pulse Resp BP Pulse Ox O2 Del Method 04/04/23 07:30 37.3 C 67 20 127/58 L 94 Room Air 04/04/23 03:57 36.4 C L 77 18 130/57 L 94 Room Air, CPAP 04/03/23 23:31 Room Air, CPAP 04/03/23 23:30 36.6 C 84 18 149/64 H 92 Room Air
[2023-04-04] MEDS: FUROSEMIDE 10 MG/ML 10 ML VIAL IV SCH ×2 (09:52→22:39)
--- NOTE | 2023-04-04 12:59 | Pharmacy Report ---
Pharmacy Glycemic Short Note 2 - Date of Service April 04, 2023 - Glycemic Short BSG Results (Last 24 hours): 04/03/23 04/03/23 04/04/23 16:35 20:13 07:05 Glucose 174 H POC Glucose 112 H 91 04/04/23 04/04/23 07:26 11:05 Glucose POC Glucose 202 H 146 H OUTPATIENT ANTIDIABETIC REGIMEN: * Lantus 50 units SC HS * Humulin-R U-500: 85 units SC breakfast, 75 units SC lunch, 60 units SC dinner * HbA1c: 9.8% (04/02/23) ASSESSMENT: 04/04: * Inder received 144 units of insulin yesterday, 80 basal + 64 bolus. BSGs were: 714-121-002-91 mg/dL. * Given trend down in postprandials, had 2nd shift pharmacist change dinner carb ratio to 4 but RN still administered insulin based on CR of 3. * Loosened Novolog parameters this AM to account for this. Lunchtime did trend down but not as significantly as yesterday. * Fasting BSG improved to 202 mg/dL this AM but still uncontrolled. Patient is NPO today for an I&D of right foot. Will continue with same basal dosing despite NPO status given elevated fasting. * Restarted on home dose of Prednisone 5 mg PO daily. 04/03: * 57 yo M admitted on 04/03/23 secondary to osteomyelitis of right foot secondary to a diabetic foot infection. Pharmacy has been consulted to assist with inpatient glycemic management. Patient is a poorly controlled Type 2 diabetic as an outpatient. Please refer to outpatient regimen and most recent HbA1c above. History of non-compliance with this patient. * Ordered and tolerating diet. Stressors currently include infection requiring Vancomycin and Meropenem. Still awaiting surgical eval. * Will utilize previous admission data to design initial inpatient insulin regimen. * 50 units basal ordered BID by overnight pharmacist. Will scale PM dose in case patient is made NPO for surgery tomorrow. * Novolog ACHS per previous admission data. PLAN FOR INPATIENT GLYCEMIC CONTROL: * Hold outpatient U-500 for now * Basal insulin * Lantus 50 units SC AM * Lantus 30-40 units SC PM * Bolus insulin * NovoLog per scale ACHS or Q6hrs while NPO * Goal Range: Low 110 mg/dL - High 140 mg/dL * Correction Factor: 15 mg/dL/unit * Nutritional / Prandial insulin per carb ratio of 1 unit per 5 grams CHO consumed
--- NOTE | 2023-04-04 15:09 | Anesthesiology Consultation ---
Date of Service April 04, 2023 Assessment & Plan (1) Encounter for pre-operative examination: Chart Review Chart Review: Acceptable Risk for Surgery and Patient NOT seen in Pre Admission Testing Consults Requested none History Surgery Operation Date: 04/04/23 07:00 Proposed Procedures p Right Foot Incision and Drainage - Kenny Card DPM, MS s with Calcanectomy - Kenny Card DPM, MS Height/Weight Height: 5 ft 6 in Weight: 123 kg Allergies Allergy/AdvReac Type Severity Reaction Status Date / Time hydralazine Allergy Mild Rash Verified 07/11/22 13:18 Calcium Channel Blocking Allergy Rash, Verified 07/11/22 13:18 Agent Dilt swelling semaglutide [From Ozempic] Allergy Abdominal Verified 07/11/22 13:18 Pain amitriptyline AdvReac Mild Muscle Verified 07/11/22 13:18 twitching Medications Home Medications Medication Instructions Recorded Confirmed Last Taken atorvastatin 80 mg tablet 80 mg PO QPM 08/02/18 07/11/22 02/06/22 22:30 magnesium oxide 400 mg PO HS 08/02/18 07/11/22 02/06/22 22:30 metoprolol succinate 50 mg 150 mg PO QPM 08/02/18 07/11/22 02/06/22 22:30 tablet,extended release 24 hr omeprazole 20 mg capsule,delayed 20 mg PO QPM #0 caps 08/14/19 07/11/22 02/06/22 22:30 release cholecalciferol (vitamin D3) 25 2,000 units PO QPM 11/19/19 07/11/22 02/06/22 09:00 mcg (1,000 unit) chewable tablet (Vitamin D3) gabapentin 600 mg tablet 600 mg PO TID 12/06/19 07/11/22 02/06/22 22:30 polyethylene glycol 3350 17 17 gm PO BID PRN constipation #510 12/23/19 07/11/22 08/07/21 gram/dose oral powder grams fluticasone propionate 50 1 spray intranasal BID 05/05/20 07/11/22 02/06/22 22:30 mcg/actuation nasal spray,suspension (Flonase Allergy Relief) doxazosin 4 mg tablet 4 mg PO HS 10/01/20 07/11/22 02/06/22 22:30 melatonin 10 mg capsule 10 mg PO HS 05/17/21 07/11/22 02/06/22 22:30 magnesium hydroxide 400 mg/5 mL 15 ml PO DAILY PRN Constipation 07/28/21 07/11/22 08/01/21 08:00 oral suspension (Milk of Magnesia) acetaminophen 500 mg tablet 1,000 mg PO TID PRN Pain 08/08/21 07/11/22 02/06/22 22:30 (Tylenol Extra Strength) ascorbic acid (vitamin C) 500 mg 500 mg PO BID 08/08/21 07/11/22 02/06/22 21:30 tablet kozozryoxpnm-nxgijsem-vetcca 1 tab PO QAM 08/08/21 07/11/22 02/06/22 09:00 tablet (Multivitamin 50 Plus tablet) cyanocobalamin (vitamin B-12) 1,000 mcg PO HS 08/11/21 07/11/22 02/06/22 22:30 1,000 mcg tablet hydroxyzine HCl 25 mg tablet 25 mg PO Q6 PRN Itching 08/11/21 07/11/22 02/06/22 22:30 mupirocin 2 % topical ointment 1 applic topical TID PRN flare ups 08/12/21 07/11/22 Unknown aspirin 81 mg capsule 81 mg PO Q12 09/21/21 07/11/22 02/06/22 09:00 metolazone 5 mg tablet 5 mg PO BID #180 tabs 10/28/21 07/11/22 02/06/22 22:30 insulin glargine 100 unit/mL (3 50 unit subcut HS 12/20/21 07/11/22 05/09/22 mL) subcutaneous pen (Lantus Solostar U-100 Insulin) prednisone 5 mg tablet 5 mg PO DAILY 12/20/21 07/11/22 02/06/22 09:00 ferrous sulfate 325 mg (65 mg 325 mg PO Q OTHER DAY 02/04/22 07/11/22 05/08/22 iron) tablet allopurinol 300 mg tablet 750 mg PO DAILY 04/14/22 07/11/22 Unknown bumetanide 2 mg tablet 4 mg PO BID 04/14/22 07/11/22 Unknown omega 9-lhc-mod-fish oil 1,000 mg 2 cap PO BID 04/14/22 07/11/22 Unknown (120 mg-180 mg) capsule (Fish Oil) insulin regular hum U-500 conc 500 See Rx Instructions .Route .COMPLEX 06/17/22 07/11/22 Unknown unit/mL subcutaneous soln (Humulin R U-500 (Concentrated) Insulin) Active Medications Generic Name Dose Route Start Last Admin Trade Name Freq PRN Reason Stop Dose Admin Acetaminophen 650 mg 04/03/23 03:49 04/03/23 14:03 Acetaminophen 325 Mg Tab PO 05/03/23 03:48 650 mg Q4H PRN Administration Pain or Fever Allopurinol 300 mg 04/04/23 09:00 04/04/23 08:13 Allopurinol 300 Mg Tab PO 05/04/23 08:59 300 mg QAM LEILA Administration Aspirin 81 mg 04/04/23 09:00 04/04/23 08:13 Aspirin 81 Mg Ectab PO 05/04/23 08:59 81 mg QAM ELLIA Administration Atorvastatin Calcium 80 mg 04/03/23 21:00 04/03/23 22:45 Atorvastatin 40 Mg Tab PO 05/03/23 20:59 80 mg QPM LELIA Administration Furosemide 100 mg 04/03/23 12:00 04/04/23 09:52 Furosemide 10 Mg/Ml 10 Ml Vial IV 05/03/23 11:59 100 mg BID LELIA Administration Gabapentin 300 mg 04/03/23 14:25 04/04/23 14:29 Gabapentin 300 Mg Cap PO 05/03/23 14:24 Not Given TID LELIA Heparin Sodium (Porcine) 5,000 units 04/03/23 09:00 04/03/23 22:45 Heparin Sod 5,000 Unit/0.5 Ml Vial SQ 05/03/23 08:59 5,000 units Q12 LELIA Administration Meropenem 500 mg/ Syringe 10 mls @ 2 mls/min 04/03/23 11:00 04/04/23 11:29 IV 05/15/23 10:59 2 mls/min Q6H LELIA Administration Protocol Vancomycin HCl 750 mg/ Sodium 265 mls @ 200 mls/hr 04/03/23 20:00 04/04/23 09:52 Chloride IV 05/15/23 19:59 Infused Q12H LELIA Infusion Protocol Insulin Aspart 0 units 04/03/23 11:30 04/04/23 11:30 Insulin Aspart Per Unit Charge SC 05/03/23 11:29 Not Given ACHS LELIA Protocol Insulin Glargine 0 units 04/03/23 21:00 04/03/23 21:37 Lantus Per Unit Charge SC 05/03/23 08:59 1,000 units HS LELIA Administration Protocol Melatonin 9 mg 04/03/23 21:00 04/03/23 22:46 Melatonin 3 Mg Tab PO 05/03/23 20:59 9 mg HS LELIA Administration Metoprolol Succinate 150 mg 04/03/23 21:00 04/03/23 22:45 Metoprolol Succ 50mg Ext Rel Tab PO 05/03/23 20:59 150 mg QPM LELIA Administration Pantoprazole Sodium 40 mg 04/03/23 21:00 04/03/23 22:47 Pantoprazole 40 Mg Tab PO 05/03/23 20:59 40 mg QPM LELIA Administration Polyethylene Glycol 17 gm 04/03/23 14:30 04/04/23 08:11 Polyethylene (Miralax) 17 Gm Pack PO 05/03/23 14:29 17 gm DAILY LELIA Administration Prednisone 5 mg 04/04/23 09:00 04/04/23 08:13 Prednisone 5 Mg Tab PO 05/04/23 08:59 5 mg QAM LELIA Administration Sennosides 17.2 mg 04/03/23 14:30 04/04/23 08:13 Senna 8.6 Mg Tab PO 05/03/23 14:29 17.2 mg QAM LELIA Administration Sertraline HCl 150 mg 04/04/23 09:00 04/04/23 08:12 Sertraline Hcl 50 Mg Tablet PO 05/04/23 08:59 150 mg QAM LELIA Administration Past Medical History Medical History (Updated 04/04/23 @ 15:09 by Bennett Hagen MD) Chronic back pain Chronic diastolic congestive heart failure Chronic kidney disease Plan for possible dialysis in the future (under surveillance), will be placing fistula in near future preventatively Depression Diabetes IDDM Diastolic CHF Dyslipidemia Encounter for pre-operative examination GERD (gastroesophageal reflux disease) Hypertension Migraine Morbid obesity Osteoarthritis PAD (peripheral artery disease) Sleep apnea CPAP Temporomandibular joint disorder Occasional clicking, no locking Past Family History Family History Father Diabetes Mother Diabetes Other Coronary heart disease Hypertension No family history of adverse response to anesthesia Denies family history of Crohn's disease Kidney disease Colorectal cancer Ulcerative colitis Past Surgical History Surgical History History of Achilles tendon repair Right Achilles repair (07/16/21): Grade 2 view, MAC#3, ETT 7.5 + PNB at [facility] History of incision and drainage Left foot multiple with skin graft (total of 5) Left foot I&D (10/08/20): LMA#5 at [facility] Left foot I&D, Stimulan beads (02/12/21): MAC at [facility] History of open reduction and internal fixation (ORIF) procedure Left ankle Bimalleolar Fracture (11/2019) History of placement of ear tubes Right ear History of tonsillectomy and adenoidectomy Hx of cataract surgery R/L Hx of colonoscopy [place] teeth extracted Social History Smoking Status: Former smoker tobacco type: cigarettes Do You Dip or Chew Tobacco: No Hx Alcohol Use: No Alcohol type: beer alcohol intake frequency: holidays/special occasions only Hx Substance Use: No substance use type: does not use Physical Exam Vital Signs Last Vital Signs Temp 37.1 C 04/04/23 11:07 Pulse 67 04/04/23 11:07 Resp 20 04/04/23 11:07 BP 127/58 L 04/04/23 11:07 Pulse Ox 98 04/04/23 11:07 O2 Del Method Room Air 04/04/23 11:07 Testing Laboratory Results 04/04/23 07:05 04/04/23 07:05 PT 12.5 Seconds (9.0-12.0) H 04/02/23 23:27 INR 1.2 (0.9-1.1) H 04/02/23 23:27 Hemoglobin A1c 9.8 % (4.5-5.6) H 04/02/23 23:27 Urine Color Dark Yellow 04/03/23 Unknown Urine Appearance Clear (Clear) 04/03/23 Unknown Urine pH 5.0 (4.5-7.5) 04/03/23 Unknown Ur Specific [place] 1.018 (1.000-1.030) 04/03/23 Unknown Urine Protein 1+ (Negative) H 04/03/23 Unknown Urine Glucose (UA) Negative (Negative) 04/03/23 Unknown Urine Ketones Trace (Negative) H 04/03/23 Unknown Urine Nitrite Negative (Negative) 04/03/23 Unknown Ur Leukocyte Esterase Negative (Negative) 04/03/23 Unknown Urine WBC (Auto) 1-5 /hpf (0-5) 04/03/23 Unknown Urine RBC (Auto) 0-4 /hpf (0-4) 04/03/23 Unknown U Hyaline Cast (Auto) 1-5 /lpf (0-5) 04/03/23 Unknown U Epithel Cells (Auto) 5-10 /lpf (0-5) H 04/03/23 Unknown Urine Bacteria (Auto) Negative (Negative) 04/03/23 Unknown Blood Type A Positive 04/03/23 02:35 Antibody Screen NEGATIVE 04/03/23 02:35 04/03/23 Unknown Gram Stain - Final Foot,Right Wound Culture - Preliminary Pin-point growth present, reincubating. 04/03/23 02:30 Aerobic Blood Culture - Preliminary Blood No growth in Aerobic bottle after 24 hours. Anaerobic Blood Culture - Final 04/03/23 02:25 Aerobic Blood Culture - Preliminary Blood Alpha strep not S.pne/enteroco Anaerobic Blood Culture - Preliminary No growth in Anaerobic bottle after 24 hours. 04/04/23 04/04/23 11:05 07:26 POC Glucose 146 H 202 H Electrocardiogram Date: 04/03/23 DICTATED BY:Malik Paulino MD Test Reason : Blood Pressure : / mmHG Vent. Rate : 083 BPM Atrial Rate : 083 BPM P-R Int : 176 ms QRS Dur : 086 ms QT Int : 388 ms P-R-T Axes : 100 -44 040 degrees QTc Int : 455 ms Poor data quality, interpretation may be adversely affected Sinus rhythm with Premature atrial complexes Left axis deviation Low voltage QRS Cannot rule out Anterior infarct (cited on or before 03-APR-2023) Abnormal ECG When compared with ECG of 10-MAY-2022 18:37, Premature atrial complexes are now Present Confirmed by Malik Paulino ([id number]) on 04/03/2023 11:54:26 AM Chest X-Ray Date: 04/02/23 XR chest 1V portable CLINICAL HISTORY: Chest pain, nonspecific COMPARISON STUDY: Chest radiograph May 10, 2022. FINDINGS: There is no pneumothorax or pleural effusion. Cardiomegaly is unchanged. There is pulmonary vascular congestion. No consolidation is identified to suggest pneumonia. IMPRESSION: Cardiomegaly with pulmonary vascular congestion. Echocardiogram Date: 04/03/23 LV systolic function is normal No RWMA Borderline LVH EF 60-65% Mild TR No change when compared to 05/11/22
[2023-04-04] MEDS ORDERED: rOPINIRole HCL 0.25 MG TABLET PO STA (16:06)
[2023-04-04] MEDS ORDERED: SODIUM CHLORIDE 0.9% 250 ML IV PRN (16:51)
--- NOTE | 2023-04-04 17:37 | Billing Data ---
Date of Service April 04, 2023 Coding Level of Care Code 02446 SUB INP/OBS CARE
[2023-04-04] MEDS ORDERED: PROPOFOL IV EMULSION 10 MG/ML 20 ML VIAL IV ONE (17:45)
[2023-04-04] MEDS: LACTATED RINGER'S 1,000 ML IV SCH (17:45)
[2023-04-04] MEDS ORDERED: LIDOCAINE 2% 2 ML VIAL/AMP(20MG/ML) INFIL ONE (17:45)
[2023-04-04] MEDS ORDERED: ONDANSETRON INJ 2 MG/ML 2 ML VIAL ONE (17:47)
[2023-04-04] MEDS ORDERED: ROCURONIUM BROMIDE 10 MG/ML 5 ML VIAL IV ONE (17:47)
[2023-04-04] MEDS ORDERED: MIDAZOLAM HCL 1 MG/ML 2ML VIAL ONE (17:47)
[2023-04-04] MEDS ORDERED: fentaNYL citrate PF 100 MCG/2 ML VIAL ONE (17:47)
--- NOTE | 2023-04-04 18:11 | History & Physical Bridge Note ---
Date of Service April 04, 2023 History & Physical Bridge Note I have examined the patient, reviewed the History & Physical and in the interval since the performance of the History & Physical I have noted the following changes of clinical significance: no changes noted
[2023-04-04] MEDS ORDERED: fentaNYL citrate PF 100 MCG/2 ML VIAL IV PRN (18:34)
[2023-04-04] MEDS ORDERED: ATROPINE SULFATE 0.1 MG/ML 10ML SYR IV PRN (18:34)
[2023-04-04] MEDS ORDERED: ePHEDrine sulfate 50 MG/ML AMP IV PRN (18:34)
[2023-04-04] MEDS ORDERED: ONDANSETRON INJ 2 MG/ML 2 ML VIAL IV PRN (18:34)
[2023-04-04] MEDS ORDERED: DEXAMETHASONE SOD INJ 4 MG/ML VIAL ONE (18:54)
[2023-04-04] MEDS ORDERED: SUGAMMADEX SODIUM 200 MG/2 ML VIAL IV ONE (19:10)
[2023-04-04] MEDS ORDERED: GELATIN SPONGE SZ 100 ONE (19:50)
[2023-04-04] MEDS ORDERED: THROMBIN FOR SOLN 20000 UNIT KIT ONE (19:50)
--- NOTE | 2023-04-04 20:22 | Post Operative Brief Note ---
Immediate Post Op Note v1 Date of Surgery April 04, 2023 Pre & Post Diagnosis Operation Date: 04/04/23 07:00 Pre-Op Diagnosis: Right Lower Extrememty Osteomylitis Post-Op Diagnosis: Right Lower Extrememty Osteomylitis I identified the patient and participated in the time-out.: Yes Procedure Operation Date: 04/04/23 07:00 Actual Procedures p Right Foot Incision, Drainage and Debridement, Right Foot Calcaneotomy(Not Applicable) - Kenny Card DPM, MS Surgeon Kenny Card DPM, MS Refrigeration Mechanic Helper none Estimated Blood Loss 300 Findings Consistent with Post-Op Diagnosis necrotic bone and soft tissue right foot
--- NOTE | 2023-04-04 21:09 | Anesthesiology Progress Note ---
Date of Service April 04, 2023 Anesthesia Post Procedure Vital Signs Vital Signs: Temp Pulse Pulse Pulse Resp BP Pulse Ox 04/04/23 20:50 72 16 142/77 H 100 04/04/23 20:40 73 16 167/65 H 100 04/04/23 20:30 36.2 C L 81 16 156/71 H 100 04/04/23 17:00 36.8 C 66 16 133/58 L 94 04/04/23 15:38 36.8 C 67 20 139/83 90 04/04/23 15:00 63 04/04/23 08:09 73 04/04/23 08:09 04/04/23 11:07 37.1 C 67 20 127/58 L 98 04/04/23 07:30 37.3 C 67 20 127/58 L 94 04/04/23 03:57 36.4 C L 77 18 130/57 L 94 04/03/23 23:31 04/03/23 23:30 36.6 C 84 18 149/64 H 92 O2 Del Method O2 Flow Rate 04/04/23 20:50 Nasal Cannula 4 04/04/23 20:40 Nasal Cannula 4 04/04/23 20:30 Oxymask 6 04/04/23 17:00 Room Air, CPAP 04/04/23 15:38 CPAP 04/04/23 15:00 04/04/23 08:09 04/04/23 08:09 Room Air 04/04/23 11:07 Room Air 04/04/23 07:30 Room Air 04/04/23 03:57 Room Air, CPAP 04/03/23 23:31 Room Air, CPAP 04/03/23 23:30 Room Air Pain Intensity Bilateral Knee: Pain Intensity: 7 Transfer of Care Handoff Completed per policy Notes Mental Status: alert / awake / arousable and participated in evaluation Patient Amnestic to Procedure: Yes Nausea / Vomiting: adequately controlled Pain: adequately controlled Airway Patency, RR, SpO2: stable & adequate BP & HR: stable & adequate Hydration State: stable & adequate Anesthetic Complications: no major complications apparent and Pt Satisfied with anesthetic care Notes: 1 unit of pRBC transfusing as patient anemic and had estimated 300ml blood loss during procedure.
--- NOTE | 2023-04-04 21:35 | Operative Report ---
Post Operative Report Pre & Post Diagnosis Operation Date: 04/04/23 07:00 Pre-Op Diagnosis: Right Lower Extrememty Osteomylitis Post-Op Diagnosis: Right Lower Extrememty Osteomylitis I identified the patient and participated in the time-out.: Yes Procedure Operation Date: 04/04/23 07:00 Actual Procedures p Right Foot Incision, Drainage and Debridement, Right Foot Calcaneotomy(Not Applicable) - Kneny Card DPM, MS Surgeon Kenny Card DPM, MS Coordinate Measuring Machine Programmer none Estimated Blood Loss 300 Findings Consistent with Post-Op Diagnosis necrotic right heel with advanced osteomyelitis of right calcaneus Specimens 1.) Deep wound culture 2.) Right calcaneus - Micro Description of Procedure History of present illness: Patient is a type II diabetic, 57 year old male who presents with wet gangrene of right heel. CT taken yesterday shows osteomyelitis of calcaneus, gas, and abscess over achilles tendon. Patient is seen today for Right calcaneus partial ostectomy, incision and drainage, and excision of non viable tissue. I have reviewed the procedure and post operative recovery with Patient in detail. All q uestions answered. All potential risks, benefits, complications, alternatives, rehab, potential for incomplete relief of symptoms, need for further surgery, DVT, PE, , persistent pain, swelling, scarring, weakness, neurovascular, wound complications and potential for amputations were discussed with patient. Unwanted outcomes such as, but not limited to were reviewed including under correction, overcorrection, return of deformity, infection. All questions were answered. Patient has decided to proceed with procedure as indicated. Preoperative diagnosis: 1.) Right foot and ankle wet gangrene 2.) Right calcaneus Osteomyelitis 3.) Right foot gas gangrene Postoperative diagnosis: Same Name of operation: 1.) Incision and drainage right foot and ankle 2.) Right partial excision calcaneus 3.) Wound debridement right foot and ankle 4.) Delayed primary closure right foot Surgeon: Dr. Card Coordinate Measuring Machine Programmer: None Anesthesia: General Estimated blood loss: Minimal Procedure in detail: Under mild sedation the patient was brought in the operating room placed on the operating table in supine position. Patient was then converted to prone position. A Pneumatic calf tourniquet was then placed about the patient's right calf. Following sedation Patient was placed in the prone position. The foot and ankle was then prepped, scrubbed, and draped, in the usual aseptic manner. An Esmarch bandage utilized examining the patient's right foot and ankle and the pneumatic calf tourniquet was inflated. Attention was directed to the plantar right heel where a malodorous, black, boggy eschar measuring 9 x 9 cm was located. Utilizing a sharp, sterile, 15 blade the necrotic tissue was excised and placed on the back table. Necrotic calcaneus was exposed. Utilizing an oscillating bone saw partial calcanectomy was completed down to healthy bleeding bone. The bone was removed and placed on the back table. A portion of bone was sent to Pathology for clear margins and a portion was sent to microbiology for culture and sensitives. Deep cultures of the wound were then taken. At this time the incision was elongated to the a proximal communicating abscess adjacent to the Achilles tendon. Further debridement of non-viable soft tissue was completed down to healthy bleeding tissue. Previous hardware including multiple suture anchors with fiberwire and fibertape were noted and removed whenever possible. Theses were retained hardware from ankle stabilization procedures and not all sutures could be removed. There is concern that residual fiberwire could prevent source control. 1 Liter of lactate ringer was perfused low flow over the incision site. The incision was dressed with prothrombin gel foam followed by sterile compressive dressing consisting of 4 x 4's, ABD and Andrew. The pneumatic calf tourniquet was deflated and a prompt hyperemic response was noted to all digits of the right foot. An Balaji wrap was then applied. The Patient tolerated the procedure and anesthesia well. The Patient was transferred to recovery room with vital signs stable and vascular status intact all toes of the right foot. Following a period of Postoperative monitoring the Patient will be readmitted to the floor resuming all preoperative orders. I attest to the content of the Intraoperative Record and any orders documented therein. Any exceptions are noted below.
[2023-04-04] MEDS: ATORVASTATIN 40 MG TAB PO SCH (22:37)
[2023-04-04] MEDS: DOXAZosin MESYLATE 4 MG TAB PO SCH (22:37)
[2023-04-04] MEDS: PANTOprazole 40 MG TAB PO SCH (22:38)
[2023-04-04] MEDS: METOPROLOL SUCC 50MG EXT REL TAB PO SCH (22:38)
[2023-04-04] MEDS: rOPINIRole HCL 0.25 MG TABLET PO SCH (22:39)
[2023-04-04] MEDS: MELATONIN 3 MG TAB PO SCH (22:52)
[2023-04-04] MEDS: LANTUS PER UNIT CHARGE SC SCH (22:52)
[2023-04-05] MEDS: MEROPENEM 500 MG in SYRINGE 0 ML IV SCH ×4 (05:34→22:48)
[2023-04-05 06:06] LABS: BUN Creatinine Ratio 32.6 (10-20); Calcium 8.2 mg/dl (8.6-10.3); Creatinine Clr Calc Pharmacy 77.3 ml/min; Est GFR (African American) 69.4 ml/min; Est GFR (Non-African American) 59.9 ml/min; Magnesium 1.6 mg/dl (1.7-2.4); Potassium 4.5 mmol/L (3.5-5.1)
[2023-04-05 06:15] LABS: Hematocrit (blood only) 20.3 % (42.0-52.0); Hemoglobin 6.5 g/dl (14.0-18.0); Mean Corpuscular Hemoglobin 27.3 pg (25.0-34.0); Mean Corpuscular Volume 85.3 fL (80.0-100.0); Mean Platelet Volume 10.4 fL (9.4-12.4); Platelet Count 217 K/uL (130-400); RDW Coefficient of Variation 14.6 % (11.5-14.5); RDW Standard Deviation 44.8 fL (36.4-46.3); Red Blood Count 2.38 M/uL (4.70-6.10); White Blood Count 12.66 K/ul (4.8-10.8)
[2023-04-05] MEDS ORDERED: SODIUM CHLORIDE 0.9% 250 ML IV PRN (06:29)
[2023-04-05] MEDS ORDERED: MAGNESIUM SULFATE / D5W 1 GM/100 ML BAG IV ONE (07:04)
[2023-04-05] MEDS ORDERED: VANCOMYCIN LEVEL ONE (07:30)
[2023-04-05] MEDS: LANTUS PER UNIT CHARGE SC SCH ×2 (08:20→21:05)
[2023-04-05] MEDS: INSULIN ASPART PER UNIT CHARGE SC SCH ×4 (08:20→21:06)
[2023-04-05] MEDS: allopurinoL 300 MG TAB PO SCH (08:21)
[2023-04-05] MEDS: ASPIRIN 81 MG ECTAB PO SCH (08:21)
[2023-04-05] MEDS: POLYETHYLENE (MIRALAX) 17 GM PACK PO SCH (08:22)
[2023-04-05] MEDS: FUROSEMIDE 10 MG/ML 10 ML VIAL IV SCH ×2 (08:22→21:13)
[2023-04-05] MEDS: GABAPENTIN 300 MG CAP PO SCH ×3 (08:22→21:12)
--- NOTE | 2023-04-05 08:22 | Nephrology Progress Note ---
Date of Service April 05, 2023 Assessment & Plan (1) CKD (chronic kidney disease): Plan: * Kidney function is stable at this time. Patient is diuresing well * CKD stage G3b/A2 (moderate impairment). Baseline Cr has been 2.0 w/ EGFR 36 cc/min. Urine sediment has been acellular. UPCR 0.2. Renal US 08/31 revealed 11 cm kidneys, no obstruction/stone/mass. Kidney function has fluctuated w/ volume status. Renal impairment is due to DKD, diastolic heart failure (2) Hyponatremia: Plan: * Mild hyponatremia, likely chronic, asymptomatic. Serum sodium has improved from 125 to 130 mmol/L off thiazide diuretic while on furosemide therapy * Volume status is difficult to assess * Thiazide diuretic may have been contributing to hyponatremia * Continue to hold Metolazone * Patient is diuresing w/ loop diuretic while on a low Na diet * Continue Furosemide 100 mg IV BID * Net -821 cc UO last 24 hrs. LE swelling is improved * Monitor PRP (3) Anemia: Plan: * Hgb 6.5 this am * Patient likely will not respond to NAIN therapy due to inflammation * Recommend transfusion to maintain Hgb ~ 8.0 (4) Lymphedema: Plan: * Continue Lasix 100 mg IV BID and monitor volume status, UO, kidney function and electrolyte balance * Hold Metolazone due to hyponatremia * Recommend low Na diet (5) Diabetic ulcer of right heel: Plan: * Agree w/ broad spectrum antibiotic therapy * 04/04/23 R foot I&D, debridement and partial calcaneotomy by Dr. Card Admission and Anticipated Discharge Date Admission Date: April 03, 2023 Subjective Mr. Swartz was evaluated in his hospital room this morning. He denied fever, angina, dyspnea or uremic symptoms. He voiced no new medical concerns Review of Systems Constitutional: no fever Eyes: no worsening vision Ear, Nose, Mouth, Throat: no problem reported Respiratory: no cough and no dyspnea Cardiovascular: no chest pain Gastrointestinal: no abdominal pain, no vomiting and no diarrhea/loose stools Genitourinary: no dysuria, no urinary hesitancy, no hematuria or no flank pain Physical Exam Constitutional: + disheveled; no acute distress Eyes: PERRL, conjunctivae normal, anicteric sclerae ENMT: external ear and nose normal, oropharynx normal Neck: trachea midline, no thyromegaly Respiratory: normal respiratory effort, lungs clear to auscultation Cardiovascular: Rate/Rhythm: regular rate and regular rhythm Extremities: + edema (2+ LE lymphedema, R foot is wrapped) Gastrointestinal (Abdomen): normal bowel sounds, soft, nontender, no hepatosplenomegaly Neurologic: Speech / Cognition: normal speech and normal cognition Results & Data Vital Signs (Past 12 Hours) Vital Signs Temp Pulse Pulse Resp BP BP Pulse Ox 04/05/23 04:03 36.5 C 75 18 122/57 L 93 04/04/23 21:40 04/04/23 22:36 37.6 C H 68 15 137/45 L 99 04/04/23 22:06 37.7 C H 74 16 145/77 H 100 04/04/23 21:36 36.7 C 65 16 142/18 H 99 04/04/23 21:15 36.3 C L 65 16 151/59 H 100 04/04/23 21:00 36.3 C L 78 18 118/65 100 04/04/23 20:45 36.2 C L 73 16 167/65 H 100 04/04/23 20:30 36.2 C L 80 17 163/77 H 100 04/04/23 21:10 36.3 C L 65 16 152/58 H 100 04/04/23 21:00 65 16 151/59 H 100 04/04/23 20:50 72 16 142/77 H 100 04/04/23 20:40 73 16 167/65 H 100 04/04/23 20:30 36.2 C L 81 16 156/71 H 100 O2 Del Method O2 Flow Rate 04/05/23 04:03 Room Air 04/04/23 21:40 Room Air 04/04/23 22:36 1 04/04/23 22:06 2 04/04/23 21:36 2 04/04/23 21:15 2 04/04/23 21:00 4 04/04/23 20:45 4 04/04/23 20:30 6 04/04/23 21:10 Nasal Cannula 2 04/04/23 21:00 Nasal Cannula 4 04/04/23 20:50 Nasal Cannula 4 04/04/23 20:40 Nasal Cannula 4 04/04/23 20:30 Oxymask 6 Laboratory Results Laboratory Tests 04/05/23 04/05/23 05:29 05:29 WBC 12.66 H Hgb 6.5 L* Hct 20.3 L* Plt Count 217 Sodium 130 L Potassium 4.5 Chloride 97 L Carbon Dioxide 25 BUN 43 H Creatinine 1.32 Glucose 260 H PG Care Time/CCT Total # of Minutes Spent Total Time Spent with Patient: Total time spent is greater than 50% in coordination of care (as documented) at patient's floor/unit and/or counseling patient: Coding Level of Care Code 27628 SUB INP/OBS CARE 3/50MIN Diagnoses CKD (chronic kidney disease) N18.9 Hyponatremia E87.1 Anemia D64.9 Lymphedema I89.0 Diabetic ulcer of right heel E11.621; L97.419
[2023-04-05] MEDS: SENNA 8.6 MG TAB PO SCH (08:23)
[2023-04-05] MEDS: predniSONE 5 MG TAB PO SCH (08:23)
[2023-04-05] MEDS: SERTRALINE HCL 50 MG TABLET PO SCH (08:23)
[2023-04-05] MEDS: VANCOMYCIN HCL 1,250 MG in SODIUM CHLORIDE 0.9% 250 ML IV SCH (09:58)
[2023-04-05] MEDS: VANCOMYCIN HCL 750 MG in SODIUM CHLORIDE 0.9% 250 ML IV SCH (11:42)
[2023-04-05 13:11] LABS: Hematocrit (blood only) 24.3 % (42.0-52.0); Hemoglobin 7.8 g/dl (14.0-18.0)
--- NOTE | 2023-04-05 14:07 | Hospitalist Progress Note ---
Date of Service April 05, 2023 Assessment & Plan (1) Diabetic ulcer of right heel: Plan: #osteomyelitis right foot #diabetic ulcer right heel -s/p for debridement, I&D, partial excision calcaneus and delayed primary closure of R foot on 04/04/23 -suspect polymicrobial etiology given poorly controlled DM2 (HgbA1C 9.8%) -continue broad spectrum coverage with vancomycin, meropenem. Will follow cultures. #bacteremia -1 of 2 initial tubes grew streptococcus, repeat cultures were drawn after empiric coverage was started which were negative -no new focal joint pain -continue vancomycin, meropenem -TTE did not show septic vegetations; if persistent bacteremia, can consider EDEN #diastolic heart failure -echo stable from April 2022, EF 60-65% -furosemide 100mg IV BID -I/Os: approximately negative 2200 mL #anemia -Received his second RBC transfusion after Hgb fell from 7.2 to 6.5, now back up to 7.8 -symptomatically feels better after transfusions #diabetes mellitus -HgbA1C 9.8% -discussed importance of glycemic control in wound healing, heart disease, cereb rovascular disease #CKD stage 4 -most recent Cr 1.32, will continue to monitor given his diuresis -appreciate nephrology recommendations #hyponatremia -Na 125 on admission (asymptomatic), likely a dilutional component, will monitor -Na up to 128 on 04/04/23 #HLD -atorvastatin 80 #HTN -most recent BP 139/83 -home dose metoprolol w/ parameters -continue diuresis #WHIT -continue at home CPAP #PAD -Diffuse atherosclerotic disease on arterial Doppler of the right lower extremity, continue home aspirin and atorvastatin,consider vascular surgery consultation #gout -allopurinol, prednisone #constipation -Miralax, Senna #restless legs -given extra dose of pramipexole 0.25 -continue nightly #depression -sertraline FENGI: heart healthy, carb conscious #DVT ppx: Lovenox 40 q24 Admission and Anticipated Discharge Date Admission Date: April 03, 2023 Supervising Physician Co-Signing Physician Notes Attempted to see pt twice - once sleeping and the second time sitting on the toilet - discussed with Dr Tran and Rosio Rowell MS4 vitals noted nad sleeping in bed on cpap later sitting on bedside commode playing solitaire on his phone. breathing unlabored no accessory muscles good effort skin no rashes no pallor or icterus Diabetic foot ulcer with abscess and subsequent osteomyelitis, sepsis on admission (tachycardia and leukocytosis)continue meropenem and vancomycin. follow cultures. with blood culture being 1/2, and follow up no growth to date, echo reassuring - suspect contaminant. continue to try to educate on DM control. Uncontrolled diabeteseducation as he will allow, seems precontemplative in discussion with team Otherwise as above Subjective Mr. Swartz tolerated his debridement relatively well and does not have any acute concerns other than a sore throat post-operatively. He slept well with his CPAP. He is receiving an additional unit of RBCs and does not have fever, chills, or acute pain. He had a bowel movement today without diarrhea and does not have dysuria. We discussed the importance of maintaining glycemic control in terms of preventing future diabetic complications. He is aware of the complications of poorly controlled diabetes, but at this time, he is not interested in seeking help from a dietitian. Results & Data Results & Data Vital Signs (Past 12 Hours) Vital Signs Temp Pulse Pulse Resp BP BP Pulse Ox 04/05/23 11:29 36.5 C 61 18 133/64 95 04/05/23 09:00 69 04/05/23 08:00 36.6 C 62 14 115/55 L 94 04/05/23 11:24 36.6 C 62 18 123/46 L 04/05/23 10:39 36.6 C 60 16 142/60 H 95 04/05/23 09:39 36.4 C 65 18 104/53 L 95 04/05/23 09:09 36.4 C L 67 18 119/70 04/05/23 08:54 36.8 C 66 18 112/65 94 04/05/23 08:35 36.5 C 67 18 116/60 94 04/05/23 04:03 36.5 C 75 18 122/57 L 93 O2 Del Method 04/05/23 11:29 Room Air 04/05/23 09:00 04/05/23 08:00 Room Air 04/05/23 11:24 04/05/23 10:39 04/05/23 09:39 04/05/23 09:09 04/05/23 08:54 04/05/23 08:35 04/05/23 04:03 Room Air
--- NOTE | 2023-04-05 14:34 | Pharmacy Report ---
Pharmacy Glycemic Short Note 2 - Date of Service April 05, 2023 - Glycemic Short BSG Results (Last 24 hours): 04/04/23 04/04/23 04/04/23 16:19 20:33 21:38 Glucose POC Glucose 185 H 197 H 223 H 04/05/23 04/05/23 04/05/23 05:29 07:08 11:13 Glucose 260 H POC Glucose 298 H 303 H* 04/05/23 11:14 Glucose POC Glucose 290 H OUTPATIENT ANTIDIABETIC REGIMEN: * Lantus 50 units SC HS * Humulin-R U-500: 85 units SC breakfast, 75 units SC lunch, 60 units SC dinner * HbA1c: 9.8% (04/02/23) ASSESSMENT: 04/05: * Patient received 102 units of insulin yesterday, 90 basal + 12 bolus. BSGs were: 304-485-678-223 mg/dL. * Did go to the OR yesterday afternoon for an I&D of foot. * Fasting BSG elevated at 298 mg/dL this AM. This is likely related to inadequate insulin dosing as well as perioperative dexamethasone use. * Tightened Novolog this afternoon. Will also increase HS basal dose today. * Continues on Pred 5 mg PO daily. 04/04: * Inder received 144 units of insulin yesterday, 80 basal + 64 bolus. BSGs were: 248-453-287-91 mg/dL. * Given trend down in postprandials, had 2nd shift pharmacist change dinner carb ratio to 4 but RN still administered insulin based on CR of 3. * Loosened Novolog parameters this AM to account for this. Lunchtime did trend down but not as significantly as yesterday. * Fasting BSG improved to 202 mg/dL this AM but still uncontrolled. Patient is NPO today for an I&D of right foot. Will continue with same basal dosing despite NPO status given elevated fasting. * Restarted on home dose of Prednisone 5 mg PO daily. 04/03: * 57 yo M admitted on 04/03/23 secondary to osteomyelitis of right foot secondary to a diabetic foot infection. Pharmacy has been consulted to assist with inpatient glycemic management. Patient is a poorly controlled Type 2 diabetic as an outpatient. Please refer to outpatient regimen and most recent HbA1c above. History of non-compliance with this patient. * Ordered and tolerating diet. Stressors currently include infection requiring Vancomycin and Meropenem. Still awaiting surgical eval. * Will utilize previous admission data to design initial inpatient insulin regimen. * 50 units basal ordered BID by overnight pharmacist. Will scale PM dose in case patient is made NPO for surgery tomorrow. * Novolog ACHS per previous admission data. PLAN FOR INPATIENT GLYCEMIC CONTROL: * Hold outpatient U-500 for now * Basal insulin * Lantus 50 units SC AM * Lantus 50-60 units SC PM * Bolus insulin * NovoLog per scale ACHS or Q6hrs while NPO * Goal Range: Low 110 mg/dL - High 140 mg/dL * Correction Factor: 10 mg/dL/unit * Nutritional / Prandial insulin per carb ratio of 1 unit per 3 grams CHO consumed
--- NOTE | 2023-04-05 14:40 | Pharmacy Report ---
Pharmacy PK ABX Note - Date of Service April 05, 2023 - Assessment and Plan Assessment 57 year old M receiving Vancomycin and Meropenem for treatment of osteomyelitis of the right foot secondary to diabetic foot infection. * Day #2 of antimicrobial therapy. * 24 hr Tmax of 37.7oC. Renal fxn is stable. Leukocytosis improving. * Blood cultures growing alpha strep not enterococcus in 1/4 bottles from admission. Likely a contaminant. Initial surface culture of foot is growing staph species. * Underwent I&D of foot yesterday. Continue with Vanc and Meropenem until cultures result. Plan Vancomycin * Current regimen: 750 mg IV every 12 hours * Random level obtained 04/05/23 resulted as 19.1 mcg/mL. This is predicted to achieve target AUC/CLAUDIA of 400-600 mg/L.hr. However, given elevated BMI, wo rried about patient accumulating. * Change to 1250 mg IV every 24 hours. Predicted AUC at steady state: 473 mg/L.hr * Repeat random level ordered for: 04/07/23 Pharmacy will continue to follow and will adjust dose/frequency as necessary. Thank you. Pharmacy has transitioned to AUC monitoring for vancomycin. AUC/CLAUDIA is the preferred PK/PD target and is associated with decreased risk of nephrotoxicity compared to traditional trough targets.
[2023-04-05] MEDS: ENOXAPARIN INJ 40 MG/0.4 ML SYR SQ SCH (16:54)
[2023-04-05] MEDS: LACTATED RINGER'S 1,000 ML IV SCH (16:55)
--- NOTE | 2023-04-05 17:39 | XRay Report ---
XR foot RT min 3V routine CLINICAL HISTORY: Postoperative evaluation. COMPARISON: CT of the right foot April 03, 2023. FINDINGS: Diffuse soft tissue swelling is noted. This is most pronounced overlying the dorsal right forefoot. There are postoperative findings consistent with partial right calcaneal resection with wou nd debridement. There are no unexpected radiopaque foreign bodies. Specifically, the inferior and pos terior aspects of the calcaneus have been resected. IMPRESSION: 1. Postoperative findings consistent with partial right calcaneal resection with wound debridement. 2. Diffuse soft tissue swelling of the right foot. ACT 112: Negative or not required by law. Electronically signed by: Rafat Powell M.D. 04/05/2023 5:37 PM
--- NOTE | 2023-04-05 19:03 | Billing Data ---
Date of Service April 05, 2023 Coding Level of Care Code 99655 SUB INP/OBS CARE
[2023-04-05] MEDS: MELATONIN 3 MG TAB PO SCH (21:11)
[2023-04-05] MEDS: ATORVASTATIN 40 MG TAB PO SCH (21:12)
[2023-04-05] MEDS: rOPINIRole HCL 0.25 MG TABLET PO SCH (21:12)
[2023-04-05] MEDS: PANTOprazole 40 MG TAB PO SCH (21:12)
[2023-04-05] MEDS: DOXAZosin MESYLATE 4 MG TAB PO SCH (21:12)
--- NOTE | 2023-04-05 21:46 | Orthopedic Progress Note ---
Date of Service April 05, 2023 Assessment & Plan (1) Diabetic ulcer of right heel: Plan: Patient seen, evaluated, and treated. Received his second RBC transfusion when Hgb fell from 7.2 to 6.5, now back up to 7.8 WBC trending down. Dressing change completed with out incident. Patient would like to continue with attempted limb salvage. This will require additional wound debridement and extended wound care. Patient is aware. Awaiting further demarcation prior to next wound debridement later this week. (2) Osteomyelitis: (3) Lymphedema: Admission and Anticipated Discharge Date Admission Date: April 03, 2023 Subjective Patient seen at bedside resting comfortably. Patient status post day #1 right foot I&D, wound debridement, partial calcanectomy. He has no complaints. Review of Systems Review of Systems: All systems reviewed & are unremarkable except as noted in Subjective Results & Data Vital Signs (Past 12 Hours) Vital Signs Temp Pulse Pulse Resp BP BP Pulse Ox 04/05/23 19:45 36.5 C 62 18 126/62 96 04/05/23 17:35 63 04/05/23 16:32 36.8 C 58 L 18 128/63 97 04/05/23 11:29 36.5 C 61 18 133/64 95 04/05/23 11:24 36.6 C 62 18 123/46 L 04/05/23 10:39 36.6 C 60 16 142/60 H 95 O2 Del Method 04/05/23 19:45 Room Air 04/05/23 17:35 04/05/23 16:32 Room Air 04/05/23 11:29 Room Air 04/05/23 11:24 04/05/23 10:39
[2023-04-05] MEDS: METOPROLOL SUCC 50MG EXT REL TAB PO SCH (22:47)
[2023-04-06] MEDS: MEROPENEM 500 MG in SYRINGE 0 ML IV SCH ×4 (04:36→21:48)
[2023-04-06 06:51] LABS: Hemoglobin 7.7 g/dl (14.0-18.0); Mean Corpuscular Hemoglobin 27.8 pg (25.0-34.0); Mean Corpuscular Hgb Conc 32.1 g/dL (32.0-36.0); Mean Corpuscular Volume 86.6 fL (80.0-100.0); Mean Platelet Volume 10.1 fL (9.4-12.4); Nucleated RBC # (auto) 0.02 K/uL (0-0.12); Nucleated RBC % (auto) 0.2 %; Platelet Count 261 K/uL (130-400); RDW Coefficient of Variation 14.6 % (11.5-14.5); RDW Standard Deviation 45.9 fL (36.4-46.3); Red Blood Count 2.77 M/uL (4.70-6.10); White Blood Count 12.18 K/ul (4.8-10.8)
[2023-04-06 07:10] LABS: BUN Creatinine Ratio 28.4 (10-20); Calcium 8.7 mg/dl (8.6-10.3); Creatinine Clr Calc Pharmacy 62.4 ml/min; Est GFR (African American) 54.2 ml/min; Est GFR (Non-African American) 46.7 ml/min; Magnesium 1.8 mg/dl (1.7-2.4); Potassium 4.4 mmol/L (3.5-5.1)
[2023-04-06] MEDS: INSULIN ASPART PER UNIT CHARGE SC SCH ×4 (07:59→21:52)
[2023-04-06] MEDS: allopurinoL 300 MG TAB PO SCH (08:00)
[2023-04-06] MEDS: GABAPENTIN 300 MG CAP PO SCH ×3 (08:00→21:48)
[2023-04-06] MEDS: ASPIRIN 81 MG ECTAB PO SCH (08:00)
[2023-04-06] MEDS: FUROSEMIDE 10 MG/ML 10 ML VIAL IV SCH (08:00)
[2023-04-06] MEDS: SENNA 8.6 MG TAB PO SCH (08:00)
[2023-04-06] MEDS: predniSONE 5 MG TAB PO SCH (08:01)
[2023-04-06] MEDS: LANTUS PER UNIT CHARGE SC SCH ×2 (08:01→21:52)
[2023-04-06] MEDS: SERTRALINE HCL 50 MG TABLET PO SCH (08:01)
[2023-04-06] MEDS: VANCOMYCIN HCL 1,250 MG in SODIUM CHLORIDE 0.9% 250 ML IV SCH (08:02)
[2023-04-06] MEDS: POLYETHYLENE (MIRALAX) 17 GM PACK PO SCH (08:02)
--- NOTE | 2023-04-06 08:24 | Nephrology Progress Note ---
Date of Service April 06, 2023 Assessment & Plan (1) CKD (chronic kidney disease): Plan: * Kidney function remains stable at this time. Patient is diuresing well * CKD stage G3b/A2 (moderate impairment). Baseline Cr has been 2.0 w/ EGFR 36 cc/min. Urine sediment has been acellular. UPCR 0.2. Renal US 08/31 revealed 11 cm kidneys, no obstruction/stone/mass. Kidney function has fluctuated w/ volume status. Renal impairment is due to DKD, diastolic heart failure (2) Hyponatremia: Plan: * Mild hyponatremia, likely chronic, asymptomatic. Serum sodium has improved from 125 to 133 mmol/L off thiazide diuretic while on furosemide therapy * Volume status is difficult to assess due to chronic lymphedema * Thiazide diuretic may have been contributing to hyponatremia and has been stopped * Patient is diuresing w/ loop diuretic while on a low Na diet * Continue Furosemide 100 mg IV BID. Will provide one additional dose at 2pm today * Net -400 cc UO last 24 hrs, net [id number] siince admission. LE swelling is mildly improved * Monitor PRP (3) Anemia: Plan: * Hgb improved from 6.5 to 7.7 this am * Patient likely will not respond to NAIN therapy due to inflammation * Recommend transfusion to maintain Hgb 8.0 or above (4) Lymphedema: Plan: * Continue Lasix 100 mg IV BID and monitor volume status, UO, kidney function and electrolyte balance. Will provide one additional dose of Furosemide at 2 pm today * Hold Metolazone due to hyponatremia * Recommend low Na diet (5) Diabetic ulcer of right heel: Plan: * Agree w/ broad spectrum antibiotic therapy - Vancomycin, Meropenem * 04/04/23 R foot I&D, debridement and partial calcaneotomy by Dr. Card Admission and Anticipated Discharge Date Admission Date: April 03, 2023 Subjective Mr. Swartz was evaluated in his hospital room this morning. He denied fever, angina, dyspnea or uremic symptoms. He voiced no new medical concerns Review of Systems Constitutional: no fever Eyes: no worsening vision Ear, Nose, Mouth, Throat: no problem reported Respiratory: no cough and no dyspnea Cardiovascular: no chest pain Gastrointestinal: no abdominal pain, no vomiting and no diarrhea/loose stools Genitourinary: no dysuria, no urinary hesitancy, no hematuria or no flank pain Physical Exam Constitutional: no acute distress Eyes: PERRL, conjunctivae normal, anicteric sclerae ENMT: external ear and nose normal, oropharynx normal Neck: trachea midline, no thyromegaly Respiratory: normal respiratory effort, lungs clear to auscultation Cardiovascular: Rate/Rhythm: regular rate and regular rhythm Extremities: + edema (2+ LE lymphedema, R foot is wrapped) Gastrointestinal (Abdomen): normal bowel sounds, soft, nontender, no hepatosplenomegaly Neurologic: Speech / Cognition: normal speech and normal cognition Results & Data Vital Signs (Past 12 Hours) Vital Signs Temp Pulse Pulse Resp BP Pulse Ox O2 Del Method 04/06/23 07:03 36.5 C 58 L 18 122/65 95 Room Air 04/06/23 02:50 36.3 C L 62 18 127/63 94 Room Air 04/05/23 23:21 60 04/05/23 23:02 36.4 C L 59 L 18 119/55 L 97 Room Air 04/05/23 21:15 CPAP Laboratory Results Laboratory Tests 04/06/23 04/06/23 06:15 06:15 WBC 12.18 H Hgb 7.7 L Hct 24.0 L Plt Count 261 Sodium 133 L Potassium 4.4 Chloride 96 L Carbon Dioxide 28 BUN 46 H Creatinine 1.62 H D Glucose 186 H PG Care Time/CCT Total # of Minutes Spent Total Time Spent with Patient: Total time spent is greater than 50% in coordination of care (as documented) at patient's floor/unit and/or counseling patient: Coding Level of Care Code 99028 SUB INP/OBS CARE 3/50MIN Diagnoses CKD (chronic kidney disease) N18.9 Hyponatremia E87.1 Anemia D64.9 Lymphedema I89.0 Diabetic ulcer of right heel E11.621; L97.419
--- NOTE | 2023-04-06 10:34 | Hospitalist Progress Note ---
Date of Service April 06, 2023 Assessment & Plan (1) Diabetic ulcer of right heel: Plan: #osteomyelitis right foot #diabetic ulcer right heel -s/p debridement, I&D, partial excision calcaneus and delayed primary closure of R foot on 04/04/23 -suspect polymicrobial etiology given poorly controlled DM2 (HgbA1C 9.8%) -Foot cultures: MRSA, gram negative bacilli -continue vancomycin, meropenem. -Plan to proceed with limb salvage with possibility of further debridement later this week #bacteremia -1 of 2 initial blood cultures grew alpha strep, repeat cultures remain negative -no new focal joint pain -on vancomycin, meropenem -TTE did not show septic vegetations; if persistent bacteremia, can consider EDEN #diastolic heart failure -echo stable from April 2022, EF 60-65% -Cr elevated to 1.62 from 1.32 on furosemide 100mg IV BID -Will hold Lasix for now -monitor I/Os #anemia -Hgb stable at 7.7 today, was 7.8 yesterday. S/p 2 RBC transfusions. -multifactorial etiology given CKD and recent debridement #diabetes mellitus -HgbA1C 9.8% -discussed importance of glycemic control in wound healing, heart disease, cerebrovascular disease #CKD stage 4 -most recent Cr elevated to 1.62, will continue to monitor given his diuresis -appreciate nephrology recommendations #hyponatremia -Na 125 on admission (asymptomatic), likely a dilutional component, will monitor -Na up to 133 on 04/06/23 #HLD -atorvastatin 80 #HTN -most recent BP 122/65 -home dose metoprolol w/ parameters -continue diuresis #WHIT -continue at home CPAP #PAD -Diffuse atherosclerotic disease on arterial Doppler of the right lower extremity, continue home aspirin and atorvastatin,consider vascular surgery consultation #gout -allopurinol, prednisone #constipation -Miralax, Senna #restless legs -given extra dose of pramipexole 0.25 -continue nightly #depression -sertraline FENGI: heart healthy, carb conscious #DVT ppx: Lovenox 40 q24 Admission and Anticipated Discharge Date Admission Date: April 03, 2023 Supervising Physician Co-Signing Physician Notes Attempted to see pt sleeping soundly, chart reviewed and case discussed with Dr Tran and Rosio Rowell MS4 vitals noted nad sleeping in bed on cpap. breathing unlabored no accessory muscles good effort skin no rashes no pallor or icterus. leg dressed, no erythema noted around dressing Diabetic foot ulcer with abscess and subsequent osteomyelitis, sepsis on admission (tachycardia and leukocytosis)continue meropenem and vancomycin. follow cultures - showing MRSA and GNR. with blood culture being 1/2, and follow up no growth to date, echo reassuring - suspect contaminant. continue to try to educate on DM control. Uncontrolled diabeteseducation as he will allow, seems precontemplative in discussion with team Otherwise as above Subjective Mr. Swartz slept fairly well. He has no acute concerns. No fevers or chills although he does feel a bit cold right after getting bathed. No new focal joint pains, no dysuria. He has regular bowel movements without diarrhea. He contacted his PCP at the [facility] to alert them about his hospitalization. Review of Systems Review of Systems: All systems reviewed & are unremarkable except as noted in HPI & below Physical Exam Physical Exam: Appearance: lying comfortably supine in bed Respiratory: no conversational dyspnea, normal respiratory effort, no accessory muscle use Cardiovascular: RRR, no appreciable murmurs Gastrointestinal (Abdomen): active bowel sounds, no tenderness to palpation, no rebound/guarding Lymphatic: significant bilateral LE edema R > L, dressing on R foot is dry, surrounding erythema/skin changes stable from prior exam Results & Data Results & Data Vital Signs (Past 12 Hours) Vital Signs Temp Pulse Pulse Resp BP Pulse Ox O2 Del Method 04/06/23 07:03 36.5 C 58 L 18 122/65 95 Room Air 04/06/23 02:50 36.3 C L 62 18 127/63 94 Room Air 04/05/23 23:21 60 04/05/23 23:02 36.4 C L 59 L 18 119/55 L 97 Room Air
--- NOTE | 2023-04-06 11:10 | Pharmacy Report ---
Pharmacy Glycemic Short Note 2 - Date of Service April 06, 2023 - Glycemic Short BSG Results (Last 24 hours): 04/05/23 04/05/23 04/05/23 11:13 11:14 16:31 Glucose POC Glucose 303 H* 290 H 71 04/05/23 04/06/23 04/06/23 20:02 06:15 07:14 Glucose 186 H POC Glucose 156 H 214 H OUTPATIENT ANTIDIABETIC REGIMEN: * Lantus 50 units SC HS * Humulin-R U-500: 85 units SC breakfast, 75 units SC lunch, 60 units SC dinner * HbA1c: 9.8% (04/02/23) ASSESSMENT: 04/06: * Inder received 170 units of insulin yesterday, 100 basal + 70 bolus. BSGs were: 850-054-61-156 mg/dL. * Remains on Vancomycin and Meropenem for foot infection. I&D performed 04/04/23. May need another. Remains on Pred 5 mg PO daily from home. * Feel that periop dexamethasone played a role in elevated AM blood sugars yesterday which led to large bolus doses that may have stacked and cause dinner BSG of 71 mg/dL. Will loosen carb ratio slightly today. * Fasting BSG improved to 214 mg/dL this AM but still uncontrolled. * Continue AM basal but increase PM basal scale. 04/05: * Patient received 102 units of insulin yesterday, 90 basal + 12 bolus. BSGs were: 397-985-872-223 mg/dL. * Did go to the OR yesterday afternoon for an I&D of foot. * Fasting BSG elevated at 298 mg/dL this AM. This is likely related to inadequate insulin dosing as well as perioperative dexamethasone use. * Tightened Novolog this afternoon. Will also increase HS basal dose today. * Continues on Pred 5 mg PO daily. 04/04: * Inder received 144 units of insulin yesterday, 80 basal + 64 bolus. BSGs were: 376-777-421-91 mg/dL. * Given trend down in postprandials, had 2nd shift pharmacist change dinner carb ratio to 4 but RN still administered insulin based on CR of 3. * Loosened Novolog parameters this AM to account for this. Lunchtime did trend down but not as significantly as yesterday. * Fasting BSG improved to 202 mg/dL this AM but still uncontrolled. Patient is NPO today for an I&D of right foot. Will continue with same basal dosing despite NPO status given elevated fasting. * Restarted on home dose of Prednisone 5 mg PO daily. 04/03: * 57 yo M admitted on 04/03/23 secondary to osteomyelitis of right foot secondary to a diabetic foot infection. Pharmacy has been consulted to assist with inpatient glycemic management. Patient is a poorly controlled Type 2 diabetic as an outpatient. Please refer to outpatient regimen and most recent HbA1c above. History of non-compliance with this patient. * Ordered and tolerating diet. Stressors currently include infection requiring Vancomycin and Meropenem. Still awaiting surgical eval. * Will utilize previous admission data to design initial inpatient insulin regimen. * 50 units basal ordered BID by overnight pharmacist. Will scale PM dose in case patient is made NPO for surgery tomorrow. * Novolog ACHS per previous admission data. PLAN FOR INPATIENT GLYCEMIC CONTROL: * Hold outpatient U-500 for now * Basal insulin * Lantus 50 units SC AM * Lantus 50-60 units SC PM * Bolus insulin * NovoLog per scale ACHS or Q6hrs while NPO * Goal Range: Low 110 mg/dL - High 140 mg/dL * Correction Factor: 10 mg/dL/unit * Nutritional / Prandial insulin per carb ratio of 1 unit per 4 grams CHO consumed
[2023-04-06] MEDS ORDERED: FUROSEMIDE 10 MG/ML 10 ML VIAL IV ONE (14:00)
[2023-04-06] MEDS: LACTATED RINGER'S 1,000 ML IV SCH (16:40)
[2023-04-06] MEDS: DAKIN'S SOLN 0.125% QUARTER STRENGTH 473 ML BTL EXT SCH (16:45)
[2023-04-06] MEDS: ENOXAPARIN INJ 40 MG/0.4 ML SYR SQ SCH (16:48)
--- NOTE | 2023-04-06 18:53 | Billing Data ---
Date of Service April 06, 2023 Coding Level of Care Code 34012 SUB INP/OBS CARE 12/07MIN
--- NOTE | 2023-04-06 18:53 | Billing Data ---
Date of Service April 06, 2023 Coding Level of Care Code 93782 SUB INP/OBS CARE 12/07MIN
[2023-04-06] MEDS: PANTOprazole 40 MG TAB PO SCH (21:47)
[2023-04-06] MEDS: METOPROLOL SUCC 50MG EXT REL TAB PO SCH (21:47)
[2023-04-06] MEDS: DOXAZosin MESYLATE 4 MG TAB PO SCH (21:48)
[2023-04-06] MEDS: ATORVASTATIN 40 MG TAB PO SCH (21:48)
[2023-04-06] MEDS: rOPINIRole HCL 0.25 MG TABLET PO SCH (21:48)
[2023-04-06] MEDS: MELATONIN 3 MG TAB PO SCH (21:58)
[2023-04-07 04:48] LABS: Hemoglobin 7.6 g/dl (14.0-18.0); Mean Corpuscular Hemoglobin 27.6 pg (25.0-34.0); Mean Corpuscular Hgb Conc 31.7 g/dL (32.0-36.0); Mean Corpuscular Volume 87.3 fL (80.0-100.0); Mean Platelet Volume 9.5 fL (9.4-12.4); Platelet Count 231 K/uL (130-400); RDW Coefficient of Variation 14.7 % (11.5-14.5); RDW Standard Deviation 46.6 fL (36.4-46.3); Red Blood Count 2.75 M/uL (4.70-6.10)
[2023-04-07 05:04] LABS: BUN Creatinine Ratio 28.2 (10-20); Calcium 8.2 mg/dl (8.6-10.3); Creatinine Clr Calc Pharmacy 55.9 ml/min; Est GFR (African American) 47.4 ml/min; Est GFR (Non-African American) 40.9 ml/min; Potassium 4.4 mmol/L (3.5-5.1)
[2023-04-07] MEDS: MEROPENEM 500 MG in SYRINGE 0 ML IV SCH (05:57)
--- NOTE | 2023-04-07 08:33 | Nephrology Progress Note ---
Date of Service April 07, 2023 Assessment & Plan (1) CKD (chronic kidney disease): Plan: * Kidney function remains stable at this time. Electrolyte balance is acceptable * CKD stage G3b/A2 (moderate impairment). Baseline Cr has been 2.0 w/ EGFR 36 cc/min. Urine sediment has been acellular. UPCR 0.2. Renal US 08/31 revealed 11 cm kidneys, no obstruction/stone/mass. Kidney function has fluctuated w/ volume status. Renal impairment is due to DKD, diastolic heart failure (2) Hyponatremia: Plan: * Mild hyponatremia, likely chronic, asymptomatic. Serum sodium has improved from 125 to 132 mmol/L off thiazide diuretic while on furosemide therapy * Volume status is difficult to assess due to chronic lymphedema * Thiazide diuretic may have been contributing to hyponatremia and has been stopped * Patient is diuresing w/ loop diuretic while on a low Na diet * I&O's matched last 24 hours. Will schedule Furosemide 100 mg IV TID * Net [id number] since admission. LE swelling is mildly improved * Monitor PRP (3) Anemia: Plan: * Hgb improved from 6.5 to 7.6 this am * Patient likely will not respond to NAIN therapy due to inflammation * Recommend transfusion to maintain Hgb 8.0 or above (4) Lymphedema: Plan: * Continue Lasix 100 mg IV TID and monitor volume status, UO, kidney function and electrolyte balance * Hold Metolazone due to hyponatremia * Recommend low Na diet (5) Diabetic ulcer of right heel: Plan: * Agree w/ broad spectrum antibiotic therapy - Vancomycin, Meropenem * 04/04/23 R foot I&D, debridement and partial calcaneotomy by Dr. Card Admission and Anticipated Discharge Date Admission Date: April 03, 2023 Subjective Mr. Swartz was evaluated in his hospital room this morning. He denied fever, angina, dyspnea or uremic symptoms. He voiced no new medical concerns Review of Systems Constitutional: no fever Eyes: no worsening vision Ear, Nose, Mouth, Throat: no problem reported Respiratory: no cough and no dyspnea Cardiovascular: no chest pain Gastrointestinal: no abdominal pain, no vomiting and no diarrhea/loose stools Genitourinary: no dysuria, no urinary hesitancy, no hematuria or no flank pain Physical Exam Constitutional: + disheveled; no acute distress Eyes: PERRL, conjunctivae normal, anicteric sclerae ENMT: external ear and nose normal, oropharynx normal Neck: trachea midline, no thyromegaly Respiratory: normal respiratory effort, lungs clear to auscultation Cardiovascular: Rate/Rhythm: regular rate and regular rhythm Extremities: + edema (2+ LE lymphedema, R foot is wrapped) Gastrointestinal (Abdomen): normal bowel sounds, soft, nontender, no hepatosplenomegaly Neurologic: Speech / Cognition: normal speech and normal cognition Results & Data Vital Signs (Past 12 Hours) Vital Signs Temp Pulse Pulse Resp BP Pulse Ox O2 Del Method 04/07/23 07:42 36.6 C 59 L 21 119/85 96 Room Air 04/06/23 22:45 Room Air, CPAP 04/06/23 22:00 63 04/07/23 03:00 36.5 C 63 20 128/72 95 CPAP 04/06/23 23:00 36.6 C 62 20 130/69 96 Room Air Laboratory Results Laboratory Tests 04/07/23 04/07/23 04:24 04:24 WBC 10.10 Hgb 7.6 L Hct 24.0 L Plt Count 231 Sodium 132 L Potassium 4.4 Chloride 96 L Carbon Dioxide 27 BUN 51 H Creatinine 1.81 H Glucose 216 H Calcium 8.2 L PG Care Time/CCT Total # of Minutes Spent Total Time Spent with Patient: Total time spent is greater than 50% in coordination of care (as documented) at patient's floor/unit and/or counseling patient: Coding Level of Care Code 61390 SUB INP/OBS CARE 3/50MIN Diagnoses CKD (chronic kidney disease) N18.9 Hyponatremia E87.1 Anemia D64.9 Lymphedema I89.0 Diabetic ulcer of right heel E11.621; L97.419
[2023-04-07] MEDS: LANTUS PER UNIT CHARGE SC SCH (08:50)
[2023-04-07] MEDS: INSULIN ASPART PER UNIT CHARGE SC SCH ×4 (08:50→20:54)
[2023-04-07] MEDS: SENNA 8.6 MG TAB PO SCH (09:57)
[2023-04-07] MEDS: predniSONE 5 MG TAB PO SCH (09:57)
[2023-04-07] MEDS: GABAPENTIN 300 MG CAP PO SCH ×3 (09:57→20:47)
[2023-04-07] MEDS: ASPIRIN 81 MG ECTAB PO SCH (09:58)
[2023-04-07] MEDS: SERTRALINE HCL 50 MG TABLET PO SCH (09:58)
[2023-04-07] MEDS: POLYETHYLENE (MIRALAX) 17 GM PACK PO SCH (09:58)
[2023-04-07] MEDS: allopurinoL 300 MG TAB PO SCH (09:58)
[2023-04-07] MEDS: FUROSEMIDE 10 MG/ML 10 ML VIAL IV SCH ×3 (09:58→20:48)
--- NOTE | 2023-04-07 10:13 | Hospitalist Progress Note ---
Date of Service April 07, 2023 Assessment & Plan (1) Diabetic ulcer of right heel: Plan: #osteomyelitis right foot #diabetic ulcer right heel -s/p debridement, I&D, partial excision calcaneus and delayed primary closure of R foot on 04/04/23. -F/u Xray from 04/05: inferior/posterior aspects of calcaneus resected, diffuse soft tissue swelling -Based on cultures: meropenem narrowed to cefazolin. Continue vancomycin. WBC trending down. -subsequent debridement scheduled for evening of 04/07. -Blood cultures: no change. No new focal joint pain. -repeat CRP 04/08 #diastolic heart failure -echo stable from April 2022, EF 60-65% -lungs dry on exam -will hold furosemide 100mg IV TID -monitor I/Os #anemia -Hgb 7.6. S/p 2 RBC transfusions. Hemodynamically stable -multifactorial etiology given CKD and recent debridement #diabetes mellitus -HgbA1C 9.8% -discussed importance of glycemic control in wound healing, heart disease, cerebrovascular disease #CKD stage 4 -most recent Cr 1.81, baseline is ~2, will continue to monitor -nephrology recommendations #hyponatremia -Na 125 on admission (asymptomatic), suspect a diuretic-related component, will monitor #HLD -atorvastatin 80 #HTN -stable -home dose metoprolol w/ parameters -continue diuresis #WHIT -continue at home CPAP #PAD -Diffuse atherosclerotic disease on arterial Doppler of the right lower extremity, continue home aspirin and atorvastatin,consider vascular surgery consultation #gout -allopurinol, prednisone #constipation -Miralax, Senna #restless legs -given extra dose of pramipexole 0.25 -continue nightly #depression -sertraline FENGI: heart healthy, carb conscious #DVT ppx: Lovenox 40 q24 Admission and Anticipated Discharge Date Admission Date: April 03, 2023 Supervising Physician Co-Signing Physician Notes I personally examined the patient and verified all lester points of history and exam, discussed case, and agree with decision making with Rosio Rowell MS4 and Dr Calle Laying in bed, upset that he is n.p.o.for surgery later today. No acute complaints. vitals noted nad breathing unlabored no accessory muscles good effort skin no rashes no pallor or icterus. leg dressed, no erythema noted around dressing, nontender (although has fairly dense neuropathy) Diabetic foot ulcer with abscess and subsequent osteomyelitis, sepsis on admission (tachycardia and leukocytosis)continue meropenem and vancomycin. follow cultures - showing MRSA and GNR. with blood culture being 1/2, and follow up no growth to date, echo reassuring - suspect contaminant. Vancomycin for MRSA, given that his gram-negative's are showing pansensitive, agree with narrowing to cefazolinbut will continue to follow closely. Uncontrolled diabeteseducation as he will allow, seems precontemplative in discussion with team Otherwise as above Subjective Mr. Swartz does not have any new concerns. Continues with wound care. No new focal joint pains. He has no fevers, chills, dysuria, or diarrhea. We discussed his long-term diabetes management and he has no new thoughts on the issue. Review of Systems Review of Systems: All systems reviewed & are unremarkable except as noted in HPI & below Physical Exam Physical Exam: sitting upright off the side of the bed with feet on the floor, NAD Respiratory: no conversational dyspnea, on room air, CTA BL, no rales/rhonchi/wheeze Cardiovascular: RRR, no M/R/G Musculoskeletal: no bony tenderness to palpation of the spinous processes Skin: wound care at midline sacral area, dry without surrounding erythema/discharge Lymphatic: significant BL LE edema stable from prior exam; R foot wound care shows calcaneus wrapped in gauze with serosanguineous discharge Results & Data Results & Data Vital Signs (Past 12 Hours) Vital Signs Temp Pulse Pulse Resp BP Pulse Ox O2 Del Method 04/07/23 08:33 56 L 04/07/23 07:42 36.6 C 59 L 21 119/85 96 Room Air 04/06/23 22:45 Room Air, CPAP 04/06/23 22:00 63 04/07/23 03:00 36.5 C 63 20 128/72 95 CPAP 04/06/23 23:00 36.6 C 62 20 130/69 96 Room Air Laboratory Results 04/07/23 04/07/23 04/07/23 11:52 11:15 07:14 WBC RBC Hgb Hct MCV MCH MCHC RDW Std Deviation RDW Coeff of Diane Plt Count MPV Sodium Potassium Chloride Carbon Dioxide Anion Gap BUN Creatinine Est Cr Clr Drug Dosing Est GFR ( Amer) Est GFR (Non-Af Amer) BUN/Creatinine Ratio Glucose POC Glucose 186 H 223 H Calcium Random Vancomycin 18.8 04/07/23 04/07/23 04/07/23 04:34 04:24 04:24 WBC 10.10 RBC 2.75 L Hgb 7.6 L Hct 24.0 L MCV 87.3 MCH 27.6 MCHC 31.7 L RDW Std Deviation 46.6 H RDW Coeff of Diane 14.7 H Plt Count 231 MPV 9.5 Sodium 132 L Potassium 4.4 Chloride 96 L Carbon Dioxide 27 Anion Gap 9 BUN 51 H Creatinine 1.81 H Est Cr Clr Drug Dosing 55.9 Est GFR ( Amer) 47.4 Est GFR (Non-Af Amer) 40.9 BUN/Creatinine Ratio 28.2 H Glucose 216 H POC Glucose Calcium 8.2 L Random Vancomycin 22.0 H 04/06/23 04/06/23 20:14 16:22 WBC RBC Hgb Hct MCV MCH MCHC RDW Std Deviation RDW Coeff of Diane Plt Count MPV Sodium Potassium Chloride Carbon Dioxide Anion Gap BUN Creatinine Est Cr Clr Drug Dosing Est GFR ( Amer) Est GFR (Non-Af Amer) BUN/Creatinine Ratio Glucose POC Glucose 132 H 121 H Calcium Random Vancomycin
--- NOTE | 2023-04-07 10:23 | Anesthesiology Consultation ---
Date of Service April 07, 2023 Assessment & Plan Chart Review Chart Review: entry analyst initiated History Surgery Operation Date: 04/04/23 07:00 Proposed Procedures p Right Foot Incision and Drainage - Kenny Card DPM, MS s with Calcanectomy - Kenny Card DPM, MS Operation Date: 04/07/23 11:25 Proposed Procedures p Right Heel Incision and Drainage - Kenny Card DPM, MS Height/Weight Height: 5 ft 6 in Weight: 122 kg Allergies Allergy/AdvReac Type Severity Reaction Status Date / Time hydralazine Allergy Mild Rash Verified 07/11/22 13:18 Calcium Channel Blocking Allergy Rash, Verified 07/11/22 13:18 Agent Dilt swelling semaglutide [From Ozempic] Allergy Abdominal Verified 07/11/22 13:18 Pain amitriptyline AdvReac Mild Muscle Verified 07/11/22 13:18 twitching Medications Home Medications Medication Instructions Recorded Confirmed Last Taken atorvastatin 80 mg tablet 80 mg PO QPM 08/02/18 07/11/22 02/06/22 22:30 magnesium oxide 400 mg PO 08/02/18 07/11/22 02/06/22 22:30 metoprolol succinate 50 mg 150 mg PO QPM 08/02/18 07/11/22 02/06/22 22:30 tablet,extended release 24 hr omeprazole 20 mg capsule,delayed 20 mg PO QPM #0 caps 08/14/19 07/11/22 02/06/22 22:30 release cholecalciferol (vitamin D3) 25 2,000 units PO QPM 11/19/19 07/11/22 02/06/22 09:00 mcg (1,000 unit) chewable tablet (Vitamin D3) gabapentin 600 mg tablet 600 mg PO TID 12/06/19 07/11/22 02/06/22 22:30 polyethylene glycol 3350 17 17 gm PO BID PRN constipation #510 12/23/19 07/11/22 08/07/21 gram/dose oral powder grams fluticasone propionate 50 1 spray intranasal BID 05/05/20 07/11/22 02/06/22 22:30 mcg/actuation nasal spray,suspension (Flonase Allergy Relief) doxazosin 4 mg tablet 4 mg PO 10/01/20 07/11/22 02/06/22 22:30 melatonin 10 mg capsule 10 mg PO HS 05/17/21 07/11/22 02/06/22 22:30 magnesium hydroxide 400 mg/5 mL 15 ml PO DAILY PRN Constipation 07/28/21 07/11/22 08/01/21 08:00 oral suspension (Milk of Magnesia) acetaminophen 500 mg tablet 1,000 mg PO TID PRN Pain 08/08/21 07/11/22 02/06/22 22:30 (Tylenol Extra Strength) ascorbic acid (vitamin C) 500 mg 500 mg PO BID 08/08/21 07/11/22 02/06/22 21:30 tablet [id number]-[id number] 1 tab PO QAM 08/08/21 07/11/22 02/06/22 09:00 tablet (Multivitamin 50 Plus tablet) cyanocobalamin (vitamin B-12) 1,000 mcg PO HS 08/11/21 07/11/22 02/06/22 22:30 1,000 mcg tablet hydroxyzine HCl 25 mg tablet 25 mg PO Q6 PRN Itching 08/11/21 07/11/22 02/06/22 22:30 mupirocin 2 % topical ointment 1 applic topical TID PRN flare ups 08/12/21 07/11/22 Unknown aspirin 81 mg capsule 81 mg PO Q12 09/21/21 07/11/22 02/06/22 09:00 metolazone 5 mg tablet 5 mg PO BID #180 tabs 10/28/21 07/11/22 02/06/22 22:30 insulin glargine 100 unit/mL (3 50 unit subcut HS 12/20/21 07/11/22 05/09/22 mL) subcutaneous pen (Lantus Solostar U-100 Insulin) prednisone 5 mg tablet 5 mg PO DAILY 12/20/21 07/11/22 02/06/22 09:00 ferrous sulfate 325 mg (65 mg 325 mg PO Q OTHER DAY 02/04/22 07/11/22 05/08/22 iron) tablet allopurinol 300 mg tablet 750 mg PO DAILY 04/14/22 07/11/22 Unknown bumetanide 2 mg tablet 4 mg PO BID 04/14/22 07/11/22 Unknown omega [id number]-fish oil 1,000 mg 2 cap PO BID 04/14/22 07/11/22 Unknown (120 mg-180 mg) capsule (Fish Oil) insulin regular hum U-500 conc 500 See Rx Instructions .Route .COMPLEX 06/17/22 07/11/22 Unknown unit/mL subcutaneous soln (Humulin R U-500 (Concentrated) Insulin) Active Medications Generic Name Dose Route Start Last Admin Trade Name Freq PRN Reason Stop Dose Admin Acetaminophen 650 mg 04/03/23 03:49 04/03/23 14:03 Acetaminophen 325 Mg Tab PO 05/03/23 03:48 650 mg Q4H PRN Administration Pain or Fever Allopurinol 300 mg 04/04/23 09:00 04/07/23 09:58 Allopurinol 300 Mg Tab PO 05/04/23 08:59 300 mg QAM LELIA Administration Aspirin 81 mg 04/04/23 09:00 04/07/23 09:58 Aspirin 81 Mg Ectab PO 05/04/23 08:59 81 mg QAM LELIA Administration Atorvastatin Calcium 80 mg 04/03/23 21:00 04/06/23 21:48 Atorvastatin 40 Mg Tab PO 05/03/23 20:59 80 mg QPM LELIA Administration Doxazosin Mesylate 4 mg 04/04/23 21:00 04/06/23 21:48 Doxazosin Mesylate 4 Mg Tab PO 05/04/23 20:59 4 mg HS LELIA Administration Enoxaparin Sodium 40 mg 04/05/23 15:00 04/06/23 16:48 Enoxaparin Inj 40 Mg/0.4 Ml Syr SQ 05/05/23 14:59 40 mg Q24H LELIA Administration Furosemide 100 mg 04/07/23 09:00 04/07/23 09:58 Furosemide 10 Mg/Ml 10 Ml Vial IV 05/07/23 08:59 100 mg TID LELIA Administration Gabapentin 300 mg 04/03/23 14:25 04/07/23 09:57 Gabapentin 300 Mg Cap PO 05/03/23 14:24 300 mg TID LELIA Administration Lactated Ringer's 1,000 mls @ 15 mls/hr 04/04/23 17:45 04/06/23 16:40 Lr IV 05/04/23 17:44 Not Given .Q24H LELIA Insulin Aspart 0 units 04/03/23 11:30 04/07/23 08:50 Insulin Aspart Per Unit Charge SC 05/03/23 11:29 29 units ACHS LELIA Administration Protocol Insulin Glargine 30 units 04/07/23 09:00 04/07/23 08:50 Lantus Per Unit Charge SC 05/05/23 08:59 30 units DAILY LELIA Administration Protocol Melatonin 9 mg 04/03/23 21:00 04/06/23 21:58 Melatonin 3 Mg Tab PO 05/03/23 20:59 9 mg HS LELIA Administration Metoprolol Succinate 150 mg 04/03/23 21:00 04/06/23 21:47 Metoprolol Succ 50mg Ext Rel Tab PO 05/03/23 20:59 150 mg QPM LELIA Administration Pantoprazole Sodium 40 mg 04/03/23 21:00 04/06/23 21:47 Pantoprazole 40 Mg Tab PO 05/03/23 20:59 40 mg QPM LELIA Administration Polyethylene Glycol 17 gm 04/03/23 14:30 04/07/23 09:58 Polyethylene (Miralax) 17 Gm Pack PO 05/03/23 14:29 17 gm DAILY LELIA Administration Prednisone 5 mg 04/04/23 09:00 04/07/23 09:57 Prednisone 5 Mg Tab PO 05/04/23 08:59 5 mg QAM LELIA Administration Ropinirole HCl 0.25 mg 04/04/23 21:00 04/06/23 21:48 Ropinirole Hcl 0.25 Mg Tablet PO 05/04/23 20:59 0.25 mg HS LELIA Administration Sennosides 17.2 mg 04/03/23 14:30 04/07/23 09:57 Senna 8.6 Mg Tab PO 05/03/23 14:29 17.2 mg QAM LELIA Administration Sertraline HCl 150 mg 04/04/23 09:00 04/07/23 09:58 Sertraline Hcl 50 Mg Tablet PO 05/04/23 08:59 150 mg QAM LELIA Administration Sodium Hypochlorite 1 appln 04/06/23 09:00 04/06/23 16:45 Dakin's Soln 0.125% Quarter Strength 473 Ml Btl EXT 05/06/23 08:59 1 appln DAILY LELIA Administration NPO Date Last Intake of Fluids: 04/03/23 Time Last Intake of Fluids: 20:00 Last Intake of Fluids Comment: sips with meds 04/04 Date Last Intake of Solids: 04/03/23 Time Last Intake of Solids: 20:00 Past Medical History Medical History Chronic back pain Chronic diastolic congestive heart failure Chronic kidney disease Plan for possible dialysis in the future (under surveillance), will be placing fistula in near future preventatively Depression Diabetes IDDM Diastolic CHF Dyslipidemia Encounter for pre-operative examination GERD (gastroesophageal reflux disease) Hypertension Migraine Morbid obesity Osteoarthritis PAD (peripheral artery disease) Sleep apnea CPAP Temporomandibular joint disorder Occasional clicking, no locking Past Family History Family History Father Diabetes Mother Diabetes Other Coronary heart disease Hypertension No family history of adverse response to anesthesia Denies family history of Crohn's disease Kidney disease Colorectal cancer Ulcerative colitis Past Surgical History Surgical History History of Achilles tendon repair Right Achilles repair (07/16/21): Grade 2 view, MAC#3, ETT 7.5 + PNB at [facility] History of incision and drainage Left foot multiple with skin graft (total of 5) Left foot I&D (10/08/20): LMA#5 at [facility] Left foot I&D, Stimulan beads (02/12/21): MAC at [facility] History of open reduction and internal fixation (ORIF) procedure Left ankle Bimalleolar Fracture (11/2019) History of placement of ear tubes Right ear History of tonsillectomy and adenoidectomy Hx of cataract surgery R/L Hx of colonoscopy [place] teeth extracted Social History Smoking Status: Former smoker tobacco type: cigarettes Do You Dip or Chew Tobacco: No Hx Alcohol Use: No Alcohol type: beer alcohol intake frequency: holidays/special occasions only Hx Substance Use: No substance use type: does not use Physical Exam Vital Signs Last Vital Signs Temp 97.9 F 04/07/23 07:42 Pulse 56 L 04/07/23 08:33 Resp 21 04/07/23 07:42 BP 119/85 04/07/23 07:42 Pulse Ox 96 04/07/23 07:42 O2 Del Method Room Air 04/07/23 07:42 O2 Flow Rate 1 04/04/23 22:36 Testing Laboratory Results 04/07/23 04:24 05/26/23 04:24 PT 12.5 Seconds (9.0-12.0) H 04/02/23 23:27 INR 1.2 (0.9-1.1) H 04/02/23 23:27 Hemoglobin A1c 9.8 % (4.5-5.6) H 04/02/23 23:27 Urine Color Dark Yellow 04/03/23 Unknown Urine Appearance Clear (Clear) 04/03/23 Unknown Urine pH 5.0 (4.5-7.5) 04/03/23 Unknown Ur Specific [place] 1.018 (1.000-1.030) 04/03/23 Unknown Urine Protein 1+ (Negative) H 04/03/23 Unknown Urine Glucose (UA) Negative (Negative) 04/03/23 Unknown Urine Ketones Trace (Negative) H 04/03/23 Unknown Urine Nitrite Negative (Negative) 04/03/23 Unknown Ur Leukocyte Esterase Negative (Negative) 04/03/23 Unknown Urine WBC (Auto) 1-5 /hpf (0-5) 04/03/23 Unknown Urine RBC (Auto) 0-4 /hpf (0-4) 04/03/23 Unknown U Hyaline Cast (Auto) 1-5 /lpf (0-5) 04/03/23 Unknown U Epithel Cells (Auto) 5-10 /lpf (0-5) H 04/03/23 Unknown Urine Bacteria (Auto) Negative (Negative) 04/03/23 Unknown Blood Type A Positive 04/03/23 02:35 Antibody Screen NEGATIVE 04/03/23 02:35 04/04/23 19:20 Gram Stain - Final Foot,Right Aerobic and Anaerobic Culture - Preliminary Staph aureus MRSA Escherichia coli 04/04/23 19:20 Gram Stain - Final Foot Aerobic and Anaerobic Culture - Preliminary Escherichia coli Probable Enterococcus 04/03/23 Unknown Gram Stain - Final Foot,Right Wound Culture - Final Staph aureus MRSA 04/04/23 07:56 Aerobic Blood Culture - Preliminary Blood No growth in Aerobic bottle after 48 hours. Anaerobic Blood Culture - Final 04/04/23 07:05 Aerobic Blood Culture - Preliminary Blood No growth in Aerobic bottle after 48 hours. Anaerobic Blood Culture - Final 04/03/23 02:30 Aerobic Blood Culture - Preliminary Blood No growth in Aerobic bottle after 48 hours. Anaerobic Blood Culture - Final 04/03/23 02:25 Aerobic Blood Culture - Preliminary Blood Alpha strep not S.pne/enteroco Anaerobic Blood Culture - Preliminary No growth in Anaerobic bottle after 48 hours. 04/07/23 07:14 POC Glucose 223 H Electrocardiogram Date: 04/03/23 DICTATED BY:Malik Paulino MD Test Reason : Blood Pressure : / mmHG Vent. Rate : 083 BPM Atrial Rate : 083 BPM P-R Int : 176 ms QRS Dur : 086 ms QT Int : 388 ms P-R-T Axes : 100 -44 040 degrees QTc Int : 455 ms Poor data quality, interpretation may be adversely affected Sinus rhythm with Premature atrial complexes Left axis deviation Low voltage QRS Cannot rule out Anterior infarct (cited on or before 03-APR-2023) Abnormal ECG When compared with ECG of 10-MAY-2022 18:37, Premature atrial complexes are now Present Confirmed by Malik Paulino ([id number]) on 04/03/2023 11:54:26 AM Chest X-Ray Date: 04/02/23 XR chest 1V portable CLINICAL HISTORY: Chest pain, nonspecific COMPARISON STUDY: Chest radiograph May 10, 2022. FINDINGS: There is no pneumothorax or pleural effusion. Cardiomegaly is unchanged. There is pulmonary vascular congestion. No consolidation is identified to suggest pneumonia. IMPRESSION: Cardiomegaly with pulmonary vascular congestion. Echocardiogram Date: 04/03/23 LV systolic function is normal No RWMA Borderline LVH EF 60-65% Mild TR No change when compared to 05/11/22
[2023-04-07] MEDS: ceFAZolin 2000MG 2,000 MG/15 ML SYR IV SCH ×2 (10:41→20:40)
--- NOTE | 2023-04-07 10:46 | Pharmacy Report ---
Pharmacy Glycemic Short Note 2 - Date of Service April 07, 2023 - Glycemic Short BSG Results (Last 24 hours): 04/06/23 04/06/23 04/06/23 11:27 16:22 20:14 Glucose POC Glucose 135 H 121 H 132 H 04/07/23 04/07/23 04:24 07:14 Glucose 216 H POC Glucose 223 H OUTPATIENT ANTIDIABETIC REGIMEN: * Lantus 50 units SC HS * Humulin-R U-500: 85 units SC breakfast, 75 units SC lunch, 60 units SC dinner * HbA1c: 9.8% (04/02/23) ASSESSMENT: 04/07: * Received 152 units of insulin yesterday, 100 units basal + 52 units bolus. BSGs were: 153-642-123-132 mg/dL. Improved. * Remains on vancomycin but meropenem was de-escalated to cefazolin today based on culture results. Kidney function worsening. Going back to the OR today for another I&D of heel. * Fasting BSG again elevated at 223 mg/dL. Did have an uncovered HS snack last night. CDE also stated that patient "nibbles thru day". * Will revert to previous admission basal dosing which was approximately the same total daily dose but with the larger basal dose at HS. This regimen controlled his fasting BSGs. * No change to Novolog today. 04/06: * Inder received 170 units of insulin yesterday, 100 basal + 70 bolus. BSGs were: 122-284-42-156 mg/dL. * Remains on Vancomycin and Meropenem for foot infection. I&D performed 04/04/23. May need another. Remains on Pred 5 mg PO daily from home. * Feel that periop dexamethasone played a role in elevated AM blood sugars yesterday which led to large bolus doses that may have stacked and cause dinner BSG of 71 mg/dL. Will loosen carb ratio slightly today. * Fasting BSG improved to 214 mg/dL this AM but still uncontrolled. * Continue AM basal but increase PM basal scale. 04/05: * Patient received 102 units of insulin yesterday, 90 basal + 12 bolus. BSGs were: 421-951-891-223 mg/dL. * Did go to the OR yesterday afternoon for an I&D of foot. * Fasting BSG elevated at 298 mg/dL this AM. This is likely related to inadequate insulin dosing as well as perioperative dexamethasone use. * Tightened Novolog this afternoon. Will also increase HS basal dose today. * Continues on Pred 5 mg PO daily. 04/04: * Inder received 144 units of insulin yesterday, 80 basal + 64 bolus. BSGs were: 371-701-649-91 mg/dL. * Given trend down in postprandials, had 2nd shift pharmacist change dinner carb ratio to 4 but RN still administered insulin based on CR of 3. * Loosened Novolog parameters this AM to account for this. Lunchtime did trend down but not as significantly as yesterday. * Fasting BSG improved to 202 mg/dL this AM but still uncontrolled. Patient is NPO today for an I&D of right foot. Will continue with same basal dosing despite NPO status given elevated fasting. * Restarted on home dose of Prednisone 5 mg PO daily. 04/03: * 57 yo M admitted on 04/03/23 secondary to osteomyelitis of right foot secondary to a diabetic foot infection. Pharmacy has been consulted to assist with inpatient glycemic management. Patient is a poorly controlled Type 2 diabetic as an outpatient. Please refer to outpatient regimen and most recent HbA1c above. History of non-compliance with this patient. * Ordered and tolerating diet. Stressors currently include infection requiring Vancomycin and Meropenem. Still awaiting surgical eval. * Will utilize previous admission data to design initial inpatient insulin regimen. * 50 units basal ordered BID by overnight pharmacist. Will scale PM dose in case patient is made NPO for surgery tomorrow. * Novolog ACHS per previous admission data. PLAN FOR INPATIENT GLYCEMIC CONTROL: * Hold outpatient U-500 for now * Basal insulin * Lantus 30 units SC AM * Lantus 80 units SC PM * Bolus insulin * NovoLog per scale ACHS or Q6hrs while NPO * Goal Range: Low 110 mg/dL - High 140 mg/dL * Correction Factor: 10 mg/dL/unit * Nutritional / Prandial insulin per carb ratio of 1 unit per 4 grams CHO consumed
[2023-04-07] MEDS: DAKIN'S SOLN 0.125% QUARTER STRENGTH 473 ML BTL EXT SCH (12:41)
--- NOTE | 2023-04-07 13:20 | Pharmacy Report ---
Pharmacy PK ABX Note - Date of Service April 07, 2023 - Assessment and Plan Assessment 57 year old M receiving Vancomycin and Cefazolin for treatment of osteomyelitis. * Day #5 of antimicrobial therapy. * Afebrile for over 48 hours now. Leukocytosis continues to resolve (17.6k-->14. 2k-->12.2k-->10.1k today). * Renal fxn continues to worsen (1.17-->1.32-->1.62-->1.81 today). Urine output is hovering around 0.5 cc/kg/hr over the last 36 hours but unsure if completely accurate. * OR cultures are final now and grew: MRSA, E. faecalis (amp/vanc sensitive), and E. coli (pansensitive). Meropenem was discontinued today in favor of Cefazolin. Recommended that primary team reach out to infectious disease today regarding selection, route and duration of antibiotics. Appears patient prefers salvage therapy with abx rather than amputation per notes. * Plan is for patient to return to OR today for another I & D. Plan Vancomycin * Current regimen: 1250 mg IV every 24 hours * Random level obtained 04/07/23 resulted as 22.0 mcg/mL. This is supratherapeutic. * Decision was made to order another random vanc level around noon today to see how fast patient is clearing vancomycin. This level resulted at 1152 as 18.8 mcg/mL. * Correlates to a Luther of 0.44 hr-1 which means patient's level would be near 15.0 mcg/mL around 2000 this evening. AUC calculation software correlates almost identically with this time as well. Therefore, will plan for next vancomycin dose to be given at 2000 this evening. Concerned that waiting until tomorrow morning for next vanc dose may be too long given severity of MRSA infection. * Change to 750 mg IV every 24 hours. Predicted AUC at steady state: 429 mg/L.hr * Repeat random level ordered for 04/08/23 in the event that patient's kidney fxn continues to worsen. Pharmacy will continue to follow and will adjust dose/frequency as necessary. Thank you. Pharmacy has transitioned to AUC monitoring for vancomycin. AUC/CLAUDIA is the preferred PK/PD target and is associated with decreased risk of nephrotoxicity compared to traditional trough targets.
[2023-04-07] MEDS: ENOXAPARIN INJ 40 MG/0.4 ML SYR SQ SCH (15:38)
--- NOTE | 2023-04-07 15:56 | Billing Data ---
Date of Service April 07, 2023 Coding Level of Care Code 53803 SUB INP/OBS CARE
[2023-04-07] MEDS ORDERED: MIDAZOLAM HCL 1 MG/ML 2ML VIAL ONE (16:27)
[2023-04-07] MEDS ORDERED: fentaNYL citrate PF 100 MCG/2 ML VIAL ONE (16:27)
--- NOTE | 2023-04-07 16:27 | History & Physical Bridge Note ---
Date of Service April 07, 2023 History & Physical Bridge Note I have examined the patient, reviewed the History & Physical and in the interval since the performance of the History & Physical I have noted the following changes of clinical significance: no changes noted
[2023-04-07] MEDS ORDERED: PROPOFOL IV EMULSION 10 MG/ML 20 ML VIAL IV ONE (16:28)
[2023-04-07] MEDS ORDERED: DEXAMETHASONE SOD INJ 4 MG/ML VIAL ONE (16:28)
[2023-04-07] MEDS ORDERED: LIDOCAINE 2% 2 ML VIAL/AMP(20MG/ML) INFIL ONE (16:28)
[2023-04-07] MEDS ORDERED: ROCURONIUM BROMIDE 10 MG/ML 5 ML VIAL IV ONE (16:28)
[2023-04-07] MEDS ORDERED: ONDANSETRON INJ 2 MG/ML 2 ML VIAL ONE (16:28)
[2023-04-07] MEDS ORDERED: ONDANSETRON INJ 2 MG/ML 2 ML VIAL IV PRN (16:30)
[2023-04-07] MEDS ORDERED: ATROPINE SULFATE 0.1 MG/ML 10ML SYR IV PRN (16:30)
[2023-04-07] MEDS ORDERED: ePHEDrine sulfate 50 MG/ML AMP IV PRN (16:30)
[2023-04-07] MEDS ORDERED: fentaNYL citrate PF 100 MCG/2 ML VIAL IV PRN (16:30)
[2023-04-07] MEDS ORDERED: GLYCOPYRROLATE 0.2 MG/ML VIAL ONE (17:03)
[2023-04-07] MEDS ORDERED: diphenhydrAMINE 50 MG/ML VIAL ONE (17:03)
[2023-04-07] MEDS ORDERED: THROMBIN FOR SOLN 20000 UNIT KIT ONE (17:20)
[2023-04-07] MEDS ORDERED: GELATIN SPONGE SZ 100 ONE (17:20)
[2023-04-07] MEDS ORDERED: SUGAMMADEX SODIUM 200 MG/2 ML VIAL IV ONE (17:25)
--- NOTE | 2023-04-07 17:52 | Post Operative Brief Note ---
Immediate Post Op Note v1 Date of Surgery April 07, 2023 Pre & Post Diagnosis Operation Date: 04/07/23 11:25 Pre-Op Diagnosis: DIABETIC FOOT,CHF,ANEMIA,POSSIBLE OSTEOMYELITIS Post-Op Diagnosis: DIABETIC FOOT,CHF,ANEMIA,POSSIBLE OSTEOMYELITIS I identified the patient and participated in the time-out.: Yes Procedure Operation Date: 04/07/23 11:25 Actual Procedures p Right Heel Incision and Drainage(Right) - Kenny Card DPM, MS Surgeon Kenny Card DPM, MS Wool Carder none Estimated Blood Loss 20 Findings Consistent with Post-Op Diagnosis non viable tissue as described
--- NOTE | 2023-04-07 18:38 | Anesthesiology Progress Note ---
Date of Service April 07, 2023 Anesthesia Post Procedure Vital Signs Vital Signs: Temp Pulse Pulse Pulse Resp BP Pulse Ox 04/07/23 18:10 71 18 162/61 H 100 04/07/23 18:20 37.0 C 77 14 145/69 H 99 04/07/23 18:00 79 12 163/68 H 100 04/07/23 17:54 36.6 C 79 16 156/71 H 100 04/07/23 16:14 36.6 C 65 18 125/54 L 93 04/07/23 15:48 64 16 130/61 95 04/07/23 15:19 62 04/07/23 11:45 37.0 C 70 18 148/45 H 95 04/07/23 08:33 56 L 04/07/23 07:42 36.6 C 59 L 21 119/85 96 04/06/23 22:45 04/06/23 22:00 63 04/07/23 03:00 36.5 C 63 20 128/72 95 04/06/23 23:00 36.6 C 62 20 130/69 96 04/06/23 19:00 37 C 63 16 126/60 91 O2 Del Method O2 Flow Rate 04/07/23 18:10 Oxymask 2 04/07/23 18:20 Room Air 04/07/23 18:00 Oxymask 4 04/07/23 17:54 Oxymask 6 04/07/23 16:14 Room Air 04/07/23 15:48 Room Air 04/07/23 15:19 04/07/23 11:45 Nasal CPAP 04/07/23 08:33 04/07/23 07:42 Room Air 04/06/23 22:45 Room Air, CPAP 04/06/23 22:00 04/07/23 03:00 CPAP 04/06/23 23:00 Room Air 04/06/23 19:00 CPAP Pain Intensity Bilateral Knee: Pain Intensity: 0 Transfer of Care Handoff Completed per policy Notes Mental Status: alert / awake / arousable and participated in evaluation Patient Amnestic to Procedure: Yes Nausea / Vomiting: adequately controlled Pain: adequately controlled Airway Patency, RR, SpO2: stable & adequate BP & HR: stable & adequate Hydration State: stable & adequate Anesthetic Complications: no major complications apparent
[2023-04-07] MEDS: LACTATED RINGER'S 1,000 ML IV SCH (19:02)
[2023-04-07] MEDS ORDERED: VANCOMYCIN HCL 750 MG in SODIUM CHLORIDE 0.9% 250 ML IV SCH (20:00)
[2023-04-07] MEDS: PANTOprazole 40 MG TAB PO SCH (20:47)
[2023-04-07] MEDS: DOXAZosin MESYLATE 4 MG TAB PO SCH (20:47)
[2023-04-07] MEDS: rOPINIRole HCL 0.25 MG TABLET PO SCH (20:47)
[2023-04-07] MEDS: METOPROLOL SUCC 50MG EXT REL TAB PO SCH (20:47)
[2023-04-07] MEDS: ATORVASTATIN 40 MG TAB PO SCH (20:47)
[2023-04-07] MEDS: MELATONIN 3 MG TAB PO SCH (20:53)
[2023-04-07] MEDS ORDERED: LANTUS PER UNIT CHARGE SC SCH (21:00)
[2023-04-08] MEDS: ceFAZolin 2000MG 2,000 MG/15 ML SYR IV SCH ×3 (03:28→22:15)
[2023-04-08 05:26] LABS: Hematocrit (blood only) 21.6 % (42.0-52.0); Hemoglobin 6.8 g/dl (14.0-18.0); Mean Corpuscular Hemoglobin 27.8 pg (25.0-34.0); Mean Corpuscular Hgb Conc 31.5 g/dL (32.0-36.0); Mean Corpuscular Volume 88.2 fL (80.0-100.0); Mean Platelet Volume 9.7 fL (9.4-12.4); Nucleated RBC # (auto) 0.02 K/uL (0-0.12); Nucleated RBC % (auto) 0.2 %; Platelet Count 238 K/uL (130-400); RDW Coefficient of Variation 14.8 % (11.5-14.5); RDW Standard Deviation 46.9 fL (36.4-46.3); Red Blood Count 2.45 M/uL (4.70-6.10); White Blood Count 12.57 K/ul (4.8-10.8)
[2023-04-08 05:27] LABS: Basophils # (auto) 0.06 K/uL (0-0.2); Basophils % (auto) 0.5 %; Eosinophils # (auto) 0.57 K/uL (0-0.50); Eosinophils % (auto) 4.5 %; Immature Granulocytes # (auto) 0.53 K/uL (0.01-0.20); Immature Granulocytes % (auto) 4.2 %; Lymphocytes # (auto) 2.16 K/uL (1.2-3.4); Lymphocytes % (auto) 17.2 %; Monocytes # (auto) 0.78 K/uL (0.11-0.59); Monocytes % (auto) 6.2 %; Neutrophils # (auto) 8.47 K/uL (1.40-6.50); Neutrophils % (auto) 67.4 %; Polychromasia 1+
[2023-04-08 05:28] LABS: Calcium 8.3 mg/dl (8.6-10.3); Potassium 3.9 mmol/L (3.5-5.1)
[2023-04-08 05:34] LABS: BUN Creatinine Ratio 36.9 (10-20); C Reactive Protein 4.35 mg/dl (0-0.5); Creatinine Clr Calc Pharmacy 68.2 ml/min; Est GFR (African American) 59.9 ml/min; Est GFR (Non-African American) 51.7 ml/min
--- NOTE | 2023-04-08 06:50 | Hospitalist Progress Note ---
Date of Service April 08, 2023 Assessment & Plan (1) Diabetic ulcer of right heel: Plan: 57-year-old male with PMH of CKD stage IV, DM, diastolic heart failure, hyperlipidemia, hypertension, WHIT, PAD, gout, restless legs who presented due to bilateral lower extremity swelling and ulcer right heel. Found to have likely osteomyelitis in right heel, s/p I&D/debridement x2. #osteomyelitis right foot #diabetic ulcer right heel -s/p debridement, I&D, partial excision calcaneus and delayed primary closure of R foot on 04/04/23. -F/u Xray from 04/05: inferior/posterior aspects of calcaneus resected, diffuse soft tissue swelling -Based on cultures: meropenem narrowed to cefazolin. Continue vancomycin. WBC trending down. -subsequent debridement on evening of 04/07 -Blood cultures: no change. No new focal joint pain. -CRP on 04/08 down to 4.35 from 15.98 on 04/02 #anemia -multifactorial etiology given CKD and recent debridement -S/p multiple RBC transfusions. Hemodynamically stable -Hgb at 6.8 today -- will transfuse an additional unit -H&H after transfusion -Per Nephro attempt to maintain Hgb 8.0 or above -Unlikely to respond to NAIN therapy due to inflammation #diastolic heart failure #lymphedema -echo stable from April 2022, EF 60-65% -On furosemide 100mg IV TID per nephrology -Holding metolazone due to hyponatremia -monitor I/Os #diabetes mellitus -HgbA1C 9.8% -discussed importance of glycemic control in wound healing, heart disease, cerebrovascular disease #CKD stage 4 -most recent Cr 1.81, baseline is ~2, will continue to monitor -nephrology recommendations appreciated #hyponatremia -Na 125 on admission (asymptomatic), suspect a diuretic-related component, will monitor -Likely chronic per Nephro -Continue to monitor #HLD -atorvastatin 80mg daily #HTN -stable -home dose metoprolol w/ parameters -continue diuresis #WHIT -continue at home CPAP #PAD -Diffuse atherosclerotic disease on arterial Doppler of the right lower extremity, continue home aspirin and atorvastatin,consider vascular surgery consultation #gout -allopurinol, prednisone #constipation -Miralax, Senna #restless legs -given extra dose of pramipexole 0.25 -continue nightly #depression -sertraline FENGI: heart healthy, carb conscious DVT ppx: Lovenox 40mg SQ daily Dispo: PCU status, DC planning once ulcer/osteo controlled and antibiotic plan solidified CODE STATUS: Full Admission and Anticipated Discharge Date Admission Date: April 03, 2023 Supervising Physician Co-Signing Physician Notes I personally examined the patient and verified all lester points of history and exam, discussed case, and agree with decision making with Dr Mosquera Sleeping againallowed to rest. vitals noted nad breathing unlabored no accessory muscles good effort on CPAP Diabetic foot ulcer with abscess and subsequent osteomyelitis, sepsis on admission (tachycardia and leukocytosis)continue meropenem and vancomycin. follow cultures - showing MRSA and GNR. with blood culture being 1/2, and follow up no growth to date, echo reassuring - suspect contaminant. Vancomycin for MRSA, and cefazolin for the remainder of his coverageappears to be improving from antibiotics/sepsis/antimicrobial standpoint, surgery assistance in debridement/removal of infected and tissue greatly appreciated. Uncontrolled diabeteseducation as he will allow, seems precontemplative in discussion with team Otherwise as above Subjective No acute complaints. S/p 2nd I&D without much complication. Did have Hgb <7 this AM but he is asymptomatic and hemodynamically stable. Pain well controlled. Denies JEFFERY, dizziness, n/v, CP, palp, SOB, abd pain. Review of Systems Review of Systems: per subjectve Physical Exam Physical Exam: NAD, laying in bed comfortably Respiratory: no conversational dyspnea, on room air, CTA BL, no rales/rhonchi/wheeze Cardiovascular: RRR, no M/R/G Musculoskeletal: no bony tenderness to palpation of the spinous processes Skin: wound care at midline sacral area, dry without surrounding erythema/discharge Lymphatic: significant BL LE edema stable from prior exam; R foot wound care shows calcaneus wrapped in gauze with serosanguineous discharge Results & Data Results & Data Vital Signs (Past 12 Hours) Vital Signs Temp Pulse Pulse Resp BP Pulse Ox O2 Del Method 04/07/23 21:59 65 04/07/23 21:45 Room Air, CPAP 04/08/23 02:59 37.0 C 60 18 112/51 L 94 Room Air 04/07/23 22:47 36.9 C 60 22 121/62 96 CPAP O2 Flow Rate 05/26/23 21:59 04/07/23 21:45 04/08/23 02:59 04/07/23 22:47 5 Resident Activity Tracking Resident Involvement: Resident Care Provided Care Provided: Adult Hospital Medicine
[2023-04-08] MEDS ORDERED: SODIUM CHLORIDE 0.9% 250 ML IV PRN (06:51)
[2023-04-08] MEDS: POLYETHYLENE (MIRALAX) 17 GM PACK PO SCH (08:00)
[2023-04-08] MEDS: INSULIN ASPART PER UNIT CHARGE SC SCH ×4 (08:00→22:12)
[2023-04-08] MEDS: FUROSEMIDE 10 MG/ML 10 ML VIAL IV SCH ×3 (08:00→22:04)
[2023-04-08] MEDS: LANTUS PER UNIT CHARGE SC SCH ×2 (08:01→22:12)
[2023-04-08] MEDS: GABAPENTIN 300 MG CAP PO SCH ×3 (08:01→22:01)
[2023-04-08] MEDS: SERTRALINE HCL 50 MG TABLET PO SCH (08:02)
[2023-04-08] MEDS: allopurinoL 300 MG TAB PO SCH (08:02)
[2023-04-08] MEDS: ASPIRIN 81 MG ECTAB PO SCH (08:02)
[2023-04-08] MEDS: predniSONE 5 MG TAB PO SCH (08:02)
[2023-04-08] MEDS: SENNA 8.6 MG TAB PO SCH (08:02)
--- NOTE | 2023-04-08 11:59 | Pharmacy Report ---
Pharmacy PK ABX Note - Date of Service April 08, 2023 - Assessment and Plan Assessment 57 year old M receiving Vancomycin and Cefazolin for treatment of osteomyelitis. * Day #6 of antimicrobial therapy. * Renal fxn was worsening x4 days (1.17-->1.32-->1.62-->1.81 yesterday), but SCr downtrending today to 1.49 * OR cultures are final now and grew: MRSA, E. faecalis (amp/vanc sensitive), and E. coli (pansensitive). Meropenem was discontinued today in favor of Cefazolin. Prior pharmacist recommended that primary team reach out to infectious disease regarding selection, route and duration of antibiotics. Appears patient prefers salvage therapy with abx rather than amputation per notes. * Patient returned to OR 04/07 for I&D Vancomycin * Current regimen: 750 mg IV q24h * Random ~8 hour level obtained 04/08/23 AM resulted as 20.4 mcg/mL - likely subtherapeutic AUC given improvement in renal function * Renal function acutely changing - will dose via level for now Plan * Vancomycin 1000 mg IV x1 today @1400 * Random level with AM labs tomorrow Pharmacy will continue to follow and will adjust dose/frequency as necessary. Thank you. Pharmacy has transitioned to AUC monitoring for vancomycin. AUC/CLAUDIA is the preferred PK/PD target and is associated with decreased risk of nephrotoxicity compared to traditional trough targets.
--- NOTE | 2023-04-08 12:00 | Nephrology Progress Note ---
Date of Service April 08, 2023 Assessment & Plan (1) CKD (chronic kidney disease): Plan: * Kidney function remains stable at this time. Electrolyte balance is acceptable * CKD stage G3b/A2 (moderate impairment). Baseline Cr has been 2.0 w/ EGFR 36 cc/min. Urine sediment has been acellular. UPCR 0.2. Renal US 08/31 revealed 11 cm kidneys, no obstruction/stone/mass. Kidney function has fluctuated w/ volume status. Renal impairment is due to DKD, diastolic heart failure (2) Hyponatremia: Plan: * Mild hyponatremia, likely chronic, asymptomatic. Serum sodium has improved to 135 mmol/L * Thiazide diuretic therapy discontinued. Diuresing with furosemide * Volume status is difficult to assess due to chronic lymphedema, I/O fairly matched but subjectively edema improving * Will continue Furosemide 100 mg IV TID * Monitor PRP (3) Anemia: Plan: * Hgb 6.8 this AM * 1 u PRBC transfusion today, 4th for admission * Recommend transfusion to maintain Hgb 8.0 or above (4) Lymphedema: Plan: * Continue Lasix 100 mg IV TID and monitor volume status, UO, kidney function and electrolyte balance * Hold Metolazone due to hyponatremia * Recommend low Na diet (5) Diabetic ulcer of right heel: Plan: * Remains on Vancomycin, cefazolin * 04/04/23 R foot I&D, debridement and partial calcanectomy by Dr. Card * 04/07/23 R heel I&D Admission and Anticipated Discharge Date Admission Date: April 03, 2023 Subjective Sleeping comfortably on BIPAP this AM. No acute events overnight. Denies pain. PRBC transfusion infusing. No fevers or chils. No acute complaints. Review of Systems Review of Systems: All systems reviewed & are unremarkable except as noted in HPI & below Physical Exam Constitutional: well developed; no acute distress Eyes: + anicteric sclerae; no scleral abnormality Neck: normal visual inspection and trachea midline Respiratory: normal respiratory effort, lungs clear to auscultation Cardiovascular: Rate/Rhythm: regular rate and regular rhythm Extremities: + edema (2+ LE lymphedema, R foot is wrapped) Gastrointestinal (Abdomen): normal bowel sounds, soft, nontender, no hepatosplenomegaly Skin: + turgor decreased; no jaundice Neurologic: Speech / Cognition: normal speech and normal cognition Results & Data Vital Signs (Past 12 Hours) Vital Signs Temp Pulse Pulse Resp BP BP Pulse Ox 04/08/23 11:22 36.6 C 64 18 127/66 95 04/08/23 10:00 59 L 04/08/23 10:22 36.7 C 57 L 16 125/66 94 04/08/23 09:52 36.6 C 60 18 126/68 93 04/08/23 09:37 36.6 C 65 18 102/48 L 91 04/08/23 09:18 36.7 C 59 L 18 125/59 L 92 04/08/23 08:02 36.8 C 62 18 110/51 L 98 04/08/23 02:59 37.0 C 60 18 112/51 L 94 O2 Del Method 04/08/23 11:22 04/08/23 10:00 04/08/23 10:22 04/08/23 09:52 04/08/23 09:37 04/08/23 09:18 04/08/23 08:02 Room Air 04/08/23 02:59 Room Air Laboratory Results Laboratory Results - last 24 hr 04/07/23 04/07/23 04/07/23 11:52 16:13 17:56 WBC RBC Hgb Hct MCV MCH MCHC RDW Std Deviation RDW Coeff of Diane Plt Count MPV Immature Gran % (Auto) Neut % (Auto) Lymph % (Auto) [place] % (Auto) Eos % (Auto) Baso % (Auto) Neut # (Auto) Lymph # (Auto) [place] # (Auto) Eos # (Auto) Baso # (Auto) Immature Gran # (Auto) Absolute Nucleated RBC Nucleated RBC % (auto) Polychromasia Sodium Potassium Chloride Carbon Dioxide Anion Gap BUN Creatinine Est Cr Clr Drug Dosing Est GFR ( Amer) Est GFR (Non-Af Amer) BUN/Creatinine Ratio Glucose POC Glucose 115 H 108 H Calcium C-Reactive Protein Random Vancomycin 18.8 Blood Type Antibody Screen Crossmatch 04/07/23 04/08/23 04/08/23 20:07 04:40 04:40 WBC 12.57 H RBC 2.45 L Hgb 6.8 L* Hct 21.6 L MCV 88.2 MCH 27.8 MCHC 31.5 L RDW Std Deviation 46.9 H RDW Coeff of Diane 14.8 H Plt Count 238 MPV 9.7 Immature Gran % (Auto) 4.2 Neut % (Auto) 67.4 Lymph % (Auto) 17.2 [place] % (Auto) 6.2 Eos % (Auto) 4.5 Baso % (Auto) 0.5 Neut # (Auto) 8.47 H Lymph # (Auto) 2.16 [place] # (Auto) 0.78 H Eos # (Auto) 0.57 H Baso # (Auto) 0.06 Immature Gran # (Auto) 0.53 H Absolute Nucleated RBC 0.02 Nucleated RBC % (auto) 0.2 Polychromasia 1+ Sodium 135 L Potassium 3.9 Chloride 98 Carbon Dioxide 28 Anion Gap 9 BUN 55 H Creatinine 1.49 H D Est Cr Clr Drug Dosing 68.2 Est GFR ( Amer) 59.9 Est GFR (Non-Af Amer) 51.7 BUN/Creatinine Ratio 36.9 H Glucose 134 H POC Glucose 155 H Calcium 8.3 L C-Reactive Protein 4.35 H Random Vancomycin Blood Type Antibody Screen Crossmatch 04/08/23 04/08/23 04/08/23 04:40 07:35 07:40 WBC RBC Hgb Hct MCV MCH MCHC RDW Std Deviation RDW Coeff of Diane Plt Count MPV Immature Gran % (Auto) Neut % (Auto) Lymph % (Auto) [place] % (Auto) Eos % (Auto) Baso % (Auto) Neut # (Auto) Lymph # (Auto) [place] # (Auto) Eos # (Auto) Baso # (Auto) Immature Gran # (Auto) Absolute Nucleated RBC Nucleated RBC % (auto) Polychromasia Sodium Potassium Chloride Carbon Dioxide Anion Gap BUN Creatinine Est Cr Clr Drug Dosing Est GFR ( Amer) Est GFR (Non-Af Amer) BUN/Creatinine Ratio Glucose POC Glucose 150 H Calcium C-Reactive Protein Random Vancomycin 20.4 H Blood Type A Positive Antibody Screen NEGATIVE Crossmatch See Detail 04/08/23 11:34 WBC RBC Hgb Hct MCV MCH MCHC RDW Std Deviation RDW Coeff of Diane Plt Count MPV Immature Gran % (Auto) Neut % (Auto) Lymph % (Auto) [place] % (Auto) Eos % (Auto) Baso % (Auto) Neut # (Auto) Lymph # (Auto) [place] # (Auto) Eos # (Auto) Baso # (Auto) Immature Gran # (Auto) Absolute Nucleated RBC Nucleated RBC % (auto) Polychromasia Sodium Potassium Chloride Carbon Dioxide Anion Gap BUN Creatinine Est Cr Clr Drug Dosing Est GFR ( Amer) Est GFR (Non-Af Amer) BUN/Creatinine Ratio Glucose POC Glucose 106 H Calcium C-Reactive Protein Random Vancomycin Blood Type Antibody Screen Crossmatch PG Care Time/CCT Total # of Minutes Spent Total Time Spent with Patient: Total time spent is greater than 50% in coordination of care (as documented) at patient's floor/unit and/or counseling patient: Coding Level of Care Code 11717 SUB INP/OBS CARE 3/50MIN Diagnoses CKD (chronic kidney disease) N18.9 Hyponatremia E87.1 Anemia D64.9 Lymphedema I89.0 Diabetic ulcer of right heel E11.621; L97.419
[2023-04-08] MEDS ORDERED: VANCOMYCIN HCL 1,000 MG in SODIUM CHLORIDE 0.9% 250 ML IV ONE (14:00)
[2023-04-08] MEDS: DAKIN'S SOLN 0.125% QUARTER STRENGTH 473 ML BTL EXT SCH (14:10)
--- NOTE | 2023-04-08 15:15 | Pharmacy Report ---
Pharmacy Glycemic Short Note 2 - Date of Service April 08, 2023 - Glycemic Short BSG Results (Last 24 hours): 04/07/23 04/07/23 04/07/23 16:13 17:56 20:07 Glucose POC Glucose 115 H 108 H 155 H 04/08/23 04/08/23 04/08/23 04:40 07:35 11:34 Glucose 134 H POC Glucose 150 H 106 H 04/08/23 04/08/23 14:34 14:54 Glucose POC Glucose 53 L* 77 OUTPATIENT ANTIDIABETIC REGIMEN: * Lantus 50 units SC HS * Humulin-R U-500: 85 units SC breakfast, 75 units SC lunch, 60 units SC dinner * HbA1c: 9.8% (04/02/23) ASSESSMENT: 04/08: * Received total of 156 units of insulin yesterday, of which 110 units were basal * Fasting BSG much improved, may scale back slightly * Afternoon BSG trending down, will loosen CF/CR 04/07: * Received 152 units of insulin yesterday, 100 units basal + 52 units bolus. BSGs were: 392-780-607-132 mg/dL. Improved. * Remains on vancomycin but meropenem was de-escalated to cefazolin today based on culture results. Kidney function worsening. Going back to the OR today for another I&D of heel. * Fasting BSG again elevated at 223 mg/dL. Did have an uncovered HS snack last night. CDE also stated that patient "nibbles thru day". * Will revert to previous admission basal dosing which was approximately the same total daily dose but with the larger basal dose at HS. This regimen controlled his fasting BSGs. * No change to Novolog today. 04/06: * Inder received 170 units of insulin yesterday, 100 basal + 70 bolus. BSGs were: 127-038-04-156 mg/dL. * Remains on Vancomycin and Meropenem for foot infection. I&D performed 04/04/23. May need another. Remains on Pred 5 mg PO daily from home. * Feel that periop dexamethasone played a role in elevated AM blood sugars yesterday which led to large bolus doses that may have stacked and cause dinner BSG of 71 mg/dL. Will loosen carb ratio slightly today. * Fasting BSG improved to 214 mg/dL this AM but still uncontrolled. * Continue AM basal but increase PM basal scale. 04/05: * Patient received 102 units of insulin yesterday, 90 basal + 12 bolus. BSGs were: 781-176-863-223 mg/dL. * Did go to the OR yesterday afternoon for an I&D of foot. * Fasting BSG elevated at 298 mg/dL this AM. This is likely related to inadeq uate insulin dosing as well as perioperative dexamethasone use. * Tightened Novolog this afternoon. Will also increase HS basal dose today. * Continues on Pred 5 mg PO daily. 04/04: * Inder received 144 units of insulin yesterday, 80 basal + 64 bolus. BSGs were: 997-977-385-91 mg/dL. * Given trend down in postprandials, had 2nd shift pharmacist change dinner carb ratio to 4 but RN still administered insulin based on CR of 3. * Loosened Novolog parameters this AM to account for this. Lunchtime did trend down but not as significantly as yesterday. * Fasting BSG improved to 202 mg/dL this AM but still uncontrolled. Patient is NPO today for an I&D of right foot. Will continue with same basal dosing despite NPO status given elevated fasting. * Restarted on home dose of Prednisone 5 mg PO daily. 04/03: * 57 yo M admitted on 04/03/23 secondary to osteomyelitis of right foot secondary to a diabetic foot infection. Pharmacy has been consulted to assist with inpatient glycemic management. Patient is a poorly controlled Type 2 diabetic as an outpatient. Please refer to outpatient regimen and most recent HbA1c above. History of non-compliance with this patient. * Ordered and tolerating diet. Stressors currently include infection requiring Vancomycin and Meropenem. Still awaiting surgical eval. * Will utilize previous admission data to design initial inpatient insulin regimen. * 50 units basal ordered BID by overnight pharmacist. Will scale PM dose in case patient is made NPO for surgery tomorrow. * Novolog ACHS per previous admission data. PLAN FOR INPATIENT GLYCEMIC CONTROL: * Hold outpatient U-500 for now * Basal insulin * Lantus 30 units SC AM * Lantus 60 units SC PM * Bolus insulin * NovoLog per scale ACHS or Q6hrs while NPO * Goal Range: Low 110 mg/dL - High 140 mg/dL * Correction Factor: 15 mg/dL/unit * Nutritional / Prandial insulin per carb ratio of 1 unit per 45 grams CHO consumed
[2023-04-08 15:33] LABS: Hematocrit (blood only) 24.6 % (42.0-52.0)
--- NOTE | 2023-04-08 15:37 | Billing Data ---
Date of Service April 08, 2023 Coding Level of Care Code 65263 SUB INP/OBS CARE
[2023-04-08] MEDS: LACTATED RINGER'S 1,000 ML IV SCH (17:10)
[2023-04-08] MEDS: ENOXAPARIN INJ 40 MG/0.4 ML SYR SQ SCH (17:10)
[2023-04-08] MEDS: PANTOprazole 40 MG TAB PO SCH (22:01)
[2023-04-08] MEDS: rOPINIRole HCL 0.25 MG TABLET PO SCH (22:01)
[2023-04-08] MEDS: DOXAZosin MESYLATE 4 MG TAB PO SCH (22:02)
[2023-04-08] MEDS: ATORVASTATIN 40 MG TAB PO SCH (22:03)
[2023-04-08] MEDS: METOPROLOL SUCC 50MG EXT REL TAB PO SCH (22:06)
[2023-04-08] MEDS: MELATONIN 3 MG TAB PO SCH (22:14)
--- NOTE | 2023-04-08 22:42 | Operative Report ---
Post Operative Report Pre & Post Diagnosis Operation Date: 04/07/23 11:25 Pre-Op Diagnosis: DIABETIC FOOT,CHF,ANEMIA,POSSIBLE OSTEOMYELITIS Post-Op Diagnosis: DIABETIC FOOT,CHF,ANEMIA,POSSIBLE OSTEOMYELITIS I identified the patient and participated in the time-out.: Yes Procedure Operation Date: 04/07/23 11:25 Actual Procedures p Right Heel Incision and Drainage(Right) - Kenny Card DPM, MS Surgeon Kenny Card DPM, MS Rda none Estimated Blood Loss 20 Findings Consistent with Post-Op Diagnosis consistent with pre operative diagnosis Specimens Calcaneus specimen micro Description of Procedure Patient is a type II diabetic, 57 year old male who presents diabetic right heel wound. CT has shown osteomyelitis of calcaneus. Previous resection completed on 04/04/23. Patient is seen today for serial debridement, excision of non viable tissue right diabetic heel wound. I have reviewed the procedure and post operative recovery with Patient in detail. All questions answered. All potential risks, benefits, complications, alternatives, rehab, potential for incomplete relief of symptoms, need for further surgery, DVT, PE, , persistent pain, swelling, scarring, weakness, neurovascular, wound complications and potential for amputations were discussed with patient. Unwanted outcomes such as, but not limited to were reviewed including under correction, overcorrection, return of deformity, infection. All questions were answered. Patient has decided to proceed with procedure as indicated. Preoperative diagnosis: 1.) Right foot and ankle diabetic wound 2.) Right calcaneus Osteomyelitis Postoperative diagnosis: Same Name of operation: 1.) Wound debridement right foot and ankle 2.) Right partial excision calcaneus 3.) Delayed primary closure right foot Surgeon: Dr. Card Rda: None Anesthesia: General Estimated blood loss: Minimal Procedure in detail: Under mild sedation the patient was brought in the operating room placed on the operating table in supine position. Patient was then converted to prone position. A Pneumatic calf tourniquet was then placed about the patient's right calf. Following sedation Patient was placed in the prone position. The foot and ankle was then prepped, scrubbed, and draped, in the usual aseptic manner. An Esmarch bandage utilized examining the patient's right foot and ankle and the pneumatic calf tourniquet was inflated. Attention was directed to the plantar right heel where a diabetic wound measuri ng 9 x 9 cm was located. Utilizing a sharp, sterile, 15 blade the necrotic tissue was excised and placed on the back table. Necrotic calcaneus was exposed. Utilizing a rongeur a partial calcanectomy was completed down to healthy bleeding bone. The bone was removed and placed on the back table. A portion of bone was sent to microbiology for culture and sensitives.. Previous hardware including multiple suture anchors with fiberwire and fibertape were noted and removed whenever possible. Theses were retained hardware from tendo achilles repair. 1 Liter of lactate ringer was perfused low flow over the incision site. The incision was dressed with prothrombin gel foam followed by sterile compressive dressing consisting of 4 x 4's, ABD and Andrew. The pneumatic calf tourniquet was deflated and a prompt hyperemic response was noted to all digits of the right foot. An Balaji wrap was then applied. The Patient tolerated the procedure and anesthesia well. The Patient was transferred to recovery room with vital signs stable and vascular status intact all toes of the right foot. Following a period ofPostoperative monitoring the Patient will be readmitted to the floor resuming all preoperative orders. I attest to the content of the Intraoperative Record and any orders documented therein. Any exceptions are noted below.
[2023-04-09] MEDS: ceFAZolin 2000MG 2,000 MG/15 ML SYR IV SCH (03:58)
[2023-04-09 05:53] LABS: BUN Creatinine Ratio 36.9 (10-20); C Reactive Protein 4.07 mg/dl (0-0.5); Calcium 8.1 mg/dl (8.6-10.3); Creatinine Clr Calc Pharmacy 64.8 ml/min; Est GFR (African American) 56.3 ml/min; Est GFR (Non-African American) 48.6 ml/min; Potassium 4.1 mmol/L (3.5-5.1)
[2023-04-09 05:57] LABS: Hematocrit (blood only) 24.3 % (42.0-52.0); Hemoglobin 7.9 g/dl (14.0-18.0); Mean Corpuscular Hemoglobin 27.9 pg (25.0-34.0); Mean Corpuscular Hgb Conc 32.5 g/dL (32.0-36.0); Mean Corpuscular Volume 85.9 fL (80.0-100.0); Mean Platelet Volume 9.9 fL (9.4-12.4); Nucleated RBC # (auto) 0.02 K/uL (0-0.12); Nucleated RBC % (auto) 0.1 %; Platelet Count 241 K/uL (130-400); RDW Coefficient of Variation 14.9 % (11.5-14.5); RDW Standard Deviation 45.2 fL (36.4-46.3); Red Blood Count 2.83 M/uL (4.70-6.10); White Blood Count 13.57 K/ul (4.8-10.8)
[2023-04-09 06:56] LABS: ALC (manual) 1.63 K/uL (1.2-3.4); ANC (manual) 10.45 K/uL (1.4-6.5); Basophils # (manual) 0.14 K/uL (0-0.2); Basophils % (manual) 1 %; Eosinophils # (manual) 0.41 K/uL (0-0.50); Eosinophils % (manual) 3 %; Lymphocytes # (manual) 1.63 K/uL (1.2-3.4); Lymphocytes % (manual) 12 %; Macrocytosis Present; Metamyelocytes # (manual) 0.14 K/uL (0-0); Metamyelocytes % (manual) 1 %; Monocytes # (manual) 0.81 K/uL (0.11-0.59); Monocytes % (manual) 6 %; Neutrophils # (manual) 10.45 K/uL (1.40-6.50); Neutrophils % (manual) 77 %; Polychromasia 1+
--- NOTE | 2023-04-09 07:11 | Hospitalist Progress Note ---
Date of Service April 09, 2023 Assessment & Plan (1) Diabetic ulcer of right heel: Plan: 57-year-old male with PMH of CKD stage IV, DM, diastolic heart failure, hyperlipidemia, hypertension, WHIT, PAD, gout, restless legs who presented due to bilateral lower extremity swelling and ulcer right heel. Found to have likely osteomyelitis in right heel, s/p I&D/debridement x2. #osteomyelitis right foot #diabetic ulcer right heel -s/p debridement, I&D, partial excision calcaneus and delayed primary closure of R foot on 04/04/23. -F/u Xray from 04/05: inferior/posterior aspects of calcaneus resected, diffuse soft tissue swelling -subsequent debridement on evening of 04/07 -Blood cultures: no change. No new focal joint pain. -CRP continues downtrending but WBC climbing somewhat -Switched cefazolin to Unasyn based on better coverage for E. faecalis. Continue vancomycin. #anemia -multifactorial etiology given CKD and recent debridement -S/p multiple RBC transfusions. Hemodynamically stable -Hgb 7.8 today --hemodynamically stable otherwise -Continue to monitor H&H -Per Nephro attempt to maintain Hgb 8.0 or above -Unlikely to respond to NAIN therapy due to inflammation #diastolic heart failure #lymphedema -echo stable from April 2022, EF 60-65% -On furosemide 100mg IV TID per nephrology -Holding metolazone due to hyponatremia -monitor I/Os #diabetes mellitus -HgbA1C 9.8% -discussed importance of glycemic control in wound healing, heart disease, cerebrovascular disease #CKD stage 4 -most recent Cr 1.81, baseline is ~2, will continue to monitor -nephrology recommendations appreciated #hyponatremia -Na 125 on admission (asymptomatic), suspect a diuretic-related component, will monitor -Likely chronic per Nephro, DC'd thiazide -Continue to monitor #HLD -atorvastatin 80mg daily #HTN -stable -home dose metoprolol w/ parameters -continue diuresis #WHIT -continue at home CPAP #PAD -Diffuse atherosclerotic disease on arterial Doppler of the right lower extremity, continue home aspirin and atorvastatin,consider vascular surgery consultation #gout -allopurinol, prednisone #constipation -Miralax, Senna #restless legs -pramipexole 0.25 -continue nightly #depression -sertraline NIDAI: heart healthy, carb conscious DVT ppx: Lovenox 40mg SQ daily Dispo: PCU status, DC planning once ulcer/osteo controlled and no more debridements are necessary CODE STATUS: Full Admission and Anticipated Discharge Date Admission Date: April 03, 2023 Supervising Physician Co-Signing Physician Notes I personally examined the patient and verified all lester points of history and exam, discussed case, and agree with decision making with Dr Mosquera Awake and on his phone. No complaints. Understands the slow time course of his hospitalization and appreciates care. Vitals noted, in general he is awake and alert pleasant no distress. HEENT normocephalic atraumatic mucous membranes moist. Breathing unlabored no accessory muscle use good effort. No new focal neurologic deficits. CBC, BMP, CRP noted Diabetic foot ulcer with abscess and subsequent osteomyelitis, sepsis on admission (tachycardia and leukocytosis)cultures are showing MRSA, Enterococcus, and E. coli. with blood culture being 1/2, and follow up no growth to date, echo reassuring - suspect contaminant. Vancomycin for MRSA, and Unasyn for the remainder of his coverageappears to be improving from antibiotics/sepsis/antimicrobial standpoint, surgery assistance in debridement/removal of infected and tissue greatly appreciated. Uncontrolled diabeteseducation as he will allow, seems precontemplative in discussion with team Otherwise as above Subjective No acute complaints. Pain well controlled. Blood counts and vitals stable. Denies JEFFERY, dizziness, n/v, CP, palp, SOB, abd pain. Review of Systems Review of Systems: Per subjective Physical Exam Physical Exam: GENERAL: A&Ox3, NAD. CHEST/LUNGS: CTAB A/P. No crackles, wheezes, rales, rhonchi. HEART: RRR. No m/g/r. No carotid bruits. EXTREMITIES: Significant BL LE edema stable from prior exam; R foot wrapped, c/d/i SKIN: Warm and dry. No rashes or lesions. PSYCHIATRIC: Euthymic affect, no SI, no pressured speech, no hallucinations NEUROLOGIC: No FND. Results & Data Results & Data Vital Signs (Past 12 Hours) Vital Signs Temp Pulse Pulse Resp BP Pulse Ox O2 Del Method 04/09/23 06:34 36.7 C 60 20 143/53 H 92 Room Air 04/08/23 23:30 59 L 04/09/23 03:00 36.9 C 56 L 16 156/66 H 94 CPAP 04/08/23 23:00 36.7 C 62 18 138/57 L 94 Room Air 04/08/23 19:03 36.6 C 59 L 20 155/82 H 97 Room Air Resident Activity Tracking Resident Involvement: Resident Care Provided Care Provided: Adult [facility]
[2023-04-09] MEDS: FUROSEMIDE 10 MG/ML 10 ML VIAL IV SCH ×3 (08:01→21:28)
[2023-04-09] MEDS: SENNA 8.6 MG TAB PO SCH (08:02)
[2023-04-09] MEDS: GABAPENTIN 300 MG CAP PO SCH ×3 (08:02→21:27)
[2023-04-09] MEDS: ASPIRIN 81 MG ECTAB PO SCH (08:02)
[2023-04-09] MEDS: POLYETHYLENE (MIRALAX) 17 GM PACK PO SCH (08:02)
[2023-04-09] MEDS: SERTRALINE HCL 50 MG TABLET PO SCH (08:03)
[2023-04-09] MEDS: allopurinoL 300 MG TAB PO SCH (08:03)
[2023-04-09] MEDS: predniSONE 5 MG TAB PO SCH (08:03)
[2023-04-09] MEDS: LANTUS PER UNIT CHARGE SC SCH ×2 (08:03→21:29)
[2023-04-09] MEDS: INSULIN ASPART PER UNIT CHARGE SC SCH ×4 (08:03→21:29)
[2023-04-09] MEDS ORDERED: VANCOMYCIN HCL 1,000 MG in SODIUM CHLORIDE 0.9% 250 ML IV ONE ×2 (10:00→14:00)
[2023-04-09] MEDS: DAKIN'S SOLN 0.125% QUARTER STRENGTH 473 ML BTL EXT SCH (10:07)
--- NOTE | 2023-04-09 10:16 | Pharmacy Report ---
Pharmacy PK ABX Note - Date of Service April 09, 2023 - Assessment and Plan Assessment 57 year old M receiving Vancomycin and Unasyn for treatment of osteomyelitis. * Day #7 of antimicrobial therapy. * Renal fxn was worsening x4 days (1.17-->1.32-->1.62-->1.81 two days ago), SCr downtrended yesterday to 1.49, but now trending slightly up again today 1.57 * OR cultures are final now and grew: MRSA (vanc CLAUDIA 1), E. faecalis (amp/vanc sensitive, although vanc CLAUDIA is 2), and E. coli (pansensitive). Prior pharmacist recommended that primary team reach out to infectious disease regarding selection, route and duration of antibiotics. Appears patient prefers salvage therapy with abx rather than amputation per notes. * Patient returned to OR 04/07 for I&D - no growth at this time Vancomycin * Current regimen: dosing via level 2nd acutely changing renal function * Random ~15 hour level obtained 04/09/23 AM resulted as 19.5 mcg/mL * Renal function acutely changing - will continue to dose via level for now Plan * Vancomycin 1000 mg IV x1 today @1400 * Random level with AM labs tomorrow Pharmacy will continue to follow and will adjust dose/frequency as necessary. Thank you. Pharmacy has transitioned to AUC monitoring for vancomycin. AUC/CLAUDIA is the pr eferred PK/PD target and is associated with decreased risk of nephrotoxicity compared to traditional trough targets.
[2023-04-09] MEDS: AMPICILLIN/SULBACTAM SOD 3,000 MG in 0.9 % SODIUM CHLORIDE 100 ML IV SCH ×3 (10:23→21:32)
--- NOTE | 2023-04-09 10:50 | Nephrology Progress Note ---
Date of Service April 09, 2023 Assessment & Plan (1) CKD (chronic kidney disease): Plan: * Kidney function remains stable at this time. Electrolyte balance is acceptable * CKD stage G3b/A2 (moderate impairment). Baseline Cr has been 2.0 w/ EGFR 36 cc/min. Urine sediment has been acellular. UPCR 0.2. Renal US 08/31 revealed 11 cm kidneys, no obstruction/stone/mass. Kidney function has fluctuated w/ volume status. Renal impairment is due to DKD, diastolic heart failure (2) Hyponatremia: Plan: * Mild hyponatremia, likely chronic, asymptomatic. Serum sodium stable at 133 mmol/L * Thiazide diuretic therapy discontinued. Diuresing with furosemide * Volume status is difficult to assess due to chronic lymphedema, I/O demonstrating continued negative fluid balance * Will continue Furosemide 100 mg IV TID * Monitor PRP daily (3) Anemia: Plan: * Hgb 7.9 this AM * 1 u PRBC transfusion yesterday, 4th for admission * Will check iron profile tomorrow AM * Epogen 77278 units x 1 now * Recommend transfusion to maintain Hgb 8.0 or above (4) Lymphedema: Plan: * Continue Lasix 100 mg IV TID and monitor volume status, UO, kidney function and electrolyte balance * Hold Metolazone due to hyponatremia * Recommend low Na diet (5) Diabetic ulcer of right heel: Plan: * Remains on Vancomycin, cefazolin * 04/04/23 R foot I&D, debridement and partial calcanectomy by Dr. Card * 04/07/23 R heel I&D Admission and Anticipated Discharge Date Admission Date: April 03, 2023 Subjective No acute events overnight. Increased urine output. Denies notable change in edema. Transferred from bed to chair this AM. Frustrated by limited ability to weight bear and walk. Denies significant pain. No fevers or chills. Review of Systems Review of Systems: All systems reviewed & are unremarkable except as noted in HPI & below Physical Exam Constitutional: well developed; no acute distress Eyes: + anicteric sclerae; no scleral abnormality ENMT: Mouth: no oral mucosal abnormality and oral mucous membranes not dry Neck: normal visual inspection and trachea midline Respiratory: normal respiratory effort, lungs clear to auscultation Cardiovascular: Rate/Rhythm: regular rate and regular rhythm Extremities: + edema (2+ LE lymphedema, R foot is wrapped) Gastrointestinal (Abdomen): normal bowel sounds, soft, nontender, no hepatosplenomegaly Skin: + turgor decreased; no jaundice Neurologic: Speech / Cognition: normal speech and normal cognition Results & Data Vital Signs (Past 12 Hours) Vital Signs Temp Pulse Pulse Resp BP Pulse Ox O2 Del Method 04/09/23 06:34 36.7 C 60 20 143/53 H 92 Room Air 04/08/23 23:30 59 L 04/09/23 03:00 36.9 C 56 L 16 156/66 H 94 CPAP 04/08/23 23:00 36.7 C 62 18 138/57 L 94 Room Air Laboratory Results Laboratory Results - last 24 hr 04/08/23 04/08/23 04/08/23 11:34 14:19 14:34 WBC RBC Hgb 8.0 L Hct 24.6 L MCV MCH MCHC RDW Std Deviation RDW Coeff of Diane Plt Count MPV Absolute Nucleated RBC Nucleated RBC % (auto) Neutrophils % (Manual) Lymphocytes % (Manual) Monocytes % (Manual) Eosinophils % (Manual) Basophils % (Manual) Metamyelocytes % (Man) Neutrophils # (Manual) Total Absolute Neuts Lymphocytes # (Manual) Total Abs Lymphocytes Monocytes # (Manual) Eosinophils # (Manual) Basophils # (Manual) Metamyelocytes # (Man) Polychromasia Macrocytosis Sodium Potassium Chloride Carbon Dioxide Anion Gap BUN Creatinine Est Cr Clr Drug Dosing Est GFR ( Amer) Est GFR (Non-Af Amer) BUN/Creatinine Ratio Glucose POC Glucose 106 H 53 L* Calcium C-Reactive Protein Random Vancomycin 04/08/23 04/08/23 04/08/23 14:54 16:21 20:07 WBC RBC Hgb Hct MCV MCH MCHC RDW Std Deviation RDW Coeff of Diane Plt Count MPV Absolute Nucleated RBC Nucleated RBC % (auto) Neutrophils % (Manual) Lymphocytes % (Manual) Monocytes % (Manual) Eosinophils % (Manual) Basophils % (Manual) Metamyelocytes % (Man) Neutrophils # (Manual) Total Absolute Neuts Lymphocytes # (Manual) Total Abs Lymphocytes Monocytes # (Manual) Eosinophils # (Manual) Basophils # (Manual) Metamyelocytes # (Man) Polychromasia Macrocytosis Sodium Potassium Chloride Carbon Dioxide Anion Gap BUN Creatinine Est Cr Clr Drug Dosing Est GFR ( Amer) Est GFR (Non-Af Amer) BUN/Creatinine Ratio Glucose POC Glucose 77 128 H 149 H Calcium C-Reactive Protein Random Vancomycin 04/09/23 04/09/23 04/09/23 05:15 05:15 05:15 WBC 13.57 H RBC 2.83 L Hgb 7.9 L Hct 24.3 L MCV 85.9 MCH 27.9 MCHC 32.5 RDW Std Deviation 45.2 RDW Coeff of Diane 14.9 H Plt Count 241 MPV 9.9 Absolute Nucleated RBC 0.02 Nucleated RBC % (auto) 0.1 Neutrophils % (Manual) 77 Lymphocytes % (Manual) 12 Monocytes % (Manual) 6 Eosinophils % (Manual) 3 Basophils % (Manual) 1 Metamyelocytes % (Man) 1 Neutrophils # (Manual) 10.45 H Total Absolute Neuts 10.45 H Lymphocytes # (Manual) 1.63 Total Abs Lymphocytes 1.63 Monocytes # (Manual) 0.81 H Eosinophils # (Manual) 0.41 Basophils # (Manual) 0.14 Metamyelocytes # (Man) 0.14 H Polychromasia 1+ Macrocytosis Present Sodium 133 L Potassium 4.1 Chloride 97 L Carbon Dioxide 31 Anion Gap 5 BUN 58 H Creatinine 1.57 H Est Cr Clr Drug Dosing 64.8 Est GFR ( Amer) 56.3 Est GFR (Non-Af Amer) 48.6 BUN/Creatinine Ratio 36.9 H Glucose 136 H POC Glucose Calcium 8.1 L C-Reactive Protein 4.07 H Random Vancomycin 19.5 04/09/23 07:12 WBC RBC Hgb Hct MCV MCH MCHC RDW Std Deviation RDW Coeff of Diane Plt Count MPV Absolute Nucleated RBC Nucleated RBC % (auto) Neutrophils % (Manual) Lymphocytes % (Manual) Monocytes % (Manual) Eosinophils % (Manual) Basophils % (Manual) Metamyelocytes % (Man) Neutrophils # (Manual) Total Absolute Neuts Lymphocytes # (Manual) Total Abs Lymphocytes Monocytes # (Manual) Eosinophils # (Manual) Basophils # (Manual) Metamyelocytes # (Man) Polychromasia Macrocytosis Sodium Potassium Chloride Carbon Dioxide Anion Gap BUN Creatinine Est Cr Clr Drug Dosing Est GFR ( Amer) Est GFR (Non-Af Amer) BUN/Creatinine Ratio Glucose POC Glucose 144 H Calcium C-Reactive Protein Random Vancomycin PG Care Time/CCT Total # of Minutes Spent Total Time Spent with Patient: Total time spent is greater than 50% in coordination of care (as documented) at patient's floor/unit and/or counseling patient: Coding Level of Care Code 82741 SUB INP/OBS CARE MIN Diagnoses CKD (chronic kidney disease) N18.9 Hyponatremia E87.1 Anemia D64.9 Lymphedema I89.0 Diabetic ulcer of right heel E11.621; L97.419
[2023-04-09] MEDS ORDERED: EPOETIN ALFA 10,000 UNITS/ML VIAL SQ ONE (10:51)
--- NOTE | 2023-04-09 15:55 | Billing Data ---
Date of Service April 09, 2023 Coding Level of Care Code 26781 SUB INP/OBS CARE
[2023-04-09] MEDS: ENOXAPARIN INJ 40 MG/0.4 ML SYR SQ SCH (16:49)
[2023-04-09] MEDS: LACTATED RINGER'S 1,000 ML IV SCH (16:53)
[2023-04-09] MEDS: ATORVASTATIN 40 MG TAB PO SCH (21:27)
[2023-04-09] MEDS: METOPROLOL SUCC 50MG EXT REL TAB PO SCH (21:27)
[2023-04-09] MEDS: MELATONIN 3 MG TAB PO SCH (21:27)
[2023-04-09] MEDS: PANTOprazole 40 MG TAB PO SCH (21:28)
[2023-04-09] MEDS: DOXAZosin MESYLATE 4 MG TAB PO SCH (21:28)
[2023-04-09] MEDS: rOPINIRole HCL 0.25 MG TABLET PO SCH (21:28)
[2023-04-10] MEDS: AMPICILLIN/SULBACTAM SOD 3,000 MG in 0.9 % SODIUM CHLORIDE 100 ML IV SCH ×4 (04:20→21:28)
[2023-04-10 05:58] LABS: Hematocrit (blood only) 23.5 % (42.0-52.0); Hemoglobin 7.5 g/dl (14.0-18.0); Mean Corpuscular Hemoglobin 28.2 pg (25.0-34.0); Mean Corpuscular Hgb Conc 31.9 g/dL (32.0-36.0); Mean Corpuscular Volume 88.3 fL (80.0-100.0); Mean Platelet Volume 9.6 fL (9.4-12.4); Nucleated RBC # (auto) 0.02 K/uL (0-0.12); Nucleated RBC % (auto) 0.2 %; Platelet Count 208 K/uL (130-400); RDW Coefficient of Variation 15.1 % (11.5-14.5); RDW Standard Deviation 47.4 fL (36.4-46.3); Red Blood Count 2.66 M/uL (4.70-6.10); White Blood Count 12.28 K/ul (4.8-10.8)
[2023-04-10 06:15] LABS: Calcium 8.4 mg/dl (8.6-10.3); Phosphorus 4.5 mg/dl (2.5-4.9); Potassium 4.5 mmol/L (3.5-5.1)
[2023-04-10] MEDS: INSULIN ASPART PER UNIT CHARGE SC SCH ×4 (08:09→21:00)
[2023-04-10] MEDS: LANTUS PER UNIT CHARGE SC SCH ×2 (08:09→21:34)
[2023-04-10] MEDS: SENNA 8.6 MG TAB PO SCH (08:10)
[2023-04-10] MEDS: SERTRALINE HCL 50 MG TABLET PO SCH (08:10)
[2023-04-10] MEDS: predniSONE 5 MG TAB PO SCH (08:10)
[2023-04-10] MEDS: allopurinoL 300 MG TAB PO SCH (08:10)
[2023-04-10] MEDS: POLYETHYLENE (MIRALAX) 17 GM PACK PO SCH (08:10)
[2023-04-10] MEDS: ASPIRIN 81 MG ECTAB PO SCH (08:11)
[2023-04-10] MEDS: GABAPENTIN 300 MG CAP PO SCH ×3 (08:11→21:39)
[2023-04-10] MEDS: FUROSEMIDE 10 MG/ML 10 ML VIAL IV SCH (08:11)
[2023-04-10] MEDS: DAKIN'S SOLN 0.125% QUARTER STRENGTH 473 ML BTL EXT SCH (09:22)
[2023-04-10 10:02] LABS: Albumin Level 2.8 gm/dl (3.4-5.0); BUN Creatinine Ratio 36.5 (10-20); C Reactive Protein 3.92 mg/dl (0-0.5); Est GFR (African American) 56.7 ml/min; Est GFR (Non-African American) 48.9 ml/min
[2023-04-10 10:22] LABS: Ferritin 965.5 ng/ml (8-388)
--- NOTE | 2023-04-10 10:56 | Hospitalist Progress Note ---
Date of Service April 10, 2023 Assessment & Plan (1) Diabetic ulcer of right heel: Plan: 57-year-old male with PMH of CKD stage IV, DM, diastolic heart failure, hyperlipidemia, hypertension, WHIT, PAD, gout, restless legs who presented due to bilateral lower extremity swelling and ulcer right heel. Found to have likely osteomyelitis in right heel, s/p I&D/debridement x2. #osteomyelitis right foot #diabetic ulcer right heel -s/p debridement, I&D, partial excision calcaneus and delayed primary closure of R foot on 04/04/23. -F/u Xray from 04/05: inferior/posterior aspects of calcaneus resected, diffuse soft tissue swelling -subsequent debridement on evening of 04/07 -Blood cultures: no change. No new focal joint pain. -CRP continues downtrending, WBC also downtrending -Continue Unasyn based on better coverage for E. faecalis. Continue vancomycin. -ID consult placed to determine outpatient antibiotic treatment and duration. Appreciate Recs #anemia -multifactorial etiology given CKD and recent debridement -S/p multiple RBC transfusions. Hemodynamically stable -Hgb 7.5 today --hemodynamically stable otherwise -Continue to monitor H&H -Per Nephro attempt to maintain Hgb 8.0 or above -Unlikely to respond to NAIN therapy due to inflammation #diastolic heart failure #lymphedema -echo stable from April 2022, EF 60-65% -On furosemide 100mg IV TID per nephrology -Holding metolazone due to hyponatremia -monitor I/Os #diabetes mellitus -HgbA1C 9.8% -discussed importance of glycemic control in wound healing, heart disease, cerebrovascular disease #CKD stage 4 -most recent Cr 1.56, baseline is ~2, will continue to monitor -nephrology recommendations appreciated #hyponatremia -Na 125 on admission (asymptomatic), suspect a diuretic-related component, will monitor -Likely chronic per Nephro, DC'd thiazide -Continue to monitor #HLD -atorvastatin 80mg daily #HTN -stable -home dose metoprolol w/ parameters -continue diuresis #WHIT -continue at home CPAP #PAD -Diffuse atherosclerotic disease on arterial Doppler of the right lower extremity, continue home aspirin and atorvastatin,consider vascular surgery consultation #gout -allopurinol, prednisone #constipation -Miralax, Senna #restless legs -pramipexole 0.25 -continue nightly #depression -sertraline FENGI: heart healthy, carb conscious DVT ppx: Lovenox changed to heparin due to kidney function Dispo: PCU status, DC planning once ulcer/osteo controlled and no more debridements are necessary CODE STATUS: Full Admission and Anticipated Discharge Date Admission Date: April 03, 2023 Supervising Physician Co-Signing Physician Notes I also saw the patient with the resident physician and confirmed lester portions of the history and physical examination. I agree with impression and plan as noted in the resident documentation above. Upon our late morning exam, the patient was seated in bed eating an early lunch. No complaints. Overall, notes that he is feeling better; asked him to clarify, he notes that he is feeling stronger than he did upon admission. Exam 127/59, 60, 19, 36.7, 96% room air Alert and oriented Respirations nonlabored, lungs clear Heart regular Data WBC 12.28, platelet count 208 Sodium 135, Potassium 4.5, BUN 57. Cr 1.56 A/P Diabetic foot ulcer with abscess and subsequent osteomyelitis, sepsis on admission (tachycardia and leukocytosis) Status postdebridement x2 Wound cultures from 04/04/2023 show MRSA and E. coli Remains on vancomycin and Unasyn Consult infectious disease Uncontrolled diabetes Insulin Patient education Additional per resident note Subjective Patient is a bedside this morning. No acute events reported overnight. Patient not having any complaints this morning. Wondering about disposition and need for antibiotics at this time. Denies any lower extremity pain. No systemic symptoms such as nausea, vomiting, shortness of breath, or headache. Overall doing well. Review of Systems Review of Systems: Per HPI Physical Exam Constitutional: WD/WN, vitals as above + obese Eyes: + anicteric sclerae Neck: normal visual inspection Respiratory: normal respiratory effort, lungs clear to auscultation Cardiovascular: Rate/Rhythm: regular rate and regular rhythm Vessels: no JVD Extremities: + edema Gastrointestinal (Abdomen): normal bowel sounds, soft, nontender, no hepatosplenomegaly Musculoskeletal: Head/Neck/Chest: normocephalic and head atraumatic R Foot: There is a deep, debrided ulceration on the bottom of the R foot at the heel. The wound is bandaged in sterile gauze and an quin bandage. No erythema or purulent discharge. Skin: no rashes, warm and dry Neurologic: moves all extremities Psychiatric: Orientation: alert and oriented x 3 Results & Data Results & Data Vital Signs (Past 12 Hours) Vital Signs Temp Pulse Pulse Pulse Resp BP Pulse Ox 04/10/23 08:00 56 L 04/10/23 07:48 36.8 C 62 18 136/50 L 92 04/10/23 03:00 36.9 C 61 18 125/80 92 04/10/23 00:36 67 04/09/23 23:00 36.8 C 66 20 156/57 H 91 O2 Del Method 04/10/23 08:00 04/10/23 07:48 Room Air 04/10/23 03:00 Room Air 04/10/23 00:36 04/09/23 23:00 CPAP
--- NOTE | 2023-04-10 10:59 | Nephrology Progress Note ---
Date of Service April 10, 2023 Assessment & Plan (1) CKD (chronic kidney disease): Plan: * Kidney function remains stable at this time. Electrolyte balance is acceptable * CKD stage G3b/A2 (moderate impairment). Baseline Cr has been 1.5-2.0 w/ EGFR 36 cc/min. Urine sediment has been acellular. UPCR 0.2. Renal US 08/31 revealed 11 cm kidneys, no obstruction/stone/mass. Kidney function has fluctuated w/ volume status. Renal impairment is due to DKD, diastolic heart failure. * L RC AVF was created 08/04/[address] Leon. * Volume status improving, kidney function stable. Nephrology will sign-off today. Please call if there are additional questions or concerns this hospitalization. * Please arrange outpatient follow up with Dr. Alvarez within 1-2 weeks of discharge. (2) Hyponatremia: Plan: * Mild hyponatremia, chronic, asymptomatic. Serum sodium stable at 135 mmol/L. * Thiazide diuretic therapy discontinued. Diuresing with furosemide. * Volume status is difficult to assess due to chronic lymphedema, I/O demonstrating continued negative fluid balance. * Will continue Furosemide 100 mg IV TID. Furosemide converted to PO today. * Monitor PRP daily while inpatient. (3) Anemia: Plan: * Hgb 7.5 this AM. * 4 units PRBC transfusion support have been provided throughout the admission. Most recently 04/08. * Tsat 16. * Epogen 10,000 units x 1 provided 04/09. * Venofer 200 mg IV x 1 dose today, then 200 mg daily while inpatient or stop after 5 doses. (4) Lymphedema: Plan: * Continue Lasix 100 mg TID and monitor volume status, UO, kidney function and electrolyte balance. * Hold Metolazone due to hyponatremia. * Recommend low Na diet. (5) Diabetic ulcer of right heel: Plan: * Treatment with Unasyn. ID consult pending. * 04/04/23 R foot I&D, debridement and partial calcanectomy by Dr. Card. * 04/07/23 R heel I&D. Admission and Anticipated Discharge Date Admission Date: April 03, 2023 Subjective No acute events overnight. Resting comfortably in bed this AM. Denies pain. LE edema stable. Weight stable. I/O's demonstrate continued negative fluid balance. Reid hopes to return home soon. He states that he feels well. No fevers or chills. Review of Systems Review of Systems: All systems reviewed & are unremarkable except as noted in HPI & below Physical Exam Constitutional: well developed; no acute distress Eyes: + anicteric sclerae; no scleral abnormality ENMT: Mouth: no oral mucosal abnormality and oral mucous membranes not dry Neck: normal visual inspection and trachea midline Respiratory: normal respiratory effort, lungs clear to auscultation Cardiovascular: Rate/Rhythm: regular rate and regular rhythm Extremities: + edema (2+ LE lymphedema, R foot is wrapped) Gastrointestinal (Abdomen): normal bowel sounds, soft, nontender, no hepatosplenomegaly Musculoskeletal: Extremities: no cyanosis and no clubbing Skin: + turgor decreased; no jaundice Neurologic: Speech / Cognition: normal speech and normal cognition Results & Data Vital Signs (Past 12 Hours) Vital Signs Temp Pulse Pulse Pulse Resp BP Pulse Ox 04/10/23 08:00 56 L 04/10/23 07:48 36.8 C 62 18 136/50 L 92 04/10/23 03:00 36.9 C 61 18 125/80 92 04/10/23 00:36 67 04/09/23 23:00 36.8 C 66 20 156/57 H 91 O2 Del Method 04/10/23 08:00 04/10/23 07:48 Room Air 04/10/23 03:00 Room Air 04/10/23 00:36 04/09/23 23:00 CPAP Laboratory Results Laboratory Results - last 24 hr 04/09/23 04/09/23 04/09/23 11:04 16:28 20:13 WBC RBC Hgb Hct MCV MCH MCHC RDW Std Deviation RDW Coeff of Diane Plt Count MPV Absolute Nucleated RBC Nucleated RBC % (auto) Sodium Potassium Chloride Carbon Dioxide Anion Gap BUN Creatinine Est Cr Clr Drug Dosing Est GFR ( Amer) Est GFR (Non-Af Amer) BUN/Creatinine Ratio Glucose POC Glucose 155 H 156 H 148 H Calcium Phosphorus Iron TIBC Unsaturated IBC Transferrin % Sat Ferritin C-Reactive Protein Albumin Random Vancomycin 04/10/23 04/10/23 04/10/23 05:43 05:43 05:43 WBC 12.28 H RBC 2.66 L Hgb 7.5 L Hct 23.5 L MCV 88.3 MCH 28.2 MCHC 31.9 L RDW Std Deviation 47.4 H RDW Coeff of Diane 15.1 H Plt Count 208 MPV 9.6 Absolute Nucleated RBC 0.02 Nucleated RBC % (auto) 0.2 Sodium 135 L Potassium 4.5 Chloride 97 L Carbon Dioxide 29 Anion Gap 9 BUN 57 H Creatinine 1.56 H Est Cr Clr Drug Dosing 66.0 Est GFR ( Amer) 56.7 Est GFR (Non-Af Amer) 48.9 BUN/Creatinine Ratio 36.5 H Glucose 125 H POC Glucose Calcium 8.4 L Phosphorus 4.5 Iron 33 L TIBC 203 L Unsaturated IBC 170 Transferrin % Sat 16 L Ferritin 965.5 H C-Reactive Protein 3.92 H Albumin 2.8 L Random Vancomycin 18.4 04/10/23 07:22 WBC RBC Hgb Hct MCV MCH MCHC RDW Std Deviation RDW Coeff of Diane Plt Count MPV Absolute Nucleated RBC Nucleated RBC % (auto) Sodium Potassium Chloride Carbon Dioxide Anion Gap BUN Creatinine Est Cr Clr Drug Dosing Est GFR ( Amer) Est GFR (Non-Af Amer) BUN/Creatinine Ratio Glucose POC Glucose 161 H Calcium Phosphorus Iron TIBC Unsaturated IBC Transferrin % Sat Ferritin C-Reactive Protein Albumin Random Vancomycin PG Care Time/CCT Total # of Minutes Spent Total Time Spent with Patient: Total time spent is greater than 50% in coordination of care (as documented) at patient's floor/unit and/or counseling patient: Coding Level of Care Code 47186 SUB INP/OBS CARE 3/50MIN Diagnoses CKD (chronic kidney disease) N18.9 Hyponatremia E87.1 Anemia D64.9 Lymphedema I89.0 Diabetic ulcer of right heel E11.621; L97.419
--- NOTE | 2023-04-10 11:14 | Pharmacy Report ---
Pharmacy PK ABX Note - Date of Service April 10, 2023 - Assessment and Plan Assessment 57 year old M receiving Vancomycin and Unasyn for treatment of osteomyelitis. * Day #7 of antimicrobial therapy. * Renal fxn was worsening x4 days (1.17-->1.32-->1.62-->1.81 two days ago), SCr downtrended yesterday to 1.49, but now trending slightly up again today 1.57 * OR cultures are final now and grew: MRSA (vanc CLAUDIA 1), E. faecalis (amp/vanc sensitive, although vanc CLAUDIA is 2), and E. coli (pansensitive). Prior pharmacist recommended that primary team reach out to infectious disease regarding selection, route and duration of antibiotics. Appears patient prefers salvage therapy with abx rather than amputation per notes. * Patient returned to OR 04/07 for I&D - no growth at this time 04/10: * Scr stabilized today @ 1.56. Will repeat one time dose today. If renal function remains stable, can consider resuming scheduled doses. 04/07 I&D cultures still with no growth. Vancomycin * Current regimen: dosing via level 2nd acutely changing renal function * Random ~15 hour level obtained 04/09/23 AM resulted as 18.4 mcg/mL * Renal function acutely changing - will continue to dose via level for now Plan * Vancomycin 1000 mg IV x1 today @1400 * Random level with AM labs tomorrow Pharmacy will continue to follow and will adjust dose/frequency as necessary. Thank you. Pharmacy has transitioned to AUC monitoring for vancomycin. AUC/CLAUDIA is the preferred PK/PD target and is associated with decreased risk of nephrotoxicity compared to traditional trough targets.
[2023-04-10] MEDS ORDERED: IRON SUCROSE 200 MG in 0.9 % SODIUM CHLORIDE 100 ML IV ONE (11:45)
[2023-04-10] MEDS: FUROSEMIDE 20 MG TAB PO SCH ×2 (13:26→21:40)
[2023-04-10] MEDS: HEPARIN SOD 5,000 UNIT/0.5 ML VIAL SQ SCH ×2 (13:26→21:39)
[2023-04-10] MEDS ORDERED: VANCOMYCIN HCL 1,000 MG in SODIUM CHLORIDE 0.9% 250 ML IV ONE (14:00)
[2023-04-10] MEDS: LACTATED RINGER'S 1,000 ML IV SCH (16:49)
[2023-04-10] MEDS: MELATONIN 3 MG TAB PO SCH (21:34)
[2023-04-10] MEDS: PANTOprazole 40 MG TAB PO SCH (21:38)
[2023-04-10] MEDS: ATORVASTATIN 40 MG TAB PO SCH (21:38)
[2023-04-10] MEDS: DOXAZosin MESYLATE 4 MG TAB PO SCH (21:39)
[2023-04-10] MEDS: METOPROLOL SUCC 50MG EXT REL TAB PO SCH (21:40)
[2023-04-10] MEDS: rOPINIRole HCL 0.25 MG TABLET PO SCH (21:40)
--- NOTE | 2023-04-10 21:41 | Orthopedic Progress Note ---
Date of Service April 10, 2023 Assessment & Plan (1) Diabetic ulcer of right heel: Plan: Patient seen, evaluated, and treated. Dressing change completed. Wound Vac order placed. Patient may benefit from attempted delayed primary closure prior to discharge if source control achieved. No growth from calcaneus bone debridement on 04/07/23 and is encouraging. Patient would best be served discharged to senior care facility. Will continue to discuss with Patient. Will continue to follow while in house. Admission and Anticipated Discharge Date Admission Date: April 03, 2023 Subjective Patient seen at bedside. He has no complaints. 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
[2023-04-11] MEDS: HEPARIN SOD 5,000 UNIT/0.5 ML VIAL SQ SCH ×3 (05:44→21:57)
[2023-04-11] MEDS: AMPICILLIN/SULBACTAM SOD 3,000 MG in 0.9 % SODIUM CHLORIDE 100 ML IV SCH ×4 (05:44→21:57)
[2023-04-11 05:59] LABS: Hematocrit (blood only) 23.8 % (42.0-52.0); Hemoglobin 7.6 g/dl (14.0-18.0); Mean Corpuscular Hemoglobin 28.4 pg (25.0-34.0); Mean Corpuscular Hgb Conc 31.9 g/dL (32.0-36.0); Mean Corpuscular Volume 88.8 fL (80.0-100.0); Mean Platelet Volume 9.5 fL (9.4-12.4); Nucleated RBC # (auto) 0.03 K/uL (0-0.12); Nucleated RBC % (auto) 0.3 %; Platelet Count 224 K/uL (130-400); RDW Coefficient of Variation 15.3 % (11.5-14.5); RDW Standard Deviation 47.9 fL (36.4-46.3); Red Blood Count 2.68 M/uL (4.70-6.10); White Blood Count 11.94 K/ul (4.8-10.8)
[2023-04-11 06:03] LABS: BUN Creatinine Ratio 37.3 (10-20); Calcium 8.5 mg/dl (8.6-10.3); Creatinine Clr Calc Pharmacy 68.1 ml/min; Est GFR (African American) 59.5 ml/min; Est GFR (Non-African American) 51.3 ml/min; Potassium 4.1 mmol/L (3.5-5.1)
[2023-04-11] MEDS: FUROSEMIDE 20 MG TAB PO SCH ×3 (08:08→16:39)
[2023-04-11] MEDS: FUROSEMIDE 80 MG TAB PO SCH ×3 (08:09→16:39)
[2023-04-11] MEDS: IRON SUCROSE 200 MG in 0.9 % SODIUM CHLORIDE 100 ML IV SCH (08:09)
[2023-04-11] MEDS: predniSONE 5 MG TAB PO SCH (08:10)
[2023-04-11] MEDS: SERTRALINE HCL 50 MG TABLET PO SCH (08:10)
[2023-04-11] MEDS: POLYETHYLENE (MIRALAX) 17 GM PACK PO SCH (08:10)
[2023-04-11] MEDS: SENNA 8.6 MG TAB PO SCH (08:10)
[2023-04-11] MEDS: GABAPENTIN 300 MG CAP PO SCH ×3 (08:11→21:56)
[2023-04-11] MEDS: ASPIRIN 81 MG ECTAB PO SCH (08:12)
[2023-04-11] MEDS: INSULIN ASPART PER UNIT CHARGE SC SCH ×4 (08:12→22:00)
[2023-04-11] MEDS: allopurinoL 300 MG TAB PO SCH (08:12)
[2023-04-11] MEDS: LANTUS PER UNIT CHARGE SC SCH ×2 (08:13→22:00)
[2023-04-11] MEDS ORDERED: VANCOMYCIN HCL 1,000 MG in SODIUM CHLORIDE 0.9% 250 ML IV SCH (12:00)
--- NOTE | 2023-04-11 13:10 | Hospitalist Progress Note ---
Date of Service April 11, 2023 Assessment & Plan (1) Diabetic ulcer of right heel: Plan: Summary: Mr. Swartz is a 57 y/o M with PMHx of diastolic CHF, anemia, CKD 4, DM2 (HgbA1C 9.8%), HTN, HLD, WHIT who presented to the ED on 04/03/23 after a week of worsening lower extremity edema and heaviness. #osteomyelitis right foot #diabetic ulcer right heel -s/p 2x debridement, I&D, partial excision calcaneus and delayed primary closure of R foot on 04/04/23 -Podiatry 04/10: Recommended wound vac, potential delayed primary closure, discharge to SNF -Wound cultures 04/04: pansenstiive E. coli, MRSA, Enterococcus, anaerobic gram positives. No growth from calcaneus. -Blood cultures: negative. No new focal joint pain. -Continue vancomycin and Unsayn. #diastolic heart failure -echo stable from April 2022, EF 60-65% -Furosemide PO 100 TID -monitor I/Os #anemia, normocytic, likely secondary to CKD and iron deficiency -Hgb 7.6 with MCV 88. -S/p RBC transfusions. Hemodynamically stable -Receiving iron infusion and EPO per nephro -multifactorial etiology given CKD and debridements #diabetes mellitus -HgbA1C 9.8% -discussed importance of glycemic control in wound healing, heart disease, cerebrovascular disease #CKD stage 4 -most recent Cr 1.81, baseline is ~2, will continue to monitor -nephrology recommendations appreciated #hyponatremia, resolved -Na 125 on admission (asymptomatic), suspect a diuretic-related component, will monitor #HLD, PAD -atorvastatin 80 -Diffuse atherosclerotic disease on arterial Doppler of the right lower extremity, continue home aspirin and atorvastatin -If issues with wound healing can consider vascular consult #HTN -stable -home dose metoprolol w/ parameters -continue diuresis #WHIT -continue at home CPAP #gout -allopurinol, prednisone #constipation -Miralax, Senna #restless legs -ropinirole nightly #depression -sertraline FENGI: heart healthy, carb conscious #DVT ppx: heparin Admission and Anticipated Discharge Date Admission Date: April 03, 2023 Supervising Physician Co-Signing Physician Notes Medical Student Supervision Note: I was personally present during medical student patient encounter and independently interviewed and examined the patient and verified the lester history and physical, reviewed labs and image studies, discussed the case with Favian taylor and agree with the findings and care plan. Diabetic foot ulcer with abscess and osteomyelitis, sepsis on admission -s/p debridement x 2, deep wound cx - MRSA and E coli. Calcaneus cx no growth so far. on vanco/unasyn. ID input pending. - possible primary closure at a later date. - wound vac ordered. - will need SNF Subjective Mr. Swartz is stable. No acute concerns. No fevers, chills, no new focal joint pains. The swelling in his legs has improved over the weekend and his legs feel much mold bunch trimmer. He is able to get to the chair/bedside commode without chest pain or SOB. No dysuria or diarrhea. He is open to potentially going to a half-way facility after discharge although he is worried about a prolonged stay. Review of Systems Review of Systems: All systems reviewed & are unremarkable except as noted in HPI & below Physical Exam Physical Exam: Appearance: sitting upright in bed, NAD Respiratory: CTA BL without rales/rhonchi/wheezing Cardiovascular: RRR, no M/R/G Musculoskeletal: No tenderness to palpation to the spinous processes Skin: Wound care at midline sacral area, no discahrge or erythema Lymphatic: bilateral lower extremity edema improved, R >L. Right leg dressed with wound care. No discharge noted. Results & Data Results & Data Vital Signs (Past 12 Hours) Vital Signs Temp Pulse Pulse Resp BP Pulse Ox O2 Del Method 04/11/23 11:30 Room Air 04/11/23 08:00 Room Air 04/11/23 08:06 36.6 C 65 18 117/70 95 Room Air 04/11/23 03:00 36.7 C 61 18 152/93 H 94 Room Air Diagnostic Findings Laboratory Results WBC 11.94 K/ul (4.8-10.8) H 04/11/23 05:30 RBC 2.68 M/uL (4.70-6.10) L 04/11/23 05:30 Hgb 7.6 g/dl (14.0-18.0) L 04/11/23 05:30 Hct 23.8 % (42.0-52.0) L 04/11/23 05:30 MCV 88.8 fL (80.0-100.0) 04/11/23 05:30 MCH 28.4 pg (25.0-34.0) 04/11/23 05:30 MCHC 31.9 g/dL (32.0-36.0) L 04/11/23 05:30 RDW Std Deviation 47.9 fL (36.4-46.3) H 04/11/23 05:30 RDW Coeff of Diane 15.3 % (11.5-14.5) H 04/11/23 05:30 Plt Count 224 K/uL (130-400) 04/11/23 05:30 MPV 9.5 fL (9.4-12.4) 04/11/23 05:30 Immature Gran % (Auto) 4.2 % 04/08/23 04:40 Neut % (Auto) 67.4 % 04/08/23 04:40 Lymph % (Auto) 17.2 % 04/08/23 04:40 [place] % (Auto) 6.2 % 04/08/23 04:40 Eos % (Auto) 4.5 % 04/08/23 04:40 Baso % (Auto) 0.5 % 04/08/23 04:40 Reticulocyte % (Auto) 1.2 % (0.5-2.0) 04/02/23 23:27 Neut # (Auto) 8.47 K/uL (1.40-6.50) H 04/08/23 04:40 Lymph # (Auto) 2.16 K/uL (1.2-3.4) 04/08/23 04:40 [place] # (Auto) 0.78 K/uL (0.11-0.59) H 04/08/23 04:40 Eos # (Auto) 0.57 K/uL (0-0.50) H 04/08/23 04:40 Baso # (Auto) 0.06 K/uL (0-0.2) 04/08/23 04:40 Reticulocyte # 0.03 10^6/uL (0.02-0.10) 04/02/23 23:27 Immature Gran # (Auto) 0.53 K/uL (0.01-0.20) H 04/08/23 04:40 Absolute Nucleated RBC 0.03 K/uL (0-0.12) 04/11/23 05:30 Nucleated RBC % (auto) 0.3 % 04/11/23 05:30 Neutrophils % (Manual) 77 % 04/09/23 05:15 Lymphocytes % (Manual) 12 % 04/09/23 05:15 Monocytes % (Manual) 6 % 04/09/23 05:15 Eosinophils % (Manual) 3 % 04/09/23 05:15 Basophils % (Manual) 1 % 04/09/23 05:15 Metamyelocytes % (Man) 1 % 04/09/23 05:15 Neutrophils # (Manual) 10.45 K/uL (1.40-6.50) H 04/09/23 05:15 Total Absolute Neuts 10.45 K/uL (1.4-6.5) H 04/09/23 05:15 Lymphocytes # (Manual) 1.63 K/uL (1.2-3.4) 04/09/23 05:15 Total Abs Lymphocytes 1.63 K/uL (1.2-3.4) 04/09/23 05:15 Monocytes # (Manual) 0.81 K/uL (0.11-0.59) H 04/09/23 05:15 Eosinophils # (Manual) 0.41 K/uL (0-0.50) 04/09/23 05:15 Basophils # (Manual) 0.14 K/uL (0-0.2) 04/09/23 05:15 Metamyelocytes # (Man) 0.14 K/uL (0-0) H 04/09/23 05:15 RBC Morphology Unremarkable 04/03/23 11:00 Polychromasia 1+ 04/09/23 05:15 Macrocytosis Present 04/09/23 05:15 Ovalocytes 1+ 04/02/23 23:27 ESR 63 mm/hr (0-20) H 04/02/23 23:27 PT 12.5 Seconds (9.0-12.0) H 04/02/23 23:27 INR 1.2 (0.9-1.1) H 04/02/23 23:27 Sodium 137 mmol/L (136-145) 04/11/23 05:30 Potassium 4.1 mmol/L (3.5-5.1) 04/11/23 05:30 Chloride 97 mmol/L (98-107) L 04/11/23 05:30 Carbon Dioxide 35 mmol/L (21-32) H 04/11/23 05:30 Anion Gap 5 (3-11) 04/11/23 05:30 BUN 56 mg/dl (6-23) H 04/11/23 05:30 Creatinine 1.50 mg/dl (0.6-1.4) H 04/11/23 05:30 Est Cr Clr Drug Dosing 68.1 ml/min 04/11/23 05:30 Est GFR ( Amer) 59.5 ml/min 04/11/23 05:30 Est GFR (Non-Af Amer) 51.3 ml/min 04/11/23 05:30 BUN/Creatinine Ratio 37.3 (10-20) H 04/11/23 05:30 Glucose 106 mg/dl (70-99(Fasting)) H 04/11/23 05:30 POC Glucose 172 mg/dl (70-99) H 04/11/23 12:08 Estimat Average Glucose 235 mg/dl 04/02/23 23:27 Hemoglobin A1c 9.8 % (4.5-5.6) H 04/02/23 23:27 Osmolality 275 mOsm/kg (280-300) L 04/02/23 23:27 Lactate 1.1 mmol/L (0.4-2.0) 04/03/23 02:35 Calcium 8.5 mg/dl (8.6-10.3) L 04/11/23 05:30 Phosphorus 4.5 mg/dl (2.5-4.9) 04/10/23 05:43 Magnesium 1.8 mg/dl (1.7-2.4) 04/06/23 06:15 Iron 33 mcg/dl (35-175) L 04/10/23 05:43 TIBC 203 mcg/dl (250-450) L 04/10/23 05:43 Unsaturated IBC 170 mcg/dl (155-355) 04/10/23 05:43 Transferrin 125 mg/dl (200-360) L 04/02/23 23:27 Transferrin % Sat 16 % (20-50) L 04/10/23 05:43 Ferritin 965.5 ng/ml (8-388) H 04/10/23 05:43 Total Bilirubin 0.5 mg/dl (0.2-1.0) 04/03/23 11:00 AST 31 U/L (13-39) 04/03/23 11:00 ALT 25 U/L (7-52) 04/03/23 11:00 Alkaline Phosphatase 77 U/L (34-104) 04/03/23 11:00 Total Creatine Kinase 19 U/L (30-223) L 04/02/23 23:27 Troponin I High Sens 14.2 pg/ml (0-20) 04/02/23 23:27 C-Reactive Protein 3.92 mg/dl (0-0.5) H 04/10/23 05:43 Total Protein 5.8 gm/dl (6.0-8.3) L 04/03/23 11:00 Albumin 2.8 gm/dl (3.4-5.0) L 04/10/23 05:43 Globulin 3.2 gm/dl (2.5-4.0) 04/03/23 11:00 Albumin/Globulin Ratio 0.8 (0.9-2) L 04/03/23 11:00 Lipase 5 U/L (11-82) L 04/02/23 23:27 Vitamin B12 600 pg/ml (180-914) 04/03/23 11:00 Folate 10.40 ng/ml (>5.38) 04/03/23 11:00 Procalcitonin 2.15 ng/ml (0-0.5) H 04/02/23 23:27 TSH 3.201 uIu/ml (0.300-4.500) 04/02/23 23:27 Urine Color Dark Yellow 04/03/23 Unknown Urine Appearance Clear (Clear) 04/03/23 Unknown Urine pH 5.0 (4.5-7.5) 04/03/23 Unknown Ur Specific [place] 1.018 (1.000-1.030) 04/03/23 Unknown Urine Protein 1+ (Negative) H 04/03/23 Unknown Urine Glucose (UA) Negative (Negative) 04/03/23 Unknown Urine Ketones Trace (Negative) H 04/03/23 Unknown Urine Blood Negative (Negative) 04/03/23 Unknown Urine Nitrite Negative (Negative) 04/03/23 Unknown Urine Bilirubin Negative (Negative) 04/03/23 Unknown Urine Urobilinogen Negative (Negative) 04/03/23 Unknown Ur Leukocyte Esterase Negative (Negative) 04/03/23 Unknown Urine WBC (Auto) 1-5 /hpf (0-5) 04/03/23 Unknown Urine RBC (Auto) 0-4 /hpf (0-4) 04/03/23 Unknown U Hyaline Cast (Auto) 1-5 /lpf (0-5) 04/03/23 Unknown U Epithel Cells (Auto) 5-10 /lpf (0-5) H 04/03/23 Unknown Urine Bacteria (Auto) Negative (Negative) 04/03/23 Unknown Urine Osmolality 312 mOsm/kg (500-800) L 04/03/23 Unknown Ur Random Creatinine 44.6 mg/dl 04/03/23 14:05 Ur Random Sodium < 10 mmol/L 04/03/23 Unknown Stool Occult Bld Scrn Negative (Negative) 04/05/23 09:56 Random Vancomycin 16.5 mcg/ml (10-20) 04/11/23 05:30 SARS-CoV-2, RNA, NAAT NEGATIVE (NEGATIVE) 04/03/23 02:06 Streptococcus sp PCR DETECTED (NotDetected) A 04/03/23 02:30 Bld Cult ID Panel PCR See PCR Comment (NotDetected) 04/03/23 02:30 Blood Type A Positive 04/08/23 07:40 Blood Type Recheck A Positive 04/03/23 11:00 Antibody Screen NEGATIVE 04/08/23 07:40 Crossmatch See Detail 04/08/23 07:40 Impressions Chest X-Ray 04/02/23 22:49 XR chest 1V portable CLINICAL HISTORY: Chest pain, nonspecific COMPARISON STUDY: Chest radiograph May 10, 2022. FINDINGS: There is no pneumothorax or pleural effusion. Cardiomegaly is unchanged. There is pulmonary vascular congestion. No consolidation is identified to suggest pneumonia. IMPRESSION: Cardiomegaly with pulmonary vascular congestion. ACT 112: Negative or not required by law. Electronically signed by: Rafat Powell M.D. 04/03/2023 8:[address] 04/03/23 01:02 Exam(s): CT RIGHT FOOT Without Contrast EXAM: CT Right Lower Extremity Without Intravenous Contrast, Foot CLINICAL HISTORY: Reason for exam: heel ulcer eval for osteo. TECHNIQUE: Axial computed tomography images of the right foot without intravenous contrast. CTDI is 10.38 mGy and DLP is 218.31 mGy-cm. Automated exposure control was utilized for the study. A dose lowering technique was utilized adhering to the principles of ALARA. COMPARISON: No relevant prior studies available. FINDINGS: Bones/joints: There is an oval, approximately 2.5 x 1 cm gas and fluid collection is soft tissue superior to the Achilles tendon insertion upon the calcaneus consistent with abscess. There are calcific fragments as well as 3 tubular 0.4 x 1.6 cm man-made structures within this area. Correlate with surgical history. No acute fracture. No dislocation. Soft tissues: There is subcutaneous emphysema extending over an approximately 4.5 cm transverse by 2.5 cm deep area along the surface of the calcaneus. There is erosion and fragmentation of the calcaneus with gas extending into the bone consistent with osteomyelitis. Severe diffuse subcutaneous edema throughout the foot and ankle. No radiopaque foreign body. IMPRESSION: 1. There is subcutaneous emphysema extending over an approximately 4.5 cm transverse by 2.5 cm deep area along the surface of the calcaneus. There is erosion and fragmentation of the adjacent calcaneus with gas extending into the bone consistent with osteomyelitis. 2. There is an oval, approximately 2.5 x 1 cm gas and fluid collection is soft tissue superior to the Achilles tendon insertion upon the calcaneus consistent with abscess. There are calcific fragments as well as 3 tubular 0.4 x 1.6 cm man-made structures within this area. Correlate with surgical history. Electronically signed by: Elkin Ram MD 04/03/23 02:33 AM Abdomen/Pelvis CT 04/03/23 01:04 Exam(s): CT ABDOMEN + PELVIS Without Contrast EXAM: CT Abdomen and Pelvis Without Intravenous Contrast CLINICAL HISTORY: Reason for exam: abd pain anemia. TECHNIQUE: Axial computed tomography images of the abdomen and pelvis without intravenous contrast. CTDI is 20.72 mGy and DLP is 1176.8 mGy-cm. Automated exposure control was utilized for the study. A dose lowering technique was utilized adhering to the principles of ALARA. COMPARISON: No relevant prior studies available. FINDINGS: Lung bases: Unremarkable. No mass. No consolidation. ABDOMEN: Liver: Unremarkable. Gallbladder and bile ducts: Unremarkable. No calcified stones. No ductal dilation. Pancreas: Unremarkable. No ductal dilation. Spleen: The spleen is enlarged measuring 16.6 cm craniocaudad. Adrenals: Unremarkable. No mass. Kidneys and ureters: The kidneys are unremarkable. No hydronephrosis or ureterolithiasis is seen. Stomach and bowel: Unremarkable. No obstruction. No mucosal thickening. PELVIS: Appendix: The appendix is normal. Bowel loops are nondilated. No acute inflammatory changes are seen involving the bowel. Bladder: Unremarkable. No stones. Reproductive: Unremarkable as visualized. ABDOMEN and PELVIS: Intraperitoneal space: The portal vein is upper normal in diameter measuring 16 mm. No ascites is seen. No free air. Bones/joints: Mild degenerative changes in the spine. No acute fracture or subluxation is seen. Soft tissues: Unremarkable. Vasculature: The abdominal aorta is mildly calcified but nondilated. Lymph nodes: Borderline mild inguinal lymphadenopathy with a 2 mm left side on the right. IMPRESSION: 1. The kidneys are unremarkable. No hydronephrosis or ureterolithiasis is seen. 2. The appendix is normal. Bowel loops are nondilated. No acute inflammatory changes are seen involving the bowel. 3. Splenomegaly. The portal vein is upper normal in diameter. No overt signs of cirrhosis or ascites. Electronically signed by: Elkin Ram MD 04/03/23 02:29 AM Duplex Scan Lower Extremity Artery 04/03/23 15:32 US arterial duplex right lower extremity CLINICAL HISTORY: right foot wound COMPARISON STUDY: Right foot CT 04/03/2023. FINDINGS: Calcified plaque throughout the majority the right lower extremity arterial system. There are monophasic waveforms seen throughout the right lower extremity arterial system. Mildly elevated peak systolic velocities throughout the right lower extremity arterial system most pronounced within the common femoral proximal superficial femoral arteries measuring up to 240 cm/s. There is subcutaneous trace edema within the right lower leg. No areas of arterial occlusion. The distal calf arteries were not visualized due to the patient's skin abnormalities. IMPRESSION: 1. Monophasic and diffusely elevated waveforms seen throughout the right lower extremity arterial system. This suggests diffuse atherosclerotic disease. 2. No high-grade stenosis or occlusion identified within the right lower extremity. ACT 112: Negative or not required by law. Electronically signed by: Dhiraj Bui M.D. 04/03/2023 8:56 PM Foot X-Ray 04/05/23 13:15 XR foot RT min 3V routine CLINICAL HISTORY: Postoperative evaluation. COMPARISON: CT of the right foot April 03, 2023. FINDINGS: Diffuse soft tissue swelling is noted. This is most pronounced overlying the dorsal right forefoot. There are postoperative findings consistent with partial right calcaneal resection with wound debridement. There are no unexpected radiopaque foreign bodies. Specifically, the inferior and posterior aspects of the calcaneus have been resected. IMPRESSION: 1. Postoperative findings consistent with partial right calcaneal resection with wound debridement. 2. Diffuse soft tissue swelling of the right foot. ACT 112: Negative or not required by law. Electronically signed by: Rafat Powell M.D. 04/05/2023 5:37 PM
--- NOTE | 2023-04-11 14:06 | Pharmacy Report ---
Pharmacy PK ABX Note - Date of Service April 11, 2023 - Assessment and Plan Assessment 57 year old M receiving Vancomycin and Unasyn for treatment of osteomyelitis. * Day #7 of antimicrobial therapy. * Renal fxn was worsening x4 days (1.17-->1.32-->1.62-->1.81 two days ago), SCr downtrended yesterday to 1.49, but now trending slightly up again today 1.57 * OR cultures are final now and grew: MRSA (vanc CLAUDIA 1), E. faecalis (amp/vanc sensitive, although vanc CLAUDIA is 2), and E. coli (pansensitive). Prior pharmacist recommended that primary team reach out to infectious disease regarding selection, route and duration of antibiotics. Appears patient prefers salvage therapy with abx rather than amputation per notes. * Patient returned to OR 04/07 for I&D - no growth at this time 04/10: * Scr stabilized today @ 1.56. Will repeat one time dose today. If renal function remains stable, can consider resuming scheduled doses. 04/07 I&D cultures still with no growth. Vancomycin * Current regimen: dosing via level 2nd acutely changing renal function * Random ~15 hour level obtained 04/09/23 AM resulted as 18.4 mcg/mL * Renal function acutely changing - will continue to dose via level for now 04/11: * SCr 1.50. Random level 16.5 mcg/mL today, predicting therapeutic achievement of target AUC/CLAUDIA (488mg/L.hr) * Currently on vancomycin + unasyn. * Plan to resume scheduled doses for today, may require adjustment with further renal improvement * ID has been consulted to assist with therapy/duration. Await further recommendations. Plan * Vancomycin 1000 mg IV q24H * Recheck level in 2-3 days or with renal changes Pharmacy will continue to follow and will adjust dose/frequency as necessary. Thank you. Pharmacy has transitioned to AUC monitoring for vancomycin. AUC/CLAUDIA is the preferred PK/PD target and is associated with decreased risk of nephrotoxicity compared to traditional trough targets.
--- NOTE | 2023-04-11 14:09 | Pharmacy Report ---
Pharmacy Glycemic Short Note 2 - Date of Service April 11, 2023 - Glycemic Short BSG Results (Last 24 hours): 04/10/23 04/10/23 04/11/23 16:16 20:13 05:30 Glucose 106 H POC Glucose 133 H 140 H 04/11/23 04/11/23 07:28 12:08 Glucose POC Glucose 125 H 172 H OUTPATIENT ANTIDIABETIC REGIMEN: * Lantus 50 units SC HS * Humulin-R U-500: 85 units SC breakfast, 75 units SC lunch, 60 units SC dinner * HbA1c: 9.8% (04/02/23) ASSESSMENT: 04/11: * Received total of 107 units of insulin yesterday, 90 units of basal * Fasting 125 mg/dL today- continuing same basal * Prandial BSGs acceptable, all < 180 mg/dL. Will continue current novolog parameters * Continues home prednisone 5 mg daily 04/08: * Received total of 156 units of insulin yesterday, of which 110 units were basal * Fasting BSG much improved, may scale back slightly * Afternoon BSG trending down, will loosen CF/CR 04/07: * Received 152 units of insulin yesterday, 100 units basal + 52 units bolus. BSGs were: 469-515-868-132 mg/dL. Improved. * Remains on vancomycin but meropenem was de-escalated to cefazolin today based on culture results. Kidney function worsening. Going back to the OR today for another I&D of heel. * Fasting BSG again elevated at 223 mg/dL. Did have an uncovered HS snack last night. CDE also stated that patient "nibbles thru day". * Will revert to previous admission basal dosing which was approximately the same total daily dose but with the larger basal dose at HS. This regimen controlled his fasting BSGs. * No change to Novolog today. 04/06: * Inder received 170 units of insulin yesterday, 100 basal + 70 bolus. BSGs were: 205-257-15-156 mg/dL. * Remains on Vancomycin and Meropenem for foot infection. I&D performed 04/04/23. May need another. Remains on Pred 5 mg PO daily from home. * Feel that periop dexamethasone played a role in elevated AM blood sugars yesterday which led to large bolus doses that may have stacked and cause dinner BSG of 71 mg/dL. Will loosen carb ratio slightly today. * Fasting BSG improved to 214 mg/dL this AM but still uncontrolled. * Continue AM basal but increase PM basal scale. 04/05: * Patient received 102 units of insulin yesterday, 90 basal + 12 bolus. BSGs were: [phone] mg/dL. * Did go to the OR yesterday afternoon for an I&D of foot. * Fasting BSG elevated at 298 mg/dL this AM. This is likely related to inadequate insulin dosing as well as perioperative dexamethasone use. * Tightened Novolog this afternoon. Will also increase HS basal dose today. * Continues on Pred 5 mg PO daily. 04/04: * Inder received 144 units of insulin yesterday, 80 basal + 64 bolus. BSGs were: 014-663-075-91 mg/dL. * Given trend down in postprandials, had 2nd shift pharmacist change dinner carb ratio to 4 but RN still administered insulin based on CR of 3. * Loosened Novolog parameters this AM to account for this. Lunchtime did trend down but not as significantly as yesterday. * Fasting BSG improved to 202 mg/dL this AM but still uncontrolled. Patient is NPO today for an I&D of right foot. Will continue with same basal dosing despite NPO status given elevated fasting. * Restarted on home dose of Prednisone 5 mg PO daily. 04/03: * 57 yo M admitted on 04/03/23 secondary to osteomyelitis of right foot secondary to a diabetic foot infection. Pharmacy has been consulted to assist with inpatient glycemic management. Patient is a poorly controlled Type 2 diabetic as an outpatient. Please refer to outpatient regimen and most recent HbA1c above. History of non-compliance with this patient. * Ordered and tolerating diet. Stressors currently include infection requiring Vancomycin and Meropenem. Still awaiting surgical eval. * Will utilize previous admission data to design initial inpatient insulin regimen. * 50 units basal ordered BID by overnight pharmacist. Will scale PM dose in c ase patient is made NPO for surgery tomorrow. * Novolog ACHS per previous admission data. PLAN FOR INPATIENT GLYCEMIC CONTROL: * Hold outpatient U-500 for now * Basal insulin * Lantus 30 units SC AM * Lantus 60 units SC PM * Bolus insulin * NovoLog per scale ACHS or Q6hrs while NPO * Goal Range: Low 110 mg/dL - High 140 mg/dL * Correction Factor: 15 mg/dL/unit * Nutritional / Prandial insulin per carb ratio of 1 unit per 6 grams CHO consumed
[2023-04-11] MEDS: DAKIN'S SOLN 0.125% QUARTER STRENGTH 473 ML BTL EXT SCH (15:56)
[2023-04-11] MEDS: LACTATED RINGER'S 1,000 ML IV SCH (16:39)
--- NOTE | 2023-04-11 18:59 | Infectious Disease Consult ---
Date of Consultation April 11, 2023 Assessment & Plan (1) Bacteremia: (2) Osteomyelitis: (3) Osteomyelitis of right foot: Plan #R foot calcaneal osteomyeliti s/p I+D # Strep bacteremia 04/03 MICRO 04/03 Blood culture alpha hemolytic strep bottles, superficial r foot culture grew MRSA, 04/04 blood cultures no growth. 04/04 wound cx E. coli pans, amp sensitive E. faecalis, MRSA 04/07 OR culture No Growth 57 yo M with with h/o CHF, chronic renal disease, gastroparesis, history of osteomyelitis of the left foot in the past s/p multiple I+Ds and skin grafts , hypertension, hyperlipidemia, diabetes mellitus, history of prior noncompliance with medical regimen who presents to the emergency department with complaints of worsening right lower extremity swelling and difficulty ambulating. Infectious diseases consulted for Rfoot infection. Notably, Patient has history of noncompliance and has not followed up with his recent appointments but [facility]. Upon initial arrival to the ED patient was found to be having poor hygiene with dried stool debris found on the clothes which was cleaned in the ED. Patient was also found to have large right heel diabetic foot ulcer with a black eschar noted along with bilateral lower extremity swelling. Labs notable for WBC 17.5 with neutrophil predominance along with a hemoglobin of 7.4 ESR and C-reactive protein, Cr 04/03 Blood culture alpha hemolytic strep bottles, superficial r foot culture grew MRSA, repeat blood cultures on 04/04 no growth. 04/04 wound cx E. coli pans, amp sensitive E. faecalis, MRSA CT left foot 2.5 x 1 cm gas and fluid collection is soft tissue superior to the Achilles tendon insertion upon the calcaneus consistent with abscess. calcaneus with gas extending into the bone consistent with osteomyelitis. On 04/07 underwent wound debridement with Dr. Card 04/05/23 OR Cultures No growth. Xray postop right calcaneal resection Arterial dopplers RLE No high-grade stenosis or occlusion identified within the right lower extremity. Recommendations: I would favor longer treatment for calcaneal open wound given overall poor blood flow to that area, plan for at least 4 weeks from date of debridement Would recommend change to Daptomycin 8mg/kg IV q24 hours and DC vancomycin for longer treatment DC ampicillin Ceftriaxone 2G IV daily to cover Ecoli and strep Plan for CBC with diff, CMP, ESR, CRP weekly as outpatient Lindsay Pierre MD Infectious Diseases [facility] Consultation Information This patient recommendation is based on a telemedicine consult request which was completed asynchronously through chart review and information provided by the primary physician. The patient was not seen or examined today. The evaluation is consultative in nature and all patient care and treatment decisions can either be accepted or rejected by the patient's primary hospital-based treating physician using their own independent medical judgment for their patient. Vice Principal contact information: Please call [facility] Call Center . (Phone Number For Physician Use Only) Time Spent Reviewing Chart: 31+ minutes History of Present Illness Reason for Consultation: R foot osteomyelitis Requesting Physician: Dr. Grijalva Attending Physician: Sarai Grijalva MD History of Present Illness 57 yo M with with h/o CHF, chronic renal disease, gastroparesis, history of osteomyelitis of the left foot in the past s/p multiple I+Ds and skin grafts , hypertension, hyperlipidemia, diabetes mellitus, history of prior noncompliance with medical regimen who presents to the emergency department with complaints of worsening right lower extremity swelling and difficulty ambulating. Infectious diseases consulted for Rfoot infection. Notably, Patient has history of noncompliance and has not followed up with his recent appointments but reports [facility] Upon initial arrival to the ED patient was found to be having poor hygiene with dried stool debris found on the clothes which was cleaned in the ED. Patient was also found to have large right heel diabetic foot ulcer with a black eschar noted along with bilateral lower extremity swelling. Labs notable for WBC 17.5 with neutrophil predominance along with a hemoglobin of 7.4 Cr 1.5 C-reactive protein 3.9, Cr 04/03 Blood culture alpha hemolytic strep bottles, superficial r foot culture grew MRSA, repeat blood cultures on 04/04 no growth. 04/04 wound cx E. coli pans, amp sensitive E. faecalis, MRSA CT left foot 2.5 x 1 cm gas and fluid collection is soft tissue superior to the Achilles tendon insertion upon the calcaneus consistent with abscess. calcaneus with gas extending into the bone consistent with osteomyelitis. On 04/07 underwent wound debridement with Dr. Card 04/05/23 OR Cultures No growth. Xray postop right calcaneal resection Arterial dopplers RLE No high-grade stenosis or occlusion identified within the right lower extremity Allergies Allergy/AdvReac Type Severity Reaction Status Date / Time hydralazine Allergy Mild Rash Verified 07/11/22 13:18 Calcium Channel Blocking Allergy Rash, Verified 07/11/22 13:18 Agent Dilt swelling semaglutide [From Ozempic] Allergy Abdominal Verified 07/11/22 13:18 Pain amitriptyline AdvReac Mild Muscle Verified 07/11/22 13:18 twitching Home Medications Medication Instructions Recorded Confirmed Type atorvastatin 80 mg tablet 80 mg PO QPM 08/02/18 07/11/22 History magnesium oxide 400 mg PO HS 08/02/18 07/11/22 History metoprolol succinate 50 mg 150 mg PO QPM 08/02/18 07/11/22 History tablet,extended release 24 hr omeprazole 20 mg capsule,delayed 20 mg PO QPM #0 caps 08/14/19 07/11/22 Rx release cholecalciferol (vitamin D3) 25 2,000 units PO QPM 11/19/19 07/11/22 History mcg (1,000 unit) chewable tablet (Vitamin D3) gabapentin 600 mg tablet 600 mg PO TID 12/06/19 07/11/22 History polyethylene glycol 3350 17 17 gm PO BID PRN constipation #510 12/23/19 07/11/22 Rx gram/dose oral powder grams fluticasone propionate 50 1 spray intranasal BID 05/05/20 07/11/22 History mcg/actuation nasal spray,suspension (Flonase Allergy Relief) doxazosin 4 mg tablet 4 mg PO HS 10/01/20 07/11/22 History melatonin 10 mg capsule 10 mg PO HS 05/17/21 07/11/22 History magnesium hydroxide 400 mg/5 mL 15 ml PO DAILY PRN Constipation 07/28/21 07/11/22 History oral suspension (Milk of Magnesia) acetaminophen 500 mg tablet 1,000 mg PO TID PRN Pain 08/08/21 07/11/22 History (Tylenol Extra Strength) ascorbic acid (vitamin C) 500 mg 500 mg PO BID 08/08/21 07/11/22 History tablet [id number] 1 tab PO QAM 08/08/21 07/11/22 History tablet (Multivitamin 50 Plus tablet) cyanocobalamin (vitamin B-12) 1,000 mcg PO HS 08/11/21 07/11/22 History 1,000 mcg tablet hydroxyzine HCl 25 mg tablet 25 mg PO Q6 PRN Itching 08/11/21 07/11/22 History mupirocin 2 % topical ointment 1 applic topical TID PRN flare ups 08/12/21 07/11/22 History aspirin 81 mg capsule 81 mg PO Q12 09/21/21 07/11/22 History metolazone 5 mg tablet 5 mg PO BID #180 tabs 10/28/21 07/11/22 Rx insulin glargine 100 unit/mL (3 50 unit subcut HS 12/20/21 07/11/22 History mL) subcutaneous pen (Lantus Solostar U-100 Insulin) prednisone 5 mg tablet 5 mg PO DAILY 12/20/21 07/11/22 History ferrous sulfate 325 mg (65 mg 325 mg PO Q OTHER DAY 02/04/22 07/11/22 History iron) tablet allopurinol 300 mg tablet 750 mg PO DAILY 04/14/22 07/11/22 History bumetanide 2 mg tablet 4 mg PO BID 04/14/22 07/11/22 History omega 0-xvc-jkw-fish oil 1,000 mg 2 cap PO BID 04/14/22 07/11/22 History (120 mg-180 mg) capsule (Fish Oil) insulin regular hum U-500 conc 500 See Rx Instructions .Route .COMPLEX 06/17/22 07/11/22 History unit/mL subcutaneous soln (Humulin R U-500 (Concentrated) Insulin) Patient History Medical History Chronic back pain Chronic diastolic congestive heart failure Chronic kidney disease Plan for possible dialysis in the future (under surveillance), will be placing fistula in near future preventatively Depression Diabetes IDDM Diastolic CHF Dyslipidemia Encounter for pre-operative examination GERD (gastroesophageal reflux disease) Hypertension Migraine Morbid obesity Osteoarthritis PAD (peripheral artery disease) Sleep apnea CPAP Temporomandibular joint disorder Occasional clicking, no locking Surgical History History of Achilles tendon repair Right Achilles repair (07/16/21): Grade 2 view, MAC#3, ETT 7.5 + PNB at [facility] History of incision and drainage Left foot multiple with skin graft (total of 5) Left foot I&D (10/08/20): LMA#5 at [facility] Left foot I&D, Stimulan beads (02/12/21): MAC at [facility] History of open reduction and internal fixation (ORIF) procedure Left ankle Bimalleolar Fracture (11/2019) History of placement of ear tubes Right ear History of tonsillectomy and adenoidectomy Hx of cataract surgery R/L Hx of colonoscopy [place] teeth extracted Family History Father Diabetes Mother Diabetes Other Coronary heart disease Hypertension No family history of adverse response to anesthesia Denies family history of Crohn's disease Kidney disease Colorectal cancer Ulcerative colitis Social History Smoking Status: Former smoker Tobacco Type: Cigarettes Second Hand Exposure: Yes; Do You Dip or Chew Tobacco: No; Hx Alcohol Use: No Hx Substance Use: No Preferred Language: Irish Communication Ability: Effective Rougher Machine Operator Required: No Beliefs That Will Affect Care: None marital status: Current Living Situation: Alone Current Living Situation Comment: resides with huma current occupational status: employed 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 [employer] Feels Safe at Home: Yes Safety Concerns: Feels Safe At This Time Assistive Devices: Cane and Walker Results & Data Vital Signs (Past 12 Hours) Vital Signs Temp Pulse Pulse Resp BP Pulse Ox O2 Del Method 04/11/23 14:58 36.6 C 62 16 148/71 H 94 Room Air 04/11/23 11:30 Room Air 04/11/23 08:00 Room Air 04/11/23 08:06 36.6 C 65 18 117/70 95 Room Air Laboratory Results Laboratory Results - last 48 hr 04/09/23 04/10/23 04/10/23 20:13 05:43 05:43 WBC RBC Hgb Hct MCV MCH MCHC RDW Std Deviation RDW Coeff of Diane Plt Count MPV Absolute Nucleated RBC Nucleated RBC % (auto) Sodium 135 L Potassium 4.5 Chloride 97 L Carbon Dioxide 29 Anion Gap 9 BUN 57 H Creatinine 1.56 H Est Cr Clr Drug Dosing 66.0 Est GFR ( Amer) 56.7 Est GFR (Non-Af Amer) 48.9 BUN/Creatinine Ratio 36.5 H Glucose 125 H POC Glucose 148 H Calcium 8.4 L Phosphorus 4.5 Iron 33 L TIBC 203 L Unsaturated IBC 170 Transferrin % Sat 16 L Ferritin 965.5 H C-Reactive Protein 3.92 H Albumin 2.8 L Random Vancomycin 18.4 04/10/23 04/10/23 04/10/23 05:43 07:22 11:33 WBC 12.28 H RBC 2.66 L Hgb 7.5 L Hct 23.5 L MCV 88.3 MCH 28.2 MCHC 31.9 L RDW Std Deviation 47.4 H RDW Coeff of Diane 15.1 H Plt Count 208 MPV 9.6 Absolute Nucleated RBC 0.02 Nucleated RBC % (auto) 0.2 Sodium Potassium Chloride Carbon Dioxide Anion Gap BUN Creatinine Est Cr Clr Drug Dosing Est GFR ( Amer) Est GFR (Non-Af Amer) BUN/Creatinine Ratio Glucose POC Glucose 161 H 175 H Calcium Phosphorus Iron TIBC Unsaturated IBC Transferrin % Sat Ferritin C-Reactive Protein Albumin Random Vancomycin 04/10/23 04/10/23 04/11/23 16:16 20:13 05:30 WBC 11.94 H RBC 2.68 L Hgb 7.6 L Hct 23.8 L MCV 88.8 MCH 28.4 MCHC 31.9 L RDW Std Deviation 47.9 H RDW Coeff of Diane 15.3 H Plt Count 224 MPV 9.5 Absolute Nucleated RBC 0.03 Nucleated RBC % (auto) 0.3 Sodium Potassium Chloride Carbon Dioxide Anion Gap BUN Creatinine Est Cr Clr Drug Dosing Est GFR ( Amer) Est GFR (Non-Af Amer) BUN/Creatinine Ratio Glucose POC Glucose 133 H 140 H Calcium Phosphorus Iron TIBC Unsaturated IBC Transferrin % Sat Ferritin C-Reactive Protein Albumin Random Vancomycin 04/11/23 04/11/23 04/11/23 05:30 05:30 07:28 WBC RBC Hgb Hct MCV MCH MCHC RDW Std Deviation RDW Coeff of Diane Plt Count MPV Absolute Nucleated RBC Nucleated RBC % (auto) Sodium 137 Potassium 4.1 Chloride 97 L Carbon Dioxide 35 H Anion Gap 5 BUN 56 H Creatinine 1.50 H Est Cr Clr Drug Dosing 68.1 Est GFR ( Amer) 59.5 Est GFR (Non-Af Amer) 51.3 BUN/Creatinine Ratio 37.3 H Glucose 106 H POC Glucose 125 H Calcium 8.5 L Phosphorus Iron TIBC Unsaturated IBC Transferrin % Sat Ferritin C-Reactive Protein Albumin Random Vancomycin 16.5 04/11/23 04/11/23 12:08 16:50 WBC RBC Hgb Hct MCV MCH MCHC RDW Std Deviation RDW Coeff of Diane Plt Count MPV Absolute Nucleated RBC Nucleated RBC % (auto) Sodium Potassium Chloride Carbon Dioxide Anion Gap BUN Creatinine Est Cr Clr Drug Dosing Est GFR ( Amer) Est GFR (Non-Af Amer) BUN/Creatinine Ratio Glucose POC Glucose 172 H 156 H Calcium Phosphorus Iron TIBC Unsaturated IBC Transferrin % Sat Ferritin C-Reactive Protein Albumin Random Vancomycin Medications Administered Current Inpatient Medications Acetaminophen (Acetaminophen 325 Mg Tab) 650 mg PO Q4H PRN PRN Reason: Pain or Fever Stop: 05/03/23 03:48 Last Admin: 04/03/23 14:03 Dose: 650 mg Al Hydrox/Mg Hydrox/Simethicone (Aluminum/Magnesium Susp 30 Ml Udc) 15 ml PO Q4H PRN PRN Reason: Dyspepsia Stop: 05/03/23 03:48 Allopurinol (Allopurinol 300 Mg Tab) 300 mg PO QAM [facility] Stop: 05/04/23 08:59 Last Admin: 04/11/23 08:12 Dose: 300 mg Aspirin (Aspirin 81 Mg Ectab) 81 mg PO QAM [facility]IA Stop: 05/04/23 08:59 Last Admin: 04/11/23 08:12 Dose: 81 mg Atorvastatin Calcium (Atorvastatin 40 Mg Tab) 80 mg PO QPM [facility]ELIA Stop: 05/03/23 20:59 Last Admin: 04/10/23 21:38 Dose: 80 mg Dextrose (Dextrose 50% 50 Ml Syringe) 25 - 50 ml IV UD PRN; Protocol PRN Reason: Hypoglycemia Protocol Stop: 05/03/23 03:48 Doxazosin Mesylate (Doxazosin Mesylate 4 Mg Tab) 4 mg PO HS [facility]ELIA Stop: 05/04/23 20:59 Last Admin: 04/10/23 21:39 Dose: 4 mg Furosemide (Furosemide 20 Mg Tab) 20 mg PO TIDM [facility]ELIA Stop: 05/11/23 07:59 Last Admin: 04/11/23 16:39 Dose: 20 mg Furosemide (Furosemide 80 Mg Tab) 80 mg PO TIDM LELIA Stop: 05/11/23 07:59 Last Admin: 04/11/23 16:39 Dose: 80 mg Gabapentin (Gabapentin 300 Mg Cap) 300 mg PO TID [facility]ELIA Stop: 05/03/23 14:24 Last Admin: 04/11/23 12:35 Dose: 300 mg Glucagon (Glucagon For Inj 1 Mg Vial) 1 mg SQ UD PRN; Protocol PRN Reason: Hypoglycemia Protocol Stop: 05/03/23 03:48 Glucose (Glucose 10 Tab/Tube) 4 - 8 tab PO UD PRN; Protocol PRN Reason: Hypoglycemia Treatment Stop: 05/03/23 03:48 Glucose (Glucose 40% Gel 15 Gm Tube) 15 - 30 gm PO UD PRN; Protocol PRN Reason: Hypoglycemia Protocol Stop: 05/03/23 03:48 Heparin Sodium (Porcine) (Heparin Sod 5,000 Unit/0.5 Ml Vial) 5,000 units SQ Q8 [facility] Stop: 05/10/23 13:59 Last Admin: 04/11/23 12:33 Dose: 5,000 units Lactated Ringer's (Lr) 1,000 mls @ 15 mls/hr IV .Q24H [facility] Stop: 05/04/23 17:44 Last Admin: 04/11/23 16:39 Dose: Not Given Ampicillin Sodium/Sulbactam Sodium 3,000 mg/ Sodium Chloride 108 mls @ 216 mls/hr IV Q6H [facility] Stop: 05/21/23 09:59 Last Infusion: 04/11/23 17:14 Dose: Infused Iron Sucrose 200 mg/ Sodium (Chloride) 110 mls @ 220 mls/hr IV DAILY [facility] Stop: 04/14/23 09:29 Last Infusion: 04/11/23 08:39 Dose: Infused Vancomycin HCl 1,000 mg/ (Sodium Chloride) 270 mls @ 200 mls/hr IV Q24H [facility]; Protocol Stop: 05/23/23 11:59 Last Infusion: 04/11/23 12:55 Dose: Infused Insulin Aspart (Insulin Aspart Per Unit Charge) 0 units SC ACHS [facility]; Protocol Stop: 05/03/23 11:29 Last Admin: 04/11/23 17:53 Dose: 13 units Insulin Glargine (Lantus Per Unit Charge) 30 units SC DAILY [facility]; Protocol Stop: 05/05/23 08:59 Last Admin: 04/11/23 08:13 Dose: 30 units Insulin Glargine (Lantus Per Unit Charge) 60 units SC HS [facility]; Protocol Stop: 05/08/23 20:59 Last Admin: 04/10/23 21:34 Dose: 60 units Magnesium Hydroxide (Magnesium Hydroxide Susp 30 Ml Udc) 30 ml PO Q12H PRN PRN Reason: Constipation Stop: 05/03/23 03:48 Melatonin (Melatonin 3 Mg Tab) 9 mg PO HS [facility] Stop: 05/03/23 20:59 Last Admin: 04/10/23 21:34 Dose: 9 mg Metoprolol Succinate (Metoprolol Succ 50mg Ext Rel Tab) 150 mg PO QPM [facility] Stop: 05/03/23 20:59 Last Admin: 04/10/23 21:40 Dose: 150 mg Miscellaneous (Carbohydrates For Hypoglycemia ) 15 - 30 gm PO UD PRN PRN Reason: Hypoglycemia Protocol Stop: 05/03/23 03:48 Last Admin: 04/08/23 14:39 Dose: 30 gm Miscellaneous Information (Pharmacy Glycemic Mgmt Consult) 1 each N/A UD PRN PRN Reason: Consult Stop: 05/03/23 03:48 Miscellaneous Information (Vancomycin Consult Active) 1 each N/A UD PRN PRN Reason: Consult Stop: 05/03/23 10:59 Pantoprazole Sodium (Pantoprazole 40 Mg Tab) 40 mg PO QPM [facility] Stop: 05/03/23 20:59 Last Admin: 04/10/23 21:38 Dose: 40 mg Polyethylene Glycol (Polyethylene (Miralax) 17 Gm Pack) 17 gm PO DAILY [facility] Stop: 05/03/23 14:29 Last Admin: 04/11/23 08:10 Dose: 17 gm Prednisone (Pred[facility] 5 Mg Tab) [facility] [place] Stop: 05/04/23 08:59 Last Admin: 04/11/23 08:10 Dose: 5 mg Ropinirole HCl (Ropinirole Hcl 0.25 Mg Tablet) 0.25 mg PO [facility] Stop: 05/04/23 20:59 Last Admin: 04/10/23 21:40 Dose: 0.25 mg Sennosides (Senna 8.6 Mg Tab) 17.2 mg PO QAM [facility] Stop: 05/03/23 14:29 Last Admin: 04/11/23 08:10 Dose: 17.2 mg Sertraline HCl (Sertraline Hcl 50 Mg Tablet) 150 mg PO QAM [facility] Stop: 05/04/23 08:59 Last Admin: 04/11/23 08:10 Dose: 150 mg Sodium Hypochlorite (Dakin's Soln 0.125% Quarter Strength 473 Ml Btl) 1 appln EXT DAILY [facility] Stop: 05/06/23 08:59 Last Admin: 04/11/23 15:56 Dose: Not Given
[2023-04-11] MEDS: MELATONIN 3 MG TAB PO SCH (21:56)
[2023-04-11] MEDS: ATORVASTATIN 40 MG TAB PO SCH (21:56)
[2023-04-11] MEDS: rOPINIRole HCL 0.25 MG TABLET PO SCH (21:56)
[2023-04-11] MEDS: DOXAZosin MESYLATE 4 MG TAB PO SCH (21:56)
[2023-04-11] MEDS: PANTOprazole 40 MG TAB PO SCH (21:57)
[2023-04-11] MEDS: METOPROLOL SUCC 50MG EXT REL TAB PO SCH (21:57)
[2023-04-12] MEDS: AMPICILLIN/SULBACTAM SOD 3,000 MG in 0.9 % SODIUM CHLORIDE 100 ML IV SCH (04:17)
[2023-04-12] MEDS: HEPARIN SOD 5,000 UNIT/0.5 ML VIAL SQ SCH ×2 (06:10→15:25)
[2023-04-12] MEDS ORDERED: DAPTOmycin 1,000 MG in SYRINGE 0 ML IV ONE (06:59)
[2023-04-12] MEDS ORDERED: cefTRIAXone SODIUM 2,000 MG in DEXTROSE 5% 50 ML IV SCH (07:00)
[2023-04-12 07:50] LABS: Hematocrit (blood only) 24.7 % (42.0-52.0); Hemoglobin 7.8 g/dl (14.0-18.0); Mean Corpuscular Hemoglobin 28.1 pg (25.0-34.0); Mean Corpuscular Hgb Conc 31.6 g/dL (32.0-36.0); Mean Corpuscular Volume 88.8 fL (80.0-100.0); Mean Platelet Volume 9.8 fL (9.4-12.4); Nucleated RBC # (auto) 0.03 K/uL (0-0.12); Nucleated RBC % (auto) 0.3 %; Platelet Count 244 K/uL (130-400); RDW Coefficient of Variation 15.8 % (11.5-14.5); RDW Standard Deviation 49.1 fL (36.4-46.3); Red Blood Count 2.78 M/uL (4.70-6.10); White Blood Count 11.04 K/ul (4.8-10.8)
[2023-04-12 08:10] LABS: Calcium 8.6 mg/dl (8.6-10.3); Magnesium 1.5 mg/dl (1.7-2.4); Potassium 3.8 mmol/L (3.5-5.1)
[2023-04-12 08:15] LABS: BUN Creatinine Ratio 35.7 (10-20); Creatinine Clr Calc Pharmacy 71.4 ml/min; Est GFR (Non-African American) 54.4 ml/min
[2023-04-12] MEDS: DAKIN'S SOLN 0.125% QUARTER STRENGTH 473 ML BTL EXT SCH (08:22)
[2023-04-12] MEDS: POLYETHYLENE (MIRALAX) 17 GM PACK PO SCH (08:23)
[2023-04-12] MEDS: allopurinoL 300 MG TAB PO SCH (08:24)
[2023-04-12] MEDS: FUROSEMIDE 20 MG TAB PO SCH ×3 (08:24→17:39)
[2023-04-12] MEDS: FUROSEMIDE 80 MG TAB PO SCH ×3 (08:24→17:39)
[2023-04-12] MEDS: SERTRALINE HCL 50 MG TABLET PO SCH (08:24)
[2023-04-12] MEDS: GABAPENTIN 300 MG CAP PO SCH ×2 (08:24→15:31)
[2023-04-12] MEDS: SENNA 8.6 MG TAB PO SCH (08:24)
[2023-04-12] MEDS: ASPIRIN 81 MG ECTAB PO SCH (08:24)
[2023-04-12] MEDS: predniSONE 5 MG TAB PO SCH (08:24)
[2023-04-12] MEDS: INSULIN ASPART PER UNIT CHARGE SC SCH ×3 (08:59→17:43)
[2023-04-12] MEDS ORDERED: DAPTOmycin 700 MG in SYRINGE 0 ML IV SCH (09:00)
[2023-04-12] MEDS: LANTUS PER UNIT CHARGE SC SCH (09:00)
[2023-04-12] MEDS: IRON SUCROSE 200 MG in 0.9 % SODIUM CHLORIDE 100 ML IV SCH (09:21)
--- NOTE | 2023-04-12 10:28 | Hospitalist Progress Note ---
Date of Service April 12, 2023 Assessment & Plan (1) Diabetic ulcer of right heel: Plan: Summary: Mr. Swartz is a 57 y/o M with PMHx of diastolic CHF, anemia, CKD 4, DM2 (HgbA1C 9.8%), HTN, HLD, WHIT who presented to the ED on 04/03/23 after a week of worsening lower extremity edema and heaviness. #osteomyelitis right foot #diabetic ulcer right heel -s/p 2x debridement, I&D, partial excision calcaneus and delayed primary closure of R foot on 04/04/23 -Podiatry 04/10: Recommended wound vac, potential delayed primary closure, discharge to SNF -Appreciate ID recs: d/c vancomycin and ampicillin. Start ceftriaxone 2g IV daily and daptomycin 8mg/kg IV q 24 for at least 4 weeks since date of debridement (04/04/23) which is 05/02/23. #diastolic heart failure -echo stable from April 2022, EF 60-65% -Furosemide PO 100 TID -monitor I/Os #anemia, normocytic, likely secondary to CKD and iron deficiency -Hgb 7.6 with MCV 88. -S/p RBC transfusions. Hemodynamically stable -Receiving iron infusion and EPO per nephro -multifactorial etiology given CKD and debridements #diabetes mellitus -HgbA1C 9.8% -discussed importance of glycemic control in wound healing, heart disease, cerebrovascular disease #CKD stage 4 -most recent Cr 1.81, baseline is ~2, will continue to monitor -nephrology recommendations appreciated #hyponatremia, resolved -Na 125 on admission (asymptomatic), suspect a diuretic-related component, will monitor #HLD, PAD -atorvastatin 80 -Diffuse atherosclerotic disease on arterial Doppler of the right lower extremity, continue home aspirin and atorvastatin -If issues with wound healing can consider vascular consult #HTN -stable -home dose metoprolol w/ parameters -continue diuresis #WHIT -continue at home CPAP #gout -allopurinol, prednisone #constipation -Miralax, Senna #restless legs -ropinirole nightly #depression -sertraline FENGI: heart healthy, carb conscious #DVT ppx: heparin Admission and Anticipated Discharge Date Admission Date: April 03, 2023 Results & Data Results & Data Vital Signs (Past 12 Hours) Vital Signs Temp Pulse Resp BP Pulse Ox O2 Del Method 04/12/23 09:15 36.5 C 68 16 128/65 92 Room Air 04/12/23 07:15 36.7 C 61 17 135/49 L 94 Room Air
[2023-04-12] MEDS: MAGNESIUM SULFATE / D5W 1 GM/100 ML BAG IV SCH ×2 (11:30→13:30)
--- NOTE | 2023-04-12 13:15 | Discharge Summary ---
Date of Service April 12, 2023 Admission HPI Per Admitting Provider This is a 57-year-old male with past medical history significant history of congestive heart failure, stage IV chronic renal disease, history of gastroparesis, history of osteomyelitis of the left foot in the past, hypert ension, hyperlipidemia, diabetes mellitus, history of prior noncompliance with medical regimen who presents to the emergency department with complaints of worsening lower extremity swelling and difficulty ambulating. Patient reports that he started experiencing increasing fluid retention in his lower extremities and is legs have become heavy so it is difficult for him to walk. Patient also reports having multiple falls secondary to loss of balance recently as well. Patient has history of noncompliance and has not followed up with his recent appointments but [facility] Upon initial arrival to the ED patient was found to be having poor hygiene with dried stool debris found on the clothes which was cleaned in the ED. Patient was also found to have large right heel diabetic foot ulcer with a black eschar noted along with bilateral lower extremity swelling. Patient was also found to have elevated white count of 17.5 with neutrophil predominance along with a hemoglobin of 7.4. Patient's ESR and C-reactive protein were elevated along with a low iron store indicators and low serum sodium level of 125. Patient had blood cultures drawn and patient was treated with empiric antibiotic coverage with meropenem and daptomycin for coverage for resistant Enterobacter and with prior history of MRSA. Admission Exam Per Admitting Provider Patient unkempt and disheveled Head and ENT no thyroid enlargement trachea midline Cardiovascular S1-S2 are normal no S3 Lungs bilateral air entry fair no wheezing Abdomen soft nondistended p no rebound tenderness Extremity shows 2+ bilateral lower extremity edema with right heel ulcer with black eschar noted Neurologically no focal deficits Skin shows right heel ulcer with excoriation no cyanosis Principal Diagnosis osteomyelitis of the right calcaneus Discharge Exam Appearance: upright in bed, NAD, breathing room air Respiratory Normal respiratory effort, no conversational dyspnea, CTA BL without rales/rhonchi/wheezing Cardiovascular RRR, no M/R/G, no cyanosis Psychiatric Appropraite affect, answering questions appropriately Lymphatic edema noted in both lower extremities, R > L Some venous stasis skin changes noted R > L Right foot dressed in gauze/bandage with no discharge or purulence noted Discharge Data Allergies Allergy/AdvReac Type Severity Reaction Status Date / Time hydralazine Allergy Mild Rash Verified 07/11/22 13:18 Calcium Channel Blocking Allergy Rash, Verified 07/11/22 13:18 Agent Dilt swelling semaglutide [From Ozempic] Allergy Abdominal Verified 07/11/22 13:18 Pain amitriptyline AdvReac Mild Muscle Verified 07/11/22 13:18 twitching Consultations 04/03/23 01:12 ED Decision to Admit Stat 04/03/23 09:59 Consult Nephrology Routine 04/03/23 13:21 Consult Podiatry Routine 04/10/23 07:39 Consult Infectious Diseases Routine 04/10/23 21:54 Consult Wound Care Provider Routine Procedures Performed Operation Date: 04/07/23 11:25 Actual Procedures p Right Heel Incision and Drainage(Right) - Kenny Card DPM, MS Ordered Studies 04/03/23 01:02 CT foot RT wo con Stat Exam(s): CT RIGHT FOOT Without Contrast EXAM: CT Right Lower Extremity Without Intravenous Contrast, Foot CLINICAL HISTORY: Reason for exam: heel ulcer eval for osteo. TECHNIQUE: Axial computed tomography images of the right foot without intravenous contrast. CTDI is 10.38 mGy and DLP is 218.31 mGy-cm. Automated exposure control was utilized for the study. A dose lowering technique was utilized adhering to the principles of ALARA. COMPARISON: No relevant prior studies available. FINDINGS: Bones/joints: There is an oval, approximately 2.5 x 1 cm gas and fluid collection is soft tissue superior to the Achilles tendon insertion upon the calcaneus consistent with abscess. There are calcific fragments as well as 3 tubular 0.4 x 1.6 cm man-made structures within this area. Correlate with surgical history. No acute fracture. No dislocation. Soft tissues: There is subcutaneous emphysema extending over an approximately 4.5 cm transverse by 2.5 cm deep area along the surface of the calcaneus. There is erosion and fragmentation of the calcaneus with gas extending into the bone consistent with osteomyelitis. Severe diffuse subcutaneous edema throughout the foot and ankle. No radiopaque foreign body. IMPRESSION: 1. There is subcutaneous emphysema extending over an approximately 4.5 cm transverse by 2.5 cm deep area along the surface of the calcaneus. There is erosion and fragmentation of the adjacent calcaneus with gas extending into the bone consistent with osteomyelitis. 2. There is an oval, approximately 2.5 x 1 cm gas and fluid collection is soft tissue superior to the Achilles tendon insertion upon the calcaneus consistent with abscess. There are calcific fragments as well as 3 tubular 0.4 x 1.6 cm man-made structures within this area. Correlate with surgical history. Electronically signed by: Elkin Ram MD 04/03/23 02:33 AM Dictated:04/03/23232 Transcribed: 04/03/2323204/03/23 01:04 CT abd pelvis wo con Stat Exam(s): CT ABDOMEN + PELVIS Without Contrast EXAM: CT Abdomen and Pelvis Without Intravenous Contrast CLINICAL HISTORY: Reason for exam: abd pain anemia. TECHNIQUE: Axial computed tomography images of the abdomen and pelvis without intravenous contrast. CTDI is 20.72 mGy and DLP is 1176.8 mGy-cm. Automated exposure control was utilized for the study. A dose lowering technique was utilized adhering to the principles of ALARA. COMPARISON: No relevant prior studies available. FINDINGS: Lung bases: Unremarkable. No mass. No consolidation. ABDOMEN: Liver: Unremarkable. Gallbladder and bile ducts: Unremarkable. No calcified stones. No ductal dilation. Pancreas: Unremarkable. No ductal dilation. Spleen: The spleen is enlarged measuring 16.6 cm craniocaudad. Adrenals: Unremarkable. No mass. Kidneys and ureters: The kidneys are unremarkable. No hydronephrosis or ureterolithiasis is seen. Stomach and bowel: Unremarkable. No obstruction. No mucosal thickening. PELVIS: Appendix: The appendix is normal. Bowel loops are nondilated. No acute inflammatory changes are seen involving the bowel. Bladder: Unremarkable. No stones. Reproductive: Unremarkable as visualized. ABDOMEN and PELVIS: Intraperitoneal space: The portal vein is upper normal in diameter measuring 16 mm. No ascites is seen. No free air. Bones/joints: Mild degenerative changes in the spine. No acute fracture or subluxation is seen. Soft tissues: Unremarkable. Vasculature: The abdominal aorta is mildly calcified but nondilated. Lymph nodes: Borderline mild inguinal lymphadenopathy with a 2 mm left side on the right. IMPRESSION: 1. The kidneys are unremarkable. No hydronephrosis or ureterolithiasis is seen. 2. The appendix is normal. Bowel loops are nondilated. No acute inflammatory changes are seen involving the bowel. 3. Splenomegaly. The portal vein is upper normal in diameter. No overt signs of cirrhosis or ascites. Electronically signed by: Elkin Ram MD 04/03/23 02:29 AM Dictated:04/03/23228 Transcribed: 04/03/2322804/03/23 15:32 US arterial duplex LE RT Routine US arterial duplex right lower extremity CLINICAL HISTORY: right foot wound COMPARISON STUDY: Right foot CT 04/03/2023. FINDINGS: Calcified plaque throughout the majority the right lower extremity arterial system. There are monophasic waveforms seen throughout the right lower extremity arterial system. Mildly elevated peak systolic velocities throughout the right lower extremity arterial system most pronounced within the common femoral proximal superficial femoral arteries measuring up to 240 cm/s. There is subcutaneous trace edema within the right lower leg. No areas of arterial occlusion. The distal calf arteries were not visualized due to the patient's ski n abnormalities. IMPRESSION: 1. Monophasic and diffusely elevated waveforms seen throughout the right lower extremity arterial system. This suggests diffuse atherosclerotic disease. 2. No high-grade stenosis or occlusion identified within the right lower extremity. ACT 112: Negative or not required by law. Electronically signed by: Dhiraj Bui M.D. 04/03/2023 8:56 PM Dictated:04/03/232052 Transcribed: 04/03/232052 XR foot RT min 3V routine CLINICAL HISTORY: Postoperative evaluation. COMPARISON: CT of the right foot April 03, 2023. FINDINGS: Diffuse soft tissue swelling is noted. This is most pronounced overlying the dorsal right forefoot. There are postoperative findings consistent with partial right calcaneal resection with wound debridement. There are no unexpected radiopaque foreign bodies. Specifically, the inferior and posterior aspects of the calcaneus have been resected. IMPRESSION: 1. Postoperative findings consistent with partial right calcaneal resection with wound debridement. 2. Diffuse soft tissue swelling of the right foot. ACT 112: Negative or not required by law. Electronically signed by: Rafat Powell M.D. 04/05/2023 5:37 PM Dictated:04/05/231733 Transcribed: 04/05/231733 Diabetes Follow up Diabetes Follow-up Needed for HgbA1c >9% Hospital Course (1) Diabetic ulcer of right heel: Summary: Mr. Swartz is a 57 y/o M with PMHx of diastolic CHF, anemia, CKD 4, DM2 (HgbA1C 9.8%), HTN, HLD, WHIT who presented to the ED on 04/03/23 after a week of worsening lower extremity edema and heaviness, subsequently found to have a RIGHT-sided diabetic heal ulcer with associated osteomyelitis requiring debridement x 2 and IV ABX that will be continued on discharge. #osteomyelitis right foot #diabetic ulcer right heel -presented with over a week of worsening RLE heaviness and pain, found to have heal ulcer that (both on imaging and intraoperatively) was associated w/ osteomyelitis -Required debridement x 2 while here involving partial excision calcaneus and subsequent placement of a wound vac -Initial intraoperative cultures demonstrated pansensitive E. coli, MRSA, Enterococcus -- repeat cultures negative -ID aided while here: Initially on Unasyn/Vanc --> transitioned to daptomycin/CFTX on discharge, will need continued at least through 05/02 -PICC placed prior to discharge #diastolic heart failure -echo stable from April 2022, EF 60-65% -Continue furosemide PO 100 TID -monitor I/Os, daily wt #anemia, normocytic, likely secondary to CKD and iron deficiency -Hgb 7.6 with MCV 88. -S/p RBC transfusions. Hemodynamically stable -Receiving iron infusion and EPO per nephro -multifactorial etiology given CKD and debridements #diabetes mellitus -HgbA1C 9.8% -discussed importance of glycemic control in wound healing, heart disease, cerebrovascular disease #CKD stage 4 -most recent Cr 1.43, baseline is ~2, will continue to monitor -nephrology recommendations appreciated #hyponatremia, resolved -Na 125 on admission (asymptomatic), suspect a diuretic-related component, will monitor #HLD, PAD -atorvastatin 80 -Diffuse atherosclerotic disease on arterial Doppler of the right lower extremity, continue home aspirin and atorvastatin -If issues with wound healing can consider vascular consult #HTN -stable -home dose metoprolol w/ parameters -continue diuresis #WHIT -continue at home CPAP #gout -allopurinol, prednisone #constipation -Miralax, Senna #restless legs -ropinirole nightly #depression -Continue at home sertraline 125 mg FENGI: heart healthy, carb conscious DVT ppx: heparin 5,000 units SQ q8 Dispo:[facility]charge to [facility] Total Time Total Time Spent Total Time Spent (In Minutes): see attending attestation Discharge Plan Discharge Items Patient Disposition: Transfer Inpatient Rehab Fac Reason For Visit: DIABETIC FOOT,CHF,ANEMIA,POSSIBLE OSTEOMYELITIS Discharge Diagnosis: Diabetic Foot Ulcer/ Osteomyelitis Activity: Per Instructions section Non-emergency contact: Surgeon Call non-emergency contact if: you have any medication questions and your symptoms worsen Follow-up/Referrals: Marbella Membreno PA-C [Primary Care Provider] - (PLEASE CALL THE [place] OFFICE TO SCHEDULE A HOSPITAL FOLLOW UP VISIT 7-10 BUSINESS DAYS ) Kenny Card DPM, MS [Physician] - Diet: Carb Count or DM1 Addtl Attending Provider Instructions: Summary: Mr. Swartz is a 57 y/o M with PMHx of diastolic CHF, anemia, CKD 4, DM2 (HgbA1C 9.8%), HTN, HLD, WHIT who presented to the ED on 04/03/23 after a week of worsening lower extremity edema and heaviness, subsequently found to have a RIGHT-sided diabetic heal ulcer with associated osteomyelitis requiring debridement x 2 and IV ABX that will be continued on discharge. #osteomyelitis right foot #diabetic ulcer right heel -presented with over a week of worsening RLE heaviness and pain, found to have heal ulcer that (both on imaging and intraoperatively) was associated w/ osteomyelitis -Required debridement x 2 while here involving partial excision calcaneus and subsequent placement of a wound vac -Initial intraoperative cultures demonstrated pansensitive E. coli, MRSA, Enterococcus -- repeat cultures negative -ID aided while here: Initially on Unasyn/Vanc -->transitioned to daptomycin 1000 mg daily and Rocephin 2000 mg daily, will need continued at least through 05/02 for a total of 6 weeks -PICC placed prior to discharge -Referral placed to follow up with podiatry outpatient #diastolic heart failure -echo stable from April 2022, EF 60-65% -Stopped metolazone and bumex, changed to lasix per nephrology -Continue furosemide PO 100 TID -monitor I/Os, daily wt #anemia, normocytic, likely secondary to CKD and iron deficiency -Hgb 7.6 with MCV 88. -S/p RBC transfusions. Hemodynamically stable -Receiving iron infusion and EPO per nephro -multifactorial etiology given CKD and debridements -continue iron supplementation outpatient #diabetes mellitus -HgbA1C 9.8% -discussed importance of glycemic control in wound healing, heart disease, cerebrovascular disease #CKD stage 4 -most recent Cr 1.43, baseline is ~2, stable #hyponatremia, resolved -Na 125 on admission (asymptomatic), suspect a diuretic-related component, normalized during hospitalization #HLD, PAD -atorvastatin 80 mg daily -Diffuse atherosclerotic disease on arterial Doppler of the right lower extremity, continue home aspirin and atorvastatin #HTN -stable -home dose metoprolol w/ parameters -continue diuresis #WHIT -continue at home CPAP #gout -allopurinol, prednisone #constipation -Miralax, Senna #restless legs -ropinirole nightly #depression -Continue sertraline 125 mg FENGI: heart healthy, carb conscious DVT ppx: heparin 5,000 units SQ q8 Dispo:discharge to [facility] Pending Studies at Discharge: No Stand-Alone Forms: My [facility] Skilled Items Patient informed of condition?: Yes DNR: No Discharge Level of Care: Acute rehab Communicable Disease: No Discharge Prognosis: Stable Lines: PICC Urinary Catheter: No Medications and DC Order Prescriptions: Continued mupirocin 2 % ointment 1 applic topical TID PRN (Reason: flare ups) aspirin 81 mg capsule 81 mg PO Q12 doxazosin 4 mg tablet 4 mg PO HS melatonin 10 mg capsule 10 mg PO HS allopurinol 300 mg tablet 750 mg PO DAILY Rx Instructions: Take 2 & 1/2 tabs polyethylene glycol 3350 17 gram/dose powder 17 gm PO BID PRN (Reason: constipation) Qty: 510 5RF Lantus Solostar U-100 Insulin 100 unit/mL (3 mL) insulin pen 50 unit subcut HS prednisone 5 mg tablet 5 mg PO DAILY magnesium oxide 400 mg Capsule 400 mg PO HS atorvastatin 80 mg Tablet 80 mg PO QPM metoprolol succinate 50 mg Tablet Extended Release 24 Hr 150 mg PO QPM omeprazole 20 mg Capsule,Delayed Release(Dr/Ec) 20 mg PO QPM Qty: 0 0RF gabapentin 600 mg tablet 600 mg PO TID Humulin R U-500 (Conc) Insulin 500 unit/mL solution See Rx Instructions .ROUTE .COMPLEX Rx Instructions: 85 units in am, 75 units with lunch, 60 units with dinner; omega 4-iuv-sjm-fish oil [Fish Oil] 1,000 mg (120 mg-180 mg) capsule 2 cap PO BID cholecalciferol (vitamin D3) [Vitamin D3] 25 mcg (1,000 unit) tablet,chewable 2,000 units PO QPM fluticasone propionate [Flonase Allergy Relief] 50 mcg/actuation [place],Susp ension 1 spray INTRANASAL BID ferrous sulfate 325 mg (65 mg iron) tablet 325 mg PO Q OTHER DAY magnesium hydroxide [Milk of Magnesia] 400 mg/5 mL Suspension 15 ml PO DAILY PRN (Reason: Constipation) acetaminophen [Tylenol Extra Strength] 500 mg Tablet 1,000 mg PO TID PRN (Reason: Pain) ascorbic acid (vitamin C) 500 mg Tablet 500 mg PO BID Multivitamin 50 Plus Tablet 1 tab PO QAM cyanocobalamin (vitamin B-12) 1,000 mcg Tablet 1,000 mcg PO HS hydroxyzine HCl 25 mg Tablet 25 mg PO Q6 PRN (Reason: Itching) Discontinued metolazone 5 mg tablet 5 mg PO BID Qty: 180 3RF bumetanide 2 mg tablet 4 mg PO BID Discharge Orders: Discharge Order (Routine); Ordered 04/12/23 Ordered By: Ralph Maria/Other Patient Handouts: Nutrition for Wound Healing, Managing Type 2 Diabetes Admission Data Admit Date/Time: 04/03/23 01:58 Attending Provider: Sarai Grijalva Admit Provider: Segundo Ramirez Primary Care Provider: Marbella Membreno Other Providers: [facility] ; Kenny Card ; Steve Maddox ; Segundo Ramirez ; Jostin Alvarez ; Debra Roas ; Ayan Story ; Melida Strong ; Jose Lee ; Eun Krishnamurthy ; Lindsay Pierre ; Crystal Urrutia ; Bhargavi Solorzano ; Cristina Jaime ; [facility],Care Supervising Physician Co-Signing Physician Notes Medical Student Supervision Note: I was personally present during medical student patient encounter and independently interviewed and examined the patient and verified the lester history and physical, reviewed labs and image studies, discussed the case with Favian Rowell and agree with the findings and care plan. Diabetic foot ulcer with abscess and osteomyelitis, sepsis on admission -s/p debridement x 2, deep wound cx - MRSA and E coli. Calcaneus cx no growth so far. received vanco/unasyn. Per ID input - discharging on IV dapto and rocephin till 6/20. - possible primary closure at a later date. - wound vac. - discharging to [facility]
== END 2023-04-12 18:02 | DRG 853 ==
LOC: ED 22:27 → SUATTDRO 04-03 01:58 → EDINP 04-03 01:58 → 2E 04-03 03:49 → 3E 04-11 11:15

== ENCOUNTER 2023-04-24 08:07 | Inpatient (IN) ==
[2023-04-24] MEDS ORDERED: SODIUM CHLORIDE 0.9% 1000ML 1,000 ML IV SCH (08:30)
--- NOTE | 2023-04-24 08:42 | Emergency Department Note ---
Impression & Plan Acute dyspnea, Multifocal pneumonia, Coronavirus infection, Anemia requiring transfusions ED Provider Note HISTORY OF PRESENT ILLNESS: Patient is a 57-year-old male presenting with shortness of breath. Patient presents from [facility] where he has been at rehab for the last week and a half. He reports that last night he started feeling short of breath and like he could not catch his breath. He states that he developed a fever up to 101. They gave him multiple doses of Tylenol throughout the night, but his shortness of breath worsened and he had a persistent fever this morning, prompting them to send him to the ER. He denies any history of supplemental oxygen use. Denies any DVT or PE history. Denies any chest pain with the shortness of breath. He states that he was hypoxic at [facility] and they started him on 4 L nasal cannula last night. He is on a baby aspirin daily. He is on IV daptomycin and ceftriaxone for a diabetic foot wound on the right foot which has a wound VAC attached. Patient denies any nausea or vomiting. Denies any abdominal pain or dysuria. ROS: as above PHYSICAL EXAM: Constitutional: Patient appears in no acute distress. HENT: Head: Normocephalic and atraumatic. Eyes: EOMI, PERRL Mouth/Throat: Mucous membranes moist. Neck: Trachea midline. Neck supple. Cardiovascular: RRR, No murmurs, rubs or gallops. Intact distal pulses. Pulmonary/Chest: No respiratory distress. On 4L NC. Coarse breath sounds throughout right lung. Abdominal: BS +. Abdomen soft, no tenderness, rebound or guarding. Musculoskeletal: - RLE: Wound vac present for wound on plantar surface of foot. Club foot present. Skin: Warm and dry. No rash, erythema, pallor or cyanosis Psychiatric: Appropriate mood and affect for situation. Neurological: Alert and keenly responsive. CN II-XII grossly intact, moving all extremities equally and fully. MDM: - Vitals signs showed elevated temperature and hypoxia. Patient placed on supplemental oxygen. - History obtained via patient. Patient presents with shortness of breath. Patient reports he was short of breath last night at rehab. He was reportedly hypoxic last night as well and started on 4 L nasal cannula. He reports that shortness of breath continued in the morning and he has had a fever for the last 24 hours. He is currently being treated for diabetic foot wound with daptomycin and Rocephin. Denies any chest pain. Denies any nausea or vomiting. - Chronic conditions affecting care: CHF; CKD; DM-2; HLD; HTN; PAD - Differential diagnoses include, but are not limited to: anemia; pneumonia; pulmonary embolism; sepsis - Order placed for continuous cardiac monitoring. At this time, monitor showed rate of 75 bpm with normal sinus rhythm, per my interpretation. - External medical records reviewed. Notes from the rehab facility were revie wed. Patient is on daptomycin and Rocephin for his diabetic foot wound. He was scheduled to follow-up with podiatry at [facility] today, but was sent to the emergency department for further evaluation - EKG reviewed by myself showed normal sinus rhythm. Rate 73 bpm. QTc 442. No acute ischemic changes. Noted to have an incomplete right bundle branch block, which has been seen on previous EKGs. - Laboratory workup interpreted by myself showed normal WBC; anemia (Hgb 6.7); hyponatremia (Na 130); baseline CKD (Cr 1.57); elevated BNP (207); elevated procalcitonin (0.59) - UA negative for infection - [facility] respiratory panel positive for coronavirus type 229E. - CXR shows extensive right lung consolidation concerning for pneumonia, per my interpretation. - Blood cultures obtained. - Patient on new oxygen requirement for his hypoxia. - He has previously been on daptomycin and rocephin for his diabetic foot wound. IV vancomycin and rocephin ordered for pulmonary coverage. - Patient consented for blood transfusion. - 2 units PRBC ordered. - Discussion was had with clinical social work therapist about patient's case and need for admission. - Hospitalist, Dr. Claros, consulted for admission. - Patient admitted to [facility] service for further evaluation and management. I provided 33 minutes of critical care time to this patient's care outside of billable procedures. ASSESSMENT AND PLAN: Diagnosis: anemia requiring transfusion; dyspnea; multifocal pneumonia Plan: admit Past Med/Surg History Medical History Chronic back pain Chronic diastolic congestive heart failure Chronic kidney disease Depression Diabetes Diastolic CHF Dyslipidemia Encounter for pre-operative examination GERD (gastroesophageal reflux disease) Hypertension Migraine Morbid obesity Osteoarthritis PAD (peripheral artery disease) Sleep apnea Temporomandibular joint disorder Surgical History History of Achilles tendon repair History of incision and drainage History of open reduction and internal fixation (ORIF) procedure History of placement of ear tubes History of tonsillectomy and adenoidectomy Hx of cataract surgery Hx of colonoscopy [place] teeth extracted Family History Father Diabetes Mother Diabetes Other Coronary heart disease Hypertension No family history of adverse response to anesthesia Denies family history of Crohn's disease Kidney disease Colorectal cancer Ulcerative colitis Social History Smoking Status: Former smoker Tobacco Type: Cigarettes Second Hand Exposure: Yes; Do You Dip or Chew Tobacco: No; Hx Alcohol Use: No Hx Substance Use: No Preferred Language: [place] Communication Ability: Effective Manager Cardiac Required: No Beliefs That Will Affect Care: None marital status: Current Living Situation: Alone Current Living Situation Comment: resides with [facility]a current occupational status: employed 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 Former Feels Safe at Home: Yes Assistive Devices: Cane and Walker Allergies Allergies Allergy/AdvReac Type Severity Reaction Status Date / Time hydralazine Allergy Mild Rash Verified 07/11/22 13:18 Calcium Channel Blocking Allergy Rash, Verified 07/11/22 13:18 Agent Dilt swelling semaglutide [From Ozempic] Allergy Abdominal Verified 07/11/22 13:18 Pain amitriptyline AdvReac Mild Muscle Verified 07/11/22 13:18 twitching Home Meds Home Medications Medication Instructions Recorded Confirmed atorvastatin 80 mg tablet 80 mg PO QPM 08/02/18 04/24/23 magnesium oxide 400 mg PO HS 08/02/18 04/24/23 metoprolol succinate 50 mg 150 mg PO QPM 08/02/18 04/24/23 tablet,extended release 24 hr cholecalciferol (vitamin D3) 25 2,000 units PO QPM 11/19/19 04/24/23 mcg (1,000 unit) chewable tablet (Vitamin D3) gabapentin 600 mg tablet 600 mg PO TID 12/06/19 04/24/23 fluticasone propionate 50 1 spray intranasal BID PRN Allergy 05/05/20 04/24/23 mcg/actuation nasal Symptoms spray,suspension (Flonase Allergy Relief) doxazosin 4 mg tablet 4 mg PO HS 10/01/20 04/24/23 melatonin 10 mg capsule 10 mg PO HS 05/17/21 04/24/23 magnesium hydroxide 400 mg/5 mL 15 ml PO DAILY PRN Constipation 07/28/21 04/24/23 oral suspension (Milk of Magnesia) acetaminophen 500 mg tablet 1,000 mg PO TID PRN Pain 08/08/21 04/24/23 (Tylenol Extra Strength) ascorbic acid (vitamin C) 500 mg 500 mg PO BID 08/08/21 04/24/23 tablet ekfehofzxhnp-mumykone-gxvmre 1 tab PO QAM 08/08/21 04/24/23 tablet (Multivitamin 50 Plus tablet) cyanocobalamin (vitamin B-12) 1,000 mcg PO HS 08/11/21 04/24/23 1,000 mcg tablet hydroxyzine HCl 25 mg tablet 0 mg PO Q6 PRN Itching 08/11/21 04/24/23 aspirin 81 mg capsule 81 mg PO Q12 09/21/21 04/24/23 insulin glargine 100 unit/mL (3 50 unit subcut HS 12/20/21 04/24/23 mL) subcutaneous pen (Lantus Solostar U-100 Insulin) ferrous sulfate 325 mg (65 mg 325 mg PO Q OTHER DAY 02/04/22 04/24/23 iron) tablet allopurinol 300 mg tablet 750 mg PO DAILY 04/14/22 04/24/23 omega 8-mju-rdo-fish oil 1,000 mg 2 cap PO BID 04/14/22 04/24/23 (120 mg-180 mg) capsule (Fish Oil) insulin regular hum U-500 conc 500 See Rx Instructions .Route .COMPLEX 06/17/22 04/24/23 unit/mL subcutaneous soln (Humulin R U-500 (Concentrated) Insulin) Previous Rx's Medication Instructions Recorded omeprazole 20 mg capsule,delayed 20 mg PO QPM #0 caps 08/14/19 release polyethylene glycol 3350 17 17 gm PO BID PRN constipation #510 12/23/19 gram/dose oral powder grams Results & Data (ED) Vital Signs Vital Signs - 24 hr 04/24/23 08:34 04/24/23 08:34 04/24/23 08:42 Temperature 37.8 C H Temperature Source Oral Pulse Rate 73 Pulse Rate [Apical] 72 72 Pulse Rate from SpO2 Sensor Pulse Rhythm Pulse Strength Respiratory Rate 10 L 10 L 11 L Respiratory Effort / Characteristics Short of Breath Short of Breath Blood Pressure 136/87 Blood Pressure Mean 103 Pulse Oximetry 86 L 95 Oxygen Delivery Method Room Air Nasal Cannula Oxygen Flow Rate 4 Sepsis Recent Fever Within 48 Hours Yes Sepsis New/Unexplained Change in Mental Status No Sepsis Action Taken by Nursing No Action Required 04/24/23 08:42 04/24/23 08:39 04/24/23 08:33 Temperature Temperature Source Pulse Rate 70 70 Pulse Rate [Apical] Pulse Rate from SpO2 Sensor 70 Pulse Rhythm Pulse Strength Respiratory Rate 16 Respiratory Effort / Characteristics Blood Pressure Blood Pressure Mean Pulse Oximetry 95 96 Oxygen Delivery Method Nasal Cannula Oxygen Flow Rate 4 Sepsis Recent Fever Within 48 Hours Sepsis New/Unexplained Change in Mental Status Sepsis Action Taken by Nursing 04/24/23 08:40 04/24/23 08:50 04/24/23 09:00 Temperature Temperature Source Pulse Rate 69 71 Pulse Rate [Apical] Pulse Rate from SpO2 Sensor 70 Pulse Rhythm Pulse Strength Respiratory Rate 13 16 Respiratory Effort / Characteristics Blood Pressure 133/62 Blood Pressure Mean 93 Pulse Oximetry 97 Oxygen Delivery Method Oxygen Flow Rate Sepsis Recent Fever Within 48 Hours Sepsis New/Unexplained Change in Mental Status Sepsis Action Taken by Nursing 04/24/23 09:00 04/24/23 09:10 04/24/23 09:20 Temperature Temperature Source Pulse Rate 70 71 73 Pulse Rate [Apical] Pulse Rate from SpO2 Sensor Pulse Rhythm Pulse Strength Respiratory Rate 19 16 17 Respiratory Effort / Characteristics Blood Pressure Blood Pressure Mean Pulse Oximetry 95 Oxygen Delivery Method Oxygen Flow Rate 4 Sepsis Recent Fever Within 48 Hours Sepsis New/Unexplained Change in Mental Status Sepsis Action Taken by Nursing 04/24/23 09:30 04/24/23 09:30 04/24/23 09:40 Temperature Temperature Source Pulse Rate 68 71 Pulse Rate [Apical] Pulse Rate from SpO2 Sensor 68 Pulse Rhythm Pulse Strength Respiratory Rate 15 21 Respiratory Effort / Characteristics Blood Pressure 141/78 H Blood Pressure Mean 88 Pulse Oximetry 97 Oxygen Delivery Method Oxygen Flow Rate Sepsis Recent Fever Within 48 Hours Sepsis New/Unexplained Change in Mental Status Sepsis Action Taken by Nursing 04/24/23 09:59 04/24/23 10:15 Temperature 37.7 C H 37.7 C H Temperature Source Oral Oral Pulse Rate 71 73 Pulse Rate [Apical] Pulse Rate from SpO2 Sensor Pulse Rhythm Regular Pulse Strength Normal Respiratory Rate 21 16 Respiratory Effort / Characteristics Blood Pressure 130/57 L 135/67 Blood Pressure Mean 81 89 Pulse Oximetry 97 100 Oxygen Delivery Method Oxygen Flow Rate 4 Sepsis Recent Fever Within 48 Hours Sepsis New/Unexplained Change in Mental Status Sepsis Action Taken by Nursing Laboratory Data 04/24/23 08:20 04/24/23 08:20 Lab Results 04/24/23 04/24/23 04/24/23 Range/Units 08:20 08:20 08:20 WBC 9.32 (4.8-10.8) K/ul RBC 2.40 L (4.70-6.10) M/uL Hgb 6.7 L* (14.0-18.0) g/dl Hct 21.2 L (42.0-52.0) % MCV 88.3 (80.0-100.0) fL MCH 27.9 (25.0-34.0) pg MCHC 31.6 L (32.0-36.0) g/dL RDW Std Deviation 54.6 H (36.4-46.3) fL RDW Coeff of Diane 17.2 H (11.5-14.5) % Plt Count 206 (130-400) K/uL MPV 9.8 (9.4-12.4) fL Immature Gran % (Auto) 0.5 % Neut % (Auto) 70.7 % Lymph % (Auto) 14.1 % Martin % (Auto) 8.5 % Eos % (Auto) 5.8 % Baso % (Auto) 0.4 % Neut # (Auto) 6.59 H (1.40-6.50) K/uL Lymph # (Auto) 1.31 (1.2-3.4) K/uL Martin # (Auto) 0.79 H (0.11-0.59) K/uL Eos # (Auto) 0.54 H (0-0.50) K/uL Baso # (Auto) 0.04 (0-0.2) K/uL Immature Gran # (Auto) 0.05 (0.01-0.20) K/uL RBC Morphology Unremarkable VBG pH (7.36-7.41) VBG pCO2 (38-50) mmHg VBG pO2 mmHg VBG HCO3 mmol/L VBG O2 Saturation % VBG Base Excess mEq/L Sodium 130 L (136-145) mmol/L Potassium 3.7 (3.5-5.1) mmol/L Chloride 93 L (98-107) mmol/L Carbon Dioxide 28 (21-32) mmol/L Anion Gap 9 (3-11) BUN 57 H (6-23) mg/dl Creatinine 1.57 H (0.6-1.4) mg/dl Est Cr Clr Drug Dosing 63.0 ml/min Est GFR ( Amer) 56.3 ml/min Est GFR (Non-Af Amer) 48.6 ml/min BUN/Creatinine Ratio 36.3 H (10-20) Glucose 186 H (70-99(Fasting)) mg/dl Lactate 1.0 (0.4-2.0) mmol/L Calcium 8.3 L (8.6-10.3) mg/dl Magnesium 1.8 (1.7-2.4) mg/dl Total Bilirubin 0.4 (0.2-1.0) mg/dl Direct Bilirubin 0.2 (0-0.2) mg/dl AST 25 (13-39) U/L ALT 19 (7-52) U/L Alkaline Phosphatase 73 (34-104) U/L Troponin I High Sens 13.4 (0-20) pg/ml B-Natriuretic Peptide (0-100) pg/ml Total Protein 6.6 (6.0-8.3) gm/dl Albumin 2.9 L (3.4-5.0) gm/dl Procalcitonin (0-0.5) ng/ml Urine Color Urine Appearance (Clear) Urine pH (4.5-7.5) Ur Specific [place] (1.000-1.030) Urine Protein (Negative) Urine Glucose (UA) (Negative) Urine Ketones (Negative) Urine Blood (Negative) Urine Nitrite (Negative) Urine Bilirubin (Negative) Urine Urobilinogen (Negative) Ur Leukocyte Esterase (Negative) Urine WBC (Auto) (0-5) /hpf Urine RBC (Auto) (0-4) /hpf U Hyaline Cast (Auto) (0-5) /lpf U Epithel Cells (Auto) (0-5) /lpf Urine Bacteria (Auto) (Negative) Adenovirus (PCR) (NotDetected) B. pertussis DNA (PCR) (NotDetected) B.parapertussis DNA PCR (NotDetected) C. pneumoniae DNA (PCR) (NotDetected) Coronavirus OC43 (PCR) (NotDetected) Coronavirus HKU1 (PCR) (NotDetected) Coronavirus 229E (PCR) (NotDetected) SARS-CoV-2 (PCR) (NotDetected) Coronavirus NL63 (PCR) (NotDetected) Human Metapneumovir PCR (NotDetected) Influenza Type A (PCR) (NotDetected) Influenza Type B (PCR) (NotDetected) M. pneumoniae (PCR) (NotDetected) Parainfluenza 1 (PCR) (NotDetected) Parainfluenza 2 (PCR) (NotDetected) Parainfluenza 3 (PCR) (NotDetected) Parainfluenza 4 (PCR) (NotDetected) RSV (PCR) (NotDetected) Entero/Rhino (PCR) (NotDetected) Blood Type Antibody Screen Crossmatch 04/24/23 04/24/23 04/24/23 Range/Units 08:20 08:20 08:20 WBC (4.8-10.8) K/ul RBC (4.70-6.10) M/uL Hgb (14.0-18.0) g/dl Hct (42.0-52.0) % MCV (80.0-100.0) fL MCH (25.0-34.0) pg MCHC (32.0-36.0) g/dL RDW Std Deviation (36.4-46.3) fL RDW Coeff of Diane (11.5-14.5) % Plt Count (130-400) K/uL MPV (9.4-12.4) fL Immature Gran % (Auto) % Neut % (Auto) % Lymph % (Auto) % Martin % (Auto) % Eos % (Auto) % Baso % (Auto) % Neut # (Auto) (1.40-6.50) K/uL Lymph # (Auto) (1.2-3.4) K/uL Martin # (Auto) (0.11-0.59) K/uL Eos # (Auto) (0-0.50) K/uL Baso # (Auto) (0-0.2) K/uL Immature Gran # (Auto) (0.01-0.20) K/uL RBC Morphology VBG pH (7.36-7.41) VBG pCO2 (38-50) mmHg VBG pO2 mmHg VBG HCO3 mmol/L VBG O2 Saturation % VBG Base Excess mEq/L Sodium (136-145) mmol/L Potassium (3.5-5.1) mmol/L Chloride (98-107) mmol/L Carbon Dioxide (21-32) mmol/L Anion Gap (3-11) BUN (6-23) mg/dl Creatinine (0.6-1.4) mg/dl Est Cr Clr Drug Dosing ml/min Est GFR ( Amer) ml/min Est GFR (Non-Af Amer) ml/min BUN/Creatinine Ratio (10-20) Glucose (70-99(Fasting)) mg/dl Lactate (0.4-2.0) mmol/L Calcium (8.6-10.3) mg/dl Magnesium (1.7-2.4) mg/dl Total Bilirubin (0.2-1.0) mg/dl Direct Bilirubin (0-0.2) mg/dl AST (13-39) U/L ALT (7-52) U/L Alkaline Phosphatase (34-104) U/L Troponin I High Sens (0-20) pg/ml B-Natriuretic Peptide 207 H (0-100) pg/ml Total Protein (6.0-8.3) gm/dl Albumin (3.4-5.0) gm/dl Procalcitonin 0.59 H (0-0.5) ng/ml Urine Color Urine Appearance (Clear) Urine pH (4.5-7.5) Ur Specific [place] (1.000-1.030) Urine Protein (Negative) Urine Glucose (UA) (Negative) Urine Ketones (Negative) Urine Blood (Negative) Urine Nitrite (Negative) Urine Bilirubin (Negative) Urine Urobilinogen (Negative) Ur Leukocyte Esterase (Negative) Urine WBC (Auto) (0-5) /hpf Urine RBC (Auto) (0-4) /hpf U Hyaline Cast (Auto) (0-5) /lpf U Epithel Cells (Auto) (0-5) /lpf Urine Bacteria (Auto) (Negative) Adenovirus (PCR) Not Detected (NotDetected) B. pertussis DNA (PCR) Not Detected (NotDetected) B.parapertussis DNA PCR Not Detected (NotDetected) C. pneumoniae DNA (PCR) Not Detected (NotDetected) Coronavirus OC43 (PCR) Not Detected (NotDetected) Coronavirus HKU1 (PCR) Not Detected (NotDetected) Coronavirus 229E (PCR) DETECTED A* (NotDetected) SARS-CoV-2 (PCR) Not Detected (NotDetected) Coronavirus NL63 (PCR) Not Detected (NotDetected) Human Metapneumovir PCR Not Detected (NotDetected) Influenza Type A (PCR) Not Detected (NotDetected) Influenza Type B (PCR) Not Detected (NotDetected) M. pneumoniae (PCR) Not Detected (NotDetected) Parainfluenza 1 (PCR) Not Detected (NotDetected) Parainfluenza 2 (PCR) Not Detected (NotDetected) Parainfluenza 3 (PCR) Not Detected (NotDetected) Parainfluenza 4 (PCR) Not Detected (NotDetected) RSV (PCR) Not Detected (NotDetected) Entero/Rhino (PCR) Not Detected (NotDetected) Blood Type Antibody Screen Crossmatch 04/24/23 04/24/23 04/24/23 Range/Units 08:41 08:45 Unknown WBC (4.8-10.8) K/ul RBC (4.70-6.10) M/uL Hgb (14.0-18.0) g/dl Hct (42.0-52.0) % MCV (80.0-100.0) fL MCH (25.0-34.0) pg MCHC (32.0-36.0) g/dL RDW Std Deviation (36.4-46.3) fL RDW Coeff of Diane (11.5-14.5) % Plt Count (130-400) K/uL MPV (9.4-12.4) fL Immature Gran % (Auto) % Neut % (Auto) % Lymph % (Auto) % Martin % (Auto) % Eos % (Auto) % Baso % (Auto) % Neut # (Auto) (1.40-6.50) K/uL Lymph # (Auto) (1.2-3.4) K/uL Martin # (Auto) (0.11-0.59) K/uL Eos # (Auto) (0-0.50) K/uL Baso # (Auto) (0-0.2) K/uL Immature Gran # (Auto) (0.01-0.20) K/uL RBC Morphology VBG pH 7.42 H (7.36-7.41) VBG pCO2 43 (38-50) mmHg VBG pO2 39 mmHg VBG HCO3 28 mmol/L VBG O2 Saturation 69.1 % VBG Base Excess 2.9 mEq/L Sodium (136-145) mmol/L Potassium (3.5-5.1) mmol/L Chloride (98-107) mmol/L Carbon Dioxide (21-32) mmol/L Anion Gap (3-11) BUN (6-23) mg/dl Creatinine (0.6-1.4) mg/dl Est Cr Clr Drug Dosing ml/min Est GFR ( Amer) ml/min Est GFR (Non-Af Amer) ml/min BUN/Creatinine Ratio (10-20) Glucose (70-99(Fasting)) mg/dl Lactate (0.4-2.0) mmol/L Calcium (8.6-10.3) mg/dl Magnesium (1.7-2.4) mg/dl Total Bilirubin (0.2-1.0) mg/dl Direct Bilirubin (0-0.2) mg/dl AST (13-39) U/L ALT (7-52) U/L Alkaline Phosphatase (34-104) U/L Troponin I High Sens (0-20) pg/ml B-Natriuretic Peptide (0-100) pg/ml Total Protein (6.0-8.3) gm/dl Albumin (3.4-5.0) gm/dl Procalcitonin (0-0.5) ng/ml Urine Color Yellow Urine Appearance Clear (Clear) Urine pH 6.5 (4.5-7.5) Ur Specific Rain[place] 1.010 (1.000-1.030) Urine Protein Trace H (Negative) Urine Glucose (UA) Negative (Negative) Urine Ketones Negative (Negative) Urine Blood Negative (Negative) Urine Nitrite Negative (Negative) Urine Bilirubin Negative (Negative) Urine Urobilinogen Negative (Negative) Ur Leukocyte Esterase Negative (Negative) Urine WBC (Auto) 0 (0-5) /hpf Urine RBC (Auto) 0-4 (0-4) /hpf U Hyaline Cast (Auto) 5-10 H (0-5) /lpf U Epithel Cells (Auto) 0-5 (0-5) /lpf Urine Bacteria (Auto) Negative (Negative) Adenovirus (PCR) (NotDetected) B. pertussis DNA (PCR) (NotDetected) B.parapertussis DNA PCR (NotDetected) C. pneumoniae DNA (PCR) (NotDetected) Coronavirus OC43 (PCR) (NotDetected) Coronavirus HKU1 (PCR) (NotDetected) Coronavirus 229E (PCR) (NotDetected) SARS-CoV-2 (PCR) (NotDetected) Coronavirus NL63 (PCR) (NotDetected) Human Metapneumovir PCR (NotDetected) Influenza Type A (PCR) (NotDetected) Influenza Type B (PCR) (NotDetected) M. pneumoniae (PCR) (NotDetected) Parainfluenza 1 (PCR) (NotDetected) Parainfluenza 2 (PCR) (NotDetected) Parainfluenza 3 (PCR) (NotDetected) Parainfluenza 4 (PCR) (NotDetected) RSV (PCR) (NotDetected) Entero/Rhino (PCR) (NotDetected) Blood Type A Positive Antibody Screen NEGATIVE Crossmatch See Detail Administered Medications Discontinued Medications Heparin Sodium (Porcine) (Heparin 100 Unit/Ml 5ml Flush) Confirm Administered Dose 5 ml .ROUTE .STK-MED ONE Stop: 04/24/23 09:01 Last Admin: 04/24/23 09:02 Dose: 5 ml Documented By: AMEENA Sodium Chloride (Nss 1000ml) 1,000 mls @ 999 mls/hr IV .Q1H1M LELIA Stop: 04/24/23 09:30 Last Admin: 04/24/23 09:02 Dose: 999 mls/hr Documented By: KV Imaging Data Radiologist's Impression: Chest X-Ray 04/24/23 08:30 XR chest 1V portable CLINICAL HISTORY: Sepsis. COMPARISON STUDY: Chest radiograph April 02, 2023. FINDINGS: A right PICC is in place. Extensive right lung consolidation has developed since chest radiograph of April 02, 2023. There is relative sparing of the right lung base. There is also a focus of left upper lung airspace opacity. Cardiomediastinal silhouette is stable. There is no pneumothorax. No pleural effusion is identified. IMPRESSION: Interval development of extensive right lung consolidation and left upper lobe airspace opacity. The findings favor multifocal pneumonia. Radiographic follow-up to ensure resolution is recommended. ACT 112: Negative or not required by law. Electronically signed by: Rafat Powell M.D. 04/24/2023 9:10 AM Discharge Plan Visit Data Chief Complaint: Shortness of Breath/Dyspnea ED Provider: Maribel Dotson Discharge Problem: Acute dyspnea, Multifocal pneumonia, Coronavirus infection, Anemia requiring transfusions Forms Stand Alone Forms: My [facility] Prescriptions Prescriptions: No Action aspirin 81 mg capsule 81 mg PO Q12 doxazosin 4 mg tablet 4 mg PO HS melatonin 10 mg capsule 10 mg PO HS allopurinol 300 mg tablet 750 mg PO DAILY Rx Instructions: Take 2 & 1/2 tabs. Hasnt been getting this med between [facility] and [facility] polyethylene glycol 3350 17 gram/dose powder 17 gm PO BID PRN (Reason: constipation) Qty: 510 5RF Lantus Solostar U-100 Insulin 100 unit/mL (3 mL) insulin pen 50 unit subcut HS Rx Instructions: Per pt they bumped him up to 70 ([facility]) magnesium oxide 400 mg Capsule 400 mg PO HS atorvastatin 80 mg Tablet 80 mg PO QPM metoprolol succinate 50 mg Tablet Extended Release 24 Hr 150 mg PO QPM omeprazole 20 mg Capsule,Delayed Release(Dr/Ec) 20 mg PO QPM Qty: 0 0RF gabapentin 600 mg tablet 600 mg PO TID Rx Instructions: 2 am and 1 pm Humulin R U-500 (Conc) Insulin 500 unit/mL solution See Rx Instructions .ROUTE .COMPLEX Rx Instructions: 85 units in am, 75 units with lunch, 60 units with dinner; omega 4-qkg-fql-fish oil [Fish Oil] 1,000 mg (120 mg-180 mg) capsule 2 cap PO BID Rx Instructions: 2 am and 2 pm cholecalciferol (vitamin D3) [Vitamin D3] 25 mcg (1,000 unit) tablet,chewable 2,000 units PO QPM fluticasone propionate [Flonase Allergy Relief] 50 mcg/actuation Alvar[place],Suspension 1 spray INTRANASAL BID PRN (Reason: Allergy Symptoms) ferrous sulfate 325 mg (65 mg iron) tablet 325 mg PO Q OTHER DAY magnesium hydroxide [Milk of Magnesia] 400 mg/5 mL Suspension 15 ml PO DAILY PRN (Reason: Constipation) acetaminophen [Tylenol Extra Strength] 500 mg Tablet 1,000 mg PO TID PRN (Reason: Pain) ascorbic acid (vitamin C) 500 mg Tablet 500 mg PO BID Rx Instructions: Per pt he takes once a day Multivitamin 50 Plus Tablet 1 tab PO QAM cyanocobalamin (vitamin B-12) 1,000 mcg Tablet 1,000 mcg PO HS hydroxyzine HCl 25 mg Tablet 0 mg PO Q6 PRN (Reason: Itching) Rx Instructions: Pt is unsure of this medication Referrals Referrals: Marbella Membreno PA-C [Primary Care Provider] -
[2023-04-24] MEDS ORDERED: HEPARIN 100 UNIT/ML 5ML FLUSH ONE (09:00)
[2023-04-24 09:07] LABS: Base Excess VBG 2.9 mEq/L; HCO3 VBG 28 mmol/L; Oxygen Saturation VBG 69.1 %; PCO2 VBG 43 mmHg (38-50); PO2 VBG 39 mmHg; pH VBG 7.42 (7.36-7.41)
--- NOTE | 2023-04-24 09:12 | XRay Report ---
XR chest 1V portable CLINICAL HISTORY: Sepsis. COMPARISON STUDY: Chest radiograph April 02, 2023. FINDINGS: A right PICC is in place. Extensive right lung consolidation has developed since chest radi ograph of April 02, 2023. There is relative sparing of the right lung base. There is also a focus of le ft upper lung airspace opacity. Cardiomediastinal silhouette is stable. There is no pneumothorax. No pleural effusion is identified. IMPRESSION: Interval development of extensive right lung consolidation and left upper lobe airspace o pacity. The findings favor multifocal pneumonia. Radiographic follow-up to ensure resolution is recom mended. ACT 112: Negative or not required by law. Electronically signed by: Rafat Powell M.D. 04/24/2023 9:10 AM
[2023-04-24 09:18] LABS: Hematocrit (blood only) 21.2 % (42.0-52.0); Hemoglobin 6.7 g/dl (14.0-18.0); Mean Corpuscular Hemoglobin 27.9 pg (25.0-34.0); Mean Corpuscular Hgb Conc 31.6 g/dL (32.0-36.0); Mean Corpuscular Volume 88.3 fL (80.0-100.0); Mean Platelet Volume 9.8 fL (9.4-12.4); Platelet Count 206 K/uL (130-400); RDW Coefficient of Variation 17.2 % (11.5-14.5); RDW Standard Deviation 54.6 fL (36.4-46.3); White Blood Count 9.32 K/ul (4.8-10.8)
[2023-04-24 09:22] LABS: Albumin Level 2.9 gm/dl (3.4-5.0); BUN Creatinine Ratio 36.3 (10-20); Bilirubin Direct 0.2 mg/dl (0-0.2); Bilirubin,Total 0.4 mg/dl (0.2-1.0); Calcium 8.3 mg/dl (8.6-10.3); Est GFR (African American) 56.3 ml/min; Est GFR (Non-African American) 48.6 ml/min; Magnesium 1.8 mg/dl (1.7-2.4); Potassium 3.7 mmol/L (3.5-5.1); Total Protein 6.6 gm/dl (6.0-8.3)
[2023-04-24] MEDS ORDERED: SODIUM CHLORIDE 0.9% 250 ML IV PRN (09:26)
[2023-04-24 09:28] LABS: Troponin I High Sensitivity 13.4 pg/ml (0-20)
[2023-04-24 09:29] LABS: Basophils # (auto) 0.04 K/uL (0-0.2); Basophils % (auto) 0.4 %; Eosinophils # (auto) 0.54 K/uL (0-0.50); Eosinophils % (auto) 5.8 %; Immature Granulocytes # (auto) 0.05 K/uL (0.01-0.20); Immature Granulocytes % (auto) 0.5 %; Lymphocytes # (auto) 1.31 K/uL (1.2-3.4); Lymphocytes % (auto) 14.1 %; Monocytes # (auto) 0.79 K/uL (0.11-0.59); Monocytes % (auto) 8.5 %; Neutrophils # (auto) 6.59 K/uL (1.40-6.50); Neutrophils % (auto) 70.7 %; RBC Morphology Unremarkable
[2023-04-24 09:59] LABS: Adenovirus PCR Not Detected (NotDetected); Bordetella parapertussis PCR Not Detected (NotDetected); Bordetella pertussis PCR Not Detected (NotDetected); Chlamydia pneumoniae PCR Not Detected (NotDetected); Coronavirus CoV-2 (COVID19)PCR Not Detected (NotDetected); Coronavirus HKU1 PCR Not Detected (NotDetected); Coronavirus NL63 PCR Not Detected (NotDetected); Coronavirus OC43PCR Not Detected (NotDetected); Human Metapneumovirus PCR Not Detected (NotDetected); Influenza A PCR Not Detected (NotDetected); Influenza B PCR Not Detected (NotDetected); Mycoplasma pneumoniae PCR Not Detected (NotDetected); Parainfluenza Virus 1 PCR Not Detected (NotDetected); Parainfluenza Virus 2 PCR Not Detected (NotDetected); Parainfluenza Virus 3 PCR Not Detected (NotDetected); Parainfluenza Virus 4 PCR Not Detected (NotDetected); Respiratory Syncytial VirusPCR Not Detected (NotDetected); Rhinovirus/Enterovirus PCR Not Detected (NotDetected)
[2023-04-24 10:17] LABS: Coronavirus 229E PCR DETECTED (NotDetected)
[2023-04-24 11:06] LABS: Appearance Urine Clear (Clear); Bacteria Urine Automated Negative (Negative); Bilirubin Urine Negative (Negative); Blood Urine Negative (Negative); Color Urine Yellow; Epithelial Cell Urine Auto 0-5 /lpf (0-5); Glucose Urine UA Negative (Negative); Ketones Urine Negative (Negative); Leukocyte Esterase Urine Negative (Negative); Nitrite Urine Negative (Negative); Protein Urine Trace (Negative); RBC Urine Automated 0-4 /hpf (0-4); Urobilinogen Urine Negative (Negative); WBC Urine Automated 0 /hpf (0-5); pH Urine 6.5 (4.5-7.5)
[2023-04-24] MEDS ORDERED: VANCOMYCIN HCL 2,250 MG in SODIUM CHLORIDE 0.9% 500 ML IV ONE (11:15)
[2023-04-24] MEDS ORDERED: VANCOMYCIN CONSULT ACTIVE PRN ×2 (11:15→15:52)
[2023-04-24] MEDS ORDERED: cefTRIAXone SODIUM 1,000 MG in DEXTROSE 5% AD-VAN 50 ML IV STA (11:16)
--- NOTE | 2023-04-24 11:37 | History & Physical Report ---
Date of Service April 24, 2023 Assessment & Plan (1) Multifocal pneumonia: Plan: Acute hypoxic respiratory failure 2/2 multifocal pneumonia. Suspect iral non- COVID coronovitas with superimposed bacterial pneumonia, acute - CXR: Interval development of extensive right lung consolidation and left upper lobe airspace opacity. The findings favor multifocal pneumonia. Radiographic follow-up to ensure resolution is recommended. No leukocytosis on admission Anemia managed as below VBG 7.4 /39/28 High-sensitivity troponin normal BNP 207, prior 205 stable Pro-Felipe elevated at 0.59 UA uninfected appearing BioFire positive for non-COVID coronavirus Given fevers, elevated procal, and severe illness we will treat for superimposed bacterial pneumonia on non-COVID coronavirus Blood cultures, sputum culture pending Received 1250 cc NSS, ceftriaxone, vancomycin on admission TTE 03/2023: EF 60-65%, no regional wall motion abnormalities, borderline concentric LVH. No significant valvular abnormalities/mild tricuspid regurg Patient has a history of diastolic CHF previously on metolazone/Bumex recently switched to Lasix. Patient is not tachycardic or hypotensive, no leukocytosis. He is febrile. No evidence of shock liver or elevated troponin.He has history of CKD with baseline creatinine 1.31.6, admitting creatinine 1.57. No COSMO on admission. Additional fluids deferred Type II DM, chronic with high insulin requirements and hyperglycemic on admission A1c 9.8% Based on total daily dose of insulin (Humulin 85/75/60 +50 units of Lantus daily) total daily dose of insulin is to [address] patient at a basal of 68 twice daily/CF 5/carb ratio of 2. Given extreme levels of insulin will instead based on basal dose of 50 given as split dose with CF 15/carb ratio 5 and consult pharmacy for assistance in glycemic management Goal BSG [id number] Admitting glucose 186 Type II DM diet CKD, chronic without acute COSMO Creatinine baseline approximately 1.31.6. Admitting creatinine 1.57. Resume Bumex 04/25 Trend BMP daily Osteomyelitis of the right foot, chronic With wound VAC in place Continued on ceftriaxone, daptomycin DIE CAST PATTERNMAKER converted to vancomycin for pulmonary coverage temporarily No signs of worsening/acute infection ? Anemia from oozing. No active bleeding at time of admission Diastolic CHF, chronic no acute exacerbation No evidence of volume overload on admission, relatively euvolemic. Creatinine at baseline Follow ins and outs, follow clinically for signs of heart failure daily He reports he does still take Bumex 4 mg daily, this was not noted on his med rec. Updated. - Low salt diet Acute on chronic anemia 2/2 combination of CKD and iron deficiency,? Some losses from wound VAC Admitting hemoglobin 6.7 with MCV 88 Iron studies pending. If ferritin/transferrin saturation are low, can add Venofer during admission. We will transfuse 1 unit of blood on admission for symptomatic anemia less than 7. Defer iron same day as blood. CBC trended, posttransfusion and every 8 hours x3 H&H daily Hyperlipidemia, chronic Continue atorvastatin 80 Peripheral artery disease, chronic Continue atorvastatin, aspirin Hypertension, chronic reasonably controlled Continue metoprolol Resume Lasix 04/25, no evidence of volume overload on admission WHIT, chronic on sleep Continue CPAP History of gout, chronic without acute exacerbation Continue allopurinol Restless leg syndrome, chronic Continue ropinirole Anxiety/depression, chronic DIE CAST PATTERNMAKER sertraline DVT prophylaxis: Pharmacal prophylaxis deferred in the setting of symptomatic anemia, SCDs Disposition: Medical telemetry for acute symptomatic anemia and superimposed acute hypoxic respiratory failure. If no arrhythmia and clinically stable, can downgrade 04/25 Diet: Type II DM CODE STATUS: Full code (2) Coronavirus infection: (3) Anemia requiring transfusions: (4) PAD (peripheral artery disease): (5) Diabetic ulcer of right heel: (6) Osteomyelitis of right foot: (7) Hyperglycemia: (8) HLD (hyperlipidemia): (9) COSMO (acute kidney injury): (10) Obesity (BMI 30-39.9): (11) WHIT (obstructive sleep apnea): (12) Stage 4 chronic kidney disease due to diabetes mellitus: (13) Diabetes: History of Present Illness Primary Care Provider: Marbella Membreno PA-C Reid is a 57-year-old male with past medical history of CHF, stage IV CKD, gastroparesis, left osteomyelitis of the foot, hypertension, hyperlipidemia, DM 2, prior medication noncompliance who presented to the emergency department with shortness of breath from [facility] where he has been for a week and a half for rehab. He has had progressive shortness of breath, and fever up to 101. Has had worsening fever and shortness of breath despite attempted treatment with Tylenol. Inder reports he started having problems getting a full breath a few days ago, at least the last -1 days. Fevers to 101-102. Oxygen levels dropped and was placed on 4L NC. No chest pain, no chest pressure. +dyspnea, +easy exertional fatigue. Cough is dry and nonproductive. +some chills overnight and is cold, but has had this with low blood levels as well. No lightheadedness/dizziness. No syncope/presycnope. Foot is doing 'OK-amber" Club foot bilat. R foot with woudn sade in place on medial aspect, no bordering erythema/discharge/dehiscence. Pt had 1 episode of bleeding from this previously. +increased SoB when laying flat or bending over. He was told he had diastolic heart failure 'years ago' but followed up with Dr. Artis and was told this was not actually true 'just bad veins' and echo has been normal. Is currently on 4mg of bumex daily for lower edema. Took his morning meds per [facility] this AM. Currently his home insulin regimen is : 50 units lantus qHS, U-500 85am/75noon/65evening. Medical History: Reviewed Medications: Reviewed Surgical History: Reviewed Family history: Reviewed Allergies: Reviewed Social History: Tobacco Code Status: Full Code Allergies Allergy/AdvReac Type Severity Reaction Status Date / Time hydralazine Allergy Mild Rash Verified 07/11/22 13:18 Calcium Channel Blocking Allergy Rash, Verified 07/11/22 13:18 Agent Dilt swelling semaglutide [From Ozempic] Allergy Abdominal Verified 07/11/22 13:18 Pain amitriptyline AdvReac Mild Muscle Verified 07/11/22 13:18 twitching Home Medications Medication Instructions Recorded Confirmed Type atorvastatin 80 mg tablet 80 mg PO QPM 08/02/18 04/24/23 History magnesium oxide 400 mg PO HS 08/02/18 04/24/23 History metoprolol succinate 50 mg 150 mg PO QPM 08/02/18 04/24/23 History tablet,extended release 24 hr omeprazole 20 mg capsule,delayed 20 mg PO QPM #0 caps 08/14/19 04/24/23 Rx release cholecalciferol (vitamin D3) 25 2,000 units PO QPM 11/19/19 04/24/23 History mcg (1,000 unit) chewable tablet (Vitamin D3) gabapentin 600 mg tablet 600 mg PO TID 12/06/19 04/24/23 History polyethylene glycol 3350 17 17 gm PO BID PRN constipation #510 12/23/19 04/24/23 Rx gram/dose oral powder grams fluticasone propionate 50 1 spray intranasal BID PRN Allergy 05/05/20 04/24/23 History mcg/actuation nasal Symptoms spray,suspension (Flonase Allergy Relief) doxazosin 4 mg tablet 4 mg PO HS 10/01/20 04/24/23 History melatonin 10 mg capsule 10 mg PO HS 05/17/21 04/24/23 History magnesium hydroxide 400 mg/5 mL 15 ml PO DAILY PRN Constipation 07/28/21 04/24/23 History oral suspension (Milk of Magnesia) acetaminophen 500 mg tablet 1,000 mg PO TID PRN Pain 08/08/21 04/24/23 History (Tylenol Extra Strength) ascorbic acid (vitamin C) 500 mg 500 mg PO BID 08/08/21 04/24/23 History tablet orabfukhqltk-dukiibcr-zviwue 1 tab PO QAM 08/08/21 04/24/23 History tablet (Multivitamin 50 Plus tablet) cyanocobalamin (vitamin B-12) 1,000 mcg PO HS 08/11/21 04/24/23 History 1,000 mcg tablet hydroxyzine HCl 25 mg tablet 0 mg PO Q6 PRN Itching 08/11/21 04/24/23 History aspirin 81 mg capsule 81 mg PO Q12 09/21/21 04/24/23 History insulin glargine 100 unit/mL (3 50 unit subcut HS 12/20/21 04/24/23 History mL) subcutaneous pen (Lantus Solostar U-100 Insulin) ferrous sulfate 325 mg (65 mg 325 mg PO Q OTHER DAY 02/04/22 04/24/23 History iron) tablet allopurinol 300 mg tablet 750 mg PO DAILY 04/14/22 04/24/23 History omega 0-bje-jpj-fish oil 1,000 mg 2 cap PO BID 04/14/22 04/24/23 History (120 mg-180 mg) capsule (Fish Oil) insulin regular hum U-500 conc 500 See Rx Instructions .Route .COMPLEX 06/17/22 04/24/23 History unit/mL subcutaneous soln (Humulin R U-500 (Concentrated) Insulin) Past Med/Surg History Medical History Chronic back pain Chronic diastolic congestive heart failure Chronic kidney disease Depression Diabetes Diastolic CHF Dyslipidemia Encounter for pre-operative examination GERD (gastroesophageal reflux disease) Hypertension Migraine Morbid obesity Osteoarthritis PAD (peripheral artery disease) Sleep apnea Temporomandibular joint disorder Surgical History History of Achilles tendon repair History of incision and drainage History of open reduction and internal fixation (ORIF) procedure History of placement of ear tubes History of tonsillectomy and adenoidectomy Hx of cataract surgery Hx of colonoscopy [place] teeth extracted Family History Father Diabetes Mother Diabetes Other Coronary heart disease Hypertension No family history of adverse response to anesthesia Denies family history of Crohn's disease Kidney disease Colorectal cancer Ulcerative colitis Social History Smoking Status: Former smoker Tobacco Type: Cigarettes Second Hand Exposure: Yes; Do You Dip or Chew Tobacco: No; Hx Alcohol Use: No Hx Substance Use: No Preferred Language: Pashto Communication Ability: Effective Applications Project Manager Required: No Beliefs That Will Affect Care: None marital status: Current Living Situation: Alone Current Living Situation Comment: resides with huma current occupational status: employed 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 Former Feels Safe at Home: Yes Assistive Devices: Cane and Walker Review of Systems Review of Systems: All systems reviewed & are unremarkable except as noted in HPI & below Physical Exam Physical Exam: General: A&Ox3. NAD. Cooperative. HEENT: Atraumatic, normocephalic. Vision/hearing intact Pulm: Diffuse lower crackles bilaterally. -wheezes, -rales, -rhonchi. Symmetrical chest rise. No increased work of breathing. No respiratory distress. Cardiac: RRR, -mrg. Radial pulses intact and symmetrical. Abdominal: Nontender, nondistended, soft. BS present. Ext: R foot with wound vac in place on medial aspect. Club feet bilaterally. No erythema/warmth/discharge. Sensation grealty diminished bilaterally due to neuropathy. Hip flexion intact bilat. Results & Data Results & Data Vital Signs (Past 12 Hours) Vital Signs Temp Pulse Pulse Resp BP Pulse Ox O2 Del Method 04/24/23 10:15 37.7 C H 73 16 135/67 100 04/24/23 09:59 37.7 C H 71 21 130/57 L 97 04/24/23 09:40 71 21 04/24/23 09:30 68 15 97 04/24/23 09:30 141/78 H 04/24/23 09:20 73 17 95 04/24/23 09:10 71 16 04/24/23 09:00 70 19 04/24/23 09:00 133/62 04/24/23 08:50 71 16 04/24/23 08:40 69 13 97 04/24/23 08:33 70 16 96 04/24/23 08:39 70 04/24/23 08:42 95 Nasal Cannula 04/24/23 08:42 72 11 L 04/24/23 08:34 72 10 L 95 Nasal Cannula 04/24/23 08:34 37.8 C H 73 10 L 136/87 86 L Room Air O2 Flow Rate 04/24/23 10:15 4 04/24/23 09:59 04/24/23 09:40 04/24/23 09:30 04/24/23 09:30 04/24/23 09:20 4 04/24/23 09:10 04/24/23 09:00 04/24/23 09:00 04/24/23 08:50 04/24/23 08:40 04/24/23 08:33 04/24/23 08:39 04/24/23 08:42 4 04/24/23 08:42 04/24/23 08:34 4 04/24/23 08:34 PG Care Time/CCT Total # of Minutes Spent Total Time Spent with Patient: Total time spent is greater than 50% in coordination of care (as documented) at patient's floor/unit and/or counseling patient: Coding Level of Care Code 77010 INT INP/OBS CARE 3/75MIN Diagnoses Multifocal pneumonia J18.9 Coronavirus infection B34.2 Anemia requiring transfusions D64.9 PAD (peripheral artery disease) I73.9 Diabetic ulcer of right heel E11.621; L97.419 Osteomyelitis of right foot M86.9 Hyperglycemia R73.9 HLD (hyperlipidemia) E78.5 COSMO (acute kidney injury) N17.9 Obesity (BMI 30-39.9) E66.9 WHIT (obstructive sleep apnea) G47.33 Stage 4 chronic kidney disease due to diabetes mellitus E11.22; N18.4 Diabetes E11.621; L97.509; Z79.4 Diabetes mellitus type: type 2 Diabetes mellitus terminal superintendent insulin use: with terminal superintendent use Diabetes mellitus complication status: with skin complications Diabetes mellitus complication detail: with foot ulcer (13) Diabetes Diabetes mellitus type: type 2 Diabetes mellitus prison insulin use: with prison use Diabetes mellitus complication status: with skin complications Diabetes mellitus complication detail: with foot ulcer Qualified Code(s): E11.621 - Type 2 diabetes mellitus with foot ulcer; L97.509 - Non-pressure chronic ulcer of other part of unspecified foot with unspecified severity; Z79.4 - senior living (current) use of insulin
[2023-04-24] MEDS ORDERED: ONDANSETRON INJ 2 MG/ML 2 ML VIAL IV STA (14:11)
[2023-04-24] MEDS ORDERED: GLUCAGON FOR INJ 1 MG VIAL SQ PRN (15:52)
[2023-04-24] MEDS ORDERED: FLUTICASONE PROPIONATE NA SPR 16 GM BTL PRN (15:52)
[2023-04-24] MEDS ORDERED: PHARMACY GLYCEMIC MGMT CONSULT PRN (15:52)
[2023-04-24] MEDS ORDERED: DEXTROSE 50% 50 ML SYRINGE IV PRN (15:52)
[2023-04-24] MEDS ORDERED: GLUCOSE 40% GEL 15 GM TUBE PO PRN (15:52)
[2023-04-24] MEDS ORDERED: hydrOXYzine HCl 25 MG TAB PO PRN (15:52)
[2023-04-24] MEDS ORDERED: POLYETHYLENE (MIRALAX) 17 GM PACK PO PRN (15:52)
[2023-04-24] MEDS ORDERED: GLUCOSE 10 TAB/TUBE PO PRN (15:52)
[2023-04-24] MEDS ORDERED: GABAPENTIN 600 MG TAB PO SCH (15:52)
[2023-04-24] MEDS ORDERED: MAGNESIUM HYDROXIDE SUSP 30 ML UDC PO PRN (15:52)
[2023-04-24 17:07] LABS: Hematocrit (blood only) 28.8 % (42.0-52.0); Hemoglobin 9.2 g/dl (14.0-18.0)
[2023-04-24] MEDS: INSULIN ASPART PER UNIT CHARGE SC SCH ×2 (17:33→21:09)
--- NOTE | 2023-04-24 18:00 | Electrocardiogram Report ---
Test Reason : Blood Pressure : / mmHG Vent. Rate : 072 BPM Atrial Rate : 072 BPM P-R Int : 184 ms QRS Dur : 094 ms QT Int : 404 ms P-R-T Axes : 049 -48 045 degrees QTc Int : 442 ms Normal sinus rhythm Low voltage QRS Incomplete right bundle branch block Left anterior fascicular block Cannot rule out Inferior infarct (masked by fascicular block?) , age undetermined Poor R wave progression, consider anterior GA vs. lead placement vs. LVH Abnormal ECG When compared with ECG of 03-APR-2023 01:59, Premature atrial complexes are no longer Present Nonspecific T wave abnormality no longer evident in Anterior leads Confirmed by Gurjit Davila ([id number]) on 04/24/2023 6:00:39 PM Referred By: [facility] Confirmed By:Nikita Davila
[2023-04-24] MEDS: CHOLECALCIFEROL 1,000 UNITS 25 MCG TAB PO SCH (20:57)
[2023-04-24] MEDS: MAGNESIUM OXIDE 400 MG TAB PO SCH (20:57)
[2023-04-24] MEDS: ASCORBIC ACID 500 MG TAB PO SCH (20:57)
[2023-04-24] MEDS: rOPINIRole HCL 0.25 MG TABLET PO SCH (20:57)
[2023-04-24] MEDS: GABAPENTIN 600 MG TAB PO SCH (20:57)
[2023-04-24] MEDS: ASPIRIN 81 MG ECTAB PO SCH (20:57)
[2023-04-24] MEDS: DOXAZosin MESYLATE 4 MG TAB PO SCH (20:57)
[2023-04-24] MEDS: CYANOCOBALAMIN (B-12) 500 MCG TABLET PO SCH (20:57)
[2023-04-24] MEDS: METOPROLOL SUCC 50MG EXT REL TAB PO SCH (20:58)
[2023-04-24] MEDS: MELATONIN 3 MG TAB PO SCH (20:58)
[2023-04-24] MEDS: ATORVASTATIN 40 MG TAB PO SCH (20:58)
[2023-04-24] MEDS ORDERED: LANTUS PER UNIT CHARGE SQ SCH (21:00)
[2023-04-24] MEDS: ACETAMINOPHEN 500 MG TAB PO PRN (21:09)
[2023-04-24] MEDS ORDERED: VANCOMYCIN HCL 1,750 MG in SODIUM CHLORIDE 0.9% 500 ML IV SCH (23:45)
[2023-04-25 00:40] LABS: Hematocrit (blood only) 28.5 % (42.0-52.0)
[2023-04-25] MEDS: FERROUS SULFATE 325 MG TAB PO SCH ×2 (08:08→20:18)
[2023-04-25] MEDS: allopurinoL 300 MG TAB PO SCH (08:09)
[2023-04-25] MEDS: GABAPENTIN 600 MG TAB PO SCH ×2 (08:09→20:18)
[2023-04-25] MEDS: ASCORBIC ACID 500 MG TAB PO SCH ×2 (08:09→20:20)
[2023-04-25] MEDS: ASPIRIN 81 MG ECTAB PO SCH ×2 (08:09→20:19)
[2023-04-25] MEDS: ACETAMINOPHEN 500 MG TAB PO PRN (08:13)
[2023-04-25] MEDS: INSULIN ASPART PER UNIT CHARGE SC SCH ×4 (08:14→20:32)
[2023-04-25 08:17] LABS: Basophils # (auto) 0.04 K/uL (0-0.2); Basophils % (auto) 0.5 %; Eosinophils # (auto) 1.09 K/uL (0-0.50); Eosinophils % (auto) 12.3 %; Hemoglobin 9.7 g/dl (14.0-18.0); Immature Granulocytes # (auto) 0.03 K/uL (0.01-0.20); Immature Granulocytes % (auto) 0.3 %; Lymphocytes # (auto) 1.21 K/uL (1.2-3.4); Lymphocytes % (auto) 13.7 %; Mean Corpuscular Hemoglobin 27.6 pg (25.0-34.0); Mean Corpuscular Hgb Conc 32.3 g/dL (32.0-36.0); Mean Corpuscular Volume 85.5 fL (80.0-100.0); Mean Platelet Volume 9.8 fL (9.4-12.4); Monocytes # (auto) 0.66 K/uL (0.11-0.59); Monocytes % (auto) 7.5 %; Neutrophils % (auto) 65.7 %; Platelet Count 228 K/uL (130-400); RDW Coefficient of Variation 16.6 % (11.5-14.5); RDW Standard Deviation 51.6 fL (36.4-46.3); Red Blood Count 3.51 M/uL (4.70-6.10); White Blood Count 8.83 K/ul (4.8-10.8)
[2023-04-25] MEDS: LANTUS PER UNIT CHARGE SC SCH ×2 (08:19→20:32)
[2023-04-25] MEDS ORDERED: IRON SUCROSE 200 MG in 0.9 % SODIUM CHLORIDE 100 ML IV ONE (08:30)
[2023-04-25 08:35] LABS: Calcium 8.7 mg/dl (8.6-10.3); Est GFR (African American) 66.4 ml/min; Est GFR (Non-African American) 57.2 ml/min; Potassium 3.9 mmol/L (3.5-5.1)
[2023-04-25] MEDS ORDERED: FERROUS SULFATE 325 MG TAB PO SCH (09:00)
[2023-04-25] MEDS: AZITHROMYCIN 500 MG in DEXTROSE 5% 250 ML IV SCH (09:28)
[2023-04-25] MEDS: methylPREDNISolone 40 MG in SYRINGE 0 ML IV SCH ×2 (09:28→16:18)
[2023-04-25] MEDS ORDERED: ALTEPLASE, RECOMBINANT 1 MG/ML 2ML VIAL INSTIL ONE (10:14)
--- NOTE | 2023-04-25 10:16 | Pharmacy Report ---
Pharmacy Glycemic Short Note 2 - Date of Service April 25, 2023 - Glycemic Short BSG Results (Last 24 hours): 04/24/23 04/24/23 04/25/23 16:11 20:21 07:23 Glucose POC Glucose 159 H 131 H 187 H 04/25/23 07:47 Glucose 123 H POC Glucose OUTPATIENT ANTIDIABETIC REGIMEN: * Lantus 50 units SQ HS * U-500 85 units qAM, 75 units with lunch, and 60 units with dinner HbA1C: 9.8% (04/02/23) ASSESSMENT: * Patient is a 57 year old male with DM2 well known to the glycemic pharmacy service admitted with multifocal pneumonia. Pharmacy consulted to assist with glycemic management while inpatient. * BSGs [phone]/dL since admission. Fasting BSG elevated this AM. Received 25 units of basal insulin last evening and 23 units of bolus insulin yesterday. * Receiving IV antibiotics, and methylprednisolone 40mg IV q8h started this AM. Tolerating a diet. * Based upon previous glycemic data, total daily insulin at home and current stressors, will initiate Lantus 40 units SQ BID and continue Novolog 15/5 for now. With addition of steroids, will likely require titration. PLAN FOR INPATIENT GLYCEMIC CONTROL: * Hold outpatient oral diabetes medications * Basal insulin * Lantus 40 units SQ BID * Bolus insulin * NovoLog per scale ACHS or Q6hrs while NPO * Goal Range: Low 110 mg/dL - High 140 mg/dL * Correction Factor: 15 mg/dL/unit * Nutritional / Prandial insulin per carb ratio of 1 unit per 5 grams CHO consumed
--- NOTE | 2023-04-25 13:01 | Hospitalist Progress Note ---
Date of Service April 25, 2023 Assessment & Plan (1) Multifocal pneumonia: Plan: Suspect viral etiology, right greater than left. Parenteral steroid therapy has been ordered. Continue Rocephin and azithromycin as a precaution. Repeat portable chest x-ray again tomorrow, April 26 . Obtain sputum culture if sputum is produced (2) Coronavirus infection: Plan: This does not appear to be SARS-COV 2 (3) Anemia requiring transfusions: Plan: Hemoglobin 6.7 on admission. No overt GI bleeding. He is iron deficient and iron replacement has been started. Hemoglobin up to 9.2 after infusion and most recent hemoglobin 9.0 (4) PAD (peripheral artery disease): Plan: Stable. Continue current medical management (5) Diabetic ulcer of right heel: Plan: Wound VAC in place (6) Osteomyelitis of right foot: Plan: He is currently on intravenous Rocephin and azithromycin (7) Hyperglycemia: Plan: Known type 2 diabetes. Glucose will be aggravated by parenteral steroid therapy. Basal insulin and sliding scale coverage as needed (8) HLD (hyperlipidemia): Plan: Stable. Continue statin therapy (9) COSMO (acute kidney injury): Plan: Monitor intake and output. Serial labs (10) Obesity (BMI 30-39.9): Plan: Weight loss recommended (11) WHIT (obstructive sleep apnea): Plan: Stable. No intervention necessary at this time (12) Stage 4 chronic kidney disease due to diabetes mellitus: Plan: Monitor intake and output. Serial labs (13) Diabetes: Plan: Known type 2 diabetes. ADA diet. Basal insulin therapy. Sliding scale coverage (14) Acute respiratory failure with hypoxia: Plan: Oxygen per nasal cannula to maintain saturation greater than 90%. Wean off as tolerated Plan Anticipate eventual discharge to home Admission and Anticipated Discharge Date Admission Date: April 24, 2023 Subjective Alert and oriented. No acute distress. He has a nonproductive cough and appears to have a viral pneumonia. He is on Rocephin and azithromycin as a precaution. Solu-Medrol has been added. Expect glucose levels to increase while on parenteral steroid therapy. We will repeat portable chest x-ray tomorrow, April 26. He remains on oxygen at 4 L. He is also iron deficient and parenteral iron replacement has been started Review of Systems Review of Systems: Constitutional-no fever or chills ENT-no blurred vision, no double vision, no epistaxis, no sore throat Respiratory-nonproductive cough. No wheezing . No shortness of breath at rest but he does have dyspnea with exertion Cardiac-no palpitations, no chest pain, no syncope GI-no nausea, vomiting, diarrhea, melena, hematochezia -no urinary retention, no urinary incontinence, no dysuria, no hematuria Musculoskeletal-known right heel osteomyelitis with wound VAC Skin-no bruising, no rashes, no pruritus Neuro-no isolated weakness, no paresthesia, no weakness Psych-depressed affect Physical Exam Physical Exam: General-alert and oriented x3, no fevers, no chills HEENT-head atraumatic and normocephalic, pupils equal and reactive to light, extraocular muscles intact Neck-no lymphadenopathy or thyromegaly, trachea midline Chest-dry inspiratory rales right lung field. No wheezing. Cardiac-regular rate and rhythm, normal S1 and S2, no murmurs Abdomen-normal bowel sounds, nontender, no hepatosplenomegaly Extremities-chronic bilateral pedal edema. Open wound right heel with wound VAC in place Neuro-cranial nerves II through XII intact, motor and sensory function within normal limits, strength symmetrical , no focal deficits Psych-depressed affect Results & Data Results & Data Vital Signs (Past 12 Hours) Vital Signs Temp Pulse Resp BP Pulse Ox O2 Del Method O2 Flow Rate 04/25/23 11:43 37.0 C 76 15 126/79 96 Nasal Cannula 4 04/25/23 08:09 37.5 C 73 20 148/73 H 93 Nasal Cannula 4 04/25/23 08:00 Nasal Cannula 4 04/25/23 02:33 36.9 C 73 20 116/86 93 CPAP 4 Laboratory Results 04/25/23 07:47 04/25/23 07:47 PG Care Time/CCT Total # of Minutes Spent Total Time Spent with Patient: Total time spent is greater than 50% in coordination of care (as documented) at patient's floor/unit and/or counseling patient: Coding Level of Care Code 40243 SUB INP/OBS CARE 3/50MIN Diagnoses Multifocal pneumonia J18.9 Coronavirus infection B34.2 Anemia requiring transfusions D64.9 PAD (peripheral artery disease) I73.9 Diabetic ulcer of right heel E11.621; L97.419 Osteomyelitis of right foot M86.9 Hyperglycemia R73.9 HLD (hyperlipidemia) E78.5 COSMO (acute kidney injury) N17.9 Obesity (BMI 30-39.9) E66.9 WHIT (obstructive sleep apnea) G47.33 Stage 4 chronic kidney disease due to diabetes mellitus E11.22; N18.4 Diabetes E11.621; L97.509; Z79.4 Diabetes mellitus type: type 2 Diabetes mellitus ad terminal makeup operator insulin use: with ad terminal makeup operator use Diabetes mellitus complication status: with skin complications Diabetes mellitus complication detail: with foot ulcer Acute respiratory failure with hypoxia J96.01 (13) Diabetes Diabetes mellitus type: type 2 Diabetes mellitus ad terminal makeup operator insulin use: with ad terminal makeup operator use Diabetes mellitus complication status: with skin complications Diabetes mellitus complication detail: with foot ulcer Qualified Code(s): E11.621 - Type 2 diabetes mellitus with foot ulcer; L97.509 - Non-pressure chronic ulcer of other part of unspecified foot with unspecified severity; Z79.4 - terminal make up operator (current) use of insulin
[2023-04-25] MEDS: cefTRIAXone SODIUM 2,000 MG in DEXTROSE 5% 50 ML IV SCH (13:08)
[2023-04-25] MEDS: rOPINIRole HCL 0.25 MG TABLET PO SCH (20:17)
[2023-04-25] MEDS: METOPROLOL SUCC 50MG EXT REL TAB PO SCH (20:18)
[2023-04-25] MEDS: MELATONIN 3 MG TAB PO SCH (20:18)
[2023-04-25] MEDS: MAGNESIUM OXIDE 400 MG TAB PO SCH (20:18)
[2023-04-25] MEDS: CHOLECALCIFEROL 1,000 UNITS 25 MCG TAB PO SCH (20:19)
[2023-04-25] MEDS: ATORVASTATIN 40 MG TAB PO SCH (20:19)
[2023-04-25] MEDS: CYANOCOBALAMIN (B-12) 500 MCG TABLET PO SCH (20:19)
[2023-04-25] MEDS: DOXAZosin MESYLATE 4 MG TAB PO SCH (20:19)
[2023-04-26] MEDS: methylPREDNISolone 40 MG in SYRINGE 0 ML IV SCH ×3 (00:01→17:11)
[2023-04-26 06:31] LABS: Hematocrit (blood only) 25.7 % (42.0-52.0); Hemoglobin 8.3 g/dl (14.0-18.0); Immature Granulocytes # (auto) 0.01 K/uL (0.01-0.20); Immature Granulocytes % (auto) 0.2 %; Lymphocytes # (auto) 0.82 K/uL (1.2-3.4); Lymphocytes % (auto) 16.6 %; Mean Corpuscular Hemoglobin 27.7 pg (25.0-34.0); Mean Corpuscular Hgb Conc 32.3 g/dL (32.0-36.0); Mean Corpuscular Volume 85.7 fL (80.0-100.0); Mean Platelet Volume 9.9 fL (9.4-12.4); Monocytes # (auto) 0.24 K/uL (0.11-0.59); Monocytes % (auto) 4.8 %; Neutrophils # (auto) 3.88 K/uL (1.40-6.50); Neutrophils % (auto) 78.4 %; Platelet Count 231 K/uL (130-400); RDW Standard Deviation 50.3 fL (36.4-46.3); White Blood Count 4.95 K/ul (4.8-10.8)
[2023-04-26 07:01] LABS: Calcium 8.5 mg/dl (8.6-10.3); Est GFR (African American) 74.1 ml/min
[2023-04-26] MEDS: ASPIRIN 81 MG ECTAB PO SCH ×2 (07:44→19:34)
[2023-04-26] MEDS: ASCORBIC ACID 500 MG TAB PO SCH ×2 (07:44→19:33)
[2023-04-26] MEDS: allopurinoL 300 MG TAB PO SCH (07:44)
[2023-04-26] MEDS: FERROUS SULFATE 325 MG TAB PO SCH ×2 (07:45→19:37)
[2023-04-26] MEDS: GABAPENTIN 600 MG TAB PO SCH ×2 (07:45→19:38)
[2023-04-26] MEDS: INSULIN ASPART PER UNIT CHARGE SC SCH ×4 (07:47→20:04)
[2023-04-26] MEDS: LANTUS PER UNIT CHARGE SC SCH (07:48)
[2023-04-26] MEDS: ACETAMINOPHEN 500 MG TAB PO PRN (07:51)
[2023-04-26] MEDS: AZITHROMYCIN 500 MG in DEXTROSE 5% 250 ML IV SCH (07:52)
[2023-04-26] MEDS ORDERED: LANTUS PER UNIT CHARGE SC ONE (08:45)
--- NOTE | 2023-04-26 09:16 | XRay Report ---
XR chest 1V portable CLINICAL HISTORY: viral pneumonia TECHNIQUE: Single frontal radiograph of the chest was obtained. Comparison: Comparison is made to chest radiograph 04/24/2023 FINDINGS: Lines and tubes are stable. The cardiomediastinal silhouette is stable. Right greater than left airsp quin opacity is seen. No evidence of pleural effusion or pneumothorax. IMPRESSION: Redemonstration of right greater than left airspace opacity compatible with history of viral pneumoni a. ACT 112: Negative or not required by law. Electronically signed by: Luis Eduardo Viera M.D. 04/26/2023 9:15 AM
[2023-04-26] MEDS ORDERED: IRON SUCROSE 200 MG in 0.9 % SODIUM CHLORIDE 100 ML IV ONE (09:45)
[2023-04-26] MEDS: ENOXAPARIN INJ 40 MG/0.4 ML SYR SQ SCH (10:17)
[2023-04-26] MEDS ORDERED: INSULIN ASPART PER UNIT CHARGE SC ONE (11:45)
[2023-04-26] MEDS ORDERED: INSULIN HUMAN REGULAR PER UNIT 5 UNITS in SYRINGE 4.95 ML IV ONE (11:50)
[2023-04-26] MEDS: cefTRIAXone SODIUM 2,000 MG in DEXTROSE 5% 50 ML IV SCH (12:07)
--- NOTE | 2023-04-26 12:53 | Pharmacy Report ---
Pharmacy Glycemic Short Note 2 - Date of Service April 26, 2023 - Glycemic Short BSG Results (Last 24 hours): 04/25/23 04/25/23 04/26/23 16:25 20:06 05:34 Glucose 276 H POC Glucose 202 H 247 H 04/26/23 04/26/23 07:26 11:22 Glucose POC Glucose 310 H* 372 H* OUTPATIENT ANTIDIABETIC REGIMEN: * Lantus 50 units SQ HS * U-500 85 units qAM, 75 units with lunch, and 60 units with dinner HbA1C: 9.8% (04/02/23) ASSESSMENT: 04/26: * BSGs elevated the last 24h: 202-247-310. Fasting elevated to 310mg/dL this AM. Received 80 units of basal and 59 units of bolus insulin yesterday. * Steroids continue (methylpred 40mg IV q8h), tolerating diet, and on IV antibiotics. * BSG to 372mg/dL today at lunch. Regular insulin 5 units IVP X 1 in addition to SQ lunch coverage. Novolog parameters tightened from 15/5 to 08/15- may need to tighten further. Lantus increased to 50 units this AM in addition to an HS scale (40/50/60) depending on BSG for an increase in basal up to 35%. 04/25: * Patient is a 57 year old male with DM2 well known to the glycemic pharmacy service admitted with multifocal pneumonia. Pharmacy consulted to assist with glycemic management while inpatient. * BSGs [phone]/dL since admission. Fasting BSG elevated this AM. Received 25 units of basal insulin last evening and 23 units of bolus insulin yesterday. * Receiving IV antibiotics, and methylprednisolone 40mg IV q8h started this AM. Tolerating a diet. * Based upon previous glycemic data, total daily insulin at home and current stressors, will initiate Lantus 40 units SQ BID and continue Novolog 15/5 for now. With addition of steroids, will likely require titration. PLAN FOR INPATIENT GLYCEMIC CONTROL: * Hold outpatient oral diabetes medications * Basal insulin * Lantus 50 units qAM + HS scale (40/50/60) depending on BSG * Bolus insulin * NovoLog per scale ACHS or Q6hrs while NPO * Goal Range: Low 110 mg/dL - High 140 mg/dL * Correction Factor: 10 mg/dL/unit * Nutritional / Prandial insulin per carb ratio of 1 unit per 3 grams CHO consumed
--- NOTE | 2023-04-26 14:25 | Hospitalist Progress Note ---
Date of Service April 26, 2023 Assessment & Plan (1) Multifocal pneumonia: Plan: Viral etiology, right greater than left. Continue parenteral steroid therapy. Continue Rocephin and azithromycin as a precaution. Repeat portable chest x-ray every 2 days. Obtain sputum culture if sputum is produced (2) Coronavirus infection: Plan: This does not appear to be SARS-COV 2 (3) Anemia requiring transfusions: Plan: Hemoglobin 6.7 on admission. No overt GI bleeding. He is iron deficient and iron replacement has been started. Hemoglobin up to 9.2 after infusion and most recent hemoglobin 8.3 (4) PAD (peripheral artery disease): Plan: Stable. Continue current medical management (5) Diabetic ulcer of right heel: Plan: Wound VAC in place. Surgery planned for this for further intervention on the right heel has been canceled. (6) Osteomyelitis of right foot: Plan: He is currently on intravenous Rocephin and azithromycin (7) Hyperglycemia: Plan: Known type 2 diabetes. Diabetes has been aggravated by parenteral steroid therapy. Basal insulin and sliding scale coverage ordered (8) HLD (hyperlipidemia): Plan: Stable. Continue statin therapy (9) COSMO (acute kidney injury): Plan: Monitor intake and output. Serial labs. Resolved (10) Obesity (BMI 30-39.9): Plan: Weight loss recommended (11) WHIT (obstructive sleep apnea): Plan: Stable. No intervention necessary at this time (12) Stage 4 chronic kidney disease due to diabetes mellitus: Plan: Monitor intake and output. Serial labs (13) Diabetes: Plan: Known type 2 diabetes. ADA diet. Basal insulin therapy. Sliding scale coverage (14) Acute respiratory failure with hypoxia: Plan: Oxygen per nasal cannula to maintain saturation greater than 90%. Wean off as tolerated Plan Anticipate eventual discharge to home Admission and Anticipated Discharge Date Admission Date: April 24, 2023 Subjective No significant change. Chest x-ray done today, April 26, shows no improvement in the viral infiltrates yet. Continue parenteral steroid therapy. Aggravation of type 2 diabetes from the IV steroids is to be expected. Pharmacy states there is no other long-acting insulin except for glargine which in my experience does not work well and high doses. Review of Systems Review of Systems: Constitutional-no fever or chills ENT-no blurred vision, no double vision, no epistaxis, no sore throat Respiratory-nonproductive cough. No wheezing . No shortness of breath at rest but he does have dyspnea with exertion Cardiac-no palpitations, no chest pain, no syncope GI-no nausea, vomiting, diarrhea, melena, hematochezia -no urinary retention, no urinary incontinence, no dysuria, no hematuria Musculoskeletal-known right heel osteomyelitis with wound VAC Skin-no bruising, no rashes, no pruritus Neuro-no isolated weakness, no paresthesia, no weakness Psych-depressed affect Physical Exam 2 Physical Exam: General-alert and oriented x3, no fevers, no chills HEENT-head atraumatic and normocephalic, pupils equal and reactive to light, extraocular muscles intact Neck-no lymphadenopathy or thyromegaly, trachea midline Chest-dry inspiratory rales right lung field. No wheezing. Cardiac-regular rate and rhythm, normal S1 and S2, no murmurs Abdomen-normal bowel sounds, nontender, no hepatosplenomegaly Extremities-chronic bilateral pedal edema. Open wound right heel with wound VAC in place Neuro-cranial nerves II through XII intact, motor and sensory function within normal limits, strength symmetrical , no focal deficits Psych-depressed affect Results & Data Results & Data Vital Signs (Past 12 Hours) Vital Signs Temp Pulse Resp BP Pulse Ox O2 Del Method O2 Flow Rate 04/26/23 11:48 36.5 C 60 18 161/89 H 95 Room Air 04/26/23 07:53 36.5 C 63 20 147/77 H 94 Nasal Cannula 4 04/26/23 07:37 Nasal Cannula 4 04/26/23 02:40 36.4 C L 69 20 145/63 H 95 CPAP PG Care Time/CCT Total # of Minutes Spent Total Time Spent with Patient: Total time spent is greater than 50% in coordination of care (as documented) at patient's floor/unit and/or counseling patient: Coding Level of Care Code 42035 SUB INP/OBS CARE 3/50MIN Diagnoses Multifocal pneumonia J18.9 Coronavirus infection B34.2 Anemia requiring transfusions D64.9 PAD (peripheral artery disease) I73.9 Diabetic ulcer of right heel E11.621; L97.419 Osteomyelitis of right foot M86.9 Hyperglycemia R73.9 HLD (hyperlipidemia) E78.5 COSMO (acute kidney injury) N17.9 Obesity (BMI 30-39.9) E66.9 WHIT (obstructive sleep apnea) G47.33 Stage 4 chronic kidney disease due to diabetes mellitus E11.22; N18.4 Diabetes E11.621; L97.509; Z79.4 Diabetes mellitus type: type 2 Diabetes mellitus detention insulin use: with terminal superintendent use Diabetes mellitus complication status: with skin complications Diabetes mellitus complication detail: with foot ulcer Acute respiratory failure with hypoxia J96.01 (13) Diabetes Diabetes mellitus type: type 2 Diabetes mellitus terminal superintendent insulin use: with terminal superintendent use Diabetes mellitus complication status: with skin complications Diabetes mellitus complication detail: with foot ulcer Qualified Code(s): E11.621 - Type 2 diabetes mellitus with foot ulcer; L97.509 - Non-pressure chronic ulcer of other part of unspecified foot with unspecified severity; Z79.4 - retirement (current) use of insulin
[2023-04-26] MEDS: CHOLECALCIFEROL 1,000 UNITS 25 MCG TAB PO SCH (19:35)
[2023-04-26] MEDS: ATORVASTATIN 40 MG TAB PO SCH (19:35)
[2023-04-26] MEDS: DOXAZosin MESYLATE 4 MG TAB PO SCH (19:36)
[2023-04-26] MEDS: CYANOCOBALAMIN (B-12) 500 MCG TABLET PO SCH (19:36)
[2023-04-26] MEDS: MAGNESIUM OXIDE 400 MG TAB PO SCH (19:38)
[2023-04-26] MEDS: MELATONIN 3 MG TAB PO SCH (19:39)
[2023-04-26] MEDS: METOPROLOL SUCC 50MG EXT REL TAB PO SCH (19:39)
[2023-04-26] MEDS: rOPINIRole HCL 0.25 MG TABLET PO SCH (19:40)
[2023-04-26] MEDS ORDERED: LANTUS PER UNIT CHARGE SC SCH ×2 (21:00)
[2023-04-27] MEDS: INSULIN ASPART PER UNIT CHARGE SC SCH ×6 (01:11→21:56)
[2023-04-27] MEDS: methylPREDNISolone 40 MG in SYRINGE 0 ML IV SCH ×3 (01:12→17:02)
[2023-04-27 06:31] LABS: Hemoglobin 8.8 g/dl (14.0-18.0); Immature Granulocytes # (auto) 0.03 K/uL (0.01-0.20); Immature Granulocytes % (auto) 0.4 %; Lymphocytes # (auto) 0.94 K/uL (1.2-3.4); Lymphocytes % (auto) 13.8 %; Mean Corpuscular Hemoglobin 27.1 pg (25.0-34.0); Mean Corpuscular Hgb Conc 31.4 g/dL (32.0-36.0); Mean Corpuscular Volume 86.2 fL (80.0-100.0); Mean Platelet Volume 9.5 fL (9.4-12.4); Monocytes # (auto) 0.37 K/uL (0.11-0.59); Monocytes % (auto) 5.4 %; Neutrophils # (auto) 5.48 K/uL (1.40-6.50); Neutrophils % (auto) 80.4 %; Platelet Count 290 K/uL (130-400); RDW Standard Deviation 50.2 fL (36.4-46.3); Red Blood Count 3.25 M/uL (4.70-6.10); White Blood Count 6.82 K/ul (4.8-10.8)
[2023-04-27 06:47] LABS: BUN Creatinine Ratio 47.2 (10-20); Calcium 8.9 mg/dl (8.6-10.3); Creatinine Clr Calc Pharmacy 78.3 ml/min; Est GFR (African American) 72.7 ml/min; Est GFR (Non-African American) 62.7 ml/min; Potassium 4.1 mmol/L (3.5-5.1)
[2023-04-27] MEDS: GABAPENTIN 600 MG TAB PO SCH ×2 (07:53→22:01)
[2023-04-27] MEDS: allopurinoL 300 MG TAB PO SCH (07:53)
[2023-04-27] MEDS: ASPIRIN 81 MG ECTAB PO SCH ×2 (07:53→22:02)
[2023-04-27] MEDS: FERROUS SULFATE 325 MG TAB PO SCH ×2 (07:54→22:00)
[2023-04-27] MEDS: ENOXAPARIN INJ 40 MG/0.4 ML SYR SQ SCH (07:54)
[2023-04-27] MEDS: ASCORBIC ACID 500 MG TAB PO SCH ×2 (07:54→22:01)
[2023-04-27] MEDS: AZITHROMYCIN 500 MG in DEXTROSE 5% 250 ML IV SCH (07:57)
[2023-04-27] MEDS: ACETAMINOPHEN 500 MG TAB PO PRN (07:58)
[2023-04-27] MEDS: LANTUS PER UNIT CHARGE SC SCH ×2 (08:50→21:56)
[2023-04-27] MEDS ORDERED: IRON SUCROSE 200 MG in 0.9 % SODIUM CHLORIDE 100 ML IV ONE (09:38)
[2023-04-27] MEDS: cefTRIAXone SODIUM 2,000 MG in DEXTROSE 5% 50 ML IV SCH (11:38)
--- NOTE | 2023-04-27 12:23 | Pharmacy Report ---
Pharmacy Glycemic Short Note 2 - Date of Service April 27, 2023 - Glycemic Short BSG Results (Last 24 hours): 04/26/23 04/26/23 04/27/23 16:16 19:31 01:10 Glucose POC Glucose 168 H 159 H 98 04/27/23 04/27/23 04/27/23 05:30 05:51 07:28 Glucose 148 H POC Glucose 161 H 196 H 04/27/23 11:33 Glucose POC Glucose 274 H OUTPATIENT ANTIDIABETIC REGIMEN: * Lantus 50 units SQ HS * U-500 85 units qAM, 75 units with lunch, and 60 units with dinner HbA1C: 9.8% (04/02/23) ASSESSMENT: 04/27: * BSGs [phone]/dL over the last 24h- improved. Fasting still elevated this AM- 196mg/dL. Patient received 100 units of basal and 91 units of bolus insulin yesterday. * Continues on methylpred 40mg IV q8h, IV antibiotics and tolerating diet. * Will titrate basal to 55 units BID (10% increase). Novolog tightened further to 8/2 at breakfast. Given lunch BSG up to 274mg/dL in light of this, will plan for tightening to 8/1.5 tomorrow with breakfast only. 04/26: * BSGs elevated the last 24h: 202-247-310. Fasting elevated to 310mg/dL this AM. Received 80 units of basal and 59 units of bolus insulin yesterday. * Steroids continue (methylpred 40mg IV q8h), tolerating diet, and on IV antibiotics. * BSG to 372mg/dL today at lunch. Regular insulin 5 units IVP X 1 in addition to SQ lunch coverage. Novolog parameters tightened from 27/03 to 10/3- may need to tighten further. Lantus increased to 50 units this AM in addition to an HS scale (40/50/60) depending on BSG for an increase in basal up to 35%. 04/25: * Patient is a 57 year old male with DM2 well known to the glycemic pharmacy service admitted with multifocal pneumonia. Pharmacy consulted to assist with glycemic management while inpatient. * BSGs [phone]/dL since admission. Fasting BSG elevated this AM. Received 25 units of basal insulin last evening and 23 units of bolus insulin yesterday. * Receiving IV antibiotics, and methylprednisolone 40mg IV q8h started this AM. Tolerating a diet. * Based upon previous glycemic data, total daily insulin at home and current stressors, will initiate Lantus 40 units SQ BID and continue Novolog 15/5 for now. With addition of steroids, will likely require titration. PLAN FOR INPATIENT GLYCEMIC CONTROL: * Hold outpatient oral diabetes medications * Basal insulin * Lantus 55 units SQ BID * Bolus insulin * NovoLog per scale ACHS or Q6hrs while NPO * Goal Range: Low 110 mg/dL - High 140 mg/dL * Correction Factor: 8 mg/dL/unit * Nutritional / Prandial insulin per carb ratio of 1 unit per 1.5 grams CHO (breakfast), 2 grams CHO consumed (lunch, dinner, HS)
--- NOTE | 2023-04-27 14:08 | Hospitalist Progress Note ---
Date of Service April 27, 2023 Assessment & Plan (1) Multifocal pneumonia: Plan: Viral etiology, right greater than left. Continue parenteral steroid therapy. Continue Rocephin and azithromycin as a precaution. Repeat portable chest x-ray every 2 days. Obtain sputum culture if sputum is produced (2) Coronavirus infection: Plan: This does not appear to be SARS-COV 2 (3) Anemia requiring transfusions: Plan: Hemoglobin 6.7 on admission. No overt GI bleeding. He is iron deficient and iron replacement has been started. Hemoglobin up to 9.2 after infusion and most recent hemoglobin 8.8 (4) PAD (peripheral artery disease): Plan: Stable. Continue current medical management (5) Diabetic ulcer of right heel: Plan: Wound VAC in place. Surgery planned for this for further intervention on the right heel has been canceled. (6) Osteomyelitis of right foot: Plan: He is currently on intravenous Rocephin and azithromycin (7) Hyperglycemia: Plan: Known type 2 diabetes. Diabetes has been aggravated by parenteral steroid therapy. Basal insulin and sliding scale coverage ordered (8) HLD (hyperlipidemia): Plan: Stable. Continue statin therapy (9) COSMO (acute kidney injury): Plan: Monitor intake and output. Serial labs. Resolved (10) Obesity (BMI 30-39.9): Plan: Weight loss recommended (11) WHIT (obstructive sleep apnea): Plan: Stable. No intervention necessary at this time (12) Stage 4 chronic kidney disease due to diabetes mellitus: Plan: Monitor intake and output. Serial labs (13) Diabetes: Plan: Known type 2 diabetes. ADA diet. Basal insulin therapy. Sliding scale coverage (14) Acute respiratory failure with hypoxia: Plan: Oxygen per nasal cannula to maintain saturation greater than 90%. Wean off as tolerated Plan Anticipate eventual discharge to home. Hopefully within the next day or 2 Admission and Anticipated Discharge Date Admission Date: April 24, 2023 Subjective Alert and oriented. No distress. Oxygen requirements have been weaned down to 2 L. Day 3 of parenteral iron replacement today, April 27. We will repeat chest x-ray again tomorrow, April 28. Continue parenteral steroid therapy along with Rocephin and azithromycin for bacterial prophylaxis. Hemoglobin stable at 8.8 Review of Systems Review of Systems: Constitutional-no fever or chills ENT-no blurred vision, no double vision, no epistaxis, no sore throat Respiratory-nonproductive cough. No wheezing . No shortness of breath at rest but he does have dyspnea with exertion Cardiac-no palpitations, no chest pain, no syncope GI-no nausea, vomiting, diarrhea, melena, hematochezia -no urinary retention, no urinary incontinence, no dysuria, no hematuria Musculoskeletal-known right heel osteomyelitis with wound VAC Skin-no bruising, no rashes, no pruritus Neuro-no isolated weakness, no paresthesia, no weakness Psych-depressed affect Physical Exam Physical Exam: General-alert and oriented x3, no fevers, no chills HEENT-head atraumatic and normocephalic, pupils equal and reactive to light, extraocular muscles intact Neck-no lymphadenopathy or thyromegaly, trachea midline Chest-dry inspiratory rales right lung field. No wheezing. Cardiac-regular rate and rhythm, normal S1 and S2, no murmurs Abdomen-normal bowel sounds, nontender, no hepatosplenomegaly Extremities-chronic bilateral pedal edema. Open wound right heel with wound VAC in place Neuro-cranial nerves II through XII intact, motor and sensory function within normal limits, strength symmetrical , no focal deficits Psych-depressed affect Results & Data Results & Data Vital Signs (Past 12 Hours) Vital Signs Temp Pulse Resp BP Pulse Ox O2 Del Method O2 Flow Rate 04/27/23 11:42 36.4 C 54 L 20 156/83 H 93 Nasal Cannula 2 04/27/23 08:18 Nasal Cannula 4 04/27/23 07:47 36.4 C L 56 L 20 187/96 H 92 Nasal Cannula 4 04/27/23 03:04 36.4 C L 52 L 18 129/70 96 Nasal Cannula 4.0 Laboratory Results 04/27/23 05:51 04/27/23 05:51 PG Care Time/CCT Total # of Minutes Spent Total Time Spent with Patient: Total time spent is greater than 50% in coordination of care (as documented) at patient's floor/unit and/or counseling patient: Coding Level of Care Code 05192 SUB INP/OBS CARE 3/50MIN Diagnoses Multifocal pneumonia J18.9 Coronavirus infection B34.2 Anemia requiring transfusions D64.9 PAD (peripheral artery disease) I73.9 Diabetic ulcer of right heel E11.621; L97.419 Osteomyelitis of right foot M86.9 Hyperglycemia R73.9 HLD (hyperlipidemia) E78.5 COSMO (acute kidney injury) N17.9 Obesity (BMI 30-39.9) E66.9 WHIT (obstructive sleep apnea) G47.33 Stage 4 chronic kidney disease due to diabetes mellitus E11.22; N18.4 Diabetes E11.621; L97.509; Z79.4 Diabetes mellitus type: type 2 Diabetes mellitus buttermilk drier operator insulin use: with buttermilk drier operator use Diabetes mellitus complication status: with skin complications Diabetes mellitus complication detail: with foot ulcer Acute respiratory failure with hypoxia J96.01 (13) Diabetes Diabetes mellitus type: type 2 Diabetes mellitus shelter insulin use: with buttermilk drier operator use Diabetes mellitus complication status: with skin complications Diabetes mellitus complication detail: with foot ulcer Qualified Code(s): E11.621 - Type 2 diabetes mellitus with foot ulcer; L97.509 - Non-pressure chronic ulcer of other part of unspecified foot with unspecified severity; Z79.4 - buttermilk drier operator (current) use of insulin
[2023-04-27] MEDS ORDERED: INSULIN ASPART PER UNIT CHARGE SC SCH ×2 (16:30)
[2023-04-27] MEDS: MELATONIN 3 MG TAB PO SCH (21:58)
[2023-04-27] MEDS: DOXAZosin MESYLATE 4 MG TAB PO SCH (21:58)
[2023-04-27] MEDS: CYANOCOBALAMIN (B-12) 500 MCG TABLET PO SCH (21:59)
[2023-04-27] MEDS: MAGNESIUM OXIDE 400 MG TAB PO SCH (22:00)
[2023-04-27] MEDS: ATORVASTATIN 40 MG TAB PO SCH (22:00)
[2023-04-27] MEDS: METOPROLOL SUCC 50MG EXT REL TAB PO SCH (22:02)
[2023-04-27] MEDS: rOPINIRole HCL 0.25 MG TABLET PO SCH (22:03)
[2023-04-27] MEDS: CHOLECALCIFEROL 1,000 UNITS 25 MCG TAB PO SCH (22:04)
[2023-04-28] MEDS: methylPREDNISolone 40 MG in SYRINGE 0 ML IV SCH ×3 (00:22→17:07)
--- NOTE | 2023-04-28 07:36 | XRay Report ---
XR chest 1V portable CLINICAL HISTORY: viral pneumonia TECHNIQUE: Single frontal radiograph of the chest was obtained. Comparison: Comparison is made to chest radiograph 04/26/2023 FINDINGS: Right PICC is seen. The cardiomediastinal silhouette is normal. Multifocal airspace opacities are see n. No evidence of pleural effusion or pneumothorax. IMPRESSION: Stable findings of multifocal pneumonia. ACT 112: Negative or not required by law. Electronically signed by: Luis Eduardo Viera M.D. 04/28/2023 7:34 AM
[2023-04-28] MEDS: GABAPENTIN 600 MG TAB PO SCH ×2 (08:00→22:32)
[2023-04-28] MEDS: allopurinoL 300 MG TAB PO SCH (08:00)
[2023-04-28] MEDS: ENOXAPARIN INJ 40 MG/0.4 ML SYR SQ SCH (08:00)
[2023-04-28] MEDS: ASPIRIN 81 MG ECTAB PO SCH ×2 (08:00→22:30)
[2023-04-28] MEDS: ASCORBIC ACID 500 MG TAB PO SCH ×2 (08:00→22:30)
[2023-04-28] MEDS: FERROUS SULFATE 325 MG TAB PO SCH ×2 (08:00→22:32)
[2023-04-28] MEDS: AZITHROMYCIN 500 MG in DEXTROSE 5% 250 ML IV SCH (08:01)
[2023-04-28] MEDS: INSULIN ASPART PER UNIT CHARGE SC SCH ×4 (08:13→22:34)
[2023-04-28] MEDS: LANTUS PER UNIT CHARGE SC SCH (08:15)
[2023-04-28 11:18] LABS: Hematocrit (blood only) 28.7 % (42.0-52.0); Immature Granulocytes # (auto) 0.03 K/uL (0.01-0.20); Immature Granulocytes % (auto) 0.4 %; Mean Corpuscular Hgb Conc 31.4 g/dL (32.0-36.0); Mean Corpuscular Volume 86.2 fL (80.0-100.0); Mean Platelet Volume 9.6 fL (9.4-12.4); Monocytes # (auto) 0.55 K/uL (0.11-0.59); Monocytes % (auto) 7.3 %; Neutrophils # (auto) 6.36 K/uL (1.40-6.50); Neutrophils % (auto) 84.3 %; Platelet Count 316 K/uL (130-400); RDW Coefficient of Variation 15.9 % (11.5-14.5); RDW Standard Deviation 50.8 fL (36.4-46.3); Red Blood Count 3.33 M/uL (4.70-6.10); White Blood Count 7.54 K/ul (4.8-10.8)
[2023-04-28 11:27] LABS: BUN Creatinine Ratio 48.8 (10-20); Calcium 8.6 mg/dl (8.6-10.3); Creatinine Clr Calc Pharmacy 78.6 ml/min; Est GFR (African American) 72.7 ml/min; Est GFR (Non-African American) 62.7 ml/min; Potassium 4.2 mmol/L (3.5-5.1)
[2023-04-28] MEDS ORDERED: INSULIN ASPART PER UNIT CHARGE SC SCH (11:30)
[2023-04-28] MEDS: cefTRIAXone SODIUM 2,000 MG in DEXTROSE 5% 50 ML IV SCH (11:58)
--- NOTE | 2023-04-28 14:25 | Hospitalist Progress Note ---
Date of Service April 28, 2023 Assessment & Plan (1) Multifocal pneumonia: Plan: Viral etiology, right greater than left. Continue parenteral steroid therapy while hospitalized. Switch to prednisone taper at discharge. Rocephin and azithromycin intravenous antibiotics switched to oral Bactrim therapy today, April 28. Repeat portable chest x-ray every 2 days. Obtain sputum culture if sputum is produced (2) Coronavirus infection: Plan: This does not appear to be SARS-COV 2 (3) Anemia requiring transfusions: Plan: Hemoglobin 6.7 on admission. No overt GI bleeding. He is iron deficient and iron replacement has been started. Hemoglobin up to 9.2 after infusion and most recent hemoglobin 9.0 (4) PAD (peripheral artery disease): Plan: Stable. Continue current medical management (5) Diabetic ulcer of right heel: Plan: Wound VAC in place. Surgery planned for April 27 further intervention on the right heel was canceled. (6) Osteomyelitis of right foot: Plan: Treated with intravenous Rocephin and azithromycin then switched to oral Bactrim therapy today, April 28. He did have MRSA isolated recently (7) Hyperglycemia: Plan: Known type 2 diabetes. Diabetes has been aggravated by parenteral steroid therapy. Basal insulin and sliding scale coverage ordered (8) HLD (hyperlipidemia): Plan: Stable. Continue statin therapy (9) COSMO (acute kidney injury): Plan: Monitor intake and output. Serial labs. Resolved (10) Obesity (BMI 30-39.9): Plan: Weight loss recommended (11) WHIT (obstructive sleep apnea): Plan: Stable. No intervention necessary at this time (12) Stage 4 chronic kidney disease due to diabetes mellitus: Plan: Monitor intake and output. Serial labs (13) Diabetes: Plan: Known type 2 diabetes. ADA diet. Basal insulin therapy. Sliding scale coverage (14) Acute respiratory failure with hypoxia: Plan: Oxygen per nasal cannula to maintain saturation greater than 90%. Wean off as tolerated Plan Hopeful discharge back to [facility] tomorrow, April 29 Admission and Anticipated Discharge Date Admission Date: April 24, 2023 Subjective Alert and oriented. No new problems. IV antibiotics switched to oral Bactrim to cover the MRSA isolated from the right heel. He remains on oxygen. He will return to [facility] who can manage the oxygen which could take quite some time to wean off since this is a viral pneumonia. Parenteral steroids will be switched to oral tapering dose at the time of discharge. Hemoglobin continues to trend upward. He is requiring oxygen at 2 to 4 L per nasal cannula, variable. Review of Systems Review of Systems: Constitutional-no fever or chills ENT-no blurred vision, no double vision, no epistaxis, no sore throat Respiratory-nonproductive cough. No wheezing . No shortness of breath at rest but he does have dyspnea with exertion Cardiac-no palpitations, no chest pain, no syncope GI-no nausea, vomiting, diarrhea, melena, hematochezia -no urinary retention, no urinary incontinence, no dysuria, no hematuria Musculoskeletal-known right heel osteomyelitis with wound VAC Skin-no bruising, no rashes, no pruritus Neuro-no isolated weakness, no paresthesia, no weakness Psych-depressed affect Physical Exam Physical Exam: General-alert and oriented x3, no fevers, no chills HEENT-head atraumatic and normocephalic, pupils equal and reactive to light, extraocular muscles intact Neck-no lymphadenopathy or thyromegaly, trachea midline Chest-dry inspiratory rales right lung field. No wheezing. Cardiac-regular rate and rhythm, normal S1 and S2, no murmurs Abdomen-normal bowel sounds, nontender, no hepatosplenomegaly Extremities-chronic bilateral pedal edema. Open wound right heel with wound VAC in place Neuro-cranial nerves II through XII intact, motor and sensory function within normal limits, strength symmetrical , no focal deficits Psych-depressed affect Results & Data Results & Data Vital Signs (Past 12 Hours) Vital Signs Temp Pulse Pulse Resp BP Pulse Ox O2 Del Method 04/28/23 11:51 36.8 C 57 L 20 164/71 H 94 Nasal Cannula 04/28/23 09:01 59 L 04/28/23 09:01 Nasal Cannula 04/28/23 07:31 36.3 C L 56 L 18 159/54 H 92 Nasal Cannula 04/28/23 03:51 36.4 C L 66 20 159/66 H 91 CPAP O2 Flow Rate 04/28/23 11:51 4.0 04/28/23 09:01 04/28/23 09:01 3 04/28/23 07:31 1.5 04/28/23 03:51 Laboratory Results 04/28/23 10:55 04/28/23 10:51 PG Care Time/CCT Total # of Minutes Spent Total Time Spent with Patient: Total time spent is greater than 50% in coordination of care (as documented) at patient's floor/unit and/or counseling patient: Coding Level of Care Code 94642 SUB INP/OBS CARE 3/50MIN Diagnoses Multifocal pneumonia J18.9 Coronavirus infection B34.2 Anemia requiring transfusions D64.9 PAD (peripheral artery disease) I73.9 Diabetic ulcer of right heel E11.621; L97.419 Osteomyelitis of right foot M86.9 Hyperglycemia R73.9 HLD (hyperlipidemia) E78.5 COSMO (acute kidney injury) N17.9 Obesity (BMI 30-39.9) E66.9 WHIT (obstructive sleep apnea) G47.33 Stage 4 chronic kidney disease due to diabetes mellitus E11.22; N18.4 Diabetes E11.621; L97.509; Z79.4 Diabetes mellitus type: type 2 Diabetes mellitus termite technician insulin use: with snf use Diabetes mellitus complication status: with skin complications Diabetes mellitus complication detail: with foot ulcer Acute respiratory failure with hypoxia J96.01 (13) Diabetes Diabetes mellitus type: type 2 Diabetes mellitus termite technician insulin use: with termite technician use Diabetes mellitus complication status: with skin complications Diabetes mellitus complication detail: with foot ulcer Qualified Code(s): E1 1.621 - Type 2 diabetes mellitus with foot ulcer; L97.509 - Non-pressure chronic ulcer of other part of unspecified foot with unspecified severity; Z79.4 - [facility] (current) use of insulin
--- NOTE | 2023-04-28 15:21 | Pharmacy Report ---
Pharmacy Glycemic Short Note 2 - Date of Service April 28, 2023 - Glycemic Short BSG Results (Last 24 hours): 04/27/23 04/27/23 04/28/23 16:19 20:32 07:27 Glucose POC Glucose 154 H 150 H 206 H 04/28/23 04/28/23 10:51 11:34 Glucose 276 H POC Glucose 268 H OUTPATIENT ANTIDIABETIC REGIMEN: * Lantus 50 units SQ HS * U-500 85 units qAM, 75 units with lunch, and 60 units with dinner HbA1C: 9.8% (04/02/23) ASSESSMENT: 04/28: * BSGs 154-150-206 and 268 mg/dL over the last 24 hours. Patient received 110 units of lantus and 115 units of bolus insulin. Fasting BSG elevated again today at 206 mg/dL. I did increase total daily lantus dose somewhat, but want to be cautious not to move too quickly with large uptitrations. * Post prandial lunch BSG continues to be high, despite tight CR. This could be in part due to timing form morning administration to timing of lunch BSG acquisition. * Patient is still receiving IV steroids and is tolerating a diet. 04/27: * BSGs [phone]/dL over the last 24h- improved. Fasting still elevated this AM- 196mg/dL. Patient received 100 units of basal and 91 units of bolus insulin yesterday. * Continues on methylpred 40mg IV q8h, IV antibiotics and tolerating diet. * Will titrate basal to 55 units BID (10% increase). Novolog tightened further to 8/2 at breakfast. Given lunch BSG up to 274mg/dL in light of this, will plan for tightening to 8/1.5 tomorrow with breakfast only. 04/26: * BSGs elevated the last 24h: 202-247-310. Fasting elevated to 310mg/dL this AM. Received 80 units of basal and 59 units of bolus insulin yesterday. * Steroids continue (methylpred 40mg IV q8h), tolerating diet, and on IV antibiotics. * BSG to 372mg/dL today at lunch. Regular insulin 5 units IVP X 1 in addition to SQ lunch coverage. Novolog parameters tightened from 27/03 to 08/15- may need to tighten further. Lantus increased to 50 units this AM in addition to an HS scale (40/50/60) depending on BSG for an increase in basal up to 35%. 04/25: * Patient is a 57 year old male with DM2 well known to the glycemic pharmacy service admitted with multifocal pneumonia. Pharmacy consulted to assist with glycemic management while inpatient. * BSGs [phone]/dL since admission. Fasting BSG elevated this AM. Received 25 units of basal insulin last evening and 23 units of bolus insulin yesterday. * Receiving IV antibiotics, and methylprednisolone 40mg IV q8h started this AM. Tolerating a diet. * Based upon previous glycemic data, total daily insulin at home and current stressors, will initiate Lantus 40 units SQ BID and continue Novolog 15/5 for now. With addition of steroids, will likely require titration. PLAN FOR INPATIENT GLYCEMIC CONTROL: * Hold outpatient oral diabetes medications * Basal insulin * Lantus 60 units SQ BID * Bolus insulin * NovoLog per scale ACHS or Q6hrs while NPO * Goal Range: Low 110 mg/dL - High 140 mg/dL * Correction Factor: 8 mg/dL/unit (breakfast), 10 mg/dL/unit (lunch, dinner, HS) * Nutritional / Prandial insulin per carb ratio of 1 unit per 1.5 grams CHO (breakfast), 2 grams CHO consumed (lunch, dinner, HS)
[2023-04-28] MEDS: CARBOHYDRATES FOR HYPOGLYCEMIA PO PRN ×2 (16:34→16:54)
[2023-04-28] MEDS ORDERED: DICLOFENAC SOD 1% GEL 100 GM TUBE EXT PRN (17:59)
[2023-04-28] MEDS ORDERED: LANTUS PER UNIT CHARGE SC ONE (21:00)
[2023-04-28] MEDS: ATORVASTATIN 40 MG TAB PO SCH (22:30)
[2023-04-28] MEDS: DOXAZosin MESYLATE 4 MG TAB PO SCH (22:31)
[2023-04-28] MEDS: CYANOCOBALAMIN (B-12) 500 MCG TABLET PO SCH (22:31)
[2023-04-28] MEDS: CHOLECALCIFEROL 1,000 UNITS 25 MCG TAB PO SCH (22:31)
[2023-04-28] MEDS: MAGNESIUM OXIDE 400 MG TAB PO SCH (22:32)
[2023-04-28] MEDS: MELATONIN 3 MG TAB PO SCH (22:32)
[2023-04-28] MEDS: METOPROLOL SUCC 50MG EXT REL TAB PO SCH (22:33)
[2023-04-28] MEDS: rOPINIRole HCL 0.25 MG TABLET PO SCH (22:33)
[2023-04-28] MEDS: SULFAMETHOXAZOLE/TRIMETHOPRIM DS 800/160MG TAB PO SCH (22:34)
[2023-04-29] MEDS: INSULIN ASPART PER UNIT CHARGE SC SCH ×4 (00:22→13:14)
[2023-04-29] MEDS: methylPREDNISolone 40 MG in SYRINGE 0 ML IV SCH ×2 (00:23→09:28)
[2023-04-29] MEDS: LANTUS PER UNIT CHARGE SC SCH (00:53)
[2023-04-29] MEDS ORDERED: INSULIN ASPART PER UNIT CHARGE SC SCH (02:00)
[2023-04-29 07:43] LABS: Eosinophils # (auto) 0.01 K/uL (0-0.50); Eosinophils % (auto) 0.1 %; Hematocrit (blood only) 27.9 % (42.0-52.0); Hemoglobin 9.1 g/dl (14.0-18.0); Immature Granulocytes # (auto) 0.05 K/uL (0.01-0.20); Immature Granulocytes % (auto) 0.6 %; Lymphocytes # (auto) 0.92 K/uL (1.2-3.4); Lymphocytes % (auto) 10.6 %; Mean Corpuscular Hemoglobin 28.1 pg (25.0-34.0); Mean Corpuscular Hgb Conc 32.6 g/dL (32.0-36.0); Mean Corpuscular Volume 86.1 fL (80.0-100.0); Mean Platelet Volume 9.7 fL (9.4-12.4); Monocytes # (auto) 0.96 K/uL (0.11-0.59); Monocytes % (auto) 11.1 %; Neutrophils # (auto) 6.73 K/uL (1.40-6.50); Neutrophils % (auto) 77.6 %; Platelet Count 316 K/uL (130-400); RDW Standard Deviation 50.3 fL (36.4-46.3); Red Blood Count 3.24 M/uL (4.70-6.10); White Blood Count 8.67 K/ul (4.8-10.8)
[2023-04-29 07:51] LABS: BUN Creatinine Ratio 52.6 (10-20); Calcium 8.9 mg/dl (8.6-10.3); Creatinine Clr Calc Pharmacy 87.4 ml/min; Est GFR (African American) 82.9 ml/min; Est GFR (Non-African American) 71.5 ml/min; Potassium 4.5 mmol/L (3.5-5.1)
[2023-04-29] MEDS ORDERED: LANTUS PER UNIT CHARGE SC ONE ×3 (08:00)
[2023-04-29] MEDS: ACETAMINOPHEN 500 MG TAB PO PRN (09:29)
[2023-04-29] MEDS: allopurinoL 300 MG TAB PO SCH (09:30)
[2023-04-29] MEDS: ASCORBIC ACID 500 MG TAB PO SCH (09:32)
[2023-04-29] MEDS: ASPIRIN 81 MG ECTAB PO SCH (09:32)
[2023-04-29] MEDS: ENOXAPARIN INJ 40 MG/0.4 ML SYR SQ SCH (09:32)
[2023-04-29] MEDS: SULFAMETHOXAZOLE/TRIMETHOPRIM DS 800/160MG TAB PO SCH (09:33)
[2023-04-29] MEDS: FERROUS SULFATE 325 MG TAB PO SCH (09:33)
[2023-04-29] MEDS: GABAPENTIN 600 MG TAB PO SCH (09:33)
--- NOTE | 2023-04-29 12:42 | Discharge Summary ---
Date of Service April 29, 2023 Admission HPI Per Admitting Provider Reid is a 57-year-old male with past medical history of CHF, stage IV CKD, gastroparesis, left osteomyelitis of the foot, hypertension, hyperlipidemia, DM 2, prior medication noncompliance who presented to the emergency department with shortness of breath from [facility] where he has been for a week and a half for rehab. He has had progressive shortness of breath, and fever up to 101. Has had worsening fever and shortness of breath despite attempted treatment with Tylenol. Inder reports he started having problems getting a full breath a few days ago, at least the last -1 days. Fevers to 101-102. Oxygen levels dropped and was placed on 4L NC. No chest pain, no chest pressure. +dyspnea, +easy exertional fatigue. Cough is dry and nonproductive. +some chills overnight and is cold, but has had this with low blood levels as well. No lightheadedness/dizziness. No syncope/presycnope. Foot is doing 'OK-amber" Club foot bilat. R foot with woudn sade in place on medial aspect, no bordering erythema/discharge/dehiscence. Pt had 1 episode of bleeding from this previously. +increased SoB when laying flat or bending over. He was told he had diastolic heart failure 'years ago' but followed up with Dr. Artis and was told this was not actually true 'just bad veins' and echo has been normal. Is currently on 4mg of bumex daily for lower edema. Took his morning meds per [facility] this AM. Currently his home insulin regimen is : 50 units lantus qHS, U-500 85am/75noon/65evening. Medical History: Reviewed Medications: Reviewed Surgical History: Reviewed Family history: Reviewed Allergies: Reviewed Social History: Tobacco Code Status: Full Code Principal Diagnosis Viral pneumonia, acute hypoxic respiratory failure, iron deficiency anemia Discharge Exam General-alert and oriented x3, no fevers, no chills HEENT-head atraumatic and normocephalic, pupils equal and reactive to light, extraocular muscles intact Neck-no lymphadenopathy or thyromegaly, trachea midline Chest-dry inspiratory rales right lung field. No wheezing. Cardiac-regular rate and rhythm, normal S1 and S2, no murmurs Abdomen-normal bowel sounds, nontender, no hepatosplenomegaly Extremities-chronic bilateral pedal edema. Open wound right heel with wound VAC in place Neuro-cranial nerves II through XII intact, motor and sensory function within normal limits, strength symmetrical , no focal deficits Psych-depressed affect Discharge Data Allergies Allergy/AdvReac Type Severity Reaction Status Date / Time hydralazine Allergy Mild Rash Verified 07/11/22 13:18 Calcium Channel Blocking Allergy Rash, Verified 07/11/22 13:18 Agent Dilt swelling semaglutide [From Ozempic] Allergy Abdominal Verified 07/11/22 13:18 Pain amitriptyline AdvReac Mild Muscle Verified 07/11/22 13:18 twitching Consultations 04/24/23 10:39 ED Decision to Admit Stat Procedures Performed Operation Date: 04/27/23 13:00 <No data on this case meets the specified criteria> Hospital Course (1) Multifocal pneumonia: Viral etiology, right greater than left. Continue parenteral steroid therapy while hospitalized. Switch to prednisone taper at discharge. Rocephin and azithromycin intravenous antibiotics switched to oral Bactrim therapy on April 28. Repeat portable chest x-ray weekly until clear. (2) Coronavirus infection: This does not appear to be SARS-COV 2 (3) Anemia requiring transfusions: Hemoglobin 6.7 on admission. No overt GI bleeding. He is iron deficient and iron replacement has been started. Hemoglobin up to 9.2 after infusion and most recent hemoglobin 9.0. He will remain on oral iron supplementation going forward (4) PAD (peripheral artery disease): Stable. Continue current medical management (5) Diabetic ulcer of right heel: Wound VAC in place. Surgery planned for April 27 further intervention on the right heel was canceled. (6) Osteomyelitis of right foot: Treated with intravenous Rocephin and azithromycin then switched to oral Bactrim therapy on April 28. He did have MRSA isolated recently (7) Hyperglycemia: Known type 2 diabetes. Diabetes has been aggravated by parenteral steroid therapy. Basal insulin and sliding scale coverage ordered while hospitalized (8) HLD (hyperlipidemia): Stable. Continue statin therapy (9) COSMO (acute kidney injury): Monitor intake and output. Serial labs. Resolved (10) Obesity (BMI 30-39.9): Weight loss recommended (11) WHIT (obstructive sleep apnea): Stable. No intervention necessary at this time (12) Stage 4 chronic kidney disease due to diabetes mellitus: Monitor intake and output. Serial labs (13) Diabetes: Known type 2 diabetes. ADA diet. Basal insulin therapy. Sliding scale coverage (14) Acute respiratory failure with hypoxia: Oxygen per nasal cannula to maintain saturation greater than 90%. Wean off as tolerated Plan Plan discharge back to [facility] today, April 29 Total Time Total Time Spent Total Time Spent (In Minutes): 40 minutes Discharge Plan Discharge Items Patient Disposition: Transfer Inpatient Rehab Fac Reason For Visit: AHRF, MULTIFOCAL PNA Discharge Diagnosis: Viral pneumonia, acute hypoxic respiratory failure, iron deficiency anemia Activity: Resume your previous activity Non-emergency contact: Primary Care Provider Call non-emergency contact if: you have any medication questions and your symptoms worsen Follow-up/Referrals: Marbella Membreno PA-C [Primary Care Provider] - Diet: Carb Consistent or DM2 and Heart Healthy Addtl Attending Provider Instructions: Take Bactrim DS twice daily for 1 more week. Wean prednisone off as directed Pending Studies at Discharge: No Stand-Alone Forms: My [facility] Skilled Items Patient informed of condition?: Yes DNR: No Discharge Level of Care: Acute rehab Communicable Disease: Yes Discharge Prognosis: Stable Lines: None Urinary Catheter: No Medications and DC Order Prescriptions: New prednisone 10 mg tablet See Rx Instructions .ROUTE .COMPLEX Qty: 12 0RF Rx Instructions: 10 mg orally 3 times a day for 2 days, then 10 mg twice a day for 2 days, then 10 mg once a day for 2 days, then stop ropinirole 0.25 mg Tablet 0.25 mg PO HS Qty: 0 0RF sulfamethoxazole-trimethoprim [Bactrim DS] 800-160 mg Tablet 1 tab PO Q12 Qty: 0 0RF Continued aspirin 81 mg capsule 81 mg PO Q12 doxazosin 4 mg tablet 4 mg PO HS melatonin 10 mg capsule 10 mg PO HS allopurinol 300 mg tablet 750 mg PO DAILY Rx Instructions: Take 2 & 1/2 tabs. Hasnt been getting this med between [facility] hospital polyethylene glycol 3350 17 gram/dose powder 17 gm PO BID PRN (Reason: constipation) Qty: 510 5RF Lantus Solostar U-100 Insulin 100 unit/mL (3 mL) insulin pen 50 unit subcut HS Rx Instructions: Per pt they bumped him up to 70 ([facility]) magnesium oxide 400 mg Capsule 400 mg PO HS atorvastatin 80 mg Tablet 80 mg PO QPM metoprolol succinate 50 mg Tablet Extended Release 24 Hr 150 mg PO QPM omeprazole 20 mg Capsule,Delayed Release(Dr/Ec) 20 mg PO QPM Qty: 0 0RF gabapentin 600 mg tablet 600 mg PO TID Rx Instructions: 2 am and 1 pm Humulin R U-500 (Conc) Insulin 500 unit/mL solution See Rx Instructions .ROUTE .COMPLEX Rx Instructions: 85 units in am, 75 units with lunch, 60 units with dinner; omega 3-nyo-hnk-fish oil [Fish Oil] 1,000 mg (120 mg-180 mg) capsule 2 cap PO BID Rx Instructions: 2 am and 2 pm cholecalciferol (vitamin D3) [Vitamin D3] 25 mcg (1,000 unit) tablet,chewable 2,000 units PO QPM fluticasone propionate [Flonase Allergy Relief] 50 mcg/actuation [place],Suspension 1 spray INTRANASAL BID PRN (Reason: Allergy Symptoms) magnesium hydroxide [Milk of Magnesia] 400 mg/5 mL Suspension 15 ml PO DAILY PRN (Reason: Constipation) acetaminophen [Tylenol Extra Strength] 500 mg Tablet 1,000 mg PO TID PRN (Reason: Pain) ascorbic acid (vitamin C) 500 mg Tablet 500 mg PO BID Rx Instructions: Per pt he takes once a day Multivitamin 50 Plus Tablet 1 tab PO QAM cyanocobalamin (vitamin B-12) 1,000 mcg Tablet 1,000 mcg PO HS hydroxyzine HCl 25 mg Tablet 0 mg PO Q6 PRN (Reason: Itching) Rx Instructions: Pt is unsure of this medication Changed ferrous sulfate 325 mg (65 mg iron) tablet 325 mg PO BID Qty: 1 0RF Discharge Orders: Discharge Order (Routine); Ordered 04/29/23 Ordered By: Ken Esqueda Admission Data Admit Date/Time: 04/24/23 11:44 Attending Provider: Ken Esqueda Admit Provider: Mehdi Claros Primary Care Provider: Marbella Membreno Other Providers: Mehdi Claros ; [facility] ; [facility] Other Interventions: Discharge Summary Assessment (RN) Last Done: 04/29/23 12:36 Coding Level of Care Code 17024 INP/OBS DISCH >30 MIN Diagnoses Multifocal pneumonia J18.9 Coronavirus infection B34.2 Anemia requiring transfusions D64.9 PAD (peripheral artery disease) I73.9 Diabetic ulcer of right heel E11.621; L97.419 Osteomyelitis of right foot M86.9 Hyperglycemia R73.9 HLD (hyperlipidemia) E78.5 COSMO (acute kidney injury) N17.9 Obesity (BMI 30-39.9) E66.9 WHIT (obstructive sleep apnea) G47.33 Stage 4 chronic kidney disease due to diabetes mellitus E11.22; N18.4 Diabetes E11.621; L97.509; Z79.4 Diabetes mellitus type: type 2 Diabetes mellitus 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
== END 2023-04-29 14:39 | DRG 865 ==
LOC: ED 08:07 → SUATTDRO 11:44 → 2E 11:44 → 2W 04-28 17:43

== ENCOUNTER 2023-04-30 01:04 | Inpatient (IN) ==
--- NOTE | 2023-04-30 01:15 | Emergency Department Note ---
History of Present Illness General Chief complaint: Respiratory Distress Time Seen by Provider: 04/30/23 01:08 History of Present Illness 57-year-old male presents to the emergency department via EMS [facility] and he just left the hospital today at 2 PM he has a history of pneumonia and he is there for rehab. Reportedly he went up to go to the bathroom and became short of breath had a pulse oximetry in the 60s was given some oxygen it went to 70s and was given more oxygen is now in the 90s. Patient has a slight cough denies chest pain. There are no other complaints. No other mitigating or alleviating factors Home Medications Medication Instructions Recorded Confirmed Type atorvastatin 80 mg tablet 80 mg PO QPM 08/02/18 04/30/23 History magnesium oxide 400 mg PO HS 08/02/18 04/30/23 History metoprolol succinate 50 mg 150 mg PO DAILY 08/02/18 04/30/23 History tablet,extended release 24 hr cholecalciferol (vitamin D3) 25 2,000 units PO QPM 11/19/19 04/30/23 History mcg (1,000 unit) chewable tablet (Vitamin D3) gabapentin 600 mg tablet 600 mg PO HS 12/06/19 04/30/23 History fluticasone propionate 50 1 spray intranasal BID PRN Allergy 05/05/20 04/30/23 History mcg/actuation nasal Symptoms spray,suspension (Flonase Allergy Relief) doxazosin 4 mg tablet 4 mg PO HS 10/01/20 04/30/23 History magnesium hydroxide 400 mg/5 mL 30 ml PO DAILY PRN Constipation 07/28/21 04/30/23 History oral suspension (Milk of Magnesia) ascorbic acid (vitamin C) 500 mg 500 mg PO BID 08/08/21 04/30/23 History tablet gniywjzizlvh-rehtgphr-wavixq 1 tab PO QAM 08/08/21 04/30/23 History tablet (Multivitamin 50 Plus tablet) cyanocobalamin (vitamin B-12) 1,000 mcg PO HS 08/11/21 04/30/23 History 1,000 mcg tablet hydroxyzine HCl 25 mg tablet 25 mg PO Q6 PRN Itching 08/11/21 04/30/23 History aspirin 81 mg capsule 81 mg PO Q12 09/21/21 04/30/23 History insulin glargine 100 unit/mL (3 60 unit subcut Q12H 12/20/21 04/30/23 History mL) subcutaneous pen (Lantus Solostar U-100 Insulin) allopurinol 300 mg tablet 750 mg PO DAILY 04/14/22 04/30/23 History insulin regular hum U-500 conc 500 0 unit subcut ACHS 06/17/22 04/30/23 History unit/mL subcutaneous soln (Humulin R U-500 (Concentrated) Insulin) ferrous sulfate 325 mg (65 mg 325 mg PO BID #1 tab 04/29/23 04/30/23 Rx iron) tablet prednisone 10 mg tablet See Rx Instructions .Route 04/29/23 04/30/23 Rx .COMPLEX #12 tabs ropinirole 0.25 mg tablet 0.25 mg PO HS #0 tabs 04/29/23 04/30/23 Rx sulfamethoxazole 800 1 tab PO Q12 #0 tabs 04/29/23 04/30/23 Rx mg-trimethoprim 160 mg tablet (Bactrim DS) acetaminophen 325 mg tablet 650 mg PO Q4H PRN Pain 04/30/23 04/30/23 History (Tylenol) docusate sodium 100 mg capsule 100 mg PO BID 04/30/23 04/30/23 History enoxaparin 40 mg/0.4 mL 40 mg subcut DAILY 04/30/23 04/30/23 History subcutaneous syringe (Lovenox) gabapentin 400 mg capsule 1,200 mg PO DAILY 04/30/23 04/30/23 History melatonin 3 mg tablet 9 mg PO HS 04/30/23 04/30/23 History ondansetron HCl 4 mg tablet 4 mg PO Q4H PRN NAUSEA/VOMITING 04/30/23 04/30/23 History pantoprazole 40 mg tablet,delayed 40 mg PO HS 04/30/23 04/30/23 History release polyethylene glycol 3350 17 17 gm PO QDL PRN constipation 04/30/23 04/30/23 History gram/dose oral powder sennosides 8.6 mg-docusate sodium 1 tab-cap PO QDL PRN Constipation 04/30/23 04/30/23 History 50 mg tablet (Senokot-S) Allergies Allergy/AdvReac Type Severity Reaction Status Date / Time Calcium Channel Blocking Allergy Intermediate Rash, Verified 04/30/23 01:33 Agent Dilt swelling hydralazine Allergy Intermediate Rash Verified 04/30/23 01:33 amitriptyline AdvReac Intermediate Muscle Verified 04/30/23 01:33 twitching semaglutide [From Ozempic] AdvReac Intermediate Abdominal Verified 04/30/23 01:33 Pain Past Med/Surg History Medical History Chronic back pain Chronic diastolic congestive heart failure Chronic kidney disease Plan for possible dialysis in the future (under surveillance), will be placing fistula in near future preventatively Depression Diabetes IDDM Diastolic CHF Dyslipidemia Encounter for pre-operative examination GERD (gastroesophageal reflux disease) Hypertension Migraine Morbid obesity Osteoarthritis PAD (peripheral artery disease) Sleep apnea CPAP Temporomandibular joint disorder Occasional clicking, no locking Surgical History History of Achilles tendon repair Right Achilles repair (07/16/21): Grade 2 view, MAC#3, ETT 7.5 + PNB at [facility] History of incision and drainage Left foot multiple with skin graft (total of 5) Left foot I&D (10/08/20): LMA#5 at [facility] Left foot I&D, Stimulan beads (02/12/21): MAC at [facility] History of open reduction and internal fixation (ORIF) procedure Left ankle Bimalleolar Fracture (11/2019) History of placement of ear tubes Right ear History of tonsillectomy and adenoidectomy Hx of cataract surgery R/L Hx of colonoscopy Petroleum teeth extracted Family History Father Diabetes Mother Diabetes Other Coronary heart disease Hypertension No family history of adverse response to anesthesia Denies family history of Crohn's disease Kidney disease Colorectal cancer Ulcerative colitis Social History Smoking Status: Former smoker Tobacco Type: Cigarettes Second Hand Exposure: Yes; Do You Dip or Chew Tobacco: No; Hx Alcohol Use: No Hx Substance Use: No Preferred Language: Kinyarwanda Communication Ability: Effective Retail Sales Consultant Required: No Beliefs That Will Affect Care: None marital status: Current Living Situation: Rehab Current Living Situation Comment: resides with [facility] current occupational status: employed 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 Former Feels Safe at Home: Yes Assistive Devices: Cane and Walker Review of Systems A total of 10 systems reviewed and were otherwise negative Respiratory: + dyspnea Cardiovascular: no chest pain Physical Exam Vital Signs Vital Signs - 24 hr 04/30/23 01:14 04/30/23 01:25 04/30/23 01:25 Temperature 36.7 C Temperature Source Oral Pulse Rate 89 111 H Pulse Rate from SpO2 Sensor Pulse Rhythm Regular Respiratory Rate 40 H Respiratory Effort / Characteristics Spontaneous Labored Short of Breath Spontaneous Labored Short of Breath Respiratory Depth Normal Deep Respiratory Pattern Tachypnea Tachypnea Blood Pressure 140/66 Blood Pressure Mean 90 Blood Pressure Position Sitting Pulse Oximetry 96 Oxygen Delivery Method Non-rebreather Non-rebreather Oxygen Flow Rate 15 Sepsis Recent Fever Within 48 Hours No Sepsis New/Unexplained Change in Mental Status N/A Sepsis Action Taken by Nursing Physician Notified 04/30/23 01:16 04/30/23 01:30 04/30/23 02:14 Temperature Temperature Source Pulse Rate 109 H 88 82 Pulse Rate from SpO2 Sensor 84 88 82 Pulse Rhythm Respiratory Rate 38 H 27 H 19 Respiratory Effort / Characteristics Respiratory Depth Respiratory Pattern Blood Pressure 140/66 157/72 H 150/68 H Blood Pressure Mean 90 100 95 Blood Pressure Position Pulse Oximetry 96 97 95 Oxygen Delivery Method Non-rebreather Non-rebreather BiPAP Oxygen Flow Rate 15 15 Sepsis Recent Fever Within 48 Hours Sepsis New/Unexplained Change in Mental Status Sepsis Action Taken by Nursing GENERAL: Patient is awake alert in no acute distress patient is resting comfortably and showing no signs of anxiety EYES: The conjunctivae are clear. The pupils are round and reactive. EARS, NOSE, MOUTH AND THROAT: The nose is without any evidence of any deformity. Mucous membranes are moist. Tongue is midline. NECK: The neck is nontender and supple. RESPIRATORY: Normal respiratory effort is noted there is no evidence of wheezing rhonchi or rales; patient is on a nonrebreather however he speaking in full sentences in no distress CARDIOVASCULAR: Regular rate and rhythm noted there no murmurs rubs or gallops normal S1 normal S2. GASTROINTESTINAL: The abdomen is soft. Abdomen is nontender. Patient has areas of ecchymosis in the abdominal wall BACK: No midline tenderness or or step-off noted range of motion in flexion extension as well as rotation no signs of muscle spasm noted MUSCULOSKELETAL/EXTREMITIES: There is no evidence of gross deformity full range of motion is noted in the hips and shoulders. SKIN: Patient has lymphedema with significant skin changes to the feet NEUROLOGIC: Patient is awake alert and oriented x3 strength is symmetric Course Reevaluation(s) Reevaluation #1: Patient is much improved after being placed on BiPAP. Patient was given IV Lasix. Time: 03:02 Consultations Consultation #1: Case was discussed with the [facility] for admission Time: 03:03 Administered Medications Discontinued Medications Furosemide (Furosemide 40 Mg/4 Ml Vial) 80 mg IV ONE ONE Stop: 04/30/23 01:26 Last Admin: 04/30/23 02:10 Dose: 80 mg Documented By: SOURAV Critical Care Time Critical Care Time: Yes Total Critical Care Time: 35 I have personally spent greater than 35 minutes of critical care time in the direct management of this patient. This includes bedside care, interpretation of diagnostic studies, and testing, discussion with consultants, patient, and family members, and other required patient management activities. These minutes are in excess of all separately billable procedures. Medical Decision Making Medical Records Attestation: I reviewed the patient's medical records. Home Medications Current Medication List: was personally reviewed by mo Laboratory Data Attestation: I reviewed the patient's lab results. Patient has an elevated BUN and creatinine and anemia and hyperglycemia as interpreted by me 04/30/23 02:05 04/30/23 02:05 Lab Results 04/30/23 04/30/23 04/30/23 Range/Units 01:20 02:05 02:05 WBC 10.11 (4.8-10.8) K/ul RBC 3.54 L (4.70-6.10) M/uL Hgb 9.8 L (14.0-18.0) g/dl Hct 31.0 L (42.0-52.0) % MCV 87.6 (80.0-100.0) fL MCH 27.7 (25.0-34.0) pg MCHC 31.6 L (32.0-36.0) g/dL RDW Std Deviation 52.2 H (36.4-46.3) fL RDW Coeff of Diane 16.5 H (11.5-14.5) % Plt Count 351 (130-400) K/uL MPV 9.6 (9.4-12.4) fL Immature Gran % (Auto) 1.2 % Neut % (Auto) 78.0 % Lymph % (Auto) 9.9 % [place] % (Auto) 10.5 % Eos % (Auto) 0.3 % Baso % (Auto) 0.1 % Neut # (Auto) 7.89 H (1.40-6.50) K/uL Lymph # (Auto) 1.00 L (1.2-3.4) K/uL [place] # (Auto) 1.06 H (0.11-0.59) K/uL Eos # (Auto) 0.03 (0-0.50) K/uL Baso # (Auto) 0.01 (0-0.2) K/uL Immature Gran # (Auto) 0.12 (0.01-0.20) K/uL PT 11.9 (9.0-12.0) Seconds INR 1.1 (0.9-1.1) APTT 24.3 (21.0-31.0) Seconds PTT Ratio 0.9 Sodium (136-145) mmol/L Potassium (3.5-5.1) mmol/L Chloride (98-107) mmol/L Carbon Dioxide (21-32) mmol/L Anion Gap (3-11) BUN (6-23) mg/dl Creatinine (0.6-1.4) mg/dl Est Cr Clr Drug Dosing ml/min Est GFR ( Amer) ml/min Est GFR (Non-Af Amer) ml/min BUN/Creatinine Ratio (10-20) Glucose (70-99(Fasting)) mg/dl Calcium (8.6-10.3) mg/dl Magnesium (1.7-2.4) mg/dl Total Bilirubin (0.2-1.0) mg/dl Direct Bilirubin (0-0.2) mg/dl AST (13-39) U/L ALT (7-52) U/L Alkaline Phosphatase (34-104) U/L Troponin I High Sens (0-20) pg/ml Total Protein (6.0-8.3) gm/dl Albumin (3.4-5.0) gm/dl Procalcitonin (0-0.5) ng/ml SARS-CoV-2, RNA, NAAT NEGATIVE (NEGATIVE) 04/30/23 04/30/23 Range/Units 02:05 02:05 WBC (4.8-10.8) K/ul RBC (4.70-6.10) M/uL Hgb (14.0-18.0) g/dl Hct (42.0-52.0) % MCV (80.0-100.0) fL MCH (25.0-34.0) pg MCHC (32.0-36.0) g/dL RDW Std Deviation (36.4-46.3) fL RDW Coeff of Diane (11.5-14.5) % Plt Count (130-400) K/uL MPV (9.4-12.4) fL Immature Gran % (Auto) % Neut % (Auto) % Lymph % (Auto) % [place] % (Auto) % Eos % (Auto) % Baso % (Auto) % Neut # (Auto) (1.40-6.50) K/uL Lymph # (Auto) (1.2-3.4) K/uL [place] # (Auto) (0.11-0.59) K/uL Eos # (Auto) (0-0.50) K/uL Baso # (Auto) (0-0.2) K/uL Immature Gran # (Auto) (0.01-0.20) K/uL PT (9.0-12.0) Seconds INR (0.9-1.1) APTT (21.0-31.0) Seconds PTT Ratio Sodium 135 L (136-145) mmol/L Potassium 4.9 (3.5-5.1) mmol/L Chloride 101 (98-107) mmol/L Carbon Dioxide 27 (21-32) mmol/L Anion Gap 7 (3-11) BUN 63 H (6-23) mg/dl Creatinine 1.43 H (0.6-1.4) mg/dl Est Cr Clr Drug Dosing 71.0 ml/min Est GFR ( Amer) 63.0 ml/min Est GFR (Non-Af Amer) 54.4 ml/min BUN/Creatinine Ratio 44.1 H (10-20) Glucose 236 H (70-99(Fasting)) mg/dl Calcium 9.1 (8.6-10.3) mg/dl Magnesium 2.3 (1.7-2.4) mg/dl Total Bilirubin 0.3 (0.2-1.0) mg/dl Direct Bilirubin 0.1 (0-0.2) mg/dl AST 23 (13-39) U/L ALT 26 (7-52) U/L Alkaline Phosphatase 150 H (34-104) U/L Troponin I High Sens 12.0 (0-20) pg/ml Total Protein 7.0 (6.0-8.3) gm/dl Albumin 3.0 L (3.4-5.0) gm/dl Procalcitonin 0.21 (0-0.5) ng/ml SARS-CoV-2, RNA, NAAT (NEGATIVE) Imaging Data Attestation: I personally reviewed and interpreted this imaging study as follows: My Impression: Chest x-ray interpreted by me CHF ECG Data Attestation: I personally reviewed and interpreted this ECG as follows: Additional Comments: EKG interpreted by me normal sinus rhythm left anterior hemiblock left axis dev iation poor R wave progression the precordium, no obvious ST segment elevation or depression rate of 86 Telemetry interpreted by me normal sinus rhythm rate of 86 MDM Narrative Medical decision making differential diagnosis includes sepsis, pneumonia, CHF, metabolic derangement, anemia Plan is to check labs, EKG, chest x-ray Prior medical records were reviewed by me EMS gave me bedside report Patient was started on BiPAP, patient improved was not hypoxic, patient was started on IV Lasix for congestive heart failure Patient will be admitted for hypoxia and CHF Impression & Plan CHF (congestive heart failure), Anemia, Acute hyperglycemia, Hypoxia Discharge Plan Visit Data Chief Complaint: Respiratory Distress ED Provider: Marbin West Discharge Problem: CHF (congestive heart failure), Anemia, Acute hyperglycemia, Hypoxia Patient Disposition: Admitted As Inpatient Forms Stand Alone Forms: My [facility] [employer] Prescriptions Prescriptions: No Action aspirin 81 mg capsule 81 mg PO Q12 doxazosin 4 mg tablet 4 mg PO HS allopurinol 300 mg tablet 750 mg PO DAILY Rx Instructions: Take 2 & 1/2 tabs. Lantus Solostar U-100 Insulin 100 unit/mL (3 mL) insulin pen 60 unit subcut Q12H magnesium oxide 400 mg Capsule 400 mg PO HS atorvastatin 80 mg Tablet 80 mg PO QPM metoprolol succinate 50 mg Tablet Extended Release 24 Hr 150 mg PO DAILY Rx Instructions: STARTING 04/30/23 gabapentin 600 mg tablet 600 mg PO HS Humulin R U-500 (Conc) Insulin 500 unit/mL solution 0 unit subcut ACHS Rx Instructions: BSG 70-130=0 UNITS, 131-180=2 UNITS, 181-240=4 UNITS, 241-300=6 UNITS, 301- 350=8 UNITS, 351-400=10 UNITS, GREATER THAN 400=12 UNITS. cholecalciferol (vitamin D3) [Vitamin D3] 25 mcg (1,000 unit) tablet,chewable 2,000 units PO QPM fluticasone propionate [Flonase Allergy Relief] 50 mcg/actuation Spra y,Suspension 1 spray INTRANASAL BID PRN (Reason: Allergy Symptoms) magnesium hydroxide [Milk of Magnesia] 400 mg/5 mL Suspension 30 ml PO DAILY PRN (Reason: Constipation) ascorbic acid (vitamin C) 500 mg Tablet 500 mg PO BID Multivitamin 50 Plus Tablet 1 tab PO QAM cyanocobalamin (vitamin B-12) 1,000 mcg Tablet 1,000 mcg PO HS hydroxyzine HCl 25 mg Tablet 25 mg PO Q6 PRN (Reason: Itching) sulfamethoxazole-trimethoprim [Bactrim DS] 800-160 mg Tablet 1 tab PO Q12 Qty: 0 0RF Rx Instructions: STARTED 04/29/23 ropinirole 0.25 mg Tablet 0.25 mg PO HS Qty: 0 0RF prednisone 10 mg tablet See Rx Instructions .ROUTE .COMPLEX Qty: 12 0RF Rx Instructions: STARTED 04/29/23---10 mg orally 3 times a day for 2 days, then 10 mg twice a day for 2 days, then 10 mg once a day for 2 days, then stop ferrous sulfate 325 mg (65 mg iron) tablet 325 mg PO BID Qty: 1 0RF acetaminophen [Tylenol] 325 mg Tablet 650 mg PO Q4H PRN (Reason: Pain) ondansetron HCl [Zofran] 4 mg Tablet 4 mg PO Q4H PRN (Reason: NAUSEA/VOMITING) sennosides-docusate sodium [Senokot-S] 8.6-50 mg Tablet 1 tab-cap PO QDL PRN (Reason: Constipation) gabapentin 400 mg Capsule 1,200 mg PO DAILY Rx Instructions: STARTING 04/30/23 melatonin 3 mg Tablet 9 mg PO HS pantoprazole 40 mg Tablet,Delayed Release (Dr/Ec) 40 mg PO HS docusate sodium 100 mg Capsule 100 mg PO BID enoxaparin [Lovenox] 40 mg/0.4 mL Syringe 40 mg SUBCUT DAILY Rx Instructions: STARTING 04/30/23 @ 0700 polyethylene glycol 3350 17 gram/dose powder 17 gm PO QDL PRN (Reason: constipation) Referrals Referrals: Marbella Membreno PA-C [Primary Care Provider] -
[2023-04-30] MEDS ORDERED: FUROSEMIDE 40 MG/4 ML VIAL IV ONE (01:25)
[2023-04-30 02:24] LABS: Basophils # (auto) 0.01 K/uL (0-0.2); Basophils % (auto) 0.1 %; Eosinophils # (auto) 0.03 K/uL (0-0.50); Eosinophils % (auto) 0.3 %; Hemoglobin 9.8 g/dl (14.0-18.0); Immature Granulocytes # (auto) 0.12 K/uL (0.01-0.20); Immature Granulocytes % (auto) 1.2 %; Lymphocytes % (auto) 9.9 %; Mean Corpuscular Hemoglobin 27.7 pg (25.0-34.0); Mean Corpuscular Hgb Conc 31.6 g/dL (32.0-36.0); Mean Corpuscular Volume 87.6 fL (80.0-100.0); Mean Platelet Volume 9.6 fL (9.4-12.4); Monocytes # (auto) 1.06 K/uL (0.11-0.59); Monocytes % (auto) 10.5 %; Neutrophils # (auto) 7.89 K/uL (1.40-6.50); Platelet Count 351 K/uL (130-400); RDW Coefficient of Variation 16.5 % (11.5-14.5); RDW Standard Deviation 52.2 fL (36.4-46.3); Red Blood Count 3.54 M/uL (4.70-6.10); White Blood Count 10.11 K/ul (4.8-10.8)
[2023-04-30 02:40] LABS: BUN Creatinine Ratio 44.1 (10-20); Bilirubin Direct 0.1 mg/dl (0-0.2); Bilirubin,Total 0.3 mg/dl (0.2-1.0); Calcium 9.1 mg/dl (8.6-10.3); Est GFR (Non-African American) 54.4 ml/min; Magnesium 2.3 mg/dl (1.7-2.4); Potassium 4.9 mmol/L (3.5-5.1)
[2023-04-30 02:59] LABS: INR 1.1 (0.9-1.1); Partial Thromboplastin Ratio 0.9; Partial Thromboplastin Time 24.3 Seconds (21.0-31.0); Prothrombin Time 11.9 Seconds (9.0-12.0)
--- NOTE | 2023-04-30 03:44 | History & Physical Report ---
Date of Service April 30, 2023 Assessment & Plan (1) Acute respiratory failure with hypoxia: Plan: Patient with acute hypoxic respiratory failure requiring placement of BiPAP. Likely secondary to volume overload - patient with recent admission for multifocal PNA. He has been on steroids. Received transfusion as well - could consider TRALI - TACO contributing as well. He is improved after 80mg IV lasix and Bipap -Monitor UOP -Patient may need an additional dose of Lasix - not ordered yet -Daily weight -Repeat chemistry in AM -Wean BiPAP as tolerated (2) CHF (congestive heart failure): (3) Anemia: Plan: H/H near baseline. No active bleeding -Monitor CBC (4) PAD (peripheral artery disease): Plan: Chronic -Continue ASA and Atorvastatin (5) Osteomyelitis: Plan: Chronic -Continue Bactrim -Wound care as needed (6) Hypertension: Plan: Blood pressure well controlled. -Continue Metoprolol -Monitor (7) HLD (hyperlipidemia): Plan: Chronic -Continue Atorvastatin (8) Diabetes: Plan: Elevated blood sugar today at 236. Last HgbA1C on 04/02/23 = 9.8 -Lantus 60u BID -ISS -Goal blood sugar 110 - 140 F/E/N - Diuresis as above, monitor electroltyes and replete as needed, CC/Low Na diet as tolerated Ppx - Lovenox Code - Full Dispo Admit to PCU History of Present Illness Chief Complaint: shortness of breath Primary Care Provider: Marbella Membreno PA-C Reid Swartz is a 57yo male with multiple medical comorbidities to include chronic diastolic CHF, CKD, DM, Depression, HLP, GERD, HTN, PAD. Patient was recently admitted to [facility] from 04/24/23 - 04/29/23 with acute hypoxic respiratory failure secondary to viral PNA and anemia as well as osteomyelitis of the right foot. Patient was treated with steroids as well as antibiotics during his stay. He was transfused with 1u PRBCs as well. He returned to [facility] on 04/29/23. Shortly after retrning to [facility] he became acutely short of breath after using the urinal. He checked his oxygen saturation at that time and he was 62% on room air. He denies fever, chills. He has a persistent cough that is dry. Chronic bi lateral LE edema unchanged. Patient placed on rescue BiPAP in the ER and administered Lasix 80mg IV. He feels markedly improved. Presently on BiPAP 10/5, 50% FiO2. Breathing comfortably with adequate oxygenation. Speaking in complete sentences. ER Course: Lasix 80mg IV Allergies Allergy/AdvReac Type Severity Reaction Status Date / Time Calcium Channel Blocking Allergy Intermediate Rash, Verified 04/30/23 01:33 Agent Dilt swelling hydralazine Allergy Intermediate Rash Verified 04/30/23 01:33 amitriptyline AdvReac Intermediate Muscle Verified 04/30/23 01:33 twitching semaglutide [From Ozempic] AdvReac Intermediate Abdominal Verified 04/30/23 01:33 Pain Home Medications Medication Instructions Recorded Confirmed Type atorvastatin 80 mg tablet 80 mg PO QPM 08/02/18 04/30/23 History magnesium oxide 400 mg PO HS 08/02/18 04/30/23 History metoprolol succinate 50 mg 150 mg PO DAILY 08/02/18 04/30/23 History tablet,extended release 24 hr cholecalciferol (vitamin D3) 25 2,000 units PO QPM 11/19/19 04/30/23 History mcg (1,000 unit) chewable tablet (Vitamin D3) gabapentin 600 mg tablet 600 mg PO HS 12/06/19 04/30/23 History fluticasone propionate 50 1 spray intranasal BID PRN Allergy 05/05/20 04/30/23 History mcg/actuation nasal Symptoms spray,suspension (Flonase Allergy Relief) doxazosin 4 mg tablet 4 mg PO HS 10/01/20 04/30/23 History magnesium hydroxide 400 mg/5 mL 30 ml PO DAILY PRN Constipation 07/28/21 04/30/23 History oral suspension (Milk of Magnesia) ascorbic acid (vitamin C) 500 mg 500 mg PO BID 08/08/21 04/30/23 History tablet [id number] 1 tab PO QAM 08/08/21 04/30/23 History tablet (Multivitamin 50 Plus tablet) cyanocobalamin (vitamin B-12) 1,000 mcg PO HS 08/11/21 04/30/23 History 1,000 mcg tablet hydroxyzine HCl 25 mg tablet 25 mg PO Q6 PRN Itching 08/11/21 04/30/23 History aspirin 81 mg capsule 81 mg PO Q12 09/21/21 04/30/23 History insulin glargine 100 unit/mL (3 60 unit subcut Q12H 12/20/21 04/30/23 History mL) subcutaneous pen (Lantus Solostar U-100 Insulin) allopurinol 300 mg tablet 750 mg PO DAILY 04/14/22 04/30/23 History insulin regular hum U-500 conc 500 0 unit subcut ACHS 06/17/22 04/30/23 History unit/mL subcutaneous soln (Humulin R U-500 (Concentrated) Insulin) ferrous sulfate 325 mg (65 mg 325 mg PO BID #1 tab 04/29/23 04/30/23 Rx iron) tablet prednisone 10 mg tablet See Rx Instructions .Route 04/29/23 04/30/23 Rx .COMPLEX #12 tabs ropinirole 0.25 mg tablet 0.25 mg PO HS #0 tabs 04/29/23 04/30/23 Rx sulfamethoxazole 800 1 tab PO Q12 #0 tabs 04/29/23 04/30/23 Rx mg-trimethoprim 160 mg tablet (Bactrim DS) acetaminophen 325 mg tablet 650 mg PO Q4H PRN Pain 04/30/23 04/30/23 History (Tylenol) docusate sodium 100 mg capsule 100 mg PO BID 04/30/23 04/30/23 History enoxaparin 40 mg/0.4 mL 40 mg subcut DAILY 04/30/23 04/30/23 History subcutaneous syringe (Lovenox) gabapentin 400 mg capsule 1,200 mg PO DAILY 04/30/23 04/30/23 History melatonin 3 mg tablet 9 mg PO HS 04/30/23 04/30/23 History ondansetron HCl 4 mg tablet 4 mg PO Q4H PRN NAUSEA/VOMITING 04/30/23 04/30/23 History pantoprazole 40 mg tablet,delayed 40 mg PO HS 04/30/23 04/30/23 History release polyethylene glycol 3350 17 17 gm PO QDL PRN constipation 04/30/23 04/30/23 History gram/dose oral powder sennosides 8.6 mg-docusate sodium 1 tab-cap PO QDL PRN Constipation 04/30/23 04/30/23 History 50 mg tablet (Senokot-S) Past Med/Surg History Medical History Chronic back pain Chronic diastolic congestive heart failure Chronic kidney disease Plan for possible dialysis in the future (under surveillance), will be placing fistula in near future preventatively Depression Diabetes IDDM Diastolic CHF Dyslipidemia Encounter for pre-operative examination GERD (gastroesophageal reflux disease) Hypertension Migraine Morbid obesity Osteoarthritis PAD (peripheral artery disease) Sleep apnea CPAP Temporomandibular joint disorder Occasional clicking, no locking Surgical History History of Achilles tendon repair Right Achilles repair (07/16/21): Grade 2 view, MAC#3, ETT 7.5 + PNB at [facility] History of incision and drainage Left foot multiple with skin graft (total of 5) Left foot I&D (10/08/20): LMA#5 at [facility] Left foot I&D, Stimulan beads (02/12/21): MAC at [facility] History of open reduction and internal fixation (ORIF) procedure Left ankle Bimalleolar Fracture (11/2019) History of placement of ear tubes Right ear History of tonsillectomy and adenoidectomy Hx of cataract surgery R/L Hx of colonoscopy [place] teeth extracted Family History Father Diabetes Mother Diabetes Other Coronary heart disease Hypertension No family history of adverse response to anesthesia Denies family history of Crohn's disease Kidney disease Colorectal cancer Ulcerative colitis Social History Smoking Status: Former smoker Tobacco Type: Cigarettes Second Hand Exposure: Yes; Do You Dip or Chew Tobacco: No; Hx Alcohol Use: No Hx Substance Use: No Preferred Language: Greek Communication Ability: Effective Electronic Imaging System Operator Required: No Beliefs That Will Affect Care: None marital status: Current Living Situation: Rehab Current Living Situation Comment: resides with huma current occupational status: employed 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 [facility] Press About Us Feels Safe at Home: Yes Assistive Devices: Cane and Walker Review of Systems Review of Systems: All systems reviewed & are unremarkable except as noted in HPI & below Physical Exam Physical Exam: General: patient resting comfortably, NAD, non-toxic in appearance, AA&O x 4, BiPAP in place Skin: warm, dry, intact, no rashes or lesions HEENT: NC/AT, PERRL, EOMI, anicteric sclera, conjunctiva without injection, external ear normal to inspection and nontender, nares patent, moist mucus membranes, dentition intact, no oropharyngeal lesions, neck supple, trachea midline, no LAD, no thyromegaly, no JVD Heart: +S1/S2, regular, no m/r/g Lungs: coarse breath sounds bilaterally, no wheeze Abd: +BS, soft, NT/ND, no masses/organomegaly/ascites Ext: warm, 2+ pulses in UE/LE bilaterally, no clubbing/cyanosis, RLE dressing in place, chronic lymphedema with increased swelling in R > L LE Neuro: nonfocal, patient AA&O x 4, speech intact, no facial droop, moving all extremities on command with equal strength 5/5 Results & Data Results & Data Vital Signs (Past 12 Hours) Vital Signs Temp Pulse Resp BP Pulse Ox O2 Del Method O2 Flow Rate 04/30/23 02:14 82 19 150/68 H 95 BiPAP 04/30/23 01:30 88 27 H 157/72 H 97 Non-rebreather 15 04/30/23 01:16 109 H 38 H 140/66 96 Non-rebreather 15 04/30/23 01:25 Non-rebreather 04/30/23 01:25 36.7 C 111 H 40 H 140/66 96 Non-rebreather 15 04/30/23 01:14 89 Laboratory Results Laboratory Results WBC 10.11 K/ul (4.8-10.8) 04/30/23 02:05 RBC 3.54 M/uL (4.70-6.10) L 04/30/23 02:05 Hgb 9.8 g/dl (14.0-18.0) L 04/30/23 02:05 Hct 31.0 % (42.0-52.0) L 04/30/23 02:05 MCV 87.6 fL (80.0-100.0) 04/30/23 02:05 MCH 27.7 pg (25.0-34.0) 04/30/23 02:05 MCHC 31.6 g/dL (32.0-36.0) L 04/30/23 02:05 RDW Std Deviation 52.2 fL (36.4-46.3) H 04/30/23 02:05 RDW Coeff of Diane 16.5 % (11.5-14.5) H 04/30/23 02:05 Plt Count 351 K/uL (130-400) 04/30/23 02:05 MPV 9.6 fL (9.4-12.4) 04/30/23 02:05 Immature Gran % (Auto) 1.2 % 04/30/23 02:05 Neut % (Auto) 78.0 % 04/30/23 02:05 Lymph % (Auto) 9.9 % 04/30/23 02:05 [place] % (Auto) 10.5 % 04/30/23 02:05 Eos % (Auto) 0.3 % 04/30/23 02:05 Baso % (Auto) 0.1 % 04/30/23 02:05 Neut # (Auto) 7.89 K/uL (1.40-6.50) H 04/30/23 02:05 Lymph # (Auto) 1.00 K/uL (1.2-3.4) L 04/30/23 02:05 [place] # (Auto) 1.06 K/uL (0.11-0.59) H 04/30/23 02:05 Eos # (Auto) 0.03 K/uL (0-0.50) 04/30/23 02:05 Baso # (Auto) 0.01 K/uL (0-0.2) 04/30/23 02:05 Immature Gran # (Auto) 0.12 K/uL (0.01-0.20) 04/30/23 02:05 PT 11.9 Seconds (9.0-12.0) 04/30/23 02:05 INR 1.1 (0.9-1.1) 04/30/23 02:05 APTT 24.3 Seconds (21.0-31.0) 04/30/23 02:05 PTT Ratio 0.9 04/30/23 02:05 Sodium 135 mmol/L (136-145) L 04/30/23 02:05 Potassium 4.9 mmol/L (3.5-5.1) 04/30/23 02:05 Chloride 101 mmol/L (98-107) 04/30/23 02:05 Carbon Dioxide 27 mmol/L (21-32) 04/30/23 02:05 Anion Gap 7 (3-11) 04/30/23 02:05 BUN 63 mg/dl (6-23) H 04/30/23 02:05 Creatinine 1.43 mg/dl (0.6-1.4) H 04/30/23 02:05 Est Cr Clr Drug Dosing 71.0 ml/min 04/30/23 02:05 Est GFR ( Amer) 63.0 ml/min 04/30/23 02:05 Est GFR (Non-Af Amer) 54.4 ml/min 04/30/23 02:05 BUN/Creatinine Ratio 44.1 (10-20) H 04/30/23 02:05 Glucose 236 mg/dl (70-99(Fasting)) H 04/30/23 02:05 Lactate 1.7 mmol/L (0.4-2.0) 04/30/23 02:55 Calcium 9.1 mg/dl (8.6-10.3) 04/30/23 02:05 Magnesium 2.3 mg/dl (1.7-2.4) 04/30/23 02:05 Total Bilirubin 0.3 mg/dl (0.2-1.0) 04/30/23 02:05 Direct Bilirubin 0.1 mg/dl (0-0.2) 04/30/23 02:05 AST 23 U/L (13-39) 04/30/23 02:05 ALT 26 U/L (7-52) 04/30/23 02:05 Alkaline Phosphatase 150 U/L (34-104) H 04/30/23 02:05 Troponin I High Sens 12.0 pg/ml (0-20) 04/30/23 02:05 B-Natriuretic Peptide 219 pg/ml (0-100) H 04/30/23 02:55 Total Protein 7.0 gm/dl (6.0-8.3) 04/30/23 02:05 Albumin 3.0 gm/dl (3.4-5.0) L 04/30/23 02:05 Procalcitonin 0.21 ng/ml (0-0.5) 04/30/23 02:05 SARS-CoV-2, RNA, NAAT NEGATIVE (NEGATIVE) 04/30/23 01:20 PG Care Time/CCT Total # of Minutes Spent Total Time Spent with Patient: Total time spent is greater than 50% in coordination of care (as documented) at patient's floor/unit and/or counseling patient: Coding Level of Care Code 98303 INT INP/OBS CARE 3/75MIN Diagnoses Acute respiratory failure with hypoxia J96.01 CHF (congestive heart failure) I50.9 Anemia D64.9 PAD (peripheral artery disease) I73.9 Osteomyelitis M86.9 Hypertension I10 HLD (hyperlipidemia) E78.5 Diabetes E11.621; L97.509; Z79.4 Diabetes mellitus type: type 2 Diabetes mellitus residential insulin use: with watermaster use Diabetes mellitus complication status: with skin complications Diabetes mellitus complication detail: with foot ulcer (8) Diabetes Diabetes mellitus type: type 2 Diabetes mellitus watermaster insulin use: with residential use Diabetes mellitus complication status: with skin complications Diabetes mellitus complication detail: with foot ulcer Qualified Code(s): E11.621 - Type 2 diabetes mellitus with foot ulcer; L97.509 - Non-pressure chronic ulcer of other part of unspecified foot with unspecified severity; Z79.4 - halfway (current) use of insulin
[2023-04-30] MEDS ORDERED: GLUCOSE 40% GEL 15 GM TUBE PO PRN (05:29)
[2023-04-30] MEDS ORDERED: DOCUSATE SODIUM/SENNA 50/8.6MG TAB PO PRN (05:29)
[2023-04-30] MEDS ORDERED: POLYETHYLENE (MIRALAX) 17 GM PACK PO PRN (05:29)
[2023-04-30] MEDS ORDERED: DEXTROSE 50% 50 ML SYRINGE IV PRN (05:29)
[2023-04-30] MEDS ORDERED: GLUCOSE 10 TAB/TUBE PO PRN (05:29)
[2023-04-30] MEDS ORDERED: NON-FORMULARY MEDICATION (Insulin Glargine [Lantus Solostar U-100 Insulin] 100 unit/mL (3 SQ SCH (05:29)
[2023-04-30] MEDS ORDERED: GLUCAGON FOR INJ 1 MG VIAL SQ PRN (05:29)
[2023-04-30] MEDS ORDERED: ONDANSETRON INJ 2 MG/ML 2 ML VIAL IV PRN (05:29)
[2023-04-30] MEDS ORDERED: MAGNESIUM HYDROXIDE SUSP 30 ML UDC PO PRN (05:29)
[2023-04-30] MEDS: ACETAMINOPHEN 325 MG TAB PO PRN (06:21)
[2023-04-30] MEDS: ENOXAPARIN INJ 40 MG/0.4 ML SYR SQ SCH (06:21)
--- NOTE | 2023-04-30 07:32 | XRay Report ---
SINGLE VIEW CHEST CLINICAL HISTORY: Sepsis. FINDINGS: An AP, portable, upright chest radiograph is compared to study dated 04/28/2023. Correlation is made with chest CT dated 01/17/2018. A right PICC line has been removed. The heart is enlarged. Mul tifocal airspace opacities are again seen throughout both lungs, asymmetrically greater on the right. No large pleural effusion on pneumothorax is seen. The bony thorax is grossly intact. IMPRESSION: 1. Multifocal airspace opacities are again seen throughout both lungs, asymmetrically greater on the right. This is unchanged to modestly worsened as compared to 04/28/2023. This could represent pulmonar y edema, multifocal pneumonia, and/or ARDS. Clinical correlation will be required and radiographic fo llow-up to resolution is recommended. 2. Cardiomegaly. 3. No large pleural effusion is seen. ACT 112: Negative or not required by law. Electronically signed by: Fernando Carver M.D. 04/30/2023 7:29 AM
[2023-04-30] MEDS: INSULIN ASPART PER UNIT CHARGE SC SCH ×4 (08:34→20:19)
[2023-04-30] MEDS: LANTUS PER UNIT CHARGE SQ SCH ×2 (08:41→21:19)
[2023-04-30] MEDS: DOCUSATE SODIUM 100 MG CAP PO SCH ×2 (09:00→21:08)
[2023-04-30] MEDS: allopurinoL 300 MG TAB PO SCH (09:10)
[2023-04-30] MEDS: ASPIRIN 81 MG ECTAB PO SCH ×2 (09:11→21:09)
[2023-04-30] MEDS: GABAPENTIN 400 MG CAP PO SCH (09:12)
[2023-04-30] MEDS: predniSONE 10 MG TABLET PO SCH ×3 (09:12→19:22)
[2023-04-30] MEDS: SULFAMETHOXAZOLE/TRIMETHOPRIM DS 800/160MG TAB PO SCH ×2 (09:12→21:09)
[2023-04-30] MEDS: FUROSEMIDE 40 MG/4 ML VIAL IV SCH ×2 (10:56→17:47)
[2023-04-30] MEDS: METOPROLOL SUCC 50MG EXT REL TAB PO SCH (13:04)
--- NOTE | 2023-04-30 14:03 | Electrocardiogram Report ---
Test Reason : Blood Pressure : / mmHG Vent. Rate : 086 BPM Atrial Rate : 086 BPM P-R Int : 174 ms QRS Dur : 086 ms QT Int : 380 ms P-R-T Axes : 040 -53 055 degrees QTc Int : 454 ms Normal sinus rhythm Left anterior fascicular block Cannot rule out Inferior infarct (cited on or before 24-APR-2023) Abnormal ECG When compared with ECG of 24-APR-2023 08:14, No significant change was found Confirmed by Malik Paulino ([id number]) on 04/30/2023 2:03:00 PM Referred By: REFERRED SELF Confirmed By:Malik Paulino
--- NOTE | 2023-04-30 14:36 | Hospitalist Progress Note ---
Date of Service April 30, 2023 Assessment & Plan (1) Acute respiratory failure with hypoxia: Plan: Due to both viral pneumonia and acute exacerbation diastolic CHF. 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 No chest pain. He is currently on BiPAP. Will wean down to nasal cannula as tolerated. (2) CHF (congestive heart failure): Plan: Acute on chronic diastolic CHF. 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 Now on intravenous Lasix. Shell catheter has been placed to monitor accurate urine output. (3) Anemia: Plan: Chronic. No active bleeding. Serial labs (4) PAD (peripheral artery disease): Plan: Chronic. Continue ASA and Atorvastatin (5) Osteomyelitis: Plan: Right heel with open wound. He is being seen by Dr. Card, podiatry. Wound VAC in place. History of MRSA. Continue Bactrim (6) Hypertension: Plan: Stable. Continue current medical management (7) HLD (hyperlipidemia): Plan: Stable. Continue Atorvastatin (8) Diabetes: Plan: ADA diet. Basal Lantus twice daily. Sliding scale coverage. Current steroid therapy will undoubtedly aggravate glucose levels Plan Anticipate eventual return to [facility] sometime this coming week Admission and Anticipated Discharge Date Admission Date: April 30, 2023 Subjective Alert and oriented. He appears to have flashed into pulmonary edema hours after he was transferred to [facility]. He is now receiving Lasix diuresis. Shell catheter has been placed for accurate intake and output. Recent cardiac echo reveals normal left ventricular function. He has underlying viral pn eumonia and hypoxic respiratory failure Review of Systems Review of Systems: Constitutional-no fever or chills ENT-no blurred vision, no double vision, no epistaxis, no sore throat Respiratory-no cough, no wheezing. 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 this morning Cardiac-no palpitations, no chest pain, no syncope GI-no nausea, vomiting, diarrhea, melena, hematochezia -no urinary retention, no urinary incontinence, no dysuria, no hematuria Musculoskeletal-no joint pain, no muscle tenderness Skin-no bruising, no rashes, no pruritus Neuro-no isolated weakness, no paresthesia, no weakness Psych-no depression, no anxiety Physical Exam Physical Exam: General-alert and oriented x3, no fevers, no chills HEENT-head atraumatic and normocephalic, pupils equal and reactive to light, extraocular muscles intact Neck-no lymphadenopathy or thyromegaly, trachea midline Chest-bilateral inspiratory rales and scattered rhonchi. No wheezing Cardiac-regular rate and rhythm, normal S1 and S2 Abdomen-normal bowel sounds, nontender, no hepatosplenomegaly Extremities-chronic edema both feet. Large open wound on the right heel Neuro-cranial nerves II through XII intact, motor and sensory function within normal limits, strength symmetrical , no focal deficits Psych-normal affect, normal mood Results & Data Results & Data Vital Signs (Past 12 Hours) Vital Signs Temp Pulse Pulse Resp BP BP BP 04/30/23 11:28 36.9 C 87 22 142/65 H 04/30/23 07:20 94 H 32 H 04/30/23 07:04 36.7 C 93 H 20 166/73 H 04/30/23 06:00 04/30/23 05:20 39.7 C H 104 H 20 161/75 H 04/30/23 05:29 04/30/23 05:47 90 04/30/23 05:20 39.7 C H 104 H 18 161/75 H 04/30/23 05:20 04/30/23 04:24 93 H 25 H 115/75 Pulse Ox Pulse Ox O2 Del Method O2 Del Method O2 Flow Rate O2 Flow Rate FiO2 04/30/23 11:28 93 Oxymask 14 04/30/23 07:20 97 60 04/30/23 07:04 99 BiPAP 60 04/30/23 06:00 BiPAP 50 04/30/23 05:20 92 Oxymask 10 04/30/23 05:29 92 Oxymask 10 04/30/23 05:47 04/30/23 05:20 92 Oxymask 10 04/30/23 05:20 92 Oxymask 10 04/30/23 04:24 92 BiPAP Laboratory Results 04/30/23 02:05 04/30/23 02:05 PG Care Time/CCT Total # of Minutes Spent Total Time Spent with Patient: Total time spent is greater than 50% in coordination of care (as documented) at patient's floor/unit and/or counseling patient: Coding Level of Care Code 39680 SUB INP/OBS CARE 3/50MIN Diagnoses Acute respiratory failure with hypoxia J96.01 CHF (congestive heart failure) I50.9 Anemia D64.9 PAD (peripheral artery disease) I73.9 Osteomyelitis M86.9 Hypertension I10 HLD (hyperlipidemia) E78.5 Diabetes E11.621; L97.509; Z79.4 Diabetes mellitus type: type 2 Diabetes mellitus medical terminologist insulin use: with medical terminologist use Diabetes mellitus complication status: with skin complications Diabetes mellitus complication detail: with foot ulcer (8) Diabetes Diabetes mellitus type: type 2 Diabetes mellitus medical terminologist insulin use: with residential use Diabetes mellitus complication status: with skin complications Diabetes mellitus complication detail: with foot ulcer Qualified Code(s): E11.621 - Type 2 diabetes mellitus with foot ulcer; L97.509 - Non-pressure chronic ulcer of other part of unspecified foot with unspecified severity; Z79.4 - 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
[2023-04-30] MEDS ORDERED: MELATONIN 3 MG TAB PO SCH (21:00)
[2023-04-30] MEDS ORDERED: GABAPENTIN 600 MG TAB PO SCH (21:00)
[2023-04-30] MEDS ORDERED: DOXAZosin MESYLATE 4 MG TAB PO SCH (21:00)
[2023-04-30] MEDS ORDERED: ATORVASTATIN 40 MG TAB PO SCH (21:00)
[2023-04-30] MEDS: rOPINIRole HCL 0.25 MG TABLET PO SCH (21:08)
[2023-04-30] MEDS: PANTOprazole 40 MG TAB PO SCH (21:09)
[2023-05-01] MEDS: ENOXAPARIN INJ 40 MG/0.4 ML SYR SQ SCH (06:13)
--- NOTE | 2023-05-01 07:42 | XRay Report ---
XR chest 1V portable CLINICAL HISTORY: Congestive heart failure. COMPARISON STUDY: Chest radiograph April 30, 2023. FINDINGS: There is no pneumothorax or pleural effusion. Interstitial thickening and multifocal airspa ce opacities are again noted. These are slightly greater on the right. Slight improvement is noted si nce prior exam. Cardiomegaly is unchanged. IMPRESSION: Slight decrease in interstitial thickening and multifocal airspace opacities, greater wi thin the right lung. Differential considerations include pulmonary edema, multifocal pneumonia and AR DS. ACT 112: Negative or not required by law. Electronically signed by: Rafat Powell M.D. 05/01/2023 7:41 AM
[2023-05-01] MEDS: INSULIN ASPART PER UNIT CHARGE SC SCH ×3 (08:19→20:47)
[2023-05-01] MEDS: LANTUS PER UNIT CHARGE SQ SCH ×2 (08:20→20:47)
[2023-05-01] MEDS: METOPROLOL SUCC 50MG EXT REL TAB PO SCH (08:27)
[2023-05-01] MEDS: SULFAMETHOXAZOLE/TRIMETHOPRIM DS 800/160MG TAB PO SCH (08:27)
[2023-05-01] MEDS: DOCUSATE SODIUM 100 MG CAP PO SCH (08:27)
[2023-05-01] MEDS: GABAPENTIN 400 MG CAP PO SCH (08:27)
[2023-05-01] MEDS: predniSONE 10 MG TABLET PO SCH (08:28)
[2023-05-01] MEDS: ASPIRIN 81 MG ECTAB PO SCH ×2 (08:28→20:47)
[2023-05-01] MEDS: allopurinoL 300 MG TAB PO SCH (08:28)
[2023-05-01] MEDS: FUROSEMIDE 40 MG/4 ML VIAL IV SCH (08:29)
[2023-05-01 08:35] LABS: Hematocrit (blood only) 31.8 % (42.0-52.0); Hemoglobin 9.7 g/dl (14.0-18.0); Mean Corpuscular Hemoglobin 27.3 pg (25.0-34.0); Mean Corpuscular Hgb Conc 30.5 g/dL (32.0-36.0); Mean Corpuscular Volume 89.6 fL (80.0-100.0); Mean Platelet Volume 9.4 fL (9.4-12.4); Platelet Count 321 K/uL (130-400); RDW Coefficient of Variation 17.2 % (11.5-14.5); RDW Standard Deviation 55.6 fL (36.4-46.3); Red Blood Count 3.55 M/uL (4.70-6.10); White Blood Count 10.95 K/ul (4.8-10.8)
[2023-05-01 08:45] LABS: Albumin Level 3.1 gm/dl (3.4-5.0); Bilirubin Direct 0.1 mg/dl (0-0.2); Bilirubin,Total 0.4 mg/dl (0.2-1.0); Calcium 9.4 mg/dl (8.6-10.3); Potassium 5.3 mmol/L (3.5-5.1)
[2023-05-01 08:51] LABS: BUN Creatinine Ratio 42.7 (10-20); Creatinine Clr Calc Pharmacy 57.8 ml/min; Est GFR (African American) 50.8 ml/min; Est GFR (Non-African American) 43.8 ml/min; Total Protein 7.2 gm/dl (6.0-8.3)
[2023-05-01 10:13] LABS: Base Excess ABG 7.4 mEq/L (-9-1.8); HCO3 ABG 31 mmol/L (19-24); Oxygen Saturation ABG 97.3 % (90-95); PCO2 ABG 40 mmHg (35-46); PO2 ABG 76 mmHg (80-95)
[2023-05-01 10:22] LABS: Allen Test Pos (Pos)
[2023-05-01] MEDS ORDERED: AZITHROMYCIN 500 MG in DEXTROSE 5% 250 ML IV STA (11:07)
[2023-05-01] MEDS ORDERED: CEFEPIME 1,000 MG in SYRINGE 0 ML IV SCH (11:15)
[2023-05-01] MEDS: CARBOHYDRATES FOR HYPOGLYCEMIA PO PRN ×3 (11:35→12:13)
--- NOTE | 2023-05-01 11:35 | Critical Care Consultation ---
Date of Consultation May 01, 2023 Assessment & Plan (1) ARDS (adult respiratory distress syndrome): (2) Viral pneumonitis: (3) Acute respiratory failure with hypoxia: (4) Coronavirus infection: (5) Osteomyelitis: (6) COSMO (acute kidney injury): (7) Hyperkalemia: Plan 57-year-old male with history of type 2 diabetes mellitus, osteomyelitis of his foot, failure of AV fistula, hypertension, WHIT, obesity, medical noncompliance CKD stage IV, dyslipidemia and diastolic CHF presenting to the hospital due to hypoxemic respiratory failure from viral pneumonitis. Neurologic: Patient agitated at present, but oriented and alert. May need to use low-dose Precedex to help with agitation while in the ICU. We will redirect the patient frequently and proceed with delirium precautions. Discontinue gabapentin. Pulmonary: Continue high flow nasal cannula while awake and consider the use of CPAP in the evening or when sleeping. Low threshold for intubation given increased work of breathing. We will obtain a CT chest without contrast to further evaluate the parenchymal lung disease. Suspect pneumonitis from viral disease. Patient denies any tobacco abuse within the last 10 years. He denies vaping. No other obvious hypersensitivity or pneumoconiosis type etiology as of yet. Patient is currently on disability. Denies any pets or travel exposure. Formoterol twice daily. We will strongly consider ARDS dosing of systemic corticosteroids for the fibroproliferative phase of ARDS. Start azithromycin and cefepime. Check beta D glucan. Check urine Legionella antigen. If the patient is intubated, will proceed with bronchoscopy. Cardiovascular: Maintain maps above 65 mmHg. Continue antihypertensives. Gastrointestinal: N.p.o. for the time being. Pantoprazole 40 mg nightly. Renal: COSMO on CKD. Check urinalysis. Follow urine output closely. Renal ultrasound ordered. Nephrology consultation placed. Discontinue allopurinol. Check CK level. Renal dosing of medications. He does have hyperkalemia possibly related to Bactrim and COSMO. Infectious disease: Patient with viral pneumonitis secondary to coronavirus. Start azithromycin and cefepime for possible superimposed bacterial infection. Patient also has a history of osteomyelitis and is currently on Bactrim. May need to discontinue Bactrim in light of the hyperkalemia and COSMO. We will hold the evening dose today. MRSA was isolated from his foot in March along with Enterococcus and E. coli. We will consider ID consultation. Hematologic: Patient with anemia of chronic disease. We will hold on further blood transfusions at this time. Endocrine: TSH checked in March was unremarkable. Maintain glucose under 180. Lines and tubes: Peripheral IVs and Shell catheter in place. VTE prophylaxis: Lovenox CODE STATUS: Full Family at bedside: Patient's daughter, Cindy Swartz, updated over the phone extensively. She understands that he is critically ill. She notes that her father recently underwent a divorce earlier in the year and has been in and out of the hospital since that time. She denies any overt alcohol abuse that she is aware of. She notes that he has been reluctant to receive care from home health nursing in the past. Disposition: ICU I have personally spent 46 minutes of critical care time in the direct management of this patient. This is a life/limb threatening event. This includes time spent evaluating patient, direct bedside care, chart review, placing order s, interpretation of diagnostic studies, discussion with consultants, patient, and family members, as well as other required patient management activities. This time is exclusive of all separately billable procedures, and teaching time and separate from and in addition to any other critical care service time. Thank you for allowing us to participate in the care of this patient. History of Present Illness Reason for Consultation: ARDS Attending Physician: Ken Esqueda MD History of Present Illness 57-year-old male with a history of medical noncompliance, diastolic heart failure, peripheral artery disease, osteomyelitis, dialysis AV fistula malfunction, CKD stage IV, WHIT and hypertension who presented to the hospital due to respiratory failure. [facility] then presented the next day due to shortness of breath. He was found to be anemic and received 1 unit of packed RBCs. There was concern of TACO or TRAIL due to the blood transfusion. He had a respiratory viral panel that was positive for coronavirus. He denies any fevers. He has profound shortness of breath with minimal exertion such as sitting up in bed or turning. Gets very agitated at times and takes his oxygen off per nursing staff. He occasionally gets verbally abusive with staff. He is currently on Bactrim for staph that was identified from the wound culture on his foot. Allergies Allergy/AdvReac Type Severity Reaction Status Date / Time Calcium Channel Blocking Allergy Intermediate Rash, Verified 04/30/23 01:33 Agent Dilt swelling hydralazine Allergy Intermediate Rash Verified 04/30/23 01:33 amitriptyline AdvReac Intermediate Muscle Verified 04/30/23 01:33 twitching semaglutide [From Ozempic] AdvReac Intermediate Abdominal Verified 04/30/23 01:33 Pain Home Medications Medication Instructions Recorded Confirmed Type atorvastatin 80 mg tablet 80 mg PO QPM 08/02/18 04/30/23 History magnesium oxide 400 mg PO HS 08/02/18 04/30/23 History metoprolol succinate 50 mg 150 mg PO DAILY 08/02/18 04/30/23 History tablet,extended release 24 hr cholecalciferol (vitamin D3) 25 2,000 units PO QPM 11/19/19 04/30/23 History mcg (1,000 unit) chewable tablet (Vitamin D3) gabapentin 600 mg tablet 600 mg PO HS 12/06/19 04/30/23 History fluticasone propionate 50 1 spray intranasal BID PRN Allergy 05/05/20 04/30/23 History mcg/actuation nasal Symptoms spray,suspension (Flonase Allergy Relief) doxazosin 4 mg tablet 4 mg PO HS 10/01/20 04/30/23 History magnesium hydroxide 400 mg/5 mL 30 ml PO DAILY PRN Constipation 07/28/21 04/30/23 History oral suspension (Milk of Magnesia) ascorbic acid (vitamin C) 500 mg 500 mg PO BID 08/08/21 04/30/23 History tablet [id number]-gwxqarib-jnqpqp 1 tab PO QAM 08/08/21 04/30/23 History tablet (Multivitamin 50 Plus tablet) cyanocobalamin (vitamin B-12) 1,000 mcg PO HS 08/11/21 04/30/23 History 1,000 mcg tablet hydroxyzine HCl 25 mg tablet 25 mg PO Q6 PRN Itching 08/11/21 04/30/23 History aspirin 81 mg capsule 81 mg PO Q12 09/21/21 04/30/23 History insulin glargine 100 unit/mL (3 60 unit subcut Q12H 12/20/21 04/30/23 History mL) subcutaneous pen (Lantus Solostar U-100 Insulin) allopurinol 300 mg tablet 750 mg PO DAILY 04/14/22 04/30/23 History insulin regular hum U-500 conc 500 0 unit subcut ACHS 06/17/22 04/30/23 History unit/mL subcutaneous soln (Humulin R U-500 (Concentrated) Insulin) ferrous sulfate 325 mg (65 mg 325 mg PO BID #1 tab 04/29/23 04/30/23 Rx iron) tablet prednisone 10 mg tablet See Rx Instructions .Route 04/29/23 04/30/23 Rx .COMPLEX #12 tabs ropinirole 0.25 mg tablet 0.25 mg PO HS #0 tabs 04/29/23 04/30/23 Rx sulfamethoxazole 800 1 tab PO Q12 #0 tabs 04/29/23 04/30/23 Rx mg-trimethoprim 160 mg tablet (Bactrim DS) acetaminophen 325 mg tablet 650 mg PO Q4H PRN Pain 04/30/23 04/30/23 History (Tylenol) docusate sodium 100 mg capsule 100 mg PO BID 04/30/23 04/30/23 History enoxaparin 40 mg/0.4 mL 40 mg subcut DAILY 04/30/23 04/30/23 History subcutaneous syringe (Lovenox) gabapentin 400 mg capsule 1,200 mg PO DAILY 04/30/23 04/30/23 History melatonin 3 mg tablet 9 mg PO HS 04/30/23 04/30/23 History ondansetron HCl 4 mg tablet 4 mg PO Q4H PRN NAUSEA/VOMITING 04/30/23 04/30/23 History pantoprazole 40 mg tablet,delayed 40 mg PO HS 04/30/23 04/30/23 History release polyethylene glycol 3350 17 17 gm PO QDL PRN constipation 04/30/23 04/30/23 History gram/dose oral powder sennosides 8.6 mg-docusate sodium 1 tab-cap PO QDL PRN Constipation 04/30/23 04/30/23 History 50 mg tablet (Senokot-S) Patient History Medical History (Updated 05/01/23 @ 11:31 by Al Donato MD) ARDS (adult respiratory distress syndrome) Chronic back pain Chronic diastolic congestive heart failure Chronic kidney disease Plan for possible dialysis in the future (under surveillance), will be placing fistula in near future preventatively Depression Diabetes IDDM Diastolic CHF Dyslipidemia Encounter for pre-operative examination GERD (gastroesophageal reflux disease) Hypertension Migraine Morbid obesity Osteoarthritis PAD (peripheral artery disease) Sleep apnea CPAP Temporomandibular joint disorder Occasional clicking, no locking Viral pneumonitis Surgical History History of Achilles tendon repair Right Achilles repair (07/16/21): Grade 2 view, MAC#3, ETT 7.5 + PNB at [facility] History of incision and drainage Left foot multiple with skin graft (total of 5) Left foot I&D (10/08/20): LMA#5 at [facility] Left foot I&D, Stimulan beads (02/12/21): MAC at [facility] History of open reduction and internal fixation (ORIF) procedure Left ankle Bimalleolar Fracture (11/2019) History of placement of ear tubes Right ear History of tonsillectomy and adenoidectomy Hx of cataract surgery R/L Hx of colonoscopy White teeth extracted Family History Father Diabetes Mother Diabetes Other Coronary heart disease Hypertension No family history of adverse response to anesthesia Denies family history of Crohn's disease Kidney disease Colorectal cancer Ulcerative colitis Social History Smoking Status: Former smoker Tobacco Type: Cigarettes Second Hand Exposure: Yes; Do You Dip or Chew Tobacco: No; Hx Alcohol Use: No Hx Substance Use: No Preferred Language: Polish Communication Ability: Effective Flexible Shaft Winder Required: No Beliefs That Will Affect Care: None marital status: Current Living Situation: Spouse Current Living Situation Comment: resides with huma current occupational status: employed 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 Patient is in moderate distress. Patient is well-developed. Obese. Eyes: Pupils are equal round and reactive to light. Conjunctivae are normal. Anicteric sclera. Ears nose, mouth and throat: Mallampati class 2. Normal posterior oropharynx. Uvula is midline. Neck: Trachea is midline. Visual inspection is normal. Respiratory: Diffuse crackles. Significant tachypnea. Increased work of breathing. Cardiovascular: Tachycardic. No murmurs. No edema. Gastrointestinal: Normal bowel sounds, soft, nontender and nondistended. No h epatosplenomegaly noted. Musculoskeletal: No cyanosis. Patient is able to move all extremities. Strength is 5 out of 5 in the upper and lower extremities. Skin: No rashes, warm dry and intact. Large open wound on the right heel that appears macerated. Neurologic: No obvious focal neurological deficits seen. Psychiatric: Alert and oriented x3 with a euthymic affect. Results & Data Results & Data Vital Signs (Past 12 Hours) Vital Signs Temp Pulse Pulse Resp BP Pulse Ox Pulse Ox 05/01/23 08:00 63 05/01/23 08:18 36.4 C L 69 22 131/71 90 05/01/23 07:22 74 22 91 05/01/23 05:29 96 05/01/23 03:25 64 17 93 05/01/23 03:42 36.3 C L 64 20 154/73 H 96 04/30/23 23:43 36.7 C 61 17 154/66 H 91 O2 Del Method O2 Del Method O2 Flow Rate FiO2 05/01/23 08:00 05/01/23 08:18 High Flow Nasal Cannula 35 80 05/01/23 07:22 High Flow Nasal Cannula 35 85 05/01/23 05:29 BiPAP 05/01/23 03:25 60 05/01/23 03:42 BiPAP 04/30/23 23:43 Oxymask 15 Coding Level of Care Code 74620 CRITICAL CARE 1ST 30-74M Diagnoses ARDS (adult respiratory distress syndrome) J80 Viral pneumonitis J12.9 Acute respiratory failure with hypoxia J96.01 Coronavirus infection B34.2 Osteomyelitis M86.9 COSMO (acute kidney injury) N17.9 Hyperkalemia E87.5
[2023-05-01] MEDS: CEFEPIME 2,000 MG in SYRINGE 0 ML IV SCH ×2 (11:52→23:39)
[2023-05-01 12:16] LABS: Eosinophils # (auto) 0.11 K/uL (0-0.50); Eosinophils % (auto) 1.2 %; Hematocrit (blood only) 31.1 % (42.0-52.0); Hemoglobin 9.6 g/dl (14.0-18.0); Immature Granulocytes % (auto) 1.1 %; Lymphocytes # (auto) 0.94 K/uL (1.2-3.4); Lymphocytes % (auto) 10.4 %; Mean Corpuscular Hemoglobin 27.6 pg (25.0-34.0); Mean Corpuscular Hgb Conc 30.9 g/dL (32.0-36.0); Mean Corpuscular Volume 89.4 fL (80.0-100.0); Mean Platelet Volume 9.1 fL (9.4-12.4); Monocytes # (auto) 0.69 K/uL (0.11-0.59); Monocytes % (auto) 7.6 %; Neutrophils # (auto) 7.21 K/uL (1.40-6.50); Neutrophils % (auto) 79.7 %; Platelet Count 289 K/uL (130-400); RDW Coefficient of Variation 17.3 % (11.5-14.5); RDW Standard Deviation 54.8 fL (36.4-46.3); Red Blood Count 3.48 M/uL (4.70-6.10); White Blood Count 9.05 K/ul (4.8-10.8)
[2023-05-01 12:33] LABS: Albumin Globulin Ratio 0.7 (0.9-2); BUN Creatinine Ratio 41.9 (10-20); Bilirubin,Total 0.4 mg/dl (0.2-1.0); Calcium 9.1 mg/dl (8.6-10.3); Creatinine Clr Calc Pharmacy 57.4 ml/min; Est GFR (African American) 50.4 ml/min; Est GFR (Non-African American) 43.5 ml/min; Globulin 4.2 gm/dl (2.5-4.0); Potassium 4.4 mmol/L (3.5-5.1); Total Protein 7.2 gm/dl (6.0-8.3)
[2023-05-01 12:39] LABS: Troponin I High Sensitivity 14.2 pg/ml (0-20)
[2023-05-01] MEDS ORDERED: SODIUM CHLOR 7% 4 ML NEB ONE (12:41)
[2023-05-01] MEDS ORDERED: ALBUT/IPRATROP 3MG/0.5MG NEB 3 ML VIAL ONE (12:41)
[2023-05-01 13:33] LABS: Appearance Urine Clear (Clear); Bacteria Urine Automated Negative (Negative); Bilirubin Urine Negative (Negative); Blood Urine 3+ (Negative); Color Urine Yellow; Epithelial Cell Urine Auto 0-5 /lpf (0-5); Glucose Urine UA Negative (Negative); Ketones Urine Negative (Negative); Leukocyte Esterase Urine Negative (Negative); Nitrite Urine Negative (Negative); Protein Urine 1+ (Negative); RBC Urine Automated >30 /hpf (0-4); Specific Gravity Urine 1.011 (1.000-1.030); Urobilinogen Urine Negative (Negative)
--- NOTE | 2023-05-01 13:44 | CT Scan Report ---
CT chest diagnostic wo con CT DOSE: 871.18 mGy.cm CLINICAL HISTORY: 57 years-old Male with hypoxia. Acute hypoxia TECHNIQUE: Multiaxial CT images of the chest were performed without contrast. A dose lowering techni que was utilized adhering to the principles of ALARA. COMPARISON: Chest radiograph of same day, CTA chest 01/17/2018 FINDINGS: Cardiac silhouette is enlarged. Decreased attenuation of the cardiac blood pool suggestive of anemia. Moderate to extensive coronary artery calcifications. Atherosclerosis of the thoracic aort a without aneurysm. Gynecomastia. Mild lymphadenopathy of the chest includes a 1.6 x 1.1 cm precarina l lymph node on image 80. Borderline enlarged paratracheal and hilar lymph nodes measure up to approx imately 10 mm. There is no pneumothorax, or pleural effusion. Moderate emphysema. Bilateral groundglass densities ar e noted with intralobular septal thickening, right greater than left. Mild intermixed airspace opacit ies. Central airways are patent. The spleen is mildly enlarged measuring up to 14 cm in length. No acute process of the imaged upper a bdomen. Unremarkable soft tissues. Mild superior endplate compression of the T11 vertebral body witho ut retropulsion, likely chronic. No acute fracture. IMPRESSION: 1. Confluent groundglass densities with intralobular septal thickening and mild intermixed airspace o pacities, right greater than left. Findings are suggestive of an atypical pneumonia versus ARDS. 2. Cardiomegaly without pleural effusion. 3. Mild mediastinal and hilar lymphadenopathy may be reactive. 4. Emphysema. ACT 112: Negative or not required by law. Electronically signed by: Alejandro Bautista M.D. 05/01/2023 1:42 PM
[2023-05-01] MEDS: methylPREDNISolone 40 MG in SYRINGE 0 ML IV SCH ×2 (14:19→20:47)
--- NOTE | 2023-05-01 14:37 | Hospitalist Progress Note ---
Date of Service May 01, 2023 Assessment & Plan (1) Acute respiratory failure with hypoxia: Plan: Due to both viral pneumonia and acute exacerbation diastolic CHF. Oxygen requirements have increased. He has been seen by pulmonary medicine. Working diagnosis now is ARDS. (2) CHF (congestive heart failure): Plan: Acute on chronic diastolic CHF. He may have a component of heart related pulmon sandeep edema but this could also be ARDS. He has been treated with intravenous Lasix. Shell catheter has been placed to monitor accurate urine output. (3) Anemia: Plan: Chronic. No active bleeding. Serial labs (4) PAD (peripheral artery disease): Plan: Chronic. Continue ASA and Atorvastatin (5) Osteomyelitis: Plan: Right heel with open wound. He is being seen by Dr. Card, podiatry. Wound VAC in place. History of MRSA. Continue Bactrim (6) Hypertension: Plan: Stable. Continue current medical management (7) HLD (hyperlipidemia): Plan: Stable. Continue Atorvastatin (8) Diabetes: Plan: ADA diet. Basal Lantus twice daily. Sliding scale coverage. Current steroid t herapy will undoubtedly aggravate glucose levels (9) ARDS (adult respiratory distress syndrome): Plan: He has been seen by pulmonary medicine. Working diagnosis now is ARDS. He has been transferred to the intensive care unit. Oxygen requirements have increased. He may need to be intubated. Plan To be determined Admission and Anticipated Discharge Date Admission Date: April 30, 2023 Subjective Oxygen requirements have increased. Chest x-ray looks worse. He was seen by pulmonary medicine. Working diagnosis is ARDS. He may need to be intubated. He has been transferred to the intensive care unit. Review of Systems Review of Systems: Constitutional-no fever or chills ENT-no blurred vision, no double vision, no epistaxis, no sore throat Respiratory-no cough, no wheezing. Sudden onset of shortness of breath developed during the senior integration architect hours 04/30 Cardiac-no palpitations, no chest pain, no syncope GI-no nausea, vomiting, diarrhea, melena, hematochezia -no urinary retention, no urinary incontinence, no dysuria, no hematuria Musculoskeletal-no joint pain, no muscle tenderness Skin-no bruising, no rashes, no pruritus Neuro-no isolated weakness, no paresthesia, no weakness Psych-no depression, no anxiety Physical Exam Physical Exam: General-somnolent but arousable and oriented. No fevers, no chills HEENT-head atraumatic and normocephalic, pupils equal and reactive to light, extraocular muscles intact Neck-no lymphadenopathy or thyromegaly, trachea midline Chest-bilateral inspiratory rales and scattered rhonchi. Tachypneic. No wheezi ng Cardiac-regular rate and rhythm, normal S1 and S2 Abdomen-normal bowel sounds, nontender, no hepatosplenomegaly Extremities-chronic edema both feet. Large open wound on the right heel Neuro-cranial nerves II through XII intact, motor and sensory function within normal limits, strength symmetrical , no focal deficits Psych-normal affect, normal mood Results & Data Results & Data Vital Signs (Past 12 Hours) Vital Signs Temp Pulse Pulse Resp BP Pulse Ox Pulse Ox 05/01/23 13:19 80 15 93 05/01/23 12:00 84 16 88 L 05/01/23 13:24 05/01/23 11:33 63 05/01/23 12:52 77 23 91 05/01/23 12:51 77 23 91 05/01/23 12:25 05/01/23 11:36 73 22 90 05/01/23 11:33 37.0 C 85 23 132/68 89 L 05/01/23 08:00 63 05/01/23 08:18 36.4 C L 69 22 131/71 90 05/01/23 07:22 74 22 91 05/01/23 05:29 96 05/01/23 03:25 64 17 93 05/01/23 03:42 36.3 C L 64 20 154/73 H 96 O2 Del Method O2 Del Method O2 Flow Rate FiO2 05/01/23 13:19 High Flow Nasal Cannula 35 80 05/01/23 12:00 05/01/23 13:24 High Flow Nasal Cannula 35 80 05/01/23 11:33 05/01/23 12:52 High Flow Nasal Cannula 35 80 05/01/23 12:51 High Flow Nasal Cannula 35 80 05/01/23 12:25 High Flow Nasal Cannula 35 80 05/01/23 11:36 High Flow Nasal Cannula 35 80 05/01/23 11:33 High Flow Nasal Cannula 35 80 05/01/23 08:00 05/01/23 08:18 High Flow Nasal Cannula 35 80 05/01/23 07:22 High Flow Nasal Cannula 35 85 05/01/23 05:29 BiPAP 05/01/23 03:25 60 05/01/23 03:42 BiPAP Laboratory Results 05/01/23 12:05 05/01/23 12:05 PG Care Time/CCT Total # of Minutes Spent Total Time Spent with Patient: Total time spent is greater than 50% in coordination of care (as documented) at patient's floor/unit and/or counseling patient: Coding Level of Care Code 77935 SUB INP/OBS CARE 3/50MIN Diagnoses Acute respiratory failure with hypoxia J96.01 CHF (congestive heart failure) I50.9 Anemia D64.9 PAD (peripheral artery disease) I73.9 Osteomyelitis M86.9 Hypertension I10 HLD (hyperlipidemia) E78.5 Diabetes E11.621; L97.509; Z79.4 Diabetes mellitus type: type 2 Diabetes mellitus senior living insulin use: with senior living use Diabetes mellitus complication status: with skin complications Diabetes mellitus complication detail: with foot ulcer ARDS (adult respiratory distress syndrome) J80 (8) Diabetes Diabetes mellitus type: type 2 Diabetes mellitus senior living insulin use: with buttermaker helper use Diabetes mellitus complication status: with skin complications Diabetes mellitus complication detail: with foot ulcer Qualified Code(s): E11.621 - Type 2 diabetes mellitus with foot ulcer; L97.509 - Non-pressure chronic ulcer of other part of unspecified foot with unspecified severity; 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
--- NOTE | 2023-05-01 16:23 | Nephrology Consultation ---
Date of Consultation May 01, 2023 Assessment & Plan (1) COSMO (acute kidney injury): (2) Anemia: (3) Acute respiratory failure with hypoxia: (4) Multifocal pneumonia: (5) Coronavirus infection: Plan 57-year-old gentleman with stage IIIB CKD b/l cr 1.5-1.6 although during recent hospitalization creatinine was low at around 1.3-1.4, admitted with hypoxic respiratory failure within 1 day after discharge recent hospitalization with possible viral pneumonitis. CT chest was concerning for ARDS versus viral pneumonitis with recent COVID-19 infection and also concern for transfusion reaction as recently he received PRBC. Continue has wounds to have bilateral lower extremity edema but was net negative more than 1 L with IV diuretics and slight change in creatinine concerning for some intravascular volume depletion. -- would hold diuretic this afternoon, accurate intake and output, aim for net negative, if needed diuretics can be resumed. Hypoxic respiratory failure less likely secondary to pulmonary edema more so related to viral pneumonitis versus ARDS. -- check iron study with morning labs, if iron deficiency, will consider IV iron otherwise give a dose of Epogen -- monitor renal function, electrolytes closely Will follow Thank you for allowing me to participate in your patient's care. It was a pleasure to see Inder. History of Present Illness Reason for Consultation: Acute kidney injury, respiratory distress. Attending Physician: Ken Esqueda MD History of Present Illness Reid Swartz is a 57-year-old gentleman with past medical history significant for stage III B/4 CKD, hypertension, diabetes, CHF, chronic lower extremity edema admitted to the hospital with hypoxic respiratory failure. Nephrology consult was requested for COSMO and volume overload. EMR records were reviewed in detail during patient's visit. Inder was recently admitted to [facility] from 04/24/23 - 04/29/23 with acute hypoxic respiratory failure secondary to viral PNA ( COVID-19) and anemia as well as osteomyelitis of the right foot. He was treated with steroids as well as antibiotics during his stay. He also received PRBC x 1. He was discharged to [facility] on 04/29/23.Shortly after returning to [facility] he became acutely short of breath, O2 sat was 62% on room air and he was sent back to ER on 04/30/23. He was placed on rescue BiPAP in the ER and administered Lasix 80mg IV and clinically improved. He denies fever, chills. Chronic bilateral LE edema slightly improved. On admission creatinine was 1.4 which slightly worsened to 1.7 this morning, electrolyte acceptable. This showed low-grade proteinuria and microscopic hematuria more than 30 RBC/HPF. CT abdomen pelvis last month showed otherwise normal kidneys. He has been voiding normally, since admission he is almost 1 L negative, received 60 mg of IV Lasix this morning. CT chest this afternoon was concerning for bilateral pulmonary infiltrate suggestive of ARDS versus viral pneumonitis. Blood pressure has been acceptable without any significant hypotension. Has not been on ROSCOE-inhibitor or ARB wth prior history of repeated COSMO and hyperkalemia. Stage IIIB/4 CKD baseline creatinine 1.7-1.8 possibly secondary to cardiorenal syndrome. He has history of chronic lower extremity edema secondary to right- sided heart failure. Hospitalized 08/13/21 - 08/23/21 with volume overload, failed outpatient diuretic, weight gain from 260 to 300 lbs had HD via Rt IJ TDC as L RC AVF was not mature for use.On 08/23/21 weight had dropped to 270 lbs and Cr had recovered to 1.2 and HD was stopped. Has been following with heart failure clinic and nephrology clinic with Dr. Alvarez. Past medical history also significant for hypertension, diabetes and CHF with right-sided heart failure. he also has gastroparesis. Has chronic venous stasis dermatitis and bilateral lower extremity edema, has been on high dose of Bumex and metolazone. History of gout, has been on allopurinol. Diabetes complicated by peripheral neuropathy, has been on high dose of gabapentin. He reports voiding normally. Renal function at baseline. Electrolyte has been acceptable. has anemia with iron deficiency, hemoglobin relatively stable. Allergies Allergy/AdvReac Type Severity Reaction Status Date / Time Calcium Channel Blocking Allergy Intermediate Rash, Verified 04/30/23 01:33 Agent Dilt swelling hydralazine Allergy Intermediate Rash Verified 04/30/23 01:33 amitriptyline AdvReac Intermediate Muscle Verified 04/30/23 01:33 twitching semaglutide [From Ozempic] AdvReac Intermediate Abdominal Verified 04/30/23 01:33 Pain Home Medications Medication Instructions Recorded Confirmed Type atorvastatin 80 mg tablet 80 mg PO QPM 08/02/18 04/30/23 History magnesium oxide 400 mg PO HS 08/02/18 04/30/23 History metoprolol succinate 50 mg 150 mg PO DAILY 08/02/18 04/30/23 History tablet,extended release 24 hr cholecalciferol (vitamin D3) 25 2,000 units PO QPM 11/19/19 04/30/23 History mcg (1,000 unit) chewable tablet (Vitamin D3) gabapentin 600 mg tablet 600 mg PO HS 12/06/19 04/30/23 History fluticasone propionate 50 1 spray intranasal BID PRN Allergy 05/05/20 04/30/23 History mcg/actuation nasal Symptoms spray,suspension (Flonase Allergy Relief) doxazosin 4 mg tablet 4 mg PO HS 10/01/20 04/30/23 History magnesium hydroxide 400 mg/5 mL 30 ml PO DAILY PRN Constipation 07/28/21 04/30/23 History oral suspension (Milk of Magnesia) ascorbic acid (vitamin C) 500 mg 500 mg PO BID 08/08/21 04/30/23 History tablet cnfhcgfucyft-veklxosn-tovtsn 1 tab PO QAM 08/08/21 04/30/23 History tablet (Multivitamin 50 Plus tablet) cyanocobalamin (vitamin B-12) 1,000 mcg PO HS 08/11/21 04/30/23 History 1,000 mcg tablet hydroxyzine HCl 25 mg tablet 25 mg PO Q6 PRN Itching 08/11/21 04/30/23 History aspirin 81 mg capsule 81 mg PO Q12 09/21/21 04/30/23 History insulin glargine 100 unit/mL (3 60 unit subcut Q12H 12/20/21 04/30/23 History mL) subcutaneous pen (Lantus Solostar U-100 Insulin) allopurinol 300 mg tablet 750 mg PO DAILY 04/14/22 04/30/23 History insulin regular hum U-500 conc 500 0 unit subcut ACHS 06/17/22 04/30/23 History unit/mL subcutaneous soln (Humulin R U-500 (Concentrated) Insulin) ferrous sulfate 325 mg (65 mg 325 mg PO BID #1 tab 04/29/23 04/30/23 Rx iron) tablet prednisone 10 mg tablet See Rx Instructions .Route 04/29/23 04/30/23 Rx .COMPLEX #12 tabs ropinirole 0.25 mg tablet 0.25 mg PO HS #0 tabs 04/29/23 04/30/23 Rx sulfamethoxazole 800 1 tab PO Q12 #0 tabs 04/29/23 04/30/23 Rx mg-trimethoprim 160 mg tablet (Bactrim DS) acetaminophen 325 mg tablet 650 mg PO Q4H PRN Pain 04/30/23 04/30/23 History (Tylenol) docusate sodium 100 mg capsule 100 mg PO BID 04/30/23 04/30/23 History enoxaparin 40 mg/0.4 mL 40 mg subcut DAILY 04/30/23 04/30/23 History subcutaneous syringe (Lovenox) gabapentin 400 mg capsule 1,200 mg PO DAILY 04/30/23 04/30/23 History melatonin 3 mg tablet 9 mg PO HS 04/30/23 04/30/23 History ondansetron HCl 4 mg tablet 4 mg PO Q4H PRN NAUSEA/VOMITING 04/30/23 04/30/23 History pantoprazole 40 mg tablet,delayed 40 mg PO HS 04/30/23 04/30/23 History release polyethylene glycol 3350 17 17 gm PO QDL PRN constipation 04/30/23 04/30/23 History gram/dose oral powder sennosides 8.6 mg-docusate sodium 1 tab-cap PO QDL PRN Constipation 04/30/23 04/30/23 History 50 mg tablet (Senokot-S) Patient History Medical History (Updated 05/01/23 @ 11:31 by Al Donato MD) ARDS (adult respiratory distress syndrome) Chronic back pain Chronic diastolic congestive heart failure Chronic kidney disease Plan for possible dialysis in the future (under surveillance), will be placing fistula in near future preventatively Depression Diabetes IDDM Diastolic CHF Dyslipidemia Encounter for pre-operative examination GERD (gastroesophageal reflux disease) Hypertension Migraine Morbid obesity Osteoarthritis PAD (peripheral artery disease) Sleep apnea CPAP Temporomandibular joint disorder Occasional clicking, no locking Viral pneumonitis Surgical History History of Achilles tendon repair Right Achilles repair (07/16/21): Grade 2 view, MAC#3, ETT 7.5 + PNB at [facility] History of incision and drainage Left foot multiple with skin graft (total of 5) Left foot I&D (10/08/20): LMA#5 at [facility] Left foot I&D, Stimulan beads (02/12/21): MAC at [facility] History of open reduction and internal fixation (ORIF) procedure Left ankle Bimalleolar Fracture (11/2019) History of placement of ear tubes Right ear History of tonsillectomy and adenoidectomy Hx of cataract surgery R/L Hx of colonoscopy Arbon teeth extracted Family History Father Diabetes Mother Diabetes Other Coronary heart disease Hypertension No family history of adverse response to anesthesia Denies family history of Crohn's disease Kidney disease Colorectal cancer Ulcerative colitis Social History Smoking Status: Former smoker Tobacco Type: Cigarettes Second Hand Exposure: Yes; Do You Dip or Chew Tobacco: No; Hx Alcohol Use: No Hx Substance Use: No Preferred Language: Japanese Communication Ability: Effective Inflatable Buildings Laminator Required: No Beliefs That Will Affect Care: None marital status: Current Living Situation: Spouse Current Living Situation Comment: resides with huma current occupational status: employed 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 Former Feels Safe at Home: Yes Assistive Devices: Cane and Walker Review of Systems Review of Systems: review of system was not possible as patient was having a procedure at the time. Physical Exam Physical Exam: Exam was brief as during the visit patient was also having a procedure done. Constitutional: WD/WN, vitals as above no acute distress Eyes: + anicteric sclerae Respiratory: no respiratory distress Auscultation: + crackles Cardiovascular: Rate/Rhythm: regular rate and regular rhythm Heart Sounds: normal S1 and normal S2 Extremities: + edema Results & Data Vital Signs (Past 12 Hours) Vital Signs Temp Pulse Pulse Resp BP BP Pulse Ox 05/01/23 15:29 124/60 05/01/23 15:29 87 23 89 L 05/01/23 15:00 80 24 92 05/01/23 14:00 65 12 98 05/01/23 15:11 80 05/01/23 13:19 80 15 93 05/01/23 12:00 84 16 88 L 05/01/23 13:24 05/01/23 11:33 63 05/01/23 12:52 77 23 91 05/01/23 12:51 77 23 91 05/01/23 12:25 05/01/23 11:36 73 22 90 05/01/23 11:33 37.0 C 85 23 132/68 89 L 05/01/23 08:00 63 05/01/23 08:18 36.4 C L 69 22 131/71 90 05/01/23 07:22 74 22 91 05/01/23 05:29 Pulse Ox O2 Del Method O2 Del Method O2 Flow Rate FiO2 05/01/23 15:29 05/01/23 15:29 05/01/23 15:00 05/01/23 14:00 05/01/23 15:11 05/01/23 13:19 High Flow Nasal Cannula 35 80 05/01/23 12:00 05/01/23 13:24 High Flow Nasal Cannula 35 80 05/01/23 11:33 05/01/23 12:52 High Flow Nasal Cannula 35 80 05/01/23 12:51 High Flow Nasal Cannula 35 80 05/01/23 12:25 High Flow Nasal Cannula 35 80 05/01/23 11:36 High Flow Nasal Cannula 35 80 05/01/23 11:33 High Flow Nasal Cannula 35 80 05/01/23 08:00 05/01/23 08:18 High Flow Nasal Cannula 35 80 05/01/23 07:22 High Flow Nasal Cannula 35 85 05/01/23 05:29 96 BiPAP PG Care Time/CCT Total # of Minutes Spent Total Time Spent with Patient: Total time spent is greater than 50% in coordination of care (as documented) at patient's floor/unit and/or counseling patient: Coding Level of Care Code 65225 IN/OBS CONSULT LVL 4,60M Diagnoses COSMO (acute kidney injury) N17.9 Anemia D64.9 Acute respiratory failure with hypoxia J96.01 Multifocal pneumonia J18.9 Coronavirus infection B34.2
[2023-05-01] MEDS ORDERED: ICU Protocol for HYPERglycemia SCH (16:30)
--- NOTE | 2023-05-01 18:16 | Ultrasound Report ---
ULTRASOUND KIDNEYS AND BLADDER CLINICAL HISTORY: Acute renal insufficiency. Hyperkalemia. COMPARISON STUDY: Abdominal CT dated 04/03/2023. TECHNIQUE: Real-time, grayscale, and color flow sonography of the kidneys and bladder is performed. I mages are reviewed in the transverse and longitudinal planes. FINDINGS: Kidneys: The kidneys are normal in size and echotexture. The right kidney measures 11.2 x 5.6 x 5.1 c m and the left kidney measures 10.9 x 4.6 x 3.3 cm. There is no hydronephrosis. No shadowing renal c alculi are identified. There is no sonographic evidence of contour deforming renal mass lesion. No pe rinephric fluid is identified. Bladder: The bladder is decompressed around a Shell catheter and could not be assessed. IMPRESSION: 1. Normal sonographic examination of the kidneys. 2. The bladder was decompressed around a Shell catheter and could not be assessed. ACT 112: Negative or not required by law. Electronically signed by: Fernando Carver M.D. 05/01/2023 6:15 PM
[2023-05-01] MEDS: SODIUM CHLOR 7% 4 ML NEB NEB SCH ×2 (19:38→19:39)
[2023-05-01] MEDS: ALBUT/IPRATROP 3MG/0.5MG NEB 3 ML VIAL NEB PRN ×2 (19:38→19:39)
[2023-05-01] MEDS: PANTOprazole 40 MG TAB PO SCH (20:48)
[2023-05-01] MEDS: rOPINIRole HCL 0.25 MG TABLET PO SCH (20:49)
[2023-05-01] MEDS: FORMOTEROL 20 MCG/2 ML VIAL NEB SCH (22:36)
[2023-05-02] MEDS: SODIUM CHLOR 7% 4 ML NEB NEB SCH ×2 (07:27→19:28)
[2023-05-02] MEDS: FORMOTEROL 20 MCG/2 ML VIAL NEB SCH ×2 (07:28→19:27)
[2023-05-02] MEDS: LANTUS PER UNIT CHARGE SQ SCH ×2 (08:27→20:11)
[2023-05-02] MEDS: INSULIN ASPART PER UNIT CHARGE SC SCH ×4 (08:28→20:11)
[2023-05-02] MEDS: methylPREDNISolone 40 MG in SYRINGE 0 ML IV SCH ×2 (08:29→20:17)
[2023-05-02] MEDS: METOPROLOL SUCC 50MG EXT REL TAB PO SCH (08:29)
[2023-05-02] MEDS: ENOXAPARIN INJ 40 MG/0.4 ML SYR SQ SCH ×2 (08:30→18:35)
[2023-05-02] MEDS: ASPIRIN 81 MG ECTAB PO SCH ×2 (09:18→20:12)
[2023-05-02 09:25] LABS: Albumin Level 2.9 gm/dl (3.4-5.0); BUN Creatinine Ratio 47.7 (10-20); Calcium 8.9 mg/dl (8.6-10.3); Creatinine Clr Calc Pharmacy 66.4 ml/min; Est GFR (African American) 59.9 ml/min; Est GFR (Non-African American) 51.7 ml/min
[2023-05-02] MEDS ORDERED: PHARMACY GLYCEMIC MGMT CONSULT PRN (09:36)
--- NOTE | 2023-05-02 09:57 | Pharmacy Report ---
Pharmacy Glycemic Short Note 2 - Date of Service May 02, 2023 - Glycemic Short BSG Results (Last 24 hours): 05/01/23 05/01/23 05/01/23 11:31 11:32 11:51 Glucose POC Glucose 50 L* 52 L* 61 L* 05/01/23 05/01/23 05/01/23 11:52 12:05 12:13 Glucose 60 L POC Glucose 61 L* 105 H 05/01/23 05/01/23 05/01/23 16:19 20:08 23:37 Glucose POC Glucose 268 H 291 H 224 H 05/02/23 05/02/23 05/02/23 03:34 07:39 08:14 Glucose 165 H POC Glucose 167 H 163 H OUTPATIENT ANTIDIABETIC REGIMEN: * Lantus 50 units SQ HS * U-500 85 units qAM, 75 units with lunch, and 60 units with dinner HbA1C: 9.8% (04/02/23) ASSESSMENT: * Patient transferred to ICU yesterday for closer monitoring/possible need for intubation. * Patient is on HiFlow Nasal Cannula this morning. Has T2DM diet ordered. SM IV 40 mg BID. * BSGs yesterday [id number] mg/dL- parameters significantly loosened after hypoglycemia yesterday and steroids were added after this. * Lantus was reduced to 40 units BID- fasting 163 mg/dL this morning, continue for now * BSG 249 mg/dL at lunch today, will tighten carb ratio. PLAN FOR INPATIENT GLYCEMIC CONTROL: * Basal insulin * Lantus 40 units SQ BID * Bolus insulin * NovoLog per scale ACHS or Q6hrs while NPO * Goal Range: Low 140 mg/dL - High 180 mg/dL * Correction Factor: 20 mg/dL/unit * Nutritional / Prandial insulin per carb ratio of 1 unit per 8 grams CHO consumed
--- NOTE | 2023-05-02 10:06 | XRay Report ---
XR chest 1V portable CLINICAL HISTORY: Follow up pna COMPARISON STUDY: Chest radiograph and chest CT May 01, 2023. FINDINGS: There is no pneumothorax or pleural effusion. A right PICC remains in place. Cardiomegaly i s unchanged. Interstitial thickening and extensive bilateral airspace opacities persist. The appearan ce is unchanged. IMPRESSION: No change in interstitial thickening and bilateral airspace opacities. The findings coul d reflect pneumonia, pulmonary edema or ARDS. ACT 112: Negative or not required by law. Electronically signed by: Rafat Powell M.D. 05/02/2023 10:05 AM
--- NOTE | 2023-05-02 10:12 | Critical Care Progress Note ---
Date of Service May 02, 2023 Assessment & Plan (1) ARDS (adult respiratory distress syndrome): (2) Viral pneumonitis: (3) Acute respiratory failure with hypoxia: (4) Coronavirus infection: (5) Osteomyelitis: (6) COSMO (acute kidney injury): (7) Hyperkalemia: Plan 57-year-old male with history of type 2 diabetes mellitus, osteomyelitis of his foot, failure of AV fistula, hypertension, WHIT, obesity, medical noncompliance CKD stage IV, dyslipidemia and diastolic CHF presenting to the hospital due to hypoxemic respiratory failure from viral pneumonitis. Neurologic: History of restless legs. Continue ropinirole at night. Restart gabapentin. Agitation improved today. Pulmonary: Continue high flow nasal cannula while awake and consider the use of CPAP in the evening or when sleeping. Respiratory status unchanged compared to yesterday. Chest x-ray with continued evidence of ARDS. Continue Solu-Medrol 40 mg twice daily. Continue pulmonary toilet. Cardiovascular: Maintain maps above 65 mmHg. Continue antihypertensives. Gastrointestinal: Continue pantoprazole and diet. Renal: Renal function back to baseline. CK level normal. Appreciate nephrology input. Maintain euvolemia. Potassium level improved. Continue to hold Bactrim. Infectious disease: Continue cefepime and azithromycin. Beta glucan and PJP sputum DFA pending. Hematologic: Patient with anemia of chronic disease. We will hold on further blood transfusions at this time. Endocrine: TSH checked in March was unremarkable. Patient with history of insulin-dependent diabetes mellitus. Maintain glucose under 180. Hyperglycemic at times. Appreciate pharmacy management of hyperglycemia. Lines and tubes: Peripheral IVs and Shell catheter in place. VTE prophylaxis: Lovenox twice daily. CODE STATUS: Full Disposition: ICU I have personally spent 41 minutes of critical care time in the direct management of this patient. This is a life/limb threatening event. This includes time spent evaluating patient, direct bedside care, chart review, placing orders, interpretation of diagnostic studies, discussion with consultants, patient, and family members, as well as other required patient management activities. This time is exclusive of all separately billable procedures, and teaching time and separate from and in addition to any other critical care service time. Thank you for allowing us to participate in the care of this patient. Admission and Anticipated Discharge Date Admission Date: April 30, 2023 Subjective No significant change compared to yesterday. Patient upset about his dinner yesterday. He notes that he has a good appetite. He remains very short of breath with minimal exertion, but at rest he is comfortable. He remains on high flow oxygen. He denies any chest pain. No fevers or chills. Review of Systems Review of Systems: All systems reviewed & are unremarkable except as noted in HPI & below Physical Exam Physical Exam: Constitutional: Patient appears to be of their stated age. Patient is in moderate distress. Patient is well-developed. Obese. Eyes: Pupils are equal round and reactive to light. Conjunctivae are normal. Anicteric sclera. Ears nose, mouth and throat: Mallampati class 2. Normal posterior oropharynx. Uvula is midline. Neck: Trachea is midline. Visual inspection is normal. Respiratory: Diffuse crackles. Significant tachypnea. Increased work of breathing. Cardiovascular: Tachycardic. No murmurs. No edema. Gastrointestinal: Normal bowel sounds, soft, nontender and nondistended. No hepatosplenomegaly noted. Musculoskeletal: No cyanosis. Patient is able to move all extremities. Strength is 5 out of 5 in the upper and lower extremities. Skin: No rashes, warm dry and intact. Large open wound on the right heel that appears macerated. Neurologic: No obvious focal neurological deficits seen. Psychiatric: Alert and oriented x3 with a euthymic affect. Results & Data Results & Data Vital Signs (Past 12 Hours) Vital Signs Temp Pulse Pulse Resp BP Pulse Ox O2 Del Method 05/02/23 09:00 75 19 89 L 05/02/23 09:00 162/53 H 05/02/23 08:00 81 19 92 High Flow Nasal Cannula 05/02/23 08:00 179/70 H 05/02/23 07:00 66 15 93 05/02/23 07:00 164/67 H 05/02/23 06:45 64 19 92 05/02/23 09:24 High Flow Nasal Cannula 05/02/23 08:00 72 05/02/23 07:28 72 20 90 High Flow Nasal Cannula 05/02/23 06:30 72 19 88 L 05/02/23 06:00 67 17 92 05/02/23 06:00 167/58 H 05/02/23 05:30 61 14 93 05/02/23 05:00 65 20 94 05/02/23 05:00 155/56 H 06/20/23 04:30 66 18 93 05/02/23 05:00 05/02/23 04:00 63 16 90 05/02/23 04:00 167/65 H 05/02/23 03:30 73 17 91 05/02/23 03:01 70 15 93 05/02/23 03:01 161/98 H 05/02/23 03:00 69 17 93 05/02/23 02:30 64 16 96 05/02/23 02:00 67 16 91 05/02/23 02:00 157/66 H 05/02/23 01:30 72 19 91 05/02/23 01:00 68 17 95 05/02/23 01:00 149/63 H 05/02/23 04:05 66 18 91 High Flow Nasal Cannula 05/02/23 00:41 71 05/02/23 02:13 37.4 C 05/02/23 00:45 72 15 93 05/02/23 00:30 68 17 93 05/02/23 00:15 71 21 95 05/02/23 00:02 129/75 05/02/23 00:02 71 18 94 05/02/23 00:00 72 18 91 05/01/23 23:45 72 18 90 05/01/23 23:30 72 13 90 05/01/23 23:15 71 24 82 L 05/01/23 23:00 70 28 H 92 05/01/23 23:00 165/64 H 05/01/23 22:45 72 29 H 91 05/01/23 22:30 71 26 H 90 05/01/23 22:15 72 15 92 05/01/23 22:41 74 24 89 L High Flow Nasal Cannula O2 Del Method O2 Flow Rate O2 Flow Rate FiO2 05/02/23 09:00 05/02/23 09:00 05/02/23 08:00 35 90 05/02/23 08:00 05/02/23 07:00 05/02/23 07:00 05/02/23 06:45 05/02/23 09:24 35 90 05/02/23 08:00 05/02/23 07:28 40 90 05/02/23 06:30 05/02/23 06:00 05/02/23 06:00 05/02/23 05:30 05/02/23 05:00 05/02/23 05:00 05/02/23 04:30 05/02/23 05:00 High Flow Nasal Cannula 35 05/02/23 04:00 05/02/23 04:00 05/02/23 03:30 05/02/23 03:01 05/02/23 03:01 05/02/23 03:00 05/02/23 02:30 05/02/23 02:00 05/02/23 02:00 05/02/23 01:30 05/02/23 01:00 05/02/23 01:00 05/02/23 04:05 35 85 05/02/23 00:41 05/02/23 02:13 05/02/23 00:45 05/02/23 00:30 05/02/23 00:15 05/02/23 00:02 05/02/23 00:02 05/02/23 00:00 05/01/23 23:45 05/01/23 23:30 05/01/23 23:15 05/01/23 23:00 05/01/23 23:00 05/01/23 22:45 05/01/23 22:30 05/01/23 22:15 05/01/23 22:41 35 85 Coding Level of Care Code 36236 CRITICAL CARE 1ST 30-74M Diagnoses ARDS (adult respiratory distress syndrome) J80 Viral pneumonitis J12.9 Acute respiratory failure with hypoxia J96.01 Coronavirus infection B34.2 Osteomyelitis M86.9 COSMO (acute kidney injury) N17.9 Hyperkalemia E87.5
[2023-05-02] MEDS: AZITHROMYCIN 500 MG in DEXTROSE 5% 250 ML IV SCH (10:28)
[2023-05-02] MEDS: CEFEPIME 2,000 MG in SYRINGE 0 ML IV SCH ×2 (10:32→18:35)
[2023-05-02] MEDS: GABAPENTIN 600 MG TAB PO SCH (10:52)
--- NOTE | 2023-05-02 12:31 | Hospitalist Progress Note ---
Date of Service May 02, 2023 Assessment & Plan (1) Acute respiratory failure with hypoxia: Plan: 2nd to ARDS in the setting of viral pneumonitis (non-COVID19 coronavirus on recent respiratory [employer]). Defer management to Dr Donato. Cont HFNC. Cont diuresis. Antibiotic coverage for any bacterial superinfection. Steroids added by pulmonary today. (2) ARDS (adult respiratory distress syndrome): Plan: 2nd viral pneumonitis (non-COVID coronavirus) cannot exclude a component of acute/chronic diastolic CHF adding steroids today (solumedrol) (3) Viral pneumonitis: Plan: as above on cefepime + zithromax to cover for possible bacterial superinfection (4) Coronavirus infection: Plan: as above non-COVID19 strain (5) Chronic diastolic congestive heart failure: Plan: cont bumex daily adjust as needed to keep I/O balance negative (6) Diabetic ulcer of right heel: Plan: cont wound vac appreciate wound care assistance (7) Osteomyelitis of right foot: Plan: cont wound vac previous intra-op cultures from prior hospitalization with MRSA, enterococcus, and e.coli (8) WIHT (obstructive sleep apnea): Plan: CPAP HS (9) Poorly controlled diabetes mellitus: Plan: a1c nearly 10% in March 2023 glycemic control via ICU glycemic protocol (10) Morbid obesity: Plan: BMI 41 Plan constipation - add miralax, add senna DVT Proph - lovenox 40mg BID Admission and Anticipated Discharge Date Admission Date: April 30, 2023 Subjective patient resting in bed remains on HFNC - 40L, 90% FiO2 during my visit he has mild cough, largely nonproductive no dyspnea at rest but with talking quickly he does indeed desat to the low 80s he c/o constipation denies any foot pain Review of Systems Review of Systems: gen - no fevers or chills cv - no chest pain GI - no nausea/emesis Physical Exam Physical Exam: gen - morbidly obese, talkative, no dyspnea despite high settings on vapotherm neck - no obvious JVD mouth - MM dry heart - RRR, s1 s2 lungs - fine, dry, bibasilar rales; no wheeze; no distress abd - obese, mildly distended, BS+, nontender ext - <1+ edema b/l, pulses 2+ b/l skin - dressings intact right foot; woundvac in place right foot; hyperpigmentation of b/l shins Results & Data Results & Data Vital Signs (Past 12 Hours) Vital Signs Temp Pulse Pulse Resp BP Pulse Ox O2 Del Method 05/02/23 11:01 170/74 H 05/02/23 11:01 76 20 91 05/02/23 11:00 74 22 88 L 05/02/23 10:00 69 18 94 05/02/23 10:00 152/75 H 05/02/23 12:01 76 05/02/23 11:10 80 20 90 High Flow Nasal Cannula 05/02/23 09:00 75 19 89 L 05/02/23 09:00 162/53 H 05/02/23 08:00 81 19 92 High Flow Nasal Cannula 05/02/23 08:00 179/70 H 05/02/23 07:00 66 15 93 05/02/23 07:00 164/67 H 05/02/23 06:45 64 19 92 05/02/23 09:24 High Flow Nasal Cannula 05/02/23 08:00 72 05/02/23 07:28 72 20 90 High Flow Nasal Cannula 05/02/23 06:30 72 19 88 L 05/02/23 06:00 67 17 92 05/02/23 06:00 167/58 H 05/02/23 05:30 61 14 93 05/02/23 05:00 65 20 94 05/02/23 05:00 155/56 H 05/02/23 04:30 66 18 93 05/02/23 05:00 05/02/23 04:00 63 16 90 05/02/23 04:00 167/65 H 05/02/23 03:30 73 17 91 05/02/23 03:01 70 15 93 05/02/23 03:01 161/98 H 05/02/23 03:00 69 17 93 05/02/23 02:30 64 16 96 05/02/23 02:00 67 16 91 05/02/23 02:00 157/66 H 05/02/23 01:30 72 19 91 05/02/23 01:00 68 17 95 05/02/23 01:00 149/63 H 05/02/23 04:05 66 18 91 High Flow Nasal Cannula 05/02/23 00:41 71 05/02/23 02:13 37.4 C 05/02/23 00:45 72 15 93 O2 Del Method O2 Flow Rate O2 Flow Rate FiO2 05/02/23 11:01 05/02/23 11:01 05/02/23 11:00 05/02/23 10:00 05/02/23 10:00 05/02/23 12:01 05/02/23 11:10 40 90 05/02/23 09:00 05/02/23 09:00 05/02/23 08:00 35 90 05/02/23 08:00 05/02/23 07:00 05/02/23 07:00 05/02/23 06:45 05/02/23 09:24 35 90 05/02/23 08:00 05/02/23 07:28 40 90 05/02/23 06:30 05/02/23 06:00 05/02/23 06:00 05/02/23 05:30 05/02/23 05:00 05/02/23 05:00 05/02/23 04:30 05/02/23 05:00 High Flow Nasal Cannula 35 05/02/23 04:00 05/02/23 04:00 05/02/23 03:30 05/02/23 03:01 05/02/23 03:01 05/02/23 03:00 05/02/23 02:30 05/02/23 02:00 05/02/23 02:00 05/02/23 01:30 05/02/23 01:00 05/02/23 01:00 05/02/23 04:05 35 85 05/02/23 00:41 05/02/23 02:13 05/02/23 00:45 Laboratory Results Laboratory Results - last 24 hr 05/01/23 05/02/23 05/02/23 23:37 03:34 05:41 Sodium Potassium Chloride Carbon Dioxide Anion Gap BUN Creatinine Est Cr Clr Drug Dosing Est GFR ( Amer) Est GFR (Non-Af Amer) BUN/Creatinine Ratio Glucose POC Glucose 224 H 167 H Calcium Phosphorus Iron 38 TIBC 142 L Unsaturated IBC 104 L Transferrin % Sat 27 Ferritin 3207.0 H Albumin 05/02/23 05/02/23 05/02/23 07:39 08:14 11:35 Sodium 139 Potassium 5.0 Chloride 104 Carbon Dioxide 29 Anion Gap 6 BUN 71 H Creatinine 1.49 H Est Cr Clr Drug Dosing 66.4 Est GFR ( Amer) 59.9 Est GFR (Non-Af Amer) 51.7 BUN/Creatinine Ratio 47.7 H Glucose 165 H POC Glucose 163 H 249 H Calcium 8.9 Phosphorus 4.0 Iron TIBC Unsaturated IBC Transferrin % Sat Ferritin Albumin 2.9 L 05/02/23 05/02/23 16:16 19:58 Sodium Potassium Chloride Carbon Dioxide Anion Gap BUN Creatinine Est Cr Clr Drug Dosing Est GFR ( Amer) Est GFR (Non-Af Amer) BUN/Creatinine Ratio Glucose POC Glucose 146 H 147 H Calcium Phosphorus Iron TIBC Unsaturated IBC Transferrin % Sat Ferritin Albumin PG Care Time/CCT Total # of Minutes Spent Total Time Spent with Patient: Total time spent is greater than 50% in coordination of care (as documented) at patient's floor/unit and/or counseling patient: Coding Level of Care Code 24530 SUB INP/OBS CARE 12/07MIN Diagnoses Acute respiratory failure with hypoxia J96.01 ARDS (adult respiratory distress syndrome) J80 Viral pneumonitis J12.9 Coronavirus infection B34.2 Chronic diastolic congestive heart failure I50.32 Diabetic ulcer of right heel E11.621; L97.419 Osteomyelitis of right foot M86.9 WHIT (obstructive sleep apnea) G47.33 Poorly controlled diabetes mellitus E11.65 Morbid obesity E66.01
[2023-05-02] MEDS ORDERED: bisacodyL 10 MG SUPP PR PRN (12:57)
[2023-05-02] MEDS: SENNA 8.6 MG TAB PO SCH (13:47)
[2023-05-02] MEDS: POLYETHYLENE (MIRALAX) 17 GM PACK PO SCH (13:47)
--- NOTE | 2023-05-02 14:28 | Nephrology Progress Note ---
Date of Service May 02, 2023 Assessment & Plan (1) COSMO (acute kidney injury): (2) Anemia: (3) Acute respiratory failure with hypoxia: (4) Multifocal pneumonia: (5) Coronavirus infection: Plan 57-year-old gentleman with stage IIIB CKD b/l cr 1.5-1.6 although during recent hospitalization creatinine was low at around 1.3-1.4, admitted with hypoxic respiratory failure within 1 day after discharge recent hospitalization with possible viral pneumonitis. CT chest was concerning for ARDS versus viral pneumonitis with recent COVID-19 infection and also concern for transfusion reaction as recently he received PRBC. Clinically relatively stable, bilateral lower extremity edema stable and net negative close to 2 L off of diuretics since yesterday afternoon. Renal function stable, electrolyte acceptable. Iron store adequate, hemoglobin stable. --resume Bumex 2 mg po daily, accurate intake and output, aim for net negative. -- monitor renal function, electrolytes closely Will follow Admission and Anticipated Discharge Date Admission Date: April 30, 2023 Subjective Inder was seen and evaluated this morning. He was comfortable, sitting up in bed, denies any specific symptoms. Pressure has been elevated. Continues to get easily short of breath with minimum activity but comfortable at rest. Significantly net negative close to 2 L without diuretics. Stable. Review of Systems Review of Systems: Detailed review of system was otherwise unremarkable. Physical Exam Constitutional: WD/WN, vitals as above no acute distress Eyes: + anicteric sclerae Respiratory: no respiratory distress Auscultation: + crackles Cardiovascular: Rate/Rhythm: regular rate and regular rhythm Heart Sounds: normal S1 and normal S2 Extremities: + edema Skin: + crusts and + dry skin Neurologic: no focal motor deficits Psychiatric: A+Ox3, euthymic affect Results & Data Vital Signs (Past 12 Hours) Vital Signs Pulse Pulse Resp BP Pulse Ox O2 Del Method O2 Del Method 05/02/23 13:00 73 17 92 05/02/23 13:00 162/53 H 05/02/23 12:01 76 18 93 05/02/23 12:01 150/79 H 05/02/23 12:00 71 20 88 L 05/02/23 11:01 170/74 H 05/02/23 11:01 76 20 91 05/02/23 11:00 74 22 88 L 05/02/23 10:00 69 18 94 05/02/23 10:00 152/75 H 05/02/23 12:01 76 05/02/23 11:10 80 20 90 High Flow Nasal Cannula 05/02/23 09:00 75 19 89 L 05/02/23 09:00 162/53 H 05/02/23 08:00 81 19 92 High Flow Nasal Cannula 05/02/23 08:00 179/70 H 05/02/23 07:00 66 15 93 05/02/23 07:00 164/67 H 05/02/23 06:45 64 19 92 05/02/23 09:24 High Flow Nasal Cannula 05/02/23 08:00 72 05/02/23 07:28 72 20 90 High Flow Nasal Cannula 05/02/23 06:30 72 19 88 L 05/02/23 06:00 67 17 92 05/02/23 06:00 167/58 H 05/02/23 05:30 61 14 93 05/02/23 05:00 65 20 94 05/02/23 05:00 155/56 H 05/02/23 04:30 66 18 93 05/02/23 05:00 High Flow Nasal Cannula 05/02/23 04:00 63 16 90 05/02/23 04:00 167/65 H 05/02/23 03:30 73 17 91 05/02/23 03:01 70 15 93 05/02/23 03:01 161/98 H 05/02/23 03:00 69 17 93 05/02/23 02:30 64 16 96 05/02/23 04:05 66 18 91 High Flow Nasal Cannula O2 Flow Rate O2 Flow Rate FiO2 05/02/23 13:00 05/02/23 13:00 05/02/23 12:01 05/02/23 12:01 05/02/23 12:00 05/02/23 11:01 05/02/23 11:01 05/02/23 11:00 05/02/23 10:00 05/02/23 10:00 05/02/23 12:01 05/02/23 11:10 40 90 05/02/23 09:00 05/02/23 09:00 05/02/23 08:00 35 90 05/02/23 08:00 05/02/23 07:00 05/02/23 07:00 05/02/23 06:45 05/02/23 09:24 35 90 05/02/23 08:00 05/02/23 07:28 40 90 05/02/23 06:30 05/02/23 06:00 05/02/23 06:00 05/02/23 05:30 05/02/23 05:00 05/02/23 05:00 05/02/23 04:30 05/02/23 05:00 35 05/02/23 04:00 05/02/23 04:00 05/02/23 03:30 05/02/23 03:01 05/02/23 03:01 05/02/23 03:00 05/02/23 02:30 05/02/23 04:05 35 85 PG Care Time/CCT Total # of Minutes Spent Total Time Spent with Patient: Total time spent is greater than 50% in coordination of care (as documented) at patient's floor/unit and/or counseling patient: Coding Level of Care Code 60200 SUB INP/OBS CARE 3/50MIN Diagnoses COSMO (acute kidney injury) N17.9 Anemia D64.9 Acute respiratory failure with hypoxia J96.01 Multifocal pneumonia J18.9 Coronavirus infection B34.2
[2023-05-02] MEDS: ATORVASTATIN 40 MG TAB PO SCH (20:11)
[2023-05-02] MEDS: PANTOprazole 40 MG TAB PO SCH (20:12)
[2023-05-02] MEDS: rOPINIRole HCL 0.25 MG TABLET PO SCH (20:18)
[2023-05-03] MEDS: INSULIN ASPART PER UNIT CHARGE SC SCH ×7 (01:07→20:42)
[2023-05-03] MEDS: ACETAMINOPHEN 325 MG TAB PO PRN (01:26)
[2023-05-03] MEDS: CEFEPIME 2,000 MG in SYRINGE 0 ML IV SCH ×2 (03:47→10:51)
[2023-05-03 05:19] LABS: Hematocrit (blood only) 30.3 % (42.0-52.0); Mean Corpuscular Hemoglobin 27.5 pg (25.0-34.0); Mean Corpuscular Hgb Conc 29.7 g/dL (32.0-36.0); Mean Corpuscular Volume 92.7 fL (80.0-100.0); Mean Platelet Volume 9.3 fL (9.4-12.4); Platelet Count 266 K/uL (130-400); RDW Coefficient of Variation 17.3 % (11.5-14.5); RDW Standard Deviation 58.5 fL (36.4-46.3); Red Blood Count 3.27 M/uL (4.70-6.10); White Blood Count 10.53 K/ul (4.8-10.8)
[2023-05-03 05:33] LABS: Albumin Level 2.8 gm/dl (3.4-5.0); BUN Creatinine Ratio 47.2 (10-20); Calcium 8.3 mg/dl (8.6-10.3); Creatinine Clr Calc Pharmacy 79.2 ml/min; Est GFR (African American) 74.1 ml/min; Magnesium 2.5 mg/dl (1.7-2.4); Potassium 5.5 mmol/L (3.5-5.1)
[2023-05-03] MEDS: SODIUM CHLOR 7% 4 ML NEB NEB SCH ×2 (07:20→19:46)
[2023-05-03] MEDS: FORMOTEROL 20 MCG/2 ML VIAL NEB SCH ×2 (07:21→19:46)
[2023-05-03] MEDS ORDERED: RAPID SEQUENCE INDUCTION BAG ONE (07:36)
[2023-05-03] MEDS: ENOXAPARIN INJ 40 MG/0.4 ML SYR SQ SCH ×2 (07:55→19:17)
--- NOTE | 2023-05-03 07:55 | XRay Report ---
XR chest 1V portable HISTORY: 57 years-old Male Resp failure acute shortness of breath with respiratory failure COMPARISON: 05/02/2023 TECHNIQUE: , 05/01/2023 FINDINGS: Cardiac silhouette is enlarged. Extensive reticular interstitial densities with intermixed air space opacities are again noted. No pleural effusion. Degenerative changes of the shoulders and spine. IMPRESSION: Cardiomegaly with unchanged extensive mixed interstitial and alveolar opacities without p leural effusion. Primary differential considerations again include pneumonia versus ARDS. ACT 112: Negative or not required by law. The above report was generated using voice recognition software. It may contain grammatical, syntax o r spelling errors. Electronically signed by: Alejandro Bautista M.D. 05/03/2023 7:54 AM
--- NOTE | 2023-05-03 08:19 | Critical Care Progress Note ---
Date of Service May 03, 2023 Assessment & Plan (1) ARDS (adult respiratory distress syndrome): (2) Viral pneumonitis: (3) Acute respiratory failure with hypoxia: (4) Coronavirus infection: (5) Osteomyelitis: (6) COSMO (acute kidney injury): (7) Hyperkalemia: (8) Agitation: Plan 57-year-old male with history of type 2 diabetes mellitus, osteomyelitis of his foot, failure of AV fistula, hypertension, WHIT, obesity, medical noncompliance CKD stage IV, dyslipidemia and diastolic CHF presenting to the hospital due to hypoxemic respiratory failure from viral pneumonitis. Neurologic: History of restless legs. Continue ropinirole at night. Restart gabapentin. Patient endorses a high anxiety level at this time, but is not interested in pursuing anxiolysis unless he is an emergent situation. He notes that his anxiety is related to his perceived lack of dignity and he feels that his dignity would be restored if he was able to eat food. Pulmonary: Continue high flow nasal cannula while awake and consider the use of CPAP in the evening or when sleeping. We will trial the patient off of Pap therapy and place him back on high flow nasal cannula. He understands the risk of worsening hypoxemia. He is refusing elective intubation or bronchoscopy at this time. He is willing to undergo an emergent intubation if required. Cardiovascular: Maintain maps above 65 mmHg. Continue antihypertensives. Gastrointestinal: Continue pantoprazole and diet. Renal: Renal function back to baseline. CK level normal. Appreciate nephrology input. Maintain euvolemia. Potassium level improved. Continue to hold Bactrim. Infectious disease: Continue cefepime and azithromycin. Beta glucan and PJP sputum DFA pending. We will add vancomycin given his history of MRSA osteomyelitis. Hematologic: Patient with anemia of chronic disease. We will hold on further blood trans fusions at this time. Endocrine: TSH checked in March was unremarkable. Patient with history of insulin-dependent diabetes mellitus. Maintain glucose under 180. Hyperglycemic at times. Appreciate pharmacy management of hyperglycemia. Lines and tubes: Peripheral IVs and Shell catheter in place. VTE prophylaxis: Lovenox twice daily. CODE STATUS: Full, discussed with patient at length. He is willing to undergo intubation and ACLS procedures if required in an emergency situation. Disposition: ICU Discussed on multidisciplinary rounds. Discussed with hogshead packer, bedside RN, RT, psychiatrist, pharmacist, dietitian and physical therapist. I have personally spent 44 minutes of critical care time in the direct management of this patient. This is a life/limb threatening event. This includes time spent evaluating patient, direct bedside care, chart review, placing orders, interpretation of diagnostic studies, discussion with consultants, patient, and family members, as well as other required patient management activities. This time is exclusive of all separately billable procedures, and teaching time and separate from and in addition to any other critical care service time. Thank you for allowing us to participate in the care of this patient. Admission and Anticipated Discharge Date Admission Date: April 30, 2023 Subjective Patient seen and examined this morning. He remains very agitated this morning and is often saying "just kill me and be done with it". He notes that he is upset about his breakfast tray being taken away and he is perseverating on this topic. Earlier today he had oxygen saturations in the 70s but he is now up to the mid 90s on CPAP and flush oxygen bled in. He denies any chest pain or fevers. He is hypertensive. Later in the morning around 10 AM we had psychiatry evaluate the patient who did not feel that he was a suicide risk and felt that he had medical decision-making capacity. I agree with this assessment at this time. Patient indicates that he would like BiPAP to be taken off and to be placed on high flow oxygen and given small meal. I reiterated to him that there is a high risk of severe hypoxemia with putting him back on high flow and severe risk of aspiration pneumonia. Patient is willing to take these risks and eat food while on high flow oxygen. He is not interested in pursuing an elective intubation or bronchoscopy at this time. He is willing to undergo emergency intubation if required. I offer the patient anxiety medications and extra time to think about things, but he is refusing and would like to transition to high flow at this time with food. Review of Systems Review of Systems: All systems reviewed & are unremarkable except as noted in HPI & below Physical Exam Physical Exam: Constitutional: Patient appears to be of their stated age. Patient is in moderate distress. Patient is well-developed. Obese. Eyes: Pupils are equal round and reactive to light. Conjunctivae are normal. Anicteric sclera. Ears nose, mouth and throat: Mallampati class 2. Normal posterior oropharynx. Uvula is midline. Neck: Trachea is midline. Visual inspection is normal. Respiratory: Diffuse crackles. Mild tachypnea. Cardiovascular: Tachycardic. No murmurs. No edema. Gastrointestinal: Normal bowel sounds, soft, nontender and nondistended. No hepatosplenomegaly noted. Musculoskeletal: No cyanosis. Patient is able to move all extremities. Strength is 5 out of 5 in the upper and lower extremities. Skin: No rashes, warm dry and intact. Large open wound on the right heel that appears macerated. Neurologic: No obvious focal neurological deficits seen. Psychiatric: Alert and oriented x3. Agitated. Results & Data Results & Data Vital Signs (Past 12 Hours) Vital Signs Temp Pulse Pulse Resp BP Pulse Ox O2 Del Method 05/03/23 07:35 59 L 20 100 05/03/23 07:21 61 20 100 CPAP 05/03/23 06:30 52 L 13 99 05/03/23 06:00 54 L 15 175/73 H 98 05/03/23 05:30 61 14 99 05/03/23 05:00 55 L 18 97 05/03/23 05:00 140/60 05/03/23 04:30 52 L 12 100 05/03/23 04:00 54 L 17 98 05/03/23 03:30 54 L 13 99 05/03/23 05:01 05/03/23 03:00 55 L 15 95 05/03/23 03:00 163/81 H 05/03/23 02:30 78 15 98 05/03/23 02:00 56 L 15 99 05/03/23 02:00 177/86 H 05/03/23 01:30 58 L 18 100 05/03/23 01:01 63 19 96 05/03/23 01:01 182/51 H 05/03/23 01:00 62 18 94 05/03/23 00:30 74 21 95 05/03/23 00:00 58 L 18 97 05/03/23 00:00 163/76 H 05/03/23 03:16 36.2 C L 05/02/23 23:30 67 20 92 05/02/23 23:01 59 L 18 99 05/02/23 23:01 167/78 H 05/02/23 23:00 60 15 96 05/02/23 22:30 60 17 99 05/02/23 22:01 60 18 100 06/20/23 22:01 181/75 H 05/02/23 22:00 61 25 H 95 05/02/23 21:30 67 19 95 05/02/23 21:01 69 19 90 05/02/23 21:01 164/73 H 05/02/23 21:00 66 29 H 88 L 05/02/23 23:32 36.7 C 05/02/23 20:30 72 21 90 O2 Del Method O2 Flow Rate FiO2 05/03/23 07:35 80 05/03/23 07:21 15 05/03/23 06:30 05/03/23 06:00 05/03/23 05:30 05/03/23 05:00 05/03/23 05:00 05/03/23 04:30 05/03/23 04:00 05/03/23 03:30 05/03/23 05:01 CPAP 05/03/23 03:00 05/03/23 03:00 05/03/23 02:30 05/03/23 02:00 05/03/23 02:00 05/03/23 01:30 05/03/23 01:01 05/03/23 01:01 05/03/23 01:00 05/03/23 00:30 05/03/23 00:00 05/03/23 00:00 05/03/23 03:16 05/02/23 23:30 05/02/23 23:01 05/02/23 23:01 05/02/23 23:00 05/02/23 22:30 05/02/23 22:01 05/02/23 22:01 05/02/23 22:00 05/02/23 21:30 05/02/23 21:01 05/02/23 21:01 05/02/23 21:00 05/02/23 23:32 05/02/23 20:30 Coding Level of Care Code 98271 CRITICAL CARE 1ST 30-74M Diagnoses ARDS (adult respiratory distress syndrome) J80 Viral pneumonitis J12.9 Acute respiratory failure with hypoxia J96.01 Coronavirus infection B34.2 Osteomyelitis M86.9 COSMO (acute kidney injury) N17.9 Hyperkalemia E87.5 Agitation R45.1
[2023-05-03] MEDS: methylPREDNISolone 40 MG in SYRINGE 0 ML IV SCH (09:12)
[2023-05-03] MEDS: LANTUS PER UNIT CHARGE SQ SCH ×2 (09:12→20:23)
[2023-05-03] MEDS ORDERED: VANCOMYCIN CONSULT ACTIVE PRN (09:44)
[2023-05-03] MEDS: ASPIRIN 81 MG ECTAB PO SCH ×2 (09:45→20:23)
[2023-05-03] MEDS: METOPROLOL SUCC 50MG EXT REL TAB PO SCH (09:46)
[2023-05-03] MEDS: BUMETANIDE 1 MG TAB PO SCH (09:46)
[2023-05-03] MEDS: SENNA 8.6 MG TAB PO SCH (09:46)
[2023-05-03] MEDS: GABAPENTIN 600 MG TAB PO SCH (09:46)
[2023-05-03] MEDS: POLYETHYLENE (MIRALAX) 17 GM PACK PO SCH (09:46)
[2023-05-03] MEDS ORDERED: VANCOMYCIN HCL 2,500 MG in SODIUM CHLORIDE 0.9% 500 ML IV ONE (10:00)
--- NOTE | 2023-05-03 10:11 | Pharmacy Report ---
Pharmacy PK ABX Note - Date of Service May 03, 2023 - Assessment and Plan Assessment 57 year old M receiving vancomycin for treatment of osteomyelitis. Pertinent microbiologic data includes: MRSA, E. coli, enterococcus faecalis, noemy gram negative bacilli from 04/04 foot cultures. OR cultures 04/07 were negative. Patient was discharged on ceftriaxone/daptomycin initially to be given through 05/02. Switched to bactrim at outside facility. Bactrim held since 05/01 AM. Patient also on cefepime/azithromycin for pulm. Patient previously on vancomycin from 04/03-04/11 and dosing adjusted to 1000 mg q24H. SCr somewhat improved although recent elevation/hyperkalemia. Will load and obtain level tomorrow AM. Plan Vancomycin * Loading dose: 2500 mg IV x 1 * Random level 05/04 AM. Pharmacy will continue to follow and will adjust dose/frequency as necessary. Thank you. Pharmacy has transitioned to AUC monitoring for vancomycin. AUC/CLAUDIA is the preferred PK/PD target and is associated with decreased risk of nephrotoxicity compared to traditional trough targets.
[2023-05-03] MEDS: AZITHROMYCIN 500 MG in DEXTROSE 5% 250 ML IV SCH (10:51)
--- NOTE | 2023-05-03 11:17 | Psychiatric Consultation ---
Date of Consultation May 03, 2023 Impression / Recommendations Impression 57 yo male with dramatic statements in the context of ego integrity vs. despair. He is not suicidal and there is no evidence of delirium or psychosis interfering with his medical decision making. He maintains decision making capacity around his intubation and is not currently refusing, just wanting to delay for a few bites of food "last meal" as his way of having agency of his body. Medically this is against medical advice and he understands this is delaying medical care that is deemed medically necessary. (1) Adjustment disorder with emotional disturbance: (2) ARDS (adult respiratory distress syndrome): (3) Chronic diastolic congestive heart failure: Plan Dr. Donato to review options with patient given decision making capacity no acute need for 1 on 1 in ICU steroids may be contributing to some mood lability, would rx with low dose IV Ativan prn at discretion of freight agent as can suppress respiratory drive Psych History Identifying Data Mr. Swartz is a 57yo male with multiple medical comorbidities (CHF, CKD, DM, Depression, HLP, GERD, HTN, PAD). Readmit to [facility] for ongoing respiratory failure. Stat consult placed by Dr. Donato for SI. Chief Complaint "If this is going to be it, I just want a last meal." History of Present Illness Patient was talking with liaison about childhood memories upon my arrival and had been speaking with remelt furnace expediter about his family. Patient has been NPO since midnight and elective intubation is now being recommended as he is desat into the 70s earlier this am with small amount of fluids. He has not been aggressive but certainly irritated in discussing medical options as he doesn't feel in control of his surroundings. Apparently made a statement to freight agent that he would rather be than be intubated. He admits to saying "just kill me" but denies that he was suicidal, he is worried if he is intubated he may as both of his parents "went out" around his age/early 60s. He has spoken with his children and feels that "even prisoners get a last meal." He voiced understanding of risk of aspiration and understands that eating even a small amount would delay ICU team's ability to render recommended care. He is not r efusing intubation and understands the goal is rest and bronchoscopy. Allergies Allergy/AdvReac Type Severity Reaction Status Date / Time Calcium Channel Blocking Allergy Intermediate Rash, Verified 04/30/23 01:33 Agent Dilt swelling hydralazine Allergy Intermediate Rash Verified 04/30/23 01:33 amitriptyline AdvReac Intermediate Muscle Verified 04/30/23 01:33 twitching semaglutide [From Ozempic] AdvReac Intermediate Abdominal Verified 04/30/23 01:33 Pain Home Medications Medication Instructions Recorded Confirmed Type atorvastatin 80 mg tablet 80 mg PO QPM 08/02/18 04/30/23 History magnesium oxide 400 mg PO HS 08/02/18 04/30/23 History metoprolol succinate 50 mg 150 mg PO DAILY 08/02/18 04/30/23 History tablet,extended release 24 hr cholecalciferol (vitamin D3) 25 2,000 units PO QPM 11/19/19 04/30/23 History mcg (1,000 unit) chewable tablet (Vitamin D3) gabapentin 600 mg tablet 600 mg PO HS 12/06/19 04/30/23 History fluticasone propionate 50 1 spray intranasal BID PRN Allergy 05/05/20 04/30/23 History mcg/actuation nasal Symptoms spray,suspension (Flonase Allergy Relief) doxazosin 4 mg tablet 4 mg PO HS 10/01/20 04/30/23 History magnesium hydroxide 400 mg/5 mL 30 ml PO DAILY PRN Constipation 07/28/21 04/30/23 History oral suspension (Milk of Magnesia) ascorbic acid (vitamin C) 500 mg 500 mg PO BID 08/08/21 04/30/23 History tablet gxojlfhgcdga-hgwffrll-xolcxw 1 tab PO QAM 08/08/21 04/30/23 History tablet (Multivitamin 50 Plus tablet) cyanocobalamin (vitamin B-12) 1,000 mcg PO HS 08/11/21 04/30/23 History 1,000 mcg tablet hydroxyzine HCl 25 mg tablet 25 mg PO Q6 PRN Itching 08/11/21 04/30/23 History aspirin 81 mg capsule 81 mg PO Q12 09/21/21 04/30/23 History insulin glargine 100 unit/mL (3 60 unit subcut Q12H 12/20/21 04/30/23 History mL) subcutaneous pen (Lantus Solostar U-100 Insulin) allopurinol 300 mg tablet 750 mg PO DAILY 04/14/22 04/30/23 History insulin regular hum U-500 conc 500 0 unit subcut ACHS 06/17/22 04/30/23 History unit/mL subcutaneous soln (Humulin R U-500 (Concentrated) Insulin) ferrous sulfate 325 mg (65 mg 325 mg PO BID #1 tab 04/29/23 04/30/23 Rx iron) tablet prednisone 10 mg tablet See Rx Instructions .Route 04/29/23 04/30/23 Rx .COMPLEX #12 tabs ropinirole 0.25 mg tablet 0.25 mg PO HS #0 tabs 04/29/23 04/30/23 Rx sulfamethoxazole 800 1 tab PO Q12 #0 tabs 04/29/23 04/30/23 Rx mg-trimethoprim 160 mg tablet (Bactrim DS) acetaminophen 325 mg tablet 650 mg PO Q4H PRN Pain 04/30/23 04/30/23 History (Tylenol) docusate sodium 100 mg capsule 100 mg PO BID 04/30/23 04/30/23 History enoxaparin 40 mg/0.4 mL 40 mg subcut DAILY 04/30/23 04/30/23 History subcutaneous syringe (Lovenox) gabapentin 400 mg capsule 1,200 mg PO DAILY 04/30/23 04/30/23 History melatonin 3 mg tablet 9 mg PO HS 04/30/23 04/30/23 History ondansetron HCl 4 mg tablet 4 mg PO Q4H PRN NAUSEA/VOMITING 04/30/23 04/30/23 History pantoprazole 40 mg tablet,delayed 40 mg PO HS 04/30/23 04/30/23 History release polyethylene glycol 3350 17 17 gm PO QDL PRN constipation 04/30/23 04/30/23 History gram/dose oral powder sennosides 8.6 mg-docusate sodium 1 tab-cap PO QDL PRN Constipation 04/30/23 04/30/23 History 50 mg tablet (Senokot-S) Patient History Medical History Agitation ARDS (adult respiratory distress syndrome) Chronic back pain Chronic diastolic congestive heart failure Chronic kidney disease Plan for possible dialysis in the future (under surveillance), will be placing fistula in near future preventatively Depression Diabetes IDDM Diastolic CHF Dyslipidemia Encounter for pre-operative examination GERD (gastroesophageal reflux disease) Hypertension Migraine Morbid obesity Osteoarthritis PAD (peripheral artery disease) Sleep apnea CPAP Temporomandibular joint disorder Occasional clicking, no locking Viral pneumonitis Surgical History History of Achilles tendon repair Right Achilles repair (07/16/21): Grade 2 view, MAC#3, ETT 7.5 + PNB at [facility] History of incision and drainage Left foot multiple with skin graft (total of 5) Left foot I&D (10/08/20): LMA#5 at [facility] Left foot I&D, Stimulan beads (02/12/21): MAC at [facility] History of open reduction and internal fixation (ORIF) procedure Left ankle Bimalleolar Fracture (11/2019) History of placement of ear tubes Right ear History of tonsillectomy and adenoidectomy Hx of cataract surgery R/L Hx of colonoscopy [place] teeth extracted Family History Father Diabetes Mother Diabetes Other Coronary heart disease Hypertension No family history of adverse response to anesthesia Denies family history of Crohn's disease Kidney disease Colorectal cancer Ulcerative colitis Social History Smoking Status: Former smoker Tobacco Type: Cigarettes Second Hand Exposure: Yes; Do You Dip or Chew Tobacco: No; Hx Alcohol Use: No Hx Substance Use: No Preferred Language: French Communication Ability: Effective Telephone Order Dispatcher Required: No Beliefs That Will Affect Care: None marital status: Current Living Situation: Spouse Current Living Situation Comment: resides with huma current occupational status: employed 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 Former Feels Safe at Home: Yes Assistive Devices: Cane and Walker Physical Exam Psychiatric: Orientation: alert Eye Contact: good eye contact some restlessness Speech: + abnormal rate/rhythm/volume of speech (fast at times but not pressured) Affect: + irritable affect Mood: + irritable mood Thought Process: + circumstantial thought process Thought Content: reality based without delusions Suicidal Thoughts: denies suicidal thoughts Homicidal Thoughts: denies homicidal thoughts Hallucinations: no auditory hallucinations and no visual hallucinations Cognition: attention grossly intact and language grossly intact Insight: + fair insight Vital Signs (Past 24 Hours): Last Vital Signs Temp 36.2 C L 05/03/23 03:16 Pulse 74 05/03/23 11:01 Resp 14 05/03/23 11:01 BP 131/76 05/03/23 11:01 Pulse Ox 95 05/03/23 11:01 O2 Del Method High Flow Nasal C annula 05/03/23 11:01 O2 Flow Rate 50 05/03/23 11:00 FiO2 100 05/03/23 11:01 Review of Systems All systems reviewed & are unremarkable except as noted in HPI & below Results & Data (PSY) Laboratory Results 05/03/23 05/03/23 05/03/23 Range/Units 07:58 05:00 05:00 WBC 10.53 (4.8-10.8) K/ul RBC 3.27 L (4.70-6.10) M/uL Hgb 9.0 L (14.0-18.0) g/dl Hct 30.3 L (42.0-52.0) % MCV 92.7 (80.0-100.0) fL MCH 27.5 (25.0-34.0) pg MCHC 29.7 L (32.0-36.0) g/dL RDW Std Deviation 58.5 H (36.4-46.3) fL RDW Coeff of Diane 17.3 H (11.5-14.5) % Plt Count 266 (130-400) K/uL MPV 9.3 L (9.4-12.4) fL Sodium 140 (136-145) mmol/L Potassium 5.5 H (3.5-5.1) mmol/L Chloride 108 H (98-107) mmol/L Carbon Dioxide 29 (21-32) mmol/L Anion Gap 3 (3-11) BUN 59 H (6-23) mg/dl Creatinine 1.25 (0.6-1.4) mg/dl Est Cr Clr Drug Dosing 79.2 ml/min Est GFR ( Amer) 74.1 ml/min Est GFR (Non-Af Amer) 64.0 ml/min BUN/Creatinine Ratio 47.2 H (10-20) Glucose 104 H (70-99(Fasting)) mg/dl POC Glucose 121 H (70-99) mg/dl Calcium 8.3 L (8.6-10.3) mg/dl Phosphorus 4.0 (2.5-4.9) mg/dl Magnesium 2.5 H (1.7-2.4) mg/dl Albumin 2.8 L (3.4-5.0) gm/dl 05/03/23 05/02/23 05/02/23 Range/Units 03:45 23:29 19:58 WBC (4.8-10.8) K/ul RBC (4.70-6.10) M/uL Hgb (14.0-18.0) g/dl Hct (42.0-52.0) % MCV (80.0-100.0) fL MCH (25.0-34.0) pg MCHC (32.0-36.0) g/dL RDW Std Deviation (36.4-46.3) fL RDW Coeff of Diane (11.5-14.5) % Plt Count (130-400) K/uL MPV (9.4-12.4) fL Sodium (136-145) mmol/L Potassium (3.5-5.1) mmol/L Chloride (98-107) mmol/L Carbon Dioxide (21-32) mmol/L Anion Gap (3-11) BUN (6-23) mg/dl Creatinine (0.6-1.4) mg/dl Est Cr Clr Drug Dosing ml/min Est GFR ( Amer) ml/min Est GFR (Non-Af Amer) ml/min BUN/Creatinine Ratio (10-20) Glucose (70-99(Fasting)) mg/dl POC Glucose 122 H 120 H 147 H (70-99) mg/dl Calcium (8.6-10.3) mg/dl Phosphorus (2.5-4.9) mg/dl Magnesium (1.7-2.4) mg/dl Albumin (3.4-5.0) gm/dl 05/02/23 05/02/23 Range/Units 16:16 11:35 WBC (4.8-10.8) K/ul RBC (4.70-6.10) M/uL Hgb (14.0-18.0) g/dl Hct (42.0-52.0) % MCV (80.0-100.0) fL MCH (25.0-34.0) pg MCHC (32.0-36.0) g/dL RDW Std Deviation (36.4-46.3) fL RDW Coeff of Diane (11.5-14.5) % Plt Count (130-400) K/uL MPV (9.4-12.4) fL Sodium (136-145) mmol/L Potassium (3.5-5.1) mmol/L Chloride (98-107) mmol/L Carbon Dioxide (21-32) mmol/L Anion Gap (3-11) BUN (6-23) mg/dl Creatinine (0.6-1.4) mg/dl Est Cr Clr Drug Dosing ml/min Est GFR ( Amer) ml/min Est GFR (Non-Af Amer) ml/min BUN/Creatinine Ratio (10-20) Glucose (70-99(Fasting)) mg/dl POC Glucose 146 H 249 H (70-99) mg/dl Calcium (8.6-10.3) mg/dl Phosphorus (2.5-4.9) mg/dl Magnesium (1.7-2.4) mg/dl Albumin (3.4-5.0) gm/dl Medications Administered Acetaminophen (Acetaminophen 325 Mg Tab) 650 mg PO Q4H PRN PRN Reason: Pain Stop: 05/30/23 05:28 Last Admin: 05/03/23 01:26 Dose: 650 mg Documented By: Admin: 04/30/23 06:21 Dose: 650 mg Documented By: FRANCK Albuterol (Albut/Ipratrop 3mg/0.5mg Neb 3 Ml Vial) 3 ml NEB Q4R PRN; Protocol PRN Reason: Shortness Of Breath Or Wheezing Stop: 05/31/23 14:59 Last Admin: 05/01/23 19:39 Dose: 3 ml Documented By: Admin: 05/01/23 19:38 Dose: 3 ml Documented By: MALI Aspirin (Aspirin 81 Mg Ectab) 81 mg PO BID LELIA Stop: 05/30/23 08:59 Last Admin: 05/03/23 09:45 Dose: Not Given Documented By: KJCathryn Admin: 05/02/23 20:12 Dose: 81 mg Documented By: Admin: 05/02/23 09:18 Dose: 81 mg Documented By: Admin: 05/01/23 20:47 Dose: 81 mg Documented By: Admin: 05/01/23 08:28 Dose: 81 mg Documented By: Admin: 04/30/23 21:09 Dose: 81 mg Documented By: Admin: 04/30/23 09:11 Dose: 81 mg Documented By: DANAE Atorvastatin Calcium (Atorvastatin 40 Mg Tab) 80 mg PO QPM LELIA Stop: 06/01/23 20:59 Last Admin: 05/02/23 20:11 Dose: 80 mg Documented By: NORMA Bumetanide (Bumetanide 1 Mg Tab) 2 mg PO QAM [facility] Stop: 06/02/23 08:59 Last Admin: 05/03/23 09:46 Dose: Not Given Documented By: LEESA Enoxaparin Sodium (Enoxaparin Inj 40 Mg/0.4 Ml Syr) 40 mg SQ BID@0700,1900 [facility] Stop: 05/30/23 06:59 Last Admin: 05/03/23 07:55 Dose: 40 mg Documented By: Admin: 05/02/23 18:35 Dose: 40 mg Documented By: MEJIA Formoterol Fumarate (Formoterol 20 Mcg/2 Ml Vial) 20 mcg NEB BID [facility] Stop: 05/31/23 20:59 Last Admin: 05/03/23 07:21 Dose: 20 mcg Documented By: Admin: 05/02/23 19:27 Dose: 20 mcg Documented By: Admin: 05/02/23 07:28 Dose: 20 mcg Documented By: Admin: 05/01/23 22:36 Dose: Not Given Documented By: YURI Gabapentin (Gabapentin 600 Mg Tab) 1,200 mg PO QAM [facility] Stop: 06/01/23 10:29 Last Admin: 05/03/23 09:46 Dose: Not Given Documented By: Admin: 05/02/23 10:52 Dose: 1,200 mg Documented By: MEJIA Methylprednisolone 40 mg/ (Syringe) 0.64 mls @ 1.5 mls/min IV BID [facility] Stop: 05/31/23 13:14 Last Admin: 05/03/23 09:12 Dose: 1.5 mls/min Documented By: Admin: 05/02/23 20:17 Dose: 1.5 mls/min Documented By: Admin: 05/02/23 08:29 Dose: 1.5 mls/min Documented By: Admin: 05/01/23 20:47 Dose: 1.5 mls/min Documented By: Admin: 05/01/23 14:19 Dose: 1.5 mls/min Documented By: MEJIA Azithromycin 500 mg/ Dextrose 255 mls @ 127.5 mls/hr IV Q24H LELIA Stop: 05/06/23 11:01 Last Admin: 05/03/23 10:51 Dose: 127.5 mls/hr Documented By: Infusion: 05/02/23 12:53 Dose: 0 mls/hr Documented By: Admin: 05/02/23 10:28 Dose: 127.5 mls/hr Documented By: MEJIA Cefepime HCl 2,000 mg/ Syringe 20 mls @ 5 mls/min IV Q8H LELIA; Protocol Stop: 05/08/23 11:59 Last Admin: 05/03/23 10:51 Dose: 5 mls/min Documented By: Admin: 05/03/23 03:47 Dose: 5 mls/min Documented By: Admin: 05/02/23 18:35 Dose: 5 mls/min Documented By: Admin: 05/02/23 10:32 Dose: 5 mls/min Documented By: MEJIA Vancomycin HCl 2,500 mg/ (Sodium Chloride) 550 mls @ 180 mls/hr IV NOW ONE Stop: 05/03/23 13:03 Last Admin: 05/03/23 10:51 Dose: 180 mls/hr Documented By: LEESA Insulin Aspart (Insulin Aspart Per Unit Charge) 0 units SC ACHS LELIA Stop: 05/31/23 20:59 Last Admin: 05/03/23 07:59 Dose: Not Given Documented By: Admin: 05/02/23 20:11 Dose: 6 units Documented By: NORMA Co-signed By: REHANA Admin: 05/02/23 16:53 Dose: 7 units Documented By: MEJIA Co-signed By: BRODIE Admin: 05/02/23 11:55 Dose: 12 units Documented By: MEJIA Co-signed By: BRODIE Admin: 05/02/23 08:28 Dose: 3 units Documented By: MEJIA Co-signed By: MATTHEW Admin: 05/01/23 20:47 Dose: 6 units Documented By: NORMA Co-signed By: WENCESLAO Insulin Glargine (Lantus Per Unit Charge) 32 units SQ BID LELIA Stop: 05/31/23 20:59 Last Admin: 05/03/23 09:12 Dose: 32 units Documented By: LEESA Co-signed By: MATTHEW Metoprolol Succinate (Metoprolol Succ 50mg Ext Rel Tab) 150 mg PO DAILY LELIA Stop: 05/30/23 08:59 Last Admin: 05/03/23 09:46 Dose: Not Given Documented By: Admin: 05/02/23 08:29 Dose: 150 mg Documented By: Admin: 05/01/23 08:27 Dose: 150 mg Documented By: Admin: 04/30/23 13:04 Dose: 150 mg Documented By: DANAE Miscellaneous (Carbohydrates For Hypoglycemia ) 15 - 30 gm PO UD PRN PRN Reason: Hypoglycemia Protocol Stop: 05/30/23 05:28 Last Admin: 05/01/23 11:57 Dose: 15 gm Documented By: Admin: 05/01/23 11:35 Dose: 30 gm Documented By: JORDAN Pantoprazole Sodium (Pantoprazole 40 Mg Tab) 40 mg PO HS LELIA Stop: 05/30/23 20:59 Last Admin: 05/02/23 20:12 Dose: 40 mg Documented By: Admin: 05/01/23 20:48 Dose: 40 mg Documented By: Admin: 04/30/23 21:09 Dose: 40 mg Documented By: FRANCK Polyethylene Glycol (Polyethylene (Miralax) 17 Gm Pack) 17 gm PO DAILY LELIA Stop: 06/01/23 12:59 Last Admin: 05/03/23 09:46 Dose: Not Given Documented By: Admin: 05/02/23 13:47 Dose: 17 gm Documented By: MEJIA Ropinirole HCl (Ropinirole Hcl 0.25 Mg Tablet) 0.25 mg PO HS LELIA Stop: 05/30/23 20:59 Last Admin: 05/02/23 20:18 Dose: 0.25 mg Documented By: Admin: 05/01/23 20:49 Dose: 0.25 mg Documented By: Admin: 04/30/23 21:08 Dose: 0.25 mg Documented By: CR Sennosides (Senna 8.6 Mg Tab) 17.2 mg PO QAM [facility] Stop: 06/01/23 12:59 Last Admin: 05/03/23 09:46 Dose: Not Given Documented By: Admin: 05/02/23 13:47 Dose: 17.2 mg Documented By: MEJIA Sodium Chloride (Sodium Chlor 7% 4 Ml Neb) 4 ml NEB BIDR [facility] Stop: 05/31/23 18:59 Last Admin: 05/03/23 07:20 Dose: 4 ml Documented By: Admin: 05/02/23 19:28 Dose: 4 ml Documented By: Admin: 05/02/23 07:27 Dose: 4 ml Documented By: Admin: 05/01/23 19:38 Dose: 4 ml Documented By: EMCathryn Coding Level of Care Code 03182 U Intl Hosp Care Lvl 2 Diagnoses Adjustment disorder with emotional disturbance F43.29 ARDS (adult respiratory distress syndrome) J80 Chronic diastolic congestive heart failure I50.32
--- NOTE | 2023-05-03 13:17 | Pharmacy Report ---
Pharmacy Glycemic Short Note 2 - Date of Service May 03, 2023 - Glycemic Short BSG Results (Last 24 hours): 05/02/23 05/02/23 05/02/23 16:16 19:58 23:29 Glucose POC Glucose 146 H 147 H 120 H 05/03/23 05/03/23 05/03/23 03:45 05:00 07:58 Glucose 104 H POC Glucose 122 H 121 H 05/03/23 12:14 Glucose POC Glucose 133 H OUTPATIENT ANTIDIABETIC REGIMEN: * Lantus 50 units SQ HS * U-500 85 units qAM, 75 units with lunch, and 60 units with dinner HbA1C: 9.8% (04/02/23) ASSESSMENT: 05/03: * BSGs [id number] mg/dL yesterday/overnight with 108 units of insulin (80 units of basal) * Patient with worsening respiratory status this morning- was made NPO. Lantus was reduced (~40%) * Patient with some improvement and wishes to hold of on intubation and eat lunch, will keep reduce lantus dose for this evening as patient may be intubated later- reassess in AM * BSGs improved with tighter carb ratio yesterday, will continue same for now as patient is eating and continues on SM IV 40 mg BID 05/02 * Patient transferred to ICU yesterday for closer monitoring/possible need for intubation. * Patient is on HiFlow Nasal Cannula this morning. Has T2DM diet ordered. SM IV 40 mg BID. * BSGs yesterday [id number] mg/dL- parameters significantly loosened after hypoglycemia yesterday and steroids were added after this. * Lantus was reduced to 40 units BID- fasting 163 mg/dL this morning, continue for now * BSG 249 mg/dL at lunch today, will tighten carb ratio. PLAN FOR INPATIENT GLYCEMIC CONTROL: * Basal insulin * Lantus 32 units SQ BID * Bolus insulin * NovoLog per scale ACHS or Q6hrs while NPO * Goal Range: Low 140 mg/dL - High 180 mg/dL * Correction Factor: 20 mg/dL/unit * Nutritional / Prandial insulin per carb ratio of 1 unit per 8 grams CHO consumed
--- NOTE | 2023-05-03 14:05 | Nephrology Progress Note ---
Date of Service May 03, 2023 Assessment & Plan (1) COSMO (acute kidney injury): (2) Anemia: (3) Acute respiratory failure with hypoxia: (4) Multifocal pneumonia: (5) Coronavirus infection: Plan 57-year-old gentleman with stage IIIB CKD b/l cr 1.5-1.6 although during recent hospitalization creatinine was low at around 1.3-1.4, admitted with hypoxic respiratory failure within 1 day after discharge recent hospitalization with possible viral pneumonitis. CT chest was concerning for ARDS versus viral pneumonitis with recent COVID-19 infection and also concern for transfusion reaction as recently he received PRBC. Clinically relatively stable, bilateral lower extremity edema stable and net negative close to 2 L off of diuretics since yesterday afternoon. Renal function stable, electrolyte acceptable. Iron store adequate, hemoglobin stable. --continue Bumex 2 mg po daily, accurate intake and output, aim for net negative. -- Veltassa x1 dose now, change diet to low-potassium diet, monitor renal function, electrolytes closely Will follow Admission and Anticipated Discharge Date Admission Date: April 30, 2023 Subjective Inder was seen and evaluated this morning. He was breast stated, angry and agitated regarding his breakfast and diet in general. Vital signs are stable with better O2 saturation when he relaxes. renal function improved and stable but potassium was 5.5 this morning. Has decent urine output and overall net negative. Review of Systems Review of Systems: Detailed review of system was otherwise unremarkable. Physical Exam Constitutional: WD/WN, vitals as above no acute distress Eyes: + anicteric sclerae Respiratory: no respiratory distress Auscultation: + crackles Cardiovascular: Rate/Rhythm: regular rate and regular rhythm Heart Sounds: normal S1 and normal S2 Extremities: + edema Skin: + crusts and + dry skin Neurologic: no focal motor deficits Psychiatric: A+Ox3, euthymic affect Results & Data Vital Signs (Past 12 Hours) Vital Signs Temp Pulse Pulse Resp BP Pulse Ox O2 Del Method 05/03/23 08:00 53 L 05/03/23 08:00 36.9 C 05/03/23 12:00 37.0 C 05/03/23 11:01 74 14 131/76 95 High Flow Nasal Cannula 05/03/23 10:00 69 21 96 05/03/23 09:01 79 20 134/85 100 CPAP 05/03/23 07:01 51 L 12 171/62 H 99 CPAP 05/03/23 11:00 78 20 91 High Flow Nasal Cannula 05/03/23 08:00 CPAP 05/03/23 07:35 59 L 20 100 05/03/23 07:21 61 20 100 CPAP 05/03/23 06:30 52 L 13 99 05/03/23 06:00 54 L 15 175/73 H 98 05/03/23 05:30 61 14 99 05/03/23 05:00 55 L 18 97 05/03/23 05:00 140/60 05/03/23 04:30 52 L 12 100 05/03/23 04:00 54 L 17 98 05/03/23 03:30 54 L 13 99 05/03/23 05:01 05/03/23 03:00 55 L 15 95 05/03/23 03:00 163/81 H 05/03/23 02:30 78 15 98 05/03/23 03:16 36.2 C L O2 Del Method O2 Flow Rate FiO2 05/03/23 08:00 05/03/23 08:00 05/03/23 12:00 05/03/23 11:01 100 05/03/23 10:00 05/03/23 09:01 80 05/03/23 07:01 80 05/03/23 11:00 50 100 05/03/23 08:00 80 05/03/23 07:35 80 05/03/23 07:21 15 05/03/23 06:30 05/03/23 06:00 05/03/23 05:30 05/03/23 05:00 05/03/23 05:00 05/03/23 04:30 05/03/23 04:00 05/03/23 03:30 05/03/23 05:01 CPAP 05/03/23 03:00 05/03/23 03:00 05/03/23 02:30 05/03/23 03:16 PG Care Time/CCT Total # of Minutes Spent Total Time Spent with Patient: Total time spent is greater than 50% in coordination of care (as documented) at patient's floor/unit and/or counseling patient: Coding Level of Care Code 17569 SUB INP/OBS CARE 2/35MIN Diagnoses COSMO (acute kidney injury) N17.9 Anemia D64.9 Acute respiratory failure with hypoxia J96.01 Multifocal pneumonia J18.9 Coronavirus infection B34.2
[2023-05-03] MEDS ORDERED: PATIROMER CALCIUM SORBITEX 8.4 GM PACK PO ONE (14:06)
[2023-05-03] MEDS ORDERED: amLODIPine BESYLATE 5 MG TAB PO ONE (15:45)
[2023-05-03] MEDS ORDERED: METOPROLOL SUCC 50MG EXT REL TAB PO STA (17:22)
[2023-05-03 18:00] LABS: BUN Creatinine Ratio 44.6 (10-20); C Reactive Protein 6.36 mg/dl (0-0.5); Calcium 8.4 mg/dl (8.6-10.3); Creatinine Clr Calc Pharmacy 81.4 ml/min; Est GFR (African American) 77.1 ml/min; Est GFR (Non-African American) 66.5 ml/min; Potassium 5.3 mmol/L (3.5-5.1)
[2023-05-03] MEDS ORDERED: FUROSEMIDE 40 MG/4 ML VIAL IV ONE (18:06)
[2023-05-03 18:22] LABS: iSTAT Allen Test Pass; iSTAT Art Bld Gas pCO2 Correct 42 mmHg (35-46); iSTAT Art Bld Gas pH Corrected 7.437 (7.35-7.45); iSTAT Arterial Blood Gas HCO3 28 meg/L (19-24); iSTAT Arterial Blood Gas pCO2 42 mmHg (35-46); iSTAT Arterial Blood Gas pH 7.44 (7.35-7.45); iSTAT Arterial Blood Gas pO2 63 mmHg (80-95); iSTAT Arterial Blood Gas pO2 C 63; iSTAT Carbon Dioxide 29 mmol/L (24-31); iSTAT FiO2 100 %; iSTAT Hematocrit 31 % (42-52); iSTAT Hemoglobin 10.5 g/dl (14.0-18.0); iSTAT Potassium 5.5 mmol/L (3.3-5.0); iSTAT Site R Radial; iSTAT Sodium 140 mmol/L (135-144)
[2023-05-03] MEDS ORDERED: LABETALOL HCL IV 5 MG/ML 20ML IV STA (19:08)
[2023-05-03] MEDS ORDERED: LABETALOL HCL IV 5 MG/ML 20ML IV ONE (19:15)
[2023-05-03] MEDS: methylPREDNISolone 100 MG in SYRINGE 0 ML IV SCH (19:17)
[2023-05-03] MEDS ORDERED: STAT IV Infusion **Titration per Protocol STA (19:33)
--- NOTE | 2023-05-03 19:49 | Hospitalist Progress Note ---
Date of Service May 03, 2023 Assessment & Plan (1) Acute respiratory failure with hypoxia: Plan: 2nd to ARDS in the setting of viral pneumonitis (non-COVID19 coronavirus on recent respiratory [employer]). Cont HFNC daytime; CPAP HS and naps. Cont diuresis. Cont steroids, abx, etc. (2) ARDS (adult respiratory distress syndrome): Plan: 2nd viral pneumonitis (non-COVID coronavirus) cannot exclude a component of acute/chronic diastolic CHF steroid dose increased today by critical care cont diuresis cont abx to cover for superimposed bacterial process (3) Viral pneumonitis: Plan: as above on cefepime + zithromax to cover for possible bacterial superinfection (4) Coronavirus infection: Plan: as above non-COVID19 strain (5) Chronic diastolic congestive heart failure: Plan: defer diuretic management to nephrology & cvt rn to keep I/O balance net negative (6) Diabetic ulcer of right heel: Plan: cont wound vac appreciate wound care assistance (7) Osteomyelitis of right foot: Plan: cont wound vac previous intra-op cultures from prior hospitalization with MRSA, enterococcus, and e.coli (8) WHIT (obstructive sleep apnea): Plan: CPAP HS and naps (9) Poorly controlled diabetes mellitus: Plan: a1c nearly 10% in March 2023 glycemic control via ICU glycemic protocol BSGs remain acceptable (10) Morbid obesity: Plan: BMI 41 (11) Agitation: Plan: appreciate psych consultation defer Rx to cvt rn & psych suspect ICU psychosis, steroid psychosis, lack of sleep, etc all contributing Plan constipation - ongoing - cont miralax + senna; consider dulcolax suppos DVT Proph - lovenox 40mg BID 2 daughters updated at bedside Admission and Anticipated Discharge Date Admission Date: April 30, 2023 Subjective events of overnight & today noted during my visit patient was on HFNC very talkative to the point where he was hard to interrupt and redirect 2 daughters at bedside he recalls his desaturation event this am denies dyspnea at rest during my visit tele wnl overnight Review of Systems Review of Systems: cv - no chest pain pulm - cough; no sputum; mild dyspnea at times GI - still constipated but no nausea/emesis Physical Exam Physical Exam: gen - morbidly obese, very talkative, talking in complete sentences, a little agitated neck - no obvious JVD mouth - MMM heart - RRR, s1 s2, no murmur lungs - fine, dry, bibasilar rales - unchanged; no wheeze; no distress abd - obese, still mildly distended, BS+, nontender ext - <1+ edema b/l, pulses 2+ b/l; lymphedema changes of b/l distal legs & feet skin - dressings intact right foot; woundvac in place right foot; hyperpigmen tation of b/l shins psych - awake, alert Results & Data Results & Data Vital Signs (Past 12 Hours) Vital Signs Temp Pulse Pulse Resp BP Pulse Ox O2 Del Method 05/03/23 19:41 81 22 94 High Flow Nasal Cannula 05/03/23 18:06 75 34 H 209/88 H 93 05/03/23 17:00 74 22 215/90 H 95 05/03/23 16:00 70 27 H 207/80 H 96 05/03/23 15:01 78 20 203/85 H 93 05/03/23 14:00 75 18 177/82 H 92 05/03/23 13:00 68 15 170/66 H 94 05/03/23 12:01 74 26 H 172/80 H 97 05/03/23 16:00 37.0 C 05/03/23 14:55 77 22 92 High Flow Nasal Cannula 05/03/23 08:00 53 L 05/03/23 08:00 36.9 C 05/03/23 12:00 37.0 C 05/03/23 11:01 74 14 131/76 95 High Flow Nasal Cannula 05/03/23 10:00 69 21 96 05/03/23 09:01 79 20 134/85 100 CPAP 05/03/23 11:00 78 20 91 High Flow Nasal Cannula 05/03/23 08:00 CPAP O2 Flow Rate FiO2 05/03/23 19:41 50 100 05/03/23 18:06 05/03/23 17:00 05/03/23 16:00 05/03/23 15:01 05/03/23 14:00 05/03/23 13:00 05/03/23 12:01 05/03/23 16:00 05/03/23 14:55 50 100 05/03/23 08:00 05/03/23 08:00 05/03/23 12:00 05/03/23 11:01 100 05/03/23 10:00 05/03/23 09:01 80 05/03/23 11:00 50 100 05/03/23 08:00 80 Laboratory Results Laboratory Results - last 24 hr 05/01/23 05/02/23 05/02/23 13:00 19:58 23:29 WBC RBC Hgb POC Hgb Hct POC Hct MCV MCH MCHC RDW Std Deviation RDW Coeff of Diane Plt Count MPV Sample Site POC pH POC pCO2 POC pO2 POC HCO3 POC Total CO2 POC Base Excess ABG pH (Temp Correct) ABG pCO2 (Temp Corrct POC ABG pO2 at Pt Temp POC ABG O2 Sat Estevan Test O2 Delivery Device POC FiO2 POC Sodium Sodium POC Potassium Potassium Chloride Carbon Dioxide Anion Gap BUN Creatinine Est Cr Clr Drug Dosing Est GFR ( Amer) Est GFR (Non-Af Amer) BUN/Creatinine Ratio Glucose POC Glucose 147 H 120 H Lactate Calcium Phosphorus Magnesium C-Reactive Protein B-Natriuretic Peptide Albumin Triglycerides Procalcitonin Urine Legionella Ag SEE NOTE 05/03/23 05/03/23 05/03/23 03:45 05:00 05:00 WBC 10.53 RBC 3.27 L Hgb 9.0 L POC Hgb Hct 30.3 L POC Hct MCV 92.7 MCH 27.5 MCHC 29.7 L RDW Std Deviation 58.5 H RDW Coeff of Diane 17.3 H Plt Count 266 MPV 9.3 L Sample Site POC pH POC pCO2 POC pO2 POC HCO3 POC Total CO2 POC Base Excess ABG pH (Temp Correct) ABG pCO2 (Temp Corrct POC ABG pO2 at Pt Temp POC ABG O2 Sat Estevan Test O2 Delivery Device POC FiO2 POC Sodium Sodium 140 POC Potassium Potassium 5.5 H Chloride 108 H Carbon Dioxide 29 Anion Gap 3 BUN 59 H Creatinine 1.25 Est Cr Clr Drug Dosing 79.2 Est GFR ( Amer) 74.1 Est GFR (Non-Af Amer) 64.0 BUN/Creatinine Ratio 47.2 H Glucose 104 H POC Glucose 122 H Lactate Calcium 8.3 L Phosphorus 4.0 Magnesium 2.5 H C-Reactive Protein B-Natriuretic Peptide Albumin 2.8 L Triglycerides Procalcitonin Urine Legionella Ag 05/03/23 05/03/23 05/03/23 07:58 12:14 16:30 WBC RBC Hgb POC Hgb Hct POC Hct MCV MCH MCHC RDW Std Deviation RDW Coeff of Diane Plt Count MPV Sample Site POC pH POC pCO2 POC pO2 POC HCO3 POC Total CO2 POC Base Excess ABG pH (Temp Correct) ABG pCO2 (Temp Corrct POC ABG pO2 at Pt Temp POC ABG O2 Sat Estevan Test O2 Delivery Device POC FiO2 POC Sodium Sodium POC Potassium Potassium Chloride Carbon Dioxide Anion Gap BUN Creatinine Est Cr Clr Drug Dosing Est GFR ( Amer) Est GFR (Non-Af Amer) BUN/Creatinine Ratio Glucose POC Glucose 121 H 133 H 130 H Lactate Calcium Phosphorus Magnesium C-Reactive Protein B-Natriuretic Peptide Albumin Triglycerides Procalcitonin Urine Legionella Ag 05/03/23 05/03/23 05/03/23 17:14 17:14 17:14 WBC RBC Hgb POC Hgb Hct POC Hct MCV MCH MCHC RDW Std Deviation RDW Coeff of Diane Plt Count MPV Sample Site POC pH POC pCO2 POC pO2 POC HCO3 POC Total CO2 POC Base Excess ABG pH (Temp Correct) ABG pCO2 (Temp Corrct POC ABG pO2 at Pt Temp POC ABG O2 Sat Estevan Test O2 Delivery Device POC FiO2 POC Sodium Sodium 141 POC Potassium Potassium 5.3 H Chloride 108 H Carbon Dioxide 28 Anion Gap 5 BUN 54 H Creatinine 1.21 Est Cr Clr Drug Dosing 81.4 Est GFR ( Amer) 77.1 Est GFR (Non-Af Amer) 66.5 BUN/Creatinine Ratio 44.6 H Glucose 127 H POC Glucose Lactate Calcium 8.4 L Phosphorus Magnesium C-Reactive Protein 6.36 H B-Natriuretic Peptide 441 H Albumin Triglycerides 199 H Procalcitonin 0.35 Urine Legionella Ag 05/03/23 05/03/23 17:14 18:06 WBC RBC Hgb POC Hgb 10.5 L Hct POC Hct 31 L MCV MCH MCHC RDW Std Deviation RDW Coeff of Diane Plt Count MPV Sample Site R Radial POC pH 7.44 POC pCO2 42 POC pO2 63 L POC HCO3 28 H POC Total CO2 29 POC Base Excess 4.0 H ABG pH (Temp Correct) 7.437 ABG pCO2 (Temp Corrct 42 POC ABG pO2 at Pt Temp 63 POC ABG O2 Sat 93.0 Estevan Test Pass O2 Delivery Device Hi Jarrett Can POC FiO2 100 POC Sodium 140 Sodium POC Potassium 5.5 H Potassium Chloride Carbon Dioxide Anion Gap BUN Creatinine Est Cr Clr Drug Dosing Est GFR ( Amer) Est GFR (Non-Af Amer) BUN/Creatinine Ratio Glucose POC Glucose Lactate 1.4 Calcium Phosphorus Magnesium C-Reactive Protein B-Natriuretic Peptide Albumin Triglycerides Procalcitonin Urine Legionella Ag Diagnostic Findings Chest X-Ray 05/03/23 07:00 XR chest 1V portable HISTORY: 57 years-old Male Resp failure acute shortness of breath with respiratory failure COMPARISON: 05/02/2023 TECHNIQUE: , 05/01/2023 FINDINGS: Cardiac silhouette is enlarged. Extensive reticular interstitial densities with intermixed air space opacities are again noted. No pleural effusion. Degenerative changes of the shoulders and spine. IMPRESSION: Cardiomegaly with unchanged extensive mixed interstitial and alve olar opacities without pleural effusion. Primary differential considerations again include pneumonia versus ARDS. ACT 112: Negative or not required by law. The above report was generated using voice recognition software. It may contain grammatical, syntax or spelling errors. Electronically signed by: Alejandro Bautista M.D. 05/03/2023 7:54 AM PG Care Time/CCT Total # of Minutes Spent Total Time Spent with Patient: Total time spent is greater than 50% in coordination of care (as documented) at patient's floor/unit and/or counseling patient: Coding Level of Care Code 74992 SUB INP/OBS CARE 1/25MIN Diagnoses Acute respiratory failure with hypoxia J96.01 ARDS (adult respiratory distress syndrome) J80 Viral pneumonitis J12.9 Coronavirus infection B34.2 Chronic diastolic congestive heart failure I50.32 Diabetic ulcer of right heel E11.621; L97.419 Osteomyelitis of right foot M86.9 WHIT (obstructive sleep apnea) G47.33 Poorly controlled diabetes mellitus E11.65 Morbid obesity E66.01 Agitation R45.1
[2023-05-03] MEDS: niCARdipine 25 MG in SODIUM CHLORIDE 0.9% 240 ML IV SCH (20:03)
[2023-05-03] MEDS: ATORVASTATIN 40 MG TAB PO SCH (20:23)
[2023-05-03] MEDS: rOPINIRole HCL 0.25 MG TABLET PO SCH (20:23)
[2023-05-03] MEDS: PANTOprazole 40 MG TAB PO SCH (20:23)
[2023-05-04] MEDS: hydrOXYzine HCl 25 MG TAB PO PRN ×2 (00:09→08:59)
[2023-05-04] MEDS: methylPREDNISolone 100 MG in SYRINGE 0 ML IV SCH ×3 (01:21→17:50)
[2023-05-04] MEDS: niCARdipine 25 MG in SODIUM CHLORIDE 0.9% 240 ML IV SCH ×5 (01:21→19:56)
[2023-05-04 05:12] LABS: BUN Creatinine Ratio 42.6 (10-20); Calcium 8.5 mg/dl (8.6-10.3); Creatinine Clr Calc Pharmacy 72.4 ml/min; Est GFR (African American) 66.9 ml/min; Est GFR (Non-African American) 57.8 ml/min; Magnesium 2.6 mg/dl (1.7-2.4); Phosphorus 3.1 mg/dl (2.5-4.9); Potassium 5.1 mmol/L (3.5-5.1)
[2023-05-04 05:30] LABS: BUN Creatinine Ratio 41.5 (10-20); Calcium 8.9 mg/dl (8.6-10.3); Creatinine Clr Calc Pharmacy 72.9 ml/min; Est GFR (African American) 67.5 ml/min; Est GFR (Non-African American) 58.3 ml/min; Potassium 5.1 mmol/L (3.5-5.1)
[2023-05-04 06:14] LABS: Basophils # (auto) 0.02 K/uL (0-0.2); Basophils % (auto) 0.2 %; Hematocrit (blood only) 32.6 % (42.0-52.0); Hemoglobin 9.9 g/dl (14.0-18.0); Immature Granulocytes # (auto) 0.16 K/uL (0.01-0.20); Immature Granulocytes % (auto) 1.7 %; Lymphocytes % (auto) 7.3 %; Mean Corpuscular Hemoglobin 27.7 pg (25.0-34.0); Mean Corpuscular Hgb Conc 30.4 g/dL (32.0-36.0); Mean Corpuscular Volume 91.3 fL (80.0-100.0); Mean Platelet Volume 9.8 fL (9.4-12.4); Monocytes # (auto) 0.54 K/uL (0.11-0.59); Monocytes % (auto) 5.6 %; Neutrophils # (auto) 8.22 K/uL (1.40-6.50); Neutrophils % (auto) 85.2 %; Platelet Count 237 K/uL (130-400); RDW Coefficient of Variation 17.1 % (11.5-14.5); RDW Standard Deviation 56.7 fL (36.4-46.3); Red Blood Count 3.57 M/uL (4.70-6.10); White Blood Count 9.64 K/ul (4.8-10.8)
[2023-05-04 06:26] LABS: Magnesium 2.6 mg/dl (1.7-2.4)
[2023-05-04] MEDS: FORMOTEROL 20 MCG/2 ML VIAL NEB SCH ×2 (07:03→19:33)
[2023-05-04] MEDS: SODIUM CHLOR 7% 4 ML NEB NEB SCH ×2 (07:20→19:32)
[2023-05-04] MEDS: SENNA 8.6 MG TAB PO SCH (07:54)
[2023-05-04] MEDS: ASPIRIN 81 MG ECTAB PO SCH ×2 (07:54→20:32)
[2023-05-04] MEDS: BUMETANIDE 1 MG TAB PO SCH (07:54)
[2023-05-04] MEDS: GABAPENTIN 600 MG TAB PO SCH (07:54)
[2023-05-04] MEDS: METOPROLOL SUCC 50MG EXT REL TAB PO SCH (07:54)
[2023-05-04] MEDS: POLYETHYLENE (MIRALAX) 17 GM PACK PO SCH (07:54)
[2023-05-04] MEDS: INSULIN ASPART PER UNIT CHARGE SC SCH ×4 (07:55→20:12)
[2023-05-04] MEDS ORDERED: amLODIPine BESYLATE 5 MG TAB PO SCH (09:00)
[2023-05-04] MEDS ORDERED: LANTUS PER UNIT CHARGE SQ SCH (09:00)
--- NOTE | 2023-05-04 10:13 | Nephrology Progress Note ---
Date of Service May 04, 2023 Assessment & Plan (1) COSMO (acute kidney injury): (2) Anemia: (3) Acute respiratory failure with hypoxia: (4) Multifocal pneumonia: (5) Coronavirus infection: Plan 57-year-old gentleman with stage IIIB CKD b/l cr 1.5-1.6 although during recent hospitalization creatinine was low at around 1.3-1.4, admitted with hypoxic respiratory failure within 1 day after discharge recent hospitalization with possible viral pneumonitis. CT chest was concerning for ARDS versus viral pneumonitis with recent COVID-19 infection and also concern for transfusion reaction as recently he received PRBC. Clinically relatively stable, bilateral lower extremity edema stable and net negative total >6 L. Renal function stable, electrolyte acceptable. Iron store adequate, hemoglobin stable. --continue Bumex 2 mg po daily, accurate intake and output, aim for net ne gative. -- low-potassium diet, monitor renal function, electrolytes closely Will sign off. Admission and Anticipated Discharge Date Admission Date: April 30, 2023 Subjective Inder was seen and evaluated this morning. He was doing much better, LE edema improved, > 1.5 L negative. Renal function improved and stable. Review of Systems Review of Systems: Detailed review of system was otherwise unremarkable. Physical Exam Constitutional: WD/WN, vitals as above no acute distress Eyes: + anicteric sclerae Respiratory: no respiratory distress Auscultation: + crackles Cardiovascular: Rate/Rhythm: regular rate and regular rhythm Heart Sounds: normal S1 and normal S2 Extremities: + edema (trace b/l LE edema.) Skin: + crusts and + dry skin Neurologic: no focal motor deficits Psychiatric: A+Ox3, euthymic affect Results & Data Vital Signs (Past 12 Hours) Vital Signs Temp Pulse Pulse Resp BP BP Pulse Ox 05/04/23 07:00 36.8 C 78 24 147/82 H 93 05/04/23 08:00 78 05/04/23 07:40 76 18 90 05/04/23 07:20 75 17 94 05/04/23 05:27 05/04/23 04:00 78 20 148/70 H 94 05/04/23 03:00 83 20 141/54 H 91 05/04/23 02:00 69 30 H 139/54 L 94 05/04/23 01:31 72 28 H 148/70 H 92 05/04/23 01:00 66 21 152/61 H 91 05/04/23 00:30 68 19 139/60 91 05/04/23 00:00 69 19 137/58 L 93 05/03/23 23:30 69 18 159/62 H 97 05/03/23 23:00 72 21 149/62 H 94 05/03/23 22:30 72 18 156/61 H 96 Pulse Ox O2 Del Method O2 Del Method O2 Flow Rate FiO2 05/04/23 07:00 CPAP 05/04/23 08:00 05/04/23 07:40 High Flow Nasal Cannula 50 100 05/04/23 07:20 15 05/04/23 05:27 91 CPAP 05/04/23 04:00 15 05/04/23 03:00 15 05/04/23 02:00 05/04/23 01:31 05/04/23 01:00 05/04/23 00:30 05/04/23 00:00 05/03/23 23:30 05/03/23 23:00 05/03/23 22:30 PG Care Time/CCT Total # of Minutes Spent Total Time Spent with Patient: Total time spent is greater than 50% in coordination of care (as documented) at patient's floor/unit and/or counseling patient: Coding Level of Care Code 66551 SUB INP/OBS CARE 2/35MIN Diagnoses COSMO (acute kidney injury) N17.9 Anemia D64.9 Acute respiratory failure with hypoxia J96.01 Multifocal pneumonia J18.9 Coronavirus infection B34.2
[2023-05-04] MEDS: ENOXAPARIN INJ 40 MG/0.4 ML SYR SQ SCH (10:34)
--- NOTE | 2023-05-04 10:42 | Critical Care Progress Note ---
Date of Service May 04, 2023 Assessment & Plan (1) ARDS (adult respiratory distress syndrome): (2) Viral pneumonitis: (3) Acute respiratory failure with hypoxia: (4) Coronavirus infection: (5) Osteomyelitis: (6) COSMO (acute kidney injury): (7) Hyperkalemia: (8) Agitation: Plan He continues to be quite dyspneic with minimal exertion and is essentially dependent on CPAP therapy with high flow oxygen bled in. He is intolerant of weaning oxygen. He is reluctant to be intubated at this time unless. He understands that he is severely ill. Yesterday he developed severe hypertension with systolic blood pressures in the 240s. He remains on a nicardipine drip at this time. We are continuing metoprolol and start amlodipine. Continue diuresis with Bumex. I have increased his methylprednisolone to 100 mg 3 times a day given his elevated CRP and persistent pneumonitis findings on imaging. Antibiotics discontinued 05/03/2022 as his procalcitonin was unremarkable and his urine Legionella was negative. He essentially has ARDS secondary to severe viral pneumonitis. Continue GI prophylaxis with Protonix. Continue DVT prophylaxis with Lovenox. PICC line in place in the right arm. CRITICAL CARE TIME - I have personally spent 49 minutes of critical care time in the direct management of this patient. This is a life/limb threatening event. This includes time spent evaluating patient, direct bedside care, chart review, placing orders, interpretation of diagnostic studies, discussion with consultants, patient, and family members, as well as other required patient management activities. This time is exclusive of all separately billable procedures, and teaching time and separate from and in addition to any other critical care service time. Admission and Anticipated Discharge Date Admission Date: April 30, 2023 Subjective Unfortunately, the patient has not had any significant improvement in his oxygenation. He is now using his home CPAP with oxygen bled in at a high flow rate of over 15 L/min. He becomes tachypneic mid sentence and is not tolerant of oxygen being weaned down. He is still refusing intubation at this time un less essentially needed emergently. He would like to talk to his family first in person prior to intubation. He is requesting food despite being told numerous times that he is at high risk for aspiration. He is asking to sit up in bed and have his feet dangle over the bed. He denies any chest pain. He denies any shortness of breath, but he does appear to be dyspneic when speaking. He has not had any fevers overnight. He is making good urine. Review of Systems Review of Systems: All systems reviewed & are unremarkable except as noted in HPI & below Physical Exam Physical Exam: Constitutional: Patient appears to be of their stated age. Patient is in moderate distress. Patient is well-developed. Obese. Eyes: Pupils are equal round and reactive to light. Conjunctivae are normal. Anicteric sclera. Ears nose, mouth and throat: Mallampati class 2. Normal posterior oropharynx. Uvula is midline. Neck: Trachea is midline. Visual inspection is normal. Respiratory: Increased work of breathing. Diminished lung sounds at the bases. Clear to auscultation elsewhere. Cardiovascular: Tachycardic. No murmurs. No edema. Gastrointestinal: Normal bowel sounds, soft, nontender and nondistended. No hepatosplenomegaly noted. Musculoskeletal: No cyanosis. Patient is able to move all extremities. Strength is 5 out of 5 in the upper and lower extremities. Skin: No rashes, warm dry and intact. Large open wound on the right heel. Neurologic: No obvious focal neurological deficits seen. Psychiatric: Alert and oriented x3. Anxious appearing mood. Results & Data Results & Data Vital Signs (Past 12 Hours) Vital Signs Temp Pulse Pulse Resp BP BP Pulse Ox 05/04/23 10:18 05/04/23 07:00 36.8 C 78 24 147/82 H 93 05/04/23 08:00 78 05/04/23 07:40 76 18 90 05/04/23 07:20 75 17 94 05/04/23 05:27 05/04/23 04:00 78 20 148/70 H 94 05/04/23 03:00 83 20 141/54 H 91 05/04/23 02:00 69 30 H 139/54 L 94 05/04/23 01:31 72 28 H 148/70 H 92 05/04/23 01:00 66 21 152/61 H 91 05/04/23 00:30 68 19 139/60 91 05/04/23 00:00 69 19 137/58 L 93 05/03/23 23:30 69 18 159/62 H 97 05/03/23 23:00 72 21 149/62 H 94 Pulse Ox O2 Del Method O2 Del Method O2 Flow Rate FiO2 05/04/23 10:18 CPAP 100 05/04/23 07:00 CPAP 05/04/23 08:00 05/04/23 07:40 High Flow Nasal Cannula 50 100 05/04/23 07:20 15 05/04/23 05:27 91 CPAP 05/04/23 04:00 15 05/04/23 03:00 15 05/04/23 02:00 05/04/23 01:31 05/04/23 01:00 05/04/23 00:30 05/04/23 00:00 05/03/23 23:30 05/03/23 23:00 Coding Level of Care Code 47896 CRITICAL CARE 1ST 30-74M Diagnoses ARDS (adult respiratory distress syndrome) J80 Viral pneumonitis J12.9 Acute respiratory failure with hypoxia J96.01 Coronavirus infection B34.2 Osteomyelitis M86.9 COSMO (acute kidney injury) N17.9 Hyperkalemia E87.5 Agitation R45.1
--- NOTE | 2023-05-04 11:00 | XRay Report ---
SINGLE VIEW CHEST CLINICAL HISTORY: Hypoxia FINDINGS: An AP, portable, upright chest radiograph is compared to study dated 05/03/2023 and correlat ed with chest CT dated 05/01/2023. A right PICC line is unchanged in position. The heart is enlarged. Extensive bilateral airspace opacities are similar to previous. No large pleural effusion or pneumoth orax is seen. The skeletal structures are osteopenic. The bony thorax is grossly intact. IMPRESSION: Diffuse bilateral airspace opacities have not appreciably changed from yesterday. Differe ntial considerations remain pulmonary edema, multifocal pneumonia, and/or ARDS. Clinical correlation will be essential and follow-up to resolution is recommended. ACT 112: Negative or not required by law. Electronically signed by: Fernando Carver M.D. 05/04/2023 10:58 AM
[2023-05-04] MEDS ORDERED: RAPID SEQUENCE INDUCTION BAG ONE (12:14)
[2023-05-04] MEDS ORDERED: PROPOFOL IV EMULSION 10 MG/ML 100 ML VIAL IV ONE (12:47)
[2023-05-04] MEDS ORDERED: CISATRACURIUM BOLUS FROM BAG IV ONE ×3 (12:57→19:12)
[2023-05-04] MEDS ORDERED: CISATRACURIUM BESYLATE IV SOLN 2 MG/ML 10 ML VIAL IV STA ×2 (12:57→13:11)
[2023-05-04] MEDS ORDERED: PROPOFOL BOLUS FROM BAG IV PRN ×2 (13:01→13:32)
[2023-05-04] MEDS ORDERED: PROPOFOL IV EMULSION 10 MG/ML 20 ML VIAL IV STA (13:01)
[2023-05-04] MEDS ORDERED: STAT IV Infusion **Titration per Protocol STA ×3 (13:03→13:32)
[2023-05-04] MEDS ORDERED: fentaNYL BOLUS from BAG IV PRN ×3 (13:03→13:32)
--- NOTE | 2023-05-04 13:07 | XRay Report ---
SINGLE VIEW CHEST CLINICAL HISTORY: Respiratory failure. FINDINGS: An AP, portable, supine chest radiograph is compared to study performed earlier the same da y 05/04/2023 and correlated with chest CT dated 05/01/2023. A right PICC line is unchanged in position. An endotracheal tube has been placed. The tip projects 3.5 cm above the lizeth. An enteric tube has been placed. The tip projects below the diaphragm. The heart is enlarged. Extensive bilateral airspac e opacities are similar to previous. No large pleural effusion or pneumothorax is seen. The skeletal structures are osteopenic. The bony thorax is grossly intact. IMPRESSION: 1. Endotracheal and enteric tube placement as above. 2. Diffuse bilateral airspace opacities have not appreciably changed from today's earlier examination . ACT 112: Negative or not required by law. Electronically signed by: Fernando Carver M.D. 05/04/2023 1:05 PM
[2023-05-04] MEDS ORDERED: STAT IV STA ×2 (13:11→23:02)
[2023-05-04] MEDS ORDERED: fentaNYL citrate 2,500 MCG/250 ML BAG IV ONE (13:11)
[2023-05-04] MEDS ORDERED: fentaNYL citrate 2,500 MCG/250 ML BAG IV SCH ×2 (13:15→13:45)
[2023-05-04] MEDS ORDERED: VECURONIUM BROMIDE 10 MG VIAL IV ONE (13:20)
[2023-05-04] MEDS ORDERED: VECURONIUM BROMIDE 10 MG in SYRINGE 0 ML IV STA (13:31)
[2023-05-04] MEDS: CISATRACURIUM BESYLATE 40 MG in DEXTROSE 5% 80 ML IV SCH ×3 (13:33→23:58)
[2023-05-04] MEDS: propofoL 1,000 MG/100 ML VIAL IV SCH ×3 (13:43→21:57)
[2023-05-04] MEDS: ARTIFICIAL TEARS OP OINT 3.5 GM TUBE OP SCH ×3 (13:43→23:19)
--- NOTE | 2023-05-04 14:11 | Procedure Note ---
Procedure Note Date of Service May 04, 2023 Supervising Physician Co-Signing Physician Notes INTUBATION PROCEDURE NOTE: Dr. Al Donato A time-out was completed verifying correct patient, procedure, site, positioning. Patient was evaluated and required intubation for acute hypoxemic respiratory failure. Sedative agent used: 30 mg at home and Paralysis agent used: 50 mg rocuronium Consent signed and placed on chart. Number of attempts: 1 Grade view: 1 The patient was prepared in the appropriate fashion. Sedation was achieved utilizing etomidate and rocuronium. The patient was easily ventilated using [id number] to achieve adequate oxygenation. A 8 [place] endotracheal tube was placed under glide scope to 24 cm at the lip. The stylette was removed and balloon was inflated with 10mL of air. Appropriate Colorimetric change was appreciated. Bilateral breath sounds were heard without air sounds in the abdomen. Post Intubation Chest X-ray ordered and ET tube was appropriately placed. No evidence of pneumothorax. Patient tolerated the procedure well and there were no immediate complications. Coding CPT Codes Resuscitation - Resuscitation: [id number] Endotracheal Intubation, emergency ([id number]) [facility] [place] Procedure Codes (Charges) Resuscitation Resuscitation: [id number] Endotracheal Intubation, emergency
[2023-05-04 14:26] LABS: iSTAT Art Bld Gas pCO2 Correct 102 mmHg (35-46); iSTAT Art Bld Gas pH Corrected 7.108 (7.35-7.45); iSTAT Arterial Blood Gas HCO3 33 meg/L (19-24); iSTAT Arterial Blood Gas pCO2 104 mmHg (35-46); iSTAT Arterial Blood Gas pO2 76 mmHg (80-95); iSTAT Arterial Blood Gas pO2 C 75; iSTAT Carbon Dioxide 36 mmol/L (24-31); iSTAT FiO2 85 %; iSTAT Hematocrit 34 % (42-52); iSTAT Hemoglobin 11.6 g/dl (14.0-18.0); iSTAT Potassium 5.6 mmol/L (3.3-5.0); iSTAT Site Art Line; iSTAT Sodium 145 mmol/L (135-144)
--- NOTE | 2023-05-04 14:26 | Procedure Note ---
Procedure Note Date of Service May 04, 2023 Note Right axillary ARTERIAL LINE PROCEDURE NOTE: Procedure: Right axillary arterial Line Placement Indication: Monitoring on Pressors Anesthesia: Continuous propofol was infusing at the time of the procedure. Consent was signed and placed on the chart prior to procedure. Indication, risks, and benefits were explained at length. A time-out was completed verifying correct patient, procedure, site, positioning, and implant(s) or special equipment if applicable. Patients right axillary region was prepped and draped in the usual sterile fashion. Ultrasound guidance was used to aid needle placement. A 20g Arrow arterial line was introduced into the right axillary artery. Catheter was threaded, and the needle was removed with appropriate blood return. Good waveform was observed. The patient tolerated the procedure well. Blood Loss: Minimal Complications: None Coding CPT Codes Tubes, Drains, and Vasc Access - Tubes, Drains, and Vasc Access: [id number] Arterial Cath/Cannulation Sampling/Monitoring/Transfusion ([id number]) [facility] [place] Procedure Codes (Charges) Tubes, Drains, and Vasc Access Procedure 1: Tubes, Drains, and Vasc Access: [id number] Arterial Cath/Cannulation Sampling/Monitoring/Transfusion
--- NOTE | 2023-05-04 14:28 | Procedure Note ---
Procedure Note Date of Service May 04, 2023 Note Right INTERNAL JUGULAR CENTRAL LINE PROCEDURE NOTE: Procedure: Internal Jugular Central Line Placement Indication: Central Drug Administration, Poor Venous Access, Multiple Lab Draws Necessary, etc. Anesthesia: Continuous propofol was infusing at the time of the procedure/5 ml Lidocaine 1% Procedure was done emergently and consent was implied. A time-out was completed verifying correct patient, procedure, site, posit ioning, and implants(s) or special equipment if applicable. Patients right neck was cleansed and draped in the typical sterile fashion using Chloraprep. The Internal Jugular Vein and Carotid Artery were identified using ultrasound. The superficial tissue was anesthetized using 5 mL of 1% lidocaine without epinephrine under direct visualization with the ultrasound. After adequate anesthetization was achieved, the Internal Jugular vein was cannulated under direct ultrasound guidance using an introducer needle on a syringe. Good venous blood return was maintained prior to removal of syringe from introducer needle. Using Seldinger Technique, a guide wire was advanced through the introducer needle without resistance. The introducer needle was removed and ultrasound images were obtained of the guide wire within the Internal Jugular Vein and saved to the patients medical record. A small incision was made in penetrating fashion at the guide wire insertion site utilizing an 11 blade scalpel. The dilator was advanced to the vessel without resistance. The dilator was exchanged for the triple lumen catheter which was advanced into the vessel without resistance. The guide wire was removed intact from the catheter without issue. Claves were placed on each catheter tip with confirmation of good blood flow from each lumen. Each port was easily flushed with sterile saline. The catheter was placed at 16 cm and sutured in place. BioPatch was applied to the catheter and a sterile Tegaderm dressing was applied over the catheter with careful attention to sterility. Patient tolerated procedure well. No immediate complications were met. Post procedure x-ray was completed, placement was appropriate and no pneumothorax was noted. Coding CPT Codes Tubes, Drains, and Vasc Access - Tubes, Drains, and Vasc Access: [id number] Place catheter in vein superior or inferior vena cava ([id number]) Tubes, Drains, and Vasc Access - Tubes, Drains, and Vasc Access: [id number] Ultrasonic Guide For Needle Placement ([id number]) [facility] [place] Codes (Charges) Tubes, Drains, and Vasc Access Procedure 1: Tubes, Drains, and Vasc Access: [id number] Place catheter in vein superior or inferior vena cava Procedure 2: Tubes, Drains, and Vasc Access: [id number] Ultrasonic Guide For Needle Placement
--- NOTE | 2023-05-04 14:42 | XRay Report ---
XR chest 1V portable HISTORY: 57 years-old Male central line placement. Status post placement of a right IJ central venou s catheter COMPARISON: 05/04/2023 TECHNIQUE: AP view of the chest FINDINGS: Endotracheal tube overlies the midline, 2.9 cm superior to the lizeth. Status post placement of a rig ht IJ central venous catheter distal tip in the expected location of the mid SVC. A right-sided PICC is again noted with distal tip in the expected location of the inferior SVC. Enteric tube courses int o the stomach with distal tip outside the [id number]. Cardiomegaly with mixed interstitial and alveolar opacities again noted. Probable small pleural effus ions. No pneumothorax. IMPRESSION: 1. Cardiomegaly with unchanged diffuse mixed interstitial and alveolar opacities. 2. Lines and tubes as above. 3. No pneumothorax. ACT 112: Negative or not required by law. The above report was generated using voice recognition software. It may contain grammatical, syntax o r spelling errors. Electronically signed by: Alejandro Bautista M.D. 05/04/2023 2:41 PM
[2023-05-04] MEDS ORDERED: CASPOFUNGIN 70 MG in SODIUM CHLORIDE 0.9% 250 ML IV STA (15:02)
[2023-05-04] MEDS: PANTOprazole 40 MG in DEXTROSE 5% 100 ML IV SCH ×3 (15:42→21:59)
[2023-05-04 15:57] LABS: Hematocrit (blood only) 34.1 % (42.0-52.0); Hemoglobin 10.3 g/dl (14.0-18.0); Mean Corpuscular Hemoglobin 27.8 pg (25.0-34.0); Mean Corpuscular Hgb Conc 30.2 g/dL (32.0-36.0); Mean Corpuscular Volume 92.2 fL (80.0-100.0); Mean Platelet Volume 9.6 fL (9.4-12.4); Platelet Count 284 K/uL (130-400); RDW Coefficient of Variation 17.2 % (11.5-14.5); RDW Standard Deviation 57.7 fL (36.4-46.3); White Blood Count 24.43 K/ul (4.8-10.8)
[2023-05-04 16:09] LABS: Basophils # (auto) 0.03 K/uL (0-0.2); Basophils % (auto) 0.1 %; Eosinophils # (auto) 0.01 K/uL (0-0.50); Immature Granulocytes # (auto) 0.38 K/uL (0.01-0.20); Immature Granulocytes % (auto) 1.6 %; Lymphocytes # (auto) 0.92 K/uL (1.2-3.4); Lymphocytes % (auto) 3.8 %; Monocytes # (auto) 1.18 K/uL (0.11-0.59); Monocytes % (auto) 4.8 %; Neutrophils # (auto) 21.91 K/uL (1.40-6.50); Neutrophils % (auto) 89.7 %
[2023-05-04 16:15] LABS: iSTAT Art Bld Gas pCO2 Correct 75 mmHg (35-46); iSTAT Art Bld Gas pH Corrected 7.196 (7.35-7.45); iSTAT Arterial Blood Gas HCO3 29 meg/L (19-24); iSTAT Arterial Blood Gas pCO2 76 mmHg (35-46); iSTAT Arterial Blood Gas pH 7.19 (7.35-7.45); iSTAT Arterial Blood Gas pO2 79 mmHg (80-95); iSTAT Arterial Blood Gas pO2 C 77; iSTAT Carbon Dioxide 31 mmol/L (24-31); iSTAT FiO2 55 %; iSTAT Hematocrit 33 % (42-52); iSTAT Hemoglobin 11.2 g/dl (14.0-18.0); iSTAT Potassium 5.8 mmol/L (3.3-5.0); iSTAT Site Art Line; iSTAT Sodium 142 mmol/L (135-144)
--- NOTE | 2023-05-04 17:41 | Communication Note ---
Date of Service: May 04, 2023 Patient's hypoxemia became progressively worse throughout the day and the patient was agreeable with intubation. He was successfully intubated without issue. I placed a right IJ central line and a right axillary arterial line. Due to refractory hypoxemia on ARDSnet protocol, the patient was proned. ABG suggesting hypercapnic respiratory failure. We will continue to trend ABG and aim for permissive hypercapnia with pH 7.25 or above. Patient continues to require nicardipine drip to maintain systolic blood pressures under 180 despite the use of propofol and fentanyl. Patient was also started on neuromuscular blockade due to refractory hypoxemia. Patient's daughter, Cindy was updated at bedside and she is in agreement with the plan as outlined. We also had a discussion regarding the patient's goals of care and CODE STATUS. She indicated that she would like her father to be a DNR in the event of a cardiac arrest as this would be in line with his wishes and she understands that he is gravely ill at this time. Patient proned at 1430 with significant improvement in oxygen saturations. I was present for the proning maneuver. We will continue with 16 hours of proning. Additionally, OG tube was placed and there was evidence of scants amounts of bright red blood suctioned. Patient started on Protonix drip. Repeat hemoglobin stable at 10.3. WBC count increased to 24,000. We will restart broad-spectrum antibiotics. CRITICAL CARE TIME - I have personally spent 48 minutes of critical care time in the direct manag ement of this patient. This is a life/limb threatening event. This includes time spent evaluating patient, direct bedside care, chart review, placing orders, interpretation of diagnostic studies, discussion with consultants, patient, and family members, as well as other required patient management activities. This time is exclusive of all separately billable procedures, and teaching time and separate from and in addition to any other critical care service time. Coding Level of Care Code 53209 CRITICAL CARE 1ST 30-74M
[2023-05-04] MEDS ORDERED: VANCOMYCIN CONSULT ACTIVE PRN (17:51)
[2023-05-04] MEDS ORDERED: VANCOMYCIN HCL 2,250 MG in SODIUM CHLORIDE 0.9% 500 ML IV ONE (17:51)
[2023-05-04 18:04] LABS: iSTAT Art Bld Gas pCO2 Correct 68 mmHg (35-46); iSTAT Art Bld Gas pH Corrected 7.226 (7.35-7.45); iSTAT Arterial Blood Gas HCO3 28 meg/L (19-24); iSTAT Arterial Blood Gas pCO2 69 mmHg (35-46); iSTAT Arterial Blood Gas pH 7.22 (7.35-7.45); iSTAT Arterial Blood Gas pO2 78 mmHg (80-95); iSTAT Arterial Blood Gas pO2 C 76; iSTAT Carbon Dioxide 30 mmol/L (24-31); iSTAT FiO2 55 %; iSTAT Hematocrit 32 % (42-52); iSTAT Hemoglobin 10.9 g/dl (14.0-18.0); iSTAT Site Art Line; iSTAT Sodium 141 mmol/L (135-144)
[2023-05-04] MEDS ORDERED: VANCOMYCIN HCL 1,500 MG in SODIUM CHLORIDE 0.9% 500 ML IV SCH (18:15)
[2023-05-04] MEDS ORDERED: PIPERACILLIN/TAZOBACTAM 4.5 GM (over 30 mins) IV ONE (18:30)
[2023-05-04 19:12] LABS: Fungitell (1-3)-B-D-Glucan <31 pg/mL
--- NOTE | 2023-05-04 19:37 | Hospitalist Progress Note ---
Date of Service May 04, 2023 Assessment & Plan (1) Acute respiratory failure with hypoxia and hypercapnia: Plan: 2nd to ARDS in the setting of viral pneumonitis (non-COVID19 coronavirus on recent respiratory BioFire) +/- acute/chronic diastolic CHF. Now s/p intubation today. ARDSNet vent protocol per [facility] chemist. Proned. Paralyzed. Continuing diuresis, abx, steroids, etc. Prognosis is guarded. (2) ARDS (adult respiratory distress syndrome): Plan: 2nd viral pneumonitis (non-COVID coronavirus) cannot exclude a component of acute/chronic diastolic CHF see #1 above (3) Viral pneumonitis: Plan: as above on cefepime + zithromax to cover for possible bacterial superinfection (4) Coronavirus infection: Plan: as above non-COVID19 strain (5) Chronic diastolic congestive heart failure: Plan: defer diuretic management to nephrology & [facility] chemist (6) Diabetic ulcer of right heel: Plan: cont wound vac appreciate wound care assistance (7) Osteomyelitis of right foot: Plan: cont wound vac previous intra-op cultures from prior hospitalization with MRSA, enterococcus, and e.coli (8) WHIT (obstructive sleep apnea): Plan: now intubated (9) Poorly controlled diabetes mellitus: Plan: a1c nearly 10% in March 2023 glycemic control via ICU glycemic protocol (10) Morbid obesity: Plan: BMI 41 (11) Agitation: Plan: likely had had ICU psychosis, steroid psychosis, agitation from hypoxia, etc now intubated and sedated/paralyzed Plan DVT Proph - lovenox 40mg BID patient remains critically ill with guarded prognosis Admission and Anticipated Discharge Date Admission Date: April 30, 2023 Subjective events of last 24 hours noted patient was intubated earlier today due to worsening hypoxemia despite maxed HFNC now intubated, proned, paralyzed appreciate ICU assistance Review of Systems Review of Systems: Unobtainable due to endotracheal tube Physical Exam Physical Exam: limited exam due to proned positioning on vent - gen - morbidly obese, intubated, proned heart - RRR, s1 s2, no murmur lungs - fine, dry, bibasilar rales - unchanged; no wheeze; tachypneic ext - <1+ edema b/l, pulses 1-2+ b/l; lymphedema changes of b/l distal legs & feet skin - dressings intact right foot; woundvac in place right foot Results & Data Results & Data Vital Signs (Past 12 Hours) Vital Signs Pulse Pulse Resp BP Pulse Ox O2 Del Method O2 Flow Rate 05/04/23 19:20 65 35 H 92 05/04/23 19:20 65 35 H 92 Mechanical Vent 05/04/23 18:15 35 H 05/04/23 18:01 63 35 H 94 05/04/23 18:01 129/47 L 05/04/23 18:00 65 35 H 94 05/04/23 17:31 64 35 H 94 05/04/23 17:31 134/50 L 05/04/23 17:30 63 35 H 94 05/04/23 17:01 130/48 L 05/04/23 17:01 65 35 H 94 05/04/23 17:00 73 35 H 94 05/04/23 16:31 139/52 L 05/04/23 16:31 64 35 H 94 05/04/23 16:30 66 35 H 94 05/04/23 16:01 69 32 H 94 05/04/23 16:01 134/55 L 05/04/23 16:00 75 32 H 93 05/04/23 15:36 132/50 L 05/04/23 15:36 72 32 H 93 05/04/23 18:00 05/04/23 16:09 70 35 H 98 05/04/23 12:00 68 18 98 05/04/23 12:00 159/122 H 05/04/23 11:30 67 17 99 05/04/23 11:00 69 15 96 05/04/23 11:00 166/71 H 05/04/23 10:30 72 19 94 05/04/23 10:00 60 16 99 05/04/23 10:00 158/68 H 05/04/23 09:30 78 25 H 93 05/04/23 09:01 85 27 H 88 L 05/04/23 09:01 155/64 H 05/04/23 09:00 87 21 84 L 05/04/23 08:45 145/79 H 05/04/23 08:45 73 18 97 05/04/23 08:30 72 20 99 05/04/23 08:00 81 28 H 89 L 05/04/23 15:31 157/51 H 05/04/23 15:31 77 32 H 93 05/04/23 15:15 73 32 H 93 05/04/23 15:15 142/58 H 05/04/23 15:01 137/66 05/04/23 15:01 65 32 H 93 05/04/23 15:00 66 32 H 93 05/04/23 14:46 82 32 H 87 L 05/04/23 14:46 160/53 H 05/04/23 14:33 156/65 H 05/04/23 14:33 89 34 H 100 05/04/23 14:16 82 28 H 89 L 05/04/23 14:16 189/73 H 05/04/23 14:01 82 28 H 93 05/04/23 14:01 182/69 H 05/04/23 14:00 80 28 H 93 05/04/23 13:46 80 28 H 93 05/04/23 13:46 194/72 H 05/04/23 13:31 197/70 H 05/04/23 13:31 84 28 H 94 05/04/23 13:16 221/79 H 05/04/23 13:16 99 H 30 H 92 05/04/23 13:13 226/80 H 05/04/23 13:13 100 H 28 H 92 05/04/23 13:11 230/79 H 05/04/23 13:11 97 H 28 H 92 05/04/23 13:08 235/78 H 05/04/23 13:08 94 H 28 H 92 05/04/23 13:06 96 H 28 H 92 05/04/23 13:06 241/79 H 05/04/23 13:03 236/84 H 05/04/23 13:03 94 H 28 H 94 05/04/23 13:01 217/92 H 05/04/23 13:01 97 H 22 92 05/04/23 13:00 90 28 H 94 05/04/23 12:58 211/72 H 05/04/23 12:58 92 H 28 H 94 05/04/23 12:56 93 H 28 H 93 05/04/23 12:56 242/94 H 05/04/23 12:53 218/85 H 05/04/23 12:53 85 21 92 05/04/23 12:51 223/88 H 05/04/23 12:51 82 24 88 L 05/04/23 12:48 213/81 H 05/04/23 12:48 88 8 L 84 L 05/04/23 12:46 193/90 H 05/04/23 12:46 90 14 89 L 05/04/23 12:43 187/83 H 05/04/23 12:43 71 16 99 05/04/23 12:42 70 25 H 100 05/04/23 16:00 70 05/04/23 15:00 05/04/23 12:45 05/04/23 14:52 05/04/23 14:30 80 32 H 97 05/04/23 12:50 92 H 28 H 94 Mechanical Vent 05/04/23 12:50 92 H 28 H 94 05/04/23 10:18 CPAP 05/04/23 08:00 78 05/04/23 07:40 76 18 90 High Flow Nasal Cannula 50 FiO2 05/04/23 19:20 55 05/04/23 19:20 55 05/04/23 18:15 55 05/04/23 18:01 05/04/23 18:01 05/04/23 18:00 05/04/23 17:31 05/04/23 17:31 05/04/23 17:30 05/04/23 17:01 05/04/23 17:01 05/04/23 17:00 05/04/23 16:31 05/04/23 16:31 05/04/23 16:30 05/04/23 16:01 05/04/23 16:01 05/04/23 16:00 05/04/23 15:36 05/04/23 15:36 05/04/23 18:00 55 05/04/23 16:09 55 05/04/23 12:00 05/04/23 12:00 05/04/23 11:30 05/04/23 11:00 05/04/23 11:00 05/04/23 10:30 05/04/23 10:00 05/04/23 10:00 05/04/23 09:30 05/04/23 09:01 05/04/23 09:01 05/04/23 09:00 05/04/23 08:45 05/04/23 08:45 05/04/23 08:30 05/04/23 08:00 05/04/23 15:31 05/04/23 15:31 05/04/23 15:15 05/04/23 15:15 05/04/23 15:01 05/04/23 15:01 05/04/23 15:00 05/04/23 14:46 05/04/23 14:46 05/04/23 14:33 05/04/23 14:33 05/04/23 14:16 05/04/23 14:16 05/04/23 14:01 05/04/23 14:01 05/04/23 14:00 05/04/23 13:46 05/04/23 13:46 05/04/23 13:31 05/04/23 13:31 05/04/23 13:16 05/04/23 13:16 05/04/23 13:13 05/04/23 13:13 05/04/23 13:11 05/04/23 13:11 05/04/23 13:08 05/04/23 13:08 05/04/23 13:06 05/04/23 13:06 05/04/23 13:03 05/04/23 13:03 05/04/23 13:01 05/04/23 13:01 05/04/23 13:00 05/04/23 12:58 05/04/23 12:58 05/04/23 12:56 05/04/23 12:56 05/04/23 12:53 05/04/23 12:53 05/04/23 12:51 05/04/23 12:51 05/04/23 12:48 05/04/23 12:48 05/04/23 12:46 05/04/23 12:46 05/04/23 12:43 05/04/23 12:43 05/04/23 12:42 05/04/23 16:00 05/04/23 15:00 55 05/04/23 12:45 100 05/04/23 14:52 60 05/04/23 14:30 50 05/04/23 12:50 100 05/04/23 12:50 100 05/04/23 10:18 100 05/04/23 08:00 06/22/23 07:40 100 Laboratory Results Laboratory Results - last 48 hr 05/01/23 05/01/23 05/03/23 08:17 13:00 07:58 WBC RBC Hgb POC Hgb Hct POC Hct MCV MCH MCHC RDW Std Deviation RDW Coeff of Diane Plt Count MPV Immature Gran % (Auto) Neut % (Auto) Lymph % (Auto) Bay % (Auto) Eos % (Auto) Baso % (Auto) Neut # (Auto) Lymph # (Auto) Bay # (Auto) Eos # (Auto) Baso # (Auto) Immature Gran # (Auto) Sample Site POC pH POC pCO2 POC pO2 POC HCO3 POC Total CO2 POC Base Excess ABG pH (Temp Correct) ABG pCO2 (Temp Corrct POC ABG pO2 at Pt Temp POC ABG O2 Sat Estevan Test O2 Delivery Device POC O2 Rate POC FiO2 Tidal Volume PEEP POC Sodium Sodium POC Potassium Potassium Chloride Carbon Dioxide Anion Gap BUN Creatinine Est Cr Clr Drug Dosing Est GFR ( Amer) Est GFR (Non-Af Amer) BUN/Creatinine Ratio Glucose POC Glucose 121 H Lactate Calcium Phosphorus Magnesium C-Reactive Protein B-Natriuretic Peptide Albumin Triglycerides Procalcitonin Random Vancomycin Urine Legionella Ag SEE NOTE Beta-(1,3)-D-Glucan <31 B-(1,3)-D-Glucan Intrp NEGATIVE 05/03/23 05/03/23 05/03/23 12:14 16:30 17:14 WBC RBC Hgb POC Hgb Hct POC Hct MCV MCH MCHC RDW Std Deviation RDW Coeff of Diane Plt Count MPV Immature Gran % (Auto) Neut % (Auto) Lymph % (Auto) Bay % (Auto) Eos % (Auto) Baso % (Auto) Neut # (Auto) Lymph # (Auto) Bay # (Auto) Eos # (Auto) Baso # (Auto) Immature Gran # (Auto) Sample Site POC pH POC pCO2 POC pO2 POC HCO3 POC Total CO2 POC Base Excess ABG pH (Temp Correct) ABG pCO2 (Temp Corrct POC ABG pO2 at Pt Temp POC ABG O2 Sat Estevan Test O2 Delivery Device POC O2 Rate POC FiO2 Tidal Volume PEEP POC Sodium Sodium 141 POC Potassium Potassium 5.3 H Chloride 108 H Carbon Dioxide 28 Anion Gap 5 BUN 54 H Creatinine 1.21 Est Cr Clr Drug Dosing 81.4 Est GFR ( Amer) 77.1 Est GFR (Non-Af Amer) 66.5 BUN/Creatinine Ratio 44.6 H Glucose 127 H POC Glucose 133 H 130 H Lactate Calcium 8.4 L Phosphorus Magnesium C-Reactive Protein 6.36 H B-Natriuretic Peptide Albumin Triglycerides 199 H Procalcitonin Random Vancomycin Urine Legionella Ag Beta-(1,3)-D-Glucan B-(1,3)-D-Glucan Intrp 05/03/23 05/03/23 05/03/23 17:14 17:14 17:14 WBC RBC Hgb POC Hgb Hct POC Hct MCV MCH MCHC RDW Std Deviation RDW Coeff of Diane Plt Count MPV Immature Gran % (Auto) Neut % (Auto) Lymph % (Auto) Bay % (Auto) Eos % (Auto) Baso % (Auto) Neut # (Auto) Lymph # (Auto) Bay # (Auto) Eos # (Auto) Baso # (Auto) Immature Gran # (Auto) Sample Site POC pH POC pCO2 POC pO2 POC HCO3 POC Total CO2 POC Base Excess ABG pH (Temp Correct) ABG pCO2 (Temp Corrct POC ABG pO2 at Pt Temp POC ABG O2 Sat Estevan Test O2 Delivery Device POC O2 Rate POC FiO2 Tidal Volume PEEP POC Sodium Sodium POC Potassium Potassium Chloride Carbon Dioxide Anion Gap BUN Creatinine Est Cr Clr Drug Dosing Est GFR ( Amer) Est GFR (Non-Af Amer) BUN/Creatinine Ratio Glucose POC Glucose Lactate 1.4 Calcium Phosphorus Magnesium C-Reactive Protein B-Natriuretic Peptide 441 H Albumin Triglycerides Procalcitonin 0.35 Random Vancomycin Urine Legionella Ag Beta-(1,3)-D-Glucan B-(1,3)-D-Glucan Intrp 05/03/23 05/03/23 05/04/23 18:06 20:02 04:44 WBC RBC Hgb POC Hgb 10.5 L Hct POC Hct 31 L MCV MCH MCHC RDW Std Deviation RDW Coeff of Diane Plt Count MPV Immature Gran % (Auto) Neut % (Auto) Lymph % (Auto) Bay % (Auto) Eos % (Auto) Baso % (Auto) Neut # (Auto) Lymph # (Auto) Bay # (Auto) Eos # (Auto) Baso # (Auto) Immature Gran # (Auto) Sample Site R Radial POC pH 7.44 POC pCO2 42 POC pO2 63 L POC HCO3 28 H POC Total CO2 29 POC Base Excess 4.0 H ABG pH (Temp Correct) 7.437 ABG pCO2 (Temp Corrct 42 POC ABG pO2 at Pt Temp 63 POC ABG O2 Sat 93.0 Estevan Test Pass O2 Delivery Device Hi Jarrett Can POC O2 Rate POC FiO2 100 Tidal Volume PEEP POC Sodium 140 Sodium POC Potassium 5.5 H Potassium Chloride Carbon Dioxide Anion Gap BUN Creatinine Est Cr Clr Drug Dosing Est GFR ( Amer) Est GFR (Non-Af Amer) BUN/Creatinine Ratio Glucose POC Glucose 130 H Lactate Calcium Phosphorus Magnesium C-Reactive Protein B-Natriuretic Peptide Albumin Triglycerides Procalcitonin Random Vancomycin 13.8 Urine Legionella Ag Beta-(1,3)-D-Glucan B-(1,3)-D-Glucan Intrp 05/04/23 05/04/23 05/04/23 04:44 04:46 04:46 WBC 9.64 RBC 3.57 L Hgb 9.9 L POC Hgb Hct 32.6 L POC Hct MCV 91.3 MCH 27.7 MCHC 30.4 L RDW Std Deviation 56.7 H RDW Coeff of Diane 17.1 H Plt Count 237 MPV 9.8 Immature Gran % (Auto) 1.7 Neut % (Auto) 85.2 Lymph % (Auto) 7.3 Bay % (Auto) 5.6 Eos % (Auto) 0.0 Baso % (Auto) 0.2 Neut # (Auto) 8.22 H Lymph # (Auto) 0.70 L Bay # (Auto) 0.54 Eos # (Auto) 0.00 Baso # (Auto) 0.02 Immature Gran # (Auto) 0.16 Sample Site POC pH POC pCO2 POC pO2 POC HCO3 POC Total CO2 POC Base Excess ABG pH (Temp Correct) ABG pCO2 (Temp Corrct POC ABG pO2 at Pt Temp POC ABG O2 Sat Estevan Test O2 Delivery Device POC O2 Rate POC FiO2 Tidal Volume PEEP POC Sodium Sodium 142 141 POC Potassium Potassium 5.1 5.1 Chloride 109 H 108 H Carbon Dioxide 28 28 Anion Gap 5 5 BUN 58 H 56 H Creatinine 1.36 1.35 Est Cr Clr Drug Dosing 72.4 72.9 Est GFR ( Amer) 66.9 67.5 Est GFR (Non-Af Amer) 57.8 58.3 BUN/Creatinine Ratio 42.6 H 41.5 H Glucose 114 H 116 H POC Glucose Lactate Calcium 8.5 L 8.9 Phosphorus 3.1 3.0 Magnesium 2.6 H 2.6 H C-Reactive Protein B-Natriuretic Peptide Albumin 3.0 L Triglycerides Procalcitonin Random Vancomycin Urine Legionella Ag Beta-(1,3)-D-Glucan B-(1,3)-D-Glucan Intrp 05/04/23 05/04/23 05/04/23 07:24 11:07 14:10 WBC RBC Hgb POC Hgb 11.6 L Hct POC Hct 34 L MCV MCH MCHC RDW Std Deviation RDW Coeff of Diane Plt Count MPV Immature Gran % (Auto) Neut % (Auto) Lymph % (Auto) Bay % (Auto) Eos % (Auto) Baso % (Auto) Neut # (Auto) Lymph # (Auto) Bay # (Auto) Eos # (Auto) Baso # (Auto) Immature Gran # (Auto) Sample Site Art Line POC pH 7.10 L* POC pCO2 104 H POC pO2 76 L POC HCO3 33 H POC Total CO2 36 H POC Base Excess 3.0 H ABG pH (Temp Correct) 7.108 L* ABG pCO2 (Temp Corrct 102 H POC ABG pO2 at Pt Temp 75 POC ABG O2 Sat 88.0 L Estevan Test NA O2 Delivery Device Ventilator POC O2 Rate 28 POC FiO2 85 Tidal Volume 280 PEEP 16 POC Sodium 145 H Sodium POC Potassium 5.6 H Potassium Chloride Carbon Dioxide Anion Gap BUN Creatinine Est Cr Clr Drug Dosing Est GFR ( Amer) Est GFR (Non-Af Amer) BUN/Creatinine Ratio Glucose POC Glucose 112 H 108 H Lactate Calcium Phosphorus Magnesium C-Reactive Protein B-Natriuretic Peptide Albumin Triglycerides Procalcitonin Random Vancomycin Urine Legionella Ag Beta-(1,3)-D-Glucan B-(1,3)-D-Glucan Intrp 05/04/23 05/04/23 05/04/23 15:05 16:02 16:08 WBC 24.43 H D RBC 3.70 L Hgb 10.3 L POC Hgb 11.2 L Hct 34.1 L POC Hct 33 L MCV 92.2 MCH 27.8 MCHC 30.2 L RDW Std Deviation 57.7 H RDW Coeff of Diane 17.2 H Plt Count 284 MPV 9.6 Immature Gran % (Auto) 1.6 Neut % (Auto) 89.7 Lymph % (Auto) 3.8 Bay % (Auto) 4.8 Eos % (Auto) 0.0 Baso % (Auto) 0.1 Neut # (Auto) 21.91 H Lymph # (Auto) 0.92 L Bay # (Auto) 1.18 H Eos # (Auto) 0.01 Baso # (Auto) 0.03 Immature Gran # (Auto) 0.38 H Sample Site Art Line POC pH 7.19 L* POC pCO2 76 H POC pO2 79 L POC HCO3 29 H POC Total CO2 31 POC Base Excess 1.0 ABG pH (Temp Correct) 7.196 L* ABG pCO2 (Temp Corrct 75 H POC ABG pO2 at Pt Temp 77 POC ABG O2 Sat 91.0 Estevan Test NA O2 Delivery Device Ventilator POC O2 Rate 32 POC FiO2 55 Tidal Volume 350 PEEP 16 POC Sodium 142 Sodium POC Potassium 5.8 H Potassium Chloride Carbon Dioxide Anion Gap BUN Creatinine Est Cr Clr Drug Dosing Est GFR ( Amer) Est GFR (Non-Af Amer) BUN/Creatinine Ratio Glucose POC Glucose 155 H Lactate Calcium Phosphorus Magnesium C-Reactive Protein B-Natriuretic Peptide Albumin Triglycerides Procalcitonin Random Vancomycin Urine Legionella Ag Beta-(1,3)-D-Glucan B-(1,3)-D-Glucan Intrp 05/04/23 17:51 WBC RBC Hgb POC Hgb 10.9 L Hct POC Hct 32 L MCV MCH MCHC RDW Std Deviation RDW Coeff of Diane Plt Count MPV Immature Gran % (Auto) Neut % (Auto) Lymph % (Auto) Bay % (Auto) Eos % (Auto) Baso % (Auto) Neut # (Auto) Lymph # (Auto) Bay # (Auto) Eos # (Auto) Baso # (Auto) Immature Gran # (Auto) Sample Site Art Line POC pH 7.22 L POC pCO2 69 H POC pO2 78 L POC HCO3 28 H POC Total CO2 30 POC Base Excess 1.0 ABG pH (Temp Correct) 7.226 L ABG pCO2 (Temp Corrct 68 H POC ABG pO2 at Pt Temp 76 POC ABG O2 Sat 92.0 Estevan Test NA O2 Delivery Device Ventilator POC O2 Rate 35 POC FiO2 55 Tidal Volume 350 PEEP 16 POC Sodium 141 Sodium POC Potassium 6.0 H Potassium Chloride Carbon Dioxide Anion Gap BUN Creatinine Est Cr Clr Drug Dosing Est GFR ( Amer) Est GFR (Non-Af Amer) BUN/Creatinine Ratio Glucose POC Glucose Lactate Calcium Phosphorus Magnesium C-Reactive Protein B-Natriuretic Peptide Albumin Triglycerides Procalcitonin Random Vancomycin Urine Legionella Ag Beta-(1,3)-D-Glucan B-(1,3)-D-Glucan Intrp PG Care Time/CCT Total # of Minutes Spent Total Time Spent with Patient: Total time spent is greater than 50% in coordination of care (as documented) at patient's floor/unit and/or counseling patient: Coding Level of Care Code None Diagnoses Acute respiratory failure with hypoxia and hypercapnia J96.01; J96.02 ARDS (adult respiratory distress syndrome) J80 Viral pneumonitis J12.9 Coronavirus infection B34.2 Chronic diastolic congestive heart failure I50.32 Diabetic ulcer of right heel E11.621; L97.419 Osteomyelitis of right foot M86.9 WHIT (obstructive sleep apnea) G47.33 Poorly controlled diabetes mellitus E11.65 Morbid obesity E66.01 Agitation R45.1
[2023-05-04 20:09] LABS: iSTAT Art Bld Gas pCO2 Correct 63 mmHg (35-46); iSTAT Art Bld Gas pH Corrected 7.253 (7.35-7.45); iSTAT Arterial Blood Gas HCO3 29 meg/L (19-24); iSTAT Arterial Blood Gas pCO2 69 mmHg (35-46); iSTAT Arterial Blood Gas pH 7.22 (7.35-7.45); iSTAT Arterial Blood Gas pO2 66 mmHg (80-95); iSTAT Arterial Blood Gas pO2 C 56; iSTAT Carbon Dioxide 31 mmol/L (24-31); iSTAT FiO2 55 %; iSTAT Hematocrit 31 % (42-52); iSTAT Hemoglobin 10.5 g/dl (14.0-18.0); iSTAT Site Art Line; iSTAT Sodium 141 mmol/L (135-144)
[2023-05-04] MEDS ORDERED: Nursing to Pharmacy Communication SCH (20:45)
[2023-05-04 20:47] LABS: BUN Creatinine Ratio 47.6 (10-20); Calcium 7.8 mg/dl (8.6-10.3); Creatinine Clr Calc Pharmacy 68.9 ml/min; Est GFR (Non-African American) 54.4 ml/min
[2023-05-04] MEDS ORDERED: LANTUS PER UNIT CHARGE SQ ONE (21:00)
[2023-05-04] MEDS ORDERED: PANTOprazole 40 MG in SYRINGE 0 ML IV SCH (21:00)
[2023-05-04] MEDS: ATORVASTATIN 40 MG TAB PO SCH (21:49)
[2023-05-04] MEDS: rOPINIRole HCL 0.25 MG TABLET PO SCH (21:49)
[2023-05-04] MEDS ORDERED: BUMETANIDE 0.5 MG in SYRINGE 0 ML IV ONE (22:30)
[2023-05-04 23:02] LABS: Potassium 6.1 mmol/L (3.5-5.1)
[2023-05-04] MEDS ORDERED: CALCIUM GLUCONATE 10% 1,000 MG in DEXTROSE 5% 50 ML IV ONE (23:02)
[2023-05-04] MEDS: ALBUT/IPRATROP 3MG/0.5MG NEB 3 ML VIAL NEB PRN (23:05)
[2023-05-04] MEDS ORDERED: BUMETANIDE 1 MG in SYRINGE 0 ML IV ONE (23:15)
[2023-05-04 23:40] LABS: iSTAT Art Bld Gas pCO2 Correct 71 mmHg (35-46); iSTAT Art Bld Gas pH Corrected 7.184 (7.35-7.45); iSTAT Arterial Blood Gas HCO3 27 meg/L (19-24); iSTAT Arterial Blood Gas pCO2 78 mmHg (35-46); iSTAT Arterial Blood Gas pH 7.15 (7.35-7.45); iSTAT Arterial Blood Gas pO2 68 mmHg (80-95); iSTAT Arterial Blood Gas pO2 C 58; iSTAT Carbon Dioxide 30 mmol/L (24-31); iSTAT FiO2 50 %; iSTAT Hematocrit 30 % (42-52); iSTAT Hemoglobin 10.2 g/dl (14.0-18.0); iSTAT Site Art Line; iSTAT Sodium 140 mmol/L (135-144)
[2023-05-04] MEDS ORDERED: ALBUMIN 5% 250 ML IV ONE (23:50)
[2023-05-05] MEDS ORDERED: INSULIN PROTOCOL GOAL RANGE ONE (00:08)
[2023-05-05] MEDS ORDERED: STAT IV STA (00:08)
[2023-05-05] MEDS ORDERED: SODIUM ZIRCONIUM CYCLOSILICATE 10 GM PACKET PO ONE (00:15)
--- NOTE | 2023-05-05 00:15 | Discharge Summary ---
Date of Service May 05, 2023 Admission HPI Per Admitting Provider Reid Swartz is a 57yo male with multiple medical comorbidities to include chronic diastolic CHF, CKD, DM, Depression, HLP, GERD, HTN, PAD. Patient was recently admitted to [facility] from 04/24/23 - 04/29/23 with acute hypoxic respiratory failure secondary to viral PNA and anemia as well as osteomyelitis of the right foot. Patient was treated with steroids as well as antibiotics during his stay. He was transfused with 1u PRBCs as well. He returned to [facility] on 04/29/23. Shortly after retrning to [facility] he became acutely short of breath after using the urinal. He checked his oxygen saturation at that time and he was 62% on room air. He denies fever, chills. He has a persistent cough that is dry. Chronic bilateral LE edema unchanged. Patient placed on rescue BiPAP in the ER and administered Lasix 80mg IV. He feels markedly improved. Presently on BiPAP 10/5, 50% FiO2. Breathing comfortably with adequate oxygenation. Speaking in complete sentences. ER Course: Lasix 80mg IV Discharge Data Consultations 04/30/23 03:21 ED Decision to Admit Stat 05/01/23 10:48 Consult Pulmonology Routine 05/01/23 11:31 Consult Nephrology Routine 05/03/23 08:16 Consult Psychiatry Stat Procedures Performed INTUBATION PROCEDURE NOTE: Dr. Al Donato A time-out was completed verifying correct patient, procedure, site, positioning. Patient was evaluated and required intubation for acute hypoxemic respiratory failure. Sedative agent used: 30 mg at home and Paralysis agent used: 50 mg rocuronium Consent signed and placed on chart. Number of attempts: 1 Grade view: 1 The patient was prepared in the appropriate fashion. Sedation was achieved utilizing etomidate and rocuronium. The patient was easily ventilated using [id number] to achieve adequate oxygenation. A 8 Setswana endotracheal tube was placed under glide scope to 24 cm at the lip. The stylette was removed and balloon was inflated with 10mL of air. Appropriate Colorimetric change was appreciated. Bilateral breath sounds were heard without air sounds in the abdomen. Post Intubation Chest X-ray ordered and ET tube was appropriately placed. No evidence of pneumothorax. Patient tolerated the procedure well and there were no immediate complications. Coding CPT Codes Resuscitation - Resuscitation: 18643 Endotracheal Intubation, emergency ([id number]) Procedure Note Date of Service May 04, 2023 Note Right axillaryARTERIAL LINE PROCEDURE NOTE: Procedure: Right axillary arterial Line Placement Indication: Monitoring on Pressors Anesthesia: Continuous propofol was infusing at the time of the procedure. Consent was signed and placed on the chart prior to procedure. Indication, risks, and benefits were explained at length. A time-out was completed verifying correct patient, procedure, site, positioning, and implant(s) or special equipment if applicable. Patients right axillary region was prepped and draped in the usual sterile fashion. Ultrasound guidance was used to aid needle placement. A 20g Arrow arterial line was introduced into the right axillary artery. Catheter was threaded, and the needle was removed with appropriate blood return. Good waveform was observed. The patient tolerated the procedure well. Blood Loss: Minimal Complications: None Coding CPT Codes Tubes, Drains, and Vasc Access - Tubes, Drains, and Vasc Access: [id number] Arterial Cath/Cannulation Sampling/Monitoring/Transfusion ([id number]) [facility] [place] Procedure Codes (Charges) Tubes, Drains, and Vasc Access Procedure 1: Tubes, Drains, and Vasc Access: [id number] Arterial Cath/Cannulation Sampling/Monitoring/Transfusion Procedure Note Date of Service May 04, 2023 Note RightINTERNAL JUGULAR CENTRAL LINE PROCEDURE NOTE: Procedure: Internal Jugular Central Line Placement Indication: Central Drug Administration, Poor Venous Access, Multiple Lab Draws Necessary, etc. Anesthesia: Continuous propofol was infusing at the time of the procedure/5 ml Lidocaine 1% Procedure was done emergently and consent was implied. A time-out was completed verifying correct patient, procedure, site, positioning, and implants(s) or special equipment if applicable. Patients right neck was cleansed and draped in the typical sterile fashion using Chloraprep. The Internal Jugular Vein and Carotid Artery were identified using ultrasound. The superficial tissue was anesthetized using 5 mL of 1% lidocaine without epinephrine under direct visualization with the ultrasound. After adequate anesthetization was achieved, the Internal Jugular vein was cannulated under direct ultrasound guidance using an introducer needle on a syringe. Good venous blood return was maintained prior to removal of syringe from introducer needle. Using Seldinger Technique, a guide wire was advanced through the introducer needle without resistance. The introducer needle was removed and ultrasound images were obtained of the guide wire within the Internal Jugular Vein and saved to the patients medical record. A small incision was made in penetrating fashion at the guide wire insertion site utilizing an 11 blade scalpel. The dilator was advanced to the vessel without resistance. The dilator was exchanged for the triple lumen catheter which was advanced into the vessel without resistance. The guide wire was removed intact from the catheter without issue. Claves were placed on each catheter tip with confirmation of good blood flow from each lumen. Each port was easily flushed with sterile saline. The catheter was placed at 16 cm and sut[address] in place. BioPatch was applied to the catheter and a sterile Tegaderm dressing was applied over the catheter with careful attention to sterility. Patient tolerated procedure well. No immediate complications were met. Post procedure x-ray was completed, placement was appropriate and no pneumot horax was noted. Coding CPT Codes Tubes, Drains, and Vasc Access - Tubes, Drains, and Vasc Access: [id number] Place catheter in vein superior or inferior vena cava ([id number]) Tubes, Drains, and Vasc Access - Tubes, Drains, and Vasc Access: [id number] Ultrasonic Guide For Needle Placement ([id number]) [facility] [place] Procedure Codes (Charges) Tubes, Drains, and Vasc Access Procedure 1: Tubes, Drains, and Vasc Access: [id number] Place catheter in vein superior or inferior vena cava Procedure 2: Tubes, Drains, and Vasc Access: [id number] Ultrasonic Guide For Needle Placement Hospital Course (1) Acute respiratory failure with hypoxia: 2nd to ARDS in the setting of viral pneumonitis (non-COVID19 coronavirus on recent respiratory BioFire). Cont HFNC daytime; CPAP HS and naps. Cont diuresis. Cont steroids, abx, etc. (2) ARDS (adult respiratory distress syndrome): 2nd viral pneumonitis (non-COVID coronavirus) cannot exclude a component of acute/chronic diastolic CHF steroid dose increased today by critical care cont diuresis cont abx to cover for superimposed bacterial process (3) Viral pneumonitis: as above on cefepime + zithromax to cover for possible bacterial superinfection (4) Coronavirus infection: as above non-COVID19 strain (5) Chronic diastolic congestive heart failure: defer diuretic management to nephrology & collar tacker to keep I/O balance net negative (6) Diabetic ulcer of right heel: cont wound vac appreciate wound care assistance (7) Osteomyelitis of right foot: cont wound vac previous intra-op cultures from prior hospitalization with MRSA, enterococcus, and e.coli (8) WHIT (obstructive sleep apnea): CPAP HS and naps (9) Poorly controlled diabetes mellitus: a1c nearly 10% in March 2023 glycemic control via ICU glycemic protocol BSGs remain acceptable (10) Morbid obesity: BMI 41 (11) Agitation: appreciate psych consultation defer Rx to collar tacker & psych suspect ICU psychosis, steroid psychosis, lack of sleep, etc all contributing Plan constipation - ongoing - cont miralax + senna; consider dulcolax suppos DVT Proph - lovenox 40mg BID 2 daughters updated at bedside Coding Level of Care Code 84672 INP/OBS DISCH >30 MIN Medical Decision Making High Complexity Diagnoses Acute respiratory failure with hypoxia J96.01 ARDS (adult respiratory distress syndrome) J80 Viral pneumonitis J12.9 Coronavirus infection B34.2 Chronic diastolic congestive heart failure I50.32 Diabetic ulcer of right heel E11.621; L97.419 Osteomyelitis of right foot M86.9 WHIT (obstructive sleep apnea) G47.33 Poorly controlled diabetes mellitus E11.65 Morbid obesity E66.01 Agitation R45.1 Time Spent (min) 40 Comment Critical Care time
[2023-05-05] MEDS ORDERED: ALBUT/IPRATROP 3MG/0.5MG NEB 3 ML VIAL NEB ONE (00:26)
[2023-05-05] MEDS ORDERED: INSULIN HUMAN REGULAR IV BOLUS 4.5 UNITS in SYRINGE 0 ML IV ONE (00:30)
[2023-05-05] MEDS ORDERED: INSULIN REGULAR 250 UNITS in SODIUM CHLORIDE 0.9% 247.5 ML IV SCH (00:30)
--- NOTE | 2023-05-05 00:31 | Communication Note ---
Date of Service: May 05, 2023 Patient remains with severe ARDS with remaining difficulties of ventilation and oxygenating. He remains on High PEEP and Low VT complicating his acidosis. He has since had decrease in urine output with worsening of his hyperkalemia despite IVF and diuretic administration. His Nicardipine drip has been off allowing for higher MAPS to assist with renal perfusion. As his acid base status is multifactorial have reached out to [facility] [place] for transfer for CRRT and/or ECMO possibility. Will provide albumin for volume, for his hyperkalemia- give Lokelma, calcium gluconate, will also start on insulin drip for his hyperglycemia that is not responding to his subq dosing Have adjust his VT for his hypercarbia, his PEEP remains at 16 and FIo2 of 55% with PaO2- in line with ARDSnet- unfortunately his Pplt remains at 29-32 despite sedation and paralytics and prone positioning. Have discussed the case with [facility] [place]- ECMO/CT surgeon/and MICU admitting phsyicians. They have agreed to accept the patient to the MICU for CRRT and evaluation of ECMO if a possiblity. Accepting Physician is Dr. Castro Consulting ECMO- Dr. Brizuela Patient accepted to MICU 2872- Patient will be going via air ambulance helicopter. Ty PURVIS ([facility]-) Coding Level of Care Code None
[2023-05-05] MEDS ORDERED: PIPERACILLIN/TAZOBACTAM 4.5 GM in DEXTROSE 5% 100 ML IV SCH (01:00)
[2023-05-05 02:13] LABS: iSTAT Arterial Blood Gas HCO3 26 meg/L (19-24); iSTAT Arterial Blood Gas pCO2 69 mmHg (35-46); iSTAT Arterial Blood Gas pH 7.18 (7.35-7.45); iSTAT Arterial Blood Gas pO2 86 mmHg (80-95); iSTAT Carbon Dioxide 28 mmol/L (24-31); iSTAT FiO2 55 %; iSTAT Site Art Line
[2023-05-05] MEDS: PANTOprazole 40 MG in DEXTROSE 5% 100 ML IV SCH (02:17)
[2023-05-05] MEDS: propofoL 1,000 MG/100 ML VIAL IV SCH (02:17)
[2023-05-05] MEDS ORDERED: fentaNYL citrate 100 MCG/2 ML CARP IV ONE (03:39)
[2023-05-05] MEDS ORDERED: ETOMIDATE 2 MG/ML 20 ML VIAL IV ONE (03:39)
[2023-05-05] MEDS ORDERED: ROCURONIUM BROMIDE 10 MG/ML 5 ML VIAL IV ONE (03:39)
[2023-05-05] MEDS ORDERED: INSULIN ASPART PER UNIT CHARGE SC SCH ×2 (07:30)
--- NOTE | 2023-05-05 15:20 | Electrocardiogram Report ---
Test Reason : Blood Pressure : / mmHG Vent. Rate : 094 BPM Atrial Rate : 094 BPM P-R Int : 170 ms QRS Dur : 098 ms QT Int : 378 ms P-R-T Axes : 032 -36 058 degrees QTc Int : 472 ms Normal sinus rhythm with sinus arrhythmia Left axis deviation Abnormal ECG When compared with ECG of 30-APR-2023 01:08, No significant change was found Confirmed by Malik Paulino ([id number]) on 05/05/2023 3:20:00 PM Referred By: REFERRED SELF Confirmed By:Malik Paulino
== END 2023-05-05 03:40 | disposition short-term general hospital (02) | DRG 208 ==
LOC: ED 01:04 → 2S 03:42 → SUATTDRO 03:42 → 2S 04:40 → 1E 05-01 13:05